=== PATIENT | female | born 1965 | race Caucasian/White ===

== ENCOUNTER → 2016-07-23 | Outpatient (CLI) | payer MEDICAID ==
[~2016-07-23] MED LIST: ACAI; ALBU0.63 IH; ALBU2.5V4 IH; ATOR20TA66 PO; ATR20T PO; ATRV10T PO; BPR150TCR; COMBIVENT; CYCL10TA45; CYCL10TA9 PO; DICL50TA6 PO; DICLOFENAC 50MG; DICY20TA10 PO; DULO30CA48 PO; DULO60CA58 PO; EST.625T; EST5V5 IM; ESTR0.5T PO; ESTR10TA VG; GABA300T23 PO; GBPN300C; GBPN300C PO; HCT; HORMONE SHOT; HSCO125; HYDR-3816 PO; HYDR118S10 PO; HYOS0.1281 SL; IPRA4AER IH; LANS30CA PO; LANS30TA4 PO; LD5PT TP; LIPA1CAP2 PO; LNS30CCR; LORA10TA7 PO; LOSA1TAB69 PO; LOSA50TA36 PO; LRT10T; METH4TAB PO; METO-354 PO; MICARDIS; MTF500T; MTP25TSR; OMEG1CAP58; OMG1KC PO; ONDA4SOL2 PO; ONDN4T PO; PANT20TA3 PO; PNV1CAPS13 PO; PRED1DRO OD; PREG75CA PO; PREN-93 PO; PROM25TA14 PO; RT-COMBINH IH; SCR1T1 PO; SMTR50T; SMTR50T PO; SUCR1TAB PO; TELM1TAB2 PO; TELM40T PO; TIZA2TAB3 PO; ZLP10T; ZOLP10TA5 PO; [UNRECOGNIZED DRUG - CODE] PO; [UNRECOGNIZED DRUG - OTHER]
--- NOTE | 2016-07-23 19:46 | Diagnostic Imaging Report ---
Digital mammogram bilateral diagnostic. INDICATION: Left breast lump. This study was compared to the prior exams of 07/18/15, 07/10/14 and 06/06/13. At this time, the patient does complain of a lump in the left breast. The current study was also evaluated with a Computer Aided Detection (CAD) system. FINDINGS: A marker was placed over the area of concern. There is no primary or secondary sign of malignancy in this region. There are scattered fibroglandular densities in the left breast which could obscure a lesion, however. Ultrasound would be recommended for further study. There are also scattered fibroglandular densities in the right breast. These too could obscure a lesion. When compared to the previous study, there does not appear to have been any significant change. There is no primary or secondary sign of malignancy noted. Reportedly, ultrasound of the right breast has also been scheduled for further evaluation. IMPRESSION: There is no evidence of malignancy. Ultrasound of both breasts is pending for further study. ACR BI-RADS Category 0: Incomplete. (Needs additional imaging evaluation). Result letter will be mailed to the patient. Note: At least 10% of breast cancer is not imaged by mammography. Dictated by: Dictated on workstation # [id number]
--- NOTE | 2016-07-27 20:23 | Diagnostic Imaging Report ---
EXAM: Bilateral breast ultrasound. INDICATION: Left breast mass. By history, the patient has a palpable abnormality in the left breast. The diagnostic mammogram performed earlier today failed to show any sign of malignancy in this region. On this exam, there is no discrete solid or cystic mass within the left breast. It may be that the palpable abnormality in question is related to the fibroglandular tissue in the left breast. However, if there is indeed a clinically palpable mass present, then biopsy should still be considered. The previous right breast ultrasound exam performed on 06/21/12 suggested a 1.5 x 0.6 cm benign-appearing cyst in the 10 o'clock position of the right breast. That finding was not visualized on the subsequent ultrasound exam of 07/10/14. On this study, there is no discrete solid or cystic mass within the right breast. IMPRESSION: There is no evidence for malignancy. Clinical followup is recommended. ACR BI-RADS Category 1: Negative. Result letter will be mailed to the patient. Note: At least 10% of breast cancer is not imaged by mammography. Dictated by: Dictated on workstation # [id number]
== END ==
LOC: RAD 09:10
PROVIDERS: ATTEND Obstetrics & Gynecology
DX: N63 Unspecified lump in breast (principal)
CPT/HCPCS: 77066

== ENCOUNTER → 2016-10-21 | Outpatient (CLI) | payer MEDICAID ==
[2016-10-21 10:20] LABS: ALANINE AMINOTRANSFERASE 24 U/L (0-55); ALBUMIN 3.8 G/DL (3.2-4.5); ANION GAP 8 MMOL/L (5-14); ASPARTATE AMINO TRANSFERASE 29 U/L (5-34); BILIRUBIN,TOTAL 0.3 MG/DL (0.1-1.0); BLOOD UREA NITROGEN 9 MG/DL (7-18); BUN/CREATININE RATIO 10; CALCIUM 9.1 MG/DL (8.5-10.1); CARBON DIOXIDE 37 MMOL/L (21-32); CHLORIDE 98 MMOL/L (98-107); CHOLESTEROL 118 MG/DL (< 200); CREATININE SERUM 0.93 MG/DL (0.60-1.30); DIRECT LDL 56 MG/DL (1-129); GFR ESTIMATED > 60; GLUCOSE 114 MG/DL (70-105); POTASSIUM 2.8 MMOL/L (3.6-5.0); SODIUM 143 MMOL/L (135-145); TOTAL PROTEIN 6.8 G/DL (6.4-8.2); TRIGLYCERIDES 96 MG/DL (<150); VLDL CHOLESTEROL 19 MG/DL (5-40)
== END ==
LOC: LAB 09:31
PROVIDERS: ATTEND Internal Medicine Cardiovascular Disease
DX: E11.9 Type 2 diabetes mellitus without complications (principal); I10 Essential (primary) hypertension; E78.4 Other hyperlipidemia
CPT/HCPCS: 36415; 80053; 80061

== ENCOUNTER → 2016-11-23 | Outpatient (CLI) | payer MEDICAID ==
[2016-11-23 12:01] LABS: ALANINE AMINOTRANSFERASE 15 U/L (0-55); ALBUMIN 4.1 GM/DL (3.2-4.5); ANION GAP 10 MMOL/L (5-14); ASPARTATE AMINO TRANSFERASE 17 U/L (5-34); BILIRUBIN,TOTAL 0.4 MG/DL (0.1-1.0); BLOOD UREA NITROGEN 18 MG/DL (7-18); BUN/CREATININE RATIO 21; CALCIUM 9.7 MG/DL (8.5-10.1); CARBON DIOXIDE 30 MMOL/L (21-32); CHLORIDE 99 MMOL/L (98-107); CHOLESTEROL 143 MG/DL (< 200); CREATININE SERUM 0.87 MG/DL (0.60-1.30); DIRECT LDL 76 MG/DL (1-129); GFR ESTIMATED > 60; GLUCOSE 90 MG/DL (70-105); MAGNESIUM 1.7 MG/DL (1.8-2.4); SODIUM 139 MMOL/L (135-145); TOTAL PROTEIN 7.5 GM/DL (6.4-8.2); TRIGLYCERIDES 109 MG/DL (<150); VLDL CHOLESTEROL 22 MG/DL (5-40)
== END ==
LOC: LAB 11:31
PROVIDERS: ATTEND Physician Assistant
DX: R07.89 Other chest pain (principal); I10 Essential (primary) hypertension; E78.4 Other hyperlipidemia; E11.9 Type 2 diabetes mellitus without complications
CPT/HCPCS: 36415; 80053; 80061; 83735

== ENCOUNTER → 2017-05-03 | Outpatient (CLI) | payer MEDICAID ==
[~2017-05-03] MED LIST changes: +LOSA1TAB20 PO; -LOSA1TAB69 PO
--- NOTE | 2017-05-03 16:07 | Diagnostic Imaging Report ---
PA and lateral views of the chest Indication: Central choroidal atrophy. Evaluate for possible TB Findings: The lungs are clear. The heart size is normal. There is no effusion or pneumothorax The mediastinum and anuj appear unremarkable. Impression: Unremarkable study. No evidence of pulmonary TB. Dictated by: Dictated on workstation # [id number]
[2017-05-04 08:02] LABS: RAPID PLASMA REAGIN Non Reactive
[2017-05-04 18:35] LABS: TB GOLD MITOGEN-NIL VALUE >10.00 IU/mL (0.50-10.00); TB GOLD QUANTIFERON INTERP Negative (Negative)
[2017-05-05 16:13] LABS: TB GOLD NIL VALUE 0.12 IU/mL (0.00-7.99); TB GOLD TB ANTIGEN-NIL VALUE <0.00 IU/mL (0.00-0.34)
== END ==
LOC: RAD 15:40
PROVIDERS: ATTEND Ophthalmology
DX: H31.2 Hereditary choroidal dystrophy (principal)
CPT/HCPCS: 36415; 71020; 86480; 86592; 86780

== ENCOUNTER → 2017-07-11 | Outpatient (CLI) | payer MEDICAID ==
[~2017-07-11] MED LIST changes: +HYDR-34 PO; -HYDR-3816 PO
--- NOTE | 2017-07-11 13:03 | Diagnostic Imaging Report ---
INDICATION: Routine screening. COMPARISON: 07/23/2016 and 07/18/2015. TECHNIQUE: Screening digital mammography was performed bilaterally with a Computer Aided Detection (CAD) system. FINDINGS: Scattered fibroglandular densities are identified bilaterally. There are benign calcifications in both breasts. No spiculated mass or malignant appearing microcalcifications are seen. The axillae are unremarkable. IMPRESSION: No mammographic features suspicious for malignancy are identified. ACR BI-RADS Category 2: Benign findings. Result letter will be mailed to the patient. Note: At least 10% of breast cancer is not imaged by mammography. Dictated by: Dictated on workstation # [id number]
== END ==
LOC: RAD 09:29
PROVIDERS: ATTEND Obstetrics & Gynecology
DX: Z12.31 Encounter for screening mammogram for malignant neoplasm of breast (principal)
CPT/HCPCS: 77067

== ENCOUNTER → 2017-10-31 | Outpatient (CLI) | payer MEDICAID ==
--- NOTE | 2017-10-31 13:10 | Diagnostic Imaging Report ---
PROCEDURE: MR imaging of the brain without contrast. TECHNIQUE: Multiplanar, multisequence MR imaging of the brain was performed without contrast. INDICATION: Visual problems with lack of vision in the right eye. The patient has an autoimmune disorder which affects vision. FINDINGS: Examination is compromised due to motion. Ventricles and sulci are within normal limits. No hydrocephalus. No midline shift. There is no intracranial mass, hemorrhage or extra-axial fluid collection. There are no areas of diffusion restriction appreciated to suggest an acute CVA. Sinuses and mastoid air cells are clear. Globes and intraorbital structures are grossly unremarkable. The central arterial and dural venous sinus flow voids are preserved. The infundibulum is midline. Midline structures are grossly unremarkable. IMPRESSION: Unremarkable noncontrast MRI brain. Dictated by: Dictated on workstation # [id number]
== END ==
LOC: RAD 11:26
PROVIDERS: ATTEND Ophthalmology
DX: H31.2 Hereditary choroidal dystrophy (principal); D89.89 Other specified disorders involving the immune mechanism, not elsewhere classified
CPT/HCPCS: 70551

== ENCOUNTER → 2018-03-07 | Outpatient (CLI) | payer MEDICAID ==
[~2018-03-07] MED LIST changes: -LOSA50TA36 PO; +LOSA50TA7 PO
== END ==
LOC: CARD 08:39
PROVIDERS: ATTEND Physician Assistant
DX: K21.9 Gastro-esophageal reflux disease without esophagitis (principal); I10 Essential (primary) hypertension; E11.9 Type 2 diabetes mellitus without complications; M06.9 Rheumatoid arthritis, unspecified
CPT/HCPCS: 93306

== ENCOUNTER → 2018-03-08 | Outpatient (CLI) | payer MEDICAID ==
[~2018-03-08] VITALS: Ht 154.9 cm; Wt 98.4 kg
[~2018-03-08] MED LIST changes: +REGADENOSON 0.4 MG/5 ML SYR (LEXISCAN) IV ONE
[2018-03-08] MEDS: CATHETER FLUSH 10 ML SYR IV PRN ×2 (07:14→09:08)
[2018-03-08 09:06] VITALS: BP 140/96
--- NOTE | 2018-03-08 14:00 | STRESS TEST ---
DATE OF SERVICE: 03/08/2018 LEXISCAN MYOVIEW STRESS TEST REPORT Baseline heart rate is 74, baseline blood pressure 140/96. Baseline EKG is sinus rhythm with no ischemic changes. In summary, the patient was injected with 10.48 mCi of technetium-99 Myoview and the resting images were obtained. Then, the patient received 0.4 mg of Lexiscan followed by 31.4 mCi of technetium-99 Myoview. Throughout the test, there were no EKG changes. The resting and stressed images were reviewed and compared in the short axis, horizontal long axis, and vertical long axis views. Review of the images showed breast attenuation with decreased uptake involving the whole anterior wall and anterolateral wall, SSS is 11, SDS 9, TID value 1.08. On the gated images, the left ventricle appeared to be in normal size with normal contractility. Calculated ejection fraction is 67%. CONCLUSION: 1. The patient tolerated Lexiscan well. 2. Breast attenuation with reversible ischemia involving the whole anterior wall, anterolateral wall and anterior apex. 3. Normal left ventricular size with normal contractility. Calculated ejection fraction is 67%. Job ID: [id number] DocumentID: [id number] Dictated Date: 03/08/2018 13:45:06 Site Acquisition Manager Date: 03/08/2018 14:00:14 Dictated By: EMILEE RODRÍGUEZ MD
== END ==
LOC: CARD 06:41
PROVIDERS: ATTEND Physician Assistant
DX: I10 Essential (primary) hypertension (principal); E11.9 Type 2 diabetes mellitus without complications; K21.9 Gastro-esophageal reflux disease without esophagitis; M06.9 Rheumatoid arthritis, unspecified
CPT/HCPCS: 78452; 93017

== ENCOUNTER 2018-03-15 10:32 | Day surgery (SDC) | payer MEDICAID ==
[~2018-03-15] VITALS: Ht 154.9 cm; Wt 98.9 kg
[~2018-03-15 10:32] MED LIST changes: -REGADENOSON 0.4 MG/5 ML SYR (LEXISCAN) IV ONE
[2018-03-15] MEDS ORDERED: NS IV 1000 ML 1,000 ML ONE (10:36)
[2018-03-15] MEDS ORDERED: HEParin (CATH LAB) 2,000 ML IV ONE (10:36)
[2018-03-15] MEDS ORDERED: LIDOCAINE 1% INJ 20 ML 20 ML VIAL ONE (10:36)
--- OUTSIDE RECORDS SUMMARY | 2018-03-15 10:36 | XMS REPORT | Encounter Summary ---
Author Author [facility] Organization [facility] Address Unknown Phone Unavailable Care Team Providers Care Cookie Padder Name Role Phone AndreiLorin MOLD STRIPPER PCP Encounter Details Date Type Department Care Team Description 01/18/2018 Orders Only [facility] Petr Harris LPN Serpiginous choroiditis; Physicians - Internal Therapeutic drug Medicine monitoring [facility] [address] [place] [address] Social History Tobacco Use Types Packs/Day Years Used Date Never Smoker Smokeless Tobacco: Never Used Sex Assigned at Date Recorded Not on file as of this encounter Plan of Treatment Not on fileas of this encounter Procedures Procedure Name Priority Date/Time Associated Diagnosis Comments CBC AND DIFF Routine 01/12/2018 Serpiginous choroiditis 12:00 AM CDT Therapeutic drug monitoring ALT (SGPT) Routine 01/12/2018 Serpiginous choroiditis 12:00 AM CDT Therapeutic drug monitoring CREATININE Routine 01/12/2018 Serpiginous choroiditis 12:00 AM CDT Therapeutic drug monitoring in this encounter Results * ALT (SGPT) (01/12/2018) ALT (SGPT) OTHER OUTSIDE LAB Specimen Blood - Blood Narrative Performed At Performing Organization Address City/[facility]/Zipcode Phone Number OTHER OUTSIDE LAB * CREATININE (01/12/2018) Creatinine OTHER OUTSIDE LAB Specimen Blood - Blood Narrative Performed At Performing Organization Address City/State/Zipcode Phone Number OTHER OUTSIDE LAB * CBC AND DIFF (01/12/2018) White Blood Cells OTHER OUTSIDE LAB RBC OTHER OUTSIDE LAB Hemoglobin OTHER OUTSIDE LAB Hematocrit OTHER OUTSIDE LAB MCV OTHER OUTSIDE LAB [facility] OTHER OUTSIDE LAB [facility] OTHER OUTSIDE LAB Platelet Count OTHER OUTSIDE LAB MPV OTHER OUTSIDE LAB RDW OTHER OUTSIDE LAB Neutrophils OTHER OUTSIDE LAB Absolute Neutrophil Count OTHER OUTSIDE LAB Lymphocytes OTHER OUTSIDE LAB Absolute Lymph Count OTHER OUTSIDE LAB Monocytes OTHER OUTSIDE LAB Absolute Monocyte Count OTHER OUTSIDE LAB Eosinophil OTHER OUTSIDE LAB Absolute Eosinophil Count OTHER OUTSIDE LAB Basophils OTHER OUTSIDE LAB Absolute Basophil Count OTHER OUTSIDE LAB Atypical Lym OTHER OUTSIDE LAB Metamyelocyte OTHER OUTSIDE LAB Myelocyte OTHER OUTSIDE LAB Promyelocyte OTHER OUTSIDE LAB Blast OTHER OUTSIDE LAB RBC Morph OTHER OUTSIDE LAB WBC Morphology OTHER OUTSIDE LAB Specimen Blood - Blood Narrative Performed At Performing Organization Address City/State/Zipcode Phone Number OTHER OUTSIDE LAB in this encounter Visit Diagnoses Diagnosis Serpiginous choroiditis Therapeutic drug monitoring Encounter for therapeutic drug monitoring
--- OUTSIDE RECORDS SUMMARY | 2018-03-15 10:36 | XMS REPORT | Clinical Summary ---
Author Author [facility] Organization [facility] Address Unknown Phone Unavailable Care Team Providers Care Sprinkler Fitter Apprentice Name Role Phone Mariann Forbesa RESTAURANT MANAGER PCP Source Comments Some departments are not documenting in the electronic medical record. If you do not see the information that you expected, contact Release of Information in the Health Information Management department at [phone] for further assistance in locating additional records.[facility] Allergies Active Allergy Reactions Severity Noted Date Comments Aspirin HIVES Medium 06/27/2017 Codeine HIVES Medium 06/27/2017 Iodine SEE COMMENTS Low 06/27/2017 Difficulty breathing Latex HIVES Medium 06/27/2017 Shellfish Containing UNKNOWN Low 06/27/2017 Products [place] UNKNOWN Low 06/27/2017 Sulfa (Sulfonamide UNKNOWN Low 08/30/2017 Antibiotics) Tomato UNKNOWN Low 06/27/2017 Current Medications Prescription Sig. Disp. Refills Start End Date Status Date tiZANidine (ZANAFLEX) 2 Take 2 mg by mouth twice Active mg tablet daily. loratadine (CLARITIN) 10 Take 10 mg by mouth every Active mg tablet morning. lamoTRIgine (LAMICTAL) Take 200 mg by mouth Active 200 mg tablet daily. atorvastatin (LIPITOR) 20 Take 20 mg by mouth Active mg tablet daily. doxepin (SINEQUAN) 10 mg Take 10 mg by mouth at Active capsule bedtime daily. dicyclomine (BENTYL) 20 Take 20 mg by mouth four Active mg tablet times daily. SUMAtriptan succinate Take 50 mg by mouth as Active (IMITREX) 50 mg tablet Needed for Migraine symptoms. Dose may be repeated in 2 hours if needed. Max of 2 tablets in [address] (CYMBALTA) Take 90 mg by mouth Active 30 mg capsule daily. ipratropium bromide Inhale 1 puff by mouth Active (ATROVENT HFA) 17 into the lungs four times mcg/actuation inhaler daily as needed. ALBUTEROL SULFATE IN Inhale 0.083 % by mouth Active into the lungs every 4-6 hours as needed. naltrexone-bupropion 8-90 Take by mouth twice Active mg TbER daily. estradiol (ESTRACE) 1 mg Take 1 mg by mouth daily. Active tablet DOCOSAHEXANOIC ACID/EPA Take by mouth three Active (FISH OIL PO) times daily. Fluocinolone 0.01 % crea Apply topically to Active affected area twice daily as needed. gabapentin (NEURONTIN) Take 300 mg by mouth Active 300 mg capsule three times daily. losartan-hydrochlorothiaz Take 1 tablet by mouth Active gail (HYZAAR) 50-12.5 mg every morning. tablet levothyroxine (SYNTHROID) Take 25 mcg by mouth Active 25 mcg tablet daily 30 minutes before breakfast. prednisone (DELTASONE) 20 Take 20 mg by mouth twice Active mg tablet daily with meals. sucralfate (CARAFATE) 1 Take 1 g by mouth four Active gram tablet times daily. Take on an empty stomach. atovaquone (MEPRON) 750 Take 10 mL by mouth daily 210 mL 3 09/02/19 Active mg/5 mL oral suspension with breakfast. 18 Active Problems No known active problems Encounters Date Type Specialty Care Team Description 01/18/2018 Orders Only Allergy,Immunology and Petr Harris LPN Serpiginous choroiditis; Rheumatology Therapeutic drug monitoring from Last 3 Months Family History Medical History Relation Name Comments Hypertension Father Diabetes Mother Thyroid Disease Mother Relation Name Status Comments Father Mother Social History Tobacco Use Types Packs/Day Years Used Date Never Smoker Smokeless Tobacco: Never Used Sex Assigned at Date Recorded Not on file Last Filed Vital Signs Vital Sign Reading Time Taken Blood Pressure 136/84 08/30/2017 10:22 AM CDT Pulse 93 08/30/2017 10:22 AM CDT Temperature 36.7 C (98 F) 08/30/2017 10:22 AM CDT Respiratory Rate 19 07/28/2017 7:56 AM CDT Oxygen Saturation 96% 08/30/2017 10:22 AM CDT Inhaled Oxygen - - Concentration Weight 102.5 kg (226 lb) 08/30/2017 10:22 AM CDT Height 154.9 cm (5' 1") 08/30/2017 10:22 AM CDT Body Mass Index 42.7 08/30/2017 10:22 AM CDT Plan of Treatment Health Maintenance Due Date Last Done Comments PHYSICAL (COMPREHENSIVE) 1973 EXAM PERTUSSIS VACCINE 1977 HIV SCREENING 1981 TETANUS VACCINE 11/27/1983 CERVICAL CANCER SCREENING 1996 BREAST CANCER SCREENING 2006 COLORECTAL CANCER 2016 SCREENING SHINGLES RECOMBINANT 2016 VACCINE (1 of 2) INFLUENZA VACCINE 12/14/2017 Procedures Procedure Name Priority Date/Time Associated Diagnosis Comments ALT (SGPT) Routine 01/12/2018 Serpiginous choroiditis 12:00 AM CDT Therapeutic drug monitoring CREATININE Routine 01/12/2018 Serpiginous choroiditis 12:00 AM CDT Therapeutic drug monitoring CBC AND DIFF Routine 01/12/2018 Serpiginous choroiditis 12:00 AM CDT Therapeutic drug monitoring from Last 3 Months Results * CBC AND DIFF (01/12/2018) White Blood [...] City/State/Zipcode Phone Number OTHER OUTSIDE LAB * ALT (SGPT) (01/12/2018) ALT (SGPT) OTHER OUTSIDE LAB Specimen Blood - Blood Narrative Performed At Performing Organization Address City/State/Zipcode Phone Number OTHER OUTSIDE LAB * CREATININE (01/12/2018) Creatinine OTHER OUTSIDE LAB Specimen Blood - Blood Narrative Performed At Performing Organization Address City/State/Zipcode Phone Number OTHER OUTSIDE LAB from Last 3 Months
--- OUTSIDE RECORDS SUMMARY | 2018-03-15 10:37 | XMS REPORT ---
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 Active 554419887 Problem Visual disturbance H53.9 Active 94538823 Problem Rheumatoid arthritis involving multiple sites with positive rheumatoid factor M05.79 Active 249636157 Problem Bilateral low back pain with sciatica, sciatica laterality unspecified M54.40 Active 608372413 Problem Hypokalemia E87.6 Active 98878833 Problem Lumbago with sciatica, left side M54.42 Active 859670869 Problem Other chronic pain G89.29 Active 86296219 Problem Anxiety F41.9 Active 09271650 Problem Blindness of right eye H54.40 Active 182119350 Problem Posttraumatic stress disorder F43.10 Active 50996818 Problem Overdose T50.901A Active 32049887 Problem Bipolar disorder F31.9 Active 81332110 Problem Borderline personality disorder F60.3 Active 84930076 Problem Obstructive sleep apnea G47.33 Active 58986047 Problem Acquired hypothyroidism E03.9 Active 391786534 Problem Pelvic pain R10.2 Active 91381068 Problem Chronic pain G89.29 Active 23154740 Problem Gastro-esophageal reflux disease without esophagitis K21.9 Active 188335717 Problem Anemia due to other cause, not classified D64.89 Active 040699381 Problem Social anxiety disorder F40.10 Active 90649092 Problem Morbid obesity, unspecified obesity type E66.01 Active 865912027 ALLERGIES No Information ENCOUNTERS Encounter Location Date Diagnosis [facility] [address] 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 and Bipolar disorder F31.9 [place] [id number] [place] [address] 02183- 4595 Feb, Bipolar disorder F31.9 ; Posttraumatic stress disorder F43.10 and Borderline personality disorder F60.3 [place] [id number] [place] [address] 885797- 0620 Jan, [place] [id number] [place] [address] 25444- 2078 Dec, Bipolar disorder F31.9 ; Posttraumatic stress disorder F43.10 and Borderline personality disorder F60.3 [place] [id number] [place] [address] 36592- 1953 Dec, 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 ; Anemia due to other cause, not classified D64.89 ; Rheumatoid arthritis involving multiple sites with positive rheumatoid factor M05.79 ; 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 ; Dysuria R30.0 ; Urinary tract infection without hematuria, site unspecified N39.0 and Blindness of right eye H54.40 [place] [address] [place] [address] 75362- 3396 Dec, [place] [address] [place] [address] 18649- 1322 Dec, [place] [address] [id number] [id number] Dec, Dental examination Z01.20 [place] [address] [place] [address] 56501- 6262 Nov, Bipolar disorder F31.9 ; Posttraumatic stress disorder F43.10 and Borderline personality disorder F60.3 [place] [address] [place] [address] 51345- 4324 Nov, Rheumatoid arthritis involving multiple sites with positive rheumatoid factor M05.79 ; Dysuria R30.0 and Blindness of right eye H54.40 [place] [id number] [place] [address] 71571- 7643 Nov, Bipolar disorder F31.9 ; Posttraumatic stress disorder F43.10 ; Social anxiety disorder F40.10 and Relationship problem with family member Z63.8 [place] [id number] [place] [address] 57239- 5603 Nov, [place] [address] 38809- 5395 Nov, [place] [id number] [place] [address] 61191- 8701 Nov, 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 ; Adverse effect of antineoplastic and immunosuppressive drugs, initial encounter T45.1X5A ; Anemia , unspecified D64.9 and BMI 40.0-44.9, adult Z68.41 [place] [id number] [place] [address] 51000- 7530 Nov, Anemia due to other cause, not classified D64.89 [place] [id number] [place] [address] 73353- 7641 Oct, Adverse effect of drug, initial encounter T50.905A and Acute anemia D64.9 [place] [id number] [place] [address] 07204- 8972 Oct, Anemia due to other cause, not classified D64.89 ; Dysuria R30.0 and Urinary tract infection without hematuria, site unspecified N39.0 [place] [address] [place] [address] 07518- 0922 Oct, [place] [id number] [place] [address] 71201- 8894 Oct, [place] [address] [address]- 7421 Oct, 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 [facility] [id number] [id number] Oct, [facility] [address] [address]- 7993 Oct, [facility] [address] [place] [address] 92915- 3665 Oct, [facility] [address] [place] [address] 56123- 0096 Oct, Bipolar disorder F31.9 ; Posttraumatic stress disorder F43.10 and Borderline personality disorder F60.3 [place] [address] [place] [address] 28328- 0986 Oct, Rheumatoid arthritis involving multiple sites with positive rheumatoid factor M05.79 ; 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 and Anxiety F41.9 [facility] [address] [address]- 1301 Oct, [place] [address] [place] [address] 33907- 2341 September, 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 [facility] [address] [address]- 8598 September, Bipolar disorder F31.9 ; Posttraumatic stress disorder F43.10 and Borderline personality disorder F60.3 [facility] [address] [address]- 5432 Aug, BMI 40.0-44.9, adult Z68.41 ; Bipolar disorder F31.9 ; Posttraumatic stress disorder F43.10 and Social anxiety disorder F40.10 [facility] [id number] [address]- 2401 Aug, Bipolar disorder F31.9 ; Posttraumatic stress disorder F43.10 and Borderline personality disorder F60.3 [facility] [id number] [place] [address] 74637- 1420 Aug, 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 [place] [id number] [place] [address] 73709- 6656 Jul, Bipolar disorder F31.9 ; Posttraumatic stress disorder F43.10 and Borderline personality disorder F60.3 [place] [id number] [place] [address] 16907- 7194 Jul, [place] [id number] [place] [address] 03864- 4635 Jun, Bipolar disorder F31.9 ; Posttraumatic stress disorder F43.10 and Borderline personality disorder F60.3 [place] [id number] [place] [address] 11200- 0616 Jun, Blindness of right eye H54.40 and Acquired hypothyroidism E03.9 [place] [id number] [place] [address] 14209- 1184 Jun, [place] [id number] [place] [address] 28425- 4800 May, Posttraumatic stress disorder F43.10 ; Social anxiety disorder F40.10 and Bipolar disorder F31.9 [place] [address] [place] [address] 54289- 1561 May, Bipolar disorder F31.9 ; Posttraumatic stress disorder F43.10 and Borderline personality disorder F60.3 [place] [address] [place] [address] 05888- 7373 May, [place] [address] [place] [address] 52036- 4010 May, [place] [address] [place] [address] 44741- 2523 Apr, Bipolar disorder F31.9 ; Posttraumatic stress disorder F43.10 and Borderline personality disorder F60.3 [place] [id number] [place] [address] [id number] Apr, [place] [address] [address]- 1344 Apr, [place] [id number] [place] [address] 30850- 9984 Mar, Hydradenitis L73.2 [facility] [address] [place] [address] 80000- 9485 15 Mar, 2017 Lumbago with sciatica, left side M54.42 ; Other chronic pain G89.29 ; Morbid obesity, unspecified obesity type E66.01 ; Hydradenitis L73.2 and BMI 40.0-44.9, adult Z68.41 [place] [address] [place] [address] 19187- 0180 07 Mar, 2017 Bipolar disorder F31.9 ; Posttraumatic stress disorder F43.10 and Borderline personality disorder F60.3 [address] [place] [address] 47508- 6656 Mar, Social anxiety disorder F40.10 ; Bipolar disorder F31.9 and Relationship problem with family member Z63.8 [place] [id number] [place] [address] 17422- 3120 Mar, [place] [address] [id number] [id number] Mar, Dental examination Z01.20 [place] [address] [place] [address] 04162- 3250 Mar, [place] [address] [place] [address] 75733- 8561 Feb, Bipolar disorder F31.9 ; Posttraumatic stress disorder F43.10 and Borderline personality disorder F60.3 [facility] [id number][place] [id number] Feb, [place] [address] [place] [address] 18935- 2139 14 Jan, 2017 Bipolar disorder F31.9 ; Posttraumatic stress disorder F43.10 and Borderline personality disorder F60.3 [facility] [address] [id number] [id number] Jan, [facility] [address], [place] [address]- 9092 Jan, [facility] [id number][place] [id number] Jan, [facility] [id number] [place] [address] 57838- 5542 Dec, Bipolar disorder F31.9 ; Posttraumatic stress disorder F43.10 and Borderline personality disorder F60.3 [facility] [id number] [place] [address] 63441- 3719 Dec, [facility] [id number] [place] [address] 95610- 7787 Dec, [facility] [address] [place] [address] [id number] Dec, [facility] [address] [place] [address] 06969- 8756 Nov, Bipolar 1 disorder F31.9 ; Posttraumatic stress disorder F43.10 and Social anxiety disorder F40.10 [facility] [address] [place] [address] 88813- 7196 Nov, Bipolar disorder F31.9 ; Posttraumatic stress disorder F43.10 and Borderline personality disorder F60.3 [facility] [address] [address]- 8027 Nov, Morbid obesity, unspecified obesity type E66.01 [facility] [address] [address]- 1712 Nov, [facility] [address] [place] [address] [id number] [id number] Oct, Encounter for dental examination and cleaning without abnormal findings Z01.20 [facility] [address] [place] [address] 06736- 5453 Oct, Morbid obesity, unspecified obesity type E66.01 and Acute seasonal allergic rhinitis due to pollen J30.1 [place] [id number] [place] [address] 01198- 9414 Oct, Bipolar disorder F31.9 ; Posttraumatic stress disorder F43.10 and Borderline personality disorder F60.3 [place] [id number] [place] [address] 66129- 6251 September, Morbid obesity, unspecified obesity type E66.01 and Psoriasis L40.9 [place] [address] 74155- 6737 September, Bipolar disorder F31.9 ; Posttraumatic stress disorder F43.10 and Borderline personality disorder F60.3 [place] [id number] [place] [address] 97036- 6788 September, Chronic pain G89.29 [place] [address] 78894- 6803 Aug, Other acute nonsuppurative otitis media of right ear H65.191 and Morbid obesity, unspecified obesity type E66.01 [place] [id number] [place] [address] 43081- 5424 Aug, Bipolar 1 disorder F31.9 ; Posttraumatic stress disorder F43.10 and Social anxiety disorder F40.10 [place] [id number] [place] [address] 99070- 9416 Aug, Bipolar disorder F31.9 ; Posttraumatic stress disorder F43.10 and Borderline personality disorder F60.3 [place] [id number] [place] [address] 04524- 3668 Jul, Morbid obesity due to excess calories E66.01 ; Gastro- esophageal reflux disease without esophagitis K21.9 and Chronic pain G89.29 [place] [id number] [place] [address] 87913- 8059 Jul, Morbid obesity due to excess calories E66.01 [facility] [address] [address]- 7768 Jul, [facility] [address] [place] [address] 09552- 0655 Jul, [facility] [address] [place] [address] 30459- 8876 Jul, Morbid obesity due to excess calories E66.01 [facility] [id number] [place] [address] 26881- 3841 Jul, Bipolar disorder F31.9 ; Posttraumatic stress disorder F43.10 and Borderline personality disorder F60.3 [facility] [id number] [place] [address] 62151- 5071 16 Jun, 2016 [facility] [id number] [place] [address] 91603- 4462 Jun, Morbid obesity due to excess calories E66.01 [facility] [address] [place] [address] 62427- 9729 Jun, [facility] [address] [place] [address] 61814- 4912 Jun, Morbid obesity, unspecified obesity type E66.01 [facility] [address] [place] [address] 10004- 5581 Jun, Bipolar disorder F31.9 ; Posttraumatic stress disorder F43.10 and Borderline personality disorder F60.3 [facility] [address] [address]- 1762 Jun, [facility] [address] [place] [address] 24196- 7129 Jun, [facility] [id number] [place] [address] 30558- 7711 02 Jun, 2016 Acquired hypothyroidism E03.9 and Morbid obesity due to excess calories E66.01 [facility] [id number] [place] [address] 54560- 6568 May, Bipolar disorder F31.9 ; Posttraumatic stress disorder F43.10 and Borderline personality disorder F60.3 [facility] [address] [place] [address] 27077- 5585 13 Apr, 2016 Bipolar 1 disorder F31.9 ; Posttraumatic stress disorder F43.10 and Social anxiety disorder F40.10 [place] [id number] [address] 12 Apr, 2016 Encounter for dental examination Z01.20 [facility] [address] [place] [address] 48371- 7173 08 Apr, 2016 [facility] [id number] [place] [address] 33013- 1312 08 Apr, 2016 Acquired hypothyroidism E03.9 [facility] [id number] [place] [address] 45618- 0092 07 Apr, 2016 Acquired hypothyroidism E03.9 [facility] [id number] [place] [address] 30574- 2113 07 Apr, 2016 Bipolar disorder F31.9 ; Posttraumatic stress disorder F43.10 and Borderline personality disorder F60.3 [facility] [address] [place] [address] 38375- 7142 06 Apr, 2016 Acquired hypothyroidism E03.[address] [id number] [id number] Mar, Encounter for dental examination and cleaning without abnormal findings Z01.20 [facility] [address] [place] [address] 56232- 5021 08 Mar, 2016 [facility] [id number] [place] [address] 576416- 1062 Mar, Bipolar disorder F31.9 ; Posttraumatic stress disorder F43.10 and Borderline personality disorder F60.3 [facility] [address] [place] [address] 59652- 9113 03 Mar, 2016 Essential (primary) hypertension I10 [facility] [address] [address]- 4524 21 Feb, 2016 [facility] [id number] [place] [address] 49772- 9783 14 Feb, 2016 [facility] [address] [place] [address] 00154- 8617 11 Feb, 2016 Pelvic pain R10.2 ; Lipid screening Z13.220 ; Fatigue, unspecified type R53.83 and Weight gain R63.5 [place] [address] [place] [address] 05996- 3765 11 Feb, 2016 Bipolar disorder F31.9 ; Posttraumatic stress disorder F43.10 and Borderline personality disorder F60.3 [place] [address] [place] [address] 91275- 9354 07 Feb, 2016 [place] [id number] [place] [address] 05535- 0675 05 Feb, 2016 [facility] [id number] [place] [address] 71423- 8121 30 Jan, 2016 Obstructive sleep apnea syndrome G47.33 [place] [id number] [place] [address] 94332- 5733 26 Jan, [address] [id number] [id number] 19 Jan, 2016 Dental examination Z01.20 [place] [address] [place] [address] 33657- 2456 13 Jan, 2016 Bipolar 1 disorder F31.9 ; Posttraumatic stress disorder F43.10 and Social anxiety disorder F40.10 [place] [id number] [place] [address] 57315- 7732 13 Jan, 2016 Bipolar disorder F31.9 ; Posttraumatic stress disorder F43.10 and Borderline personality disorder F60.3 [place] [address] [place] [address] 18134- 8209 13 Jan, 2016 Sciatica of left side M54.32 [facility] [address] [place] [address] 33972- 2444 Jan, [facility] [id number] [place] [address] 02663- 4208 Dec, [facility] [id number] [place] [address] 69891- 8461 Dec, [facility] [id number] [place] [address] 40313- 0764 Dec, Bipolar disorder F31.9 ; Posttraumatic stress disorder F43.10 and Borderline personality disorder F60.3 [facility] [id number] [place] [address] 86333- 2165 Nov, [facility] [id number] [place] [address] 05263- 1052 Nov, Insomnia, unspecified type G47.00 [facility] [id number] [place] [address] 95469- 1817 Nov, Bipolar disorder F31.9 ; Posttraumatic stress disorder F43.10 and Borderline personality disorder F60.3 [facility] [id number] [place] [address] 19369- 9442 Nov, [facility] [id number] [place] [address] 28753- 7520 Nov, [facility] [id number] [place] [address] 94962- 9901 Oct, Bipolar disorder F31.9 ; Posttraumatic stress disorder F43.10 and Borderline personality disorder F60.3 [facility] [id number] [place] [address] 19562- 7822 Oct, [facility] [id number] [place] [address] 53668- 8720 Oct, Essential (primary) hypertension I10 [facility] [id number] [place] [address] 24017- 5139 September, Bipolar 1 disorder F31.9 ; Posttraumatic stress disorder F43.10 and Social anxiety disorder F40.10 [facility] [address] [place] [address] 95956- 4532 September, Bipolar disorder F31.9 ; Posttraumatic stress disorder F43.10 and Borderline personality disorder F60.3 [place] [address] [id number] [id number] September, Encounter for dental examination and cleaning without abnormal findings Z01.20 [facility] [id number] [place] [address] 48787- 7011 September, [facility] [id number] [place] [address] 46279- 4995 September, [facility] [id number] [place] [address] 09954- 1240 Aug, [facility] [id number] [place] [address] 72694- 0489 Aug, Bipolar disorder F31.9 ; Posttraumatic stress disorder F43.10 and Borderline personality disorder F60.3 [facility] [id number] [place] [address] 12834- 6222 Aug, [facility] [address] [place] [address] 74377- 5294 Aug, [facility] [address] [place] [address] 57028- 3754 Aug, [facility] [id number] [place] [address] [id number] Jul, Acute nasopharyngitis [common cold] J00 and Other viral agents as the cause of diseases classified elsewhere B97.89 [facility] [address] [place] [address] 07188- 1878 Jul, Chronic pain G89.29 and Allergic rhinitis J30.9 [facility] [id number] [place] [address] 20563- 6236 Jul, Bipolar 1 disorder F31.9 ; Posttraumatic stress disorder F43.10 and Social anxiety disorder F40.10 [facility] [address] [address]- 8486 16 Jul, 2015 Bipolar 1 disorder F31.9 [facility] [address] [address] 2546 16 Jul, 2015 Bipolar disorder F31.9 ; Posttraumatic stress disorder F43.10 and Borderline personality disorder F60.3 [facility] [address] [address] 2546 14 Jul, 2015 [facility] [id number] [place] [address] 71937- 2046 14 Jul, 2015 [facility] [id number] [place] [address] 57350- 5047 11 Jul, 2015 [facility] [id number] [place] [address] 87738- 9685 10 Jul, 2015 Anxiety F41.9 [facility] [id number] [place] [address] 30163- 5457 10 Jul, 2015 Chronic pain G89.29 and Encounter for therapeutic drug level monitoring Z51.81 [facility] [id number] [place] [address] 76861- 0123 09 Jul, 2015 Chronic pain G89.29 and Encounter for therapeutic drug level monitoring Z51.81 [facility] [id number] [address] 2546 08 Jul, 2015 [facility] [id number] [address] 2546 19 Jun, 2015 [facility] [id number] [place] [address] 46570 2546 Jun, [facility] [id number] [address] 2546 15 Jun, 2015 [facility] [id number] [place] [address] 49240- 5082 15 Jun, 2015 [facility] [id number] [place] [address] [phone]- 7956 Jun, High risk medication use V58.69 [facility] [facility] [id number] [place] [address] 39867- 0766 Jun, [facility] [id number] [place] [address] 70888- 1172 Jun, Bipolar 1 disorder F31.9 ; Overdose T50.901A and Chronic pain G89.29 [facility] [id number] [place] [address] 84932- 2700 Jun, Bipolar disorder F31.9 ; Posttraumatic stress disorder F43.10 and Borderline personality disorder F60.3 [facility] [id number] [place] [address] 21037- 7069 Jun, [facility] [id number] [place] [address] 17062- 6719 Jun, [facility] [id number] [place] [address] 63899- 0950 Jun, Keloid L91.0 [facility] [id number] [place] [address] 51410- 2586 Jun, [facility] [id number] [place] [address] 00409- 8469 May, [facility] [id number] [place] [address] 30484 2546 May, [facility] [id number] [place] [address] 61381- 5006 May, Pelvic pain R10.2 [facility] [id number] [place] [address] 12806- 2656 May, [facility] [id number] [place] [address] 85973- 2743 May, Pain of left thumb M79.645 ; Incisional pain R20.8 ; Pelvic pain R10.2 and Essential hypertension I10 [facility] [address] [facility] [id number] [address] 5059 May, [facility] [id number] [address] 0121 May, [address] [id number] [address] May, Dental examination Z01.20 and Necrosis of pulp K04.1 [facility] [id number] [place] [address] 06905- 5926 Apr, [facility] [id number] [place] [address] 31761- 0711 Apr, [facility] [id number] [place] [address] 48044- 4951 Apr, [facility] [id number] [place] [address] 02522- 0600 Apr, [facility] [id number] [place] [address] 43741- 4068 Apr, [facility] [id number] [place] [address] 61846- 5948 Apr, [facility] [id number] [place] [address] 96663- 2973 Apr, [facility] [id number] [place] [address] 43907- 1702 Apr, [facility] [id number] [place] [address] 06318- 3763 Mar, [facility] [id number] [place] [address] 45747- 2375 Mar, [facility] [address] [address]- 3864 Mar, [facility] [id number] [address]- 1170 Mar, [facility] [address] [address]- 7819 Feb, [facility] [address] [address]- 2577 Feb, [facility] [address] [address]- 0158 Feb, [facility] [id number] [place] [address] 59560- 3032 Feb, [facility] [id number] [place] [address] 37351- 6895 Feb, [facility] [id number] [place] [address] 58230- 1988 Feb, [facility] [id number] [place] [address] 42104- 8934 Feb, [facility] [address] [address]- 6608 Feb, Dermatofibroma of left lower leg D23.72 [facility] [id number] [place] [address] 26523- 9659 Feb, Hematochezia 578.1 ; Low back pain M54.5 ; High risk medication use V58.69 ; Cervicalgia M54.2 and Anxiety F41.9 [facility] [address] [id number] [id number] Feb, Dental examination Z01.20 ; Pulpitis K04.0 and Dental caries, unspecified K02.9 [facility] [address] [id number] [address] Feb, Dental examination Z01.20 [facility] [address] [id number] [address]- 6414 Jan, [facility] [id number] [place] [address] 80880- 6692 Jan, [facility] [address] [id number] [place] [address]- 0895 Jan, [facility] [address] [id number] [place] [address]- 2656 Jan, [facility] [address] [id number] [place] [address]- 2040 Dec, [facility] [address] [id number] [place] [address]- 4133 Dec, [facility] [address] [id number] [place] [address]- 4195 Dec, [facility] [address] [id number] [place] [address]- 4436 Dec, [facility] [address] [id number][place] [address]- 8167 Dec, [facility] [address] [id number][place] [address]- 2775 Dec, [facility] [address] [id number][place] [address]- 4268 Dec, [facility] [address] [facility] [id number][place] [address]- 0086 Dec, [facility] [address] [id number] [id number] Nov, Encounter for removal of sutures V58.32 [facility] [address] [id number][place] [address]- 5349 Nov, [facility] [address] [id number][place] [address]- 7979 Nov, [facility] [address] [id number][place] [address]- 9319 Nov, [facility] [address] [id number], [place] [address]- 1344 Nov, [facility] [address] [address]- 8046 Nov, [facility] [address] [address]- 4412 Nov, [facility] [address] [address]- 1355 Nov, [facility] [id number] [place] [address] 84615- 8030 Nov, Dermatofibroma 216.9 [facility] [id number] [place] [address] 71723- 2029 Nov, [facility] [id number] [place] [address] 95392- 5263 Nov, [facility] [address] [address]- 7307 Oct, [facility] [address] [address]- 6780 Oct, Hematochezia 578.1 ; Abscess 682.9 ; GERD (gastroesophageal reflux disease) 530.81 ; Visual disturbance of one eye 368.9 and High risk medication use V58.69 [facility] [address] [address]- 3572 Oct, [facility] [address], [place] [address]- 1792 Oct, [facility] [address], [place] [address]- 4371 Oct, [facility] [address] [address]- 3311 September, [facility] [address], [place] [address]- 3268 September, [facility] [address] [id number] [address]- 7929 September, [facility] [id number] [place] [address]- 0765 September, [facility] [place] [facility] [address] [facility] [id number] [place] [address]- 5817 September, [facility] [place] [facility] [address] [facility] [id number] [place] [address]- 3608 September, Colon cancer screening V76.51 [facility] [place] [facility] [address] [facility] [id number] [place] [address]- 9024 September, [facility] [place] [facility] [address] [facility] [id number] [place] [address]- 5956 Aug, [facility] [place] [facility] [address] [facility] [id number] [place] [address]- 3656 Aug, [facility] [place] [facility] [address] [facility] [id number] [place] [address]- 2459 Jul, [facility] [place] [facility] [address] [facility] [id number] [place] [address]- 7121 Jul, [facility] [place] [facility] [address] [facility] [id number] [place] [address]- 5794 Jul, [facility] [place] [facility] [address] [facility] [id number] [place] [address]- 5356 Jul, [facility] [place] [facility] [address] [facility] [id number] [place] [address]- 3122 Jun, [facility] [place] [facility] [address] [facility] [id number][place] [address]- 3762 Jun, [facility] [place] [facility] [address] [facility] [id number] [place] [address]- 5211 Jun, [facility] [place] [facility] [address] [facility] [id number] [place] [address]- 2205 Jun, [facility] [place] [facility] [address] [facility] [id number] [place] 8800 Jun, [facility] [place] [facility] [address] [facility] [id number][place] [address]- 7405 Jun, [facility] [address] [id number] [place] [address]- 0724 May, [facility] [place] [facility] [address] [id number] [place] [address]- 5537 May, [facility] [place] [facility] [address] [id number] [place] [address]- 9870 May, [facility] [place] [facility] [address] [id number] [place] [address]- 2922 May, [facility] [place] [facility] [address] [id number] [place] [address]- 8909 May, [facility] [place] [facility] [address] [id number] [place] [address]- 3717 May, [facility] [address] [facility] [id number] [place] [address]- 8206 May, [facility] [place] [facility] [address] [id number] [place] [address]- 9868 May, [facility] [place] [facility] [address] [id number] [place] [address]- 6471 Apr, [facility] [place] [facility] [address] [id number] [place] [address]- 8121 Apr, [facility] [place] [facility] [address] [id number] [place] [address]- 2413 Apr, [facility] [place] [facility] [address] [id number] [place] [address]- 8480 Apr, [facility] [place] [facility] [address] [id number] [place] [address]- 4290 Apr, [facility] [place] [facility] [address] [id number] [place] [address]- 1599 Apr, [facility] [place] [facility] [address] [facility] [id number] [place] 7596 Apr, [facility] [place] [facility] [address] [id number] [place] [address]- 9095 Apr, [facility] [place] [facility] [address] [id number] [place] [address]- 6123 Mar, [facility] [place] [facility] [address] [id number] [place] [address]- 2600 Mar, [facility] [place] [facility] [address] [id number] [place] [address]- 1175 Mar, [facility] [place] [facility] [address] [id number] [place] [address]- 7281 Mar, [facility] [place] [facility] [address] [id number] [place] [address]- 8560 Mar, [facility] [place] [facility] [address] [id number] [place] [address]- 5399 Mar, [facility] [place] [facility] [address] [id number] [place] [address]- 5503 Mar, [facility] [place] [facility] [address] [id number] [place] [address]- 2752 Mar, [facility] [place] [facility] [address] [id number] [place] [address]- 7742 Mar, [facility] [place] [facility] [address] [id number] [place] [address]- 9820 Mar, [facility] [place] [facility] [address] [id number] [place] [address]- 3238 Feb, [facility] [place] [facility] [address] [id number] [place] [address]- 0543 Feb, [facility] [place] [facility] [address] [id number] [place] [address]- 1256 Jan, [facility] [place] [facility] [address] [id number] [place] [address]- 2788 Jan, [facility] [place] [facility] [address] [id number] [place] [address]- 6692 Jan, [facility] [place] [facility] [address] [id number] [place] [address]- 8937 Jan, [facility] [place] [facility] [address] [id number] [place] [address]- 0289 Dec, [facility] [place] [facility] [address] [id number] [place] [address]- 0447 Dec, [facility] [place] [facility] [address] [id number] [place] [address]- 8381 Dec, [facility] [place] [facility] [address] [id number] [place] [address]- 2775 Dec, [facility] [place] [facility] [address] [id number] [place] [address]- 5789 Dec, [facility] [place] [facility] [address] [id number] [place] [address]- 8607 Dec, [facility] [place] [facility] [address] [id number] [place] [address]- 3110 Nov, [facility] [place] [facility] [address] [id number] [place] [address]- 6232 Nov, [facility] [place] [facility] [address] [id number] [place] [address]- 3257 Oct, [facility] [place] [facility] [address] [id number] [place] [address]- 3994 Oct, [facility] [place] [facility] [address] [id number] [place] [address]- 5386 Oct, [facility] [place] [facility] [address] [id number] [place] [address]- 8649 Oct, [facility] [place] [facility] [address] [id number] [place] [address]- 4853 September, [facility] [place] [facility] [address] [id number] [place] [address]- 6590 September, [facility] [place] [facility] [address] [id number] [place] [address]- 4571 September, [facility] [address] [id number] [place] [address]- 0313 September, [facility] [place] [facility] [address] [id number] [place] [address]- 2054 September, [facility] [place] [facility] [address] [id number] [place] [address]- 0245 September, [facility] [place] [facility] [address] [id number] [place] [address]- 4564 September, [facility] [place] [facility] [address] [id number] [place] [address]- 3519 September, [facility] [place] [facility] [address] [id number] [place] [address]- 5490 Aug, [facility] [place] [facility] [address] [id number] [place] [address]- 0162 Aug, [facility] [place] [facility] [address] [id number] [place] [address]- 8267 Aug, [facility] [place] [facility] [address] [id number] [place] [address]- 2419 Aug, [facility] [place] [facility] [address] [id number] [place] [address]- 1082 Aug, [facility] [place] [facility] [address] [id number] [place] [address]- 0901 Aug, [facility] [place] [facility] [address] [id number] [place] [address]- 6193 Jul, [facility] [place] [facility] [address] [id number] [place] [address]- 1403 Jul, [facility] [place] [facility] [address] [id number] [place] [address]- 0178 Jul, [facility] [place] [facility] [address] [id number] [place] [address]- 1617 Jul, [facility] [place] [facility] [address] [id number] [place] [address]- 8170 Jun, [facility] [address] [id number] [place] [address]- 9636 Jun, [facility] [address] [id number] [place] [address]- 1236 Jun, [facility] [address] [id number] [place] [address]- 0341 Jun, [facility] [address] [id number] [place] [address]- 9517 Jun, [facility] [address] [id number] [place] [address]- 5141 Jun, [facility] [address] [id number] [place] [address]- 6350 May, [facility] [address] [id number] [place] [address]- 2732 May, [facility] [address] [id number] [place] [address]- 9209 May, [facility] [address] [id number] [place] [address]- 3818 May, [facility] [address] [id number] [place] [address]- 6820 May, [facility] [address] [id number] [place] [address]- 0928 May, [facility] [address] [id number] [place] [address]- 1334 May, [facility] [address] [id number] [place] [address]- 7782 May, [facility] [address] [id number] [place] [address]- 6787 Apr, [facility] [address] [place] [id number] 16 Apr, 2013 [facility] [address] [id number] [place] 8427 16 Apr, 2013 [facility] [address] [id number][place] [address]- 9584 16 Apr, 2013 [facility] [address] [facility] [id number] [place] [address]- 6810 13 Apr, 2013 [facility] [place] [facility] [address] [id number][place] 2358 13 Apr, 2013 [facility] [address] [id number] [place] [address]- 7667 05 Apr, 2013 [facility] [address] [id number], [place] [address]- 4304 05 Apr, 2013 [facility] [address] [id number][place] [address]- 2030 04 Apr, 2013 [facility] [place] [facility] [address] [id number], [place] [address]- 6105 Mar, [facility] [address] [id number], [place] [address]- 8993 Mar, [facility] [place] [facility] [address] [id number], [place] [address]- 6455 12 Mar, 2013 [facility] [place] [facility] [address] [id number], [place] [address] Mar, [facility] [place] [facility] [address] [id number], [place] [address] Mar, [facility] [place] [facility] [address] [id number], [place] [address] Feb, [facility] [place] [facility] [address] [id number] [address] 25 Feb, 2013 [facility] [place] [facility] [address] [id number][place] [address] 14 Feb, 2013 [facility] [place] [facility] [address] [id number] [place] [address] 14 Feb, 2013 [facility] [address] [id number] [place] [address] Jan, [facility] [place] [facility] [address] [id number] [place] [address] Jan, [facility] [place] [facility] [address] [id number] [place] [address] Jan, [facility] [place] [facility] [address] [id number] [place] [address]- [address] Dec, [facility] [place] [facility] [address] [id number] [place] [address] Dec, [facility] [place] [facility] [address] [id number] [place] [address] Dec, [facility] [address] [id number] [id number] Nov, [facility] [address] [id number] [id number] Oct, [facility] [address] [id number] [place] [address] Oct, [facility] [place] [facility] [address] [id number] [place] [address] September, [facility] [address] [id number], [place] [address] September, [facility] [place] [facility] [address] [id number] [place] [address] September, [facility] [place] [facility] [address] [id number] [place] [address] September, [facility] [place] [facility] [address] [id number] [place] [address]- [address]39 September, [facility] [place] [facility] [address] [id number] [place] [address] Jul, [facility] [place] [facility] [address] [id number] [place] [address]- 1567 Jul, [facility] [place] [facility] [address] [id number] [place] [address]- [address] Jul, [facility] [place] [facility] [address] [id number] [place] [address]- [address] Jul, [facility] [place] [facility] [address] [id number] [place] [address] Jun, [facility] [place] [facility] [address] [id number] [place] [address]87 Jun, [facility] [place] [facility] [address] [id number] [place] [address] Jun, [facility] [place] [facility] [address] [id number] [place] [address] Jun, [facility] [place] [facility] [address] [id number] [place] [address] 3916 May, [facility] [place] [facility] [address] [id number] [place] [address]- [address]286 Mar, [facility] [place] [facility] [address] [id number] [place] [address] Mar, [facility] [place] [facility] [address] [id number] [place] [address]60 Mar, [facility] [place] [facility] [address] [id number] [place] [address]876 Mar, [facility] [place] [facility] [address] [id number] [place] [address] 2542 Mar, [facility] [place] [facility] [address] [id number] [place] [address]- 2548 Mar, [facility] [place] [facility] [address] [id number] [place] [address]- 2547 Mar, [facility] [place] [facility] [address] [id number] [place] [address] Mar, [facility] [place] [facility] [address] [facility] [id number] [place] [address]- [address]289 Feb, [facility] [place] [facility] [address] [id number] [place] [address] 5316 Feb, [facility] [place] [facility] [address] [facility] [id number] [place] [address]- 4966 Feb, [facility] [place] [facility] [address] [facility] [id number] [place] [address]- [address]46 Feb, [facility] [place] [facility] [address] [facility] [id number] [place] [address]- 65[address] Feb, [facility] [place] [facility] [address] [facility] [id number] [place] [address] Feb, [facility] [place] [facility] [address] [facility] [id number] [place] [address]46 Feb, [facility] [address] [id number] [id number] Jan, [facility] [address] [facility] [id number][place] [id number] Dec, [facility] [address] [id number] [id number] Dec, [facility] [place] [facility] [address] [facility] [id number], [place] [address] Nov, [facility] [place] [facility] [address] [facility] [id number], [place] [address]46 Nov, [facility] [place] [facility] [address] [facility] [id number], [place] [address]- [address]46 Oct, [facility] [place] [facility] [address] [facility] [id number], [place] [address]46 Jul, [facility] [place] [facility] [address] [facility] [id number], [place] [address] Jul, [facility] [place] [facility] [address] [facility] [id number], [place] [address] May, [facility] [id number], [place] [address] May, [facility] [id number], [place] [address] Nov, [facility] [id number], [place] [address] Mar, [facility] [id number], [place] [address] Dec, [facility] [id number], [place] [address]95 Nov, [facility] [id number], [place] [address] Aug, [facility] [id number], [place] [address] Apr, [facility] [id number], [place] [address] Apr, [facility] [id number], [place] [address] 1506 Mar, [facility] [id number], [place] [address]36 Feb, [facility] [id number] [address] September, [facility] [id number] [address] Jun, [facility] [address] [id number] [address] Mar, IMMUNIZATIONS No Known Immunizations SOCIAL HISTORY Never Assessed REASON FOR VISIT f/u PLAN OF CARE Activity Details Follow Up Next available Reason: F/U VITAL SIGNS MEDICATIONS Unknown Medications RESULTS No Results PROCEDURES Procedure Date Ordered Result Body Site Psychotherapy, patient &/family, 45 minutes, established patient Feb 15, 2018 INSTRUCTIONS MEDICATIONS ADMINISTERED No Known Medications MEDICAL (GENERAL) HISTORY Type Description Date Medical History backache Medical History hypertension Medical History hematochezia Medical History Eye problems investigating irritation Medical History pinched nerve in back Medical History Obstructive sleep apnea Medical History Serpinginous choroidopathy - bilateral with extensive scarring Surgical History tubal ligation Surgical History hysterectomy, total with bilateral salpingo-oophorectomy (BSO ) Surgical History bilat carpal tunnel release Surgical History cyst removal Surgical History cholecystectomy Surgical History lymph node resection Surgical History appendectomy Surgical History section Surgical History tonsillectomy Surgical History hernia Hospitalization History Went by ambulance to [facility] as unresponsive 05/2015 Hospitalization History [facility] sent her to [facility] for a psych hold 05/2015
--- OUTSIDE RECORDS SUMMARY | 2018-03-15 10:38 | XMS REPORT ---
Author Author HERBERT MCGOWAN Organization [facility] Address [facility] [place] [address] Care Team Providers Care Meat Smoker Name Role Phone HERBERT MCGOWAN Unavailable PROBLEMS Type Condition ICD9-CM Code ASP13-AU Code Onset Dates Condition Status SNOMED Code Problem Psoriasis L40.9 Active 0065069 Problem Relationship problem with family member Z63.8 Active 242023884 Problem Essential hypertension I10 Active 69849550 Problem Anxiety F41.9 Active 48168361 Problem Visual disturbance H53.9 Active 09206209 Problem Rheumatoid arthritis involving multiple sites with positive rheumatoid factor M05.79 Active 131433827 Problem Bilateral low back pain with sciatica, sciatica laterality unspecified M54.40 Active 518494814 Problem Hypokalemia E87.6 Active 86909244 Problem Lumbago with sciatica, left side M54.42 Active 003689192 Problem Other chronic pain G89.29 Active 74584617 Problem 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 Active 629747419 Problem Blindness of right eye H54.40 Active 992299767 Problem Posttraumatic stress disorder F43.10 Active 21177465 Problem Overdose T50.901A Active 81361634 Problem Bipolar disorder F31.9 Active 75132936 Problem Borderline personality disorder F60.3 Active 28679844 Problem Obstructive sleep apnea G47.33 Active 52650041 Problem Acquired hypothyroidism E03.9 Active 332147224 Problem Pelvic pain R10.2 Active 81533679 Problem Chronic pain G89.29 Active 33238252 Problem Gastro-esophageal reflux disease without esophagitis K21.9 Active 275360119 Problem Anemia due to other cause, not classified D64.89 Active 686609494 Problem Social anxiety disorder F40.10 Active 03185815 Problem Morbid obesity, unspecified obesity type E66.01 Active 058559896 ALLERGIES No Information ENCOUNTERS Encounter Location Date Diagnosis [facility] [id number] [address] Feb, [facility] [address], [place] [address] Feb, [facility] [address], [place] [address] 59[address] Feb, [facility] [address] [place] [address] 80635- 7614 Jan, [facility] [address] [place] [address] 88868- 9119 Dec, Bipolar disorder F31.9 ; Posttraumatic stress disorder F43.10 and Borderline personality disorder F60.3 [place] [address] [place] [address] 43705- 5822 Dec, 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 ; Anemia due to other cause, not classified D64.89 ; Rheumatoid arthritis involving multiple sites with positive rheumatoid factor M05.79 ; 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 ; Dysuria R30.0 ; Urinary tract infection without hematuria, site unspecified N39.0 and Blindness of right eye H54.40 [place] [address] [place] [address] 78869- 5327 Dec, [place] [address], [place] [address] Dec, [address] [id number] [place] [id number] Dec, Dental examination Z01.20 [place] [id number] [place] [address] 50704- 5417 Nov, Bipolar disorder F31.9 ; Posttraumatic stress disorder F43.10 and Borderline personality disorder F60.3 [facility] [address], [place] [address] 40[address] Nov, Rheumatoid arthritis involving multiple sites with positive rheumatoid factor M05.79 ; Dysuria R30.0 and Blindness of right eye H54.40 [place] [address], [place] [address] 8429 Nov, Bipolar disorder F31.9 ; Posttraumatic stress disorder F43.10 ; Social anxiety disorder F40.10 and Relationship problem with family member Z63.8 [place] [address] [address] 5863 Nov, [place] [address] [id number] [place] [address] 40917- 2282 Nov, [place] [address] [place] [address] 92646- 2020 Nov, 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 ; Adverse effect of antineoplastic and immunosuppressive drugs, initial encounter T45.1X5A ; Anemia , unspecified D64.9 and BMI 40.0-44.9, adult Z68.41 [address] [place] [address] 56976- 5632 Nov, Anemia due to other cause, not classified D64.89 [place] [address] [place] [address] 90378- 4917 Oct, Adverse effect of drug, initial encounter T50.905A and Acute anemia D64.9 [place] [address], [place] [address] 3[address] Oct, Anemia due to other cause, not classified D64.89 ; Dysuria R30.0 and Urinary tract infection without hematuria, site unspecified N39.0 [place] [address], [place] [address] 6649 Oct, [place] [address] [place] [address] 45142- 4561 Oct, [place] [address] [place] [address] 89771- 9656 Oct, 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 [facility] [address] [id number] [id number] Oct, [place] [address], [place] [address]- 7815 13 Oct, 2017 [facility] [id number] [place] [address] 98501- 9324 12 Oct, 2017 [facility] [address] [place] [address] 90576- 9775 11 Oct, 2017 Bipolar disorder F31.9 ; Posttraumatic stress disorder F43.10 and Borderline personality disorder F60.3 [place] [id number] [place] [address] 87144- 4975 11 Oct, 2017 Rheumatoid arthritis involving multiple sites with positive rheumatoid factor M05.79 ; 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 and Anxiety F41.9 [place] [address] [place] [address] 93849- 6405 07 Oct, 2017 [place] [id number] [place] [address] 55861- 9059 September, 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 [place] [address] [place] [address] 33655- 1063 September, Bipolar disorder F31.9 ; Posttraumatic stress disorder F43.10 and Borderline personality disorder F60.3 [place] [address] [place] [address] 40050- 5283 24 Aug, 2017 BMI 40.0-44.9, adult Z68.41 ; Bipolar disorder F31.9 ; Posttraumatic stress disorder F43.10 and Social anxiety disorder F40.10 [place] [address] [place] [address] 88854- 3590 Aug, Bipolar disorder F31.9 ; Posttraumatic stress disorder F43.10 and Borderline personality disorder F60.3 [place] [address] [place] [address] 38283- 7147 Aug, 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 [place] [address] [place] [address] 68140- 4307 Jul, Bipolar disorder F31.9 ; Posttraumatic stress disorder F43.10 and Borderline personality disorder F60.3 [facility] [address] [place] [address] 97700- 8873 Jul, [facility] [id number] [place] [address] 86585- 7701 Jun, Bipolar disorder F31.9 ; Posttraumatic stress disorder F43.10 and Borderline personality disorder F60.3 [facility] [id number] [place] [address] 20792- 2546 Jun, Blindness of right eye H54.40 and Acquired hypothyroidism E03.9 [facility] [id number] [place] [address] 54400- 0160 Jun, [facility] [id number] [place] [address] 59474- 0795 May, Posttraumatic stress disorder F43.10 ; Social anxiety disorder F40.10 and Bipolar disorder F31.9 [facility] [address] [place] [address] 99341- 0808 May, Bipolar disorder F31.9 ; Posttraumatic stress disorder F43.10 and Borderline personality disorder F60.3 [facility] [address] [place] [address] 66137- 1401 May, [facility] [address] [place] [address] 71885- 3558 May, [facility] [address] [place] [address] 10276- 0858 Apr, Bipolar disorder F31.9 ; Posttraumatic stress disorder F43.10 and Borderline personality disorder F60.3 [place] [id number] [address] Apr, [facility] [address] [place] [address] 53312- 5428 Apr, [facility] [address] [place] [address] 69583- 7485 Mar, Hydradenitis L73.2 [facility] [address], [place] [address]- 1590 15 Mar, 2017 Lumbago with sciatica, left side M54.42 ; Other chronic pain G89.29 ; Morbid obesity, unspecified obesity type E66.01 ; Hydradenitis L73.2 and BMI 40.0-44.9, adult Z68.41 [place] [address] [id number] [place] [address] 75769- 6701 Mar, Bipolar disorder F31.9 ; Posttraumatic stress disorder F43.10 and Borderline personality disorder F60.3 [place] [id number] [place] [address] 78284- 1207 Mar, Social anxiety disorder F40.10 ; Bipolar disorder F31.9 and Relationship problem with family member Z63.8 [address] [place] [address] 31381- 7267 Mar, [facility] [address] [id number] [place] [id number] Mar, Dental examination Z01.20 [place] [id number] [place] [address] 41659- 0882 Mar, [place] [address] [place] [address] 06799- 7989 Feb, Bipolar disorder F31.9 ; Posttraumatic stress disorder F43.10 and Borderline personality disorder F60.3 [place] [id number] [id number] Feb, [facility] [address], [place] [address]- 4938 14 Jan, 2017 Bipolar disorder F31.9 ; Posttraumatic stress disorder F43.10 and Borderline personality disorder F60.3 [facility] [address] [id number] [place] [address] Jan, [place] [address] [place] [address] 19732- 1936 Jan, [facility] [address] [id number] [address] Jan, [facility] [address] [place] [address] 04942- 8681 Dec, Bipolar disorder F31.9 ; Posttraumatic stress disorder F43.10 and Borderline personality disorder F60.3 [place] [address], [place] [address]- 4713 Dec, [facility] [address], [place] [address]- 0119 Dec, [facility] [id number] [id number] Dec, [facility] [address] [place] [address] 60071- 9810 Nov, Bipolar 1 disorder F31.9 ; Posttraumatic stress disorder F43.10 and Social anxiety disorder F40.10 [place] [address] [place] [address] 11420- 8555 Nov, Bipolar disorder F31.9 ; Posttraumatic stress disorder F43.10 and Borderline personality disorder F60.3 [place] [address], [place] [address]- 5371 Nov, Morbid obesity, unspecified obesity type E66.01 [place] [address], [place] [address]- 9738 Nov, [address] [id number] [place] [address] Oct, Encounter for dental examination and cleaning without abnormal findings Z01.20 [place] [id number] [place] [address] 06500- 8915 Oct, Morbid obesity, unspecified obesity type E66.01 and Acute seasonal allergic rhinitis due to pollen J30.1 [place] [address], [place] [address]- 2156 Oct, Bipolar disorder F31.9 ; Posttraumatic stress disorder F43.10 and Borderline personality disorder F60.3 [place] [address] [place] [id number] [place] [address] 19968- 8966 September, Morbid obesity, unspecified obesity type E66.01 and Psoriasis L40.9 [place] [address] 18917- 9433 September, Bipolar disorder F31.9 ; Posttraumatic stress disorder F43.10 and Borderline personality disorder F60.3 [place] [address] 38686- 7605 September, Chronic pain G89.29 [place] [address] 14931- 9182 Aug, Other acute nonsuppurative otitis media of right ear H65.191 and Morbid obesity, unspecified obesity type E66.01 [place] [address] 88158- 4544 Aug, Bipolar 1 disorder F31.9 ; Posttraumatic stress disorder F43.10 and Social anxiety disorder F40.10 [place] [address] 81460- 1846 Aug, Bipolar disorder F31.9 ; Posttraumatic stress disorder F43.10 and Borderline personality disorder F60.3 [place] [address] [id number] [place] [address] 05304- 5852 Jul, Morbid obesity due to excess calories E66.01 ; Gastro- esophageal reflux disease without esophagitis K21.9 and Chronic pain G89.29 [place] [address] [id number] [place] [address] 49761- 8306 Jul, Morbid obesity due to excess calories E66.01 [place] [address] [place] [id number] [place] [address] 94349- 9428 Jul, [place] [address] 08731- 8581 Jul, [place] [address], [place] [address]- 8934 02 Jul, 2016 Morbid obesity due to excess calories E66.01 [facility] [id number] [place] [address] 97659- 2044 Jul, Bipolar disorder F31.9 ; Posttraumatic stress disorder F43.10 and Borderline personality disorder F60.3 [facility] [id number] [place] [address] 54159- 1020 16 Jun, 2016 [facility] [id number] [place] [address] 04100- 9562 15 Jun, 2016 Morbid obesity due to excess calories E66.01 [facility] [id number] [place] [address] 44425- 0436 Jun, [facility] [id number] [place] [address] 84286- 9766 Jun, Morbid obesity, unspecified obesity type E66.01 [facility] [id number] [place] [address] 67928- 1715 Jun, Bipolar disorder F31.9 ; Posttraumatic stress disorder F43.10 and Borderline personality disorder F60.3 [facility] [address] [place] [address] 10632- 9186 Jun, [facility] [address], [place] [address]- 5410 Jun, [facility] [id number] [place] [address] 11543- 9290 02 Jun, 2016 Acquired hypothyroidism E03.9 and Morbid obesity due to excess calories E66.01 [facility] [address] [place] [address] 75504- 8980 May, Bipolar disorder F31.9 ; Posttraumatic stress disorder F43.10 and Borderline personality disorder F60.3 [facility] [address] [place] [address] 13851- 1445 Apr, Bipolar 1 disorder F31.9 ; Posttraumatic stress disorder F43.10 and Social anxiety disorder F40.[address] [id number] [place] [id number] Apr, Encounter for dental examination Z01.20 [facility] [address] [place] [address] 65384- 6950 08 Apr, 2016 [facility] [id number] [place] [address] 90230- 4108 08 Apr, 2016 Acquired hypothyroidism E03.9 [facility] [id number] [place] [address] 585567- 5260 Apr, Acquired hypothyroidism E03.9 [facility] [id number] [place] [address] 06450- 3441 Apr, Bipolar disorder F31.9 ; Posttraumatic stress disorder F43.10 and Borderline personality disorder F60.3 [facility] [id number] [place] [address] 43569- 0959 Apr, Acquired hypothyroidism E03.[address] [id number] [place] [id number] Mar, Encounter for dental examination and cleaning without abnormal findings Z01.20 [facility] [address] [place] [address] 82783- 8809 08 Mar, 2016 [facility] [id number] [place] [address] 34274- 5258 Mar, Bipolar disorder F31.9 ; Posttraumatic stress disorder F43.10 and Borderline personality disorder F60.3 [facility] [address] [place] [address] 63743- 1208 Mar, Essential (primary) hypertension I10 [facility] [id number] [place] [address] 71960- 3513 Feb, [facility] [id number] [place] [address] 27350- 9072 Feb, [facility] [address] [place] [address] 90591- 8797 11 Feb, 2016 Pelvic pain R10.2 ; Lipid screening Z13.220 ; Fatigue, unspecified type R53.83 and Weight gain R63.5 [facility] [id number] [place] [address] 25348- 1093 11 Feb, 2016 Bipolar disorder F31.9 ; Posttraumatic stress disorder F43.10 and Borderline personality disorder F60.3 [place] [id number] [place] [address] 61073- 8224 07 Feb, 2016 [place] [address] 04744- 2886 05 Feb, 2016 [place] [id number] [place] [address] 01179- 7799 30 Jan, 2016 Obstructive sleep apnea syndrome G47.33 [place] [id number] [place] [address] 10304- 7476 26 Jan, [address] [id number] [place] [id number] 19 Jan, 2016 Dental examination Z01.20 [place] [id number] [place] [address] 68286- 6408 13 Jan, 2016 Bipolar 1 disorder F31.9 ; Posttraumatic stress disorder F43.10 and Social anxiety disorder F40.10 [place] [id number] [place] [address] 59154- 6019 Jan, Bipolar disorder F31.9 ; Posttraumatic stress disorder F43.10 and Borderline personality disorder F60.3 [place] [address] [place] [address] 17242- 6279 13 Jan, 2016 Sciatica of left side M54.32 [facility] [id number] [place] [address] 79084- 6023 06 Jan, 2016 [place] [id number] [place] [address] 53431- 5351 Dec, [facility] [address] [place] [address] 96531- 5624 Dec, [facility] [id number] [place] [address] 03474164- 4824 Dec, Bipolar disorder F31.9 ; Posttraumatic stress disorder F43.10 and Borderline personality disorder F60.3 [facility] [id number] [place] [address] 86880- 0885 Nov, [facility] [id number] [place] [address] 46103- 9420 Nov, Insomnia, unspecified type G47.00 [facility] [id number] [place] [address] 96575- 0125 Nov, Bipolar disorder F31.9 ; Posttraumatic stress disorder F43.10 and Borderline personality disorder F60.3 [facility] [id number] [place] [address] 09469- 9180 Nov, [facility] [id number] [place] [address] 50674- 7280 Nov, [facility] [id number] [place] [address] 78915- 3535 Oct, Bipolar disorder F31.9 ; Posttraumatic stress disorder F43.10 and Borderline personality disorder F60.3 [facility] [id number] [place] [address] 13670- 3228 Oct, [facility] [id number] [place] [address] 41404- 2712 Oct, Essential (primary) hypertension I10 [facility] [id number] [place] [address] 35394- 4336 September, Bipolar 1 disorder F31.9 ; Posttraumatic stress disorder F43.10 and Social anxiety disorder F40.10 [facility] [address] [place] [address] 93150- 9983 September, Bipolar disorder F31.9 ; Posttraumatic stress disorder F43.10 and Borderline personality disorder F60.3 [facility] [address] [id number] [place] [id number] September, Encounter for dental examination and cleaning without abnormal findings Z01.20 [facility] [address], [place] [address]- 7624 September, [facility] [id number] [place] [address] 74160- 4859 September, [facility] [address] [place] [address] 95808- 5809 Aug, [facility] [id number] [place] [address] 57091- 8358 Aug, Bipolar disorder F31.9 ; Posttraumatic stress disorder F43.10 and Borderline personality disorder F60.3 [facility] [address] [place] [address] 69875- 6076 Aug, [facility] [address] [place] [address] 89230- 7613 Aug, [facility] [address] [place] [address] [phone]- [phone] Aug, [facility] [id number] [place] [address] [id number] Jul, Acute nasopharyngitis [common cold] J00 and Other viral agents as the cause of diseases classified elsewhere B97.89 [facility] [id number] [place] [address] [phone]- [phone] Jul, Chronic pain G89.29 and Allergic rhinitis J30.9 [facility] [id number] [place] [address] [phone] Jul, Bipolar 1 disorder F31.9 ; Posttraumatic stress disorder F43.10 and Social anxiety disorder F40.10 [facility] [id number] [place] [address] [phone] Jul, Bipolar 1 disorder F31.9 [facility] [id number] [place] [address] [phone]- [phone] 16 Jul, 2015 Bipolar disorder F31.9 ; Posttraumatic stress disorder F43.10 and Borderline personality disorder F60.3 [facility] [id number] [place] [address] [phone] 14 Jul, 2015 [facility] [id number] [place] [address] [phone]- [phone] 14 Jul, 2015 [facility] [id number] [place] [address] [phone] 11 Jul, 2015 [facility] [id number] [place] [address] 76611- 3954 10 Jul, 2015 Anxiety F41.9 [facility] [id number] [place] [address] [phone]- [phone] 10 Jul, 2015 Chronic pain G89.29 and Encounter for therapeutic drug level monitoring Z51.81 [facility] [id number] [place] [address] [phone]- [phone] 09 Jul, 2015 Chronic pain G89.29 and Encounter for therapeutic drug level monitoring Z51.81 [facility] [address] [address] [id number] [place] [address] 90951- 0472 08 Jul, 2015 [facility] [id number] [place] [address] 60102- 1831 19 Jun, 2015 [facility] [id number] [place] [address] 74695- 5792 19 Jun, 2015 [facility] [id number] [place] [address] 70081- 0984 15 Jun, 2015 [facility] [id number] [place] [address] 20121- 8393 15 Jun, 2015 [facility] [id number] [place] [address] 82858- 5312 11 Jun, 2015 High risk medication use V58.69 [facility] [id number] [place] [address] 38333- 5730 Jun, [facility] [id number] [place] [address] 08946- 1042 Jun, Bipolar 1 disorder F31.9 ; Overdose T50.901A and Chronic pain G89.29 [facility] [id number] [place] [address] 73461- 8338 Jun, Bipolar disorder F31.9 ; Posttraumatic stress disorder F43.10 and Borderline personality disorder F60.3 [facility] [id number] [place] [address] 18385- 6266 Jun, [facility] [address] 21460- 8131 Jun, [facility] [id number] [place] [address] 41370- 2665 Jun, Keloid L91.0 [facility] [id number] [place] [address] 48777- 8203 Jun, [facility] [id number] [place] [address] 88097- 8246 May, [facility] [id number] [place] [address] 96401- 9196 May, [facility] [id number] [place] [address] 01479- 3102 May, Pelvic pain R10.2 [facility] [id number] [place] [address] 20308- 0079 May, [facility] [id number] [place] [address] 55957- 9602 May, Pain of left thumb M79.645 ; Incisional pain R20.8 ; Pelvic pain R10.2 and Essential hypertension I10 [facility] [id number] [place] [address] 14231- 6720 May, [facility] [address] [place] [address] 8776 May, [facility] [id number] [place] [id number] May, Dental examination Z01.20 and Necrosis of pulp K04.1 [facility] [address] [facility] [id number], [place] [address]- 2134 Apr, [facility] [address] [facility] [id number] [place] [address] 38712- 2961 Apr, [facility] [address] [facility] [id number], [place] [address]- 2600 Apr, [facility] [address] [facility] [id number] [place] [address] 25557- 1257 Apr, [facility] [address] [id number], [place] [address]- 1761 Apr, [facility] [address] [id number], [place] [address]- 4291 Apr, [facility] [address] [id number], [place] [address]- 5516 Apr, [facility] [address] [id number], [place] [address]- 4527 Apr, [facility] [address] [id number], [place] [address]- 6098 Mar, [facility] [place] [facility] [address] [facility] [id number], [place] [address]- 1006 Mar, [facility] [place] [facility] [address] [facility] [id number], [place] [address]- 9610 Mar, [facility] [place] [facility] [address] [facility] [id number], [place] [address]- 8845 Mar, [facility] [place] [facility] [address] [facility] [id number], [place] [address]- 3711 Feb, [facility] [place] [facility] [address] [id number], [place] [address]- 1056 Feb, [facility] [id number] [address]- 0970 Feb, [facility] [id number] [address]- 0784 Feb, [facility] [id number], [place] [address]- 7743 Feb, [facility] [id number] [place] [address] 58577- 8038 Feb, [facility] [id number] [place] [address] 97938- 7755 Feb, [facility] [id number] [place] [address] 10268- 9208 Feb, Dermatofibroma of left lower leg D23.72 [facility] [id number] [place] [address] 57524- 3964 Feb, Hematochezia 578.1 ; Low back pain M54.5 ; High risk medication use V58.69 ; Cervicalgia M54.2 and Anxiety F41.9 [facility] [address] [place] [address] [id number] [place] [id number] Feb, Dental examination Z01.20 ; Pulpitis K04.0 and Dental caries, unspecified K02.9 [facility] [address] [place] [address] [id number] [place] [id number] Feb, Dental examination Z01.20 [facility] [address] [id number], [place] [address]- 7761 30 Jan, 2015 [facility] [address], [place] [address]- 6707 Jan, [facility] [id number], [place] [address]- 3461 Jan, [facility] [id number], [place] [address]- 7188 Jan, [facility] [address] [id number] [place] [address]- 5587 Dec, [facility] [address] [id number] [place] [address]- 4588 Dec, [facility] [address] [id number] [place] [address]- 3206 Dec, [facility] [address] [id number] [place] [address]- 6603 Dec, [facility] [address] [id number] [place] [address]- 3248 Dec, [facility] [address] [id number] [place] [address]- 0487 Dec, [facility] [address] [id number] [place] [address]- 2198 Dec, [facility] [address] [id number], [place] [address]- 9161 Dec, [facility] [address] [facility] [id number] [id number] Nov, Encounter for removal of sutures V58.32 [facility] [address] [id number] [place] [address]- 4404 Nov, [facility] [address] [id number], [place] [address]- 0841 Nov, [facility] [address] [id number], [place] [address]- 6936 Nov, [facility] [place] [facility] [address] [id number], [place] [address]- 2547 Nov, [facility] [place] [facility] [address] [id number], [place] [address]- 7717 Nov, [facility] [place] [facility] [address] [id number] [place] [address]- 6237 Nov, [facility] [id number], [place] [address]- 8138 Nov, [facility] [id number], [place] [address]- 3455 Nov, Dermatofibroma 216.9 [facility] [id number], [place] [address]- 5348 Nov, [facility] [id number], [place] [address]- 6288 Nov, [facility] [address], [place] [address]- 2975 Oct, [facility] [address] [id number], [place] [address]- 1312 Oct, Hematochezia 578.1 ; Abscess 682.9 ; GERD (gastroesophageal reflux disease) 530.81 ; Visual disturbance of one eye 368.9 and High risk medication use V58.69 [facility] [address], [place] [address]- 4824 Oct, [facility] [address], [place] [address]- 9790 Oct, [facility] [address], [place] [address]- 9430 Oct, [facility] [id number], [place] [address]- 3599 September, [facility] [id number], [place] [address]- 0195 September, [facility] [address] [id number], [place] [address]- 0606 September, [facility] [id number], [place] [address]- 6472 September, [facility] [address] [id number], [place] [address]- 5050 September, [facility] [id number] [address]- 3587 September, Colon cancer screening V76.51 [facility] [id number] [place] [address]- 0007 September, [facility] [place] [facility] [address] [id number] [place] 0477 Aug, [facility] [place] [facility] [id number] [place] [address]- 1893 Aug, [facility] [place] [facility] [address] [facility] [id number] [place] [address]- 9194 Jul, [facility] [place] [facility] [id number] 6484 Jul, [facility] [place] [facility] [id number] [place] [address]- 0996 Jul, [facility] [place] [facility] [id number] [place] [address]- 1052 Jul, [facility] [place] [facility] [address] [id number] [place] [address]- 3347 Jun, [facility] [place] [facility] [id number] [place] [address]- 7942 Jun, [facility] [place] [facility] [id number], [place] [address]- 8875 Jun, [facility] [place] [facility] [id number], [place] [address]- 2906 Jun, [facility] [place] [facility] [address] [id number], [place] [address]- 4964 Jun, [facility] [place] [facility] [id number] [place]- 8394 Jun, [facility] [place] [facility] [address] [id number], [place] [address]- 4912 May, [facility] [place] [facility] [id number], [place] [address]- 7466 May, [facility] [place] [facility] [address] [id number] [place] [address]- 6897 May, [facility] [place] [facility] [address] [id number] [place] [address]- 9234 May, [facility] [place] [facility] [address] [id number] [place] [address]- 2523 May, [facility] [place] [facility] [address] [id number] [place] [address]- 8148 May, [facility] [place] [facility] [address] [id number] [place] [address]- 9807 May, [facility] [place] [facility] [address] [id number] [place] [address]- 0849 May, [facility] [place] [facility] [address] [id number] [place] [address]- 0925 Apr, [facility] [place] [facility] [address] [id number] [place] [address]- 6687 Apr, [facility] [place] [facility] [address] [id number] [place] [address]- 5737 Apr, [facility] [place] [facility] [address] [id number] [place] [address]- 1172 Apr, [facility] [place] [facility] [address] [id number] [place] [address]- 9445 Apr, [facility] [place] [facility] [address] [id number] [place] [address]- 7291 Apr, [facility] [place] [facility] [address] [id number] [place] 6464 Apr, [facility] [place] [facility] [address] [id number] [place] 0637 Apr, [facility] [place] [facility] [address] [id number] [place] [address]- 1134 Mar, [facility] [place] [facility] [address] [id number] [place] [address]- 6092 Mar, [facility] [place] [facility] [address] [id number] [place] [address]- 3244 Mar, [facility] [place] [facility] [address] [id number] [place] [address]- 7680 Mar, [facility] [place] [facility] [address] [id number] [place] [address]- 2836 Mar, [facility] [place] [facility] [address] [id number] [place] [address]- 8431 Mar, [facility] [place] [facility] [address] [id number] [place] [address]- 6337 Mar, [facility] [place] [facility] [address] [id number] [place] [address]- 8389 Mar, [facility] [place] [facility] [address] [id number] [place] [address]- 1900 Mar, [facility] [place] [facility] [address] [id number] [place] [address]- 0756 Mar, [facility] [place] [facility] [address] [id number] [place] [address]- 6521 Feb, [facility] [place] [facility] [address] [id number] [place] [address]- 1634 Feb, [facility] [place] [facility] [address] [id number] [place] [address]- 9275 Jan, [facility] [place] [facility] [address] [id number] [place] [address]- 5301 Jan, [facility] [place] [facility] [address] [id number] [place] [address]- 0826 Jan, [facility] [place] [facility] [address] [id number] [place] [address]- 4179 Jan, [facility] [place] [facility] [address] [id number] [place] [address]- 6268 Dec, [facility] [place] [facility] [address] [id number] [place] [address]- 9039 Dec, [facility] [place] [facility] [address] [id number] [place] [address]- 1042 Dec, [facility] [place] [facility] [address] [id number] [place] [address]- 3550 Dec, [facility] [place] [facility] [address] [id number] [place] [address]- 0264 Dec, [facility] [place] [facility] [address] [id number] [place] [address]- 7117 Dec, [facility] [place] [facility] [address] [id number] [place] [address]- 8987 Nov, [facility] [place] [facility] [address] [id number] [place] [address]- 2991 Nov, [facility] [place] [facility] [address] [id number] [place] [address]- 9223 Oct, [facility] [place] [facility] [address] [id number] [place] [address]- 3570 Oct, [facility] [place] [facility] [address] [id number] [place] [address]- 5194 Oct, [facility] [place] [facility] [address] [id number] [place] [address]- 3510 Oct, [facility] [place] [facility] [address] [id number] [place] [address]- 1095 September, [facility] [place] [facility] [address] [id number] [place] [address]- 3919 September, [facility] [place] [facility] [address] [id number] [place] [address]- 2664 September, [facility] [place] [facility] [address] [id number] [place] [address]- 9088 September, [facility] [place] [facility] [address] [id number] [place] [address]- 8688 September, [facility] [address] [id number] [place] [address]- 2951 September, [facility] [place] [facility] [address] [id number] [place] [address]- 0882 September, [facility] [place] [facility] [address] [id number] [place] [address]- 8313 September, [facility] [place] [facility] [address] [id number] [place] [address]- 5599 Aug, [facility] [place] [facility] [address] [id number] [place] [address]- 3211 Aug, [facility] [place] [facility] [address] [id number] [place] [address]- 7574 Aug, [facility] [place] [facility] [address] [id number] [place] [address]- 5132 Aug, [facility] [place] [facility] [address] [id number] [place] [address]- 4047 Aug, [facility] [place] [facility] [address] [id number] [place] [address]- 1104 Aug, [facility] [place] [facility] [address] [id number] [place] [address]- 2461 Jul, [facility] [place] [facility] [address] [id number] [place] [address]- 9841 Jul, [facility] [place] [facility] [address] [id number] [place] [address]- 1023 Jul, [facility] [place] [facility] [address] [id number] [place] [address]- 2490 Jul, [facility] [place] [facility] [address] [id number] [place] [address]- 8738 Jun, [facility] [place] [facility] [address] [id number] [place] [address]- 3851 Jun, [facility] [place] [facility] [address] [id number] [place] [address]- 7944 Jun, [facility] [address] [id number] [place] [address]- 6374 Jun, [facility] [address] [id number] [place] [address]- 5246 Jun, [facility] [address] [id number] [place] [address]- 3277 Jun, [facility] [address] [id number] [place] [address]- 9179 May, [facility] [address] [id number] [place] [address]- 1329 May, [facility] [address] [id number] [place] [address]- 5343 May, [facility] [address] [id number] [place] [address]- 5381 May, [facility] [address] [id number] [place] [address]- 6850 May, [facility] [address] [id number] [place] [address]- 6109 May, [facility] [address] [id number] [place] [address]- 2216 May, [facility] [address] [id number] [place] [address]- 6289 May, [facility] [address] [id number] [place] [address]- 2209 Apr, [facility] [place] [place] [id number] Apr, [facility] [address] [id number] [place] [address]- 9716 Apr, [facility] [address] [id number] [place] [address]- 3772 Apr, [facility] [address] [id number] [place] [address]- 0138 Apr, [facility] [place] [facility] [address] [id number] [place] [address]- 8899 Apr, [facility] [place] [facility] [address] [id number] [place] [address]- 8256 Apr, [facility] [place] [facility] [address] [id number] [place] [address]- 7353 05 Apr, 2013 [facility] [place] [facility] [address] [id number] [place] [address]- 8719 Apr, [facility] [place] [facility] [address] [id number], [place] [address]- 3410 Mar, [facility] [place] [facility] [address] [id number] [place] [address]- 4848 Mar, [facility] [place] [facility] [address] [id number], [place] [address] Mar, [facility] [place] [facility] [address] [id number] [place] [address] Mar, [facility] [place] [facility] [address] [id number], [place] [address] Mar, [facility] [place] [facility] [address] [id number], [place] [address] Feb, [facility] [place] [facility] [address] [id number], [place] [address] Feb, [facility] [place] [facility] [address] [id number], [place] [address] Feb, [facility] [place] [facility] [address] [id number], [place] [address] 14 Feb, 2013 [facility] [place] [facility] [address] [id number], [place] [address] Jan, [facility] [place] [facility] [address] [id number], [place] [address] Jan, [facility] [address] [id number] [place] [address] Jan, [facility] [place] [facility] [address] [id number] [place] [address] Dec, [facility] [place] [facility] [address] [id number], [place] [address] Dec, [facility] [place] [facility] [address] [id number], [place] [address] Dec, [facility] [address] [id number] [id number] Nov, [facility] [address] [facility] [id number] [id number] Oct, [facility] [place] [facility] [address] [facility] [id number], [place] [address] Oct, [facility] [place] [facility] [address] [id number], [place] [address] September, [facility] [place] [facility] [address] [id number] [place] [address] September, [facility] [place] [facility] [address] [id number], [place] [address] September, [facility] [place] [facility] [address] [id number], [place] [address] September, [facility] [place] [facility] [address] [id number], [place] [address] September, [facility] [place] [facility] [address] [id number] [place] [address] Jul, [facility] [place] [facility] [address] [id number] [place] [address] Jul, [facility] [place] [facility] [address] [id number] [place] [address] Jul, [facility] [place] [facility] [address] [id number] [place] [address] Jul, [facility] [address] [id number] [place] [address] Jun, [facility] [place] [facility] [address] [id number] [place] [address] Jun, [facility] [address] [id number] [place] [address] Jun, [facility] [place] [facility] [address] [id number] [place] [address] Jun, [facility] [address] [facility] [id number] [place] [address] May, [facility] [address] [facility] [id number] [place] [address] Mar, [facility] [address] [facility] [id number] [place] [address] Mar, [facility] [address] [id number] [place] [address] Mar, [facility] [address] [facility] [id number] [place] [address] Mar, [facility] [address] [facility] [id number] [place] [address] Mar, [facility] [place] [facility] [address] [facility] [id number] [place] [address] Mar, [facility] [place] [facility] [address] [id number] [place] [address] Mar, [facility] [place] [facility] [address] [facility] [id number] [place] [address] Mar, [facility] [place] [facility] [address] [facility] [id number] [place] [address] Feb, [facility] [place] [facility] [address] [facility] [id number] [place] [address] Feb, [facility] [place] [facility] [address] [id number] [place] [address] Feb, [facility] [place] [facility] [address] [id number] [place] [address] Feb, [facility] [place] [facility] [address] [id number] [place] [address] Feb, [facility] [place] [facility] [address] [id number] [place] [address] Feb, [facility] [place] [facility] [address] [id number] [place] [address] Feb, [facility] [address] [id number] [place] [id number] Jan, [facility] [address] [id number] [place] [id number] Dec, [facility] [address] [id number] [place] [id number] Dec, [facility] [place] [facility] [address] [id number] [place] [address] Nov, [facility] [place] [facility] [address] [facility] [id number] [place] [address] Nov, [facility] [place] [facility] [address] [facility] [id number], [place] [address] Oct, [facility] [place] [facility] [address] [facility] [id number] [place] [address] Jul, [facility] [place] [facility] [address] [id number] [place] [address] Jul, [facility] [place] [facility] [address] [id number] [place] [address] May, [facility] [place] [facility] [address] [facility] [id number] [place] [address] May, [facility] [place] [facility] [address] [id number] [place] [address] Nov, [facility] [address] [id number], [place] [address] Mar, [facility] [id number] [address] Dec, [facility] [id number], [place] [address] Nov, [facility] [id number], [place] [address] Aug, [facility] [id number] [address] Apr, [facility] [id number], [place] [address] Apr, [facility] [id number] [address] Mar, [facility] [id number], [place] [address] Feb, [facility] [id number], [place] [address] September, [facility] [id number] [address] Jun, [facility] [id number], [place] [address] Mar, IMMUNIZATIONS No Known Immunizations SOCIAL HISTORY Never Assessed REASON FOR VISIT Returned call PLAN OF CARE VITAL SIGNS MEDICATIONS Unknown Medications RESULTS No Results PROCEDURES No Known procedures INSTRUCTIONS MEDICATIONS ADMINISTERED No Known Medications MEDICAL [...] hernia Hospitalization History Went by ambulance to [facility] as unresponsive 05/2015 Hospitalization History [facility] psych hold 05/2015
--- OUTSIDE RECORDS SUMMARY | 2018-03-15 10:39 | XMS REPORT ---
Author Author SAMI SUAREZ [facility] Address [address] [place] [address] Care Team Providers Care Pulmonology Technician Name Role Phone SAMI SUAREZ Unavailable PROBLEMS Type Condition ICD9-CM Code NJO83-JD Code Onset Dates Condition Status SNOMED Code Problem Psoriasis L40.9 Active 7512169 Problem Relationship problem with family member Z63.8 Active 009690967 Problem Essential hypertension I10 Active 69156425 Problem Anxiety F41.9 Active 18462636 Problem Visual disturbance H53.9 Active 95354174 Problem Rheumatoid arthritis involving multiple sites with positive rheumatoid factor M05.79 Active 314667062 Problem Bilateral low back pain with sciatica, sciatica laterality unspecified M54.40 Active 179888343 Problem Hypokalemia E87.6 Active 63538716 Problem Lumbago with sciatica, left side M54.42 Active 116717366 Problem Other chronic pain G89.29 Active 03819196 Problem 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 Active 281340547 Problem Blindness of right eye H54.40 Active 147034689 Problem Posttraumatic stress disorder F43.10 Active 44824465 Problem Overdose T50.901A Active 44892268 Problem Bipolar disorder F31.9 Active 33594831 Problem Borderline personality disorder F60.3 Active 22863878 Problem Obstructive sleep apnea G47.33 Active 74124936 Problem Acquired hypothyroidism E03.9 Active 896792739 Problem Pelvic pain R10.2 Active 58672510 Problem Chronic pain G89.29 Active 73914795 Problem Gastro-esophageal reflux disease without esophagitis K21.9 Active 729246351 Problem Anemia due to other cause, not classified D64.89 Active 032437725 Problem Social anxiety disorder F40.10 Active 77966689 Problem Morbid obesity, unspecified obesity type E66.01 Active [id number] ALLERGIES No Information ENCOUNTERS Encounter Location Date Diagnosis [facility] [address] [facility] [id number] [address] Feb, [facility] [address] [address] 0918 Feb, [facility] [address] [place] [address] 21247- 3384 Feb, [facility] [address] [place] [address] 27662- 4205 Jan, [place] [address] [id number] [place] [address] 30916- 2921 Dec, Bipolar disorder F31.9 ; Posttraumatic stress disorder F43.10 and Borderline personality disorder F60.3 [place] [address] [place] [address] 60125- 9179 Dec, 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 ; Anemia due to other cause, not classified D64.89 ; Rheumatoid arthritis involving multiple sites with positive rheumatoid factor M05.79 ; 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 ; Dysuria R30.0 ; Urinary tract infection without hematuria, site unspecified N39.0 and Blindness of right eye H54.40 [place] [address] [place] [address] 46051- 9457 Dec, [facility] [address] [address] Dec, [address] [id number] [address] Dec, Dental examination Z01.20 [place] [address] [place] [id number] [address] 9939 Nov, Bipolar disorder F31.9 ; Posttraumatic stress disorder F43.10 and Borderline personality disorder F60.3 [place] [address] [address] 2214 Nov, Rheumatoid arthritis involving multiple sites with positive rheumatoid factor M05.79 ; Dysuria R30.0 and Blindness of right eye H54.40 [place] [address] [address] 9797 Nov, Bipolar disorder F31.9 ; Posttraumatic stress disorder F43.10 ; Social anxiety disorder F40.10 and Relationship problem with family member Z63.8 [place] [address] [address] 3008 Nov, [place] [address] [place] [id number] [place] [address] 71196- 0242 Nov, [place] [address] [place] [id number] [place] [address] 21201- 4129 Nov, 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 ; Adverse effect of antineoplastic and immunosuppressive drugs, initial encounter T45.1X5A ; Anemia , unspecified D64.9 and BMI 40.0-44.9, adult Z68.41 [address] [place] [address] 78853- 7529 Nov, Anemia due to other cause, not classified D64.89 [place] [address] [place] [address] 16354- 9391 Oct, Adverse effect of drug, initial encounter T50.905A and Acute anemia D64.9 [place] [address] [place] [address] 82629- 3769 Oct, Anemia due to other cause, not classified D64.89 ; Dysuria R30.0 and Urinary tract infection without hematuria, site unspecified N39.0 [place] [address] [address]- 1263 Oct, [place] [address] [address]- 1449 Oct, [place] [address] [place] [address] 41312- 5763 Oct, 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 [place] [address] [id number] [address] Oct, [place] [address] [address]- 6297 13 Oct, 2017 [place] [address] [id number] [place] [address] 26179- 2914 12 Oct, 2017 [place] [address] [place] [address] [id number] [place] [address] 90823- 3769 11 Oct, 2017 Bipolar disorder F31.9 ; Posttraumatic stress disorder F43.10 and Borderline personality disorder F60.3 [place] [address] [place] [address] [id number] [place] [address] 63467- 7613 Oct, Rheumatoid arthritis involving multiple sites with positive rheumatoid factor M05.79 ; 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 and Anxiety F41.9 [place] [id number] [place] [address] 24417- 5754 07 Oct, 2017 [place] [address] [place] [id number] [place] [address] 90267- 3398 September, 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 [place] [address] [place] [id number] [place] [address] 92853- 8957 September, Bipolar disorder F31.9 ; Posttraumatic stress disorder F43.10 and Borderline personality disorder F60.3 [place] [address] [place] [address] 04094- 2195 Aug, BMI 40.0-44.9, adult Z68.41 ; Bipolar disorder F31.9 ; Posttraumatic stress disorder F43.10 and Social anxiety disorder F40.10 [place] [address] [address]- 9307 Aug, Bipolar disorder F31.9 ; Posttraumatic stress disorder F43.10 and Borderline personality disorder F60.3 [place] [address] [place] [id number] [place] [address] 07993- 5741 Aug, 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 [place] [address] [place] [address] 91890- 0582 Jul, Bipolar disorder F31.9 ; Posttraumatic stress disorder F43.10 and Borderline personality disorder F60.3 [facility] [address] [place] [address] 70089- 3522 Jul, [facility] [id number] [place] [address] 03040- 9232 Jun, Bipolar disorder F31.9 ; Posttraumatic stress disorder F43.10 and Borderline personality disorder F60.3 [facility] [id number] [place] [address] 71774- 9982 Jun, Blindness of right eye H54.40 and Acquired hypothyroidism E03.9 [facility] [address] 94406- 7134 Jun, [facility] [id number] [place] [address] 95919- 0791 May, Posttraumatic stress disorder F43.10 ; Social anxiety disorder F40.10 and Bipolar disorder F31.9 [facility] [id number] [place] [address] 58128- 7580 May, Bipolar disorder F31.9 ; Posttraumatic stress disorder F43.10 and Borderline personality disorder F60.3 [facility] [address] [place] [address] 22021- 6756 May, [facility] [address] [place] [address] 07091- 8453 May, [facility] [id number] [place] [address] 49705- 6827 Apr, Bipolar disorder F31.9 ; Posttraumatic stress disorder F43.10 and Borderline personality disorder F60.3 [place] [id number] [address] Apr, [facility] [address] [place] [address] 26882- 5829 Apr, [facility] [address] [place] [address] 56298- 2696 Mar, Hydradenitis L73.2 [facility] [address] [address]- 2761 15 Mar, 2017 Lumbago with sciatica, left side M54.42 ; Other chronic pain G89.29 ; Morbid obesity, unspecified obesity type E66.01 ; Hydradenitis L73.2 and BMI 40.0-44.9, adult Z68.41 [place] [id number] [place] [address] 33890- 6149 Mar, Bipolar disorder F31.9 ; Posttraumatic stress disorder F43.10 and Borderline personality disorder F60.3 [place] [id number] [place] [address] 20889- 7409 Mar, Social anxiety disorder F40.10 ; Bipolar disorder F31.9 and Relationship problem with family member Z63.8 [place] [address] [place] [address] 66315- 2202 Mar, [place] [address] [id number] [id number] Mar, Dental examination Z01.20 [facility] [id number] [place] [address] 56056- 5938 Mar, [place] [address] [place] [address] 23563- 7994 Feb, Bipolar disorder F31.9 ; Posttraumatic stress disorder F43.10 and Borderline personality disorder F60.3 [place] [address] [id number] [address] Feb, [facility] [address] [place] [address] 55346- 3406 14 Jan, 2017 Bipolar disorder F31.9 ; Posttraumatic stress disorder F43.10 and Borderline personality disorder F60.[address] [facility] [address] [id number] [id number] Jan, [place] [address] [place] [address] 10744- 3385 Jan, [facility] [address] [facility] [id number] [id number] Jan, [place] [address] [place] [address] 87506- 3099 Dec, Bipolar disorder F31.9 ; Posttraumatic stress disorder F43.10 and Borderline personality disorder F60.3 [place] [address] [place] [address] 85395- 8749 Dec, [place] [address] [place] [address] 49017- 4190 Dec, [facility] [id number] [place] [id number] Dec, [place] [address] [place] [address] 52665- 0677 Nov, Bipolar 1 disorder F31.9 ; Posttraumatic stress disorder F43.10 and Social anxiety disorder F40.10 [place] [address] [place] [address] 13926- 0843 Nov, Bipolar disorder F31.9 ; Posttraumatic stress disorder F43.10 and Borderline personality disorder F60.3 [place] [address] [place] [address] 85271- 5280 Nov, Morbid obesity, unspecified obesity type E66.01 [place] [address] [address]- 1656 Nov, [place] [id number] [id number] Oct, Encounter for dental examination and cleaning without abnormal findings Z01.20 [place] [address] [place] [id number] [place] [address] 68009- 0578 Oct, Morbid obesity, unspecified obesity type E66.01 and Acute seasonal allergic rhinitis due to pollen J30.1 [place] [address] [address]- 0858 Oct, Bipolar disorder F31.9 ; Posttraumatic stress disorder F43.10 and Borderline personality disorder F60.3 [place] [address] [place] [address] 89933- 0236 September, Morbid obesity, unspecified obesity type E66.01 and Psoriasis L40.9 [place] [address] [place] [address] [id number] [place] [address] 79480- 8758 September, Bipolar disorder F31.9 ; Posttraumatic stress disorder F43.10 and Borderline personality disorder F60.3 [place] [address] [place] [address] [id number] [place] [address] 84255- 4111 September, Chronic pain G89.29 [place] [address] [place] [address] [id number] [place] [address] 35160- 0479 Aug, Other acute nonsuppurative otitis media of right ear H65.191 and Morbid obesity, unspecified obesity type E66.01 [place] [address] [id number] [place] [address] 15740- 9490 Aug, Bipolar 1 disorder F31.9 ; Posttraumatic stress disorder F43.10 and Social anxiety disorder F40.10 [place] [address] [place] [address] [id number] [place] [address] 84172- 0042 Aug, Bipolar disorder F31.9 ; Posttraumatic stress disorder F43.10 and Borderline personality disorder F60.3 [place] [address] [place] [address] 19921- 0313 Jul, Morbid obesity due to excess calories E66.01 ; Gastro- esophageal reflux disease without esophagitis K21.9 and Chronic pain G89.29 [place] [address] [place] [address] 13280- 7505 Jul, Morbid obesity due to excess calories E66.01 [place] [address] [place] [address] 44195- 6526 Jul, [place] [address] [place] [address] [id number] [place] [address] 04973- 4409 Jul, [place] [address] [address]- 1903 02 Jul, 2016 Morbid obesity due to excess calories E66.01 [facility] [id number] [place] [address] 49048- 2540 Jul, Bipolar disorder F31.9 ; Posttraumatic stress disorder F43.10 and Borderline personality disorder F60.3 [facility] [address] [place] [address] 28947- 5716 16 Jun, 2016 [facility] [address] [place] [address] 18383- 8191 15 Jun, 2016 Morbid obesity due to excess calories E66.01 [facility] [address] [place] [id number] [place] [address] 38670- 9947 Jun, [facility] [address] [place] [id number] [place] [address] 63083- 1713 Jun, Morbid obesity, unspecified obesity type E66.01 [facility] [address] [place] [address] 82721- 9472 Jun, Bipolar disorder F31.9 ; Posttraumatic stress disorder F43.10 and Borderline personality disorder F60.3 [facility] [address] [place] [address] 80501- 2135 Jun, [facility] [address] [address]- 0264 Jun, [facility] [address] [place] [address] 21037- 5663 02 Jun, 2016 Acquired hypothyroidism E03.9 and Morbid obesity due to excess calories E66.01 [facility] [address] [place] [address] 50170- 3013 May, Bipolar disorder F31.9 ; Posttraumatic stress disorder F43.10 and Borderline personality disorder F60.3 [facility] [address] [place] [address] 69043- 9814 Apr, Bipolar 1 disorder F31.9 ; Posttraumatic stress disorder F43.10 and Social anxiety disorder F40.[address] [id number][place] [address] 12 Apr, 2016 Encounter for dental examination Z01.20 [facility] [address] [address]- 6797 08 Apr, 2016 [facility] [id number] [place] [address] 81693- 7971 08 Apr, 2016 Acquired hypothyroidism E03.9 [facility] [id number] [place] [address] 238358- 1750 Apr, Acquired hypothyroidism E03.9 [facility] [address] [place] [address] 86140- 5029 Apr, Bipolar disorder F31.9 ; Posttraumatic stress disorder F43.10 and Borderline personality disorder F60.3 [facility] [id number] [place] [address] 97575- 8645 Apr, Acquired hypothyroidism E03.[address] [id number][place] [id number] Mar, Encounter for dental examination and cleaning without abnormal findings Z01.20 [facility] [address] [address]- 2465 08 Mar, 2016 [facility] [id number] [place] [address] 27363- 4207 Mar, Bipolar disorder F31.9 ; Posttraumatic stress disorder F43.10 and Borderline personality disorder F60.3 [facility] [address] [place] [address] 05029- 5151 Mar, Essential (primary) hypertension I10 [facility] [address] [place] [address] 83322- 0437 Feb, [facility] [id number] [place] [address] 93406- 0272 Feb, [facility] [address] [place] [address] 17689- 0709 11 Feb, 2016 Pelvic pain R10.2 ; Lipid screening Z13.220 ; Fatigue, unspecified type R53.83 and Weight gain R63.5 [place] [address] [place] [address] [id number] [place] [address] 72442- 6949 11 Feb, 2016 Bipolar disorder F31.9 ; Posttraumatic stress disorder F43.10 and Borderline personality disorder F60.3 [place] [address] [place] [address] [id number] [place] [address] 79853- 0217 07 Feb, 2016 [place] [address] 82377- 5225 05 Feb, 2016 [place] [address] [place] [address] [address] [place] [address] 28499- 2186 30 Jan, 2016 Obstructive sleep apnea syndrome G47.[address] 79347- 3223 26 Jan, [address] [id number][place] [address] 19 Jan, 2016 Dental examination Z01.20 [place] [id number] [place] [address] 76432- 0431 13 Jan, 2016 Bipolar 1 disorder F31.9 ; Posttraumatic stress disorder F43.10 and Social anxiety disorder F40.10 [place] [address] [place] [address] [address] [place] [address] 21999- 3301 Jan, Bipolar disorder F31.9 ; Posttraumatic stress disorder F43.10 and Borderline personality disorder F60.3 [place] [address] [place] [id number] [place] [address] 54573- 7977 Jan, Sciatica of left side M54.32 [place] [address] [place] [address] [place] [address] 40087- 0231 06 Jan, 2016 [place] [address] [place] [address] [place] [address] 84413- 5914 Dec, [place] [address] [address]- 2393 Dec, [facility] [id number] [place] [address] 89648- 3496 Dec, Bipolar disorder F31.9 ; Posttraumatic stress disorder F43.10 and Borderline personality disorder F60.3 [facility] [id number] [place] [address] 09348- 2526 Nov, [facility] [address] [place] [address] 88483- 5664 Nov, Insomnia, unspecified type G47.00 [facility] [address] [place] [address] 47685- 0027 Nov, Bipolar disorder F31.9 ; Posttraumatic stress disorder F43.10 and Borderline personality disorder F60.3 [facility] [id number] [place] [address] 94448- 2450 Nov, [facility] [address] [place] [address] 83797- 8189 Nov, [facility] [id number] [place] [address] 67355- 9680 Oct, Bipolar disorder F31.9 ; Posttraumatic stress disorder F43.10 and Borderline personality disorder F60.3 [facility] [address] [place] [address] 06158- 3861 Oct, [facility] [address] [place] [address] 01303- 6106 Oct, Essential (primary) hypertension I10 [facility] [id number] [place] [address] 79058- 4720 September, Bipolar 1 disorder F31.9 ; Posttraumatic stress disorder F43.10 and Social anxiety disorder F40.10 [facility] [address] [place] [address] 08799- 3737 September, Bipolar disorder F31.9 ; Posttraumatic stress disorder F43.10 and Borderline personality disorder F60.3 [facility] [address] [facility] [id number] [id number] September, Encounter for dental examination and cleaning without abnormal findings Z01.20 [facility] [address] [address]- 6366 September, [facility] [address] [place] [address] 12810- 8886 September, [facility] [address] [address]- 5018 Aug, [facility] [address] [place] [address] 14558- 7905 Aug, Bipolar disorder F31.9 ; Posttraumatic stress disorder F43.10 and Borderline personality disorder F60.3 [facility] [address] [address]- 7701 Aug, [facility] [address] [place] [address] 42983- 1797 Aug, [facility] [address] [address]- 7967 Aug, [place] [id number], [place] [address] Jul, Acute nasopharyngitis [common cold] J00 and Other viral agents as the cause of diseases classified elsewhere B97.89 [facility] [address] [address]- 7906 Jul, Chronic pain G89.29 and Allergic rhinitis J30.9 [facility] [address] [place] [address] 13302- 3041 Jul, Bipolar 1 disorder F31.9 ; Posttraumatic stress disorder F43.10 and Social anxiety disorder F40.10 [facility] [address] [address]- 9693 Jul, Bipolar 1 disorder F31.9 [facility] [address] 5207765100[place] [address]- 2630 16 Jul, 2015 Bipolar disorder F31.9 ; Posttraumatic stress disorder F43.10 and Borderline personality disorder F60.3 [facility] [address] [place] [address] 27792- 3025 14 Jul, 2015 [facility] [address] [place] [address] 48122- 0579 14 Jul, 2015 [facility] [id number] [place] [address] 01398- 2777 11 Jul, 2015 [facility] [address] [place] [address] 47443- 5038 10 Jul, 2015 Anxiety F41.9 [facility] [id number] [place] [address] 23849- 1199 10 Jul, 2015 Chronic pain G89.29 and Encounter for therapeutic drug level monitoring Z51.81 [facility] [address] [place] [address] 12443- 6334 09 Jul, 2015 Chronic pain G89.29 and Encounter for therapeutic drug level monitoring Z51.81 [facility] [address] [place] [address] 86159- 4301 08 Jul, 2015 [facility] [id number] [place] [address] 77882- [phone] 19 Jun, 2015 [facility] [id number] [place] [address] 82489- [phone] 19 Jun, 2015 [facility] [id number] [place] [address] 42323- [phone] 15 Jun, 2015 [facility] [id number] [place] [address] 79856- 0828 15 Jun, 2015 [facility] [id number] [place] [address] 82777- 5062 11 Jun, 2015 High risk medication use V58.69 [facility] [id number] [place] [address] [id number]- 2225 Jun, [facility] [id number] [place] [address] [id number]- 0602 Jun, Bipolar 1 disorder F31.9 ; Overdose T50.901A and Chronic pain G89.29 [facility] [address] [id number] [place] [address] 18759- 7774 Jun, Bipolar disorder F31.9 ; Posttraumatic stress disorder F43.10 and Borderline personality disorder F60.3 [facility] [id number] [place] [address] 90216- 9387 Jun, [facility] [address] 78097- 9868 Jun, [facility] [id number] [place] [address] 12584- 4976 Jun, Keloid L91.0 [facility] [id number] [place] [address] 13897- 7510 Jun, [facility] [id number] [place] [address] 59365- 8668 May, [facility] [id number] [place] [address] 85550- 7645 May, [facility] [id number] [place] [address] 60755- 4252 May, Pelvic pain R10.2 [facility] [id number] [place] [address] 60577- 5965 May, [facility] [id number] [place] [address] 59329- 4282 May, Pain of left thumb M79.645 ; Incisional pain R20.8 ; Pelvic pain R10.2 and Essential hypertension I10 [facility] [id number] [place] [address] 27753- 7220 May, [facility] [address] [place] [address]- 5907 May, [facility] [address] [id number] [id number] May, Dental examination Z01.20 and Necrosis of pulp K04.1 [facility] [address] [facility] [id number] [address]- 6551 Apr, [facility] [address] [facility] [id number] [place] [address] 71693- 6018 Apr, [facility] [address] [facility] [id number] [place] [address] 93191- 9015 Apr, [facility] [id number] [place] [address] 63387- 3194 Apr, [facility] [address] [id number] [address]- 9629 Apr, [facility] [id number] [place] [address] 43913- 2553 Apr, [facility] [address] [id number] [address]- 2996 Apr, [facility] [id number] [place] [address] 77717- 6445 Apr, [facility] [id number] [address]- 4014 Mar, [facility] [address] [id number] [address]- 5294 Mar, [facility] [address] [id number] [address]- 0795 Mar, [facility] [id number] [place] [address] 24178- 2751 Mar, [facility] [address] [id number] [address]- 5484 Feb, [facility] [id number] [place] [address] 71992- 8264 Feb, [facility] [id number] [address]- 6532 Feb, [facility] [id number] [address]- 5021 Feb, [facility] [id number] [address]- 2177 Feb, [facility] [id number] [place] [address] 27684- 8084 Feb, [facility] [id number] [place] [address] 60816- 6955 Feb, [facility] [id number] [place] [address] 03482- 3025 Feb, Dermatofibroma of left lower leg D23.72 [facility] [id number] [place] [address] 81879- 7800 Feb, Hematochezia 578.1 ; Low back pain M54.5 ; High risk medication use V58.69 ; Cervicalgia M54.2 and Anxiety F41.9 [facility] [address] [place] [address] [id number] [id number] Feb, Dental examination Z01.20 ; Pulpitis K04.0 and Dental caries, unspecified K02.9 [facility] [address] [place] [address] [id number] [id number] Feb, Dental examination Z01.20 [facility] [address]00565[address] [address]- 6017 30 Jan, 2015 [facility] [id number] [place] [address] 62406- 2981 Jan, [facility] [id number] [address]- 8446 Jan, [facility] [id number] [address]- 6908 Jan, [facility] [address] [id number] [place] [address]- 5113 Dec, [facility] [address] [id number] [place] [address]- 6830 Dec, [facility] [address] [id number] [place] [address]- 1334 Dec, [facility] [address] [id number] [place] [address]- 9939 Dec, [facility] [address] [id number] [place] [address]- 1742 Dec, [facility] [address] [id number] [place] [address]- 2057 Dec, [facility] [address] [id number] [place] [address]- 4655 Dec, [facility] [address] [id number] [address]- 6074 Dec, [facility] [address] [facility] [id number][place] [id number] Nov, Encounter for removal of sutures V58.32 [facility] [address] [id number] [place] [address]- 2731 Nov, [facility] [address] [id number] [place] [address]- 3020 Nov, [facility] [address] [id number] [place] [address]- 0779 Nov, [facility] [address] [id number] [place] [address]- 4485 Nov, [facility] [address] [id number] [place] [address]- 6360 Nov, [facility] [address] [id number] [place] [address]- 2763 Nov, [facility] [id number] [address]- 4620 Nov, [facility] [id number] [address]- 1074 Nov, Dermatofibroma 216.9 [facility] [id number] [address]- 6547 Nov, [facility] [id number] [address]- 8324 Nov, [facility] [id number] [address]- 9737 Oct, [facility] [id number] [place] [address] 69181- 3726 Oct, Hematochezia 578.1 ; Abscess 682.9 ; GERD (gastroesophageal reflux disease) 530.81 ; Visual disturbance of one eye 368.9 and High risk medication use V58.69 [facility] [address]00565[address] [address]- 5917 Oct, [facility] [address]65[address] [address]- 8949 Oct, [facility] [address]65[address] [address]- 1726 Oct, [facility] [address]65[address] [address]- 5405 September, [facility] [id number] [address]- 7974 September, [facility] [id number] [address]- 9045 September, [facility] [id number] [address]- 0165 September, [facility] [id number] [address]- 9576 September, [facility] [id number] [address]- 4880 September, Colon cancer screening V76.51 [facility] [address] [facility] [id number] [place] [address]- 6509 September, [facility] [place] [facility] [address] [facility] [id number] [place] [address]- 7176 Aug, [facility] [address] [facility] [id number] [place] [address]- 1528 Aug, [facility] [place] [facility] [address] [facility] [id number] [place] 5775 Jul, [facility] [address] [facility] [id number] [place] [address]- 9457 Jul, [facility] [address] [id number] [place]- 1053 Jul, [facility] [id number] [place] [address]- 1947 Jul, [facility] [address] [id number] [address]- 2298 Jun, [facility] [id number] [place] [address]- 8525 Jun, [facility] [address] [id number] [address]- 7979 Jun, [facility] [place] [facility] [address] [id number] 9631 Jun, [facility] [address] [id number] [address]- 3451 Jun, [facility] [place] [facility] [address] [id number] [place] [address]- 2852 Jun, [facility] [place] [facility] [address] [facility] [id number] [place] [address]- 0987 May, [facility] [place] [facility] [address] [id number] [address]- 6271 May, [facility] [place] [facility] [address] [id number] [place] [address]- 4834 May, [facility] [place] [facility] [address] [id number] [place] [address]- 1310 May, [facility] [place] [facility] [address] [id number] [place] [address]- 4685 May, [facility] [place] [facility] [address] [id number] [place] [address]- 6266 May, [facility] [place] [facility] [address] [id number] [place] [address]- 3071 May, [facility] [place] [facility] [address] [id number] [place] [address]- 0601 May, [facility] [place] [facility] [address] [id number] [place] [address]- 1505 Apr, [facility] [place] [facility] [address] [id number] [place] [address]- 6986 Apr, [facility] [place] [facility] [address] [id number] [place] [address]- 4889 Apr, [facility] [place] [facility] [address] [id number] [place] [address]- 2130 Apr, [facility] [place] [facility] [address] [id number] [place] [address]- 9391 Apr, [facility] [place] [facility] [address] [id number] [place] [address]- 6039 Apr, [facility] [place] [facility] [address] [id number] [place] [address]- 2132 Apr, [facility] [place] [facility] [address] [id number] [place] [address]- 2834 Apr, [facility] [place] [facility] [address] [id number] [place] [address]- 7540 Mar, [facility] [place] [facility] [address] [id number] [place] [address]- 2974 Mar, [facility] [place] [facility] [address] [id number] [place] [address]- 1871 Mar, [facility] [place] [facility] [address] [id number] [place] [address]- 1066 Mar, [facility] [place] [facility] [address] [id number] [place] [address]- 1196 Mar, [facility] [place] [facility] [address] [id number] [place] [address]- 7761 Mar, [facility] [place] [facility] [address] [id number] [place] [address]- 8574 Mar, [facility] [place] [facility] [address] [id number] [place] [address]- 5339 Mar, [facility] [place] [facility] [address] [id number] [place] [address]- 7943 Mar, [facility] [place] [facility] [address] [id number] [place] [address]- 6473 Mar, [facility] [place] [facility] [address] [id number] [place] [address]- 6185 Feb, [facility] [place] [facility] [address] [id number] [place] [address]- 2995 Feb, [facility] [place] [facility] [address] [id number] [place] [address]- 2911 Jan, [facility] [place] [facility] [address] [id number] [place] [address]- 2200 Jan, [facility] [place] [facility] [address] [id number] [place] [address]- 9902 Jan, [facility] [place] [facility] [address] [id number] [place] [address]- 6075 Jan, [facility] [place] [facility] [address] [id number] [place] [address]- 3152 Dec, [facility] [place] [facility] [address] [id number] [place] [address]- 8758 Dec, [facility] [place] [facility] [address] [id number] [place] [address]- 6122 Dec, [facility] [place] [facility] [address] [id number] [place] [address]- 4908 Dec, [facility] [place] [facility] [address] [id number] [place] [address]- 3044 Dec, [facility] [place] [facility] [address] [id number] [place] [address]- 1047 Dec, [facility] [place] [facility] [address] [id number] [place] [address]- 4766 Nov, [facility] [place] [facility] [address] [id number] [place] [address]- 4191 Nov, [facility] [place] [facility] [address] [id number] [place] [address]- 4048 Oct, [facility] [place] [facility] [address] [id number] [place] [address]- 8873 Oct, [facility] [place] [facility] [address] [id number] [place] [address]- 0923 Oct, [facility] [place] [facility] [address] [id number] [place] [address]- 2544 Oct, [facility] [place] [facility] [address] [id number] [place] [address]- 8876 September, [facility] [place] [facility] [address] [id number] [place] [address]- 8865 September, [facility] [place] [facility] [address] [id number] [place] [address]- 5450 September, [facility] [place] [facility] [address] [id number] [place] [address]- 7881 September, [facility] [place] [facility] [address] [id number] [place] [address]- 8073 September, [facility] [place] [facility] [address] [id number] [place] [address]- 7255 September, [facility] [place] [facility] [address] [id number] [place] 1914 September, [facility] [place] [facility] [address] [id number] [place] [address]- 6637 September, [facility] [place] [facility] [address] [id number] [place] [address]- 0881 Aug, [facility] [place] [facility] [address] [id number] [place] [address]- 7317 Aug, [facility] [place] [facility] [address] [id number] [place] [address]- 6736 Aug, [facility] [place] [facility] [address] [id number] [place] [address]- 5101 Aug, [facility] [place] [facility] [address] [id number] [place] [address]- 5496 Aug, [facility] [place] [facility] [address] [id number] [place] [address]- 2144 Aug, [facility] [place] [facility] [address] [id number] [place] [address]- 1131 Jul, [facility] [place] [facility] [address] [id number] [place] [address]- 2297 Jul, [facility] [place] [facility] [address] [id number] [place] [address]- 0122 Jul, [facility] [place] [facility] [address] [id number] [place] [address]- 7327 Jul, [facility] [place] [facility] [address] [id number] [place] [address]- 9486 Jun, [facility] [place] [facility] [address] [id number] [place] [address]- 4600 Jun, [facility] [place] [facility] [address] [id number] [place] [address]- 0058 Jun, [facility] [address] [id number] [place] [address]- 4349 Jun, [facility] [address] [id number] [place] [address]- 2386 Jun, [facility] [address] [id number] [place] [address]- 4535 Jun, [facility] [address] [id number] [place] [address]- 9876 May, [facility] [address] [id number] [place] [address]- 9592 May, [facility] [address] [id number] [place] [address]- 3199 May, [facility] [address] [id number] [place] [address]- 4672 May, [facility] [address] [id number] [place] [address]- 3156 May, [facility] [address] [id number] [place] [address]- 9516 May, [facility] [address] [id number] [place] [address]- 4900 May, [facility] [address] [id number] [place] [address]- 3141 May, [facility] [address] [id number] [place] [address]- 6998 Apr, [facility] [address] [place] [id number] Apr, [facility] [address] [id number] [place] [address]- 7716 Apr, [facility] [address] [id number] [place] 9044 Apr, [facility] [place] [facility] [address] [id number] [place] [address]- 1579 Apr, [facility] [place] [facility] [address] [id number] [place] [address]- 4165 Apr, [facility] [place] [facility] [address] [id number] [place] [address]- 7451 05 Apr, 2013 [facility] [place] [facility] [address] [id number] [place] [address]- 0541 05 Apr, 2013 [facility] [place] [facility] [address] [id number] [place] [address]- 7697 Apr, [facility] [place] [facility] [address] [id number] [place] [address]- 7001 Mar, [facility] [place] [facility] [address] [id number] [place] [address]- 5233 Mar, [facility] [place] [facility] [address] [id number] [address]- 4343 Mar, [facility] [place] [facility] [address] [id number] [place] [address]- 6882 Mar, [facility] [place] [facility] [address] [id number] [place] [address]- 4763 Mar, [facility] [place] [facility] [address] [id number] [place] [address]- 3715 Feb, [facility] [place] [facility] [address] [id number] [place] [address]- 7002 Feb, [facility] [place] [facility] [address] [id number] [place] [address]- 7861 Feb, [facility] [place] [facility] [address] [id number] [place] [address]- 2180 14 Feb, 2013 [facility] [place] [facility] [address] [id number] [place] [address]- 9685 25 Jan, 2013 [facility] [place] [facility] [address] [id number] [place] [address]- 2291 Jan, [facility] [address] [id number] [place] [address]- 5715 Jan, [facility] [address] [id number] [place] [address]- 4166 Dec, [facility] [address] [id number] [place] [address] Dec, [facility] [address] [id number] [place] [address] Dec, [facility] [address] [id number][place] [id number] Nov, [facility] [address] [id number][place] [id number] Oct, [facility] [address] [facility] [id number] [place] [address] Oct, [facility] [place] [facility] [address] [id number] [place] [address] September, [facility] [address] [id number] [place] [address] September, [facility] [address] [id number] [place] [address] September, [facility] [place] [facility] [address] [id number] [place] [address] September, [facility] [place] [facility] [address] [id number] [place] [address] September, [facility] [place] [facility] [address] [id number] [place] [address] Jul, [facility] [place] [facility] [address] [id number] [place] [address] Jul, [facility] [place] [facility] [address] [id number] [place] [address] Jul, [facility] [place] [facility] [address] [id number] [place] [address] Jul, [facility] [address] [id number] [place] [address] Jun, [facility] [place] [facility] [address] [id number] [place] [address] Jun, [facility] [place] [facility] [address] [id number] [place] [address] Jun, [facility] [place] [facility] [address] [id number] [place] [address] Jun, [facility] [place] [facility] [address] [id number] [place] [address] May, [facility] [place] [facility] [address] [id number] [place] [address] Mar, [facility] [place] [facility] [address] [facility] [id number] [place] [address] Mar, [facility] [address] [id number] [place] [address] Mar, [facility] [place] [facility] [address] [facility] [id number] [place] [address] Mar, [facility] [place] [facility] [address] [facility] [id number] [place] [address] Mar, [facility] [place] [facility] [address] [facility] [id number] [place] [address] 2547 Mar, [facility] [place] [facility] [address] [id number] [place] [address] Mar, [facility] [place] [facility] [address] [id number] [place] [address] Mar, [facility] [place] [facility] [address] [facility] [id number] [place] [address] Feb, [facility] [place] [facility] [address] [id number] [place] [address] Feb, [facility] [place] [facility] [address] [id number] [place] [address] Feb, [facility] [place] [facility] [address] [id number] [place] [address] Feb, [facility] [place] [facility] [address] [id number] [place] [address] Feb, [facility] [place] [facility] [address] [id number] [place] [address] Feb, [facility] [place] [facility] [address] [id number] [place] [address] Feb, [facility] [address] [facility] [address] [id number] [place] [id number] Jan, [facility] [address] [id number] [place] [id number] Dec, [facility] [address] [id number] [place] [id number] Dec, [facility] [place] [facility] [address] [id number] [place] [address] Nov, [facility] [place] [facility] [address] [facility] [id number] [place] [address] Nov, [facility] [place] [facility] [address] [facility] [id number] [place] [address] Oct, [facility] [place] [facility] [address] [facility] [id number] [place] [address] Jul, [facility] [place] [facility] [address] [facility] [id number] [place] [address] Jul, [facility] [place] [facility] [address] [facility] [id number] [place] [address] May, [facility] [place] [facility] [address] [facility] [id number] [place] [address] May, [facility] [place] [facility] [address] [facility] [id number] [place] [address] Nov, [facility] [id number] [address] Mar, [facility] [id number] [address] Dec, [facility] [id number] [address] Nov, [facility] [id number] [address] Aug, [facility] [id number] [address] Apr, [facility] [id number] [address] Apr, [facility] [id number] [address] Mar, [facility] [id number] [address] Feb, [facility] [id number] [address] September, [facility] [id number] [address] Jun, [facility] [address] [id number] [address] Mar, IMMUNIZATIONS No Known Immunizations SOCIAL HISTORY Never Assessed REASON FOR VISIT f/u PLAN OF CARE Activity Details Follow Up Next available Reason: F/U VITAL SIGNS MEDICATIONS Unknown Medications RESULTS No Results PROCEDURES Procedure Date Ordered Result Body Site Psychotherapy, patient &/family, 45 minutes, established patient Jan 12, 2018 INSTRUCTIONS MEDICATIONS ADMINISTERED No Known Medications [...] hernia Hospitalization History Went by ambulance [facility] as un[facility] 05/2015 Hospitalization History [facility] for [facility] psych hold 05/2015
--- OUTSIDE RECORDS SUMMARY | 2018-03-15 10:40 | XMS REPORT ---
Author Author HERBERT MCGOWAN Organization [facility] Address [facility] [place] [address] Care Team Providers Care Right Of Way Agent Name Role Phone HERBERT MCGOWAN Unavailable PROBLEMS Type Condition ICD9-CM Code ENH28-JG Code Onset Dates Condition Status SNOMED Code Problem Psoriasis L40.9 Active 3178066 Problem Relationship problem with family member Z63.8 Active 645608542 Problem Essential hypertension I10 Active 36862553 Problem Anxiety F41.9 Active 53005153 Problem Visual disturbance H53.9 Active 50310595 Problem Rheumatoid arthritis involving multiple sites with positive rheumatoid factor M05.79 Active 815841555 Problem Bilateral low back pain with sciatica, sciatica laterality unspecified M54.40 Active 971722879 Problem Hypokalemia E87.6 Active 34342358 Problem Lumbago with sciatica, left side M54.42 Active 982123951 Problem Other chronic pain G89.29 Active 46521261 Problem 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 Active 131331877 Problem Blindness of right eye H54.40 Active 853313877 Problem Posttraumatic stress disorder F43.10 Active 63066868 Problem Overdose T50.901A Active 61987781 Problem Bipolar disorder F31.9 Active 51834191 Problem Borderline personality disorder F60.3 Active 24805142 Problem Obstructive sleep apnea G47.33 Active 67580151 Problem Acquired hypothyroidism E03.9 Active 687449958 Problem Pelvic pain R10.2 Active 51691787 Problem Chronic pain G89.29 Active 50625848 Problem Gastro-esophageal reflux disease without esophagitis K21.9 Active 436895972 Problem Anemia due to other cause, not classified D64.89 Active 786538135 Problem Social anxiety disorder F40.10 Active 64688248 Problem Morbid obesity, unspecified obesity type E66.01 Active 869543174 ALLERGIES No Information ENCOUNTERS Encounter Location Date Diagnosis [facility] [address], [place] [address] Feb, [facility] [address], [place] [address] Feb, [facility] [address], [place] [address] Feb, [facility] [address] [place] [place] [address] 62314- 6427 Jan, [facility] [id number] [place] [address] 25540- 9855 Dec, Bipolar disorder F31.9 ; Posttraumatic stress disorder F43.10 and Borderline personality disorder F60.3 [place] [address] [place] [address] 03386- 2677 Dec, 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 ; Anemia due to other cause, not classified D64.89 ; Rheumatoid arthritis involving multiple sites with positive rheumatoid factor M05.79 ; 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3 [facility] [address], [place] [address] Nov, Rheumatoid arthritis involving multiple sites with positive rheumatoid factor M05.79 ; Dysuria R30.0 and Blindness of right eye H54.40 [place] [address], [place] [address] 2796 Nov, Bipolar disorder F31.9 ; Posttraumatic stress disorder F43.10 ; Social anxiety disorder F40.10 and Relationship problem with family member Z63.8 [place] [address], [place] [address] 245[address] Nov, [place] [address] [place] [id number] [place] [address] 91058- 1900 Nov, [place] [address] [place] [place] [address] 21870- 0730 Nov, 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 ; Adverse effect of antineoplastic and immunosuppressive drugs, initial encounter T45.1X5A ; Anemia , unspecified D64.9 and BMI 40.0-44.9, adult Z68.41 [address] [place] [address] 00178- 1349 Nov, Anemia due to other cause, not classified D64.89 [place] [address] [place] [address] 57334- 3827 Oct, Adverse effect of drug, initial encounter T50.905A and Acute anemia D64.9 [place] [address], [place] [address] 4[address] Oct, Anemia due to other cause, not classified D64.89 ; Dysuria R30.0 and Urinary tract infection without hematuria, site unspecified N39.0 [place] [address], [place] [address] Oct, [place] [address] [place] [address] 09333- 5095 Oct, [place] [address] [place] [address] 54275- 8709 Oct, 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 [facility] [address] [id number] [id number] Oct, [place] [address], [place] [address] 0379 13 Oct, 2017 [facility] [id number] [place] [address] 57884- 2991 12 Oct, 2017 [facility] [address] [place] [address] 32240- 4853 11 Oct, 2017 Bipolar disorder F31.9 ; Posttraumatic stress disorder F43.10 and Borderline personality disorder F60.3 [place] [id number] [place] [address] 06499- 5286 11 Oct, 2017 Rheumatoid arthritis involving multiple sites with positive rheumatoid factor M05.79 ; 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 and Anxiety F41.9 [place] [address] [place] [address] 95789- 8634 07 Oct, 2017 [place] [id number] [place] [address] 52344- 6793 September, 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 [place] [address] [place] [address] 38940- 8927 September, Bipolar disorder F31.9 ; Posttraumatic stress disorder F43.10 and Borderline personality disorder F60.3 [place] [address] [place] [address] 46843- 9444 24 Aug, 2017 BMI 40.0-44.9, adult Z68.41 ; Bipolar disorder F31.9 ; Posttraumatic stress disorder F43.10 and Social anxiety disorder F40.10 [place] [address] [place] [address] 77159- 9012 Aug, Bipolar disorder F31.9 ; Posttraumatic stress disorder F43.10 and Borderline personality disorder F60.3 [place] [address] [place] [address] 53997- 2184 Aug, 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 [place] [address] [place] [address] 67293- 5248 Jul, Bipolar disorder F31.9 ; Posttraumatic stress disorder F43.10 and Borderline personality disorder F60.3 [facility] [address] [place] [address] 32971- 2892 Jul, [facility] [id number] [place] [address] 95713- 4464 Jun, Bipolar disorder F31.9 ; Posttraumatic stress disorder F43.10 and Borderline personality disorder F60.3 [facility] [id number] [place] [address] 52889- 0328 Jun, Blindness of right eye H54.40 and Acquired hypothyroidism E03.9 [facility] [id number] [place] [address] 08787- 1490 Jun, [facility] [id number] [place] [address] 84253- 9805 May, Posttraumatic stress disorder F43.10 ; Social anxiety disorder F40.10 and Bipolar disorder F31.9 [facility] [id number] [place] [address] 42531- 5615 May, Bipolar disorder F31.9 ; Posttraumatic stress disorder F43.10 and Borderline personality disorder F60.3 [facility] [id number] [address] 69027- 6658 May, [facility] [id number] [place] [address] 58104- 8435 May, [facility] [id number] [place] [address] 08874- 2880 Apr, Bipolar disorder F31.9 ; Posttraumatic stress disorder F43.10 and Borderline personality disorder F60.3 [place] [id number] [address] Apr, [facility] [id number] [place] [address] 27898- 3625 Apr, [facility] [id number] [place] [address] 73253- 1603 Mar, Hydradenitis L73.2 [facility] [address], [place] [address]- 5838 15 Mar, 2017 Lumbago with sciatica, left side M54.42 ; Other chronic pain G89.29 ; Morbid obesity, unspecified obesity type E66.01 ; Hydradenitis L73.2 and BMI 40.0-44.9, adult Z68.41 [place] [address] [id number] [place] [address] 78111- 7268 Mar, Bipolar disorder F31.9 ; Posttraumatic stress disorder F43.10 and Borderline personality disorder F60.3 [place] [address] [place] [id number] [address] 38328- 5169 Mar, Social anxiety disorder F40.10 ; Bipolar disorder F31.9 and Relationship problem with family member Z63.8 [address] [place] [address] 35537- 4537 Mar, [facility] [address] [id number] [id number] Mar, Dental examination Z01.20 [place] [address] [place] [address] [id number] [place] [address] 28929- 2356 Mar, [place] [id number] [place] [address] 88428- 6025 Feb, Bipolar disorder F31.9 ; Posttraumatic stress disorder F43.10 and Borderline personality disorder F60.3 [place] [id number] [id number] Feb, [facility] [address], [place] [address]- 5693 14 Jan, 2017 Bipolar disorder F31.9 ; Posttraumatic stress disorder F43.10 and Borderline personality disorder F60.3 [facility] [address] [id number] [address] Jan, [place] [id number] [place] [address] 61496- 4784 Jan, [facility] [address] [id number] [id number] Jan, [facility] [id number] [place] [address] 77159- 4790 Dec, Bipolar disorder F31.9 ; Posttraumatic stress disorder F43.10 and Borderline personality disorder F60.3 [place] [address], [place] [address]- 1069 Dec, [facility] [address], [place] [address]- 6239 Dec, [facility] [id number] [address] Dec, [facility] [id number] [place] [address] 89184- 2388 Nov, Bipolar 1 disorder F31.9 ; Posttraumatic stress disorder F43.10 and Social anxiety disorder F40.10 [place] [address] [place] [address] 89667- 4154 Nov, Bipolar disorder F31.9 ; Posttraumatic stress disorder F43.10 and Borderline personality disorder F60.3 [place] [address], [place] [address]- 0979 Nov, Morbid obesity, unspecified obesity type E66.01 [place] [address], [place] [address]- 6380 Nov, [address] [id number] [id number] Oct, Encounter for dental examination and cleaning without abnormal findings Z01.20 [place] [address] [place] [address] [id number] [place] [address] 84762- 6712 Oct, Morbid obesity, unspecified obesity type E66.01 and Acute seasonal allergic rhinitis due to pollen J30.1 [place] [address], [place] [address]- 7702 Oct, Bipolar disorder F31.9 ; Posttraumatic stress disorder F43.10 and Borderline personality disorder F60.3 [place] [address] [place] [address] [id number] [address] 83251- 0083 September, Morbid obesity, unspecified obesity type E66.01 and Psoriasis L40.9 [place] [address] 38592- 7604 September, Bipolar disorder F31.9 ; Posttraumatic stress disorder F43.10 and Borderline personality disorder F60.3 [place] [address] 54850- 7493 September, Chronic pain G89.29 [place] [address] 72371- 5004 Aug, Other acute nonsuppurative otitis media of right ear H65.191 and Morbid obesity, unspecified obesity type E66.01 [place] [address] 52719- 9739 Aug, Bipolar 1 disorder F31.9 ; Posttraumatic stress disorder F43.10 and Social anxiety disorder F40.10 [place] [address] 81613- 3244 Aug, Bipolar disorder F31.9 ; Posttraumatic stress disorder F43.10 and Borderline personality disorder F60.3 [place] [id number] [place] [address] 26223- 8546 Jul, Morbid obesity due to excess calories E66.01 ; Gastro- esophageal reflux disease without esophagitis K21.9 and Chronic pain G89.29 [place] [address] [place] [address] [id number] [place] [address] 90923- 4366 Jul, Morbid obesity due to excess calories E66.01 [place] [address] [place] [address] [id number] [place] [address] 18241- 3450 Jul, [place] [address] 91235- 5731 Jul, [place] [address], [place] [address]- 2646 02 Jul, 2016 Morbid obesity due to excess calories E66.01 [facility] [id number] [place] [place] [address] 34452- 0193 Jul, Bipolar disorder F31.9 ; Posttraumatic stress disorder F43.10 and Borderline personality disorder F60.3 [facility] [id number] [place] [address] 22292- 0005 16 Jun, 2016 [facility] [id number] [place] [address] 28153- 5638 15 Jun, 2016 Morbid obesity due to excess calories E66.01 [facility] [id number] [place] [address] 17860- 5950 Jun, [facility] [id number] [place] [address] 55992- 2058 Jun, Morbid obesity, unspecified obesity type E66.01 [facility] [id number] [place] [address] 80007- 1076 Jun, Bipolar disorder F31.9 ; Posttraumatic stress disorder F43.10 and Borderline personality disorder F60.3 [facility] [id number] [place] [address] 34003- 8294 Jun, [facility] [address], [place] [address]- 5645 Jun, [facility] [id number] [place] [address] 42838- 4134 02 Jun, 2016 Acquired hypothyroidism E03.9 and Morbid obesity due to excess calories E66.01 [facility] [address] [place] [address] 60515- 0875 May, Bipolar disorder F31.9 ; Posttraumatic stress disorder F43.10 and Borderline personality disorder F60.3 [facility] [address] [place] [address] 80457- 2314 Apr, Bipolar 1 disorder F31.9 ; Posttraumatic stress disorder F43.10 and Social anxiety disorder F40.[address] [id number] [id number] Apr, Encounter for dental examination Z01.20 [facility] [address] [place] [address] 68864- 9693 08 Apr, 2016 [facility] [id number] [place] [address] 82575- 3722 08 Apr, 2016 Acquired hypothyroidism E03.9 [facility] [id number] [place] [address] 571343- 4402 Apr, Acquired hypothyroidism E03.9 [facility] [id number] [place] [address] 03942- 4025 Apr, Bipolar disorder F31.9 ; Posttraumatic stress disorder F43.10 and Borderline personality disorder F60.3 [facility] [id number] [place] [address] 16000- 4215 Apr, Acquired hypothyroidism E03.[address] [id number] [id number] Mar, Encounter for dental examination and cleaning without abnormal findings Z01.20 [facility] [address] [place] [address] 60232- 6972 08 Mar, 2016 [facility] [id number] [place] [address] 31174- 0978 Mar, Bipolar disorder F31.9 ; Posttraumatic stress disorder F43.10 and Borderline personality disorder F60.3 [facility] [address] [place] [address] 56958- 0756 Mar, Essential (primary) hypertension I10 [facility] [id number] [place] [address] 31487- 9265 Feb, [facility] [id number] [place] [address] 65878- 1537 Feb, [facility] [address] [place] [address] 21788- 8361 11 Feb, 2016 Pelvic pain R10.2 ; Lipid screening Z13.220 ; Fatigue, unspecified type R53.83 and Weight gain R63.5 [facility] [id number] [place] [address] 27376- 7403 11 Feb, 2016 Bipolar disorder F31.9 ; Posttraumatic stress disorder F43.10 and Borderline personality disorder F60.3 [place] [id number] [place] [address] 77076- 4727 07 Feb, 2016 [place] [address] 63757- 4293 05 Feb, 2016 [place] [id number] [place] [address] 66298- 9684 30 Jan, 2016 Obstructive sleep apnea syndrome G47.33 [place] [id number] [place] [address] 25338- 4869 26 Jan, [address] [id number] [id number] 19 Jan, 2016 Dental examination Z01.20 [place] [address] [id number] [place] [address] 10919- 4142 13 Jan, 2016 Bipolar 1 disorder F31.9 ; Posttraumatic stress disorder F43.10 and Social anxiety disorder F40.10 [place] [id number] [place] [address] 73343- 6756 Jan, Bipolar disorder F31.9 ; Posttraumatic stress disorder F43.10 and Borderline personality disorder F60.3 [place] [address] [place] [address] 61870- 4107 13 Jan, 2016 Sciatica of left side M54.32 [facility] [id number] [place] [address] 18572- 5978 06 Jan, 2016 [place] [address] [place] [id number] [place] [address] 36564- 4397 Dec, [facility] [id number] [place] [address] 68677- 7839 Dec, [facility] [id number] [place] [address] [id number]- 9555 Dec, Bipolar disorder F31.9 ; Posttraumatic stress disorder F43.10 and Borderline personality disorder F60.3 [facility] [id number] [place] [address] 52722- 7080 Nov, [facility] [id number] [place] [address] 32891- 7624 Nov, Insomnia, unspecified type G47.00 [facility] [id number] [place] [address] 82818- 6690 Nov, Bipolar disorder F31.9 ; Posttraumatic stress disorder F43.10 and Borderline personality disorder F60.3 [facility] [id number] [place] [address] 07476- 6413 Nov, [facility] [id number] [place] [address] 41089- 8032 Nov, [facility] [id number] [place] [address] 57957- 7305 Oct, Bipolar disorder F31.9 ; Posttraumatic stress disorder F43.10 and Borderline personality disorder F60.3 [facility] [id number] [place] [address] 70941- 9531 Oct, [facility] [id number] [address] 23372- 0763 Oct, Essential (primary) hypertension I10 [facility] [id number] [place] [address] 70572- 9189 September, Bipolar 1 disorder F31.9 ; Posttraumatic stress disorder F43.10 and Social anxiety disorder F40.10 [facility] [id number] [place] [address] 91695- 3062 September, Bipolar disorder F31.9 ; Posttraumatic stress disorder F43.10 and Borderline personality disorder F60.3 [facility] [address] [id number] [id number] September, Encounter for dental examination and cleaning without abnormal findings Z01.20 [facility] [address], [place] [address]- 9270 September, [facility] [id number] [place] [address] 47888- 7333 September, [facility] [id number] [place] [address] 48766- 4889 Aug, [facility] [id number] [place] [address] 63399- 5150 Aug, Bipolar disorder F31.9 ; Posttraumatic stress disorder F43.10 and Borderline personality disorder F60.3 [facility] [id number] [address] 09819- 2969 Aug, [facility] [id number] [place] [address] 86726- 1374 Aug, [facility] [id number] [place] [address] 33086- 3930 Aug, [facility] [id number] [place] [address] [id number] Jul, Acute nasopharyngitis [common cold] J00 and Other viral agents as the cause of diseases classified elsewhere B97.89 [facility] [id number] [place] [address] [phone] Jul, Chronic pain G89.29 and Allergic rhinitis J30.9 [facility] [id number] [place] [address] [phone] Jul, Bipolar 1 disorder F31.9 ; Posttraumatic stress disorder F43.10 and Social anxiety disorder F40.10 [facility] [id number] [place] [address] [phone] Jul, Bipolar 1 disorder F31.9 [facility] [id number] [place] [address] [id number] 16 Jul, 2015 Bipolar disorder F31.9 ; Posttraumatic stress disorder F43.10 and Borderline personality disorder F60.3 [facility] [id number] [place] [address] 86363- 5852 14 Jul, 2015 [facility] [id number] [place] [place] [address] 76710- 9242 14 Jul, 2015 [facility] [id number] [place] [address] 43649- 7871 11 Jul, 2015 [facility] [id number] [place] [place] [address] 75185- 4993 10 Jul, 2015 Anxiety F41.9 [facility] [id number] [place] [address] 43520- 4752 10 Jul, 2015 Chronic pain G89.29 and Encounter for therapeutic drug level monitoring Z51.81 [facility] [id number] [place] [address] 48220- 5431 09 Jul, 2015 Chronic pain G89.29 and Encounter for therapeutic drug level monitoring Z51.81 [facility] [id number] [place] [address] 20720- 3624 08 Jul, 2015 [facility] [id number] [place] [place] [address] 63351- 1955 19 Jun, 2015 [facility] [id number] [place] [address] 59946- 1836 19 Jun, 2015 [facility] [id number] [place] [address] 05757- 1613 15 Jun, 2015 [facility] [id number] [place] [place] [address] 60431- 3399 15 Jun, 2015 [facility] [id number] [place] [address] 38746- 2250 11 Jun, 2015 High risk medication use V58.69 [facility] [id number] [place] [address] 18567- 7177 Jun, [facility] [id number] [place] [address] 14382- 5358 Jun, Bipolar 1 disorder F31.9 ; Overdose T50.901A and Chronic pain G89.29 [facility] [id number] [place] [address] 38102- 9645 Jun, Bipolar disorder F31.9 ; Posttraumatic stress disorder F43.10 and Borderline personality disorder F60.3 [facility] [id number] [place] [address] 70127- 9982 Jun, [facility] [address] 82346- 4238 Jun, [facility] [id number] [place] [address] 17718- 0961 Jun, Keloid L91.0 [facility] [id number] [place] [address] 02662- 2771 Jun, [facility] [id number] [place] [address] 11767- 9753 May, [facility] [id number] [place] [address] 36088- 4887 May, [facility] [id number] [place] [address] 99998- 3333 May, Pelvic pain R10.2 [facility] [id number] [place] [address] 04749- 4362 May, [facility] [id number] [place] [address] 05792- 5278 May, Pain of left thumb M79.645 ; Incisional pain R20.8 ; Pelvic pain R10.2 and Essential hypertension I10 [facility] [id number] [place] [address] 84945- 0635 May, [facility] [address] [place] [address] May, [facility] [address] [id number] [id number] May, Dental examination Z01.20 and Necrosis of pulp K04.1 [facility] [address] [facility] [id number], [place] [address]- [address] Apr, [facility] [address] [facility] [id number] [place] [address] 56326- [address] Apr, [facility] [address] [facility] [id number], [place] [address]- [address] Apr, [facility] [address] [facility] [id number] [place] [address] 94562- 7898 Apr, [facility] [address] [id number] [address]- 5206 Apr, [facility] [address] [id number] [address]- 5449 Apr, [facility] [address] [id number] [address]- 2332 Apr, [facility] [address] [id number], [place] [address]- 2998 Apr, [facility] [address] [id number], [place] [address]- 7874 Mar, [facility] [place] [facility] [address] [facility] [id number], [place] [address]- [address] Mar, [facility] [place] [facility] [address] [facility] [id number], [place] [address]- 5501 Mar, [facility] [place] [facility] [address] [facility] [id number], [place] [address]- [address] Mar, [facility] [place] [facility] [address] [facility] [id number], [place] [address]- [address] Feb, [facility] [place] [facility] [address] [id number] [address]- 8689 Feb, [facility] [address], [place] [address]- 9190 Feb, [facility] [address]100[place], [place] [address]- 8951 Feb, [facility] [address], [place] [address]- 9707 Feb, [facility] [id number] [place] [address] 90864- 9273 Feb, [facility] [id number] [address] 85326- 1345 Feb, [facility] [id number] [place] [address] 05915- 3040 Feb, Dermatofibroma of left lower leg D23.72 [facility] [id number] [place] [address] 55451- 0039 Feb, Hematochezia 578.1 ; Low back pain M54.5 ; High risk medication use V58.69 ; Cervicalgia M54.2 and Anxiety F41.9 [facility] [address] [place] [address] [id number] [id number] Feb, Dental examination Z01.20 ; Pulpitis K04.0 and Dental caries, unspecified K02.9 [facility] [address] [place] [address] [id number] [id number] Feb, Dental examination Z01.20 [facility] [address] [id number], [place] [address]- 4409 30 Jan, 2015 [facility] [address], [place] [address]- 4804 Jan, [facility] [address], [place] [address]- 6725 Jan, [facility] [address], [place] [address]- 9098 Jan, [facility] [address] [id number] [place] [address]- 0271 Dec, [facility] [address] [id number] [place] [address]- 1563 Dec, [facility] [address] [id number] [place] [address]- 9829 Dec, [facility] [address] [id number] [place] [address]- 9097 Dec, [facility] [address] [id number] [place] [address]- 4371 Dec, [facility] [address] [id number] [place] [address]- 7383 Dec, [facility] [address] [id number] [place] [address]- 7581 Dec, [facility] [address] [id number], [place] [address]- 6170 Dec, [facility] [address] [facility] [id number] [id number] Nov, Encounter for removal of sutures V58.32 [facility] [address] [id number] [place] [address]- 2838 Nov, [facility] [address] [id number], [place] [address]- 0843 Nov, [facility] [address] [id number], [place] [address]- 5705 Nov, [facility] [place] [facility] [address] [id number], [place] [address]- 4661 Nov, [facility] [place] [facility] [address] [id number], [place] [address]- 7855 Nov, [facility] [place] [facility] [address] [id number] [place] [address]- 2056 Nov, [facility] [address], [place] [address]- 8397 Nov, [facility] [address], [place] [address]- 0875 Nov, Dermatofibroma 216.9 [facility] [address], [place] [address]- 2013 Nov, [facility] [address], [place] [address]- 2305 Nov, [facility] [address], [place] [address]- 3727 Oct, [facility] [address] [id number] [address]- 4284 Oct, Hematochezia 578.1 ; Abscess 682.9 ; GERD (gastroesophageal reflux disease) 530.81 ; Visual disturbance of one eye 368.9 and High risk medication use V58.69 [facility] [address]005[address], [place] [address]- 0222 Oct, [facility] [address], [place] [address]- 4936 Oct, [facility] [address]005[address], [place] [address]- 3026 Oct, [facility] [address], [place] [address]- 0272 September, [facility] [address], [place] [address]- 6868 September, [facility] [address] [id number], [place] [address]- 5107 September, [facility] [address], [place] [address]- 4024 September, [facility] [address] [id number], [place] [address]- 4204 September, [facility] [address], [place] [address]- 4176 September, Colon cancer screening V76.51 [facility] [id number] [place] [address]- 4084 September, [facility] [place] [facility] [id number] [place] 5197 Aug, [facility] [place] [facility] [id number] [place] [address]- 1011 Aug, [facility] [place] [facility] [address] [facility] [id number] [place] [address]- 0208 Jul, [facility] [place] [facility] [id number] [place] 2204 Jul, [facility] [place] [facility] [id number] [place] [address]- 2986 Jul, [facility] [place] [facility] [id number] [place] [address]- 5633 Jul, [facility] [place] [facility] [address] [id number] [place] [address]- 0891 Jun, [facility] [place] [facility] [id number] [place] [address]- [address] Jun, [facility] [place] [facility] [address], [place] [address]- 9311 Jun, [facility] [place] [facility] [address], [place] [address]- 0340 Jun, [facility] [place] [facility] [address] [id number], [place] [address]- 3037 Jun, [facility] [place] [facility] [address] 7366 Jun, [facility] [place] [facility] [address] [id number], [place] [address]- 2079 May, [facility] [place] [facility] [address]100[place], [place] [address]- 1366 May, [facility] [place] [facility] [address] [id number] [place] [address]- 3686 May, [facility] [place] [facility] [address] [id number] [place] [address]- 7505 May, [facility] [place] [facility] [address] [id number] [place] [address]- 6913 May, [facility] [place] [facility] [address] [id number] [place] [address]- 7203 May, [facility] [place] [facility] [address] [id number] [place] [address]- 6529 May, [facility] [place] [facility] [address] [id number] [place] [address]- 8327 May, [facility] [place] [facility] [address] [id number] [place] [address]- 9364 Apr, [facility] [place] [facility] [address] [id number] [place] [address]- 7179 Apr, [facility] [place] [facility] [address] [id number] [place] [address]- 8035 Apr, [facility] [place] [facility] [address] [id number] [place] [address]- 9738 Apr, [facility] [place] [facility] [address] [id number] [place] [address]- 7964 Apr, [facility] [place] [facility] [address] [id number] [place] [address]- 2444 Apr, [facility] [place] [facility] [address] [id number] [place] 9432 Apr, [facility] [place] [facility] [address] [id number] [place] 7876 Apr, [facility] [place] [facility] [address] [id number] [place] [address]- 0183 Mar, [facility] [place] [facility] [address] [id number] [place] [address]- 8786 Mar, [facility] [place] [facility] [address] [id number] [place] [address]- 8625 Mar, [facility] [place] [facility] [address] [id number] [place] [address]- 3597 Mar, [facility] [place] [facility] [address] [id number] [place] [address]- 8268 Mar, [facility] [place] [facility] [address] [id number] [place] [address]- 2394 Mar, [facility] [place] [facility] [address] [id number] [place] [address]- 2354 Mar, [facility] [place] [facility] [address] [id number] [place] [address]- 1649 Mar, [facility] [place] [facility] [address] [id number] [place] [address]- 1130 Mar, [facility] [place] [facility] [address] [id number] [place] [address]- 7432 Mar, [facility] [place] [facility] [address] [id number] [place] [address]- 7394 Feb, [facility] [place] [facility] [address] [id number] [place] [address]- 9300 Feb, [facility] [place] [facility] [address] [id number] [place] [address]- 3276 Jan, [facility] [place] [facility] [address] [id number] [place] [address]- 1949 Jan, [facility] [place] [facility] [address] [id number] [place] [address]- 5514 Jan, [facility] [place] [facility] [address] [id number] [place] [address]- 4180 Jan, [facility] [place] [facility] [address] [id number] [place] [address]- 0074 Dec, [facility] [place] [facility] [address] [id number] [place] [address]- 6161 Dec, [facility] [place] [facility] [address] [id number] [place] [address]- 2808 Dec, [facility] [place] [facility] [address] [id number] [place] [address]- 6199 Dec, [facility] [place] [facility] [address] [id number] [place] [address]- 7400 Dec, [facility] [place] [facility] [address] [id number] [place] [address]- 6193 Dec, [facility] [place] [facility] [address] [id number] [place] [address]- 5132 Nov, [facility] [place] [facility] [address] [id number] [place] [address]- 1619 Nov, [facility] [place] [facility] [address] [id number] [place] [address]- 0336 Oct, [facility] [place] [facility] [address] [id number] [place] [address]- 9009 Oct, [facility] [place] [facility] [address] [id number] [place] [address]- 8876 Oct, [facility] [place] [facility] [address] [id number] [place] [address]- 9668 Oct, [facility] [place] [facility] [address] [id number] [place] [address]- 8701 September, [facility] [place] [facility] [address] [id number] [place] [address]- 2163 September, [facility] [place] [facility] [address] [id number] [place] [address]- 9310 September, [facility] [place] [facility] [address] [id number] [place] [address]- 5602 September, [facility] [place] [facility] [address] [id number] [place] [address]- 5180 September, [facility] [address] [id number] [place] [address]- 2651 September, [facility] [place] [facility] [address] [id number] [place] [address]- 8306 September, [facility] [place] [facility] [address] [id number] [place] [address]- 0878 September, [facility] [place] [facility] [address] [id number] [place] [address]- 1874 Aug, [facility] [place] [facility] [address] [id number] [place] [address]- 8040 Aug, [facility] [place] [facility] [address] [id number] [place] [address]- 6339 Aug, [facility] [place] [facility] [address] [id number] [place] [address]- 4603 Aug, [facility] [place] [facility] [address] [id number] [place] [address]- 0066 Aug, [facility] [place] [facility] [address] [id number] [place] [address]- 2554 Aug, [facility] [place] [facility] [address] [id number] [place] [address]- 0950 Jul, [facility] [place] [facility] [address] [id number] [place] [address]- 2728 Jul, [facility] [place] [facility] [address] [id number] [place] [address]- 5712 Jul, [facility] [place] [facility] [address] [id number] [place] [address]- 3200 Jul, [facility] [place] [facility] [address] [id number] [place] [address]- 6978 Jun, [facility] [place] [facility] [address] [id number] [place] [address]- 9872 Jun, [facility] [place] [facility] [address] [id number] [place] [address]- 2236 Jun, [facility] [address] [id number] [place] [address]- 0118 Jun, [facility] [address] [id number] [place] [address]- 2356 Jun, [facility] [address] [id number] [place] [address]- 0069 Jun, [facility] [address] [id number] [place] [address]- 7208 May, [facility] [address] [id number] [place] [address]- 8778 May, [facility] [address] [id number] [place] [address]- 8152 May, [facility] [address] [id number] [place] [address]- 1372 May, [facility] [address] [id number] [place] [address]- 3076 May, [facility] [address] [id number] [place] [address]- 2683 May, [facility] [address] [id number] [place] [address]- 1791 May, [facility] [address] [id number] [place] [address]- 6032 May, [facility] [address] [id number] [place] [address]- 5641 Apr, [facility] [address] [place] [id number] Apr, [facility] [address] [id number] [place] [address] Apr, [facility] [address] [id number] [place] [address] Apr, [facility] [address] [id number] [place] [address] Apr, [facility] [place] [facility] [address] [id number] [place] [address] Apr, [facility] [place] [facility] [address] [id number] [place] [address] Apr, [facility] [place] [facility] [address] [id number] [place] [address] 05 Apr, 2013 [facility] [place] [facility] [address] [id number] [place] [address] Apr, [facility] [place] [facility] [address] [id number], [place] [address] Mar, [facility] [place] [facility] [address] [id number] [place] [address] Mar, [facility] [place] [facility] [address] [id number], [place] [address] Mar, [facility] [place] [facility] [address] [id number] [place] [address] Mar, [facility] [place] [facility] [address] [id number], [place] [address] Mar, [facility] [place] [facility] [address] [id number], [place] [address] Feb, [facility] [place] [facility] [address] [id number], [place] [address] Feb, [facility] [place] [facility] [address] [id number], [place] [address] Feb, [facility] [place] [facility] [address] [id number], [place] [address] 14 Feb, 2013 [facility] [place] [facility] [address] [id number], [place] [address] Jan, [facility] [place] [facility] [address] [id number], [place] [address] Jan, [facility] [address] [id number] [place] [address] Jan, [facility] [place] [facility] [address] [id number] [place] [address] Dec, [facility] [place] [facility] [address] [id number], [place] [address] Dec, [facility] [place] [facility] [address] [id number], [place] [address] Dec, [facility] [address] [id number] [id number] Nov, [facility] [address] [facility] [id number][place] [id number] Oct, [facility] [place] [facility] [address] [facility] [id number], [place] [address] Oct, [facility] [place] [facility] [address] [id number], [place] [address] September, [facility] [place] [facility] [address] [id number] [place] [address] September, [facility] [place] [facility] [address] [id number], [place] [address] September, [facility] [place] [facility] [address] [id number], [place] [address] September, [facility] [place] [facility] [address] [id number], [place] [address] September, [facility] [place] [facility] [address] [id number] [place] [address] Jul, [facility] [place] [facility] [address] [id number] [place] [address] Jul, [facility] [place] [facility] [address] [id number] [place] [address] Jul, [facility] [place] [facility] [address] [id number] [place] [address] Jul, [facility] [address] [id number] [place] [address] Jun, [facility] [place] [facility] [address] [id number] [place] [address] Jun, [facility] [address] [id number] [place] [address] Jun, [facility] [place] [facility] [address] [id number] [place] [address] Jun, [facility] [address] [facility] [id number] [place] [address] May, [facility] [address] [facility] [id number] [place] [address] Mar, [facility] [address] [facility] [id number] [place] [address] Mar, [facility] [address] [id number] [place] [address] Mar, [facility] [address] [facility] [id number] [place] [address] Mar, [facility] [address] [facility] [id number] [place] [address] Mar, [facility] [place] [facility] [address] [facility] [id number] [place] [address] [address], [facility] [place] [facility] [address] [id number] [place] [address] Mar, [facility] [place] [facility] [address] [facility] [id number] [place] [address] Mar, [facility] [place] [facility] [address] [facility] [id number] [place] [address] Feb, [facility] [place] [facility] [address] [facility] [id number] [place] [address] Feb, [facility] [place] [facility] [address] [id number] [place] [address] Feb, [facility] [place] [facility] [address] [id number] [place] [address] Feb, [facility] [place] [facility] [address] [id number] [place] [address] Feb, [facility] [place] [facility] [address] [id number] [place] [address]46 Feb, [facility] [place] [facility] [address] [id number] [place] [address] Feb, [facility] [address] [id number] [place] [id number] Jan, [facility] [address] [id number] [place] [id number] Dec, [facility] [address] [id number] [place] [id number] Dec, [facility] [place] [facility] [address] [id number] [place] [address] Nov, [facility] [place] [facility] [address] [facility] [id number] [place] [address] Nov, [facility] [place] [facility] [address] [facility] [id number], [place] [address] Oct, [facility] [place] [facility] [address] [facility] [id number] [place] [address] Jul, [facility] [place] [facility] [address] [id number] [place] [address] Jul, [facility] [place] [facility] [address] [id number] [place] [address] May, [facility] [place] [facility] [address] [facility] [id number] [place] [address] May, [facility] [place] [facility] [address] [id number] [place] [address] Nov, [facility] [address] [id number] [address] Mar, [facility] [id number], [place] [address] Dec, [facility] [id number], [place] [address] Nov, [facility] [id number], [place] [address] Aug, [facility] [id number], [place] [address] Apr, [facility] [id number], [place] [address] Apr, [facility] [id number], [place] [address] Mar, [facility] [id number], [place] [address] Feb, [facility] [id number], [place] [address] September, [facility] [id number], [place] [address] Jun, [facility] [address] [id number], [place] [address] Mar, IMMUNIZATIONS No Known Immunizations SOCIAL HISTORY Never Assessed REASON FOR VISIT Lab (walk-in) PLAN OF CARE VITAL SIGNS MEDICATIONS Unknown Medications RESULTS No Results PROCEDURES Procedure Date Ordered Result Body Site LAB NOT BILLED BY [facility] Jan 12, 2018 INSTRUCTIONS MEDICATIONS ADMINISTERED No [...] hernia Hospitalization History Went by ambulance to [place] as unresponsive 05/2015 Hospitalization History [place] sent her to [facility] for a psych hold 05/2015
--- OUTSIDE RECORDS SUMMARY | 2018-03-15 10:40 | XMS REPORT ---
Author Author HERBERT MCGOWAN Organization [facility] Address [facility] [place] [address] Care Team Providers Care Lathe Setup Operator Name Role Phone HERBERT MCGOWAN Unavailable PROBLEMS Type Condition ICD9-CM Code ZUH66-PP Code Onset Dates Condition Status SNOMED Code Problem Psoriasis L40.9 Active 4008244 Problem Relationship problem with family member Z63.8 Active 044085407 Problem Essential hypertension I10 Active 03334422 Problem Anxiety F41.9 Active 83820032 Problem Visual disturbance H53.9 Active 76307673 Problem Rheumatoid arthritis involving multiple sites with positive rheumatoid factor M05.79 Active 442696895 Problem Bilateral low back pain with sciatica, sciatica laterality unspecified M54.40 Active 564384587 Problem Hypokalemia E87.6 Active 41824918 Problem Lumbago with sciatica, left side M54.42 Active 398551211 Problem Other chronic pain G89.29 Active 55156219 Problem 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 Active 096865426 Problem Blindness of right eye H54.40 Active 853574498 Problem Posttraumatic stress disorder F43.10 Active 86153111 Problem Overdose T50.901A Active 89756666 Problem Bipolar disorder F31.9 Active 79516528 Problem Borderline personality disorder F60.3 Active 38874383 Problem Obstructive sleep apnea G47.33 Active 85200066 Problem Acquired hypothyroidism E03.9 Active 735163886 Problem Pelvic pain R10.2 Active 19653869 Problem Chronic pain G89.29 Active 58183737 Problem Gastro-esophageal reflux disease without esophagitis K21.9 Active 079655803 Problem Anemia due to other cause, not classified D64.89 Active 983351993 Problem Social anxiety disorder F40.10 Active 20222652 Problem Morbid obesity, unspecified obesity type E66.01 Active 512162621 ALLERGIES No Information ENCOUNTERS Encounter Location Date Diagnosis [facility] [address], [place] [address] Feb, [facility] [address] [address] Feb, [facility] [address] [address] Feb, [facility] [address] [place] [address] 63733- 7011 Jan, 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 [address], [place] [address] 5538 Nov, Rheumatoid arthritis involving multiple sites with positive rheumatoid factor M05.79 ; Dysuria R30.0 and Blindness of right eye H54.40 [facility] [address], [place] [address] 2344 Nov, Bipolar disorder F31.9 ; Posttraumatic stress disorder F43.10 ; Social anxiety disorder F40.10 and Relationship problem with family member Z63.8 [place] [address], [place] [address] 2395 Nov, [place] [id number] [place] [address] 93668- 0845 Nov, [place] [address] [place] [address] 76418- 3612 Nov, 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 ; Adverse effect of antineoplastic and immunosuppressive drugs, initial encounter T45.1X5A ; Anemia , unspecified D64.9 and BMI 40.0-44.9, adult Z68.41 [address] [place] [address] 60970- 1890 Nov, Anemia due to other cause, not classified D64.89 [place] [address] [place] [address] 10463- 7422 Oct, Adverse effect of drug, initial encounter T50.905A and Acute anemia D64.9 [place] [address], [place] [address] 6050 Oct, Anemia due to other cause, not classified D64.89 ; Dysuria R30.0 and Urinary tract infection without hematuria, site unspecified N39.0 [facility] [place] [address], [place] [address] 6270 Oct, [place] [address] [place] [address] 66610- 9111 Oct, [place] [address] [place] [address] 32225- 7508 Oct, 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 [facility] [address] [id number] [address] Oct, [place] [address], [place] [address] 9594 13 Oct, 2017 [facility] [id number] [place] [address] 63953- 6464 12 Oct, 2017 [facility] [address] [place] [address] 86149- 8302 11 Oct, 2017 Bipolar disorder F31.9 ; Posttraumatic stress disorder F43.10 and Borderline personality disorder F60.3 [place] [id number] [place] [address] 77117- 3568 11 Oct, 2017 Rheumatoid arthritis involving multiple sites with positive rheumatoid factor M05.79 ; 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 and Anxiety F41.9 [place] [address] [place] [address] 14974- 0192 07 Oct, 2017 [place] [id number] [place] [address] 96967- 1772 September, 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 [place] [address] [place] [address] 32634- 8492 September, Bipolar disorder F31.9 ; Posttraumatic stress disorder F43.10 and Borderline personality disorder F60.3 [place] [address] [place] [address] 54170- 3119 24 Aug, 2017 BMI 40.0-44.9, adult Z68.41 ; Bipolar disorder F31.9 ; Posttraumatic stress disorder F43.10 and Social anxiety disorder F40.10 [place] [address] [place] [address] 90943- 0962 Aug, Bipolar disorder F31.9 ; Posttraumatic stress disorder F43.10 and Borderline personality disorder F60.3 [place] [address] [place] [address] 43784- 1810 Aug, 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 [place] [address] [place] [address] 80590- 2514 Jul, Bipolar disorder F31.9 ; Posttraumatic stress disorder F43.10 and Borderline personality disorder F60.3 [facility] [address] [place] [address] 89922- 3105 Jul, [facility] [id number] [place] [address] 24478- 6835 Jun, Bipolar disorder F31.9 ; Posttraumatic stress disorder F43.10 and Borderline personality disorder F60.3 [facility] [id number] [place] [address] 33233- 6453 Jun, Blindness of right eye H54.40 and Acquired hypothyroidism E03.9 [facility] [id number] [place] [address] 10293- 7407 Jun, [facility] [id number] [place] [address] 72687- 8961 May, Posttraumatic stress disorder F43.10 ; Social anxiety disorder F40.10 and B[address] disorder F31.9 [facility] [address] [place] [address] 33717- 0391 May, Bipolar disorder F31.9 ; Posttraumatic stress disorder F43.10 and Borderline personality disorder F60.3 [facility] [address] [place] [address] 55546- 7125 May, [facility] [address] [place] [address] 38132- 9250 May, [facility] [address] [place] [address] 85557- 5413 Apr, Bipolar disorder F31.9 ; Posttraumatic stress disorder F43.10 and Borderline personality disorder F60.3 [place] [id number] [id number] Apr, [facility] [address] [place] [address] 83961- 1580 Apr, [facility] [address] [place] [address] 77011- 4636 Mar, Hydradenitis L73.2 [facility] [address], [place] [address]- 9028 15 Mar, 2017 Lumbago with sciatica, left side M54.42 ; Other chronic pain G89.29 ; Morbid obesity, unspecified obesity type E66.01 ; Hydradenitis L73.2 and BMI 40.0-44.9, adult Z68.41 [place] [id number] [place] [address] 06751- 3201 Mar, Bipolar disorder F31.9 ; Posttraumatic stress disorder F43.10 and Borderline personality disorder F60.3 [place] [id number] [place] [address] 18865- 1203 Mar, Social anxiety disorder F40.10 ; Bipolar disorder F31.9 and Relationship problem with family member Z63.8 [address] [place] [address] 10120- 3476 Mar, [facility] [address] [id number] [id number] Mar, Dental examination Z01.20 [place] [id number] [place] [address] 15042- 0206 Mar, [place] [address] [place] [address] 37820- 5115 Feb, Bipolar disorder F31.9 ; Posttraumatic stress disorder F43.10 and Borderline personality disorder F60.3 [place] [id number] [id number] Feb, [facility] [address], [place] [address]- 4997 14 Jan, 2017 Bipolar disorder F31.9 ; Posttraumatic stress disorder F43.10 and Borderline personality disorder F60.3 [facility] [address] [id number] [id number] Jan, [place] [address] [place] [address] 01508- 6625 Jan, [facility] [address] [id number] [id number] Jan, [facility] [address] [place] [address] 67860- 8182 Dec, Bipolar disorder F31.9 ; Posttraumatic stress disorder F43.10 and Borderline personality disorder F60.3 [place] [address], [place] [address]- 6487 Dec, [facility] [address], [place] [address]- 4366 Dec, [facility] [id number] [id number] Dec, [facility] [address] [place] [address] 55668- 7449 Nov, Bipolar 1 disorder F31.9 ; Posttraumatic stress disorder F43.10 and Social anxiety disorder F40.10 [place] [address] [place] [address] 59863- 1567 Nov, Bipolar disorder F31.9 ; Posttraumatic stress disorder F43.10 and Borderline personality disorder F60.3 [place] [address], [place] [address]- 0061 Nov, Morbid obesity, unspecified obesity type E66.01 [place] [address], [place] [address]- 1017 Nov, [address] [id number] [place] [id number] Oct, Encounter for dental examination and cleaning without abnormal findings Z01.20 [place] [id number] [place] [address] 78739- 8179 Oct, Morbid obesity, unspecified obesity type E66.01 and Acute seasonal allergic rhinitis due to pollen J30.1 [place] [address], [place] [address]- 8648 Oct, Bipolar disorder F31.9 ; Posttraumatic stress disorder F43.10 and Borderline personality disorder F60.3 [place] [id number] [place] [address] 67844- 6172 September, Morbid obesity, unspecified obesity type E66.01 and Psoriasis L40.9 [place] [address] 49753- 9365 September, Bipolar disorder F31.9 ; Posttraumatic stress disorder F43.10 and Borderline personality disorder F60.3 [place] [address] 23306- 6635 September, Chronic pain G89.29 [place] [address] 81493- 0313 Aug, Other acute nonsuppurative otitis media of right ear H65.191 and Morbid obesity, unspecified obesity type E66.01 [place] [address] 14266- 1584 Aug, Bipolar 1 disorder F31.9 ; Posttraumatic stress disorder F43.10 and Social anxiety disorder F40.10 [place] [address] 31771- 8359 Aug, Bipolar disorder F31.9 ; Posttraumatic stress disorder F43.10 and Borderline personality disorder F60.3 [place] [id number] [place] [address] 24165- 1816 Jul, Morbid obesity due to excess calories E66.01 ; Gastro- esophageal reflux disease without esophagitis K21.9 and Chronic pain G89.29 [place] [id number] [place] [address] 05068- 6585 Jul, Morbid obesity due to excess calories E66.01 [place] [id number] [place] [address] 54870- 3397 Jul, [place] [address] 28336- 1005 Jul, [place] [address], [place] [address]- 8020 02 Jul, 2016 Morbid obesity due to excess calories E66.01 [facility] [id number] [place] [address] 64788- 4245 Jul, Bipolar disorder F31.9 ; Posttraumatic stress disorder F43.10 and Borderline personality disorder F60.3 [facility] [id number] [place] [address] 77895- 0096 16 Jun, 2016 [facility] [id number] [place] [address] 69205- 1529 15 Jun, 2016 Morbid obesity due to excess calories E66.01 [facility] [id number] [place] [address] 06366- 8165 Jun, [facility] [id number] [place] [address] 86804- 9417 Jun, Morbid obesity, unspecified obesity type E66.01 [facility] [id number] [place] [address] 49693- 5559 Jun, Bipolar disorder F31.9 ; Posttraumatic stress disorder F43.10 and Borderline personality disorder F60.3 [facility] [address] [place] [address] 38627- 1463 Jun, [facility] [address], [place] [address]- 8337 Jun, [facility] [id number] [place] [address] 61295- 9360 02 Jun, 2016 Acquired hypothyroidism E03.9 and Morbid obesity due to excess calories E66.01 [facility] [address] [place] [address] 51633- 2208 May, Bipolar disorder F31.9 ; Posttraumatic stress disorder F43.10 and Borderline personality disorder F60.3 [facility] [address] [place] [address] 40824- 7950 Apr, Bipolar 1 disorder F31.9 ; Posttraumatic stress disorder F43.10 and Social anxiety disorder F40.[address] [id number] [place] [id number] Apr, Encounter for dental examination Z01.20 [facility] [address] [place] [address] 85472- 2272 08 Apr, 2016 [facility] [id number] [place] [address] 26973- 3903 08 Apr, [address] [facility] [id number] [place] [address] 455726- 5466 Apr, Acquired hypothyroidism E03.9 [facility] [id number] [place] [address] 89083- 0848 Apr, Bipolar disorder F31.9 ; Posttraumatic stress disorder F43.10 and Borderline personality disorder F60.3 [facility] [id number] [place] [address] 44486- 1532 Apr, Acquired hypothyroidism E03.[address] [id number] [place] [id number] Mar, Encounter for dental examination and cleaning without abnormal findings Z01.20 [facility] [address] [place] [address] 38774- 1017 08 Mar, 2016 [facility] [id number] [place] [address] 34527- 4762 Mar, Bipolar disorder F31.9 ; Posttraumatic stress disorder F43.10 and Borderline personality disorder F60.3 [facility] [address] [place] [address] 47040- 4347 Mar, Essential (primary) hypertension I10 [facility] [id number] [place] [address] 47300- 8745 Feb, [facility] [id number] [place] [address] 45924- 8051 Feb, [facility] [address] [place] [address] 08669- 5589 11 Feb, 2016 Pelvic pain R10.2 ; Lipid screening Z13.220 ; Fatigue, unspecified type R53.83 and Weight gain [address].5 [facility] [id number] [place] [address] 19149- 9103 11 Feb, 2016 Bipolar disorder F31.9 ; Posttraumatic stress disorder F43.10 and Borderline personality disorder F60.3 [place] [id number] [place] [address] 58787- 6365 07 Feb, 2016 [place] [address] 44995- 9259 05 Feb, 2016 [place] [id number] [place] [address] 53142- 7040 30 Jan, 2016 Obstructive sleep apnea syndrome G47.33 [place] [id number] [place] [address] 45090- 4809 26 Jan, [address] [id number] [place] [id number] 19 Jan, 2016 Dental examination Z01.20 [place] [id number] [place] [address] 77392- 3375 13 Jan, 2016 Bipolar 1 disorder F31.9 ; Posttraumatic stress disorder F43.10 and Social anxiety disorder F40.10 [place] [id number] [place] [address] 83573- 9756 Jan, Bipolar disorder F31.9 ; Posttraumatic stress disorder F43.10 and Borderline personality disorder F60.3 [place] [address] [place] [address] 16429- 8136 13 Jan, 2016 Sciatica of left side M54.32 [facility] [id number] [place] [address] 22693- 8247 06 Jan, 2016 [place] [id number] [place] [address] 00830- 6253 Dec, [facility] [address] [place] [address] 97355- 6872 Dec, [facility] [id number] [place] [address] 69682904- 0400 Dec, Bipolar disorder F31.9 ; Posttraumatic stress disorder F43.10 and Borderline personality disorder F60.3 [facility] [id number] [place] [address] 70159- 1542 Nov, [facility] [id number] [place] [address] 21286- 0251 Nov, Insomnia, unspecified type G47.00 [facility] [id number] [place] [address] 70577- 4733 Nov, Bipolar disorder F31.9 ; Posttraumatic stress disorder F43.10 and Borderline personality disorder F60.3 [facility] [id number] [place] [address] 28244- 1775 Nov, [facility] [id number] [place] [address] 29167- 5013 Nov, [facility] [id number] [place] [address] 46478- 8731 Oct, Bipolar disorder F31.9 ; Posttraumatic stress disorder F43.10 and Borderline personality disorder F60.3 [facility] [id number] [place] [address] 22623- 8432 Oct, [facility] [id number] [place] [address] 61934- 7967 Oct, Essential (primary) hypertension I10 [facility] [id number] [place] [address] 00885- 9022 September, Bipolar 1 disorder F31.9 ; Posttraumatic stress disorder F43.10 and Social anxiety disorder F40.10 [facility] [address] [place] [address] 30127- 3059 September, Bipolar disorder F31.9 ; Posttraumatic stress disorder F43.10 and Borderline personality disorder F60.[address] [facility] [address] [id number] [place] [id number] September, Encounter for dental examination and cleaning without abnormal findings Z01.20 [facility] [address], [place] [address]- 0077 September, [facility] [id number] [place] [address] 10675- 9358 September, [facility] [address] [place] [address] 25273- 3804 Aug, [facility] [id number] [place] [address] 98482- 8547 Aug, Bipolar disorder F31.9 ; Posttraumatic stress disorder F43.10 and Borderline personality disorder F60.3 [facility] [address] [place] [address] 75760- 1893 Aug, [facility] [address] [place] [address] 53792- 2698 Aug, [facility] [address] [place] [address] 76205- 6307 Aug, [facility] [id number] [place] [address] [id number] Jul, Acute nasopharyngitis [common cold] J00 and Other viral agents as the cause of diseases classified elsewhere B97.89 [facility] [address] [place] [address] 64245- 3660 Jul, Chronic pain G89.29 and Allergic rhinitis J30.9 [facility] [id number] [place] [address] 75074- 2106 Jul, Bipolar 1 disorder F31.9 ; Posttraumatic stress disorder F43.10 and Social anxiety disorder F40.10 [facility] [address] [place] [address] 18399- 0138 Jul, Bipolar [address] [facility] [id number] [place] [address] 20300- 2392 16 Jul, 2015 Bipolar disorder F31.9 ; Posttraumatic stress disorder F43.10 and Borderline personality disorder F60.3 [facility] [id number] [place] [address] 58253- 2789 14 Jul, 2015 [facility] [id number] [place] [address] 86606- 4050 14 Jul, 2015 [facility] [id number] [place] [address] 97266- 1850 11 Jul, 2015 [facility] [id number] [place] [address] 77182- 6096 10 Jul, [address] [facility] [id number] [place] [address] 09501- 4170 10 Jul, 2015 Chronic pain G89.29 and Encounter for therapeutic drug level monitoring Z51.81 [facility] [id number] [place] [address] 52786- 4721 09 Jul, 2015 Chronic pain G89.29 and Encounter for therapeutic drug level monitoring Z51.81 [facility] [id number] [place] [address] 49569- 6381 08 Jul, 2015 [facility] [address] [place] [address] 42755- 1582 19 Jun, 2015 [facility] [address] [place] [address] 91731- 9208 19 Jun, 2015 [facility] [address] [place] [address] 24754- 6855 15 Jun, 2015 [facility] [id number] [place] [address] 27297- 8286 15 Jun, 2015 [facility] [id number] [place] [address] 98979- 7662 11 Jun, 2015 High risk medication use V58.69 [facility] [id number] [place] [address] 70885- 2488 Jun, [facility] [id number] [place] [address] 67001- 2398 Jun, Bipolar 1 disorder F31.9 ; Overdose T50.901A and Chronic pain G89.29 [facility] [id number] [place] [address] 64285- 3232 Jun, Bipolar disorder F31.9 ; Posttraumatic stress disorder F43.10 and Borderline personality disorder F60.3 [facility] [id number] [place] [address] [id number]- [id number] Jun, [facility] [address] [phone] Jun, [facility] [id number] [place] [address] 68575- 6585 Jun, [address].0 [facility] [id number] [place] [address] [id number]- [phone] Jun, [facility] [id number] [place] [address] [id number]- [id number] May, [facility] [facility] [id number] [place] [address] 65335- 4423 May, [facility] [id number] [place] [address] 69507- 4063 May, Pelvic pain R10.2 [facility] [id number] [place] [address] 73001- 3306 May, [facility] [id number] [place] [address] 65424- 7885 May, Pain of left thumb M79.645 ; Incisional pain R20.8 ; Pelvic pain R10.2 and Essential hypertension I10 [facility] [id number] [place] [address] 20114[address] 2493 May, [facility] [address] [place] [address] May, [facility] [place] [id number] [place] [id number] May, Dental examination Z01.20 and Necrosis of pulp K04.1 [facility] [address] [facility] [id number], [place] [address] 7474 Apr, [facility] [address] [facility] [id number] [place] [address] 46827- 3434 Apr, [facility] [address] [facility] [id number], [place] [address] 3385 Apr, [facility] [address] [facility] [id number] [place] [address] 57338- 4310 Apr, [facility] [address] [id number], [place] [address] 9475 Apr, [facility] [address] [id number], [place] [address] 3779 Apr, [facility] [address] [id number], [place] [address] 8774 Apr, [facility] [address] [id number], [place] [address] 1864 Apr, [facility] [address] [id number], [place] [address] 0811 Mar, [facility] [place] [facility] [address] [facility] [id number], [place] [address] 2103 Mar, [facility] [place] [facility] [address] [facility] [id number], [place] [address]- 7162 Mar, [facility] [place] [facility] [address] [facility] [id number], [place] [address] 4443 Mar, [facility] [place] [facility] [address] [facility] [id number], [place] [address]- 7715 Feb, [facility] [place] [facility] [address] [id number], [place] [address] 6013 Feb, [facility] [address]00565100[place], [place] [address] [address] Feb, [facility] [address]00565100[place], [place] [address] 2600 Feb, [facility] [address]00565100[place], [place] [address] 6416 Feb, [facility] [id number] [place] [address] 92225- 6108 Feb, [facility] [id number] [place] [address] 21695- 3709 Feb, [facility] [id number] [place] [address] 51420- 1349 Feb, Dermatofibroma of left lower leg D23.72 [facility] [id number] [place] [address] 65699- 2716 Feb, Hematochezia 578.1 ; Low back pain M54.5 ; High risk medication use V58.69 ; Cervicalgia M54.2 and Anxiety F41.9 [facility] [address] [place] [address] [id number] [place] [id number] Feb, Dental examination Z01.20 ; Pulpitis K04.0 and Dental caries, unspecified K02.9 [facility] [address] [place] [address] [id number] [place] [id number] Feb, Dental examination Z01.20 [facility] [address] [id number], [place] [address] 7467 30 Jan, 2015 [facility] [address]00565[address] [address] 2936 Jan, [facility] [address]00565100[place], [place] [address]- 5129 Jan, [facility] [address]00565100[place], [place] [address]- 8136 Jan, [facility] [address] [id number] [place] [address]- 1994 Dec, [facility] [address] [id number] [place] [address]- 6585 Dec, [facility] [address] [id number] [place] [address]- 1490 Dec, [facility] [address] [id number] [place] [address]- 3487 Dec, [facility] [address] [id number] [place] [address]- 9294 Dec, [facility] [address] [id number] [place] [address]- 8231 Dec, [facility] [address] [id number] [place] [address]- 6564 Dec, [facility] [address] [id number], [place] [address]- 3074 Dec, [facility] [address] [facility] [id number][place] [id number] Nov, Encounter for removal of sutures V58.32 [facility] [address] [id number] [place] [address]- 6164 Nov, [facility] [address] [id number], [place] [address]- 2724 Nov, [facility] [address] [id number], [place] [address]- 7619 Nov, [facility] [place] [facility] [address] [id number], [place] [address]- 1807 Nov, [facility] [place] [facility] [address] [id number], [place] [address]- 3524 Nov, [facility] [place] [facility] [address] [id number] [place] [address]- 9776 Nov, [facility] [address]00565100[place], [place] [address]- 1255 Nov, [facility] [address]00565100[place], [place] [address]- 4494 Nov, Dermatofibroma 216.9 [facility] [address]00565100[place], [place] [address]- 6950 Nov, [facility] [address]00565100[place], [place] [address]- [address]05 Nov, [facility] [address]00565100[place], [place] [address]- 8252 Oct, [facility] [address] [id number], [place] [address]- 1282 Oct, Hematochezia 578.1 ; Abscess 682.9 ; GERD (gastroesophageal reflux disease) 530.81 ; Visual disturbance of one eye 368.9 and High risk medication use V58.69 [facility] [address]00565100[place], [place] [address]- 4548 Oct, [facility] [address]00565100[place], [place] [address]- 6656 Oct, [facility] [address]00565100[place], [place] [address]- 5432 Oct, [facility] [address]00565100[place], [place] [address]- 5420 September, [facility] [address]00565100[place], [place] [address]- [address], [facility] [address] [id number], [place] [address]- 0794 September, [facility] [address]00565100[place], [place] [address]- [address], [facility] [address] [id number], [place] [address]- 5689 September, [facility] [address]00565100[place], [place] [address]- 9885 September, Colon cancer screening V76.51 [facility] [id number] [place] [place] [address]- 8637 September, [facility] [place] [facility] [address] [id number]- 7691 Aug, [facility] [place] [facility] [id number] [place] [address]- 0019 Aug, [facility] [place] [facility] [address] [facility] [id number] [place] [address]- 7699 Jul, [facility] [place] [facility] [id number]- 6394 Jul, [facility] [place] [facility] [id number] [place] [address]- 5008 Jul, [facility] [place] [facility] [id number] [place] [address]- 8304 Jul, [facility] [place] [facility] [address] [id number] [place] [address]- 2803 Jun, [facility] [place] [facility] [id number] [place] [place] [address]- 2817 Jun, [facility] [place] [facility] [address]00565100[place], [place] [address]- 0701 Jun, [facility] [place] [facility] [address]00565100[place], [place] [address]- 2145 Jun, [facility] [place] [facility] [address] [id number], [place] [address]- 7793 Jun, [facility] [place] [facility] [id number] 2995 Jun, [facility] [place] [facility] [address] [id number], [place] [address]- 2019 May, [facility] [place] [facility] [address]65[address], [place] [address]- 4736 May, [facility] [place] [facility] [address] [id number] [place] [address]- 3116 May, [facility] [place] [facility] [address] [id number] [place] [address]- 5470 May, [facility] [place] [facility] [address] [id number] [place] [address]- 9505 May, [facility] [place] [facility] [address] [id number] [place] [address]- 6213 May, [facility] [place] [facility] [address] [id number] [place] [address]- 8628 May, [facility] [place] [facility] [address] [id number] [place] [address]- 9040 May, [facility] [place] [facility] [address] [id number] [place] [address]- 0550 Apr, [facility] [place] [facility] [address] [id number] [place] [address]- 1341 Apr, [facility] [place] [facility] [address] [id number] [place] [address]- 8114 Apr, [facility] [place] [facility] [address] [id number] [place] [address]- 0629 Apr, [facility] [place] [facility] [address] [id number] [place] [address]- 8919 Apr, [facility] [place] [facility] [address] [id number] [place] [address]- 5275 Apr, [facility] [place] [facility] [address] [id number] [place] 3953 Apr, [facility] [place] [facility] [address] [id number] [place] 8079 Apr, [facility] [place] [facility] [address] [id number] [place] [address]- 4446 Mar, [facility] [place] [facility] [address] [id number] [place] [address]- 7881 Mar, [facility] [place] [facility] [address] [id number] [place] [address]- 3288 Mar, [facility] [place] [facility] [address] [id number] [place] [address]- 6123 Mar, [facility] [place] [facility] [address] [id number] [place] [address]- 5629 Mar, [facility] [place] [facility] [address] [id number] [place] [address]- 7423 Mar, [facility] [place] [facility] [address] [id number] [place] [address]- 9395 Mar, [facility] [place] [facility] [address] [id number] [place] [address]- 3277 Mar, [facility] [place] [facility] [address] [id number] [place] [address]- 6206 Mar, [facility] [place] [facility] [address] [id number] [place] [address]- 1476 Mar, [facility] [place] [facility] [address] [id number] [place] [address]- 2252 Feb, [facility] [place] [facility] [address] [id number] [place] [address]- 9477 Feb, [facility] [place] [facility] [address] [id number] [place] [address]- 9210 Jan, [facility] [place] [facility] [address] [id number] [place] [address]- 8937 Jan, [facility] [place] [facility] [address] [id number] [place] [address]- 5987 Jan, [facility] [place] [facility] [address] [id number] [place] [address]- 5845 Jan, [facility] [place] [facility] [address] [id number] [place] [address]- 2454 Dec, [facility] [place] [facility] [address] [id number] [place] [address]- 1550 Dec, [facility] [place] [facility] [address] [id number] [place] [address]- 1112 Dec, [facility] [place] [facility] [address] [id number] [place] [address]- 5671 Dec, [facility] [place] [facility] [address] [id number] [place] [address]- 9142 Dec, [facility] [place] [facility] [address] [id number] [place] [address]- 5973 Dec, [facility] [place] [facility] [address] [id number] [place] [address]- 3996 Nov, [facility] [place] [facility] [address] [id number] [place] [address]- 4653 Nov, [facility] [place] [facility] [address] [id number] [place] [address]- 0076 Oct, [facility] [place] [facility] [address] [id number] [place] [address]- 8787 Oct, [facility] [place] [facility] [address] [id number] [place] [address]- 7367 Oct, [facility] [place] [facility] [address] [id number] [place] [address]- 9281 Oct, [facility] [place] [facility] [address] [id number] [place] [address]- 5325 September, [facility] [place] [facility] [address] [id number] [place] [address]- 3828 September, [facility] [place] [facility] [address] [id number] [place] [address]- 7788 September, [facility] [place] [facility] [address] [id number] [place] [address]- 3553 September, [facility] [place] [facility] [address] [id number] [place] [address]- 7308 September, [facility] [address] [id number] [place] [address]- 0068 September, [facility] [place] [facility] [address] [id number] [place] [address]- 7370 September, [facility] [place] [facility] [address] [id number] [place] [address]- 8703 September, [facility] [place] [facility] [address] [id number] [place] [address]- 8851 Aug, [facility] [place] [facility] [address] [id number] [place] [address]- 7669 Aug, [facility] [place] [facility] [address] [id number] [place] [address]- 8883 Aug, [facility] [place] [facility] [address] [id number] [place] [address]- 9354 Aug, [facility] [place] [facility] [address] [id number] [place] [address]- 6528 Aug, [facility] [place] [facility] [address] [id number] [place] [address]- 8223 Aug, [facility] [place] [facility] [address] [id number] [place] [address]- 1091 Jul, [facility] [place] [facility] [address] [id number] [place] [address]- 9189 Jul, [facility] [place] [facility] [address] [id number] [place] [address]- 7370 Jul, [facility] [place] [facility] [address] [id number] [place] [address]- 3232 Jul, [facility] [place] [facility] [address] [id number] [place] [address]- 3904 Jun, [facility] [place] [facility] [address] [id number] [place] [address]- 8714 Jun, [facility] [place] [facility] [address] [id number] [place] [address]- 5330 Jun, [facility] [address] [id number] [place] [address]- 3760 Jun, [facility] [address] [id number] [place] [address]- 6236 Jun, [facility] [address] [id number] [place] [address]- 1932 Jun, [facility] [address] [id number] [place] [address]- 4408 May, [facility] [address] [id number] [place] [address]- 4097 May, [facility] [address] [id number] [place] [address]- 3670 May, [facility] [address] [id number] [place] [address]- 2468 May, [facility] [address] [id number] [place] [address]- 3833 May, [facility] [address] [id number] [place] [address]- 5490 May, [facility] [address] [id number] [place] [address]- 5127 May, [facility] [address] [id number] [place] [address]- 7704 May, [facility] [address] [id number] [place] [address]- 5301 Apr, [facility] [address] [place] [id number] Apr, [facility] [address] [id number] [place] [address]- 6326 Apr, [facility] [address] [id number] [place] [address]- 0278 Apr, [facility] [address] [id number] [place] [address]- 4847 Apr, [facility] [place] [facility] [address] [id number] [place] [address]- 9092 Apr, [facility] [place] [facility] [address] [id number] [place] [address]- 0836 Apr, [facility] [place] [facility] [address] [id number] [place] [address]- 7495 05 Apr, 2013 [facility] [place] [facility] [address] [id number] [place] [address]- 3637 Apr, [facility] [place] [facility] [address] [id number], [place] [address]- 2967 Mar, [facility] [place] [facility] [address] [id number] [place] [address]- 8431 Mar, [facility] [place] [facility] [address] [id number], [place] [address]- 7259 Mar, [facility] [place] [facility] [address] [id number] [place] [address]- 5860 Mar, [facility] [place] [facility] [address] [id number], [place] [address]- 1049 Mar, [facility] [place] [facility] [address] [id number], [place] [address]- 9874 Feb, [facility] [place] [facility] [address] [id number], [place] [address]- 2902 Feb, [facility] [place] [facility] [address] [id number], [place] [address]- 0801 Feb, [facility] [place] [facility] [address] [id number], [place] [address]- 2776 14 Feb, 2013 [facility] [place] [facility] [address] [id number], [place] [address]- 8398 Jan, [facility] [place] [facility] [address] [id number], [place] [address]- 5636 Jan, [facility] [address] [id number] [place] [address]- 2546 Jan, [facility] [place] [facility] [address] [id number] [place] [address] 2546 Dec, [facility] [place] [facility] [address] [id number], [place] [address]- 2546 Dec, [facility] [place] [facility] [address] [id number], [place] [address]- 2546 Dec, [facility] [address] [id number][place] [id number] Nov, [facility] [address] [facility] [id number], [place] [id number] Oct, [facility] [place] [facility] [address] [facility] [id number], [place] [address]- 2876 Oct, [facility] [place] [facility] [address] [id number], [place] [address]- 3866 September, [facility] [place] [facility] [address] [id number] [place] [address] September, [facility] [place] [facility] [address] [id number], [place] [address] September, [facility] [place] [facility] [address] [id number], [place] [address] September, [facility] [place] [facility] [address] [id number], [place] [address] September, [facility] [place] [facility] [address] [id number] [place] [address] Jul, [facility] [place] [facility] [address] [id number] [place] [address] Jul, [facility] [place] [facility] [address] [id number] [place] [address] Jul, [facility] [place] [facility] [address] [id number] [place] [address] Jul, [facility] [address] [id number] [place] [address] Jun, [facility] [place] [facility] [address] [id number] [place] [address] Jun, [facility] [address] [id number] [place] [address] Jun, [facility] [place] [facility] [address] [id number] [place] [address] Jun, [facility] [address] [facility] [id number] [place] [address] May, [facility] [address] [facility] [id number] [place] [address] Mar, [facility] [address] [facility] [id number] [place] [address] Mar, [facility] [address] [id number] [place] [address] Mar, [facility] [address] [facility] [id number] [place] [address] Mar, [facility] [address] [facility] [id number] [place] [address] Mar, [facility] [place] [facility] [address] [facility] [id number] [place] [address] Mar, [facility] [place] [facility] [address] [id number] [place] [address] Mar, [facility] [place] [facility] [address] [facility] [id number] [place] [address] Mar, [facility] [place] [facility] [address] [facility] [id number] [place] [address] Feb, [facility] [place] [facility] [address] [facility] [id number] [place] [address] Feb, [facility] [place] [facility] [address] [id number] [place] [address] Feb, [facility] [place] [facility] [address] [id number] [place] [address] Feb, [facility] [place] [facility] [address] [id number] [place] [address] Feb, [facility] [place] [facility] [address] [id number] [place] [address] Feb, [facility] [place] [facility] [address] [id number] [place] [address] Feb, [facility] [address] [id number] [place] [id number] Jan, [facility] [address] [id number] [place] [id number] Dec, [facility] [address] [id number] [place] [id number] Dec, [facility] [place] [facility] [address] [id number] [place] [address] Nov, [facility] [place] [facility] [address] [facility] [id number] [place] [address] Nov, [facility] [place] [facility] [address] [facility] [id number], [place] [address] Oct, [facility] [place] [facility] [address] [facility] [id number] [place] [address] Jul, [facility] [place] [facility] [address] [id number] [place] [address] Jul, [facility] [place] [facility] [address] [id number] [place] [address] May, [facility] [place] [facility] [address] [facility] [id number] [place] [address] May, [facility] [place] [facility] [address] [id number] [place] [address] Nov, [facility] [address] [id number], [place] [address] Mar, [facility] [id number] [address] Dec, [facility] [id number] [address] Nov, [facility] [id number] [address] Aug, [facility] [id number] [address] Apr, [facility] [id number] [address] Apr, [facility] [id number] [address] Mar, [facility] [id number] [place] [address] Feb, [facility] [id number] [address] September, [facility] [id number], [place] [address] Jun, [facility] [address] [id number], [place] [address] Mar, IMMUNIZATIONS No Known Immunizations SOCIAL HISTORY Never Assessed REASON FOR VISIT Refill request PLAN OF CARE VITAL SIGNS MEDICATIONS Medication Instructions Dosage Frequency Start Date End Date Duration Status Contrave 8-90 MG Orally Twice a day 2 tablets 12h Jun, 30 days Active RESULTS No Results PROCEDURES No Known procedures [...] hernia Hospitalization History Went by ambulance to [place] as unresponsive 05/2015 Hospitalization History [place] sent her to [facility] for a psych hold 05/2015
--- OUTSIDE RECORDS SUMMARY | 2018-03-15 10:41 | XMS REPORT ---
Author Author HERACLIO ANAND [facility] Address [address] [place] [address] Care Team Providers Care Correspondence Clerk Name Role Phone ARMANDO ANANDO Unavailable PROBLEMS Type Condition ICD9-CM Code [id number] Code Onset Dates Condition Status SNOMED Code Problem Psoriasis L40.9 Active 9965223 Problem Relationship problem with family member Z63.8 Active 365135264 Problem Essential hypertension I10 Active 62246611 Problem Anxiety F41.9 Active 20498583 Problem Visual disturbance H53.9 Active 91965905 Problem Rheumatoid arthritis involving multiple sites with positive rheumatoid factor M05.79 Active 588237630 Problem Bilateral low back pain with sciatica, sciatica laterality unspecified M54.40 Active 238255774 Problem Hypokalemia E87.6 Active 14498202 Problem Lumbago with sciatica, left side M54.42 Active 051249918 Problem Other chronic pain G89.29 Active 01321565 Problem 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 Active 878587568 Problem Blindness of right eye H54.40 Active 703065506 Problem Posttraumatic stress disorder F43.10 Active 18666531 Problem Overdose T50.901A Active 17299050 Problem Bipolar disorder F31.9 Active 92553999 Problem Borderline personality disorder F60.3 Active 73988165 Problem Obstructive sleep apnea G47.33 Active 46718668 Problem Acquired hypothyroidism E03.9 Active 853098922 Problem Pelvic pain R10.2 Active 08438574 Problem Chronic pain G89.29 Active 70987139 Problem Gastro-esophageal reflux disease without esophagitis K21.9 Active 804436378 Problem Anemia due to other cause, not classified D64.89 Active 542684708 Problem Social anxiety disorder F40.10 Active 30561468 Problem Morbid obesity, unspecified obesity type E66.01 Active 179504960 ALLERGIES Substance Reaction Event Type Date Status Sulfamethoxazole-Trimethoprim Unknown Drug Allergy Dec, Active Iodine Unknown Drug Allergy Dec, Active Imuran Pancytopenia Drug Allergy Dec, Active Codeine Sulfate Unknown Drug Allergy Dec, Active Aspirin Unknown Drug Allergy Dec, Active shell fish Unknown Non Drug Allergy Dec, Active IVP dye Unknown Non Drug Allergy Dec, Active tape Unknown Non Drug Allergy Dec, Active strawberries Unknown Non Drug Allergy Dec, Active tomatoes Unknown Non Drug Allergy Dec, Active ENCOUNTERS Encounter Location Date Diagnosis [place] [id number] [place] [address] 77961- 7286 Feb, [place] [address] [place] [id number] [place] [address] 64751- 1415 Feb, [place] [address] [place] [id number] [place] [address] 18636- 9917 Feb, [place] [id number] [place] [address] 48581- 2724 Jan, [place] [address] [place] [id number] [place] [address] 60213- 6226 Dec, Bipolar disorder F31.9 ; Posttraumatic stress disorder F43.10 and Borderline personality disorder F60.3 [place] [address] [place] [id number] [place] [address] 93870- 3909 Dec, 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 ; Anemia due to other cause, not classified D64.89 ; Rheumatoid arthritis involving multiple sites with positive rheumatoid factor M05.79 ; 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 ; Dysuria R30.0 ; Urinary tract infection without hematuria, site unspecified N39.0 and Blindness of right eye H54.40 [place] [address] [address] 8950 Dec, [place] [address] [place] [id number] [place] [address] 57553- 6129 Dec, [address] [id number] [id number] Dec, Dental examination Z01.20 [place] [address] [place] [id number] [place] [address] 58812- 4752 Nov, Bipolar disorder F31.9 ; Posttraumatic stress disorder F43.10 and Borderline personality disorder F60.3 [place] [address] [place] [id number] [place] [address] 27871- 7310 Nov, Rheumatoid arthritis involving multiple sites with positive rheumatoid factor M05.79 ; Dysuria R30.0 and Blindness of right eye H54.40 [place] [address] 23239- 3748 Nov, Bipolar disorder F31.9 ; Posttraumatic stress disorder F43.10 ; Social anxiety disorder F40.10 and Relationship problem with family member Z63.8 [place] [address] [place] [id number] [place] [address] 90577- 9127 Nov, [address] 05766- 4188 Nov, [place] [address] 04230- 4183 Nov, 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 ; Adverse effect of antineoplastic and immunosuppressive drugs, initial encounter T45.1X5A ; Anemia , unspecified D64.9 and BMI 40.0-44.9, adult Z68.41 [place] [id number] [place] [address] 14780- 3174 Nov, Anemia due to other cause, not classified D64.89 [place] [address] [place] [id number] [place] [address] 70524- 8481 Oct, Adverse effect of drug, initial encounter T50.905A and Acute anemia D64.[address] 23124- 8919 Oct, Anemia due to other cause, not classified D64.89 ; Dysuria R30.0 and Urinary tract infection without hematuria, site unspecified N39.[address] 20484- 0384 Oct, [facility] [address], [place] [address]- 1341 Oct, [facility] [id number] [place] [address] 73205- 6002 Oct, 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 [facility] [id number] [id number] 13 Oct, 2017 [facility] [id number] [place] [address] 43404- 6475 Oct, [facility] [address] [place] [address] 05808- 5291 Oct, [facility] [address] [id number] [place] [address] 33243- 5640 Oct, Bipolar disorder F31.9 ; Posttraumatic stress disorder F43.10 and Borderline personality disorder F60.3 [place] [address] [id number] [place] [address] 01030- 6786 Oct, Rheumatoid arthritis involving multiple sites with positive rheumatoid factor M05.79 ; 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 and Anxiety F41.9 [place] [address] [place] [id number] [place] [address] 83316- 0859 Oct, [facility] [address] [id number] [place] [address] 20363- 6650 September, 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 [facility] [address] [place] [id number] [place] [address] 61528- 9125 September, Bipolar disorder F31.9 ; Posttraumatic stress disorder F43.10 and Borderline personality disorder F60.3 [facility] [address] [place] [address] [id number] [place] [address] 83594- 5703 Aug, BMI 40.0-44.9, adult Z68.41 ; Bipolar disorder F31.9 ; Posttraumatic stress disorder F43.10 and Social anxiety disorder F40.10 [place] [address] [place] [address] [id number] [place] [address] 08594- 7130 Aug, Bipolar disorder F31.9 ; Posttraumatic stress disorder F43.10 and Borderline personality disorder F60.3 [facility] [id number] [place] [address] 61023- 8886 Aug, 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 [facility] [address] [place] [id number] [place] [address] 63622- 6126 Jul, Bipolar disorder F31.9 ; Posttraumatic stress disorder F43.10 and Borderline personality disorder F60.3 [facility] [address] [place] [id number] [place] [address] 69103- 4200 Jul, [place] [address] 51263- 5285 Jun, Bipolar disorder F31.9 ; Posttraumatic stress disorder F43.10 and Borderline personality disorder F60.3 [place] [address] 34075- 0099 Jun, Blindness of right eye H54.40 and Acquired hypothyroidism E03.9 [place] [address] [place] [id number] [place] [address] 99666- 5496 Jun, [facility] [address] [place] [id number] [place] [address] 91958- 3555 May, Posttraumatic stress disorder F43.10 ; Social anxiety disorder F40.10 and Bipolar disorder F31.9 [facility] [address] [place] [id number] [place] [address] 06860- 0151 May, Bipolar disorder F31.9 ; Posttraumatic stress disorder F43.10 and Borderline personality disorder F60.3 [facility] [address] [place] [id number] [place] [address] 90755- 3619 May, [facility] [address] [id number] [place] [address] 51500- 1366 May, [facility] [address] [place] [id number] [place] [address] 13030- 5003 Apr, Bipolar disorder F31.9 ; Posttraumatic stress disorder F43.10 and Borderline personality disorder F60.3 [facility] [id number][place] [id number] Apr, [facility] [id number] [place] [address] 23230- 8359 Apr, [facility] [address] [place] [address] 69849- 8290 Mar, Hydradenitis L73.2 [facility] [address] [place] [address] 37406- 3788 15 Mar, 2017 Lumbago with sciatica, left side M54.42 ; Other chronic pain G89.29 ; Morbid obesity, unspecified obesity type E66.01 ; Hydradenitis L73.2 and BMI 40.0-44.9, adult Z68.41 [place] [address] [place] [address] 71772- 6261 Mar, Bipolar disorder F31.9 ; Posttraumatic stress disorder F43.10 and Borderline personality disorder F60.3 [facility] [address] [place] [address] 02935- 9224 Mar, Social anxiety disorder F40.10 ; Bipolar disorder F31.9 and Relationship problem with family member Z63.8 [facility] [address], [place] [address] 1999 Mar, [address] [id number] [place] [id number] Mar, Dental examination Z01.20 [facility] [address], [place] [address]- 2692 Mar, [place] [address] [place] [address] 71777- 6898 Feb, Bipolar disorder F31.9 ; Posttraumatic stress disorder F43.10 and Borderline personality disorder F60.3 [facility] [address] [place] [id number] [id number] Feb, [facility] [address], [place] [address]- 6159 Jan, Bipolar disorder F31.9 ; Posttraumatic stress disorder F43.10 and Borderline personality disorder F60.3 [facility] [address] [id number] [id number] Jan, [facility] [address], [place] [address]- 3558 Jan, [facility] [address] [id number] Jan, [facility] [address] [place] [id number] [place] [address] 28542- 5091 Dec, Bipolar disorder F31.9 ; Posttraumatic stress disorder F43.10 and Borderline personality disorder F60.3 [facility] [address] [place] [address] 11211- 0816 Dec, [facility] [id number] [place] [address] 35749- 0725 Dec, [facility] [address] [address] Dec, [facility] [address] [place] [address] 05129- 9009 Nov, Bipolar 1 disorder F31.9 ; Posttraumatic stress disorder F43.10 and Social anxiety disorder F40.10 [facility] [address], [place] [address]- 0386 Nov, Bipolar disorder F31.9 ; Posttraumatic stress disorder F43.10 and Borderline personality disorder F60.3 [facility] [address] [place] [address] 78672- 7569 Nov, Morbid obesity, unspecified obesity type E66.01 [facility] [address], [place] [address]- 1676 Nov, [facility] [address] [id number] [place] [id number] Oct, Encounter for dental examination and cleaning without abnormal findings Z01.20 [place] [address] [place] [id number] [place] [address] 62671- 3756 15 Oct, 2016 Morbid obesity, unspecified obesity type E66.01 and Acute seasonal allergic rhinitis due to pollen J30.1 [place] [address] [place] [id number] [place] [address] 53119- 6398 Oct, Bipolar disorder F31.9 ; Posttraumatic stress disorder F43.10 and Borderline personality disorder F60.3 [place] [address] [place] [id number] [place] [address] 94870- 2702 September, Morbid obesity, unspecified obesity type E66.01 and Psoriasis L40.9 [place] [address] [place] [id number] [place] [address] 77710- 1201 September, Bipolar disorder F31.9 ; Posttraumatic stress disorder F43.10 and Borderline personality disorder F60.3 [place] [address] [place] [id number] [place] [address] 49472- 5917 September, Chronic pain G89.29 [place] [address] [place] [id number] [place] [address] 06364- 1351 Aug, Other acute nonsuppurative otitis media of right ear H65.191 and Morbid obesity, unspecified obesity type E66.01 [place] [address] [place] [address] 83424- 9930 Aug, Bipolar 1 disorder F31.9 ; Posttraumatic stress disorder F43.10 and Social anxiety disorder F40.10 [place] [address] [place] [address] 00629- 7104 Aug, Bipolar disorder F31.9 ; Posttraumatic stress disorder F43.10 and Borderline personality disorder F60.3 [place] [address] [place] [id number] [place] [address] 96491- 6341 Jul, Morbid obesity due to excess calories E66.01 ; Gastro- esophageal reflux disease without esophagitis K21.9 and Chronic pain G89.29 [facility] [address], [place] [address]- 2137 15 Jul, 2016 Morbid obesity due to excess calories E66.01 [facility] [address] [place] [address] 75709- 6075 Jul, [facility] [address] [place] [id number] [place] [address] 52788- 3207 Jul, [facility] [address] [place] [id number] [place] [address] 36535- 3514 Jul, Morbid obesity due to excess calories E66.01 [facility] [address] [place] [id number] [place] [address] 40403- 9101 Jul, Bipolar disorder F31.9 ; Posttraumatic stress disorder F43.10 and Borderline personality disorder F60.3 [facility] [address] [place] [id number] [place] [address] 75553- 7230 Jun, [facility] [address] [place] [id number] [place] [address] 15928- 1925 Jun, Morbid obesity due to excess calories E66.01 [facility] [address] [place] [address] 73647- 3807 Jun, [facility] [address] [place] [address] 11583- 9451 Jun, Morbid obesity, unspecified obesity type E66.01 [facility] [address] [place] [address] 70529- 1102 Jun, Bipolar disorder F31.9 ; Posttraumatic stress disorder F43.10 and Borderline personality disorder F60.3 [facility] [address] [place] [id number] [place] [address] 68709- 1236 Jun, [facility] [address] [place] [id number] [place] [address] 08237- 8617 Jun, [facility] [address] [id number] [place] [address] 10213- 4362 Jun, Acquired hypothyroidism E03.9 and Morbid obesity due to excess calories E66.01 [facility] [address] [place] [address] 87529- 0164 May, Bipolar disorder F31.9 ; Posttraumatic stress disorder F43.10 and Borderline personality disorder F60.3 [place] [address] [place] [address] 56940- 7626 Apr, Bipolar 1 disorder F31.9 ; Posttraumatic stress disorder F43.10 and Social anxiety disorder F40.[address] [id number] [id number] 12 Apr, 2016 Encounter for dental examination Z01.20 [facility] [address] [id number] [place] [address] 34670- 6448 08 Apr, 2016 [place] [address] [place] [id number] [place] [address] 04542- 7494 08 Apr, 2016 Acquired hypothyroidism E03.9 [facility] [address] [place] [id number] [place] [address] 56518- 8382 Apr, Acquired hypothyroidism E03.9 [place] [address] [place] [id number] [place] [address] 13729- 3393 07 Apr, 2016 Bipolar disorder F31.9 ; Posttraumatic stress disorder F43.10 and Borderline personality disorder F60.3 [facility] [address] [place] [address] 80841- 9954 06 Apr, 2016 Acquired hypothyroidism E03.[address] [id number] [place] [id number] Mar, Encounter for dental examination and cleaning without abnormal findings Z01.20 [facility] [address] [place] [address] 80754- 7283 08 Mar, 2016 [facility] [address] [place] [address] 24031- 6476 08 Mar, 2016 Bipolar disorder F31.9 ; Posttraumatic stress disorder F43.10 and Borderline personality disorder F60.3 [facility] [address] [place] [address] 22754- 5953 Mar, Essential (primary) hypertension I10 [facility] [address] [place] [id number] [place] [address] 47329- 0092 Feb, [facility] [address] [place] [id number] [place] [address] 18383- 5334 14 Feb, 2016 [facility] [address] 50576- 6724 11 Feb, 2016 Pelvic pain R10.2 ; Lipid screening Z13.220 ; Fatigue, unspecified type R53.83 and Weight gain R63.5 [facility] [address] [place] [id number] [place] [address] 51954- 3252 11 Feb, 2016 Bipolar disorder F31.9 ; Posttraumatic stress disorder F43.10 and Borderline personality disorder F60.3 [place] [address] [place] [id number] [place] [address] 89664- 0772 07 Feb, 2016 [facility] [address] [place] [id number] [place] [address] 46887- 0833 05 Feb, 2016 [facility] [address] [place] [id number] [place] [address] 38625- 7687 30 Jan, 2016 Obstructive sleep apnea syndrome G47.33 [facility] [address] [place] [address] 15385- 4669 26 Jan, [id number] [id number] [address] 19 Jan, 2016 Dental examination Z01.20 [facility] [address] [id number] [place] [address] 02283- 0961 13 Jan, 2016 Bipolar 1 disorder F31.9 ; Posttraumatic stress disorder F43.10 and Social anxiety disorder F40.10 [facility] [address] [place] [address] 51081- 5454 13 Jan, 2016 Bipolar disorder F31.9 ; Posttraumatic stress disorder F43.10 and Borderline personality disorder F60.3 [facility] [address], [place] [address]- 4027 Jan, Sciatica of left side M54.32 [facility] [address], [place] [address]- 9196 Jan, [facility] [address], [place] [address]- 9876 Dec, [facility] [address] [place] [address] 02878- 9516 Dec, [facility] [id number] [place] [address] 27232- 2280 Dec, Bipolar disorder F31.9 ; Posttraumatic stress disorder F43.10 and Borderline personality disorder F60.3 [facility] [address], [place] [address]- 7982 Nov, [facility] [address] [place] [address] 38308- 7937 Nov, Insomnia, unspecified type G47.00 [facility] [address] [place] [address] 07467- 7891 Nov, Bipolar disorder F31.9 ; Posttraumatic stress disorder F43.10 and Borderline personality disorder F60.3 [facility] [address], [place] [address]- 7606 Nov, [facility] [address], [place] [address]- 6786 Nov, [facility] [address], [place] [address]- 7329 Oct, Bipolar disorder F31.9 ; Posttraumatic stress disorder F43.10 and Borderline personality disorder F60.3 [facility] [address], [place] [address]- 2906 Oct, [facility] [id number] [place] [address] 63891- 4795 Oct, Essential (primary) hypertension I10 [facility] [address], [place] [address]- 8845 September, Bipolar 1 disorder F31.9 ; Posttraumatic stress disorder F43.10 and Social anxiety disorder F40.10 [facility] [address], [place] [address]- 9912 September, Bipolar disorder F31.9 ; Posttraumatic stress disorder F43.10 and Borderline personality disorder F60.[address] [place] [id number] [place] [id number] September, Encounter for dental examination and cleaning without abnormal findings Z01.20 [facility] [address] [place] [address] 77240- 5978 September, [facility] [address] [place] [address] 92913- 0175 September, [facility] [id number] [place] [address] 67030- 0829 Aug, [facility] [address] [place] [address] 50601- 8917 Aug, Bipolar disorder F31.9 ; Posttraumatic stress disorder F43.10 and Borderline personality disorder F60.3 [facility] [address], [place] [address]- 9258 Aug, [facility] [id number] [place] [address] 44387- 4550 Aug, [facility] [id number], [place] [address]- 6663 Aug, [facility] [id number] [place] [id number] Jul, Acute nasopharyngitis [common cold] J00 and Other viral agents as the cause of diseases classified elsewhere B97.89 [facility] [address] [place] [address] 57368- 1713 Jul, Chronic pain G89.29 and Allergic rhinitis J30.9 [facility] [address], [place] [address]- 8236 24 Jul, 2015 Bipolar 1 disorder F31.9 ; Posttraumatic stress disorder F43.10 and Social anxiety disorder F40.10 [facility] [address], [place] [address]- 8075 16 Jul, 2015 Bipolar 1 disorder F31.9 [facility] [id number] [place] [address] 64000- 2900 16 Jul, 2015 Bipolar disorder F31.9 ; Posttraumatic stress disorder F43.10 and Borderline personality disorder F60.3 [facility] [id number] [place] [address] 59961- 3086 14 Jul, 2015 [facility] [id number] [place] [address] 17033- 9006 14 Jul, 2015 [facility] [id number] [place] [address] 32642- 3755 11 Jul, 2015 [facility] [id number] [place] [address] 77006- 2411 10 Jul, 2015 Anxiety F41.9 [facility] [id number] [place] [address] 76170- 7063 10 Jul, 2015 Chronic pain G89.29 and Encounter for therapeutic drug level monitoring Z51.81 [facility] [address] [place] [address] 64982 2548 09 Jul, 2015 Chronic pain G89.29 and Encounter for therapeutic drug level monitoring Z51.81 [facility] [address], [place] [address]- 2906 08 Jul, 2015 [facility] [id number] [place] [address] 75303- 7471 Jun, [facility] [address], [place] [address]- 4676 Jun, [facility] [id number] [place] [address] 09034- 3930 15 Jun, 2015 [facility] [id number] [place] [address] 32114- 7699 Jun, [facility] [id number] [place] [address] 77682- 6060 11 Jun, 2015 High risk medication use V58.69 [facility] [address] 28940- 7956 Jun, [facility] [id number] [place] [address] 38393- 2527 Jun, Bipolar 1 disorder F31.9 ; Overdose T50.901A and Chronic pain G89.29 [facility] [id number] [place] [address] 19267- 8152 Jun, Bipolar disorder F31.9 ; Posttraumatic stress disorder F43.10 and Borderline personality disorder F60.3 [facility] [id number] [place] [address] 99564- 4058 08 Jun, 2015 [facility] [id number] [place] [address] 76210- 9022 Jun, [facility] [id number] [place] [address] 84907- 5057 Jun, Keloid L91.0 [facility] [id number] [place] [address] 26594- 5329 Jun, [facility] [id number] [place] [address] 76571- 2543 May, [facility] [id number] [place] [address] 18610- 6577 May, [facility] [id number] [place] [address] 72504- 2110 May, Pelvic pain R10.2 [facility] [id number] [place] [address] 32511- 1529 May, [facility] [address] [address] 1265 May, Pain of left thumb M79.645 ; Incisional pain R20.8 ; Pelvic pain R10.2 and Essential hypertension I10 [facility] [address], [place] [address]- 3344 May, [facility] [id number] [place] [address] 43651- 9627 May, [address] [id number] [id number] May, Dental examination Z01.20 and Necrosis of pulp K04.1 [facility] [id number] [place] [address] 50478- 6287 Apr, [facility] [id number] [place] [address] 60049- 0698 Apr, [facility] [id number] [place] [address] 15532- 0421 Apr, [facility] [id number] [place] [address] 00046- 1283 Apr, [facility] [id number] [place] [address] 29284- 0849 Apr, [facility] [id number] [place] [address] 93293- 7312 Apr, [facility] [id number] [place] [address] 91254- 2545 Apr, [facility] [id number] [place] [address] 421377- 0341 Apr, [facility] [address] [address]- 4099 Mar, [facility] [id number] [place] [address] 55582- 0260 Mar, [facility] [address] [facility] [id number] [address]- 8769 Mar, [facility] [address], [place] [address]- 7153 Mar, [facility] [address] [id number] [address]- 0931 Feb, [facility] [id number] [place] [address] 58995- 1740 Feb, [facility] [address] [id number] [address]- 2832 Feb, [facility] [id number] [place] [address] 71542- 2996 Feb, [facility] [address], [place] [address]- 0384 Feb, [facility] [id number] [place] [address] 79762- 2142 Feb, [facility] [address], [place] [address]- 2700 Feb, [facility] [address], [place] [address]- 2834 Feb, Dermatofibroma of left lower leg D23.72 [facility] [address], [place] [address]- 3767 Feb, Hematochezia 578.1 ; Low back pain M54.5 ; High risk medication use V58.69 ; Cervicalgia M54.2 and Anxiety F41.9 [facility] [address] [id number] [id number] Feb, Dental examination Z01.20 ; Pulpitis K04.0 and Dental caries, unspecified K02.9 [facility] [address] [id number] [id number] Feb, Dental examination Z01.20 [facility] [address] [facility] [id number] [place] [address]- 6150 30 Jan, 2015 [facility] [address] [id number] [place] [address]- 8230 Jan, [facility] [address] [id number] [place] [address]- 9595 Jan, [facility] [address] [id number] [place] [address]- 8932 Jan, [facility] [address] [id number] [place] [address]- 8771 Dec, [facility] [address] [id number] [place] [address]- 9047 Dec, [facility] [address] [id number] [place] [address]- 0850 Dec, [facility] [address] [id number] [place] [address]- 6017 Dec, [facility] [address] [id number], [place] [address]- 9413 Dec, [facility] [address] [id number] [address]- 4411 Dec, [facility] [address] [id number] [address]- 4686 Dec, [facility] [address] [id number] [address]- 2412 Dec, [facility] [address] [facility] [id number] [id number] Nov, Encounter for removal of sutures V58.32 [facility] [address] [id number] [place] [address]- 3360 Nov, [facility] [address] [id number], [place] [address]- 8417 Nov, [facility] [address] [id number], [place] [address]- 3995 Nov, [facility] [address], [place] [address]- 1016 Nov, [facility] [address], [place] [address]- 7751 Nov, [facility] [address] 2638 Nov, [facility] [id number] [place] [address] 42010- 1942 Nov, [facility] [id number] [place] [address] 37114- 7070 Nov, Dermatofibroma 216.9 [facility] [id number] [place] [address] 11118- 1094 Nov, [facility] [id number] [place] [address] 76548- 7398 Nov, [facility] [address], [place] [address]- 2873 Oct, [facility] [id number] [place] [address] 44561- 3783 Oct, Hematochezia 578.1 ; Abscess 682.9 ; GERD (gastroesophageal reflux disease) 530.81 ; Visual disturbance of one eye 368.9 and High risk medication use V58.69 [facility] [address], [place] [address]- 3258 Oct, [facility] [address], [place] [address]- 1677 Oct, [facility] [id number] 9668 Oct, [facility] [address], [place] [address]- 7482 September, [facility] [address] 7130 September, [facility] [address] [id number] [place] [address]- 2946 September, [facility] [place] [facility] [address] [id number] [place] [address]- 9789 September, [facility] [place] [facility] [address] [facility] [id number] [place] [address]- 2829 September, [facility] [place] [facility] [address] [facility] [id number] [place] [address]- 1502 September, Colon cancer screening V76.51 [facility] [place] [facility] [address] [id number] [place] [address]- 1610 September, [facility] [place] [facility] [address] [facility] [id number] [place] [address]- 3170 Aug, [facility] [place] [facility] [address] [facility] [id number] [place] [address]- 0230 Aug, [facility] [place] [facility] [address] [facility] [id number] [place] [address]- 5733 Jul, [facility] [place] [facility] [address] [facility] [id number] [place] [address]- 6755 Jul, [facility] [place] [facility] [address] [facility] [id number] [place] [address]- 0804 Jul, [facility] [place] [facility] [address] [facility] [id number] [place] [address]- 2575 Jul, [facility] [place] [facility] [address] [facility] [id number] [place] [address]- 9046 Jun, [facility] [place] [facility] [address] [id number] [place] 4287 Jun, [facility] [place] [facility] [address] [facility] [id number] [place] 0394 Jun, [facility] [place] [facility] [address] [facility] [id number] [place] [address]- 3748 Jun, [facility] [place] [facility] [address] [id number] [place] [address]- 7171 Jun, [facility] [place] [facility] [address] [id number] [place] [address]- 7285 Jun, [facility] [place] [facility] [address] [id number] [place] [address]- 6466 May, [facility] [place] [facility] [address] [id number] [place] [address]- 7181 May, [facility] [place] [facility] [address] [id number] [place] [address]- 1564 May, [facility] [place] [facility] [address] [id number] [place] [address]- 4228 May, [facility] [place] [facility] [address] [id number] [place] [address]- 9640 May, [facility] [place] [facility] [address] [id number] [place] [address]- 8071 May, [facility] [place] [facility] [address] [id number] [place] [address]- 9629 May, [facility] [place] [facility] [address] [id number] [place] [address]- 8403 May, [facility] [place] [facility] [address] [id number] [place] [address]- 5708 Apr, [facility] [place] [facility] [address] [id number] [place] [address]- 2463 Apr, [facility] [place] [facility] [address] [id number] [place] [address]- 7482 Apr, [facility] [place] [facility] [address] [id number] [place] [address]- 2362 Apr, [facility] [place] [facility] [address] [id number] [place] [address]- 9729 Apr, [facility] [place] [facility] [address] [id number] [place] [address]- 3605 Apr, [facility] [place] [facility] [address] [id number] [place] [address]- 9659 Apr, [facility] [place] [facility] [address] [id number] [place] [address]- 6606 Apr, [facility] [place] [facility] [address] [id number] [place] [address]- 5833 Mar, [facility] [place] [facility] [address] [id number] [place] [address]- 0597 Mar, [facility] [place] [facility] [address] [id number] [place] [address]- 5707 Mar, [facility] [place] [facility] [address] [id number] [place] [address]- 7470 Mar, [facility] [place] [facility] [address] [id number] [place] [address]- 9612 Mar, [facility] [place] [facility] [address] [id number] [place] [address]- 2410 Mar, [facility] [place] [facility] [address] [id number] [place] [address]- 0877 Mar, [facility] [place] [facility] [address] [id number] [place] [address]- 2705 Mar, [facility] [place] [facility] [address] [id number], [place] [address]- 9529 Mar, [facility] [place] [facility] [address] [id number], [place] [address]- 6886 Mar, [facility] [place] [facility] [address] [id number] [place] [address]- 4918 Feb, [facility] [place] [facility] [address] [id number], [place] [address]- 8201 Feb, [facility] [place] [facility] [address] [id number], [place] [address]- 1609 Jan, [facility] [place] [facility] [address] [id number] [place] [address]- 1969 Jan, [facility] [place] [facility] [address] [id number] [place] [address]- 5424 Jan, [facility] [place] [facility] [address] [id number] [place] [address]- 2673 Jan, [facility] [place] [facility] [address] [id number] [place] [address]- 1826 Dec, [facility] [place] [facility] [address] [id number] [place] [address]- 9052 Dec, [facility] [place] [facility] [address] [id number] [place] [address]- 4750 Dec, [facility] [place] [facility] [address] [id number] [place] [address]- 3247 Dec, [facility] [place] [facility] [address] [id number] [place] [address]- 5316 Dec, [facility] [place] [facility] [address] [id number] [place] [address]- 6017 Dec, [facility] [place] [facility] [address] [id number] [place] [address]- 8636 Nov, [facility] [place] [facility] [address] [id number] [place] [address]- 6307 Nov, [facility] [place] [facility] [address] [id number] [place] [address]- 8232 Oct, [facility] [place] [facility] [address] [id number] [place] [address]- 4987 Oct, [facility] [place] [facility] [address] [id number] [place] [address]- 5401 Oct, [facility] [place] [facility] [address] [id number] [place] [address]- 9471 Oct, [facility] [place] [facility] [address] [id number] [place] [address]- 6714 September, [facility] [place] [facility] [address] [id number] [place] [address]- 3671 September, [facility] [place] [facility] [address] [id number] [place] [address]- 1683 September, [facility] [place] [facility] [address] [id number] [place] [address]- 0725 September, [facility] [place] [facility] [address] [id number] [place] [address]- 3965 September, [facility] [place] [facility] [address] [id number] [place] [address]- 9661 September, [facility] [place] [facility] [address] [id number] [place] [address]- 9572 September, [facility] [place] [facility] [address] [id number] [place] [address]- 4458 September, [facility] [place] [facility] [address] [id number] [place] [address]- 8801 Aug, [facility] [place] [facility] [address] [id number] [place] [address]- 1939 Aug, [facility] [place] [facility] [address] [id number] [place] [address]- 1660 Aug, [facility] [place] [facility] [address] [id number] [place] [address]- 1247 Aug, [facility] [place] [facility] [address] [id number] [place] [address]- 7789 Aug, [facility] [place] [facility] [address] [id number] [place] [address]- 1568 Aug, [facility] [place] [facility] [address] [id number] [place] 9820 Jul, [facility] [place] [facility] [address] [id number] [place] [address]- 2800 Jul, [facility] [place] [facility] [address] [id number] [place] [address]- 8545 Jul, [facility] [place] [facility] [address] [id number] [place] [address]- 9384 Jul, [facility] [place] [facility] [address] [id number] [place] [address]- 7906 Jun, [facility] [place] [facility] [address] [id number] [place] [address]- 2576 Jun, [facility] [place] [facility] [address] [id number] [place] [address]- 0059 Jun, [facility] [place] [facility] [address] [id number] [place] [address]- 2580 Jun, [facility] [place] [facility] [address] [id number] [place] [address]- 8445 Jun, [facility] [place] [facility] [address] [id number] [place] [address]- 9207 Jun, [facility] [place] [facility] [address] [id number] [place] [address]- 2452 May, [facility] [place] [facility] [address] [id number] [place] [address]- 4191 May, [facility] [place] [facility] [address] [id number] [place] [address]- 4910 May, [facility] [place] [facility] [address] [id number] [place] [address]- 9559 May, [facility] [place] [facility] [address] [id number] [place] [address]- 4116 May, [facility] [place] [facility] [address] [id number] [place] [address]- 8297 May, [facility] [place] [facility] [address] [id number] [place] [address]- 7863 May, [facility] [place] [facility] [address] [id number] [place] [address]- 3443 May, [facility] [address] [id number] [place] [address]- 4030 16 Apr, 2013 [facility] [place] [id number] 16 Apr, 2013 [facility] [address] [id number] [place] [address]- 9746 16 Apr, 2013 [facility] [address] [id number] [place] [address]- 9626 16 Apr, 2013 [facility] [address] [id number] [place] [address]- 1984 Apr, [facility] [address] [id number] [place] [address]- 3662 Apr, [facility] [address] [id number] [place] [address]- 2357 05 Apr, 2013 [facility] [address] [id number] [place] [address]- 3303 05 Apr, 2013 [facility] [address] [id number] [place] [address]- 6156 Apr, [facility] [address] [id number] [place] [address]- 4634 Mar, [facility] [address] [id number] [place] [address]- 9890 Mar, [facility] [address] [id number] [place] [address]- 8243 Mar, [facility] [address] [id number] [place] [address]- 4518 Mar, [facility] [address] [id number] [place] [address]- 6667 Mar, [facility] [address] [id number] [place] [address]- 6217 Feb, [facility] [address] [id number] [place] [address]- 4794 Feb, [facility] [address] [id number] [place] [address]- 9597 Feb, [facility] [place] [facility] [address] [id number] [place] [address]- 5276 Feb, [facility] [place] [facility] [address] [id number] [place] [address]- 5337 Jan, [facility] [place] [facility] [address] [id number] [place] [address]- 5143 Jan, [facility] [place] [facility] [address] [id number] [place] [address]- 0125 Jan, [facility] [place] [facility] [address] [id number] [place] [address]- 8346 Dec, [facility] [place] [facility] [address] [id number] [place] [address]- 8793 Dec, [facility] [address] [id number] [place] [address]- 8229 Dec, [facility] [address] [id number] [place] [id number] Nov, [facility] [address] [facility] [address] [id number] [id number] Oct, [facility] [address] [id number] [place] [address]- 0596 Oct, [facility] [place] [facility] [address] [id number] [place] [address]- 3316 September, [facility] [place] [facility] [address] [id number] [place] [address]- 7646 September, [facility] [place] [facility] [address] [id number] [place] [address]- 2066 September, [facility] [place] [facility] [address] [id number] [place] [address]- 2546 September, [facility] [place] [facility] [address] [id number] [place] [address]- 3750 September, [facility] [place] [facility] [address] [id number] [place] [address]- 6710 Jul, [facility] [place] [facility] [address] [id number] [place] [address]- 2626 Jul, [facility] [place] [facility] [address] [id number] [place] [address] Jul, [facility] [place] [facility] [address] [id number] [place] [address] Jul, [facility] [place] [facility] [address] [id number] [place] [address] Jun, [facility] [place] [facility] [address] [id number] [place] [address] Jun, [facility] [place] [facility] [address] [id number] [place] [address] Jun, [facility] [place] [facility] [address] [id number] [place] [address] Jun, [facility] [place] [facility] [address] [id number] [place] [address] May, [facility] [place] [facility] [address] [id number] [place] [address] Mar, [facility] [place] [facility] [address] [id number] [place] [address] Mar, [facility] [place] [facility] [address] [id number] [place] [address] Mar, [facility] [place] [facility] [address] [id number] [place] [address] Mar, [facility] [place] [facility] [address] [id number] [place] [address] Mar, [facility] [place] [facility] [address] [id number] [place] [address] Mar, [facility] [place] [facility] [address] [id number] [place] [address] Mar, [facility] [address] [id number] [place] [address] Mar, [facility] [place] [facility] [address] [id number] [place] [address] Feb, [facility] [address] [id number] [place] [address] Feb, [facility] [place] [facility] [address] [id number] [place] [address] Feb, [facility] [address] [facility] [id number] [place] [address] Feb, [facility] [place] [facility] [address] [facility] [id number] [place] [address] Feb, [facility] [address] [facility] [id number] [place] [address] Feb, [facility] [address] [facility] [id number] [address] Feb, [facility] [address] [facility] [id number] [id number] Jan, [facility] [address] [facility] [id number] [id number] Dec, [facility] [address] [id number][place] [id number] Dec, [facility] [place] [facility] [address] [facility] [id number], [place] [address] Nov, [facility] [place] [facility] [address] [facility] [id number] [place] [address] Nov, [facility] [place] [facility] [address] [facility] [id number], [place] [address] Oct, [facility] [place] [facility] [address] [facility] [id number] [place] [address] Jul, [facility] [place] [facility] [id number], [place] [address] Jul, 2011 [facility] [id number], [place] [address] May, [facility] [id number], [place] [address] May, [facility] [id number], [place] [address] Nov, [facility] [address] [facility] [id number], [place] [address] Mar, [facility] [id number] [place] [address] Dec, [facility] [id number], [place] [address] Nov, [facility] [id number], [place] [address] Aug, [facility] [id number], [place] [address] Apr, [facility] [id number], [place] [address] Apr, [facility] [id number], [place] [address] Mar, [facility] [address] [id number], [place] [address] Feb, [facility] [address] [id number], [place] [address] September, [facility] [address] [id number], [place] [address] Jun, [facility] [address] [id number], [place] [address] Mar, IMMUNIZATIONS No Known Immunizations SOCIAL HISTORY Never Assessed REASON FOR VISIT pain/jordan PLAN OF CARE Activity Details Follow Up kim Reason:restorative VITAL SIGNS Height 62 in 2017-12-20 Blood pressure systolic 115 mmHg 2017-12-20 Blood pressure diastolic 68 mmHg 2017-12-20 MEDICATIONS Medication Instructions Dosage Frequency Start Date End Date Duration Status Oxygen 2 L/NC Active Losartan Potassium-HCTZ 50-12.5 MG Orally Once a day 1 tablet 24h 90 Active Tizanidine HCl 2 MG Orally 2 times a day 1 tablet as needed 12h Feb, 90 days Active Fluocinolone Acetonide 0.01 % Externally twice a day until gone 1 application to affected area 30 Active Fish Oil 300 MG Orally Once a day 1 capsule 24h Active Contrave 8-90 MG Orally Twice a day 2 tablets 12h Jun, 30 days Active Gabapentin 300 MG Orally 3 times a day 1 tablet 8h 90 days Active Atorvastatin Calcium 20 MG Orally Once a day 1 tablet 24h 90 Active Dicyclomine HCl 20 mg 1 tablet Four times a day Orally 30 days 30 Active Sumatriptan 50 mg by oral route One on the one set of migraine 1 tablet Active Combivent Respimat 20-100 MCG/ACT Inhalation Four times a day 1 puff 6h 30 Active Lamotrigine 200 mg Orally Once a day 1 tablet 24h 30 days Active Cymbalta 60 mg Orally Once a day 2 capsule 24h 30 days Active Doxepin HCl 10 mg Orally Once at bedtime for sleep 1 capsule at bedtime September, 30 days Active Levothyroxine Sodium 25 MCG Orally Once a day 1 tablet on an empty stomach in the morning 24h 90 days Active Atovaquone 750 MG/5ML 1 tsp Not-Taking Estradiol 1 MG Orally Once a day 1 tablet 24h Active Prednisone 10 mg by oral route 2 tabs in the morning and 1 in the evening 1 tablet Active Azithromycin 500 MG 2 tablets on the first day, then 1 tablet daily for 4 days Dec, 5 days Active Loratadine 10 mg Orally 2 times a day 1 tablet 12h September, 90 days Active Carafate 1 GM Orally 4 times a day 1 tablet on an empty stomach 6h 90 Active Creon 39617 UNIT Orally 3 times a day 1 capsule before meals 8h Nov, 90 days Active RESULTS No Results PROCEDURES Procedure Date Ordered Result Body Site LTD ORAL EVALUATION - PROBLEM FOCUS Dec 20, 2017 INTRAORL-PERIAPICAL 1 FILM [id number] Dec 20, 2017 BITEWING - SINGLE FILM Dec 20, 2017 INSTRUCTIONS MEDICATIONS ADMINISTERED No Known Medications MEDICAL [...] hernia Hospitalization History Went by ambulance to [place] as unresponsive 05/2015 Hospitalization History [place] sent her to [facility] for a psych hold 05/2015
--- OUTSIDE RECORDS SUMMARY | 2018-03-15 10:42 | XMS REPORT ---
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 Name Role Phone OSEI CARYL Unavailable PROBLEMS Type Condition ICD9-CM Code VSO65-FS Code Onset Dates Condition Status SNOMED Code Problem Psoriasis L40.9 Active 0833761 Problem Relationship problem with family member Z63.8 Active 376210929 Problem Essential hypertension I10 Active 15694600 Problem Anxiety F41.9 Active 30127218 Problem Visual disturbance H53.9 Active 36195212 Problem Rheumatoid arthritis involving multiple sites with positive rheumatoid factor M05.79 Active 216813765 Problem Bilateral low back pain with sciatica, sciatica laterality unspecified M54.40 Active 848481691 Problem Hypokalemia E87.6 Active 36961172 Problem Lumbago with sciatica, left side M54.42 Active 972770787 Problem Other chronic pain G89.29 Active 37558916 Problem 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 Active 583777458 Problem Blindness of right eye H54.40 Active 744228032 Problem Posttraumatic stress disorder F43.10 Active 54525622 Problem Overdose T50.901A Active 03994774 Problem Bipolar disorder F31.9 Active 22107133 Problem Borderline personality disorder F60.3 Active 96460753 Problem Obstructive sleep apnea G47.33 Active 25923871 Problem Acquired hypothyroidism E03.9 Active 488306410 Problem Pelvic pain R10.2 Active 93594400 Problem Chronic pain G89.29 Active 77149947 Problem Gastro-esophageal reflux disease without esophagitis K21.9 Active 915734309 Problem Anemia due to other cause, not classified D64.89 Active 427264692 Problem Social anxiety disorder F40.10 Active 67991505 Problem Morbid obesity, unspecified obesity type E66.01 Active 048605045 ALLERGIES No Information ENCOUNTERS Encounter Location Date Diagnosis [facility] [address] [id number] [address] Feb, [facility] [address] [address] Feb, [facility] [address] [address]007 Feb, [place] [address] [place] [address] 66983- 6469 Jan, [place] [address] [place] [address] 95749- 9531 Dec, Bipolar disorder F31.9 ; Posttraumatic stress disorder F43.10 and Borderline personality disorder F60.3 [place] [address] [place] [address] 06975- 7419 Dec, 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 ; Anemia due to other cause, not classified D64.89 ; Rheumatoid arthritis involving multiple sites with positive rheumatoid factor M05.79 ; 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 ; Dysuria R30.0 ; Urinary tract infection without hematuria, site unspecified N39.0 and Blindness of right eye H54.40 [place] [address] [address] Dec, [place] [address] [address] Dec, [address] [id number] [id number] Dec, Dental examination Z01.20 [place] [id number] [address] Nov, Bipolar disorder F31.9 ; Posttraumatic stress disorder F43.10 and Borderline personality disorder F60.3 [place] [address] [address] 68[address] Nov, Rheumatoid arthritis involving multiple sites with positive rheumatoid factor M05.79 ; Dysuria R30.0 and Blindness of right eye H54.40 [place] [address] [address] 2546 Nov, Bipolar disorder F31.9 ; Posttraumatic stress disorder F43.10 ; Social anxiety disorder F40.10 and Relationship problem with family member Z63.8 [place] [address] [address] 3[address] Nov, [place] [address] [place] [address] 56567- 5697 Nov, [place] [address] [place] [address] 14794- 9182 Nov, 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 ; Adverse effect of antineoplastic and immunosuppressive drugs, initial encounter T45.1X5A ; Anemia , unspecified D64.9 and BMI 40.0-44.9, adult Z68.41 [place] [address] [address] 3604 Nov, Anemia due to other cause, not classified D64.89 [place] [address] [place] [address] 97726- 3035 Oct, Adverse effect of drug, initial encounter T50.905A and Acute anemia D64.9 [place] [address] [place] [address] 10014- 3104 Oct, Anemia due to other cause, not classified D64.89 ; Dysuria R30.0 and Urinary tract infection without hematuria, site unspecified N39.0 [place] [address] [address] 6776 Oct, [place] [address] [address] 5052 Oct, [place] [address] [address] 4103 Oct, 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 [facility] [address] [id number] [address] Oct, [place] [address] [address] 2048 13 Oct, 2017 [facility] [address] [place] [address] 64830- 4563 12 Oct, 2017 [facility] [id number] [place] [address] 75754- 8259 11 Oct, 2017 Bipolar disorder F31.9 ; Posttraumatic stress disorder F43.10 and Borderline personality disorder F60.3 [place] [address] [place] [address] 93915- 9480 Oct, Rheumatoid arthritis involving multiple sites with positive rheumatoid factor M05.79 ; 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 and Anxiety F41.9 [place] [address] [place] [address] 75157- 9475 07 Oct, 2017 [place] [id number] [place] [address] 97466- 1719 September, 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 [place] [address] [place] [address] 99090- 2780 September, Bipolar disorder F31.9 ; Posttraumatic stress disorder F43.10 and Borderline personality disorder F60.3 [place] [address] [place] [address] 00814- 5422 Aug, BMI 40.0-44.9, adult Z68.41 ; Bipolar disorder F31.9 ; Posttraumatic stress disorder F43.10 and Social anxiety disorder F40.10 [place] [address] [address] 4385 Aug, Bipolar disorder F31.9 ; Posttraumatic stress disorder F43.10 and Borderline personality disorder F60.3 [place] [address] [place] [address] 52042- 4659 Aug, 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 [place] [address] [place] [address] 09838- 6182 Jul, Bipolar disorder F31.9 ; Posttraumatic stress disorder F43.10 and Borderline personality disorder F60.3 [facility] [address] [place] [address] 32136- 1138 Jul, [facility] [id number] [place] [address] 64611- 5957 Jun, Bipolar disorder F31.9 ; Posttraumatic stress disorder F43.10 and Borderline personality disorder F60.3 [facility] [id number] [place] [address] 66372- 5133 Jun, Blindness of right eye H54.40 and Acquired hypothyroidism E03.9 [facility] [address] 17143- 8705 Jun, [facility] [address] [id number] [place] [address] 47122- 4306 May, Posttraumatic stress disorder F43.10 ; Social anxiety disorder F40.10 and Bipolar disorder F31.9 [facility] [id number] [place] [address] 44860- 4696 May, Bipolar disorder F31.9 ; Posttraumatic stress disorder F43.10 and Borderline personality disorder F60.3 [facility] [address] [place] [address] 48628- 6643 May, [facility] [address] [place] [address] 83540- 7975 May, [facility] [id number] [place] [address] 81212- 8273 Apr, Bipolar disorder F31.9 ; Posttraumatic stress disorder F43.10 and Borderline personality disorder F60.3 [place] [id number] [address] Apr, [facility] [address] [place] [address] 67599- 8411 Apr, [facility] [address] [place] [address] 56397- 6425 Mar, Hydradenitis L73.2 [facility] [address] [address]- 4100 15 Mar, 2017 Lumbago with sciatica, left side M54.42 ; Other chronic pain G89.29 ; Morbid obesity, unspecified obesity type E66.01 ; Hydradenitis L73.2 and BMI 40.0-44.9, adult Z68.41 [facility] [id number] [place] [address] 12701- 7407 Mar, Bipolar disorder F31.9 ; Posttraumatic stress disorder F43.10 and Borderline personality disorder F60.3 [place] [id number] [place] [address] 06183- 8293 Mar, Social anxiety disorder F40.10 ; Bipolar disorder F31.9 and Relationship problem with family member Z63.8 [place] [address] [place] [address] 71375- 4663 Mar, [address] [id number] [id number] 06 Mar, 2017 Dental examination Z01.20 [facility] [id number] [place] [address] 76537- 3959 Mar, [place] [address] [address]- 1889 Feb, Bipolar disorder F31.9 ; Posttraumatic stress disorder F43.10 and Borderline personality disorder F60.3 [facility] [address] [id number] [address] Feb, [facility] [address] [place] [address] 69981- 4724 14 Jan, 2017 Bipolar disorder F31.9 ; Posttraumatic stress disorder F43.10 and Borderline personality disorder F60.3 [facility] [address] [id number] [id number] 11 Jan, 2017 [facility] [address] [place] [address] 74717- 5478 Jan, [facility] [address] [facility] [id number] [address] Jan, [place] [address] [place] [address] 88421- 9769 Dec, Bipolar disorder F31.9 ; Posttraumatic stress disorder F43.10 and Borderline personality disorder F60.3 [place] [address] [address]- 1762 Dec, [place] [address] [place] [address] 61818- 2529 Dec, [facility] [address] [id number] [address] Dec, [place] [address] [place] [address] 42793- 8363 Nov, Bipolar 1 disorder F31.9 ; Posttraumatic stress disorder F43.10 and Social anxiety disorder F40.10 [place] [address] [place] [address] 17493- 6122 Nov, Bipolar disorder F31.9 ; Posttraumatic stress disorder F43.10 and Borderline personality disorder F60.3 [place] [address] [place] [address] 41080- 4439 Nov, Morbid obesity, unspecified obesity type E66.01 [address] [address]- 9357 Nov, [place] [id number] [address] Oct, Encounter for dental examination and cleaning without abnormal findings Z01.[address] [place] [address] 51023- 9501 Oct, Morbid obesity, unspecified obesity type E66.01 and Acute seasonal allergic rhinitis due to pollen J30.1 [place] [address] [address]- 4963 Oct, Bipolar disorder F31.9 ; Posttraumatic stress disorder F43.10 and Borderline personality disorder F60.3 [facility] [address] [address]- 6024 September, Morbid obesity, unspecified obesity type E66.01 and Psoriasis L40.9 [facility] [address] [place] [address] 04643- 7758 September, Bipolar disorder F31.9 ; Posttraumatic stress disorder F43.10 and Borderline personality disorder F60.3 [place] [address] [id number] [place] [address] 61763- 6088 September, Chronic pain G89.29 [place] [address] [address] [place] [address] 69041- 7437 Aug, Other acute nonsuppurative otitis media of right ear H65.191 and Morbid obesity, unspecified obesity type E66.01 [place] [address] [id number] [place] [address] 64331- 2364 Aug, Bipolar 1 disorder F31.9 ; Posttraumatic stress disorder F43.10 and Social anxiety disorder F40.10 [place] [address] [id number] [place] [address] 91290- 2696 Aug, Bipolar disorder F31.9 ; Posttraumatic stress disorder F43.10 and Borderline personality disorder F60.3 [place] [address] [place] [address] 63101- 3856 Jul, Morbid obesity due to excess calories E66.01 ; Gastro- esophageal reflux disease without esophagitis K21.9 and Chronic pain G89.29 [facility] [address] [address]- 0684 Jul, Morbid obesity due to excess calories E66.01 [place] [address] [place] [address] 99467- 4552 Jul, [place] [address] [place] [address] 33378- 7368 Jul, [place] [address] [id number] [place] [address] 90146- 7700 02 Jul, 2016 Morbid obesity due to excess calories E66.01 [facility] [address] [place] [address] 85783- 7206 Jul, Bipolar disorder F31.9 ; Posttraumatic stress disorder F43.10 and Borderline personality disorder F60.3 [place] [address] [place] [id number] [place] [address] 94982- 7540 16 Jun, 2016 [facility] [address] [place] [address] 25328- 3619 15 Jun, 2016 Morbid obesity due to excess calories E66.01 [facility] [id number] [place] [address] 14605- 4783 Jun, [place] [id number] [place] [address] 09665- 0391 Jun, Morbid obesity, unspecified obesity type E66.01 [facility] [id number] [place] [address] 03173- 5915 Jun, Bipolar disorder F31.9 ; Posttraumatic stress disorder F43.10 and Borderline personality disorder F60.3 [place] [id number] [place] [address] 20763- 4817 Jun, [place] [id number] [place] [address] 47495- 2263 Jun, [facility] [id number] [place] [address] 87999- 7177 Jun, Acquired hypothyroidism E03.9 and Morbid obesity due to excess calories E66.01 [facility] [address] [place] [address] 81180- 2625 May, Bipolar disorder F31.9 ; Posttraumatic stress disorder F43.10 and Borderline personality disorder F60.3 [facility] [address] [place] [address] 51546- 6902 Apr, Bipolar 1 disorder F31.9 ; Posttraumatic stress disorder F43.10 and Social anxiety disorder F40.[address] [id number] [address] 12 Apr, 2016 Encounter for dental examination Z01.20 [facility] [address] [address]- 0862 Apr, [facility] [id number] [place] [address] 84273- 9937 08 Apr, 2016 Acquired hypothyroidism E03.9 [facility] [id number] [place] [address] 437063- 1787 Apr, Acquired hypothyroidism E03.9 [facility] [id number] [place] [address] 13468- 2817 Apr, Bipolar disorder F31.9 ; Posttraumatic stress disorder F43.10 and Borderline personality disorder F60.3 [facility] [id number] [place] [address] 85752- 4826 Apr, Acquired hypothyroidism E03.[address] [id number] [address] Mar, Encounter for dental examination and cleaning without abnormal findings Z01.20 [facility] [address] [place] [address] 28820- 8864 08 Mar, 2016 [facility] [address] [place] [address] 49775- 1996 Mar, Bipolar disorder F31.9 ; Posttraumatic stress disorder F43.10 and Borderline personality disorder F60.3 [facility] [address] [place] [address] 82724- 9768 Mar, Essential (primary) hypertension I10 [facility] [address] [place] [address] 81739- 8214 Feb, [facility] [address] [place] [address] 46376- 1531 Feb, [facility] [address] [place] [address] 58576- 5006 11 Feb, 2016 Pelvic pain R10.2 ; Lipid screening Z13.220 ; Fatigue, unspecified type R53.83 and Weight gain R63.5 [place] [address] [place] [address] 68378- 7269 11 Feb, 2016 Bipolar disorder F31.9 ; Posttraumatic stress disorder F43.10 and Borderline personality disorder F60.3 [place] [address] [place] [address] 12308- 1708 Feb, [place] [address] [place] [address] 42535- 2771 05 Feb, 2016 [place] [address] [place] [address] 05829- 2761 30 Jan, 2016 Obstructive sleep apnea syndrome G47.[address] 76366- 5708 26 Jan, [address] [id number] [id number] 19 Jan, 2016 Dental examination Z01.20 [place] [address] [place] [address] 28579- 3252 13 Jan, 2016 Bipolar 1 disorder F31.9 ; Posttraumatic stress disorder F43.10 and Social anxiety disorder F40.10 [place] [address] [place] [address] 44711- 0444 Jan, Bipolar disorder F31.9 ; Posttraumatic stress disorder F43.10 and Borderline personality disorder F60.3 [place] [address] [place] [address] 34180- 3419 Jan, Sciatica of left side M54.32 [place] [address] [place] [address] 40908- 5499 06 Jan, 2016 [place] [address] [place] [address] 46378- 9562 Dec, [place] [address] [place] [address] 73810- 7929 Dec, [facility] [address] [place] [address] 01804- 1509 Dec, Bipolar disorder F31.9 ; Posttraumatic stress disorder F43.10 and Borderline personality disorder F60.3 [facility] [id number] [place] [address] 69628- 4156 Nov, [facility] [address] [place] [address] 90793- 2257 Nov, Insomnia, unspecified type G47.00 [facility] [address] [place] [address] 33029- 4898 Nov, Bipolar disorder F31.9 ; Posttraumatic stress disorder F43.10 and Borderline personality disorder F60.3 [facility] [address] [place] [address] 50560- 9613 Nov, [facility] [address] [place] [address] 36854- 9160 Nov, [facility] [address] [place] [address] 68002- 9047 Oct, Bipolar disorder F31.9 ; Posttraumatic stress disorder F43.10 and Borderline personality disorder F60.3 [facility] [id number] [place] [address] 72342- 8136 Oct, [facility] [address] [place] [address] 00977- 4517 Oct, Essential (primary) hypertension I10 [facility] [address] [place] [address] 26213- 4786 September, Bipolar 1 disorder F31.9 ; Posttraumatic stress disorder F43.10 and Social anxiety disorder F40.10 [facility] [address] [place] [address] 63609- 5555 September, Bipolar disorder F31.9 ; Posttraumatic stress disorder F43.10 and Borderline personality disorder F60.3 [facility] [address] [id number] [place] [id number] September, Encounter for dental examination and cleaning without abnormal findings Z01.20 [facility] [address] [address]- 0525 September, [facility] [address] [address]- 8675 September, [facility] [address] [place] [address] 74439- 8071 Aug, [facility] [address] [place] [address] 84763- 9526 Aug, Bipolar disorder F31.9 ; Posttraumatic stress disorder F43.10 and Borderline personality disorder F60.3 [facility] [address] [address]- 2628 Aug, [facility] [address] [address]- 3956 Aug, [facility] [address] [address]- 7791 Aug, [facility] [id number] [id number] Jul, Acute nasopharyngitis [common cold] J00 and Other viral agents as the cause of diseases classified elsewhere B97.89 [facility] [address] [address]- 2002 Jul, Chronic pain G89.29 and Allergic rhinitis J30.9 [facility] [address] [address]- 1820 Jul, Bipolar 1 disorder F31.9 ; Posttraumatic stress disorder F43.10 and Social anxiety disorder F40.10 [facility] [address] [address]- 5402 Jul, Bipolar 1 disorder F31.9 [facility] [address]2365100[place] [address]- 5967 16 Jul, 2015 Bipolar disorder F31.9 ; Posttraumatic stress disorder F43.10 and Borderline personality disorder F60.3 [facility] [id number] [place] [address] 62947- 7971 14 Jul, 2015 [facility] [address] [place] [address] 06205- 0064 14 Jul, 2015 [facility] [id number] [place] [address] 11655- 4350 11 Jul, 2015 [facility] [address] [place] [address] 30923- 7066 10 Jul, 2015 Anxiety F41.9 [facility] [address] [place] [address] 27611- 0455 10 Jul, 2015 Chronic pain G89.29 and Encounter for therapeutic drug level monitoring Z51.81 [facility] [address] [place] [address] 07216- 8787 09 Jul, 2015 Chronic pain G89.29 and Encounter for therapeutic drug level monitoring Z51.81 [facility] [id number] [place] [address] 12364- 7295 08 Jul, 2015 [facility] [id number] [place] [address] [phone] 19 Jun, 2015 [facility] [id number] [place] [address] [phone] 19 Jun, 2015 [facility] [id number] [place] [address] [phone] 15 Jun, 2015 [facility] [id number] [place] [address] [phone] 15 Jun, 2015 [facility] [id number] [place] [address] [phone] 11 Jun, 2015 High risk medication use V58.69 [facility] [id number] [place] [address] [phone] Jun, [facility] [id number] [place] [address] [phone] Jun, Bipolar 1 disorder F31.9 ; Overdose T50.901A and Chronic pain G89.29 [facility] [address] [id number] [place] [address] 51281- 2654 Jun, Bipolar disorder F31.9 ; Posttraumatic stress disorder F43.10 and Borderline personality disorder F60.3 [facility] [id number] [place] [address] 08483- 4041 Jun, [facility] [address] 12588- 9587 Jun, [facility] [id number] [place] [address] 32580- 3008 Jun, Keloid L91.0 [facility] [id number] [place] [address] 89848- 5028 Jun, [facility] [id number] [place] [address] 46170- 8398 May, [facility] [id number] [place] [address] 29523- 3081 May, [facility] [id number] [place] [address] 72503- 7488 May, Pelvic pain R10.2 [facility] [id number] [place] [address] 71692- 6667 May, [facility] [id number] [place] [address] 36122- 1389 May, Pain of left thumb M79.645 ; Incisional pain R20.8 ; Pelvic pain R10.2 and Essential hypertension I10 [facility] [id number] [place] [address] 57489- 0392 May, [facility] [id number] [place] [address] [place] [address] 9176 May, [facility] [id number] [facility] [address] [id number] [id number] May, Dental examination Z01.20 and Necrosis of pulp K04.1 [facility] [address] [id number] [address] 5883 Apr, [facility] [address] [facility] [id number] [place] [address] 32778- 6714 Apr, [facility] [address] [facility] [id number] [address] 3195 Apr, [facility] [id number] [place] [address] 33083- 4171 Apr, [facility] [address] [id number] [address]- 8090 Apr, [facility] [address] [id number] [address]- 7061 Apr, [facility] [address] [id number] [address]- 8545 Apr, [facility] [address] [id number] [address]- 1103 Apr, [facility] [address] [id number] [address]- 7128 Mar, [facility] [address] [id number] [address]- 7975 Mar, [facility] [address] [facility] [id number][place] [address]- 0896 Mar, [facility] [address] [facility] [id number][place] [address]- 6659 Mar, [facility] [address] [facility] [id number][place] [address]- 6915 Feb, [facility] [address] [id number] [address]- 4838 Feb, [facility] [address]65100[place] [address]- 3881 Feb, [facility] [id number] [place] [address] 30872- 0517 Feb, [facility] [address]65100[place] [address]- 5177 Feb, [facility] [id number] [place] [address] 19234- 6127 Feb, [facility] [id number] [place] [address] 04121- 0074 Feb, [facility] [id number] [place] [address] 33670- 5237 Feb, Dermatofibroma of left lower leg D23.72 [facility] [id number] [place] [address] 06378- 0025 Feb, Hematochezia 578.1 ; Low back pain M54.5 ; High risk medication use V58.69 ; Cervicalgia M54.2 and Anxiety F41.[address] [id number] [id number] Feb, Dental examination Z01.20 ; Pulpitis K04.0 and Dental caries, unspecified K02.[address] [id number][place] [id number] Feb, Dental examination Z01.20 [facility] [address]65100[place] [address]- 9648 30 Jan, 2015 [facility] [id number] [place] [address] 64832- 3186 Jan, [facility] [id number] [place] [address] 05901- 3145 Jan, [facility] [id number] [place] [address] 49687- 2956 Jan, [facility] [address] [id number] [place] [address]- 7070 Dec, [facility] [address] [id number] [place] [address]- 5265 Dec, [facility] [address] [id number] [place] [address]- 7679 Dec, [facility] [address] [id number] [place] [address]- 1116 Dec, [facility] [address] [id number] [place] [address]- 1902 Dec, [facility] [address] [id number] [place] [address]- 2067 Dec, [facility] [address] [id number] [place] [address]- 0533 Dec, [facility] [address] [id number] [address]- 2618 Dec, [facility] [address] [id number] [id number] Nov, Encounter for removal of sutures V58.32 [facility] [address] [id number][place] [address]- 2005 Nov, [facility] [address] [id number] [address]- 1115 Nov, [facility] [address] [id number] [address]- 5044 Nov, [facility] [address] [id number][place] [address]- 1846 Nov, [facility] [address] [id number] [address]- 4942 Nov, [facility] [address] [id number][place] [address]- 7781 Nov, [facility] [address]00565100[place] [address]- 1427 Nov, [facility] [address]00565100[place] [address]- 5812 Nov, Dermatofibroma 216.9 [facility] [address] [id number] [address]- 2160 Nov, [facility] [id number] [place] [address] 48550- 1692 Nov, [facility] [id number] [place] [address] 13073- 7870 Oct, [facility] [id number] [place] [address] 02192- 8099 Oct, Hematochezia 578.1 ; Abscess 682.9 ; GERD (gastroesophageal reflux disease) 530.81 ; Visual disturbance of one eye 368.9 and High risk medication use V58.69 [facility] [id number] [place] [address] 43381- 3137 Oct, [facility] [address]00565100[place] [address]- 3371 Oct, [facility] [id number] [place] [address] 18138- 3127 Oct, [facility] [address]00565100[place] [address]- 6125 September, [facility] [address]00565100[place] [address]- 9316 September, [facility] [address]00565100[place] [address]- 5007 September, [facility] [address] [id number] [address]- 3131 September, [facility] [address]00565100[place] [address]- 5844 September, [facility] [address]00565100[place] [address]- 5961 September, Colon cancer screening V76.51 [facility] [address] [id number] [place] [address]- 4026 September, [facility] [place] [facility] [address] [facility] [id number] [place] [address]- 7986 Aug, [facility] [place] [facility] [address] [facility] [id number] [place] [address]- 9546 Aug, [facility] [place] [facility] [address] [facility] [id number] [place] [address]- 1128 Jul, [facility] [place] [facility] [address] [facility] [id number] [place] [address]- 9971 Jul, [facility] [place] [facility] [address] [facility] [id number] [place] [address]- 6536 Jul, [facility] [place] [facility] [address] [id number] [address]- 1635 Jul, [facility] [place] [facility] [address] [facility] [id number] [place] [address]- 7004 Jun, [facility] [place] [facility] [address] [id number] [address]- 3950 Jun, [facility] [place] [facility] [address] [facility] [id number][place] [address]- 2853 Jun, [facility] [place] [facility] [address] [facility] [id number] [place] [address]- 1966 Jun, [facility] [place] [facility] [address] [facility] [id number], [place] [address]- 2546 Jun, [facility] [place] [facility] [address] [facility] [id number] [place] [address]- 5676 Jun, [facility] [place] [facility] [address] [facility] [id number] [place] [address]- 5036 May, [facility] [place] [facility] [address] [facility] [id number] [place] [address]- 4940 May, [facility] [place] [facility] [address] [id number] [place] [address]- 8019 May, [facility] [place] [facility] [address] [id number] [place] [address]- 6226 May, [facility] [place] [facility] [address] [id number] [place] [address]- 0750 May, [facility] [place] [facility] [address] [id number] [place] [address]- 7420 May, [facility] [place] [facility] [address] [id number] [place] [address]- 7135 May, [facility] [place] [facility] [address] [id number] [place] [address]- 9684 May, [facility] [place] [facility] [address] [id number] [place] [address]- 0987 Apr, [facility] [place] [facility] [address] [id number] [place] [address]- 2921 Apr, [facility] [place] [facility] [address] [id number] [place] [address]- 6064 Apr, [facility] [place] [facility] [address] [id number] [place] [address]- 9926 Apr, [facility] [place] [facility] [address] [id number] [place] [address]- 0073 Apr, [facility] [place] [facility] [address] [id number] [place] [address]- 7972 Apr, [facility] [place] [facility] [address] [id number] [place] [address]- 9626 Apr, [facility] [place] [facility] [address] [id number] [place] [address]- 3525 Apr, [facility] [place] [facility] [address] [id number] [place] [address]- 5426 Mar, [facility] [place] [facility] [address] [id number] [place] [address]- 9431 Mar, [facility] [place] [facility] [address] [id number] [place] [address]- 3486 Mar, [facility] [place] [facility] [address] [id number] [place] [address]- 0885 Mar, [facility] [place] [facility] [address] [id number] [place] [address]- 4198 Mar, [facility] [place] [facility] [address] [id number] [place] [address]- 0806 Mar, [facility] [place] [facility] [address] [id number] [place] [address]- 8641 Mar, [facility] [place] [facility] [address] [id number] [place] [address]- 4329 Mar, [facility] [place] [facility] [address] [id number] [place] [address]- 3307 Mar, [facility] [place] [facility] [address] [id number] [place] [address]- 3116 Mar, [facility] [place] [facility] [address] [id number] [place] [address]- 6530 Feb, [facility] [place] [facility] [address] [id number] [place] [address]- 7362 Feb, [facility] [place] [facility] [address] [id number] [place] [address]- 7163 Jan, [facility] [place] [facility] [address] [id number] [place] [address]- 8103 Jan, [facility] [place] [facility] [address] [id number] [place] [address]- 8918 Jan, [facility] [place] [facility] [address] [id number] [place] [address]- 6708 Jan, [facility] [place] [facility] [address] [id number] [place] [address]- 0714 Dec, [facility] [place] [facility] [address] [id number] [place] [address]- 9814 Dec, [facility] [place] [facility] [address] [id number] [place] [address]- 9054 Dec, [facility] [place] [facility] [address] [id number] [place] [address]- 3258 Dec, [facility] [place] [facility] [address] [id number] [place] [address]- 6027 Dec, [facility] [place] [facility] [address] [id number] [place] [address]- 8871 Dec, [facility] [place] [facility] [address] [id number] [place] [address]- 7997 Nov, [facility] [place] [facility] [address] [id number] [place] [address]- 3040 Nov, [facility] [place] [facility] [address] [id number] [place] [address]- 6215 Oct, [facility] [place] [facility] [address] [id number] [place] [address]- 5822 Oct, [facility] [place] [facility] [address] [id number] [place] [address]- 0039 Oct, [facility] [place] [facility] [address] [id number] [place] [address]- 3792 Oct, [facility] [place] [facility] [address] [id number] [place] [address]- 5691 September, [facility] [place] [facility] [address] [id number] [place] [address]- 3759 September, [facility] [place] [facility] [address] [id number] [place] [address]- 9756 September, [facility] [place] [facility] [address] [id number] [place] [address]- 5687 September, [facility] [place] [facility] [address] [id number] [place] [address]- 4706 September, [facility] [place] [facility] [address] [id number] [place] [address]- 8791 September, [facility] [place] [facility] [address] [id number] [place] [address]- 0133 September, [facility] [place] [facility] [address] [id number] [place] [address]- 4501 September, [facility] [place] [facility] [address] [id number] [place] [address]- 3799 Aug, [facility] [place] [facility] [address] [id number] [place] [address]- 7196 Aug, [facility] [place] [facility] [address] [id number] [place] [address]- 3522 Aug, [facility] [place] [facility] [address] [id number] [place] [address]- 7464 Aug, [facility] [place] [facility] [address] [id number] [place] [address]- 7883 Aug, [facility] [place] [facility] [address] [id number] [place] [address]- 7774 Aug, [facility] [place] [facility] [address] [id number] [place] [address]- 9388 Jul, [facility] [place] [facility] [address] [id number] [place] [address]- 6887 Jul, [facility] [place] [facility] [address] [id number] [place] [address]- 6081 Jul, [facility] [place] [facility] [address] [id number] [place] [address]- 0098 Jul, [facility] [place] [facility] [address] [id number] [place] [address]- 2218 Jun, [facility] [place] [facility] [address] [id number] [place] [address]- 6738 Jun, [facility] [place] [facility] [address] [id number] [place] [address]- 0593 07 Jun, 2013 [facility] [address] [id number] [place] [address]- 5429 Jun, [facility] [address] [id number] [place] [address]- 0706 Jun, [facility] [address] [id number] [place] [address]- 7556 Jun, [facility] [address] [id number] [place] [address]- 3513 May, [facility] [address] [id number] [place] [address]- 2661 May, [facility] [address] [id number] [place] [address]- 3669 May, [facility] [address] [id number] [place] [address]- 9564 May, [facility] [address] [id number] [place] [address]- 8322 May, [facility] [address] [id number] [place] [address]- 0665 May, [facility] [address] [id number] [place] [address]- 2415 May, [facility] [address] [id number] [place] [address]- 5401 May, [facility] [address] [id number] [place] [address]- 3427 Apr, [facility] [address] [place] [id number] Apr, [facility] [address] [id number] [place] [address]- 2436 Apr, [facility] [address] [id number] [place] [address]- 1066 Apr, [facility] [address] [id number] [place] [address]- 9121 13 Apr, 2013 [facility] [place] [facility] [address] [id number] [place] [address]- 2295 13 Apr, 2013 [facility] [place] [facility] [address] [id number] [place] [address]- 6319 05 Apr, 2013 [facility] [place] [facility] [address] [id number] [place] [address]- 0346 05 Apr, 2013 [facility] [place] [facility] [address] [id number] [place] [address]- 3121 04 Apr, 2013 [facility] [place] [facility] [address] [id number] [place] [address]- 6875 Mar, [facility] [place] [facility] [address] [id number] [place] [address]- 2098 Mar, [facility] [place] [facility] [address] [id number], [place] [address]- 2208 Mar, [facility] [place] [facility] [address] [id number] [place] [address]- 8389 Mar, [facility] [place] [facility] [address] [id number][place] [address]- 4182 Mar, [facility] [place] [facility] [address] [id number][place] [address]- 9240 Feb, [facility] [place] [facility] [address] [id number][place] [address]- 2541 25 Feb, 2013 [facility] [place] [facility] [address] [id number], [place] [address]- 1178 14 Feb, 2013 [facility] [place] [facility] [address] [id number], [place] [address]- 2213 14 Feb, 2013 [facility] [place] [facility] [address] [id number] 7403 Jan, [facility] [place] [facility] [address] [id number][place] [address]- 9826 Jan, [facility] [address] [id number], [place] [address]- 0216 Jan, [facility] [place] [facility] [address] [id number][place] [address] 2546 Dec, [facility] [place] [facility] [address] [id number][place] [address]- 2546 Dec, [facility] [place] [facility] [address] [id number][place] [address]- 2547 Dec, [facility] [address] [id number] [place] [id number] Nov, [facility] [address] [facility] [id number][place] [id number] Oct, [facility] [place] [facility] [address] [facility] [id number][place] [address] Oct, [facility] [place] [facility] [address] [id number][place] [address] September, [facility] [place] [facility] [address] [id number] [address] September, [facility] [place] [facility] [address] [facility] [id number][place] [address] September, [facility] [place] [facility] [address] [facility] [id number][place] [address] September, [facility] [place] [facility] [address] [id number][place] [address] September, [facility] [place] [facility] [address] [id number], [place] [address] Jul, [facility] [place] [facility] [address] [id number], [place] [address] Jul, [facility] [place] [facility] [address] [id number][place] [address] Jul, [facility] [place] [facility] [address] [id number][place] [address] Jul, [facility] [place] [facility] [address] [id number] [place] [address] Jun, [facility] [place] [facility] [address] [id number] [place] [address] Jun, [facility] [place] [facility] [address] [id number] [place] [address] Jun, [facility] [place] [facility] [address] [id number] [place] [address] Jun, [facility] [place] [facility] [address] [id number] [place] [address] May, [facility] [place] [facility] [address] [id number] [place] [address] Mar, [facility] [place] [facility] [address] [id number] [place] [address] Mar, [facility] [place] [facility] [address] [id number] [place] [address] Mar, [facility] [place] [facility] [address] [facility] [id number] [place] [address] Mar, [facility] [place] [facility] [address] [facility] [id number] [place] [address] Mar, [facility] [place] [facility] [address] [facility] [id number] [place] [address] Mar, [facility] [place] [facility] [address] [id number][place] [address] Mar, [facility] [place] [facility] [address] [id number] [place] [address] Mar, [facility] [place] [facility] [address] [facility] [id number] [place] [address] Feb, [facility] [place] [facility] [address] [id number] [place] [address] Feb, [facility] [place] [facility] [address] [id number] [place] [address] Feb, [facility] [place] [facility] [address] [id number] [place] [address] Feb, [facility] [place] [facility] [address] [facility] [id number] [place] [address] Feb, [facility] [place] [facility] [address] [facility] [id number] [place] [address], [place] [address] Feb, [facility] [address] [id number] [place] [address] Feb, [facility] [address] [id number] [place] [id number] Jan, [facility] [address] [id number] [place] [id number] Dec, [facility] [address] [id number] [place] [id number] Dec, [facility] [place] [facility] [address] [facility] [id number] [place] [address] Nov, [facility] [place] [facility] [address] [facility] [id number] [place] [address] Nov, [facility] [place] [facility] [address] [facility] [id number][place] [address] Oct, [facility] [place] [facility] [address] [facility] [id number] [place] [address] Jul, [facility] [place] [facility] [address] [facility] [id number] [place] [address] Jul, [facility] [place] [facility] [address] [facility] [id number] [place] [address] May, [facility] [place] [facility] [address] [facility] [id number] [place] [address] 2546 May, [facility] [place] [facility] [address] [facility] [id number][place] [address] Nov, [facility] [place] [facility] [id number] [address] Mar, [facility] [id number], [place] [address] Dec, [facility] [id number], [place] [address] Nov, [facility] [id number] [place] [address]- [address] Aug, [facility] [id number] [place] [address]- [address] Apr, [facility] [id number] [place] [address]- 1033 Apr, [facility] [id number] [place] [address]- [address]893 Mar, [facility] [id number] [place] [address]- [address]1 Feb, [facility] [id number] [place] [address]- 8568 September, [facility] [address] [id number] [place] [id number] Jun, [facility] [id number] [address], IMMUNIZATIONS No Known Immunizations SOCIAL HISTORY Never Assessed REASON FOR VISIT f/burke Moss MA PLAN OF CARE Activity Details Follow Up 3 Months Reason: VITAL SIGNS Height 62 in 2017-12-06 Weight 218.4 lbs 2017-12-06 Heart Rate 110 bpm 2017-12-06 Respiratory Rate 24 2017-12-06 BMI 39.94 kg/m2 2017-12-06 Blood pressure systolic 126 mmHg 2017-12-06 Blood pressure diastolic 82 mmHg 2017-12-06 MEDICATIONS Medication Instructions Dosage Frequency Start Date End Date Duration Status Losartan Potassium-HCTZ 50-12.5 MG Orally Once a day 1 tablet 24h 90 Active Atovaquone 750 MG/5ML 1 tsp Active Levothyroxine Sodium 25 MCG Orally Once a day 1 tablet on an empty stomach in the morning 24h 90 days Active Dicyclomine HCl 20 mg 1 tablet Four times a day Orally 30 days 30 Active Cymbalta 60 mg Orally Once a day 2 capsule 24h 30 days Active Loratadine 10 mg Orally 2 times a day 1 tablet 12h September, 90 days Active Prednisone 10 mg by oral route 2 tabs in the morning and 1 in the evening 1 tablet Active Lamotrigine 200 mg Orally Once a day 1 tablet 24h 30 days Active Estradiol 1 MG Orally Once a day 1 tablet 24h Active Oxygen 2 L/NC Active Atorvastatin Calcium 20 MG Orally Once a day 1 tablet 24h 90 Active Combivent Respimat 20-100 MCG/ACT Inhalation Four times a day 1 puff 6h 30 Active Carafate 1 GM Orally 4 times a day 1 tablet on an empty stomach 6h 90 Active Fish Oil 300 MG Orally Once a day 1 capsule 24h Active Fluocinolone Acetonide 0.01 % Externally twice a day until gone 1 application to affected area 30 Active Creon 51268 UNIT Orally 3 times a day 1 capsule before meals 8h Nov, 30 days Active Tizanidine HCl 2 MG Orally 2 times a day 1 tablet as needed 12h Feb, 90 days Active Contrave 8-90 MG Orally Twice a day 2 tablets 12h Jun, 30 days Active Sumatriptan 50 mg by oral route One on the one set of migraine 1 tablet Active Gabapentin 300 MG Orally 3 times a day 1 tablet 8h 90 days Active Doxepin HCl 10 mg Orally Once at bedtime for sleep 1 capsule at bedtime September, 30 days Active RESULTS No Results PROCEDURES [...] hernia Hospitalization History Went by ambulance to [facility] as unresponsive 05/2015 Hospitalization History [facility] sent her to [facility] for a psych hold 05/2015
--- OUTSIDE RECORDS SUMMARY | 2018-03-15 10:43 | XMS REPORT ---
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 Name Role Phone HERBERT MCGOWAN Unavailable PROBLEMS Type Condition ICD9-CM Code WZZ37-ZT Code Onset Dates Condition Status SNOMED Code Problem Psoriasis L40.9 Active 1355888 Problem Relationship problem with family member Z63.8 Active 269546295 Problem Essential hypertension I10 Active 65421852 Problem Anxiety F41.9 Active 79523230 Problem Visual disturbance H53.9 Active 03203081 Problem Rheumatoid arthritis involving multiple sites with positive rheumatoid factor M05.79 Active 393718534 Problem Bilateral low back pain with sciatica, sciatica laterality unspecified M54.40 Active 049704465 Problem Hypokalemia E87.6 Active 51559649 Problem Lumbago with sciatica, left side M54.42 Active 748777070 Problem Other chronic pain G89.29 Active 54180449 Problem 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 Active 350061450 Problem Blindness of right eye H54.40 Active 999116624 Problem Posttraumatic stress disorder F43.10 Active 90659949 Problem Overdose T50.901A Active 63798843 Problem Bipolar disorder F31.9 Active 57192191 Problem Borderline personality disorder F60.3 Active 77025613 Problem Obstructive sleep apnea G47.33 Active 42511689 Problem Acquired hypothyroidism E03.9 Active 604518465 Problem Pelvic pain R10.2 Active 09453545 Problem Chronic pain G89.29 Active 22338552 Problem Gastro-esophageal reflux disease without esophagitis K21.9 Active 013766297 Problem Anemia due to other cause, not classified D64.89 Active 339775650 Problem Social anxiety disorder F40.10 Active 87451278 Problem Morbid obesity, unspecified obesity type E66.01 Active 979046860 ALLERGIES No Information ENCOUNTERS Encounter Location Date Diagnosis [facility] [address] [address] Feb, [facility] [address], [place] [address] 7979 Feb, [facility] [address], [place] [address] 1817 Feb, [facility] [address] [place] [address] 81422- 6766 Jan, [facility] [address] [place] [address] 54185- 8270 Dec, Bipolar disorder F31.9 ; Posttraumatic stress disorder F43.10 and Borderline personality disorder F60.3 [place] [address] [place] [address] 89171- 9098 Dec, 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 ; Anemia due to other cause, not classified D64.89 ; Rheumatoid arthritis involving multiple sites with positive rheumatoid factor M05.79 ; 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 ; Dysuria R30.0 ; Urinary tract infection without hematuria, site unspecified N39.0 and Blindness of right eye H54.40 [place] [address] [place] [address] 63084- 2540 Dec, [place] [address] [address]79 Dec, [address] [id number] [id number] Dec, Dental examination Z01.20 [place] [address] [place] [id number] [place] [address] 48720- 2840 Nov, Bipolar disorder F31.9 ; Posttraumatic stress disorder F43.10 and Borderline personality disorder F60.3 [facility] [address], [place] [address] 0993 Nov, Rheumatoid arthritis involving multiple sites with positive rheumatoid factor M05.79 ; Dysuria R30.0 and Blindness of right eye H54.40 [place] [address], [place] [address] 5820 Nov, Bipolar disorder F31.9 ; Posttraumatic stress disorder F43.10 ; Social anxiety disorder F40.10 and Relationship problem with family member Z63.8 [place] [address], [place] [address] Nov, [place] [address] [place] [id number] [place] [address] 08844- 7580 Nov, [place] [address] [place] [address] 86867- 6169 Nov, 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 ; Adverse effect of antineoplastic and immunosuppressive drugs, initial encounter T45.1X5A ; Anemia , unspecified D64.9 and BMI 40.0-44.9, adult Z68.41 [address] [place] [address] 20085- 7190 Nov, Anemia due to other cause, not classified D64.89 [place] [address] [place] [address] 19430- 3386 Oct, Adverse effect of drug, initial encounter T50.905A and Acute anemia D64.9 [place] [address], [place] [address] 9454 Oct, Anemia due to other cause, not classified D64.89 ; Dysuria R30.0 and Urinary tract infection without hematuria, site unspecified N39.0 [place] [address], [place] [address] 4481 Oct, [place] [address] [place] [address] 33683- 2562 Oct, [place] [address] [place] [address] 01629- 1630 Oct, 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 [facility] [address] [id number] [id number] Oct, [place] [address], [place] [address]- 2370 13 Oct, 2017 [facility] [id number] [place] [address] 08059- 4048 12 Oct, 2017 [facility] [address] [place] [address] 01730- 3566 11 Oct, 2017 Bipolar disorder F31.9 ; Posttraumatic stress disorder F43.10 and Borderline personality disorder F60.3 [place] [address] [address] [id number] [place] [address] 92279- 4238 11 Oct, 2017 Rheumatoid arthritis involving multiple sites with positive rheumatoid factor M05.79 ; 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 and Anxiety F41.9 [place] [address] [place] [address] 98967- 7327 07 Oct, 2017 [place] [address] [id number] [place] [address] 07001- 9720 September, 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 [place] [address] [place] [address] 25779- 0860 September, Bipolar disorder F31.9 ; Posttraumatic stress disorder F43.10 and Borderline personality disorder F60.3 [place] [address] [place] [address] 07314- 7724 24 Aug, 2017 BMI 40.0-44.9, adult Z68.41 ; Bipolar disorder F31.9 ; Posttraumatic stress disorder F43.10 and Social anxiety disorder F40.10 [place] [address] [place] [address] 91116- 0076 Aug, Bipolar disorder F31.9 ; Posttraumatic stress disorder F43.10 and Borderline personality disorder F60.3 [place] [address] [place] [address] 14630- 4169 Aug, 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 [place] [address] [place] [address] 25341- 8756 Jul, Bipolar disorder F31.9 ; Posttraumatic stress disorder F43.10 and Borderline personality disorder F60.3 [facility] [address] [place] [address] 78909- 7982 Jul, [facility] [id number] [place] [address] 03511- 9942 Jun, Bipolar disorder F31.9 ; Posttraumatic stress disorder F43.10 and Borderline personality disorder F60.3 [facility] [id number] [place] [address] 85582- 5601 Jun, Blindness of right eye H54.40 and Acquired hypothyroidism E03.9 [facility] [id number] [place] [address] 84552- 8679 Jun, [facility] [id number] [place] [address] 66220- 1541 May, Posttraumatic stress disorder F43.10 ; Social anxiety disorder F40.10 and Bipolar disorder F31.9 [facility] [address] [place] [address] 49554- 8612 May, Bipolar disorder F31.9 ; Posttraumatic stress disorder F43.10 and Borderline personality disorder F60.3 [facility] [address] [place] [address] 92423- 9948 May, [facility] [address] [place] [address] 37909- 0893 May, [facility] [address] [place] [address] 93637- 3178 Apr, Bipolar disorder F31.9 ; Posttraumatic stress disorder F43.10 and Borderline personality disorder F60.3 [place] [id number] [id number] Apr, [facility] [address] [place] [address] 90738- 3667 Apr, [facility] [address] [place] [address] 99796- 1723 Mar, Hydradenitis L73.2 [facility] [address], [place] [address]- 7820 15 Mar, 2017 Lumbago with sciatica, left side M54.42 ; Other chronic pain G89.29 ; Morbid obesity, unspecified obesity type E66.01 ; Hydradenitis L73.2 and BMI 40.0-44.9, adult Z68.41 [place] [id number] [place] [address] 96438- 3028 Mar, Bipolar disorder F31.9 ; Posttraumatic stress disorder F43.10 and Borderline personality disorder F60.3 [place] [address] [id number] [place] [address] 11997- 7809 Mar, Social anxiety disorder F40.10 ; Bipolar disorder F31.9 and Relationship problem with family member Z63.8 [address] [place] [address] 80143- 7501 Mar, [facility] [address] [id number] [id number] Mar, Dental examination Z01.20 [place] [address] [id number] [place] [address] 33613- 8793 Mar, [place] [address] [place] [address] 33734- 5473 Feb, Bipolar disorder F31.9 ; Posttraumatic stress disorder F43.10 and Borderline personality disorder F60.3 [place] [id number] [id number] Feb, [facility] [address] [address]- 5169 14 Jan, 2017 Bipolar disorder F31.9 ; Posttraumatic stress disorder F43.10 and Borderline personality disorder F60.3 [facility] [address] [id number] [id number] Jan, [place] [address] [place] [address] 77176- 7678 Jan, [facility] [address] [id number] [id number] Jan, [facility] [address] [place] [address] 05312- 5729 Dec, Bipolar disorder F31.9 ; Posttraumatic stress disorder F43.10 and Borderline personality disorder F60.3 [place] [address], [place] [address]- 0281 Dec, [facility] [address], [place] [address]- 1651 Dec, [facility] [id number] [id number] Dec, [facility] [address] [place] [address] 04596- 6574 Nov, Bipolar 1 disorder F31.9 ; Posttraumatic stress disorder F43.10 and Social anxiety disorder F40.10 [place] [address] [place] [address] 51445- 1318 Nov, Bipolar disorder F31.9 ; Posttraumatic stress disorder F43.10 and Borderline personality disorder F60.3 [place] [address] [address]- 6178 Nov, Morbid obesity, unspecified obesity type E66.01 [place] [address], [place] [address]- 7527 Nov, [address] [id number] [id number] Oct, Encounter for dental examination and cleaning without abnormal findings Z01.20 [place] [id number] [place] [address] 49317- 5908 Oct, Morbid obesity, unspecified obesity type E66.01 and Acute seasonal allergic rhinitis due to pollen J30.1 [place] [address], [place] [address]- 9619 Oct, Bipolar disorder F31.9 ; Posttraumatic stress disorder F43.10 and Borderline personality disorder F60.3 [place] [id number] [place] [address] 98174- 0614 September, Morbid obesity, unspecified obesity type E66.01 and Psoriasis L40.9 [place] [address] 84360- 9449 September, Bipolar disorder F31.9 ; Posttraumatic stress disorder F43.10 and Borderline personality disorder F60.3 [place] [address] 98592- 0473 September, Chronic pain G89.29 [place] [address] 05367- 7939 Aug, Other acute nonsuppurative otitis media of right ear H65.191 and Morbid obesity, unspecified obesity type E66.01 [place] [address] 37163- 1797 Aug, Bipolar 1 disorder F31.9 ; Posttraumatic stress disorder F43.10 and Social anxiety disorder F40.10 [place] [address] 83064- 8978 Aug, Bipolar disorder F31.9 ; Posttraumatic stress disorder F43.10 and Borderline personality disorder F60.3 [place] [id number] [place] [address] 16470- 9936 Jul, Morbid obesity due to excess calories E66.01 ; Gastro- esophageal reflux disease without esophagitis K21.9 and Chronic pain G89.29 [place] [id number] [place] [address] 04388- 5720 Jul, Morbid obesity due to excess calories E66.01 [place] [address] [place] [id number] [place] [address] 05923- 1003 Jul, [place] [address] 54815- 4098 Jul, [place] [address], [place] [address]- 1069 02 Jul, 2016 Morbid obesity due to excess calories E66.01 [facility] [id number] [place] [address] 69480- 7499 Jul, Bipolar disorder F31.9 ; Posttraumatic stress disorder F43.10 and Borderline personality disorder F60.3 [facility] [id number] [place] [address] 20545- 9069 16 Jun, 2016 [facility] [id number] [place] [address] 32767- 4198 15 Jun, 2016 Morbid obesity due to excess calories E66.01 [facility] [id number] [place] [address] 28151- 6972 Jun, [facility] [id number] [place] [address] 41055- 8030 Jun, Morbid obesity, unspecified obesity type E66.01 [facility] [id number] [place] [address] 55293- 9606 Jun, Bipolar disorder F31.9 ; Posttraumatic stress disorder F43.10 and Borderline personality disorder F60.3 [facility] [address] [place] [address] 16910- 7174 Jun, [facility] [address], [place] [address]- 4772 Jun, [facility] [id number] [place] [address] 26677- 9213 02 Jun, 2016 Acquired hypothyroidism E03.9 and Morbid obesity due to excess calories E66.01 [facility] [address] [place] [address] 06131- 8477 May, Bipolar disorder F31.9 ; Posttraumatic stress disorder F43.10 and Borderline personality disorder F60.3 [facility] [address] [place] [address] 87298- 5184 Apr, Bipolar 1 disorder F31.9 ; Posttraumatic stress disorder F43.10 and Social anxiety disorder F40.[address] [id number] [id number] Apr, Encounter for dental examination Z01.20 [facility] [address] [place] [address] 88430- 8813 08 Apr, 2016 [facility] [id number] [place] [address] 65162- 0599 08 Apr, 2016 Acquired hypothyroidism E03.9 [facility] [id number] [place] [address] 359978- 7723 Apr, Acquired hypothyroidism E03.9 [facility] [id number] [place] [address] 60694- 0426 Apr, Bipolar disorder F31.9 ; Posttraumatic stress disorder F43.10 and Borderline personality disorder F60.3 [facility] [id number] [place] [address] 08661- 8448 Apr, Acquired hypothyroidism E03.[address] [id number] [id number] Mar, Encounter for dental examination and cleaning without abnormal findings Z01.20 [facility] [address] [place] [address] 55240- 0584 08 Mar, 2016 [facility] [id number] [place] [address] 92433- 0536 Mar, Bipolar disorder F31.9 ; Posttraumatic stress disorder F43.10 and Borderline personality disorder F60.3 [facility] [address] [place] [address] 47446- 1485 Mar, Essential (primary) hypertension I10 [facility] [id number] [place] [address] 66917- 3202 Feb, [facility] [id number] [place] [address] 30470- 2611 Feb, [facility] [address] [place] [address] 01321- 0307 11 Feb, 2016 Pelvic pain R10.2 ; Lipid screening Z13.220 ; Fatigue, unspecified type R53.83 and Weight gain R63.5 [facility] [id number] [place] [address] 93810- 5492 11 Feb, 2016 Bipolar disorder F31.9 ; Posttraumatic stress disorder F43.10 and Borderline personality disorder F60.3 [place] [id number] [place] [address] 88365- 6998 07 Feb, 2016 [place] [address] 39243- 2359 05 Feb, 2016 [place] [id number] [place] [address] 58207- 7583 30 Jan, 2016 Obstructive sleep apnea syndrome G47.33 [place] [id number] [place] [address] 62860- 7317 26 Jan, [address] [id number] [address] 19 Jan, 2016 Dental examination Z01.20 [place] [id number] [place] [address] 25986- 0519 13 Jan, 2016 Bipolar 1 disorder F31.9 ; Posttraumatic stress disorder F43.10 and Social anxiety disorder F40.10 [place] [id number] [place] [address] 46644- 5141 Jan, Bipolar disorder F31.9 ; Posttraumatic stress disorder F43.10 and Borderline personality disorder F60.3 [place] [address] [place] [address] 30781- 4266 13 Jan, 2016 Sciatica of left side M54.32 [facility] [id number] [place] [address] 95864- 8064 06 Jan, 2016 [place] [id number] [place] [address] 71364- 0372 Dec, [facility] [address] [place] [address] 17201- 4107 Dec, [facility] [id number] [place] [address] 34527711- 6505 Dec, Bipolar disorder F31.9 ; Posttraumatic stress disorder F43.10 and Borderline personality disorder F60.3 [facility] [id number] [place] [address] 43301- 7787 Nov, [facility] [id number] [place] [address] 08890- 0939 Nov, Insomnia, unspecified type G47.00 [facility] [id number] [place] [address] 07379- 0921 Nov, Bipolar disorder F31.9 ; Posttraumatic stress disorder F43.10 and Borderline personality disorder F60.3 [facility] [id number] [place] [address] 92315- 8526 Nov, [facility] [id number] [place] [address] 94568- 5554 Nov, [facility] [id number] [place] [address] 81039- 9119 Oct, Bipolar disorder F31.9 ; Posttraumatic stress disorder F43.10 and Borderline personality disorder F60.3 [facility] [id number] [place] [address] [phone] Oct, [facility] [place] [id number] [place] [address] [phone] Oct, Essential (primary) hypertension I10 [facility] [place] [id number] [place] [address] [phone] September, Bipolar 1 disorder F31.9 ; Posttraumatic stress disorder F43.10 and Social anxiety disorder F40.10 [facility] [place] [id number] [place] [address] [phone] September, Bipolar disorder F31.9 ; Posttraumatic stress disorder F43.10 and Borderline personality disorder F60.3 [facility] [address] [id number] [id number] September, Encounter for dental examination and cleaning without abnormal findings Z01.20 [facility] [place] [id number] [address] September, [facility] [place] [id number] [place] [address] [phone] September, [facility] [place] [id number] [place] [address] [phone] Aug, [facility] [place] [id number] [place] [address] [phone]- 3564 Aug, Bipolar disorder F31.9 ; Posttraumatic stress disorder F43.10 and Borderline personality disorder F60.3 [facility] [place] [id number] [place] [address] [phone] Aug, [facility] [id number] [place] [address] 32637- 1000 Aug, [facility] [place] [id number] [place] [address] 97112- 1365 Aug, [facility] [id number] [place] [id number] Jul, Acute nasopharyngitis [common cold] J00 and Other viral agents as the cause of diseases classified elsewhere B97.89 [facility] [place] [id number] [place] [address] 30413- 2016 Jul, Chronic pain G89.29 and Allergic rhinitis J30.9 [facility] [place] [id number] [place] [address] 37533- 9678 Jul, Bipolar 1 disorder F31.9 ; Posttraumatic stress disorder F43.10 and Social anxiety disorder F40.10 [facility] [id number] [place] [address] 95283- 5602 Jul, Bipolar 1 disorder F31.9 [facility] [place] [id number] [place] [address] 84247- 2592 16 Jul, 2015 Bipolar disorder F31.9 ; Posttraumatic stress disorder F43.10 and Borderline personality disorder F60.3 [facility] [place] [id number] [place] [address] 81548- 0460 14 Jul, 2015 [facility] [place] [id number] [place] [address] 35173- 5951 14 Jul, 2015 [facility] [place] [id number] [place] [address] 25526- 8735 11 Jul, 2015 [facility] [place] [id number] [place] [address] 01757- 9100 10 Jul, 2015 Anxiety F41.9 [facility] [place] [id number] [place] [address] 61188- 5165 10 Jul, 2015 Chronic pain G89.29 and Encounter for therapeutic drug level monitoring Z51.81 [facility] [place] [id number] [place] [address] 30241- 0579 09 Jul, 2015 Chronic pain G89.29 and Encounter for therapeutic drug level monitoring Z51.81 [facility] [place] [id number] [place] [address] 13287- 7530 08 Jul, 2015 [facility] [place] [id number] [place] [address] 24358- 6507 19 Jun, 2015 [facility] [place] [id number] [place] [address] 43287- 0209 19 Jun, 2015 [facility] [place] [id number] [place] [address] 51604- 3969 15 Jun, 2015 [facility] [place] [id number] [place] [address] 75676- 9192 15 Jun, 2015 [facility] [place] [id number] [place] [address] 00571- 5914 11 Jun, 2015 High risk medication use V58.69 [facility] [place] [id number] [place] [address] 60923- 8846 Jun, [facility] [place] [id number] [place] [address] 05003- 1038 Jun, Bipolar 1 disorder F31.9 ; Overdose T50.901A and Chronic pain G89.29 [facility] [place] [id number] [place] [address] 89418- 6402 Jun, Bipolar disorder F31.9 ; Posttraumatic stress disorder F43.10 and Borderline personality disorder F60.3 [facility] [place] [id number] [place] [address] 48078- 9433 Jun, [facility] [place] [address] 20690- 7347 Jun, [facility] [place] [id number] [place] [address] 02517- 7108 Jun, Keloid L91.0 [facility] [place] [id number] [place] [address] 51458- 9730 Jun, [facility] [place] [id number] [place] [address] 64691- 9605 May, [facility] [place] [id number] [place] [address] 33969- 7710 May, [facility] [place] [id number] [place] [address] 97833- 0840 May, Pelvic pain R10.2 [facility] [place] [id number] [place] [address] 09855- 9265 May, [facility] [place] [id number] [place] [address] 86184- 9193 May, Pain of left thumb M79.645 ; Incisional pain R20.8 ; Pelvic pain R10.2 and Essential hypertension I10 [facility] [place] [id number] [place] [address] 02932- 5767 May, [facility] [place] [address] [place] [address] 2457 May, [facility] [address] [id number] [id number] May, Dental examination Z01.20 and Necrosis of pulp K04.1 [facility] [address] [facility] [id number] [address]- 1513 Apr, [facility] [address] [facility] [id number] [place] [address] 18253- 6654 Apr, [facility] [address] [facility] [id number], [place] [address]- 1220 Apr, [facility] [address] [facility] [id number] [place] [address] 02236- 7429 Apr, [facility] [address] [id number] [address]- 7166 Apr, [facility] [address] [id number] [address]- 8031 Apr, [facility] [address] [id number] [address]- 6531 Apr, [facility] [address] [id number] [address]- 9319 Apr, [facility] [address] [id number] [address]- 4719 Mar, [facility] [place] [facility] [address] [facility] [id number], [place] [address]- 1556 Mar, [facility] [place] [facility] [address] [facility] [id number], [place] [address]- 8163 Mar, [facility] [place] [facility] [address] [facility] [id number], [place] [address]- 1063 Mar, [facility] [place] [facility] [address] [facility] [id number], [place] [address]- 1198 Feb, [facility] [place] [facility] [address] [id number] [address]- 0199 Feb, [facility] [place] [address] [address]- 5341 Feb, [facility] [place] [address] [address]- 0227 Feb, [facility] [place] [address] [address]- 4379 Feb, [facility] [place] [id number] [place] [address] 04866- 5232 Feb, [facility] [place] [id number] [place] [address] 85181- 6634 Feb, [facility] [place] [id number] [place] [address] 10491- 3173 Feb, Dermatofibroma of left lower leg D23.72 [facility] [place] [id number] [place] [address] 47933- 0758 Feb, Hematochezia 578.1 ; Low back pain M54.5 ; High risk medication use V58.69 ; Cervicalgia M54.2 and Anxiety F41.9 [facility] [address] [place] [address] [id number] [id number] Feb, Dental examination Z01.20 ; Pulpitis K04.0 and Dental caries, unspecified K02.9 [facility] [address] [place] [address] [id number] [id number] Feb, Dental examination Z01.20 [facility] [place] [address] [id number] [address]- 3451 30 Jan, 2015 [facility] [place] [address] [address]- 8863 Jan, [facility] [place] [address] [address]- 7842 Jan, [facility] [address] [address]- 2145 Jan, [facility] [address] [id number] [place] [address]- 1669 Dec, [facility] [address] [id number] [place] [address]- 2869 Dec, [facility] [address] [id number] [place] [address]- 7461 Dec, [facility] [address] [id number] [place] [address]- 7881 Dec, [facility] [address] [id number] [place] [address]- 9727 Dec, [facility] [address] [id number] [place] [address]- 4014 Dec, [facility] [address] [id number] [place] [address]- 1779 Dec, [facility] [address] [id number][place] [address]- 4406 Dec, [facility] [address] [facility] [id number] [id number] Nov, Encounter for removal of sutures V58.32 [facility] [address] [id number] [place] [address]- 0886 Nov, [facility] [address] [id number][place] [address]- 9992 Nov, [facility] [address] [id number], [place] [address]- 3145 Nov, [facility] [place] [facility] [address] [id number], [place] [address]- 3434 Nov, [facility] [place] [facility] [address] [id number], [place] [address]- 0082 Nov, [facility] [place] [facility] [address] [id number] [place] [address]- 4744 Nov, [facility] [address], [place] [address]- 8961 Nov, [facility] [address] [address]- 5015 Nov, Dermatofibroma 216.9 [facility] [place] [address], [place] [address]- 5389 Nov, [facility] [place] [address], [place] [address]- 2814 Nov, [facility] [place] [address], [place] [address]- 6072 Oct, [facility] [place] [address] [id number] [address]- 4546 Oct, Hematochezia 578.1 ; Abscess 682.9 ; GERD (gastroesophageal reflux disease) 530.81 ; Visual disturbance of one eye 368.9 and High risk medication use V58.69 [facility] [address] [address]- 2388 Oct, [facility] [address], [place] [address]- 6588 Oct, [facility] [place] [address], [place] [address]- 4176 Oct, [facility] [place] [address], [place] [address]- 1457 September, [facility] [place] [address], [place] [address]- 2159 September, [facility] [place] [address] [id number], [place] [address]- 0059 September, [facility] [place] [address], [place] [address]- 0309 September, [facility] [place] [address] [id number], [place] [address]- 9608 September, [facility] [address], [place] [address]- 0006 September, Colon cancer screening V76.51 [facility] [address] [place] [address]- 6921 September, [facility] [place] [facility] [address] [id number] 6042 Aug, [facility] [place] [facility] [address] [place] [address]- 5399 Aug, [facility] [place] [facility] [address] [facility] [id number] [place] [address]- 5023 Jul, [facility] [place] [facility] [address] 8824 Jul, [facility] [place] [facility] [address] [place] [address]- 9397 Jul, [facility] [place] [facility] [address] [place] [address]- 0976 Jul, [facility] [place] [facility] [address] [id number] [place] [address]- 9520 Jun, [facility] [place] [facility] [address] [place] [address]- 8636 Jun, [facility] [place] [facility] [address], [place] [address]- 4691 Jun, [facility] [place] [facility] [address], [place] [address]- 8209 Jun, [facility] [place] [facility] [address] [id number], [place] [address]- 1938 Jun, [facility] [place] [facility] [address] 4623 Jun, [facility] [place] [facility] [address] [id number] [address]- 8558 May, [facility] [place] [facility] [address], [place] [address]- 8036 May, [facility] [place] [facility] [address] [id number] [place] [address]- 3706 May, [facility] [place] [facility] [address] [id number] [place] [address]- 7719 May, [facility] [place] [facility] [address] [id number] [place] [address]- 4909 May, [facility] [place] [facility] [address] [id number] [place] [address]- 1318 May, [facility] [place] [facility] [address] [id number] [place] [address]- 2825 May, [facility] [place] [facility] [address] [id number] [place] [address]- 3510 May, [facility] [place] [facility] [address] [id number] [place] [address]- 0161 Apr, [facility] [place] [facility] [address] [id number] [place] [address]- 9588 Apr, [facility] [place] [facility] [address] [id number] [place] [address]- 8584 Apr, [facility] [place] [facility] [address] [id number] [place] [address]- 7057 Apr, [facility] [place] [facility] [address] [id number] [place] [address]- 3744 Apr, [facility] [place] [facility] [address] [id number] [place] [address]- 7147 Apr, [facility] [place] [facility] [address] [id number] [place] 0209 Apr, [facility] [place] [facility] [address] [id number] [place] 5111 Apr, [facility] [place] [facility] [address] [id number] [place] [address]- 0873 Mar, [facility] [place] [facility] [address] [id number] [place] [address]- 3215 Mar, [facility] [place] [facility] [address] [id number] [place] [address]- 2015 Mar, [facility] [place] [facility] [address] [id number] [place] [address]- 4520 Mar, [facility] [place] [facility] [address] [id number] [place] [address]- 1852 Mar, [facility] [place] [facility] [address] [id number] [place] [address]- 0538 Mar, [facility] [place] [facility] [address] [id number] [place] [address]- 2278 Mar, [facility] [place] [facility] [address] [id number] [place] [address]- 2569 Mar, [facility] [place] [facility] [address] [id number] [place] [address]- 1516 Mar, [facility] [place] [facility] [address] [id number] [place] [address]- 2007 Mar, [facility] [place] [facility] [address] [id number] [place] [address]- 6795 Feb, [facility] [place] [facility] [address] [id number] [place] [address]- 0134 Feb, [facility] [place] [facility] [address] [id number] [place] [address]- 4208 Jan, [facility] [place] [facility] [address] [id number] [place] [address]- 9949 Jan, [facility] [place] [facility] [address] [id number] [place] [address]- 3664 Jan, [facility] [place] [facility] [address] [id number] [place] [address]- 9720 Jan, [facility] [place] [facility] [address] [id number] [place] [address]- 9782 Dec, [facility] [place] [facility] [address] [id number] [place] [address]- 1006 Dec, [facility] [place] [facility] [address] [id number] [place] [address]- 1455 Dec, [facility] [place] [facility] [address] [id number] [place] [address]- 0184 Dec, [facility] [place] [facility] [address] [id number] [place] [address]- 7199 Dec, [facility] [place] [facility] [address] [id number] [place] [address]- 3370 Dec, [facility] [place] [facility] [address] [id number] [place] [address]- 0308 Nov, [facility] [place] [facility] [address] [id number] [place] [address]- 8204 Nov, [facility] [place] [facility] [address] [id number] [place] [address]- 7564 Oct, [facility] [place] [facility] [address] [id number] [place] [address]- 3460 Oct, [facility] [place] [facility] [address] [id number] [place] [address]- 4684 Oct, [facility] [place] [facility] [address] [id number] [place] [address]- 9690 Oct, [facility] [place] [facility] [address] [id number] [place] [address]- 4095 September, [facility] [place] [facility] [address] [id number] [place] [address]- 1759 September, [facility] [place] [facility] [address] [id number] [place] [address]- 0172 September, [facility] [place] [facility] [address] [id number] [place] [address]- 2686 September, [facility] [place] [facility] [address] [id number] [place] [address]- 8291 September, [facility] [address] [id number] [place] [address]- 8782 September, [facility] [place] [facility] [address] [id number] [place] [address]- 2084 September, [facility] [place] [facility] [address] [id number] [place] [address] September, [facility] [place] [facility] [address] [id number] [place] [address] Aug, [facility] [place] [facility] [address] [id number] [place] [address] Aug, [facility] [place] [facility] [address] [id number] [place] [address] Aug, [facility] [place] [facility] [address] [id number] [place] [address] Aug, [facility] [place] [facility] [address] [id number] [place] [address] Aug, [facility] [place] [facility] [address] [id number] [place] [address] Aug, [facility] [place] [facility] [address] [id number] [place] [address] Jul, [facility] [place] [facility] [address] [id number] [place] [address] Jul, [facility] [place] [facility] [address] [id number] [place] [address] Jul, [facility] [place] [facility] [address] [id number] [place] [address] Jul, [facility] [place] [facility] [address] [id number] [place] [address] Jun, [facility] [place] [facility] [address] [id number] [place] [address] Jun, [facility] [place] [facility] [address] [id number] [place] [address] Jun, [facility] [address] [id number] [place] [address] Jun, [facility] [address] [id number] [place] [address] Jun, [facility] [address] [id number] [place] [address] 2015 Jun, [facility] [address] [id number] [place] [address] May, [facility] [address] [id number] [place] [address] May, [facility] [address] [id number] [place] [address] May, [facility] [address] [id number] [place] [address] May, [facility] [address] [id number] [place] [address] May, [facility] [address] [id number] [place] [address] May, [facility] [address] [id number] [place] [address] May, [facility] [address] [id number] [place] [address] May, [facility] [address] [id number] [place] [address] Apr, [facility] [address] [place] [id number] Apr, [facility] [address] [id number] [place] [address] Apr, [facility] [address] [id number] [place] [address] Apr, [facility] [address] [id number] [place] [address] Apr, [facility] [place] [facility] [address] [id number] [place] [address] Apr, [facility] [place] [facility] [address] [id number] [place] [address] Apr, [facility] [place] [facility] [address] [id number] [place] [address] 05 Apr, 2013 [facility] [place] [facility] [address] [id number] [place] [address] Apr, [facility] [place] [facility] [address] [id number], [place] [address] Mar, [facility] [place] [facility] [address] [id number] [place] [address] Mar, [facility] [place] [facility] [address] [id number], [place] [address] Mar, [facility] [place] [facility] [address] [id number] [place] [address] Mar, [facility] [place] [facility] [address] [id number][place] [address] Mar, [facility] [place] [facility] [address] [id number], [place] [address] Feb, [facility] [place] [facility] [address] [id number], [place] [address] Feb, [facility] [place] [facility] [address] [id number], [place] [address] Feb, [facility] [place] [facility] [address] [id number], [place] [address] 14 Feb, 2013 [facility] [place] [facility] [address] [id number], [place] [address] Jan, [facility] [place] [facility] [address] [id number], [place] [address] Jan, [facility] [address] [id number] [place] [address] Jan, [facility] [place] [facility] [address] [id number] [place] [address] 25[address] Dec, [facility] [place] [facility] [address] [id number], [place] [address] Dec, [facility] [place] [facility] [address] [id number], [place] [address] Dec, [facility] [address] [id number] [id number] Nov, [facility] [address] [facility] [id number] [id number] Oct, [facility] [place] [facility] [address] [facility] [id number], [place] [address] Oct, [facility] [place] [facility] [address] [id number], [place] [address] September, [facility] [place] [facility] [address] [id number] [place] [address]16 September, [facility] [place] [facility] [address] [id number], [place] [address] September, [facility] [place] [facility] [address] [id number], [place] [address] September, [facility] [place] [facility] [address] [id number], [place] [address] September, [facility] [place] [facility] [address] [address] [id number] [place] [address] Jul, [facility] [place] [facility] [address] [id number] [place] [address] Jul, [facility] [place] [facility] [address] [id number] [place] [address] Jul, [facility] [place] [facility] [address] [id number] [place] [address] Jul, [facility] [address] [id number] [place] [address] Jun, [facility] [place] [facility] [address] [id number] [place] [address] Jun, [facility] [address] [id number] [place] [address] Jun, [facility] [place] [facility] [address] [id number] [place] [address] Jun, [facility] [address] [facility] [id number] [place] [address] May, [facility] [address] [facility] [id number] [place] [address] Mar, [facility] [address] [facility] [id number] [place] [address] Mar, [facility] [address] [id number] [place] [address] Mar, [facility] [address] [facility] [id number] [place] [address] Mar, [facility] [address] [facility] [id number] [place] [address] Mar, [facility] [place] [facility] [address] [facility] [id number] [place] [address] Mar, [facility] [place] [facility] [address] [id number] [place] [address] Mar, [facility] [place] [facility] [address] [facility] [id number] [place] [address] Mar, [facility] [place] [facility] [address] [facility] [id number] [place] [address] Feb, [facility] [place] [facility] [address] [facility] [id number] [place] [address] Feb, [facility] [place] [facility] [address] [id number] [place] [address] Feb, [facility] [place] [facility] [address] [id number] [place] [address] Feb, [facility] [place] [facility] [address] [id number] [place] [address] Feb, [facility] [place] [facility] [address] [id number] [place] [address] Feb, [facility] [place] [facility] [address] [id number] [place] [address] Feb, [facility] [address] [id number] [place] [id number] Jan, [facility] [address] [id number] [place] [id number] Dec, [facility] [address] [id number] [place] [id number] Dec, [facility] [place] [facility] [address] [id number] [place] [address] Nov, [facility] [place] [facility] [address] [facility] [id number] [place] [address] Nov, [facility] [place] [facility] [address] [facility] [id number] [address] Oct, [facility] [place] [facility] [address] [facility] [id number] [place] [address] Jul, [facility] [place] [facility] [address] [id number] [place] [address] Jul, [facility] [place] [facility] [address] [id number] [place] [address] May, [facility] [place] [facility] [address] [facility] [id number] [place] [address] May, [facility] [place] [facility] [address] [id number] [place] [address] Nov, [facility] [address] [id number] [address] Mar, [facility] [id number], [place] [address] Dec, [facility] [id number], [place] [address] Nov, [facility] [place] [id number], [place] [address] Aug, [facility] [place] [id number], [place] [address] Apr, [facility] [place] [id number], [place] [address] Apr, [facility] [place] [id number], [place] [address] Mar, [facility] [place] [address], [place] [address] Feb, [facility] [id number], [place] [address] September, [facility] [address], [place] [address] Jun, [facility] [address] [id number], [place] [address] Mar, IMMUNIZATIONS No Known Immunizations SOCIAL HISTORY Never Assessed REASON FOR VISIT PLAN OF CARE VITAL SIGNS MEDICATIONS Unknown [...] hernia Hospitalization History Went by ambulance to [facility] as unresponsive 05/2015 Hospitalization History [facility] sent her to [facility] for a psych hold 05/2015
--- OUTSIDE RECORDS SUMMARY | 2018-03-15 10:44 | XMS REPORT ---
Author Author HERBERT MCGOWAN [facility] Address [address] [place] [address] Care Team Providers Care Fundraiser Name Role Phone HERBERT MCGOWAN Unavailable PROBLEMS Type Condition ICD9-CM Code ESM51-UE Code Onset Dates Condition Status SNOMED Code Problem Psoriasis L40.9 Active 2599595 Problem Relationship problem with family member Z63.8 Active 364072577 Problem Essential hypertension I10 Active 47342290 Problem Anxiety F41.9 Active 71880159 Problem Visual disturbance H53.9 Active 74279463 Problem Rheumatoid arthritis involving multiple sites with positive rheumatoid factor M05.79 Active 642924412 Problem Bilateral low back pain with sciatica, sciatica laterality unspecified M54.40 Active 652989694 Problem Hypokalemia E87.6 Active 12566635 Problem Lumbago with sciatica, left side M54.42 Active 120669050 Problem Other chronic pain G89.29 Active 30218656 Problem 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 Active 532110041 Problem Blindness of right eye H54.40 Active 517682290 Problem Posttraumatic stress disorder F43.10 Active 59152530 Problem Overdose T50.901A Active 75320369 Problem Bipolar disorder F31.9 Active 13491864 Problem Borderline personality disorder F60.3 Active 66194303 Problem Obstructive sleep apnea G47.33 Active 29778419 Problem Acquired hypothyroidism E03.9 Active 298120868 Problem Pelvic pain R10.2 Active 49110960 Problem Chronic pain G89.29 Active 09381007 Problem Gastro-esophageal reflux disease without esophagitis K21.9 Active 642792246 Problem Anemia due to other cause, not classified D64.89 Active 955008683 Problem Social anxiety disorder F40.10 Active 69200206 Problem Morbid obesity, unspecified obesity type E66.01 Active 491238274 ALLERGIES Substance Reaction Event Type Date Status Sulfamethoxazole-Trimethoprim Unknown Drug Allergy Nov, Active Iodine Unknown Drug Allergy Nov, Active Imuran Pancytopenia Drug Allergy Nov, Active Codeine Sulfate Unknown Drug Allergy Nov, Active Aspirin Unknown Drug Allergy Nov, Active shell fish Unknown Non Drug Allergy Nov, Active IVP dye Unknown Non Drug Allergy Nov, Active tape Unknown Non Drug Allergy Nov, Active strawberries Unknown Non Drug Allergy Nov, Active tomatoes Unknown Non Drug Allergy Nov, Active ENCOUNTERS Encounter Location Date Diagnosis [place] [address] [place] [address] 72086- 4396 Feb, [place] [address] [place] [id number] [place] [address] 16434- 4418 Feb, [place] [address] [place] [id number] [place] [address] 72052- 1348 Feb, [place] [address] [address] [id number] [place] [address] 70955- 5886 Jan, [place] [address] [place] [id number] [place] [address] 46005- 1787 Dec, Bipolar disorder F31.9 ; Posttraumatic stress disorder F43.10 and Borderline personality disorder F60.3 [place] [address] [place] [id number] [place] [address] 42498- 4272 Dec, 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 ; Anemia due to other cause, not classified D64.89 ; Rheumatoid arthritis involving multiple sites with positive rheumatoid factor M05.79 ; 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 ; Dysuria R30.0 ; Urinary tract infection without hematuria, site unspecified N39.0 and Blindness of right eye H54.40 [place] [address] [address] 5327 Dec, [place] [address] [place] [id number] [place] [address] 52274- 3580 Dec, [address] [id number] [id number] Dec, Dental examination Z01.20 [place] [address] [place] [id number] [place] [address] 53686- 9533 Nov, Bipolar disorder F31.9 ; Posttraumatic stress disorder F43.10 and Borderline personality disorder F60.3 [place] [address] [place] [id number] [place] [address] 61304- 3182 Nov, Rheumatoid arthritis involving multiple sites with positive rheumatoid factor M05.79 ; Dysuria R30.0 and Blindness of right eye H54.40 [place] [address] 48580- 2574 Nov, Bipolar disorder F31.9 ; Posttraumatic stress disorder F43.10 ; Social anxiety disorder F40.10 and Relationship problem with family member Z63.8 [place] [id number] [place] [address] 39738- 8846 Nov, [address] 75603- 7046 Nov, [place] [address] 99022- 2143 Nov, 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 ; Adverse effect of antineoplastic and immunosuppressive drugs, initial encounter T45.1X5A ; Anemia , unspecified D64.9 and BMI 40.0-44.9, adult Z68.41 [place] [id number] [place] [address] 98822- 7307 Nov, Anemia due to other cause, not classified D64.89 [place] [address] [place] [id number] [place] [address] 89908- 4394 Oct, Adverse effect of drug, initial encounter T50.905A and Acute anemia D64.[address] 43697- 8025 Oct, Anemia due to other cause, not classified D64.89 ; Dysuria R30.0 and Urinary tract infection without hematuria, site unspecified N39.0 [place] [id number] [place] [address] 95413- 7558 Oct, [facility] [address] [address] 3344 Oct, [facility] [address] [place] [address] 17243- 6209 Oct, 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 [facility] [id number] [id number] 13 Oct, 2017 [facility] [address] [place] [id number] [place] [address] 63594- 6207 Oct, [facility] [address] [place] [address] 69045- 5569 Oct, [facility] [address] [place] [id number] [place] [address] 49212- 7935 Oct, Bipolar disorder F31.9 ; Posttraumatic stress disorder F43.10 and Borderline personality disorder F60.3 [place] [address] [place] [id number] [place] [address] 29254- 4301 Oct, Rheumatoid arthritis involving multiple sites with positive rheumatoid factor M05.79 ; 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 and Anxiety F41.9 [place] [address] [place] [address] 53400- 3506 Oct, [facility] [address] [place] [address] 69952- 0606 September, 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 [facility] [address] [place] [address] 13401- 0735 September, Bipolar disorder F31.9 ; Posttraumatic stress disorder F43.10 and Borderline personality disorder F60.3 [facility] [address] [place] [id number] [place] [address] 48893- 3368 Aug, BMI 40.0-44.9, adult Z68.41 ; Bipolar disorder F31.9 ; Posttraumatic stress disorder F43.10 and Social anxiety disorder F40.10 [facility] [address] [place] [id number] [place] [address] 15111- 8301 Aug, Bipolar disorder F31.9 ; Posttraumatic stress disorder F43.10 and Borderline personality disorder F60.3 [facility] [address] [place] [id number] [place] [address] 00021- 8505 Aug, 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 [facility] [address] [place] [id number] [place] [address] 30242- 8856 Jul, Bipolar disorder F31.9 ; Posttraumatic stress disorder F43.10 and Borderline personality disorder F60.3 [facility] [address] [place] [id number] [place] [address] 24745- 5107 Jul, [place] [address] [place] [id number] [place] [address] 20863- 4538 Jun, Bipolar disorder F31.9 ; Posttraumatic stress disorder F43.10 and Borderline personality disorder F60.3 [place] [address] [place] [id number] [place] [address] 05091- 4006 Jun, Blindness of right eye H54.40 and Acquired hypothyroidism E03.9 [place] [address] [place] [id number] [place] [address] 86226- 4465 Jun, [facility] [address] [place] [id number] [place] [address] 99205- 5820 May, Posttraumatic stress disorder F43.10 ; Social anxiety disorder F40.10 and Bipolar disorder F31.9 [facility] [address] [place] [id number] [place] [address] 73996- 2611 May, Bipolar disorder F31.9 ; Posttraumatic stress disorder F43.10 and Borderline personality disorder F60.3 [facility] [address] [place] [address] [id number] [place] [address] 52544- 0916 May, [facility] [address] [place] [id number] [place] [address] 07183- 4536 May, [facility] [address] [place] [address] [id number] [place] [address] 75952- 2928 Apr, Bipolar disorder F31.9 ; Posttraumatic stress disorder F43.10 and Borderline personality disorder F60.3 [facility] [address] [place] [id number] [id number] Apr, [facility] [address] [place] [address] 39863- 9186 Apr, [facility] [address] [place] [address] 57584- 1545 Mar, Hydradenitis L73.2 [facility] [address] [place] [address] 69300- 9034 15 Mar, 2017 Lumbago with sciatica, left side M54.42 ; Other chronic pain G89.29 ; Morbid obesity, unspecified obesity type E66.01 ; Hydradenitis L73.2 and BMI 40.0-44.9, adult Z68.41 [facility] [address] [place] [address] 42362- 7663 Mar, Bipolar disorder F31.9 ; Posttraumatic stress disorder F43.10 and Borderline personality disorder F60.3 [facility] [address] [place] [address] 86756- 4147 Mar, Social anxiety disorder F40.10 ; Bipolar disorder F31.9 and Relationship problem with family member Z63.8 [facility] [address] [address]- 4963 Mar, [address] [id number] [id number] Mar, Dental examination Z01.20 [facility] [address], [place] [address]- 4199 Mar, [place] [address] [place] [address] 09840- 2937 Feb, Bipolar disorder F31.9 ; Posttraumatic stress disorder F43.10 and Borderline personality disorder F60.3 [facility] [id number] [place] [id number] Feb, [facility] [address], [place] [address]- 2110 Jan, Bipolar disorder F31.9 ; Posttraumatic stress disorder F43.10 and Borderline personality disorder F60.3 [facility] [address] [id number] [id number] Jan, [facility] [address], [place] [address]- 5789 Jan, [facility] [address] [id number] Jan, [facility] [address] [place] [id number] [place] [address] 93258- 3016 Dec, Bipolar disorder F31.9 ; Posttraumatic stress disorder F43.10 and Borderline personality disorder F60.3 [facility] [address] [place] [address] 55788- 4470 Dec, [facility] [address], [place] [address]- 4302 Dec, [facility] [address]100[place] [id number] Dec, [facility] [address], [place] [address]- 3897 Nov, Bipolar 1 disorder F31.9 ; Posttraumatic stress disorder F43.10 and Social anxiety disorder F40.10 [facility] [address], [place] [address]- 2929 Nov, Bipolar disorder F31.9 ; Posttraumatic stress disorder F43.10 and Borderline personality disorder F60.3 [facility] [address], [place] [address]- 4692 Nov, Morbid obesity, unspecified obesity type E66.01 [facility] [address], [place] [address]- 4344 Nov, [facility] [address] [id number][place] [id number] Oct, Encounter for dental examination and cleaning without abnormal findings Z01.20 [place] [address] [place] [id number] [place] [address] 24704- 4996 15 Oct, 2016 Morbid obesity, unspecified obesity type E66.01 and Acute seasonal allergic rhinitis due to pollen J30.1 [place] [address] [place] [id number] [place] [address] 62846- 5168 Oct, Bipolar disorder F31.9 ; Posttraumatic stress disorder F43.10 and Borderline personality disorder F60.3 [place] [address] [place] [id number] [place] [address] 83783- 5008 September, Morbid obesity, unspecified obesity type E66.01 and Psoriasis L40.9 [place] [address] [place] [id number] [place] [address] 64310- 9728 September, Bipolar disorder F31.9 ; Posttraumatic stress disorder F43.10 and Borderline personality disorder F60.3 [place] [address] [place] [id number] [place] [address] 41513- 8899 September, Chronic pain G89.29 [place] [address] [place] [id number] [place] [address] 39111- 5039 Aug, Other acute nonsuppurative otitis media of right ear H65.191 and Morbid obesity, unspecified obesity type E66.01 [place] [address] [place] [address] 77818- 5872 Aug, Bipolar 1 disorder F31.9 ; Posttraumatic stress disorder F43.10 and Social anxiety disorder F40.10 [place] [address] [place] [address] 44475- 3452 Aug, Bipolar disorder F31.9 ; Posttraumatic stress disorder F43.10 and Borderline personality disorder F60.3 [place] [address] [place] [id number] [place] [address] 70918- 8925 Jul, Morbid obesity due to excess calories E66.01 ; Gastro- esophageal reflux disease without esophagitis K21.9 and Chronic pain G89.29 [facility] [address], [place] [address]- 3431 15 Jul, 2016 Morbid obesity due to excess calories E66.01 [facility] [address] [place] [address] 89580- 8786 Jul, [facility] [address] [place] [id number] [place] [address] 71124- 4147 Jul, [facility] [address] [place] [id number] [place] [address] 41980- 9943 Jul, Morbid obesity due to excess calories E66.01 [facility] [address] [place] [id number] [place] [address] 81297- 9770 Jul, Bipolar disorder F31.9 ; Posttraumatic stress disorder F43.10 and Borderline personality disorder F60.3 [facility] [address] [place] [id number] [place] [address] 36855- 0484 Jun, [facility] [address] [place] [id number] [place] [address] 26990- 5150 Jun, Morbid obesity due to excess calories E66.01 [facility] [address] [place] [id number] [place] [address] 32217- 7243 Jun, [facility] [address] [place] [address] 88632- 0444 Jun, Morbid obesity, unspecified obesity type E66.01 [facility] [address] [place] [address] 73960- 8054 Jun, Bipolar disorder F31.9 ; Posttraumatic stress disorder F43.10 and Borderline personality disorder F60.3 [facility] [address] [place] [id number] [place] [address] 47921- 9523 Jun, [facility] [address] [place] [id number] [place] [address] 45595- 2792 Jun, [facility] [address] [place] [id number] [place] [address] 95494- 9755 Jun, Acquired hypothyroidism E03.9 and Morbid obesity due to excess calories E66.01 [facility] [address] [place] [address] 05076- 0625 May, Bipolar disorder F31.9 ; Posttraumatic stress disorder F43.10 and Borderline personality disorder F60.3 [facility] [address] [place] [address] 30067- 9555 Apr, Bipolar 1 disorder F31.9 ; Posttraumatic stress disorder F43.10 and Social anxiety disorder F40.[address] [id number] [id number] 12 Apr, 2016 Encounter for dental examination Z01.20 [facility] [address] [place] [id number] [place] [address] 51114- 8593 08 Apr, 2016 [facility] [address] [place] [id number] [place] [address] 10852- 1774 08 Apr, 2016 Acquired hypothyroidism E03.9 [facility] [address] [place] [id number] [place] [address] 44085- 0498 Apr, Acquired hypothyroidism E03.9 [facility] [address] [place] [id number] [place] [address] 44223- 4297 07 Apr, 2016 Bipolar disorder F31.9 ; Posttraumatic stress disorder F43.10 and Borderline personality disorder F60.3 [facility] [address] [place] [address] 77005- 0985 Apr, Acquired hypothyroidism E03.[address] [id number] [id number] 23 Mar, 2016 Encounter for dental examination and cleaning without abnormal findings Z01.20 [facility] [address] [place] [address] 06248- 3923 08 Mar, 2016 [facility] [address] [place] [address] 28442- 6736 08 Mar, 2016 Bipolar disorder F31.9 ; Posttraumatic stress disorder F43.10 and Borderline personality disorder F60.3 [facility] [address] [place] [address] 54427- 6246 Mar, Essential (primary) hypertension I10 [facility] [address] [place] [id number] [place] [address] 02030- 0166 Feb, [facility] [address] [place] [id number] [place] [address] 72415- 5389 14 Feb, 2016 [facility] [address] 74423- 6126 11 Feb, 2016 Pelvic pain R10.2 ; Lipid screening Z13.220 ; Fatigue, unspecified type R53.83 and Weight gain R63.5 [place] [address] [place] [id number] [place] [address] 54561- 0456 11 Feb, 2016 Bipolar disorder F31.9 ; Posttraumatic stress disorder F43.10 and Borderline personality disorder F60.3 [place] [address] [place] [id number] [place] [address] 57746- 2640 07 Feb, 2016 [facility] [address] [place] [id number] [place] [address] 32710- 5698 05 Feb, 2016 [facility] [address] [place] [address] [id number] [place] [address] 74398- 0308 30 Jan, 2016 Obstructive sleep apnea syndrome G47.33 [facility] [address] [place] [id number] [place] [address] 10357- 4856 26 Jan, [address] [facility] [address] [id number] [id number] 19 Jan, 2016 Dental examination Z01.20 [facility] [address] [place] [id number] [place] [address] 69501- 6273 13 Jan, 2016 Bipolar 1 disorder F31.9 ; Posttraumatic stress disorder F43.10 and Social anxiety disorder F40.10 [facility] [address] [place] [address] 45276- 5310 13 Jan, 2016 Bipolar disorder F31.9 ; Posttraumatic stress disorder F43.10 and Borderline personality disorder F60.3 [facility] [address], [place] [address]- 6676 Jan, Sciatica of left side M54.32 [facility] [address], [place] [address]- 1946 Jan, [facility] [address] [place] [address] 41200- 1136 Dec, [facility] [id number] [place] [address] 92130- 6706 Dec, [facility] [id number] [place] [address] 24667- 2589 Dec, Bipolar disorder F31.9 ; Posttraumatic stress disorder F43.10 and Borderline personality disorder F60.3 [facility] [address] [place] [address] 98467- 5546 Nov, [facility] [id number] [place] [address] 52515- 0848 Nov, Insomnia, unspecified type G47.00 [facility] [address] [place] [address] 25218- 1675 Nov, Bipolar disorder F31.9 ; Posttraumatic stress disorder F43.10 and Borderline personality disorder F60.3 [facility] [address], [place] [address] 2546 Nov, [facility] [address], [place] [address] 2546 Nov, [facility] [address] [place] [address] 37026- 3971 Oct, Bipolar disorder F31.9 ; Posttraumatic stress disorder F43.10 and Borderline personality disorder F60.3 [facility] [address], [place] [address] 2546 Oct, [facility] [id number] [place] [address] 31069- 7787 Oct, Essential (primary) hypertension I10 [facility] [address], [place] [address]- 2843 September, Bipolar 1 disorder F31.9 ; Posttraumatic stress disorder F43.10 and Social anxiety disorder F40.10 [facility] [address], [place] [address]- 8924 September, Bipolar disorder F31.9 ; Posttraumatic stress disorder F43.10 and Borderline personality disorder F60.[address] [id number] [id number] September, Encounter for dental examination and cleaning without abnormal findings Z01.20 [facility] [id number] [place] [address] 99278- 7636 September, [facility] [address] [place] [address] 29131- 2563 September, [facility] [address] [place] [address] 88949- 9559 Aug, [facility] [address] [place] [address] 84363- 3006 Aug, Bipolar disorder F31.9 ; Posttraumatic stress disorder F43.10 and Borderline personality disorder F60.3 [facility] [address], [place] [address]- 5513 Aug, [facility] [address] [place] [address] 20234- 5971 Aug, [facility] [id number], [place] [address]- 7012 Aug, [facility] [id number] [place] [address] [id number] Jul, Acute nasopharyngitis [common cold] J00 and Other viral agents as the cause of diseases classified elsewhere B97.89 [facility] [id number] [place] [address] Jul, Chronic pain G89.29 and Allergic rhinitis J30.9 [facility] [address], [place] [address] 24 Jul, 2015 Bipolar 1 disorder F31.9 ; Posttraumatic stress disorder F43.10 and Social anxiety disorder F40.10 [facility] [address], [place] [address] 16 Jul, 2015 Bipolar 1 disorder F31.9 [facility] [id number] [place] [address] 16 Jul, 2015 Bipolar disorder F31.9 ; Posttraumatic stress disorder F43.10 and Borderline personality disorder F60.3 [facility] [id number] [place] [id number] 14 Jul, 2015 [facility] [facility] [id number] [place] [address] 73307- 4509 14 Jul, 2015 [facility] [id number] [place] [address] 51028- 6656 11 Jul, 2015 [facility] [id number] [place] [address] 02595- 6022 10 Jul, 2015 Anxiety F41.9 [facility] [id number] [place] [address] 79667- 6339 10 Jul, 2015 Chronic pain G89.29 and Encounter for therapeutic drug level monitoring Z51.81 [facility] [id number] [place] [address] 44822 2543 09 Jul, 2015 Chronic pain G89.29 and Encounter for therapeutic drug level monitoring Z51.81 [facility] [address] [address] 4592 08 Jul, 2015 [facility] [id number] [place] [address] 98122- 1196 Jun, [facility] [address] [address] 2719 Jun, [facility] [id number] [place] [address] 82762- 2256 15 Jun, 2015 [facility] [id number] [place] [address] 78158- 7731 Jun, [facility] [id number] [place] [address] 80639- 9428 11 Jun, 2015 High risk medication use V58.69 [facility] [address] 01214- 8634 Jun, [facility] [id number] [place] [address] 74238- 3985 Jun, Bipolar 1 disorder F31.9 ; Overdose T50.901A and Chronic pain G89.29 [facility] [id number] [place] [address] 58513- 2831 Jun, Bipolar disorder F31.9 ; Posttraumatic stress disorder F43.10 and Borderline personality disorder F60.3 [facility] [id number] [place] [address] 57232- 2531 08 Jun, 2015 [facility] [id number] [place] [address] 14267- 3554 Jun, [facility] [id number] [place] [address] 93665- 7249 Jun, Keloid L91.0 [facility] [id number] [place] [address] 84216- 5653 Jun, [facility] [id number] [place] [address] 95265- 4718 May, [facility] [address] 10285- 7057 May, [facility] [id number] [place] [address] 05422- 2164 May, Pelvic pain R10.2 [facility] [address] 12943- 7401 May, [facility] [address] [address]- 1117 May, Pain of left thumb M79.645 ; Incisional pain R20.8 ; Pelvic pain R10.2 and Essential hypertension I10 [facility] [address], [place] [address]- 8880 May, [facility] [id number] [place] [address] 22284- 2083 May, [address] [id number] [id number] May, Dental examination Z01.20 and Necrosis of pulp K04.1 [facility] [id number] [place] [address] 70306- 6402 Apr, [facility] [id number] [place] [address] 92010- 6253 Apr, [facility] [id number] [place] [address] 41000- 2359 Apr, [facility] [id number] [place] [address] 01368- 8774 Apr, [facility] [address], [place] [address]- 5365 Apr, [facility] [id number] [place] [address] 70279- 2984 Apr, [facility] [address], [place] [address]- 2547 Apr, [facility] [id number] [place] [address] 08138- 6291 Apr, [facility] [address], [place] [address]- 2811 Mar, [facility] [id number] [place] [address] 64589- 4062 Mar, [facility] [address] [id number], [place] [address]- 8357 Mar, [facility] [address] [facility] [id number], [place] [address]- 6827 Mar, [facility] [address] [facility] [id number], [place] [address]- 9109 Feb, [facility] [address] [facility] [id number] [place] [address] 96200- 6339 Feb, [facility] [address] [facility] [id number], [place] [address]- 5685 Feb, [facility] [id number] [place] [address] 57649- 2155 Feb, [facility] [address], [place] [address]- 7045 Feb, [facility] [id number] [place] [address] 83149- 0462 Feb, [facility] [address], [place] [address]- 9240 Feb, [facility] [id number] [place] [address] 39120- 7675 Feb, Dermatofibroma of left lower leg D23.72 [facility] [address], [place] [address]- 5757 Feb, Hematochezia 578.1 ; Low back pain M54.5 ; High risk medication use V58.69 ; Cervicalgia M54.2 and Anxiety F41.9 [facility] [address] [id number] [id number] Feb, Dental examination Z01.20 ; Pulpitis K04.0 and Dental caries, unspecified K02.9 [facility] [address] [id number] [id number] Feb, Dental examination Z01.20 [facility] [address] [id number] [place] [address]- 1821 Jan, [facility] [address] [id number] [place] [address]- 5670 Jan, [facility] [address] [id number] [place] [address]- 0103 Jan, [facility] [address] [id number] [place] [address]- 0947 Jan, [facility] [address] [id number] [place] [address]- 9741 Dec, [facility] [address] [id number] [place] [address]- 7066 Dec, [facility] [address] [id number] [place] [address]- 1924 Dec, [facility] [address] [id number] [place] [address]- 6975 Dec, [facility] [address] [id number], [place] [address]- 6554 Dec, [facility] [address] [id number] [place] [address]- 1647 Dec, [facility] [address] [id number] [address]- 3683 Dec, [facility] [address] [id number], [place] [address]- 1489 Dec, [facility] [place] [address] [facility] [id number] [id number] Nov, Encounter for removal of sutures V58.32 [facility] [address] [id number] [place] [address]- 4151 Nov, [facility] [address] [id number], [place] [address]- 7425 Nov, [facility] [address] [id number], [place] [address]- 0044 Nov, [facility] [address], [place] [address]- 4721 Nov, [facility] [id number] [place] [address] 36603- 7471 Nov, [facility] [address], [place] [address]- 2815 Nov, [facility] [id number] [place] [address] 88761- 9548 Nov, [facility] [id number] [place] [address] 71287- 3509 Nov, Dermatofibroma 216.9 [facility] [id number] [place] [address] 98153- 2627 Nov, [facility] [id number] [place] [address] 50944- 2492 Nov, [facility] [address] [id number], [place] [address]- 2947 Oct, [facility] [id number] [place] [address] 75011- 0964 Oct, Hematochezia 578.1 ; Abscess 682.9 ; GERD (gastroesophageal reflux disease) 530.81 ; Visual disturbance of one eye 368.9 and High risk medication use V58.69 [facility] [address], [place] [address]- 1970 Oct, [facility] [address], [place] [address]- 1287 Oct, [facility] [id number], [place] [address]- 0229 Oct, [facility] [address], [place] [address]- 4626 September, [facility] [address], [place] [address]- 8639 September, [facility] [address] [id number] [place] [address]- 1820 September, [facility] [place] [facility] [address] [id number] [place] [address]- 3094 September, [facility] [place] [facility] [address] [facility] [id number] [place] [address]- 6030 September, [facility] [place] [facility] [address] [facility] [id number] [place] [address]- 1923 September, Colon cancer screening V76.51 [facility] [place] [facility] [address] [id number] [place] [address]- 8122 September, [facility] [place] [facility] [address] [facility] [id number] [place] [address]- 0418 Aug, [facility] [place] [facility] [address] [facility] [id number] [place] [address]- 0169 Aug, [facility] [place] [facility] [address] [facility] [id number] [place] [address]- 5374 Jul, [facility] [place] [facility] [address] [facility] [id number] [place] [address]- 4726 Jul, [facility] [place] [facility] [address] [facility] [id number] [place] [address]- 0022 Jul, [facility] [place] [facility] [address] [facility] [id number] [place] [address]- 9143 Jul, [facility] [place] [facility] [address] [facility] [id number] [place] [address]- 4324 Jun, [facility] [place] [facility] [address] [id number] [place] 7943 Jun, [facility] [place] [facility] [address] [facility] [id number] [place] 1656 Jun, [facility] [place] [facility] [address] [facility] [id number] [place] [address]- 6548 Jun, [facility] [place] [facility] [address] [id number] [place] [address]- 6386 Jun, [facility] [place] [facility] [address] [id number] [place] 1891 Jun, [facility] [place] [facility] [address] [id number] [place] [address]- 3752 May, [facility] [place] [facility] [address] [id number] [place] [address]- 0472 May, [facility] [place] [facility] [address] [id number] [place] [address]- 8002 May, [facility] [place] [facility] [address] [id number] [place] [address]- 7133 May, [facility] [place] [facility] [address] [id number] [place] [address]- 8078 May, [facility] [place] [facility] [address] [id number] [place] [address]- 3148 May, [facility] [place] [facility] [address] [id number] [place] [address]- 4127 May, [facility] [place] [facility] [address] [id number] [place] [address]- 9470 May, [facility] [place] [facility] [address] [id number] [place] [address]- 3263 Apr, [facility] [place] [facility] [address] [id number] [place] [address]- 4951 Apr, [facility] [place] [facility] [address] [id number] [place] [address]- 4962 Apr, [facility] [place] [facility] [address] [id number] [place] [address]- 3455 Apr, [facility] [place] [facility] [address] [id number] [place] 4703 Apr, [facility] [place] [facility] [address] [id number] [place] [address]- 4971 Apr, [facility] [place] [facility] [address] [id number] [place] [address]- 9094 Apr, [facility] [place] [facility] [address] [id number] [place] [address]- 1673 Apr, [facility] [place] [facility] [address] [id number] [place] [address]- 4147 Mar, [facility] [place] [facility] [address] [id number] [place] [address]- 3836 Mar, [facility] [place] [facility] [address] [id number] [place] [address]- 4410 Mar, [facility] [place] [facility] [address] [id number] [place] [address]- 8267 Mar, [facility] [place] [facility] [address] [id number] [place] [address]- 8647 Mar, [facility] [place] [facility] [address] [id number], [place] [address]- 4698 Mar, [facility] [place] [facility] [address] [id number], [place] [address]- 9475 Mar, [facility] [place] [facility] [address] [id number], [place] [address]- 1387 Mar, [facility] [place] [facility] [address] [id number], [place] [address]- 0805 Mar, [facility] [place] [facility] [address] [id number], [place] [address]- 6397 Mar, [facility] [place] [facility] [address] [id number], [place] [address]- 1555 Feb, [facility] [place] [facility] [address] [id number], [place] [address]- 4231 Feb, [facility] [place] [facility] [address] [id number], [place] [address]- 9804 Jan, [facility] [place] [facility] [address] [id number] [place] [address]- 9977 Jan, [facility] [place] [facility] [address] [id number] [place] [address]- 7638 Jan, [facility] [place] [facility] [address] [id number] [place] [address]- 9364 Jan, [facility] [place] [facility] [address] [id number] [place] [address]- 2054 Dec, [facility] [place] [facility] [address] [id number] [place] [address]- 5030 Dec, [facility] [place] [facility] [address] [id number] [place] [address]- 8872 Dec, [facility] [place] [facility] [address] [id number] [place] [address]- 0270 Dec, [facility] [place] [facility] [address] [id number] [place] [address]- 5172 Dec, [facility] [place] [facility] [address] [id number] [place] [address]- 0308 Dec, [facility] [place] [facility] [address] [id number] [place] [address]- 0993 Nov, [facility] [place] [facility] [address] [id number] [place] [address]- 0119 Nov, [facility] [place] [facility] [address] [id number] [place] [address]- 9963 Oct, [facility] [place] [facility] [address] [id number] [place] [address]- 4704 Oct, [facility] [place] [facility] [address] [id number] [place] [address]- 5456 Oct, [facility] [place] [facility] [address] [id number] [place] [address]- 3844 Oct, [facility] [place] [facility] [address] [id number] [place] [address]- 7857 September, [facility] [place] [facility] [address] [id number] [place] [address]- 3295 September, [facility] [address] [id number] [place] [address]- 0316 September, [facility] [place] [facility] [address] [id number] [place] [address]- 9020 September, [facility] [place] [facility] [address] [id number] [place] [address]- 3153 September, [facility] [address] [id number] [place] [address]- 3753 September, [facility] [place] [facility] [address] [id number] [place] [address]- 8033 September, [facility] [address] [id number] [place] [address]- 3954 September, [facility] [address] [id number] [place] [address]- 3772 Aug, [facility] [place] [facility] [address] [id number] [place] [address]- 1799 Aug, [facility] [place] [facility] [address] [id number] [place] [address]- 2116 Aug, [facility] [place] [facility] [address] [id number] [place] [address]- 9422 Aug, [facility] [place] [facility] [address] [id number] [place] [address]- 8347 Aug, [facility] [place] [facility] [address] [id number] [place] [address]- 4208 Aug, [facility] [place] [facility] [address] [id number] [place] [address]- 2070 Jul, [facility] [place] [facility] [address] [id number] [place] [address]- 4135 Jul, [facility] [place] [facility] [address] [id number] [place] [address]- 4927 Jul, [facility] [place] [facility] [address] [id number] [place] [address]- 1488 Jul, [facility] [place] [facility] [address] [id number] [place] [address]- 9456 Jun, [facility] [place] [facility] [address] [id number] [place] [address]- 3366 Jun, [facility] [place] [facility] [address] [id number] [place] [address]- 0579 Jun, [facility] [place] [facility] [address] [id number] [place] [address]- 5949 Jun, [facility] [place] [facility] [address] [id number] [place] [address]- 2504 Jun, [facility] [place] [facility] [address] [id number] [place] [address]- 7459 Jun, [facility] [place] [facility] [address] [id number] [place] [address]- 4195 May, [facility] [place] [facility] [address] [id number] [place] [address]- 8298 May, [facility] [place] [facility] [address] [id number] [place] [address]- 7628 May, [facility] [place] [facility] [address] [id number] [place] [address]- 1990 May, [facility] [place] [facility] [address] [id number] [place] [address]- 7098 May, [facility] [place] [facility] [address] [id number] [place] [address]- 7290 May, [facility] [place] [facility] [address] [id number] [place] [address]- 1841 May, [facility] [place] [facility] [address] [id number], [place] [address]- 1269 May, [facility] [place] [facility] [address] [id number] [place] [address]- 8310 16 Apr, 2013 [facility] [place] [address] [place] [id number] 16 Apr, 2013 [facility] [address] [id number] [place] [address] 16 Apr, 2013 [facility] [address] [id number] [place] [address] 16 Apr, 2013 [facility] [address] [id number] [place] [address] Apr, [facility] [address] [id number] [place] [address] Apr, [facility] [address] [id number] [place] [address] 05 Apr, 2013 [facility] [address] [id number] [place] [address] 05 Apr, 2013 [facility] [address] [id number] [place] [address] 04 Apr, 2013 [facility] [address] [id number] [place] [address] Mar, [facility] [address] [id number] [place] [address] Mar, [facility] [address] [id number] [place] [address] Mar, [facility] [address] [id number] [place] [address] Mar, [facility] [address] [id number] [place] [address] Mar, [facility] [address] [id number] [place] [address] Feb, [facility] [address] [id number] [place] [address] Feb, [facility] [address] [id number] [place] [address] Feb, [facility] [address] [id number] [place] [address] Feb, [facility] [address] [id number] [place] [address] Jan, [facility] [address] [id number] [place] [address] Jan, [facility] [address] [id number] [place] [address] Jan, [facility] [address] [id number] [place] [address] Dec, [facility] [address] [id number] [place] [address] Dec, [facility] [address] [id number] [place] [address] Dec, [facility] [address] [id number] [place] [id number] Nov, [facility] [address] [facility] [address] [id number] [place] [id number] Oct, [facility] [address] [id number] [place] [address] Oct, [facility] [address] [id number] [place] [address] September, [facility] [address] [id number] [place] [address] September, [facility] [place] [facility] [address] [id number] [place] [address] September, [facility] [place] [facility] [address] [id number] [place] [address] September, [facility] [place] [facility] [address] [id number] [place] [address] September, [facility] [place] [facility] [address] [id number] [place] [address] Jul, [facility] [place] [facility] [address] [id number] [place] [address] Jul, [facility] [place] [facility] [address] [id number] [place] [address] Jul, [facility] [place] [facility] [address] [id number] [place] [address] Jul, [facility] [place] [facility] [address] [id number] [place] [address] Jun, [facility] [place] [facility] [address] [id number] [place] [address] Jun, [facility] [place] [facility] [address] [id number] [place] [address] Jun, [facility] [place] [facility] [address] [id number] [place] [address] Jun, [facility] [place] [facility] [address] [id number] [place] [address] May, [facility] [place] [facility] [address] [id number] [place] [address] Mar, [facility] [place] [facility] [address] [id number] [place] [address] Mar, [facility] [place] [facility] [address] [id number] [place] [address] Mar, [facility] [place] [facility] [address] [id number] [place] [address] Mar, [facility] [place] [facility] [address] [id number] [place] [address] Mar, [facility] [place] [facility] [address] [id number] [place] [address] Mar, [facility] [place] [facility] [address] [id number] [place] [address] Mar, [facility] [place] [facility] [address] [id number] [place] [address] Mar, [facility] [place] [facility] [address] [id number] [place] [address] Feb, [facility] [place] [facility] [address] [id number] [place] [address] Feb, [facility] [place] [facility] [address] [id number] [place] [address] Feb, [facility] [place] [facility] [address] [facility] [id number] [place] [address] Feb, [facility] [place] [facility] [address] [facility] [id number] [place] [address] Feb, [facility] [place] [facility] [address] [facility] [id number] [place] [address] Feb, [facility] [place] [facility] [address] [facility] [id number][place] [address] Feb, [facility] [address] [facility] [id number] [place] [id number] Jan, [facility] [place] [address] [facility] [id number] [place] [id number] Dec, [facility] [address] [id number] [place] [id number] Dec, [facility] [place] [facility] [address] [facility] [id number], [place] [address] Nov, [facility] [place] [facility] [address] [facility] [id number] [place] [address] Nov, [facility] [place] [facility] [address] [facility] [id number], [place] [address] Oct, [facility] [place] [facility] [address] [facility] [id number] [place] [address] Jul, [facility] [place] [facility] [address] [id number], [place] [address] 13 Jul, 2011 [facility] [id number], [place] [address] May, [facility] [id number], [place] [address] May, [facility] [id number], [place] [address] Nov, [facility] [address] [facility] [id number], [place] [address] 30 Mar, 2010 [facility] [id number], [place] [address] Dec, [facility] [id number], [place] [address] Nov, [facility] [id number], [place] [address] Aug, [facility] [id number], [place] [address] Apr, [facility] [id number], [place] [address] Apr, [facility] [address] [id number], [place] [address] Mar, [facility] [address] [id number], [place] [address] Feb, [facility] [address] [id number], [place] [address] September, [facility] [id number], [place] [address] Jun, [facility] [address] [id number], [place] [address] Mar, IMMUNIZATIONS No Known Immunizations SOCIAL HISTORY Never Assessed REASON FOR VISIT Weight management, C/O dizziness, lightheaded, poor depth perception, and falling frequently, hotflash sweating, C/O dysuria, C/O spot on back that is painful, Ester PLAN OF CARE Activity Details Follow Up 4 Weeks Reason:lab VITAL SIGNS Height 62 in 2017-12-07 Weight 219.1 lbs 2017-12-07 Temperature 98.6 degrees Fahrenheit 2017-12-07 Heart Rate 88 bpm 2017-12-07 Respiratory Rate 20 2017-12-07 Oximetry on room air:96 % 2017-12-07 BMI 40.07 kg/m2 2017-12-07 Blood pressure systolic 118 mmHg 2017-12-07 Blood pressure diastolic 60 mmHg 2017-12-07 MEDICATIONS Medication Instructions Dosage Frequency Start Date End Date Duration Status Contrave 8-90 MG Orally Twice a day 2 tablets 12h Jun, 30 days Active Levothyroxine Sodium 25 MCG Orally Once a day 1 tablet on an empty stomach in the morning 24h 90 days Active Doxepin HCl 10 mg Orally Once at bedtime for sleep 1 capsule at bedtime September, 30 days Active Fluocinolone Acetonide 0.01 % Externally twice a day until gone 1 application to affected area 30 Active Losartan Potassium-HCTZ 50-12.5 MG Orally Once a day 1 tablet 24h 90 Active Estradiol 1 MG Orally Once a day 1 tablet 24h Active Cymbalta 60 mg Orally Once a day 2 capsule 24h 30 days Active Loratadine 10 mg Orally 2 times a day 1 tablet 12h September, 90 days Active Sumatriptan 50 mg by oral route One on the one set of migraine 1 tablet Active Creon 42742 UNIT Orally 3 times a day 1 capsule before meals 8h Nov, 30 days Active Atovaquone 750 MG/5ML 1 tsp Not-Taking Lamotrigine 200 mg Orally Once a day 1 tablet 24h 30 days Active Gabapentin 300 MG Orally 3 times a day 1 tablet 8h 90 days Active Carafate 1 GM Orally 4 times a day 1 tablet on an empty stomach 6h 90 Active Fish Oil 300 MG Orally Once a day 1 capsule 24h Active Oxygen 2 L/NC Active Prednisone 10 mg by oral route 2 tabs in the morning and 1 in the evening 1 tablet Active Tizanidine HCl 2 MG Orally 2 times a day 1 tablet as needed 12h Feb, 90 days Active Atorvastatin Calcium 20 MG Orally Once a day 1 tablet 24h 90 Active Combivent Respimat 20-100 MCG/ACT Inhalation Four times a day 1 puff 6h 30 Active Dicyclomine HCl 20 mg 1 tablet Four times a day Orally 30 days 30 Active RESULTS No Results PROCEDURES Procedure Date Ordered Result Body Site URINALYSIS, AUTO, W/O SCOPE December 07, 2017 LAB NOT BILLED BY [facility] December 07, 2017 INSTRUCTIONS MEDICATIONS ADMINISTERED No Known Medications [...] hernia Hospitalization History Went by ambulance to [place] as unresponsive 05/2015 Hospitalization History [place] sent her to [facility] for a psych hold 05/2015
--- OUTSIDE RECORDS SUMMARY | 2018-03-15 10:45 | XMS REPORT ---
Author Author STEFANIE NUÑEZ Organization [facility] Address [address] [place] [address] Care Team Providers Care Integrated Campaign Manager Name Role Phone STEFANIE NUÑEZ Unavailable PROBLEMS Type Condition ICD9-CM Code ZWV82-AG Code Onset Dates Condition Status SNOMED Code Problem Psoriasis L40.9 Active 3806152 Problem Relationship problem with family member Z63.8 Active 207335432 Problem Essential hypertension I10 Active 43608188 Problem Anxiety F41.9 Active 59791588 Problem Visual disturbance H53.9 Active 37533288 Problem Rheumatoid arthritis involving multiple sites with positive rheumatoid factor M05.79 Active 272822000 Problem Bilateral low back pain with sciatica, sciatica laterality unspecified M54.40 Active 116469038 Problem Hypokalemia E87.6 Active 01601547 Problem Lumbago with sciatica, left side M54.42 Active 548574860 Problem Other chronic pain G89.29 Active 47007229 Problem 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 Active 112059984 Problem Blindness of right eye H54.40 Active 748076053 Problem Posttraumatic stress disorder F43.10 Active 02473614 Problem Overdose T50.901A Active 48738743 Problem Bipolar disorder F31.9 Active 03988097 Problem Borderline personality disorder F60.3 Active 29992170 Problem Obstructive sleep apnea G47.33 Active 99086399 Problem Acquired hypothyroidism E03.9 Active 104714053 Problem Pelvic pain R10.2 Active 92327680 Problem Chronic pain G89.29 Active 32366820 Problem Gastro-esophageal reflux disease without esophagitis K21.9 Active 953300517 Problem Anemia due to other cause, not classified D64.89 Active 488800990 Problem Social anxiety disorder F40.10 Active 99993361 Problem Morbid obesity, unspecified obesity type E66.01 Active 467040824 ALLERGIES Substance Reaction Event Type Date Status [...] Nov, Active ENCOUNTERS Encounter Location Date Diagnosis [place] [id number] [place] [address] 28763- 2872 Feb, [place] [id number] [place] [address] 28874- 5456 Feb, [place] [id number] [place] [address] 26048- 6594 Feb, [place] [id number] [place] [address] 91624- 1188 Jan, [place] [id number] [place] [address] 27325- 8814 Dec, Bipolar disorder F31.9 ; Posttraumatic stress disorder F43.10 and Borderline personality disorder F60.3 [place] [id number] [place] [address] 24953- 4876 Dec, 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 ; Anemia due to other cause, not classified D64.89 ; Rheumatoid arthritis involving multiple sites with positive rheumatoid factor M05.79 ; 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 ; Dysuria R30.0 ; Urinary tract infection without hematuria, site unspecified N39.0 and Blindness of right eye H54.40 [place] [address] [address] 84[address] Dec, [place] [id number] [place] [address] 50403- 6984 Dec, [address] [id number] [id number] Dec, Dental examination Z01.20 [place] [id number] [place] [address] 37453- 8358 Nov, Bipolar disorder F31.9 ; Posttraumatic stress disorder F43.10 and Borderline personality disorder F60.3 [place] [address] 69042- 1376 Nov, Rheumatoid arthritis involving multiple sites with positive rheumatoid factor M05.79 ; Dysuria R30.0 and Blindness of right eye H54.40 [place] [address] 02090- 5633 Nov, Bipolar disorder F31.9 ; Posttraumatic stress disorder F43.10 ; Social anxiety disorder F40.10 and Relationship problem with family member Z63.8 [place] [address] 60448- 6984 Nov, [place] [address] 08369- 8587 Nov, [place] [address] 80546- 2381 Nov, 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 ; Adverse effect of antineoplastic and immunosuppressive drugs, initial encounter T45.1X5A ; Anemia , unspecified D64.9 and BMI 40.0-44.9, adult Z68.41 [place] [id number] [place] [address] 59798- 3283 Nov, Anemia due to other cause, not classified D64.89 [place] [address] 18134- 8406 Oct, Adverse effect of drug, initial encounter T50.905A and Acute anemia D64.9 [place] [address] 71339- 5589 Oct, Anemia due to other cause, not classified D64.89 ; Dysuria R30.0 and Urinary tract infection without hematuria, site unspecified N39.0 [place] [address] 38617- 3178 Oct, [facility] [id number] [address] 0707 Oct, [facility] [address] [place] [address] 46391- 6063 Oct, 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 [place] [address] [id number] [id number] Oct, [facility] [address] [place] [address] 27327- 9297 Oct, [facility] [address] [place] [address] 88758- 9086 Oct, [facility] [address] [place] [address] 96022- 6388 Oct, Bipolar disorder F31.9 ; Posttraumatic stress disorder F43.10 and Borderline personality disorder F60.3 [facility] [address] [place] [address] 56515- 5603 Oct, Rheumatoid arthritis involving multiple sites with positive rheumatoid factor M05.79 ; 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 and Anxiety F41.9 [facility] [address] [place] [address] 50713- 9855 Oct, [facility] [address] [place] [address] 45414- 2498 September, 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 [facility] [address] [place] [address] 27504- 4218 September, Bipolar disorder F31.9 ; Posttraumatic stress disorder F43.10 and Borderline personality disorder F60.3 [facility] [address] [place] [address] 89222- 4952 Aug, BMI 40.0-44.9, adult Z68.41 ; Bipolar disorder F31.9 ; Posttraumatic stress disorder F43.10 and Social anxiety disorder F40.10 [facility] [address] [place] [address] 63978- 4459 Aug, Bipolar disorder F31.9 ; Posttraumatic stress disorder F43.10 and Borderline personality disorder F60.3 [facility] [id number] [place] [address] 84486- 3779 Aug, 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 [facility] [id number] [place] [address] 40502- 8206 Jul, Bipolar disorder F31.9 ; Posttraumatic stress disorder F43.10 and Borderline personality disorder F60.3 [facility] [id number] [place] [address] 13571- 9405 Jul, [facility] [address] 03185- 2119 Jun, Bipolar disorder F31.9 ; Posttraumatic stress disorder F43.10 and Borderline personality disorder F60.3 [place] [address] 59525- 1849 Jun, Blindness of right eye H54.40 and Acquired hypothyroidism E03.9 [facility] [id number] [place] [address] 01628- 8654 Jun, [facility] [id number] [place] [address] 42287- 0792 May, Posttraumatic stress disorder F43.10 ; Social anxiety disorder F40.10 and Bipolar disorder F31.9 [facility] [id number] [place] [address] 95326- 7356 May, Bipolar disorder F31.9 ; Posttraumatic stress disorder F43.10 and Borderline personality disorder F60.3 [facility] [id number] [place] [address] 78501- 5191 May, [facility] [id number] [place] [address] 80912- 0703 May, [facility] [id number] [place] [address] 34680- 6536 Apr, Bipolar disorder F31.9 ; Posttraumatic stress disorder F43.10 and Borderline personality disorder F60.3 [facility] [address] [id number] [id number] Apr, [facility] [address] [place] [address] 08998- 9098 Apr, [facility] [address] [place] [address] 77932- 5961 Mar, Hydradenitis L73.2 [facility] [id number] [place] [address] 80359- 9293 15 Mar, 2017 Lumbago with sciatica, left side M54.42 ; Other chronic pain G89.29 ; Morbid obesity, unspecified obesity type E66.01 ; Hydradenitis L73.2 and BMI 40.0-44.9, adult Z68.41 [facility] [address] [place] [address] 09458- 5659 Mar, Bipolar disorder F31.9 ; Posttraumatic stress disorder F43.10 and Borderline personality disorder F60.3 [facility] [address] [place] [address] 62459- 9486 Mar, Social anxiety disorder F40.10 ; Bipolar disorder F31.9 and Relationship problem with family member Z63.8 [facility] [address] [place] [address] 85459- 4801 Mar, [place] [address] [id number] [id number] Mar, Dental examination Z01.20 [facility] [address] [address]- 7416 Mar, [facility] [address] [place] [address] 03461- 9351 Feb, Bipolar disorder F31.9 ; Posttraumatic stress disorder F43.10 and Borderline personality disorder F60.3 [facility] [address] [id number] [address] Feb, [facility] [address] [address] Jan, Bipolar disorder F31.9 ; Posttraumatic stress disorder F43.10 and Borderline personality disorder F60.3 [facility] [address] [id number] [id number] Jan, [facility] [address] [address]- 7908 Jan, [facility] [address] [id number] Jan, [facility] [id number] [place] [address] 95410- 5371 Dec, Bipolar disorder F31.9 ; Posttraumatic stress disorder F43.10 and Borderline personality disorder F60.3 [facility] [address] [place] [address] 14733- 0579 Dec, [facility] [address] [place] [address] 79415- 1355 Dec, [facility] [address] [place] [id number] Dec, [facility] [address] [place] [address] 26736- 3439 Nov, Bipolar 1 disorder F31.9 ; Posttraumatic stress disorder F43.10 and Social anxiety disorder F40.10 [facility] [address] [address]- 6143 Nov, Bipolar disorder F31.9 ; Posttraumatic stress disorder F43.10 and Borderline personality disorder F60.3 [facility] [address] [place] [address] 48369- 2997 Nov, Morbid obesity, unspecified obesity type E66.01 [facility] [address] [address]- 5847 Nov, [facility] [address] [id number] [id number] Oct, Encounter for dental examination and cleaning without abnormal findings Z01.20 [place] [id number] [place] [address] 99872- 3770 15 Oct, 2016 Morbid obesity, unspecified obesity type E66.01 and Acute seasonal allergic rhinitis due to pollen J30.1 [place] [address] 19499- 1379 08 Oct, 2016 Bipolar disorder F31.9 ; Posttraumatic stress disorder F43.10 and Borderline personality disorder F60.3 [place] [address] 88741- 0445 September, Morbid obesity, unspecified obesity type E66.01 and Psoriasis L40.9 [place] [address] 50695- 5800 September, Bipolar disorder F31.9 ; Posttraumatic stress disorder F43.10 and Borderline personality disorder F60.3 [place] [address] 67836- 9028 September, Chronic pain G89.29 [place] [id number] [place] [address] 17414- 8159 Aug, Other acute nonsuppurative otitis media of right ear H65.191 and Morbid obesity, unspecified obesity type E66.01 [place] [id number] [place] [address] 58444- 3033 Aug, Bipolar 1 disorder F31.9 ; Posttraumatic stress disorder F43.10 and Social anxiety disorder F40.10 [place] [id number] [place] [address] 17072- 5957 Aug, Bipolar disorder F31.9 ; Posttraumatic stress disorder F43.10 and Borderline personality disorder F60.3 [place] [id number] [place] [address] 65373- 0361 Jul, Morbid obesity due to excess calories E66.01 ; Gastro- esophageal reflux disease without esophagitis K21.9 and Chronic pain G89.29 [place] [address] [address]- 9878 15 Jul, 2016 Morbid obesity due to excess calories E66.01 [facility] [address] [place] [address] 60240- 4496 06 Jul, 2016 [facility] [address] [place] [address] 22171- 8356 Jul, [facility] [id number] [place] [address] 54915- 4624 Jul, Morbid obesity due to excess calories E66.01 [facility] [address] [place] [address] 85326- 3853 Jul, Bipolar disorder F31.9 ; Posttraumatic stress disorder F43.10 and Borderline personality disorder F60.3 [facility] [address] [place] [address] 83460- 4199 16 Jun, 2016 [facility] [address] [place] [address] 75783- 7834 Jun, Morbid obesity due to excess calories E66.01 [facility] [address] [place] [address] 73392- 6872 Jun, [facility] [address] [place] [address] 02542- 7094 09 Jun, 2016 Morbid obesity, unspecified obesity type E66.01 [facility] [address] [place] [address] 61033- 5122 Jun, Bipolar disorder F31.9 ; Posttraumatic stress disorder F43.10 and Borderline personality disorder F60.3 [facility] [id number] [place] [address] 18858- 6284 Jun, [facility] [address] [address]- 7069 Jun, [facility] [address] [place] [address] 66912- 6107 Jun, Acquired hypothyroidism E03.9 and Morbid obesity due to excess calories E66.01 [facility] [address] [place] [address] 41483- 9773 May, Bipolar disorder F31.9 ; Posttraumatic stress disorder F43.10 and Borderline personality disorder F60.3 [facility] [address] [place] [address] 69784- 8727 Apr, Bipolar 1 disorder F31.9 ; Posttraumatic stress disorder F43.10 and Social anxiety disorder F40.[address] [id number] [address] 12 Apr, 2016 Encounter for dental examination Z01.20 [facility] [address] [place] [address] 63599- 3327 08 Apr, 2016 [facility] [id number] [place] [address] 63861- 0947 08 Apr, 2016 Acquired hypothyroidism E03.9 [facility] [address] [place] [address] 02893- 8938 07 Apr, 2016 Acquired hypothyroidism E03.9 [facility] [id number] [place] [address] 44310- 7640 07 Apr, 2016 Bipolar disorder F31.9 ; Posttraumatic stress disorder F43.10 and Borderline personality disorder F60.3 [facility] [address] [place] [address] 73876- 3188 Apr, Acquired hypothyroidism E03.[address] [id number] [id number] 23 Mar, 2016 Encounter for dental examination and cleaning without abnormal findings Z01.20 [facility] [address] [place] [address] 43718- 2626 08 Mar, 2016 [facility] [address] [place] [address] 70220- 5544 08 Mar, 2016 Bipolar disorder F31.9 ; Posttraumatic stress disorder F43.10 and Borderline personality disorder F60.3 [facility] [address] [place] [address] 27082- 8335 Mar, Essential (primary) hypertension I10 [facility] [id number] [place] [address] 08012- 7985 Feb, [facility] [id number] [place] [address] 86538- 9975 Feb, [facility] [address] 15622- 3497 11 Feb, 2016 Pelvic pain R10.2 ; Lipid screening Z13.220 ; Fatigue, unspecified type R53.83 and Weight gain R63.5 [place] [id number] [place] [address] 61697- 9777 11 Feb, 2016 Bipolar disorder F31.9 ; Posttraumatic stress disorder F43.10 and Borderline personality disorder F60.3 [facility] [id number] [place] [address] 57678- 3262 07 Feb, 2016 [facility] [id number] [place] [address] 59634- 7554 05 Feb, 2016 [facility] [id number] [place] [address] 05895- 6369 30 Jan, 2016 Obstructive sleep apnea syndrome G47.33 [facility] [id number] [place] [address] 13950- 5113 26 Jan, [address] [id number] [id number] 19 Jan, 2016 Dental examination Z01.20 [facility] [id number] [place] [address] 63281- 7731 13 Jan, 2016 Bipolar 1 disorder F31.9 ; Posttraumatic stress disorder F43.10 and Social anxiety disorder F40.10 [facility] [address] [place] [address] 14563- 5244 13 Jan, 2016 Bipolar disorder F31.9 ; Posttraumatic stress disorder F43.10 and Borderline personality disorder F60.3 [facility] [id number] [address]- 1546 Jan, Sciatica of left side M54.32 [facility] [address] [address] 2546 Jan, [facility] [address] [address] 2546 Dec, [facility] [address] [place] [address] 12095 2546 Dec, [facility] [address] [place] [address] 46684- 1793 Dec, Bipolar disorder F31.9 ; Posttraumatic stress disorder F43.10 and Borderline personality disorder F60.3 [facility] [address] [address]- 2016 Nov, [facility] [address] [place] [address] 40227 2542 Nov, Insomnia, unspecified type G47.00 [facility] [address] [place] [address] 24000- 0421 Nov, Bipolar disorder F31.9 ; Posttraumatic stress disorder F43.10 and Borderline personality disorder F60.3 [facility] [address] [address]- 3156 Nov, [facility] [address] [address] 2546 Nov, [facility] [address] [address] 2546 Oct, Bipolar disorder F31.9 ; Posttraumatic stress disorder F43.10 and Borderline personality disorder F60.3 [facility] [address] [address]- 7096 Oct, [facility] [address] [place] [address] 81294- 1249 Oct, Essential (primary) hypertension I10 [facility] [address] [place] [address] 06960- 1584 September, Bipolar 1 disorder F31.9 ; Posttraumatic stress disorder F43.10 and Social anxiety disorder F40.10 [facility] [address] [place] [address] 97181- 8385 September, Bipolar disorder F31.9 ; Posttraumatic stress disorder F43.10 and Borderline personality disorder F60.[address] [id number] [address] September, Encounter for dental examination and cleaning without abnormal findings Z01.20 [facility] [id number] [place] [address] 28167- 2691 September, [facility] [id number] [place] [address] 13556- 9908 September, [facility] [id number] [place] [address] 32572- 4361 Aug, [facility] [id number] [place] [address] 27279- 3453 Aug, Bipolar disorder F31.9 ; Posttraumatic stress disorder F43.10 and Borderline personality disorder F60.3 [facility] [id number] [place] [address] 38222- 1952 Aug, [facility] [id number] [place] [address] 84594- 0660 Aug, [facility] [address] [place] [address] 44056- 5504 Aug, [facility] [id number] [place] [address] [id number] Jul, Acute nasopharyngitis [common cold] J00 and Other viral agents as the cause of diseases classified elsewhere B97.89 [facility] [address] [place] [address] 34890- 4118 Jul, Chronic pain G89.29 and Allergic rhinitis J30.9 [facility] [address] [address] 2547 24 Jul, 2015 Bipolar 1 disorder F31.9 ; Posttraumatic stress disorder F43.10 and Social anxiety disorder F40.10 [facility] [address] [address] 2546 16 Jul, 2015 Bipolar 1 disorder F31.9 [facility] [id number] [place] [address] 77646 2546 16 Jul, 2015 Bipolar disorder F31.9 ; Posttraumatic stress disorder F43.10 and Borderline personality disorder F60.3 [facility] [id number] [place] [address] 68353- 8546 14 Jul, 2015 [facility] [id number] [place] [address] 85678- 5545 14 Jul, 2015 [facility] [id number] [place] [address] 36209 2544 11 Jul, 2015 [facility] [address] [place] [address] 51728 2545 10 Jul, 2015 Anxiety F41.9 [facility] [id number] [place] [address] 19958 2548 10 Jul, 2015 Chronic pain G89.29 and Encounter for therapeutic drug level monitoring Z51.81 [facility] [address] [place] [address] 33730 254 09 Jul, 2015 Chronic pain G89.29 and Encounter for therapeutic drug level monitoring Z51.81 [facility] [address] [address] 2546 08 Jul, 2015 [facility] [id number] [place] [address] 30025 2546 Jun, [facility] [address] [place] [address] 76035- 2226 Jun, [facility] [id number] [place] [address] 57913- 6464 15 Jun, 2015 [facility] [id number] [place] [address] 45070- 6494 15 Jun, 2015 [facility] [id number] [place] [address] 86395- 3601 Jun, High risk medication use V58.69 [facility] [id number] [place] [address] 62567- 8126 Jun, [facility] [id number] [place] [address] 16304- 0579 Jun, Bipolar 1 disorder F31.9 ; Overdose T50.901A and Chronic pain G89.29 [facility] [id number] [place] [address] 98945- 1926 Jun, Bipolar disorder F31.9 ; Posttraumatic stress disorder F43.10 and Borderline personality disorder F60.3 [facility] [id number] [place] [address] 47967- 3090 08 Jun, 2015 [facility] [id number] [place] [address] 46968- 7824 Jun, [facility] [id number] [place] [address] 77322- 9402 Jun, Keloid L91.0 [facility] [id number] [place] [address] 08739- 2391 Jun, [facility] [id number] [place] [address] 32584- 2541 May, [facility] [id number] [place] [address] 44968- 2279 May, [facility] [id number] [place] [address] 85812- 2608 May, Pelvic pain R10.2 [facility] [id number] [place] [address] 88298- 9695 May, [facility] [address] [address] 8293 May, Pain of left thumb M79.645 ; Incisional pain R20.8 ; Pelvic pain R10.2 and Essential hypertension I10 [facility] [address] [address] 7280 May, [facility] [id number] [place] [address] 78886- 5664 May, [address] [id number] [id number] May, Dental examination Z01.20 and Necrosis of pulp K04.1 [facility] [id number] [place] [address] 67930- 1616 Apr, [facility] [id number] [place] [address] 66735- 6647 Apr, [facility] [id number] [place] [address] 01293- 5134 Apr, [facility] [id number] [place] [address] 51934- 4297 Apr, [facility] [id number] [place] [address] 26167- 4491 Apr, [facility] [id number] [place] [address] 22619- 1288 Apr, [facility] [address] [address]- 0772 Apr, [facility] [id number] [place] [address] 12954- 8303 Apr, [facility] [id number] [place] [address] 52551- 1498 Mar, [facility] [address] [address]- 2944 Mar, [facility] [address] [id number] [address]- 5848 Mar, [facility] [address] [address]- 5421 Mar, [facility] [address] [id number] [address] 3540 Feb, [facility] [address] [address] 1702 Feb, [facility] [address] [facility] [id number] [address] 6402 Feb, [facility] [address] [address]- 6589 Feb, [facility] [address] [address]- 1147 Feb, [facility] [address] [address]- 3515 Feb, [facility] [address] [address]- 7344 Feb, [facility] [address] [address]- 0368 Feb, Dermatofibroma of left lower leg D23.72 [facility] [address] [address] 3555 Feb, Hematochezia 578.1 ; Low back pain M54.5 ; High risk medication use V58.69 ; Cervicalgia M54.2 and Anxiety F41.9 [facility] [address] [id number] [id number] Feb, Dental examination Z01.20 ; Pulpitis K04.0 and Dental caries, unspecified K02.9 [facility] [address] [id number] [id number] Feb, Dental examination Z01.20 [facility] [address] [place] [address] 0333 Jan, [facility] [address] [id number] [place] [address]- 9039 Jan, [facility] [address] [id number] [place] [address]- 2975 Jan, [facility] [address] [id number] [place] [address]- 1171 Jan, [facility] [address] [id number] [place] [address]- 6684 Dec, [facility] [address] [id number] [place] [address]- 4025 Dec, [facility] [address] [id number] [place] [address]- 2659 Dec, [facility] [address] [id number] [place] [address]- 5903 Dec, [facility] [address] [id number] [place] [address]- 3918 Dec, [facility] [address] [id number] [address]- 2961 Dec, [facility] [address] [id number] [address]- 4051 Dec, [facility] [address] [id number] [place] [address]- 7799 Dec, [facility] [address] [id number] [id number] Nov, Encounter for removal of sutures V58.32 [facility] [address] [id number] [place] [address]- 3157 Nov, [facility] [address] [id number] [place] [address]- 1186 Nov, [facility] [address] [id number] [place] [address]- 8270 Nov, [facility] [address] [id number] [address]- 7230 Nov, [facility] [address] [address]- 9640 Nov, [facility] [address] [address]- 2345 Nov, [facility] [address]100[place] [address]- 4713 Nov, [facility] [address] [address]- 6308 Nov, Dermatofibroma 216.9 [facility] [address]65[address] [address]- 1863 Nov, [facility] [address] [address]- 3161 Nov, [facility] [address]65100[place] [address]- 6571 Oct, [facility] [address] [id number] [address]- 9756 Oct, Hematochezia 578.1 ; Abscess 682.9 ; GERD (gastroesophageal reflux disease) 530.81 ; Visual disturbance of one eye 368.9 and High risk medication use V58.69 [facility] [address]65[address] [address]- 6540 Oct, [facility] [address]65[address] [address]- 6647 Oct, [facility] [address] [address]- 9114 Oct, [facility] [address] [address]- 4782 September, [facility] [address]65[address] [address]- 0029 September, [facility] [address] [id number] [place] [address]- 5714 September, [facility] [place] [facility] [address] [id number] [place] [address]- 2739 September, [facility] [place] [facility] [address] [id number] [place] [address]- 3468 September, [facility] [place] [facility] [address] [id number] [place] [address]- 0123 September, Colon cancer screening V76.51 [facility] [place] [facility] [address] [id number] [place] [address]- 2199 September, [facility] [place] [facility] [address] [id number] [place] [address]- 8792 Aug, [facility] [place] [facility] [address] [facility] [id number] [place] [address]- 5470 Aug, [facility] [place] [facility] [address] [id number] [place] [address]- 6959 Jul, [facility] [place] [facility] [address] [id number] [place] [address]- 2153 Jul, [facility] [place] [facility] [address] [facility] [id number] [place] [address]- 7784 Jul, [facility] [place] [facility] [address] [id number] [place] [address]- 0455 Jul, [facility] [place] [facility] [address] [id number] [place] [address]- 8745 Jun, [facility] [place] [facility] [address] [id number] [place] [address]- 1887 Jun, [facility] [place] [facility] [address] [id number] [place] [address]- 1444 Jun, [facility] [place] [facility] [address] [facility] [id number] [place] [address]- 1154 Jun, [facility] [place] [facility] [address] [facility] [id number] [place] [address]- 0812 Jun, [facility] [address] [id number] [place] [address]- 3786 Jun, [facility] [address] [id number] [place] [address]- 9135 May, [facility] [address] [id number] [place] [address]- 3531 May, [facility] [address] [id number] [place] [address]- 0074 May, [facility] [address] [id number] [place] [address]- 3225 May, [facility] [address] [id number] [place] [address]- 4976 May, [facility] [address] [id number] [place] [address]- 6544 May, [facility] [address] [id number] [place] [address]- 2449 May, [facility] [address] [id number] [place] [address]- 8640 May, [facility] [address] [id number] [place] [address]- 4423 Apr, [facility] [address] [id number] [place] [address]- 7872 Apr, [facility] [address] [id number] [place] [address]- 7668 Apr, [facility] [place] [facility] [address] [id number] [place] [address]- 7524 Apr, [facility] [address] [id number] [place] [address]- 6694 Apr, [facility] [address] [id number] [place] 0784 Apr, [facility] [place] [facility] [address] [id number] [place] [address]- 0915 Apr, [facility] [place] [facility] [address] [id number] [place] [address]- 5810 Apr, [facility] [place] [facility] [address] [id number] [place] [address]- 1362 Mar, [facility] [place] [facility] [address] [id number] [place] [address]- 3775 Mar, [facility] [place] [facility] [address] [id number] [place] [address]- 4621 Mar, [facility] [place] [facility] [address] [id number] [place] [address]- 7338 Mar, [facility] [place] [facility] [address] [id number] [place] [address]- 7816 Mar, [facility] [place] [facility] [address] [id number] [place] [address]- 3003 Mar, [facility] [place] [facility] [address] [id number] [place] [address]- 7258 Mar, [facility] [place] [facility] [address] [id number] [place] [address]- 9209 Mar, [facility] [place] [facility] [address] [id number] [place] [address]- 5657 Mar, [facility] [place] [facility] [address] [id number] [place] [address]- 4258 Mar, [facility] [place] [facility] [address] [id number] [place] [address]- 2575 Feb, [facility] [place] [facility] [address] [id number] [place] [address]- 0132 Feb, [facility] [place] [facility] [address] [id number] [place] [address]- 5948 Jan, [facility] [place] [facility] [address] [id number] [place] [address]- 9795 Jan, [facility] [place] [facility] [address] [id number] [place] [address]- 5308 Jan, [facility] [place] [facility] [address] [id number] [place] [address]- 0282 Jan, [facility] [place] [facility] [address] [id number] [place] [address]- 1209 Dec, [facility] [place] [facility] [address] [id number] [place] [address]- 6748 Dec, [facility] [place] [facility] [address] [id number] [place] [address]- 7748 Dec, [facility] [place] [facility] [address] [id number] [place] [address]- 3559 Dec, [facility] [place] [facility] [address] [id number] [place] [address]- 8662 Dec, [facility] [place] [facility] [address] [id number] [place] [address]- 4771 Dec, [facility] [place] [facility] [address] [id number] [place] [address]- 0382 Nov, [facility] [place] [facility] [address] [id number] [place] [address]- 9985 Nov, [facility] [place] [facility] [address] [id number] [place] [address]- 0537 Oct, [facility] [place] [facility] [address] [id number] [place] [address]- 5460 Oct, [facility] [place] [facility] [address] [id number] [place] [address]- 0650 Oct, [facility] [place] [facility] [address] [id number] [place] [address]- 7349 Oct, [facility] [place] [facility] [address] [id number] [place] [address]- 3176 September, [facility] [place] [facility] [address] [id number] [place] [address]- 2035 September, [facility] [place] [facility] [address] [id number] [place] 9504 September, [facility] [place] [facility] [address] [id number] [place] 6992 September, [facility] [place] [facility] [address] [id number] [place] [address]- 5503 September, [facility] [place] [facility] [address] [id number] [place] [address]- 2774 September, [facility] [place] [facility] [address] [id number] [place] 0350 September, [facility] [place] [facility] [address] [id number] [place] 2786 September, [facility] [place] [facility] [address] [id number] [place] [address]- 9959 Aug, [facility] [place] [facility] [address] [id number] [place] [address]- 9117 Aug, [facility] [place] [facility] [address] [id number] [place] [address]- 7111 Aug, [facility] [place] [facility] [address] [id number] [place] [address]- 6519 Aug, [facility] [place] [facility] [address] [id number] [place] [address]- 6458 Aug, [facility] [place] [facility] [address] [id number] [place] [address]- 2094 Aug, [facility] [place] [facility] [address] [id number] [place] [address]- 9031 Jul, [facility] [place] [facility] [address] [id number] [place] [address]- 9191 Jul, [facility] [place] [facility] [address] [id number] [place] [address]- 3941 Jul, [facility] [place] [facility] [address] [id number] [place] [address]- 2016 Jul, [facility] [place] [facility] [address] [id number] [place] [address]- 7276 Jun, [facility] [place] [facility] [address] [facility] [id number] [place] [address]- 3946 Jun, [facility] [place] [facility] [address] [id number] [place] [address]- 3364 Jun, [facility] [place] [facility] [address] [id number] [place] [address]- 9300 Jun, [facility] [place] [facility] [address] [id number] [place] [address]- 3054 Jun, [facility] [place] [facility] [address] [id number] [place] [address]- 3017 Jun, [facility] [place] [facility] [address] [id number] [place] [address]- 2234 May, [facility] [place] [facility] [address] [id number] [place] [address]- 8551 May, [facility] [place] [facility] [address] [id number] [place] [address]- 2353 May, [facility] [place] [facility] [address] [id number] [place] [address]- 0128 May, [facility] [place] [facility] [address] [id number] [place] [address]- 0782 May, [facility] [place] [facility] [address] [id number] [place] [address]- 1832 May, [facility] [place] [facility] [address] [id number] [place] [address]- 9467 May, [facility] [place] [facility] [address] [id number] [place] [address]- 6711 May, [facility] [place] [facility] [address] [id number] [place] [address]- 2023 16 Apr, 2013 [facility] [address] [place] [id number] 16 Apr, 2013 [facility] [address] [id number] [place] [address]- 0771 16 Apr, 2013 [facility] [address] [id number] [place] [address]- 3283 16 Apr, 2013 [facility] [address] [id number] [place] [address]- 9694 13 Apr, 2013 [facility] [address] [id number] [place] [address]- 3741 Apr, [facility] [address] [id number] [place] [address]- 4348 05 Apr, 2013 [facility] [address] [id number] [place] [address]- 2638 05 Apr, 2013 [facility] [address] [id number] [place] [address]- 8778 04 Apr, 2013 [facility] [address] [id number] [place] [address]- 6226 Mar, [facility] [address] [id number] [place] [address]- 0807 Mar, [facility] [address] [id number] [place] [address]- 6250 Mar, [facility] [address] [id number] [place] [address]- 8419 Mar, [facility] [address] [id number] [place] [address]- 5903 Mar, [facility] [address] [id number] [place] [address]- 9700 Feb, [facility] [address] [id number] [place] [address]- 6963 Feb, [facility] [place] [facility] [address] [id number] [place] [address]- 5456 14 Feb, 2013 [facility] [address] [id number] [place] [address]- 3066 14 Feb, 2013 [facility] [address] [id number] [place] [address]- 7356 Jan, [facility] [place] [facility] [address] [id number] [place] [address]- 5391 24 Jan, 2013 [facility] [address] [id number] [place] [address]- 6248 Jan, [facility] [address] [id number] [place] [address]- 4046 Dec, [facility] [address] [id number] [place] [address]- 2731 Dec, [facility] [address] [id number] [place] [address]- 1180 Dec, [facility] [address] [id number] [place] [id number] Nov, [facility] [address] [facility] [address] [id number] [place] [id number] Oct, [facility] [address] [id number] [place] [address]- 9806 Oct, [facility] [address] [id number] [place] [address]- 3816 September, [facility] [place] [facility] [address] [id number] [place] [address]- 2546 September, [facility] [place] [facility] [address] [id number] [place] [address]- 2846 September, [facility] [place] [facility] [address] [id number] [place] [address]- 2546 September, [facility] [place] [facility] [address] [id number] [place] [address] September, [facility] [place] [facility] [address] [id number] [place] [address] Jul, [facility] [place] [facility] [address] [id number] [place] [address] Jul, [facility] [place] [facility] [address] [id number] [place] [address] Jul, [facility] [place] [facility] [address] [id number] [place] [address] Jul, [facility] [address] [id number] [place] [address] Jun, [facility] [place] [facility] [address] [id number] [place] [address] Jun, [facility] [address] [id number] [place] [address] Jun, [facility] [address] [id number] [place] [address] Jun, [facility] [address] [id number] [place] [address] May, [facility] [address] [id number] [place] [address] Mar, [facility] [place] [facility] [address] [id number] [place] [address] Mar, [facility] [place] [facility] [address] [id number] [place] [address] Mar, [facility] [place] [facility] [address] [id number] [place] [address] Mar, [facility] [place] [facility] [address] [id number] [place] [address] Mar, [facility] [place] [facility] [address] [id number] [place] [address] Mar, [facility] [place] [facility] [address] [id number] [address] Mar, [facility] [place] [facility] [address] [facility] [id number] [address] Mar, [facility] [place] [facility] [address] [facility] [id number] [place] [address] Feb, [facility] [place] [facility] [address] [facility] [id number] [place] [address] Feb, [facility] [place] [facility] [address] [facility] [id number] [address] Feb, [facility] [place] [facility] [address] [facility] [id number] [address] Feb, [facility] [place] [facility] [address] [facility] [id number] [place] [address] Feb, [facility] [id number] [address] Feb, [facility] [place] [facility] [address] [facility] [id number] [place] [address] Feb, [facility] [id number] [place] [id number] Jan, [facility] [id number] [place] [id number] Dec, [facility] [id number] [id number] Dec, [facility] [place] [facility] [address] [facility] [id number] [place] [address] Nov, [facility] [place] [facility] [address] [facility] [id number] [place] [address] Nov, [facility] [place] [facility] [address] [facility] [id number] [place] [address] Oct, [facility] [place] [facility] [address] [facility] [id number] [place] [address] Jul, [facility] [place] [facility] [address] [facility] [id number] [place] [address] Jul, [facility] [id number] [address] May, [facility] [id number] [place] [address] May, [facility] [id number] [place] [address]- 164[address] Nov, [facility] [id number] [place] [address] Mar, [facility] [id number] [place] [address]- [address]60 Dec, [facility] [id number] [place] [address]- [address] Nov, [facility] [id number] [place] [address]- [address] Aug, [facility] [address] [id number] [address] Apr, [facility] [id number] [place] [address] Apr, [facility] [id number] [address] Mar, [facility] [id number] [address] Feb, [facility] [id number] [address] September, [facility] [id number] [place] [address]- [address] Jun, [facility] [id number] [address] Mar, IMMUNIZATIONS No Known Immunizations SOCIAL HISTORY Never Assessed REASON FOR VISIT Transfusion f/u WB-MA, Needs post transfusion CBC collected today, PT says she has shortness of breath, PT says both of her hands constantly shake PLAN OF CARE Activity Details Follow Up 2 Weeks Reason:with PCP VITAL SIGNS Height 62 in 2017-11-17 Weight 222 lbs 2017-11-17 Temperature 97.4 degrees Fahrenheit 2017-11-17 Heart Rate 86 bpm 2017-11-17 Respiratory Rate 20 2017-11-17 BMI 40.60 kg/m2 2017-11-17 Blood pressure systolic 116 mmHg 2017-11-17 Blood pressure diastolic 76 mmHg 2017-11-17 MEDICATIONS Medication Instructions Dosage Frequency Start Date End Date Duration Status Tizanidine HCl 2 MG Orally 2 times a day 1 tablet as needed 12h Feb, 90 days Active Fluocinolone Acetonide 0.01 % Externally twice a day until gone 1 application to affected area 30 Active Atorvastatin Calcium 20 MG Orally Once a day 1 tablet 24h 90 Active Fish Oil 300 MG Orally Once a day 1 capsule 24h Active Prednisone 10 mg by oral route 2 tabs in the morning and 1 in the evening 1 tablet Active Dicyclomine HCl 20 mg 1 tablet Four times a day Orally 30 days 30 Active Losartan Potassium-HCTZ 50-12.5 MG Orally Once a day 1 tablet 24h 90 Active Estradiol 1 MG Orally Once a day 1 tablet 24h Active Levothyroxine Sodium 25 MCG Orally Once a day 1 tablet on an empty stomach in the morning 24h 90 days Active Carafate 1 GM Orally 4 times a day 1 tablet on an empty stomach 6h 90 Active Lamotrigine 200 mg Orally Once a day 1 tablet 24h Active Cymbalta 60 mg Orally Once a day 2 capsule 24h 30 days Active Loratadine 10 mg Orally 2 times a day 1 tablet 12h September, 90 days Active Atovaquone 750 MG/5ML 1 tsp Active Combivent Respimat 20-100 MCG/ACT Inhalation Four times a day 1 puff 6h 30 Active Sumatriptan 50 mg by oral route One on the one set of migraine 1 tablet Active Creon [id number] UNIT Orally 3 times a day 1 capsule before meals 8h Nov, 30 days Active Doxepin HCl 10 mg Orally Once at bedtime for sleep 1 capsule at bedtime September, Active Oxygen 2 L/NC Active Contrave 8-90 MG Orally Twice a day 2 tablets 12h Jun, 30 days Active Gabapentin 300 MG Orally 3 times a day 1 tablet 8h 90 days Active RESULTS No Results PROCEDURES No [...] hernia Hospitalization History Went by ambulance to [place] as unresponsive 05/2015 Hospitalization History [place] sent her to [facility] for a psych hold 05/2015
--- OUTSIDE RECORDS SUMMARY | 2018-03-15 10:46 | XMS REPORT ---
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 Name Role Phone SAMI SUAREZ Unavailable PROBLEMS Type Condition ICD9-CM Code KML03-BB Code Onset Dates Condition Status SNOMED Code Problem Psoriasis L40.9 Active 1801882 Problem Relationship problem with family member Z63.8 Active 097460589 Problem Essential hypertension I10 Active 41983991 Problem Anxiety F41.9 Active 74330034 Problem Visual disturbance H53.9 Active 87301202 Problem Rheumatoid arthritis involving multiple sites with positive rheumatoid factor M05.79 Active 372122152 Problem Bilateral low back pain with sciatica, sciatica laterality unspecified M54.40 Active 557400608 Problem Hypokalemia E87.6 Active 18537287 Problem Lumbago with sciatica, left side M54.42 Active 535840983 Problem Other chronic pain G89.29 Active 01189919 Problem 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 Active 460577300 Problem Blindness of right eye H54.40 Active 208503422 Problem Posttraumatic stress disorder F43.10 Active 68935346 Problem Overdose T50.901A Active 55199554 Problem Bipolar disorder F31.9 Active 75798326 Problem Borderline personality disorder F60.3 Active 79841454 Problem Obstructive sleep apnea G47.33 Active 31492320 Problem Acquired hypothyroidism E03.9 Active 355602703 Problem Pelvic pain R10.2 Active 96331334 Problem Chronic pain G89.29 Active 26494719 Problem Gastro-esophageal reflux disease without esophagitis K21.9 Active 369041100 Problem Anemia due to other cause, not classified D64.89 Active 739776108 Problem Social anxiety disorder F40.10 Active 44920430 Problem Morbid obesity, unspecified obesity type E66.01 Active 200692063 ALLERGIES No Information ENCOUNTERS Encounter Location Date Diagnosis [facility] [address] [facility] [id number] [address] Feb, [facility] [address] [address] Feb, [facility] [address] [place] [address] 87491- 9377 Feb, [facility] [address] [place] [address] 99762- 7798 Jan, [facility] [address] [place] [id number] [place] [address] 88194- 3860 Dec, Bipolar disorder F31.9 ; Posttraumatic stress disorder F43.10 and Borderline personality disorder F60.3 [facility] [address] [place] [address] 67421- 7777 Dec, 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 ; Anemia due to other cause, not classified D64.89 ; Rheumatoid arthritis involving multiple sites with positive rheumatoid factor M05.79 ; 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 ; Dysuria R30.0 ; Urinary tract infection without hematuria, site unspecified N39.0 and Blindness of right eye H54.40 [facility] [address] [place] [address] 71213- 6208 Dec, [facility] [address], [place] [address] Dec, [address] [id number] [id number] Dec, Dental examination Z01.20 [facility] [place] [address] [place] [id number] [address] 3227 Nov, Bipolar disorder F31.9 ; Posttraumatic stress disorder F43.10 and Borderline personality disorder F60.3 [facility] [address] [address] 3888 Nov, Rheumatoid arthritis involving multiple sites with positive rheumatoid factor M05.79 ; Dysuria R30.0 and Blindness of right eye H54.40 [facility] [address], [place] [address] 4889 Nov, Bipolar disorder F31.9 ; Posttraumatic stress disorder F43.10 ; Social anxiety disorder F40.10 and Relationship problem with family member Z63.8 [facility] [address], [place] [address] 4484 Nov, [facility] [address] [id number] [place] [address] 80416- 4108 Nov, [facility] [address] [address] [id number] [place] [address] 56760- 7720 Nov, 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 ; Adverse effect of antineoplastic and immunosuppressive drugs, initial encounter T45.1X5A ; Anemia , unspecified D64.9 and BMI 40.0-44.9, adult Z68.[address] [place] [address] 18143- 9132 Nov, Anemia due to other cause, not classified D64.89 [facility] [address] [place] [address] 26741- 0955 Oct, Adverse effect of drug, initial encounter T50.905A and Acute anemia D64.9 [facility] [address] [place] [address] 18881- 8560 Oct, Anemia due to other cause, not classified D64.89 ; Dysuria R30.0 and Urinary tract infection without hematuria, site unspecified N39.0 [place] [address] [address] 2250 Oct, [place] [address], [place] [address] 2201 Oct, [place] [address] [place] [address] 32870- 3166 Oct, 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 [place] [address] [id number] [id number] Oct, [place] [address], [place] [address] 0018 13 Oct, 2017 [place] [address] [id number] [place] [address] 67698- 7178 12 Oct, 2017 [place] [address] [place] [address] [id number] [place] [address] 39905- 5016 11 Oct, 2017 Bipolar disorder F31.9 ; Posttraumatic stress disorder F43.10 and Borderline personality disorder F60.3 [place] [address] [place] [address] [address] [place] [address] 45773- 7847 Oct, Rheumatoid arthritis involving multiple sites with positive rheumatoid factor M05.79 ; 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 and Anxiety F41.9 [facility] [address] [address] [id number] [place] [address] 61069- 5062 07 Oct, 2017 [place] [address] [place] [id number] [place] [address] 42358- 8860 September, 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 [place] [address] [address] [id number] [place] [address] 78244- 3395 September, Bipolar disorder F31.9 ; Posttraumatic stress disorder F43.10 and Borderline personality disorder F60.3 [place] [address] [place] [address] 00143- 1069 Aug, BMI 40.0-44.9, adult Z68.41 ; Bipolar disorder F31.9 ; Posttraumatic stress disorder F43.10 and Social anxiety disorder F40.10 [place] [address] [address] 2091 Aug, Bipolar disorder F31.9 ; Posttraumatic stress disorder F43.10 and Borderline personality disorder F60.3 [facility] [address] [address] [id number] [place] [address] 89013- 2844 Aug, 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 [place] [address] [place] [address] 87483- 6927 Jul, Bipolar disorder F31.9 ; Posttraumatic stress disorder F43.10 and Borderline personality disorder F60.3 [facility] [address] [place] [address] 85071- 1191 Jul, [facility] [id number] [place] [address] 55839- 7807 Jun, Bipolar disorder F31.9 ; Posttraumatic stress disorder F43.10 and Borderline personality disorder F60.3 [facility] [id number] [place] [address] 80393- 7443 Jun, Blindness of right eye H54.40 and Acquired hypothyroidism E03.9 [facility] [address] 47142- 1882 Jun, [facility] [id number] [place] [address] 22727- 7039 May, Posttraumatic stress disorder F43.10 ; Social anxiety disorder F40.10 and Bipolar disorder F31.9 [facility] [id number] [place] [address] 75753- 0205 May, Bipolar disorder F31.9 ; Posttraumatic stress disorder F43.10 and Borderline personality disorder F60.3 [facility] [address] [place] [address] 89093- 9982 May, [facility] [address] [place] [address] 41899- 2712 May, [facility] [address] [address] [id number] [place] [address] 01771- 3417 Apr, Bipolar disorder F31.9 ; Posttraumatic stress disorder F43.10 and Borderline personality disorder F60.3 [place] [id number] [address] Apr, [facility] [address] [place] [address] 40581- 2386 Apr, [facility] [address] [place] [address] 04364- 2680 Mar, Hydradenitis L73.2 [facility] [address], [place] [address]- 2225 15 Mar, 2017 Lumbago with sciatica, left side M54.42 ; Other chronic pain G89.29 ; Morbid obesity, unspecified obesity type E66.01 ; Hydradenitis L73.2 and BMI 40.0-44.9, adult Z68.41 [place] [place] [address] [address] [id number] [place] [address] 86231- 9800 Mar, Bipolar disorder F31.9 ; Posttraumatic stress disorder F43.10 and Borderline personality disorder F60.3 [place] [address] [address] [id number] [place] [address] 68329- 1813 Mar, Social anxiety disorder F40.10 ; Bipolar disorder F31.9 and Relationship problem with family member Z63.8 [place] [address] [place] [address] 49402- 5370 Mar, [place] [address] [id number] [id number] Mar, Dental examination Z01.20 [facility] [address] [id number] [place] [address] 49534- 8852 Mar, [place] [address] [place] [address] 13912- 9337 Feb, Bipolar disorder F31.9 ; Posttraumatic stress disorder F43.10 and Borderline personality disorder F60.3 [place] [address] [id number] [address] Feb, [facility] [address] [place] [address] 08534- 3387 14 Jan, 2017 Bipolar disorder F31.9 ; Posttraumatic stress disorder F43.10 and Borderline personality disorder F60.3 [facility] [address] [id number] [id number] Jan, [place] [address] [place] [address] 48462- 9109 Jan, [facility] [address] [facility] [id number] [id number] Jan, [place] [address] [place] [address] 02926- 7094 Dec, Bipolar disorder F31.9 ; Posttraumatic stress disorder F43.10 and Borderline personality disorder F60.3 [place] [address] [place] [address] 96703- 8225 Dec, [place] [address] [place] [address] 61624- 3528 Dec, [facility] [id number] [place] [address] [id number] Dec, [place] [address] [place] [address] 16710- 1840 Nov, Bipolar 1 disorder F31.9 ; Posttraumatic stress disorder F43.10 and Social anxiety disorder F40.10 [place] [address] [place] [address] 28967- 4116 Nov, Bipolar disorder F31.9 ; Posttraumatic stress disorder F43.10 and Borderline personality disorder F60.3 [place] [address] [place] [address] 36777- 1275 Nov, Morbid obesity, unspecified obesity type E66.01 [place] [address], [place] [address]- 6522 Nov, [place] [id number] [address] Oct, Encounter for dental examination and cleaning without abnormal findings Z01.20 [place] [address] [place] [id number] [place] [address] 01297- 1823 Oct, Morbid obesity, unspecified obesity type E66.01 and Acute seasonal allergic rhinitis due to pollen J30.1 [place] [address], [place] [address]- 8398 Oct, Bipolar disorder F31.9 ; Posttraumatic stress disorder F43.10 and Borderline personality disorder F60.3 [place] [address] [place] [address] 93237- 3730 September, Morbid obesity, unspecified obesity type E66.01 and Psoriasis L40.9 [place] [address] [place] [id number] [place] [address] 61235- 1475 September, Bipolar disorder F31.9 ; Posttraumatic stress disorder F43.10 and Borderline personality disorder F60.3 [place] [address] [place] [id number] [place] [address] 75097- 5509 September, Chronic pain G89.29 [place] [address] [place] [id number] [place] [address] 30234- 3552 Aug, Other acute nonsuppurative otitis media of right ear H65.191 and Morbid obesity, unspecified obesity type E66.01 [place] [address] [place] [id number] [place] [address] 73648- 1338 Aug, Bipolar 1 disorder F31.9 ; Posttraumatic stress disorder F43.10 and Social anxiety disorder F40.10 [place] [address] [place] [id number] [place] [address] 06482- 6992 Aug, Bipolar disorder F31.9 ; Posttraumatic stress disorder F43.10 and Borderline personality disorder F60.3 [place] [address] [place] [address] 91281- 5848 Jul, Morbid obesity due to excess calories E66.01 ; Gastro- esophageal reflux disease without esophagitis K21.9 and Chronic pain G89.29 [place] [address] [place] [address] 83306- 7343 Jul, Morbid obesity due to excess calories E66.01 [place] [address] [place] [address] 67991- 6092 Jul, [place] [address] [place] [id number] [place] [address] 94058- 1275 Jul, [place] [address], [place] [address]- 0010 02 Jul, 2016 Morbid obesity due to excess calories E66.01 [facility] [id number] [place] [address] 32420- 0109 Jul, Bipolar disorder F31.9 ; Posttraumatic stress disorder F43.10 and Borderline personality disorder F60.3 [facility] [address] [place] [address] 55902- 8002 16 Jun, 2016 [facility] [address] [id number] [place] [address] 95145- 8286 15 Jun, 2016 Morbid obesity due to excess calories E66.01 [facility] [address] [place] [id number] [place] [address] 96894- 0046 Jun, [facility] [address] [id number] [place] [address] 03688- 6228 Jun, Morbid obesity, unspecified obesity type E66.01 [facility] [address] [place] [address] 31984- 1921 Jun, Bipolar disorder F31.9 ; Posttraumatic stress disorder F43.10 and Borderline personality disorder F60.3 [facility] [address] [place] [address] 45901- 3049 Jun, [facility] [address], [place] [address]- 2061 Jun, [facility] [address] [place] [address] 62143- 1297 02 Jun, 2016 Acquired hypothyroidism E03.9 and Morbid obesity due to excess calories E66.01 [facility] [address] [place] [address] 17853- 2738 May, Bipolar disorder F31.9 ; Posttraumatic stress disorder F43.10 and Borderline personality disorder F60.3 [facility] [address] [place] [address] 75321- 9555 Apr, Bipolar 1 disorder F31.9 ; Posttraumatic stress disorder F43.10 and Social anxiety disorder F40.[address] [id number] [id number] 12 Apr, 2016 Encounter for dental examination Z01.20 [facility] [address], [place] [address]- 5511 08 Apr, 2016 [facility] [id number] [place] [address] 56631- 5445 08 Apr, 2016 Acquired hypothyroidism E03.9 [facility] [address] [id number] [place] [address] 340952- 1043 Apr, Acquired hypothyroidism E03.9 [facility] [address] [place] [id number] [place] [address] 42696- 6503 Apr, Bipolar disorder F31.9 ; Posttraumatic stress disorder F43.10 and Borderline personality disorder F60.3 [facility] [address] [address] [id number] [place] [address] 19180- 2795 Apr, Acquired hypothyroidism E03.[address] [id number] [id number] Mar, Encounter for dental examination and cleaning without abnormal findings Z01.20 [facility] [address], [place] [address]- 0721 08 Mar, 2016 [facility] [address] [id number] [place] [address] 96774- 8695 Mar, Bipolar disorder F31.9 ; Posttraumatic stress disorder F43.10 and Borderline personality disorder F60.3 [facility] [address] [place] [address] 64355- 5946 Mar, Essential (primary) hypertension I10 [facility] [address] [place] [address] 55631- 7680 Feb, [facility] [id number] [place] [address] 50998- 8624 Feb, [facility] [id number] [place] [address] 43876- 6244 11 Feb, 2016 Pelvic pain R10.2 ; Lipid screening Z13.220 ; Fatigue, unspecified type R53.83 and Weight gain R63.5 [place] [address] [address] [id number] [place] [address] 98754- 4210 11 Feb, 2016 Bipolar disorder F31.9 ; Posttraumatic stress disorder F43.10 and Borderline personality disorder F60.3 [place] [address] [place] [address] [id number] [place] [address] 25569- 1631 07 Feb, 2016 [place] [address] 75870- 0385 05 Feb, 2016 [place] [address] [place] [id number] [place] [address] 11043- 0398 30 Jan, 2016 Obstructive sleep apnea syndrome G47.[address] 61182- 2134 26 Jan, [address] [id number] [address] 19 Jan, 2016 Dental examination Z01.20 [place] [address] [place] [address] [id number] [place] [address] 25909- 8248 13 Jan, 2016 Bipolar 1 disorder F31.9 ; Posttraumatic stress disorder F43.10 and Social anxiety disorder F40.10 [place] [address] [place] [address] [id number] [place] [address] 58605- 3258 Jan, Bipolar disorder F31.9 ; Posttraumatic stress disorder F43.10 and Borderline personality disorder F60.3 [place] [address] [place] [address] [id number] [place] [address] 66048- 2579 Jan, Sciatica of left side M54.32 [place] [address] [place] [address] [id number] [place] [address] 47610- 6615 06 Jan, 2016 [place] [address] [place] [address] [id number] [place] [address] 93251- 5945 Dec, [place] [address], [place] [address]- 9680 Dec, [facility] [id number] [place] [address] 63713- 6434 Dec, Bipolar disorder F31.9 ; Posttraumatic stress disorder F43.10 and Borderline personality disorder F60.3 [facility] [id number] [place] [address] 30341- 1556 Nov, [facility] [id number] [place] [address] 89604- 2481 Nov, Insomnia, unspecified type G47.00 [facility] [id number] [place] [address] 82570- 7445 Nov, Bipolar disorder F31.9 ; Posttraumatic stress disorder F43.10 and Borderline personality disorder F60.3 [facility] [id number] [place] [address] 28326- 8905 Nov, [facility] [address] [place] [address] 70085- 9602 Nov, [facility] [id number] [place] [address] 60766- 2159 Oct, Bipolar disorder F31.9 ; Posttraumatic stress disorder F43.10 and Borderline personality disorder F60.3 [facility] [address] [place] [address] 30430- 8627 Oct, [facility] [address] [place] [address] 71506- 1406 Oct, Essential (primary) hypertension I10 [facility] [id number] [place] [address] 69555- 5130 September, Bipolar 1 disorder F31.9 ; Posttraumatic stress disorder F43.10 and Social anxiety disorder F40.10 [facility] [address] [place] [address] 24929- 5085 September, Bipolar disorder F31.9 ; Posttraumatic stress disorder F43.10 and Borderline personality disorder F60.3 [facility] [address] [facility] [id number] [id number] September, Encounter for dental examination and cleaning without abnormal findings Z01.20 [facility] [address] [address]- 4894 September, [facility] [address] [place] [address] 11608- 0944 September, [facility] [address], [place] [address]- 2349 Aug, [facility] [address] [place] [address] 06512- 3335 Aug, Bipolar disorder F31.9 ; Posttraumatic stress disorder F43.10 and Borderline personality disorder F60.3 [facility] [address], [place] [address]- 2478 Aug, [facility] [address] [place] [address] 62986- 6338 Aug, [facility] [address], [place] [address]- 8232 Aug, [place] [id number], [place] [id number] Jul, Acute nasopharyngitis [common cold] J00 and Other viral agents as the cause of diseases classified elsewhere B97.89 [facility] [address] [address]- 8053 Jul, Chronic pain G89.29 and Allergic rhinitis J30.9 [facility] [address] [place] [address] 86317- 8573 Jul, Bipolar 1 disorder F31.9 ; Posttraumatic stress disorder F43.10 and Social anxiety disorder F40.10 [facility] [id number] [address] Jul, Bipolar 1 disorder F31.9 [facility] [id number] [address] 16 Jul, 2015 Bipolar disorder F31.9 ; Posttraumatic stress disorder F43.10 and Borderline personality disorder F60.3 [facility] [id number] [place] [address] [phone]- [phone] 14 Jul, 2015 [facility] [id number] [place] [address] [phone]- [phone] 14 Jul, 2015 [facility] [id number] [place] [address] [phone]- [phone] 11 Jul, 2015 [facility] [id number] [place] [address] 56762- 5409 10 Jul, 2015 Anxiety F41.9 [facility] [id number] [place] [address] 08791- [phone] 10 Jul, 2015 Chronic pain G89.29 and Encounter for therapeutic drug level monitoring Z51.81 [facility] [id number] [place] [address] 51853- 0938 09 Jul, 2015 Chronic pain G89.29 and Encounter for therapeutic drug level monitoring Z51.81 [facility] [id number] [place] [address] [phone]- [phone] 08 Jul, 2015 [facility] [id number] [place] [address] [phone]- [phone] 19 Jun, 2015 [facility] [id number] [place] [address] 76040- 9967 19 Jun, 2015 [facility] [id number] [place] [address] 42129- 4547 15 Jun, 2015 [facility] [id number] [place] [address] 04726- 6551 15 Jun, 2015 [facility] [id number] [place] [address] 00538- 9032 11 Jun, 2015 High risk medication use V58.69 [facility] [id number] [place] [address] 56732- 0652 Jun, [facility] [id number] [place] [address] 37196- 0486 Jun, Bipolar 1 disorder F31.9 ; Overdose T50.901A and Chronic pain G89.29 [facility] [id number] [place] [address] 67700- 7556 Jun, Bipolar disorder F31.9 ; Posttraumatic stress disorder F43.10 and Borderline personality disorder F60.3 [facility] [id number] [place] [address] 58312- 2474 Jun, [facility] [address] 05580- 6802 Jun, [facility] [id number] [place] [address] 26221- 1377 Jun, Keloid L91.0 [facility] [id number] [place] [address] 72475- 3998 Jun, [facility] [id number] [place] [address] 85582- 3778 May, [facility] [id number] [place] [address] 50575- 9773 May, [facility] [id number] [place] [address] 69801- 0079 May, Pelvic pain R10.2 [facility] [id number] [place] [address] 03937- 6737 May, [facility] [id number] [place] [address] 28240- 9106 May, Pain of left thumb M79.645 ; Incisional pain R20.8 ; Pelvic pain R10.2 and Essential hypertension I10 [facility] [id number] [place] [address] 27279- 0312 May, [facility] [address] [place] [address]- 7002 May, [facility] [address] [id number] [id number] May, Dental examination Z01.20 and Necrosis of pulp K04.1 [facility] [address] [facility] [id number], [place] [address]- 9742 Apr, [facility] [address] [facility] [id number] [place] [address] 11143- 9419 Apr, [facility] [address] [facility] [id number] [place] [address] 01541- 9638 Apr, [facility] [id number] [place] [address] 94637- 0001 Apr, [facility] [address] [id number] [address] 0988 Apr, [facility] [id number] [place] [address] 72178- 6079 Apr, [facility] [address] [id number], [place] [address]- 3495 Apr, [facility] [id number] [place] [address] 42967- 9597 Apr, [facility] [address], [place] [address]- 9812 Mar, [facility] [address] [id number], [place] [address]- 0740 Mar, [facility] [address] [id number], [place] [address]- 8557 Mar, [facility] [id number] [place] [address] 66647- 0427 Mar, [facility] [address] [id number], [place] [address]- 1659 Feb, [facility] [id number] [place] [address] 00607- 5149 Feb, [facility] [address], [place] [address]- 4237 Feb, [facility] [address], [place] [address]- 7938 Feb, [facility] [address], [place] [address]- 6327 Feb, [facility] [id number] [place] [address] 38743- 2019 Feb, [facility] [id number] [place] [address] 99518- 8699 Feb, [facility] [id number] [place] [address] 28577- 5934 Feb, Dermatofibroma of left lower leg D23.72 [facility] [id number] [place] [address] 49203- 6197 Feb, Hematochezia 578.1 ; Low back pain M54.5 ; High risk medication use V58.69 ; Cervicalgia M54.2 and Anxiety F41.9 [facility] [address] [place] [address] [id number] [id number] Feb, Dental examination Z01.20 ; Pulpitis K04.0 and Dental caries, unspecified K02.9 [facility] [address] [place] [address] [id number] [id number] Feb, Dental examination Z01.20 [facility] [address], [place] [address]- 3323 30 Jan, 2015 [facility] [id number] [place] [address] 42574- 1899 Jan, [facility] [address], [place] [address]- 5602 Jan, [facility] [address], [place] [address]- 7448 Jan, [facility] [address] [id number] [place] [address]- 9395 Dec, [facility] [address] [id number] [place] [address]- 9272 Dec, [facility] [address] [id number] [place] [address]- 1175 Dec, [facility] [address] [id number] [place] [address]- 9993 Dec, [facility] [address] [id number] [place] [address]- 6180 Dec, [facility] [address] [id number] [place] [address]- 5503 Dec, [facility] [address] [id number] [place] [address]- 8005 Dec, [facility] [address] [id number], [place] [address]- 4835 Dec, [facility] [address] [facility] [id number] [id number] Nov, Encounter for removal of sutures V58.32 [facility] [address] [id number], [place] [address]- 0303 Nov, [facility] [address] [id number], [place] [address]- 2159 Nov, [facility] [address] [id number], [place] [address]- 4186 Nov, [facility] [address] [id number], [place] [address]- 7358 Nov, [facility] [address] [id number], [place] [address]- 2887 Nov, [facility] [address] [id number] [place] [address]- 0054 Nov, [facility] [address], [place] [address]- 2030 Nov, [facility] [address], [place] [address]- 9284 Nov, Dermatofibroma 216.9 [facility] [address], [place] [address]- 1510 Nov, [facility] [address], [place] [address]- 6334 Nov, [facility] [address], [place] [address]- 3757 Oct, [facility] [id number] [place] [address] 07233- 9541 Oct, Hematochezia 578.1 ; Abscess 682.9 ; GERD (gastroesophageal reflux disease) 530.81 ; Visual disturbance of one eye 368.9 and High risk medication use V58.69 [facility] [address], [place] [address]- 7262 Oct, [facility] [address], [place] [address]- 5766 Oct, [facility] [address], [place] [address]- 3257 Oct, [facility] [address], [place] [address]- 8561 September, [facility] [address], [place] [address]- 4675 September, [facility] [address], [place] [address]- 2209 September, [facility] [address], [place] [address]- 1256 September, [facility] [address], [place] [address]- 6996 September, [facility] [address], [place] [address]- 4062 September, Colon cancer screening V76.51 [facility] [address] [facility] [id number] [place] [address]- 9690 September, [facility] [place] [facility] [address] [facility] [id number] [place] [address]- 2346 Aug, [facility] [address] [facility] [id number] [place] [address]- 8728 Aug, [facility] [place] [facility] [address] [facility] [id number] [place] 2504 Jul, [facility] [address] [facility] [id number] [place] [address]- 4282 Jul, [facility] [id number] 5923 Jul, [facility] [address] [place] [address]- 2304 Jul, [facility] [address] [id number], [place] [address]- 3814 Jun, [facility] [address] [place] [address]- 1381 Jun, [facility] [address] [id number], [place] [address]- 0654 Jun, [facility] [place] [facility] [address] [id number] 8523 Jun, [facility] [id number], [place] [address]- 6498 Jun, [facility] [place] [facility] [id number] [place] [address]- 0761 Jun, [facility] [place] [facility] [address] [facility] [id number], [place] [address]- 9406 May, [facility] [place] [facility] [address] [id number], [place] [address]- 5463 May, [facility] [place] [facility] [address] [id number] [place] [address]- 7948 May, [facility] [place] [facility] [address] [id number] [place] [address]- 5539 May, [facility] [place] [facility] [address] [id number] [place] [address]- 5381 May, [facility] [place] [facility] [address] [id number] [place] [address]- 2824 May, [facility] [place] [facility] [address] [id number] [place] [address]- 5241 May, [facility] [place] [facility] [address] [id number] [place] [address]- 1874 May, [facility] [place] [facility] [address] [id number] [place] [address]- 8621 Apr, [facility] [place] [facility] [address] [id number] [place] [address]- 8426 Apr, [facility] [place] [facility] [address] [id number] [place] [address]- 7627 Apr, [facility] [place] [facility] [address] [id number] [place] [address]- 5872 Apr, [facility] [place] [facility] [address] [id number] [place] [address]- 4479 Apr, [facility] [place] [facility] [address] [id number], [place] [address]- 1589 Apr, [facility] [place] [facility] [address] [id number] [place] [address]- 6029 Apr, [facility] [place] [facility] [address] [id number] [place] [address]- 1198 Apr, [facility] [place] [facility] [address] [id number] [place] [address]- 9050 Mar, [facility] [place] [facility] [address] [id number] [place] [address]- 5882 Mar, [facility] [place] [facility] [address] [id number] [place] [address]- 4271 Mar, [facility] [place] [facility] [address] [id number] [place] [address]- 7456 Mar, [facility] [place] [facility] [address] [id number] [place] [address]- 0059 Mar, [facility] [place] [facility] [address] [id number] [place] [address]- 8360 Mar, [facility] [place] [facility] [address] [id number] [place] [address]- 8840 Mar, [facility] [place] [facility] [address] [id number] [place] [address]- 5867 Mar, [facility] [place] [facility] [address] [id number] [place] [address]- 8531 Mar, [facility] [place] [facility] [address] [id number] [place] [address]- 1162 Mar, [facility] [place] [facility] [address] [id number] [place] [address]- 6273 Feb, [facility] [place] [facility] [address] [id number] [place] [address]- 3779 Feb, [facility] [place] [facility] [address] [id number] [place] [address]- 3050 Jan, [facility] [place] [facility] [address] [id number] [place] [address]- 7482 Jan, [facility] [place] [facility] [address] [id number] [place] [address]- 1639 Jan, [facility] [place] [facility] [address] [id number] [place] [address]- 1163 Jan, [facility] [place] [facility] [address] [id number] [place] [address]- 5548 Dec, [facility] [place] [facility] [address] [id number] [place] [address]- 5959 Dec, [facility] [place] [facility] [address] [id number] [place] [address]- 3870 Dec, [facility] [place] [facility] [address] [id number] [place] [address]- 5342 Dec, [facility] [place] [facility] [address] [id number] [place] [address]- 6866 Dec, [facility] [place] [facility] [address] [id number] [place] [address]- 4615 Dec, [facility] [place] [facility] [address] [id number] [place] [address]- 1579 Nov, [facility] [place] [facility] [address] [id number] [place] [address]- 7056 Nov, [facility] [place] [facility] [address] [id number] [place] [address]- 3859 Oct, [facility] [place] [facility] [address] [id number] [place] [address]- 0749 Oct, [facility] [place] [facility] [address] [id number] [place] [address]- 6926 Oct, [facility] [place] [facility] [address] [id number] [place] [address]- 8960 Oct, [facility] [place] [facility] [address] [id number] [place] [address]- 1989 September, [facility] [place] [facility] [address] [id number] [place] [address]- 0175 September, [facility] [place] [facility] [address] [id number] [place] [address]- 6197 September, [facility] [place] [facility] [address] [id number] [place] [address]- 2037 September, [facility] [place] [facility] [address] [id number] [place] [address]- 9070 September, [facility] [place] [facility] [address] [id number] [place] [address]- 4816 September, [facility] [place] [facility] [address] [id number] [place] 7338 September, [facility] [place] [facility] [address] [id number] [place] [address]- 3415 September, [facility] [place] [facility] [address] [id number] [place] [address]- 6309 Aug, [facility] [place] [facility] [address] [id number] [place] [address]- 3345 Aug, [facility] [place] [facility] [address] [id number] [place] [address]- 5400 Aug, [facility] [place] [facility] [address] [id number] [place] [address]- 7580 Aug, [facility] [place] [facility] [address] [id number] [place] [address]- 6683 Aug, [facility] [place] [facility] [address] [id number] [place] [address]- 7298 Aug, [facility] [place] [facility] [address] [id number] [place] [address]- 1841 Jul, [facility] [place] [facility] [address] [id number] [place] [address]- 5511 Jul, [facility] [place] [facility] [address] [id number] [place] [address]- 0970 Jul, [facility] [place] [facility] [address] [id number] [place] [address]- 8088 Jul, [facility] [place] [facility] [address] [id number] [place] [address]- 0406 Jun, [facility] [place] [facility] [address] [id number] [place] [address]- 7053 Jun, [facility] [place] [facility] [address] [id number] [place] [address]- 2628 Jun, [facility] [address] [id number] [place] [address]- 0501 Jun, [facility] [address] [id number] [place] [address]- 3016 Jun, [facility] [address] [id number] [place] [address]- 3526 Jun, [facility] [address] [id number] [place] [address]- 3440 May, [facility] [address] [id number] [place] [address]- 4545 May, [facility] [address] [id number] [place] [address]- 4437 May, [facility] [address] [id number] [place] [address]- 9599 May, [facility] [address] [id number] [place] [address]- 0624 May, [facility] [address] [id number] [place] [address]- 2615 May, [facility] [address] [id number] [place] [address]- 5585 May, [facility] [address] [id number] [place] [address]- 4162 May, [facility] [address] [id number] [place] [address]- 5358 Apr, [facility] [place] [id number] Apr, [facility] [address] [id number] [place] [address]- 2076 Apr, [facility] [address] [id number] [place] 6923 Apr, [facility] [place] [facility] [address] [id number] [place] [address]- 6865 Apr, [facility] [place] [facility] [address] [id number] [place] [address]- 4004 Apr, [facility] [place] [facility] [address] [id number] [place] [address]- 6278 05 Apr, 2013 [facility] [place] [facility] [address] [id number] [place] [address]- 6641 05 Apr, 2013 [facility] [place] [facility] [address] [id number] [place] [address]- 4775 Apr, [facility] [place] [facility] [address] [id number] [place] [address]- 7400 Mar, [facility] [place] [facility] [address] [id number] [place] [address]- 7012 Mar, [facility] [place] [facility] [address] [id number], [place] [address] Mar, [facility] [place] [facility] [address] [id number], [place] [address] Mar, [facility] [place] [facility] [address] [id number], [place] [address] Mar, [facility] [place] [facility] [address] [id number], [place] [address] Feb, [facility] [place] [facility] [address] [id number], [place] [address] Feb, [facility] [place] [facility] [address] [id number], [place] [address] Feb, [facility] [place] [facility] [address] [id number], [place] [address] 14 Feb, 2013 [facility] [place] [facility] [address] [id number], [place] [address] 25 Jan, 2013 [facility] [place] [facility] [address] [id number], [place] [address] Jan, [facility] [address] [id number], [place] [address] Jan, [facility] [address] [id number], [place] [address] Dec, [facility] [address] [id number], [place] [address] Dec, [facility] [address] [id number], [place] [address] Dec, [facility] [address] [id number][place] [id number] Nov, [facility] [address] [id number][place] [id number] Oct, [facility] [address] [facility] [id number], [place] [address] Oct, [facility] [place] [facility] [address] [id number], [place] [address] September, [facility] [address] [id number], [place] [address] September, [facility] [address] [id number], [place] [address] September, [facility] [place] [facility] [address] [id number], [place] [address] September, [facility] [place] [facility] [address] [id number], [place] [address] September, [facility] [place] [facility] [address] [id number] [place] [address] Jul, [facility] [place] [facility] [address] [id number], [place] [address] Jul, [facility] [place] [facility] [address] [id number] [place] [address] Jul, [facility] [place] [facility] [address] [id number] [place] [address] Jul, [facility] [address] [id number] [place] [address] Jun, [facility] [place] [facility] [address] [id number] [place] [address] Jun, [facility] [place] [facility] [address] [id number] [place] [address] Jun, [facility] [place] [facility] [address] [id number] [place] [address] 254 Jun, [facility] [place] [facility] [address] [id number] [place] [address] May, [facility] [place] [facility] [address] [id number] [place] [address] Mar, [facility] [place] [facility] [address] [facility] [id number] [place] [address] Mar, [facility] [address] [id number] [place] [address] Mar, [facility] [place] [facility] [address] [facility] [id number] [place] [address] Mar, [facility] [place] [facility] [address] [facility] [id number] [place] [address] Mar, [facility] [place] [facility] [address] [facility] [id number] [place] [address] 2542 Mar, [facility] [place] [facility] [address] [id number] [place] [address] Mar, [facility] [place] [facility] [address] [id number] [place] [address] Mar, [facility] [place] [facility] [address] [facility] [id number] [place] [address] Feb, [facility] [place] [facility] [address] [id number] [place] [address] Feb, [facility] [place] [facility] [address] [id number] [place] [address] Feb, [facility] [place] [facility] [address] [id number] [place] [address] Feb, [facility] [place] [facility] [address] [id number] [place] [address] Feb, [facility] [place] [facility] [address] [id number] [place] [address] Feb, [facility] [place] [facility] [address] [id number] [place] [address] Feb, [facility] [address] [facility] [address] [id number] [place] [id number] Jan, [facility] [address] [id number] [place] [id number] Dec, [facility] [address] [id number] [place] [id number] Dec, [facility] [place] [facility] [address] [id number], [place] [address] Nov, [facility] [place] [facility] [address] [facility] [id number] [place] [address] Nov, [facility] [place] [facility] [address] [facility] [id number], [place] [address] Oct, [facility] [place] [facility] [address] [facility] [id number] [place] [address] Jul, [facility] [place] [facility] [address] [facility] [id number], [place] [address] Jul, [facility] [place] [facility] [address] [facility] [id number] [place] [address] May, [facility] [place] [facility] [address] [facility] [id number] [place] [address]46 May, [facility] [place] [facility] [address] [facility] [id number], [place] [address] Nov, [facility] [id number], [place] [address] Mar, [facility] [id number], [place] [address] Dec, [facility] [id number], [place] [address] Nov, [facility] [id number], [place] [address] Aug, [facility] [id number], [place] [address] Apr, [facility] [address] [id number] [place] [address] Apr, [facility] [id number] [address] Mar, [facility] [id number] [address] Feb, [facility] [id number] [address] September, [facility] [id number] [address] Jun, [facility] [id number] [place] [address] Mar, IMMUNIZATIONS No Known Immunizations SOCIAL HISTORY Never Assessed REASON FOR VISIT f/u PLAN OF CARE Activity Details Follow Up Next available Reason: F/U VITAL SIGNS MEDICATIONS Unknown Medications RESULTS No Results PROCEDURES Procedure Date Ordered Result Body Site Psychotherapy, patient &/family, 45 minutes, established patient December 13, 2017 INSTRUCTIONS MEDICATIONS ADMINISTERED No Known Medications [...] hernia Hospitalization History Went by ambulance to [place] as unresponsive 05/2015 Hospitalization History [place] sent her to [facility] for a psych hold 05/2015
--- OUTSIDE RECORDS SUMMARY | 2018-03-15 10:46 | XMS REPORT ---
Author Author HERBERT MCGOWAN Organization [facility] Address [facility] [place] [address] Care Team Providers Care Interventional Technologist Name Role Phone HERBERT MCGOWAN Unavailable PROBLEMS Type Condition ICD9-CM Code GPU89-NU Code Onset Dates Condition Status SNOMED Code Problem Psoriasis L40.9 Active 3801588 Problem Relationship problem with family member Z63.8 Active 766705008 Problem Essential hypertension I10 Active 94645734 Problem Anxiety F41.9 Active 13013706 Problem Visual disturbance H53.9 Active 60358625 Problem Rheumatoid arthritis involving multiple sites with positive rheumatoid factor M05.79 Active 568451212 Problem Bilateral low back pain with sciatica, sciatica laterality unspecified M54.40 Active 287351444 Problem Hypokalemia E87.6 Active 22289458 Problem Lumbago with sciatica, left side M54.42 Active 066067498 Problem Other chronic pain G89.29 Active 20794196 Problem 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 Active 298473455 Problem Blindness of right eye H54.40 Active 439559361 Problem Posttraumatic stress disorder F43.10 Active 97819990 Problem Overdose T50.901A Active 74658113 Problem Bipolar disorder F31.9 Active 56467438 Problem Borderline personality disorder F60.3 Active 86231070 Problem Obstructive sleep apnea G47.33 Active 78589363 Problem Acquired hypothyroidism E03.9 Active 894169677 Problem Pelvic pain R10.2 Active 77652928 Problem Chronic pain G89.29 Active 87772305 Problem Gastro-esophageal reflux disease without esophagitis K21.9 Active 848952527 Problem Anemia due to other cause, not classified D64.89 Active 629120245 Problem Social anxiety disorder F40.10 Active 33580543 Problem Morbid obesity, unspecified obesity type E66.01 Active [id number] ALLERGIES No Information ENCOUNTERS Encounter Location Date Diagnosis [facility] [address], [place] [address] Feb, [facility] [address] [address] Feb, [facility] [address] [address] Feb, [facility] [address] [place] [address] 92400- 5309 Jan, 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 [address], [place] [address] 5093 Nov, Rheumatoid arthritis involving multiple sites with positive rheumatoid factor M05.79 ; Dysuria R30.0 and Blindness of right eye H54.40 [place] [address], [place] [address] 9184 Nov, Bipolar disorder F31.9 ; Posttraumatic stress disorder F43.10 ; Social anxiety disorder F40.10 and Relationship problem with family member Z63.8 [place] [address], [place] [address] 7509 Nov, [place] [address] [place] [id number] [place] [address] 43212- 0681 Nov, [place] [address] [place] [address] 27931- 2289 Nov, 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 ; Adverse effect of antineoplastic and immunosuppressive drugs, initial encounter T45.1X5A ; Anemia , unspecified D64.9 and BMI 40.0-44.9, adult Z68.41 [address] [place] [address] 05031- 5433 Nov, Anemia due to other cause, not classified D64.89 [place] [address] [place] [address] 74475- 5218 Oct, Adverse effect of drug, initial encounter T50.905A and Acute anemia D64.9 [place] [address], [place] [address] 0560 Oct, Anemia due to other cause, not classified D64.89 ; Dysuria R30.0 and Urinary tract infection without hematuria, site unspecified N39.0 [place] [address], [place] [address] 5014 Oct, [place] [address] [place] [address] 39669- 7849 Oct, [place] [address] [place] [address] 20702- 2221 Oct, 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 [facility] [address] [id number] [id number] Oct, [place] [address], [place] [address] 1041 13 Oct, 2017 [facility] [id number] [place] [address] 64201- 4654 12 Oct, 2017 [facility] [address] [place] [address] 80451- 7958 11 Oct, 2017 Bipolar disorder F31.9 ; Posttraumatic stress disorder F43.10 and Borderline personality disorder F60.3 [place] [id number] [place] [address] 89080- 0721 11 Oct, 2017 Rheumatoid arthritis involving multiple sites with positive rheumatoid factor M05.79 ; 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 and Anxiety F41.9 [place] [address] [place] [address] 12327- 0783 07 Oct, 2017 [place] [id number] [place] [address] 55158- 2534 September, 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 [place] [address] [place] [address] 19568- 6830 September, Bipolar disorder F31.9 ; Posttraumatic stress disorder F43.10 and Borderline personality disorder F60.3 [place] [address] [place] [address] 54638- 7431 24 Aug, 2017 BMI 40.0-44.9, adult Z68.41 ; Bipolar disorder F31.9 ; Posttraumatic stress disorder F43.10 and Social anxiety disorder F40.10 [place] [address] [place] [address] 22594- 2025 Aug, Bipolar disorder F31.9 ; Posttraumatic stress disorder F43.10 and Borderline personality disorder F60.3 [place] [address] [place] [address] 41472- 7280 Aug, 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 [place] [address] [place] [address] 16064- 4298 Jul, Bipolar disorder F31.9 ; Posttraumatic stress disorder F43.10 and Borderline personality disorder F60.3 [facility] [address] [place] [address] 22829- 3169 Jul, [facility] [id number] [place] [address] 43932- 8241 Jun, Bipolar disorder F31.9 ; Posttraumatic stress disorder F43.10 and Borderline personality disorder F60.3 [facility] [id number] [place] [address] 04366- 2408 Jun, Blindness of right eye H54.40 and Acquired hypothyroidism E03.9 [facility] [id number] [place] [address] 01000- 7273 Jun, [facility] [id number] [place] [address] 09543- 0198 May, Posttraumatic stress disorder F43.10 ; Social anxiety disorder F40.10 [address] F31.9 [facility] [address] [place] [address] 68466- 7251 May, Bipolar disorder F31.9 ; Posttraumatic stress disorder F43.10 and Borderline personality disorder F60.3 [facility] [address] [place] [address] 48544- 4408 May, [facility] [address] [place] [address] 99249- 4234 May, [facility] [address] [place] [address] 23801- 0262 Apr, Bipolar disorder F31.9 ; Posttraumatic stress disorder F43.10 and Borderline personality disorder F60.3 [place] [id number] [id number] Apr, [facility] [address] [place] [address] 58017- 6505 Apr, [facility] [address] [place] [address] 86966- 7391 Mar, Hydradenitis L73.2 [facility] [address], [place] [address] 1805 15 Mar, 2017 Lumbago with sciatica, left side M54.42 ; Other chronic pain G89.29 ; Morbid obesity, unspecified obesity type E66.01 ; Hydradenitis L73.2 and BMI 40.0-44.9, adult Z68.41 [place] [id number] [place] [address] 47016- 6759 Mar, Bipolar disorder F31.9 ; Posttraumatic stress disorder F43.10 and Borderline personality disorder F60.3 [place] [id number] [place] [address] 44211- 6088 Mar, Social anxiety disorder F40.10 ; Bipolar disorder F31.9 and Relationship problem with family member Z63.8 [address] [place] [address] 79094- 8952 Mar, [facility] [address] [id number] [id number] Mar, Dental examination Z01.20 [place] [address] [id number] [place] [address] 05157- 2494 Mar, [place] [address] [place] [address] 03865- 9071 Feb, Bipolar disorder F31.9 ; Posttraumatic stress disorder F43.10 and Borderline personality disorder F60.3 [place] [id number] [id number] Feb, [facility] [address], [place] [address]- 1561 14 Jan, 2017 Bipolar disorder F31.9 ; Posttraumatic stress disorder F43.10 and Borderline personality disorder F60.3 [facility] [address] [id number] [id number] Jan, [place] [address] [place] [address] 06119- 4939 Jan, [facility] [address] [id number] [address] Jan, [facility] [address] [place] [address] 81605- 4078 Dec, Bipolar disorder F31.9 ; Posttraumatic stress disorder F43.10 and Borderline personality disorder F60.3 [place] [address], [place] [address]- 0336 Dec, [facility] [address], [place] [address]- 8564 Dec, [facility] [id number] [address] Dec, [facility] [address] [place] [address] 81969- 5568 Nov, Bipolar 1 disorder F31.9 ; Posttraumatic stress disorder F43.10 and Social anxiety disorder F40.10 [place] [address] [place] [address] 64990- 3875 Nov, Bipolar disorder F31.9 ; Posttraumatic stress disorder F43.10 and Borderline personality disorder F60.3 [place] [address], [place] [address]- 4473 Nov, Morbid obesity, unspecified obesity type E66.01 [place] [address], [place] [address]- 9847 Nov, [address] [id number] [id number] Oct, Encounter for dental examination and cleaning without abnormal findings Z01.20 [place] [address] [place] [id number] [place] [address] 40347- 0589 Oct, Morbid obesity, unspecified obesity type E66.01 and Acute seasonal allergic rhinitis due to pollen J30.1 [place] [address], [place] [address]- 1785 Oct, Bipolar disorder F31.9 ; Posttraumatic stress disorder F43.10 and Borderline personality disorder F60.3 [place] [address] [place] [id number] [place] [address] 30480- 6512 September, Morbid obesity, unspecified obesity type E66.01 and Psoriasis L40.9 [place] [address] 44189- 1328 September, Bipolar disorder F31.9 ; Posttraumatic stress disorder F43.10 and Borderline personality disorder F60.3 [place] [address] 87269- 2717 September, Chronic pain G89.29 [place] [address] 38954- 3387 Aug, Other acute nonsuppurative otitis media of right ear H65.191 and Morbid obesity, unspecified obesity type E66.01 [place] [address] 33537- 2617 Aug, Bipolar 1 disorder F31.9 ; Posttraumatic stress disorder F43.10 and Social anxiety disorder F40.10 [place] [address] 31931- 6301 Aug, Bipolar disorder F31.9 ; Posttraumatic stress disorder F43.10 and Borderline personality disorder F60.3 [place] [address] [id number] [place] [address] 35910- 3511 Jul, Morbid obesity due to excess calories E66.01 ; Gastro- esophageal reflux disease without esophagitis K21.9 and Chronic pain G89.29 [place] [address] [id number] [place] [address] 46256- 8702 Jul, Morbid obesity due to excess calories E66.01 [place] [address] [place] [id number] [place] [address] 05976- 0355 Jul, [place] [address] 20946- 2808 Jul, [place] [address], [place] [address]- 6200 02 Jul, 2016 Morbid obesity due to excess calories E66.01 [facility] [id number] [place] [address] 18256- 7229 Jul, Bipolar disorder F31.9 ; Posttraumatic stress disorder F43.10 and Borderline personality disorder F60.3 [facility] [id number] [place] [address] 11775- 0188 16 Jun, 2016 [facility] [id number] [place] [address] 44217- 5014 15 Jun, 2016 Morbid obesity due to excess calories E66.01 [facility] [id number] [place] [address] 14592- 5940 Jun, [facility] [id number] [place] [address] 56605- 2552 Jun, Morbid obesity, unspecified obesity type E66.01 [facility] [id number] [place] [address] 05998- 8287 Jun, Bipolar disorder F31.9 ; Posttraumatic stress disorder F43.10 and Borderline personality disorder F60.3 [facility] [address] [place] [address] 29861- 3659 Jun, [facility] [address], [place] [address]- 5718 Jun, [facility] [id number] [place] [address] 29542- 2393 02 Jun, 2016 Acquired hypothyroidism E03.9 and Morbid obesity due to excess calories E66.01 [facility] [address] [place] [address] 12609- 5706 May, Bipolar disorder F31.9 ; Posttraumatic stress disorder F43.10 and Borderline personality disorder F60.3 [facility] [address] [place] [address] 22577- 4425 Apr, Bipolar 1 disorder F31.9 ; Posttraumatic stress disorder F43.10 and Social anxiety disorder F40.[address] [id number] [id number] Apr, Encounter for dental examination Z01.20 [facility] [address] [place] [address] 70420- 0523 08 Apr, 2016 [facility] [id number] [place] [address] 17882- 4142 08 Apr, [address] [facility] [id number] [place] [address] 641105- 0471 Apr, Acquired hypothyroidism E03.9 [facility] [id number] [place] [address] 13473- 4974 Apr, Bipolar disorder F31.9 ; Posttraumatic stress disorder F43.10 and Borderline personality disorder F60.3 [facility] [id number] [place] [address] 31032- 2779 Apr, Acquired hypothyroidism E03.[address] [id number][place] [id number] Mar, Encounter for dental examination and cleaning without abnormal findings Z01.20 [facility] [address] [place] [address] 25204- 3535 08 Mar, 2016 [facility] [id number] [place] [address] 36083- 8039 Mar, Bipolar disorder F31.9 ; Posttraumatic stress disorder F43.10 and Borderline personality disorder F60.3 [facility] [address] [place] [address] 03809- 4837 Mar, Essential (primary) hypertension I10 [facility] [id number] [place] [address] 30017- 0998 Feb, [facility] [id number] [place] [address] 13572- 9990 Feb, [facility] [address] [place] [address] 81068- 7620 11 Feb, 2016 Pelvic pain R10.2 ; Lipid screening Z13.220 ; Fatigue, unspecified type R53.83 [address] Weight [address]5 [facility] [id number] [place] [address] 97607- 1877 11 Feb, 2016 Bipolar disorder F31.9 ; Posttraumatic stress disorder F43.10 and Borderline personality disorder F60.3 [place] [id number] [place] [address] 11656- 3448 07 Feb, 2016 [place] [address] 61694- 3654 05 Feb, 2016 [place] [id number] [place] [address] 63957- 0859 30 Jan, 2016 Obstructive sleep apnea syndrome G47.33 [place] [id number] [place] [address] 45298- 8071 26 Jan, [address] [id number] [id number] 19 Jan, 2016 Dental examination Z01.20 [place] [address] [id number] [place] [address] 59725- 3198 13 Jan, 2016 Bipolar 1 disorder F31.9 ; Posttraumatic stress disorder F43.10 and Social anxiety disorder F40.10 [place] [id number] [place] [address] 87524- 0713 Jan, Bipolar disorder F31.9 ; Posttraumatic stress disorder F43.10 and Borderline personality disorder F60.3 [place] [address] [place] [address] 31117- 8627 13 Jan, 2016 Sciatica of left side M54.32 [facility] [id number] [place] [address] 22696- 9983 06 Jan, 2016 [place] [address] [place] [id number] [place] [address] 88224- 3559 Dec, [facility] [address] [place] [address] 31968- 7575 Dec, [facility] [id number] [place] [address] 31705422- 5177 Dec, Bipolar disorder F31.9 ; Posttraumatic stress disorder F43.10 and Borderline personality disorder F60.3 [facility] [id number] [place] [address] 76236- 7660 Nov, [facility] [id number] [place] [address] 72725- 2403 Nov, Insomnia, unspecified type G47.00 [facility] [id number] [place] [address] 76631- 6396 Nov, Bipolar disorder F31.9 ; Posttraumatic stress disorder F43.10 and Borderline personality disorder F60.3 [facility] [id number] [place] [address] 30236- 2642 Nov, [facility] [id number] [place] [address] 06261- 2617 Nov, [facility] [id number] [place] [address] 09253- 8791 Oct, Bipolar disorder F31.9 ; Posttraumatic stress disorder F43.10 and Borderline personality disorder F60.3 [facility] [id number] [place] [address] 92191- 4925 Oct, [facility] [id number] [place] [address] 99987- 0690 Oct, Essential (primary) hypertension I10 [facility] [id number] [place] [address] 28633- 3862 September, Bipolar 1 disorder F31.9 ; Posttraumatic stress disorder F43.10 and Social anxiety disorder F40.10 [facility] [address] [place] [address] 95032- 2845 September, Bipolar disorder F31.9 ; Posttraumatic stress disorder F43.10 and Borderline personality disorder F60.3 [facility] [address] [id number] [id number] September, Encounter for dental examination and cleaning without abnormal findings Z01.20 [facility] [address] [address]- 5854 September, [facility] [id number] [place] [address] 74447- 1606 September, [facility] [address] [place] [address] 01838- 2425 Aug, [facility] [id number] [place] [address] 96262- 2539 Aug, Bipolar disorder F31.9 ; Posttraumatic stress disorder F43.10 and Borderline personality disorder F60.3 [facility] [address] [place] [address] 27862- 5664 Aug, [facility] [address] [place] [address] 12365- 1225 Aug, [facility] [address] [place] [address] 50760- 4338 Aug, [facility] [id number] [place] [address] [id number] Jul, Acute nasopharyngitis [common cold] J00 and Other viral agents as the cause of diseases classified elsewhere B97.89 [facility] [address] [place] [address] 32161- 4410 Jul, Chronic pain G89.29 and Allergic rhinitis J30.9 [facility] [id number] [place] [address] 94622- 5839 Jul, Bipolar 1 disorder F31.9 ; Posttraumatic stress disorder F43.10 and Social anxiety disorder F40.10 [facility] [address] [place] [address] 75512- 3596 Jul, Bipolar [address] [facility] [id number] [place] [address] 60630- 3770 16 Jul, 2015 Bipolar disorder F31.9 ; Posttraumatic stress disorder F43.10 and Borderline personality disorder F60.3 [facility] [id number] [place] [address] 38798- 7992 14 Jul, 2015 [facility] [id number] [place] [address] 55229- 2780 14 Jul, 2015 [facility] [id number] [place] [address] [phone]- [phone] 11 Jul, 2015 [facility] [id number] [place] [address] 32792- 6974 10 Jul, [address] [facility] [id number] [place] [address] 79040- 0337 10 Jul, 2015 Chronic pain G89.29 and Encounter for therapeutic drug level monitoring Z51.81 [facility] [id number] [place] [address] 22383- 0290 09 Jul, 2015 Chronic pain G89.29 and Encounter for therapeutic drug level monitoring Z51.81 [facility] [id number] [place] [address] 18833- 5170 08 Jul, 2015 [facility] [id number] [place] [address] [phone]- 2787 19 Jun, 2015 [facility] [id number] [place] [address] [phone]- 3180 19 Jun, 2015 [facility] [id number] [place] [address] [phone]- [phone] [address], [address] [facility] [id number] [place] [address] 65155- 8043 [address] [facility] [id number] [place] [address] 42135- 2682 11 Jun, 2015 High risk medication use V58.69 [facility] [id number] [place] [address] [phone]- 2520 Jun, [facility] [id number] [place] [address] [phone]- 2322 Jun, Bipolar 1 disorder F31.9 ; Overdose T50.901A and Chronic pain G89.29 ST[address] [facility] [id number] [place] [address] 19811- 4539 Jun, Bipolar disorder F31.9 ; Posttraumatic stress disorder F43.10 and Borderline personality disorder F60.3 [facility] [id number] [place] [address] 58621- 9534 Jun, [facility] [address] [address]- 1520 Jun, [facility] [id number] [place] [address] 59583- 3365 Jun, Keloid L91.0 [facility] [id number] [place] [address] 66221- 5390 Jun, [facility] [id number] [place] [address] 03582- 9715 May, [facility] [id number] [place] [address] 76067- 9297 May, [facility] [id number] [place] [address] 31757- 2456 May, Pelvic pain R10.2 [facility] [id number] [place] [address] 23518- 3659 May, [facility] [id number] [place] [address] 04699- 2997 May, Pain of left thumb M79.645 ; Incisional pain R20.8 ; Pelvic pain R10.2 and Essential hypertension I10 [facility] [id number] [place] [address] 22217- 9131 May, [facility] [address] [place] [address] 7338 May, [facility] [id number] [id number] May, Dental examination Z01.20 and Necrosis of pulp K04.1 [facility] [address] [facility] [id number] [address] 5232 Apr, [facility] [address] [facility] [id number] [place] [address] 15491- 3766 Apr, [facility] [address] [facility] [id number] [address]- 3029 Apr, [facility] [address] [facility] [id number] [place] [address] 57053- 6293 Apr, [facility] [address] [id number] [address] 0293 Apr, [facility] [address] [id number], [place] [address]- 2712 Apr, [facility] [address] [id number], [place] [address]- 9528 Apr, [facility] [address] [id number], [place] [address]- 9385 Apr, [facility] [address] [id number], [place] [address]- 0253 Mar, [facility] [place] [facility] [address] [facility] [id number], [place] [address]- 6565 Mar, [facility] [place] [facility] [address] [facility] [id number], [place] [address]- 9771 Mar, [facility] [place] [facility] [address] [facility] [id number], [place] [address]- 3697 Mar, [facility] [place] [facility] [address] [facility] [id number] [address]- 0084 Feb, [facility] [place] [facility] [address] [id number], [place] [address] 7150 Feb, [facility] [address]00565100[place] [address] 6338 Feb, [facility] [address]00565100[place] [address] 5413 Feb, [facility] [address]00565100[place] [address] 6241 Feb, [facility] [id number] [place] [address] 67038- 8086 Feb, [facility] [id number] [place] [address] 38021- 5797 Feb, [facility] [id number] [place] [address] 42571- 7571 Feb, Dermatofibroma of left lower leg D23.72 [facility] [id number] [place] [address] 99636- 8340 Feb, Hematochezia 578.1 ; Low back pain M54.5 ; High risk medication use V58.69 ; Cervicalgia M54.2 and Anxiety F41.9 [facility] [address] [place] [address] [id number] [id number] Feb, Dental examination Z01.20 ; Pulpitis K04.0 and Dental caries, unspecified K02.9 [facility] [address] [place] [address] [id number][place] [id number] Feb, Dental examination Z01.20 [facility] [address] [id number], [place] [address] 0158 30 Jan, 2015 [facility] [address]00565100[place] [address] 5018 Jan, [facility] [address]00565100[place], [place] [address]- 8513 Jan, [facility] [address]00565100[place], [place] [address]- 2401 Jan, [facility] [address] [id number] [place] [address]- 3013 Dec, [facility] [address] [id number] [place] [address]- 8334 Dec, [facility] [address] [id number] [place] [address]- 9009 Dec, [facility] [address] [id number] [place] [address]- 5610 Dec, [facility] [address] [id number] [place] [address]- 0651 Dec, [facility] [address] [id number] [place] [address]- 7427 Dec, [facility] [address] [id number] [place] [address]- 0910 Dec, [facility] [address] [id number], [place] [address]- 9278 Dec, [facility] [address] [facility] [id number][place] [id number] Nov, Encounter for removal of sutures V58.32 [facility] [address] [id number] [place] [address]- 0514 Nov, [facility] [address] [id number], [place] [address]- 7912 Nov, [facility] [address] [id number], [place] [address]- 9568 Nov, [facility] [place] [facility] [address] [id number], [place] [address]- 6486 Nov, [facility] [place] [facility] [address] [id number], [place] [address]- 8125 Nov, [facility] [place] [facility] [address] [id number] [place] [address]- 2992 Nov, [facility] [address]00565100[place], [place] [address]- 3304 Nov, [facility] [address]00565100[place], [place] [address]- 3101 Nov, Dermatofibroma 216.9 [facility] [address]00565100[place], [place] [address]- 8345 Nov, [facility] [address]00565100[place], [place] [address]- [address]7 Nov, [facility] [address]00565100[place], [place] [address]- 1738 Oct, [facility] [address] [id number] [address]- 5564 Oct, Hematochezia 578.1 ; Abscess 682.9 ; GERD (gastroesophageal reflux disease) 530.81 ; Visual disturbance of one eye 368.9 and High risk medication use V58.69 [facility] [address]00565100[place] [address]- 9762 Oct, [facility] [address]00565100[place] [address] 8428 Oct, [facility] [address]00565100[place] [address] 2276 Oct, [facility] [address]00565100[place] [address]- 7894 September, [facility] [address]00565100[place] [address]- 1031 September, [facility] [address] [id number], [place] [address]- 2782 September, [facility] [address]00565100[place], [place] [address]- [address], [facility] [address] [id number], [place] [address]- 9874 September, [facility] [address]00565100[place], [place] [address]- 1167 September, Colon cancer screening V76.51 [facility] [address]65[address] [place] [address]- 1142 September, [facility] [place] [facility] [address] [id number] 5813 Aug, [facility] [place] [facility] [address]65[address] [place] [address]- 4610 Aug, [facility] [place] [facility] [address] [facility] [id number] [place] [address]- 2371 Jul, [facility] [place] [facility] [address]65100[facility] 9985 Jul, [facility] [place] [facility] [address]65[address] [place] [address]- 7519 Jul, [facility] [place] [facility] [address]65[address] [place] [address]- 4762 Jul, [facility] [place] [facility] [address] [id number] [place] [address]- 8821 Jun, [facility] [place] [facility] [address]65[address] [place] [address]- 0963 Jun, [facility] [place] [facility] [address]00565100[place], [place] [address]- 7164 Jun, [facility] [place] [facility] [address]00565100[place], [place] [address]- 8940 Jun, [facility] [place] [facility] [address] [id number], [place] [address]- 2308 Jun, [facility] [place] [facility] [address]65[address] 2294 Jun, [facility] [place] [facility] [address] [id number], [place] [address]- 9307 May, [facility] [place] [facility] [address]005[address], [place] [address]- 2996 May, [facility] [place] [facility] [address] [id number] [place] [address]- 9641 May, [facility] [place] [facility] [address] [id number] [place] [address]- 8917 May, [facility] [place] [facility] [address] [id number] [place] [address]- 2553 May, [facility] [place] [facility] [address] [id number] [place] [address]- 2205 May, [facility] [place] [facility] [address] [id number] [place] [address]- 3481 May, [facility] [place] [facility] [address] [id number] [place] [address]- 5451 May, [facility] [place] [facility] [address] [id number] [place] [address]- 1323 Apr, [facility] [place] [facility] [address] [id number] [place] [address]- 9263 Apr, [facility] [place] [facility] [address] [id number] [place] [address]- 0044 Apr, [facility] [place] [facility] [address] [id number] [place] [address]- 7327 Apr, [facility] [place] [facility] [address] [id number] [place] [address]- 9287 Apr, [facility] [place] [facility] [address] [id number] [place] [address]- 3633 Apr, [facility] [place] [facility] [address] [id number] [place] 8924 Apr, [facility] [place] [facility] [address] [id number] [place] 9142 Apr, [facility] [place] [facility] [address] [id number] [place] [address]- 2137 Mar, [facility] [place] [facility] [address] [id number] [place] [address]- 3066 Mar, [facility] [place] [facility] [address] [id number] [place] [address]- 9369 Mar, [facility] [place] [facility] [address] [id number] [place] [address]- 7970 Mar, [facility] [place] [facility] [address] [id number] [place] [address]- 5381 Mar, [facility] [place] [facility] [address] [id number] [place] [address]- 5032 Mar, [facility] [place] [facility] [address] [id number] [place] [address]- 5870 Mar, [facility] [place] [facility] [address] [id number] [place] [address]- 4688 Mar, [facility] [place] [facility] [address] [id number] [place] [address]- 0909 Mar, [facility] [place] [facility] [address] [id number] [place] [address]- 8171 Mar, [facility] [place] [facility] [address] [id number] [place] [address]- 4210 Feb, [facility] [place] [facility] [address] [id number] [place] [address]- 4495 Feb, [facility] [place] [facility] [address] [id number] [place] [address]- 3052 Jan, [facility] [place] [facility] [address] [id number] [place] [address]- 8219 Jan, [facility] [place] [facility] [address] [id number] [place] [address]- 8423 Jan, [facility] [place] [facility] [address] [id number] [place] [address]- 1329 Jan, [facility] [place] [facility] [address] [id number] [place] [address]- 8842 Dec, [facility] [place] [facility] [address] [id number] [place] [address]- 8129 Dec, [facility] [place] [facility] [address] [id number] [place] [address]- 7861 Dec, [facility] [place] [facility] [address] [id number] [place] [address]- 1822 Dec, [facility] [place] [facility] [address] [id number] [place] [address]- 8932 Dec, [facility] [place] [facility] [address] [id number] [place] [address]- 2982 Dec, [facility] [place] [facility] [address] [id number] [place] [address]- 9290 Nov, [facility] [place] [facility] [address] [id number] [place] [address]- 2894 Nov, [facility] [place] [facility] [address] [id number] [place] [address]- 4908 Oct, [facility] [place] [facility] [address] [id number] [place] [address]- 6033 Oct, [facility] [place] [facility] [address] [id number] [place] [address]- 5526 Oct, [facility] [place] [facility] [address] [id number] [place] [address]- 4400 Oct, [facility] [place] [facility] [address] [id number] [place] [address]- 2795 September, [facility] [place] [facility] [address] [id number] [place] [address]- 0877 September, [facility] [place] [facility] [address] [id number] [place] [address]- 1290 September, [facility] [place] [facility] [address] [id number] [place] [address]- 8877 September, [facility] [place] [facility] [address] [id number] [place] [address]- 5960 September, [facility] [address] [id number] [place] [address]- 2237 September, [facility] [place] [facility] [address] [id number] [place] [address]- 0954 September, [facility] [place] [facility] [address] [id number] [place] [address]- 1771 September, [facility] [place] [facility] [address] [id number] [place] [address]- 6737 Aug, [facility] [place] [facility] [address] [id number] [place] [address]- 1208 Aug, [facility] [place] [facility] [address] [id number] [place] [address]- 4804 Aug, [facility] [place] [facility] [address] [id number] [place] [address]- 1807 Aug, [facility] [place] [facility] [address] [id number] [place] [address]- 1268 Aug, [facility] [place] [facility] [address] [id number] [place] [address]- 0873 Aug, [facility] [place] [facility] [address] [id number] [place] [address]- 4955 Jul, [facility] [place] [facility] [address] [id number] [place] [address]- 8667 Jul, [facility] [place] [facility] [address] [id number] [place] [address]- 9330 Jul, [facility] [place] [facility] [address] [id number] [place] [address]- 8180 Jul, [facility] [place] [facility] [address] [id number] [place] [address]- 3943 Jun, [facility] [place] [facility] [address] [id number] [place] [address]- 1498 Jun, [facility] [place] [facility] [address] [id number] [place] [address]- 1385 Jun, [facility] [address] [id number] [place] [address]- 6170 Jun, [facility] [address] [id number] [place] [address]- 7596 Jun, [facility] [address] [id number] [place] [address]- 7606 Jun, [facility] [address] [id number] [place] [address]- 2784 May, [facility] [address] [id number] [place] [address]- 1178 May, [facility] [address] [id number] [place] [address]- 5080 May, [facility] [address] [id number] [place] [address]- 0710 May, [facility] [address] [id number] [place] [address]- 3794 May, [facility] [address] [id number] [place] [address]- 2955 May, [facility] [address] [id number] [place] [address]- 4244 May, [facility] [address] [id number] [place] [address]- 1806 May, [facility] [address] [id number] [place] [address]- 9201 Apr, [facility] [address] [place] [id number] Apr, [facility] [address] [id number] [place] [address]- 0686 Apr, [facility] [address] [id number] [place] [address]- 2494 Apr, [facility] [address] [id number] [place] [address]- 4604 Apr, [facility] [place] [facility] [address] [id number] [place] [address]- 1546 Apr, [facility] [place] [facility] [address] [id number] [place] [address]- 5009 Apr, [facility] [place] [facility] [address] [id number] [place] [address]- 9616 05 Apr, 2013 [facility] [place] [facility] [address] [id number] [place] [address]- 7884 Apr, [facility] [place] [facility] [address] [id number], [place] [address]- 3995 Mar, [facility] [place] [facility] [address] [id number] [place] [address]- 2913 Mar, [facility] [place] [facility] [address] [id number], [place] [address]- 1050 Mar, [facility] [place] [facility] [address] [id number] [place] [address]- 1120 Mar, [facility] [place] [facility] [address] [id number], [place] [address]- 3429 Mar, [facility] [place] [facility] [address] [id number], [place] [address]- 9239 Feb, [facility] [place] [facility] [address] [id number], [place] [address]- 0672 Feb, [facility] [place] [facility] [address] [id number], [place] [address]- 1797 Feb, [facility] [place] [facility] [address] [id number], [place] [address]- 0737 14 Feb, 2013 [facility] [place] [facility] [address] [id number], [place] [address]- 9571 Jan, [facility] [place] [facility] [address] [id number], [place] [address]- 0876 Jan, [facility] [address] [id number] [place] [address]- 2546 Jan, [facility] [place] [facility] [address] [id number] [place] [address] 2546 Dec, [facility] [place] [facility] [address] [id number], [place] [address]- 2546 Dec, [facility] [place] [facility] [address] [id number], [place] [address]- 2546 Dec, [facility] [address] [id number][place] [id number] Nov, [facility] [address] [facility] [id number][place] [id number] Oct, [facility] [place] [facility] [address] [facility] [id number], [place] [address]- 9256 Oct, [facility] [place] [facility] [address] [id number], [place] [address]- 8786 September, [facility] [place] [facility] [address] [id number] [place] [address]- 4696 September, [facility] [place] [facility] [address] [id number], [place] [address]- 7266 September, [facility] [place] [facility] [address] [id number], [place] [address]- 2546 September, [facility] [place] [facility] [address] [id number], [place] [address]- 2546 September, [facility] [place] [facility] [address] [id number] [place] [address]- 2540 Jul, [facility] [place] [facility] [address] [id number] [place] [address]- 2546 Jul, [facility] [place] [facility] [address] [id number] [place] [address] Jul, [facility] [place] [facility] [address] [id number] [place] [address] Jul, [facility] [address] [id number] [place] [address] Jun, [facility] [place] [facility] [address] [id number] [place] [address] Jun, [facility] [address] [id number] [place] [address] Jun, [facility] [place] [facility] [address] [id number] [place] [address] Jun, [facility] [address] [facility] [id number] [place] [address] May, [facility] [address] [facility] [id number] [place] [address] Mar, [facility] [address] [facility] [id number] [place] [address] Mar, [facility] [address] [id number] [place] [address] Mar, [facility] [address] [facility] [id number] [place] [address] Mar, [facility] [address] [facility] [id number] [place] [address] Mar, [facility] [place] [facility] [address] [facility] [id number] [place] [address] Mar, [facility] [place] [facility] [address] [id number] [place] [address] Mar, [facility] [place] [facility] [address] [facility] [id number] [place] [address] Mar, [facility] [place] [facility] [address] [facility] [id number] [place] [address] Feb, [facility] [place] [facility] [address] [facility] [id number] [place] [address] Feb, [facility] [place] [facility] [address] [id number] [place] [address] Feb, [facility] [place] [facility] [address] [id number] [place] [address] Feb, [facility] [place] [facility] [address] [id number] [place] [address] Feb, [facility] [place] [facility] [address] [id number] [place] [address] Feb, [facility] [place] [facility] [address] [id number] [place] [address] Feb, [facility] [address] [id number] [place] [id number] Jan, [facility] [address] [id number] [place] [id number] Dec, [facility] [address] [id number] [place] [id number] Dec, [facility] [place] [facility] [address] [id number] [place] [address] Nov, [facility] [place] [facility] [address] [facility] [id number] [place] [address] Nov, [facility] [place] [facility] [address] [facility] [id number], [place] [address] Oct, [facility] [place] [facility] [address] [facility] [id number] [place] [address] Jul, [facility] [place] [facility] [address] [id number] [place] [address] Jul, [facility] [place] [facility] [address] [id number] [place] [address] May, [facility] [place] [facility] [address] [facility] [id number] [place] [address] May, [facility] [place] [facility] [address] [id number] [place] [address] Nov, [facility] [address] [id number] [address] Mar, [facility] [id number] [address] Dec, [facility] [id number] [address] Nov, [facility] [id number] [address] Aug, [facility] [id number] [address] Apr, [facility] [id number] [address] Apr, [facility] [id number] [address] Mar, [facility] [id number] [address] Feb, [facility] [id number] [address] September, [facility] [id number], [place] [address] Jun, [facility] [address] [id number], [place] [address] Mar, IMMUNIZATIONS No Known Immunizations SOCIAL HISTORY Never Assessed REASON FOR VISIT nurse question PLAN OF CARE VITAL SIGNS MEDICATIONS Unknown [...] hernia Hospitalization History Went by ambulance to [place] as unresponsive 05/2015 Hospitalization History [place] sent her to [facility] for [facility] psych hold 05/2015
--- OUTSIDE RECORDS SUMMARY | 2018-03-15 10:47 | XMS REPORT ---
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 Name Role Phone HERBERT MCGOWAN Unavailable PROBLEMS Type Condition ICD9-CM Code DIL66-OV Code Onset Dates Condition Status SNOMED Code Problem Psoriasis L40.9 Active 9880960 Problem Relationship problem with family member Z63.8 Active 761751466 Problem Essential hypertension I10 Active 02199775 Problem Anxiety F41.9 Active 78130527 Problem Visual disturbance H53.9 Active 21845192 Problem Rheumatoid arthritis involving multiple sites with positive rheumatoid factor M05.79 Active 702629023 Problem Bilateral low back pain with sciatica, sciatica laterality unspecified M54.40 Active 268397071 Problem Hypokalemia E87.6 Active 16088207 Problem Lumbago with sciatica, left side M54.42 Active 072985133 Problem Other chronic pain G89.29 Active 47414288 Problem 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 Active 716575008 Problem Blindness of right eye H54.40 Active 348071338 Problem Posttraumatic stress disorder F43.10 Active 58220845 Problem Overdose T50.901A Active 64589761 Problem Bipolar disorder F31.9 Active 38883355 Problem Borderline personality disorder F60.3 Active 56936737 Problem Obstructive sleep apnea G47.33 Active 79664024 Problem Acquired hypothyroidism E03.9 Active 400090760 Problem Pelvic pain R10.2 Active 74713110 Problem Chronic pain G89.29 Active 53249618 Problem Gastro-esophageal reflux disease without esophagitis K21.9 Active 586388704 Problem Anemia due to other cause, not classified D64.89 Active 655581532 Problem Social anxiety disorder F40.10 Active 77846022 Problem Morbid obesity, unspecified obesity type E66.01 Active 430455411 ALLERGIES No Information ENCOUNTERS Encounter Location Date Diagnosis [facility] [address] [address] Feb, [facility] [address] [address] 6868 Feb, [facility] [address] [address] 6695 Feb, [facility] [address] [place] [address] 09264- 9071 Dec, Bipolar disorder F31.9 ; Posttraumatic stress disorder F43.10 and Borderline personality disorder F60.3 [place] [address] [place] [address] 77437- 9138 Dec, 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 ; Anemia due to other cause, not classified D64.89 ; Rheumatoid arthritis involving multiple sites with positive rheumatoid factor M05.79 ; 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 ; Dysuria R30.0 ; Urinary tract infection without hematuria, site unspecified N39.0 and Blindness of right eye H54.40 [place] [address] [address] 3217 Dec, [place] [address] [place] [address] 95790- 3337 Dec, [place] [address] [facility] [id number] [id number] Dec, Dental examination Z01.20 [place] [address] [address] 6730 Nov, Bipolar disorder F31.9 ; Posttraumatic stress disorder F43.10 and Borderline personality disorder F60.3 [facility] [address] [address] 5[address] Nov, Rheumatoid arthritis involving multiple sites with positive rheumatoid factor M05.79 ; Dysuria R30.0 and Blindness of right eye H54.40 [place] [id number] [address] 8946 Nov, Bipolar disorder F31.9 ; Posttraumatic stress disorder F43.10 ; Social anxiety disorder F40.10 and Relationship problem with family member Z63.8 [place] [address] [place] [address] 64466- 1038 Nov, [facility] [address] [place] [address] 93970- 2235 Nov, [facility] [address] [id number] [place] [address] 56380- 3583 Nov, 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 ; Adverse effect of antineoplastic and immunosuppressive drugs, initial encounter T45.1X5A ; Anemia , unspecified D64.9 and BMI 40.0-44.9, adult Z68.41 [place] [address] [place] [address] 41647- 8004 Nov, Anemia due to other cause, not classified D64.89 [place] [address] [place] [address] 37952- 4566 Oct, Adverse effect of drug, initial encounter T50.905A and Acute anemia D64.9 [place] [address] [place] [address] 52454- 7037 Oct, Anemia due to other cause, not classified D64.89 ; Dysuria R30.0 and Urinary tract infection without hematuria, site unspecified N39.0 [place] [address] [address]- 5881 Oct, [place] [address] [place] [address] 11481- 9991 Oct, [place] [id number] [address]- 1319 Oct, 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 [place] [id number] [id number] Oct, [place] [address] [place] [address] 46157- 1695 Oct, [place] [address] [place] [address] 04086- 1020 Oct, [facility] [id number] [place] [address] 51106- 1353 Oct, Bipolar disorder F31.9 ; Posttraumatic stress disorder F43.10 and Borderline personality disorder F60.3 [place] [address] [place] [address] [id number] [place] [address] 29662- 4677 Oct, Rheumatoid arthritis involving multiple sites with positive rheumatoid factor M05.79 ; 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 and Anxiety F41.9 [place] [address] [place] [address] [id number] [place] [address] 37214- 4039 Oct, [place] [address] [place] [id number] [place] [address] 56068- 6415 September, 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 [place] [address] [place] [id number] [place] [address] 01448- 8327 September, Bipolar disorder F31.9 ; Posttraumatic stress disorder F43.10 and Borderline personality disorder F60.3 [place] [address] [place] [id number] [place] [address] 54049- 9362 Aug, BMI 40.0-44.9, adult Z68.41 ; Bipolar disorder F31.9 ; Posttraumatic stress disorder F43.10 and Social anxiety disorder F40.10 [place] [address] [place] [address] [id number] [place] [address] 31074- 5116 Aug, Bipolar disorder F31.9 ; Posttraumatic stress disorder F43.10 and Borderline personality disorder F60.3 [place] [address] [place] [address] 15196- 4669 Aug, 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 [place] [address] [place] [address] [id number] [place] [address] 43071- 0624 Jul, Bipolar disorder F31.9 ; Posttraumatic stress disorder F43.10 and Borderline personality disorder F60.3 [place] [address] [place] [address] [id number] [place] [address] 81717- 0978 Jul, [facility] [id number] [place] [address] 36608- 1601 Jun, Bipolar disorder F31.9 ; Posttraumatic stress disorder F43.10 and Borderline personality disorder F60.3 [facility] [id number] [place] [address] 28325- 9220 Jun, Blindness of right eye H54.40 and Acquired hypothyroidism E03.9 [facility] [id number] [place] [address] 01432- 4893 Jun, [facility] [id number] [place] [address] 66275- 3303 May, Posttraumatic stress disorder F43.10 ; Social anxiety disorder F40.10 and Bipolar disorder F31.9 [facility] [id number] [place] [address] 99580- 8280 May, Bipolar disorder F31.9 ; Posttraumatic stress disorder F43.10 and Borderline personality disorder F60.3 [facility] [id number] [place] [address] 40265- 2028 May, [facility] [id number] [place] [address] 77830- 5900 May, [facility] [address] [place] [address] 45686- 7685 Apr, Bipolar disorder F31.9 ; Posttraumatic stress disorder F43.10 and Borderline personality disorder F60.3 [place] [id number] [id number] Apr, [facility] [id number] [place] [address] 69992- 6764 Apr, [facility] [address] [place] [address] 97749- 2594 Mar, Hydradenitis L73.2 [facility] [id number] [place] [address] 40772- 2569 Mar, Lumbago with sciatica, left side M54.42 ; Other chronic pain G89.29 ; Morbid obesity, unspecified obesity type E66.01 ; Hydradenitis L73.2 and BMI 40.0-44.9, adult Z68.41 [place] [address] [place] [address] 75137- 3617 07 Mar, 2017 Bipolar disorder F31.9 ; Posttraumatic stress disorder F43.10 and Borderline personality disorder F60.3 [place] [address] [place] [address] [id number] [place] [address] 21922- 3697 07 Mar, 2017 Social anxiety disorder F40.10 ; Bipolar disorder F31.9 and Relationship problem with family member Z63.8 [place] [address] [place] [address] [id number] [place] [address] 15192- 3839 Mar, [place] [address] [id number] [id number] Mar, Dental examination Z01.20 [place] [address] [place] [id number] [place] [address] 52836- 4647 02 Mar, 2017 [place] [address] [place] [id number] [place] [address] 21599- 1798 10 Feb, 2017 Bipolar disorder F31.9 ; Posttraumatic stress disorder F43.10 and Borderline personality disorder F60.3 [facility] [address] [id number] Feb, [place] [address] [place] [id number] [place] [address] 05239- 2095 14 Jan, 2017 Bipolar disorder F31.9 ; Posttraumatic stress disorder F43.10 and Borderline personality disorder F60.3 [facility] [address] [id number] [id number] Jan, [place] [address] [place] [address] 75452- 3354 Jan, [place] [id number] [place] [address] [id number] Jan, [place] [address] [place] [id number] [address]- 5400 Dec, Bipolar disorder F31.9 ; Posttraumatic stress disorder F43.10 and Borderline personality disorder F60.3 [place] [address] [address]- 8542 Dec, [facility] [address] [address]- 3814 Dec, [place] [id number] [id number] Dec, [place] [address] [place] [address] 79361- 8740 Nov, Bipolar 1 disorder F31.9 ; Posttraumatic stress disorder F43.10 and Social anxiety disorder F40.10 [place] [address] [place] [address] 23898- 9042 Nov, Bipolar disorder F31.9 ; Posttraumatic stress disorder F43.10 and Borderline personality disorder F60.3 [place] [address] [address]- 2090 Nov, Morbid obesity, unspecified obesity type E66.01 [place] [address] [address]- 8307 Nov, [address] [id number] [id number] Oct, Encounter for dental examination and cleaning without abnormal findings Z01.20 [place] [address] [address]- 4861 15 Oct, 2016 Morbid obesity, unspecified obesity type E66.01 and Acute seasonal allergic rhinitis due to pollen J30.1 [place] [address] [address]- 5032 08 Oct, 2016 Bipolar disorder F31.9 ; Posttraumatic stress disorder F43.10 and Borderline personality disorder F60.3 [place] [address] [place] [address] 46943- 4351 September, Morbid obesity, unspecified obesity type E66.01 and Psoriasis L40.9 [place] [address] 111828- 2164 September, Bipolar disorder F31.9 ; Posttraumatic stress disorder F43.10 and Borderline personality disorder F60.3 [place] [address] 88003- 9043 September, Chronic pain G89.29 [place] [address] 56453- 2343 Aug, Other acute nonsuppurative otitis media of right ear H65.191 and Morbid obesity, unspecified obesity type E66.01 [place] [address] 46352- 3190 Aug, Bipolar 1 disorder F31.9 ; Posttraumatic stress disorder F43.10 and Social anxiety disorder F40.10 [place] [address] [place] [id number] [place] [address] 59254- 7878 Aug, Bipolar disorder F31.9 ; Posttraumatic stress disorder F43.10 and Borderline personality disorder F60.3 [place] [address] [place] [id number] [place] [address] 13085- 1482 Jul, Morbid obesity due to excess calories E66.01 ; Gastro- esophageal reflux disease without esophagitis K21.9 and Chronic pain G89.29 [place] [address] [place] [id number] [place] [address] 09845- 2853 Jul, Morbid obesity due to excess calories E66.01 [place] [address] 35906- 8717 Jul, [place] [address] 75499- 7096 Jul, [place] [address] [place] [id number] [place] [address] 80414- 3515 Jul, Morbid obesity due to excess calories E66.01 [facility] [address] [address]- 4795 02 Jul, 2016 Bipolar disorder F31.9 ; Posttraumatic stress disorder F43.10 and Borderline personality disorder F60.3 [facility] [address] [address]- 2686 16 Jun, 2016 [facility] [address] [place] [id number] [place] [address] 98292- 5406 15 Jun, 2016 Morbid obesity due to excess calories E66.01 [facility] [address] [place] [address] 72731- 7800 Jun, [facility] [address] [place] [id number] [place] [address] 62812- 2106 09 Jun, 2016 Morbid obesity, unspecified obesity type E66.01 [facility] [address] [place] [address] 51053- 0231 03 Jun, 2016 Bipolar disorder F31.9 ; Posttraumatic stress disorder F43.10 and Borderline personality disorder F60.3 [facility] [address] [place] [address] 61167- 0615 03 Jun, 2016 [facility] [address] [address]- 6374 Jun, [facility] [address] [place] [address] 43782- 2563 02 Jun, 2016 Acquired hypothyroidism E03.9 and Morbid obesity due to excess calories E66.01 [facility] [address] [address]- 7811 May, Bipolar disorder F31.9 ; Posttraumatic stress disorder F43.10 and Borderline personality disorder F60.3 [facility] [address] [address]- 7366 Apr, Bipolar 1 disorder F31.9 ; Posttraumatic stress disorder F43.10 and Social anxiety disorder F40.10 [facility] [id number] [id number] 12 Apr, 2016 Encounter for dental examination Z01.20 [facility] [address] [place] [address] 73543- 7185 08 Apr, 2016 [facility] [address] [place] [address] 71433- 5440 08 Apr, 2016 Acquired hypothyroidism E03.9 [facility] [address] [place] [address] [id number] [place] [address] 02158- 9672 Apr, Acquired hypothyroidism E03.9 [facility] [address] [place] [id number] [place] [address] 41775- 7464 Apr, Bipolar disorder F31.9 ; Posttraumatic stress disorder F43.10 and Borderline personality disorder F60.3 [facility] [address] [place] [address] [id number] [place] [address] 40998- 9159 Apr, Acquired hypothyroidism E03.[address] [id number] [id number] Mar, Encounter for dental examination and cleaning without abnormal findings Z01.20 [facility] [address] [place] [id number] [place] [address] 84609- 0957 08 Mar, 2016 [facility] [address] [place] [address] [id number] [place] [address] 03440- 7855 Mar, Bipolar disorder F31.9 ; Posttraumatic stress disorder F43.10 and Borderline personality disorder F60.3 [facility] [address] [place] [address] 33803- 2283 03 Mar, 2016 Essential (primary) hypertension I10 [facility] [address] [place] [id number] [place] [address] 11883- 6541 Feb, [facility] [address] [place] [id number] [place] [address] 74853- 6513 14 Feb, 2016 [facility] [address] [place] [address] [id number] [place] [address] 35943- 9704 11 Feb, 2016 Pelvic pain R10.2 ; Lipid screening Z13.220 ; Fatigue, unspecified type R53.83 and Weight gain R63.5 [facility] [address] [place] [address] [id number] [place] [address] 50783- 4057 Feb, Bipolar disorder F31.9 ; Posttraumatic stress disorder F43.10 and Borderline personality disorder F60.3 [facility] [address] [address] [id number] [place] [address] 16833- 1553 Feb, [facility] [address] 83290- 5629 Feb, [facility] [address] [place] [address] [id number] [place] [address] 84747- 8617 30 Jan, 2016 Obstructive sleep apnea syndrome G47.33 [facility] [address] [place] [id number] [place] [address] 30536- 7758 26 Jan, [address] [id number] [place] [address] [id number] 19 Jan, 2016 Dental examination Z01.20 [facility] [address] [id number] [place] [address] 52877- 2262 13 Jan, 2016 Bipolar 1 disorder F31.9 ; Posttraumatic stress disorder F43.10 and Social anxiety disorder F40.10 [facility] [address] [place] [id number] [place] [address] 02642- 2612 Jan, Bipolar disorder F31.9 ; Posttraumatic stress disorder F43.10 and Borderline personality disorder F60.3 [facility] [address] [place] [address] [id number] [place] [address] 58190- 8716 Jan, Sciatica of left side M54.32 [facility] [address] [place] [id number] [place] [address] 72386- 5017 Jan, [facility] [address] [place] [id number] [place] [address] 90275- 3906 Dec, [facility] [address] [place] [id number] [place] [address] 27922- 8360 Dec, [facility] [address] [address]- 5560 Dec, Bipolar disorder F31.9 ; Posttraumatic stress disorder F43.10 and Borderline personality disorder F60.3 [facility] [address] [address]- 4900 Nov, [facility] [address] [place] [address] 81406- 1069 Nov, Insomnia, unspecified type G47.00 [facility] [address] [place] [address] 92264- 1473 Nov, Bipolar disorder F31.9 ; Posttraumatic stress disorder F43.10 and Borderline personality disorder F60.3 [facility] [address] [place] [address] 42094- 4553 Nov, [facility] [address] [place] [id number] [place] [address] 17285- 7202 Nov, [facility] [address] [place] [address] 38001- 6991 Oct, Bipolar disorder F31.9 ; Posttraumatic stress disorder F43.10 and Borderline personality disorder F60.3 [facility] [address] [address]- 1097 Oct, [place] [address] [place] [address] 26566- 9634 Oct, Essential (primary) hypertension I10 [facility] [address] [place] [address] 77331- 1336 September, Bipolar 1 disorder F31.9 ; Posttraumatic stress disorder F43.10 and Social anxiety disorder F40.10 [facility] [address] [address]- 4919 September, Bipolar disorder F31.9 ; Posttraumatic stress disorder F43.10 and Borderline personality disorder F60.[address] [id number] [id number] September, Encounter for dental examination and cleaning without abnormal findings Z01.20 [place] [address] [place] [address] 67377- 3873 September, [facility] [address] [place] [id number] [place] [address] [id number]- 1324 September, [place] [address] [place] [id number] [place] [address] 75138- 8374 Aug, [place] [address] [place] [id number] [place] [address] 22307- 0719 Aug, Bipolar disorder F31.9 ; Posttraumatic stress disorder F43.10 and Borderline personality disorder F60.3 [place] [id number] [place] [address] 29629- 2960 Aug, [place] [id number] [place] [address] 43740- 7741 Aug, [place] [address] [place] [id number] [place] [address] 30679- 8852 Aug, [facility] [id number] [place] [address] [id number] Jul, Acute nasopharyngitis [common cold] J00 and Other viral agents as the cause of diseases classified elsewhere B97.89 [address] [place] [address] 85082- 9035 Jul, Chronic pain G89.29 and Allergic rhinitis J30.9 [address] [place] [address] 18431- 2922 Jul, Bipolar 1 disorder F31.9 ; Posttraumatic stress disorder F43.10 and Social anxiety disorder F40.10 [place] [id number] [place] [address] 20118- 7845 Jul, Bipolar 1 disorder F31.9 [place] [id number] [place] [address]2929- 3133 Jul, Bipolar disorder F31.9 ; Posttraumatic stress disorder F43.10 and Borderline personality disorder F60.3 [facility] [id number] [address] 14 Jul, 2015 [facility] [id number] [place] [id number] 2546 14 Jul, 2015 [facility] [address] [place] [id number] [place] [address] 87622- 9446 11 Jul, 2015 [facility] [id number] [place] [address] [id number] 2546 10 Jul, 2015 Anxiety F41.9 [facility] [id number] [place] [address] 16263- 8929 10 Jul, 2015 Chronic pain G89.29 and Encounter for therapeutic drug level monitoring Z51.81 [facility] [id number] [place] [address] 52087- 9941 09 Jul, 2015 Chronic pain G89.29 and Encounter for therapeutic drug level monitoring Z51.81 [facility] [id number] [place] [address] 83296- 3089 08 Jul, 2015 [facility] [id number] [place] [address] 19100- 4865 Jun, [facility] [id number] [place] [address] 72627- 4999 Jun, [facility] [id number] [place] [address] 60388 2546 15 Jun, 2015 [facility] [id number] [place] [address] 29193- 2546 15 Jun, 2015 [facility] [id number] [place] [address] 48201- 1460 Jun, High risk medication use V58.69 [facility] [id number] [place] [address] 41898- 9406 09 Jun, 2015 [facility] [id number] [place] [address] 91866- 3212 Jun, Bipolar 1 disorder F31.9 ; Overdose T50.901A and Chronic pain G89.29 [facility] [id number] [place] [address] 90965- 6961 Jun, Bipolar disorder F31.9 ; Posttraumatic stress disorder F43.10 and Borderline personality disorder F60.3 [facility] [id number] [place] [address] 71995- 8076 Jun, [facility] [id number] [place] [address] 89052- 0061 Jun, [facility] [id number] [place] [address] 41320- 7799 Jun, Keloid L91.0 [facility] [id number] [place] [address] 31924- 3788 Jun, [facility] [id number] [place] [address] 72553- 7950 May, [facility] [id number] [place] [address] 76865- 0316 May, [facility] [id number] [place] [address] 11208- 7026 May, Pelvic pain R10.2 [facility] [id number] [place] [address] 19770- 4752 May, [facility] [id number] [place] [address] 15622- 7237 May, Pain of left thumb M79.645 ; Incisional pain R20.8 ; Pelvic pain R10.2 and Essential hypertension I10 [facility] [id number] [place] [address] 03383- 7419 May, [facility] [id number] [place] [address] 19568- 4761 May, [facility] [address] [id number] [place] [id number] May, Dental examination Z01.20 and Necrosis of pulp K04.1 [facility] [address] [address]- 3387 Apr, [facility] [address]005[address] [address]- 9802 Apr, [facility] [id number] [address]- 5228 Apr, [facility] [address] [id number] 2766 Apr, [facility] [address] [address]- 6859 Apr, [facility] [address]005[address] [address]- 9845 Apr, [facility] [address] [address]- 1591 Apr, [facility] [address] [address]- 8436 Apr, [facility] [address] [address]- 7640 Mar, [facility] [address] [address]- 0999 Mar, [facility] [address] [address]- 9905 Mar, [facility] [place] [facility] [address] [id number] [address]- 0000 Mar, [facility] [address] [address]- 4154 Feb, [facility] [place] [facility] [address] [id number] [address]- 2099 Feb, [facility] [address] [address]- 7866 Feb, [facility] [address] [address]- 2118 Feb, [facility] [address] [address]- 6087 Feb, [facility] [address] [address]- 5936 Feb, [facility] [id number] [place] [address] 71600- 1046 Feb, [facility] [id number] [place] [address] 66040- 6601 Feb, Dermatofibroma of left lower leg D23.72 [facility] [address] [address]- 3477 Feb, Hematochezia 578.1 ; Low back pain M54.5 ; High risk medication use V58.69 ; Cervicalgia M54.2 and Anxiety F41.[address] [id number] [id number] Feb, Dental examination Z01.20 ; Pulpitis K04.0 and Dental caries, unspecified K02.[address] [id number] [id number] Feb, Dental examination Z01.20 [facility] [address] [address]- 7044 30 Jan, 2015 [facility] [address]005[address] [address]- 0460 Jan, [facility] [address]005[address]100[place] [address]- 2756 Jan, [facility] [address]00565[address] [address]- 3908 Jan, [facility] [address]005[address]100[place] [address]- 5946 Dec, [facility] [address] [id number] [place] [address]- 4716 Dec, [facility] [address] [id number] [place] [address]- 6360 Dec, [facility] [address] [id number] [place] [address]- 6615 Dec, [facility] [address] [id number] [place] [address]- 6003 Dec, [facility] [address] [id number] [place] [address]- 7723 Dec, [facility] [address] [id number] [place] [address]- 6713 Dec, [facility] [address] [id number] [place] [address]- 2918 Dec, [facility] [address] [id number] [id number] Nov, Encounter for removal of sutures V58.32 [facility] [address] [id number] [place] [address]- 6946 Nov, [facility] [address] [id number] [place] [address]- 1505 Nov, [facility] [address] [id number] [place] [address]- 9280 Nov, [facility] [place] [facility] [address] [id number] [place] [address]- 9763 Nov, [facility] [place] [facility] [address] [id number] [place] [address]- 0663 Nov, [facility] [place] [facility] [address] [id number] [place] [address]- 7533 Nov, [facility] [place] [facility] [address] [id number] [place] [address]- 8619 Nov, [facility] [place] [facility] [address] [address]- 0005 Nov, Dermatofibroma 216.9 [facility] [address]00565[address] [address]- 3017 Nov, [facility] [address]65[address] [address]- 9992 Nov, [facility] [address]65[address] [address]- 3994 Oct, [facility] [address]00565[address] [address]- 6955 Oct, Hematochezia 578.1 ; Abscess 682.9 ; GERD (gastroesophageal reflux disease) 530.81 ; Visual disturbance of one eye 368.9 and High risk medication use V58.69 [facility] [address]00565[address] [address]- 1381 Oct, [facility] [address]65[address] [address]- 8321 Oct, [facility] [address]00565[address] [address]- 9596 Oct, [facility] [address]00565100[place] [address]- 1931 September, [facility] [address]00565[address] [address]- 9042 September, [facility] [address] [address]- 5055 September, [facility] [address]00565[address] [address]- 1787 September, [facility] [address] 7719 September, [facility] [address] [id number] [address]- 5342 September, Colon cancer screening V76.51 [facility] [address] [id number] [address]- 2589 September, [facility] [place] [facility] [address] [id number] [place] [address]- 0098 Aug, [facility] [place] [facility] [address] [id number] [place] [address]- 1699 Aug, [facility] [place] [facility] [address] [id number] [place] [address]- 9531 Jul, [facility] [place] [facility] [address] [id number] [place] [address]- 0629 Jul, [facility] [place] [facility] [address] [id number] [place] [address]- 0212 Jul, [facility] [place] [facility] [address] [facility] [id number] [place] [address]- 5147 Jul, [facility] [place] [facility] [address] [id number] [place] [address]- 8878 Jun, [facility] [place] [facility] [address] [id number] [place] [address]- 0913 Jun, [facility] [place] [facility] [address] [id number] [place] [address]- 9674 Jun, [facility] [place] [facility] [address] [facility] [id number] [place] [address]- 1822 Jun, [facility] [place] [facility] [address] [id number] [place] [address]- 4701 Jun, [facility] [place] [facility] [address] [id number] [place] [address]- 9401 Jun, [facility] [place] [facility] [address] [id number] [place] [address]- 0593 May, [facility] [place] [facility] [address] [id number] [place] [address]- 2737 May, [facility] [place] [facility] [address] [id number] [place] [address]- 5146 May, [facility] [place] [facility] [address] [id number] [place] [address]- 3777 May, [facility] [place] [facility] [address] [id number] [place] [address]- 6378 May, [facility] [place] [facility] [address] [id number] [place] [address]- 7537 May, [facility] [place] [facility] [address] [id number] [place] [address]- 9068 May, [facility] [place] [facility] [address] [id number] [place] [address]- 1613 May, [facility] [place] [facility] [address] [id number] [place] [address]- 0320 Apr, [facility] [place] [facility] [address] [id number] [place] [address]- 5080 Apr, [facility] [place] [facility] [address] [id number] [place] [address]- 4870 Apr, [facility] [place] [facility] [address] [id number] [place] [address]- 4281 Apr, [facility] [place] [facility] [address] [id number] [place] [address]- 1776 Apr, [facility] [place] [facility] [address] [id number] [place] [address]- 9814 Apr, [facility] [place] [facility] [address] [id number] [place] [address]- 9590 Apr, [facility] [place] [facility] [address] [id number] [place] [address]- 3271 Apr, [facility] [place] [facility] [address] [id number] [place] [address]- 2339 Mar, [facility] [place] [facility] [address] [id number] [place] [address]- 9976 Mar, [facility] [place] [facility] [address] [id number] [place] [address]- 9257 Mar, [facility] [place] [facility] [address] [id number] [place] [address]- 2154 Mar, [facility] [place] [facility] [address] [id number] [place] [address]- 1683 Mar, [facility] [place] [facility] [address] [id number] [place] [address]- 8059 Mar, [facility] [place] [facility] [address] [id number] [place] [address]- 4033 Mar, [facility] [place] [facility] [address] [id number] [place] [address]- 7008 Mar, [facility] [place] [facility] [address] [id number] [place] [address]- 2449 Mar, [facility] [place] [facility] [address] [id number] [place] [address]- 5133 Mar, [facility] [place] [facility] [address] [id number] [place] [address]- 4855 Feb, [facility] [place] [facility] [address] [id number] [place] [address]- 9317 Feb, [facility] [place] [facility] [address] [id number] [place] [address]- 2254 Jan, [facility] [place] [facility] [address] [id number] [place] [address]- 7214 Jan, [facility] [place] [facility] [address] [id number] [place] [address]- 3243 Jan, [facility] [place] [facility] [address] [id number] [place] [address]- 9594 Jan, [facility] [place] [facility] [address] [id number] [place] [address]- 7401 Dec, [facility] [place] [facility] [address] [id number] [place] [address]- 9556 Dec, [facility] [place] [facility] [address] [id number] [place] [address]- 5968 Dec, [facility] [place] [facility] [address] [id number] [place] [address]- 6247 Dec, [facility] [place] [facility] [address] [id number] [place] [address]- 2168 Dec, [facility] [place] [facility] [address] [id number] [place] [address]- 4926 Dec, [facility] [place] [facility] [address] [id number] [place] [address]- 9642 Nov, [facility] [place] [facility] [address] [id number] [place] [address]- 8677 Nov, [facility] [place] [facility] [address] [id number] [place] [address]- 3796 Oct, [facility] [place] [facility] [address] [id number] [place] [address]- 4107 Oct, [facility] [place] [facility] [address] [id number] [place] [address]- 1915 Oct, [facility] [place] [facility] [address] [id number] [place] [address]- 8390 Oct, [facility] [place] [facility] [address] [id number] [place] [address]- 8678 September, [facility] [place] [facility] [address] [id number] [place] [address]- 9074 September, [facility] [place] [facility] [address] [id number] [place] [address]- 1129 September, [facility] [place] [facility] [address] [id number] [place] [address]- 9761 September, [facility] [place] [facility] [address] [id number] [place] [address]- 4601 September, [facility] [place] [facility] [address] [id number] [place] [address]- 5733 September, [facility] [address] [id number] [place] [address]- 8257 September, [facility] [place] [facility] [address] [id number] [place] 5826 September, [facility] [place] [facility] [address] [id number] [place] [address]- 1722 Aug, [facility] [place] [facility] [address] [id number] [place] [address]- 4945 Aug, [facility] [place] [facility] [address] [id number] [place] [address]- 3008 Aug, [facility] [place] [facility] [address] [id number] [place] [address]- 5586 Aug, [facility] [place] [facility] [address] [facility] [id number] [place] [address]- 8865 Aug, [facility] [place] [facility] [address] [id number] [place] [address]- 1066 Aug, [facility] [place] [facility] [address] [id number] [place] [address]- 9924 Jul, [facility] [place] [facility] [address] [facility] [id number] [place] [address]- 1169 Jul, [facility] [place] [facility] [address] [id number] [place] [address]- 5053 Jul, [facility] [place] [facility] [address] [facility] [id number] [place] [address]- 5068 Jul, [facility] [place] [facility] [address] [id number] [place] [address]- 2548 Jun, [facility] [place] [facility] [address] [id number] [place] [address]- 6083 Jun, [facility] [place] [facility] [address] [facility] [id number] [place] [address]- 3188 Jun, [facility] [place] [facility] [address] [id number] [place] [address]- 6943 Jun, [facility] [address] [id number] [place] [address]- 5959 Jun, [facility] [address] [id number] [place] [address]- 1216 Jun, [facility] [address] [id number] [place] [address]- 8162 May, [facility] [address] [id number] [place] [address]- 0251 May, [facility] [address] [id number] [place] [address]- 2513 May, [facility] [address] [id number] [place] [address]- 8601 May, [facility] [address] [id number] [place] [address]- 5112 May, [facility] [address] [id number] [place] [address]- 5967 May, [facility] [address] [id number] [place] [address]- 9644 May, [facility] [address] [id number] [place] [address]- 2325 May, [facility] [address] [id number] [place] [address]- 1432 Apr, [facility] [place] [id number] Apr, [facility] [address] [id number] [place] [address]- 9096 Apr, [facility] [address] [id number] [place] [address]- 2546 Apr, [facility] [address] [id number] [place] [address]- 6381 Apr, [facility] [place] [facility] [address] [id number] [place] [address]- 9113 Apr, [facility] [place] [facility] [address] [id number] [place] [address]- 8630 Apr, [facility] [place] [facility] [address] [id number] [place] [address]- 5616 Apr, [facility] [place] [facility] [address] [id number] [place] [address]- 8644 Apr, [facility] [place] [facility] [address] [id number] [place] [address]- 0141 Mar, [facility] [place] [facility] [address] [id number] [place] [address]- 0413 Mar, [facility] [place] [facility] [address] [id number] [place] [address]- 5634 Mar, [facility] [place] [facility] [address] [id number] [place] [address]- 0[address] Mar, [facility] [place] [facility] [address] [id number] [place] [address] Mar, [facility] [place] [facility] [address] [id number] [place] [address] Feb, [facility] [place] [facility] [address] [id number] [place] [address] Feb, [facility] [place] [facility] [address] [id number] [place] [address] 14 Feb, 2013 [facility] [place] [facility] [address] [id number] [place] [address] 14 Feb, 2013 [facility] [place] [facility] [address] [id number] [place] [address] 25 Jan, 2013 [facility] [place] [facility] [address] [id number] [place] [address] 24 Jan, 2013 [facility] [place] [facility] [address] [id number] [place] [address] Jan, [facility] [address] [id number] [place] [address] Dec, [facility] [place] [facility] [address] [facility] [id number] [place] [address] Dec, [facility] [address] [id number] [place] [address] Dec, [facility] [address] [facility] [id number][place] [id number] Nov, [facility] [address] [facility] [id number] [place] [id number] Oct, [facility] [place] [facility] [address] [id number] [place] [address] Oct, [facility] [place] [facility] [address] [facility] [id number] [place] [address] September, [facility] [place] [facility] [address] [id number] [place] [address] September, [facility] [place] [facility] [address] [id number] [place] [address] September, [facility] [place] [facility] [address] [facility] [id number] [place] [address] September, [facility] [place] [facility] [address] [id number] [place] [address] September, [facility] [place] [facility] [address] [id number] [place] [address] Jul, [facility] [place] [facility] [address] [id number] [place] [address] Jul, [facility] [place] [facility] [address] [id number] [place] [address] Jul, [facility] [place] [facility] [address] [id number] [place] [address] Jul, [facility] [place] [facility] [address] [id number] [place] [address] Jun, [facility] [address] [id number] [place] [address] Jun, [facility] [place] [facility] [address] [id number] [place] [address] Jun, 2012 [facility] [address] [id number] [place] [address] Jun, [facility] [place] [facility] [address] [id number] [place] [address] May, [facility] [address] [id number] [place] [address] Mar, [facility] [address] [id number] [place] [address] Mar, [facility] [address] [id number] [place] [address] Mar, [facility] [address] [id number] [place] [address] Mar, [facility] [place] [facility] [address] [facility] [id number] [place] [address] Mar, [facility] [address] [facility] [id number] [place] [address] Mar, [facility] [place] [facility] [address] [id number] [place] [address] 254 Mar, [facility] [place] [facility] [address] [id number] [place] [address] Mar, [facility] [place] [facility] [address] [facility] [id number] [place] [address] Feb, [facility] [place] [facility] [address] [id number] [place] [address] Feb, [facility] [place] [facility] [address] [id number] [place] [address] Feb, [facility] [address] [id number] [place] [address] Feb, [facility] [place] [facility] [address] [id number] [place] [address] Feb, [facility] [place] [facility] [address] [id number] [place] [address] Feb, [facility] [address] [id number] [place] [address]- [address] Feb, [facility] [address] [id number] [place] [id number] Jan, [facility] [address] [id number] [place] [id number] Dec, [facility] [address] [id number] [place] [id number] Dec, [facility] [place] [facility] [address] [id number] [place] [address] Nov, [facility] [place] [facility] [address] [id number] [place] [address]- [address] Nov, [facility] [place] [facility] [address] [facility] [id number] [place] [address] Oct, [facility] [place] [facility] [address] [facility] [id number] [place] [address] Jul, [facility] [place] [facility] [address] [id number] [place] [address]- [address]46 Jul, [facility] [place] [facility] [address] [id number] [place] [address]- [address] May, [facility] [place] [facility] [address] [id number] [place] [address] May, [facility] [place] [facility] [address] [facility] [facility] [id number] [place] [address] Nov, [facility] [place] [facility] [address] [id number] [address] Mar, [facility] [address] [id number] [address] Dec, [facility] [id number] [address] Nov, [facility] [id number] [address] Aug, [facility] [id number] [address] Apr, [facility] [id number] [address] Apr, [facility] [id number] [address] Mar, [facility] [id number] [address] Feb, [facility] [id number] [address] September, [facility] [id number] [address] Jun, [facility] [address] [id number] [address] Mar, IMMUNIZATIONS No Known Immunizations SOCIAL HISTORY Never Assessed REASON FOR VISIT Care management monitoring note PLAN OF CARE VITAL SIGNS MEDICATIONS Unknown [...] hernia Hospitalization History Went by ambulance to [place] as unresponsive 05/2015 Hospitalization History [place] sent her to [facility] for a psych hold 05/2015
--- OUTSIDE RECORDS SUMMARY | 2018-03-15 10:48 | XMS REPORT ---
Author Author ALEJANDRO KORINA Organization [facility] [place] Address [address] [place] [address] Care Team Providers Care Polisher And Sander Name Role Phone JANYANNE-MARIE KORINA Unavailable PROBLEMS Type Condition ICD9-CM Code [id number] Code Onset Dates Condition Status SNOMED Code Problem Psoriasis L40.9 Active 3066616 Problem Relationship problem with family member Z63.8 Active 920659962 Problem Essential hypertension I10 Active 54243897 Problem Anxiety F41.9 Active 89159423 Problem Visual disturbance H53.9 Active 18921322 Problem Rheumatoid arthritis involving multiple sites with positive rheumatoid factor M05.79 Active 533591097 Problem Bilateral low back pain with sciatica, sciatica laterality unspecified M54.40 Active 389956511 Problem Hypokalemia E87.6 Active 07014152 Problem Lumbago with sciatica, left side M54.42 Active 972464551 Problem Other chronic pain G89.29 Active 03358582 Problem 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 Active 864586114 Problem Blindness of right eye H54.40 Active 294345115 Problem Posttraumatic stress disorder F43.10 Active 75971640 Problem Overdose T50.901A Active 08062942 Problem Bipolar disorder F31.9 Active 51523862 Problem Borderline personality disorder F60.3 Active 05662370 Problem Obstructive sleep apnea G47.33 Active 38127654 Problem Acquired hypothyroidism E03.9 Active 164167932 Problem Pelvic pain R10.2 Active 44591676 Problem Chronic pain G89.29 Active 68292686 Problem Gastro-esophageal reflux disease without esophagitis K21.9 Active 978286346 Problem Anemia due to other cause, not classified D64.89 Active 874431062 Problem Social anxiety disorder F40.10 Active 76296372 Problem Morbid obesity, unspecified obesity type E66.01 Active 706172854 ALLERGIES No Information ENCOUNTERS Encounter Location Date Diagnosis [facility] [place] [address] [facility] [id number] [address] Feb, [place] [address] [address] Feb, [place] [address] [place] [address] 344755- 1449 Feb, [place] [address] [place] [address] 26600- 4606 Dec, Bipolar disorder F31.9 ; Posttraumatic stress disorder F43.10 and Borderline personality disorder F60.3 [place] [address] [place] [address] 31200- 0040 Dec, 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 ; Anemia due to other cause, not classified D64.89 ; Rheumatoid arthritis involving multiple sites with positive rheumatoid factor M05.79 ; 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 ; Dysuria R30.0 ; Urinary tract infection without hematuria, site unspecified N39.0 and Blindness of right eye H54.40 [place] [address] [address] 5[address] Dec, [place] [address] [place] [address] 43943- 6715 Dec, [address] [id number] [id number] Dec, Dental examination Z01.20 [place] [address] [address] 3980 Nov, Bipolar disorder F31.9 ; Posttraumatic stress disorder F43.10 and Borderline personality disorder F60.3 [place] [address] [address] 5[address] Nov, Rheumatoid arthritis involving multiple sites with positive rheumatoid factor M05.79 ; Dysuria R30.0 and Blindness of right eye H54.40 [place] [address] [address] 6494 Nov, Bipolar disorder F31.9 ; Posttraumatic stress disorder F43.10 ; Social anxiety disorder F40.10 and Relationship problem with family member Z63.8 [place] [address] [address] Nov, [facility] [place] [address] [address] Nov, [facility] [place] [address] [place] [address] 49710- 4715 Nov, 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 ; Adverse effect of antineoplastic and immunosuppressive drugs, initial encounter T45.1X5A ; Anemia , unspecified D64.9 and BMI 40.0-44.9, adult Z68.41 [place] [address] [place] [address] 40992- 6670 Nov, Anemia due to other cause, not classified D64.89 [place] [address] [place] [address] 08948- 6197 Oct, Adverse effect of drug, initial encounter T50.905A and Acute anemia D64.9 [place] [address] [address] 8369 Oct, Anemia due to other cause, not classified D64.89 ; Dysuria R30.0 and Urinary tract infection without hematuria, site unspecified N39.0 [place] [address] [address] 1122 Oct, [place] [address] [place] [address] 58670- 2748 Oct, [place] [address] [place] [id number] [address] 3543 Oct, 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 [address] [id number] Oct, [place] [address], [place] [address]- 7572 Oct, [place] [address] [place] [address] 01194- 4207 Oct, [place] [address] [place] [id number] [place] [address] 90677- 3711 Oct, Bipolar disorder F31.9 ; Posttraumatic stress disorder F43.10 and Borderline personality disorder F60.3 [place] [address] [place] [address] [place] [address] 17994- 6621 Oct, Rheumatoid arthritis involving multiple sites with positive rheumatoid factor M05.79 ; 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 and Anxiety F41.9 [place] [address] [place] [address] [place] [address] 31352- 0792 Oct, [place] [address] [place] [id number] [place] [address] 85383- 7734 September, 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 [place] [address] [place] [address] [place] [address] 94314- 4546 September, Bipolar disorder F31.9 ; Posttraumatic stress disorder F43.10 and Borderline personality disorder F60.3 [place] [address] [place] [address] [place] [address] 53930- 1052 Aug, BMI 40.0-44.9, adult Z68.41 ; Bipolar disorder F31.9 ; Posttraumatic stress disorder F43.10 and Social anxiety disorder F40.10 [place] [address] [place] [address] [place] [address] 33652- 7868 Aug, Bipolar disorder F31.9 ; Posttraumatic stress disorder F43.10 and Borderline personality disorder F60.3 [place] [address] [place] [address] 53464- 8910 Aug, 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 [place] [address] [place] [address] [place] [address] 95003- 6386 Jul, Bipolar disorder F31.9 ; Posttraumatic stress disorder F43.10 and Borderline personality disorder F60.3 [place] [address] [place] [address] [place] [address] 96153- 5378 Jul, [facility] [place] [address] [place] [address] [place] [address] 49601- 2213 Jun, Bipolar disorder F31.9 ; Posttraumatic stress disorder F43.10 and Borderline personality disorder F60.3 [facility] [place] [address] [place] [address] [place] [address] 35363- 6763 Jun, Blindness of right eye H54.40 and Acquired hypothyroidism E03.9 [facility] [place] [address] [place] [id number] [place] [address] 87987- 5976 Jun, [facility] [place] [address] [address]- 7322 May, Posttraumatic stress disorder F43.10 ; Social anxiety disorder F40.10 and Bipolar disorder F31.9 [facility] [place] [address] [place] [id number] [place] [address] 07512- 0947 May, Bipolar disorder F31.9 ; Posttraumatic stress disorder F43.10 and Borderline personality disorder F60.3 [facility] [place] [address] [place] [id number] [place] [address] 22050- 9867 May, [facility] [place] [address] [place] [id number] [place] [address] 95846- 3719 May, [facility] [place] [address] [place] [address] 68619- 2411 Apr, Bipolar disorder F31.9 ; Posttraumatic stress disorder F43.10 and Borderline personality disorder F60.3 [place] [id number] [id number] Apr, [facility] [place] [address] [place] [id number] [place] [address] 65029- 7037 Apr, [facility] [place] [address] [place] [address] 48566- 6288 Mar, Hydradenitis L73.2 [facility] [place] [address] [place] [id number] [place] [address] 93641- 4612 Mar, Lumbago with sciatica, left side M54.42 ; Other chronic pain G89.29 ; Morbid obesity, unspecified obesity type E66.01 ; Hydradenitis L73.2 and BMI 40.0-44.9, adult Z68.41 [place] [address] [place] [address] [place] [address] 75789- 9246 Mar, Bipolar disorder F31.9 ; Posttraumatic stress disorder F43.10 and Borderline personality disorder F60.3 [place] [address] 39279- 8424 Mar, Social anxiety disorder F40.10 ; Bipolar disorder F31.9 and Relationship problem with family member Z63.8 [place] [address] [place] [id number] [place] [address] 56633- 5264 Mar, [id number] [place] [address] [id number] Mar, Dental examination Z01.20 [place] [address] [place] [address] [place] [address] 00002- 8475 Mar, [place] [address] 70490- 2380 Feb, Bipolar disorder F31.9 ; Posttraumatic stress disorder F43.10 and Borderline personality disorder F60.[address] [place] [address] [id number] Feb, [place] [address] [place] [id number] [place] [address] 04293- 4585 14 Jan, 2017 Bipolar disorder F31.9 ; Posttraumatic stress disorder F43.10 and Borderline personality disorder F60.3 [facility] [id number] [place] [address] [id number] Jan, [place] [address] [place] [id number] [place] [address] 01814- 2590 Jan, [place] [id number] [place] [address] [id number] Jan, [place] [address] [facility] [place] 2[id number] [address]- 6850 Dec, Bipolar disorder F31.9 ; Posttraumatic stress disorder F43.10 and Borderline personality disorder F60.3 [place] [address] [address]- 5352 Dec, [facility] [place] [address], [place] [address]- 8546 Dec, [address] [id number] Dec, [place] [address] [place] [address] 85985- 9340 Nov, Bipolar 1 disorder F31.9 ; Posttraumatic stress disorder F43.10 and Social anxiety disorder F40.10 [place] [address] [address]- 6135 Nov, Bipolar disorder F31.9 ; Posttraumatic stress disorder F43.10 and Borderline personality disorder F60.3 [place] [address] [address]- 3066 Nov, Morbid obesity, unspecified obesity type E66.01 [place] [address], [place] [address]- 3636 Nov, [address] [id number] [id number] Oct, Encounter for dental examination and cleaning without abnormal findings Z01.20 [place] [address] [address]- 8974 15 Oct, 2016 Morbid obesity, unspecified obesity type E66.01 and Acute seasonal allergic rhinitis due to pollen J30.1 [place] [address] [address]- 7061 08 Oct, 2016 Bipolar disorder F31.9 ; Posttraumatic stress disorder F43.10 and Borderline personality disorder F60.3 [place] [address] [place] [address] 51941- 1789 September, Morbid obesity, unspecified obesity type E66.01 and Psoriasis L40.9 [place] [address] [place] [address] [place] [address] September, Bipolar disorder F31.9 ; Posttraumatic stress disorder F43.10 and Borderline personality disorder F60.3 [place] [address] [place] [address] [place] [address] 97462- 0917 September, Chronic pain G89.29 [place] [address] [place] [address] [place] [address] 99945- 6835 Aug, Other acute nonsuppurative otitis media of right ear H65.191 and Morbid obesity, unspecified obesity type E66.01 [place] [address] [place] [address] 44787- 3893 Aug, Bipolar 1 disorder F31.9 ; Posttraumatic stress disorder F43.10 and Social anxiety disorder F40.10 [place] [address] [place] [address] [place] [address] 22880- 1153 Aug, Bipolar disorder F31.9 ; Posttraumatic stress disorder F43.10 and Borderline personality disorder F60.3 [place] [address] [place] [address] [place] [address] 82795- 4218 Jul, Morbid obesity due to excess calories E66.01 ; Gastro- esophageal reflux disease without esophagitis K21.9 and Chronic pain G89.29 [place] [address] [place] [address] 98447- 6209 Jul, Morbid obesity due to excess calories E66.01 [place] [address] [place] [address] 58858- 7546 Jul, [place] [address] [place] [address] [place] [address] 29886- 5770 Jul, [place] [address] [place] [address] 75895- 7821 Jul, Morbid obesity due to excess calories E66.01 [facility] [place] [address] [address]- 8951 02 Jul, 2016 Bipolar disorder F31.9 ; Posttraumatic stress disorder F43.10 and Borderline personality disorder F60.3 [facility] [place] [address] [address]- 0174 16 Jun, 2016 [facility] [place] [address] [place] [id number] [place] [address] 95699- 6506 15 Jun, 2016 Morbid obesity due to excess calories E66.01 [facility] [place] [address] [place] [address] 32089- 9316 Jun, [facility] [place] [address] [place] [address] [place] [address] 10570- 7193 09 Jun, 2016 Morbid obesity, unspecified obesity type E66.01 [facility] [place] [address] [place] [address] 79575- 8451 03 Jun, 2016 Bipolar disorder F31.9 ; Posttraumatic stress disorder F43.10 and Borderline personality disorder F60.3 [facility] [place] [address] [place] [address] 18010- 6512 Jun, [facility] [place] [address] [address]- 2894 Jun, [facility] [place] [address], [place] [address]- [address] 02 Jun, 2016 Acquired hypothyroidism E03.9 and Morbid obesity due to excess calories E66.01 [facility] [place] [address], [place] [address] 1999 May, Bipolar disorder F31.9 ; Posttraumatic stress disorder F43.10 and Borderline personality disorder F60.3 [facility] [place] [address], [place] [address]- 0151 Apr, Bipolar 1 disorder F31.9 ; Posttraumatic stress disorder F43.10 and Social anxiety disorder F40.10 [facility] [address] [facility] [address] [id number] [id number] 12 Apr, 2016 Encounter for dental examination Z01.20 [facility] [place] [address] [place] [address] 76917- 3256 08 Apr, 2016 [facility] [place] [address] [place] [address] 39799- 1787 08 Apr, 2016 Acquired hypothyroidism E03.9 [facility] [place] [address] [place] [id number] [place] [address] 07789- 2100 Apr, Acquired hypothyroidism E03.9 [facility] [place] [address] [place] [address] [place] [address] 995726- 7137 Apr, Bipolar disorder F31.9 ; Posttraumatic stress disorder F43.10 and Borderline personality disorder F60.3 [facility] [place] [address] [place] [address] [place] [address] 90398- 3648 Apr, Acquired hypothyroidism E03.[address] [facility] [address] [facility] [facility] [address] [id number] [id number] Mar, Encounter for dental examination and cleaning without abnormal findings Z01.20 [facility] [place] [address] [place] [address] [place] [address] 01570- 1282 08 Mar, 2016 [facility] [place] [address] [place] [address] [place] [address] 47601- 2484 08 Mar, 2016 Bipolar disorder F31.9 ; Posttraumatic stress disorder F43.10 and Borderline personality disorder F60.3 [facility] [place] [address] [place] [address] 79677- 1222 Mar, Essential (primary) hypertension I10 [facility] [place] [address] [place] [address] [place] [address] 34254- 6851 Feb, [facility] [place] [address] [place] [address] [place] [address] 74055- 0207 14 Feb, 2016 [facility] [place] [address] [place] [address] [place] [address] 94351- 6180 11 Feb, 2016 Pelvic pain R10.2 ; Lipid screening Z13.220 ; Fatigue, unspecified type R53.83 and Weight gain R63.5 [facility] [place] [address] [place] [address] 06827- 9548 Feb, Bipolar disorder F31.9 ; Posttraumatic stress disorder F43.10 and Borderline personality disorder F60.3 [facility] [place] [address] [place] [address] 41259- 6169 Feb, [facility] [place] [address] [place] [address] [place] [address] 94560- 4572 Feb, [facility] [place] [address] [place] [address] [place] [address] 24622- 2501 30 Jan, 2016 Obstructive sleep apnea syndrome G47.33 [facility] [place] [address] [place] [address] [place] [address] 72860- 0278 26 Jan, 2016 [address] [id number] 19 Jan, 2016 Dental examination Z01.20 [facility] [place] [address] [place] [address] [place] [address] 02229- 8056 Jan, Bipolar 1 disorder F31.9 ; Posttraumatic stress disorder F43.10 and Social anxiety disorder F40.10 [facility] [place] [address] [place] [address] 24839- 2447 Jan, Bipolar disorder F31.9 ; Posttraumatic stress disorder F43.10 and Borderline personality disorder F60.3 [facility] [place] [address] [place] [address] 41031- 1793 Jan, Sciatica of left side M54.32 [facility] [place] [address] [place] [id number] [place] [address] 34340- 8054 Jan, [facility] [place] [address] [place] [address] [place] [address] 19117- 4047 Dec, [facility] [place] [address] [place] [address] [place] [address] 79106- 5418 Dec, [place] [address] [address]- 4851 Dec, Bipolar disorder F31.9 ; Posttraumatic stress disorder F43.10 and Borderline personality disorder F60.3 [facility] [place] [address] [address]- 8637 Nov, [facility] [place] [address] [place] [address] 58420- 4134 Nov, Insomnia, unspecified type G47.00 [facility] [place] [address] [place] [address] 84849- 2631 Nov, Bipolar disorder F31.9 ; Posttraumatic stress disorder F43.10 and Borderline personality disorder F60.3 [facility] [place] [address] [address]- 0011 Nov, [facility] [place] [address] [place] [id number] [place] [address] 81604- 7194 Nov, [facility] [place] [address] [place] [address] 87203- 2917 Oct, Bipolar disorder F31.9 ; Posttraumatic stress disorder F43.10 and Borderline personality disorder F60.3 [facility] [place] [address] [address]- 9794 Oct, [facility] [place] [address] [place] [address] 79696- 2522 Oct, Essential (primary) hypertension I10 [facility] [place] [id number] [address] September, Bipolar 1 disorder F31.9 ; Posttraumatic stress disorder F43.10 and Social anxiety disorder F40.10 [facility] [place] [id number] [address] September, Bipolar disorder F31.9 ; Posttraumatic stress disorder F43.10 and Borderline personality disorder F60.3 [facility] [id number] [id number] September, Encounter for dental examination and cleaning without abnormal findings Z01.20 [place] [id number] [place] [address] September, [place] [address] [place] [id number] [place] [address] [phone] September, [place] [address] [place] [id number] [place] [phone] Aug, [place] [address] [place] [id number] [place] [address] Aug, Bipolar disorder F31.9 ; Posttraumatic stress disorder F43.10 and Borderline personality disorder F60.3 [place] [id number] [place] [address] Aug, [place] [id number] [place] [address] Aug, [place] [id number] [place] [address] 12036- 9310 Aug, [facility] [id number] [place] [address] [id number] Jul, Acute nasopharyngitis [common cold] J00 and Other viral agents as the cause of diseases classified elsewhere B97.89 [id number] [place] [address] 66244- 9789 Jul, Chronic pain G89.29 and Allergic rhinitis J30.9 [id number] [place] [address] 71288- 9796 Jul, Bipolar 1 disorder F31.9 ; Posttraumatic stress disorder F43.10 and Social anxiety disorder F40.10 [id number] [place] [address] 82586- 0374 Jul, Bipolar 1 disorder F31.[id number] [place] [address] 95228- 2575 Jul, Bipolar disorder F31.9 ; Posttraumatic stress disorder F43.10 and Borderline personality disorder F60.3 [facility] [place] [address] [address] 9[address] 14 Jul, 2015 [facility] [place] [id number] [place] [address] 65681 2546 14 Jul, 2015 [facility] [place] [id number] [place] [address] 13498 2546 11 Jul, 2015 [facility] [place] [id number] [place] [address] 98615 2546 10 Jul, 2015 Anxiety F41.9 [facility] [place] [id number] [place] [address] 29850 2546 10 Jul, 2015 Chronic pain G89.29 and Encounter for therapeutic drug level monitoring Z51.81 [facility] [place] [id number] [place] [address] 34278- 1201 09 Jul, 2015 Chronic pain G89.29 and Encounter for therapeutic drug level monitoring Z51.81 [facility] [place] [id number] [place] [address] 84631 2545 08 Jul, 2015 [facility] [place] [id number] [place] [address] 40118- 5116 Jun, [facility] [place] [id number] [place] [address] 10430- 2655 Jun, [facility] [place] [id number] [place] [address] 19052 2546 15 Jun, 2015 [facility] [place] [id number] [place] [address] 33463 2546 15 Jun, 2015 [facility] [place] [id number] [place] [address] 59817 2546 11 Jun, 2015 High risk medication use V58.69 [facility] [place] [id number] [place] [address] 63426- 2776 09 Jun, 2015 [facility] [place] [id number] [place] [address] 24747- 4179 Jun, Bipolar 1 disorder F31.9 ; Overdose T50.901A and Chronic pain G89.29 [facility] [place] [id number] [place] [address] 39045- 4082 Jun, Bipolar disorder F31.9 ; Posttraumatic stress disorder F43.10 and Borderline personality disorder F60.3 [facility] [place] [id number] [place] [address] 89403- 7783 Jun, [facility] [place] [id number] [place] [address] 00737- 1263 Jun, [facility] [place] [id number] [place] [address] 21211- 8565 Jun, Keloid L91.0 [facility] [place] [id number] [place] [address] 35358- 7044 Jun, [facility] [place] [id number] [place] [address] 69089- 9890 May, [facility] [place] [id number] [place] [address] 26102- 3886 May, [facility] [place] [id number] [place] [address] 39636- 7056 May, Pelvic pain R10.2 [facility] [place] [id number] [place] [address] 03741- 6998 May, [facility] [place] [id number] [place] [address] 20368- 9259 May, Pain of left thumb M79.645 ; Incisional pain R20.8 ; Pelvic pain R10.2 and Essential hypertension I10 [facility] [place] [id number] [place] [address] 15655- 2330 May, [facility] [place] [id number] [place] [address] 53615- 1818 May, [facility] [address] [id number] [id number] May, Dental examination Z01.20 and Necrosis of pulp K04.1 [facility] [address] [address] 3067 Apr, [facility] [address] 6056 Apr, [facility] [id number] [place] [address] 90006- 8059 Apr, [facility] [id number] [place] [address] 649867- 6660 Apr, [facility] [id number] [place] [address] 88922- 8262 Apr, [facility] [id number] [place] [address] 64231- 5684 Apr, [facility] [id number] [place] [address] 74110- 4179 Apr, [facility] [address] [address]- 2174 Apr, [facility] [address] [address]- 7758 Mar, [facility] [address] [address]- 8928 Mar, [facility] [address] [address]- 2357 Mar, [facility] [address] [address]- 5006 Mar, [facility] [id number] [address]- 8411 Feb, [facility] [address], [place] [address]- 1256 Feb, [facility] [id number] [place] [address] 57050- 2339 Feb, [facility] [place] [id number] [address]- 6874 Feb, [facility] [place] [id number] 4832 Feb, [facility] [place] [id number] [address]- 2121 Feb, [facility] [place] [id number] [place] [address] 46364- 8267 Feb, [facility] [place] [id number] [place] [address] 26399- 9482 Feb, Dermatofibroma of left lower leg D23.72 [facility] [place] [address] [address]- 7692 Feb, Hematochezia 578.1 ; Low back pain M54.5 ; High risk medication use V58.69 ; Cervicalgia M54.2 and Anxiety F41.[address] [id number] [id number] Feb, Dental examination Z01.20 ; Pulpitis K04.0 and Dental caries, unspecified K02.[address] [id number] [id number] Feb, Dental examination Z01.20 [facility] [place] [address] [address]- 6313 30 Jan, 2015 [facility] [place] [address] [address]- 2933 Jan, [facility] [place] [address] [address]- 7311 Jan, [facility] [place] [address] [address]- 4069 Jan, [facility] [place] [address] [address]- 7651 Dec, [facility] [address] [id number] [place] [address]- 9943 Dec, [facility] [address] [id number] [place] [address]- 5475 Dec, [facility] [address] [id number] [place] [address]- 8282 Dec, [facility] [address] [id number] [place] [address]- 5232 Dec, [facility] [address] [id number] [place] [address]- 7372 Dec, [facility] [address] [id number] [place] [address]- 9712 Dec, [facility] [address] [id number], [place] [address]- 4503 Dec, [facility] [place] [address] [id number] [id number] Nov, Encounter for removal of sutures V58.32 [facility] [address] [id number] [address]- 6147 Nov, [facility] [address] [id number] [address]- 3130 Nov, [facility] [address] [id number] [address]- 8443 Nov, [facility] [address] [id number][place] [address]- 4880 Nov, [facility] [address] [id number] [place] [address]- 7236 Nov, [facility] [address] [id number] [address]- 2387 Nov, [facility] [address] [id number][place] [address]- 6367 Nov, [facility] [address] [address]- 6324 Nov, Dermatofibroma 216.9 [facility] [place] [address] [address]- 1730 Nov, [facility] [place] [address] [address]- 4152 Nov, [facility] [place] [address] [address]- 6937 Oct, [facility] [place] [address] [address]- 6299 Oct, Hematochezia 578.1 ; Abscess 682.9 ; GERD (gastroesophageal reflux disease) 530.81 ; Visual disturbance of one eye 368.9 and High risk medication use V58.69 [facility] [place] [address] [address]- 9291 Oct, [facility] [place] [address] [address]- 0666 Oct, [facility] [place] [address] [address]- 3456 Oct, [facility] [place] [address] [address]- 6503 September, [facility] [place] [address] [address]- 3974 September, [facility] [place] [address], [place] [address]- 0184 September, [facility] [place] [id number] [address]- 6283 September, [facility] [place] [address] [address]- 9392 September, [facility] [place] [id number] [address]- 4407 September, Colon cancer screening V76.51 [facility] [place] [id number] [place] [address]- 0985 September, [facility] [place] [facility] [address] [id number] [place] [address]- 4997 14 Aug, 2014 [facility] [place] [facility] [address] [id number] [place] [address]- 0046 Aug, [facility] [place] [facility] [address] [id number] [place] [address]- 2719 Jul, [facility] [place] [facility] [address] [id number] [place] [address]- 4399 Jul, [facility] [place] [facility] [address] [id number] [place] [address]- 3346 Jul, [facility] [place] [facility] [address] [facility] [place] [id number] [place] [address]- 8766 Jul, [facility] [place] [facility] [address] [facility] [place] [id number] [place] [address]- 9493 Jun, [facility] [place] [facility] [address] [id number] [place] [address]- 0317 Jun, [facility] [place] [facility] [address] [facility] [place] [id number] [place] [address]- 0900 Jun, [facility] [place] [facility] [address] [facility] [place] 2] [id number] [place] [address]- 8913 Jun, [facility] [place] [facility] [address] [id number] [place] [address]- 4968 Jun, [facility] [place] [facility] [address] [id number] [place] [address]- 3564 Jun, [facility] [place] [facility] [address] [id number] [place] [address]- 9998 May, [facility] [place] [facility] [address] [id number] [place] [address]- 7929 May, [facility] [place] [facility] [address] [id number] [place] [address]- 8221 May, [facility] [place] [facility] [address] [id number] [place] [address]- 2930 May, [facility] [place] [facility] [address] [id number] [place] [address]- 1792 May, [facility] [place] [facility] [address] [id number] [place] [address]- 8342 May, [facility] [place] [facility] [address] [id number] [place] [address]- 1028 May, [facility] [place] [facility] [address] [id number] [place] [address]- 4451 May, [facility] [place] [facility] [address] [id number] [place] [address]- 9197 Apr, [facility] [place] [facility] [address] [id number] [place] [address]- 0502 Apr, [facility] [place] [facility] [address] [id number] [place] [address]- 4321 Apr, [facility] [place] [facility] [address] [id number] [place] [address]- 5361 Apr, [facility] [place] [facility] [address] [id number] [place] [address]- 0894 Apr, [facility] [place] [facility] [address] [id number] [place] [address]- 6128 Apr, [facility] [place] [facility] [address] [id number] [address]- 8027 Apr, [facility] [place] [facility] [address] [id number] [place] [address]- 5537 Apr, [facility] [place] [facility] [address] [id number] [place] [address]- 8476 Mar, [facility] [place] [facility] [address] [id number] [place] [address]- 5564 Mar, [facility] [place] [facility] [address] [id number] [place] [address]- 3448 Mar, [facility] [place] [facility] [address] [id number] [place] [address]- 6763 Mar, [facility] [place] [facility] [address] [id number] [place] [address]- 9938 Mar, [facility] [place] [facility] [address] [id number] [place] [address]- 4085 Mar, [facility] [place] [facility] [address] [id number] [place] [address]- 0052 Mar, [facility] [place] [facility] [address] [id number] [place] [address]- 8801 Mar, [facility] [place] [facility] [address] [id number] [place] [address]- 0302 Mar, [facility] [place] [facility] [address] [id number] [place] [address]- 0014 Mar, [facility] [place] [facility] [address] [id number] [place] [address]- 1879 Feb, [facility] [place] [facility] [address] [id number] [place] [address]- 9338 Feb, [facility] [place] [facility] [address] [id number] [place] [address]- 3636 Jan, [facility] [place] [facility] [address] [id number] [place] [address]- 0616 Jan, [facility] [place] [facility] [address] [id number] [place] [address]- 4691 Jan, [facility] [place] [facility] [address] [id number] [place] [address]- 2750 Jan, [facility] [place] [facility] [address] [id number] [place] [address]- 8867 Dec, [facility] [place] [facility] [address] [id number] [place] [address]- 0597 Dec, [facility] [place] [facility] [address] [id number] [place] [address]- 7002 Dec, [facility] [place] [facility] [address] [id number] [place] [address]- 4989 Dec, [facility] [place] [facility] [address] [id number] [place] [address]- 9256 Dec, [facility] [place] [facility] [address] [id number] [place] [address]- 3278 Dec, [facility] [place] [facility] [address] [id number] [place] [address]- 4279 Nov, [facility] [place] [facility] [address] [id number] [place] [address]- 6938 Nov, [facility] [place] [facility] [address] [id number] [place] [address]- 1714 Oct, [facility] [place] [facility] [address] [id number] [place] [address]- 5926 Oct, [facility] [place] [facility] [address] [id number] [place] [address]- 4253 Oct, [facility] [place] [facility] [address] [id number] [place] [address]- 0129 Oct, [facility] [place] [facility] [address] [id number] [place] [address]- 5874 September, [facility] [place] [facility] [address] [id number] [place] [address]- 9711 September, [facility] [place] [facility] [address] [id number] [place] [address]- 5909 September, [facility] [place] [facility] [address] [id number] [place] [address]- 0586 September, [facility] [place] [facility] [address] [id number] [place] [address]- 6684 September, [facility] [place] [facility] [address] [id number] [place] [address]- 3826 September, [facility] [place] [facility] [address] [id number] [place] [address]- 1819 September, [facility] [place] [facility] [address] [id number] [place] [address]- 0705 September, [facility] [place] [facility] [address] [id number] [place] [address]- 5052 Aug, [facility] [place] [facility] [address] [id number] [place] [address]- 3850 Aug, [facility] [place] [facility] [address] [id number] [place] [address] Aug, [facility] [place] [facility] [address] [id number] [place] [address] Aug, [facility] [place] [facility] [address] [facility] [place] [id number] [place] [address] Aug, [facility] [place] [facility] [address] [id number] [place] [address] Aug, [facility] [place] [facility] [address] [id number] [place] [address] Jul, [facility] [place] [facility] [address] [id number] [place] [address] Jul, [facility] [place] [facility] [address] [id number] [place] [address] Jul, [facility] [place] [facility] [address] [id number] [place] [address] Jul, [facility] [place] [facility] [address] [id number] [place] [address] Jun, [facility] [place] [facility] [address] [id number] [place] [address] Jun, [facility] [place] [facility] [address] [id number] [place] [address] Jun, [facility] [place] [facility] [address] [id number] [place] [address] Jun, [facility] [address] [id number] [place] [address] Jun, [facility] [address] [id number] [place] [address] Jun, [facility] [address] [id number] [place] [address] May, [facility] [address] [id number] [place] [address] 2007 May, [facility] [address] [id number] [place] [address] May, [facility] [address] [id number] [place] [address] May, [facility] [address] [id number] [place] [address] May, [facility] [address] [id number] [place] [address] May, [facility] [address] [id number] [place] [address] May, [facility] [address] [id number] [place] [address] May, [facility] [address] [id number] [place] [address] Apr, [facility] [address] [place] [id number] Apr, [facility] [address] [id number] [place] [address] Apr, [facility] [address] [id number] [place] [address] 16 Apr, 2013 [facility] [address] [id number] [place] [address] Apr, [facility] [place] [facility] [address] [id number] [place] [address] Apr, [facility] [place] [facility] [address] [id number] [place] [address] Apr, [facility] [place] [facility] [address] [id number] [place] [address] 05 Apr, 2013 [facility] [place] [facility] [address] [id number] [place] [address] Apr, [facility] [place] [facility] [address] [id number] [place] [address] Mar, [facility] [place] [facility] [address] [id number] [place] [address] Mar, [facility] [place] [facility] [address] [id number] [place] [address] Mar, [facility] [place] [facility] [address] [id number], [place] [address] Mar, [facility] [place] [facility] [address] [id number], [place] [address] Mar, [facility] [place] [facility] [address] [id number] [address] Feb, [facility] [place] [facility] [address] [id number], [place] [address] Feb, [facility] [place] [facility] [address] [id number], [place] [address] 14 Feb, 2013 [facility] [place] [facility] [address] [id number], [place] [address] 14 Feb, 2013 [facility] [place] [facility] [address] [id number], [place] [address] 25 Jan, 2013 [facility] [place] [facility] [address] [id number] [address] 24 Jan, 2013 [facility] [place] [facility] [address] [id number], [place] [address] Jan, [facility] [address] [id number], [place] [address] Dec, [facility] [place] [facility] [address] [facility] [place] [id number], [place] [address] Dec, [facility] [address] [id number], [place] [address] Dec, [facility] [address] [id number] [id number] Nov, [facility] [id number][place] [id number] Oct, [facility] [address] [id number], [place] [address] Oct, [facility] [place] [facility] [address] [facility] [place] [id number], [place] [address] September, [facility] [place] [facility] [address] [address] [id number] [address] September, [facility] [place] [facility] [address] [id number], [place] [address] September, [facility] [place] [facility] [address] [facility] [place] [id number] [address] September, [facility] [place] [facility] [address] [id number] [address] September, [facility] [place] [facility] [address] [id number] [address] Jul, [facility] [place] [facility] [address] [id number] [address] Jul, [facility] [place] [facility] [address] [id number], [place] [address] Jul, [facility] [place] [facility] [address] [id number] [address] Jul, [facility] [place] [facility] [address] [id number] [place] [address] Jun, [facility] [address] [id number] [place] [address] Jun, [facility] [place] [facility] [address] [id number] [place] [address] Jun, [facility] [place] [facility] [address] [id number] [place] [address] Jun, [facility] [place] [facility] [address] [id number] [place] [address] May, [facility] [place] [facility] [address] [id number] [place] [address] Mar, [facility] [place] [facility] [address] [id number] [place] [address] Mar, [facility] [place] [facility] [address] [id number] [place] [address] Mar, [facility] [place] [facility] [address] [id number] [place] [address] Mar, [facility] [place] [facility] [address] [facility] [place] [id number] [place] [address] Mar, [facility] [place] [facility] [address] [facility] [place] [id number] [place] [address] Mar, [facility] [place] [facility] [address] [id number] [place] [address] Mar, [facility] [place] [facility] [address] [facility] [place] [id number] [place] [address] Mar, [facility] [place] [facility] [address] [id number] [place] [address] Feb, [facility] [place] [facility] [address] [id number] [place] [address] Feb, [facility] [place] [facility] [address] [id number] [place] [address] Feb, [facility] [place] [facility] [address] [id number] [place] [address] Feb, [facility] [place] [facility] [address] [id number] [place] [address]- [address] Feb, [facility] [place] [facility] [address] [id number] [place] [address] Feb, [facility] [address] [id number] [place] [address] Feb, [facility] [address] [id number] [place] [id number] Jan, [facility] [address] [id number] [place] [id number] Dec, [facility] [address] [id number] [place] [id number] Dec, [facility] [address] [id number] [place] [address] Nov, [facility] [place] [facility] [address] [id number], [place] [address] Nov, [facility] [place] [facility] [address] [facility] [place] [id number] [place] [address] Oct, [facility] [place] [facility] [address] [facility] [place] [id number] [address] Jul, [facility] [place] [facility] [address] [facility] [place] [id number] [place] [address] Jul, [facility] [place] [facility] [address] [facility] [place] [id number], [place] [address] May, [facility] [place] [facility] [address] [id number] [place] [address] May, [facility] [place] [facility] [address] [facility] [place] [id number] [address] Nov, [facility] [place] [facility] [address] [id number], [place] [address] Mar, [facility] [place] [id number], [place] [address] Dec, [facility] [place] [id number], [place] [address] Nov, [facility] [place] [id number], [place] [address] Aug, [facility] [place] [id number], [place] [address] Apr, [facility] [place] [id number], [place] [address] Apr, [facility] [place] [id number] [place] [address] Mar, [facility] [place] [address] [id number], [place] [address] Feb, [facility] [place] [id number], [place] [address] September, [facility] [place] [id number], [place] [address] Jun, [facility] [place] [id number], [place] [address] Mar, IMMUNIZATIONS No Known Immunizations SOCIAL HISTORY Never Assessed REASON FOR VISIT med refill PLAN OF CARE VITAL SIGNS MEDICATIONS Medication Instructions Dosage Frequency Start Date End Date Duration Status Doxepin HCl 10 mg Orally Once at [...] [place] Hospitalization History Went by ambulance to [place] as unresponsive 05/2015 Hospitalization History [place] sent her to [facility] for a psych hold 05/2015
--- OUTSIDE RECORDS SUMMARY | 2018-03-15 10:49 | XMS REPORT ---
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 Outside Name Role Phone HERBERT MCGOWAN Unavailable PROBLEMS Type Condition ICD9-CM Code IKB18-OA Code Onset Dates Condition Status SNOMED Code Problem Psoriasis L40.9 Active 2827937 Problem Relationship problem with family member Z63.8 Active 432696323 Problem Essential hypertension I10 Active 42476640 Problem Anxiety F41.9 Active 34101488 Problem Visual disturbance H53.9 Active 43967111 Problem Rheumatoid arthritis involving multiple sites with positive rheumatoid factor M05.79 Active 750909533 Problem Bilateral low back pain with sciatica, sciatica laterality unspecified M54.40 Active 364698292 Problem Hypokalemia E87.6 Active 67425262 Problem Lumbago with sciatica, left side M54.42 Active 841716137 Problem Other chronic pain G89.29 Active 49483836 Problem 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 Active 579464591 Problem Blindness of right eye H54.40 Active 726896017 Problem Posttraumatic stress disorder F43.10 Active 66244442 Problem Overdose T50.901A Active 53811547 Problem Bipolar disorder F31.9 Active 70308351 Problem Borderline personality disorder F60.3 Active 79227477 Problem Obstructive sleep apnea G47.33 Active 21490920 Problem Acquired hypothyroidism E03.9 Active 121643464 Problem Pelvic pain R10.2 Active 57086206 Problem Chronic pain G89.29 Active 89407562 Problem Gastro-esophageal reflux disease without esophagitis K21.9 Active 333917893 Problem Anemia due to other cause, not classified D64.89 Active 462588060 Problem Social anxiety disorder F40.10 Active 93573186 Problem Morbid obesity, unspecified obesity type E66.01 Active 922528367 ALLERGIES No Information ENCOUNTERS Encounter Location Date Diagnosis [facility] [address] [address] Feb, [facility] [address] [address] 49[address] Feb, [facility] [address] [address] Feb, [facility] [address] [place] [address] 36256- 3785 Dec, Bipolar disorder F31.9 ; Posttraumatic stress disorder F43.10 and Borderline personality disorder F60.3 [place] [address] [place] [address] 33188- 2230 Dec, 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 ; Anemia due to other cause, not classified D64.89 ; Rheumatoid arthritis involving multiple sites with positive rheumatoid factor M05.79 ; 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 ; Dysuria R30.0 ; Urinary tract infection without hematuria, site unspecified N39.0 and Blindness of right eye H54.40 [place] [address] [address] Dec, [place] [address] [place] [address] 13322- 5652 Dec, [place] [address] [facility] [id number] [id number] Dec, Dental examination Z01.20 [place] [address] [address] 978[address] Nov, Bipolar disorder F31.9 ; Posttraumatic stress disorder F43.10 and Borderline personality disorder F60.3 [facility] [address] [address] 2112 Nov, Rheumatoid arthritis involving multiple sites with positive rheumatoid factor M05.79 ; Dysuria R30.0 and Blindness of right eye H54.40 [place] [id number] [address] 8315 Nov, Bipolar disorder F31.9 ; Posttraumatic stress disorder F43.10 ; Social anxiety disorder F40.10 and Relationship problem with family member Z63.8 [place] [address] [place] [address] 69910- 0164 Nov, [facility] [address] [place] [address] 36082- 1280 Nov, [facility] [address] [place] [id number] [place] [address] 08305- 8904 Nov, 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 ; Adverse effect of antineoplastic and immunosuppressive drugs, initial encounter T45.1X5A ; Anemia , unspecified D64.9 and BMI 40.0-44.9, adult Z68.41 [place] [address] [place] [address] 51976- 1537 Nov, Anemia due to other cause, not classified D64.89 [place] [address] [place] [address] 56450- 2371 Oct, Adverse effect of drug, initial encounter T50.905A and Acute anemia D64.9 [place] [address] [place] [address] 42309- 7956 Oct, Anemia due to other cause, not classified D64.89 ; Dysuria R30.0 and Urinary tract infection without hematuria, site unspecified N39.0 [place] [address] [address]- 5142 Oct, [place] [address] [place] [address] 03263- 7532 Oct, [place] [address] [id number] [address]- 3753 Oct, 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 [place] [id number] [address] Oct, [place] [address] [place] [address] 92367- 2153 Oct, [place] [address] [place] [address] 33862- 7851 Oct, [facility] [address] [place] [id number] [place] [address] 55453- 6622 Oct, Bipolar disorder F31.9 ; Posttraumatic stress disorder F43.10 and Borderline personality disorder F60.3 [place] [address] [place] [id number] [place] [address] 56664- 6167 Oct, Rheumatoid arthritis involving multiple sites with positive rheumatoid factor M05.79 ; 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 and Anxiety F41.9 [place] [address] [place] [id number] [place] [address] 76199- 4159 Oct, [place] [address] [place] [id number] [place] [address] 88353- 9483 September, 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 [place] [address] [place] [id number] [place] [address] 78561- 5813 September, Bipolar disorder F31.9 ; Posttraumatic stress disorder F43.10 and Borderline personality disorder F60.3 [place] [address] [place] [id number] [place] [address] 03115- 6795 Aug, BMI 40.0-44.9, adult Z68.41 ; Bipolar disorder F31.9 ; Posttraumatic stress disorder F43.10 and Social anxiety disorder F40.10 [place] [address] [place] [id number] [place] [address] 14361- 9571 Aug, Bipolar disorder F31.9 ; Posttraumatic stress disorder F43.10 and Borderline personality disorder F60.3 [place] [address] [place] [address] 45930- 1958 Aug, 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 [place] [address] [place] [id number] [place] [address] 29808- 2973 Jul, Bipolar disorder F31.9 ; Posttraumatic stress disorder F43.10 and Borderline personality disorder F60.3 [place] [address] [place] [id number] [place] [address] 21821- 5352 Jul, [facility] [address] [place] [id number] [place] [address] 35232- 9908 Jun, Bipolar disorder F31.9 ; Posttraumatic stress disorder F43.10 and Borderline personality disorder F60.3 [facility] [address] [address] [id number] [place] [address] 30914- 3101 Jun, Blindness of right eye H54.40 and Acquired hypothyroidism E03.9 [facility] [address] [place] [address] [id number] [place] [address] 78696- 9980 Jun, [facility] [address] [place] [address] [id number] [place] [address] 30830- 3957 May, Posttraumatic stress disorder F43.10 ; Social anxiety disorder F40.10 and Bipolar disorder F31.9 [facility] [address] [place] [id number] [place] [address] 74478- 5172 May, Bipolar disorder F31.9 ; Posttraumatic stress disorder F43.10 and Borderline personality disorder F60.3 [facility] [address] [place] [id number] [place] [address] 59134- 1848 May, [facility] [address] [place] [address] [id number] [place] [address] 84957- 5229 May, [facility] [address] [place] [address] 36889- 5431 Apr, Bipolar disorder F31.9 ; Posttraumatic stress disorder F43.10 and Borderline personality disorder F60.3 [place] [id number] [address] Apr, [facility] [address] [place] [address] [id number] [place] [address] 75294- 9853 Apr, [facility] [address] [place] [address] 65245- 0420 Mar, Hydradenitis L73.2 [facility] [address] [place] [address] [id number] [place] [address] 61027- 5979 Mar, Lumbago with sciatica, left side M54.42 ; Other chronic pain G89.29 ; Morbid obesity, unspecified obesity type E66.01 ; Hydradenitis L73.2 and BMI 40.0-44.9, adult Z68.41 [place] [address] [place] [address] 97877- 2467 07 Mar, 2017 Bipolar disorder F31.9 ; Posttraumatic stress disorder F43.10 and Borderline personality disorder F60.3 [place] [address] [place] [id number] [place] [address] 38962- 7053 07 Mar, 2017 Social anxiety disorder F40.10 ; Bipolar disorder F31.9 and Relationship problem with family member Z63.8 [place] [address] [place] [id number] [place] [address] 33238- 3057 Mar, [place] [address] [id number] [id number] Mar, Dental examination Z01.20 [place] [address] [place] [id number] [place] [address] 62914- 7028 02 Mar, 2017 [place] [address] [place] [id number] [place] [address] 85895- 9417 10 Feb, 2017 Bipolar disorder F31.9 ; Posttraumatic stress disorder F43.10 and Borderline personality disorder F60.3 [facility] [address] [id number] Feb, [place] [address] [place] [id number] [place] [address] 93652- 2281 14 Jan, 2017 Bipolar disorder F31.9 ; Posttraumatic stress disorder F43.10 and Borderline personality disorder F60.3 [facility] [address] [id number] [id number] Jan, [place] [address] [place] [address] 07231- 8108 Jan, [place] [id number] [place] [address] [id number] Jan, [place] [address] [place] [id number] [address]- 4176 Dec, Bipolar disorder F31.9 ; Posttraumatic stress disorder F43.10 and Borderline personality disorder F60.3 [place] [address] [address]- 7359 Dec, [facility] [address] [address]- 2274 Dec, [place] [id number] [id number] Dec, [place] [address] [place] [address] 24376- 9037 Nov, Bipolar 1 disorder F31.9 ; Posttraumatic stress disorder F43.10 and Social anxiety disorder F40.10 [place] [address] [place] [address] 29767- 1726 Nov, Bipolar disorder F31.9 ; Posttraumatic stress disorder F43.10 and Borderline personality disorder F60.3 [place] [address] [address]- 9128 Nov, Morbid obesity, unspecified obesity type E66.01 [place] [address] [address]- 5769 Nov, [address] [id number] [id number] Oct, Encounter for dental examination and cleaning without abnormal findings Z01.20 [place] [address] [address]- 2218 15 Oct, 2016 Morbid obesity, unspecified obesity type E66.01 and Acute seasonal allergic rhinitis due to pollen J30.1 [place] [address] [address]- 4587 08 Oct, 2016 Bipolar disorder F31.9 ; Posttraumatic stress disorder F43.10 and Borderline personality disorder F60.3 [place] [address] [place] [address] 43627- 3296 September, Morbid obesity, unspecified obesity type E66.01 and Psoriasis L40.9 [place] [address] 534359- 4489 September, Bipolar disorder F31.9 ; Posttraumatic stress disorder F43.10 and Borderline personality disorder F60.3 [place] [address] 82626- 4427 September, Chronic pain G89.29 [place] [address] 26518- 2432 Aug, Other acute nonsuppurative otitis media of right ear H65.191 and Morbid obesity, unspecified obesity type E66.01 [place] [address] 40944- 2719 Aug, Bipolar 1 disorder F31.9 ; Posttraumatic stress disorder F43.10 and Social anxiety disorder F40.10 [place] [address] [place] [id number] [place] [address] 80930- 8758 Aug, Bipolar disorder F31.9 ; Posttraumatic stress disorder F43.10 and Borderline personality disorder F60.3 [place] [address] [place] [id number] [place] [address] 87696- 3538 Jul, Morbid obesity due to excess calories E66.01 ; Gastro- esophageal reflux disease without esophagitis K21.9 and Chronic pain G89.29 [place] [address] [place] [id number] [place] [address] 46894- 3562 Jul, Morbid obesity due to excess calories E66.01 [place] [address] 99801- 2527 Jul, [place] [address] 19969- 0079 Jul, [place] [address] [place] [id number] [place] [address] 67372- 4740 Jul, Morbid obesity due to excess calories E66.01 [facility] [address] [address]- 2382 02 Jul, 2016 Bipolar disorder F31.9 ; Posttraumatic stress disorder F43.10 and Borderline personality disorder F60.3 [facility] [address] [address]- 7756 16 Jun, 2016 [facility] [address] [place] [id number] [place] [address] 78152- 5346 15 Jun, 2016 Morbid obesity due to excess calories E66.01 [facility] [address] [place] [address] 57920- 1721 Jun, [facility] [address] [place] [id number] [place] [address] 69010- 6228 09 Jun, 2016 Morbid obesity, unspecified obesity type E66.01 [facility] [address] [place] [address] 45401- 9756 03 Jun, 2016 Bipolar disorder F31.9 ; Posttraumatic stress disorder F43.10 and Borderline personality disorder F60.3 [facility] [address] [place] [address] 74620- 1103 03 Jun, 2016 [facility] [address] [address]- 6391 Jun, [facility] [address] [place] [address] 89371- 4126 02 Jun, 2016 Acquired hypothyroidism E03.9 and Morbid obesity due to excess calories E66.01 [facility] [address] [address]- 3347 May, Bipolar disorder F31.9 ; Posttraumatic stress disorder F43.10 and Borderline personality disorder F60.3 [facility] [address] [address]- 2817 Apr, Bipolar 1 disorder F31.9 ; Posttraumatic stress disorder F43.10 and Social anxiety disorder F40.10 [facility] [id number] [address] 12 Apr, 2016 Encounter for dental examination Z01.20 [facility] [address] [place] [address] 55066- 0783 08 Apr, 2016 [facility] [address] [place] [address] 30616- 1945 08 Apr, 2016 Acquired hypothyroidism E03.9 [facility] [address] [place] [id number] [place] [address] 26880- 5212 Apr, Acquired hypothyroidism E03.9 [facility] [address] [place] [id number] [place] [address] 80637- 4672 Apr, Bipolar disorder F31.9 ; Posttraumatic stress disorder F43.10 and Borderline personality disorder F60.3 [facility] [address] [place] [id number] [place] [address] 25643- 4302 Apr, Acquired hypothyroidism E03.[address] [id number] [id number] Mar, Encounter for dental examination and cleaning without abnormal findings Z01.20 [facility] [address] [place] [id number] [place] [address] 59020- 6700 08 Mar, 2016 [facility] [address] [place] [id number] [place] [address] 34943- 7522 Mar, Bipolar disorder F31.9 ; Posttraumatic stress disorder F43.10 and Borderline personality disorder F60.3 [facility] [address] [place] [address] 91304- 3930 03 Mar, 2016 Essential (primary) hypertension I10 [facility] [address] [place] [id number] [place] [address] 96064- 8141 Feb, [facility] [address] [place] [id number] [place] [address] 42117- 8520 14 Feb, 2016 [facility] [address] [place] [id number] [place] [address] 77010- 2493 11 Feb, 2016 Pelvic pain R10.2 ; Lipid screening Z13.220 ; Fatigue, unspecified type R53.83 and Weight gain R63.5 [facility] [address] [place] [id number] [place] [address] 17176- 4708 Feb, Bipolar disorder F31.9 ; Posttraumatic stress disorder F43.10 and Borderline personality disorder F60.3 [facility] [address] [place] [id number] [place] [address] 62205- 6212 Feb, [facility] [address] 97720- 8274 Feb, [facility] [address] [place] [id number] [place] [address] 76828- 0169 30 Jan, 2016 Obstructive sleep apnea syndrome G47.33 [facility] [address] [place] [id number] [place] [address] 83953- 0988 26 Jan, [address] [id number] [place] [address] [id number] 19 Jan, 2016 Dental examination Z01.20 [facility] [address] [place] [id number] [place] [address] 13309- 7057 13 Jan, 2016 Bipolar 1 disorder F31.9 ; Posttraumatic stress disorder F43.10 and Social anxiety disorder F40.10 [facility] [address] [place] [id number] [place] [address] 48693- 7908 Jan, Bipolar disorder F31.9 ; Posttraumatic stress disorder F43.10 and Borderline personality disorder F60.3 [facility] [address] [place] [id number] [place] [address] 50552- 5938 Jan, Sciatica of left side M54.32 [facility] [address] [place] [id number] [place] [address] 38928- 2751 Jan, [facility] [address] [place] [id number] [place] [address] 42941- 7732 Dec, [facility] [address] [place] [id number] [place] [address] 99345- 5403 Dec, [facility] [address] [address]- 6412 Dec, Bipolar disorder F31.9 ; Posttraumatic stress disorder F43.10 and Borderline personality disorder F60.3 [facility] [address] [address]- 7099 Nov, [facility] [address] [place] [address] 92927- 1230 Nov, Insomnia, unspecified type G47.00 [facility] [address] [place] [address] 00846- 8158 Nov, Bipolar disorder F31.9 ; Posttraumatic stress disorder F43.10 and Borderline personality disorder F60.3 [facility] [address] [place] [address] 53439- 9914 Nov, [facility] [address] [place] [id number] [place] [address] 56499- 8498 Nov, [facility] [address] [place] [address] 86195- 3858 Oct, Bipolar disorder F31.9 ; Posttraumatic stress disorder F43.10 and Borderline personality disorder F60.3 [facility] [address] [address]- 5962 Oct, [place] [address] [place] [address] 00111- 5994 Oct, Essential (primary) hypertension I10 [facility] [address] [place] [address] 45369- 4225 September, Bipolar 1 disorder F31.9 ; Posttraumatic stress disorder F43.10 and Social anxiety disorder F40.10 [facility] [address] [address]- 2009 September, Bipolar disorder F31.9 ; Posttraumatic stress disorder F43.10 and Borderline personality disorder F60.[address] [id number] [id number] September, Encounter for dental examination and cleaning without abnormal findings Z01.20 [place] [address] [place] [address] 49167- 0174 September, [facility] [address] [place] [id number] [place] [address] 07107986- 9105 September, [place] [address] [place] [id number] [place] [address] 41172- 0907 Aug, [place] [address] [place] [id number] [place] [address] 65594- 5352 Aug, Bipolar disorder F31.9 ; Posttraumatic stress disorder F43.10 and Borderline personality disorder F60.3 [place] [id number] [place] [address] 91009- 4164 Aug, [place] [id number] [place] [address] 31889- 3535 Aug, [place] [address] [place] [id number] [place] [address] 94619- 6770 Aug, [facility] [id number] [place] [address] [id number] Jul, Acute nasopharyngitis [common cold] J00 and Other viral agents as the cause of diseases classified elsewhere B97.89 [address] [place] [address] 77830- 4687 Jul, Chronic pain G89.29 and Allergic rhinitis J30.9 [address] [place] [address] 14157- 1831 Jul, Bipolar 1 disorder F31.9 ; Posttraumatic stress disorder F43.10 and Social anxiety disorder F40.10 [place] [id number] [place] [address] 88953- 7510 Jul, Bipolar 1 disorder F31.9 [place] [address] [place] [address] 29342- 0934 Jul, Bipolar disorder F31.9 ; Posttraumatic stress disorder F43.10 and Borderline personality disorder F60.3 [facility] [address] [address]- 7026 14 Jul, 2015 [facility] [address] [place] [address] 94958 2546 14 Jul, 2015 [facility] [address] [place] [id number] [place] [address] 65759- 9466 11 Jul, 2015 [facility] [address] [place] [id number] [place] [address] 30025 2546 10 Jul, 2015 Anxiety F41.9 [facility] [address] [place] [id number] [place] [address] 57789- 7976 10 Jul, 2015 Chronic pain G89.29 and Encounter for therapeutic drug level monitoring Z51.81 [facility] [address] [place] [address] 26886- 7658 09 Jul, 2015 Chronic pain G89.29 and Encounter for therapeutic drug level monitoring Z51.81 [facility] [address] [place] [address] 54812- 0854 08 Jul, 2015 [facility] [address] [place] [id number] [place] [address] 14510- [id number] Jun, [facility] [id number] [place] [address] 29928- 8244 Jun, [facility] [id number] [place] [address] [id number] 2546 15 Jun, 2015 [facility] [id number] [place] [address] 48049- 2546 15 Jun, 2015 [facility] [id number] [place] [address] 18529- 2072 Jun, High risk medication use V58.69 [facility] [id number] [place] [address] 51754- 2146 09 Jun, 2015 [facility] [id number] [place] [address] 16805- 6257 Jun, Bipolar 1 disorder F31.9 ; Overdose T50.901A and Chronic pain G89.29 [facility] [id number] [place] [address] 74114- 1241 Jun, Bipolar disorder F31.9 ; Posttraumatic stress disorder F43.10 and Borderline personality disorder F60.3 [facility] [id number] [place] [address] 45609- 1748 Jun, [facility] [address] [id number] [place] [address] 24641- 5864 Jun, [facility] [id number] [place] [address] 53072- 9368 Jun, Keloid L91.0 [facility] [id number] [place] [address] 55141- 3863 Jun, [facility] [id number] [place] [address] 07308- 2835 May, [facility] [id number] [place] [address] 73737- 1484 May, [facility] [id number] [place] [address] 49148- 9876 May, Pelvic pain R10.2 [facility] [id number] [place] [address] 45685- 3656 May, [facility] [id number] [place] [address] 77875- 4682 May, Pain of left thumb M79.645 ; Incisional pain R20.8 ; Pelvic pain R10.2 and Essential hypertension I10 [facility] [id number] [place] [address] 06629- 1817 May, [facility] [id number] [place] [address] 35972- 9993 May, [facility]IO [address] [id number] [place] [id number] May, Dental examination Z01.20 and Necrosis of pulp K04.1 [facility] [id number] [address] 5729 Apr, [facility] [id number] [address] 8816 Apr, [facility] [id number] [address]- 3095 Apr, [facility] [id number] 8514 Apr, [facility] [id number] [address] 1942 Apr, [facility] [id number] [address]- 2538 Apr, [facility] [id number] [address]- 2859 Apr, [facility] [id number] [address]- 4248 Apr, [facility] [id number] [address]- 7718 Mar, [facility] [id number] [address]- 5340 Mar, [facility] [id number] [address]- 1185 Mar, [facility] [place] [facility] [address] [id number] [address]- 1460 Mar, [facility] [id number] [address]- 9189 Feb, [facility] [place] [facility] [address] [id number] [address]- 9923 Feb, [facility] [id number] [address]- 3684 Feb, [facility] [id number] [address]- 0521 Feb, [facility] [id number] [address]- 9405 Feb, [facility] [id number] [address]- 4322 Feb, [facility] [id number] [place] [address] 65225- 0217 Feb, [facility] [id number] [place] [address] 22860- 9036 Feb, Dermatofibroma of left lower leg D23.72 [facility] [id number] [address]- 8883 Feb, Hematochezia 578.1 ; Low back pain M54.5 ; High risk medication use V58.69 ; Cervicalgia M54.2 and Anxiety F41.[address] [id number] [id number] Feb, Dental examination Z01.20 ; Pulpitis K04.0 and Dental caries, unspecified K02.[address] [id number] [id number] Feb, Dental examination Z01.20 [facility] [id number] [address]- 7546 30 Jan, 2015 [facility] [id number] [address]- 7676 Jan, [facility] [id number] [address]- 9743 Jan, [facility] [id number] [address]- 1471 Jan, [facility] [id number] [address]- 0732 Dec, [facility] [address] [id number] [place] [address]- 1034 Dec, [facility] [address] [id number] [place] [address]- 6401 Dec, [facility] [address] [id number] [place] [address]- 6368 Dec, [facility] [address] [id number] [place] [address]- 3754 Dec, [facility] [address] [id number] [place] [address]- 3500 Dec, [facility] [address] [id number] [place] [address]- 8760 Dec, [facility] [address] [id number] [place] [address]- 5498 Dec, [facility] [address] [id number] [id number] Nov, Encounter for removal of sutures V58.32 [facility] [address] [id number] [address]- 2880 Nov, [facility] [address] [id number] [address]- 0666 Nov, [facility] [address] [id number] [address]- 8195 Nov, [facility] [place] [facility] [address] [id number] [address]- 6601 Nov, [facility] [place] [facility] [address] [id number] [place] [address]- 5461 Nov, [facility] [place] [facility] [address] [id number] [place] [address]- 5188 Nov, [facility] [place] [facility] [address] [id number] [address]- 9472 Nov, [facility] [place] [facility] [id number] [address]- 3266 Nov, Dermatofibroma 216.9 [facility] [id number] [address]- 9450 Nov, [facility] [id number] [address]- 9753 Nov, [facility] [id number] [address]- 8547 Oct, [facility] [id number] [address]- 5020 Oct, Hematochezia 578.1 ; Abscess 682.9 ; GERD (gastroesophageal reflux disease) 530.81 ; Visual disturbance of one eye 368.9 and High risk medication use V58.69 [facility] [id number] [address]- 2263 Oct, [facility] [id number] [address]- 2331 Oct, [facility] [id number] [address]- 4187 Oct, [facility] [id number] [address]- 9878 September, [facility] [id number] [address]- 1268 September, [facility] [id number] [address]- 5361 September, [facility] [id number] [address]- 1776 September, [facility] [id number] 9148 September, [facility] [address] [id number] [address]- 9203 September, Colon cancer screening V76.51 [facility] [id number] [address]- 1243 September, [facility] [place] [facility] [address] [id number] [place] [address]- 4372 Aug, [facility] [place] [facility] [address] [id number] [place] [address]- 1961 Aug, [facility] [place] [facility] [address] [id number] [place] [address]- 5663 Jul, [facility] [place] [facility] [address] [id number] [place] [address]- 5377 Jul, [facility] [place] [facility] [address] [id number] [place] [address]- 9745 Jul, [facility] [place] [facility] [address] [facility] [id number] [place] [address]- 5025 Jul, [facility] [place] [facility] [address] [id number] [place] [address]- 2538 Jun, [facility] [place] [facility] [address] [id number] [place] [address]- 3445 Jun, [facility] [place] [facility] [address] [id number] [place] [address]- 4181 Jun, [facility] [place] [facility] [address] [facility] [id number] [place] [address]- 7292 Jun, [facility] [place] [facility] [address] [id number] [place] [address]- 7566 Jun, [facility] [place] [facility] [address] [id number] [place] [address]- 2854 Jun, [facility] [place] [facility] [address] [id number] [place] [address]- 1444 May, [facility] [place] [facility] [address] [id number] [place] [address]- 3732 May, [facility] [place] [facility] [address] [id number] [place] [address]- 1896 May, [facility] [place] [facility] [address] [id number] [place] [address]- 1636 May, [facility] [place] [facility] [address] [id number] [place] [address]- 1060 May, [facility] [place] [facility] [address] [id number] [place] [address]- 6817 May, [facility] [place] [facility] [address] [id number] [place] [address]- 2610 May, [facility] [place] [facility] [address] [id number] [place] [address]- 2185 May, [facility] [place] [facility] [address] [id number] [place] [address]- 2174 Apr, [facility] [place] [facility] [address] [id number] [place] [address]- 0040 Apr, [facility] [place] [facility] [address] [id number] [place] [address]- 8952 Apr, [facility] [place] [facility] [address] [id number] [place] [address]- 1224 Apr, [facility] [place] [facility] [address] [id number] [place] [address]- 3371 Apr, [facility] [place] [facility] [address] [id number] [place] [address]- 5786 Apr, [facility] [place] [facility] [address] [id number] [place] [address]- 3366 Apr, [facility] [place] [facility] [address] [id number] [place] [address]- 6303 Apr, [facility] [place] [facility] [address] [id number] [place] [address]- 3366 Mar, [facility] [place] [facility] [address] [id number] [place] [address]- 0475 Mar, [facility] [place] [facility] [address] [id number] [place] [address]- 7346 Mar, [facility] [place] [facility] [address] [id number] [place] [address]- 2806 Mar, [facility] [place] [facility] [address] [id number] [place] [address]- 3558 Mar, [facility] [place] [facility] [address] [id number] [place] [address]- 9447 Mar, [facility] [place] [facility] [address] [id number] [place] [address]- 6071 Mar, [facility] [place] [facility] [address] [id number] [place] [address]- 5994 Mar, [facility] [place] [facility] [address] [id number] [place] [address]- 4284 Mar, [facility] [place] [facility] [address] [id number] [place] [address]- 8811 Mar, [facility] [place] [facility] [address] [id number] [place] [address]- 5800 Feb, [facility] [place] [facility] [address] [id number] [place] [address]- 4666 Feb, [facility] [place] [facility] [address] [id number] [place] [address]- 7971 Jan, [facility] [place] [facility] [address] [id number] [place] [address]- 1268 Jan, [facility] [place] [facility] [address] [id number] [place] [address]- 4441 Jan, [facility] [place] [facility] [address] [id number] [place] [address]- 6451 Jan, [facility] [place] [facility] [address] [id number] [place] [address]- 7126 Dec, [facility] [place] [facility] [address] [id number] [place] [address]- 7117 Dec, [facility] [place] [facility] [address] [id number] [place] [address]- 8326 Dec, [facility] [place] [facility] [address] [id number] [place] [address]- 1860 Dec, [facility] [place] [facility] [address] [id number] [place] [address]- 2946 Dec, [facility] [place] [facility] [address] [id number] [place] [address]- 0927 Dec, [facility] [place] [facility] [address] [id number] [place] [address]- 3464 Nov, [facility] [place] [facility] [address] [id number] [place] [address]- 8068 Nov, [facility] [place] [facility] [address] [id number] [place] [address]- 1070 Oct, [facility] [place] [facility] [address] [id number] [place] [address]- 2358 Oct, [facility] [place] [facility] [address] [id number] [place] [address]- 6631 Oct, [facility] [place] [facility] [address] [id number] [place] [address]- 6357 Oct, [facility] [place] [facility] [address] [id number] [place] [address]- 3414 September, [facility] [place] [facility] [address] [id number] [place] [address]- 5797 September, [facility] [place] [facility] [address] [id number] [place] [address]- 0141 September, [facility] [place] [facility] [address] [id number] [place] [address]- 1563 September, [facility] [place] [facility] [address] [id number] [place] [address]- 8062 September, [facility] [place] [facility] [address] [id number] [address]- 3466 September, [facility] [address] [id number] [place] [address]- 8347 September, [facility] [place] [facility] [address] [id number] [place] 4515 September, [facility] [place] [facility] [address] [id number] [place] [address]- 9323 Aug, [facility] [place] [facility] [address] [id number] [place] [address]- 5494 Aug, [facility] [place] [facility] [address] [id number] [place] [address]- 2632 Aug, [facility] [place] [facility] [address] [id number] [place] [address]- 6430 Aug, [facility] [place] [facility] [address] [facility] [id number] [place] [address]- 9818 Aug, [facility] [place] [facility] [address] [id number] [place] [address]- 5841 Aug, [facility] [place] [facility] [address] [id number] [place] [address]- 3957 Jul, [facility] [place] [facility] [address] [facility] [id number] [place] [address]- 8937 Jul, [facility] [place] [facility] [address] [id number] [place] [address]- 4031 Jul, [facility] [place] [facility] [address] [facility] [id number] [place] [address]- 2645 Jul, [facility] [place] [facility] [address] [id number] [place] [address]- 8756 Jun, [facility] [place] [facility] [address] [id number] [place] [address]- 2603 Jun, [facility] [place] [facility] [address] [facility] [id number] [place] [address]- 6492 Jun, [facility] [place] [facility] [address] [id number] [place] [address]- 7256 Jun, [facility] [address] [id number] [place] [address]- 8138 Jun, [facility] [address] [id number] [place] [address]- 5636 Jun, [facility] [address] [id number] [place] [address]- 7811 May, [facility] [address] [id number] [place] [address]- 2475 May, [facility] [address] [id number] [place] [address]- 1100 May, [facility] [address] [id number] [place] [address]- 0260 May, [facility] [address] [id number] [place] [address]- 7154 May, [facility] [address] [id number] [place] [address]- 0660 May, [facility] [address] [id number] [place] [address]- 0596 May, [facility] [address] [id number] [place] [address]- 4300 May, [facility] [address] [id number] [place] [address]- 6191 Apr, [facility] [address] [place] [id number] Apr, [facility] [address] [id number] [place] [address]- 6506 Apr, [facility] [address] [id number] [place] [address]- 2546 Apr, [facility] [address] [id number] [place] [address]- 5414 Apr, [facility] [place] [facility] [address] [id number] [place] [address]- 9806 Apr, [facility] [place] [facility] [address] [id number] [place] [address]- 7808 Apr, [facility] [place] [facility] [address] [id number] [place] [address]- 2906 Apr, [facility] [place] [facility] [address] [id number] [place] [address]- 2875 Apr, [facility] [place] [facility] [address] [id number] [place] [address]- 9377 Mar, [facility] [place] [facility] [address] [id number] [place] [address]- 9688 Mar, [facility] [place] [facility] [address] [id number] [place] [address]- 7675 Mar, [facility] [place] [facility] [address] [id number] [place] [address]- 7486 Mar, [facility] [place] [facility] [address] [id number] [place] [address]- 2332 Mar, [facility] [place] [facility] [address] [id number] [place] [address]- 3095 Feb, [facility] [place] [facility] [address] [id number] [place] [address]- 3179 Feb, [facility] [place] [facility] [address] [id number] [place] [address]- 9307 14 Feb, 2013 [facility] [place] [facility] [address] [id number] [place] [address]- 9457 14 Feb, 2013 [facility] [place] [facility] [address] [id number] [place] [address]- 7726 25 Jan, 2013 [facility] [place] [facility] [address] [id number] [place] [address]- 9827 24 Jan, 2013 [facility] [place] [facility] [address] [id number] [place] [address]- 9606 Jan, [facility] [address] [id number] [place] [address]- 2036 Dec, [facility] [place] [facility] [address] [facility] [id number] [place] [address]- 5926 Dec, [facility] [address] [id number] [place] [address]- 2546 Dec, [facility] [place] [address] [facility] [id number] [id number] Nov, [facility] [address] [facility] [id number] [place] [id number] Oct, [facility] [place] [facility] [address] [id number] [address] Oct, [facility] [place] [facility] [address] [facility] [id number] [place] [address] September, [facility] [place] [facility] [address] [id number] [place] [address] September, [facility] [place] [facility] [address] [id number] [place] [address] September, [facility] [place] [facility] [address] [facility] [id number] [place] [address] September, [facility] [place] [facility] [address] [id number] [place] [address] September, [facility] [place] [facility] [address] [id number] [place] [address] Jul, [facility] [place] [facility] [address] [id number] [place] [address] Jul, [facility] [place] [facility] [address] [id number] [place] [address] Jul, [facility] [place] [facility] [address] [id number] [place] [address] Jul, [facility] [place] [facility] [address] [id number] [place] [address] Jun, [facility] [address] [id number] [place] [address] Jun, [facility] [place] [facility] [address] [id number] [place] [address] Jun, 2012 [facility] [address] [id number] [place] [address] Jun, [facility] [place] [facility] [address] [id number] [place] [address] May, [facility] [address] [id number] [place] [address] Mar, [facility] [address] [id number] [place] [address] Mar, [facility] [address] [id number] [place] [address] Mar, [facility] [address] [id number] [place] [address] Mar, [facility] [place] [facility] [address] [facility] [id number] [place] [address] Mar, [facility] [address] [facility] [id number] [place] [address] Mar, [facility] [place] [facility] [address] [id number] [place] [address] Mar, [facility] [place] [facility] [address] [id number] [place] [address] Mar, [facility] [place] [facility] [address] [facility] [id number] [place] [address] Feb, [facility] [place] [facility] [address] [id number] [place] [address] Feb, [facility] [place] [facility] [address] [id number] [place] [address] Feb, [facility] [address] [id number] [place] [address] Feb, [facility] [place] [facility] [address] [id number] [place] [address] Feb, [facility] [place] [facility] [address] [id number] [place] [address] Feb, [facility] [address] [id number] [place] [address] Feb, [facility] [address] [id number] [place] [id number] Jan, [facility] [address] [id number] [place] [id number] Dec, [facility] [address] [id number] [place] [id number] Dec, [facility] [place] [facility] [address] [id number] [place] [address] Nov, [facility] [place] [facility] [address] [id number] [place] [address] Nov, [facility] [place] [facility] [address] [facility] [id number] [place] [address] Oct, [facility] [place] [facility] [address] [facility] [id number] [place] [address] Jul, [facility] [place] [facility] [address] [id number] [place] [address] Jul, [facility] [place] [facility] [address] [id number] [place] [address] May, [facility] [place] [facility] [address] [id number] [place] [address] May, [facility] [place] [facility] [address] [facility] [id number] [place] [address] Nov, [facility] [place] [facility] [address] [id number] [place] [address] Mar, [facility] [address] [facility] [id number] [place] [address] Dec, [facility] [address] [id number] [address] Nov, [facility] [address] [id number] [address] Aug, [facility] [id number] [place] [address] Apr, [facility] [address] [id number] [address] Apr, [facility] [id number] [address] Mar, [facility] [id number] [address] Feb, [facility] [id number] [address] September, [facility] [address] [id number] [address] Jun, [facility] [address] [id number] [address] Mar, IMMUNIZATIONS No Known Immunizations SOCIAL HISTORY Never Assessed REASON FOR VISIT Lab (walk-in) PLAN OF CARE VITAL SIGNS MEDICATIONS Unknown Medications RESULTS Name Result Date Reference Range CBC 2017-11-17 WHITE BLOOD CELL COUNT 6.3 3.8-10.8 RED BLOOD CELL COUNT 2.81 3.80-5.10 HEMOGLOBIN 9.5 11.7-15.5 HEMATOCRIT 27.1 35.0-45.0 MCV 96.4 80.0-100.0 MCH 33.8 27.0-33.0 MCHC 35.1 32.0-36.0 RDW 19.0 11.0-15.0 PLATELET COUNT 233 140-400 MPV 9.7 7.5-12.5 ABSOLUTE NEUTROPHILS 3371 [id number] ABSOLUTE LYMPHOCYTES 2300 850-3900 ABSOLUTE MONOCYTES 599 200-950 ABSOLUTE EOSINOPHILS 13 15-500 ABSOLUTE BASOPHILS 19 0-200 NEUTROPHILS 53.5 LYMPHOCYTES 36.5 MONOCYTES 9.5 EOSINOPHILS 0.2 BASOPHILS 0.3 PROCEDURES Procedure Date Ordered Result Body Site LAB [facility] November 17, 2017 VENIPUNCT, ROUTINE* November 17, 2017 INSTRUCTIONS MEDICATIONS ADMINISTERED No Known Medications [...] hernia Hospitalization History Went by ambulance to [place] as unresponsive 05/2015 Hospitalization History [place] sent her to [facility] for a psych hold 05/2015
--- OUTSIDE RECORDS SUMMARY | 2018-03-15 10:50 | XMS REPORT ---
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 Name Role Phone HERBERT MCGOWAN Unavailable PROBLEMS Type Condition ICD9-CM Code [id number] Code Onset Dates Condition Status SNOMED Code Problem Psoriasis L40.9 Active 3316706 Problem Relationship problem with family member Z63.8 Active 821234717 Problem Essential hypertension I10 Active 99638083 Problem Anxiety F41.9 Active 06815685 Problem Visual disturbance H53.9 Active 24932433 Problem Rheumatoid arthritis involving multiple sites with positive rheumatoid factor M05.79 Active 831789006 Problem Bilateral low back pain with sciatica, sciatica laterality unspecified M54.40 Active 003458142 Problem Hypokalemia E87.6 Active 32191616 Problem Lumbago with sciatica, left side M54.42 Active 112013777 Problem Other chronic pain G89.29 Active 06992871 Problem 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 Active 701905322 Problem Blindness of right eye H54.40 Active 958860548 Problem Posttraumatic stress disorder F43.10 Active 07454923 Problem Overdose T50.901A Active 80914931 Problem Bipolar disorder F31.9 Active 98248314 Problem Borderline personality disorder F60.3 Active 21139143 Problem Obstructive sleep apnea G47.33 Active 45749854 Problem Acquired hypothyroidism E03.9 Active 863775956 Problem Pelvic pain R10.2 Active 83887673 Problem Chronic pain G89.29 Active 81616253 Problem Gastro-esophageal reflux disease without esophagitis K21.9 Active 353199318 Problem Anemia due to other cause, not classified D64.89 Active 080061916 Problem Social anxiety disorder F40.10 Active 21434477 Problem Morbid obesity, unspecified obesity type E66.01 Active 995067894 ALLERGIES Substance Reaction Event Type Date Status Sulfamethoxazole-Trimethoprim Unknown Drug Allergy Oct, Active Iodine Unknown Drug Allergy Oct, Active Codeine Sulfate Unknown Drug Allergy Oct, Active Aspirin Unknown Drug Allergy Oct, Active shell fish Unknown Non Drug Allergy Oct, Active IVP dye Unknown Non Drug Allergy Oct, Active tape Unknown Non Drug Allergy Oct, Active strawberries Unknown Non Drug Allergy Oct, Active tomatoes Unknown Non Drug Allergy Oct, Active ENCOUNTERS Encounter Location Date Diagnosis [place] [id number] [place] [address] 06306- 1869 Feb, [place] [id number] [place] [address] 29851- 8283 Feb, [place] [address] [place] [id number] [place] [address] 39999- 4638 Feb, [place] [id number] [place] [address] 60932- 7226 Dec, Bipolar disorder F31.9 ; Posttraumatic stress disorder F43.10 and Borderline personality disorder F60.3 [place] [id number] [place] [address] 38032- 9441 Dec, 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 ; Anemia due to other cause, not classified D64.89 ; Rheumatoid arthritis involving multiple sites with positive rheumatoid factor M05.79 ; 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 ; Dysuria R30.0 ; Urinary tract infection without hematuria, site unspecified N39.0 and Blindness of right eye H54.40 [place] [address] [address] 57[address] Dec, [place] [id number] [place] [address] 64769- 1606 Dec, [place] [address] [id number] [id number] Dec, Dental examination Z01.20 [place] [id number] [place] [address] 66692- 1057 Nov, Bipolar disorder F31.9 ; Posttraumatic stress disorder F43.10 and Borderline personality disorder F60.3 [place] [address] [place] [address] 90776- 1227 Nov, Rheumatoid arthritis involving multiple sites with positive rheumatoid factor M05.79 ; Dysuria R30.0 and Blindness of right eye H54.40 [place] [address] [place] [id number] [place] [address] 10375- 7650 Nov, Bipolar disorder F31.9 ; Posttraumatic stress disorder F43.10 ; Social anxiety disorder F40.10 and Relationship problem with family member Z63.8 [place] [address] [place] [id number] [place] [address] 09724- 2445 Nov, [place] [address] [place] [id number] [place] [address] 00567- 7255 Nov, [place] [address] [place] [id number] [place] [address] 24437- 6310 Nov, 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 ; Adverse effect of antineoplastic and immunosuppressive drugs, initial encounter T45.1X5A ; Anemia , unspecified D64.9 and BMI 40.0-44.9, adult Z68.41 [place] [address] [place] [id number] [place] [address] 54189- 7831 Nov, Anemia due to other cause, not classified D64.89 [place] [address] [place] [address] 12833- 6637 Oct, Adverse effect of drug, initial encounter T50.905A and Acute anemia D64.9 [place] [address] [place] [address] 17343- 6164 Oct, Anemia due to other cause, not classified D64.89 ; Dysuria R30.0 and Urinary tract infection without hematuria, site unspecified N39.0 [place] [address] [address]- 4585 Oct, [place] [address] [place] [id number] [place] [address] 83944- 4102 Oct, [place] [address] [address] 3091 Oct, 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 [facility] [id number] [place] [id number] Oct, [facility] [address] [address]- 1264 Oct, [facility] [id number] [place] [address] 35082- 5152 Oct, [facility] [address] [address]- 9257 Oct, Bipolar disorder F31.9 ; Posttraumatic stress disorder F43.10 and Borderline personality disorder F60.3 [place] [address] [address]- 6607 Oct, Rheumatoid arthritis involving multiple sites with positive rheumatoid factor M05.79 ; 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 and Anxiety F41.9 [facility] [address] [address]- 8830 Oct, [facility] [address] [place] [address] 60442- 4333 September, 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 [facility] [address] [address] 3793 September, Bipolar disorder F31.9 ; Posttraumatic stress disorder F43.10 and Borderline personality disorder F60.3 [facility] [address] [address]- 2480 Aug, BMI 40.0-44.9, adult Z68.41 ; Bipolar disorder F31.9 ; Posttraumatic stress disorder F43.10 and Social anxiety disorder F40.10 [facility] [address] [id number] [address]- 7235 Aug, Bipolar disorder F31.9 ; Posttraumatic stress disorder F43.10 and Borderline personality disorder F60.3 [facility] [address] [place] [address] 77318- 5581 Aug, 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 [place] [address] [place] [id number] [place] [address] 90462- 8596 Jul, Bipolar disorder F31.9 ; Posttraumatic stress disorder F43.10 and Borderline personality disorder F60.3 [place] [address] [place] [id number] [place] [address] 64132- 7592 Jul, [place] [address] [place] [id number] [place] [address] 26307- 9874 Jun, Bipolar disorder F31.9 ; Posttraumatic stress disorder F43.10 and Borderline personality disorder F60.3 [place] [address] [place] [id number] [place] [address] 18146- 6647 Jun, Blindness of right eye H54.40 and Acquired hypothyroidism E03.9 [place] [address] [place] [id number] [place] [address] 67553- 1293 Jun, [place] [address] [place] [id number] [place] [address] 75791- 3723 May, Posttraumatic stress disorder F43.10 ; Social anxiety disorder F40.10 and Bipolar disorder F31.9 [place] [address] [place] [address] 42355- 7731 May, Bipolar disorder F31.9 ; Posttraumatic stress disorder F43.10 and Borderline personality disorder F60.3 [place] [address] [place] [address] 21479- 8847 May, [place] [address] [place] [address] 05164- 6799 May, [place] [address] [place] [address] 49781- 8623 Apr, Bipolar disorder F31.9 ; Posttraumatic stress disorder F43.10 and Borderline personality disorder F60.3 [address] [place] [id number] Apr, [facility] [id number] [place] [address] 64301- 8499 Apr, [facility] [address] [place] [id number] [place] [address] 16697- 9387 Mar, Hydradenitis L73.2 [facility] [address] [place] [address] 14624- 6284 15 Mar, 2017 Lumbago with sciatica, left side M54.42 ; Other chronic pain G89.29 ; Morbid obesity, unspecified obesity type E66.01 ; Hydradenitis L73.2 and BMI 40.0-44.9, adult Z68.41 [place] [address] [place] [address] 20888- 1180 Mar, Bipolar disorder F31.9 ; Posttraumatic stress disorder F43.10 and Borderline personality disorder F60.3 [address] [place] [address] 07635- 3159 Mar, Social anxiety disorder F40.10 ; Bipolar disorder F31.9 and Relationship problem with family member Z63.8 [place] [id number] [place] [address] 87576- 7372 Mar, [place] [address] [id number] [id number] Mar, Dental examination Z01.20 [place] [id number] [place] [address] 37614- 5993 Mar, [place] [id number] [place] [address] 99524- 8122 Feb, Bipolar disorder F31.9 ; Posttraumatic stress disorder F43.10 and Borderline personality disorder F60.3 [place] [id number] [place] [id number] Feb, [facility] [id number] [place] [address] 97397- 9037 14 Jan, 2017 Bipolar disorder F31.9 ; Posttraumatic stress disorder F43.10 and Borderline personality disorder F60.3 [facility] [place] [address] [id number] [id number] Jan, [facility] [id number] [place] [address] 65729- 4529 Jan, [facility] [id number] [place] [id number] Jan, [facility] [address] [id number] [place] [address] 67611- 0656 Dec, Bipolar disorder F31.9 ; Posttraumatic stress disorder F43.10 and Borderline personality disorder F60.3 [facility] [address] [place] [id number] [place] [address] 57754- 3812 Dec, [facility] [address] [place] [id number] [place] [address] 00714- 5611 Dec, [facility] [address] [place] [address] [id number] Dec, [facility] [address] [place] [address] 23205- 8676 Nov, Bipolar 1 disorder F31.9 ; Posttraumatic stress disorder F43.10 and Social anxiety disorder F40.10 [facility] [address] [place] [address] 44636- 9216 Nov, Bipolar disorder F31.9 ; Posttraumatic stress disorder F43.10 and Borderline personality disorder F60.3 [facility] [address] [address]- 5862 Nov, Morbid obesity, unspecified obesity type E66.01 [facility] [address] [address]- 5311 Nov, [address] [id number] [place] [id number] Oct, Encounter for dental examination and cleaning without abnormal findings Z01.20 [facility] [address] [id number] [place] [address] 99235- 8655 Oct, Morbid obesity, unspecified obesity type E66.01 and Acute seasonal allergic rhinitis due to pollen J30.1 [place] [address] 11065- 5481 Oct, Bipolar disorder F31.9 ; Posttraumatic stress disorder F43.10 and Borderline personality disorder F60.3 [place] [address] 40716- 2796 September, Morbid obesity, unspecified obesity type E66.01 and Psoriasis L40.9 [place] [address] 99487- 5230 September, Bipolar disorder F31.9 ; Posttraumatic stress disorder F43.10 and Borderline personality disorder F60.3 [place] [address] 40575- 9774 September, Chronic pain G89.29 [place] [address] 42130- 0816 Aug, Other acute nonsuppurative otitis media of right ear H65.191 and Morbid obesity, unspecified obesity type E66.01 [place] [address] 63693- 5792 Aug, Bipolar 1 disorder F31.9 ; Posttraumatic stress disorder F43.10 and Social anxiety disorder F40.10 [place] [address] 68352- 6681 Aug, Bipolar disorder F31.9 ; Posttraumatic stress disorder F43.10 and Borderline personality disorder F60.3 [place] [address] 07917- 9797 Jul, Morbid obesity due to excess calories E66.01 ; Gastro- esophageal reflux disease without esophagitis K21.9 and Chronic pain G89.29 [place] [address] [place] [id number] [place] [address] 66424- 9691 Jul, Morbid obesity due to excess calories E66.01 [facility] [address] [address]- 1892 Jul, [facility] [id number] [place] [address] 47612- 3172 Jul, [facility] [address] [id number] [place] [address] 13397- 7878 Jul, Morbid obesity due to excess calories E66.01 [facility] [address] [place] [address] 65798- 7257 Jul, Bipolar disorder F31.9 ; Posttraumatic stress disorder F43.10 and Borderline personality disorder F60.3 [facility] [address] [place] [address] 93289- 7513 16 Jun, 2016 [facility] [address] [id number] [place] [address] 62671- 7412 Jun, Morbid obesity due to excess calories E66.01 [facility] [id number] [place] [address] 13524- 1999 Jun, [facility] [id number] [place] [address] 12553- 1608 Jun, Morbid obesity, unspecified obesity type E66.01 [facility] [address] [place] [address] 86309- 8476 Jun, Bipolar disorder F31.9 ; Posttraumatic stress disorder F43.10 and Borderline personality disorder F60.3 [facility] [address] [address]- 7946 Jun, [facility] [id number] [place] [address] 60991- 5721 Jun, [facility] [address] [place] [address] 80989- 8893 Jun, Acquired hypothyroidism E03.9 and Morbid obesity due to excess calories E66.01 [facility] [address] [id number] [place] [address] 89026- 1151 06 May, 2016 Bipolar disorder F31.9 ; Posttraumatic stress disorder F43.10 and Borderline personality disorder F60.3 [facility] [address] [place] [address] 27424- 8665 13 Apr, 2016 Bipolar 1 disorder F31.9 ; Posttraumatic stress disorder F43.10 and Social anxiety disorder F40.10 [address] [place] [address] [id number] 12 Apr, 2016 Encounter for dental examination Z01.20 [facility] [id number] [place] [address] 27774- 3899 08 Apr, 2016 [facility] [address] [id number] [place] [address] 46740- 5581 Apr, Acquired hypothyroidism E03.9 [place] [address] [place] [id number] [place] [address] 712579- 0859 07 Apr, 2016 Acquired hypothyroidism E03.9 [facility] [address] [place] [id number] [place] [address] 55296- 9517 07 Apr, 2016 Bipolar disorder F31.9 ; Posttraumatic stress disorder F43.10 and Borderline personality disorder F60.3 [facility] [address] [place] [address] 32799- 0167 06 Apr, 2016 Acquired hypothyroidism E03.[address] [id number] [place] [id number] Mar, Encounter for dental examination and cleaning without abnormal findings Z01.20 [facility] [address] [place] [address] 20947- 9958 08 Mar, 2016 [facility] [address] [id number] [place] [address] 80139- 9560 Mar, Bipolar disorder F31.9 ; Posttraumatic stress disorder F43.10 and Borderline personality disorder F60.3 [facility] [address] [id number] [place] [address] 96063- 4393 03 Mar, 2016 Essential (primary) hypertension I10 [facility] [address] [place] [address] 49194- 2197 21 Feb, 2016 [facility] [address] [id number] [place] [address] 75603- 5900 14 Feb, 2016 [facility] [address] [id number] [place] [address] 43934- 1249 11 Feb, 2016 Pelvic pain R10.2 ; Lipid screening Z13.220 ; Fatigue, unspecified type R53.83 and Weight gain R63.5 [place] [address] [id number] [place] [address] 57067- 5607 11 Feb, 2016 Bipolar disorder F31.9 ; Posttraumatic stress disorder F43.10 and Borderline personality disorder F60.3 [place] [id number] [place] [address] 95302- 6478 07 Feb, 2016 [place] [address] [id number] [place] [address] 89224- 8301 05 Feb, 2016 [facility] [address] [id number] [place] [address] 50355- 4546 30 Jan, 2016 Obstructive sleep apnea syndrome G47.33 [place] [address] [place] [id number] [place] [address] 64882- 3879 26 Jan, [address] [id number] [place] [id number] 19 Jan, 2016 Dental examination Z01.20 [place] [address] [id number] [place] [address] 74825- 5220 13 Jan, 2016 Bipolar 1 disorder F31.9 ; Posttraumatic stress disorder F43.10 and Social anxiety disorder F40.10 [place] [address] [id number] [place] [address] 20371- 6522 13 Jan, 2016 Bipolar disorder F31.9 ; Posttraumatic stress disorder F43.10 and Borderline personality disorder F60.3 [facility] [address] [place] [address] 60429- 0587 13 Jan, 2016 Sciatica of left side M54.32 [facility] [id number] [place] [address] 01591- 0137 Jan, [facility] [id number] [place] [address] 31170- 0360 Dec, [facility] [id number] [place] [address] 07126- 1513 Dec, [facility] [id number] [place] [address] 67101- 2015 Dec, Bipolar disorder F31.9 ; Posttraumatic stress disorder F43.10 and Borderline personality disorder F60.3 [facility] [id number] [place] [address] 09065- 8359 Nov, [facility] [id number] [place] [address] 98849- 6249 Nov, Insomnia, unspecified type G47.00 [facility] [id number] [place] [address] 25279- 9280 Nov, Bipolar disorder F31.9 ; Posttraumatic stress disorder F43.10 and Borderline personality disorder F60.3 [facility] [id number] [place] [address] 87331- 2335 Nov, [facility] [id number] [place] [address] 97312- 1803 Nov, [facility] [id number] [place] [address] 97392- 5893 Oct, Bipolar disorder F31.9 ; Posttraumatic stress disorder F43.10 and Borderline personality disorder F60.3 [facility] [id number] [place] [address] 75675- 6917 Oct, [facility] [id number] [place] [address] 32470- 0077 Oct, Essential (primary) hypertension I10 [facility] [id number] [place] [address] 27016- 0231 September, Bipolar 1 disorder F31.9 ; Posttraumatic stress disorder F43.10 and Social anxiety disorder F40.10 [facility] [address] [place] [address] 16262- 1755 September, Bipolar disorder F31.9 ; Posttraumatic stress disorder F43.10 and Borderline personality disorder F60.[address] [id number] [place] [id number] September, Encounter for dental examination and cleaning without abnormal findings Z01.20 [facility] [id number] [place] [address] 52232- 4618 September, [facility] [id number] [place] [address] 98922- 5425 September, [facility] [id number] [place] [address] 14405- 9913 Aug, [facility] [id number] [place] [address] 14998- 1474 Aug, Bipolar disorder F31.9 ; Posttraumatic stress disorder F43.10 and Borderline personality disorder F60.3 [facility] [id number] [place] [address] 28296- 1931 Aug, [facility] [id number] [place] [address] 64684- 4411 Aug, [facility] [id number] [place] [address] 90706- 5047 Aug, [facility] [id number] [place] [address] [id number] Jul, Acute nasopharyngitis [common cold] J00 and Other viral agents as the cause of diseases classified elsewhere B97.89 [facility] [id number] [place] [address] 06306- 5216 Jul, Chronic pain G89.29 and Allergic rhinitis J30.9 [facility] [id number] [place] [address] [phone]- [phone] Jul, Bipolar 1 disorder F31.9 ; Posttraumatic stress disorder F43.10 and Social anxiety disorder F40.10 [facility] [id number] [place] [address] 83238- [phone] 16 Jul, 2015 Bipolar 1 disorder F31.9 [facility] [id number] [address] 2546 16 Jul, 2015 Bipolar disorder F31.9 ; Posttraumatic stress disorder F43.10 and Borderline personality disorder F60.3 [facility] [id number] [place] [address] 70175- 1753 14 Jul, 2015 [facility] [id number] [place] [address] [phone]- 1398 14 Jul, 2015 [facility] [id number] [place] [address] 70470- 4423 11 Jul, 2015 [facility] [id number] [place] [address] 18979- 0178 10 Jul, 2015 Anxiety F41.9 [facility] [id number] [place] [address] 80025- 3884 10 Jul, 2015 Chronic pain G89.29 and Encounter for therapeutic drug level monitoring Z51.81 [facility] [id number] [place] [address] 76491- 4778 09 Jul, 2015 Chronic pain G89.29 and Encounter for therapeutic drug level monitoring Z51.81 [facility] [id number] [address] 08 Jul, 2015 [facility] [id number] [place] [id number] 2549 Jun, [facility] [id number] [place] [address] 74152- 4031 Jun, [facility] [address] [address] 2547 15 Jun, 2015 [facility] [id number] [place] [address] 05268- 1876 15 Jun, 2015 [facility] [id number] [place] [address] 93090- 3765 Jun, High risk medication use V58.69 [facility] [id number] [place] [address] 95837- 4026 Jun, [facility] [id number] [place] [address] 23000- 5288 Jun, Bipolar 1 disorder F31.9 ; Overdose T50.901A and Chronic pain G89.29 [facility] [id number] [place] [address] 53483- 7000 Jun, Bipolar disorder F31.9 ; Posttraumatic stress disorder F43.10 and Borderline personality disorder F60.3 [facility] [id number] [place] [address] 35414- 6998 Jun, [facility] [id number] [place] [address] 67647- 3496 Jun, [facility] [id number] [place] [address] 43055- 6699 Jun, Keloid L91.0 [facility] [id number] [place] [address] 65065- 2277 Jun, [facility] [id number] [place] [address] 62865- 8454 May, [facility] [id number] [place] [address] 65323- 8054 May, [facility] [id number] [place] [address] 51975- 2821 May, Pelvic pain R10.2 [facility] [id number] [place] [address] 95760- 6168 May, [facility] [id number] [place] [address] 92397- 5477 07 Carlos, 2016 Pain of left thumb M79.645 ; Incisional pain R20.8 ; Pelvic pain R10.2 and Essential hypertension I10 [facility] [address] [address]- 1170 May, [facility] [address] [address]- 3737 May, [address] [id number] [id number] May, Dental examination Z01.20 and Necrosis of pulp K04.1 [facility] [id number] [place] [address] 52624- 1548 Apr, [facility] [id number] [place] [address] 02723- 3411 Apr, [facility] [id number] [place] [address] 19040- 9231 Apr, [facility] [id number] [place] [address] 97135- 6693 Apr, [facility] [id number] [place] [address] 40210- 5102 Apr, [facility] [id number] [place] [address] 28247- 1597 Apr, [facility] [address] [address]- 1648 Apr, [facility] [id number] [place] [address] 22161- 3162 Apr, [facility] [address] [address]- 7364 Mar, [facility] [id number] [place] [address] 01721- 6549 Mar, [facility] [address] [address]- 1893 Mar, [facility] [id number] [address]- 7107 Mar, [facility] [address] [address]- 1078 Feb, [facility] [address] [address]- 5622 Feb, [facility] [address] [address]- 4961 Feb, [facility] [id number] [place] [address] 64327- 9438 Feb, [facility] [id number] [place] [address] 74900- 0891 Feb, [facility] [id number] [place] [address] 15678- 5047 Feb, [facility] [id number] [place] [address] 89057- 1345 Feb, [facility] [address] [address]- 0194 Feb, Dermatofibroma of left lower leg D23.72 [facility] [address] [address]- 0170 Feb, Hematochezia 578.1 ; Low back pain M54.5 ; High risk medication use V58.69 ; Cervicalgia M54.2 and Anxiety F41.9 [facility] [address] [id number] [id number] Feb, Dental examination Z01.20 ; Pulpitis K04.0 and Dental caries, unspecified K02.[address] [facility] [address] [id number] [id number] Feb, Dental examination Z01.20 [facility] [address] [address]- 0703 Jan, [facility] [address] [address]- 1793 Jan, [facility] [address] [id number] [place] [address]- 0794 Jan, [facility] [address] [id number] [address]- 2236 Jan, [facility] [address] [id number] [place] [address]- 5954 Dec, [facility] [address] [id number] [address]- 1974 Dec, [facility] [address] [id number] [place] [address]- 2740 Dec, [facility] [address] [id number][place] [address]- 8394 Dec, [facility] [address] [id number][place] [address]- 2667 Dec, [facility] [address] [id number][place] [address]- 6664 Dec, [facility] [address] [id number], [place] [address]- 2937 Dec, [facility] [address] [facility] [id number], [place] [address]- 7861 Dec, [facility] [address] [id number] [id number] Nov, Encounter for removal of sutures V58.32 [facility] [address] [id number][place] [address]- 1273 Nov, [facility] [address] [id number] [address]- 6693 Nov, [facility] [address] [id number][place] [address]- 8193 Nov, [facility] [address] [id number], [place] [address]- 5925 Nov, [facility] [address] [address]- 6821 Nov, [facility] [address] [address]- 4425 Nov, [facility] [address] [address]- 8177 Nov, [facility] [id number] [place] [address] 61555- 2372 Nov, Dermatofibroma 216.9 [facility] [address] [address]- 0685 Nov, [facility] [address] [address]- 9853 Nov, [facility] [address] [address]- 0909 Oct, [facility] [address], [place] [address]- 7031 Oct, Hematochezia 578.1 ; Abscess 682.9 ; GERD (gastroesophageal reflux disease) 530.81 ; Visual disturbance of one eye 368.9 and High risk medication use V58.69 [facility] [address] [address]- 2543 Oct, [facility] [address] [address]- 5492 Oct, [facility] [address] [address]- 3129 Oct, [facility] [address] [address]- 6190 September, [facility] [address], [place] [address]- 3860 September, [facility] [address] [id number] [address]- 1999 September, [facility] [address] [place] [address]- 1081 September, [facility] [place] [facility] [address] [facility] [id number] [place] [address]- 0123 September, [facility] [place] [facility] [address] [facility] [id number] [place] [address]- 5025 September, Colon cancer screening V76.51 [facility] [place] [facility] [address] [facility] [id number] [place] [address]- 4677 September, [facility] [place] [facility] [address] [facility] [id number] [place] [address]- 4092 Aug, [facility] [place] [facility] [address] [facility] [id number] [place] [address]- 1068 Aug, [facility] [place] [facility] [address] [id number] [place] [address]- 4872 Jul, [facility] [place] [facility] [address] [id number] [place] [address]- 1898 Jul, [facility] [place] [facility] [address] [facility] [id number] [place] [address]- 5346 Jul, [facility] [place] [facility] [address] [facility] [id number], [place] [address]- 6500 Jul, [facility] [place] [facility] [address] [id number] [address]- 4331 Jun, [facility] [place] [facility] [address] [facility] [id number], [place] [address]- 6181 Jun, [facility] [place] [facility] [address] [facility] [id number] [place] [address]- 0535 Jun, [facility] [place] [facility] [address] [facility] [id number] [place] [address]- 0908 Jun, [facility] [place] [facility] [address] [facility] [id number] 5350 Jun, [facility] [place] [facility] [address] [facility] [id number][place] [address]- 6426 Jun, [facility] [address] [id number] [place] [address]- 7754 May, [facility] [address] [id number] [place] [address]- 8943 May, [facility] [address] [id number] [place] [address]- 4378 May, [facility] [place] [facility] [address] [id number] [place] [address]- 5880 May, [facility] [address] [id number] [place] [address]- 3746 May, [facility] [address] [id number] [place] [address]- 9952 May, [facility] [address] [facility] [id number] [place] [address]- 2465 May, [facility] [address] [id number] [place] [address]- 0940 May, [facility] [address] [id number] [place] [address]- 1039 Apr, [facility] [address] [facility] [id number] [place] [address]- 4500 Apr, [facility] [address] [id number] [place] [address]- 0457 Apr, [facility] [place] [facility] [address] [id number] [place] [address]- 9209 Apr, [facility] [place] [facility] [address] [id number] [place] [address]- 1573 Apr, [facility] [place] [facility] [address] [id number] [place] [address]- 6998 Apr, [facility] [place] [facility] [address] [facility] [id number] [place] [address]- 7376 Apr, [facility] [place] [facility] [address] [id number] [place] [address]- 9690 Apr, [facility] [place] [facility] [address] [id number] [place] [address]- 1077 Mar, [facility] [place] [facility] [address] [id number] [place] [address]- 3327 Mar, [facility] [place] [facility] [address] [id number] [place] [address]- 5127 Mar, [facility] [place] [facility] [address] [id number] [place] [address]- 5492 Mar, [facility] [place] [facility] [address] [id number] [place] [address]- 2858 Mar, [facility] [place] [facility] [address] [id number] [place] [address]- 2665 Mar, [facility] [place] [facility] [address] [id number] [place] [address]- 6780 Mar, [facility] [place] [facility] [address] [id number] [place] [address]- 6043 Mar, [facility] [place] [facility] [address] [id number] [place] [address]- 2330 Mar, [facility] [place] [facility] [address] [id number] [place] [address]- 8171 Mar, [facility] [place] [facility] [address] [id number] [place] [address]- 7786 Feb, [facility] [place] [facility] [address] [id number] [place] [address]- 7973 Feb, [facility] [place] [facility] [address] [id number] [place] [address]- 7037 Jan, [facility] [place] [facility] [address] [id number] [place] [address]- 4314 25 Jan, 2014 [facility] [place] [facility] [address] [id number] [place] [address]- 2578 Jan, [facility] [place] [facility] [address] [id number] [place] [address]- 7257 Jan, [facility] [place] [facility] [address] [id number] [place] [address]- 5486 Dec, [facility] [place] [facility] [address] [id number] [place] [address]- 1956 Dec, [facility] [place] [facility] [address] [id number] [place] [address]- 6067 Dec, [facility] [place] [facility] [address] [id number] [place] [address]- 4109 Dec, [facility] [place] [facility] [address] [id number] [place] [address]- 5027 Dec, [facility] [place] [facility] [address] [id number] [place] [address]- 6891 Dec, [facility] [place] [facility] [address] [id number] [place] [address]- 1522 Nov, [facility] [place] [facility] [address] [id number] [place] [address]- 6071 Nov, [facility] [place] [facility] [address] [id number] [place] [address]- 0238 Oct, [facility] [place] [facility] [address] [id number] [place] [address]- 4587 Oct, [facility] [place] [facility] [address] [id number], [place] [address]- 0450 Oct, [facility] [place] [facility] [address] [id number] [place] [address]- 3274 Oct, [facility] [place] [facility] [address] [id number] [place] [address]- 1048 September, [facility] [place] [facility] [address] [id number] [place] [address]- 2937 September, [facility] [place] [facility] [address] [id number] [place] [address]- 2901 September, [facility] [address] [id number] [place] [address]- 4605 September, [facility] [place] [facility] [address] [id number] [place] [address]- 7242 September, [facility] [place] [facility] [address] [id number] [place] [address]- 7157 September, [facility] [place] [facility] [address] [id number] [place] [address]- 5398 September, [facility] [place] [facility] [address] [id number] [place] [address]- 4661 September, [facility] [place] [facility] [address] [id number] [place] [address]- 2992 Aug, [facility] [place] [facility] [address] [id number] [place] [address]- 2552 Aug, [facility] [address] [id number] [place] [address]- 4744 Aug, [facility] [place] [facility] [address] [id number] [place] [address]- 9920 Aug, [facility] [address] [id number] [place] [address]- 4039 Aug, [facility] [place] [facility] [address] [id number] [place] [address]- 0436 Aug, [facility] [place] [facility] [address] [id number] [place] [address]- 2862 Jul, [facility] [place] [facility] [address] [id number] [place] 5923 Jul, [facility] [place] [facility] [address] [id number] [place] [address]- 5813 Jul, [facility] [place] [facility] [address] [id number] [place] [address]- 6076 Jul, [facility] [address] [id number] [place] [address]- 0576 Jun, [facility] [address] [id number] [place] [address]- 3923 Jun, [facility] [address] [id number] [place] [address]- 7992 Jun, [facility] [address] [id number] [place] [address]- 7999 Jun, [facility] [address] [id number] [place] [address]- 0743 Jun, [facility] [address] [id number] [place] [address]- 0295 Jun, [facility] [address] [id number] [place] [address]- 0928 May, [facility] [address] [id number] [place] [address]- 0504 May, [facility] [address] [id number] [place] [address]- 4895 May, [facility] [address] [id number] [place] [address]- 2193 May, [facility] [address] [id number], [place] [address]- 5515 May, [facility] [address] [id number], [place] [address]- 5875 May, [facility] [address] [id number] [place] [address]- 7004 May, [facility] [address] [id number][place] [address]- 1835 May, [facility] [address] [id number] [place] [address]- 5396 Apr, [facility] [address] [place] [id number] Apr, 2013 [facility] [address] [id number] [place] [address]- 1974 16 Apr, 2013 [facility] [address] [id number] [place] 8330 16 Apr, 2013 [facility] [address] [id number] [place] [address]- 9257 13 Apr, 2013 [facility] [address] [id number] [place] [address]- 3321 Apr, [facility] [address] [id number] [place] [address]- 8666 05 Apr, 2013 [facility] [address] [id number] [place] [address]- 9303 05 Apr, 2013 [facility] [address] [id number] [place] [address]- 7372 Apr, [facility] [address] [id number], [place] [address]- 9091 Mar, [facility] [address] [id number], [place] [address]- 7197 Mar, [facility] [place] [facility] [address] [id number], [place] [address]- 9471 Mar, [facility] [address] [id number][place] [address]- 6366 Mar, [facility] [place] [facility] [address] [id number][place] [address]- 0732 Mar, [facility] [place] [facility] [address] [id number], [place] [address]- 8287 Feb, [facility] [place] [facility] [address] [id number], [place] [address] 25 Feb, 2013 [facility] [place] [facility] [address] [id number], [place] [address] 14 Feb, 2013 [facility] [place] [facility] [address] [id number] [place] [address] 14 Feb, 2013 [facility] [address] [id number] [place] [address] Jan, [facility] [place] [facility] [address] [id number] [place] [address] Jan, [facility] [address] [id number] [place] [address] Jan, [facility] [address] [id number] [place] [address] Dec, [facility] [address] [id number] [place] [address] Dec, [facility] [address] [id number] [place] [address] Dec, [facility] [address] [id number] Nov, [facility] [address] [id number] [id number] Oct, [facility] [address] [id number] [place] [address] Oct, [facility] [address] [facility] [id number] [place] [address] September, [facility] [address] [id number], [place] [address] September, [facility] [place] [facility] [address] [id number] [place] [address] September, [facility] [place] [facility] [address] [id number] [place] [address] September, [facility] [place] [facility] [address] [id number] [place] [address] September, [facility] [place] [facility] [address] [id number] [place] [address] Jul, [facility] [place] [facility] [address] [id number] [place] [address] Jul, [facility] [place] [facility] [address] [id number] [place] [address] Jul, [facility] [place] [facility] [address] [id number] [place] [address] Jul, [facility] [place] [facility] [address] [id number] [place] [address] Jun, [facility] [place] [facility] [address] [id number] [place] [address] Jun, [facility] [place] [facility] [address] [id number] [place] [address] Jun, [facility] [place] [facility] [address] [id number] [place] [address] Jun, [facility] [place] [facility] [address] [id number] [place] [address] May, [facility] [place] [facility] [address] [id number] [place] [address] Mar, [facility] [place] [facility] [address] [id number] [place] [address] Mar, [facility] [place] [facility] [address] [id number] [place] [address] Mar, [facility] [place] [facility] [address] [id number] [place] [address] Mar, [facility] [place] [facility] [address] [id number] [place] [address] Mar, [facility] [place] [facility] [address] [id number] [place] [address] Mar, [facility] [place] [facility] [address] [id number] [place] [address] Mar, [facility] [place] [facility] [address] [id number] [place] [address] Mar, [facility] [place] [facility] [address] [facility] [id number] [place] [address] Feb, [facility] [place] [facility] [address] [facility] [id number] [place] [address] Feb, [facility] [place] [facility] [address] [facility] [id number] [place] [address] Feb, [facility] [place] [facility] [address] [facility] [id number] [place] [address]- [address]46 Feb, [facility] [place] [facility] [address] [facility] [id number] [place] [address] Feb, [facility] [place] [facility] [address] [facility] [id number] [place] [address] Feb, [facility] [place] [facility] [address] [facility] [id number] [address] Feb, [facility] [address] [facility] [id number] [id number] Jan, [facility] [address] [facility] [id number] [id number] Dec, [facility] [address] [id number] [place] [id number] Dec, [facility] [place] [facility] [address] [facility] [id number], [place] [address] Nov, [facility] [place] [facility] [address] [facility] [id number], [place] [address] Nov, [facility] [place] [facility] [address] [facility] [id number], [place] [address] Oct, [facility] [place] [facility] [address] [facility] [id number], [place] [address]- [address] Jul, [facility] [place] [facility] [address] [facility] [id number], [place] [address] Jul, [facility] [place] [facility] [address] [facility] [id number], [place] [address] May, [facility] [address] [id number] [address] May, [facility] [id number], [place] [address] Nov, [facility] [id number], [place] [address] Mar, [facility] [id number], [place] [address] Dec, [facility] [id number], [place] [address] Nov, [facility] [id number] [place] [address] Aug, [facility] [id number], [place] [address] Apr, [facility] [id number], [place] [address] Apr, [facility] [facility] [id number] [address] Mar, [facility] [id number] [address] Feb, [facility] [id number] [address] September, [facility] [id number] [address] Jun, [facility] [id number] [address] Mar, IMMUNIZATIONS No Known Immunizations SOCIAL HISTORY Never Assessed REASON FOR VISIT low platelets WB-MA, PT was showing signs of dizziness, PT says she is fatigued and has no energy PLAN OF CARE Activity Details Follow Up 4 Weeks Reason:anemia Pending Test HEMOCCULT/FOBT (IN HOUSE) VITAL SIGNS Height 62 in 2017-11-09 Weight 218 lbs 2017-11-09 Temperature 98.4 degrees Fahrenheit 2017-11-09 Heart Rate 116 bpm 2017-11-09 Respiratory Rate 22 2017-11-09 BMI 39.87 kg/m2 2017-11-09 Blood pressure systolic 120 mmHg 2017-11-09 Blood pressure diastolic 68 mmHg 2017-11-09 MEDICATIONS Medication Instructions Dosage Frequency Start Date End Date Duration Status Atovaquone 750 MG/5ML 1 tsp Active Loratadine 10 mg Orally 2 times a day 1 tablet 12h September, 90 days Active Fluocinolone Acetonide 0.01 % Externally twice a day until gone 1 application to affected area 30 Unknown Atorvastatin Calcium 20 MG Orally Once a day 1 tablet 24h 90 Active Combivent Respimat 20-100 MCG/ACT Inhalation Four times a day 1 puff 6h 30 Active Azathioprine Not-Taking Lamotrigine 200 mg Orally Once a day 1 tablet 24h Active Triamcinolone Acetonide 0.5 % Externally Twice a day 1 application to affected area 12h September, Not-Taking Lipitor 20 mg Orally Once a day 1 tablet 24h 90 Not-Taking Creon [id number] UNIT Orally 3 times a day 1 capsule before meals 8h Nov, 30 days Active Sumatriptan 50 mg by oral route One on the one set of migraine 1 tablet Active Ciprofloxacin HCl 500 mg Orally every 12 hrs 1 tablet 12h Oct, Nov, 07 days Active Oxygen 2 L/NC Unknown Prednisone 10 mg by oral route 2 tabs in the morning and 1 in the evening 1 tablet Active Carafate 1 GM Orally 4 times a day 1 tablet on an empty stomach 6h 90 Active Dicyclomine HCl 20 mg 1 tablet Four times a day Orally 30 days 30 Active Fish Oil 300 MG Orally Once a day 1 capsule 24h Active Estradiol 1 MG Orally Once a day 1 tablet 24h Unknown Cymbalta 60 mg Orally Once a day 2 capsule 24h 30 days Active Levothyroxine Sodium 25 MCG Orally Once a day 1 tablet on an empty stomach in the morning 24h 90 days Active Losartan Potassium-HCTZ 50-12.5 MG Orally Once a day 1 tablet 24h 90 Active Contrave 8-90 MG Orally Twice a day 2 tablets 12h Jun, 30 days Unknown Doxepin HCl 10 mg Orally Once at bedtime for sleep 1 capsule at bedtime September, Active Tizanidine HCl 2 MG Orally 2 times a day 1 tablet as needed 12h Feb, 2015 90 days Active Gabapentin 300 MG Orally 3 times a day 1 tablet 8h 90 days Active RESULTS Name Result Date Reference Range UA LONG DIP (IN HOUSE) 2017-11-09 Lot # [id number] Exp date 08/2018 Clarity clear Color yellow Odor GLU negative ELIJAH negative KET negative SG 1.030 BLO trace-intact pH 6.5 Protein negative URO 0.2 E.U NIT positive JESSIE negative Lot # Exp date PROCEDURES Procedure Date Ordered Result Body Site TEST FOR BLOOD, FECES November 09, 2017 URINALYSIS, AUTO, W/O SCOPE November 09, 2017 INSTRUCTIONS MEDICATIONS ADMINISTERED No Known Medications [...] hernia Hospitalization History Went by ambulance to [facility] as unresponsive 05/2015 Hospitalization History [facility] sent her to [facility] for a psych hold 05/2015
--- OUTSIDE RECORDS SUMMARY | 2018-03-15 10:51 | XMS REPORT ---
Author Author STEFANIE NUÑEZ Organization [facility] Address [address] [place] [address] Care Team Providers Care Commodity Management Specialist Name Role Phone STEFANIE NUÑEZ Unavailable PROBLEMS Type Condition ICD9-CM Code LTL66-UF Code Onset Dates Condition Status SNOMED Code Problem Psoriasis L40.9 Active 5767298 Problem Relationship problem with family member Z63.8 Active 275231818 Problem Essential hypertension I10 Active 14665087 Problem Anxiety F41.9 Active 70497111 Problem Visual disturbance H53.9 Active 55155587 Problem Rheumatoid arthritis involving multiple sites with positive rheumatoid factor M05.79 Active 842210646 Problem Bilateral low back pain with sciatica, sciatica laterality unspecified M54.40 Active 674967894 Problem Hypokalemia E87.6 Active 04667621 Problem Lumbago with sciatica, left side M54.42 Active 017564625 Problem Other chronic pain G89.29 Active 67963584 Problem 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 Active 419207024 Problem Blindness of right eye H54.40 Active 500710825 Problem Posttraumatic stress disorder F43.10 Active 80258644 Problem Overdose T50.901A Active 68521260 Problem Bipolar disorder F31.9 Active 16941776 Problem Borderline personality disorder F60.3 Active 87655050 Problem Obstructive sleep apnea G47.33 Active 60294700 Problem Acquired hypothyroidism E03.9 Active 172633442 Problem Pelvic pain R10.2 Active 26946983 Problem Chronic pain G89.29 Active 89927807 Problem Gastro-esophageal reflux disease without esophagitis K21.9 Active 669236603 Problem Anemia due to other cause, not classified D64.89 Active 412418619 Problem Social anxiety disorder F40.10 Active 09406108 Problem Morbid obesity, unspecified obesity type E66.01 Active 306609018 ALLERGIES No Information ENCOUNTERS Encounter Location Date Diagnosis [facility] [address] [facility] [id number] [address] Feb, [facility] [id number], [place] [address] Feb, [facility] [address], [place] [address] Feb, [facility] [id number], [place] [address] Dec, Bipolar disorder F31.9 ; Posttraumatic stress disorder F43.10 and Borderline personality disorder F60.3 [facility] [place] [id number] [address] Dec, 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 ; Anemia due to other cause, not classified D64.89 ; Rheumatoid arthritis involving multiple sites with positive rheumatoid factor M05.79 ; 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 ; Dysuria R30.0 ; Urinary tract infection without hematuria, site unspecified N39.0 and Blindness of right eye H54.40 [facility] [id number], [place] [address] Dec, [place] [address], [place] [address] Dec, [address] [id number] [id number] Dec, Dental examination Z01.20 [facility] [id number], [place] [address] Nov, Bipolar disorder F31.9 ; Posttraumatic stress disorder F43.10 and Borderline personality disorder F60.3 [facility] [address] [facility] [id number], [place] [address] Nov, Rheumatoid arthritis involving multiple sites with positive rheumatoid factor M05.79 ; Dysuria R30.0 and Blindness of right eye H54.40 [facility] [place] [address] [facility] [id number], [place] [address] Nov, Bipolar disorder F31.9 ; Posttraumatic stress disorder F43.10 ; Social anxiety disorder F40.10 and Relationship problem with family member Z63.8 [facility] [address], [place] [address] Nov, [facility] [address], [place] [address] Nov, [facility] [address] [place] [address] 49377- 5343 Nov, 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 ; Adverse effect of antineoplastic and immunosuppressive drugs, initial encounter T45.1X5A ; Anemia , unspecified D64.9 and BMI 40.0-44.9, adult Z68.41 [place] [place] [address] [place] [address] 47838- 0329 Nov, Anemia due to other cause, not classified D64.89 [facility] [address] [place] [address] 82557- 0516 Oct, Adverse effect of drug, initial encounter T50.905A and Acute anemia D64.9 [facility] [address] [place] [address] 08953- 7614 Oct, Anemia due to other cause, not classified D64.89 ; Dysuria R30.0 and Urinary tract infection without hematuria, site unspecified N39.0 [facility] [id number], [place] [address] 5609 Oct, [facility] [address] [place] [address] 45256- 1786 Oct, [facility] [id number], [place] [address] 6801 Oct, 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 [place] [id number] [place] [id number] Oct, [facility] [id number], [place] [address] 7800 Oct, [place] [address], [place] [address]- 9999 Oct, [facility] [id number] [place] [address] 60182- 2372 Oct, Bipolar disorder F31.9 ; Posttraumatic stress disorder F43.10 and Borderline personality disorder F60.3 [place] [place] [address] [place] [address] 30232- 0261 Oct, Rheumatoid arthritis involving multiple sites with positive rheumatoid factor M05.79 ; 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 and Anxiety F41.9 [place] [place] [id number] [place] [address] 82471- 2361 Oct, [facility] [place] [id number] [place] [address] 81848- 1265 September, 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 [facility] [place] [id number] [place] [address] 23932- 8103 September, Bipolar disorder F31.9 ; Posttraumatic stress disorder F43.10 and Borderline personality disorder F60.3 [facility] [place] [address] [place] [address] 84934- 8020 Aug, BMI 40.0-44.9, adult Z68.41 ; Bipolar disorder F31.9 ; Posttraumatic stress disorder F43.10 and Social anxiety disorder F40.10 [facility] [id number] [place] [address] 47196- 6495 Aug, Bipolar disorder F31.9 ; Posttraumatic stress disorder F43.10 and Borderline personality disorder F60.3 [place] [address] [place] [address] 10854- 8525 Aug, 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 [place] [address] [place] [address] 46667- 9545 Jul, Bipolar disorder F31.9 ; Posttraumatic stress disorder F43.10 and Borderline personality disorder F60.3 [facility] [place] [id number] [place] [address] 31267- 7253 Jul, [facility] [address] [place] [address] 37878- 6042 Jun, Bipolar disorder F31.9 ; Posttraumatic stress disorder F43.10 and Borderline personality disorder F60.3 [facility] [address] [place] [address] 39890- 4822 Jun, Blindness of right eye H54.40 and Acquired hypothyroidism E03.9 [facility] [address] [place] [address] 75317- 1241 Jun, [facility] [id number] [place] [address] 76138- 4552 May, Posttraumatic stress disorder F43.10 ; Social anxiety disorder F40.10 and Bipolar disorder F31.9 [facility] [address] [place] [address] 49857- 3308 May, Bipolar disorder F31.9 ; Posttraumatic stress disorder F43.10 and Borderline personality disorder F60.3 [facility] [address] [place] [address] 37343- 8748 May, [facility] [address] [place] [address] 08486- 2916 May, [facility] [address] [place] [address] 85260- 5024 Apr, Bipolar disorder F31.9 ; Posttraumatic stress disorder F43.10 and Borderline personality disorder F60.3 [id number] [id number] Apr, [facility] [address] [place] [address] 89662- 1441 Apr, [facility] [address] [place] [address] 21675- 9045 Mar, Hydradenitis L73.2 [facility] [address] [place] [address] 27541- 4966 Mar, Lumbago with sciatica, left side M54.42 ; Other chronic pain G89.29 ; Morbid obesity, unspecified obesity type E66.01 ; Hydradenitis L73.2 and BMI 40.0-44.9, adult Z68.41 [facility] [address] [place] [address] 27388- 3925 07 Mar, 2017 Bipolar disorder F31.9 ; Posttraumatic stress disorder F43.10 and Borderline personality disorder F60.3 [place] [id number] [place] [address] 34858- 3024 Mar, Social anxiety disorder F40.10 ; Bipolar disorder F31.9 and Relationship problem with family member Z63.8 [facility] [id number] [place] [address] 43869- 0206 Mar, [id number] [place] [id number] Mar, Dental examination Z01.20 [place] [place] [id number] [place] [address] 18399- 8656 Mar, [place] [place] [id number] [place] [address] 22585- 7225 Feb, Bipolar disorder F31.9 ; Posttraumatic stress disorder F43.10 and Borderline personality disorder F60.3 [facility] [address] [id number] Feb, [place] [id number] [place] [address] 78129- 0669 14 Jan, 2017 Bipolar disorder F31.9 ; Posttraumatic stress disorder F43.10 and Borderline personality disorder F60.3 [facility] [id number] [place] [address] [id number] Jan, [place] [id number] [place] [address] 73567- 4453 Jan, [facility] [address] [place] [address] [id number] Jan, [place] [address], [place] [address]- 9467 Dec, Bipolar disorder F31.9 ; Posttraumatic stress disorder F43.10 and Borderline personality disorder F60.3 [place] [address], [place] [address]- 3527 Dec, [place] [address] [place] [address] 38348- 4917 Dec, [address] [id number] Dec, [place] [address] [place] [address] 54320- 7670 Nov, Bipolar 1 disorder F31.9 ; Posttraumatic stress disorder F43.10 and Social anxiety disorder F40.10 [address] [place] [address] 91891- 3108 Nov, Bipolar disorder F31.9 ; Posttraumatic stress disorder F43.10 and Borderline personality disorder F60.3 [place] [address] [place] [address] 92403- 6212 Nov, Morbid obesity, unspecified obesity type E66.01 [place] [address] [place] [address] 52579- 5856 Nov, [address] [id number] [id number] Oct, Encounter for dental examination and cleaning without abnormal findings Z01.20 [place] [address] [place] [address] 88819- 9169 15 Oct, 2016 Morbid obesity, unspecified obesity type E66.01 and Acute seasonal allergic rhinitis due to pollen J30.1 [place] [address] [place] [address] 96785- 1713 Oct, Bipolar disorder F31.9 ; Posttraumatic stress disorder F43.10 and Borderline personality disorder F60.3 [place] [address] [place] [address] 69194- 7591 September, Morbid obesity, unspecified obesity type E66.01 and Psoriasis L40.9 [facility] [id number] [place] [address] September, Bipolar disorder F31.9 ; Posttraumatic stress disorder F43.10 and Borderline personality disorder F60.3 [facility] [place] [id number] [place] [address] 74234- 7125 September, Chronic pain G89.29 [facility] [id number] [place] [address] 15607- 6450 Aug, Other acute nonsuppurative otitis media of right ear H65.191 and Morbid obesity, unspecified obesity type E66.01 [facility] [place] [id number] [place] [address] 04782- 9002 Aug, Bipolar 1 disorder F31.9 ; Posttraumatic stress disorder F43.10 and Social anxiety disorder F40.10 [facility] [place] [id number] [place] [address] 22109- 2574 Aug, Bipolar disorder F31.9 ; Posttraumatic stress disorder F43.10 and Borderline personality disorder F60.3 [place] [id number] [place] [address] 90682- 5028 Jul, Morbid obesity due to excess calories E66.01 ; Gastro- esophageal reflux disease without esophagitis K21.9 and Chronic pain G89.29 [place] [address] [place] [address] 59575- 1947 Jul, Morbid obesity due to excess calories E66.01 [place] [id number] [place] [address] 40387- 9781 Jul, [place] [place] [id number] [place] [address] 22026- 7923 Jul, [facility] [place] [id number] [place] [address] 58339- 0129 Jul, Morbid obesity due to excess calories E66.01 [facility] [address], [place] [address]- 4248 02 Jul, 2016 Bipolar disorder F31.9 ; Posttraumatic stress disorder F43.10 and Borderline personality disorder F60.3 [facility] [address] 6922 16 Jun, 2016 [facility] [id number] [place] [address] 75399- 5306 15 Jun, 2016 Morbid obesity due to excess calories E66.01 [facility] [address] [place] [address] 52950- 0557 10 Jun, 2016 [facility] [id number] [place] [address] 75048- 3212 09 Jun, 2016 Morbid obesity, unspecified obesity type E66.01 [facility] [id number] [place] [address] 57684- 5656 03 Jun, 2016 Bipolar disorder F31.9 ; Posttraumatic stress disorder F43.10 and Borderline personality disorder F60.3 [facility] [address] [place] [address] 13309- 8720 03 Jun, 2016 [facility] [address] [place] [address] 98564- 1171 03 Jun, 2016 [facility] [address] [place] [address] 88757- 6125 02 Jun, 2016 Acquired hypothyroidism E03.9 and Morbid obesity due to excess calories E66.01 [facility] [address] [place] [address] 34616- 8587 May, Bipolar disorder F31.9 ; Posttraumatic stress disorder F43.10 and Borderline personality disorder F60.3 [facility] [address] 2666 Apr, Bipolar 1 disorder F31.9 ; Posttraumatic stress disorder F43.10 and Social anxiety disorder F40.[address] [id number] [id number] 12 Apr, 2016 Encounter for dental examination Z01.20 [facility] [address] [place] [address] 05572- 9661 08 Apr, 2016 [facility] [id number] [place] [address] 67441- 5776 Apr, Acquired hypothyroidism E03.9 [facility] [id number] [place] [address] 931700- 6157 Apr, Acquired hypothyroidism E03.9 [facility] [id number] [place] [address] 251199- 7976 Apr, Bipolar disorder F31.9 ; Posttraumatic stress disorder F43.10 and Borderline personality disorder F60.3 [facility] [address] [place] [address] 83614- 4992 Apr, Acquired hypothyroidism E03.9 [facility] [address] [id number] [id number] Mar, Encounter for dental examination and cleaning without abnormal findings Z01.20 [facility] [address] [place] [address] 63207- 7042 08 Mar, 2016 [facility] [id number] [place] [address] 29004- 9183 Mar, Bipolar disorder F31.9 ; Posttraumatic stress disorder F43.10 and Borderline personality disorder F60.3 [facility] [id number] [place] [address] 90963- 3158 Mar, Essential (primary) hypertension I10 [facility] [address] [place] [address] 98841- 3411 Feb, [facility] [id number] [place] [address] 89862- 2245 Feb, [facility] [address] [place] [address] 68372- 4781 Feb, Pelvic pain R10.2 ; Lipid screening Z13.220 ; Fatigue, unspecified type R53.83 and Weight gain R63.5 [facility] [address] [place] [address] 59195- 7934 Feb, Bipolar disorder F31.9 ; Posttraumatic stress disorder F43.10 and Borderline personality disorder F60.3 [facility] [address], [place] [address]- 1186 Feb, [facility] [id number] [place] [address] 77655- 4417 Feb, [facility] [address] [place] [address] 25915- 0629 30 Jan, 2016 Obstructive sleep apnea syndrome G47.33 [facility] [address] [place] [address] 75666- 4355 26 Jan, [address] [id number] [id number] 19 Jan, 2016 Dental examination Z01.20 [facility] [address] [place] [address] 49500- 7454 Jan, Bipolar 1 disorder F31.9 ; Posttraumatic stress disorder F43.10 and Social anxiety disorder F40.10 [facility] [address] [place] [address] 72703- 5664 Jan, Bipolar disorder F31.9 ; Posttraumatic stress disorder F43.10 and Borderline personality disorder F60.3 [facility] [address] [place] [address] 05418- 4116 Jan, Sciatica of left side M54.32 [place] [id number] [place] [address] 82914- 2870 Jan, [facility] [id number] [place] [address] 59935- 6838 Dec, [facility] [address] [place] [address] 59667- 1871 Dec, [place] [address], [place] [address]- 7939 Dec, Bipolar disorder F31.9 ; Posttraumatic stress disorder F43.10 and Borderline personality disorder F60.3 [facility] [place] [address] [place] [address] 83052- 5908 Nov, [place] [id number] [place] [address] 93396- 2675 Nov, Insomnia, unspecified type G47.00 [place] [id number] [place] [address] 11615- 3956 Nov, Bipolar disorder F31.9 ; Posttraumatic stress disorder F43.10 and Borderline personality disorder F60.3 [facility] [address] [place] [address] 53087- 1353 Nov, [place] [place] [id number] [place] [address] 31189- 8792 Nov, [facility] [place] [id number] [place] [address] 71780- 1872 Oct, Bipolar disorder F31.9 ; Posttraumatic stress disorder F43.10 and Borderline personality disorder F60.3 [facility] [place] [address] [place] [address] 19441- 2579 Oct, [place] [place] [address] [place] [address] 78878- 4373 Oct, Essential (primary) hypertension I10 [facility] [address] [place] [address] 06447- 1133 September, Bipolar 1 disorder F31.9 ; Posttraumatic stress disorder F43.10 and Social anxiety disorder F40.10 [facility] [address] [place] [address] 25715- 2256 September, Bipolar disorder F31.9 ; Posttraumatic stress disorder F43.10 and Borderline personality disorder F60.[address] [id number] [place] [id number] September, Encounter for dental examination and cleaning without abnormal findings Z01.20 [facility] [place] [address] [place] [address] 97014- 5866 September, [facility] [id number] [place] [address] 08531- 3337 September, [facility] [id number] [place] [address] 79709- 4775 Aug, [facility] [id number] [place] [address] 13451- 8152 Aug, Bipolar disorder F31.9 ; Posttraumatic stress disorder F43.10 and Borderline personality disorder F60.3 [facility] [id number] [place] [address] 98004- 5359 Aug, [facility] [place] [id number] [place] [address] 99250- 7352 Aug, [facility] [place] [id number] [place] [address] 09285- 8027 Aug, [facility] [id number] [place] [address] [id number] Jul, Acute nasopharyngitis [common cold] J00 and Other viral agents as the cause of diseases classified elsewhere B97.89 [address] [place] [address] 92067- 8111 Jul, Chronic pain G89.29 and Allergic rhinitis J30.9 [place] [id number] [place] [address] 90072- 7640 Jul, Bipolar 1 disorder F31.9 ; Posttraumatic stress disorder F43.10 and Social anxiety disorder F40.10 [facility] [id number] [place] [address] 38260- 6077 Jul, Bipolar 1 disorder F31.9 [facility] [id number] [place] [address] 46795- 9300 Jul, Bipolar disorder F31.9 ; Posttraumatic stress disorder F43.10 and Borderline personality disorder F60.3 [facility] [address] [place] [address] 29304- 9306 14 Jul, 2015 [facility] [id number] [place] [address] 75669- 3866 14 Jul, 2015 [facility] [id number] [place] [address] 67632- 3946 11 Jul, 2015 [facility] [id number] [place] [address] 21854 2546 10 Jul, 2015 Anxiety F41.9 [facility] [id number] [place] [address] 58099- 5156 10 Jul, 2015 Chronic pain G89.29 and Encounter for therapeutic drug level monitoring Z51.81 [facility] [id number] [place] [address] 44668- 3651 09 Jul, 2015 Chronic pain G89.29 and Encounter for therapeutic drug level monitoring Z51.81 [facility] [id number] [place] [address] 66784- 0657 08 Jul, 2015 [facility] [id number] [place] [address] 78592- 6593 19 Jun, 2015 [facility] [id number] [place] [address] 91888- 0824 19 Jun, 2015 [facility] [id number] [place] [address] 17090- 9086 15 Jun, 2015 [facility] [id number] [place] [address] 66278 2546 15 Jun, 2015 [facility] [id number] [place] [address] 53212- 5168 11 Jun, 2015 High risk medication use V58.69 [facility] [id number] [place] [address] 59942- 254 09 Jun, 2015 [facility] [id number] [place] [address] 19856- 1911 Jun, Bipolar 1 disorder F31.9 ; Overdose T50.901A and Chronic pain G89.29 [facility] [address] 00257- 4083 Jun, Bipolar disorder F31.9 ; Posttraumatic stress disorder F43.10 and Borderline personality disorder F60.3 [facility] [address] 73798- 7631 Jun, [facility] [address] 26227- 0852 Jun, [facility] [address] 59917- 4035 Jun, Keloid L91.0 [facility] [id number] [place] [address] 99737- 5271 Jun, [facility] [address] 45106- 8453 May, [facility] [id number] [place] [address] 38503- 3025 May, [facility] [id number] [place] [address] 62750- 9889 May, Pelvic pain R10.2 [facility] [id number] [place] [address] 49399- 2977 May, [facility] [id number] [place] [address] 21706- 7766 May, Pain of left thumb M79.645 ; Incisional pain R20.8 ; Pelvic pain R10.2 and Essential hypertension I10 [facility] [id number] [place] [address] 66826- 0115 May, [facility] [id number] [place] [address] 87923- 3392 May, [address] [id number] May, Dental examination Z01.20 and Necrosis of pulp K04.1 [facility] [address] [address] 6034 Apr, [facility] [place] [facility] [address] [id number] 2193 Apr, [facility] [place] [facility] [id number] [place] [address] 254150- 7312 Apr, [facility] [place] [facility] [address] [id number] 9899 Apr, [facility] [id number] [place] [address] 64673- 6638 Apr, [facility] [address] [id number] 9014 Apr, [facility] [address] [id number], [place] [address]- 6321 Apr, [facility] [address]65[address], [place] [address]- 8648 Apr, [facility] [address]65[address], [place] [address]- 9623 Mar, [facility] [address]65[address], [place] [address]- 0500 Mar, [facility] [address]65[address], [place] [address]- 5839 Mar, [facility] [place] [facility] [address]65[address] 1213 Mar, [facility] [place] [facility] [address]65[address] 6118 Feb, [facility] [place] [facility] [address] [id number] 5785 Feb, [facility] [place] [facility] [address]65[address], [place] [address]- 2401 Feb, [facility] [address]65[address], [place] [address]- 1804 Feb, [facility] [address], [place] [address]- 2463 Feb, [facility] [address]65[address], [place] [address]- 5508 Feb, [facility] [id number] [place] [address] 94916- 0795 Feb, [facility] [id number] [place] [address] 34282- 8174 Feb, Dermatofibroma of left lower leg D23.72 [facility] [address]65[address], [place] [address]- 6023 Feb, Hematochezia 578.1 ; Low back pain M54.5 ; High risk medication use V58.69 ; Cervicalgia M54.2 and Anxiety F41.[address] [id number] [id number] Feb, Dental examination Z01.20 ; Pulpitis K04.0 and Dental caries, unspecified K02.[address] [id number] [id number] Feb, Dental examination Z01.20 [facility] [address]65[address], [place] [address]- 0310 Jan, [facility] [address]65[address], [place] [address]- 3808 Jan, [facility] [address]65[address], [place] [address]- 9079 Jan, [facility] [address]65[address], [place] [address]- 1270 Jan, [facility] [address]65[address], [place] [address]- 6166 Dec, [facility] [address] [id number] [place] [address]- 5679 Dec, [facility] [address] [id number] [place] [address]- 4243 Dec, [facility] [address] [id number] [place] [address]- 8638 Dec, [facility] [address] [id number] [place] [address]- 1436 Dec, [facility] [address] [id number] [place] [address]- 3410 Dec, [facility] [address] [id number] [place] [address]- 9834 Dec, [facility] [address] [id number], [place] [address]- 4362 Dec, [facility] [address] [id number] [address] Nov, Encounter for removal of sutures V58.32 [facility] [address] [id number] [place] [address]- 2639 Nov, [facility] [address] [id number], [place] [address]- 1825 Nov, [facility] [address] [id number], [place] [address]- 4821 Nov, [facility] [place] [facility] [address] [id number], [place] [address]- 6735 Nov, [facility] [place] [facility] [address] [id number] [place] [address]- 1188 Nov, [facility] [place] [facility] [address] [id number] [place] [address]- 0327 Nov, [facility] [place] [facility] [address] [id number] 9656 Nov, [facility] [place] [facility] [id number] [address]- 5102 Nov, Dermatofibroma 216.9 [facility] [id number] [place] [address] 63638- 2628 Nov, [facility] [address] [id number] [address]- 0071 Nov, [facility] [id number] [place] [address] 70438- 4238 Oct, [facility] [id number] [place] [address] 12242- 8826 Oct, Hematochezia 578.1 ; Abscess 682.9 ; GERD (gastroesophageal reflux disease) 530.81 ; Visual disturbance of one eye 368.9 and High risk medication use V58.69 [facility] [address] [id number] [address]- 5080 Oct, [facility] [id number] [place] [address] 84243- 2972 Oct, [facility] [address]65[address], [place] [address]- 7612 Oct, [facility] [id number], [place] [address]- 7265 September, [facility] [address], [place] [address]- 3264 September, [facility] [address]65[address], [place] [address]- 2331 September, [facility] [address]00565[address], [place] [address]- 9451 September, [facility] [id number], [place] [address]- 0101 September, [facility] [address]65[address], [place] [address]- 8403 September, Colon cancer screening V76.51 [facility] [id number] [address]- 3176 September, [facility] [place] [facility] [address] [id number] [place] [address]- 8662 14 Aug, 2014 [facility] [place] [facility] [address] [id number] [place] [address]- 6878 Aug, [facility] [place] [facility] [address] [id number] [place] [address]- 6257 Jul, [facility] [place] [facility] [address] [id number] [place] [address]- 4263 Jul, [facility] [place] [facility] [address] [id number] [place] [address]- 2703 Jul, [facility] [place] [facility] [address] [id number] [place] [address]- 6538 Jul, [facility] [place] [facility] [address] [facility] [id number] [place] [address]- 0422 Jun, [facility] [place] [facility] [address] [id number] [place] [address]- 9556 Jun, [facility] [place] [facility] [address] [id number] [place] [address]- 8067 Jun, [facility] [place] [facility] [address] [facility] [id number] [place] [address]- 5592 Jun, [facility] [place] [facility] [address] [id number] [place] [address]- 3933 Jun, [facility] [place] [facility] [address] [id number] [place] [address]- 8510 Jun, [facility] [place] [facility] [address] [id number] [place] [address]- 3208 May, [facility] [place] [facility] [address] [id number] [place] [address]- 3436 May, [facility] [place] [facility] [address] [facility] [id number] [place] [address]- 0681 May, [facility] [place] [facility] [address] [id number] [place] [address]- 1764 May, [facility] [place] [facility] [address] [id number] [place] [address]- 8177 May, [facility] [place] [facility] [address] [id number] [place] [address]- 3768 May, [facility] [place] [facility] [address] [id number] [place] [address]- 8002 May, [facility] [place] [facility] [address] [id number] [place] [address]- 9319 May, [facility] [place] [facility] [address] [id number] [place] [address]- 8661 Apr, [facility] [place] [facility] [address] [id number] [place] [address]- 1909 Apr, [facility] [place] [facility] [address] [id number] [place] [address]- 3493 Apr, [facility] [place] [facility] [address] [id number] [place] [address]- 2791 Apr, [facility] [place] [facility] [address] [id number] [place] [address]- 5126 Apr, [facility] [place] [facility] [address] [id number] [place] [address]- 2840 Apr, [facility] [place] [facility] [address] [id number] [place] [address]- 4452 Apr, [facility] [place] [facility] [address] [id number] [place] 3690 Apr, [facility] [place] [facility] [address] [id number] [place] [address]- 6807 Mar, [facility] [place] [facility] [address] [id number] [place] 3229 Mar, [facility] [place] [facility] [address] [id number] [place] [address]- 6447 Mar, [facility] [place] [facility] [address] [id number] [place] [address]- 2095 Mar, [facility] [place] [facility] [address] [id number] [place] [address]- 6615 Mar, [facility] [place] [facility] [address] [id number] [place] [address]- 4913 Mar, [facility] [place] [facility] [address] [id number] [place] [address]- 7994 Mar, [facility] [place] [facility] [address] [id number] [place] [address]- 6455 Mar, [facility] [place] [facility] [address] [id number] [place] [address]- 8942 Mar, [facility] [place] [facility] [address] [id number] [place] [address]- 8199 Mar, [facility] [place] [facility] [address] [id number] [place] [address]- 6734 Feb, [facility] [place] [facility] [address] [id number] [place] [address]- 9424 Feb, [facility] [place] [facility] [address] [id number] [place] [address]- 4540 Jan, [facility] [place] [facility] [address] [id number] [place] [address]- 8040 Jan, [facility] [place] [facility] [address] [id number] [place] [address]- 2831 Jan, [facility] [place] [facility] [address] [id number] [place] [address]- 3276 Jan, [facility] [place] [facility] [address] [id number] [place] [address]- 4817 Dec, [facility] [place] [facility] [address] [id number] [place] [address]- 8845 Dec, [facility] [place] [facility] [address] [id number] [place] [address]- 4573 Dec, [facility] [place] [facility] [address] [id number] [place] [address]- 9277 Dec, [facility] [place] [facility] [address] [id number] [place] [address]- 2759 Dec, [facility] [place] [facility] [address] [id number] [place] [address]- 7182 Dec, [facility] [place] [facility] [address] [id number] [place] [address]- 0061 Nov, [facility] [place] [facility] [address] [id number] [place] [address]- 3833 Nov, [facility] [place] [facility] [address] [id number] [place] [address]- 9939 Oct, [facility] [place] [facility] [address] [id number] [place] [address]- 0165 Oct, [facility] [place] [facility] [address] [id number] [place] [address]- 5227 Oct, [facility] [place] [facility] [address] [id number] [place] [address]- 9283 Oct, [facility] [place] [facility] [address] [id number] [place] [address]- 7689 September, [facility] [place] [facility] [address] [id number] [place] [address]- 3934 September, [facility] [place] [facility] [address] [id number] [place] [address]- 6591 September, [facility] [place] [facility] [address] [id number] [place] [address]- 3251 September, [facility] [place] [facility] [address] [id number] [place] [address]- 3019 September, [facility] [place] [facility] [address] [id number] [place] [address]- 2038 September, [facility] [place] [facility] [address] [id number] [place] [address]- 2756 September, [facility] [place] [facility] [address] [id number] [place] [address]- 5028 September, [facility] [place] [facility] [address] [id number] [place] [address]- 6086 Aug, [facility] [place] [facility] [address] [id number] [place] [address]- 6553 Aug, [facility] [place] [facility] [address] [id number] [place] [address]- 2893 Aug, [facility] [place] [facility] [address] [id number] [place] [address]- 5187 Aug, [facility] [place] [facility] [address] [id number] [place] [address]- 7131 Aug, [facility] [place] [facility] [address] [id number] [place] [address]- 5395 Aug, [facility] [place] [facility] [address] [id number] [place] [address]- 0778 Jul, [facility] [place] [facility] [address] [id number] [place] [address]- 4356 Jul, [facility] [place] [facility] [address] [id number] [place] [address]- 4610 Jul, [facility] [place] [facility] [address] [id number] [place] [address]- 9739 Jul, [facility] [place] [facility] [address] [id number] [place] [address]- 2067 Jun, [facility] [place] [facility] [address] [id number] [place] [address]- 9398 Jun, [facility] [place] [facility] [address] [id number] [place] [address]- 3256 Jun, [facility] [place] [facility] [address] [id number] [place] [address]- 9208 Jun, [facility] [address] [id number] [place] [address]- 8799 Jun, [facility] [address] [id number] [place] [address]- 8196 Jun, [facility] [address] [id number] [place] [address]- 9143 May, [facility] [address] [id number] [place] [address]- 9457 May, [facility] [address] [id number] [place] [address]- 7875 May, [facility] [address] [id number] [place] [address]- 7409 May, [facility] [address] [id number] [place] [address]- 0541 May, [facility] [address] [id number] [place] [address]- 4557 May, [facility] [address] [id number] [place] [address]- 5330 May, [facility] [address] [id number] [place] [address]- 8424 May, [facility] [address] [id number] [place] [address]- 9877 Apr, [facility] [address] [place] [id number] Apr, [facility] [address] [id number] [place] [address]- 3150 Apr, [facility] [address] [id number] [place] [address]- 5420 Apr, [facility] [address] [id number] [place] [address]- 0508 Apr, [facility] [address] [id number] [place] [address]- 6898 Apr, [facility] [place] [facility] [address] [id number] [place] 9933 Apr, [facility] [place] [facility] [address] [id number] [place] 7823 Apr, [facility] [place] [facility] [address] [id number] [place] [address]- 8967 Apr, [facility] [address] [id number] [place] [address]- 9838 Mar, [facility] [place] [facility] [address] [id number] [place] [address]- 2020 Mar, [facility] [address] [id number] [place] [address]- 0553 Mar, [facility] [address] [id number] [place] [address]- 4895 Mar, [facility] [address] [id number] [place] [address]- 6977 Mar, [facility] [place] [facility] [address] [id number] [place] [address]- 5765 Feb, [facility] [place] [facility] [address] [id number] [place] [address]- 0814 Feb, [facility] [place] [facility] [address] [id number], [place] [address]- 6576 14 Feb, 2013 [facility] [place] [facility] [address] [id number] [place] [address]- 6656 Feb, [facility] [place] [facility] [address] [id number] [place] [address]- 2156 25 Jan, 2013 [facility] [place] [facility] [address] [id number] 1649 24 Jan, 2013 [facility] [place] [facility] [address] [id number], [place] [address]- 3296 Jan, [facility] [address] [id number], [place] [address]- 2629 Dec, [facility] [place] [facility] [address] [facility] [id number], [place] [address] Dec, [facility] [address] [facility] [id number], [place] [address] Dec, [facility] [address] [facility] [id number] [place] [id number] Nov, [facility] [address] [facility] [id number] [place] [id number] Oct, [facility] [address] [id number], [place] [address] Oct, [facility] [place] [facility] [address] [facility] [id number], [place] [address] September, [facility] [place] [facility] [address] [id number], [place] [address] September, [facility] [place] [facility] [address] [facility] [id number], [place] [address] September, [facility] [place] [facility] [address] [facility] [id number], [place] [address] September, [facility] [place] [facility] [address] [facility] [id number], [place] [address] September, [facility] [place] [facility] [address] [id number], [place] [address] Jul, [facility] [place] [facility] [address] [id number], [place] [address] Jul, [facility] [place] [facility] [address] [id number], [place] [address] Jul, [facility] [place] [facility] [address] [id number], [place] [address] Jul, [facility] [place] [facility] [address] [id number], [place] [address] Jun, [facility] [place] [facility] [address] [id number] [place] [address] Jun, [facility] [place] [facility] [address] [id number] [place] [address] Jun, [facility] [place] [facility] [address] [id number] [place] [address] Jun, [facility] [place] [facility] [address] [id number] [place] [address] May, [facility] [place] [facility] [address] [id number] [place] [address] Mar, [facility] [place] [facility] [address] [id number] [place] [address] Mar, [facility] [place] [facility] [address] [id number] [place] [address] Mar, [facility] [place] [facility] [address] [id number] [place] [address] Mar, [facility] [place] [facility] [address] [id number] [place] [address] Mar, [facility] [place] [facility] [address] [facility] [id number] [place] [address] Mar, [facility] [place] [facility] [address] [id number] [place] [address] Mar, [facility] [place] [facility] [address] [id number], [place] [address] Mar, [facility] [place] [facility] [address] [id number] [place] [address] Feb, [facility] [place] [facility] [address] [id number] [place] [address] Feb, [facility] [place] [facility] [address] [id number], [place] [address] Feb, [facility] [place] [facility] [address] [id number], [place] [address] Feb, [facility] [place] [facility] [address] [id number] [place] [address] Feb, [facility] [place] [facility] [address] [facility] [id number] [place] [address] Feb, [facility] [address] [facility] [id number] [place] [address] Feb, [facility] [address] [id number] [place] [id number] Jan, [facility] [address] [facility] [address] [id number] [place] [id number] Dec, [facility] [address] [facility] [id number] [place] [id number] Dec, [facility] [address] [facility] [id number], [place] [address] Nov, [facility] [place] [facility] [address] [facility] [id number] [place] [address] Nov, [facility] [place] [facility] [address] [facility] [id number] [place] [address] Oct, [facility] [place] [facility] [address] [facility] [id number], [place] [address] Jul, [facility] [place] [facility] [address] [facility] [id number] [place] [address] Jul, [facility] [place] [facility] [address] [facility] [id number], [place] [address] May, [facility] [place] [facility] [address] [facility] [id number] [place] [address] May, [facility] [place] [facility] [address] [facility] [id number] [place] [address] Nov, [facility] [place] [facility] [address] [facility] [id number] [place] [address] Mar, [facility] [place] [facility] [address] [id number] [address] Dec, [facility] [address] [id number], [place] [address] Nov, [facility] [id number], [place] [address] Aug, [facility] [id number], [place] [address] Apr, [facility] [id number], [place] [address] Apr, [facility] [id number], [place] [address] Mar, [facility] [id number], [place] [address] Feb, [facility] [address], [place] [address] September, [facility] [address] [id number], [place] [address] Jun, [facility] [address] [id number], [place] [address] Mar, IMMUNIZATIONS No Known Immunizations SOCIAL HISTORY Never Assessed REASON FOR VISIT Blood Transfusion PLAN OF CARE VITAL SIGNS MEDICATIONS Unknown [...] hernia Hospitalization History Went by ambulance to [place] as unresponsive 05/2015 Hospitalization History [place] sent her to [facility] for a psych hold 05/2015
--- OUTSIDE RECORDS SUMMARY | 2018-03-15 10:52 | XMS REPORT ---
Author Author HERBERT MCGOWAN Organization [facility] Address [facility] [place] [address] Care Team Providers Care Neurology Specialist Name Role Phone HERBERT MCGOWAN Unavailable PROBLEMS Type Condition ICD9-CM Code SCE29-VL Code Onset Dates Condition Status SNOMED Code Problem Psoriasis L40.9 Active 2687296 Problem Relationship problem with family member Z63.8 Active 310286782 Problem Essential hypertension I10 Active 29201433 Problem Anxiety F41.9 Active 25663740 Problem Visual disturbance H53.9 Active 05243351 Problem Rheumatoid arthritis involving multiple sites with positive rheumatoid factor M05.79 Active 438735857 Problem Bilateral low back pain with sciatica, sciatica laterality unspecified M54.40 Active 983967809 Problem Hypokalemia E87.6 Active 20397802 Problem Lumbago with sciatica, left side M54.42 Active 833993393 Problem Other chronic pain G89.29 Active 94090754 Problem 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 Active 364966446 Problem Blindness of right eye H54.40 Active 210300329 Problem Posttraumatic stress disorder F43.10 Active 66574733 Problem Overdose T50.901A Active 26006219 Problem Bipolar disorder F31.9 Active 60616861 Problem Borderline personality disorder F60.3 Active 60849132 Problem Obstructive sleep apnea G47.33 Active 99667568 Problem Acquired hypothyroidism E03.9 Active 370050366 Problem Pelvic pain R10.2 Active 58240553 Problem Chronic pain G89.29 Active 10567655 Problem Gastro-esophageal reflux disease without esophagitis K21.9 Active 125095237 Problem Anemia due to other cause, not classified D64.89 Active 874291870 Problem Social anxiety disorder F40.10 Active 12018426 Problem Morbid obesity, unspecified obesity type E66.01 Active 538652758 ALLERGIES No Information ENCOUNTERS Encounter Location Date Diagnosis [facility] [id number] [address] Feb, [facility] [id number] [address] 8[address] Feb, [facility] [id number] [address] 47[address] Dec, [facility] [id number] [address] Dec, [place] [id number] [address] Dec, [address] [id number] [id number] Dec, Dental examination Z01.20 [place] [address] [address] Nov, Bipolar disorder F31.9 ; Posttraumatic stress disorder F43.10 and Borderline personality disorder F60.3 [place] [address] [address] Nov, Rheumatoid arthritis involving multiple sites with positive rheumatoid factor M05.79 ; Dysuria R30.0 and Blindness of right eye H54.40 [place] [address] [address] Nov, Bipolar disorder F31.9 ; Posttraumatic stress disorder F43.10 ; Social anxiety disorder F40.10 and Relationship problem with family member Z63.8 [place] [id number] [address] Nov, [place] [id number] [place] [address] 32985- 3205 Nov, [place] [id number] [place] [address] 54045- 5284 Nov, 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 ; Adverse effect of antineoplastic and immunosuppressive drugs, initial encounter T45.1X5A ; Anemia , unspecified D64.9 and BMI 40.0-44.9, adult Z68.41 [place] [address] [place] [address] 69676- 6176 Nov, Anemia due to other cause, not classified D64.89 [place] [address] [place] [address] [id number] [place] [address] 36275- 3820 Oct, Adverse effect of drug, initial encounter T50.905A and Acute anemia D64.9 [place] [address] [id number] [place] [address] 49023- 2299 Oct, Anemia due to other cause, not classified D64.89 ; Dysuria R30.0 and Urinary tract infection without hematuria, site unspecified N39.0 [place] [address] [id number] [place] [address] 25446- 9669 Oct, [place] [id number] [place] [address] 78613- 0735 Oct, [place] [id number] [place] [address] 96819- 3804 Oct, 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 [facility] [id number] [place] [id number] Oct, [facility] [id number] [place] [address] 26283- 7236 Oct, [place] [id number] [place] [address] 16692- 7162 Oct, [place] [address] [id number] [place] [address] 26801- 7441 Oct, Bipolar disorder F31.9 ; Posttraumatic stress disorder F43.10 and Borderline personality disorder F60.3 [place] [address] [id number] [place] [address] 42854- 7561 Oct, Rheumatoid arthritis involving multiple sites with positive rheumatoid factor M05.79 ; 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 and Anxiety F41.9 [place] [id number] [place] [address] 36620- 3091 Oct, [facility] [id number] [place] [address] 79895- 7746 September, 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 [facility] [id number] [place] [address] 57036- 1206 September, Bipolar disorder F31.9 ; Posttraumatic stress disorder F43.10 and Borderline personality disorder F60.3 [place] [address] [id number] [place] [address] 37806- 0659 Aug, BMI 40.0-44.9, adult Z68.41 ; Bipolar disorder F31.9 ; Posttraumatic stress disorder F43.10 and Social anxiety disorder F40.10 [place] [address] [id number] [place] [address] 31731- 8502 Aug, Bipolar disorder F31.9 ; Posttraumatic stress disorder F43.10 and Borderline personality disorder F60.3 [place] [address] [id number] [place] [address] 33298- 6370 Aug, 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 [place] [address] [id number] [place] [address] 77308- 2663 Jul, Bipolar disorder F31.9 ; Posttraumatic stress disorder F43.10 and Borderline personality disorder F60.3 [place] [address] [id number] [place] [address] 20404- 7382 Jul, [place] [address] [id number] [place] [address] 82908- 7243 Jun, Bipolar disorder F31.9 ; Posttraumatic stress disorder F43.10 and Borderline personality disorder F60.3 [place] [address] [id number] [place] [address] 69816- 7907 Jun, Blindness of right eye H54.40 and Acquired hypothyroidism E03.9 [place] [address] [address] [id number] [place] [address] 60421- 9717 Jun, [place] [address] [address] 4889 May, Posttraumatic stress disorder F43.10 ; Social anxiety disorder F40.10 and Bipolar disorder F31.9 [place] [id number] [place] [address] 68190- 7102 May, Bipolar disorder F31.9 ; Posttraumatic stress disorder F43.10 and Borderline personality disorder F60.3 [place] [address] [id number] [place] [address] 75657- 5346 May, [place] [id number] [place] [address] 13482- 7783 May, [place] [address] [id number] [place] [address] 44654- 7852 Apr, Bipolar disorder F31.9 ; Posttraumatic stress disorder F43.10 and Borderline personality disorder F60.3 [place] [id number] [place] [id number] Apr, [place] [id number] [place] [address] 60350- 1293 Apr, [place] [address] [place] [address] [id number] [place] [address] 50874- 9105 Mar, Hydradenitis L73.2 [place] [address] [place] [address] 84737- 0714 Mar, Lumbago with sciatica, left side M54.42 ; Other chronic pain G89.29 ; Morbid obesity, unspecified obesity type E66.01 ; Hydradenitis L73.2 and BMI 40.0-44.9, adult Z68.41 [place] [address] [address] [id number] [place] [address] 69680- 9096 Mar, Bipolar disorder F31.9 ; Posttraumatic stress disorder F43.10 and Borderline personality disorder F60.3 [facility] [address] [place] [address] 82279- 4488 Mar, Social anxiety disorder F40.10 ; Bipolar disorder F31.9 and Relationship problem with family member Z63.8 [facility] [address] [facility] [id number] [address] Mar, [facility] [address] [id number] [id number] Mar, Dental examination Z01.20 [facility] [address] [facility] [id number] [place] [address]- 5371 Mar, [facility] [address] [facility] [id number] [place] [address]- 4060 Feb, Bipolar disorder F31.9 ; Posttraumatic stress disorder F43.10 and Borderline personality disorder F60.3 [facility] 120 [facility] [id number] [id number] Feb, [facility] [id number] [address] 3003 14 Jan, 2017 Bipolar disorder F31.9 ; Posttraumatic stress disorder F43.10 and Borderline personality disorder F60.3 [facility] [address] [id number] [id number] Jan, [facility] [id number] [address]- 5878 Jan, [facility] [address] [facility] [id number][place] [id number] Jan, [facility] [id number] [address]- 2985 Dec, Bipolar disorder F31.9 ; Posttraumatic stress disorder F43.10 and Borderline personality disorder F60.3 [facility] [address] [facility] [id number] [place] [address]- 2016 Dec, [facility] [address] [facility] [id number] [place] [address]- 8087 Dec, [facility] [address] [id number][place] [id number] Dec, [facility] [address] [id number] [place] [address] 52123- 4062 Nov, Bipolar 1 disorder F31.9 ; Posttraumatic stress disorder F43.10 and Social anxiety disorder F40.10 [place] [address] [place] [address] [id number] [place] [address] 29201- 6053 Nov, Bipolar disorder F31.9 ; Posttraumatic stress disorder F43.10 and Borderline personality disorder F60.3 [place] [address] [address] [id number] [place] [address] 46960- 8267 Nov, Morbid obesity, unspecified obesity type E66.01 [place] [address] [place] [address] [id number] [place] [address] 24904- 1071 Nov, [address] [id number] Oct, Encounter for dental examination and cleaning without abnormal findings Z01.20 [place] [id number] [place] [address] 53443- 8534 Oct, Morbid obesity, unspecified obesity type E66.01 and Acute seasonal allergic rhinitis due to pollen J30.[address] 92061- 8872 Oct, Bipolar disorder F31.9 ; Posttraumatic stress disorder F43.10 and Borderline personality disorder F60.3 [place] [address] [address] [id number] [place] [address] 24553- 9755 September, Morbid obesity, unspecified obesity type E66.01 and Psoriasis L40.9 [place] [address] [address] [id number] [place] [address] 05207- 0167 September, Bipolar disorder F31.9 ; Posttraumatic stress disorder F43.10 and Borderline personality disorder F60.3 [place] [address] [address] [id number] [place] [address] 26345- 4277 September, Chronic pain G89.29 [place] [address] [place] [id number] [place] [address] 32882- 1993 Aug, Other acute nonsuppurative otitis media of right ear H65.191 and Morbid obesity, unspecified obesity type E66.01 [place] [address] [place] [address] [id number] [place] [address] 96647- 9887 Aug, Bipolar 1 disorder F31.9 ; Posttraumatic stress disorder F43.10 and Social anxiety disorder F40.10 [place] [address] [place] [address] [id number] [place] [address] 62240- 0992 Aug, Bipolar disorder F31.9 ; Posttraumatic stress disorder F43.10 and Borderline personality disorder F60.3 [place] [address] [place] [address] [id number] [place] [address] 05455- 9820 Jul, Morbid obesity due to excess calories E66.01 ; Gastro- esophageal reflux disease without esophagitis K21.9 and Chronic pain G89.29 [place] [address] [place] [id number] [place] [address] 67394- 8380 Jul, Morbid obesity due to excess calories E66.01 [place] [address] [id number] [place] [address] 40251- 9087 Jul, [place] [address] [id number] [place] [address] 01275- 6528 Jul, [place] [address] [place] [id number] [place] [address] 07522- 3230 Jul, Morbid obesity due to excess calories E66.01 [place] [address] [place] [address] 50055- 0334 Jul, Bipolar disorder F31.9 ; Posttraumatic stress disorder F43.10 and Borderline personality disorder F60.3 [place] [address] [place] [id number] [place] [address] 40741- 1440 Jun, [place] [address] [id number] [place] [address] 20032- 2313 15 Jun, 2016 Morbid obesity due to excess calories E66.01 [place] [address] [place] [id number] [place] [address] 72966- 1714 Jun, [facility] [id number] [place] [address] 96539- 2472 09 Jun, 2016 Morbid obesity, unspecified obesity type E66.01 [facility] [address] [place] [address] 49095- 3290 03 Jun, 2016 Bipolar disorder F31.9 ; Posttraumatic stress disorder F43.10 and Borderline personality disorder F60.3 [place] [address] [id number] [place] [address] 17053- 1749 Jun, [place] [address] [id number] [place] [address] 04661- 6463 Jun, [place] [address] [address] [id number] [place] [address] 83845- 9779 02 Jun, 2016 Acquired hypothyroidism E03.9 and Morbid obesity due to excess calories E66.01 [place] [address] [address] [id number] [place] [address] 46869- 2729 May, Bipolar disorder F31.9 ; Posttraumatic stress disorder F43.10 and Borderline personality disorder F60.3 [place] [id number] [place] [address] 77156- 1633 Apr, Bipolar 1 disorder F31.9 ; Posttraumatic stress disorder F43.10 and Social anxiety disorder F40.[address] [id number] [id number] Apr, Encounter for dental examination Z01.20 [facility] [address] [place] [address] 91942- 9275 Apr, [place] [address] [address] [id number] [place] [address] 30846- 1655 Apr, Acquired hypothyroidism E03.9 [place] [address] [id number] [place] [address] 21336- 3902 07 Apr, 2016 Acquired hypothyroidism E03.9 [place] [address] [address] [id number] [place] [address] 50519- 5247 Apr, Bipolar disorder F31.9 ; Posttraumatic stress disorder F43.10 and Borderline personality disorder F60.3 [facility] [id number] [place] [address] 90129- 6168 Apr, Acquired hypothyroidism E03.9 [facility] [address] [id number] [id number] Mar, Encounter for dental examination and cleaning without abnormal findings Z01.20 [facility] [address] [id number] [place] [address] 04716- 1324 08 Mar, 2016 [facility] [address] 66518- 3435 Mar, Bipolar disorder F31.9 ; Posttraumatic stress disorder F43.10 and Borderline personality disorder F60.3 [place] [address] 43310- 6572 Mar, Essential (primary) hypertension I10 [facility] [address] [id number] [place] [address] 44280- 0261 Feb, [facility] [address] 02834- 5671 Feb, [facility] [address] [id number] [place] [address] 55835- 2117 Feb, Pelvic pain R10.2 ; Lipid screening Z13.220 ; Fatigue, unspecified type R53.83 and Weight gain R63.5 [facility] [address] [id number] [place] [address] 64819- 3555 Feb, Bipolar disorder F31.9 ; Posttraumatic stress disorder F43.10 and Borderline personality disorder F60.3 [facility] [address] [id number] [place] [address] 34010- 3248 Feb, [facility] [id number] [place] [address] 73987- 9071 Feb, [facility] [address] 67295- 7299 30 Jan, 2016 Obstructive sleep apnea syndrome G47.33 [facility] [address] [address]- 4157 Jan, [facility] [address] [facility] [address] [id number] [id number] 19 Jan, 2016 Dental examination Z01.20 [facility] [address] [place] [address] 61223- 8301 Jan, Bipolar 1 disorder F31.9 ; Posttraumatic stress disorder F43.10 and Social anxiety disorder F40.10 [facility] [address] [place] [address] 60440- 3869 Jan, Bipolar disorder F31.9 ; Posttraumatic stress disorder F43.10 and Borderline personality disorder F60.3 [facility] [address] [place] [address] 59804- 0974 Jan, Sciatica of left side M54.32 [facility] [address] [place] [address] 57984- 5312 Jan, [facility] [id number] [place] [address] 94229- 9916 Dec, [facility] [id number] [place] [address] 11964- 7402 Dec, [facility] [address] [place] [address] 43369- 3761 Dec, Bipolar disorder F31.9 ; Posttraumatic stress disorder F43.10 and Borderline personality disorder F60.3 [facility] [address] [address]- 8642 Nov, [facility] [id number] [place] [address] 21571- 8625 Nov, Insomnia, unspecified type G47.00 [facility] [address] [place] [address] 24534- 3132 Nov, Bipolar disorder F31.9 ; Posttraumatic stress disorder F43.10 and Borderline personality disorder F60.3 [facility] [address] [address]- 3747 Nov, [facility] [address] [place] [address] 53260- 8254 Nov, [facility] [address] [place] [address] 97363- 8538 Oct, Bipolar disorder F31.9 ; Posttraumatic stress disorder F43.10 and Borderline personality disorder F60.3 [facility] [address] [place] [address] 48251- 7552 Oct, [facility] [id number] [place] [address] 45962- 9861 Oct, Essential (primary) hypertension I10 [facility] [address] [place] [address] 35273- 7720 September, Bipolar 1 disorder F31.9 ; Posttraumatic stress disorder F43.10 and Social anxiety disorder F40.10 [facility] [address] [place] [address] 46416- 1639 September, Bipolar disorder F31.9 ; Posttraumatic stress disorder F43.10 and Borderline personality disorder F60.[address] [id number] [id number] September, Encounter for dental examination and cleaning without abnormal findings Z01.20 [facility] [address] [address]- 5316 September, [facility] [address] [address]- 1584 September, [facility] [address] [place] [address] 61210- 0373 Aug, [facility] [address] [address]- 2590 Aug, Bipolar disorder F31.9 ; Posttraumatic stress disorder F43.10 and Borderline personality disorder F60.3 [facility] [address] [address]- 9065 Aug, [facility] [id number] [place] [address] 96027- 4728 Aug, [facility] [address] [place] [address] 80670- 3982 Aug, [facility] [id number][place] [id number] Jul, Acute nasopharyngitis [common cold] J00 and Other viral agents as the cause of diseases classified elsewhere B97.89 [facility] [id number] [place] [address] 24670- 2816 24 Jul, 2015 Chronic pain G89.29 and Allergic rhinitis J30.9 [facility] [id number] [place] [address] 29810- 9428 24 Jul, 2015 Bipolar 1 disorder F31.9 ; Posttraumatic stress disorder F43.10 and Social anxiety disorder F40.10 [facility] [address] [place] [address] 37013- 2971 16 Jul, 2015 Bipolar 1 disorder F31.9 [facility] [id number] [place] [address] 05111- 3767 16 Jul, 2015 Bipolar disorder F31.9 ; Posttraumatic stress disorder F43.10 and Borderline personality disorder F60.3 [facility] [address] [place] [address] 58874- 7676 14 Jul, 2015 [facility] [address] [place] [address] 01679- 6164 14 Jul, 2015 [facility] [id number] [place] [address] 70717- 3755 11 Jul, 2015 [facility] [address] [place] [address] 85411- 7326 10 Jul, 2015 Anxiety F41.9 [facility] [id number] [place] [address] 64075- 9637 10 Jul, 2015 Chronic pain G89.29 and Encounter for therapeutic drug level monitoring Z51.81 [facility] [id number] [place] [address] [phone]- [phone] 09 Jul, 2015 Chronic pain G89.29 and Encounter for therapeutic drug level monitoring Z51.81 [facility] [id number] [place] [address] [phone]- [phone] 08 Jul, 2015 [facility] [id number] [place] [address] [phone] Jun, [facility] [id number] [place] [address] [phone] Jun, [facility] [id number] [place] [address] [phone] Jun, [facility] [id number] [place] [address] [id number] Jun, [facility] [id number] [place] [address] [id number]- [phone] Jun, High risk medication use V58.69 [facility] [id number] [place] [address] [id number]- [phone] Jun, [facility] [id number] [place] [address] [phone]- [phone] Jun, Bipolar 1 disorder F31.9 ; Overdose T50.901A and Chronic pain G89.29 [facility] [id number] [place] [address] 07450- 0269 Jun, Bipolar disorder F31.9 ; Posttraumatic stress disorder F43.10 and Borderline personality disorder F60.3 [facility] [id number] [place] [address] 86687- 0092 08 Jun, 2015 [facility] [id number] [place] [address] 67894- 1293 Jun, [facility] [id number] [address] 6270 Jun, Keloid L91.0 [facility] [id number] [place] [address] 68788- 7741 Jun, [facility] [id number] [place] [address] 74414- 7040 May, [facility] [id number] [place] [address] 92473- 1491 May, [facility] [id number] [place] [address] 92763- 5811 May, Pelvic pain R10.2 [facility] [id number] [place] [address] 70892- 1287 May, [facility] [id number] [place] [address] 30722- 7044 May, Pain of left thumb M79.645 ; Incisional pain R20.8 ; Pelvic pain R10.2 and Essential hypertension I10 [facility] [id number] [address] 2710 May, [facility] [id number] [address] 7424 May, [address] AVFormerly [id number] [id number] May, Dental examination Z01.20 and Necrosis of pulp K04.1 [facility] [id number] [address] 7079 Apr, [facility] [id number] [place] [address] 36968- 0925 Apr, [facility] [id number] [address] 9191 Apr, [facility] [id number] [place] [address] 20306- 1084 Apr, [facility] [place] [facility] [address] [id number] [place] [address]- 8589 Apr, 2014 [facility] [place] [facility] [address] [id number] [place] [address]- 9810 Apr, [facility] [place] [facility] [address] [id number] [place] [address]- 2280 Apr, [facility] [place] [facility] [id number] [place] [address], [place] [address]- 1316 Apr, [facility] [place] [facility] [address] [id number] [place] [address]- 4826 Mar, [facility] [place] [facility] [address] [id number] [place] [address]- 1886 Mar, [facility] [place] [facility] [address] [id number] [place] [address]- 2233 Mar, [facility] [place] [facility] [address] [id number] [place] [address]- 4339 Mar, [facility] [place] [facility] [address] [id number] [place] [address]- 2234 Feb, [facility] [place] [facility] [address] [id number] [place] [address]- 2915 Feb, [facility] [place] [facility] [address] [id number] [place] [address]- 7283 Feb, [facility] [place] [facility] [address] [id number] [address]- 6298 Feb, 2014 [facility] [place] [facility] [address] [id number] [place] [address]- 8159 Feb, [facility] [place] [facility] [address] [id number] [place] [address]- 0156 Feb, [facility] [place] [facility] [address] [id number] [place] [address]- 1116 16 Feb, 2015 [facility] [place] [facility] [address] [id number] [place] [address] 96558- 4102 Feb, Dermatofibroma of left lower leg D23.72 [facility] [id number] [place] [address] 01135- 3155 Feb, Hematochezia 578.1 ; Low back pain M54.5 ; High risk medication use V58.69 ; Cervicalgia M54.2 and [address] F41.[address] [id number] [id number] Feb, Dental examination Z01.20 ; Pulpitis K04.0 and Dental caries, unspecified K02.[address] [id number] [id number] Feb, Dental examination Z01.20 [facility] [id number] [place] [address] 36933- 7037 Jan, [facility] [id number] [place] [address] 89196- 3066 Jan, [facility] [id number] [place] [address] 84802- 4258 Jan, [facility] [id number] [place] [address] 32566- 5501 Jan, [facility] [id number] [place] [address] 28681- 8889 Dec, [facility] [id number] [place] [address] 51948- 3320 Dec, [facility] [id number] [place] [address] 92264- 9177 Dec, [facility] [id number] [place] [address] 70432- 1461 Dec, [facility] [address] [id number] [address]- 5265 Dec, [facility] [id number] [place] [address] 72157- 3858 Dec, [facility] [address] [facility] [id number] [address]- 0402 Dec, [facility] [address] [id number] [address]- 1585 Dec, [facility] [address] [id number] [address] Nov, Encounter for removal of sutures V58.32 [facility] [address] [id number] [address]- 1022 Nov, [facility] [address] [id number] [address]- 3616 Nov, [facility] [id number] [address]- 4204 Nov, [facility] [id number] [address]- 1871 Nov, [facility] [id number] [address]- 6537 Nov, [facility] [address] [id number] [address]- 2562 Nov, [facility] [id number] [address]- 2987 Nov, [facility] [id number] [address]- 3775 Nov, Dermatofibroma 216.9 [facility] [address] [id number] [address]- 4937 Nov, [facility] [address] [id number] [address]- 3027 Nov, [facility] [address] [id number] [address]- 0132 Oct, [facility] [address] [id number] [address]- 7052 Oct, Hematochezia 578.1 ; Abscess 682.9 ; GERD (gastroesophageal reflux disease) 530.81 ; Visual disturbance of one eye 368.9 and High risk medication use V58.69 [facility] [id number] [address]- 4664 Oct, [facility] [id number] 8906 Oct, [facility] [id number] [place] [address] 41430229- 4894 Oct, [facility] [id number] 1592 September, [facility] [id number] [place] [address] 258062- 5073 September, [facility] [id number] [address]- 0166 September, [facility] [address] [id number] 8170 September, [facility] [id number] [address]- 1723 September, [facility] [id number] 8270 September, Colon cancer screening V76.51 [facility] [id number] [address]- 8426 September, [facility] [id number] [address] 9027 Aug, [facility] [id number] [address]- 9878 Aug, [facility] [id number] [address]- 7882 Jul, [facility] [id number] [address]- 7066 Jul, [facility] [id number] [address]- 5924 Jul, [facility] [place] [facility] [address] [id number] [place] [address]- 0293 Jul, [facility] [place] [facility] [address] [id number] [place] [address]- 1706 Jun, [facility] [place] [facility] [address] [id number] [place] [address]- 6436 Jun, [facility] [place] [facility] [address] [id number] [place] [address]- 4560 Jun, [facility] [place] [facility] [address] [id number] [place] [address]- 4117 Jun, [facility] [place] [facility] [address] [id number] [place] [address]- 3189 Jun, [facility] [place] [facility] [address] [id number] [place] [address]- 7317 Jun, [facility] [place] [facility] [address] [id number] [place] [address]- 0291 May, [facility] [place] [facility] [address] [id number] [place] [address]- 0862 May, [facility] [place] [facility] [address] [id number] [place] [address]- 0922 May, [facility] [place] [facility] [address] [id number] [place] [address]- 6955 May, [facility] [place] [facility] [address] [id number] [place] [address]- 2451 May, [facility] [place] [facility] [address] [id number] [place] [address]- 9362 May, [facility] [place] [facility] [address] [facility] [id number] [place] [address]- 2110 May, [facility] [place] [facility] [address] [id number] [place] [address]- 8604 May, [facility] [place] [facility] [address] [id number] [place] [address]- 0679 Apr, [facility] [place] [facility] [address] [id number] [place] [address]- 9309 Apr, [facility] [place] [facility] [address] [id number] [place] [address]- 9968 Apr, [facility] [place] [facility] [address] [id number] [place] [address]- 2349 Apr, [facility] [place] [facility] [address] [id number] [place] [address]- 4291 Apr, [facility] [place] [facility] [address] [id number] [place] [address]- 6718 Apr, [facility] [place] [facility] [address] [id number] [place] [address]- 5047 Apr, [facility] [place] [facility] [address] [id number] [place] [address]- 1400 Apr, [facility] [place] [facility] [address] [id number] [place] [address]- 4316 Mar, [facility] [place] [facility] [address] [id number] [place] [address]- 5458 Mar, [facility] [place] [facility] [address] [id number] [address]- 1798 Mar, [facility] [place] [facility] [address] [id number] [place] [address]- 1919 Mar, [facility] [place] [facility] [address] [id number] [place] [address]- 7905 Mar, [facility] [place] [facility] [address] [id number] [place] [address]- 8919 Mar, [facility] [place] [facility] [address] [id number] [place] [address]- 0543 Mar, [facility] [place] [facility] [address] [id number] [place] [address]- 8785 Mar, [facility] [place] [facility] [address] [id number] [place] [address]- 4401 Mar, [facility] [place] [facility] [address] [id number] [place] [address]- 7233 Mar, [facility] [place] [facility] [address] [id number] [place] [address]- 2378 Feb, [facility] [place] [facility] [address] [id number] [place] [address]- 4483 Feb, [facility] [place] [facility] [address] [id number] [place] [address]- 2246 Jan, [facility] [place] [facility] [address] [id number] [place] [address]- 3899 Jan, [facility] [place] [facility] [address] [id number] [place] [address]- 0634 Jan, [facility] [place] [facility] [address] [id number] [place] [address]- 7156 Jan, [facility] [place] [facility] [address] [id number] [place] [address]- 7520 Dec, [facility] [place] [facility] [address] [id number] [place] [address]- 5800 Dec, [facility] [place] [facility] [address] [id number] [place] [address]- 7871 Dec, [facility] [place] [facility] [address] [id number] [place] [address]- 8343 Dec, [facility] [place] [facility] [address] [id number] [place] [address]- 1654 Dec, [facility] [place] [facility] [address] [id number] [place] [address]- 0046 Dec, [facility] [place] [facility] [address] [id number] [place] [address]- 7779 Nov, [facility] [place] [facility] [address] [id number] [place] [address]- 6320 Nov, [facility] [place] [facility] [address] [id number] [place] [address]- 2866 Oct, [facility] [place] [facility] [address] [id number] [place] [address]- 7892 Oct, [facility] [place] [facility] [address] [id number] [place] [address]- 3044 Oct, [facility] [place] [facility] [address] [id number] [place] [address]- 3826 Oct, [facility] [place] [facility] [address] [id number] [place] [address]- 2212 September, [facility] [place] [facility] [address] [id number] [place] [address]- 2238 September, [facility] [place] [facility] [address] [id number] [place] [address]- 3131 September, [facility] [place] [facility] [address] [id number] [place] [address]- 9068 September, [facility] [place] [facility] [address] [id number] [place] [address]- 4699 September, [facility] [place] [facility] [address] [id number] [place] [address]- 3727 September, [facility] [place] [facility] [address] [id number] [place] [address]- 0556 September, [facility] [place] [facility] [address] [id number] [place] [address]- 0672 September, [facility] [place] [facility] [address] [id number] [place] [address]- 7315 Aug, [facility] [place] [facility] [address] [id number] [place] [address]- 2223 Aug, [facility] [place] [facility] [address] [id number] [address]- 0605 Aug, [facility] [place] [facility] [address] [id number] [place] [address]- 8654 Aug, [facility] [place] [facility] [address] [id number] [place] [address]- 8318 Aug, [facility] [place] [facility] [address] [facility] [id number] [place] [address]- 4117 Aug, [facility] [place] [facility] [address] [id number] [place] [address]- 7460 Jul, [facility] [place] [facility] [address] [id number] [place] [address]- 4552 Jul, [facility] [place] [facility] [address] [facility] [id number] [place] [address]- 5574 Jul, [facility] [place] [facility] [address] [facility] [id number] [place] [address]- 4117 Jul, [facility] [place] [facility] [address] [facility] [id number] [place] [address]- 1896 Jun, [facility] [place] [facility] [address] [facility] [id number] [place] [address]- 7957 Jun, [facility] [place] [facility] [address] [facility] [id number] [place] [address]- 0238 Jun, [facility] [place] [facility] [address] [facility] [id number] [place] [address]- 7001 Jun, [facility] [place] [facility] [address] [facility] [id number] [place] [address]- 6352 Jun, [facility] [place] [facility] [address] [id number] [place] [address]- 7082 Jun, [facility] [place] [facility] [address] [facility] [id number] [place] [address]- 0672 May, [facility] [place] [facility] [address] [facility] [id number] [place] [address]- 7804 May, [facility] [place] [facility] [address] [id number] [place] [address]- 3479 May, [facility] [address] [id number] [place] [address]- 3665 May, [facility] [address] [id number] [place] [address]- 1773 May, [facility] [address] [id number] [place] [address]- 8377 May, [facility] [address] [id number] [place] [address]- 7969 May, [facility] [address] [id number] [place] [address]- 7306 May, [facility] [address] [id number] [place] [address]- 4884 Apr, [facility] [address] [place] [id number] Apr, [facility] [address] [id number] [place] [address]- 5276 Apr, [facility] [address] [id number] [place] [address]- 7836 Apr, [facility] [address] [id number] [place] [address]- 8814 Apr, [facility] [address] [id number] [place] [address]- 6756 Apr, [facility] [address] [id number] [place] [address]- 2546 Apr, [facility] [address] [id number] [place] [address]- 3376 05 Apr, 2013 [facility] [address] [id number] [place] [address]- 2546 04 Apr, 2013 [facility] [address] [id number] [place] [address]- 8322 Mar, [facility] [place] [facility] [address] [id number] [place] [address]- 4769 Mar, [facility] [place] [facility] [address] [id number] [place] [address]- 0285 Mar, [facility] [place] [facility] [address] [id number] [place] [address]- 5393 Mar, [facility] [place] [facility] [address] [id number] [place] [address]- 2160 Mar, [facility] [place] [facility] [address] [id number] [place] [address]- 2616 Feb, [facility] [place] [facility] [address] [id number] [place] [address]- 1897 Feb, [facility] [place] [facility] [address] [id number] [place] [address]- 3060 Feb, [facility] [place] [facility] [address] [id number] [place] [address]- 0708 Feb, [facility] [place] [facility] [address] [id number] [place] [address]- 1175 Jan, [facility] [place] [facility] [address] [id number] [place] [address]- 9636 24 Jan, 2013 [facility] [place] [facility] [address] [id number] [place] [address]- 0901 Jan, [facility] [place] [facility] [address] [id number] [place] [address]- 4099 Dec, [facility] [place] [facility] [address] [id number] [place] [address]- 1060 Dec, [facility] [place] [facility] [address] [id number] [place] [address]- 9052 Dec, [facility] [address] [id number] [id number] Nov, [facility] [address] [id number][place] [id number] Oct, [facility] [address] [id number] [place] [address]- 6006 Oct, [facility] [place] [facility] [address] [id number] [place] [address]- 2766 September, [facility] [address] [id number] [place] [address]- 0454 September, [facility] [place] [facility] [address] [id number] [place] [address]- 3606 September, [facility] [address] [id number] [place] [address]- 3161 September, [facility] [address] [id number] [place] [address]- 8486 September, [facility] [address] [id number] [place] [address] Jul, [facility] [place] [facility] [address] [id number] [place] [address] Jul, [facility] [place] [facility] [address] [id number] [place] [address] Jul, [facility] [place] [facility] [address] [id number] [place] [address] Jul, [facility] [place] [facility] [address] [id number] [place] [address] Jun, [facility] [place] [facility] [address] [id number] [address] Jun, [facility] [place] [facility] [address] [id number] [place] [address] Jun, [facility] [place] [facility] [address] [id number] [address] Jun, [facility] [place] [facility] [address] [id number] [place] [address] May, [facility] [place] [facility] [address] [id number] [place] [address] Mar, [facility] [place] [facility] [address] [id number] [place] [address] Mar, [facility] [place] [facility] [address] [id number] [place] [address] Mar, [facility] [place] [facility] [address] [id number] [place] [address] Mar, [facility] [place] [facility] [address] [id number] [place] [address] Mar, [facility] [place] [facility] [address] [id number] [place] [address] Mar, [facility] [place] [facility] [address] [facility] [id number] [place] [address] Mar, [facility] [place] [facility] [address] [facility] [id number] [place] [address] Mar, [facility] [place] [facility] [address] [facility] [id number] [place] [address] Feb, [facility] [place] [facility] [address] [facility] [id number] [place] [address] Feb, [facility] [place] [facility] [address] [facility] [id number] [place] [address] Feb, [facility] [place] [facility] [address] [facility] [id number] [place] [address] Feb, [facility] [place] [facility] [address] [facility] [id number] [place] [address] Feb, [facility] [place] [facility] [address] [facility] [id number] [place] [address] Feb, [facility] [place] [facility] [address] [facility] [id number] [place] [id number] [address] Feb, [facility] [address] [facility] [id number] [id number] Jan, [facility] [address] [id number] [place] [id number] Dec, [facility] [address] [id number] [place] [id number] Dec, [facility] [place] [facility] [address] [id number] [place] [address] Nov, [facility] [address] [id number] [place] [address] Nov, [facility] [place] [facility] [address] [id number] [place] [address] Oct, [facility] [place] [facility] [address] [id number] [place] [address] Jul, [facility] [place] [facility] [address] [id number] [place] [address] Jul, [facility] [place] [facility] [address] [id number] [place] [address] May, [facility] [place] [facility] [address] [id number] [place] [address] May, [facility] [place] [facility] [address] [id number] [place] [address] Nov, [facility] [place] [facility] [address] [facility] [id number] [place] [address] Mar, [facility] [place] [facility] [address] [id number] [place] [address] Dec, [facility] [place] [facility] [address] [id number] [place] [address] Nov, [facility] [place] [facility] [address] [id number] [place] [address] Aug, [facility] [place] [facility] [address] [id number] [place] [address] Apr, [facility] [place] [facility] [address] [id number] [place] [address] Apr, [facility] [address] [facility] [id number] [place] [address] Mar, [facility] [address] [id number] [place] [address] Feb, [facility] [address] [id number] [place] [address] September, [facility] [address] [id number] [place] [address] Jun, [facility] [address] [facility] [id number] [place] [address] Mar, IMMUNIZATIONS No Known Immunizations SOCIAL HISTORY [...] hernia Hospitalization History Went by ambulance to [place] as unresponsive 05/2015 Hospitalization History [place] sent her to [facility] for a psych hold 05/2015
--- OUTSIDE RECORDS SUMMARY | 2018-03-15 10:53 | XMS REPORT ---
Author Author HERBERT MCGOWAN Organization [facility] Address [facility] [place] [address] Care Team Providers Care Professor Of Mathematics Name Role Phone HERBERT MCGOWAN Unavailable PROBLEMS Type Condition ICD9-CM Code DTT25-ES Code Onset Dates Condition Status SNOMED Code Problem Psoriasis L40.9 Active 9849700 Problem Relationship problem with family member Z63.8 Active 552575962 Problem Essential hypertension I10 Active 25427170 Problem Anxiety F41.9 Active 04456270 Problem Visual disturbance H53.9 Active 38114097 Problem Rheumatoid arthritis involving multiple sites with positive rheumatoid factor M05.79 Active 654684467 Problem Bilateral low back pain with sciatica, sciatica laterality unspecified M54.40 Active 599917023 Problem Hypokalemia E87.6 Active 25580481 Problem Lumbago with sciatica, left side M54.42 Active 507364705 Problem Other chronic pain G89.29 Active 20676980 Problem 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 Active 274390820 Problem Blindness of right eye H54.40 Active 523058338 Problem Posttraumatic stress disorder F43.10 Active 26614506 Problem Overdose T50.901A Active 05254687 Problem Bipolar disorder F31.9 Active 30091997 Problem Borderline personality disorder F60.3 Active 14910896 Problem Obstructive sleep apnea G47.33 Active 06282355 Problem Acquired hypothyroidism E03.9 Active 575145761 Problem Pelvic pain R10.2 Active 76130365 Problem Chronic pain G89.29 Active 53037046 Problem Gastro-esophageal reflux disease without esophagitis K21.9 Active 971059092 Problem Anemia due to other cause, not classified D64.89 Active 437760843 Problem Social anxiety disorder F40.10 Active 46913864 Problem Morbid obesity, unspecified obesity type E66.01 Active 856712724 ALLERGIES No Information ENCOUNTERS Encounter Location Date Diagnosis [facility] [address] [address] Feb, [facility] [address] [place] [address] 24494- 5471 Feb, [facility] [address] [place] [address] 90263- 1226 Dec, [place] [address] [place] [address] 62424- 7626 Dec, [address] [id number] [id number] Dec, Dental examination Z01.20 [place] [id number] [place] [address] 82166- 7931 Nov, Bipolar disorder F31.9 ; Posttraumatic stress disorder F43.10 and Borderline personality disorder F60.3 [place] [id number] [place] [address] 27590- 5174 Nov, Rheumatoid arthritis involving multiple sites with positive rheumatoid factor M05.79 ; Dysuria R30.0 and Blindness of right eye H54.40 [place] [address] [place] [address] 89090- 9153 Nov, Bipolar disorder F31.9 ; Posttraumatic stress disorder F43.10 ; Social anxiety disorder F40.10 and Relationship problem with family member Z63.8 [place] [address] [place] [address] 77214- 3886 Nov, [place] [id number] [place] [address] 27156- 1813 Nov, [place] [address] [place] [address] 28484- 1415 Nov, 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 ; Adverse effect of antineoplastic and immunosuppressive drugs, initial encounter T45.1X5A ; Anemia , unspecified D64.9 and BMI 40.0-44.9, adult Z68.41 [place] [id number] [place] [address] 27711- 2713 Nov, Anemia due to other cause, not classified D64.89 [facility] [address] [place] [address] 87987- 0177 Oct, Adverse effect of drug, initial encounter T50.905A and Acute anemia D64.9 [facility] [address] [place] [address] 02946- 8785 Oct, Anemia due to other cause, not classified D64.89 ; Dysuria R30.0 and Urinary tract infection without hematuria, site unspecified N39.0 [facility] [address] [place] [address] 50925- 5600 Oct, [facility] [id number] [place] [address] 39958- 1252 Oct, [facility] [id number] [place] [address] 30134- 9147 Oct, 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 [facility] [id number] [id number] Oct, [facility] [id number] [place] [address] 19041- 5276 Oct, [facility] [address] [place] [address] 68234- 5236 Oct, [facility] [address] [place] [address] 63932- 5504 Oct, Bipolar disorder F31.9 ; Posttraumatic stress disorder F43.10 and Borderline personality disorder F60.3 [facility] [address] [place] [address] 07682- 5507 Oct, Rheumatoid arthritis involving multiple sites with positive rheumatoid factor M05.79 ; 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 and Anxiety F41.9 [facility] [address] [place] [address] 96519- 7866 Oct, [facility] [id number] [place] [address] 14233- 7041 September, 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 [facility] [id number] [place] [address] 59110- 3494 September, Bipolar disorder F31.9 ; Posttraumatic stress disorder F43.10 and Borderline personality disorder F60.3 [place] [id number] [place] [address] 49827- 9867 Aug, BMI 40.0-44.9, adult Z68.41 ; Bipolar disorder F31.9 ; Posttraumatic stress disorder F43.10 and Social anxiety disorder F40.10 [place] [id number] [place] [address] 28882- 2125 Aug, Bipolar disorder F31.9 ; Posttraumatic stress disorder F43.10 and Borderline personality disorder F60.3 [place] [id number] [place] [address] 04414- 9332 Aug, 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 [place] [id number] [place] [address] 64032- 6174 Jul, Bipolar disorder F31.9 ; Posttraumatic stress disorder F43.10 and Borderline personality disorder F60.3 [place] [id number] [place] [address] 15808- 3819 Jul, [place] [id number] [place] [address] 98369- 2049 Jun, Bipolar disorder F31.9 ; Posttraumatic stress disorder F43.10 and Borderline personality disorder F60.3 [place] [id number] [place] [address] 72307- 9294 Jun, Blindness of right eye H54.40 and Acquired hypothyroidism E03.9 [place] [id number] [place] [address] 78644- 0408 Jun, [place] [id number] [place] [address] 54210- 3847 May, Posttraumatic stress disorder F43.10 ; Social anxiety disorder F40.10 and Bipolar disorder F31.9 [facility] [address], [place] [address] 7854 May, Bipolar disorder F31.9 ; Posttraumatic stress disorder F43.10 and Borderline personality disorder F60.3 [place] [address], [place] [address] 6064 May, [facility] [id number] [place] [address] 22924- 1552 May, [place] [address] [place] [address] 64892- 8020 Apr, Bipolar disorder F31.9 ; Posttraumatic stress disorder F43.10 and Borderline personality disorder F60.3 [address] [address] Apr, [place] [address] [place] [address] 14390- 3060 Apr, [place] [address] [place] [address] 25940- 1564 Mar, Hydradenitis L73.2 [place] [address] [place] [address] 94765- 9748 15 Mar, 2017 Lumbago with sciatica, left side M54.42 ; Other chronic pain G89.29 ; Morbid obesity, unspecified obesity type E66.01 ; Hydradenitis L73.2 and BMI 40.0-44.9, adult Z68.41 [place] [address], [place] [address] 9182 07 Mar, 2017 Bipolar disorder F31.9 ; Posttraumatic stress disorder F43.10 and Borderline personality disorder F60.3 [place] [address] [place] [address] 56212- 3866 07 Mar, 2017 Social anxiety disorder F40.10 ; Bipolar disorder F31.9 and Relationship problem with family member Z63.8 [place] [id number] [place] [address] 21506006- 2224 Mar, [facility] [address] [id number] [id number] Mar, Dental examination Z01.20 [facility] [address] [id number], [place] [address] 8867 Mar, [facility] [address] [id number], [place] [address] 3256 Feb, Bipolar disorder F31.9 ; Posttraumatic stress disorder F43.10 and Borderline personality disorder F60.3 [facility] [address] [facility] [id number][place] [id number] Feb, [facility] [address] [id number], [place] [address] 8987 14 Jan, 2017 Bipolar disorder F31.9 ; Posttraumatic stress disorder F43.10 and Borderline personality disorder F60.3 [facility] [address] [id number] [id number] Jan, [facility] [address] [id number], [place] [address]- 7394 Jan, [facility] [address] [facility] [id number][place] [id number] Jan, [facility] [address] [id number], [place] [address]- 7490 Dec, Bipolar disorder F31.9 ; Posttraumatic stress disorder F43.10 and Borderline personality disorder F60.3 [facility] [address] [id number], [place] [address]- 7925 Dec, [facility] [address] [id number], [place] [address]- 2420 Dec, [facility] [address] [facility] [id number][place] [id number] Dec, [facility] [address] [id number], [place] [address]- 2035 Nov, Bipolar 1 disorder F31.9 ; Posttraumatic stress disorder F43.10 and Social anxiety disorder F40.10 [place] [address] [place] [address] 50218- 3049 Nov, Bipolar disorder F31.9 ; Posttraumatic stress disorder F43.10 and Borderline personality disorder F60.3 [place] [address] [place] [address] 94918- 3694 Nov, Morbid obesity, unspecified obesity type E66.01 [place] [id number] [place] [address] 44173- 4232 Nov, [address] [id number] Oct, Encounter for dental examination and cleaning without abnormal findings Z01.20 [place] [id number] [place] [address] 26641- 9907 15 Oct, 2016 Morbid obesity, unspecified obesity type E66.01 and Acute seasonal allergic rhinitis due to pollen J30.1 [place] [id number] [place] [address] 21143- 0049 Oct, Bipolar disorder F31.9 ; Posttraumatic stress disorder F43.10 and Borderline personality disorder F60.3 [place] [id number] [place] [address] 41806- 1832 September, Morbid obesity, unspecified obesity type E66.01 and Psoriasis L40.9 [place] [id number] [place] [address] 82923- 5785 September, Bipolar disorder F31.9 ; Posttraumatic stress disorder F43.10 and Borderline personality disorder F60.3 [place] [id number] [place] [address] 56838- 2511 September, Chronic pain G89.29 [place] [id number] [place] [address] 59203- 7856 Aug, Other acute nonsuppurative otitis media of right ear H65.191 and Morbid obesity, unspecified obesity type E66.01 [place] [id number] [place] [address] 16688- 3769 Aug, Bipolar 1 disorder F31.9 ; Posttraumatic stress disorder F43.10 and Social anxiety disorder F40.10 [place] [id number] [place] [address] 45476- 4696 Aug, Bipolar disorder F31.9 ; Posttraumatic stress disorder F43.10 and Borderline personality disorder F60.3 [place] [address] 96383- 1584 Jul, Morbid obesity due to excess calories E66.01 ; Gastro- esophageal reflux disease without esophagitis K21.9 and Chronic pain G89.29 [place] [id number] [place] [address] 54118- 0765 Jul, Morbid obesity due to excess calories E66.01 [place] [id number] [place] [address] 38279- 6324 Jul, [place] [id number] [place] [address] 00316- 6249 Jul, [place] [id number] [place] [address] 38261- 1679 Jul, Morbid obesity due to excess calories E66.01 [place] [id number] [place] [address] 83503- 1986 Jul, Bipolar disorder F31.9 ; Posttraumatic stress disorder F43.10 and Borderline personality disorder F60.3 [place] [id number] [place] [address] 12546- 5903 Jun, [place] [id number] [place] [address] 49585- 4276 Jun, Morbid obesity due to excess calories E66.01 [facility] [id number] [place] [address] 56984- 7076 Jun, [facility] [id number] [place] [address] 59470- 7863 09 Jun, 2016 Morbid obesity, unspecified obesity type E66.01 [facility] [address] [place] [address] 82929- 3151 03 Jun, 2016 Bipolar disorder F31.9 ; Posttraumatic stress disorder F43.10 and Borderline personality disorder F60.3 [facility] [address] [place] [address] 46805- 0211 Jun, [facility] [id number] [place] [address] 15207- 7003 Jun, [facility] [id number] [place] [address] 28969- 2316 Jun, Acquired hypothyroidism E03.9 and Morbid obesity due to excess calories E66.01 [facility] [address] [place] [address] 83837- 0326 May, Bipolar disorder F31.9 ; Posttraumatic stress disorder F43.10 and Borderline personality disorder F60.3 [facility] [address] [place] [address] 19019- 9447 Apr, Bipolar 1 disorder F31.9 ; Posttraumatic stress disorder F43.10 and Social anxiety disorder F40.[address] [id number] [id number] Apr, Encounter for dental examination Z01.20 [facility] [address] [place] [address] 73039- 2842 Apr, [facility] [address] [place] [address] 32235- 4796 Apr, Acquired hypothyroidism E03.9 [facility] [id number] [place] [address] 69085- 7779 Apr, Acquired hypothyroidism E03.9 [facility] [address] [place] [address] 12918- 3788 Apr, Bipolar disorder F31.9 ; Posttraumatic stress disorder F43.10 and Borderline personality disorder F60.3 [facility] [address], [place] [address]- 8677 Apr, Acquired hypothyroidism E03.9 [facility] [address] [id number][place] [id number] Mar, Encounter for dental examination and cleaning without abnormal findings Z01.20 [facility] [address] [place] [id number] [place] [address] 30303- 1537 Mar, [facility] [address] [place] [id number] [place] [address] 07834- 0607 Mar, Bipolar disorder F31.9 ; Posttraumatic stress disorder F43.10 and Borderline personality disorder F60.3 [place] [id number] [place] [address] 56806- 8056 Mar, Essential (primary) hypertension I10 [place] [id number] [place] [address] 75076- 9229 Feb, [facility] [id number] [place] [address] 61273- 2714 Feb, [facility] [address] [place] [id number] [place] [address] 18186- 4045 Feb, Pelvic pain R10.2 ; Lipid screening Z13.220 ; Fatigue, unspecified type R53.83 and Weight gain R63.5 [address] [place] [address] 61064- 0894 Feb, Bipolar disorder F31.9 ; Posttraumatic stress disorder F43.10 and Borderline personality disorder F60.3 [facility] [address] [place] [id number] [place] [address] 39073- 8043 Feb, [facility] [address] [place] [id number] [place] [address] 19470- 5835 Feb, [facility] [address] [place] [address] 19748- 8809 Jan, Obstructive sleep apnea syndrome G47.33 [facility] [address] [id number] [address]- 7[address] Jan, [facility] [address] [id number] [id number] Jan, Dental examination Z01.20 [facility] [address] [place] [address] 56084- 5903 13 Jan, 2016 Bipolar 1 disorder F31.9 ; Posttraumatic stress disorder F43.10 and Social anxiety disorder F40.10 [facility] [id number] [place] [address] 67643- 5857 Jan, Bipolar disorder F31.9 ; Posttraumatic stress disorder F43.10 and Borderline personality disorder F60.3 [place] [id number] [place] [address] 99743- 1149 Jan, Sciatica of left side M54.32 [place] [address] [place] [address] 69007- 3791 Jan, [facility] [address] [place] [address] 66803- 6249 Dec, [facility] [id number] [place] [address] 97758- 8946 Dec, [facility] [address] [place] [address] 87738- 1859 Dec, Bipolar disorder F31.9 ; Posttraumatic stress disorder F43.10 and Borderline personality disorder F60.3 [facility] [address], [place] [address]- 3592 Nov, [facility] [address] [place] [address] 82696- 2342 Nov, Insomnia, unspecified type G47.00 [facility] [address] [place] [address] 74128- 4220 Nov, Bipolar disorder F31.9 ; Posttraumatic stress disorder F43.10 and Borderline personality disorder F60.3 [facility] [address] [id number], [place] [address]- 9738 Nov, [facility] [address] [place] [address] 61403- 0231 Nov, [facility] [id number] [place] [address] 31013- 2212 Oct, Bipolar disorder F31.9 ; Posttraumatic stress disorder F43.10 and Borderline personality disorder F60.3 [facility] [id number] [place] [address] 84062- 1811 Oct, [facility] [id number] [place] [address] 95187- 5726 Oct, Essential (primary) hypertension I10 [facility] [id number] [place] [address] 34948- 3815 September, Bipolar 1 disorder F31.9 ; Posttraumatic stress disorder F43.10 and Social anxiety disorder F40.10 [facility] [id number] [place] [address] 85196- 6362 September, Bipolar disorder F31.9 ; Posttraumatic stress disorder F43.10 and Borderline personality disorder F60.[address] [id number] [id number] September, Encounter for dental examination and cleaning without abnormal findings Z01.20 [facility] [address] [place] [address] 29774- 9219 September, [facility] [address] [place] [address] 60636- 0895 September, [facility] [address] [place] [address] 25122- 0729 Aug, [facility] [id number] [place] [address] 02560- 0594 Aug, Bipolar disorder F31.9 ; Posttraumatic stress disorder F43.10 and Borderline personality disorder F60.3 [facility] [id number] [place] [address] 07582- 4504 Aug, [facility] [id number], [place] [address]- 7533 Aug, [facility] [address] [place] [address] 99919- 6783 Aug, [facility] [id number] [id number] Jul, Acute nasopharyngitis [common cold] J00 and Other viral agents as the cause of diseases classified elsewhere B97.89 [facility] [address] [place] [address] 34019- 4801 24 Jul, 2015 Chronic pain G89.29 and Allergic rhinitis J30.9 [facility] [address] [place] [address] 07429- 1880 24 Jul, 2015 Bipolar 1 disorder F31.9 ; Posttraumatic stress disorder F43.10 and Social anxiety disorder F40.10 [facility] [address] [place] [address] 10011- 9176 16 Jul, 2015 Bipolar 1 disorder F31.9 [facility] [address] [place] [address] 63100- 9621 16 Jul, 2015 Bipolar disorder F31.9 ; Posttraumatic stress disorder F43.10 and Borderline personality disorder F60.3 [facility] [address] [place] [address] 06789- 8980 14 Jul, 2015 [facility] [address] [place] [address] 02240- 4761 14 Jul, 2015 [facility] [address] [place] [address] 70966- 3106 11 Jul, 2015 [facility] [id number] [place] [address] 23166- 3659 10 Jul, 2015 Anxiety F41.9 [facility] [address] [place] [address] 51644- 2531 10 Jul, 2015 Chronic pain G89.29 and Encounter for therapeutic drug level monitoring Z51.81 [facility] [address], [place] [address]- 9321 09 Jul, 2015 Chronic pain G89.29 and Encounter for therapeutic drug level monitoring Z51.81 [facility] [id number] [place] [address] [id number]- [phone] 08 Jul, 2015 [facility] [id number] [place] [address] [id number]- 7857 Jun, [facility] [id number] [place] [address] 41676- [phone] Jun, [facility] [id number] [place] [address] 18633- [id number] Jun, [facility] [id number] [place] [address] [id number]- [id number] Jun, [facility] [id number] [place] [address] 64687- 9301 Jun, High risk medication use V58.69 [facility] [id number] [place] [address] 80123- 9546 Jun, [facility] [id number] [place] [address] 72852- 4779 Jun, Bipolar 1 disorder F31.9 ; Overdose T50.901A and Chronic pain G89.29 [facility] [id number] [place] [address] 84195- [id number] Jun, Bipolar disorder F31.9 ; Posttraumatic stress disorder F43.10 and Borderline personality disorder F60.3 [facility] [id number] [place] [address] 89933- 4793 Jun, [facility] [id number] [place] [address] [phone]- 8979 Jun, [facility] [id number] [place] [address] 38821- 0255 03 Feb, 2016 Keloid L91.0 [facility] [id number], [place] [address] Jun, [facility] [id number] [place] [address] 73963- 6099 May, [facility] [id number] [place] [address] 61870- 0375 May, [facility] [id number] [place] [address] 50118- 2233 May, Pelvic pain R10.2 [facility] [id number] [place] [address] 56548- 7004 May, [facility] [id number] [place] [address] 43903- 9021 May, Pain of left thumb M79.645 ; Incisional pain R20.8 ; Pelvic pain R10.2 and Essential hypertension I10 [facility] [address], [place] [address] 85[address] May, [facility] [address], [place] [address] 90[address] May, [id number] [id number] May, Dental examination Z01.20 and Necrosis of pulp K04.1 [facility] [address], [place] [address] Apr, [facility] [address], [place] [address] 9958 Apr, [facility] [id number] [place] [address] 58452- 3993 Apr, [facility] [address], [place] [address] 5630 Apr, [facility] [address], [place] [address] 2663 Apr, [facility] [address] [id number] [place] [address] 5593 Apr, 2014 [facility] [place] [facility] [address] [id number] [place] [address] 5067 Apr, [facility] [place] [facility] [address] [id number] [place] [address]- 7291 Apr, [facility] [place] [facility] [address] [id number] [place] [address]- 4881 Mar, [facility] [address] [id number] [place] [address] Mar, [facility] [place] [facility] [address] [id number] [place] [address]- 1777 Mar, [facility] [address] [id number] [place] [address]- 7013 Mar, [facility] [address] [id number], [place] [address] 3880 Feb, [facility] [address] [id number] [place] [address]- 8157 Feb, [facility] [address] [id number], [place] [address]- 7699 Feb, [facility] [place] [facility] [address] [id number], [place] [address] 3015 Feb, [facility] [place] [facility] [address] [id number], [place] [address]- 1868 Feb, 2014 [facility] [place] [facility] [address] [id number] 8830 Feb, [facility] [place] [facility] [address] [id number], [place] [address]- 4017 Feb, 2014 [facility] [place] [facility] [address] [id number] 1102 Feb, 2014 Dermatofibroma of left lower leg D23.72 [facility] [address], [place] [address] 6627 Feb, Hematochezia 578.1 ; Low back pain M54.5 ; High risk medication use V58.69 ; Cervicalgia M54.2 and Anxiety F41.9 [facility] [address] [facility] [address] [id number] [id number] Feb, Dental examination Z01.20 ; Pulpitis K04.0 and Dental caries, unspecified K02.9 [facility] [address] [facility] [id number][place] [id number] Feb, Dental examination Z01.20 [facility] [id number] [place] [address] 78334- 7575 Jan, [facility] [id number] [place] [address] 95056- 4505 Jan, [facility] [id number] [place] [address] 05359- 1652 Jan, [facility] [id number] [place] [address] 76000- 9161 Jan, [facility] [id number] [place] [address] 55265- 8141 Dec, [facility] [id number] [place] [address] 66197- 8781 Dec, [facility] [id number] [place] [address] 82333- 8388 Dec, [facility] [address], [place] [address]- 7633 Dec, [facility] [id number] [place] [address] 28699- 4099 Dec, [facility] [address], [place] [address]- 0789 Dec, [facility] [id number] [place] [address] 28296- 0673 Dec, [facility] [address] [id number], [place] [address]- 4827 Dec, [facility] [address] [id number] [id number] Nov, Encounter for removal of sutures V58.32 [facility] [address], [place] [address]- 0948 Nov, [facility] [address], [place] [address]- 9251 Nov, [facility] [address], [place] [address]- 5871 Nov, [facility] [address], [place] [address]- 4788 Nov, [facility] [address], [place] [address]- 0880 Nov, [facility] [address], [place] [address]- 4937 Nov, [facility] [address], [place] [address]- 6466 Nov, [facility] [address], [place] [address]- 8232 Nov, Dermatofibroma 216.9 [facility] [address], [place] [address]- 4060 Nov, [facility] [id number], [place] [address]- 2435 Nov, [facility] [address] [id number], [place] [address]- 3919 Oct, [facility] [address] [address] [address]50 Oct, Hematochezia 578.1 ; Abscess 682.9 ; GERD (gastroesophageal reflux disease) 530.81 ; Visual disturbance of one eye 368.9 and High risk medication use V58.69 [facility] [address] [id number] [place] [address]- 8583 Oct, [facility] [address] [id number] [place] [address]- 8968 Oct, [facility] [address] [id number] [place] [address]- 6818 Oct, [facility] [address] [id number] [place] [address]- 0377 September, [facility] [address] [id number] [place] [address]- 2897 September, [facility] [address] [id number] [place] [address]- 4516 September, [facility] [address] [id number] [place] [address]- 1673 September, [facility] [address] [id number], [place] [address]- 1602 September, [facility] [address] [id number] [place] [address]- 8508 September, Colon cancer screening V76.51 [facility] [address] [id number] [place] [address]- 6509 September, [facility] [address] [id number], [place] [address]- 5994 Aug, [facility] [address] [id number] [place] [address]- 0664 Aug, [facility] [address] [id number] [place] [address]- 8132 Jul, [facility] [address] [id number] [place] 9473 Jul, [facility] [address] [id number] [place] [address]- 8791 Jul, [facility] [address] [id number] [place] [address]- 7033 Jul, [facility] [place] [facility] [address] [id number] [place] [address]- 7821 Jun, [facility] [place] [facility] [address] [id number] [place] [address]- 1006 Jun, [facility] [place] [facility] [address] [id number] [place] [address]- 5446 Jun, [facility] [place] [facility] [address] [id number] [place] [address]- 9450 Jun, [facility] [place] [facility] [address] [id number] [place] [address]- 3460 Jun, [facility] [place] [facility] [address] [id number] [place] [address]- 3086 Jun, [facility] [place] [facility] [address] [id number] [place] [address]- 1374 May, [facility] [place] [facility] [address] [id number] [place] [address]- 9314 May, [facility] [place] [facility] [address] [id number] [place] [address]- 8830 May, [facility] [place] [facility] [address] [id number] [place] [address]- 9724 May, [facility] [place] [facility] [address] [id number] [place] [address]- 1606 May, [facility] [place] [facility] [address] [id number] [place] [address]- 7668 May, [facility] [place] [facility] [address] [id number] [place] [address]- 2041 May, [facility] [place] [facility] [address] [id number] [place] 0616 May, [facility] [place] [facility] [address] [id number] [place] [address]- 3168 Apr, [facility] [place] [facility] [address] [id number] [place] [address]- 8824 Apr, [facility] [place] [facility] [address] [id number] [place] [address]- 4414 Apr, [facility] [place] [facility] [address] [id number] [place] [address]- 9390 Apr, [facility] [place] [facility] [address] [id number] [place] [address]- 5643 Apr, [facility] [place] [facility] [address] [id number] [place] [address]- 1771 Apr, [facility] [place] [facility] [address] [id number] [place] [address]- 4597 Apr, [facility] [place] [facility] [address] [id number] [place] [address]- 3681 Apr, [facility] [place] [facility] [address] [id number] [place] [address]- 4950 Mar, [facility] [place] [facility] [address] [id number] [place] [address]- 4605 Mar, [facility] [place] [facility] [address] [id number] [place] [address]- 6773 Mar, [facility] [place] [facility] [address] [id number], [place] [address]- 6129 Mar, [facility] [place] [facility] [address] [id number], [place] [address]- 7519 Mar, [facility] [place] [facility] [address] [id number] [place] [address]- 0375 Mar, [facility] [place] [facility] [address] [id number], [place] [address]- 0710 Mar, [facility] [place] [facility] [address] [id number], [place] [address]- 1713 Mar, [facility] [place] [facility] [address] [id number] [place] [address]- 7998 Mar, [facility] [place] [facility] [address] [id number] [place] [address]- 9450 Mar, [facility] [place] [facility] [address] [id number] [place] [address]- 2386 Feb, [facility] [place] [facility] [address] [id number] [place] [address]- 8052 Feb, [facility] [place] [facility] [address] [id number] [place] [address]- 2589 Jan, [facility] [place] [facility] [address] [id number] [place] [address]- 1425 Jan, [facility] [place] [facility] [address] [id number] [place] [address]- 5897 Jan, [facility] [place] [facility] [address] [id number] [place] [address]- 2321 Jan, [facility] [place] [facility] [address] [id number] [place] [address]- 0148 Dec, [facility] [place] [facility] [address] [id number] [place] [address]- 5553 Dec, [facility] [place] [facility] [address] [id number] [place] [address]- 4622 Dec, [facility] [place] [facility] [address] [id number] [place] [address]- 3555 Dec, [facility] [place] [facility] [address] [id number] [place] [address]- 9252 Dec, [facility] [place] [facility] [address] [id number] [place] [address]- 0044 Dec, [facility] [place] [facility] [address] [id number] [place] [address]- 6382 Nov, [facility] [place] [facility] [address] [id number] [place] [address]- 2718 Nov, [facility] [place] [facility] [address] [id number] [place] [address]- 4653 Oct, [facility] [place] [facility] [address] [id number] [place] [address]- 1444 Oct, [facility] [place] [facility] [address] [id number] [place] [address]- 4823 Oct, [facility] [place] [facility] [address] [id number] [place] [address]- 7050 Oct, [facility] [place] [facility] [address] [id number] [place] [address]- 4585 September, [facility] [place] [facility] [address] [id number] [place] [address]- 5652 September, [facility] [place] [facility] [address] [id number] [place] [address]- 6792 September, [facility] [place] [facility] [address] [id number] [place] [address]- 7184 September, [facility] [place] [facility] [address] [id number] [place] [address]- 0740 September, [facility] [place] [facility] [address] [id number] [place] [address]- 3740 September, [facility] [place] [facility] [address] [id number] [place] [address]- 6847 September, [facility] [place] [facility] [address] [id number] [place] [address]- 8906 September, [facility] [place] [facility] [address] [id number] [place] [address]- 3473 Aug, [facility] [place] [facility] [address] [id number] [place] [address]- 2410 Aug, [facility] [place] [facility] [address] [id number] [place] [address]- 8068 Aug, [facility] [place] [facility] [address] [id number], [place] [address]- 2501 Aug, [facility] [place] [facility] [address] [id number] [place] [address]- 3033 Aug, [facility] [place] [facility] [address] [id number] [place] [address]- 5864 Aug, [facility] [place] [facility] [address] [id number] [place] [address]- 0014 Jul, [facility] [place] [facility] [address] [id number] [place] [address]- 9866 Jul, [facility] [place] [facility] [address] [id number] [place] [address]- 9672 Jul, [facility] [place] [facility] [address] [id number] [place] [address]- 0454 Jul, [facility] [place] [facility] [address] [id number] [place] [address]- 1896 Jun, [facility] [place] [facility] [address] [id number] [place] [address]- 2970 Jun, [facility] [place] [facility] [address] [id number] [place] [address]- 3966 Jun, [facility] [place] [facility] [address] [id number] [place] [address]- 7677 Jun, [facility] [place] [facility] [address] [id number] [place] [address]- 1571 Jun, [facility] [place] [facility] [address] [id number], [place] [address]- 2836 Jun, [facility] [place] [facility] [address] [id number] [place] [address]- 7388 May, [facility] [place] [facility] [address] [id number], [place] [address]- 6613 May, [facility] [place] [facility] [address] [id number], [place] [address]- 3424 May, [facility] [place] [facility] [address] [id number] [place] [address]- 4693 May, [facility] [address] [id number] [place] [address]- 0416 May, [facility] [address] [id number] [place] [address]- 2546 May, [facility] [address] [id number] [place] [address]- 2546 May, [facility] [address] [id number] [place] [address]- 2544 May, [facility] [address] [id number] [place] [address]- 4366 Apr, [facility] [address] [place] [id number] Apr, [facility] [address] [id number] [place] [address]- 9556 Apr, [facility] [address] [id number] [place] [address]- 8878 Apr, [facility] [address] [id number] [place] [address]- 1888 Apr, [facility] [address] [id number] [place] [address]- 3349 Apr, [facility] [address] [id number] [place] [address]- 2546 05 Apr, 2013 [facility] [address] [id number] [place] [address]- 2546 05 Apr, 2013 [facility] [address] [id number] [place] [address]- 2546 04 Apr, 2013 [facility] [address] [id number] [place] [address]- 2546 Mar, [facility] [address] [id number] [place] [address]- 4419 Mar, [facility] [place] [facility] [address] [id number] [place] [address]- 1282 Mar, [facility] [place] [facility] [address] [id number] [place] [address]- 7951 Mar, [facility] [place] [facility] [address] [id number] [place] [address]- 1954 Mar, [facility] [place] [facility] [address] [id number] [place] [address]- 4526 Feb, [facility] [place] [facility] [address] [id number] [place] [address]- 1129 Feb, [facility] [place] [facility] [address] [id number] [place] [address]- 9914 Feb, [facility] [place] [facility] [address] [id number] [place] [address]- 8191 Feb, [facility] [place] [facility] [address] [id number], [place] [address]- 2901 Jan, [facility] [place] [facility] [address] [id number] [place] [address]- 1441 Jan, [facility] [place] [facility] [address] [id number], [place] [address]- 4651 Jan, [facility] [place] [facility] [address] [id number], [place] [address]- 7426 Dec, [facility] [place] [facility] [address] [id number], [place] [address]- 9356 Dec, [facility] [place] [facility] [address] [id number], [place] [address]- 9278 Dec, [facility] [address] [id number] [id number] Nov, [facility] [address] [id number][place] [id number] Oct, [facility] [place] [facility] [address] [id number], [place] [address]- 8030 Oct, [facility] [address] [id number] [place] [address]- 9576 September, [facility] [place] [facility] [address] [id number] [place] [address]- 8123 September, [facility] [address] [id number] [place] [address]- 8060 September, [facility] [place] [facility] [address] [id number] [place] [address]- 0049 September, [facility] [address] [id number] [place] [address]- 5178 September, [facility] [place] [facility] [address] [id number] [place] [address]- 5413 Jul, [facility] [place] [facility] [address] [id number] [place] [address]- 6069 Jul, [facility] [place] [facility] [address] [id number] [place] [address]- 6255 Jul, [facility] [place] [facility] [address] [id number] [place] [address]- 2692 Jul, [facility] [place] [facility] [address] [id number] [place] [address]- 8167 Jun, [facility] [place] [facility] [address] [id number] [place] [address]- 5878 Jun, [facility] [place] [facility] [address] [id number] [place] [address]- 2679 Jun, [facility] [place] [facility] [address] [id number] [place] [address] Jun, [facility] [place] [facility] [address] [id number] [place] [address] May, [facility] [place] [facility] [address] [id number] [place] [address] Mar, [facility] [place] [facility] [address] [id number], [place] [address] Mar, [facility] [place] [facility] [address] [id number], [place] [address] Mar, [facility] [place] [facility] [address] [id number], [place] [address] Mar, [facility] [place] [facility] [address] [id number], [place] [address] Mar, [facility] [place] [facility] [address] [id number], [place] [address] Mar, [facility] [place] [facility] [address] [id number] [place] [address] Mar, [facility] [place] [facility] [address] [id number], [place] [address] Mar, [facility] [place] [facility] [address] [id number], [place] [address] Feb, [facility] [place] [facility] [address] [id number], [place] [address] Feb, [facility] [place] [facility] [address] [id number], [place] [address] Feb, [facility] [place] [facility] [address] [id number], [place] [address] Feb, [facility] [place] [facility] [address] [id number], [place] [address] Feb, [facility] [place] [facility] [address] [id number], [place] [address] Feb, [facility] [place] [facility] [address] [id number] [address] Feb, [facility] [address] [id number] [id number] Jan, [facility] [address] [id number][place] [id number] Dec, [facility] [address] [id number] [place] [id number] 15 Dec, 2011 [facility] [address] [id number] [place] [address] 30 Nov, 2011 [facility] [place] [facility] [address] [id number] [place] [address] Nov, [facility] [address] [id number] [place] [address] Oct, [facility] [place] [facility] [address] [id number] [place] [address] Jul, [facility] [address] [id number] [place] [address] Jul, [facility] [place] [facility] [address] [id number] [place] [address] May, [facility] [address] [id number] [place] [address] May, [facility] [address] [id number] [place] [address] Nov, [facility] [address] [id number] [place] [address] Mar, [facility] [address] [id number] [place] [address] Dec, [facility] [place] [facility] [address] [id number] [place] [address] Nov, [facility] [place] [facility] [address] [id number] [place] [address] Aug, [facility] [place] [facility] [address] [id number] [place] [address] Apr, [facility] [place] [facility] [address] [id number] [place] [address] Apr, [facility] [place] [facility] [address] [id number], [place] [address] Mar, [facility] [address] [id number], [place] [address] Feb, [facility] [address] [id number], [place] [address] September, [facility] [address] [id number], [place] [address] Jun, [facility] [address] [id number], [place] [address] Mar, IMMUNIZATIONS No Known Immunizations SOCIAL HISTORY Never Assessed REASON FOR VISIT Lab (walk-in) PLAN OF CARE VITAL SIGNS MEDICATIONS Unknown Medications RESULTS No Results PROCEDURES Procedure Date Ordered Result Body Site LAB NOT BILLED BY [facility] November 03, 2017 MARLENA, ROUTINE* November 03, 2017 INSTRUCTIONS MEDICATIONS ADMINISTERED No Known Medications [...] hernia Hospitalization History Went by ambulance to [place] as unresponsive 05/2015 Hospitalization History [place] sent her to [facility] for a psych hold 05/2015
--- OUTSIDE RECORDS SUMMARY | 2018-03-15 10:53 | XMS REPORT ---
Author Author HERBERT MCGOWAN Organization [facility] Address [facility] [place] [address] Care Team Providers Care Cracking Still Operator Name Role Phone HERBERT MCGOWAN Unavailable PROBLEMS Type Condition ICD9-CM Code TYH78-CE Code Onset Dates Condition Status SNOMED Code Problem Psoriasis L40.9 Active 5484945 Problem Relationship problem with family member Z63.8 Active 270109415 Problem Essential hypertension I10 Active 81749602 Problem Anxiety F41.9 Active 01405361 Problem Visual disturbance H53.9 Active 51534572 Problem Rheumatoid arthritis involving multiple sites with positive rheumatoid factor M05.79 Active 980146308 Problem Bilateral low back pain with sciatica, sciatica laterality unspecified M54.40 Active 556811377 Problem Hypokalemia E87.6 Active 06195623 Problem Lumbago with sciatica, left side M54.42 Active 411332438 Problem Other chronic pain G89.29 Active 72586839 Problem 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 Active 124735146 Problem Blindness of right eye H54.40 Active 337560089 Problem Posttraumatic stress disorder F43.10 Active 09352259 Problem Overdose T50.901A Active 31221580 Problem Bipolar disorder F31.9 Active 51501035 Problem Borderline personality disorder F60.3 Active 75055040 Problem Obstructive sleep apnea G47.33 Active 48412164 Problem Acquired hypothyroidism E03.9 Active 951103338 Problem Pelvic pain R10.2 Active 69976164 Problem Chronic pain G89.29 Active 32546769 Problem Gastro-esophageal reflux disease without esophagitis K21.9 Active 546565626 Problem Anemia due to other cause, not classified D64.89 Active 466280213 Problem Social anxiety disorder F40.10 Active 16193937 Problem Morbid obesity, unspecified obesity type E66.01 Active 555764026 ALLERGIES No Information ENCOUNTERS Encounter Location Date Diagnosis [facility] [address], [place] [address] Feb, [facility] [address], [place] [address] Feb, [facility] [address], [place] [address] 8[address] Dec, [facility] [address], [place] [address] Dec, [place] [address], [place] [address] Dec, [address] [id number] [id number] Dec, Dental examination Z01.20 [place] [address], [place] [address] Nov, Bipolar disorder F31.9 ; Posttraumatic stress disorder F43.10 and Borderline personality disorder F60.3 [place] [address], [place] [address] Nov, Rheumatoid arthritis involving multiple sites with positive rheumatoid factor M05.79 ; Dysuria R30.0 and Blindness of right eye H54.40 [place] [address], [place] [address] 8[address] Nov, Bipolar disorder F31.9 ; Posttraumatic stress disorder F43.10 ; Social anxiety disorder F40.10 and Relationship problem with family member Z63.8 [place] [address], [place] [address] 95[address] Nov, [place] [address] [place] [address] 14525- 6916 Nov, [place] [address] [place] [address] 63938- 0000 Nov, 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 ; Adverse effect of antineoplastic and immunosuppressive drugs, initial encounter T45.1X5A ; Anemia , unspecified D64.9 and BMI 40.0-44.9, adult Z68.41 [place] [address] [place] [address] 93381- 0536 Nov, Anemia due to other cause, not classified D64.89 [place] [address] [place] [address] [id number] [place] [address] 37010- 2198 Oct, Adverse effect of drug, initial encounter T50.905A and Acute anemia D64.9 [place] [address] [id number] [place] [address] 16084- 0155 Oct, Anemia due to other cause, not classified D64.89 ; Dysuria R30.0 and Urinary tract infection without hematuria, site unspecified N39.0 [place] [address] [id number] [place] [address] 12812- 9723 Oct, [place] [address] [id number] [place] [address] 83367- 9542 Oct, [place] [address] [id number] [place] [address] 89111- 4449 Oct, 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 [facility] [id number] [place] [address] [id number] Oct, [place] [address] [id number] [place] [address] 44442- 6027 Oct, [place] [address] [place] [address] 84274- 1588 Oct, [place] [address] [id number] [place] [address] 16112- 1642 Oct, Bipolar disorder F31.9 ; Posttraumatic stress disorder F43.10 and Borderline personality disorder F60.3 [place] [address] [id number] [place] [address] 01384- 6889 Oct, Rheumatoid arthritis involving multiple sites with positive rheumatoid factor M05.79 ; 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 and Anxiety F41.9 [place] [address] [id number] [place] [address] 11451- 0522 Oct, [facility] [id number] [place] [address] 50248- 5633 September, 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 [facility] [address] [id number] [place] [address] 37157- 4738 September, Bipolar disorder F31.9 ; Posttraumatic stress disorder F43.10 and Borderline personality disorder F60.3 [place] [address] [id number] [place] [address] 72995- 8353 Aug, BMI 40.0-44.9, adult Z68.41 ; Bipolar disorder F31.9 ; Posttraumatic stress disorder F43.10 and Social anxiety disorder F40.10 [place] [address] [id number] [place] [address] 38083- 4178 Aug, Bipolar disorder F31.9 ; Posttraumatic stress disorder F43.10 and Borderline personality disorder F60.3 [place] [address] [id number] [place] [address] 18779- 1555 Aug, 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 [place] [address] [id number] [place] [address] 32208- 5211 Jul, Bipolar disorder F31.9 ; Posttraumatic stress disorder F43.10 and Borderline personality disorder F60.3 [place] [address] [id number] [place] [address] 29479- 3300 Jul, [place] [address] [id number] [place] [address] 21437- 7043 Jun, Bipolar disorder F31.9 ; Posttraumatic stress disorder F43.10 and Borderline personality disorder F60.3 [place] [address] [id number] [place] [address] 42655- 3467 Jun, Blindness of right eye H54.40 and Acquired hypothyroidism E03.9 [place] [address] [address] [address] [place] [address] 07187- 7795 Jun, [place] [address], [place] [address]- 8086 May, Posttraumatic stress disorder F43.10 ; Social anxiety disorder F40.10 and Bipolar disorder F31.9 [place] [address] [place] [address] 02677- 9521 May, Bipolar disorder F31.9 ; Posttraumatic stress disorder F43.10 and Borderline personality disorder F60.3 [place] [address] [id number] [place] [address] 47429- 5563 May, [place] [address] [place] [address] 22262- 3430 May, [place] [address] [address] [id number] [place] [address] 94784- 6846 Apr, Bipolar disorder F31.9 ; Posttraumatic stress disorder F43.10 and Borderline personality disorder F60.3 [place] [id number] [place] [address] [id number] Apr, [place] [address] [place] [address] 61505- 9096 Apr, [place] [address] [address] [id number] [place] [address] 17800- 3661 Mar, Hydradenitis L73.2 [place] [address] [place] [address] 11535- 4587 Mar, Lumbago with sciatica, left side M54.42 ; Other chronic pain G89.29 ; Morbid obesity, unspecified obesity type E66.01 ; Hydradenitis L73.2 and BMI 40.0-44.9, adult Z68.41 [place] [address] [id number] [place] [address] 84720- 3289 Mar, Bipolar disorder F31.9 ; Posttraumatic stress disorder F43.10 and Borderline personality disorder F60.3 [facility] [address] [place] [address] 18408- 0258 Mar, Social anxiety disorder F40.10 ; Bipolar disorder F31.9 and Relationship problem with family member Z63.8 [facility] [address] [facility] [id number] [address] Mar, [facility] [address] [id number] [id number] Mar, Dental examination Z01.20 [facility] [address] [facility] [id number], [place] [address] 5018 Mar, [facility] [address] [facility] [id number], [place] [address]- 6028 Feb, Bipolar disorder F31.9 ; Posttraumatic stress disorder F43.10 and Borderline personality disorder F60.3 [facility] 120 [facility] [id number] [place] [id number] Feb, [facility] [address], [place] [address]- 4388 14 Jan, 2017 Bipolar disorder F31.9 ; Posttraumatic stress disorder F43.10 and Borderline personality disorder F60.3 [facility] [address] [id number][place] [id number] Jan, [facility] [address] [place] [id number] [address]- 1734 Jan, [facility] [address] [facility] [id number] [place] [address] Jan, [facility] [address] [id number] [address]- 7777 Dec, Bipolar disorder F31.9 ; Posttraumatic stress disorder F43.10 and Borderline personality disorder F60.3 [facility] [address] [facility] [id number], [place] [address]- 4161 Dec, [facility] [address] [facility] [id number], [place] [address]- 1584 Dec, [facility] [address] [id number] [place] [id number] Dec, [facility] [address] [id number] [place] [address] 45470- 4214 Nov, Bipolar 1 disorder F31.9 ; Posttraumatic stress disorder F43.10 and Social anxiety disorder F40.10 [place] [address] [id number] [place] [address] 36639- 1446 Nov, Bipolar disorder F31.9 ; Posttraumatic stress disorder F43.10 and Borderline personality disorder F60.3 [place] [address] [place] [id number] [place] [address] 99785- 9852 Nov, Morbid obesity, unspecified obesity type E66.01 [place] [address] [address] [id number] [place] [address] 00518- 5985 Nov, [address] [id number] Oct, Encounter for dental examination and cleaning without abnormal findings Z01.20 [place] [id number] [place] [address] 22907- 9374 Oct, Morbid obesity, unspecified obesity type E66.01 and Acute seasonal allergic rhinitis due to pollen J30.[address] 21734- 4111 Oct, Bipolar disorder F31.9 ; Posttraumatic stress disorder F43.10 and Borderline personality disorder F60.3 [place] [address] [address] [id number] [place] [address] 73008- 2169 September, Morbid obesity, unspecified obesity type E66.01 and Psoriasis L40.9 [place] [address] [address] [address] [place] [address] 59764- 4096 September, Bipolar disorder F31.9 ; Posttraumatic stress disorder F43.10 and Borderline personality disorder F60.3 [place] [address] [id number] [place] [address] 11394- 6958 September, Chronic pain G89.29 [place] [address] [address] [id number] [place] [address] 58444- 6850 Aug, Other acute nonsuppurative otitis media of right ear H65.191 and Morbid obesity, unspecified obesity type E66.01 [place] [address] [place] [address] [address] [place] [address] 31533- 1669 Aug, Bipolar 1 disorder F31.9 ; Posttraumatic stress disorder F43.10 and Social anxiety disorder F40.10 [place] [address] [address] [id number] [place] [address] 97591- 9101 Aug, Bipolar disorder F31.9 ; Posttraumatic stress disorder F43.10 and Borderline personality disorder F60.3 [place] [address] [place] [address] [place] [address] 82354- 2189 Jul, Morbid obesity due to excess calories E66.01 ; Gastro- esophageal reflux disease without esophagitis K21.9 and Chronic pain G89.29 [place] [address] [address] [address] [place] [address] 92317- 4249 Jul, Morbid obesity due to excess calories E66.01 [place] [address] [address] [id number] [place] [address] 36143- 4598 Jul, [place] [address] [place] [address] [id number] [place] [address] 70690- 2095 Jul, [place] [address] [place] [address] [id number] [place] [address] 96944- 6726 Jul, Morbid obesity due to excess calories E66.01 [place] [address] [place] [address] 43997- 0075 Jul, Bipolar disorder F31.9 ; Posttraumatic stress disorder F43.10 and Borderline personality disorder F60.3 [place] [address] [address] [id number] [place] [address] 20823- 5528 Jun, [place] [address] [place] [id number] [place] [address] 43613- 5967 15 Jun, 2016 Morbid obesity due to excess calories E66.01 [place] [address] [place] [id number] [place] [address] 84189- 3903 Jun, [facility] [address] [place] [address] 47778- 6767 09 Jun, 2016 Morbid obesity, unspecified obesity type E66.01 [facility] [address] [place] [address] 68391- 1381 03 Jun, 2016 Bipolar disorder F31.9 ; Posttraumatic stress disorder F43.10 and Borderline personality disorder F60.3 [place] [address] [place] [id number] [place] [address] 08011- 9719 Jun, [place] [address] [place] [id number] [place] [address] 20158- 2098 Jun, [place] [address] [place] [id number] [place] [address] 03096- 3754 02 Jun, 2016 Acquired hypothyroidism E03.9 and Morbid obesity due to excess calories E66.01 [place] [address] [place] [id number] [place] [address] 38033- 3345 May, Bipolar disorder F31.9 ; Posttraumatic stress disorder F43.10 and Borderline personality disorder F60.3 [place] [id number] [place] [address] 07591- 9266 Apr, Bipolar 1 disorder F31.9 ; Posttraumatic stress disorder F43.10 and Social anxiety disorder F40.[address] [place] [place] [address] [id number] [id number] Apr, Encounter for dental examination Z01.20 [facility] [address] [place] [address] 05842- 3778 Apr, [place] [address] [address] [id number] [place] [address] 77771- 4652 Apr, Acquired hypothyroidism E03.9 [place] [address] [id number] [place] [address] 92908- 9425 07 Apr, 2016 Acquired hypothyroidism E03.9 [place] [address] [id number] [place] [address] 62416- 4263 Apr, Bipolar disorder F31.9 ; Posttraumatic stress disorder F43.10 and Borderline personality disorder F60.3 [facility] [id number] [place] [address] 83898- 7354 Apr, Acquired hypothyroidism E03.9 [facility] [address] [id number] [id number] Mar, Encounter for dental examination and cleaning without abnormal findings Z01.20 [facility] [id number] [place] [address] 18989- 5884 08 Mar, 2016 [facility] [address] 86818- 9250 Mar, Bipolar disorder F31.9 ; Posttraumatic stress disorder F43.10 and Borderline personality disorder F60.3 [place] [address] 25208- 6932 Mar, Essential (primary) hypertension I10 [facility] [address] [place] [id number] [place] [address] 80880- 4653 Feb, [facility] [address] 76607- 5751 Feb, [facility] [address] [id number] [place] [address] 93274- 0853 Feb, Pelvic pain R10.2 ; Lipid screening Z13.220 ; Fatigue, unspecified type R53.83 and Weight gain R63.5 [facility] [id number] [place] [address] 04995- 9605 Feb, Bipolar disorder F31.9 ; Posttraumatic stress disorder F43.10 and Borderline personality disorder F60.3 [facility] [address] [id number] [place] [address] 51688- 8373 Feb, [facility] [address] [id number] [place] [address] 29990- 2104 Feb, [facility] [address] 77399- 2741 30 Jan, 2016 Obstructive sleep apnea syndrome G47.33 [facility] [address], [place] [address]- 2918 Jan, [facility] [place] [address] [facility] [address] [id number] [id number] 19 Jan, 2016 Dental examination Z01.20 [facility] [address] [place] [address] 12883- 6143 Jan, Bipolar 1 disorder F31.9 ; Posttraumatic stress disorder F43.10 and Social anxiety disorder F40.10 [facility] [address] [place] [address] 86573- 5631 Jan, Bipolar disorder F31.9 ; Posttraumatic stress disorder F43.10 and Borderline personality disorder F60.3 [facility] [address] [place] [address] 46959- 0333 Jan, Sciatica of left side M54.32 [facility] [address] [place] [address] 46355- 9765 Jan, [facility] [id number] [place] [address] 45959- 8110 Dec, [facility] [address] [place] [address] 41420- 4230 Dec, [facility] [address] [place] [address] 77389- 0385 Dec, Bipolar disorder F31.9 ; Posttraumatic stress disorder F43.10 and Borderline personality disorder F60.3 [facility] [address], [place] [address]- 6033 Nov, [facility] [id number] [place] [address] 05171- 5390 Nov, Insomnia, unspecified type G47.00 [facility] [address] [place] [address] 50182- 4092 Nov, Bipolar disorder F31.9 ; Posttraumatic stress disorder F43.10 and Borderline personality disorder F60.3 [facility] [address], [place] [address]- 2274 Nov, [facility] [address] [place] [address] 66357- 7347 Nov, [facility] [address] [place] [address] 20426- 7020 Oct, Bipolar disorder F31.9 ; Posttraumatic stress disorder F43.10 and Borderline personality disorder F60.3 [facility] [address] [place] [address] 68949- 3813 Oct, [facility] [id number] [place] [address] 43646- 0074 Oct, Essential (primary) hypertension I10 [facility] [address] [place] [address] 75239- 4711 September, Bipolar 1 disorder F31.9 ; Posttraumatic stress disorder F43.10 and Social anxiety disorder F40.10 [facility] [address] [place] [address] 15272- 6131 September, Bipolar disorder F31.9 ; Posttraumatic stress disorder F43.10 and Borderline personality disorder F60.[address] [id number] [address] September, Encounter for dental examination and cleaning without abnormal findings Z01.20 [facility] [address], [place] [address]- 9060 September, [facility] [address], [place] [address]- 0837 September, [facility] [address] [place] [address] 36011- 7538 Aug, [facility] [address], [place] [address]- 5756 Aug, Bipolar disorder F31.9 ; Posttraumatic stress disorder F43.10 and Borderline personality disorder F60.3 [facility] [address], [place] [address]- 0438 Aug, [facility] [id number] [place] [address] 24273- 0329 Aug, [facility] [address] [place] [address] 23498- 7054 Aug, [facility] [id number] [place] [id number] Jul, Acute nasopharyngitis [common cold] J00 and Other viral agents as the cause of diseases classified elsewhere B97.89 [facility] [id number] [place] [address] 55112- 5199 24 Jul, 2015 Chronic pain G89.29 and Allergic rhinitis J30.9 [facility] [id number] [place] [address] 21761- 7012 24 Jul, 2015 Bipolar 1 disorder F31.9 ; Posttraumatic stress disorder F43.10 and Social anxiety disorder F40.10 [facility] [address] [place] [address] 85462- 9623 16 Jul, 2015 Bipolar 1 disorder F31.9 [facility] [id number] [place] [address] 65717- 7730 16 Jul, 2015 Bipolar disorder F31.9 ; Posttraumatic stress disorder F43.10 and Borderline personality disorder F60.3 [facility] [address] [place] [address] 45166- 6349 14 Jul, 2015 [facility] [address] [place] [address] 98803- 6160 14 Jul, 2015 [facility] [id number] [place] [address] 21234- 1117 11 Jul, 2015 [facility] [address] [place] [address] 56640- 1347 10 Jul, 2015 Anxiety F41.9 [facility] [id number] [place] [address] 02838- 2189 10 Jul, 2015 Chronic pain G89.29 and Encounter for therapeutic drug level monitoring Z51.81 [facility] [id number] [place] [address] 51907- 4639 09 Jul, 2015 Chronic pain G89.29 and Encounter for therapeutic drug level monitoring Z51.81 [facility] [id number] [place] [address] 25259- 1773 08 Jul, 2015 [facility] [id number] [place] [address] 31025- 8807 Jun, [facility] [id number] [place] [address] 99396- 8225 Jun, [facility] [id number] [place] [address] 09480- 1865 Jun, [facility] [id number] [place] [address] 51235- 9759 Jun, [facility] [id number] [place] [address] [phone]- 3473 Jun, High risk medication use V58.69 [facility] [id number] [place] [address] [phone]- 0326 Jun, [facility] [id number] [place] [address] 51310- 2324 Jun, Bipolar 1 disorder F31.9 ; Overdose T50.901A and Chronic pain G89.29 [facility] [id number] [place] [address] 15906- 6598 Jun, Bipolar disorder F31.9 ; Posttraumatic stress disorder F43.10 and Borderline personality disorder F60.3 [facility] [id number] [place] [address] [phone] 08 Jun, 2015 [facility] [id number] [place] [address] 13972- 0165 Jun, [facility] [address] [address] Jun, Keloid L91.0 [facility] [id number] [place] [address] [phone]- [phone] Jun, [facility] [address] [id number] [place] [address] 81009- 3975 May, [facility] [id number] [place] [address] 02267- 5626 May, [facility] [id number] [place] [address] 69478- 2081 May, Pelvic pain R10.2 [facility] [id number] [place] [address] 46179- 6385 May, [facility] [address] [place] [address] 65501- 8607 May, Pain of left thumb M79.645 ; Incisional pain R20.8 ; Pelvic pain R10.2 and Essential hypertension I10 [facility] [address] [address] 7967 May, [facility] [address], [place] [address] May, [address] [id number] [address] May, Dental examination Z01.20 and Necrosis of pulp K04.1 [facility] [address], [place] [address]- 9235 Apr, [facility] [address] [place] [address] 21385- 5282 Apr, [facility] [address], [place] [address]- 1197 Apr, [facility] [address] [place] [address] 71892- 1722 Apr, [facility] [place] [facility] [address] [id number] [place] [address]- 8302 Apr, 2014 [facility] [place] [facility] [address] [id number] [place] [address]- 0533 Apr, [facility] [place] [facility] [address] [id number] [place] [address]- 2082 Apr, [facility] [place] [facility] [id number] [place] [address], [place] [address]- 9369 Apr, [facility] [place] [facility] [address] [id number] [place] [address]- 7293 Mar, [facility] [place] [facility] [address] [id number] [place] [address]- 9777 Mar, [facility] [place] [facility] [address] [id number] [place] [address]- 6828 Mar, [facility] [place] [facility] [address] [id number] [place] [address]- 0890 Mar, [facility] [place] [facility] [address] [id number] [place] [address]- 0524 Feb, [facility] [place] [facility] [address] [id number] [place] [address]- 8724 Feb, [facility] [place] [facility] [address] [id number] [place] [address]- 9870 Feb, [facility] [place] [facility] [address] [id number], [place] [address]- 0836 Feb, 2014 [facility] [place] [facility] [address] [id number] [place] [address]- 5980 Feb, [facility] [place] [facility] [address] [id number] [place] [address]- 9239 Feb, [facility] [place] [facility] [address] [id number] [place] [address]- 9607 16 Feb, 2015 [facility] [place] [facility] [id number] [place] [address] 78770- 5459 Feb, Dermatofibroma of left lower leg D23.72 [facility] [address] [place] [address] 37238- 9856 Feb, Hematochezia 578.1 ; Low back pain M54.5 ; High risk medication use V58.69 ; Cervicalgia M54.2 and Anxiety F41.[address] [id number] [id number] Feb, Dental examination Z01.20 ; Pulpitis K04.0 and Dental caries, unspecified K02.9 [address] [id number] [id number] Feb, Dental examination Z01.20 [facility] [id number] [place] [address] 66348- 9126 Jan, [facility] [id number] [place] [address] 86150- 8179 Jan, [facility] [id number] [place] [address] 63008- 0103 Jan, [facility] [id number] [place] [address] 82230- 2319 Jan, [facility] [id number] [place] [address] 20122- 2739 Dec, [facility] [id number] [place] [address] 52011- 8570 Dec, [facility] [address] [place] [address] 12894- 2910 Dec, [facility] [id number] [place] [address] 88159- 7527 Dec, [facility] [address] [id number], [place] [address]- 8247 Dec, [facility] [id number] [place] [address] 06337- 1201 Dec, [facility] [address] [facility] [id number], [place] [address]- 2376 Dec, [facility] [address] [id number] [address]- 6277 Dec, [facility] [address] [id number] [place] [address] Nov, Encounter for removal of sutures V58.32 [facility] [address] [id number] [address]- 9992 Nov, [facility] [place] [address] [id number], [place] [address]- 6393 Nov, [facility] [place] [address]65[address], [place] [address]- 9908 Nov, [facility] [place] [address]00565[address], [place] [address]- 3048 Nov, [facility] [address]00565100[place], [place] [address]- 2349 Nov, [facility] [address] [id number], [place] [address]- 7003 Nov, [facility] [place] [address]00565[address], [place] [address]- 9387 Nov, [facility] [address]00565[address], [place] [address]- 9827 Nov, Dermatofibroma 216.9 [facility] [address] [id number] [address]- 9363 Nov, [facility] [place] [address] [id number] [address]- 5791 Nov, [facility] [place] [address] [id number] [address]- 5475 Oct, [facility] [place] [address] [id number] [address]- 5061 Oct, Hematochezia 578.1 ; Abscess 682.9 ; GERD (gastroesophageal reflux disease) 530.81 ; Visual disturbance of one eye 368.9 and High risk medication use V58.69 [facility] [address]65[address], [place] [address]- 3345 Oct, [facility] [address]65[address]- 5438 Oct, [facility] [id number] [place] [address] [id number]- 9700 Oct, [facility] [address]65[address] 8003 September, [facility] [address] [place] [address] 838964- 2697 September, [facility] [address], [place] [address]- 5814 September, [facility] [address] [id number] 6737 September, [facility] [address], [place] [address]- 9862 September, [facility] [address] 7434 September, Colon cancer screening V76.51 [facility] [address]005[address], [place] [address]- 4506 September, [facility] [address] [address]- 6820 Aug, [facility] [address]00565[address], [place] [address]- 2685 Aug, [facility] [address]00565[address], [place] [address]- 0741 Jul, [facility] [address]00565[address], [place] [address]- 5996 Jul, [facility] [address]65[address] [place] [address]- 5896 Jul, [facility] [place] [facility] [address] [id number] [place] [address]- 9288 Jul, [facility] [place] [facility] [address] [id number] [place] [address]- 2576 Jun, [facility] [place] [facility] [address] [id number] [place] [address]- 9346 Jun, [facility] [place] [facility] [address] [id number] [place] [address]- 3415 Jun, [facility] [place] [facility] [address] [id number] [place] [address]- 1170 Jun, [facility] [place] [facility] [address] [id number] [place] [address]- 2734 Jun, [facility] [place] [facility] [address] [id number] [place] [address]- 3148 Jun, [facility] [place] [facility] [address] [id number] [place] [address]- 9956 May, [facility] [place] [facility] [address] [id number] [place] [address]- 6978 May, [facility] [place] [facility] [address] [id number] [place] [address]- 6927 May, [facility] [place] [facility] [address] [id number] [place] [address]- 4415 May, [facility] [place] [facility] [address] [id number] [place] [address]- 1359 May, [facility] [place] [facility] [address] [id number] [place] [address]- 6637 May, [facility] [place] [facility] [address] [facility] [id number] [place] [address]- 4124 May, [facility] [place] [facility] [address] [id number] [place] [address]- 8094 May, [facility] [place] [facility] [address] [id number] [place] [address]- 7094 Apr, [facility] [place] [facility] [address] [id number] [place] [address]- 3383 Apr, [facility] [place] [facility] [address] [id number] [place] [address]- 5108 Apr, [facility] [place] [facility] [address] [id number] [place] [address]- 6328 Apr, [facility] [place] [facility] [address] [id number] [place] [address]- 5540 Apr, [facility] [place] [facility] [address] [id number] [place] [address]- 8550 Apr, [facility] [place] [facility] [address] [id number] [place] [address]- 9659 Apr, [facility] [place] [facility] [address] [id number] [place] [address]- 0285 Apr, [facility] [place] [facility] [address] [id number] [place] [address]- 8908 Mar, [facility] [place] [facility] [address] [id number] [place] [address]- 7604 Mar, [facility] [place] [facility] [address] [id number], [place] [address]- 3127 Mar, [facility] [place] [facility] [address] [id number], [place] [address]- 0238 Mar, [facility] [place] [facility] [address] [id number] [place] [address]- 5822 Mar, [facility] [place] [facility] [address] [id number] [place] [address]- 8516 Mar, [facility] [place] [facility] [address] [id number] [place] [address]- 7255 Mar, [facility] [place] [facility] [address] [id number] [place] [address]- 5348 Mar, [facility] [place] [facility] [address] [id number] [place] [address]- 2877 Mar, [facility] [place] [facility] [address] [id number] [place] [address]- 5510 Mar, [facility] [place] [facility] [address] [id number] [place] [address]- 1613 Feb, [facility] [place] [facility] [address] [id number] [place] [address]- 3832 Feb, [facility] [place] [facility] [address] [id number] [place] [address]- 6719 Jan, [facility] [place] [facility] [address] [id number] [place] [address]- 9117 Jan, [facility] [place] [facility] [address] [id number] [place] [address]- 3140 Jan, [facility] [place] [facility] [address] [id number] [place] [address]- 3391 Jan, [facility] [place] [facility] [address] [id number] [place] [address]- 1926 Dec, [facility] [place] [facility] [address] [id number] [place] [address]- 8861 Dec, [facility] [place] [facility] [address] [id number] [place] [address]- 3838 Dec, [facility] [place] [facility] [address] [id number] [place] [address]- 6158 Dec, [facility] [place] [facility] [address] [id number] [place] [address]- 8126 Dec, [facility] [place] [facility] [address] [id number] [place] [address]- 5401 Dec, [facility] [place] [facility] [address] [id number] [place] [address]- 3156 Nov, [facility] [place] [facility] [address] [id number] [place] [address]- 9145 Nov, [facility] [place] [facility] [address] [id number] [place] [address]- 2227 Oct, [facility] [place] [facility] [address] [id number] [place] [address]- 8857 Oct, [facility] [place] [facility] [address] [id number] [place] [address]- 6702 Oct, [facility] [place] [facility] [address] [id number] [place] [address]- 2564 Oct, [facility] [place] [facility] [address] [id number] [place] [address]- 7202 September, [facility] [place] [facility] [address] [id number] [place] [address]- 6220 September, [facility] [place] [facility] [address] [id number] [place] [address]- 2200 September, [facility] [place] [facility] [address] [id number] [place] [address]- 1694 September, [facility] [place] [facility] [address] [id number] [place] [address]- 0136 September, [facility] [place] [facility] [address] [id number] [place] [address]- 3975 September, [facility] [place] [facility] [address] [id number] [place] [address]- 9722 September, [facility] [place] [facility] [address] [id number] [place] [address]- 4869 September, [facility] [place] [facility] [address] [id number] [place] [address]- 9836 Aug, [facility] [place] [facility] [address] [id number] [place] [address]- 6127 Aug, [facility] [place] [facility] [address] [id number], [place] [address]- 5768 Aug, [facility] [place] [facility] [address] [id number] [place] [address]- 7470 Aug, [facility] [place] [facility] [address] [id number] [place] [address]- 0597 Aug, [facility] [place] [facility] [address] [facility] [id number] [place] [address]- 2527 Aug, [facility] [place] [facility] [address] [id number] [place] [address]- 1253 Jul, [facility] [place] [facility] [address] [id number] [place] [address]- 1518 Jul, [facility] [place] [facility] [address] [facility] [id number] [place] [address]- 4796 Jul, [facility] [place] [facility] [address] [facility] [id number] [place] [address]- 5676 Jul, [facility] [place] [facility] [address] [facility] [id number] [place] [address]- 1771 Jun, [facility] [place] [facility] [address] [facility] [id number] [place] [address]- 4602 Jun, [facility] [place] [facility] [address] [facility] [id number] [place] [address]- 1943 Jun, [facility] [place] [facility] [address] [facility] [id number] [place] [address]- 3098 Jun, [facility] [place] [facility] [address] [facility] [id number], [place] [address]- 0523 Jun, [facility] [place] [facility] [address] [id number] [place] [address]- 7071 Jun, [facility] [place] [facility] [address] [facility] [id number], [place] [address]- 2960 May, [facility] [place] [facility] [address] [facility] [id number], [place] [address]- 8719 May, [facility] [place] [facility] [address] [id number] [place] [address]- 9530 May, [facility] [place] [address] [id number] [place] [address]- 9949 May, [facility] [place] [address] [id number] [place] [address]- 0497 May, [facility] [place] [address] [id number] [place] [address]- 2654 May, [facility] [place] [address] [id number] [place] [address]- 9815 May, [facility] [place] [address] [id number] [place] [address]- 2426 May, [facility] [place] [address] [id number] [place] [address]- 8450 Apr, [facility] [address] [place] [id number] Apr, [facility] [place] [address] [id number] [place] [address]- 3255 Apr, [facility] [place] [address] [id number] [place] [address]- 6718 Apr, [facility] [place] [address] [id number] [place] [address]- 7404 Apr, [facility] [place] [address] [id number] [place] [address]- 1276 Apr, [facility] [place] [address] [id number] [place] [address]- 2546 Apr, [facility] [address] [id number] [place] [address]- 4176 05 Apr, 2013 [facility] [place] [address] [id number] [place] [address]- 2546 04 Apr, 2013 [facility] [place] [address] [id number] [place] [address]- 0498 Mar, [facility] [place] [facility] [address] [id number] [place] [address]- 3453 Mar, [facility] [place] [facility] [address] [id number] [place] [address]- 6577 Mar, [facility] [place] [facility] [address] [id number] [place] [address]- 8692 Mar, [facility] [place] [facility] [address] [id number] [place] [address]- 9360 Mar, [facility] [place] [facility] [address] [id number] [place] [address]- 2912 Feb, [facility] [place] [facility] [address] [id number] [place] [address]- 1993 Feb, [facility] [place] [facility] [address] [id number] [place] [address]- 3507 Feb, [facility] [place] [facility] [address] [id number], [place] [address]- 3440 Feb, [facility] [place] [facility] [address] [id number] [place] [address]- 2340 Jan, [facility] [place] [facility] [address] [id number], [place] [address]- 6657 24 Jan, 2013 [facility] [place] [facility] [address] [id number], [place] [address]- 2995 Jan, [facility] [place] [facility] [address] [id number], [place] [address]- 2682 Dec, [facility] [place] [facility] [address] [id number], [place] [address]- 6720 Dec, [facility] [place] [facility] [address] [id number], [place] [address]- 7584 Dec, [facility] [address] [id number] [place] [id number] Nov, [facility] [address] [id number] [place] [id number] Oct, [facility] [address] [id number] [place] [address]- 3857 Oct, [facility] [place] [facility] [address] [id number] [place] [address]- 2956 September, [facility] [address] [id number] [place] [address]- 5698 September, [facility] [place] [facility] [address] [id number] [place] [address]- 0436 September, [facility] [address] [id number] [place] [address]- 3270 September, [facility] [address] [id number] [place] [address]- 6056 September, [facility] [address] [id number] [place] [address]- 8304 Jul, [facility] [place] [facility] [address] [id number] [place] [address]- 6144 Jul, [facility] [place] [facility] [address] [id number] [place] [address] Jul, [facility] [place] [facility] [address] [id number] [place] [address] Jul, [facility] [place] [facility] [address] [id number] [place] [address] Jun, [facility] [place] [facility] [address] [id number], [place] [address] Jun, [facility] [place] [facility] [address] [id number] [place] [address] Jun, [facility] [place] [facility] [address] [id number], [place] [address] Jun, [facility] [place] [facility] [address] [id number] [place] [address] May, [facility] [place] [facility] [address] [id number], [place] [address] Mar, [facility] [place] [facility] [address] [id number] [place] [address] Mar, [facility] [place] [facility] [address] [id number] [place] [address] Mar, [facility] [place] [facility] [address] [id number] [place] [address] Mar, [facility] [place] [facility] [address] [id number] [place] [address] Mar, [facility] [place] [facility] [address] [id number] [place] [address] Mar, [facility] [place] [facility] [address] [facility] [id number] [place] [address] Mar, [facility] [place] [facility] [address] [facility] [id number] [place] [address] Mar, [facility] [place] [facility] [address] [facility] [id number], [place] [address] Feb, [facility] [place] [facility] [address] [facility] [id number] [place] [address] Feb, [facility] [place] [facility] [address] [facility] [id number], [place] [address] Feb, [facility] [place] [facility] [address] [facility] [id number][place] [address] Feb, [facility] [place] [facility] [address] [facility] [id number][place] [address] Feb, [facility] [place] [facility] [address] [facility] [id number][place] [address] Feb, [facility] [place] [facility] [address] [facility] [id number][place] [id number] Feb, [facility] [address] [facility] [id number] [id number] Jan, [facility] [address] [id number] [place] [id number] Dec, [facility] [address] [id number] [place] [id number] Dec, [facility] [place] [facility] [address] [id number] [place] [address] Nov, [facility] [address] [id number] [place] [address] Nov, [facility] [place] [facility] [address] [id number] [place] [address] Oct, [facility] [place] [facility] [address] [id number] [place] [address] Jul, [facility] [place] [facility] [address] [id number] [place] [address] Jul, [facility] [place] [facility] [address] [id number] [place] [address] May, [facility] [place] [facility] [address] [id number] [place] [address] May, [facility] [place] [facility] [address] [id number] [place] [address] Nov, [facility] [place] [facility] [address] [facility] [id number] [place] [address] Mar, [facility] [place] [facility] [address] [id number] [place] [address] Dec, [facility] [place] [facility] [address] [id number], [place] [address] Nov, [facility] [place] [facility] [address] [id number] [place] [address] Aug, [facility] [place] [facility] [address] [id number] [place] [address] Apr, [facility] [place] [facility] [address] [id number], [place] [address] Apr, [facility] [address] [facility] [id number], [place] [address] Mar, [facility] [address] [id number], [place] [address] Feb, [facility] [address] [id number], [place] [address] September, [facility] [address] [id number], [place] [address] Jun, [facility] [address] [facility] [id number], [place] [address] Mar, IMMUNIZATIONS No Known Immunizations SOCIAL HISTORY Never Assessed REASON FOR VISIT Lab results PLAN OF CARE VITAL SIGNS MEDICATIONS Unknown [...] hernia Hospitalization History Went by ambulance to [place] as unresponsive 05/2015 Hospitalization History [place] sent her to [facility] for a psych hold 05/2015
--- OUTSIDE RECORDS SUMMARY | 2018-03-15 10:54 | XMS REPORT ---
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 Name Role Phone HERBERT MCGOWAN Unavailable PROBLEMS Type Condition ICD9-CM Code ZPT43-AI Code Onset Dates Condition Status SNOMED Code Problem Psoriasis L40.9 Active 6715143 Problem Relationship problem with family member Z63.8 Active 968949655 Problem Essential hypertension I10 Active 17173056 Problem Anxiety F41.9 Active 96841741 Problem Visual disturbance H53.9 Active 19862118 Problem Rheumatoid arthritis involving multiple sites with positive rheumatoid factor M05.79 Active 209794548 Problem Bilateral low back pain with sciatica, sciatica laterality unspecified M54.40 Active 007810818 Problem Hypokalemia E87.6 Active 45241816 Problem Lumbago with sciatica, left side M54.42 Active 623152272 Problem Other chronic pain G89.29 Active 40004818 Problem 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 Active 073294499 Problem Blindness of right eye H54.40 Active 904094497 Problem Posttraumatic stress disorder F43.10 Active 97712318 Problem Overdose T50.901A Active 42903171 Problem Bipolar disorder F31.9 Active 96560433 Problem Borderline personality disorder F60.3 Active 90647945 Problem Obstructive sleep apnea G47.33 Active 57496498 Problem Acquired hypothyroidism E03.9 Active 093755023 Problem Pelvic pain R10.2 Active 08843386 Problem Chronic pain G89.29 Active 99146553 Problem Gastro-esophageal reflux disease without esophagitis K21.9 Active 589735833 Problem Anemia due to other cause, not classified D64.89 Active 825463047 Problem Social anxiety disorder F40.10 Active 40388685 Problem Morbid obesity, unspecified obesity type E66.01 Active 012468223 ALLERGIES No Information ENCOUNTERS Encounter Location Date Diagnosis [facility] [address], [place] [address] Feb, [place] [id number] [place] [address] 15765- 0212 Dec, [place] [address], [place] [address] Dec, [address] [id number] [id number] Dec, Dental examination Z01.20 [place] [address] [place] [id number] [place] [address] 56012- 6596 Nov, Bipolar disorder F31.9 ; Posttraumatic stress disorder F43.10 and Borderline personality disorder F60.3 [place] [address] [place] [address] 86904- 0664 Nov, Rheumatoid arthritis involving multiple sites with positive rheumatoid factor M05.79 ; Dysuria R30.0 and Blindness of right eye H54.40 [place] [address] [place] [address] 37526- 0011 Nov, Bipolar disorder F31.9 ; Posttraumatic stress disorder F43.10 ; Social anxiety disorder F40.10 and Relationship problem with family member Z63.8 [place] [address] [address] Nov, [place] [id number] [place] [address] 77790- 4912 Nov, [place] [address] [place] [address] [id number] [place] [address] 88738- 5374 Nov, 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 ; Adverse effect of antineoplastic and immunosuppressive drugs, initial encounter T45.1X5A ; Anemia , unspecified D64.9 and BMI 40.0-44.9, adult Z68.41 [place] [address] [place] [address] 04057- 5631 Nov, Anemia due to other cause, not classified D64.89 [place] [address] [place] [address] [id number] [place] [address] 37582- 6075 Oct, Adverse effect of drug, initial encounter T50.905A and Acute anemia D64.9 [facility] [id number] [place] [address] 18185- 1133 Oct, Anemia due to other cause, not classified D64.89 ; Dysuria R30.0 and Urinary tract infection without hematuria, site unspecified N39.0 [facility] [id number] [place] [address] 06302- 8097 Oct, [facility] [id number] [place] [address] 67700- 2148 Oct, [facility] [address] [address] [id number] [place] [address] 46250- 4642 Oct, 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 [facility] [id number] [place] [address] [id number] Oct, [facility] [address] [id number] [place] [address] 72636- 7466 Oct, [facility] [id number] [place] [address] 64860- 0580 Oct, [facility] [id number] [place] [address] 82760- 5880 Oct, Bipolar disorder F31.9 ; Posttraumatic stress disorder F43.10 and Borderline personality disorder F60.3 [facility] [id number] [place] [address] 62192- 8549 Oct, Rheumatoid arthritis involving multiple sites with positive rheumatoid factor M05.79 ; 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 and Anxiety F41.9 [facility] [id number] [place] [address] 42492- 4712 Oct, [facility] [address] [id number] [place] [address] 06758- 3880 September, 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 [facility] [address] [place] [address] [place] [address] 4775 September, Bipolar disorder F31.9 ; Posttraumatic stress disorder F43.10 and Borderline personality disorder F60.3 [place] [address] [place] [id number] [place] [address] 96667- 2557 Aug, BMI 40.0-44.9, adult Z68.41 ; Bipolar disorder F31.9 ; Posttraumatic stress disorder F43.10 and Social anxiety disorder F40.10 [place] [address] 70030- 7009 Aug, Bipolar disorder F31.9 ; Posttraumatic stress disorder F43.10 and Borderline personality disorder F60.3 [place] [address] 05543- 5835 Aug, 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 [place] [address] 74375- 5234 Jul, Bipolar disorder F31.9 ; Posttraumatic stress disorder F43.10 and Borderline personality disorder F60.3 [place] [address] 07316- 3124 Jul, [place] [address] 75289- 1684 Jun, Bipolar disorder F31.9 ; Posttraumatic stress disorder F43.10 and Borderline personality disorder F60.3 [place] [address] [place] [id number] [place] [address] 65095- 7390 Jun, Blindness of right eye H54.40 and Acquired hypothyroidism E03.9 [place] [address] [place] [id number] [place] [address] 49419- 9415 Jun, [place] [address] [place] [id number] [place] [address] May, Posttraumatic stress disorder F43.10 ; Social anxiety disorder F40.10 and Bipolar disorder F31.9 [place] [address] [place] [id number]- 2546 May, Bipolar disorder F31.9 ; Posttraumatic stress disorder F43.10 and Borderline personality disorder F60.3 [facility] [address], [place] [address] 6758 May, [facility] [address], [place] [address] 8853 May, [facility] [id number] [place] [address] 28874- 5120 Apr, Bipolar disorder F31.9 ; Posttraumatic stress disorder F43.10 and Borderline personality disorder F60.3 [address] [id number] Apr, [facility] [id number] [place] [address] 68619- 3854 Apr, [facility] [id number] [place] [address] 05275- 6419 Mar, Hydradenitis L73.2 [facility] [address] [place] [address] 01916- 3295 15 Mar, 2017 Lumbago with sciatica, left side M54.42 ; Other chronic pain G89.29 ; Morbid obesity, unspecified obesity type E66.01 ; Hydradenitis L73.2 and BMI 40.0-44.9, adult Z68.41 [facility] [id number] [place] [address] 02089- 7949 Mar, Bipolar disorder F31.9 ; Posttraumatic stress disorder F43.10 and Borderline personality disorder F60.3 [facility] [address], [place] [address]- 0690 Mar, Social anxiety disorder F40.10 ; Bipolar disorder F31.9 and Relationship problem with family member Z63.8 [facility] [address], [place] [address] 9281 Mar, [address] [id number] [id number] Mar, Dental examination Z01.20 [facility] [address], [place] [address] 9787 Mar, [facility] [id number] [place] [address] 58316- 0705 Feb, Bipolar disorder F31.9 ; Posttraumatic stress disorder F43.10 and Borderline personality disorder F60.3 [facility] [address] [id number] Feb, [facility] [id number] [place] [address] 01583- 3134 14 Jan, 2017 Bipolar disorder F31.9 ; Posttraumatic stress disorder F43.10 and Borderline personality disorder F60.[address] [place] [address] [id number] [id number] Jan, [facility] [id number] [place] [address] 23616- 7592 Jan, [facility] [address] [id number] Jan, [facility] [id number] [place] [address] 76135- 6604 Dec, Bipolar disorder F31.9 ; Posttraumatic stress disorder F43.10 and Borderline personality disorder F60.3 [facility] [id number] [place] [address] 28042- 8970 Dec, [facility] [id number] [place] [address] 24247- 8023 Dec, [facility] [address] [id number] [id number] Dec, [facility] [id number] [place] [address] 65247- 4235 Nov, Bipolar 1 disorder F31.9 ; Posttraumatic stress disorder F43.10 and Social anxiety disorder F40.10 [facility] [address] [place] [address] 09638- 0279 Nov, Bipolar disorder F31.9 ; Posttraumatic stress disorder F43.10 and Borderline personality disorder F60.3 [place] [address] [place] [address] 49888- 2644 Nov, Morbid obesity, unspecified obesity type E66.01 [place] [address] [place] [address] 65142- 4666 Nov, [address] [id number][place] [id number] Oct, Encounter for dental examination and cleaning without abnormal findings Z01.20 [place] [address] [place] [id number] [place] [address] 05391- 5094 Oct, Morbid obesity, unspecified obesity type E66.01 and Acute seasonal allergic rhinitis due to pollen J30.1 [place] [address] [place] [id number] [place] [address] 31141- 4940 Oct, Bipolar disorder F31.9 ; Posttraumatic stress disorder F43.10 and Borderline personality disorder F60.3 [place] [address] [place] [address] 76066- 4592 September, Morbid obesity, unspecified obesity type E66.01 and Psoriasis L40.9 [place] [address] [place] [address] 64462- 6232 September, Bipolar disorder F31.9 ; Posttraumatic stress disorder F43.10 and Borderline personality disorder F60.3 [place] [address] [place] [address] 33802- 0567 September, Chronic pain G89.29 [place] [address] [place] [id number] [place] [address] 21994- 0965 Aug, Other acute nonsuppurative otitis media of right ear H65.191 and Morbid obesity, unspecified obesity type E66.01 [place] [address] [place] [address] 03902- 7034 Aug, Bipolar 1 disorder F31.9 ; Posttraumatic stress disorder F43.10 and Social anxiety disorder F40.10 [facility] [address] [place] [address] [id number] [place] [address] 48517- 9512 Aug, Bipolar disorder F31.9 ; Posttraumatic stress disorder F43.10 and Borderline personality disorder F60.3 [facility] [address] [place] [address] [id number] [place] [address] 60160- 1285 Jul, Morbid obesity due to excess calories E66.01 ; Gastro- esophageal reflux disease without esophagitis K21.9 and Chronic pain G89.29 [facility] [address] [place] [address] [id number] [place] [address] 00055- 5024 Jul, Morbid obesity due to excess calories E66.01 [facility] [address] [place] [id number] [place] [address] 74611- 3374 Jul, [place] [address] [place] [address] [id number] [place] [address] 49826- 3803 Jul, [facility] [address] [place] [address] [id number] [place] [address] 01723- 8371 Jul, Morbid obesity due to excess calories E66.01 [facility] [address] [place] [address] [id number] [place] [address] 88092- 7033 Jul, Bipolar disorder F31.9 ; Posttraumatic stress disorder F43.10 and Borderline personality disorder F60.3 [facility] [address] [place] [address] [id number] [place] [address] 62484- 2854 Jun, [facility] [address] [place] [address] [id number] [place] [address] 76476- 2262 Jun, Morbid obesity due to excess calories E66.01 [facility] [address] [place] [id number] [place] [address] 87911- 6977 Jun, [facility] [address] [place] [address] [id number] [place] [address] 64305- 6682 Jun, Morbid obesity, unspecified obesity type E66.01 [facility] [address] [place] [address]- 4392 Jun, Bipolar disorder F31.9 ; Posttraumatic stress disorder F43.10 and Borderline personality disorder F60.3 [facility] [id number] [place] [address] 43329- 7702 Jun, [facility] [address] [place] [address] [id number] [place] [address] 26423- 7221 Jun, [facility] [address] [place] [id number] [place] [address] 31068- 9379 Jun, Acquired hypothyroidism E03.9 and Morbid obesity due to excess calories E66.01 [facility] [address] [place] [id number] [place] [address] 92110- 2378 May, Bipolar disorder F31.9 ; Posttraumatic stress disorder F43.10 and Borderline personality disorder F60.3 [place] [address] [place] [address] [id number] [place] [address] 00756- 2566 Apr, Bipolar 1 disorder F31.9 ; Posttraumatic stress disorder F43.10 and Social anxiety disorder F40.[address] [place] [place] [address] [id number] [id number] Apr, Encounter for dental examination Z01.20 [facility] [address] [place] [address] 95755- 8602 Apr, [facility] [address] [place] [id number] [place] [address] 89942- 7028 Apr, Acquired hypothyroidism E03.9 [facility] [address] [id number] [place] [address] 18115- 8938 Apr, Acquired hypothyroidism E03.9 [facility] [address] [place] [id number] [place] [address] 98673- 5436 Apr, Bipolar disorder F31.9 ; Posttraumatic stress disorder F43.10 and Borderline personality disorder F60.3 [facility] [id number] [place] [address] 09871- 1705 Apr, Acquired hypothyroidism E03.9 [facility] [address] [id number] [id number] Mar, Encounter for dental examination and cleaning without abnormal findings Z01.20 [facility] [address], [place] [address]- 2071 08 Mar, 2016 [facility] [address] [place] [id number] [place] [address] 70786- 5098 Mar, Bipolar disorder F31.9 ; Posttraumatic stress disorder F43.10 and Borderline personality disorder F60.3 [place] [address] [place] [id number] [place] [address] 94824- 1858 Mar, Essential (primary) hypertension I10 [place] [address] [place] [id number] [place] [address] 41767- 0880 Feb, [place] [address] [place] [address] [id number] [place] [address] 46091- 0694 Feb, [facility] [address] [place] [id number] [place] [address] 11544- 0035 Feb, Pelvic pain R10.2 ; Lipid screening Z13.220 ; Fatigue, unspecified type R53.83 and Weight gain R63.5 [place] [address], [place] [address]- 8764 Feb, Bipolar disorder F31.9 ; Posttraumatic stress disorder F43.10 and Borderline personality disorder F60.3 [place] [address] [place] [address] 50072- 3485 Feb, [facility] [address] [place] [address] 42361- 5874 Feb, [place] [address] [place] [id number] [place] [address] 28688- 6586 30 Jan, 2016 Obstructive sleep apnea syndrome G47.33 [facility] [address], [place] [address]- 2718 Jan, [facility] [address] [id number] [id number] Jan, Dental examination Z01.20 [facility] [address] [place] [address] 90982- 8417 Jan, Bipolar 1 disorder F31.9 ; Posttraumatic stress disorder F43.10 and Social anxiety disorder F40.10 [facility] [address], [place] [address]- 2085 Jan, Bipolar disorder F31.9 ; Posttraumatic stress disorder F43.10 and Borderline personality disorder F60.3 [facility] [address] [place] [address] 84640- 2146 Jan, Sciatica of left side M54.32 [facility] [address], [place] [address]- 9903 Jan, [facility] [id number] [place] [address] 65096- 4860 Dec, [facility] [address], [place] [address]- 5739 Dec, [facility] [id number] [place] [address] 81326- 8312 Dec, Bipolar disorder F31.9 ; Posttraumatic stress disorder F43.10 and Borderline personality disorder F60.3 [facility] [address], [place] [address]- 3452 Nov, [facility] [address], [place] [address]- 1448 Nov, Insomnia, unspecified type G47.00 [facility] [address] [place] [address] 40593- 6091 Nov, Bipolar disorder F31.9 ; Posttraumatic stress disorder F43.10 and Borderline personality disorder F60.3 [facility] [address], [place] [address]- 9578 Nov, [facility] [id number], [place] [address]- 4645 Nov, [facility] [id number] [place] [address] 69111- 8002 Oct, Bipolar disorder F31.9 ; Posttraumatic stress disorder F43.10 and Borderline personality disorder F60.3 [facility] [id number] [place] [address] 96739- 0023 Oct, [facility] [id number] [place] [address] 53661- 8532 Oct, Essential (primary) hypertension I10 [facility] [id number] [place] [address] 67984- 3026 September, Bipolar 1 disorder F31.9 ; Posttraumatic stress disorder F43.10 and Social anxiety disorder F40.10 [facility] [id number] [place] [address] 76253- 4920 September, Bipolar disorder F31.9 ; Posttraumatic stress disorder F43.10 and Borderline personality disorder F60.[address] [id number] [id number] September, Encounter for dental examination and cleaning without abnormal findings Z01.20 [facility] [id number] [place] [address] 50115- 2329 September, [facility] [id number] [place] [address] 93778- 2307 September, [facility] [id number] [place] [address] 18969- 3660 Aug, [facility] [id number] [place] [address] 97359- 0545 Aug, Bipolar disorder F31.9 ; Posttraumatic stress disorder F43.10 and Borderline personality disorder F60.3 [facility] [id number] [place] [address] 43604- 3203 Aug, [facility] [id number] [place] [address] 76027- 0263 Aug, [facility] [id number], [place] [address]- 3363 Aug, [facility] [id number] [id number] Jul, Acute nasopharyngitis [common cold] J00 and Other viral agents as the cause of diseases classified elsewhere B97.89 [facility] [id number] [place] [address] 07444- 6677 24 Jul, 2015 Chronic pain G89.29 and Allergic rhinitis J30.9 [facility] [address] [place] [address] 20504- 4502 24 Jul, 2015 Bipolar 1 disorder F31.9 ; Posttraumatic stress disorder F43.10 and Social anxiety disorder F40.10 [place] [id number] [place] [address] 88582- 1754 16 Jul, 2015 Bipolar 1 disorder F31.9 [facility] [address] [place] [address] 42154- 2285 16 Jul, 2015 Bipolar disorder F31.9 ; Posttraumatic stress disorder F43.10 and Borderline personality disorder F60.3 [place] [id number] [place] [address] 03706- 5432 14 Jul, 2015 [place] [address] [place] [address] 41605- 9078 14 Jul, 2015 [place] [id number] [place] [address] 26166- 9480 11 Jul, 2015 [facility] [id number] [place] [address] 61518- 1551 10 Jul, 2015 Anxiety F41.9 [place] [id number] [place] [address] [phone]- [phone] 10 Jul, 2015 Chronic pain G89.29 and Encounter for therapeutic drug level monitoring Z51.81 [facility] [address] [place] [id number] [place] [address] [phone] Jul, Chronic pain G89.29 and Encounter for therapeutic drug level monitoring Z51.81 [facility] [id number] [place] [address] [phone] Jul, [facility] [id number] [place] [address] [phone] Jun, [facility] [id number] [place] [address] [phone] Jun, [facility] [id number] [place] [address] [id number] Jun, [facility] [id number] [place] [address] [phone]- [phone] Jun, [facility] [id number] [place] [address] [phone] Jun, High risk medication use V58.69 [facility] [id number] [place] [address] 55529- [phone] Jun, [facility] [id number] [place] [address] [phone]- [phone] Jun, Bipolar 1 disorder F31.9 ; Overdose T50.901A and Chronic pain G89.29 [facility] [id number] [place] [address] 64962- [phone] Jun, Bipolar disorder F31.9 ; Posttraumatic stress disorder F43.10 and Borderline personality disorder F60.3 [facility] [id number] [place] [address] 76023- 1544 Jun, [facility] [id number] [place] [address] 18661- 9360 Jun, [facility] [id number] [place] [address] 27204- 5729 Jun, Keloid L91.0 [facility] [id number] [place] [address] 42323- 7848 Jun, [facility] [id number], [place] [address] 8700 May, [facility] [id number] [place] [address] 87942- 1301 May, [facility] [id number], [place] [address] 9873 May, Pelvic pain R10.2 [facility] [id number] [place] [address] 53411- 8572 May, [facility] [id number] [place] [address] 85749- 5666 May, Pain of left thumb M79.645 ; Incisional pain R20.8 ; Pelvic pain R10.2 and Essential hypertension I10 [facility] [id number], [place] [address] 1286 May, [facility] [id number], [place] [address] 6332 May, [address] [id number] [id number] May, Dental examination Z01.20 and Necrosis of pulp K04.1 [facility] [id number], [place] [address] 6267 Apr, [facility] [id number], [place] [address] 5777 Apr, [facility] [id number], [place] [address]- 6215 Apr, [facility] [id number] [place] [address] 30065- 5034 Apr, [facility] [id number], [place] [address]- 6834 Apr, [facility] [id number], [place] [address]- 5224 Apr, [facility] [address] [id number], [place] [address] 1467 Apr, [facility] [address] [address] [facility] [id number] [address] 7422 Apr, [facility] [address] [facility] [id number], [place] [address]- 3691 Mar, [facility] [address] [facility] [id number] [place] [address], [place] [address]- 6256 Mar, [facility] [address] [id number] [place] [address]- 3570 Mar, [facility] [address] [facility] [id number] [place] [address], [place] [address]- 1327 Mar, [facility] [address] [facility] [id number] [place] [address]- 6410 Feb, [facility] [address] [facility] [id number] [place] [address] 40696- 4100 Feb, [facility] [address] [facility] [id number] 6239 Feb, [facility] [address] [id number], [place] [address]- 2550 Feb, [facility] [address] [facility] [id number], [place] [address]- 6854 Feb, [facility] [address] [facility] [id number], [place] [address]- 7818 Feb, [facility] [address] [facility] [id number], [place] [address]- 2738 Feb, [facility] [address] [id number], [place] [address] 1916 Feb, Dermatofibroma of left lower leg D23.72 [facility] [address] [facility] [id number], [place] [address]- 6977 Feb, Hematochezia 578.1 ; Low back pain M54.5 ; High risk medication use V58.69 ; Cervicalgia M54.2 and Anxiety F41.9 [facility] [address] [facility] [id number] [id number] Feb, Dental examination Z01.20 ; Pulpitis K04.0 and Dental caries, unspecified K02.9 [facility] [address] [facility] [address] [id number] [id number] Feb, Dental examination Z01.20 [facility] [id number] [place] [address] 83817- 2361 30 Jan, 2015 [facility] [id number] [place] [address] 61441- 7994 Jan, [facility] [id number] [place] [address] 30317- 1505 Jan, [facility] [id number] [place] [address] 15717- 7946 Jan, [facility] [id number] [place] [address] 40809- 3575 Dec, [facility] [id number] [place] [address] 04498- 9544 Dec, [facility] [id number] [place] [address] 54400- 6244 Dec, [facility] [id number] [place] [address] 74732- 9717 Dec, [facility] [address] [id number], [place] [address]- 3018 Dec, [facility] [id number] [place] [address] 22528- 6082 Dec, [facility] [address] [id number], [place] [address]- 1925 Dec, [facility] [id number] [place] [address] 10629- 9121 Dec, [facility] [address] [id number] [id number] Nov, Encounter for removal of sutures V58.32 [facility] [id number], [place] [address]- 9555 Nov, [facility] [address] [id number], [place] [address]- 7972 Nov, [facility] [id number], [place] [address]- 6274 Nov, [facility] [id number], [place] [address]- 4803 Nov, [facility] [id number], [place] [address]- 5791 Nov, [facility] [id number], [place] [address]- 6692 Nov, [facility] [id number], [place] [address]- 1721 Nov, [facility] [id number], [place] [address]- 8811 Nov, Dermatofibroma 216.9 [facility] [id number], [place] [address]- 8925 Nov, [facility] [address] [id number], [place] [address]- 7800 Nov, [facility] [address] [id number], [place] [address]- 7118 Oct, [facility] [address] [id number], [place] [address]- 9838 Oct, Hematochezia 578.1 ; Abscess 682.9 ; GERD (gastroesophageal reflux disease) 530.81 ; Visual disturbance of one eye 368.9 and High risk medication use V58.69 [facility] [id number], [place] [address]- 6544 Oct, [facility] [address] [id number] [place] [address]- 5106 Oct, [facility] [address] [id number] [place] 9916 Oct, [facility] [address] [id number] [place] [address]- 8872 September, [facility] [address] [id number] [place] [address]- 0912 September, [facility] [address] [id number] [place] 2082 September, [facility] [address] [id number] [place] [address]- 6943 September, [facility] [address] [id number] [place] [address]- 0061 September, [facility] [address] [facility] [id number] [place] [address]- 0049 September, Colon cancer screening V76.51 [facility] [address] [id number] [place] 8160 September, [facility] [address] [id number] [place] [address]- 1765 Aug, [facility] [address] [id number] [place] [address]- 0189 Aug, [facility] [place] [facility] [address] [id number] [place] [address]- 7173 Jul, [facility] [place] [facility] [address] [id number] [place] 5689 Jul, [facility] [place] [facility] [address] [id number] [place] [address]- 2469 Jul, [facility] [place] [facility] [address] [id number] [place] [address]- 8987 Jul, [facility] [place] [facility] [address] [id number] [place] [address]- 7405 Jun, [facility] [place] [facility] [address] [id number] [place] [address]- 6456 Jun, [facility] [place] [facility] [address] [id number] [place] [address]- 1956 Jun, [facility] [place] [facility] [address] [id number] [place] [address]- 2436 Jun, [facility] [place] [facility] [address] [id number] [place] [address]- 8056 Jun, [facility] [place] [facility] [address] [id number] [place] [address]- 3017 Jun, [facility] [place] [facility] [address] [id number] [place] [address]- 2335 May, [facility] [place] [facility] [address] [id number] [place] [address]- 4412 May, [facility] [place] [facility] [address] [id number] [place] [address]- 0202 May, [facility] [place] [facility] [address] [id number] [place] [address]- 7108 May, [facility] [place] [facility] [address] [facility] [id number] [place] [address]- 6502 May, [facility] [place] [facility] [address] [id number] [place] [address]- 3034 May, [facility] [place] [facility] [address] [id number] [place] [address]- 8874 May, [facility] [place] [facility] [address] [id number] [place] [address]- 3180 May, [facility] [place] [facility] [address] [id number] [place] [address]- 8215 Apr, [facility] [place] [facility] [address] [id number] [place] [address]- 4220 Apr, [facility] [place] [facility] [address] [id number] [place] [address]- 5055 Apr, [facility] [place] [facility] [address] [id number] [place] [address]- 5503 Apr, [facility] [place] [facility] [address] [id number] [place] [address]- 7629 Apr, [facility] [place] [facility] [address] [id number] [place] [address]- 0647 Apr, [facility] [place] [facility] [address] [id number] [place] [address]- 6440 Apr, [facility] [place] [facility] [address] [id number] [place] [address]- 6740 Apr, [facility] [place] [facility] [address] [id number] [place] [address]- 0528 Mar, [facility] [place] [facility] [address] [id number] [place] [address]- 9634 Mar, [facility] [place] [facility] [address] [id number] [place] [address]- 0415 Mar, [facility] [place] [facility] [address] [id number] [place] [address]- 4306 Mar, [facility] [place] [facility] [address] [id number], [place] [address]- 5119 Mar, [facility] [place] [facility] [address] [id number], [place] [address]- 8020 Mar, [facility] [place] [facility] [address] [id number] [place] [address]- 7956 Mar, [facility] [place] [facility] [address] [id number], [place] [address]- 6474 Mar, [facility] [place] [facility] [address] [id number], [place] [address]- 8122 Mar, [facility] [place] [facility] [address] [id number] [place] [address]- 1413 Mar, [facility] [place] [facility] [address] [id number] [place] [address]- 5745 Feb, [facility] [place] [facility] [address] [id number] [place] [address]- 2223 Feb, [facility] [place] [facility] [address] [id number] [place] [address]- 6497 Jan, [facility] [place] [facility] [address] [id number] [place] [address]- 3420 Jan, [facility] [place] [facility] [address] [id number] [place] [address]- 2077 Jan, [facility] [place] [facility] [address] [id number] [place] [address]- 6822 Jan, [facility] [place] [facility] [address] [id number] [place] [address]- 9673 Dec, [facility] [place] [facility] [address] [id number] [place] [address]- 9352 Dec, [facility] [place] [facility] [address] [id number] [place] [address]- 0515 Dec, [facility] [place] [facility] [address] [id number] [place] [address]- 2992 Dec, [facility] [place] [facility] [address] [id number] [place] [address]- 0657 Dec, [facility] [place] [facility] [address] [id number] [place] [address]- 0556 Dec, [facility] [place] [facility] [address] [id number] [place] [address]- 5082 Nov, [facility] [place] [facility] [address] [id number] [place] [address]- 2310 Nov, [facility] [place] [facility] [address] [id number] [place] [address]- 7125 Oct, [facility] [place] [facility] [address] [id number] [place] [address]- 7750 Oct, [facility] [place] [facility] [address] [id number] [place] [address]- 8817 Oct, [facility] [place] [facility] [address] [id number] [place] [address]- 9054 Oct, [facility] [place] [facility] [address] [id number] [place] [address]- 7542 September, [facility] [place] [facility] [address] [id number] [place] [address]- 0999 September, [facility] [place] [facility] [address] [id number] [place] [address]- 3993 September, [facility] [place] [facility] [address] [id number] [place] [address]- 1323 September, [facility] [place] [facility] [address] [id number] [place] [address]- 3279 September, [facility] [place] [facility] [address] [id number] [place] [address]- 8843 September, [facility] [place] [facility] [address] [id number] [place] [address]- 5860 September, [facility] [place] [facility] [address] [id number] [place] [address]- 7953 September, [facility] [place] [facility] [address] [id number] [place] [address]- 1118 Aug, [facility] [place] [facility] [address] [id number] [place] [address]- 4571 Aug, [facility] [place] [facility] [address] [id number] [place] [address]- 9764 Aug, [facility] [place] [facility] [address] [id number] [place] [address]- 7675 Aug, [facility] [place] [facility] [address] [id number], [place] [address]- 4882 Aug, [facility] [place] [facility] [address] [id number] [place] [address]- 5458 Aug, [facility] [place] [facility] [address] [id number] [place] [address]- 3436 Jul, [facility] [place] [facility] [address] [facility] [id number] [place] [address]- 6719 Jul, [facility] [place] [facility] [address] [id number] [place] [address]- 7162 Jul, [facility] [place] [facility] [address] [id number] [place] [address]- 8995 Jul, [facility] [place] [facility] [address] [id number] [place] [address]- 7745 Jun, [facility] [place] [facility] [address] [facility] [id number] [place] [address]- 8897 Jun, [facility] [place] [facility] [address] [id number] [place] [address]- 9284 Jun, [facility] [place] [facility] [address] [facility] [id number] [place] [address]- 4041 Jun, [facility] [place] [facility] [address] [facility] [id number] [place] [address]- 0103 Jun, [facility] [place] [facility] [address] [facility] [id number] [place] [address]- 3840 Jun, [facility] [place] [facility] [address] [id number], [place] [address]- 5545 May, [facility] [place] [facility] [address] [id number] [place] [address]- 0808 May, [facility] [place] [facility] [address] [id number], [place] [address]- 3137 May, [facility] [place] [facility] [address] [id number], [place] [address]- 3938 May, [facility] [place] [facility] [address] [id number] [place] [address]- 0756 May, [facility] [address] [id number] [place] [address]- 6706 May, [facility] [address] [id number] [place] [address]- 2546 May, [facility] [address] [id number] [place] [address]- 2546 May, [facility] [address] [id number] [place] [address]- 5773 Apr, [facility] [id number] Apr, [facility] [address] [id number] [place] [address]- 9296 Apr, [facility] [address] [id number] [place] [address]- 0076 Apr, [facility] [address] [id number] [place] [address]- 9154 Apr, [facility] [address] [id number] [place] [address]- 6389 Apr, [facility] [address] [id number] [place] [address]- 1736 05 Apr, 2013 [facility] [address] [id number] [place] [address]- 2546 05 Apr, 2013 [facility] [address] [id number] [place] [address]- 2546 04 Apr, 2013 [facility] [address] [id number] [place] [address]- 2546 Mar, [facility] [address] [id number] [place] [address]- 2546 Mar, [facility] [address] [id number] [place] [address]- 9226 Mar, [facility] [place] [facility] [address] [id number] [place] [address]- 4238 Mar, [facility] [place] [facility] [address] [id number] [place] [address]- 1700 Mar, [facility] [place] [facility] [address] [id number] [place] 5467 Feb, [facility] [place] [facility] [address] [id number] [place] [address]- 5913 Feb, [facility] [place] [facility] [address] [id number] [place] [address]- 0246 Feb, [facility] [place] [facility] [address] [id number] [place] [address]- 8105 Feb, [facility] [place] [facility] [address] [id number] [place] [address]- 9569 Jan, [facility] [place] [facility] [address] [id number] [place] [address]- 7425 Jan, [facility] [place] [facility] [address] [id number] [place] [address] Jan, [facility] [place] [facility] [address] [id number], [place] [address] Dec, [facility] [place] [facility] [address] [id number], [place] [address] Dec, [facility] [place] [facility] [address] [id number], [place] [address] Dec, [facility] [address] [id number] [place] [id number] Nov, [facility] [address] [id number] [place] [id number] Oct, [facility] [place] [facility] [address] [id number] [place] [address] Oct, [facility] [place] [facility] [address] [id number], [place] [address] September, [facility] [address] [id number] [place] [address] September, [facility] [place] [facility] [address] [id number] [place] [address] September, [facility] [address] [id number] [place] [address] September, [facility] [place] [facility] [address] [id number] [place] [address] September, [facility] [address] [id number] [place] [address] Jul, [facility] [place] [facility] [address] [id number] [place] [address] Jul, [facility] [address] [id number] [place] [address] Jul, [facility] [place] [facility] [address] [id number] [place] [address] Jul, [facility] [place] [facility] [address] [id number] [place] [address] Jun, [facility] [place] [facility] [address] [id number] [place] [address] Jun, [facility] [place] [facility] [address] [id number] [place] [address] Jun, [facility] [place] [facility] [address] [id number], [place] [address] Jun, [facility] [place] [facility] [address] [id number] [place] [address] May, [facility] [place] [facility] [address] [id number] [place] [address] Mar, [facility] [place] [facility] [address] [id number] [place] [address] Mar, [facility] [place] [facility] [address] [id number], [place] [address] Mar, [facility] [place] [facility] [address] [id number], [place] [address] Mar, [facility] [place] [facility] [address] [id number], [place] [address] Mar, [facility] [place] [facility] [address] [id number], [place] [address] Mar, [facility] [place] [facility] [address] [id number] [place] [address] Mar, [facility] [place] [facility] [address] [facility] [address] [facility] [id number] [place] [address] Mar, [facility] [place] [facility] [address] [facility] [id number] [place] [address] Feb, [facility] [place] [facility] [address] [facility] [id number], [place] [address] Feb, [facility] [place] [facility] [address] [facility] [id number], [place] [address] Feb, [facility] [place] [facility] [address] [facility] [id number], [place] [address] Feb, [facility] [place] [facility] [address] [facility] [id number], [place] [address] Feb, [facility] [place] [facility] [address] [facility] [id number], [place] [address] Feb, [facility] [place] [facility] [address] [facility] [id number], [place] [address] 2006 Feb, [facility] [address] [id number][place] [id number] Jan, [facility] [address] [id number][place] [id number] Dec, [facility] [address] [id number][place] [id number] Dec, [facility] [place] [facility] [address] [id number] [place] [address] 30 Nov, 2011 [facility] [address] [id number] [place] [address] Nov, [facility] [place] [facility] [address] [id number] [place] [address] Oct, [facility] [address] [id number] [place] [address] 15 Jul, 2011 [facility] [place] [facility] [address] [id number] [place] [address] Jul, [facility] [address] [id number] [place] [address] May, [facility] [place] [facility] [address] [id number] [place] [address] May, [facility] [address] [id number] [place] [address] Nov, [facility] [place] [facility] [address] [id number] [place] [address] 30 Mar, 2010 [facility] [place] [facility] [address] [id number] [place] [address] Dec, [facility] [place] [facility] [address] [id number] [place] [address] Nov, [facility] [place] [facility] [address] [id number] [place] [address] Aug, [facility] [place] [facility] [address] [id number] [place] [address] Apr, [facility] [place] [facility] [address] [id number] [place] [address] Apr, [facility] [place] [facility] [address] [id number] [place] [address] 1407 30 Mar, 2009 [facility] [place] [facility] [address] [id number] [place] [address] Feb, [facility] [address] [facility] [id number] [place] [address] September, [facility] [address] [facility] [id number], [place] [address] Jun, [facility] [address] [facility] [id number] [place] [address] Mar, IMMUNIZATIONS No Known Immunizations SOCIAL HISTORY Never Assessed REASON FOR VISIT Requests return call PLAN OF CARE VITAL SIGNS MEDICATIONS [...] hernia Hospitalization History Went by ambulance to [place] as unresponsive 05/2015 Hospitalization History [place] sent her to [facility] for a psych hold 05/2015
--- OUTSIDE RECORDS SUMMARY | 2018-03-15 10:55 | XMS REPORT ---
Author Author HERBERT MCGOWAN Organization [facility] [place] Address [facility] [place] [address] Care Team Providers Care Ingot Supervisor Name Role Phone HERBERT MCGOWAN Unavailable PROBLEMS Type Condition ICD9-CM Code XCK75-SC Code Onset Dates Condition Status SNOMED Code Problem Psoriasis L40.9 Active 4566237 Problem Relationship problem with family member Z63.8 Active 103831810 Problem Essential hypertension I10 Active 04887170 Problem Anxiety F41.9 Active 82636706 Problem Visual disturbance H53.9 Active 61413749 Problem Rheumatoid arthritis involving multiple sites with positive rheumatoid factor M05.79 Active 649582407 Problem Bilateral low back pain with sciatica, sciatica laterality unspecified M54.40 Active 545449245 Problem Hypokalemia E87.6 Active 02460929 Problem Lumbago with sciatica, left side M54.42 Active 121551141 Problem Other chronic pain G89.29 Active 66784599 Problem 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 Active 557763347 Problem Blindness of right eye H54.40 Active 953904728 Problem Posttraumatic stress disorder F43.10 Active 96219189 Problem Overdose T50.901A Active 75043484 Problem Bipolar disorder F31.9 Active 11895352 Problem Borderline personality disorder F60.3 Active 20785974 Problem Obstructive sleep apnea G47.33 Active 14179029 Problem Acquired hypothyroidism E03.9 Active 467196266 Problem Pelvic pain R10.2 Active 85756826 Problem Chronic pain G89.29 Active 71547619 Problem Gastro-esophageal reflux disease without esophagitis K21.9 Active 100180835 Problem Anemia due to other cause, not classified D64.89 Active 259336363 Problem Social anxiety disorder F40.10 Active 95694959 Problem Morbid obesity, unspecified obesity type E66.01 Active 301937579 ALLERGIES No Information ENCOUNTERS Encounter Location Date Diagnosis [facility] [place] [address], [place] [address] Feb, [place] [address] [place] [address] 87511- 8291 Dec, [place] [address], [place] [address] Dec, [address] [id number] [id number] Dec, Dental examination Z01.20 [place] [address] [place] [id number] [place] [address] 00943- 7547 Nov, Bipolar disorder F31.9 ; Posttraumatic stress disorder F43.10 and Borderline personality disorder F60.3 [place] [address] [place] [address] 44610- 5219 Nov, Rheumatoid arthritis involving multiple sites with positive rheumatoid factor M05.79 ; Dysuria R30.0 and Blindness of right eye H54.40 [place] [address] [place] [address] 29795- 3193 Nov, Bipolar disorder F31.9 ; Posttraumatic stress disorder F43.10 ; Social anxiety disorder F40.10 and Relationship problem with family member Z63.8 [place] [address], [place] [address] 8[address] Nov, [place] [address] [place] [address] 58991- 1848 Nov, [place] [address] [place] [id number] [place] [address] 42170- 9071 Nov, 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 ; Adverse effect of antineoplastic and immunosuppressive drugs, initial encounter T45.1X5A ; Anemia , unspecified D64.9 and BMI 40.0-44.9, adult Z68.41 [place] [address] [place] [address] 82148- 6593 Nov, Anemia due to other cause, not classified D64.89 [place] [address] [place] [id number] [place] [address] 00464- 7031 Oct, Adverse effect of drug, initial encounter T50.905A and Acute anemia D64.9 [facility] [place] [address] [id number] [place] [address] 46344- 5928 Oct, Anemia due to other cause, not classified D64.89 ; Dysuria R30.0 and Urinary tract infection without hematuria, site unspecified N39.0 [facility] [place] [address] [place] [id number] [place] [address] 57004- 1056 Oct, [facility] [place] [address] [id number] [place] [address] 29123- 1146 Oct, [facility] [place] [address] [place] [id number] [place] [address] 44021- 5720 Oct, 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 [facility] [address] [place] [id number] [place] [address] [id number] Oct, [facility] [place] [address] [place] [id number] [place] [address] 13044- 7160 Oct, [facility] [place] [address] [place] [id number] [place] [address] 92103- 4448 Oct, [facility] [place] [address] [id number] [place] [address] 31290- 6456 Oct, Bipolar disorder F31.9 ; Posttraumatic stress disorder F43.10 and Borderline personality disorder F60.3 [facility] [place] [address] [place] [id number] [place] [address] 93094- 5054 Oct, Rheumatoid arthritis involving multiple sites with positive rheumatoid factor M05.79 ; 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 and Anxiety F41.9 [facility] [place] [address] [id number] [place] [address] 37071- 1865 Oct, [facility] [place] [address] [place] [id number] [place] [address] 30327- 1523 September, 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 [facility] [place] [address] [place] [address] [place] [address] 1728 September, Bipolar disorder F31.9 ; Posttraumatic stress disorder F43.10 and Borderline personality disorder F60.3 [place] [address] [place] [id number] [place] [address] 20056- 3128 Aug, BMI 40.0-44.9, adult Z68.41 ; Bipolar disorder F31.9 ; Posttraumatic stress disorder F43.10 and Social anxiety disorder F40.10 [place] [address] 37611- 0445 Aug, Bipolar disorder F31.9 ; Posttraumatic stress disorder F43.10 and Borderline personality disorder F60.3 [place] [address] 28604- 8929 Aug, 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 [place] [address] 77619- 7504 Jul, Bipolar disorder F31.9 ; Posttraumatic stress disorder F43.10 and Borderline personality disorder F60.3 [place] [address] 18827- 5198 Jul, [place] [address] [address]28- 1973 Jun, Bipolar disorder F31.9 ; Posttraumatic stress disorder F43.10 and Borderline personality disorder F60.3 [place] [address] [place] [id number] [place] [address] 80410- 4296 Jun, Blindness of right eye H54.40 and Acquired hypothyroidism E03.9 [place] [address] [place] [id number] [place] [address] 44597- 7711 Jun, [place] [address] [place] [id number] [place] [address] 4710 May, Posttraumatic stress disorder F43.10 ; Social anxiety disorder F40.10 and Bipolar disorder F31.9 [place] [address] [place] [id number]- 2546 May, Bipolar disorder F31.9 ; Posttraumatic stress disorder F43.10 and Borderline personality disorder F60.3 [facility] [place] [address], [place] [address] 9632 May, [facility] [place] [address], [place] [address]- 5114 May, [facility] [place] [address] [place] [address] 77008- 3358 Apr, Bipolar disorder F31.9 ; Posttraumatic stress disorder F43.10 and Borderline personality disorder F60.3 [address] [address] Apr, [facility] [place] [address] [place] [address] 97852- 7326 Apr, [facility] [place] [address] [place] [address] 36130- 7547 Mar, Hydradenitis L73.2 [facility] [place] [address] [place] [address] 00476- 5398 15 Mar, 2017 Lumbago with sciatica, left side M54.42 ; Other chronic pain G89.29 ; Morbid obesity, unspecified obesity type E66.01 ; Hydradenitis L73.2 and BMI 40.0-44.9, adult Z68.41 [facility] [place] [address] [place] [address] 48933- 4273 Mar, Bipolar disorder F31.9 ; Posttraumatic stress disorder F43.10 and Borderline personality disorder F60.3 [facility] [place] [address], [place] [address]- 3859 Mar, Social anxiety disorder F40.10 ; Bipolar disorder F31.9 and Relationship problem with family member Z63.8 [facility] [place] [address], [place] [address] Mar, [address] [id number] [id number] Mar, Dental examination Z01.20 [facility] [place] [address], [place] [address]- 7879 Mar, [facility] [place] [address] [place] [address] 32071- 3953 Feb, Bipolar disorder F31.9 ; Posttraumatic stress disorder F43.10 and Borderline personality disorder F60.3 [facility] [address] [address] Feb, [facility] [place] [address] [place] [address] 54935- 4968 14 Jan, 2017 Bipolar disorder F31.9 ; Posttraumatic stress disorder F43.10 and Borderline personality disorder F60.[address] [place] [address] [id number] [id number] Jan, [facility] [place] [address] [place] [address] 11507- 2509 Jan, [facility] [address] [address] Jan, [facility] [place] [address] [place] [address] 30985- 3964 Dec, Bipolar disorder F31.9 ; Posttraumatic stress disorder F43.10 and Borderline personality disorder F60.3 [facility] [place] [address] [place] [address] 29199- 2333 Dec, [facility] [place] [address] [place] [address] 99282- 0680 Dec, [facility] [address] [id number] [address] Dec, [facility] [place] [address] [place] [address] 66091- 5614 Nov, Bipolar 1 disorder F31.9 ; Posttraumatic stress disorder F43.10 and Social anxiety disorder F40.10 [facility] [place] [address] [place] [address] 65865- 5936 Nov, Bipolar disorder F31.9 ; Posttraumatic stress disorder F43.10 and Borderline personality disorder F60.3 [place] [address] [place] [address] 67362- 5352 Nov, Morbid obesity, unspecified obesity type E66.01 [place] [address] [place] [address] 49088- 1599 Nov, [address] [id number], [place] [id number] Oct, Encounter for dental examination and cleaning without abnormal findings Z01.20 [place] [address] [place] [id number] [place] [address] 28413- 9524 Oct, Morbid obesity, unspecified obesity type E66.01 and Acute seasonal allergic rhinitis due to pollen J30.1 [place] [address] [place] [id number] [place] [address] 79826- 5894 Oct, Bipolar disorder F31.9 ; Posttraumatic stress disorder F43.10 and Borderline personality disorder F60.3 [place] [address] [place] [address] 64673- 9900 September, Morbid obesity, unspecified obesity type E66.01 and Psoriasis L40.9 [place] [address] [place] [address] 08459- 4757 September, Bipolar disorder F31.9 ; Posttraumatic stress disorder F43.10 and Borderline personality disorder F60.3 [place] [address] [place] [address] 49670- 0972 September, Chronic pain G89.29 [place] [address] [place] [id number] [place] [address] 34712- 0393 Aug, Other acute nonsuppurative otitis media of right ear H65.191 and Morbid obesity, unspecified obesity type E66.01 [place] [address] [place] [address] 13795- 9647 Aug, Bipolar 1 disorder F31.9 ; Posttraumatic stress disorder F43.10 and Social anxiety disorder F40.10 [facility] [place] [address] [place] [id number] [place] [address] 94009- 3552 Aug, Bipolar disorder F31.9 ; Posttraumatic stress disorder F43.10 and Borderline personality disorder F60.3 [facility] [place] [address] [place] [id number] [place] [address] 43343- 4699 Jul, Morbid obesity due to excess calories E66.01 ; Gastro- esophageal reflux disease without esophagitis K21.9 and Chronic pain G89.29 [facility] [place] [address] [place] [id number] [place] [address] 66369- 4346 Jul, Morbid obesity due to excess calories E66.01 [facility] [place] [address] [place] [id number] [place] [address] 30868- 3978 Jul, [place] [address] [place] [id number] [place] [address] 85211- 7534 Jul, [facility] [place] [address] [place] [id number] [place] [address] 32164- 0771 Jul, Morbid obesity due to excess calories E66.01 [facility] [place] [address] [place] [id number] [place] [address] 08693- 0373 Jul, Bipolar disorder F31.9 ; Posttraumatic stress disorder F43.10 and Borderline personality disorder F60.3 [facility] [place] [address] [place] [id number] [place] [address] 60704- 4504 Jun, [facility] [place] [address] [place] [id number] [place] [address] 97741- 5449 Jun, Morbid obesity due to excess calories E66.01 [facility] [place] [address] [place] [id number] [place] [address] 23453- 9610 Jun, [facility] [place] [address] [place] [id number] [place] [address] 15749- 0867 Jun, Morbid obesity, unspecified obesity type E66.01 [facility] [place] [address] [place] [address]- 5716 Jun, Bipolar disorder F31.9 ; Posttraumatic stress disorder F43.10 and Borderline personality disorder F60.3 [facility] [place] [address] [place] [address] 48247- 6712 Jun, [facility] [place] [address] [place] [id number] [place] [address] 11516- 8808 Jun, [facility] [place] [address] [place] [id number] [place] [address] 56337- 3767 Jun, Acquired hypothyroidism E03.9 and Morbid obesity due to excess calories E66.01 [facility] [place] [address] [place] [id number] [place] [address] 70033- 7386 May, Bipolar disorder F31.9 ; Posttraumatic stress disorder F43.10 and Borderline personality disorder F60.3 [place] [address] [place] [id number] [place] [address] 36344- 0344 Apr, Bipolar 1 disorder F31.9 ; Posttraumatic stress disorder F43.10 and Social anxiety disorder F40.[address] [place] [place] [address] [id number] [id number] Apr, Encounter for dental examination Z01.20 [facility] [place] [address] [place] [address] 13193- 9990 Apr, [facility] [place] [address] [place] [id number] [place] [address] 71758- 0055 Apr, Acquired hypothyroidism E03.9 [facility] [place] [address] [place] [id number] [place] [address] 77827- 6356 Apr, Acquired hypothyroidism E03.9 [facility] [place] [address] [place] [id number] [place] [address] 67232- 2234 Apr, Bipolar disorder F31.9 ; Posttraumatic stress disorder F43.10 and Borderline personality disorder F60.3 [facility] [place] [address] [place] [id number] [place] [address] 64747- 1487 Apr, Acquired hypothyroidism E03.9 [facility] [address] [id number] [id number] Mar, Encounter for dental examination and cleaning without abnormal findings Z01.20 [facility] [place] [address], [place] [address]- 5993 08 Mar, 2016 [facility] [place] [address] [place] [id number] [place] [address] 57016- 9502 Mar, Bipolar disorder F31.9 ; Posttraumatic stress disorder F43.10 and Borderline personality disorder F60.3 [place] [address] [place] [id number] [place] [address] 42671- 3986 Mar, Essential (primary) hypertension I10 [place] [address] [place] [id number] [place] [address] 92960- 9491 Feb, [place] [address] [place] [id number] [place] [address] 81949- 4088 Feb, [facility] [place] [address] [place] [id number] [place] [address] 21209- 9721 Feb, Pelvic pain R10.2 ; Lipid screening Z13.220 ; Fatigue, unspecified type R53.83 and Weight gain R63.5 [place] [address], [place] [address]- 2212 Feb, Bipolar disorder F31.9 ; Posttraumatic stress disorder F43.10 and Borderline personality disorder F60.3 [place] [address] [place] [address] 28789- 4820 Feb, [facility] [place] [address] [place] [address] 35142- 0864 Feb, [place] [address] [place] [id number] [place] [address] 84982- 2029 30 Jan, 2016 Obstructive sleep apnea syndrome G47.33 [facility] [place] [address], [place] [address]- 4126 Jan, [facility] [address] [id number] [id number] Jan, Dental examination Z01.20 [facility] [place] [address] [place] [address] 98277- 0767 Jan, Bipolar 1 disorder F31.9 ; Posttraumatic stress disorder F43.10 and Social anxiety disorder F40.10 [facility] [place] [address], [place] [address]- 0214 Jan, Bipolar disorder F31.9 ; Posttraumatic stress disorder F43.10 and Borderline personality disorder F60.3 [facility] [place] [address] [place] [address] 19315- 7836 Jan, Sciatica of left side M54.32 [facility] [place] [address], [place] [address]- 2755 Jan, [facility] [place] [address] [place] [address] 02414- 9757 Dec, [facility] [place] [address], [place] [address]- 1318 Dec, [facility] [place] [address] [place] [address] 39252- 9936 Dec, Bipolar disorder F31.9 ; Posttraumatic stress disorder F43.10 and Borderline personality disorder F60.3 [facility] [place] [address], [place] [address]- 4543 Nov, [facility] [place] [address], [place] [address]- 7000 Nov, Insomnia, unspecified type G47.00 [facility] [place] [address] [place] [address] 86151- 8716 Nov, Bipolar disorder F31.9 ; Posttraumatic stress disorder F43.10 and Borderline personality disorder F60.3 [facility] [place] [address], [place] [address]- 7026 Nov, [facility] [place] [id number] [address]- 6762 Nov, [facility] [place] [id number] [place] [address] 71814- 4032 Oct, Bipolar disorder F31.9 ; Posttraumatic stress disorder F43.10 and Borderline personality disorder F60.3 [facility] [place] [address] [place] [address] 64434- 4482 Oct, [facility] [place] [id number] [place] [address] 94127- 3011 Oct, Essential (primary) hypertension I10 [facility] [place] [id number] [place] [address] 29123- 7003 September, Bipolar 1 disorder F31.9 ; Posttraumatic stress disorder F43.10 and Social anxiety disorder F40.10 [facility] [place] [id number] [place] [address] 90856- 9914 September, Bipolar disorder F31.9 ; Posttraumatic stress disorder F43.10 and Borderline personality disorder F60.[address] [place] [id number] [address] September, Encounter for dental examination and cleaning without abnormal findings Z01.20 [facility] [place] [address] [place] [address] 65464- 9436 September, [facility] [place] [address] [place] [address] 06885- 2153 September, [facility] [place] [address] [place] [address] 16003- 9491 Aug, [facility] [place] [address] [place] [address] 47748- 2902 Aug, Bipolar disorder F31.9 ; Posttraumatic stress disorder F43.10 and Borderline personality disorder F60.3 [facility] [place] [address] [place] [address] 92478- 1258 Aug, [facility] [place] [id number] [place] [address] 51957- 2786 Aug, [facility] [place] [id number] [address] Aug, [facility] [id number] [id number] Jul, Acute nasopharyngitis [common cold] J00 and Other viral agents as the cause of diseases classified elsewhere B97.89 [facility] [place] [id number] [place] [address] 43887- 8401 24 Jul, 2015 Chronic pain G89.29 and Allergic rhinitis J30.9 [facility] [place] [address] [place] [address] 99709- 2910 24 Jul, 2015 Bipolar 1 disorder F31.9 ; Posttraumatic stress disorder F43.10 and Social anxiety disorder F40.10 [place] [id number] [place] [address] 97232- 6984 16 Jul, 2015 Bipolar 1 disorder F31.9 [facility] [place] [address] [place] [address] 54706- 1736 16 Jul, 2015 Bipolar disorder F31.9 ; Posttraumatic stress disorder F43.10 and Borderline personality disorder F60.3 [place] [address] [place] [address] 60146- [phone] 14 Jul, 2015 [place] [id number] [place] [address] [phone] 14 Jul, 2015 [place] [id number] [place] [address] [phone] 11 Jul, 2015 [facility], [place] [id number] [place] [address] [phone]- [phone] 10 Jul, 2015 Anxiety F41.9 [place] [id number] [place] [address] 75741- [phone] 10 Jul, 2015 Chronic pain G89.29 and Encounter for therapeutic drug level monitoring Z51.81 [facility], [place] [address] [id number] [place] [address] [phone] Jul, Chronic pain G89.29 and Encounter for therapeutic drug level monitoring Z51.81 [facility], [place] [id number] [place] [address] [phone] Jul, [facility], [place] [id number] [place] [address] [phone] Jun, [facility], [place] [id number] [place] [address] [phone] Jun, [facility], [place] [id number] [place] [address] [phone] Jun, [facility], [place] [id number] [place] [address] [phone] Jun, [facility], [place] [id number] [place] [address] 16454- 3093 Jun, High risk medication use V58.69 [facility], [place] [id number] [place] [address] 89760- 2849 Jun, [facility], [place] [id number] [place] [address] 71310- 6637 Jun, Bipolar 1 disorder F31.9 ; Overdose T50.901A and Chronic pain G89.29 [facility], [place] [id number] [place] [address] 11231- 4693 Jun, Bipolar disorder F31.9 ; Posttraumatic stress disorder F43.10 and Borderline personality disorder F60.3 [facility], [place] [id number] [place] [address] 41515- 1654 Jun, [facility], [place] [id number] [place] [address] 81346- 2632 Jun, [facility], [place] [id number] [place] [address] 28797- 2859 Jun, Keloid L91.0 [facility], [place] [id number] [place] [address] 07024- 3929 Jun, [facility], [place] [address] [address] 0034 May, [facility], [place] [id number] [place] [address] 90764- 6905 May, [facility], [place] [address], [place] [address] 4701 May, Pelvic pain R10.2 [facility], [place] [id number] [place] [address] 50518- 7342 May, [facility], [place] [address] [place] [address] 15703- 4634 May, Pain of left thumb M79.645 ; Incisional pain R20.8 ; Pelvic pain R10.2 and Essential hypertension I10 [facility], [place] [address], [place] [address]- 9222 May, [facility], [place] [address], [place] [address]9 May, [address] [id number] [id number] May, Dental examination Z01.20 and Necrosis of pulp K04.1 [facility], [place] [address], [place] [address]- 5375 Apr, [facility], [place] [address], [place] [address]- 9217 Apr, [facility], [place] [address], [place] [address]- 7431 Apr, [facility], [place] [id number] [place] [address] 20200- 3497 Apr, [facility], [place] [address], [place] [address]- 8399 Apr, [facility], [place] [address], [place] [address]- 2386 Apr, [facility] [address] [id number], [place] [address] 9467 Apr, [facility] [address] [facility] [id number], [place] [address]- 1047 Apr, [facility] [address] [facility] [id number], [place] [address]- 1543 Mar, [facility] [address] [facility] [id number] [place] [address], [place] [address]- 7199 Mar, [facility] [address] [id number] [place] [address]- 4901 Mar, [facility] [address] [facility] [id number] [place] [address], [place] [address]- 7716 Mar, [facility] [address] [facility] [id number] [place] [address]- 8678 Feb, [facility] [address] [facility] [id number] [place] [address] 12423- 8354 Feb, [facility] [address] [facility] [id number] 6379 Feb, [facility] [id number], [place] [address]- 9736 Feb, [facility] [address] [facility] [id number], [place] [address]- 1633 Feb, [facility] [address] [facility] [id number], [place] [address]- 9053 Feb, [facility] [address] [facility] [id number], [place] [address]- 7707 Feb, [facility] [address] [id number] [address]- 2541 Feb, Dermatofibroma of left lower leg D23.72 [facility] [address] [facility] [id number], [place] [address]- 1635 Feb, Hematochezia 578.1 ; Low back pain M54.5 ; High risk medication use V58.69 ; Cervicalgia M54.2 and Anxiety F41.9 [facility] [address] [id number] [id number] Feb, Dental examination Z01.20 ; Pulpitis K04.0 and Dental caries, unspecified K02.9 [facility] [address] [facility] [address] [id number] [id number] Feb, Dental examination Z01.20 [facility], [place] [id number] [place] [address] 34761- 8381 30 Jan, 2015 [facility], [place] [id number] [place] [address] 58245- 1510 Jan, [facility], [place] [id number] [place] [address] 43311- 8141 Jan, [facility], [place] [id number] [place] [address] 28718- 9057 Jan, [facility], [place] [id number] [place] [address] 79975- 3002 Dec, [facility], [place] [id number] [place] [address] 09988- 2857 Dec, [facility], [place] [id number] [place] [address] 61538- 5172 Dec, [facility], [place] [id number] [place] [address] 13886- 6518 Dec, [facility], [place] [id number], [place] [address]- 1595 Dec, [facility], [place] [id number] [place] [address] 52475- 3692 Dec, [facility], [place] [address] [id number], [place] [address]- 5181 Dec, [facility], [place] [id number] [place] [address] 49427- 2921 Dec, [facility] [address] [id number] [id number] Nov, Encounter for removal of sutures V58.32 [facility], [place] [address], [place] [address]- 4907 Nov, [facility], [place] [address] [id number], [place] [address]- 9287 Nov, [facility], [place] [address], [place] [address]- 1775 Nov, [facility], [place] [address], [place] [address]- 6454 Nov, [facility], [place] [address], [place] [address]- 9458 Nov, [facility], [place] [address], [place] [address]- 0741 Nov, [facility], [place] [address], [place] [address]- 0404 Nov, [facility], [place] [address], [place] [address]- 1059 Nov, Dermatofibroma 216.9 [facility], [place] [address], [place] [address]- 0107 Nov, [facility], [place] [id number], [place] [address]- 2028 Nov, [facility], [place] [address] [id number], [place] [address]- 7445 Oct, [facility], [place] [id number], [place] [address]- 6285 Oct, Hematochezia 578.1 ; Abscess 682.9 ; GERD (gastroesophageal reflux disease) 530.81 ; Visual disturbance of one eye 368.9 and High risk medication use V58.69 [facility], [place] [address], [place] [address]- 0402 Oct, [facility] [address] [id number] [place] [address]- 4394 Oct, [facility] [address] [id number] [place] 9697 Oct, [facility] [address] [id number] [place] [address]- 8825 September, [facility] [address] [id number] [place] [address]- 4769 September, [facility] [address] [id number] [place] 9619 September, [facility] [address] [id number] [place] [address]- 3465 September, [facility] [address] [id number] [place] [address]- 5294 September, [facility] [address] [facility] [id number] [place] [address]- 0219 September, Colon cancer screening V76.51 [facility] [address] [id number] [place] 3593 September, [facility] [address] [id number] [place] [address]- 4128 Aug, [facility] [address] [id number] [place] [address]- 8091 Aug, [facility] [place] [facility] [address] [id number] [place] [address]- 4479 Jul, [facility] [place] [facility] [address] [id number] [place] 5988 Jul, [facility] [place] [facility] [address] [id number] [place] [address]- 4921 Jul, [facility] [place] [facility] [address] [id number] [place] [address]- 5064 Jul, [facility] [place] [facility] [address] [id number] [place] [address]- 4220 Jun, [facility] [place] [facility] [address] [id number] [place] [address]- 9316 Jun, [facility] [place] [facility] [address] [id number] [place] [address]- 3446 Jun, [facility] [place] [facility] [address] [id number] [place] [address]- 3366 Jun, [facility] [place] [facility] [address] [id number] [place] [address]- 0083 Jun, [facility] [place] [facility] [address] [id number] [place] [address]- 4702 Jun, [facility] [place] [facility] [address] [id number] [place] [address]- 0307 May, [facility] [place] [facility] [address] [id number] [place] [address]- 5672 May, [facility] [place] [facility] [address] [id number] [place] [address]- 7210 May, [facility] [place] [facility] [address] [id number] [place] [address]- 1060 May, [facility] [place] [facility] [address] [facility] [id number] [place] [address]- 1693 May, [facility] [place] [facility] [address] [id number] [place] [address]- 0285 May, [facility] [place] [facility] [address] [id number] [place] [address]- 8835 May, [facility] [place] [facility] [address] [id number] [place] [address]- 9809 May, [facility] [place] [facility] [address] [id number] [place] [address]- 1810 Apr, [facility] [place] [facility] [address] [id number] [place] [address]- 8665 Apr, [facility] [place] [facility] [address] [id number] [place] [address]- 1130 Apr, [facility] [place] [facility] [address] [id number] [place] [address]- 4201 Apr, [facility] [place] [facility] [address] [id number] [place] [address]- 7621 Apr, [facility] [place] [facility] [address] [id number] [place] [address]- 7444 Apr, [facility] [place] [facility] [address] [id number] [place] [address]- 7448 Apr, [facility] [place] [facility] [address] [id number] [place] [address]- 6177 Apr, [facility] [place] [facility] [address] [id number] [place] [address]- 5591 Mar, [facility] [place] [facility] [address] [id number] [place] [address]- 6078 Mar, [facility] [place] [facility] [address] [id number] [place] [address]- 8668 Mar, [facility] [place] [facility] [address] [id number] [place] [address]- 7247 Mar, [facility] [place] [facility] [address] [id number], [place] [address]- 8880 Mar, [facility] [place] [facility] [address] [id number], [place] [address]- 7602 Mar, [facility] [place] [facility] [address] [id number] [place] [address]- 3099 Mar, [facility] [place] [facility] [address] [id number], [place] [address]- 4692 Mar, [facility] [place] [facility] [address] [id number], [place] [address]- 9023 Mar, [facility] [place] [facility] [address] [id number] [place] [address]- 1642 Mar, [facility] [place] [facility] [address] [id number] [place] [address]- 6863 Feb, [facility] [place] [facility] [address] [id number] [place] [address]- 1824 Feb, [facility] [place] [facility] [address] [id number] [place] [address]- 7939 Jan, [facility] [place] [facility] [address] [id number] [place] [address]- 5152 Jan, [facility] [place] [facility] [address] [id number] [place] [address]- 3376 Jan, [facility] [place] [facility] [address] [id number] [place] [address]- 7127 Jan, [facility] [place] [facility] [address] [id number] [place] [address]- 2162 Dec, [facility] [place] [facility] [address] [id number] [place] [address]- 5517 Dec, [facility] [place] [facility] [address] [id number] [place] [address]- 1352 Dec, [facility] [place] [facility] [address] [id number] [place] [address]- 1930 Dec, [facility] [place] [facility] [address] [id number] [place] [address]- 7271 Dec, [facility] [place] [facility] [address] [id number] [place] [address]- 9950 Dec, [facility] [place] [facility] [address] [id number] [place] [address]- 0858 Nov, [facility] [place] [facility] [address] [id number] [place] [address]- 6159 Nov, [facility] [place] [facility] [address] [id number] [place] [address]- 5168 Oct, [facility] [place] [facility] [address] [id number] [place] [address]- 3442 Oct, [facility] [place] [facility] [address] [id number] [place] [address]- 4333 Oct, [facility] [place] [facility] [address] [id number] [place] [address]- 4278 Oct, [facility] [place] [facility] [address] [id number] [place] [address]- 5266 September, [facility] [place] [facility] [address] [id number] [place] [address]- 0915 September, [facility] [place] [facility] [address] [id number] [place] [address]- 0426 September, [facility] [place] [facility] [address] [id number] [place] [address]- 4897 September, [facility] [place] [facility] [address] [id number] [place] [address]- 8781 September, [facility] [place] [facility] [address] [id number] [place] [address]- 6027 September, [facility] [place] [facility] [address] [id number] [place] [address]- 4139 September, [facility] [place] [facility] [address] [id number] [place] [address]- 3079 September, [facility] [place] [facility] [address] [id number] [place] [address]- 7440 Aug, [facility] [place] [facility] [address] [id number] [place] [address]- 8838 Aug, [facility] [place] [facility] [address] [id number] [place] [address]- 3079 Aug, [facility] [place] [facility] [address] [id number] [place] [address]- 7392 Aug, [facility] [place] [facility] [address] [id number], [place] [address]- 7455 Aug, [facility] [place] [facility] [address] [id number] [place] [address]- 5848 Aug, [facility] [place] [facility] [address] [id number] [place] [address]- 9136 Jul, [facility] [place] [facility] [address] [facility] [id number] [place] [address]- 0249 Jul, [facility] [place] [facility] [address] [id number] [place] [address]- 3309 Jul, [facility] [place] [facility] [address] [id number] [place] [address]- 9037 Jul, [facility] [place] [facility] [address] [id number] [place] [address]- 3198 Jun, [facility] [place] [facility] [address] [facility] [id number] [place] [address]- 8735 Jun, [facility] [place] [facility] [address] [id number] [place] [address]- 0546 Jun, [facility] [place] [facility] [address] [facility] [id number] [place] [address]- 2337 Jun, [facility] [place] [facility] [address] [facility] [id number] [place] [address]- 1086 Jun, [facility] [place] [facility] [address] [facility] [id number] [place] [address]- 3365 Jun, [facility] [place] [facility] [address] [id number], [place] [address]- 8974 May, [facility] [place] [facility] [address] [id number] [place] [address]- 1323 May, [facility] [place] [facility] [address] [id number], [place] [address]- 2504 May, [facility] [place] [facility] [address] [id number], [place] [address]- 8582 May, [facility] [place] [facility] [address] [id number] [place] [address]- 3966 May, [facility] [address] [id number] [place] [address]- 0346 May, [facility] [address] [id number] [place] [address]- 2546 May, [facility] [address] [id number] [place] [address] May, [facility] [address] [id number] [place] [address] Apr, [facility] [address] [facility] [id number] Apr, [facility] [address] [id number] [place] [address] Apr, [facility] [address] [id number] [place] [address] Apr, [facility] [address] [id number] [place] [address] Apr, [facility] [address] [id number] [place] [address] Apr, [facility] [address] [id number] [place] [address] 05 Apr, 2013 [facility] [address] [id number] [place] [address] 05 Apr, 2013 [facility] [address] [id number] [place] [address] 04 Apr, 2013 [facility] [address] [id number] [place] [address] Mar, [facility] [address] [id number] [place] [address] Mar, [facility] [address] [id number] [place] [address] Mar, [facility] [place] [facility] [address] [id number] [place] [address] Mar, [facility] [place] [facility] [address] [id number] [place] [address] Mar, [facility] [place] [facility] [address] [id number] [place] [address] Feb, [facility] [place] [facility] [address] [id number] [place] [address] Feb, [facility] [place] [facility] [address] [id number] [place] [address] Feb, [facility] [place] [facility] [address] [id number] [place] [address]- [address]184 Feb, [facility] [place] [facility] [address] [id number] [place] [address] Jan, [facility] [place] [facility] [address] [id number] [place] [address] Jan, [facility] [place] [facility] [address] [id number] [place] [address] Jan, [facility] [place] [facility] [address] [id number], [place] [address] Dec, [facility] [place] [facility] [address] [id number], [place] [address] Dec, [facility] [place] [facility] [address] [id number], [place] [address] Dec, [facility] [address] [id number] [place] [id number] Nov, [facility] [address] [id number] [place] [id number] Oct, [facility] [place] [facility] [address] [id number] [place] [address] Oct, [facility] [place] [facility] [address] [id number], [place] [address] September, [facility] [address] [id number] [place] [address] September, [facility] [place] [facility] [address] [id number] [place] [address] September, [facility] [address] [id number] [place] [address] September, [facility] [place] [facility] [address] [id number] [place] [address] September, [facility] [address] [id number] [place] [address] Jul, [facility] [place] [facility] [address] [id number] [place] [address] Jul, [facility] [address] [id number] [place] [address] Jul, [facility] [place] [facility] [address] [id number] [place] [address] Jul, [facility] [place] [facility] [address] [id number] [place] [address] Jun, [facility] [place] [facility] [address] [id number] [place] [address]84 Jun, [facility] [place] [facility] [address] [id number] [place] [address] Jun, [facility] [place] [facility] [address] [id number], [place] [address] Jun, [facility] [place] [facility] [address] [id number] [place] [address] May, [facility] [place] [facility] [address] [id number] [place] [address] Mar, [facility] [place] [facility] [address] [id number] [place] [address]- 0[address] Mar, [facility] [place] [facility] [address] [id number], [place] [address] Mar, [facility] [place] [facility] [address] [id number], [place] [address] Mar, [facility] [place] [facility] [address] [id number], [place] [address] Mar, [facility] [place] [facility] [address] [id number], [place] [address]- [address] Mar, [facility] [place] [facility] [address] [id number] [place] [address]- [address] Mar, [facility] [place] [facility] [address] [facility] [id number] [place] [address] Mar, [facility] [place] [facility] [address] [facility] [id number] [place] [address] Feb, [facility] [place] [facility] [address] [facility] [id number], [place] [address] Feb, [facility] [place] [facility] [address] [facility] [id number], [place] [address] Feb, [facility] [place] [facility] [address] [facility] [id number], [place] [address] Feb, [facility] [place] [facility] [address] [facility] [id number], [place] [address] Feb, [facility] [place] [facility] [address] [facility] [id number], [place] [address] 9[address] Feb, [facility] [place] [facility] [address] [facility] [id number], [place] [address] Feb, [facility] [address] [id number][place] [id number] Jan, [facility] [address] [id number][place] [id number] Dec, [facility] [address] [id number][place] [id number] Dec, [facility] [place] [facility] [address] [id number] [place] [address] 30 Nov, 2011 [facility] [address] [id number] [place] [address] Nov, [facility] [place] [facility] [address] [id number] [place] [address] Oct, [facility] [address] [address] [id number] [place] [address] 15 Jul, 2011 [facility] [place] [facility] [address] [id number] [place] [id number] Jul, [facility] [address] [id number] [place] [address] May, [facility] [place] [facility] [address] [id number] [place] [address] May, [facility] [address] [id number] [place] [address] Nov, [facility] [place] [facility] [address] [id number] [place] [address] 30 Mar, 2010 [facility] [place] [facility] [address] [id number] [place] [address] Dec, [facility] [place] [facility] [address] [id number] [place] [address] Nov, [facility] [place] [facility] [address] [id number] [place] [address] Aug, [facility] [place] [facility] [address] [id number] [place] [address] Apr, [facility] [place] [facility] [address] [id number] [place] [address] Apr, [facility] [place] [facility] [address] [id number] [place] [address] 30 Mar, 2009 [facility] [place] [facility] [address] [id number] [place] [address] Feb, [facility] [place] [address] [facility] [id number], [place] [address] September, [facility] [place] [address] [facility] [id number], [place] [address] Jun, [facility] [place] [address] [facility] [id number], [place] [address] Mar, IMMUNIZATIONS No Known Immunizations SOCIAL HISTORY Never Assessed REASON FOR VISIT Weight management/blindness-Hernandez [facility]MAYA PLAN OF CARE Activity Details Follow Up 4 Weeks Reason:labs VITAL SIGNS Height 62 in 2017-10-24 Weight 223.6 lbs 2017-10-24 BMI 40.89 kg/m2 2017-10-24 MEDICATIONS Medication Instructions Dosage Frequency Start Date End Date Duration Status Azathioprine Active Carafate 1 GM Orally 4 times a day 1 tablet on an empty stomach 6h 90 Active Triamcinolone Acetonide 0.5 % Externally Twice a day 1 application to affected area 12h September, Active Sumatriptan 5 mg by oral route Once a day 1 tablet 24h Active Atorvastatin Calcium 20 MG Orally Once a day 1 tablet 24h 90 Active Oxygen 2 L/NC Active Combivent Respimat 20-100 MCG/ACT Inhalation Four times a day 1 puff 6h 30 Active Levothyroxine Sodium 25 MCG Orally Once a day 1 tablet on an empty stomach in the morning 24h 90 days Active Estradiol 1 MG Orally Once a day 1 tablet 24h Active Cymbalta 60 mg Orally Once a day 2 capsule 24h 30 days Active Creon 54204 UNIT Orally 3 times a day 1 capsule before meals 8h Nov, 30 days Active Dicyclomine HCl 20 mg 1 tablet Four times a day Orally 30 days 30 Active Tizanidine HCl 2 MG Orally 2 times a day 1 tablet as needed 12h Feb, 90 days Active Fluocinolone Acetonide 0.01 % Externally twice a day until gone 1 application to affected area 30 Active Contrave 8-90 MG Orally Twice a day 2 tablets 12h Jun, 30 days Active Losartan Potassium-HCTZ 50-12.5 MG Orally Once a day 1 tablet 24h 90 Active Fish Oil 300 MG Orally Once a day 1 capsule 24h Active Lipitor 20 mg Orally Once a day 1 tablet 24h 90 Not-Taking Prednisone 20 mg Oral 2 times a day 1 1/2 tablets 12h Active Gabapentin 300 MG Orally 3 times a day 1 tablet 8h 90 days Active Doxepin HCl 10 mg Orally Once at bedtime for sleep 1 capsule at bedtime September, Active Lamotrigine 200 mg Orally Once a day 1 tablet 24h Active Loratadine 10 mg Orally 2 times a day 1 tablet 12h September, 90 days Active RESULTS No Results PROCEDURES Procedure Date Ordered Result Body [facility] October 24, 2017 X-RAY EXAM OF FOOT October 24, 2017 INSTRUCTIONS MEDICATIONS ADMINISTERED No Known Medications [...] hernia Hospitalization History Went by ambulance to [place] as unresponsive 05/2015 Hospitalization History [place] sent her to [facility] for a psych hold 05/2015
--- OUTSIDE RECORDS SUMMARY | 2018-03-15 10:56 | XMS REPORT ---
Author Author SAMI SUAREZ [facility] Address [facility] [place] [address] Care Team Providers Care Area Cleaner Name Role Phone SAMI SUAREZ Unavailable PROBLEMS Type Condition ICD9-CM Code HCU54-ER Code Onset Dates Condition Status SNOMED Code Problem Psoriasis L40.9 Active 9935189 Problem Relationship problem with family member Z63.8 Active 593644638 Problem Essential hypertension I10 Active 91121878 Problem Anxiety F41.9 Active 53559656 Problem Visual disturbance H53.9 Active 21152487 Problem Rheumatoid arthritis involving multiple sites with positive rheumatoid factor M05.79 Active 414373973 Problem Bilateral low back pain with sciatica, sciatica laterality unspecified M54.40 Active 502091009 Problem Hypokalemia E87.6 Active 89382968 Problem Lumbago with sciatica, left side M54.42 Active 292299787 Problem Other chronic pain G89.29 Active 76725868 Problem 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 Active 133455138 Problem Blindness of right eye H54.40 Active 785181799 Problem Posttraumatic stress disorder F43.10 Active 85754262 Problem Overdose T50.901A Active 93462391 Problem Bipolar disorder F31.9 Active 81661216 Problem Borderline personality disorder F60.3 Active 30048719 Problem Obstructive sleep apnea G47.33 Active 83697970 Problem Acquired hypothyroidism E03.9 Active 552709137 Problem Pelvic pain R10.2 Active 26105384 Problem Chronic pain G89.29 Active 16998467 Problem Gastro-esophageal reflux disease without esophagitis K21.9 Active 885274928 Problem Anemia due to other cause, not classified D64.89 Active 659511992 Problem Social anxiety disorder F40.10 Active 28943126 Problem Morbid obesity, unspecified obesity type E66.01 Active 600304876 ALLERGIES No Information ENCOUNTERS Encounter Location Date Diagnosis [facility] [address] [facility] [id number] [place] [address] 41735- 4736 Feb, [place] [address] [place] [id number] [place] [address] 39181- 0505 Dec, [place] [address] [address] [id number] [place] [address] 95597- 8837 Dec, [address] [id number] [id number] Dec, Dental examination Z01.20 [place] [address] [address] [id number] [place] [address] 66208- 9649 Nov, Bipolar disorder F31.9 ; Posttraumatic stress disorder F43.10 and Borderline personality disorder F60.3 [place] [address] [id number] [place] [address] 79437- 4546 Nov, Rheumatoid arthritis involving multiple sites with positive rheumatoid factor M05.79 ; Dysuria R30.0 and Blindness of right eye H54.40 [place] [address] [address] [id number] [place] [address] 73484- 5088 Nov, Bipolar disorder F31.9 ; Posttraumatic stress disorder F43.10 ; Social anxiety disorder F40.10 and Relationship problem with family member Z63.8 [place] [address] [address] [id number] [place] [address] 62857- 4198 Nov, [place] [address] [address] [id number] [place] [address] 97252- 3002 Nov, [place] [address] [address] [id number] [place] [address] 83205- 9266 Nov, 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 ; Adverse effect of antineoplastic and immunosuppressive drugs, initial encounter T45.1X5A ; Anemia , unspecified D64.9 and BMI 40.0-44.9, adult Z68.41 [place] [address] [place] [address] 69055- 2322 Nov, Anemia due to other cause, not classified D64.89 [place] [address] [place] [address] 7745 Oct, Adverse effect of drug, initial encounter T50.905A and Acute anemia D64.9 [facility] [address] 45855- 1646 Oct, Anemia due to other cause, not classified D64.89 ; Dysuria R30.0 and Urinary tract infection without hematuria, site unspecified N39.0 [facility] [address] [address] [id number] [place] [address] 75107- 0747 Oct, [facility] [address] 97380- 2172 Oct, [facility] [address] 12734- 6917 Oct, 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 [place] [id number] [place] [address] [id number] Oct, [facility] [address] 72695- 9306 Oct, [facility] [address] [id number] [place] [address] 81321- 8159 Oct, [facility] [address] [id number] [place] [address] 86979- 1915 Oct, Bipolar disorder F31.9 ; Posttraumatic stress disorder F43.10 and Borderline personality disorder F60.3 [facility] [id number] [place] [address] 40161- 5993 Oct, Rheumatoid arthritis involving multiple sites with positive rheumatoid factor M05.79 ; 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 and Anxiety F41.9 [facility] [address] 95118- 7880 Oct, [facility] [address] [id number] [place] [address] 24952- 0284 September, 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 [facility] [address] [place] [address] 4507 September, Bipolar disorder F31.9 ; Posttraumatic stress disorder F43.10 and Borderline personality disorder F60.3 [place] [address] [address] [id number] [place] [address] 70455- 5532 Aug, BMI 40.0-44.9, adult Z68.41 ; Bipolar disorder F31.9 ; Posttraumatic stress disorder F43.10 and Social anxiety disorder F40.10 [place] [address] 88270- 3991 Aug, Bipolar disorder F31.9 ; Posttraumatic stress disorder F43.10 and Borderline personality disorder F60.3 [place] [address] 33075- 7866 Aug, 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 [place] [address] 27229- 0770 Jul, Bipolar disorder F31.9 ; Posttraumatic stress disorder F43.10 and Borderline personality disorder F60.3 [place] [address] [address] [id number] [place] [address] 48961- 7564 Jul, [place] [address] 15304- 3537 Jun, Bipolar disorder F31.9 ; Posttraumatic stress disorder F43.10 and Borderline personality disorder F60.3 [place] [address] 59019- 2699 Jun, Blindness of right eye H54.40 and Acquired hypothyroidism E03.9 [place] [id number] [place] [address] 77560- 2526 Jun, [place] [address] [place] [address] [id number]- 1476 May, Posttraumatic stress disorder F43.10 ; Social anxiety disorder F40.10 and Bipolar disorder F31.9 [place] [address] [place] [id number]- 2546 May, Bipolar disorder F31.9 ; Posttraumatic stress disorder F43.10 and Borderline personality disorder F60.3 [facility] [address] [address]- 2471 May, [facility] [address] [id number] [address] 3033 May, [facility] [address] [place] [address] 25620- 5087 Apr, Bipolar disorder F31.9 ; Posttraumatic stress disorder F43.10 and Borderline personality disorder F60.3 [address] [id number] Apr, [facility] [address] [address] 0832 Apr, [facility] [address] [place] [address] 00249- 8103 Mar, Hydradenitis L73.2 [facility] [address] [place] [address] 02111- 3685 Mar, Lumbago with sciatica, left side M54.42 ; Other chronic pain G89.29 ; Morbid obesity, unspecified obesity type E66.01 ; Hydradenitis L73.2 and BMI 40.0-44.9, adult Z68.41 [facility] [address] [address] 1906 Mar, Bipolar disorder F31.9 ; Posttraumatic stress disorder F43.10 and Borderline personality disorder F60.3 [facility] [address] [address]- 5419 Mar, Social anxiety disorder F40.10 ; Bipolar disorder F31.9 and Relationship problem with family member Z63.8 [facility] [address] [id number] [address]- 4324 Mar, [address] [id number] [id number] Mar, Dental examination Z01.20 [facility] [address] [address]- 2196 Mar, [facility] [id number] [place] [address] 80493- 8205 Feb, Bipolar disorder F31.9 ; Posttraumatic stress disorder F43.10 and Borderline personality disorder F60.3 [facility] [address] [place] [address] [id number] Feb, [facility] [address] [place] [address] 88886- 2156 14 Jan, 2017 Bipolar disorder F31.9 ; Posttraumatic stress disorder F43.10 and Borderline personality disorder F60.[address] [id number] [id number] Jan, [facility] [address] [place] [address] 42656- 4826 Jan, [facility] [address] [place] [address] [id number] Jan, [facility] [address] [place] [address] 71359- 0877 Dec, Bipolar disorder F31.9 ; Posttraumatic stress disorder F43.10 and Borderline personality disorder F60.3 [facility] [address] [place] [address] 10429- 4030 Dec, [facility] [address] [place] [address] 60652- 5108 Dec, [facility] [address] [facility] [id number] [place] [address] [id number] Dec, [facility] [address] [place] [address] 20909- 9110 Nov, Bipolar 1 disorder F31.9 ; Posttraumatic stress disorder F43.10 and Social anxiety disorder F40.10 [facility] [address] [place] [address] 56732- 8002 Nov, Bipolar disorder F31.9 ; Posttraumatic stress disorder F43.10 and Borderline personality disorder F60.3 [place] [address] [place] [address] 59968- 7003 Nov, Morbid obesity, unspecified obesity type E66.01 [place] [address] [place] [address] 45966- 7097 Nov, [address] [id number] [id number] Oct, Encounter for dental examination and cleaning without abnormal findings Z01.20 [place] [address] [address] [id number] [place] [address] 54051- 0118 Oct, Morbid obesity, unspecified obesity type E66.01 and Acute seasonal allergic rhinitis due to pollen J30.1 [place] [address] [address] [id number] [place] [address] 10162- 3149 Oct, Bipolar disorder F31.9 ; Posttraumatic stress disorder F43.10 and Borderline personality disorder F60.3 [place] [address] [id number] [place] [address] 25747- 1166 September, Morbid obesity, unspecified obesity type E66.01 and Psoriasis L40.9 [place] [address] [place] [address] 30661- 5786 September, Bipolar disorder F31.9 ; Posttraumatic stress disorder F43.10 and Borderline personality disorder F60.3 [place] [address] [place] [address] 74248- 1822 September, Chronic pain G89.29 [place] [address] [address] [id number] [place] [address] 36897- 0088 Aug, Other acute nonsuppurative otitis media of right ear H65.191 and Morbid obesity, unspecified obesity type E66.01 [place] [address] [address]- 8599 Aug, Bipolar 1 disorder F31.9 ; Posttraumatic stress disorder F43.10 and Social anxiety disorder F40.10 [facility] [id number] [place] [address] 58996- 8207 Aug, Bipolar disorder F31.9 ; Posttraumatic stress disorder F43.10 and Borderline personality disorder F60.3 [facility] [id number] [place] [address] 90637- 0535 Jul, Morbid obesity due to excess calories E66.01 ; Gastro- esophageal reflux disease without esophagitis K21.9 and Chronic pain G89.29 [facility] [address] [id number] [place] [address] 76129- 5764 Jul, Morbid obesity due to excess calories E66.01 [facility] [address] [address] [id number] [place] [address] 74983- 2011 Jul, [place] [address] [address] [id number] [address] 42484- 2776 Jul, [facility] [id number] [address] 81877- 4354 Jul, Morbid obesity due to excess calories E66.01 [facility] [id number] [place] [address] 09808- 7205 Jul, Bipolar disorder F31.9 ; Posttraumatic stress disorder F43.10 and Borderline personality disorder F60.3 [facility] [id number] [place] [address] 52203- 9641 Jun, [facility] [id number] [address] 92564- 9544 Jun, Morbid obesity due to excess calories E66.01 [facility] [id number] [place] [address] 54957- 3651 Jun, [facility] [address] [address] [id number] [address] 92122- 1908 Jun, Morbid obesity, unspecified obesity type E66.01 [facility] [id number] [place] [address] 33672- 8406 Jun, Bipolar disorder F31.9 ; Posttraumatic stress disorder F43.10 and Borderline personality disorder F60.3 [facility] [address] [place] [address] 36718- 6667 Jun, [facility] [id number] [place] [address] 86887- 5803 Jun, [facility] [address] [id number] [place] [address] 99075- 4832 Jun, Acquired hypothyroidism E03.9 and Morbid obesity due to excess calories E66.01 [place] [address] [id number] [place] [address] 21416- 4145 May, Bipolar disorder F31.9 ; Posttraumatic stress disorder F43.10 and Borderline personality disorder F60.3 [place] [address] [id number] [place] [address] 57470- 0920 Apr, Bipolar 1 disorder F31.9 ; Posttraumatic stress disorder F43.10 and Social anxiety disorder F40.[address] [id number] [id number] Apr, Encounter for dental examination Z01.20 [facility] [address] [place] [address] 78492- 7639 Apr, [place] [address] [place] [address] 76432- 4278 Apr, Acquired hypothyroidism E03.9 [facility] [address] [id number] [place] [address] 88635- 9923 Apr, Acquired hypothyroidism E03.9 [place] [address] [id number] [place] [address] 78663- 9611 Apr, Bipolar disorder F31.9 ; Posttraumatic stress disorder F43.10 and Borderline personality disorder F60.3 [facility] [address] [place] [address] 20244- 8982 06 Dec, 2016 Acquired hypothyroidism E03.9 [facility] [address] [id number] [id number] Mar, Encounter for dental examination and cleaning without abnormal findings Z01.20 [facility] [address] [place] [address] 07427- 8113 08 Mar, 2016 [facility] [id number] [place] [address] 90567- 3461 Mar, Bipolar disorder F31.9 ; Posttraumatic stress disorder F43.10 and Borderline personality disorder F60.3 [facility] [id number] [place] [address] 17124- 1905 Mar, Essential (primary) hypertension I10 [place] [id number] [place] [address] 14978- 4431 Feb, [place] [id number] [address] 29925- 6234 Feb, [facility] [id number] [place] [address] 75226- 7148 Feb, Pelvic pain R10.2 ; Lipid screening Z13.220 ; Fatigue, unspecified type R53.83 and Weight gain R63.5 [place] [address] [place] [address] 49032- 3557 Feb, Bipolar disorder F31.9 ; Posttraumatic stress disorder F43.10 and Borderline personality disorder F60.3 [place] [address] [place] [address] 79680- 7645 Feb, [facility] [id number] [place] [address] 36218- 0653 Feb, [facility] [id number] [place] [address] 94527- 5292 30 Jan, 2016 Obstructive sleep apnea syndrome G47.33 [facility] [address] [address]- 8496 Jan, [facility] [address] [id number] [id number] Jan, Dental examination Z01.20 [facility] [address] [place] [address] 61225- 2595 Jan, Bipolar 1 disorder F31.9 ; Posttraumatic stress disorder F43.10 and Social anxiety disorder F40.10 [facility] [address] [place] [address] 48483- 8945 Jan, Bipolar disorder F31.9 ; Posttraumatic stress disorder F43.10 and Borderline personality disorder F60.3 [facility] [address] [place] [address] 36452- 1345 Jan, Sciatica of left side M54.32 [facility] [id number] [place] [address] 11935- 9434 Jan, [facility] [id number] [place] [address] 35118- 5180 Dec, [facility] [address] [place] [address] 50524- 4295 Dec, [facility] [id number] [place] [address] 00183- 8332 Dec, Bipolar disorder F31.9 ; Posttraumatic stress disorder F43.10 and Borderline personality disorder F60.3 [facility] [address] [address]- 0172 Nov, [facility] [address] [place] [address] 20911- 6824 Nov, Insomnia, unspecified type G47.00 [facility] [id number] [place] [address] 54042- 1824 Nov, Bipolar disorder F31.9 ; Posttraumatic stress disorder F43.10 and Borderline personality disorder F60.3 [facility] [address] [place] [address] 03385- 4991 Nov, [facility] [id number] [place] [address] 52253- 8368 Nov, [facility] [address] [place] [address] 87491- 6771 Oct, Bipolar disorder F31.9 ; Posttraumatic stress disorder F43.10 and Borderline personality disorder F60.3 [facility] [address] [address]- 0660 Oct, [facility] [id number] [place] [address] 59577- 7765 Oct, Essential (primary) hypertension I10 [facility] [id number] [place] [address] 21745- 9296 September, Bipolar 1 disorder F31.9 ; Posttraumatic stress disorder F43.10 and Social anxiety disorder F40.10 [facility] [address] [place] [address] 05917- 9145 September, Bipolar disorder F31.9 ; Posttraumatic stress disorder F43.10 and Borderline personality disorder F60.[address] [id number] [id number] September, Encounter for dental examination and cleaning without abnormal findings Z01.20 [facility] [address] [address]- 7862 September, [facility] [address] [address]- 5755 September, [facility] [address] [place] [address] 22895- 6713 Aug, [facility] [address] [place] [address] 68952- 4051 Aug, Bipolar disorder F31.9 ; Posttraumatic stress disorder F43.10 and Borderline personality disorder F60.3 [facility] [address] [address]- 3845 Aug, [facility] [address] [place] [address] 48344- 9084 Aug, [facility] [id number] [address]- 4248 Aug, [facility] [id number] [id number] Jul, Acute nasopharyngitis [common cold] J00 and Other viral agents as the cause of diseases classified elsewhere B97.89 [facility] [address] [place] [address] 72554- 7897 24 Jul, 2015 Chronic pain G89.29 and Allergic rhinitis J30.9 [facility] [address] [place] [address] 54015- 1752 24 Jul, 2015 Bipolar 1 disorder F31.9 ; Posttraumatic stress disorder F43.10 and Social anxiety disorder F40.10 [facility] [address] [place] [address] 55285- 4253 16 Jul, 2015 Bipolar 1 disorder F31.9 [facility] [address] [place] [address] 30229- 7294 16 Jul, 2015 Bipolar disorder F31.9 ; Posttraumatic stress disorder F43.10 and Borderline personality disorder F60.3 [facility] [address] [place] [address] 80727- 5093 14 Jul, 2015 [facility] [address] [address]- 6459 14 Jul, 2015 [facility] [address] [place] [address] 55643- 2752 11 Jul, 2015 [facility] [address] [place] [address] [phone] 10 Jul, 2015 Anxiety F41.9 [facility] [id number] [place] [id number] 10 Jul, 2015 Chronic pain G89.29 and Encounter for therapeutic drug level monitoring Z51.81 [facility] [id number] [place] [phone] Jul, Chronic pain G89.29 and Encounter for therapeutic drug level monitoring Z51.81 [facility] [id number] [place] [id number] Jul, [facility] [id number] [place] [phone] Jun, [facility] [id number] [place] [address] [address]- 0074 Jun, [facility] [id number] [place] [address] 08302- 9698 Jun, [facility] [id number] [place] [address] 76073- 9690 Jun, [facility] [id number] [place] [address] 98431- 1509 Jun, High risk medication use V58.69 [facility] [id number] [place] [address] 64614- 2299 Jun, [facility] [id number] [address] 57144- 4307 Jun, Bipolar 1 disorder F31.9 ; Overdose T50.901A and Chronic pain G89.29 [facility] [id number] [address] 25626- 8255 Jun, Bipolar disorder F31.9 ; Posttraumatic stress disorder F43.10 and Borderline personality disorder F60.3 [facility] [id number] [address] 15153- 5112 Jun, [facility] [id number] [place] [address] 02482- 1407 Jun, [facility] [id number] [place] [address] 90429- 0734 Jun, Keloid L91.0 [facility] [id number] [place] [address] 64926- 6825 Jun, [facility] [address] [address]- 0580 May, [facility] [id number] [place] [address] 10912- 7522 May, [facility] [id number] [address] 23101- 8819 May, Pelvic pain R10.2 [facility] [id number] [address] 44409- 3333 May, [facility] [id number] [address] 12961- 3712 May, Pain of left thumb M79.645 ; Incisional pain R20.8 ; Pelvic pain R10.2 and Essential hypertension I10 [facility] [id number] [address] 47474- 4360 May, [facility] [id number] [address] 47243- 6443 May, [address] [id number] [id number] May, Dental examination Z01.20 and Necrosis of pulp K04.1 [facility] [address] [address]- 6047 Apr, [facility] [id number] [address] 19643- 8113 Apr, [facility] [address] [address]- 3711 Apr, [facility] [id number] [place] [address] 57532- 6729 Apr, [facility] [address] [address]- 7324 Apr, [facility] [id number] [place] [address] 47418- 3705 Apr, [facility] [address] [facility] [id number] [address]- 2038 Apr, 2014 [facility] [address] [facility] [id number] [place] [address]- 5526 Apr, 2014 [facility] [address] [facility] [id number] [place] [address]- 8876 Mar, [facility] [address] [facility] [id number] [place] [address], [place] [address]- 5334 Mar, [facility] [address] [facility] [id number] [place] [address]- 8971 Mar, [facility] [address] [facility] [id number] [place] [address], [place] 3856 Mar, [facility] [address] [facility] [id number] [place] 2111 Feb, [facility] [address] [facility] [id number] [place] [address] 13255- 0427 Feb, [facility] [address] [facility] [id number] [address]- 7620 Feb, [facility] [address] [facility] [id number] [address]- 8274 Feb, [facility] [address] [facility] [id number] [place] [address]- 1024 Feb, [facility] [address] [facility] [id number] [address]- 1916 Feb, [facility] [address] [facility] [id number] [place] [address]- 4661 Feb, [facility] [address] 6181 Feb, Dermatofibroma of left lower leg D23.72 [facility] [address] [facility] [id number] [place]47[place] 6971 Feb, Hematochezia 578.1 ; Low back pain M54.5 ; High risk medication use V58.69 ; Cervicalgia M54.2 and Anxiety F41.9 [facility] [address] [id number] [id number] Feb, Dental examination Z01.20 ; Pulpitis K04.0 and Dental caries, unspecified K02.9 [facility] [address] [id number] [id number] Feb, Dental examination Z01.20 [facility] [id number] [address] 12061- 4086 30 Jan, 2015 [facility] [address] [facility] [id number] [address] [address] 57903- 8520 Jan, [facility] [id number] [address] 54785- 7824 Jan, [facility] [id number] [address] 54508- 5522 Jan, [facility] [id number] [address] 38776- 6298 Dec, [facility] [id number] [address] 09451- 5067 Dec, [facility] [id number] [address] 59568- 1976 Dec, [facility] [id number] [address] 84860- 7512 Dec, [facility] [address] [id number] [address]- 4600 Dec, [facility] [id number] [address] 93673- 9434 Dec, [facility] [address] [facility] [id number] [address]- 0023 Dec, [facility] [id number] [place] [address] 52088- 8864 Dec, [facility] [address] [id number] [id number] Nov, Encounter for removal of sutures V58.32 [facility] [address] [address]- 4546 Nov, [facility] [address] [address]- 5354 Nov, [facility] [address] [address]- 1853 Nov, [facility] [address] [address]- 6008 Nov, [facility] [address] [address]- 1972 Nov, [facility] [address]100[place] [address]- 9309 Nov, [facility] [address] [address]- 9775 Nov, [facility] [address] [address]- 9278 Nov, Dermatofibroma 216.9 [facility] [address]100[place] [address]- 4643 Nov, [facility] [address] [id number] [address]- 4211 Nov, [facility] [address] [id number] [address]- 4416 Oct, [facility] [address] [id number] [address]- 8381 Oct, Hematochezia 578.1 ; Abscess 682.9 ; GERD (gastroesophageal reflux disease) 530.81 ; Visual disturbance of one eye 368.9 and High risk medication use V58.69 [facility] [address] [id number] [address]- 0630 Oct, [facility] [address] [id number] [place] [address]- 3324 Oct, [facility] [address] [id number] [place] [address]- 6740 Oct, [facility] [address] [id number] [place] [address]- 0138 September, [facility] [address] [id number] [place] [address]- 8026 September, [facility] [address] [id number] [place] [address]- 2060 September, [facility] [address] [id number] [place] [address]- 0602 September, [facility] [address] [id number] [place] [address]- 1294 September, [facility] [address] [facility] [id number] [place] [address]- 4567 September, Colon cancer screening V76.51 [facility] [address] [id number] [place] [address]- 3990 September, [facility] [address] [id number] [place] [address]- 9971 Aug, [facility] [address] [id number] [place] [address]- 0117 Aug, [facility] [place] [facility] [address] [id number] [address]- 5883 Jul, [facility] [place] [facility] [address] [id number] [place] [address]- 7583 Jul, [facility] [place] [facility] [address] [id number] [place] [address]- 7199 Jul, [facility] [place] [facility] [address] [id number] [place] [address]- 9570 Jul, [facility] [address] [id number] [place] [address]- 6646 Jun, [facility] [place] [facility] [address] [id number] [place] [address]- 2266 Jun, [facility] [place] [facility] [address] [id number] [place] [address]- 5816 Jun, [facility] [place] [facility] [address] [id number] [place] [address]- 1136 Jun, [facility] [place] [facility] [address] [id number] [place] [address]- 0317 Jun, [facility] [place] [facility] [address] [id number] [place] [address]- 6046 Jun, [facility] [place] [facility] [address] [facility] [id number] [place] [address]- 9346 May, [facility] [place] [facility] [address] [id number] [place] [address]- 6561 May, [facility] [place] [facility] [address] [id number] [place] [address]- 0355 May, [facility] [place] [facility] [address] [id number] [place] [address]- 7222 May, [facility] [place] [facility] [address] [facility] [id number] [place] [address]- 2841 May, [facility] [place] [facility] [address] [id number] [place] [address]- 4141 May, [facility] [place] [facility] [address] [id number] [place] [address]- 9033 May, [facility] [place] [facility] [address] [id number] [place] [address]- 8113 May, [facility] [place] [facility] [address] [id number] [place] [address]- 5726 Apr, [facility] [place] [facility] [address] [id number] [place] [address]- 8317 Apr, [facility] [place] [facility] [address] [id number] [place] [address]- 6664 Apr, [facility] [place] [facility] [address] [id number] [place] [address]- 4712 Apr, [facility] [place] [facility] [address] [id number] [place] [address]- 9130 Apr, [facility] [place] [facility] [address] [id number] [place] [address]- 8742 Apr, [facility] [place] [facility] [address] [id number] [place] [address]- 2399 Apr, [facility] [place] [facility] [address] [id number] [place] [address]- 6451 Apr, [facility] [place] [facility] [address] [id number] [place] [address]- 1163 Mar, [facility] [place] [facility] [address] [id number] [place] [address]- 8084 Mar, [facility] [place] [facility] [address] [id number] [place] [address]- 5545 Mar, [facility] [place] [facility] [address] [id number] [place] [address]- 1656 Mar, [facility] [place] [facility] [address] [id number] [address]- 6586 Mar, [facility] [place] [facility] [address] [id number] [address]- 9981 Mar, [facility] [place] [facility] [address] [id number] [place] [address]- 9617 Mar, [facility] [place] [facility] [address] [id number] [place] [address]- 4888 Mar, [facility] [place] [facility] [address] [id number] [place] [address]- 8334 Mar, [facility] [place] [facility] [address] [id number] [place] [address]- 4944 Mar, [facility] [place] [facility] [address] [id number] [place] [address]- 6594 Feb, [facility] [place] [facility] [address] [id number] [place] [address]- 1422 Feb, [facility] [place] [facility] [address] [id number] [place] [address]- 8230 Jan, [facility] [place] [facility] [address] [id number] [place] [address]- 9491 Jan, [facility] [place] [facility] [address] [id number] [place] [address]- 3932 Jan, [facility] [place] [facility] [address] [id number] [place] [address]- 5428 Jan, [facility] [place] [facility] [address] [id number] [place] [address]- 4583 Dec, [facility] [place] [facility] [address] [id number] [place] [address]- 1929 Dec, [facility] [place] [facility] [address] [id number] [place] [address]- 5898 Dec, [facility] [place] [facility] [address] [id number] [place] [address]- 2594 Dec, [facility] [place] [facility] [address] [id number] [place] [address]- 6795 Dec, [facility] [place] [facility] [address] [id number] [place] [address]- 0481 Dec, [facility] [place] [facility] [address] [id number] [place] [address]- 5547 Nov, [facility] [place] [facility] [address] [id number] [place] [address]- 0456 Nov, [facility] [place] [facility] [address] [id number] [place] [address]- 1407 Oct, [facility] [place] [facility] [address] [id number] [place] [address]- 5984 Oct, [facility] [place] [facility] [address] [id number] [place] [address]- 9193 Oct, [facility] [place] [facility] [address] [id number] [place] [address]- 8407 Oct, [facility] [place] [facility] [address] [id number] [place] [address]- 8088 September, [facility] [place] [facility] [address] [id number] [place] [address]- 2646 September, [facility] [place] [facility] [address] [id number] [place] [address]- 2499 September, [facility] [place] [facility] [address] [id number] [place] [address]- 9329 September, [facility] [place] [facility] [address] [id number] [place] [address]- 8489 September, [facility] [place] [facility] [address] [id number] [place] [address]- 2750 September, [facility] [place] [facility] [address] [id number] [place] [address]- 9850 September, [facility] [place] [facility] [address] [id number] [place] [address]- 9977 September, [facility] [place] [facility] [address] [id number] [place] [address]- 1328 Aug, [facility] [place] [facility] [address] [id number] [place] [address]- 7846 Aug, [facility] [place] [facility] [address] [id number] [place] [address]- 1057 Aug, [facility] [place] [facility] [address] [id number] [place] [address]- 6624 Aug, [facility] [place] [facility] [address] [id number] [address]- 6496 Aug, [facility] [place] [facility] [address] [id number] [place] 0865 Aug, [facility] [place] [facility] [address] [id number] [place] [address]- 9437 Jul, [facility] [place] [facility] [address] [facility] [id number] [place] [address]- 3232 Jul, [facility] [place] [facility] [address] [id number] [place] [address]- 0694 Jul, [facility] [place] [facility] [address] [facility] [id number] [place] [address]- 6358 Jul, [facility] [place] [facility] [address] [facility] [id number] [place] [address]- 0446 Jun, [facility] [place] [facility] [address] [facility] [id number] [place] [address]- 8491 Jun, [facility] [place] [facility] [address] [id number] [place] [address]- 1833 Jun, [facility] [place] [facility] [address] [facility] [id number] [place] [address]- 5008 Jun, [facility] [place] [facility] [address] [facility] [id number] [place] [address]- 8702 Jun, [facility] [place] [facility] [address] [facility] [id number] [place] [address]- 7017 Jun, [facility] [place] [facility] [address] [id number] [address]- 1231 May, [facility] [place] [facility] [address] [id number] [address]- 2689 May, [facility] [place] [facility] [address] [id number] [place] [address]- 9997 May, [facility] [place] [facility] [address] [facility] [id number] [place] [address]- 0895 May, [facility] [place] [facility] [address] [id number] [place] [address]- 2272 May, [facility] [address] [id number] [place] [address]- 6636 May, [facility] [address] [id number] [place] [address]- 2546 May, [facility] [address] [id number] [place] [address]- 5336 May, [facility] [address] [id number] [place] [address]- 1951 16 Apr, 2013 [facility] [place] [address] [place] [id number] Apr, [facility] [address] [id number] [place] [address]- 7146 16 Apr, 2013 [facility] [address] [id number] [place] [address]- 0952 Apr, [facility] [address] [id number] [place] [address]- 9611 Apr, [facility] [address] [id number] [place] [address]- 6238 Apr, [facility] [address] [id number] [place] [address]- 8647 05 Apr, 2013 [facility] [address] [id number] [place] [address]- 6896 05 Apr, 2013 [facility] [address] [id number] [place] [address]- 4856 04 Apr, 2013 [facility] [address] [id number] [place] [address] Mar, [facility] [address] [id number] [place] [address] Mar, [facility] [address] [id number] [place] [address] Mar, [facility] [address] [id number] [place] [address] Mar, [facility] [place] [facility] [address] [id number] [place] [address] Mar, [facility] [place] [facility] [address] [id number] [place] [address] Feb, [facility] [place] [facility] [address] [id number] [place] [address] Feb, [facility] [place] [facility] [address] [id number] [place] [address] Feb, [facility] [place] [facility] [address] [id number] [place] [address] Feb, [facility] [place] [facility] [address] [id number] [place] [address] Jan, [facility] [place] [facility] [address] [id number] [place] [address] Jan, [facility] [place] [facility] [address] [id number] [place] [address] Jan, [facility] [place] [facility] [address] [id number] [address] Dec, [facility] [place] [facility] [address] [id number] [address] Dec, [facility] [place] [facility] [address] [id number] [address] Dec, [facility] [address] [id number] [place] [id number] Nov, [facility] [address] [id number] [place] [id number] Oct, [facility] [place] [facility] [address] [id number] [place] [address] Oct, [facility] [place] [facility] [address] [id number] [address] September, [facility] [address] [id number] [place] [address] September, [facility] [address] [id number] [place] [address] September, [facility] [address] [id number] [place] [address] September, [facility] [address] [id number] [place] [address] September, [facility] [address] [id number] [place] [address] Jul, [facility] [address] [id number] [place] [address] Jul, [facility] [address] [id number] [place] [address] Jul, [facility] [address] [id number] [place] [address] Jul, [facility] [address] [id number] [place] [address] Jun, [facility] [address] [id number] [place] [address] Jun, [facility] [address] [id number] [place] [address] Jun, [facility] [place] [facility] [address] [id number] [place] [address] Jun, [facility] [place] [facility] [address] [id number] [place] [address] May, [facility] [place] [facility] [address] [id number] [place] [address] Mar, [facility] [place] [facility] [address] [id number] [place] [address] Mar, [facility] [place] [facility] [address] [facility] [id number] [place] [address] Mar, [facility] [place] [facility] [address] [facility] [id number] [place] [address] Mar, [facility] [place] [facility] [address] [facility] [id number] [place] [address] Mar, [facility] [place] [facility] [address] [facility] [id number] [place] [address] Mar, [facility] [place] [facility] [address] [facility] [id number] [place] [address] Mar, [facility] [place] [facility] [address] [facility] [id number] [place] [address] Mar, [facility] [place] [facility] [address] [facility] [id number] [address] Feb, [facility] [place] [facility] [address] [facility] [id number] [place] [address] Feb, [facility] [place] [facility] [address] [facility] [id number] [place] [address] Feb, [facility] [place] [facility] [address] [facility] [id number] [place] [address] Feb, [facility] [place] [facility] [address] [facility] [id number] [place] [address] Feb, [facility] [place] [facility] [address] [facility] [id number] [place] [address] Feb, [facility] [place] [facility] [address] [facility] [id number] [place] [address] Feb, [facility] [address] [id number] [id number] Jan, [facility] [address] [id number][place] [id number] Dec, [facility] [address] [facility] [id number] [id number] Dec, [facility] [place] [facility] [address] [facility] [id number] [place] [address] 30 Nov, 2011 [facility] [address] [id number] [place] [place] [id number] Nov, [facility] [place] [facility] [address] [id number] [place] [address] Oct, [facility] [address] [id number] [place] [address] 15 Jul, 2011 [facility] [place] [facility] [address] [id number] [place] [address] Jul, [facility] [address] [id number] [place] [address], [place] [address] May, [facility] [place] [facility] [address] [id number] [place] [address] May, [facility] [address] [id number] [address] Nov, [facility] [place] [facility] [address] [id number] [place] [address] Mar, [facility] [address] [id number] [place] [address] Dec, [facility] [place] [facility] [address] [id number] [place] [address] Nov, [facility] [place] [facility] [address] [id number] [place] [address] Aug, [facility] [place] [facility] [address] [id number] [address] Apr, [facility] [place] [facility] [address] [id number] [place] [address] Apr, [facility] [place] [facility] [address] [id number] [address] 30 Mar, 2009 [facility] [place] [facility] [address] [id number] [place] [address] Feb, [facility] [place] [facility] [address] [facility] [id number] [place] [address] September, [facility] [address] [facility] [id number] [place] [address] Jun, [facility] [address] [facility] [id number] [place] [address] Mar, IMMUNIZATIONS No Known Immunizations SOCIAL HISTORY Never Assessed REASON FOR VISIT f/u PLAN OF CARE Activity Details Follow Up Next available Reason: F/U VITAL SIGNS MEDICATIONS Unknown Medications RESULTS No Results PROCEDURES Procedure Date Ordered Result Body Site Psychotherapy, patient &/family, 30 minutes, established patient October 24, 2017 INSTRUCTIONS MEDICATIONS ADMINISTERED No [...] hernia Hospitalization History Went by ambulance to [facility] as [facility] 05/2015 Hospitalization History [facility] for [facility] psych hold 05/2015
--- OUTSIDE RECORDS SUMMARY | 2018-03-15 10:57 | XMS REPORT ---
Author Author HERBERT MCGOWAN Organization [facility] Address [facility] [place] [address] Care Team Providers Care Oil Well Driller Name Role Phone HERBERT MCGOWAN Unavailable PROBLEMS Type Condition ICD9-CM Code ZSP94-UE Code Onset Dates Condition Status SNOMED Code Problem Psoriasis L40.9 Active 0659671 Problem Relationship problem with family member Z63.8 Active 117097301 Problem Essential hypertension I10 Active 54995911 Problem Anxiety F41.9 Active 39276091 Problem Visual disturbance H53.9 Active 21462934 Problem Rheumatoid arthritis involving multiple sites with positive rheumatoid factor M05.79 Active 355996499 Problem Bilateral low back pain with sciatica, sciatica laterality unspecified M54.40 Active 983417286 Problem Hypokalemia E87.6 Active 31927227 Problem Lumbago with sciatica, left side M54.42 Active 288707036 Problem Other chronic pain G89.29 Active 16683046 Problem 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 Active 588183965 Problem Blindness of right eye H54.40 Active 748915799 Problem Posttraumatic stress disorder F43.10 Active 98817772 Problem Overdose T50.901A Active 92724369 Problem Bipolar disorder F31.9 Active 26157556 Problem Borderline personality disorder F60.3 Active 11595646 Problem Obstructive sleep apnea G47.33 Active 60870073 Problem Acquired hypothyroidism E03.9 Active 504386625 Problem Pelvic pain R10.2 Active 14715652 Problem Chronic pain G89.29 Active 65955769 Problem Gastro-esophageal reflux disease without esophagitis K21.9 Active 251450491 Problem Anemia due to other cause, not classified D64.89 Active 442684505 Problem Social anxiety disorder F40.10 Active 96328014 Problem Morbid obesity, unspecified obesity type E66.01 Active 773028933 ALLERGIES No Information ENCOUNTERS Encounter Location Date Diagnosis [facility] [address] [address] Feb, [place] [id number] [place] [address] 25703- 1465 Dec, [place] [address], [place] [address] Dec, [address] [id number] [id number] Dec, Dental examination Z01.20 [place] [address] [place] [id number] [place] [address] 80562- 1636 Nov, Bipolar disorder F31.9 ; Posttraumatic stress disorder F43.10 and Borderline personality disorder F60.3 [place] [address] [place] [address] 69980- 1851 Nov, Rheumatoid arthritis involving multiple sites with positive rheumatoid factor M05.79 ; Dysuria R30.0 and Blindness of right eye H54.40 [place] [address] [place] [address] 88212- 1482 Nov, Bipolar disorder F31.9 ; Posttraumatic stress disorder F43.10 ; Social anxiety disorder F40.10 and Relationship problem with family member Z63.8 [place] [address] [address] 67[address] Nov, [place] [id number] [place] [address] 90142- 0654 Nov, [place] [address] [place] [id number] [place] [address] 79536- 5018 Nov, 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 ; Adverse effect of antineoplastic and immunosuppressive drugs, initial encounter T45.1X5A ; Anemia , unspecified D64.9 and BMI 40.0-44.9, adult Z68.41 [place] [address] [place] [address] 18220- 2628 Nov, Anemia due to other cause, not classified D64.89 [place] [address] [place] [id number] [place] [address] 71449- 9961 Oct, Adverse effect of drug, initial encounter T50.905A and Acute anemia D64.9 [facility] [id number] [place] [address] 14489- 4402 Oct, Anemia due to other cause, not classified D64.89 ; Dysuria R30.0 and Urinary tract infection without hematuria, site unspecified N39.0 [facility] [address] [place] [id number] [place] [address] 73808- 9292 Oct, [facility] [id number] [place] [address] 54026- 0682 Oct, [facility] [address] [place] [id number] [place] [address] 35772- 7208 Oct, 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 [facility] [id number] [place] [id number] Oct, [facility] [address] [place] [id number] [place] [address] 96106- 0667 Oct, [facility] [address] [id number] [place] [address] 80442- 9550 Oct, [facility] [id number] [place] [address] 46497- 8309 Oct, Bipolar disorder F31.9 ; Posttraumatic stress disorder F43.10 and Borderline personality disorder F60.3 [facility] [address] [place] [id number] [place] [address] 93327- 7153 Oct, Rheumatoid arthritis involving multiple sites with positive rheumatoid factor M05.79 ; 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 and Anxiety F41.9 [facility] [id number] [place] [address] 15326- 8061 Oct, [facility] [address] [address] [id number] [place] [address] 75509- 8943 September, 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 [facility] [address] [place] [address] [place] [address] 2989 September, Bipolar disorder F31.9 ; Posttraumatic stress disorder F43.10 and Borderline personality disorder F60.3 [place] [address] [place] [id number] [place] [address] 76116- 0521 Aug, BMI 40.0-44.9, adult Z68.41 ; Bipolar disorder F31.9 ; Posttraumatic stress disorder F43.10 and Social anxiety disorder F40.10 [place] [address] 62020- 0194 Aug, Bipolar disorder F31.9 ; Posttraumatic stress disorder F43.10 and Borderline personality disorder F60.3 [place] [address] 84797- 2836 Aug, 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 [place] [address] [address]- 1969 Jul, Bipolar disorder F31.9 ; Posttraumatic stress disorder F43.10 and Borderline personality disorder F60.3 [place] [address] 82089- 1575 Jul, [place] [address] 69030- 5305 Jun, Bipolar disorder F31.9 ; Posttraumatic stress disorder F43.10 and Borderline personality disorder F60.3 [place] [address] [place] [id number] [place] [address] 41260- 5356 Jun, Blindness of right eye H54.40 and Acquired hypothyroidism E03.9 [place] [address] [place] [id number] [place] [address] 07259- 2525 Jun, [place] [address] [place] [id number] [place] [address] May, Posttraumatic stress disorder F43.10 ; Social anxiety disorder F40.10 and Bipolar disorder F31.9 [place] [address] [place] [address]- 2546 May, Bipolar disorder F31.9 ; Posttraumatic stress disorder F43.10 and Borderline personality disorder F60.3 [facility] [address], [place] [address]- 8985 May, [facility] [address], [place] [address] May, [facility] [address] [place] [address] 49574- 5447 Apr, Bipolar disorder F31.9 ; Posttraumatic stress disorder F43.10 and Borderline personality disorder F60.3 [address] [id number] Apr, [facility] [address] [place] [address] 52279- 3510 Apr, [facility] [address] [place] [address] 53082- 6876 Mar, Hydradenitis L73.2 [facility] [address] [place] [address] 35719- 2430 15 Mar, 2017 Lumbago with sciatica, left side M54.42 ; Other chronic pain G89.29 ; Morbid obesity, unspecified obesity type E66.01 ; Hydradenitis L73.2 and BMI 40.0-44.9, adult Z68.41 [facility] [address] [place] [address] 83240- 0608 Mar, Bipolar disorder F31.9 ; Posttraumatic stress disorder F43.10 and Borderline personality disorder F60.3 [facility] [address], [place] [address] 8204 Mar, Social anxiety disorder F40.10 ; Bipolar disorder F31.9 and Relationship problem with family member Z63.8 [facility] [address], [place] [address] 97[address] Mar, [address] [id number][place] [id number] Mar, Dental examination Z01.20 [facility] [address], [place] [address]- 0999 Mar, [facility] [id number] [place] [address] 58237- 2188 Feb, Bipolar disorder F31.9 ; Posttraumatic stress disorder F43.10 and Borderline personality disorder F60.3 [facility] [address] [address] Feb, [facility] [id number] [place] [address] 61942- 7216 14 Jan, 2017 Bipolar disorder F31.9 ; Posttraumatic stress disorder F43.10 and Borderline personality disorder F60.[address] [place] [place] [address] [id number] [id number] Jan, [facility] [id number] [place] [address] 74297- 9270 Jan, [facility] [address] [id number] Jan, [facility] [id number] [place] [address] 10954- 7555 Dec, Bipolar disorder F31.9 ; Posttraumatic stress disorder F43.10 and Borderline personality disorder F60.3 [facility] [address] [place] [address] 96006- 9461 Dec, [facility] [id number] [place] [address] 84249- 1170 Dec, [facility] [address] [id number] [address] Dec, [facility] [id number] [place] [address] 59145- 3157 Nov, Bipolar 1 disorder F31.9 ; Posttraumatic stress disorder F43.10 and Social anxiety disorder F40.10 [facility] [address] [place] [address] 64983- 0943 Nov, Bipolar disorder F31.9 ; Posttraumatic stress disorder F43.10 and Borderline personality disorder F60.3 [place] [address] [place] [address] 50617- 2427 Nov, Morbid obesity, unspecified obesity type E66.01 [place] [address] [place] [address] 68041- 8795 Nov, [address] [id number][place] [address] Oct, Encounter for dental examination and cleaning without abnormal findings Z01.20 [place] [address] [place] [id number] [place] [address] 11630- 1894 Oct, Morbid obesity, unspecified obesity type E66.01 and Acute seasonal allergic rhinitis due to pollen J30.1 [place] [address] [place] [id number] [place] [address] 29279- 8472 Oct, Bipolar disorder F31.9 ; Posttraumatic stress disorder F43.10 and Borderline personality disorder F60.3 [place] [address] [place] [address] 84564- 0228 September, Morbid obesity, unspecified obesity type E66.01 and Psoriasis L40.9 [place] [address] [place] [address] 54992- 8792 September, Bipolar disorder F31.9 ; Posttraumatic stress disorder F43.10 and Borderline personality disorder F60.3 [place] [address] [place] [address] 99440- 5932 September, Chronic pain G89.29 [place] [address] [place] [id number] [place] [address] 21144- 0336 Aug, Other acute nonsuppurative otitis media of right ear H65.191 and Morbid obesity, unspecified obesity type E66.01 [place] [address] [place] [address] 36169- 0632 Aug, Bipolar 1 disorder F31.9 ; Posttraumatic stress disorder F43.10 and Social anxiety disorder F40.10 [facility] [address] [place] [id number] [place] [address] 84170- 5955 Aug, Bipolar disorder F31.9 ; Posttraumatic stress disorder F43.10 and Borderline personality disorder F60.3 [facility] [address] [place] [id number] [place] [address] 84924- 5021 Jul, Morbid obesity due to excess calories E66.01 ; Gastro- esophageal reflux disease without esophagitis K21.9 and Chronic pain G89.29 [facility] [address] [place] [id number] [place] [address] 92017- 1981 Jul, Morbid obesity due to excess calories E66.01 [facility] [address] [place] [id number] [place] [address] 41483- 1710 Jul, [place] [address] [place] [id number] [place] [address] 51663- 1949 Jul, [facility] [address] [id number] [place] [address] 14852- 1121 Jul, Morbid obesity due to excess calories E66.01 [facility] [address] [place] [id number] [place] [address] 78533- 9362 Jul, Bipolar disorder F31.9 ; Posttraumatic stress disorder F43.10 and Borderline personality disorder F60.3 [facility] [address] [place] [id number] [place] [address] 59954- 0471 Jun, [facility] [address] [place] [id number] [place] [address] 28181- 0318 Jun, Morbid obesity due to excess calories E66.01 [facility] [address] [place] [id number] [place] [address] 57485- 8668 Jun, [facility] [address] [id number] [place] [address] 13748- 9461 Jun, Morbid obesity, unspecified obesity type E66.01 [facility] [address] [place] [address]- 9747 Jun, Bipolar disorder F31.9 ; Posttraumatic stress disorder F43.10 and Borderline personality disorder F60.3 [facility] [id number] [place] [address] 22153- 6855 Jun, [facility] [address] [id number] [place] [address] 23361- 5297 Jun, [facility] [address] [place] [id number] [place] [address] 54916- 6953 Jun, Acquired hypothyroidism E03.9 and Morbid obesity due to excess calories E66.01 [facility] [address] [place] [id number] [place] [address] 20797- 5618 May, Bipolar disorder F31.9 ; Posttraumatic stress disorder F43.10 and Borderline personality disorder F60.3 [place] [address] [place] [id number] [place] [address] 80737- 8221 Apr, Bipolar 1 disorder F31.9 ; Posttraumatic stress disorder F43.10 and Social anxiety disorder F40.[address] [place] [place] [address] [id number] [id number] Apr, Encounter for dental examination Z01.20 [facility] [id number] [place] [address] 84843- 8367 Apr, [facility] [address] [id number] [place] [address] 05235- 1263 Apr, Acquired hypothyroidism E03.9 [facility] [id number] [place] [address] 51653- 4780 Apr, Acquired hypothyroidism E03.9 [facility] [address] [place] [id number] [place] [address] 30250- 4707 Apr, Bipolar disorder F31.9 ; Posttraumatic stress disorder F43.10 and Borderline personality disorder F60.3 [facility] [id number] [place] [address] 67283- 9017 Apr, Acquired hypothyroidism E03.[address] [facility] [address] [id number] [id number] Mar, Encounter for dental examination and cleaning without abnormal findings Z01.20 [facility] [address], [place] [address]- 3551 08 Mar, 2016 [facility] [address] [place] [id number] [place] [address] 43575- 1765 Mar, Bipolar disorder F31.9 ; Posttraumatic stress disorder F43.10 and Borderline personality disorder F60.3 [place] [address] [place] [id number] [place] [address] 89033- 4373 Mar, Essential (primary) hypertension I10 [place] [address] [place] [id number] [place] [address] 87115- 9369 Feb, [place] [address] [place] [id number] [place] [address] 59872- 2264 Feb, [facility] [address] [id number] [place] [address] 44822- 8516 Feb, Pelvic pain R10.2 ; Lipid screening Z13.220 ; Fatigue, unspecified type R53.83 and Weight gain R63.5 [place] [address], [place] [address]- 4566 Feb, Bipolar disorder F31.9 ; Posttraumatic stress disorder F43.10 and Borderline personality disorder F60.3 [place] [address] [place] [address] 75599- 5576 Feb, [facility] [id number] [place] [address] 12974- 6640 Feb, [place] [address] [place] [id number] [place] [address] 49943- 8087 30 Jan, 2016 Obstructive sleep apnea syndrome G47.33 [facility] [address], [place] [address]- 6941 Jan, [facility] [address] [id number] [id number] Jan, Dental examination Z01.20 [facility] [address] [place] [address] 79273- 5489 Jan, Bipolar 1 disorder F31.9 ; Posttraumatic stress disorder F43.10 and Social anxiety disorder F40.10 [facility] [address], [place] [address]- 6363 Jan, Bipolar disorder F31.9 ; Posttraumatic stress disorder F43.10 and Borderline personality disorder F60.3 [facility] [address] [place] [address] 08827- 4101 Jan, Sciatica of left side M54.32 [facility] [address], [place] [address]- 3851 Jan, [facility] [id number] [place] [address] 29757- 4523 Dec, [facility] [address], [place] [address]- 1550 Dec, [facility] [address] [place] [address] 55252- 3840 Dec, Bipolar disorder F31.9 ; Posttraumatic stress disorder F43.10 and Borderline personality disorder F60.3 [facility] [address], [place] [address]- 7704 Nov, [facility] [address], [place] [address]- 1021 Nov, Insomnia, unspecified type G47.00 [facility] [id number] [place] [address] 87892- 7884 Nov, Bipolar disorder F31.9 ; Posttraumatic stress disorder F43.10 and Borderline personality disorder F60.3 [facility] [address], [place] [address]- 1060 Nov, [facility] [id number] [address]- 6088 Nov, [facility] [id number] [place] [address] 59825- 1958 Oct, Bipolar disorder F31.9 ; Posttraumatic stress disorder F43.10 and Borderline personality disorder F60.3 [facility] [address] [place] [address] 79147- 1701 Oct, [facility] [id number] [place] [address] 62766- 7934 Oct, Essential (primary) hypertension I10 [facility] [id number] [place] [address] 51472- 5458 September, Bipolar 1 disorder F31.9 ; Posttraumatic stress disorder F43.10 and Social anxiety disorder F40.10 [facility] [id number] [place] [address] 74405- 6161 September, Bipolar disorder F31.9 ; Posttraumatic stress disorder F43.10 and Borderline personality disorder F60.[address] [id number] [id number] September, Encounter for dental examination and cleaning without abnormal findings Z01.20 [facility] [id number] [place] [address] 43843- 5301 September, [facility] [id number] [place] [address] 04731- 2696 September, [facility] [id number] [place] [address] 07398- 3825 Aug, [facility] [id number] [place] [address] 61642- 7527 Aug, Bipolar disorder F31.9 ; Posttraumatic stress disorder F43.10 and Borderline personality disorder F60.3 [facility] [id number] [place] [address] 25097- 5287 Aug, [facility] [id number] [place] [address] 20149- 7986 Aug, [facility] [id number] [address]- 4098 Aug, [facility] [id number] [id number] Jul, Acute nasopharyngitis [common cold] J00 and Other viral agents as the cause of diseases classified elsewhere B97.89 [facility] [id number] [place] [address] 96893- 9217 24 Jul, 2015 Chronic pain G89.29 and Allergic rhinitis J30.9 [facility] [address] [place] [address] 00622- 6787 24 Jul, 2015 Bipolar 1 disorder F31.9 ; Posttraumatic stress disorder F43.10 and Social anxiety disorder F40.10 [place] [id number] [place] [address] 08748- 9292 16 Jul, 2015 Bipolar 1 disorder F31.9 [facility] [address] [place] [address] 15604- 3885 16 Jul, 2015 Bipolar disorder F31.9 ; Posttraumatic stress disorder F43.10 and Borderline personality disorder F60.3 [place] [address] [place] [address] 63129- 1227 14 Jul, 2015 [place] [id number] [place] [address] 05181- 1744 14 Jul, 2015 [place] [id number] [place] [address] 78426- 3721 11 Jul, 2015 [facility] [id number] [place] [address] 97462- 4445 10 Jul, 2015 Anxiety F41.9 [place] [id number] [place] [address] 69280- 3847 10 Jul, 2015 Chronic pain G89.29 and Encounter for therapeutic drug level monitoring Z51.81 [facility] [id number] [place] [address] 12567- 6866 Jul, Chronic pain G89.29 and Encounter for therapeutic drug level monitoring Z51.81 [facility] [id number] [place] [address] 68642- 1694 Jul, [facility] [id number] [place] [address] 64255- 3279 Jun, [facility] [id number] [place] [address] 82775- 3358 Jun, [facility] [id number] [place] [address] 25508- 8483 Jun, [facility] [id number] [place] [address] 63548- 5461 Jun, [facility] [id number] [place] [address] 36228- 0951 Jun, High risk medication use V58.69 [facility] [id number] [place] [address] [phone] Jun, [facility] [id number] [place] [address] [phone] Jun, Bipolar 1 disorder F31.9 ; Overdose T50.901A and Chronic pain G89.29 [facility] [id number] [place] [address] [id number] 7038 Jun, Bipolar disorder F31.9 ; Posttraumatic stress disorder F43.10 and Borderline personality disorder F60.3 [facility] [id number] [place] [address] 72696- 1943 Jun, [facility] [id number] [place] [address] 50559- 2965 Jun, [facility] [id number] [place] [address] 40753- 1070 Jun, Keloid L91.0 [facility] [id number] [place] [address] 33538- 7861 Jun, [facility] [address], [place] [address] 3565 May, [facility] [id number] [place] [address] 42436- 0432 May, [facility] [address], [place] [address] 9198 May, Pelvic pain R10.2 [facility] [id number] [place] [address] 34702- 4789 May, [facility] [id number] [place] [address] 42635- 7199 May, Pain of left thumb M79.645 ; Incisional pain R20.8 ; Pelvic pain R10.2 and Essential hypertension I10 [facility] [address], [place] [address] 6710 May, [facility] [address], [place] [address]105 May, [address] [id number] [id number] May, Dental examination Z01.20 and Necrosis of pulp K04.1 [facility] [address], [place] [address]- 1232 Apr, [facility] [address], [place] [address] 3921 Apr, [facility] [address], [place] [address]- 2672 Apr, [facility] [id number] [place] [address] 63026- 4242 Apr, [facility] [address], [place] [address]- 0538 Apr, [facility] [address], [place] [address]- 9063 Apr, [facility] [address] [id number], [place] [address] 8373 Apr, [facility] [address] [facility] [id number], [place] [address] 5166 Apr, [facility] [address] [facility] [id number], [place] [address]- 1259 Mar, [facility] [address] [facility] [id number] [place] [address], [place] [address]- 0903 Mar, [facility] [address] [id number] [place] [address]- 9304 Mar, [facility] [address] [facility] [id number] [place] [address], [place] [address]- 4216 Mar, [facility] [address] [facility] [id number] [place] [address]- 8092 Feb, [facility] [address] [facility] [id number] [place] [address] 23634- 2251 Feb, [facility] [address] [facility] [id number] 6154 Feb, [facility] [address] [id number], [place] [address]- 7417 Feb, [facility] [address] [facility] [id number], [place] [address]- 3424 Feb, [facility] [address] [facility] [id number], [place] [address]- 7617 Feb, [facility] [address] [facility] [id number], [place] [address]- 1611 Feb, [facility] [address] [id number], [place] [address]- 9926 Feb, Dermatofibroma of left lower leg D23.72 [facility] [address] [facility] [id number], [place] [address]- 9651 Feb, Hematochezia 578.1 ; Low back pain M54.5 ; High risk medication use V58.69 ; Cervicalgia M54.2 and Anxiety F41.9 [facility] [address] [facility] [id number] [id number] Feb, Dental examination Z01.20 ; Pulpitis K04.0 and Dental caries, unspecified K02.9 [facility] [address] [facility] [address] [id number][place] [id number] Feb, Dental examination Z01.20 [facility] [id number] [place] [address] 52554- 2524 30 Jan, 2015 [facility] [id number] [place] [address] 38411- 2657 Jan, [facility] [id number] [place] [address] 66624- 2613 Jan, [facility] [id number] [place] [address] 93482- 0126 Jan, [facility] [id number] [place] [address] 79580- 7358 Dec, [facility] [id number] [place] [address] 75656- 4017 Dec, [facility] [id number] [place] [address] 34804- 8200 Dec, [facility] [id number] [place] [address] 17541- 5858 Dec, [facility] [address] [id number], [place] [address]- 6633 Dec, [facility] [id number] [place] [address] 22619- 8583 Dec, [facility] [address] [id number], [place] [address]- 3388 Dec, [facility] [id number] [place] [address] 61691- 5726 Dec, [facility] [address] [id number] [id number] Nov, Encounter for removal of sutures V58.32 [facility] [address], [place] [address]- 1896 Nov, [facility] [address] [id number], [place] [address]- 6756 Nov, [facility] [address], [place] [address]- 2740 Nov, [facility] [address], [place] [address]- 4514 Nov, [facility] [address], [place] [address]- 1008 Nov, [facility] [address], [place] [address]- 7068 Nov, [facility] [address], [place] [address]- 5797 Nov, [facility] [address], [place] [address]- 1668 Nov, Dermatofibroma 216.9 [facility] [address], [place] [address]- 1830 Nov, [facility] [address] [id number], [place] [address]- 6312 Nov, [facility] [address] [id number], [place] [address]- 2895 Oct, [facility] [address] [id number], [place] [address]- 3742 Oct, Hematochezia 578.1 ; Abscess 682.9 ; GERD (gastroesophageal reflux disease) 530.81 ; Visual disturbance of one eye 368.9 and High risk medication use V58.69 [facility] [address], [place] [address]- 7706 Oct, [facility] [address] [id number] [place] [address]- 3552 Oct, [facility] [address] [id number] [place] 6143 Oct, [facility] [address] [id number] [place] [address]- 3850 September, [facility] [address] [id number] [place] [address]- 2098 September, [facility] [address] [id number] [place] 9558 September, [facility] [address] [id number] [place] [address]- 1338 September, [facility] [address] [id number] [place] [address]- 3971 September, [facility] [address] [facility] [id number] [place] [address]- 9038 September, Colon cancer screening V76.51 [facility] [address] [id number] [place]- 5763 September, [facility] [address] [id number] [place] [address]- 9651 Aug, [facility] [address] [id number] [place] [address]- 1306 Aug, [facility] [place] [facility] [address] [id number] [place] [address]- 7252 Jul, [facility] [place] [facility] [address] [id number] [place] 6660 Jul, [facility] [place] [facility] [address] [id number] [place] [address]- 8445 Jul, [facility] [place] [facility] [address] [id number] [place] [address]- 6272 Jul, [facility] [place] [facility] [address] [id number] [place] [address]- 7303 Jun, [facility] [place] [facility] [address] [id number] [place] [address]- 8206 Jun, [facility] [place] [facility] [address] [id number] [place] [address]- 0366 Jun, [facility] [place] [facility] [address] [id number] [place] [address]- 7666 Jun, [facility] [place] [facility] [address] [id number] [place] [address]- 2251 Jun, [facility] [place] [facility] [address] [id number] [place] [address]- 0150 Jun, [facility] [place] [facility] [address] [id number] [place] [address]- 5705 May, [facility] [place] [facility] [address] [id number] [place] [address]- 9385 May, [facility] [place] [facility] [address] [id number] [place] [address]- 5292 May, [facility] [place] [facility] [address] [id number] [place] [address]- 6674 May, [facility] [place] [facility] [address] [facility] [id number] [place] [address]- 7828 May, [facility] [place] [facility] [address] [id number] [place] [address]- 8542 May, [facility] [place] [facility] [address] [id number] [place] [address]- 0158 May, [facility] [place] [facility] [address] [id number] [place] [address]- 6964 May, [facility] [place] [facility] [address] [id number] [place] [address]- 2052 Apr, [facility] [place] [facility] [address] [id number] [place] [address]- 8462 Apr, [facility] [place] [facility] [address] [id number] [place] [address]- 8792 Apr, [facility] [place] [facility] [address] [id number] [place] [address]- 8378 Apr, [facility] [place] [facility] [address] [id number] [place] [address]- 4544 Apr, [facility] [place] [facility] [address] [id number] [place] [address]- 8849 Apr, [facility] [place] [facility] [address] [id number] [place] [address]- 4010 Apr, [facility] [place] [facility] [address] [id number] [place] [address]- 8010 Apr, [facility] [place] [facility] [address] [id number] [place] [address]- 2989 Mar, [facility] [place] [facility] [address] [id number] [place] [address]- 5761 Mar, [facility] [place] [facility] [address] [id number] [place] [address]- 3361 Mar, [facility] [place] [facility] [address] [id number] [place] [address]- 5336 Mar, [facility] [place] [facility] [address] [id number], [place] [address]- 1714 Mar, [facility] [place] [facility] [address] [id number], [place] [address]- 9345 Mar, [facility] [place] [facility] [address] [id number] [place] [address]- 6646 Mar, [facility] [place] [facility] [address] [id number], [place] [address]- 8934 Mar, [facility] [place] [facility] [address] [id number], [place] [address]- 0468 Mar, [facility] [place] [facility] [address] [id number] [place] [address]- 9195 Mar, [facility] [place] [facility] [address] [id number] [place] [address]- 1004 Feb, [facility] [place] [facility] [address] [id number] [place] [address]- 1143 Feb, [facility] [place] [facility] [address] [id number] [place] [address]- 7826 Jan, [facility] [place] [facility] [address] [id number] [place] [address]- 6597 Jan, [facility] [place] [facility] [address] [id number] [place] [address]- 7026 Jan, [facility] [place] [facility] [address] [id number] [place] [address]- 7630 Jan, [facility] [place] [facility] [address] [id number] [place] [address]- 4212 Dec, [facility] [place] [facility] [address] [id number] [place] [address]- 5222 Dec, [facility] [place] [facility] [address] [id number] [place] [address]- 4511 Dec, [facility] [place] [facility] [address] [id number] [place] [address]- 3852 Dec, [facility] [place] [facility] [address] [id number] [place] [address]- 9697 Dec, [facility] [place] [facility] [address] [id number] [place] [address]- 5556 Dec, [facility] [place] [facility] [address] [id number] [place] [address]- 9219 Nov, [facility] [place] [facility] [address] [id number] [place] [address]- 3264 Nov, [facility] [place] [facility] [address] [id number] [place] [address]- 8288 Oct, [facility] [place] [facility] [address] [id number] [place] [address]- 7086 Oct, [facility] [place] [facility] [address] [id number] [place] [address]- 9505 Oct, [facility] [place] [facility] [address] [id number] [place] [address]- 4557 Oct, [facility] [place] [facility] [address] [id number] [place] [address]- 6759 September, [facility] [place] [facility] [address] [id number] [place] [address]- 4837 September, [facility] [place] [facility] [address] [id number] [place] [address]- 1697 September, [facility] [place] [facility] [address] [id number] [place] [address]- 2180 September, [facility] [place] [facility] [address] [id number] [place] [address]- 0291 September, [facility] [place] [facility] [address] [id number] [place] [address]- 6669 September, [facility] [place] [facility] [address] [id number] [place] [address]- 7641 September, [facility] [place] [facility] [address] [id number] [place] [address]- 7915 September, [facility] [place] [facility] [address] [id number] [place] [address]- 7198 Aug, [facility] [place] [facility] [address] [id number] [place] [address]- 5506 Aug, [facility] [place] [facility] [address] [id number] [place] [address]- 9497 Aug, [facility] [place] [facility] [address] [id number] [place] [address]- 9129 Aug, [facility] [place] [facility] [address] [id number], [place] [address]- 3336 Aug, [facility] [place] [facility] [address] [id number] [place] [address]- 8345 Aug, [facility] [place] [facility] [address] [id number] [place] [address]- 3444 Jul, [facility] [place] [facility] [address] [facility] [id number] [place] [address]- 2579 Jul, [facility] [place] [facility] [address] [id number] [place] [address]- 2181 Jul, [facility] [place] [facility] [address] [id number] [place] [address]- 7476 Jul, [facility] [place] [facility] [address] [id number] [place] [address]- 5304 Jun, [facility] [place] [facility] [address] [facility] [id number] [place] [address]- 3561 Jun, [facility] [place] [facility] [address] [id number] [place] [address]- 8345 Jun, [facility] [place] [facility] [address] [facility] [id number] [place] [address]- 0132 Jun, [facility] [place] [facility] [address] [facility] [id number] [place] [address]- 5858 Jun, [facility] [place] [facility] [address] [facility] [id number] [place] [address]- 0291 Jun, [facility] [place] [facility] [address] [id number], [place] [address]- 8031 May, [facility] [place] [facility] [address] [id number] [place] [address]- 6074 May, [facility] [place] [facility] [address] [id number], [place] [address]- 1151 May, [facility] [place] [facility] [address] [id number], [place] [address]- 2982 May, [facility] [place] [facility] [address] [id number] [place] May, [facility] [address] [id number] [place] [address]- 5876 May, [facility] [address] [id number] [place] [address]- 2546 May, [facility] [address] [id number] [place] [address]- 2546 May, [facility] [address] [id number] [place] [address]- 5392 Apr, [facility] [address] [facility] [id number] Apr, [facility] [address] [id number] [place] [address]- 8726 Apr, [facility] [address] [id number] [place] [address]- 9066 Apr, [facility] [address] [id number] [place] [address]- 8656 Apr, [facility] [address] [id number] [place] [address]- 2824 Apr, [facility] [address] [id number] [place] [address]- 7546 05 Apr, 2013 [facility] [address] [id number] [place] [address]- 2546 05 Apr, 2013 [facility] [address] [id number] [place] [address]- 2546 04 Apr, 2013 [facility] [address] [id number] [place] [address]- 2546 Mar, [facility] [address] [id number] [place] [address]- 2546 Mar, [facility] [address] [id number] [place] [address]- 3296 Mar, [facility] [place] [facility] [address] [id number] [place] [address]- 8481 Mar, [facility] [place] [facility] [address] [id number] [place] [address]- 4551 Mar, [facility] [place] [facility] [address] [id number] [place] 1558 Feb, [facility] [place] [facility] [address] [id number] [place] [address]- 1540 Feb, [facility] [place] [facility] [address] [id number] [place] [address]- 7758 Feb, [facility] [place] [facility] [address] [id number] [place] [address]- 4733 Feb, [facility] [place] [facility] [address] [id number] [place] [address]- 5063 Jan, [facility] [place] [facility] [address] [id number] [place] [address]- 0187 Jan, [facility] [place] [facility] [address] [id number] [place] [address]- 1857 Jan, [facility] [place] [facility] [address] [id number], [place] [address]- 7287 Dec, [facility] [place] [facility] [address] [id number], [place] [address]- 4334 Dec, [facility] [place] [facility] [address] [id number], [place] [address]- 6845 Dec, [facility] [address] [id number] [place] [id number] Nov, [facility] [address] [id number] [place] [id number] Oct, [facility] [place] [facility] [address] [id number] [place] [address] Oct, [facility] [place] [facility] [address] [id number], [place] [address] September, [facility] [address] [id number] [place] [address] September, [facility] [place] [facility] [address] [id number] [place] [address] September, [facility] [address] [id number] [place] [address] September, [facility] [facility] [address] [id number] [place] [address] September, [facility] [address] [id number] [place] [address] Jul, [facility] [facility] [address] [id number] [place] [address] Jul, [facility] [address] [id number] [place] [address] Jul, [facility] [facility] [address] [id number] [place] [address] Jul, [facility] [place] [facility] [address] [id number] [place] [address] Jun, [facility] [place] [facility] [address] [id number] [place] [address] Jun, [facility] [facility] [address] [id number] [place] [address] Jun, [facility] [place] [facility] [address] [id number], [place] [address] Jun, [facility] [place] [facility] [address] [id number] [place] [address] May, [facility] [place] [facility] [address] [id number] [place] [address] Mar, [facility] [place] [facility] [address] [id number] [place] [address] Mar, [facility] [facility] [address] [id number], [place] [address] Mar, [facility] [address] [id number], [place] [address] Mar, [facility] [address] [id number], [place] [address] Mar, [facility] [address] [id number], [place] [address] Mar, [facility] [facility] [address] [id number] [place] [address] Mar, [facility] [facility] [address] [facility] [id number] [place] [address] Mar, [facility] [facility] [address] [facility] [id number] [place] [address] Feb, [facility] [address] [facility] [id number], [place] [address] Feb, [facility] [address] [facility] [id number], [place] [address] Feb, [facility] [address] [facility] [id number], [place] [address] Feb, [facility] [address] [facility] [id number], [place] [address] Feb, [facility] [address] [facility] [id number], [place] [address] Feb, [facility] [address] [facility] [id number], [place] [address] Feb, [facility] [address] [id number] [place] [id number] Jan, [facility] [address] [id number] [place] [id number] Dec, [facility] [address] [id number] [place] [id number] Dec, [facility] [address] [id number] [place] [address] 30 Nov, 2011 [facility] [address] [id number] [place] [address] Nov, [facility] [address] [id number] [place] [address] Oct, [facility] [address] [id number] [place] [address] 15 Jul, 2011 [facility] [address] [id number] [place] [address] Jul, [facility] [address] [id number] [place] [address] May, [facility] [facility] [address] [id number] [place] [address] May, [facility] [address] [id number] [place] [address] Nov, [facility] [address] [id number] [place] [address] 30 Mar, 2010 [facility] [address] [id number] [place] [address] Dec, [facility] [facility] [address] [id number] [place] [address] Nov, [facility] [address] [id number] [place] [address] Aug, [facility] [facility] [address] [id number] [place] [address] Apr, [facility] [address] [id number] [place] [address] Apr, [facility] [address] [id number] [place] [address] 30 Mar, 2009 [facility] [facility] [address] [id number] [place] [address] Feb, [facility] [address] [facility] [id number] [place] [address] September, [facility] [address] [facility] [id number], [place] [address] Jun, [facility] [address] [facility] [id number] [place] [id number], IMMUNIZATIONS No Known Immunizations SOCIAL HISTORY [...] hernia Hospitalization History Went by ambulance to [place] as unresponsive 05/2015 Hospitalization History [place] sent her to [facility] for a psych hold 05/2015
--- OUTSIDE RECORDS SUMMARY | 2018-03-15 10:58 | XMS REPORT ---
Author Author CARYL FRANZ Organization [facility] Address [address] [place] [address] Care Team Providers Care Teacher Drama Name Role Phone OSEI CARYL Unavailable PROBLEMS Type Condition ICD9-CM Code [id number] Code Onset Dates Condition Status SNOMED Code Problem Psoriasis L40.9 Active 7570044 Problem Relationship problem with family member Z63.8 Active 274098568 Problem Essential hypertension I10 Active 28967803 Problem Anxiety F41.9 Active 11161913 Problem Visual disturbance H53.9 Active 87060477 Problem Rheumatoid arthritis involving multiple sites with positive rheumatoid factor M05.79 Active 272212967 Problem Bilateral low back pain with sciatica, sciatica laterality unspecified M54.40 Active 064810212 Problem Hypokalemia E87.6 Active 53669517 Problem Lumbago with sciatica, left side M54.42 Active 056373454 Problem Other chronic pain G89.29 Active 10685958 Problem 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 Active 670470106 Problem Blindness of right eye H54.40 Active 420630710 Problem Posttraumatic stress disorder F43.10 Active 06262335 Problem Overdose T50.901A Active 79062983 Problem Bipolar disorder F31.9 Active 30059318 Problem Borderline personality disorder F60.3 Active 62052744 Problem Obstructive sleep apnea G47.33 Active 57868316 Problem Acquired hypothyroidism E03.9 Active 013966802 Problem Pelvic pain R10.2 Active 75465819 Problem Chronic pain G89.29 Active 31224533 Problem Gastro-esophageal reflux disease without esophagitis K21.9 Active 533351120 Problem Anemia due to other cause, not classified D64.89 Active 684501915 Problem Social anxiety disorder F40.10 Active 56090979 Problem Morbid obesity, unspecified obesity type E66.01 Active [id number] ALLERGIES No Information ENCOUNTERS Encounter Location Date Diagnosis [facility] [address] [facility] [id number] [address] Feb, [place] [address] [address] Dec, [place] [address] [place] [address] 07708- 7378 Dec, [address] [id number] [id number] Dec, Dental examination Z01.20 [place] [address] [place] [address] 08780- 5215 Nov, Bipolar disorder F31.9 ; Posttraumatic stress disorder F43.10 and Borderline personality disorder F60.3 [place] [address] [place] [id number] [place] [address] 80981- 2463 Nov, Rheumatoid arthritis involving multiple sites with positive rheumatoid factor M05.79 ; Dysuria R30.0 and Blindness of right eye H54.40 [place] [address] [place] [address] 96744- 2884 Nov, Bipolar disorder F31.9 ; Posttraumatic stress disorder F43.10 ; Social anxiety disorder F40.10 and Relationship problem with family member Z63.8 [place] [address] [place] [address] 05130- 9761 Nov, [place] [address] [place] [address] 22455- 5249 Nov, [place] [address] [place] [id number] [place] [address] 02650- 3499 Nov, 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 ; Adverse effect of antineoplastic and immunosuppressive drugs, initial encounter T45.1X5A ; Anemia , unspecified D64.9 and BMI 40.0-44.9, adult Z68.41 [place] [id number] [place] [address] 54354- 9508 Nov, Anemia due to other cause, not classified D64.89 [place] [id number] [place] [address] 69776- 4446 Oct, Adverse effect of drug, initial encounter T50.905A and Acute anemia D64.9 [facility] [address] [place] [id number] [place] [address] 43326- 8255 Oct, Anemia due to other cause, not classified D64.89 ; Dysuria R30.0 and Urinary tract infection without hematuria, site unspecified N39.0 [facility] [address] [place] [id number] [place] [address] 02525- 4842 Oct, [facility] [address] [place] [id number] [place] [address] 16240- 2488 Oct, [facility] [address] [place] [id number] [place] [address] 13250- 3199 Oct, 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 [place] [id number] [place] [address] [id number] Oct, [facility] [address] [place] [id number] [place] [address] 30637- 8706 Oct, [facility] [id number] [place] [address] 91771- 2561 Oct, [facility] [address] [place] [id number] [place] [address] 70945- 2993 Oct, Bipolar disorder F31.9 ; Posttraumatic stress disorder F43.10 and Borderline personality disorder F60.3 [facility] [address] [place] [address] 81698- 1928 Oct, Rheumatoid arthritis involving multiple sites with positive rheumatoid factor M05.79 ; 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 and Anxiety F41.9 [facility] [address] [place] [id number] [place] [address] 95670- 8843 Oct, [facility] [id number] [place] [address] 04356- 1523 September, 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 [facility] [address] [place] [id number] [place] [address] 30315- 8845 September, Bipolar disorder F31.9 ; Posttraumatic stress disorder F43.10 and Borderline personality disorder F60.3 [place] [address] [place] [id number] [place] [address] 71202- 6246 Aug, BMI 40.0-44.9, adult Z68.41 ; Bipolar disorder F31.9 ; Posttraumatic stress disorder F43.10 and Social anxiety disorder F40.10 [place] [address] [place] [id number] [place] [address] 69895- 0949 Aug, Bipolar disorder F31.9 ; Posttraumatic stress disorder F43.10 and Borderline personality disorder F60.3 [place] [address] 09542- 0889 Aug, 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 [place] [address] 34570- 6525 Jul, Bipolar disorder F31.9 ; Posttraumatic stress disorder F43.10 and Borderline personality disorder F60.3 [place] [address] [place] [id number] [place] [address] 03871- 5042 Jul, [place] [address] 02191- 6032 Jun, Bipolar disorder F31.9 ; Posttraumatic stress disorder F43.10 and Borderline personality disorder F60.3 [place] [address] [place] [id number] [place] [address] 19446- 6863 Jun, Blindness of right eye H54.40 and Acquired hypothyroidism E03.9 [place] [address] [place] [id number] [place] [address] 63931- 9855 Jun, [place] [address] [place] [id number]- 5837 May, Posttraumatic stress disorder F43.10 ; Social anxiety disorder F40.10 and Bipolar disorder F31.9 [place] [address] 36905- 4797 May, Bipolar disorder F31.9 ; Posttraumatic stress disorder F43.10 and Borderline personality disorder F60.3 [facility] [address] [address] 8378 May, [facility] [address] [address]- 2872 May, [facility] [address] [place] [address] 69754- 5387 Apr, Bipolar disorder F31.9 ; Posttraumatic stress disorder F43.10 and Borderline personality disorder F60.3 [address] [id number] Apr, [facility] [address] [place] [address] 08179- 8922 Apr, [facility] [address] [place] [address] 07810- 7539 Mar, Hydradenitis L73.2 [facility] [address] [place] [address] 41041- 0593 15 Mar, 2017 Lumbago with sciatica, left side M54.42 ; Other chronic pain G89.29 ; Morbid obesity, unspecified obesity type E66.01 ; Hydradenitis L73.2 and BMI 40.0-44.9, adult Z68.41 [facility] [address] [place] [address] 26437- 4053 Mar, Bipolar disorder F31.9 ; Posttraumatic stress disorder F43.10 and Borderline personality disorder F60.3 [facility] [address] [address] 1990 Mar, Social anxiety disorder F40.10 ; Bipolar disorder F31.9 and Relationship problem with family member Z63.8 [facility] [address] [address] 3071 Mar, [address] [id number] [id number] Mar, Dental examination Z01.20 [facility] [address] [address]- 5643 Mar, [facility] [address] [place] [address] 94685- 6720 Feb, Bipolar disorder F31.9 ; Posttraumatic stress disorder F43.10 and Borderline personality disorder F60.3 [facility] [address] [id number] Feb, [facility] [id number] [place] [address] 30194- 7073 14 Jan, 2017 Bipolar disorder F31.9 ; Posttraumatic stress disorder F43.10 and Borderline personality disorder F60.[address] [id number][place] [id number] Jan, [facility] [address] [address]- 3816 Jan, [facility] [address] [id number] Jan, [facility] [address] [place] [address] 35210- 7682 Dec, Bipolar disorder F31.9 ; Posttraumatic stress disorder F43.10 and Borderline personality disorder F60.3 [facility] [address] [address]- 6884 Dec, [facility] [id number] [place] [address] 77601- 4716 Dec, [facility] [address] [facility] [id number] [id number] Dec, [facility] [address] [place] [address] 52916- 8232 Nov, Bipolar 1 disorder F31.9 ; Posttraumatic stress disorder F43.10 and Social anxiety disorder F40.10 [facility] [address] [place] [address] 89312- 1551 Nov, Bipolar disorder F31.9 ; Posttraumatic stress disorder F43.10 and Borderline personality disorder F60.3 [place] [address] [place] [address] 03906- 3616 Nov, Morbid obesity, unspecified obesity type E66.01 [place] [address] [place] [address] 19556- 4448 Nov, [address] [id number][place] [id number] Oct, Encounter for dental examination and cleaning without abnormal findings Z01.20 [place] [address] [place] [id number] [place] [address] 39866- 9417 Oct, Morbid obesity, unspecified obesity type E66.01 and Acute seasonal allergic rhinitis due to pollen J30.1 [place] [address] [place] [id number] [place] [address] 60408- 7518 Oct, Bipolar disorder F31.9 ; Posttraumatic stress disorder F43.10 and Borderline personality disorder F60.3 [place] [address] [place] [id number] [place] [address] 06172- 6564 September, Morbid obesity, unspecified obesity type E66.01 and Psoriasis L40.9 [place] [id number] [place] [address] 58159- 4669 September, Bipolar disorder F31.9 ; Posttraumatic stress disorder F43.10 and Borderline personality disorder F60.3 [place] [id number] [place] [address] 69831- 2834 September, Chronic pain G89.29 [place] [address] [place] [id number] [place] [address] 19929- 1309 Aug, Other acute nonsuppurative otitis media of right ear H65.191 and Morbid obesity, unspecified obesity type E66.01 [place] [address] [place] [address] 61672- 5100 Aug, Bipolar 1 disorder F31.9 ; Posttraumatic stress disorder F43.10 and Social anxiety disorder F40.10 [facility] [address] [place] [id number] [place] [address] 56709- 5602 Aug, Bipolar disorder F31.9 ; Posttraumatic stress disorder F43.10 and Borderline personality disorder F60.3 [facility] [address] [place] [id number] [place] [address] 25284- 8023 Jul, Morbid obesity due to excess calories E66.01 ; Gastro- esophageal reflux disease without esophagitis K21.9 and Chronic pain G89.29 [facility] [address] [place] [id number] [place] [address] 02207- 2169 Jul, Morbid obesity due to excess calories E66.01 [facility] [address] [place] [id number] [place] [address] 86805- 8740 Jul, [facility] [address] [place] [id number] [place] [address] 30209- 7630 Jul, [facility] [address] [place] [id number] [place] [address] 80277- 5272 Jul, Morbid obesity due to excess calories E66.01 [facility] [address] [place] [id number] [place] [address] 83505- 8271 Jul, Bipolar disorder F31.9 ; Posttraumatic stress disorder F43.10 and Borderline personality disorder F60.3 [facility] [address] [place] [id number] [place] [address] 23952- 1288 Jun, [facility] [address] [place] [id number] [place] [address] 60348- 3094 Jun, Morbid obesity due to excess calories E66.01 [facility] [address] [place] [id number] [place] [address] 85939- 6477 Jun, [facility] [address] [place] [id number] [place] [address] 53628- 7934 Jun, Morbid obesity, unspecified obesity type E66.01 [facility] [address] [place] [id number] [place] [address] 46164- 8489 Jun, Bipolar disorder F31.9 ; Posttraumatic stress disorder F43.10 and Borderline personality disorder F60.3 [facility] [address] [place] [address] 86986- 3550 Jun, [facility] [address] [place] [address] 97137- 5621 Jun, [facility] [address] [place] [id number] [place] [address] 68934- 3628 Jun, Acquired hypothyroidism E03.9 and Morbid obesity due to excess calories E66.01 [facility] [address] [place] [id number] [place] [address] 23852- 9818 May, Bipolar disorder F31.9 ; Posttraumatic stress disorder F43.10 and Borderline personality disorder F60.3 [place] [address] [place] [id number] [place] [address] 54538- 8534 Apr, Bipolar 1 disorder F31.9 ; Posttraumatic stress disorder F43.10 and Social anxiety disorder F40.[address] [place] [place] [address] [id number] [id number] Apr, Encounter for dental examination Z01.20 [facility] [id number] [place] [address] 31823- 5890 Apr, [facility] [id number] [place] [address] 22242- 0487 Apr, Acquired hypothyroidism E03.9 [facility] [address] [place] [address] 66190- 2255 Apr, Acquired hypothyroidism E03.9 [facility] [address] [place] [id number] [place] [address] 93009- 6356 Apr, Bipolar disorder F31.9 ; Posttraumatic stress disorder F43.10 and Borderline personality disorder F60.3 [facility] [address] [place] [address] 20807- 8108 Apr, Acquired hypothyroidism E03.9 [place] [address] [facility] [address] [id number][place] [id number] Mar, Encounter for dental examination and cleaning without abnormal findings Z01.20 [facility] [address] [place] [address] 31287- 9566 Mar, [facility] [address] [place] [id number] [place] [address] 82099- 8133 Mar, Bipolar disorder F31.9 ; Posttraumatic stress disorder F43.10 and Borderline personality disorder F60.3 [place] [address] [place] [id number] [place] [address] 03306- 4177 Mar, Essential (primary) hypertension I10 [place] [address] [place] [id number] [place] [address] 51675- 6940 Feb, [place] [address] [place] [id number] [place] [address] 39408- 8554 Feb, [place] [address] [place] [id number] [place] [address] 63063- 2317 Feb, Pelvic pain R10.2 ; Lipid screening Z13.220 ; Fatigue, unspecified type R53.83 and Weight gain R63.5 [place] [address] [place] [address] 09096- 7599 Feb, Bipolar disorder F31.9 ; Posttraumatic stress disorder F43.10 and Borderline personality disorder F60.3 [place] [address] [address]- 9459 Feb, [facility] [address] [place] [id number] [place] [address] 38610- 4226 Feb, [facility] [address] [place] [id number] [place] [address] 07513- 3912 30 Jan, 2016 Obstructive sleep apnea syndrome G47.33 [facility] [address] [address]- 6343 Jan, [facility] [address] [facility] [address] [id number][place] [id number] Jan, Dental examination Z01.20 [facility] [address] [place] [address] 04075- 8868 Jan, Bipolar 1 disorder F31.9 ; Posttraumatic stress disorder F43.10 and Social anxiety disorder F40.10 [facility] [address] [place] [id number] [place] [address] 84013- 4036 Jan, Bipolar disorder F31.9 ; Posttraumatic stress disorder F43.10 and Borderline personality disorder F60.3 [facility] [address] [place] [id number] [place] [address] 90381- 1721 Jan, Sciatica of left side M54.32 [facility] [address] [place] [id number] [place] [address] 47447- 8240 Jan, [facility] [address] [place] [id number] [place] [address] 20503- 2702 Dec, [facility] [address] [place] [id number] [place] [address] 42938- 5493 Dec, [facility] [address] [place] [id number] [place] [address] 34728- 5723 Dec, Bipolar disorder F31.9 ; Posttraumatic stress disorder F43.10 and Borderline personality disorder F60.3 [facility] [address] [address]- 5239 Nov, [facility] [address] [place] [id number] [place] [address] 04326- 4805 Nov, Insomnia, unspecified type G47.00 [facility] [address] [place] [address] 90395- 3521 Nov, Bipolar disorder F31.9 ; Posttraumatic stress disorder F43.10 and Borderline personality disorder F60.3 [facility] [address] [place] [address] 67765- 6061 Nov, [facility] [address] [place] [id number] [place] [address] 82118- 0207 Nov, [facility] [address] [address]- 2663 Oct, Bipolar disorder F31.9 ; Posttraumatic stress disorder F43.10 and Borderline personality disorder F60.3 [facility] [address] [address]- 5592 Oct, [facility] [address] [place] [id number] [place] [address] 87378- 8194 Oct, Essential (primary) hypertension I10 [facility] [id number] [place] [address] 28961- 4193 September, Bipolar 1 disorder F31.9 ; Posttraumatic stress disorder F43.10 and Social anxiety disorder F40.10 [facility] [address] [place] [address] 79879- 7365 September, Bipolar disorder F31.9 ; Posttraumatic stress disorder F43.10 and Borderline personality disorder F60.[address] [place] [place] [address] [id number] [id number] September, Encounter for dental examination and cleaning without abnormal findings Z01.20 [facility] [address] [address]- 3048 September, [facility] [address] [address]- 4349 September, [facility] [address] [address]- 9999 Aug, [facility] [address] [place] [address] 28411- 6067 Aug, Bipolar disorder F31.9 ; Posttraumatic stress disorder F43.10 and Borderline personality disorder F60.3 [facility] [address] [address]- 7495 Aug, [facility] [id number] [place] [address] 66072- 7923 Aug, [facility] [address] [address]- 1055 Aug, [facility] [id number][place] [id number] Jul, Acute nasopharyngitis [common cold] J00 and Other viral agents as the cause of diseases classified elsewhere B97.89 [facility] [address] [place] [address] 82213- 4940 24 Jul, 2015 Chronic pain G89.29 and Allergic rhinitis J30.9 [facility] [address] [place] [address] 83163- 2432 24 Jul, 2015 Bipolar 1 disorder F31.9 ; Posttraumatic stress disorder F43.10 and Social anxiety disorder F40.10 [place] [address] [place] [id number] [place] [address] 62148- 4483 16 Jul, 2015 Bipolar 1 disorder F31.9 [facility] [address] [place] [id number] [place] [address] 94000- 3021 16 Jul, 2015 Bipolar disorder F31.9 ; Posttraumatic stress disorder F43.10 and Borderline personality disorder F60.3 [facility] [address] [place] [address] 56085- 5802 14 Jul, 2015 [facility] [address] [place] [address] 45373- 9257 14 Jul, 2015 [facility] [address] [place] [address] 55411- 4576 11 Jul, 2015 [facility] [address] [place] [address] 99778- 2273 10 Jul, 2015 Anxiety F41.9 [facility] [address] [place] [id number] [place] [address] 74597- 2089 10 Jul, 2015 Chronic pain G89.29 and Encounter for therapeutic drug level monitoring Z51.81 [facility] [address] [place] [address] 85253- 4202 09 Mar, 2016 Chronic pain G89.29 and Encounter for therapeutic drug level monitoring Z51.81 [facility] [address] [address]- 7035 Jul, [facility] [address] [place] [id number] [place] [address] 61507- 8226 Jun, [facility] [address] [place] [id number] [place] [address] 96203- 9616 Jun, [facility] [address] [place] [id number] [place] [address] 67916- 1617 Jun, [facility] [address] [place] [id number] [place] [address] 60833- 3656 Jun, [facility] [address] [place] [id number] [place] [address] 35395- 5896 Jun, High risk medication use V58.69 [facility] [address] [place] [id number] [place] [address] 80512- 2188 Jun, [facility] [address] [place] [id number] [place] [address] 49459- 6142 Jun, Bipolar 1 disorder F31.9 ; Overdose T50.901A and Chronic pain G89.29 [facility] [id number] [place] [address] [id number] [id number] Jun, Bipolar disorder F31.9 ; Posttraumatic stress disorder F43.10 and Borderline personality disorder F60.3 [facility] [id number] [place] [address] [id number] [phone] Jun, [facility] [id number] [place] [address] [phone] Jun, [facility] [id number] [place] [address] 43797- 3942 Jun, Keloid L91.0 [facility] [id number] [place] [address] 43778- 6148 Jun, [facility] [id number] [address] 41[address] May, [facility] [id number] [place] [address] 21232- 1238 May, [facility] [id number] [place] [address] 87077- 6310 May, Pelvic pain R10.2 [facility] [id number] [place] [address] 03144- 0282 May, [facility] [id number] [place] [address] 20750- 8877 May, Pain of left thumb M79.645 ; Incisional pain R20.8 ; Pelvic pain R10.2 and Essential hypertension I10 [facility] [id number] [place] [address] 19738- 3382 May, [facility] [id number] [place] [address] 13734- 8405 May, [address] [id number] [id number] May, Dental examination Z01.20 and Necrosis of pulp K04.1 [facility] [id number] [address] 1049 Apr, [facility] [id number] [place] [address] 58058- 4335 Apr, [facility] [id number] [address]- 9474 Apr, [facility] [id number] [place] [address] 86341- 4632 Apr, [facility] [id number] [place] [address] 43613- 0589 Apr, [facility] [id number] [place] [address] 74472- 0238 Apr, [facility] [address] [id number] [place] [address]- 6450 Apr, [facility] [address] [id number] [place] [address] 2832 Apr, [facility] [address] [id number] [place] 1446 Mar, [facility] [address] [id number] [place] [address]- 3690 Mar, [facility] [address] [id number] [place] [address]- 4482 Mar, [facility] [address] [id number] [place] 7804 Mar, [facility] [address] [id number] [place] [address]- 3303 Feb, [facility] [address] [id number] [address]- 7947 Feb, [facility] [address] [id number] [place] [address]- 8353 Feb, [facility] [address] [id number] [place] [address]- 1764 Feb, [facility] [address] [id number] [place] [address]- 5623 Feb, [facility] [address] [id number] [place] [address]- 4062 Feb, [facility] [address] [id number] [place] [address]- 5998 Feb, [facility] [address] [id number] [place] 3124 Feb, Dermatofibroma of left lower leg D23.72 [facility] [address] [id number] [address]- 8628 Feb, Hematochezia 578.1 ; Low back pain M54.5 ; High risk medication use V58.69 ; Cervicalgia M54.2 and Anxiety F41.9 [facility] [address] [id number] [id number] Feb, Dental examination Z01.20 ; Pulpitis K04.0 and Dental caries, unspecified K02.9 [facility] [address] [id number][place] [id number] Feb, Dental examination Z01.20 [facility] [address] [id number] [address]- 8702 30 Jan, 2015 [facility] [address] [id number] [place] [address] 25759- 7530 Jan, [facility] [address] [id number] [place] [address] 83964- 3372 Jan, [facility] [id number] [place] [address] 12051- 8859 Jan, [facility] [address] [id number] [place] [address]- 6098 Dec, [facility] [address] [id number] [place] [address] 91360- 0301 Dec, [facility] [address] [id number] [place] [address]- 5730 Dec, [facility] [address] [id number] [place] [address]- 6970 Dec, [facility] [address] [id number] [address]- 4582 Dec, [facility] [address] [id number] [place] [address]- 8197 Dec, [facility] [address] [id number] [address]- 5577 Dec, [facility] [address] [id number] [address]- 6301 Dec, [address] [id number] [id number] Nov, Encounter for removal of sutures V58.32 [facility] [address]00565100[place] [address]- 8401 Nov, [facility] [address]00565100[place] [address]- 6318 Nov, [facility] [address]00565100[place] [address]- 5820 Nov, [facility] [address]00565100[place] [address]- 0399 Nov, [facility] [address]00565100[place] [address]- 3755 Nov, [facility] [address]00565100[place] [address]- 5869 Nov, [facility] [address]00565100[place] [address]- 2741 Nov, [facility] [address]00565100[place] [address]- 5568 Nov, Dermatofibroma 216.9 [facility] [address]00565100[place] [address]- 0901 Nov, [facility] [address] [id number] [address]- 6111 Nov, [facility] [address] [id number] [address]- 7246 Oct, [facility] [address] [id number] [address]- 2832 Oct, Hematochezia 578.1 ; Abscess 682.9 ; GERD (gastroesophageal reflux disease) 530.81 ; Visual disturbance of one eye 368.9 and High risk medication use V58.69 [facility] [address] [id number] [address]- 2803 Oct, [facility] [address] [id number] [place] [address]- 6912 Oct, [facility] [address] [id number] [place]- 5674 Oct, [facility] [address] [id number] [place] [address]- 1199 September, [facility] [address] [id number] [place] [address]- 9445 September, [facility] [address] [id number] [place] [address]- 6511 September, [facility] [address] [id number] [place] [address]- 1865 September, [facility] [address] [id number] [place] [address]- 4303 September, [facility] [address] [id number] [place] [address]- 0275 September, Colon cancer screening V76.51 [facility] [address] [id number] [place] 9351 September, [facility] [address] [id number] [place] [address]- 5269 Aug, [facility] [address] [id number] [place] [address]- 9914 Aug, [facility] [place] [facility] [address] [id number] [place] [address]- 9908 Jul, [facility] [place] [facility] [address] [id number] [place] [address]- 4675 Jul, [facility] [address] [id number] [place] [address]- 5101 Jul, [facility] [place] [facility] [address] [id number] [place] [address]- 5614 Jul, [facility] [place] [facility] [address] [id number] [place] [address]- 6255 Jun, [facility] [place] [facility] [address] [id number] [place] [address]- 4916 Jun, [facility] [place] [facility] [address] [id number] [place] [address]- 9396 Jun, [facility] [place] [facility] [address] [id number] [place] [address]- 2780 Jun, [facility] [place] [facility] [address] [id number] [place] [address]- 4085 Jun, [facility] [place] [facility] [address] [id number] [place]- 2293 Jun, [facility] [place] [facility] [address] [id number] [place] [address]- 0244 May, [facility] [place] [facility] [address] [id number] [place] [address]- 4131 May, [facility] [place] [facility] [address] [id number] [place] [address]- 0829 May, [facility] [place] [facility] [address] [id number] [place] [address]- 6126 May, [facility] [place] [facility] [address] [id number] [place] [address]- 8169 May, [facility] [place] [facility] [address] [id number] [place] [address]- 0871 May, [facility] [place] [facility] [address] [id number] [place] [address]- 0907 May, [facility] [place] [facility] [address] [id number] [place] 4278 May, [facility] [place] [facility] [address] [id number] [place] 0677 Apr, [facility] [place] [facility] [address] [id number] [place] [address] 4476 Apr, [facility] [place] [facility] [address] [id number] [place] [address]- 8580 Apr, [facility] [place] [facility] [address] [id number] [place] [address]- 5194 Apr, [facility] [place] [facility] [address] [id number] [place] [address]- 6025 Apr, [facility] [place] [facility] [address] [id number] [place] [address]- 1279 Apr, [facility] [place] [facility] [address] [id number] [place] [address]- 3306 Apr, [facility] [place] [facility] [address] [id number] [place] [address]- 6659 Apr, [facility] [place] [facility] [address] [id number] [place] [address]- 6013 Mar, [facility] [place] [facility] [address] [id number] [place] [address]- 8469 Mar, [facility] [place] [facility] [address] [id number] [place] [address]- 4042 Mar, [facility] [place] [facility] [address] [id number] [place] [address]- 3896 Mar, [facility] [place] [facility] [address] [id number] [place] [address]- 1902 Mar, [facility] [place] [facility] [address] [id number] [place] [address]- 9507 Mar, [facility] [place] [facility] [address] [id number] [place] [address]- 3611 Mar, [facility] [place] [facility] [address] [id number] [place] [address]- 1229 Mar, [facility] [place] [facility] [address] [id number] [place] [address]- 9237 Mar, [facility] [place] [facility] [address] [id number] [place] [address]- 8558 Mar, [facility] [place] [facility] [address] [id number] [place] [address]- 4699 Feb, [facility] [place] [facility] [address] [id number] [place] [address]- 1605 Feb, [facility] [place] [facility] [address] [id number] [place] [address]- 4262 Jan, [facility] [place] [facility] [address] [id number] [place] [address]- 3166 Jan, [facility] [place] [facility] [address] [id number] [place] [address]- 5472 Jan, [facility] [place] [facility] [address] [id number] [place] [address]- 2906 Jan, [facility] [place] [facility] [address] [id number] [place] [address]- 0571 Dec, [facility] [place] [facility] [address] [id number] [place] [address]- 4537 Dec, [facility] [place] [facility] [address] [id number] [place] [address]- 0407 Dec, [facility] [place] [facility] [address] [id number] [place] [address]- 8596 Dec, [facility] [place] [facility] [address] [id number] [place] [address]- 9147 Dec, [facility] [place] [facility] [address] [id number] [place] [address]- 2117 Dec, [facility] [place] [facility] [address] [id number] [place] [address]- 5079 Nov, [facility] [place] [facility] [address] [id number] [place] [address]- 1319 Nov, [facility] [place] [facility] [address] [id number] [place] [address]- 3897 Oct, [facility] [place] [facility] [address] [id number] [place] [address]- 9950 Oct, [facility] [place] [facility] [address] [id number] [place] [address]- 0065 Oct, [facility] [place] [facility] [address] [id number] [place] [address]- 9571 Oct, [facility] [place] [facility] [address] [id number] [place] [address]- 8452 September, [facility] [place] [facility] [address] [id number] [place] [address]- 2054 September, [facility] [place] [facility] [address] [id number] [place] [address]- 9463 September, [facility] [place] [facility] [address] [id number] [place] [address]- 6202 September, [facility] [place] [facility] [address] [id number] [place] [address]- 4522 September, [facility] [place] [facility] [address] [id number] [place] [address]- 0226 September, [facility] [place] [facility] [address] [id number] [place] [address]- 1572 September, [facility] [place] [facility] [address] [id number] [place] [address]- 4591 September, [facility] [place] [facility] [address] [id number] [place] [address]- 4879 Aug, [facility] [place] [facility] [address] [id number] [place] [address]- 3696 Aug, [facility] [place] [facility] [address] [id number] [place] [address]- 1624 Aug, [facility] [place] [facility] [address] [id number] [place] [address]- 2050 Aug, [facility] [place] [facility] [address] [id number] [place] [address]- 3793 Aug, [facility] [place] [facility] [address] [id number] [place] [address]- 3506 Aug, [facility] [place] [facility] [address] [id number] [place] [address]- 9046 Jul, [facility] [place] [facility] [address] [id number] [place] [address]- 7726 Jul, [facility] [place] [facility] [address] [id number] [place] [address]- 1880 Jul, [facility] [place] [facility] [address] [id number] [place] [address]- 7737 Jul, [facility] [place] [facility] [address] [id number] [place] [address]- 8839 Jun, [facility] [place] [facility] [address] [id number] [place] [address]- 9440 Jun, [facility] [place] [facility] [address] [id number] [place] [address]- 2343 Jun, [facility] [place] [facility] [address] [id number] [place] [address]- 6135 Jun, [facility] [place] [facility] [address] [id number] [place] [address]- 7020 Jun, [facility] [place] [facility] [address] [id number] [place] [address]- 8355 Jun, [facility] [place] [facility] [address] [id number] [place] [address]- 1309 May, [facility] [place] [facility] [address] [id number] [place] [address]- 0240 May, [facility] [place] [facility] [address] [id number] [place] [address]- 1687 May, [facility] [place] [facility] [address] [id number] [place] [address]- 5316 May, [facility] [place] [facility] [address] [id number] [place] [address]- 5719 May, [facility] [address] [id number] [place] [address]- 4321 May, [facility] [address] [id number] [place] [address]- 7186 May, [facility] [address] [id number] [place] [address]- 2316 May, [facility] [address] [id number] [place] [address]- 0932 Apr, [facility] [address] [place] [id number] Apr, [facility] [address] [id number] [place] [address]- 7986 Apr, [facility] [address] [id number] [place] [address]- 7862 Apr, [facility] [address] [id number] [place] [address]- 7125 Apr, [facility] [address] [id number] [place] [address]- 0211 Apr, [facility] [address] [id number] [place] [address]- 8340 05 Apr, 2013 [facility] [address] [id number] [place] [address]- 5436 05 Apr, 2013 [facility] [address] [id number] [place] [address]- 2546 Apr, [facility] [address] [id number] [place] [address]- 4576 Mar, [facility] [address] [id number] [place] [address]- 0646 Mar, [facility] [address] [id number] [place] [address]- 0706 Mar, [facility] [place] [facility] [address] [id number] [place] [address]- 8627 Mar, [facility] [place] [facility] [address] [id number] [place] [address]- 2989 Mar, [facility] [place] [facility] [address] [id number] [place] 5947 Feb, [facility] [place] [facility] [address] [id number] [place] [address]- 5931 Feb, [facility] [address] [id number] [place] [address]- 9626 Feb, [facility] [place] [facility] [address] [id number] [place] [address]- 7301 Feb, [facility] [address] [id number] [place] [address]- 7200 Jan, [facility] [place] [facility] [address] [id number] [place] [address]- 3373 Jan, [facility] [address] [id number] [place] [address]- 2763 Jan, [facility] [address] [id number] [place] [address]- 7544 Dec, [facility] [place] [facility] [address] [id number] [place] [address]- 3955 Dec, [facility] [address] [id number] [place] [address]- 8803 Dec, [facility] [address] [id number] [place] [id number] Nov, [facility] [address] [id number] [place] [id number] Oct, [facility] [place] [facility] [address] [id number] [place] [address] Oct, [facility] [place] [facility] [address] [id number] [place] [address] September, [facility] [place] [facility] [address] [id number] [place] [address] September, [facility] [address] [id number] [place] [address] September, [facility] [address] [id number] [place] [address] September, [facility] [address] [id number] [place] [address] September, [facility] [address] [id number] [place] [address] Jul, [facility] [address] [id number] [place] [address] Jul, [facility] [address] [id number] [place] [address] Jul, [facility] [address] [id number] [place] [address] Jul, [facility] [address] [id number] [place] [address] Jun, [facility] [address] [id number] [place] [address] Jun, [facility] [address] [id number] [place] [address] Jun, [facility] [address] [id number] [place] [address] Jun, [facility] [place] [facility] [address] [id number] [place] [address] May, [facility] [place] [facility] [address] [id number] [place] [address] Mar, [facility] [place] [facility] [address] [id number] [place] [address] Mar, [facility] [place] [facility] [address] [facility] [id number] [place] [address] Mar, [facility] [place] [facility] [address] [facility] [id number] [place] [address] Mar, [facility] [place] [facility] [address] [facility] [id number] [place] [address] Mar, [facility] [place] [facility] [address] [facility] [id number] [place] [address] Mar, [facility] [place] [facility] [address] [facility] [id number] [place] [address] Mar, [facility] [place] [facility] [address] [facility] [id number] [place] [address] Mar, [facility] [place] [facility] [address] [facility] [id number] [place] [address] Feb, [facility] [place] [facility] [id number] [address] Feb, [facility] [place] [facility] [address] [facility] [id number] [place] [address] Feb, [facility] [place] [facility] [id number] [address] Feb, [facility] [place] [facility] [id number] [address] Feb, [facility] [place] [facility] [id number] [address] Feb, [facility] [place] [facility] [address] [facility] [id number] [place] [address] Feb, [facility] [address] [id number] [id number] Jan, [facility] [address] [id number][place] [id number] Dec, [facility] [address] [facility] [id number] [id number] Dec, [facility] [place] [facility] [address] [facility] [id number] [place] [address] 30 Nov, 2011 [facility] [address] [id number] [place] [address] Nov, [facility] [place] [facility] [address] [id number] [place] [address] Oct, [facility] [place] [facility] [address] [id number] [place] [address] 15 Jul, 2011 [facility] [place] [facility] [address] [id number] [place] [address] 13 Jul, 2011 [facility] [address] [id number] [place] [address] 31 May, 2011 [facility] [place] [facility] [address] [id number] [place] [address] 24 May, 2011 [facility] [address] [facility] [id number] [place] [address] Nov, [facility] [place] [facility] [address] [id number] [place] [address] Mar, [facility] [address] [facility] [id number] [place] [address] Dec, [facility] [place] [facility] [address] [facility] [id number] [place] [address] Nov, [facility] [place] [facility] [address] [facility] [id number] [place] [address] Aug, [facility] [place] [facility] [address] [id number] [place] [address] Apr, [facility] [place] [facility] [address] [id number] [place] [address] Apr, [facility] [place] [facility] [address] [facility] [id number] [place] [address] 30 Mar, 2009 [facility] [place] [facility] [address] [facility] [id number] [place] [address] Feb, [facility] [place] [facility] [address] [facility] [id number] [place] [id number] September, [facility] [address] [facility] [id number] [place] [address] Jun, [facility] [address] [facility] [id number] [place] [address] Mar, IMMUNIZATIONS No Known Immunizations SOCIAL HISTORY Never Assessed REASON FOR VISIT med refill PLAN OF CARE VITAL SIGNS MEDICATIONS Medication Instructions Dosage Frequency Start Date End Date Duration Status Gabapentin 300 MG Orally 3 times a [...] [place] Hospitalization History Went by ambulance to [place] as unresponsive 05/2015 Hospitalization History [place] sent her to [facility] for a psych hold 05/2015
--- OUTSIDE RECORDS SUMMARY | 2018-03-15 10:59 | XMS REPORT ---
Author Author SAMI SUAREZ [facility] Address [facility] [place] [address] Care Team Providers Care Tappet Adjuster Name Role Phone SAMI SUAREZ Unavailable PROBLEMS Type Condition ICD9-CM Code [id number] Code Onset Dates Condition Status SNOMED Code Problem Psoriasis L40.9 Active 3576292 Problem Relationship problem with family member Z63.8 Active 878393975 Problem Essential hypertension I10 Active 21594572 Problem Anxiety F41.9 Active 80635532 Problem Visual disturbance H53.9 Active 22689846 Problem Rheumatoid arthritis involving multiple sites with positive rheumatoid factor M05.79 Active 003741135 Problem Bilateral low back pain with sciatica, sciatica laterality unspecified M54.40 Active 468948441 Problem Hypokalemia E87.6 Active 30500386 Problem Lumbago with sciatica, left side M54.42 Active 627109096 Problem Other chronic pain G89.29 Active 24405961 Problem 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 Active 399111454 Problem Blindness of right eye H54.40 Active 997153605 Problem Posttraumatic stress disorder F43.10 Active 09823766 Problem Overdose T50.901A Active 81239952 Problem Bipolar disorder F31.9 Active 60097030 Problem Borderline personality disorder F60.3 Active 49190410 Problem Obstructive sleep apnea G47.33 Active 87891867 Problem Acquired hypothyroidism E03.9 Active 429556171 Problem Pelvic pain R10.2 Active 52139724 Problem Chronic pain G89.29 Active 39544839 Problem Gastro-esophageal reflux disease without esophagitis K21.9 Active 096938406 Problem Anemia due to other cause, not classified D64.89 Active 126231766 Problem Social anxiety disorder F40.10 Active 25772309 Problem Morbid obesity, unspecified obesity type E66.01 Active 676121429 ALLERGIES No Information ENCOUNTERS Encounter Location Date Diagnosis [facility] [address] [facility] [id number] [place] [address] 77250- 6300 Feb, [place] [address] [id number] [place] [address] 92115- 9669 Dec, [place] [id number] [place] [address] 53923- 0919 Dec, [address] [id number] [id number] Dec, Dental examination Z01.20 [place] [id number] [place] [address] 58398- 8226 Nov, Bipolar disorder F31.9 ; Posttraumatic stress disorder F43.10 and Borderline personality disorder F60.3 [place] [id number] [place] [address] 48756- 5902 Nov, Rheumatoid arthritis involving multiple sites with positive rheumatoid factor M05.79 ; Dysuria R30.0 and Blindness of right eye H54.40 [place] [id number] [place] [address] 05672- 2791 Nov, Bipolar disorder F31.9 ; Posttraumatic stress disorder F43.10 ; Social anxiety disorder F40.10 and Relationship problem with family member Z63.8 [place] [id number] [place] [address] 69679- 2994 Nov, [place] [address] [id number] [place] [address] 08594- 6026 Nov, [place] [address] [address] [id number] [place] [address] 10714- 9662 Nov, 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 ; Adverse effect of antineoplastic and immunosuppressive drugs, initial encounter T45.1X5A ; Anemia , unspecified D64.9 and BMI 40.0-44.9, adult Z68.41 [place] [id number] [place] [address] 16965- 7717 Nov, Anemia due to other cause, not classified D64.89 [place] [address] [place] [address]- 0882 Oct, Adverse effect of drug, initial encounter T50.905A and Acute anemia D64.9 [facility] [address] 47552- 1933 Oct, Anemia due to other cause, not classified D64.89 ; Dysuria R30.0 and Urinary tract infection without hematuria, site unspecified N39.0 [facility] [address] [id number] [place] [address] 32156- 6648 Oct, [facility] [address] 24320- 5302 Oct, [facility] [address] 62975- 2390 Oct, 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 [place] [address] [place] [id number] [place] [address] [id number] Oct, [facility] [address] 57602- 3314 Oct, [facility] [address] [id number] [place] [address] 87160- 8234 Oct, [facility] [address] [id number] [place] [address] 04396- 5932 Oct, Bipolar disorder F31.9 ; Posttraumatic stress disorder F43.10 and Borderline personality disorder F60.3 [facility] [address] [id number] [place] [address] 05198- 6504 Oct, Rheumatoid arthritis involving multiple sites with positive rheumatoid factor M05.79 ; 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 and Anxiety F41.9 [facility] [address] 53444- 3454 Oct, [facility] [address] [id number] [place] [address] 45974- 4661 September, 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 [facility] [address] [place] [address]- 2125 September, Bipolar disorder F31.9 ; Posttraumatic stress disorder F43.10 and Borderline personality disorder F60.3 [place] [id number] [place] [address] 69761- 3305 Aug, BMI 40.0-44.9, adult Z68.41 ; Bipolar disorder F31.9 ; Posttraumatic stress disorder F43.10 and Social anxiety disorder F40.10 [place] [address] 28841- 4171 Aug, Bipolar disorder F31.9 ; Posttraumatic stress disorder F43.10 and Borderline personality disorder F60.3 [place] [address] 91976- 6905 Aug, 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 [place] [address] 25768- 5951 Jul, Bipolar disorder F31.9 ; Posttraumatic stress disorder F43.10 and Borderline personality disorder F60.3 [place] [id number] [place] [address] 90680- 6629 Jul, [place] [address] 58547- 8385 Jun, Bipolar disorder F31.9 ; Posttraumatic stress disorder F43.10 and Borderline personality disorder F60.3 [place] [address] 50955- 3762 Jun, Blindness of right eye H54.40 and Acquired hypothyroidism E03.9 [place] [id number] [place] [address] 37018- 2992 Jun, [place] [address] [place] [address]26060- 0073 May, Posttraumatic stress disorder F43.10 ; Social anxiety disorder F40.10 and Bipolar disorder F31.9 [place] [address] [place] 11226762- 2546 May, Bipolar disorder F31.9 ; Posttraumatic stress disorder F43.10 and Borderline personality disorder F60.3 [facility] [address] [address]- 5488 May, [facility] [id number], [place] [address]- 3854 May, [facility] [id number] [place] [address] 47681- 6212 Apr, Bipolar disorder F31.9 ; Posttraumatic stress disorder F43.10 and Borderline personality disorder F60.3 [address] [id number] Apr, [facility] [address], [place] [address]- 7021 Apr, [facility] [address] [place] [address] 08175- 4990 Mar, Hydradenitis L73.2 [facility] [address] [place] [address] 72058- 1636 Mar, Lumbago with sciatica, left side M54.42 ; Other chronic pain G89.29 ; Morbid obesity, unspecified obesity type E66.01 ; Hydradenitis L73.2 and BMI 40.0-44.9, adult Z68.41 [facility] [address], [place] [address]- 1501 Mar, Bipolar disorder F31.9 ; Posttraumatic stress disorder F43.10 and Borderline personality disorder F60.3 [facility] [address], [place] [address]- 3623 Mar, Social anxiety disorder F40.10 ; Bipolar disorder F31.9 and Relationship problem with family member Z63.8 [facility] [id number], [place] [address]- 8886 Mar, [address] [id number] [id number] Mar, Dental examination Z01.20 [facility] [address], [place] [address]- 8854 Mar, [facility] [id number] [place] [address] 09597- 9625 Feb, Bipolar disorder F31.9 ; Posttraumatic stress disorder F43.10 and Borderline personality disorder F60.3 [facility] [address] [place] [address] [id number] Feb, [facility] [address] [place] [address] 28625- 8998 14 Jan, 2017 Bipolar disorder F31.9 ; Posttraumatic stress disorder F43.10 and Borderline personality disorder F60.[address] [id number] [id number] Jan, [facility] [id number] [place] [address] 31059- 2330 Jan, [facility] [address] [place] [address] [id number] Jan, [facility] [address] [place] [address] 26669- 5548 Dec, Bipolar disorder F31.9 ; Posttraumatic stress disorder F43.10 and Borderline personality disorder F60.3 [facility] [address] [place] [address] 71765- 6627 Dec, [facility] [id number] [place] [address] 66669- 1490 Dec, [facility] [address] [facility] [id number] [place] [address] [id number] Dec, [facility] [id number] [place] [address] 91987- 7189 Nov, Bipolar 1 disorder F31.9 ; Posttraumatic stress disorder F43.10 and Social anxiety disorder F40.10 [facility] [address] [place] [address] 57239- 2122 Nov, Bipolar disorder F31.9 ; Posttraumatic stress disorder F43.10 and Borderline personality disorder F60.3 [place] [id number] [place] [address] 58592- 5765 Nov, Morbid obesity, unspecified obesity type E66.01 [place] [address] [place] [address] 08972- 2164 Nov, [address] [id number] [id number] Oct, Encounter for dental examination and cleaning without abnormal findings Z01.20 [place] [address] [id number] [place] [address] 44360- 4079 Oct, Morbid obesity, unspecified obesity type E66.01 and Acute seasonal allergic rhinitis due to pollen J30.1 [place] [address] [id number] [place] [address] 37295- 6301 Oct, Bipolar disorder F31.9 ; Posttraumatic stress disorder F43.10 and Borderline personality disorder F60.3 [place] [address] [id number] [place] [address] 22234- 7029 September, Morbid obesity, unspecified obesity type E66.01 and Psoriasis L40.9 [place] [address] [place] [address] 39770- 3259 September, Bipolar disorder F31.9 ; Posttraumatic stress disorder F43.10 and Borderline personality disorder F60.3 [place] [address] [place] [address] 37980- 7906 September, Chronic pain G89.29 [place] [id number] [place] [address] 99736- 3382 Aug, Other acute nonsuppurative otitis media of right ear H65.191 and Morbid obesity, unspecified obesity type E66.01 [place] [address], [place] [address]- 8545 Aug, Bipolar 1 disorder F31.9 ; Posttraumatic stress disorder F43.10 and Social anxiety disorder F40.10 [facility] [id number] [place] [address] 24957- 9594 Aug, Bipolar disorder F31.9 ; Posttraumatic stress disorder F43.10 and Borderline personality disorder F60.3 [facility] [id number] [place] [address] 18675- 5151 Jul, Morbid obesity due to excess calories E66.01 ; Gastro- esophageal reflux disease without esophagitis K21.9 and Chronic pain G89.29 [facility] [address] [id number] [place] [address] 88988- 9158 Jul, Morbid obesity due to excess calories E66.01 [facility] [address] [place] [address] [id number] [place] [address] 80582- 5435 Jul, [place] [address] [id number] [place] [address] 87470- 5648 Jul, [facility] [id number] [place] [address] 77881- 9188 Jul, Morbid obesity due to excess calories E66.01 [facility] [address] [place] [id number] [place] [address] 74806- 3009 Jul, Bipolar disorder F31.9 ; Posttraumatic stress disorder F43.10 and Borderline personality disorder F60.3 [facility] [address] [id number] [place] [address] 49271- 5691 Jun, [facility] [address] [id number] [place] [address] 63186- 2178 Jun, Morbid obesity due to excess calories E66.01 [facility] [id number] [place] [address] 29985- 2678 Jun, [facility] [address] [id number] [place] [address] 57319- 3898 Jun, Morbid obesity, unspecified obesity type E66.01 [facility] [address] [id number] [place] [address] 97618- 4786 Jun, Bipolar disorder F31.9 ; Posttraumatic stress disorder F43.10 and Borderline personality disorder F60.3 [facility] [address] [place] [address] 16093- 4091 Jun, [facility] [address] [id number] [place] [address] 75831- 2666 Jun, [facility] [address] [place] [id number] [place] [address] 33562- 1433 Jun, Acquired hypothyroidism E03.9 and Morbid obesity due to excess calories E66.01 [place] [id number] [place] [address] 32670- 2199 May, Bipolar disorder F31.9 ; Posttraumatic stress disorder F43.10 and Borderline personality disorder F60.3 [place] [address] [id number] [place] [address] 26613- 7038 Apr, Bipolar 1 disorder F31.9 ; Posttraumatic stress disorder F43.10 and Social anxiety disorder F40.[address] [place] [address] [id number] [id number] Apr, Encounter for dental examination Z01.20 [facility] [address] [place] [address] 18157- 0922 Apr, [place] [id number] [place] [address] 34944- 2034 Apr, Acquired hypothyroidism E03.9 [facility] [address] [place] [id number] [place] [address] 93340- 6424 Apr, Acquired hypothyroidism E03.9 [place] [id number] [place] [address] 61830- 4794 Apr, Bipolar disorder F31.9 ; Posttraumatic stress disorder F43.10 and Borderline personality disorder F60.3 [facility] [address] [place] [address] 10257- 5508 06 Dec, 2016 Acquired hypothyroidism E03.9 [facility] [address] [id number] [id number] Mar, Encounter for dental examination and cleaning without abnormal findings Z01.20 [facility] [address] [place] [address] 54809- 7854 08 Mar, 2016 [facility] [address] [place] [id number] [place] [address] 05451- 8775 Mar, Bipolar disorder F31.9 ; Posttraumatic stress disorder F43.10 and Borderline personality disorder F60.3 [facility] [address] [id number] [place] [address] 49353- 3643 Mar, Essential (primary) hypertension I10 [place] [id number] [place] [address] 06797- 1881 Feb, [place] [id number] [place] [address] 03432- 4405 Feb, [facility] [address] [id number] [place] [address] 38118- 4221 Feb, Pelvic pain R10.2 ; Lipid screening Z13.220 ; Fatigue, unspecified type R53.83 and Weight gain R63.5 [place] [address] [place] [address] 53346- 8307 Feb, Bipolar disorder F31.9 ; Posttraumatic stress disorder F43.10 and Borderline personality disorder F60.3 [place] [id number] [place] [address] 89472- 3148 Feb, [facility] [address] [id number] [place] [address] 75867- 3735 Feb, [facility] [address] [id number] [place] [address] 65620- 0477 30 Jan, 2016 Obstructive sleep apnea syndrome G47.33 [facility] [address], [place] [address]- 0864 Jan, [facility] [address] [id number][place] [id number] Jan, Dental examination Z01.20 [facility] [address] [place] [address] 69725- 0037 Jan, Bipolar 1 disorder F31.9 ; Posttraumatic stress disorder F43.10 and Social anxiety disorder F40.10 [facility] [address] [place] [address] 84555- 2428 Jan, Bipolar disorder F31.9 ; Posttraumatic stress disorder F43.10 and Borderline personality disorder F60.3 [facility] [address] [place] [address] 67545- 6837 Jan, Sciatica of left side M54.32 [facility] [id number] [place] [address] 54936- 4208 Jan, [facility] [id number] [place] [address] 27190- 6252 Dec, [facility] [address] [place] [address] 88731- 1704 Dec, [facility] [id number] [place] [address] 98135- 7401 Dec, Bipolar disorder F31.9 ; Posttraumatic stress disorder F43.10 and Borderline personality disorder F60.3 [facility] [address], [place] [address]- 2679 Nov, [facility] [address] [place] [address] 98396- 5636 Nov, Insomnia, unspecified type G47.00 [facility] [id number] [place] [address] 43557- 3957 Nov, Bipolar disorder F31.9 ; Posttraumatic stress disorder F43.10 and Borderline personality disorder F60.3 [facility] [address] [place] [address] 22429- 6174 Nov, [facility] [id number] [place] [address] 28605- 9426 Nov, [facility] [address] [place] [address] 18658- 3870 Oct, Bipolar disorder F31.9 ; Posttraumatic stress disorder F43.10 and Borderline personality disorder F60.3 [facility] [address], [place] [address]- 8747 Oct, [facility] [id number] [place] [address] 22075- 6565 Oct, Essential (primary) hypertension I10 [facility] [id number] [place] [address] 77597- 6073 September, Bipolar 1 disorder F31.9 ; Posttraumatic stress disorder F43.10 and Social anxiety disorder F40.10 [facility] [address] [place] [address] 21824- 2244 September, Bipolar disorder F31.9 ; Posttraumatic stress disorder F43.10 and Borderline personality disorder F60.[address] [place] [address] [id number] [id number] September, Encounter for dental examination and cleaning without abnormal findings Z01.20 [facility] [address], [place] [address]- 7602 September, [facility] [address], [place] [address]- 7118 September, [facility] [id number] [place] [address] 94855- 2876 Aug, [facility] [address] [place] [address] 37782- 0675 Aug, Bipolar disorder F31.9 ; Posttraumatic stress disorder F43.10 and Borderline personality disorder F60.3 [facility] [address], [place] [address]- 2707 Aug, [facility] [id number] [place] [address] 33628- 4399 Aug, [facility] [id number], [place] [address]- 4609 Aug, [facility] [id number] [id number] Jul, Acute nasopharyngitis [common cold] J00 and Other viral agents as the cause of diseases classified elsewhere B97.89 [facility] [address] [place] [address] 96813- 0851 24 Jul, 2015 Chronic pain G89.29 and Allergic rhinitis J30.9 [facility] [address] [place] [address] 41458- 0377 24 Jul, 2015 Bipolar 1 disorder F31.9 ; Posttraumatic stress disorder F43.10 and Social anxiety disorder F40.10 [facility] [address] [place] [address] 25940- 0518 16 Jul, 2015 Bipolar 1 disorder F31.9 [facility] [address] [place] [address] 48694- 8666 16 Jul, 2015 Bipolar disorder F31.9 ; Posttraumatic stress disorder F43.10 and Borderline personality disorder F60.3 [facility] [address] [place] [address] 90397- 5580 14 Jul, 2015 [facility] [address], [place] [address]- 3505 14 Jul, 2015 [facility] [address] [place] [address] 69614- 7862 11 Jul, 2015 [facility] [address] [place] [address] 07277- 3010 10 Jul, 2015 Anxiety F41.9 [facility] [address] [place] [address] 16706- 6118 10 Jul, 2015 Chronic pain G89.29 and Encounter for therapeutic drug level monitoring Z51.81 [facility] [address] [place] [address] 23965- 8013 Jul, Chronic pain G89.29 and Encounter for therapeutic drug level monitoring Z51.81 [facility] [address] [place] [address] 29444- 3083 Jul, [facility] [id number] [place] [address] 53608- 6064 Jun, [facility] [id number] [place] [address] 64006- 8963 Jun, [facility] [id number] [place] [address] 20904- 9455 Jun, [facility] [id number] [place] [address] 61309- 0862 Jun, [facility] [id number] [place] [address] 49783- 2338 Jun, High risk medication use V58.69 [facility] [id number] [place] [address] 42616- 0214 Jun, [facility] [id number] [place] [address] 28776- 8320 Jun, Bipolar 1 disorder F31.9 ; Overdose T50.901A and Chronic pain G89.29 [facility] [id number] [place] [address] 08098- 8715 Jun, Bipolar disorder F31.9 ; Posttraumatic stress disorder F43.10 and Borderline personality disorder F60.3 [facility] [id number] [place] [address] 46547- 6080 Jun, [facility] [id number] [place] [address] 70590- 2563 Jun, [facility] [id number] [place] [address] 93790- 9687 Jun, Keloid L91.0 [facility] [id number] [place] [address] 41254- 4846 Jun, [facility] [address], [place] [address]- 7528 May, [facility] [id number] [place] [address] 20981- 4140 May, [facility] [address] [place] [address] 43337- 0916 May, Pelvic pain R10.2 [facility] [id number] [place] [address] 36253- 1875 May, [facility] [facility] [id number] [place] [address]19- 3406 May, Pain of left thumb M79.645 ; Incisional pain R20.8 ; Pelvic pain R10.2 and Essential hypertension I10 [facility] [id number] [place] [address] 72259- 5819 May, [facility] [id number] [place] [address] 37656- 2873 May, [address] [id number] [id number] May, Dental examination Z01.20 and Necrosis of pulp K04.1 [facility] [address], [place] [address] 7739 Apr, [facility] [id number] [place] [address] 91629- 0153 Apr, [facility] [address], [place] [address]- 6586 Apr, [facility] [id number] [place] [address] 30864- 2899 Apr, [facility] [address], [place] [address]- 0584 Apr, [facility] [id number] [place] [address] 44271- 1971 Apr, [facility] [address] [facility] [id number], [place] [address] 264[address] Apr, 2014 [facility] [address] [facility] [id number] [place] [address]- 6699 Apr, 2014 [facility] [address] [facility] [id number] [place] [address] 5207 Mar, [facility] [address] [facility] [id number] [place] [address], [place] [address]- 9567 Mar, [facility] [address] [facility] [id number] [place] [address]- 8038 Mar, [facility] [address] [facility] [id number] [place] [address], [place] 7043 Mar, [facility] [address] [facility] [id number] [place] [address]782 Feb, [facility] [address] [facility] [id number] [place] [address] 48529- 7113 Feb, [facility] [address] [facility] [id number], [place] [address]- 2141 Feb, [facility] [address] [facility] [id number], [place] [address]- 0173 Feb, [facility] [address] [facility] [id number], [place] [address]- 0627 Feb, [facility] [address] [facility] [id number], [place] [address]- 9092 Feb, [facility] [address] [facility] [id number], [place] [address]- 9060 Feb, [facility] [address] 6004 Feb, Dermatofibroma of left lower leg D23.72 [facility] [address] [facility] [id number][place] [address]600 Feb, Hematochezia 578.1 ; Low back pain M54.5 ; High risk medication use V58.69 ; Cervicalgia M54.[address] [facility] [address] [id number][place] [id number] Feb, Dental examination Z01.20 ; Pulpitis K04.0 and Dental caries, unspecified K02.9 [facility] [address] [id number][place] [id number] Feb, Dental examination Z01.20 [facility] [address] [id number] [place] [address] 04708- 2646 30 Jan, 2015 [facility] [address] [facility] [id number] [place] [address] 40266- 4287 Jan, [facility] [id number] [place] [address] 95103- 7511 Jan, [facility] [id number] [place] [address] 86766- 7995 Jan, [facility] [id number] [place] [address] 43261- 3952 Dec, [facility] [id number] [place] [address] 94671- 8629 Dec, [facility] [id number] [place] [address] 27032- 0222 Dec, [facility] [id number] [place] [address] 14361- 8172 Dec, [facility] [address] [id number], [place] [address]- 5680 Dec, [facility] [id number] [place] [address] 33832- 8167 Dec, [facility] [address] [facility] [id number], [place] [address]- 9120 Dec, [facility] [id number] [place] [address] 05954- 5781 Dec, [facility] [address] [id number] [id number] Nov, Encounter for removal of sutures V58.32 [facility] [address], [place] [address]- 6781 Nov, [facility] [address]65[address], [place] [address]- 3010 Nov, [facility] [address]65100[place], [place] [address]- 3915 Nov, [facility] [address], [place] [address]- 2237 Nov, [facility] [address]65[address], [place] [address]- 8087 Nov, [facility] [address]65[address], [place] [address]- 9474 Nov, [facility] [address]65100[place], [place] [address]- 8398 Nov, [facility] [address], [place] [address]- 4020 Nov, Dermatofibroma 216.9 [facility] [address], [place] [address]- 0193 Nov, [facility] [address] [id number], [place] [address]- 7779 Nov, [facility] [address] [id number], [place] [address]- 7692 Oct, [facility] [address] [id number] [address]- 2232 Oct, Hematochezia 578.1 ; Abscess 682.9 ; GERD (gastroesophageal reflux disease) 530.81 ; Visual disturbance of one eye 368.9 and High risk medication use V58.69 [facility] [address] [id number], [place] [address]- 0690 Oct, [facility] [address] [id number] [place] [address]- 1387 Oct, [facility] [address] [id number] [place] [address]- 6434 Oct, [facility] [address] [id number] [place] [address]- 6749 September, [facility] [address] [id number] [place] [address]- 6447 September, [facility] [address] [id number] [place] [address]- 6672 September, [facility] [address] [id number] [place] [address]- 6112 September, [facility] [address] [id number] [place] [address]- 6207 September, [facility] [address] [facility] [id number] [place] [address]- 6084 September, Colon cancer screening V76.51 [facility] [address] [id number] [place] [address]- 5518 September, [facility] [address] [id number] [place] [address]- 5540 Aug, [facility] [address] [id number] [place] [address]- 8388 Aug, [facility] [place] [facility] [address] [id number], [place] [address]- 5312 Jul, [facility] [place] [facility] [address] [id number] [place] [address]- 5339 Jul, [facility] [place] [facility] [address] [id number] [place] [address]- 3372 Jul, [facility] [place] [facility] [address] [id number] [place] [address]- 1863 Jul, [facility] [address] [id number] [place] [address]- 5596 Jun, [facility] [place] [facility] [address] [id number] [place] [address]- 4926 Jun, [facility] [place] [facility] [address] [id number] [place] [address]- 6236 Jun, [facility] [place] [facility] [address] [id number] [place] [address]- 4296 Jun, [facility] [place] [facility] [address] [id number] [place] [address]- 2919 Jun, [facility] [place] [facility] [address] [id number] [place] [address]- 0916 Jun, [facility] [place] [facility] [address] [facility] [id number] [place] [address]- 7180 May, [facility] [place] [facility] [address] [id number] [place] [address]- 2122 May, [facility] [place] [facility] [address] [id number] [place] [address]- 3011 May, [facility] [place] [facility] [address] [id number] [place] [address]- 7668 May, [facility] [place] [facility] [address] [facility] [id number] [place] [address]- 3670 May, [facility] [place] [facility] [address] [id number] [place] [address]- 6342 May, [facility] [place] [facility] [address] [id number] [place] [address]- 6783 May, [facility] [place] [facility] [address] [id number] [place] [address]- 4304 May, [facility] [place] [facility] [address] [id number] [place] [address]- 7876 Apr, [facility] [place] [facility] [address] [id number] [place] [address]- 1791 Apr, [facility] [place] [facility] [address] [id number] [place] [address]- 4068 Apr, [facility] [place] [facility] [address] [id number] [place] [address]- 5215 Apr, [facility] [place] [facility] [address] [id number] [place] [address]- 6551 Apr, [facility] [place] [facility] [address] [id number] [place] [address]- 7826 Apr, [facility] [place] [facility] [address] [id number] [place] [address]- 2539 Apr, [facility] [place] [facility] [address] [id number] [place] [address]- 7614 Apr, [facility] [place] [facility] [address] [id number] [place] [address]- 6678 Mar, [facility] [place] [facility] [address] [id number] [place] [address]- 7433 Mar, [facility] [place] [facility] [address] [id number] [place] [address]- 6332 Mar, [facility] [place] [facility] [address] [id number] [place] [address]- 0370 Mar, [facility] [place] [facility] [address] [id number], [place] [address]- 1491 Mar, [facility] [place] [facility] [address] [id number], [place] [address]- 7180 Mar, [facility] [place] [facility] [address] [id number] [place] [address]- 9119 Mar, [facility] [place] [facility] [address] [id number] [place] [address]- 0788 Mar, [facility] [place] [facility] [address] [id number] [place] [address]- 4218 Mar, [facility] [place] [facility] [address] [id number] [place] [address]- 5132 Mar, [facility] [place] [facility] [address] [id number] [place] [address]- 6799 Feb, [facility] [place] [facility] [address] [id number] [place] [address]- 3127 Feb, [facility] [place] [facility] [address] [id number] [place] [address]- 7820 Jan, [facility] [place] [facility] [address] [id number] [place] [address]- 4204 Jan, [facility] [place] [facility] [address] [id number] [place] [address]- 3186 Jan, [facility] [place] [facility] [address] [id number] [place] [address]- 6376 Jan, [facility] [place] [facility] [address] [id number] [place] [address]- 2759 Dec, [facility] [place] [facility] [address] [id number] [place] [address]- 6742 Dec, [facility] [place] [facility] [address] [id number] [place] [address]- 0485 Dec, [facility] [place] [facility] [address] [id number] [place] [address]- 9586 Dec, [facility] [place] [facility] [address] [id number] [place] [address]- 6343 Dec, [facility] [place] [facility] [address] [id number] [place] [address]- 6308 Dec, [facility] [place] [facility] [address] [id number] [place] [address]- 9738 Nov, [facility] [place] [facility] [address] [id number] [place] [address]- 9358 Nov, [facility] [place] [facility] [address] [id number] [place] [address]- 7897 Oct, [facility] [place] [facility] [address] [id number] [place] [address]- 9363 Oct, [facility] [place] [facility] [address] [id number] [place] [address]- 2304 Oct, [facility] [place] [facility] [address] [id number] [place] [address]- 8031 Oct, [facility] [place] [facility] [address] [id number] [place] [address]- 7820 September, [facility] [place] [facility] [address] [id number] [place] [address]- 2338 September, [facility] [place] [facility] [address] [id number] [place] [address]- 7657 September, [facility] [place] [facility] [address] [id number] [place] [address]- 2989 September, [facility] [place] [facility] [address] [id number] [place] [address]- 6261 September, [facility] [place] [facility] [address] [id number] [place] [address]- 3092 September, [facility] [place] [facility] [address] [id number] [place] [address]- 8093 September, [facility] [place] [facility] [address] [id number] [place] [address]- 9225 September, [facility] [place] [facility] [address] [id number] [place] [address]- 0790 Aug, [facility] [place] [facility] [address] [id number] [place] [address]- 8575 Aug, [facility] [place] [facility] [address] [id number] [place] [address]- 6888 Aug, [facility] [place] [facility] [address] [id number] [place] [address]- 4456 Aug, [facility] [place] [facility] [address] [id number], [place] [address]- 7536 Aug, [facility] [place] [facility] [address] [id number] [place] 1444 Aug, [facility] [place] [facility] [address] [id number] [place] [address]- 2889 Jul, [facility] [place] [facility] [address] [facility] [id number] [place] [address]- 0804 Jul, [facility] [place] [facility] [address] [id number], [place] [address]- 0629 Jul, [facility] [place] [facility] [address] [facility] [id number] [place] [address]- 7122 Jul, [facility] [place] [facility] [address] [facility] [id number] [place] [address]- 0000 Jun, [facility] [place] [facility] [address] [facility] [id number] [place] [address]- 9785 Jun, [facility] [place] [facility] [address] [id number] [place] [address]- 1966 Jun, [facility] [place] [facility] [address] [facility] [id number] [place] [address]- 0419 Jun, [facility] [place] [facility] [address] [facility] [id number] [place] [address]- 8742 Jun, [facility] [place] [facility] [address] [facility] [id number] [place] [address]- 4171 Jun, [facility] [place] [facility] [address] [id number], [place] [address]- 3954 May, [facility] [place] [facility] [address] [id number], [place] [address]- 2471 May, [facility] [place] [facility] [address] [id number], [place] [address]- 7763 May, [facility] [place] [facility] [address] [facility] [id number], [place] [address]- 8660 May, [facility] [place] [facility] [address] [id number] [place] [address]- 6153 May, [facility] [address] [id number] [place] [address]- 6136 May, [facility] [address] [id number] [place] [address]- 2546 May, [facility] [address] [id number] [place] [address]- 9586 May, [facility] [address] [id number] [place] [address]- 7968 16 Apr, 2013 [facility] [address] [place] [id number] Apr, [facility] [address] [id number] [place] [address]- 0046 16 Apr, 2013 [facility] [address] [id number] [place] [address]- 9607 Apr, [facility] [address] [id number] [place] [address]- 0980 Apr, [facility] [address] [id number] [place] [address]- 8961 Apr, [facility] [address] [id number] [place] [address]- 4492 05 Apr, 2013 [facility] [address] [id number] [place] [address]- 0546 05 Apr, 2013 [facility] [address] [id number] [place] [address]- 6936 04 Apr, 2013 [facility] [address] [id number] [place] [address]- 4184 Mar, [facility] [address] [id number] [place] [address]- 2546 Mar, [facility] [address] [id number] [place] [address]- 0953 Mar, [facility] [address] [id number] [place] [address]- 9155 Mar, [facility] [place] [facility] [address] [id number] [place] [address]- 7540 Mar, [facility] [place] [facility] [address] [id number] [place] [address]- 8199 Feb, [facility] [place] [facility] [address] [id number] [place] [address]- 2407 Feb, [facility] [place] [facility] [address] [id number] [place] [address]- 5140 Feb, [facility] [place] [facility] [address] [id number] [place] [address]- 2590 Feb, [facility] [place] [facility] [address] [id number] [place] [address]- 1609 Jan, [facility] [place] [facility] [address] [id number] [place] [address]- 2560 Jan, [facility] [place] [facility] [address] [id number] [place] [address]- 8948 Jan, [facility] [place] [facility] [address] [id number], [place] [address]- 8532 Dec, [facility] [place] [facility] [address] [id number], [place] [address]- 8701 Dec, [facility] [place] [facility] [address] [id number], [place] [address]- 3544 Dec, [facility] [address] [id number] [place] [id number] Nov, [facility] [address] [id number] [place] [id number] Oct, [facility] [place] [facility] [address] [id number] [place] [address] 2546 Oct, [facility] [place] [facility] [address] [id number], [place] [address]- 6996 September, [facility] [address] [id number] [place] [address]- 3014 September, [facility] [address] [id number] [place] 8618 September, [facility] [address] [id number] [place] [address]- 7133 September, [facility] [address] [id number] [place] [address]- 4166 September, [facility] [address] [id number] [place] [address]- 6640 Jul, [facility] [address] [id number] [place] [address]- 8833 Jul, [facility] [address] [id number] [place] [address]- 3851 Jul, [facility] [address] [id number] [place] [address]- 2822 Jul, [facility] [address] [id number] [place] [address]- 3344 Jun, [facility] [address] [id number] [place] [address]- 5977 Jun, [facility] [address] [id number] [place] [address]- 1440 Jun, [facility] [place] [facility] [address] [id number], [place] [address]- 0970 Jun, [facility] [place] [facility] [address] [id number] [place] 7900 May, [facility] [place] [facility] [address] [id number] [place] [address]- 6966 Mar, [facility] [place] [facility] [address] [id number] [place] [address]- 6238 Mar, [facility] [place] [facility] [address] [facility] [id number], [place] [address] Mar, [facility] [place] [facility] [address] [facility] [id number], [place] [address] Mar, [facility] [place] [facility] [address] [facility] [id number], [place] [address] Mar, [facility] [place] [facility] [address] [facility] [id number], [place] [address] Mar, [facility] [place] [facility] [address] [facility] [id number] [place] [address] Mar, [facility] [place] [facility] [address] [facility] [id number] [place] [address] Mar, [facility] [place] [facility] [address] [facility] [id number], [place] [address] Feb, [facility] [place] [facility] [address] [facility] [id number], [place] [address] Feb, [facility] [place] [facility] [address] [facility] [id number], [place] [address] Feb, [facility] [place] [facility] [address] [facility] [id number], [place] [address] Feb, [facility] [place] [facility] [address] [facility] [id number], [place] [address] Feb, [facility] [place] [facility] [address] [facility] [id number], [place] [address] Feb, [facility] [place] [facility] [address] [facility] [id number], [place] [address] Feb, [facility] [address] [id number][place] [id number] Jan, [facility] [address] [id number][place] [id number] Dec, [facility] [address] [facility] [id number][place] [id number] Dec, [facility] [place] [facility] [address] [facility] [id number] [place] [address] 30 Nov, 2011 [facility] [address] [id number] [place] [address] Nov, [facility] [place] [facility] [address] [id number] [place] [address] Oct, [facility] [address] [id number] [place] [address] 15 Jul, 2011 [facility] [place] [facility] [address] [id number] [place] [address] Jul, [facility] [id number] [place] [address], [place] [address] May, [facility] [place] [facility] [address] [id number] [place] [address] May, [facility] [address] [id number], [place] [address] Nov, [facility] [place] [facility] [address] [id number] [place] [address] Mar, [facility] [address] [id number] [place] [address] Dec, [facility] [place] [facility] [address] [id number] [place] [address] Nov, [facility] [place] [facility] [address] [id number] [place] [address] Aug, [facility] [place] [facility] [address] [id number], [place] [address] Apr, [facility] [place] [facility] [address] [id number] [place] [address] Apr, [facility] [place] [facility] [address] [id number], [place] [address] 30 Mar, 2009 [facility] [place] [facility] [address] [id number], [place] [address] Feb, [facility] [place] [facility] [address] [facility] [id number] [place] [address] September, [facility] [address] [facility] [id number], [place] [address] Jun, [facility] [address] [facility] [id number] [place] [address] Mar, IMMUNIZATIONS No Known Immunizations SOCIAL HISTORY Never Assessed REASON FOR VISIT f/u PLAN OF CARE Activity Details Follow Up 3 Weeks Reason: F/U VITAL SIGNS MEDICATIONS Unknown Medications RESULTS No Results PROCEDURES Procedure Date Ordered Result Body Site Psychotherapy, patient &/family, 45 minutes, established patient September 29, 2017 INSTRUCTIONS MEDICATIONS ADMINISTERED No Known Medications [...] hernia Hospitalization History Went by ambulance to [facility] as unresponsive 05/2015 Hospitalization History [facility] psych hold 05/2015
--- OUTSIDE RECORDS SUMMARY | 2018-03-15 11:00 | XMS REPORT ---
Author Author HERBERT MCGOWAN Organization [facility] Address [facility] [place] [address] Care Team Providers Care Periodicals Library Assistant Name Role Phone HERBERT MCGOWAN Unavailable PROBLEMS Type Condition ICD9-CM Code IPI87-NU Code Onset Dates Condition Status SNOMED Code Problem Psoriasis L40.9 Active 4515227 Problem Relationship problem with family member Z63.8 Active 804803067 Problem Essential hypertension I10 Active 65189442 Problem Anxiety F41.9 Active 13925300 Problem Visual disturbance H53.9 Active 54746193 Problem Rheumatoid arthritis involving multiple sites with positive rheumatoid factor M05.79 Active 261829789 Problem Bilateral low back pain with sciatica, sciatica laterality unspecified M54.40 Active 064859349 Problem Hypokalemia E87.6 Active 89310761 Problem Lumbago with sciatica, left side M54.42 Active 158580353 Problem Other chronic pain G89.29 Active 90813551 Problem 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 Active 714709337 Problem Blindness of right eye H54.40 Active 576509416 Problem Posttraumatic stress disorder F43.10 Active 05580821 Problem Overdose T50.901A Active 19680564 Problem Bipolar disorder F31.9 Active 46013814 Problem Borderline personality disorder F60.3 Active 16488214 Problem Obstructive sleep apnea G47.33 Active 75695817 Problem Acquired hypothyroidism E03.9 Active 141356764 Problem Pelvic pain R10.2 Active 76237774 Problem Chronic pain G89.29 Active 10333352 Problem Gastro-esophageal reflux disease without esophagitis K21.9 Active 001043541 Problem Anemia due to other cause, not classified D64.89 Active 834391269 Problem Social anxiety disorder F40.10 Active 78712953 Problem Morbid obesity, unspecified obesity type E66.01 Active 618636421 ALLERGIES No Information ENCOUNTERS Encounter Location Date Diagnosis [facility] [address], [place] [address] Feb, [place] [address] [place] [address] 72279- 7273 Dec, [place] [address], [place] [address] Dec, [address] [id number] [id number] Dec, Dental examination Z01.20 [place] [address] [id number] [place] [address] 81221- 1774 Nov, Bipolar disorder F31.9 ; Posttraumatic stress disorder F43.10 and Borderline personality disorder F60.3 [place] [address] [place] [address] 70870- 1844 Nov, Rheumatoid arthritis involving multiple sites with positive rheumatoid factor M05.79 ; Dysuria R30.0 and Blindness of right eye H54.40 [place] [address] [place] [address] 26976- 3515 Nov, Bipolar disorder F31.9 ; Posttraumatic stress disorder F43.10 ; Social anxiety disorder F40.10 and Relationship problem with family member Z63.8 [place] [address], [place] [address] Nov, [place] [address] [place] [address] 14425- 0210 Nov, [place] [address] [id number] [place] [address] 02905- 0256 Nov, 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 ; Adverse effect of antineoplastic and immunosuppressive drugs, initial encounter T45.1X5A ; Anemia , unspecified D64.9 and BMI 40.0-44.9, adult Z68.41 [place] [address] [place] [address] 45414- 6416 Nov, Anemia due to other cause, not classified D64.89 [place] [address] [place] [id number] [place] [address] 51780- 8813 Oct, Adverse effect of drug, initial encounter T50.905A and Acute anemia D64.9 [facility] [id number] [place] [address] 91513- 2167 Oct, Anemia due to other cause, not classified D64.89 ; Dysuria R30.0 and Urinary tract infection without hematuria, site unspecified N39.0 [facility] [id number] [place] [address] 84957- 3134 Oct, [facility] [id number] [place] [address] 67826- 8846 Oct, [facility] [id number] [place] [address] 78052- 3730 Oct, 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 [facility] [id number] [place] [address] [id number] Oct, [facility] [id number] [place] [address] 89964- 4877 Oct, [facility] [id number] [place] [address] 28361- 7644 Oct, [facility] [id number] [place] [address] 94007- 8106 Oct, Bipolar disorder F31.9 ; Posttraumatic stress disorder F43.10 and Borderline personality disorder F60.3 [facility] [id number] [place] [address] 83811- 1603 Oct, Rheumatoid arthritis involving multiple sites with positive rheumatoid factor M05.79 ; 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 and Anxiety F41.9 [facility] [id number] [place] [address] 59884- 2091 Oct, [facility] [id number] [place] [address] 97838- 2960 September, 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 [facility] [address] [place] [address] [address] [place] [address] 3615 September, Bipolar disorder F31.9 ; Posttraumatic stress disorder F43.10 and Borderline personality disorder F60.3 [place] [id number] [place] [address] 07102- 6336 Aug, BMI 40.0-44.9, adult Z68.41 ; Bipolar disorder F31.9 ; Posttraumatic stress disorder F43.10 and Social anxiety disorder F40.10 [place] [address] 38781- 5003 Aug, Bipolar disorder F31.9 ; Posttraumatic stress disorder F43.10 and Borderline personality disorder F60.3 [place] [address] 91805- 0757 Aug, 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 [place] [address] 18883- 5930 Jul, Bipolar disorder F31.9 ; Posttraumatic stress disorder F43.10 and Borderline personality disorder F60.3 [place] [address] 03031- 9175 Jul, [place] [address] 95455- 6212 Jun, Bipolar disorder F31.9 ; Posttraumatic stress disorder F43.10 and Borderline personality disorder F60.3 [place] [address] [id number] [place] [address] 44414- 2320 Jun, Blindness of right eye H54.40 and Acquired hypothyroidism E03.9 [place] [address] [id number] [place] [address] 17680- 5669 Jun, [place] [id number] [place] [address] May, Posttraumatic stress disorder F43.10 ; Social anxiety disorder F40.10 and Bipolar disorder F31.9 [place] [address] [place] [id number]- 2546 May, Bipolar disorder F31.9 ; Posttraumatic stress disorder F43.10 and Borderline personality disorder F60.3 [facility] [address], [place] [address] 6361 May, [facility] [address], [place] [address]- 7497 May, [facility] [address] [place] [address] 13661- 2245 Apr, Bipolar disorder F31.9 ; Posttraumatic stress disorder F43.10 and Borderline personality disorder F60.3 [address] [id number] Apr, [facility] [address] [place] [address] 44163- 1386 Apr, [facility] [address] [place] [address] 90905- 4682 Mar, Hydradenitis L73.2 [facility] [address] [place] [address] 95897- 0855 15 Mar, 2017 Lumbago with sciatica, left side M54.42 ; Other chronic pain G89.29 ; Morbid obesity, unspecified obesity type E66.01 ; Hydradenitis L73.2 and BMI 40.0-44.9, adult Z68.41 [facility] [address] [place] [address] 74232- 4072 Mar, Bipolar disorder F31.9 ; Posttraumatic stress disorder F43.10 and Borderline personality disorder F60.3 [facility] [address], [place] [address] 1356 Mar, Social anxiety disorder F40.10 ; Bipolar disorder F31.9 and Relationship problem with family member Z63.8 [facility] [address], [place] [address] 8880 Mar, [address] [id number] [place] [id number] Mar, Dental examination Z01.20 [facility] [address], [place] [address] 8102 Mar, [facility] [address] [place] [address] 57096- 4683 Feb, Bipolar disorder F31.9 ; Posttraumatic stress disorder F43.10 and Borderline personality disorder F60.3 [facility] [address] [id number] Feb, [facility] [address] [place] [address] 60085- 1769 14 Jan, 2017 Bipolar disorder F31.9 ; Posttraumatic stress disorder F43.10 and Borderline personality disorder F60.[address] [place] [address] [id number] [id number] Jan, [facility] [address] [place] [address] 32195- 7714 Jan, [facility] [address] [id number] Jan, [facility] [address] [place] [address] 44375- 2851 Dec, Bipolar disorder F31.9 ; Posttraumatic stress disorder F43.10 and Borderline personality disorder F60.3 [facility] [address] [place] [address] 31726- 8703 Dec, [facility] [address] [place] [address] 77762- 9013 Dec, [facility] [address] [id number] [id number] Dec, [facility] [address] [place] [address] 45549- 5899 Nov, Bipolar 1 disorder F31.9 ; Posttraumatic stress disorder F43.10 and Social anxiety disorder F40.10 [facility] [address] [place] [address] 65188- 4497 Nov, Bipolar disorder F31.9 ; Posttraumatic stress disorder F43.10 and Borderline personality disorder F60.3 [place] [address] [place] [address] 72346- 3189 Nov, Morbid obesity, unspecified obesity type E66.01 [place] [address] [place] [address] 11158- 7778 Nov, [address] AV[facility]ly [id number] [place] [id number] Oct, Encounter for dental examination and cleaning without abnormal findings Z01.20 [place] [address] [id number] [place] [address] 80805- 3008 Oct, Morbid obesity, unspecified obesity type E66.01 and Acute seasonal allergic rhinitis due to pollen J30.1 [place] [address] [address] [id number] [place] [address] 94418- 8167 Oct, Bipolar disorder F31.9 ; Posttraumatic stress disorder F43.10 and Borderline personality disorder F60.3 [place] [address] [place] [address] 99756- 7974 September, Morbid obesity, unspecified obesity type E66.01 and Psoriasis L40.9 [place] [address] [place] [address] 37669- 6019 September, Bipolar disorder F31.9 ; Posttraumatic stress disorder F43.10 and Borderline personality disorder F60.3 [place] [address] [place] [address] 32877- 4239 September, Chronic pain G89.29 [place] [address] [id number] [place] [address] 54686- 3190 Aug, Other acute nonsuppurative otitis media of right ear H65.191 and Morbid obesity, unspecified obesity type E66.01 [place] [address] [place] [address] 70836- 2914 Aug, Bipolar 1 disorder F31.9 ; Posttraumatic stress disorder F43.10 and Social anxiety disorder F40.10 [facility] [id number] [place] [address] 02742- 0831 Aug, Bipolar disorder F31.9 ; Posttraumatic stress disorder F43.10 and Borderline personality disorder F60.3 [facility] [id number] [place] [address] 56256- 4119 Jul, Morbid obesity due to excess calories E66.01 ; Gastro- esophageal reflux disease without esophagitis K21.9 and Chronic pain G89.29 [facility] [id number] [place] [address] 10286- 8711 Jul, Morbid obesity due to excess calories E66.01 [facility] [address] [id number] [place] [address] 09677- 9062 Jul, [place] [address] [address] [id number] [place] [address] 12131- 4748 Jul, [facility] [id number] [place] [address] 05027- 1956 Jul, Morbid obesity due to excess calories E66.01 [facility] [id number] [place] [address] 45509- 6255 Jul, Bipolar disorder F31.9 ; Posttraumatic stress disorder F43.10 and Borderline personality disorder F60.3 [facility] [id number] [place] [address] 54010- 8108 Jun, [facility] [id number] [place] [address] 65886- 5301 Jun, Morbid obesity due to excess calories E66.01 [facility] [id number] [place] [address] 97239- 6811 Jun, [facility] [id number] [place] [address] 28542- 1128 Jun, Morbid obesity, unspecified obesity type E66.01 [facility] [address] [place] [address]- 8363 Jun, Bipolar disorder F31.9 ; Posttraumatic stress disorder F43.10 and Borderline personality disorder F60.3 [facility] [address] [place] [address] 97738- 1671 Jun, [facility] [id number] [place] [address] 52593- 2451 Jun, [facility] [id number] [place] [address] 78754- 3324 Jun, Acquired hypothyroidism E03.9 and Morbid obesity due to excess calories E66.01 [facility] [address] [id number] [place] [address] 09421- 0217 May, Bipolar disorder F31.9 ; Posttraumatic stress disorder F43.10 and Borderline personality disorder F60.3 [place] [address] [id number] [place] [address] 14559- 1654 Apr, Bipolar 1 disorder F31.9 ; Posttraumatic stress disorder F43.10 and Social anxiety disorder F40.[address] [place] [address] [id number] [place] [id number] Apr, Encounter for dental examination Z01.20 [facility] [address] [place] [address] 08058- 8909 Apr, [facility] [id number] [place] [address] 81301- 7176 Apr, Acquired hypothyroidism E03.9 [facility] [id number] [place] [address] 96425- 9051 Apr, Acquired hypothyroidism E03.9 [facility] [id number] [place] [address] 83837- 2890 Apr, Bipolar disorder F31.9 ; Posttraumatic stress disorder F43.10 and Borderline personality disorder F60.3 [facility] [id number] [place] [address] 04387- 1134 Apr, Acquired hypothyroidism E03.9 [facility] [address] [id number] [place] [id number] Mar, Encounter for dental examination and cleaning without abnormal findings Z01.20 [facility] [address], [place] [address]- 1080 08 Mar, 2016 [facility] [id number] [place] [address] 18830- 9017 Mar, Bipolar disorder F31.9 ; Posttraumatic stress disorder F43.10 and Borderline personality disorder F60.3 [place] [address] [id number] [place] [address] 46831- 8824 Mar, Essential (primary) hypertension I10 [place] [address] [id number] [place] [address] 76263- 7434 Feb, [place] [address] [id number] [place] [address] 85332- 1921 Feb, [facility] [id number] [place] [address] 90733- 9168 Feb, Pelvic pain R10.2 ; Lipid screening Z13.220 ; Fatigue, unspecified type R53.83 and Weight gain R63.5 [place] [address], [place] [address]- 2690 Feb, Bipolar disorder F31.9 ; Posttraumatic stress disorder F43.10 and Borderline personality disorder F60.3 [place] [address] [place] [address] 07329- 5840 Feb, [facility] [address] [place] [address] 27501- 1688 Feb, [place] [address] [address] [id number] [place] [address] 28587- 1416 30 Jan, 2016 Obstructive sleep apnea syndrome G47.33 [facility] [address], [place] [address]- 9270 Jan, [facility] [address] [id number] [place] [id number] Jan, Dental examination Z01.20 [facility] [address] [place] [address] 44662- 9479 Jan, Bipolar 1 disorder F31.9 ; Posttraumatic stress disorder F43.10 and Social anxiety disorder F40.10 [facility] [address], [place] [address]- 4531 Jan, Bipolar disorder F31.9 ; Posttraumatic stress disorder F43.10 and Borderline personality disorder F60.3 [facility] [address] [place] [address] 23818- 2782 Jan, Sciatica of left side M54.32 [facility] [address], [place] [address]- 1922 Jan, [facility] [address] [place] [address] 71630- 3456 Dec, [facility] [address], [place] [address]- 7471 Dec, [facility] [address] [place] [address] 44464- 4487 Dec, Bipolar disorder F31.9 ; Posttraumatic stress disorder F43.10 and Borderline personality disorder F60.3 [facility] [address], [place] [address]- 8575 Nov, [facility] [address], [place] [address]- 3316 Nov, Insomnia, unspecified type G47.00 [facility] [address] [place] [address] 23492- 2288 Nov, Bipolar disorder F31.9 ; Posttraumatic stress disorder F43.10 and Borderline personality disorder F60.3 [facility] [address], [place] [address]- 0528 Nov, [facility] [id number], [place] [address]- 6697 Nov, [facility] [id number] [place] [address] 50869- 3630 Oct, Bipolar disorder F31.9 ; Posttraumatic stress disorder F43.10 and Borderline personality disorder F60.3 [facility] [address] [place] [address] 17069- 3248 Oct, [facility] [id number] [place] [address] 79493- 0093 Oct, Essential (primary) hypertension I10 [facility] [id number] [place] [address] 17381- 1675 September, Bipolar 1 disorder F31.9 ; Posttraumatic stress disorder F43.10 and Social anxiety disorder F40.10 [facility] [id number] [place] [address] 52031- 7616 September, Bipolar disorder F31.9 ; Posttraumatic stress disorder F43.10 and Borderline personality disorder F60.[address] [id number] [place] [id number] September, Encounter for dental examination and cleaning without abnormal findings Z01.20 [facility] [address] [place] [address] 54556- 3606 September, [facility] [address] [place] [address] 84252- 0775 September, [facility] [address] [place] [address] 91963- 3776 Aug, [facility] [address] [place] [address] 94800- 6376 Aug, Bipolar disorder F31.9 ; Posttraumatic stress disorder F43.10 and Borderline personality disorder F60.3 [facility] [address] [place] [address] 96408- 7769 Aug, [facility] [id number] [place] [address] 25425- 3974 Aug, [facility] [id number], [place] [address]- 4454 Aug, [facility] [id number] [id number] Jul, Acute nasopharyngitis [common cold] J00 and Other viral agents as the cause of diseases classified elsewhere B97.89 [facility] [id number] [place] [address] 44485- 0702 24 Jul, 2015 Chronic pain G89.29 and Allergic rhinitis J30.9 [facility] [address] [place] [address] 43333- 2958 24 Jul, 2015 Bipolar 1 disorder F31.9 ; Posttraumatic stress disorder F43.10 and Social anxiety disorder F40.10 [place] [id number] [place] [address] 50121- 2136 16 Jul, 2015 Bipolar 1 disorder F31.9 [facility] [address] [place] [address] 31947- 1637 16 Jul, 2015 Bipolar disorder F31.9 ; Posttraumatic stress disorder F43.10 and Borderline personality disorder F60.3 [place] [address] [place] [address] 70580- 1641 14 Jul, 2015 [place] [address] [place] [address] 98753- 7318 14 Jul, 2015 [place] [address] [place] [address] 48203- 9115 11 Jul, 2015 [facility] [address] [place] [address] 91495- 8777 10 Jul, 2015 Anxiety F41.9 [place] [address] [place] [address] 20514- 4875 10 Jul, 2015 Chronic pain G89.29 and Encounter for therapeutic drug level monitoring Z51.81 [facility] [id number] [place] [address] 28180- 1642 Jul, Chronic pain G89.29 and Encounter for therapeutic drug level monitoring Z51.81 [facility] [id number] [place] [address] 76301- 6051 Jul, [facility] [id number] [place] [address] 19339- 9893 Jun, [facility] [id number] [place] [address] 88999- 7674 Jun, [facility] [id number] [place] [address] 69144- 3860 Jun, [facility] [id number] [place] [address] 35560- 6114 Jun, [facility] [id number] [place] [address] 38352- 1921 Jun, High risk medication use V58.69 [facility] [id number] [place] [address] 70363- 3689 Jun, [facility] [address] [id number] [place] [address] 82671- 2070 Jun, Bipolar 1 disorder F31.9 ; Overdose T50.901A and Chronic pain G89.29 [facility] [id number] [place] [address] 77869- 4519 Jun, Bipolar disorder F31.9 ; Posttraumatic stress disorder F43.10 and Borderline personality disorder F60.3 [facility] [id number] [place] [address] 54571- 0860 Jun, [facility] [id number] [place] [address] 15923- 2537 Jun, [facility] [id number] [place] [address] 66074- 7439 Jun, Keloid L91.0 [facility] [id number] [place] [address] 99313- 7233 Jun, [facility] [address], [place] [address] 7564 May, [facility] [id number] [place] [address] 22591- 6932 May, [facility] [address], [place] [address] 0784 May, Pelvic pain R10.2 [facility] [id number] [place] [address] 87991- 1849 May, [facility] [id number] [place] [address] 01256- 4443 May, Pain of left thumb M79.645 ; Incisional pain R20.8 ; Pelvic pain R10.2 and Essential hypertension I10 [facility] [address], [place] [address] 8639 May, [facility] [address], [place] [address] 7940 May, [address] [id number] [address] May, Dental examination Z01.20 and Necrosis of pulp K04.1 [facility] [address], [place] [address]- 1710 Apr, [facility] [address], [place] [address]- 9387 Apr, [facility] [address], [place] [address]- 6294 Apr, [facility] [id number] [place] [address] 68486- 5879 Apr, [facility] [address], [place] [address]- 9887 Apr, [facility] [address], [place] [address]- 9866 Apr, [facility] [address] [id number], [place] [address] 5[address] Apr, [facility] [address] [facility] [id number], [place] [address] 9753 Apr, [facility] [address] [facility] [id number], [place] [address]- 7541 Mar, [facility] [address] [facility] [id number] [place] [address], [place] [address]- 1619 Mar, [facility] [address] [id number] [place] [address]- 5939 Mar, [facility] [address] [facility] [id number] [place] [address], [place] [address]- 6549 Mar, [facility] [address] [facility] [id number] [place] [address]- 8454 Feb, [facility] [address] [facility] [id number] [place] [address] 44670- 6764 Feb, [facility] [address] [facility] [id number] 4090 Feb, [facility] [address] [id number], [place] [address]- 0560 Feb, [facility] [address] [facility] [id number], [place] [address]- 2955 Feb, [facility] [address] [facility] [id number], [place] [address]- 5081 Feb, [facility] [address] [facility] [id number], [place] [address]- 2660 Feb, [facility] [id number], [place] [address]- 7299 Feb, Dermatofibroma of left lower leg D23.72 [facility] [address] [facility] [id number], [place] [address]- 3019 Feb, Hematochezia 578.1 ; Low back pain M54.5 ; High risk medication use V58.69 ; Cervicalgia M54.2 and Anxiety F41.9 [facility] [address] [facility] [id number] [place] [id number] Feb, Dental examination Z01.20 ; Pulpitis K04.0 and Dental caries, unspecified K02.9 [facility] [address] [facility] [address] [id number] [place] [id number] Feb, Dental examination Z01.20 [facility] [id number] [place] [address] 13013- 2658 30 Jan, 2015 [facility] [id number] [place] [address] 55102- 5422 Jan, [facility] [id number] [place] [address] 94842- 3784 Jan, [facility] [id number] [place] [address] 69955- 4903 Jan, [facility] [id number] [place] [address] 61658- 5432 Dec, [facility] [id number] [place] [address] 85971- 9469 Dec, [facility] [id number] [place] [address] 81283- 3022 Dec, [facility] [id number] [place] [address] 16026- 1139 Dec, [facility] [address] [id number], [place] [address]- 0219 Dec, [facility] [id number] [place] [address] 84250- 8098 Dec, [facility] [address] [id number], [place] [address]- 2444 Dec, [facility] [id number] [place] [address] 81370- 1341 Dec, [facility] [address] [id number] [id number] Nov, Encounter for removal of sutures V58.32 [facility] [address], [place] [address]- 1589 Nov, [facility] [address] [id number], [place] [address]- 1170 Nov, [facility] [address], [place] [address]- 1237 Nov, [facility] [address], [place] [address]- 1671 Nov, [facility] [address], [place] [address]- 2919 Nov, [facility] [address], [place] [address]- 6667 Nov, [facility] [address], [place] [address]- 9246 Nov, [facility] [address], [place] [address]- 1227 Nov, Dermatofibroma 216.9 [facility] [address], [place] [address]- 3666 Nov, [facility] [address] [id number], [place] [address]- 9670 Nov, [facility] [address] [id number], [place] [address]- 1625 Oct, [facility] [address] [id number], [place] [address]- 9312 Oct, Hematochezia 578.1 ; Abscess 682.9 ; GERD (gastroesophageal reflux disease) 530.81 ; Visual disturbance of one eye 368.9 and High risk medication use V58.69 [facility] [address], [place] [address]- 6839 Oct, [facility] [address] [id number] [place] [address]- 5729 Oct, [facility] [address] [id number] [place] 7579 Oct, [facility] [address] [id number] [place] [address]- 9622 September, [facility] [address] [id number] [place] [address]- 3418 September, [facility] [address] [id number] [place] 8973 September, [facility] [address] [id number] [place] [address]- 1941 September, [facility] [address] [id number] [place] [address]- 6463 September, [facility] [address] [facility] [id number] [place] [address]- 5449 September, Colon cancer screening V76.51 [facility] [address] [id number] [place] 5218 September, [facility] [address] [id number] [place] [address]- 9742 Aug, [facility] [address] [id number] [place] [address]- 7696 Aug, [facility] [place] [facility] [address] [id number] [place] [address]- 4298 Jul, [facility] [place] [facility] [address] [id number] [place] 4830 Jul, [facility] [place] [facility] [address] [id number] [place] [address]- 4809 Jul, [facility] [place] [facility] [address] [id number] [place] [address]- 6271 Jul, [facility] [place] [facility] [address] [id number] [place] [address]- 3377 Jun, [facility] [place] [facility] [address] [id number] [place] [address]- 3786 Jun, [facility] [place] [facility] [address] [id number] [place] [address]- 3636 Jun, [facility] [place] [facility] [address] [id number] [place] [address]- 4196 Jun, [facility] [place] [facility] [address] [id number] [place] [address]- 4598 Jun, [facility] [place] [facility] [address] [id number] [place] [address]- 0165 Jun, [facility] [place] [facility] [address] [id number] [place] [address]- 0572 May, [facility] [place] [facility] [address] [id number] [place] [address]- 1671 May, [facility] [place] [facility] [address] [id number] [place] [address]- 9491 May, [facility] [place] [facility] [address] [id number] [place] [address]- 0911 May, [facility] [place] [facility] [address] [facility] [id number] [place] [address]- 8035 May, [facility] [place] [facility] [address] [id number] [place] [address]- 8361 May, [facility] [place] [facility] [address] [id number] [place] [address]- 6744 May, [facility] [place] [facility] [address] [id number] [place] [address]- 8251 May, [facility] [place] [facility] [address] [id number] [place] [address]- 8536 Apr, [facility] [place] [facility] [address] [id number] [place] [address]- 4998 Apr, [facility] [place] [facility] [address] [id number] [place] [address]- 8901 Apr, [facility] [place] [facility] [address] [id number] [place] [address]- 6180 Apr, [facility] [place] [facility] [address] [id number] [place] [address]- 8752 Apr, [facility] [place] [facility] [address] [id number] [place] [address]- 6821 Apr, [facility] [place] [facility] [address] [id number] [place] [address]- 1646 Apr, [facility] [place] [facility] [address] [id number] [place] [address]- 4345 Apr, [facility] [place] [facility] [address] [id number] [place] [address]- 4008 Mar, [facility] [place] [facility] [address] [id number] [place] [address]- 5659 Mar, [facility] [place] [facility] [address] [id number] [place] [address]- 8016 Mar, [facility] [place] [facility] [address] [id number] [place] [address]- 6011 Mar, [facility] [place] [facility] [address] [id number], [place] [address]- 8055 Mar, [facility] [place] [facility] [address] [id number], [place] [address]- 5440 Mar, [facility] [place] [facility] [address] [id number] [place] [address]- 2165 Mar, [facility] [place] [facility] [address] [id number], [place] [address]- 2889 Mar, [facility] [place] [facility] [address] [id number], [place] [address]- 7550 Mar, [facility] [place] [facility] [address] [id number] [place] [address]- 8601 Mar, [facility] [place] [facility] [address] [id number] [place] [address]- 3642 Feb, [facility] [place] [facility] [address] [id number] [place] [address]- 8693 Feb, [facility] [place] [facility] [address] [id number] [place] [address]- 9128 Jan, [facility] [place] [facility] [address] [id number] [place] [address]- 8868 Jan, [facility] [place] [facility] [address] [id number] [place] [address]- 5517 Jan, [facility] [place] [facility] [address] [id number] [place] [address]- 3655 Jan, [facility] [place] [facility] [address] [id number] [place] [address]- 0584 Dec, [facility] [place] [facility] [address] [id number] [place] [address]- 2943 Dec, [facility] [place] [facility] [address] [id number] [place] [address]- 5596 Dec, [facility] [place] [facility] [address] [id number] [place] [address]- 2241 Dec, [facility] [place] [facility] [address] [id number] [place] [address]- 2052 Dec, [facility] [place] [facility] [address] [id number] [place] [address]- 4380 Dec, [facility] [place] [facility] [address] [id number] [place] [address]- 7446 Nov, [facility] [place] [facility] [address] [id number] [place] [address]- 8353 Nov, [facility] [place] [facility] [address] [id number] [place] [address]- 2063 Oct, [facility] [place] [facility] [address] [id number] [place] [address]- 4987 Oct, [facility] [place] [facility] [address] [id number] [place] [address]- 4891 Oct, [facility] [place] [facility] [address] [id number] [place] [address]- 7182 Oct, [facility] [place] [facility] [address] [id number] [place] [address]- 0044 September, [facility] [place] [facility] [address] [id number] [place] [address]- 9085 September, [facility] [place] [facility] [address] [id number] [place] [address]- 3890 September, [facility] [place] [facility] [address] [id number] [place] [address]- 8127 September, [facility] [place] [facility] [address] [id number] [place] [address]- 5475 September, [facility] [place] [facility] [address] [id number] [place] [address]- 2169 September, [facility] [place] [facility] [address] [id number] [place] [address]- 3853 September, [facility] [place] [facility] [address] [id number] [place] [address]- 8129 September, [facility] [place] [facility] [address] [id number] [place] [address]- 1083 Aug, [facility] [place] [facility] [address] [id number] [place] [address]- 5536 Aug, [facility] [place] [facility] [address] [id number] [place] [address]- 8506 Aug, [facility] [place] [facility] [address] [id number] [place] [address]- 3753 Aug, [facility] [place] [facility] [address] [id number], [place] [address]- 6439 Aug, [facility] [place] [facility] [address] [id number] [place] [address]- 0639 Aug, [facility] [place] [facility] [address] [id number] [place] [address]- 3838 Jul, [facility] [place] [facility] [address] [facility] [id number] [place] [address]- 0930 Jul, [facility] [place] [facility] [address] [id number] [place] [address]- 7640 Jul, [facility] [place] [facility] [address] [id number] [place] [address]- 1257 Jul, [facility] [place] [facility] [address] [id number] [place] [address]- 4386 Jun, [facility] [place] [facility] [address] [facility] [id number] [place] [address]- 9978 Jun, [facility] [place] [facility] [address] [id number] [place] [address]- 9024 Jun, [facility] [place] [facility] [address] [facility] [id number] [place] [address]- 6466 Jun, [facility] [place] [facility] [address] [facility] [id number] [place] [address]- 2365 Jun, [facility] [place] [facility] [address] [facility] [id number] [place] [address]- 6167 Jun, [facility] [place] [facility] [address] [id number], [place] [address]- 1391 May, [facility] [place] [facility] [address] [id number] [place] [address]- 5229 May, [facility] [place] [facility] [address] [id number], [place] [address]- 3537 May, [facility] [place] [facility] [address] [id number], [place] [address]- 1850 May, [facility] [place] [facility] [address] [id number] [place] [address]- 6876 May, [facility] [address] [id number] [place] [address]- 3046 May, [facility] [address] [id number] [place] [address]- 2546 May, [facility] [address] [id number] [place] [address]- 2546 May, [facility] [address] [id number] [place] [address]- 9843 Apr, [facility] [address] [facility] [id number] Apr, [facility] [address] [id number] [place] [address]- 5286 Apr, [facility] [address] [id number] [place] [address]- 8806 Apr, [facility] [address] [id number] [place] [address]- 5779 Apr, [facility] [address] [id number] [place] [address]- 7665 Apr, [facility] [address] [id number] [place] [address]- 8976 05 Apr, 2013 [facility] [address] [id number] [place] [address]- 2546 05 Apr, 2013 [facility] [address] [id number] [place] [address]- 2546 04 Apr, 2013 [facility] [address] [id number] [place] [address]- 2546 Mar, [facility] [address] [id number] [place] [address]- 2546 Mar, [facility] [address] [id number] [place] [address]- 5346 Mar, [facility] [place] [facility] [address] [id number] [place] [address]- 8665 Mar, [facility] [place] [facility] [address] [id number] [place] [address]- 2974 Mar, [facility] [place] [facility] [address] [id number] [place]71 Feb, [facility] [place] [facility] [address] [id number] [place] [address]- 6171 Feb, [facility] [place] [facility] [address] [id number] [place] [address]- 9067 Feb, [facility] [place] [facility] [address] [id number] [place] [address]- 4015 Feb, [facility] [place] [facility] [address] [id number] [place] [address]- 6782 Jan, [facility] [place] [facility] [address] [id number] [place] [address]- 5070 Jan, [facility] [place] [facility] [address] [id number] [place] [address]- 9243 Jan, [facility] [place] [facility] [address] [id number], [place] [address]- 8136 Dec, [facility] [place] [facility] [address] [id number], [place] [address] Dec, [facility] [place] [facility] [address] [id number], [place] [address] Dec, [facility] [address] [id number] [place] [id number] Nov, [facility] [address] [id number] [place] [id number] Oct, [facility] [place] [facility] [address] [id number] [place] [address] Oct, [facility] [place] [facility] [address] [id number], [place] [address] September, [facility] [address] [id number] [place] [address] September, [facility] [place] [facility] [address] [id number] [place] [address] September, [facility] [address] [id number] [place] [address] September, [facility] [place] [facility] [address] [id number] [place] [address] September, [facility] [address] [id number] [place] [address] Jul, [facility] [place] [facility] [address] [id number] [place] [address] Jul, [facility] [address] [id number] [place] [address] Jul, [facility] [place] [facility] [address] [id number] [place] [address] Jul, [facility] [place] [facility] [address] [id number] [place] [address] Jun, [facility] [place] [facility] [address] [id number] [place] [address] Jun, [facility] [place] [facility] [address] [id number] [place] [address] Jun, [facility] [place] [facility] [address] [id number], [place] [address] Jun, [facility] [place] [facility] [address] [id number] [place] [address] May, [facility] [place] [facility] [address] [id number] [place] [address] Mar, [facility] [place] [facility] [address] [id number] [place] [address] Mar, [facility] [place] [facility] [address] [id number], [place] [address] Mar, [facility] [place] [facility] [address] [id number], [place] [address] Mar, [facility] [place] [facility] [address] [id number], [place] [address] Mar, [facility] [place] [facility] [address] [id number], [place] [address] Mar, [facility] [place] [facility] [address] [id number] [place] [address] Mar, [facility] [place] [facility] [address] [facility] [id number] [place] [address] Mar, [facility] [place] [facility] [address] [facility] [id number] [place] [address] Feb, [facility] [place] [facility] [address] [facility] [id number], [place] [address] Feb, [facility] [place] [facility] [address] [facility] [id number], [place] [address] Feb, [facility] [place] [facility] [address] [facility] [id number], [place] [address] Feb, [facility] [place] [facility] [address] [facility] [id number], [place] [address] Feb, [facility] [place] [facility] [address] [facility] [id number], [place] [address] Feb, [facility] [place] [facility] [address] [facility] [id number], [place] [address] Feb, [facility] [address] [id number][place] [id number] Jan, [facility] [address] [id number][place] [id number] Dec, [facility] [address] [id number][place] [id number] Dec, [facility] [place] [facility] [address] [id number] [place] [address] 30 Nov, 2011 [facility] [address] [id number] [place] [address] Nov, [facility] [place] [facility] [address] [id number] [place] [address] Oct, [facility] [address] [id number] [place] [address] 15 Jul, 2011 [facility] [place] [facility] [address] [id number] [place] [address] Jul, [facility] [address] [id number] [place] [address] May, [facility] [place] [facility] [address] [id number] [place] [address] May, [facility] [address] [id number] [place] [address] Nov, [facility] [place] [facility] [address] [id number] [place] [address] 30 Mar, 2010 [facility] [place] [facility] [address] [id number] [place] [address] Dec, [facility] [place] [facility] [address] [id number] [place] [address] Nov, [facility] [place] [facility] [address] [id number] [place] [address] Aug, [facility] [facility] [facility] [address] [id number] [place] [address] Apr, [facility] [place] [facility] [address] [id number] [place] [address] Apr, [facility] [place] [facility] [address] [id number] [place] [address] Mar, 2009 [facility] [place] [facility] [address] [id number] [place] [address] Feb, [facility] [address] [facility] [id number] [place] [id number] September, [facility] [address] [facility] [id number] [address] Jun, [facility] [address] [facility] [id number] [place] [address] Mar, IMMUNIZATIONS No Known Immunizations SOCIAL HISTORY Never Assessed REASON FOR VISIT Lab (walk-in) PLAN OF CARE VITAL SIGNS MEDICATIONS Unknown Medications RESULTS No Results PROCEDURES Procedure Date Ordered Result Body Site LAB NOT BILLED BY [facility] September 29, 2017 INSTRUCTIONS MEDICATIONS ADMINISTERED No [...] hernia Hospitalization History Went by ambulance to [facility] as [facility] 05/2015 Hospitalization History [facility] for [facility] psych hold 05/2015
--- OUTSIDE RECORDS SUMMARY | 2018-03-15 11:00 | XMS REPORT ---
Author Author SAMI SUAREZ [facility] Address [facility][note 3][address] [place] [address] Care Team Providers Care Drum Attendant Name Role Phone SAMI SUAREZ Unavailable PROBLEMS Type Condition ICD9-CM Code HQU41-XD Code Onset Dates Condition Status SNOMED Code Problem Psoriasis L40.9 Active 3632507 Problem Relationship problem with family member Z63.8 Active 177325051 Problem Essential hypertension I10 Active 79784684 Problem Anxiety F41.9 Active 90692264 Problem Visual disturbance H53.9 Active 68329224 Problem Rheumatoid arthritis involving multiple sites with positive rheumatoid factor M05.79 Active 736302564 Problem Bilateral low back pain with sciatica, sciatica laterality unspecified M54.40 Active 137432670 Problem Hypokalemia E87.6 Active 22688662 Problem Lumbago with sciatica, left side M54.42 Active 842206891 Problem Other chronic pain G89.29 Active 53799813 Problem 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 Active 734378852 Problem Blindness of right eye H54.40 Active 573043658 Problem Posttraumatic stress disorder F43.10 Active 32680417 Problem Overdose T50.901A Active 15101820 Problem Bipolar disorder F31.9 Active 31705941 Problem Borderline personality disorder F60.3 Active 76631802 Problem Obstructive sleep apnea G47.33 Active 56130508 Problem Acquired hypothyroidism E03.9 Active 348073305 Problem Pelvic pain R10.2 Active 54656861 Problem Chronic pain G89.29 Active 10448041 Problem Gastro-esophageal reflux disease without esophagitis K21.9 Active 853867328 Problem Anemia due to other cause, not classified D64.89 Active 769699628 Problem Social anxiety disorder F40.10 Active 21908088 Problem Morbid obesity, unspecified obesity type E66.01 Active 049762480 ALLERGIES No Information ENCOUNTERS Encounter Location Date Diagnosis [facility] [address] [facility] [id number], [place] [address] Feb, [facility] [address], [place] [address] Dec, [facility] [address] [id number] [place] [id number] Dec, [facility] [address] [place] [address] 36961- 7938 Nov, Bipolar disorder F31.9 ; Posttraumatic stress disorder F43.10 and Borderline personality disorder F60.3 [facility] [address] [place] [address] 61976- 3189 Nov, Rheumatoid arthritis involving multiple sites with positive rheumatoid factor M05.79 ; Dysuria R30.0 and Blindness of right eye H54.40 [place] [address] [place] [address] 29013- 8598 Nov, Bipolar disorder F31.9 ; Posttraumatic stress disorder F43.10 ; Social anxiety disorder F40.10 and Relationship problem with family member Z63.8 [facility] [address] [place] [address] 86654- 1266 Nov, [place] [address] [place] [id number] [place] [address] 25238- 8371 Nov, [facility] [address] [place] [address] 19456- 8950 Nov, 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 ; Adverse effect of antineoplastic and immunosuppressive drugs, initial encounter T45.1X5A ; Anemia , unspecified D64.9 and BMI 40.0-44.9, adult Z68.41 [facility] [address] [place] [id number] [place] [address] 18813- 0925 Nov, Anemia due to other cause, not classified D64.89 [facility] [address] [place] [address] 64176- 1654 Oct, Adverse effect of drug, initial encounter T50.905A and Acute anemia D64.9 [facility] [address] [facility] [id number], [place] [address] 27 Oct, 2017 Anemia due to other cause, not classified D64.89 ; Dysuria R30.0 and Urinary tract infection without hematuria, site unspecified N39.0 [facility] [address] [facility] [id number], [place] [address] 58[address] Oct, [facility] [address] [place] [address] 72118- 5487 Oct, [facility] [address] [place] [id number] [place] [address] 93103- 5613 Oct, 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 [address] [id number] Oct, [facility] [address] [place] [address] 72811- 8995 Oct, [facility] [address] [place] [address] 91774- 6366 Oct, [facility] [address] [place] [id number] [place] [address] 94834- 2029 Oct, Bipolar disorder F31.9 ; Posttraumatic stress disorder F43.10 and Borderline personality disorder F60.3 [facility] [address] [place] [address] [id number], [place] [address] 6199 Oct, Rheumatoid arthritis involving multiple sites with positive rheumatoid factor M05.79 ; 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 and Anxiety F41.9 [facility] [address] [facility] [id number], [place] [address] 1699 Oct, [facility] [address] [place] [id number] [place] [address] 20711- 2923 September, 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 [facility] [address] [place] [address] [id number], [place] [address] 2368 September, Bipolar disorder F31.9 ; Posttraumatic stress disorder F43.10 and Borderline personality disorder F60.3 [facility] [address] [place] [address] 13385- 7534 Aug, BMI 40.0-44.9, adult Z68.41 ; Bipolar disorder F31.9 ; Posttraumatic stress disorder F43.10 and Social anxiety disorder F40.10 [facility] [address] [place] [address] [id number] [place] [address] 91067- 1427 Aug, Bipolar disorder F31.9 ; Posttraumatic stress disorder F43.10 and Borderline personality disorder F60.3 [facility] [address] [place] [id number] [place] [address] 32056- 5536 Aug, 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 [facility] [address] [place] [id number] [place] [address] 19389- 3499 Jul, Bipolar disorder F31.9 ; Posttraumatic stress disorder F43.10 and Borderline personality disorder F60.3 [facility] [address] [id number] [place] [address] 18795- 6550 Jul, [facility] [address] [place] [address] [id number] [place] [address] 43403- 7433 Jun, Bipolar disorder F31.9 ; Posttraumatic stress disorder F43.10 and Borderline personality disorder F60.3 [facility] [address] [place] [id number] [place] [address] 79550- 5683 Jun, Blindness of right eye H54.40 and Acquired hypothyroidism E03.9 [facility] [address] [place] [address] [id number] [place] [address] 04842- 1266 Jun, [facility] [address] [place] [address] [id number] [place] [address] 32569- 0075 May, Posttraumatic stress disorder F43.10 ; Social anxiety disorder F40.10 and Bipolar disorder F31.9 [facility] [address] [place] [address] 08975- 8849 May, Bipolar disorder F31.9 ; Posttraumatic stress disorder F43.10 and Borderline personality disorder F60.3 [place] [address], [place] [address] 5932 May, [place] [address] [place] [address] 33248- 3969 May, [facility] [address] [place] [address] 17164- 0892 Apr, Bipolar disorder F31.9 ; Posttraumatic stress disorder F43.10 and Borderline personality disorder F60.3 [address] [id number] Apr, [place] [id number] [place] [address] 69070- 1735 Apr, [place] [address] [place] [id number] [place] [address] 42185- 8732 Mar, Hydradenitis L73.2 [place] [id number] [place] [address] 27956- 9305 15 Mar, 2017 Lumbago with sciatica, left side M54.42 ; Other chronic pain G89.29 ; Morbid obesity, unspecified obesity type E66.01 ; Hydradenitis L73.2 and BMI 40.0-44.9, adult Z68.[address] [place] [address] 05606- 1964 Mar, Bipolar disorder F31.9 ; Posttraumatic stress disorder F43.10 and Borderline personality disorder F60.3 [place] [address] [place] [address] 18796- 0578 Mar, Social anxiety disorder F40.10 ; Bipolar disorder F31.9 and Relationship problem with family member Z63.8 [place] [id number] [place] [address] 78118- 0656 Mar, [facility] [address] [id number] [id number] Mar, Dental examination Z01.20 [place] [id number] [place] [address] 56675- 2546 Mar, [facility] [address] [facility] [id number], [place] [address] 9377 Feb, Bipolar disorder F31.9 ; Posttraumatic stress disorder F43.10 and Borderline personality disorder F60.3 [facility] [address] [facility] [id number][place] [id number] Feb, [facility] [address] [facility] [id number] [place] [address] 39589- 8890 Jan, Bipolar disorder F31.9 ; Posttraumatic stress disorder F43.10 and Borderline personality disorder F60.[address] [id number] [place] [id number] Jan, [facility] [address], [place] [address]- 8669 Jan, [facility] [id number] [id number] Jan, [facility] [address] [place] [address] 99921- 2501 Dec, Bipolar disorder F31.9 ; Posttraumatic stress disorder F43.10 and Borderline personality disorder F60.3 [facility] [address] [facility] [id number], [place] [address]- 5381 Dec, [facility] [address] [facility] [id number], [place] [address]- 7486 Dec, [facility] [address] [facility] [id number][place] [id number] Dec, [facility] [address] [facility] [id number], [place] [address]- 3607 Nov, Bipolar 1 disorder F31.9 ; Posttraumatic stress disorder F43.10 and Social anxiety disorder F40.10 [facility] [address] [facility] [id number], [place] [address]- 8160 Nov, Bipolar disorder F31.9 ; Posttraumatic stress disorder F43.10 and Borderline personality disorder F60.3 [facility] [address], [place] [address]- 4526 Nov, Morbid obesity, unspecified obesity type E66.01 [place] [id number] [place] [address] 11977- 1467 Nov, [facility] [address] [facility] [address] [id number] [place] [id number] Oct, Encounter for dental examination and cleaning without abnormal findings Z01.20 [place] [id number] [place] [address] 89985- 2286 15 Oct, 2016 Morbid obesity, unspecified obesity type E66.01 and Acute seasonal allergic rhinitis due to pollen J30.1 [place] [id number] [place] [address] 28041- 9115 Oct, Bipolar disorder F31.9 ; Posttraumatic stress disorder F43.10 and Borderline personality disorder F60.[address] 41784- 8217 September, Morbid obesity, unspecified obesity type E66.01 and Psoriasis L40.9 [place] [id number] [place] [address] 58409- 9321 September, Bipolar disorder F31.9 ; Posttraumatic stress disorder F43.10 and Borderline personality disorder F60.3 [place] [id number] [place] [address] 16187- 7738 September, Chronic pain G89.29 [place] [id number] [place] [address] 15324- 2478 Aug, Other acute nonsuppurative otitis media of right ear H65.191 and Morbid obesity, unspecified obesity type E66.01 [place] [id number] [place] [address] 47276- 9734 Aug, Bipolar 1 disorder F31.9 ; Posttraumatic stress disorder F43.10 and Social anxiety disorder F40.10 [place] [id number] [place] [address] 27357- 4119 Aug, Bipolar disorder F31.9 ; Posttraumatic stress disorder F43.10 and Borderline personality disorder F60.3 [facility] [address] [place] [address] 85153- 8339 Jul, Morbid obesity due to excess calories E66.01 ; Gastro- esophageal reflux disease without esophagitis K21.9 and Chronic pain G89.29 [facility] [address] [place] [address] 64922- 0515 Jul, Morbid obesity due to excess calories E66.01 [facility] [address] [place] [address] 42319- 8466 Jul, [facility] [address] [place] [id number] [place] [address] 66461- 8803 Jul, [facility] [address] [place] [id number] [place] [address] 79218- 7820 Jul, Morbid obesity due to excess calories E66.01 [facility] [address] [place] [id number] [place] [address] 33648- 2477 Jul, Bipolar disorder F31.9 ; Posttraumatic stress disorder F43.10 and Borderline personality disorder F60.3 [facility] [address] [place] [address] 51765- 8344 Jun, [facility] [address] [place] [address] 61616- 5707 Jun, Morbid obesity due to excess calories E66.01 [facility] [address], [place] [address]- 9937 Jun, [facility] [address] [place] [address] 46913- 7740 Jun, Morbid obesity, unspecified obesity type E66.01 [facility] [address] [place] [address] 76955- 5459 03 Jun, 2016 Bipolar disorder F31.9 ; Posttraumatic stress disorder F43.10 and Borderline personality disorder F60.3 [facility] [address], [place] [address]- 2809 03 Jun, 2016 [facility] [address] [place] [address] 03138- 7886 03 Jun, 2016 [facility] [address] [place] [address] 66309- 4615 02 Jun, 2016 Acquired hypothyroidism E03.9 and Morbid obesity due to excess calories E66.01 [facility] [address] [place] [address] 10800- 5106 May, Bipolar disorder F31.9 ; Posttraumatic stress disorder F43.10 and Borderline personality disorder F60.3 [place] [address] [place] [address] 59780- 0716 13 Apr, 2016 Bipolar 1 disorder F31.9 ; Posttraumatic stress disorder F43.10 and Social anxiety disorder F40.[address] [id number] [place] [id number] Apr, Encounter for dental examination Z01.20 [facility] [address] [place] [address] 87022- 9066 08 Apr, 2016 [facility] [address] [place] [address] 21852- 9638 Apr, Acquired hypothyroidism E03.9 [facility] [address] [place] [address] 33846- 2888 Apr, Acquired hypothyroidism E03.9 [facility] [address] [place] [address] 64962- 2738 07 Apr, 2016 Bipolar disorder F31.9 ; Posttraumatic stress disorder F43.10 and Borderline personality disorder F60.3 [facility] [address] [place] [address] 31958- 1403 Apr, Acquired hypothyroidism E03.9 [facility] [address] [id number] [place] [id number] Mar, Encounter for dental examination and cleaning without abnormal findings Z01.20 [facility] [address] [place] [address] 79183- 6735 08 Mar, 2016 [facility] [address] [place] [id number] [place] [address] 64483- 9525 08 Mar, 2016 Bipolar disorder F31.9 ; Posttraumatic stress disorder F43.10 and Borderline personality disorder F60.3 [facility] [address] 04147- 6308 03 Mar, 2016 Essential (primary) hypertension I10 [facility] [address] [place] [id number] [place] [address] 05451- 7407 Feb, [facility] [address] 20428- 7871 Feb, [facility] [address] 17697- 5147 Feb, Pelvic pain R10.2 ; Lipid screening Z13.220 ; Fatigue, unspecified type R53.83 and Weight gain R63.5 [facility] [address] [place] [id number] [place] [address] 71768- 1247 Feb, Bipolar disorder F31.9 ; Posttraumatic stress disorder F43.10 and Borderline personality disorder F60.3 [facility] [address] [place] [id number] [place] [address] 48461- 5089 Feb, [facility] [address] [place] [id number] [place] [address] 51935- 5482 05 Feb, 2016 [facility] [address] [place] [id number] [place] [address] 16846- 4051 30 Jan, 2016 Obstructive sleep apnea syndrome G47.33 [facility] [address] [place] [id number] [place] [address] 30744- 7136 26 Jan, [address] [id number] [place] [id number] Jan, Dental examination Z01.20 [facility] [address] [place] [id number] [place] [address] 16989- 2127 Jan, Bipolar 1 disorder F31.9 ; Posttraumatic stress disorder F43.10 and Social anxiety disorder F40.10 [facility] [address] [place] [id number] [place] [address] 09084- 5854 Jan, Bipolar disorder F31.9 ; Posttraumatic stress disorder F43.10 and Borderline personality disorder F60.3 [facility] [address] 75317- 7028 Jan, Sciatica of left side M54.32 [facility] [address] [place] [id number] [place] [address] 20325- 1516 Jan, [facility] [address] 07854- 2552 Dec, [facility] [address] 01790- 4369 Dec, [facility] [address] [place] [id number] [place] [address] 59571- 1782 Dec, Bipolar disorder F31.9 ; Posttraumatic stress disorder F43.10 and Borderline personality disorder F60.3 [facility] [address] [place] [id number] [place] [address] 22281- 6053 Nov, [facility] [address] [place] [id number] [place] [address] 46074- 6871 Nov, Insomnia, unspecified type G47.00 [facility] [address] [place] [id number] [place] [address] 58019- 8561 Nov, Bipolar disorder F31.9 ; Posttraumatic stress disorder F43.10 and Borderline personality disorder F60.3 [facility] [address] [place] [id number] [place] [address] 88922- 0543 Nov, [facility] [address] [place] [id number] [place] [address] 43788- 3999 Nov, [facility] [address] 36924- 0158 Oct, Bipolar disorder F31.9 ; Posttraumatic stress disorder F43.10 and Borderline personality disorder F60.3 [facility] [address] [place] [id number] [place] [address] 14197- 3280 Oct, [facility] [id number] [place] [address] 26186- 9250 Oct, Essential (primary) hypertension I10 [facility] [address] [place] [address] [id number] [place] [address] 72041- 6325 September, Bipolar 1 disorder F31.9 ; Posttraumatic stress disorder F43.10 and Social anxiety disorder F40.10 [facility] [address] [place] [address] [id number] [place] [address] 64742- 5353 September, Bipolar disorder F31.9 ; Posttraumatic stress disorder F43.10 and Borderline personality disorder F60.[address] [id number] [place] [id number] September, Encounter for dental examination and cleaning without abnormal findings Z01.20 [facility] [address] [id number] [place] [address] 78417- 4556 September, [facility] [address] 44998- 1089 September, [facility] [id number] [place] [address] 24563- 3860 Aug, [facility] [id number] [place] [address] 53326- 1196 Aug, Bipolar disorder F31.9 ; Posttraumatic stress disorder F43.10 and Borderline personality disorder F60.3 [facility] [id number] [place] [address] 80989- 3358 Aug, [facility] [id number] [place] [address] 25271- 8675 Aug, [facility] [id number] [place] [address] 27226- 9571 Aug, [facility] [address] [id number] [id number] Jul, Acute nasopharyngitis [common cold] J00 and Other viral agents as the cause of diseases classified elsewhere B97.89 [facility] [id number] [address] 24 Jul, 2015 Chronic pain G89.29 and Allergic rhinitis J30.9 [facility] [id number] [place] [address] 86154- 0674 24 Jul, 2015 Bipolar 1 disorder F31.9 ; Posttraumatic stress disorder F43.10 and Social anxiety disorder F40.10 [place] [facility] [id number] [place] [address] 48770- 8007 16 Jul, 2015 Bipolar 1 disorder F31.9 [address] [id number] [place] [address] 68267- 7913 16 Jul, 2015 Bipolar disorder F31.9 ; Posttraumatic stress disorder F43.10 and Borderline personality disorder F60.3 [address] [id number] [place] [address] 57265- 3623 14 Jul, [address] [place] [id number] [place] [address] 24558- 6521 14 Jul, [id number] [place] [address] 32244- 8347 11 Jul, [id number] [place] [address] 83737- 0079 10 Jul, 2015 Anxiety F41.9 [address] [id number] [place] [address] 84841- 3355 10 Jul, 2015 Chronic pain G89.29 and Encounter for therapeutic drug level monitoring Z51.81 [place] [id number] [place] [address] 29483- 5646 09 Jul, 2015 Chronic pain G89.29 and Encounter for therapeutic drug level monitoring Z51.81 [place] [id number] [place] [address] 52576- 4922 Jul, [facility] [facility] [id number], [place] [address] 2008 Jun, [facility] [id number] [place] [address] 91530- 3177 Jun, [facility] [id number] [place] [address] 09300- 0112 Jun, [facility] [id number] [place] [address] 68088- 4831 Jun, [facility] [id number] [place] [address] 91374- 1196 Jun, High risk medication use V58.69 [facility] [id number] [place] [address] 09732- 8578 Jun, [facility] [id number] [place] [address] 97092- 4312 Jun, Bipolar 1 disorder F31.9 ; Overdose T50.901A and Chronic pain G89.29 [facility] [id number] [place] [address] 83612- 8838 Jun, Bipolar disorder F31.9 ; Posttraumatic stress disorder F43.10 and Borderline personality disorder F60.3 [facility] [id number] [place] [address] 87228- 6628 Jun, [facility] [id number] [place] [address] 44313- 6822 Jun, [facility] [id number] [place] [address] 72988- 3955 Jun, Keloid L91.0 [facility] [id number] [place] [address] 53001- 6164 Jun, [facility] [id number] [place] [address] 49161- 1525 May, [facility] [address], [place] [address] May, [facility] [id number] [place] [address] 99271- 5846 May, Pelvic pain R10.2 [facility] [address], [place] [address] 5221 May, [facility] [id number] [place] [address] 89800- 9908 May, Pain of left thumb M79.645 ; Incisional pain R20.8 ; Pelvic pain R10.2 and Essential hypertension I10 [facility] [id number] [place] [address] 95953- 2041 May, [facility] [id number] [place] [address] 04709- 0500 May, [address] [id number] May, Dental examination Z01.20 and Necrosis of pulp K04.1 [facility] [id number] [place] [address] 29945- 5153 Apr, [facility] [address], [place] [address] 2819 Apr, [facility] [address], [place] [address]- 4321 Apr, [facility] [id number] [place] [address] 45333- 0232 Apr, [facility] [address], [place] [address]- 7532 Apr, [facility] [address], [place] [address]- 4209 Apr, [facility] [address], [place] [address]- 6010 Apr, [facility] [address], [place] [address]- 3196 Apr, [facility] [address], [place] [address]- 2476 Mar, [facility] [address], [place] [address]- 3597 Mar, [facility] [id number] [place] [address] 57249- 0905 Mar, [facility] [address] 5947 Mar, [facility] [id number] [place] [address] 51568- 8945 Feb, [facility] [address], [place] [address]- 6801 Feb, [facility] [id number] [place] [address] 11928- 5460 Feb, [facility] [address], [place] [address]- 6412 Feb, [facility] [address], [place] [address]- 4649 Feb, [facility] [address], [place] [address]- 4641 Feb, [facility] [address], [place] [address]- 6529 Feb, [facility] [id number] [address]285 Feb, Dermatofibroma of left lower leg D23.72 [facility] [address] [address] [address] Feb, Hematochezia 578.1 ; Low back pain M54.5 ; High risk medication use V58.69 ; Cervicalgia M54.2 and Anxiety F41.9 [facility] [address] [id number] [id number] Feb, Dental examination Z01.20 ; Pulpitis K04.0 and Dental caries, unspecified K02.9 [facility] [place] [address] [facility] [address] [id number] [id number] Feb, Dental examination Z01.20 [facility] [id number], [place] [address]- 3808 Jan, [facility] [id number], [place] [address]- 0312 Jan, [facility] [id number] [place] [address] 00607- 2096 Jan, [facility] [address], [place] [address]- 3649 Jan, [facility] [id number] [place] [address] 53681- 9504 Dec, [facility] [address], [place] [address]- 7786 Dec, [facility] [address], [place] [address]- 8114 Dec, [facility] [address], [place] [address]- 3697 Dec, [facility] [address], [place] [address]- 7026 Dec, [facility] [id number], [place] [address]- 2197 Dec, [facility] [address], [place] [address]- 6970 Dec, [facility] [address], [place] [address]- 6511 Dec, [facility] [address] [id number] [id number] Nov, Encounter for removal of sutures V58.32 [facility] [address], [place] [address]- 9359 Nov, [facility] [id number] [place] [address] 26608- 5972 Nov, [facility] [address], [place] [address]- 7901 Nov, [facility] [id number] [place] [address] 21772- 1056 Nov, [facility] [id number] [place] [address] 68643- 2346 Nov, [facility] [id number] [place] [address] 21656- 3626 Nov, [facility] [id number] [place] [address] 60214- 0427 Nov, [facility] [id number] [place] [address] 62297- 9066 Nov, Dermatofibroma 216.9 [facility] [id number] [place] [address] 58454- 7181 Nov, [facility] [id number] [place] [address] 81956- 2642 Nov, [facility] [address], [place] [address]- 8416 Oct, [facility] [address], [place] [address]- 7006 Oct, Hematochezia 578.1 ; Abscess 682.9 ; GERD (gastroesophageal reflux disease) 530.81 ; Visual disturbance of one eye 368.9 and High risk medication use V58.69 [facility] [address], [place] [address]- 9244 Oct, [facility] [address], [place] [address]- 4227 Oct, [facility] [address] [id number] [place] [address]- 2906 Oct, [facility] [address] [id number] [place] 1725 September, [facility] [place] [facility] [address] [id number] [place] 4081 September, [facility] [address] [id number] [place] 6040 September, [facility] [place] [facility] [address] [id number] [place] 7654 September, [facility] [address] [id number] [place] [address]- 2502 September, [facility] [address] [facility] [id number] [place] [address]- 8935 September, Colon cancer screening V76.51 [facility] [address] [id number] [place] [address]- 3098 September, [facility] [place] [facility] [address] [facility] [id number] [place] [address]- 8460 Aug, [facility] [address] [facility] [id number], [place] [address]- 5621 Aug, [facility] [place] [facility] [address] [facility] [id number], [place] [address]- 4228 Jul, [facility] [place] [facility] [address] [id number], [place] [address]- 0673 Jul, [facility] [place] [facility] [address] [id number] [place] [address]- 8965 Jul, [facility] [place] [facility] [address] [id number] [place] 0863 Jul, [facility] [place] [facility] [address] [facility] [id number], [place] [address]- 4470 Jun, [facility] [place] [facility] [address] [id number], [place] [address]- 4773 Jun, [facility] [place] [facility] [address] [id number] [place] [address]- 1054 Jun, [facility] [place] [facility] [address] [id number] [place] 7067 Jun, [facility] [place] [facility] [address] [id number] [place] [address]- 2631 Jun, [facility] [place] [facility] [address] [id number] [place] [address]- 7763 Jun, [facility] [place] [facility] [address] [id number] [place] [address]- 6169 May, [facility] [place] [facility] [address] [id number] [place] [address]- 5523 May, [facility] [place] [facility] [address] [id number] [place] [address]- 3889 May, [facility] [place] [facility] [address] [id number] [place] [address]- 6369 May, [facility] [place] [facility] [address] [id number] [place] [address]- 6146 May, [facility] [place] [facility] [address] [facility] [id number] [place] [address]- 6373 May, [facility] [place] [facility] [address] [id number] [place] [address]- 9086 May, [facility] [place] [facility] [address] [id number] [place] [address]- 0055 May, [facility] [place] [facility] [address] [id number] [place] 2681 Apr, [facility] [place] [facility] [address] [id number] [place] [address]- 8749 Apr, [facility] [place] [facility] [address] [id number] [place] [address]- 9952 Apr, [facility] [place] [facility] [address] [id number] [place] [address]- 3324 Apr, [facility] [place] [facility] [address] [id number] [place] [address]- 6142 Apr, [facility] [place] [facility] [address] [id number] [place] [address]- 4552 Apr, [facility] [place] [facility] [address] [id number] [place] [address]- 2404 Apr, [facility] [place] [facility] [address] [id number] [place] [address]- 5003 Apr, [facility] [place] [facility] [address] [id number] [place] [address]- 6829 Mar, [facility] [place] [facility] [address] [id number] [place] [address]- 6137 Mar, [facility] [place] [facility] [address] [id number] [place] [address]- 2886 Mar, [facility] [place] [facility] [address] [id number] [place] [address]- 7739 Mar, [facility] [place] [facility] [address] [id number] [place] [address]- 6445 Mar, [facility] [place] [facility] [address] [id number] [place] [address]- 3339 Mar, [facility] [place] [facility] [address] [id number] [place] [address]- 2924 Mar, [facility] [place] [facility] [address] [id number] [place] [address]- 0920 Mar, [facility] [place] [facility] [address] [id number] [place] [address]- 8595 Mar, [facility] [place] [facility] [address] [id number] [place] [address]- 9680 Mar, [facility] [place] [facility] [address] [id number] [place] [address]- 2629 Feb, [facility] [place] [facility] [address] [id number] [place] [address]- 9707 Feb, [facility] [place] [facility] [address] [id number] [place] [address]- 5920 Jan, [facility] [place] [facility] [address] [id number] [place] [address]- 4923 Jan, [facility] [place] [facility] [address] [id number] [place] [address]- 5979 Jan, [facility] [place] [facility] [address] [id number] [place] [address]- 5779 Jan, [facility] [place] [facility] [address] [id number] [place] [address]- 6569 Dec, [facility] [place] [facility] [address] [id number] [place] [address]- 7448 Dec, [facility] [place] [facility] [address] [id number] [place] [address]- 9229 Dec, [facility] [place] [facility] [address] [id number] [place] [address]- 1838 Dec, [facility] [place] [facility] [address] [id number] [place] [address]- 9798 Dec, [facility] [place] [facility] [address] [id number] [place] [address]- 0436 Dec, [facility] [place] [facility] [address] [id number] [place] [address]- 3451 Nov, [facility] [place] [facility] [address] [id number] [place] [address]- 3777 Nov, [facility] [place] [facility] [address] [id number] [place] [address]- 9080 Oct, [facility] [place] [facility] [address] [id number] [place] [address]- 2517 Oct, [facility] [place] [facility] [address] [id number] [place] [address]- 1578 Oct, [facility] [address] [id number] [place] [address]- 0532 Oct, [facility] [place] [facility] [address] [id number] [place] [address]- 3889 September, [facility] [address] [id number] [place] [address]- 3995 September, [facility] [place] [facility] [address] [id number] [place] [address]- 9000 September, [facility] [address] [id number] [place] [address]- 6212 September, [facility] [address] [id number] [place] [address]- 5797 September, [facility] [address] [id number] [place] [address]- 3488 September, [facility] [address] [id number] [place] [address]- 9691 September, [facility] [place] [facility] [address] [id number] [place] [address]- 8979 September, [facility] [address] [id number] [place] [address]- 4966 Aug, [facility] [place] [facility] [address] [id number] [place] [address]- 8145 Aug, [facility] [place] [facility] [address] [id number] [place] [address]- 7774 Aug, [facility] [place] [facility] [address] [id number] [place] [address]- 1831 Aug, [facility] [place] [facility] [address] [id number] [place] [address]- 1335 Aug, [facility] [place] [facility] [address] [id number] [place] [address]- 9493 Aug, [facility] [place] [facility] [address] [id number] [place] [address]- 2037 Jul, [facility] [place] [facility] [address] [id number] [place] [address]- 3497 Jul, [facility] [place] [facility] [address] [id number] [place] [address]- 2481 Jul, [facility] [place] [facility] [address] [id number] [place] [address]- 7881 Jul, [facility] [place] [facility] [address] [id number] [place] [address]- 4412 Jun, [facility] [place] [facility] [address] [id number] [place] [address]- 3369 Jun, [facility] [place] [facility] [address] [id number] [place] [address]- 6387 Jun, [facility] [place] [facility] [address] [id number] [place] [address]- 1282 Jun, [facility] [place] [facility] [address] [id number] [place] [address]- 8809 Jun, [facility] [place] [facility] [address] [id number] [place] [address]- 1730 Jun, [facility] [place] [facility] [address] [id number] [place] [address]- 0660 May, [facility] [place] [facility] [address] [id number] [place] [address]- 6004 May, [facility] [place] [facility] [address] [id number] [place] [address]- 1627 May, [facility] [place] [facility] [address] [id number] [place] [address]- 0691 May, [facility] [place] [facility] [address] [id number] [place] [address]- 2429 May, [facility] [place] [facility] [address] [id number] [place] [address]- 5575 May, [facility] [address] [id number] [place] [address]- 1524 May, [facility] [address] [id number] [place] [address]- 2018 10 May, 2013 [facility] [address] [id number] [place] [address]- 0030 16 Apr, 2013 [facility] [address] [place] [id number] Apr, 2013 [facility] [address] [id number] [place] [address]- 8010 Apr, [facility] [address] [id number] [place] [address]- 4259 Apr, [facility] [address] [id number] [place] [address]- 7640 Apr, [facility] [address] [id number] [place] [address]- 2843 Apr, [facility] [address] [id number] [place] [address]- 0631 05 Apr, 2013 [facility] [address] [id number] [place] [address]- 7664 05 Apr, 2013 [facility] [address] [id number] [place] [address]- 5993 04 Apr, 2013 [facility] [address] [id number], [place] [address]- 9876 Mar, [facility] [address] [id number] [place] [address]- 4254 Mar, [facility] [address] [id number] [place] [address]- 5993 12 Mar, 2013 [facility] [address] [id number] [place] [address] 11 Mar, 2013 [facility] [place] [facility] [address] [id number] [place] [address] Mar, [facility] [place] [facility] [address] [id number] [place] [address] Feb, [facility] [place] [facility] [address] [id number] [place] [address] Feb, [facility] [place] [facility] [address] [id number] [place] [address] Feb, [facility] [place] [facility] [address] [id number] [place] [address] Feb, [facility] [place] [facility] [address] [id number] [place] [address] Jan, [facility] [place] [facility] [address] [id number] [place] [address] Jan, [facility] [place] [facility] [address] [id number] [place] [address] Jan, [facility] [place] [facility] [address] [id number] [place] [address] Dec, [facility] [place] [facility] [address] [id number] [place] [address] Dec, [facility] [place] [facility] [address] [id number] [place] [address] Dec, [facility] [address] [id number][place] [id number] Nov, [facility] [address] [id number][place] [id number] Oct, [facility] [place] [facility] [address] [id number] [place] [address] Oct, [facility] [place] [facility] [address] [id number] [place] [address] September, [facility] [place] [facility] [address] [id number] [place] [address] September, [facility] [place] [facility] [address] [id number] [place] [address] September, [facility] [address] [id number] [place] [address] September, [facility] [address] [id number] [place] [address] September, [facility] [address] [id number] [place] [address] Jul, [facility] [address] [id number] [place] [address] Jul, [facility] [place] [facility] [address] [id number] [place] [address] Jul, [facility] [address] [id number] [place] [address] Jul, [facility] [address] [id number] [place] [address] Jun, [facility] [address] [id number] [place] [address] Jun, [facility] [address] [id number] [place] [address] Jun, [facility] [address] [id number] [place] [address] Jun, [facility] [address] [id number] [place] [address] May, [facility] [place] [facility] [address] [id number] [place] [address] Mar, [facility] [place] [facility] [address] [id number] [place] [address] Mar, [facility] [place] [facility] [address] [id number] [place] [address] Mar, [facility] [place] [facility] [address] [id number], [place] [address] Mar, [facility] [place] [facility] [address] [facility] [id number], [place] [address] Mar, [facility] [place] [facility] [address] [facility] [id number], [place] [address] Mar, [facility] [place] [facility] [address] [facility] [id number], [place] [address] Mar, [facility] [place] [facility] [address] [facility] [id number], [place] [address] Mar, [facility] [place] [facility] [address] [facility] [id number] [place] [address] Feb, [facility] [place] [facility] [address] [facility] [id number], [place] [address] Feb, [facility] [place] [facility] [address] [facility] [id number], [place] [address] Feb, [facility] [place] [facility] [address] [facility] [id number], [place] [address] Feb, [facility] [place] [facility] [address] [facility] [id number], [place] [address] Feb, [facility] [place] [facility] [address] [facility] [id number], [place] [address] Feb, [facility] [place] [facility] [address] [facility] [id number], [place] [address] Feb, [facility] [address] [facility] [id number][place] [id number] Jan, [facility] [address] [id number] [place] [id number] Dec, [facility] [address] [facility] [id number][place] [id number] Dec, [facility] [place] [facility] [address] [facility] [id number], [place] [address] Nov, [facility] [place] [facility] [address] [facility] [id number], [place] [address] Nov, [facility] [address] [id number] [place] [address]25 Oct, [facility] [place] [facility] [address] [id number] [place] [address] Jul, [facility] [place] [facility] [address] [id number] [place] [address]46 Jul, [facility] [place] [facility] [address] [id number] [place] [address] May, [facility] [address] [id number] [place] [address]361 May, [facility] [place] [facility] [address] [id number] [place] [address] Nov, [facility] [facility] [facility] [address] [id number] [place] [address] Mar, [facility] [place] [facility] [address] [id number], [place] [address] Dec, [facility] [address] [id number], [place] [address] Nov, [facility] [place] [facility] [address] [id number], [place] [address] Aug, [facility] [place] [facility] [address] [id number], [place] [address] Apr, [facility] [place] [facility] [address] [id number], [place] [address] Apr, [facility] [place] [facility] [address] [id number] [place] [address] Mar, [facility] [place] [facility] [address] [id number], [place] [address] Feb, [facility] [place] [facility] [address] [id number] [place] [address] September, [facility] [place] [facility] [address] [facility] [id number] [place] [address] Jun, [facility] [address] [facility] [id number], [place] [address] Mar, IMMUNIZATIONS No Known Immunizations SOCIAL HISTORY Never Assessed REASON FOR VISIT f/u PLAN OF CARE Activity Details Follow Up Next available Reason: F/U VITAL SIGNS MEDICATIONS Unknown Medications RESULTS No Results PROCEDURES Procedure Date Ordered Result Body Site Psychotherapy, patient &/family, 45 minutes, established patient September 06, 2017 INSTRUCTIONS MEDICATIONS ADMINISTERED No Known Medications MEDICAL (GENERAL) HISTORY Type Description Date Medical History hypertension Medical History backache Medical History hematochezia Medical History Eye problems [...] hernia Hospitalization History Went by ambulance to [place] as unresponsive 05/2015 Hospitalization History [place] sent her to [facility] for a psych hold 05/2015
--- OUTSIDE RECORDS SUMMARY | 2018-03-15 11:01 | XMS REPORT ---
Author Author CARYL FRANZ Organization [facility] Address [address] [place] [address] Care Team Providers Care Board Design Engineer Name Role Phone OSEILOWELLA Unavailable PROBLEMS Type Condition ICD9-CM Code ZAI47-EU Code Onset Dates Condition Status SNOMED Code Problem Psoriasis L40.9 Active 0509198 Problem Relationship problem with family member Z63.8 Active 498923692 Problem Essential hypertension I10 Active 70309487 Problem Anxiety F41.9 Active 82787175 Problem Visual disturbance H53.9 Active 70441127 Problem Rheumatoid arthritis involving multiple sites with positive rheumatoid factor M05.79 Active 516938384 Problem Bilateral low back pain with sciatica, sciatica laterality unspecified M54.40 Active 971380354 Problem Hypokalemia E87.6 Active 75455832 Problem Lumbago with sciatica, left side M54.42 Active 084642944 Problem Other chronic pain G89.29 Active 31926454 Problem 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 Active 884412738 Problem Blindness of right eye H54.40 Active 716056939 Problem Posttraumatic stress disorder F43.10 Active 15687720 Problem Overdose T50.901A Active 29196165 Problem Bipolar disorder F31.9 Active 69109877 Problem Borderline personality disorder F60.3 Active 55991236 Problem Obstructive sleep apnea G47.33 Active 63329883 Problem Acquired hypothyroidism E03.9 Active 219280980 Problem Pelvic pain R10.2 Active 93013382 Problem Chronic pain G89.29 Active 27617250 Problem Gastro-esophageal reflux disease without esophagitis K21.9 Active 125235277 Problem Anemia due to other cause, not classified D64.89 Active 050106418 Problem Social anxiety disorder F40.10 Active 49875570 Problem Morbid obesity, unspecified obesity type E66.01 Active 567800810 ALLERGIES Substance Reaction Event Type Date Status Sulfamethoxazole-Trimethoprim Unknown Drug Allergy Aug, Active Iodine Unknown Drug Allergy Aug, Active Codeine Sulfate Unknown Drug Allergy Aug, Active Aspirin Unknown Drug Allergy Aug, Active shell fish Unknown Non Drug Allergy Aug, Active IVP dye Unknown Non Drug Allergy Aug, Active tape Unknown Non Drug Allergy Aug, Active strawberries Unknown Non Drug Allergy Aug, Active tomatoes Unknown Non Drug Allergy Aug, Active ENCOUNTERS Encounter Location Date Diagnosis [place] [address] [address] Feb, [place] [address] [place] [address] 28196- 3859 Dec, [address] [id number] [id number] Dec, [address] [place] [address] 90438- 2584 Nov, Bipolar disorder F31.9 ; Posttraumatic stress disorder F43.10 and Borderline personality disorder F60.3 [address] [place] [address] 55298- 8102 Nov, Rheumatoid arthritis involving multiple sites with positive rheumatoid factor M05.79 ; Dysuria R30.0 and Blindness of right eye H54.40 [address] [place] [address] 68289- 5186 Nov, Bipolar disorder F31.9 ; Posttraumatic stress disorder F43.10 ; Social anxiety disorder F40.10 and Relationship problem with family member Z63.8 [place] [address] [address] 1092 Nov, [place] [address] [place] [id number] [place] [address] 70267- 2037 Nov, [place] [address] [place] [address] [id number] [place] [address] 68474- 8435 Nov, 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 ; Adverse effect of antineoplastic and immunosuppressive drugs, initial encounter T45.1X5A ; Anemia , unspecified D64.9 and BMI 40.0-44.9, adult Z68.41 [place] [address] [place] [address] 75874- 2540 Nov, Anemia due to other cause, not classified D64.89 [place] [address] [place] [address] [id number] [place] [address] 45712- 8740 Oct, Adverse effect of drug, initial encounter T50.905A and Acute anemia D64.9 [place] [address] [place] [id number] [place] [address] 64532- 0746 Oct, Anemia due to other cause, not classified D64.89 ; Dysuria R30.0 and Urinary tract infection without hematuria, site unspecified N39.0 [place] [address] [place] [address] [id number] [place] [address] 56531- 3409 Oct, [place] [address] [place] [address] [id number] [place] [address] 57438- 7943 Oct, [place] [address] [address] [id number] [place] [address] 56575- 4237 Oct, 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 [facility] [id number] [place] [address] [id number] Oct, [place] [address] [place] [id number] [place] [address] 35178- 7212 Oct, [place] [address] [place] [address] 08324- 5187 Oct, [place] [address] [place] [address] [id number] [place] [address] 59463- 8113 Oct, Bipolar disorder F31.9 ; Posttraumatic stress disorder F43.10 and Borderline personality disorder F60.3 [place] [address] 23491- 8936 Oct, Rheumatoid arthritis involving multiple sites with positive rheumatoid factor M05.79 ; 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 and Anxiety F41.9 [place] [address] [place] [address] [id number] [place] [address] 76161- 3871 Oct, [facility] [id number] [place] [address] 14071- 7222 September, 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 [facility] [address] [id number] [place] [address] 45119- 1448 September, Bipolar disorder F31.9 ; Posttraumatic stress disorder F43.10 and Borderline personality disorder F60.3 [place] [address] 06314- 3831 Aug, BMI 40.0-44.9, adult Z68.41 ; Bipolar disorder F31.9 ; Posttraumatic stress disorder F43.10 and Social anxiety disorder F40.10 [place] [address] [place] [id number] [place] [address] 74731- 5460 Aug, Bipolar disorder F31.9 ; Posttraumatic stress disorder F43.10 and Borderline personality disorder F60.3 [place] [address] 09780- 5039 Aug, 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 [place] [address] [place] [id number] [place] [address] 81593- 1953 Jul, Bipolar disorder F31.9 ; Posttraumatic stress disorder F43.10 and Borderline personality disorder F60.3 [place] [address] [place] [address] [id number] [place] [address] 04155- 1927 Jul, [place] [address] 70750- 1235 Jun, Bipolar disorder F31.9 ; Posttraumatic stress disorder F43.10 and Borderline personality disorder F60.3 [place] [address] 17100- 9294 Jun, Blindness of right eye H54.40 and Acquired hypothyroidism E03.9 [place] [address] 20756- 2376 Jun, [place] [address] [place] [address] 6779 May, Posttraumatic stress disorder F43.10 ; Social anxiety disorder F40.10 and Bipolar disorder F31.9 [facility] [address] [place] [address] 44966- 3439 May, Bipolar disorder F31.9 ; Posttraumatic stress disorder F43.10 and Borderline personality disorder F60.3 [facility] [address] [place] [address] 99418- 7221 May, [facility] [address] [place] [address] 01226- 1620 May, [facility] [address] [address] [id number] [place] [address] 09264- 1529 Apr, Bipolar disorder F31.9 ; Posttraumatic stress disorder F43.10 and Borderline personality disorder F60.3 [place] [id number] [place] [address] [id number] Apr, [facility] [address] [place] [address] 80117- 2585 Apr, [place] [address] [place] [id number] [place] [address] 68831- 5687 Mar, Hydradenitis L73.2 [place] [address] [place] [address] 33175- 9255 Mar, Lumbago with sciatica, left side M54.42 ; Other chronic pain G89.29 ; Morbid obesity, unspecified obesity type E66.01 ; Hydradenitis L73.2 and BMI 40.0-44.9, adult Z68.41 [facility] [address] [place] [address] 60392- 2899 Mar, Bipolar disorder F31.9 ; Posttraumatic stress disorder F43.10 and Borderline personality disorder F60.3 [facility] [address] [place] [address] 98335- 9256 Mar, Social anxiety disorder F40.10 ; Bipolar disorder F31.9 and Relationship problem with family member Z63.8 [facility] [address] [facility] [id number] [address] Mar, [facility] [address] [id number] [id number] Mar, Dental examination Z01.20 [facility] [address] [place] [id number] [address]- 4415 Mar, [facility] [address] [id number] [place] [address] 13627- 5010 Feb, Bipolar disorder F31.9 ; Posttraumatic stress disorder F43.10 and Borderline personality disorder F60.3 [facility] [address] [id number] Feb, [facility] [address] [place] [address] 77985- 7347 14 Jan, 2017 Bipolar disorder F31.9 ; Posttraumatic stress disorder F43.10 and Borderline personality disorder F60.3 [facility] [address] [id number] [id number] Jan, [facility] [address] [place] [address] 70549- 5285 Jan, [facility] [id number] [place] [id number] Jan, [facility] [address] [place] [id number] [address]- 3607 Dec, Bipolar disorder F31.9 ; Posttraumatic stress disorder F43.10 and Borderline personality disorder F60.3 [facility] [address] [facility] [id number] [place] [address]- 6347 Dec, [facility] [address] [facility] [id number] [place] [address]- 2479 Dec, [facility] [address] [facility] [id number] [place] [id number] Dec, [facility] [address] [place] [address] [id number] [address]- 4287 Nov, Bipolar 1 disorder F31.9 ; Posttraumatic stress disorder F43.10 and Social anxiety disorder F40.10 [place] [address] [place] [address] 99081- 0569 Nov, Bipolar disorder F31.9 ; Posttraumatic stress disorder F43.10 and Borderline personality disorder F60.3 [place] [address] [place] [address] 12500- 1881 Nov, Morbid obesity, unspecified obesity type E66.01 [place] [address] [place] [address] 64644- 9316 Nov, [address] [id number] Oct, Encounter for dental examination and cleaning without abnormal findings Z01.20 [place] [id number] [place] [address] 78698- 9679 Oct, Morbid obesity, unspecified obesity type E66.01 and Acute seasonal allergic rhinitis due to pollen J30.1 [place] [address] [place] [id number] [place] [address] 94720- 0646 Oct, Bipolar disorder F31.9 ; Posttraumatic stress disorder F43.10 and Borderline personality disorder F60.3 [place] [address] [place] [address] 41426- 3778 September, Morbid obesity, unspecified obesity type E66.01 and Psoriasis L40.9 [place] [address] [place] [address] 85808- 7284 September, Bipolar disorder F31.9 ; Posttraumatic stress disorder F43.10 and Borderline personality disorder F60.3 [place] [address] [place] [address] 96834- 5792 September, Chronic pain G89.29 [place] [address] [place] [address] 60782- 9012 Aug, Other acute nonsuppurative otitis media of right ear H65.191 and Morbid obesity, unspecified obesity type E66.01 [facility] [address] [place] [address] 38216- 1143 Aug, Bipolar 1 disorder F31.9 ; Posttraumatic stress disorder F43.10 and Social anxiety disorder F40.10 [facility] [address] [place] [address] 21814- 7425 Aug, Bipolar disorder F31.9 ; Posttraumatic stress disorder F43.10 and Borderline personality disorder F60.3 [facility] [address] [id number] [place] [address] 73642- 4389 Jul, Morbid obesity due to excess calories E66.01 ; Gastro- esophageal reflux disease without esophagitis K21.9 and Chronic pain G89.29 [place] [address] [place] [id number] [place] [address] 30442- 9560 Jul, Morbid obesity due to excess calories E66.01 [facility] [id number] [place] [address] 92562- 8441 Jul, [facility] [address] [place] [address] 12400- 9673 Jul, [facility] [address] [id number] [place] [address] 99751- 6703 Jul, Morbid obesity due to excess calories E66.01 [facility] [address] [place] [address] 55785- 4529 Jul, Bipolar disorder F31.9 ; Posttraumatic stress disorder F43.10 and Borderline personality disorder F60.3 [facility] [address] [address]- 9900 Jun, [facility] [address] [address] [id number] [place] [address] 32124- 9063 Jun, Morbid obesity due to excess calories E66.01 [facility] [address] [place] [address] 19054- 1731 Jun, [place] [address] [place] [address] 41197- 3140 09 Jun, 2016 Morbid obesity, unspecified obesity type E66.01 [place] [address] [place] [address] 88259- 5231 03 Jun, 2016 Bipolar disorder F31.9 ; Posttraumatic stress disorder F43.10 and Borderline personality disorder F60.3 [place] [address] [place] [id number] [place] [address] 18012- 3005 Jun, [place] [address] [place] [id number] [place] [address] 38613- 1883 Jun, [place] [address] [place] [id number] [place] [address] 10542- 3124 Jun, Acquired hypothyroidism E03.9 and Morbid obesity due to excess calories E66.01 [place] [address] [place] [id number] [place] [address] 28829- 2221 May, Bipolar disorder F31.9 ; Posttraumatic stress disorder F43.10 and Borderline personality disorder F60.3 [place] [address] [place] [address] [id number] [place] [address] 21866- 7902 Apr, Bipolar 1 disorder F31.9 ; Posttraumatic stress disorder F43.10 and Social anxiety disorder F40.[address] [address] [id number] [id number] Apr, Encounter for dental examination Z01.20 [place] [address] [place] [address] 94321- 0710 Apr, [place] [address] [place] [id number] [place] [address] 96631- 8619 Apr, Acquired hypothyroidism E03.9 [place] [address] [place] [id number] [place] [address] 46490- 9755 Apr, Acquired hypothyroidism E03.9 [place] [address] [place] [id number] [place] [address] 34795- 4199 Apr, Bipolar disorder F31.9 ; Posttraumatic stress disorder F43.10 and Borderline personality disorder F60.3 [facility] [id number] [place] [address] 69675- 6511 Apr, Acquired hypothyroidism E03.9 [facility] [address] [id number] [id number] Mar, Encounter for dental examination and cleaning without abnormal findings Z01.20 [facility] [id number] [place] [address] 04691- 7362 Mar, [facility] [id number] [place] [address] 90066- 2571 Mar, Bipolar disorder F31.9 ; Posttraumatic stress disorder F43.10 and Borderline personality disorder F60.3 [place] [address] 82948- 6459 Mar, Essential (primary) hypertension I10 [facility] [id number] [place] [address] 64994- 7846 Feb, [facility] [address] 90929- 2437 Feb, [facility] [address] 81771- 7700 Feb, Pelvic pain R10.2 ; Lipid screening Z13.220 ; Fatigue, unspecified type R53.83 and Weight gain R63.5 [facility] [id number] [place] [address] 99721- 9528 Feb, Bipolar disorder F31.9 ; Posttraumatic stress disorder F43.10 and Borderline personality disorder F60.3 [facility] [address] 43165- 8063 Feb, [facility] [id number] [place] [address] 16167- 4032 Feb, [facility] [address] 34481- 9325 30 Jan, 2016 Obstructive sleep apnea syndrome G47.33 [facility] [address] [facility] [id number] [address]- 2092 Jan, [facility] [address] [facility] [address] [id number] [id number] 19 Jan, 2016 Dental examination Z01.20 [facility] [address] [place] [address] 00067- 5342 Jan, Bipolar 1 disorder F31.9 ; Posttraumatic stress disorder F43.10 and Social anxiety disorder F40.10 [facility] [address] [place] [address] 31279- 2689 Jan, Bipolar disorder F31.9 ; Posttraumatic stress disorder F43.10 and Borderline personality disorder F60.3 [facility] [address] [place] [address] 64359- 4944 Jan, Sciatica of left side M54.32 [facility] [address] [place] [address] 68880- 8841 Jan, [facility] [id number] [place] [address] 34733- 6781 Dec, [facility] [address] [place] [address] 21028- 8988 Dec, [facility] [address] [place] [address] 01323- 1305 Dec, Bipolar disorder F31.9 ; Posttraumatic stress disorder F43.10 and Borderline personality disorder F60.3 [facility] [address] [address]- 9336 Nov, [facility] [id number] [place] [address] 37514- 3416 Nov, Insomnia, unspecified type G47.00 [facility] [address] [address]- 4096 Nov, Bipolar disorder F31.9 ; Posttraumatic stress disorder F43.10 and Borderline personality disorder F60.3 [facility] [address] [address]- 1284 Nov, [facility] [address] [address]- 8646 Nov, [facility] [address] [address]- 2789 Oct, Bipolar disorder F31.9 ; Posttraumatic stress disorder F43.10 and Borderline personality disorder F60.3 [facility] [address] [address]- 5528 Oct, [facility] [id number] [place] [address] 94345- 0254 Oct, Essential (primary) hypertension I10 [facility] [address] [place] [address] 20694- 4236 September, Bipolar 1 disorder F31.9 ; Posttraumatic stress disorder F43.10 and Social anxiety disorder F40.10 [facility] [address] [address]- 7469 September, Bipolar disorder F31.9 ; Posttraumatic stress disorder F43.10 and Borderline personality disorder F60.[address] [id number] [id number] September, Encounter for dental examination and cleaning without abnormal findings Z01.20 [facility] [address] [address]- 1387 September, [facility] [address] [address]- 6797 September, [facility] [address] [address]- 3409 Aug, [facility] [id number] [address]- 3243 Aug, Bipolar disorder F31.9 ; Posttraumatic stress disorder F43.10 and Borderline personality disorder F60.3 [facility] [address] [address]- 5874 Aug, [facility] [address] [place] [address] 26801- 9711 Aug, [facility] [address] [address]- 2033 Aug, [facility] [id number] [id number] Jul, Acute nasopharyngitis [common cold] J00 and Other viral agents as the cause of diseases classified elsewhere B97.89 [facility] [id number] [place] [address] 06823- 1595 24 Jul, 2015 Chronic pain G89.29 and Allergic rhinitis J30.9 [facility] [address] [place] [address] 83921- 2303 Jul, Bipolar 1 disorder F31.9 ; Posttraumatic stress disorder F43.10 and Social anxiety disorder F40.10 [facility] [address] [place] [address] 67895- 2598 16 Jul, 2015 Bipolar 1 disorder F31.9 [facility] [address] [place] [address] 36456- 7769 16 Jul, 2015 Bipolar disorder F31.9 ; Posttraumatic stress disorder F43.10 and Borderline personality disorder F60.3 [facility] [address] [address]- 5124 14 Jul, 2015 [facility] [address] [place] [address] 49283- 4580 14 Jul, 2015 [facility] [id number] [place] [address] 58730- 8159 11 Jul, 2015 [facility] [address] [place] [address] 82565- 7746 10 Jul, 2015 Anxiety F41.9 [facility] [id number] [place] [address] 06001- 4009 10 Jul, 2015 Chronic pain G89.29 and Encounter for therapeutic drug level monitoring Z51.81 [facility] [id number] [place] [address] 15979- 4935 09 Jul, 2015 Chronic pain G89.29 and Encounter for therapeutic drug level monitoring Z51.81 [facility] [address] [place] [address] 65939- 1776 08 Jul, 2015 [facility] [id number] [place] [address] 75758- 3757 Jun, [facility] [id number] [place] [address] 85363- 8226 Jun, [facility] [id number] [place] [address] 19045- 4004 Jun, [facility] [id number] [place] [address] [phone] Jun, [facility] [id number] [place] [address] [phone] Jun, High risk medication use V58.69 [facility] [id number] [place] [address] [phone] Jun, [facility] [id number] [place] [address] [phone] Jun, Bipolar 1 disorder F31.9 ; Overdose T50.901A and Chronic pain G89.29 [facility] [id number] [place] [address] [phone] Jun, Bipolar disorder F31.9 ; Posttraumatic stress disorder F43.10 and Borderline personality disorder F60.3 [facility] [id number] [place] [address] 88507- 4848 Jun, [facility] [id number] [place] [address] 30274- 9353 Jun, [facility] [address] [address] 3131 Jun, Keloid L91.0 [facility] [id number] [place] [address] 27363- 6495 Jun, [facility] [id number] [place] [address] 46256- 8278 May, [facility] [id number] [place] [address] 42684- 9252 May, [facility] [id number] [place] [address] 70350- 7032 May, Pelvic pain R10.2 [facility] [id number] [place] [address] 74291- 9973 May, [facility] [id number] [place] [address] 16758- 1912 May, Pain of left thumb M79.645 ; Incisional pain R20.8 ; Pelvic pain R10.2 and Essential hypertension I10 [facility] [address] [address] 4591 May, [facility] [id number] [place] [address] 79454- 8979 May, [address] [id number] [id number] May, Dental examination Z01.20 and Necrosis of pulp K04.1 [facility] [address] [address]- 1820 Apr, [facility] [id number] [place] [address] 81276- 1020 Apr, [facility] [id number] [place] [address] 16638- 8949 Apr, [facility] [id number] [place] [address] 63127- 5603 Apr, [facility] [place] [facility] [address] [id number] [place] [address]- 2874 08 Apr, 2014 [facility] [place] [facility] [address] [id number] [place] [address]- 7723 07 Apr, 2014 [facility] [place] [facility] [address] [id number] [place] [address]- 7938 Apr, 2014 [facility] [place] [facility] [address] [id number] [place] [address]- 9778 Apr, 2014 [facility] [place] [facility] [address] [id number] [place] [address]- 4073 Mar, 2014 [facility] [place] [facility] [address] [id number] [place] [address]- 1892 Mar, 2014 [facility] [place] [facility] [address] [id number] [place] [address]- 5394 Mar, 2014 [facility] [place] [facility] [address] [id number] [place] [address]- 6271 Mar, 2014 [facility] [place] [facility] [address] [id number] [place] [address]- 8105 Feb, [facility] [place] [facility] [address] [id number] [place] [address]- 4182 Feb, 2014 [facility] [place] [facility] [address] [id number] [place] [address]- 5063 Feb, 2014 [facility] [place] [facility] [address] [id number] [place] [address]- 0540 Feb, 2014 [facility] [place] [facility] [address] [id number] [place] [address]- 4143 Feb, 2014 [facility] [place] [facility] [address] [id number] [place] [address]- 1899 19 Feb, 2014 [facility] [place] [facility] [address] [id number] [place] [address]- 1341 16 Feb, 2014 [facility] [place] [facility] [address] [id number] [place] [address]- 2281 Feb, Dermatofibroma of left lower leg D23.72 [facility] [address] [id number] [address]- 6394 Feb, Hematochezia 578.1 ; Low back pain M54.5 ; High risk medication use V58.69 ; Cervicalgia M54.2 and Anxiety F41.[address] [id number] [id number] Feb, Dental examination Z01.20 ; Pulpitis K04.0 and Dental caries, unspecified K02.[address] [id number] [id number] Feb, Dental examination Z01.20 [facility] [id number] [place] [address] 40741- 0491 Jan, [facility] [id number] [place] [address] 22571- 3755 Jan, [facility] [id number] [place] [address] 05104- 7867 Jan, [facility] [id number] [place] [address] 47829- 2474 Jan, [facility] [id number] [place] [address] 58532- 2023 Dec, [facility] [id number] [place] [address] 86409- 0058 Dec, [facility] [id number] [place] [address] 40013- 2939 Dec, [facility] [id number] [place] [address] 51783- 1097 Dec, [facility] [id number] [place] [address] 94692- 2733 Dec, [facility] [id number] [place] [address] 77994- 7076 Dec, [facility] [address] [id number] [place] [address]- 1475 Dec, [facility] [address] [facility] [id number] [place] [address]- 6370 Dec, [facility] [address] [id number] [place] [id number] Nov, Encounter for removal of sutures V58.32 [facility] [address] [id number] [place] [address] 2546 Nov, [facility] [address] [id number] [place] [address] 2547 Nov, [facility] [address] [facility] [id number] [place] [address]- 9816 Nov, [facility] [address] [id number] [address]- 0160 Nov, [facility] [address] [id number] [address]- 7294 Nov, [facility] [address] [facility] [id number] [place] [address]- 3345 Nov, [facility] [address] [facility] [id number] [place] [address]- 0373 Nov, [facility] [address] [id number] [address]- 6877 Nov, Dermatofibroma 216.9 [facility] [address] [facility] [id number] [place] [address]- 8271 Nov, [facility] [address] [facility] [id number] [place] [address]- 4474 Nov, [facility] [address] [facility] [id number] [place] [address]- 2246 Oct, [facility] [address] [id number] [address]- 4139 Oct, Hematochezia 578.1 ; Abscess 682.9 ; GERD (gastroesophageal reflux disease) 530.81 ; Visual disturbance of one eye 368.9 and High risk medication use V58.69 [facility] [address] [id number] [address]- 6120 Oct, [facility] [address] [id number] [address]- 9646 Oct, [facility] [id number] [place] [address] 82209- 4520 Oct, [facility] [id number] [place] [address] 29872- 0828 September, [facility] [id number] [place] [address] 19402- 1373 September, [facility] [id number] [place] [address] 77503- 3413 September, [facility] [id number] [place] [address] 35463- 0581 September, [facility] [address] 9541 September, [facility] [id number] [place] [address] 42645- 7175 September, Colon cancer screening V76.51 [facility] [address] [address]- 6476 September, [facility] [address]65[address] [address]- 0552 Aug, [facility] [address] [address]- 3155 Aug, [facility] [address] [id number] [address]- 6186 Jul, [facility] [address] [address]- 2286 Jul, [facility] [address] [id number] [place] [address]- 2399 Jul, [facility] [place] [facility] [address] [id number] [place] [address]- 1156 Jul, [facility] [place] [facility] [address] [id number] [place] [address]- 8146 Jun, [facility] [place] [facility] [address] [id number] [place] [address]- 5766 Jun, 2014 [facility] [place] [facility] [address] [id number] [place] [address]- 1211 Jun, [facility] [place] [facility] [address] [id number] [place] [address]- 5357 Jun, [facility] [place] [facility] [address] [id number] [place] [address]- 7373 Jun, [facility] [place] [facility] [address] [id number] [place] [address]- 5052 Jun, [facility] [place] [facility] [address] [id number] [place] [address]- 4867 May, [facility] [place] [facility] [address] [id number] [place] [address]- 7549 May, [facility] [place] [facility] [address] [id number] [place] [address]- 9241 May, [facility] [place] [facility] [address] [id number] [place] [address]- 0673 May, [facility] [place] [facility] [address] [id number] [place] [address] 2545 May, [facility] [place] [facility] [address] [id number] [place] [address]- 2716 May, [facility] [place] [facility] [address] [id number] [place] [address]- 1846 May, [facility] [place] [facility] [address] [id number] [place] [address]- 9714 May, [facility] [place] [facility] [address] [id number] [place] [address]- 7705 Apr, [facility] [place] [facility] [address] [id number] [place] [address]- 3448 Apr, [facility] [place] [facility] [address] [id number] [place] [address]- 6789 Apr, [facility] [place] [facility] [address] [id number] [place] [address]- 6473 Apr, [facility] [place] [facility] [address] [id number] [place] [address]- 5601 Apr, [facility] [place] [facility] [address] [id number] [place] [address]- 4505 Apr, [facility] [place] [facility] [address] [id number] [place] [address]- 9052 Apr, [facility] [place] [facility] [address] [id number] [place] [address]- 4367 Apr, [facility] [place] [facility] [address] [id number] [place] [address]- 3357 Mar, [facility] [place] [facility] [address] [id number] [place] [address]- 2407 Mar, [facility] [place] [facility] [address] [id number] [place] [address]- 9489 Mar, [facility] [place] [facility] [address] [id number] [place] [address]- 2972 Mar, [facility] [place] [facility] [address] [id number] [place] [address]- 1723 Mar, [facility] [place] [facility] [address] [id number] [place] [address]- 8157 Mar, [facility] [place] [facility] [address] [id number] [place] [address]- 2675 Mar, [facility] [place] [facility] [address] [id number] [place] [address]- 4058 Mar, [facility] [place] [facility] [address] [id number] [place] [address]- 3501 Mar, [facility] [place] [facility] [address] [id number] [place] [address]- 8994 Mar, [facility] [place] [facility] [address] [id number] [place] [address]- 0277 Feb, [facility] [place] [facility] [address] [id number] [place] [address]- 8838 Feb, [facility] [place] [facility] [address] [id number] [place] [address]- 0348 Jan, [facility] [place] [facility] [address] [id number] [place] [address]- 9491 Jan, [facility] [place] [facility] [address] [id number] [place] [address]- 2639 Jan, [facility] [place] [facility] [address] [id number] [place] [address]- 2624 Jan, [facility] [place] [facility] [address] [id number] [place] [address]- 7103 Dec, [facility] [place] [facility] [address] [id number] [place] [address]- 4364 Dec, [facility] [place] [facility] [address] [id number] [place] [address]- 7681 Dec, [facility] [place] [facility] [address] [id number] [place] [address]- 2448 Dec, [facility] [place] [facility] [address] [id number] [place] [address]- 2153 Dec, [facility] [place] [facility] [address] [id number] [place] [address]- 4347 Dec, [facility] [place] [facility] [address] [id number] [place] [address]- 7090 Nov, [facility] [place] [facility] [address] [id number] [place] [address]- 8636 Nov, [facility] [place] [facility] [address] [id number] [place] [address]- 0870 Oct, [facility] [place] [facility] [address] [id number] [place] [address]- 3651 Oct, [facility] [place] [facility] [address] [id number] [place] [address]- 0655 Oct, [facility] [place] [facility] [address] [id number] [place] [address]- 2176 Oct, [facility] [place] [facility] [address] [id number] [place] [address]- 7639 September, [facility] [place] [facility] [address] [id number] [place] [address]- 0271 September, [facility] [place] [facility] [address] [id number] [place] [address]- 2964 September, [facility] [place] [facility] [address] [id number] [place] [address]- 7288 September, [facility] [place] [facility] [address] [id number] [place] [address]- 9900 September, [facility] [place] [facility] [address] [id number] [place] [address]- 3201 September, [facility] [place] [facility] [address] [id number] [place] [address]- 3408 September, [facility] [place] [facility] [address] [id number] [place] [address]- 6057 September, [facility] [place] [facility] [address] [id number] [place] [address]- 2870 Aug, [facility] [place] [facility] [address] [id number] [place] [address]- 4062 Aug, [facility] [place] [facility] [address] [id number] [place] [address]- 8429 Aug, [facility] [place] [facility] [address] [id number] [place] [address]- 6098 Aug, [facility] [place] [facility] [address] [id number] [place] [address]- 1626 Aug, [facility] [place] [facility] [address] [facility] [id number] [place] [address]- 5470 Aug, [facility] [place] [facility] [address] [id number] [place] [address]- 2726 Jul, [facility] [place] [facility] [address] [id number] [place] [address]- 4480 Jul, [facility] [place] [facility] [address] [facility] [id number] [place] [address]- 9253 Jul, [facility] [place] [facility] [address] [facility] [id number] [place] [address]- 0484 Jul, [facility] [place] [facility] [address] [facility] [id number] [place] [address]- 4840 Jun, [facility] [place] [facility] [address] [facility] [id number] [place] [address]- 9785 Jun, [facility] [place] [facility] [address] [facility] [id number] [place] [address]- 3599 Jun, [facility] [place] [facility] [address] [facility] [id number] [place] [address]- 3688 Jun, [facility] [place] [facility] [address] [facility] [id number] [place] [address]- 1589 Jun, [facility] [place] [facility] [address] [facility] [id number] [place] [address]- 8485 Jun, [facility] [place] [facility] [address] [facility] [id number] [place] [address]- 0311 May, [facility] [place] [facility] [address] [facility] [id number] [place] [address]- 1508 May, [facility] [place] [facility] [address] [id number] [place] [address]- 0197 May, [facility] [address] [id number] [place] [address]- 6254 May, [facility] [address] [id number] [place] [address]- 4386 May, [facility] [address] [id number] [place] [address]- 9886 May, [facility] [address] [id number] [place] [address]- 1100 May, [facility] [address] [id number] [place] [address]- 3364 May, [facility] [address] [id number] [place] [address]- 7585 Apr, [facility] [address] [place] [id number] Apr, [facility] [address] [id number] [place] [address]- 1625 Apr, [facility] [address] [id number] [place] [address]- 8004 Apr, [facility] [address] [id number] [place] [address]- 6034 Apr, [facility] [address] [id number] [place] [address]- 2633 Apr, [facility] [address] [id number] [place] [address]- 2546 Apr, [facility] [address] [id number] [place] [address]- 2196 05 Apr, 2013 [facility] [address] [id number] [place] [address]- 2546 04 Apr, 2013 [facility] [address] [id number] [place] [address]- 2266 Mar, [facility] [address] [id number] [place] [address]- 4467 Mar, [facility] [address] [id number] [place] [address]- 4594 Mar, [facility] [place] [facility] [address] [id number] [place] [address]- 7786 Mar, [facility] [address] [id number] [place] [address]- 5070 Mar, [facility] [address] [id number] [place] [address]- 6425 Feb, [facility] [place] [facility] [address] [id number] [place] [address]- 2137 Feb, [facility] [address] [id number] [place] [address]- 6940 Feb, [facility] [address] [id number] [place] [address]- 6869 Feb, [facility] [address] [id number] [place] [address]- 6219 Jan, [facility] [address] [id number] [place] [address]- 5110 24 Jan, 2013 [facility] [address] [id number] [place] [address]- 8880 Jan, [facility] [address] [id number] [place] [address]- 6368 Dec, [facility] [place] [facility] [address] [id number] [place] [address]- 3530 Dec, [facility] [place] [facility] [address] [id number] [place] [address]- 7652 Dec, [facility] [address] [id number] [place] [id number] Nov, [facility] [address] [id number] [place] [id number] Oct, [facility] [place] [facility] [address] [id number] [place] [address]- 8654 Oct, [facility] [address] [id number] [place] 6426 September, [facility] [address] [id number] [place] [address] September, [facility] [place] [facility] [address] [id number] [place] [address] September, [facility] [address] [id number] [place] [address] September, [facility] [address] [id number] [place] [address] September, [facility] [address] [id number] [place] [address] Jul, [facility] [address] [id number] [place] [address] Jul, [facility] [address] [id number] [place] [address] Jul, [facility] [address] [id number] [place] [address] Jul, [facility] [place] [facility] [address] [id number] [place] [address] Jun, [facility] [place] [facility] [address] [id number] [place] [address] Jun, [facility] [place] [facility] [address] [id number] [place] [address] Jun, [facility] [place] [facility] [address] [id number] [place] [address] Jun, [facility] [place] [facility] [address] [id number] [place] [address] May, [facility] [place] [facility] [address] [id number] [place] [address] Mar, [facility] [place] [facility] [address] [id number] [place] [address] Mar, [facility] [place] [facility] [address] [facility] [id number] [place] [address] Mar, [facility] [place] [facility] [address] [facility] [id number] [place] [address] Mar, [facility] [place] [facility] [address] [facility] [id number] [place] [address] Mar, [facility] [place] [facility] [address] [facility] [id number] [place] [address] Mar, [facility] [place] [facility] [address] [facility] [id number] [place] [address] Mar, [facility] [place] [facility] [address] [facility] [id number] [place] [address] Mar, [facility] [place] [facility] [address] [facility] [id number] [place] [address] Feb, [facility] [place] [facility] [address] [facility] [id number] [place] [address] Feb, [facility] [place] [facility] [address] [facility] [id number] [place] [address] Feb, [facility] [place] [facility] [address] [facility] [id number] [place] [address] Feb, [facility] [place] [facility] [address] [facility] [id number] [place] [address] Feb, [facility] [place] [facility] [address] [facility] [id number] [place] [address] Feb, [facility] [place] [facility] [address] [facility] [id number] [place] [address] Feb, [facility] [address] [id number] [place] [id number] Jan, [facility] [address] [id number] [place] [id number] Dec, [facility] [address] [id number] [place] [id number] Dec, [facility] [address] [id number] [place] [address] Nov, [facility] [place] [facility] [address] [facility] [id number] [place] [address] Nov, [facility] [place] [facility] [address] [id number] [place] [address] Oct, [facility] [place] [facility] [address] [id number] [place] [address] Jul, [facility] [place] [facility] [address] [facility] [id number] [place] [address] Jul, [facility] [address] [id number] [address] May, [facility] [place] [facility] [address] [facility] [id number] [place] [address] May, [facility] [place] [facility] [address] [facility] [id number] [place] [address] Nov, [facility] [place] [facility] [address] [facility] [id number] [place] [address] Mar, [facility] [place] [facility] [address] [facility] [id number] [place] [address] Dec, [facility] [place] [facility] [address] [facility] [id number] [place] [address] Nov, [facility] [place] [facility] [address] [facility] [id number] [place] [address] Aug, [facility] [place] [facility] [address] [facility] [id number] [place] [address] Apr, [facility] [place] [facility] [address] [facility] [id number] [place] [address] Apr, [facility] [place] [facility] [address] [facility] [id number] [place] [address] Mar, [facility] [address] [facility] [id number] [place] [address] Feb, [facility] [address] [facility] [id number] [place] [address] September, [facility] [address] [facility] [id number] [place] [address] Jun, [facility] [address] [facility] [id number] [place] [address] Mar, IMMUNIZATIONS No Known Immunizations SOCIAL HISTORY Never Assessed REASON FOR VISIT f/u Mame, pt is taking new medication but does not know what it is PLAN OF CARE Activity Details Follow Up 3 Months Reason: VITAL SIGNS Height 62 in 2017-09-06 Weight 225.7 lbs 2017-09-06 Heart Rate 96 bpm 2017-09-06 Respiratory Rate 20 2017-09-06 BMI 41.28 kg/m2 2017-09-06 Blood pressure systolic 144 mmHg 2017-09-06 Blood pressure diastolic 82 mmHg 2017-09-06 MEDICATIONS Medication Instructions Dosage Frequency Start Date End Date Duration Status Sumatriptan 5 mg by oral route Once a day 1 tablet 24h Active Losartan Potassium-HCTZ 50-12.5 MG Orally Once a day 1 tablet 24h 90 Active Triamcinolone Acetonide 0.5 % Externally Twice a day 1 application to affected area 12h September, Active Oxygen 2 L/NC Active Prednisone 20 mg Oral 2 times a day 1 1/2 tablets 12h Active Fish Oil 300 MG Orally Once a day 1 capsule 24h Active Tizanidine HCl 2 MG Orally 2 times a day 1 tablet as needed 12h Feb, 90 days Active Cymbalta 60 mg Orally Once a day 2 capsule 24h 30 days Active Estradiol 1 MG Orally Once a day 1 tablet 24h Active Atorvastatin Calcium 20 MG Orally Once a day 1 tablet 24h 90 Active Dicyclomine HCl 20 mg 1 tablet Four times a day Orally 30 days 30 Active Fluocinolone Acetonide 0.01 % Externally twice [...] an empty stomach 6h 90 Active Creon 27179 UNIT Orally 3 times a day 1 capsule before meals 8h Nov, 30 days Active Doxepin HCl 10 mg Orally Once at bedtime for sleep 1 capsule at bedtime September, Active Lamotrigine 200 mg Orally Once a day 1 tablet 24h Active Combivent Respimat 20-100 MCG/ACT Inhalation Four times a day 1 puff 6h 30 Active Loratadine 10 mg Orally 2 times a day 1 tablet 12h September, 90 days Active Lipitor 20 mg Orally Once a day 1 tablet 24h 90 Not-Taking Gabapentin 300 MG Orally 3 times a [...] hernia Hospitalization History Went by ambulance to [place] as unresponsive 05/2015 Hospitalization History [place] sent her to [facility] for a psych hold 05/2015
--- OUTSIDE RECORDS SUMMARY | 2018-03-15 11:02 | XMS REPORT ---
Author Author HERBERT MCGOWAN Organization [facility] Address [facility] [place][note 2][address] [place] [address] Care Team Providers Care [employer] Supervisor Name Role Phone HERBERT MCGOWAN Unavailable PROBLEMS Type Condition ICD9-CM Code [id number] Code Onset Dates Condition Status SNOMED Code Problem Psoriasis L40.9 Active 6964420 Problem Relationship problem with family member Z63.8 Active 800057345 Problem Essential hypertension I10 Active 80747593 Problem Anxiety F41.9 Active 98032183 Problem Visual disturbance H53.9 Active 40888874 Problem Rheumatoid arthritis involving multiple sites with positive rheumatoid factor M05.79 Active 083150336 Problem Bilateral low back pain with sciatica, sciatica laterality unspecified M54.40 Active 106622756 Problem Hypokalemia E87.6 Active 58902473 Problem Lumbago with sciatica, left side M54.42 Active 065095937 Problem Other chronic pain G89.29 Active 50643411 Problem 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 Active 892749162 Problem Blindness of right eye H54.40 Active 834693105 Problem Posttraumatic stress disorder F43.10 Active 73763995 Problem Overdose T50.901A Active 47850241 Problem Bipolar disorder F31.9 Active 36751506 Problem Borderline personality disorder F60.3 Active 39720799 Problem Obstructive sleep apnea G47.33 Active 26080570 Problem Acquired hypothyroidism E03.9 Active 175515423 Problem Pelvic pain R10.2 Active 24333235 Problem Chronic pain G89.29 Active 19683575 Problem Gastro-esophageal reflux disease without esophagitis K21.9 Active 084208457 Problem Anemia due to other cause, not classified D64.89 Active 617522914 Problem Social anxiety disorder F40.10 Active 67439278 Problem Morbid obesity, unspecified obesity type E66.01 Active [id number] ALLERGIES No Information ENCOUNTERS Encounter Location Date Diagnosis [facility] [address] [address] Feb, [facility] [address] [address] Dec, [facility] [address] [id number] [id number] Dec, [facility] [address] [place] [address] 30779- 6159 Nov, Bipolar disorder F31.9 ; Posttraumatic stress disorder F43.10 and Borderline personality disorder F60.3 [place] [id number] [place] [address] 38623- 2152 Nov, Rheumatoid arthritis involving multiple sites with positive rheumatoid factor M05.79 ; Dysuria R30.0 and Blindness of right eye H54.40 [place] [id number] [place] [address] 84311- 2579 Nov, Bipolar disorder F31.9 ; Posttraumatic stress disorder F43.10 ; Social anxiety disorder F40.10 and Relationship problem with family member Z63.8 [place] [id number] [place] [address] 86308- 4193 Nov, [place] [id number] [place] [address] 31761- 7008 Nov, [place] [address] [place] [address] 05606- 6840 Nov, 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 ; Adverse effect of antineoplastic and immunosuppressive drugs, initial encounter T45.1X5A ; Anemia , unspecified D64.9 and BMI 40.0-44.9, adult Z68.41 [place] [id number] [place] [address] 63143- 5143 Nov, Anemia due to other cause, not classified D64.89 [place] [address] [place] [address] 95964- 1057 Oct, Adverse effect of drug, initial encounter T50.905A and Acute anemia D64.9 [facility] [id number] [address] 16[address] 27 Oct, 2017 Anemia due to other cause, not classified D64.89 ; Dysuria R30.0 and Urinary tract infection without hematuria, site unspecified N39.0 [facility] [address] [address] 3[address] Oct, [facility] [address] [place] [address] 38764- 8529 Oct, [facility] [address] [address]26 Oct, 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 [address] [id number] Oct, [facility] [address] [address] 28[address] Oct, [facility] [address] [address]- 6166 Oct, [facility] [address] [place] [address] 90136- 6588 Oct, Bipolar disorder F31.9 ; Posttraumatic stress disorder F43.10 and Borderline personality disorder F60.3 [facility] [address] [address] 6[address] Oct, Rheumatoid arthritis involving multiple sites with positive rheumatoid factor M05.79 ; 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 and Anxiety F41.9 [facility] [id number] [address] 4[address] Oct, [facility] [address] [place] [address] 52332- 3088 September, 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 [facility] [id number] [address] September, Bipolar disorder F31.9 ; Posttraumatic stress disorder F43.10 and Borderline personality disorder F60.3 [facility] [address] [address] 2604 Aug, BMI 40.0-44.9, adult Z68.41 ; Bipolar disorder F31.9 ; Posttraumatic stress disorder F43.10 and Social anxiety disorder F40.10 [facility] [address] [place] [address] 95634- 0817 Aug, Bipolar disorder F31.9 ; Posttraumatic stress disorder F43.10 and Borderline personality disorder F60.3 [facility] [id number] [place] [address] 57520- 8446 Aug, 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 [facility] [id number] [place] [address] 86100- 2146 Jul, Bipolar disorder F31.9 ; Posttraumatic stress disorder F43.10 and Borderline personality disorder F60.3 [facility] [id number] [place] [address] 58013- 7818 Jul, [facility] [id number] [place] [address] 86362- 6179 Jun, Bipolar disorder F31.9 ; Posttraumatic stress disorder F43.10 and Borderline personality disorder F60.3 [facility] [id number] [place] [address] 02754- 6772 Jun, Blindness of right eye H54.40 and Acquired hypothyroidism E03.9 [facility] [address] [place] [address] 24367- 4890 Jun, [facility] [id number] [place] [address] 04478- 9235 May, Posttraumatic stress disorder F43.10 ; Social anxiety disorder F40.10 and Bipolar disorder F31.9 [facility] [address] [place] [address] 82590- 0357 May, Bipolar disorder F31.9 ; Posttraumatic stress disorder F43.10 and Borderline personality disorder F60.3 [place] [address] [address] 5555 May, [place] [address] [place] [address] 54613- 5874 May, [place] [address] [place] [address] 35972- 0115 Apr, Bipolar disorder F31.9 ; Posttraumatic stress disorder F43.10 and Borderline personality disorder F60.3 [address] [id number] Apr, [place] [id number] [place] [address] 73146- 2043 Apr, [place] [id number] [place] [address] 45870- 1572 Mar, Hydradenitis L73.2 [id number] [place] [address] 46466- 5474 15 Mar, 2017 Lumbago with sciatica, left side M54.42 ; Other chronic pain G89.29 ; Morbid obesity, unspecified obesity type E66.01 ; Hydradenitis L73.2 and BMI 40.0-44.9, adult Z68.41 [address] [place] [address] 93136- 3465 07 Mar, 2017 Bipolar disorder F31.9 ; Posttraumatic stress disorder F43.10 and Borderline personality disorder F60.3 [place] [address] [place] [address] 75082- 4477 Mar, Social anxiety disorder F40.10 ; Bipolar disorder F31.9 and Relationship problem with family member Z63.8 [place] [id number] [place] [address] 28069- 2665 06 Mar, 2017 [facility] [address] [id number] [id number] 06 Mar, 2017 Dental examination Z01.20 [address] [place] [address] 69569- 3086 Mar, [facility] [address] [facility] [id number] [address] Feb, Bipolar disorder F31.9 ; Posttraumatic stress disorder F43.10 and Borderline personality disorder F60.3 [facility] [address] [facility] [id number] [id number] Feb, [facility] [address] [place] [address] 00473- 2661 Jan, Bipolar disorder F31.9 ; Posttraumatic stress disorder F43.10 and Borderline personality disorder F60.[address] [id number] [id number] Jan, [facility] [address] [address] 3246 Jan, [facility] [address] [id number] Jan, [facility] [address] [address] 8000 Dec, Bipolar disorder F31.9 ; Posttraumatic stress disorder F43.10 and Borderline personality disorder F60.3 [facility] [address] [address]- 7679 Dec, [facility] [address] [address]- 1016 Dec, [facility] [address] [facility] [id number][place] [id number] Dec, [facility] [address] [facility] [id number] [address] 4819 Nov, Bipolar 1 disorder F31.9 ; Posttraumatic stress disorder F43.10 and Social anxiety disorder F40.10 [facility] [address] [facility] [id number] [place] [address]- 0150 Nov, Bipolar disorder F31.9 ; Posttraumatic stress disorder F43.10 and Borderline personality disorder F60.3 [facility] [address] [place] [address] 20020- 6414 Nov, Morbid obesity, unspecified obesity type E66.01 [place] [id number] [place] [address] 53975- 3749 Nov, [facility] ROS[facility]IO Sherman [facility] [address] [id number] [id number] Oct, Encounter for dental examination and cleaning without abnormal findings Z01.[address] 93713- 0995 15 Oct, 2016 Morbid obesity, unspecified obesity type E66.01 and Acute seasonal allergic rhinitis due to pollen J30.[address] 73677- 8978 Oct, Bipolar disorder F31.9 ; Posttraumatic stress disorder F43.10 and Borderline personality disorder F60.[address] 34558- 8889 September, Morbid obesity, unspecified obesity type E66.01 and Psoriasis L40.[address] 74992- 0272 September, Bipolar disorder F31.9 ; Posttraumatic stress disorder F43.10 and Borderline personality disorder F60.3 [place] [id number] [place] [address] 33013- 5969 September, Chronic pain G89.[address] 21131- 1718 Aug, Other acute nonsuppurative otitis media of right ear H65.191 and Morbid obesity, unspecified obesity type E66.01 [place] [id number] [place] [address] 83763- 8953 Aug, Bipolar 1 disorder F31.9 ; Posttraumatic stress disorder F43.10 and Social anxiety disorder F40.[address] 26373- 5949 Aug, Bipolar disorder F31.9 ; Posttraumatic stress disorder F43.10 and Borderline personality disorder F60.3 [facility] [id number] [place] [address] Jul, Morbid obesity due to excess calories E66.01 ; Gastro- esophageal reflux disease without esophagitis K21.9 and Chronic pain G89.29 [facility] [id number] [place] [address] 14630- 8352 Jul, Morbid obesity due to excess calories E66.01 [facility] [id number] [place] [address] 72481- 9496 Jul, [facility] [id number] [place] [address] 46537- 6593 Jul, [facility] [id number] [place] [address] 66866- 3103 Jul, Morbid obesity due to excess calories E66.01 [facility] [id number] [place] [address] 39546- 7384 Jul, Bipolar disorder F31.9 ; Posttraumatic stress disorder F43.10 and Borderline personality disorder F60.3 [facility] [id number] [place] [address] 61322- 8696 Jun, [facility] [address] [place] [address] 18682- 2805 Jun, Morbid obesity due to excess calories E66.01 [facility] [address] [place] [address] 54690- 3774 Jun, [facility] [id number] [place] [address] 22623- 6398 Jun, Morbid obesity, unspecified obesity type E66.01 [facility] [address] [place] [address] 79164- 9515 03 Jun, 2016 Bipolar disorder F31.9 ; Posttraumatic stress disorder F43.10 and Borderline personality disorder F60.3 [facility] [address] [address]- 2752 03 Jun, 2016 [facility] [address] [place] [address] 13533- 2058 03 Jun, 2016 [facility] [address] [place] [address] 66664- 7110 02 Jun, 2016 Acquired hypothyroidism E03.9 and Morbid obesity due to excess calories E66.01 [facility] [address] [place] [address] 98017- 0199 May, Bipolar disorder F31.9 ; Posttraumatic stress disorder F43.10 and Borderline personality disorder F60.3 [facility] [address] [place] [address] 47424- 3443 Apr, Bipolar 1 disorder F31.9 ; Posttraumatic stress disorder F43.10 and Social anxiety disorder F40.[address] [place] [id number] [id number] Apr, Encounter for dental examination Z01.20 [facility] [address] [place] [address] 98082- 1204 Apr, [facility] [address] [place] [address] 77260- 1199 Apr, Acquired hypothyroidism E03.9 [facility] [address] [place] [address] 40298- 2203 Apr, Acquired hypothyroidism E03.9 [facility] [id number] [place] [address] 00423- 4673 Apr, Bipolar disorder F31.9 ; Posttraumatic stress disorder F43.10 and Borderline personality disorder F60.3 [facility] [address] [address]- 2739 Apr, Acquired hypothyroidism E03.9 [facility] [address] [id number] [id number] Mar, Encounter for dental examination and cleaning without abnormal findings Z01.20 [facility] [address] [address]- 0109 08 Mar, 2016 [facility] [id number] [place] [address] 56075- 3194 08 Mar, 2016 Bipolar disorder F31.9 ; Posttraumatic stress disorder F43.10 and Borderline personality disorder F60.3 [facility] [id number] [place] [address] 52924- 5532 03 Mar, 2016 Essential (primary) hypertension I10 [facility] [id number] [place] [address] 12371- 1644 Feb, [facility] [id number] [place] [address] 13230- 9720 Feb, [facility] [id number] [place] [address] 59885- 5059 Feb, Pelvic pain R10.2 ; Lipid screening Z13.220 ; Fatigue, unspecified type R53.83 and Weight gain R63.5 [facility] [id number] [place] [address] 89655- 4185 Feb, Bipolar disorder F31.9 ; Posttraumatic stress disorder F43.10 and Borderline personality disorder F60.3 [facility] [id number] [place] [address] 33323- 2727 Feb, [facility] [id number] [place] [address] 42513- 9148 05 Feb, 2016 [facility] [address] [place] [address] 28161- 4418 30 Jan, 2016 Obstructive sleep apnea syndrome G47.33 [facility] [address] [place] [address] 59588- 3764 26 Jan, 2016 [facility] [address] [facility] [address] [id number][place] [id number] Jan, Dental examination Z01.20 [facility] [id number] [place] [address] 55464- 4967 Jan, Bipolar 1 disorder F31.9 ; Posttraumatic stress disorder F43.10 and Social anxiety disorder F40.10 [facility] [id number] [place] [address] 47053- 8128 Jan, Bipolar disorder F31.9 ; Posttraumatic stress disorder F43.10 and Borderline personality disorder F60.3 [facility] [id number] [place] [address] 59746- 2371 Jan, Sciatica of left side M54.32 [facility] [id number] [place] [address] 94369- 2752 Jan, [facility] [id number] [place] [address] 26326- 5304 Dec, [facility] [id number] [place] [address] 15788- 3151 Dec, [facility] [id number] [place] [address] 83209- 4906 Dec, Bipolar disorder F31.9 ; Posttraumatic stress disorder F43.10 and Borderline personality disorder F60.3 [facility] [id number] [place] [address] 21261- 5001 Nov, [facility] [id number] [place] [address] 20140- 0032 Nov, Insomnia, unspecified type G47.00 [facility] [id number] [place] [address] 51554- 5568 Nov, Bipolar disorder F31.9 ; Posttraumatic stress disorder F43.10 and Borderline personality disorder F60.3 [facility] [id number] [place] [address] 89312- 9946 Nov, [facility] [id number] [place] [address] 36048- 3832 Nov, [facility] [address] 48714- 0173 Oct, Bipolar disorder F31.9 ; Posttraumatic stress disorder F43.10 and Borderline personality disorder F60.3 [facility] [address] [place] [address] 54453- 7777 Oct, [facility] [id number] [place] [address] 10225- 8212 Oct, Essential (primary) hypertension I10 [facility] [id number] [place] [address] 98560- 7400 September, Bipolar 1 disorder F31.9 ; Posttraumatic stress disorder F43.10 and Social anxiety disorder F40.10 [facility] [id number] [place] [address] 68735- 6824 September, Bipolar disorder F31.9 ; Posttraumatic stress disorder F43.10 and Borderline personality disorder F60.[address] [id number] [id number] September, Encounter for dental examination and cleaning without abnormal findings Z01.20 [facility] [id number] [place] [address] 12706- 6810 September, [facility] [id number] [place] [address] 51345- 0858 September, [facility] [address] [place] [address] 67568- 8848 Aug, [facility] [id number] [place] [address] 16369- 2830 Aug, Bipolar disorder F31.9 ; Posttraumatic stress disorder F43.10 and Borderline personality disorder F60.3 [facility] [id number] [place] [address] 92576- 8566 Aug, [facility] [id number] [place] [address] 49066- 0972 Aug, [facility] [id number] [place] [address] 98231- 9587 Aug, [facility] [address] [id number] [id number] Jul, Acute nasopharyngitis [common cold] J00 and Other viral agents as the cause of diseases classified elsewhere B97.89 [facility] [address] [address]- 1319 24 Jul, 2015 Chronic pain G89.29 and Allergic rhinitis J30.9 [facility] [address] [place] [address] 13065- 1257 24 Jul, 2015 Bipolar 1 disorder F31.9 ; Posttraumatic stress disorder F43.10 and Social anxiety disorder F40.10 [place] [address] [place] [address] 10497- 3923 16 Jul, 2015 Bipolar 1 disorder F31.9 [place] [address] [place] [address] 83510- 4665 16 Jul, 2015 Bipolar disorder F31.9 ; Posttraumatic stress disorder F43.10 and Borderline personality disorder F60.3 [place] [address] [place] [address] 22427- 5585 14 Jul, 2015 [facility] [address] [place] [address] 39707- 1514 14 Jul, 2015 [place] [address] [place] [address] 34120- 0299 11 Jul, 2015 [place] [address] [place] [address] 71081- 8908 10 Jul, 2015 Anxiety F41.9 [place] [address] [place] [address] 00326- 2888 10 Jul, 2015 Chronic pain G89.29 and Encounter for therapeutic drug level monitoring Z51.81 [place] [address] [place] [address] 02283- 9765 09 Jul, 2015 Chronic pain G89.29 and Encounter for therapeutic drug level monitoring Z51.81 [place] [address] [place] [address] 34856- 1379 Jul, [facility] [address] [address]- 5168 Jun, [facility] [address] [place] [address] 54852- 1856 Jun, [facility] [address] [place] [address] 30163- 2697 Jun, [facility] [id number] [place] [address] 44571- 1568 Jun, [facility] [id number] [place] [address] 35958- 4728 Jun, High risk medication use V58.69 [facility] [id number] [place] [address] 55127- 4077 Jun, [facility] [id number] [place] [address] 84094- 0358 Jun, Bipolar 1 disorder F31.9 ; Overdose T50.901A and Chronic pain G89.29 [facility] [id number] [place] [address] 30044- 4219 Jun, Bipolar disorder F31.9 ; Posttraumatic stress disorder F43.10 and Borderline personality disorder F60.3 [facility] [address] [place] [address] 31452- 7507 Jun, [facility] [address] [place] [address] 30934- 4946 Jun, [facility] [address] [place] [address] 47159- 8112 Jun, Keloid L91.0 [facility] [id number] [place] [address] 09290- 1175 Jun, [facility] [id number] [place] [address] 55099- 5667 May, [facility] [address]005[address] [address] 9[address] May, [facility] [id number] [place] [address] 38484- 6917 May, Pelvic pain R10.2 [facility] [address]00565[address] [address] 6375 May, [facility] [id number] [place] [address] 32652- 6790 May, Pain of left thumb M79.645 ; Incisional pain R20.8 ; Pelvic pain R10.2 and Essential hypertension I10 [facility] [address] [place] [address] 20145- 5170 May, [facility] [id number] [place] [address] 06855- 7295 May, [address] [id number] May, Dental examination Z01.20 and Necrosis of pulp K04.1 [facility] [id number] [place] [address] 87076- 5165 Apr, [facility] [address]00565[address] [address] 1199 Apr, [facility] [id number] [place] [address] 72185- 2721 Apr, [facility] [address]005[address] [address]- 5426 Apr, [facility] [id number] [place] [address] 02219- 4956 Apr, [facility] [address]005[address]100[place] [address] 3137 Apr, [facility] [address] [address]- 5264 Apr, [facility] [address]005[address] [address]- 3610 Apr, [facility] [address] 5923 Mar, [facility] [address]00565[address] [address] 1957 Mar, [facility] [address] [place] [address] 234095- 3734 Mar, [facility] [address] 4315 Mar, [facility] [address] [place] [address] 588536- 5091 Feb, [facility] [address]00565100[place] [address]- 6477 Feb, [facility] [id number] [place] [address] 52744- 8383 Feb, [facility] [address]00565100[place] [address]- 5568 Feb, [facility] [address]00565100[place] [address]- 5678 Feb, [facility] [address]00565[address] [address]- 2216 Feb, [facility] [address]00565100[place] [address]- 0912 Feb, [facility] [id number] [address]- 5987 Feb, Dermatofibroma of left lower leg D23.72 [facility] [address]00565[address] [address]- 2652 Feb, Hematochezia 578.1 ; Low back pain M54.5 ; High risk medication use V58.69 ; Cervicalgia M54.2 and Anxiety F41.9 [facility] [address] [id number] [id number] Feb, Dental examination Z01.20 ; Pulpitis K04.0 and Dental caries, unspecified K02.9 [facility] [place] [address] [id number] [place] [id number] Feb, Dental examination Z01.20 [facility] [address] [facility] [id number] [address] 7916 30 Jan, 2015 [facility] [address] [facility] [id number] [address]- 6460 Jan, [facility] [address] [facility] [id number] [address]- 9625 Jan, [facility] [address] [id number] [address]- 7071 Jan, [facility] [address]00565100[place] [address]- 7043 Dec, [facility] [address] [id number] [address]- 2899 Dec, [facility] [address]00565100[place] [address]- 4984 Dec, [facility] [address] [id number] [address]- 5033 Dec, [facility] [address]00565100[place] [address]- 9762 Dec, [facility] [address] [id number] [address]- 7089 Dec, [facility] [address] [id number] [address]- 4296 Dec, [facility] [address] [id number] [address]- 4430 Dec, [facility] [address] [id number] [id number] Nov, Encounter for removal of sutures V58.32 [facility] [address]00565100[place] [address]- 8058 Nov, [facility] [address]00565100[place] [address]- 6064 Nov, [facility] [address]00565100[place] [address]- 2146 Nov, [facility] [id number] [place] [address] 03243- 6203 Nov, [facility] [address]00565100[place] [address]- 2081 Nov, [facility] [address] [place] [address] 10953- 5672 Nov, [facility] [address] [place] [address] 38208- 0493 Nov, [facility] [address] [place] [address] 93712- 6226 Nov, Dermatofibroma 216.9 [facility] [address] [place] [address] 67288- 2518 Nov, [facility] [address]00565100[place] [address]- 1588 Nov, [facility] [address]00565100[place] [address]- 3058 Oct, [facility] [address]00565100[place] [address]- 0937 Oct, Hematochezia 578.1 ; Abscess 682.9 ; GERD (gastroesophageal reflux disease) 530.81 ; Visual disturbance of one eye 368.9 and High risk medication use V58.69 [facility] [address]00565100[place] [address]- 4684 Oct, [facility] [address]00565100[place] [address]- 6676 Oct, [facility] [address] [id number] [place] [address]- 3217 Oct, [facility] [address] [id number] [place] [address] September, [facility] [place] [facility] [address] [id number] [place] [address]50 September, [facility] [address] [id number] [place] [address]- 5186 September, [facility] [address] [id number] [place] 3030 September, [facility] [address] [id number] [place] [address]- 9081 September, [facility] [address] [facility] [id number] [place] 4918 September, Colon cancer screening V76.51 [facility] [address] [id number] [place] [address]- 2643 September, [facility] [address] [id number] [place] [address]- 5161 Aug, [facility] [address] [facility] [id number] [place] [address]- 6368 Aug, [facility] [place] [facility] [address] [id number] [place] [address]- 8579 Jul, [facility] [place] [facility] [address] [id number] [place] [address]- 4788 Jul, [facility] [place] [facility] [address] [id number] [place] 9708 Jul, [facility] [place] [facility] [address] [id number] [place] [address]- 2246 Jul, [facility] [place] [facility] [address] [facility] [id number] [place] 1600 Jun, [facility] [place] [facility] [address] [id number] [place] [address]- 8908 Jun, [facility] [address] [id number] [place] [address]- 7083 Jun, [facility] [place] [facility] [address] [id number] [place] [address]- 1291 Jun, [facility] [address] [id number] [place] [address]- 5389 Jun, [facility] [place] [facility] [address] [id number] [place] [address]- 5186 Jun, [facility] [address] [id number] [place] [address]- 1326 May, [facility] [address] [id number] [place] [address]- 5682 May, [facility] [address] [id number] [place] [address]- 2276 May, [facility] [address] [id number] [place] [address]- 2653 May, [facility] [place] [facility] [address] [facility] [id number] [place] [address]- 2446 May, [facility] [address] [facility] [id number] [place] [address]- 6488 May, [facility] [place] [facility] [address] [id number] [place] [address]- 0941 May, [facility] [place] [facility] [address] [id number] [place] [address]- 9243 May, [facility] [place] [facility] [address] [id number] [place] [address]- 0488 Apr, [facility] [place] [facility] [address] [id number] [place] [address]- 7131 Apr, [facility] [place] [facility] [address] [id number] [place] [address]- 6013 Apr, [facility] [place] [facility] [address] [id number] [place] [address]- 0433 Apr, [facility] [place] [facility] [address] [id number] [place] [address]- 7723 Apr, [facility] [place] [facility] [address] [id number] [place] [address]- 3858 Apr, [facility] [place] [facility] [address] [id number] [place] [address]- 2054 Apr, [facility] [place] [facility] [address] [id number] [place] [address]- 5746 Apr, [facility] [place] [facility] [address] [id number] [place] [address]- 6784 Mar, [facility] [place] [facility] [address] [id number] [place] [address]- 7606 Mar, [facility] [place] [facility] [address] [id number] [place] [address]- 0410 Mar, [facility] [place] [facility] [address] [id number] [place] [address]- 2960 Mar, [facility] [place] [facility] [address] [id number] [place] [address]- 9452 Mar, [facility] [place] [facility] [address] [id number] [place] [address]- 1093 Mar, [facility] [place] [facility] [address] [id number] [address]- 0257 Mar, [facility] [place] [facility] [address] [id number] [place] [address]- 7526 Mar, [facility] [place] [facility] [address] [id number] [place] [address]- 8474 Mar, [facility] [place] [facility] [address] [id number] [address]- 4373 Mar, [facility] [place] [facility] [address] [id number] [address]- 8475 Feb, [facility] [place] [facility] [address] [id number] [place] [address]- 2428 Feb, [facility] [place] [facility] [address] [id number] [place] [address]- 7820 Jan, [facility] [place] [facility] [address] [id number] [place] [address]- 2244 Jan, [facility] [place] [facility] [address] [id number] [place] [address]- 5393 Jan, [facility] [place] [facility] [address] [id number] [place] [address]- 0583 Jan, [facility] [place] [facility] [address] [id number] [place] [address]- 8388 Dec, [facility] [place] [facility] [address] [id number] [place] [address]- 2400 Dec, [facility] [place] [facility] [address] [id number] [place] [address]- 7919 Dec, [facility] [place] [facility] [address] [id number] [place] [address]- 1000 Dec, [facility] [place] [facility] [address] [id number] [place] [address]- 4187 Dec, [facility] [place] [facility] [address] [id number] [place] [address]- 5040 Dec, [facility] [place] [facility] [address] [id number] [place] [address]- 3927 Nov, [facility] [place] [facility] [address] [id number] [place] [address]- 7531 Nov, [facility] [place] [facility] [address] [id number] [place] [address]- 3995 Oct, [facility] [place] [facility] [address] [id number] [place] [address]- 5986 Oct, [facility] [place] [facility] [address] [id number] [place] [address]- 8766 Oct, [facility] [place] [facility] [address] [id number] [place] [address]- 2935 Oct, [facility] [place] [facility] [address] [id number] [place] [address]- 4274 September, [facility] [place] [facility] [address] [id number] [place] [address]- 1405 September, [facility] [place] [facility] [address] [id number] [place] [address]- 2549 September, [facility] [place] [facility] [address] [id number] [place] [address]- 2458 September, [facility] [place] [facility] [address] [id number] [place] [address]- 3060 September, [facility] [place] [facility] [address] [id number] [place] [address]- 5817 September, [facility] [place] [facility] [address] [id number] [place] [address]- 2203 September, [facility] [place] [facility] [address] [id number] [place] [address]- 0984 September, [facility] [place] [facility] [address] [id number] [place] [address]- 5383 Aug, [facility] [place] [facility] [address] [id number] [place] [address]- 8018 Aug, [facility] [place] [facility] [address] [id number] [place] [address]- 0488 Aug, [facility] [place] [facility] [address] [id number] [place] [address]- 0102 Aug, [facility] [place] [facility] [address] [id number] [place] [address]- 8135 Aug, [facility] [place] [facility] [address] [id number] [place] [address]- 5912 Aug, [facility] [place] [facility] [address] [id number] [place] [address]- 7439 Jul, [facility] [place] [facility] [address] [id number] [place] [address]- 0646 Jul, [facility] [place] [facility] [address] [id number] [place] [address]- 3819 Jul, [facility] [place] [facility] [address] [id number] [place] [address]- 0804 Jul, [facility] [place] [facility] [address] [id number] [place] [address]- 7427 Jun, [facility] [place] [facility] [address] [id number] [place] [address]- 9972 Jun, [facility] [place] [facility] [address] [id number] [place] [address]- 9157 Jun, [facility] [place] [facility] [address] [id number] [place] [address]- 1588 Jun, [facility] [place] [facility] [address] [id number] [place] [address]- 2721 Jun, [facility] [place] [facility] [address] [id number] [place] [address]- 5818 Jun, [facility] [place] [facility] [address] [id number] [place] [address]- 9946 May, [facility] [place] [facility] [address] [id number] [place] [address]- 0282 May, [facility] [place] [facility] [address] [id number] [place] [address]- 0861 May, [facility] [place] [facility] [address] [id number] [place] [address]- 6427 May, [facility] [place] [facility] [address] [id number] [place] [address]- 7009 May, [facility] [place] [facility] [address] [id number] [place] [address]- 9052 May, [facility] [address] [id number] [place] [address]- 7158 May, [facility] [address] [id number] [place] [address]- 7605 May, [facility] [address] [id number] [place] [address]- 4979 Apr, [facility] [address] [place] [id number] 16 Apr, 2013 [facility] [address] [id number] [place] [address]- 3751 Apr, [facility] [address] [id number] [place] [address]- 9486 16 Apr, 2013 [facility] [address] [id number] [place] [address]- 3510 Apr, [facility] [address] [id number] [place] [address]- 3690 Apr, [facility] [address] [id number] [place] [address]- 5714 05 Apr, 2013 [facility] [address] [id number] [place] [address]- 9961 05 Apr, 2013 [facility] [address] [id number] [place] [address]- 1127 04 Apr, 2013 [facility] [address] [id number] [place] [address]- 0708 Mar, [facility] [address] [id number] [place] [address]- 2233 Mar, [facility] [address] [id number] [place] [address]- 5078 12 Mar, 2013 [facility] [address] [id number] [place] [address]- 4713 Mar, [facility] [address] [id number] [place] [address]- 0188 Mar, [facility] [place] [facility] [address] [id number] [place] [address]- 3092 Feb, [facility] [place] [facility] [address] [id number] [place] [address]- 0668 Feb, [facility] [place] [facility] [address] [id number] [place] [address]- 8845 Feb, [facility] [place] [facility] [address] [id number] [place] [address]- 1558 Feb, [facility] [place] [facility] [address] [id number] [place] [address]- 6782 Jan, [facility] [place] [facility] [address] [id number] [place] [address]- 0105 Jan, [facility] [place] [facility] [address] [id number] [place] [address]- 1259 Jan, [facility] [place] [facility] [address] [id number] [place] [address]- 6817 Dec, [facility] [place] [facility] [address] [id number] [place] [address] Dec, [facility] [place] [facility] [address] [id number] [place] [address] Dec, [facility] [address] [id number] [id number] Nov, [facility] [address] [id number][place] [id number] Oct, [facility] [place] [facility] [address] [id number] [place] [address] Oct, [facility] [place] [facility] [address] [id number] [place] [address] September, [facility] [place] [facility] [address] [id number] [place] [address] September, [facility] [place] [facility] [address] [id number] [place] [address] September, [facility] [address] [id number] [place] [address] September, [facility] [address] [id number] [place] [address] September, [facility] [address] [id number] [place] [address] Jul, [facility] [address] [id number] [place] [address] Jul, [facility] [address] [id number] [place] [address] Jul, [facility] [address] [id number] [place] [address] Jul, [facility] [address] [id number] [place] [address] Jun, [facility] [address] [id number] [place] [address] Jun, [facility] [address] [id number] [place] [address] Jun, [facility] [address] [id number] [place] [address] Jun, [facility] [address] [id number] [place] [address] May, [facility] [place] [facility] [address] [id number] [place] [address] Mar, [facility] [place] [facility] [address] [id number] [place] [address] Mar, [facility] [place] [facility] [address] [id number] [place] [address] Mar, [facility] [address] [id number] [address] Mar, [facility] [place] [facility] [address] [facility] [id number] [address] Mar, [facility] [place] [facility] [address] [facility] [id number] [address] Mar, [facility] [place] [facility] [address] [facility] [id number] [address] Mar, [facility] [place] [facility] [address] [facility] [id number] [place] [address] Mar, [facility] [place] [facility] [id number] [place] [address] Feb, [facility] [place] [facility] [address] [facility] [id number] [address] Feb, [facility] [place] [facility] [id number] [address] Feb, [facility] [place] [facility] [id number] [address] Feb, [facility] [place] [facility] [id number] [address] Feb, [facility] [place] [facility] [id number] [address] Feb, [facility] [place] [facility] [id number] [address] Feb, [facility] [address] [facility] [id number][place] [id number] Jan, [facility] [address] [id number][place] [id number] Dec, [facility] [address] [facility] [id number][place] [id number] Dec, [facility] [place] [facility] [address] [facility] [id number] [place] [address] Nov, [facility] [place] [facility] [address] [id number] [address] Nov, [facility] [address] [id number] [place] [address] Oct, [facility] [place] [facility] [address] [id number] [place] [address] Jul, [facility] [place] [facility] [address] [id number] [place] [address]256 Jul, [facility] [place] [facility] [address] [id number] [place] [address] 8662 May, [facility] [place] [facility] [address] [id number] [place] [address] 9033 May, [facility] [place] [facility] [address] [id number] [place] [address] 5742 Nov, [facility] [place] [facility] [address] [id number] [place] [address] 4728 Mar, [facility] [place] [facility] [address] [id number] [place] [address] 9379 Dec, [facility] [place] [facility] [address] [id number] [place] [address] 6781 Nov, [facility] [place] [facility] [address] [id number] [place] [address] Aug, [facility] [place] [facility] [address] [id number] [place] [address] Apr, [facility] [place] [facility] [address] [id number] [address] Apr, [facility] [place] [facility] [address] [id number] [place] [address] 9208 Mar, [facility] [place] [facility] [address] [id number] [place] [address]- 6587 Feb, [facility] [place] [facility] [address] [id number] [place] [address]97 September, [facility] [place] [facility] [address] [facility] [id number] [place] [address]- [id number] [address], [facility] [address] [facility] [id number] [place] [address], IMMUNIZATIONS No Known Immunizations SOCIAL HISTORY Never Assessed REASON FOR VISIT Order for [facility] PLAN OF CARE VITAL SIGNS MEDICATIONS Unknown [...] hernia Hospitalization History Went by ambulance to [place] as unresponsive 05/2015 Hospitalization History [facility] sent her to [facility] for a psych hold 05/2015
[2018-03-15 11:03] VITALS: BP 144/83
--- NOTE | 2018-03-15 11:03 | Diagnostic Imaging Report ---
INDICATION: Coronary artery disease and hypertension. TECHNIQUE: A frontal chest was obtained at 1053 hours. COMPARISON: 05/03/2017. FINDINGS: The heart and mediastinal silhouette are normal in appearance. There are calcified nodes in the mediastinum which are unchanged compared to the prior study, compatible with granulomatous disease. There is no focal infiltrate, pneumothorax, or pleural fluid. IMPRESSION: No acute process in the chest. Old granulomatous changes in the mediastinum, similar to 05/03/2017. Dictated by: Dictated on workstation # [id number]
--- OUTSIDE RECORDS SUMMARY | 2018-03-15 11:03 | XMS REPORT ---
Author Author SAMI SUAREZ [facility] Address [address] [place] [address] Care Team Providers Care Cashier Office Name Role Phone SAMI SUAREZ Unavailable PROBLEMS Type Condition ICD9-CM Code [id number] Code Onset Dates Condition Status SNOMED Code Problem Psoriasis L40.9 Active 4204002 Problem Relationship problem with family member Z63.8 Active 680595903 Problem Essential hypertension I10 Active 47296942 Problem Anxiety F41.9 Active 66996899 Problem Visual disturbance H53.9 Active 91155436 Problem Rheumatoid arthritis involving multiple sites with positive rheumatoid factor M05.79 Active 816071661 Problem Bilateral low back pain with sciatica, sciatica laterality unspecified M54.40 Active 511137787 Problem Pelvic pain R10.2 Active 18520127 Problem Other chronic pain G89.29 Active 04128860 Problem Lumbago with sciatica, left side M54.42 Active 574225764 Problem 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 Active 335479236 Problem Blindness of right eye H54.40 Active 867291877 Problem Bipolar disorder F31.9 Active 91524244 Problem Overdose T50.901A Active 39686042 Problem Borderline personality disorder F60.3 Active 73330047 Problem Posttraumatic stress disorder F43.10 Active 80273832 Problem Obstructive sleep apnea G47.33 Active 33326760 Problem Acquired hypothyroidism E03.9 Active 075730976 Problem Chronic pain G89.29 Active 45369317 Problem Gastro-esophageal reflux disease without esophagitis K21.9 Active 384377717 Problem Social anxiety disorder F40.10 Active 90958665 Problem Morbid obesity, unspecified obesity type E66.01 Active [id number] ALLERGIES No Information ENCOUNTERS Encounter Location Date Diagnosis [facility] [address] [facility] [id number] [address] Nov, [facility] [address] [address] 9[address] Nov, [facility] [address] [address] 5914 Nov, [facility] [address] [address] 1277 Nov, [facility] [address] [address] 4[address] Nov, [facility] [address] [place] [address] 10687- 9018 Nov, 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 ; Adverse effect of antineoplastic and immunosuppressive drugs, initial encounter T45.1X5A ; Anemia , unspecified D64.9 and BMI 40.0-44.9, adult Z68.41 [place] [address] [address] Nov, Anemia due to other cause, not classified D64.89 [facility] [address] [address] 02[address] Oct, Adverse effect of drug, initial encounter T50.905A and Acute anemia D64.9 [facility] [address] [address] Oct, Anemia due to other cause, not classified D64.89 ; Dysuria R30.0 and Urinary tract infection without hematuria, site unspecified N39.0 [facility] [address] [address] 1649 Oct, [facility] [address] [address] Oct, [facility] [address] [address] 3002 Oct, 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 [facility] [address] [id number] [id number] Oct, [facility] [address] [id number] [address] 9163 13 Oct, 2017 [facility] [address] [place] [address] 79047- 5856 12 Oct, 2017 [facility] [id number] [place] [address] 12367- 0589 Oct, Bipolar disorder F31.9 ; Posttraumatic stress disorder F43.10 and Borderline personality disorder F60.3 [place] [id number] [place] [address] 59129- 2465 Oct, Rheumatoid arthritis involving multiple sites with positive rheumatoid factor M05.79 ; 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 and Anxiety F41.9 [place] [id number] [place] [address] 97940- 6878 Oct, [place] [id number] [place] [address] 35627- 1775 September, 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 [place] [id number] [place] [address] 97604- 8871 September, Bipolar disorder F31.9 ; Posttraumatic stress disorder F43.10 and Borderline personality disorder F60.3 [place] [id number] [place] [address] 67151- 8351 Aug, BMI 40.0-44.9, adult Z68.41 ; Bipolar disorder F31.9 ; Posttraumatic stress disorder F43.10 and Social anxiety disorder F40.10 [place] [address] [place] [address] 38729- 7148 Aug, Bipolar disorder F31.9 ; Posttraumatic stress disorder F43.10 and Borderline personality disorder F60.3 [place] [id number] [place] [address] 01082- 9680 Aug, 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 [place] [address] [place] [address] 66274- 6260 Jul, Bipolar disorder F31.9 ; Posttraumatic stress disorder F43.10 and Borderline personality disorder F60.3 [facility] [address] [place] [address] 34659- 8302 Jul, [facility] [id number] [place] [address] 81502- 8122 Jun, Bipolar disorder F31.9 ; Posttraumatic stress disorder F43.10 and Borderline personality disorder F60.3 [facility] [id number] [place] [address] 87397- 1940 Jun, Blindness of right eye H54.40 and Acquired hypothyroidism E03.9 [facility] [id number] [place] [address] 83047- 9250 Jun, [facility] [id number] [place] [address] 31645- 3299 May, Posttraumatic stress disorder F43.10 ; Social anxiety disorder F40.10 and Bipolar disorder F31.9 [facility] [address] [place] [address] 68095- 0316 May, Bipolar disorder F31.9 ; Posttraumatic stress disorder F43.10 and Borderline personality disorder F60.3 [facility] [address] [place] [address] 41082- 4514 May, [facility] [address] [place] [address] 70535- 0148 May, [facility] [address] [place] [address] 76205- 3878 Apr, Bipolar disorder F31.9 ; Posttraumatic stress disorder F43.10 and Borderline personality disorder F60.3 [place] [id number] [id number] Apr, [facility] [address] [place] [address] 47036- 0922 Apr, [facility] [address] [place] [address] 11243- 2378 Mar, Hydradenitis L73.2 [facility] [address] [address] 7550 15 Mar, 2017 Lumbago with sciatica, left side M54.42 ; Other chronic pain G89.29 ; Morbid obesity, unspecified obesity type E66.01 ; Hydradenitis L73.2 and BMI 40.0-44.9, adult Z68.41 [facility] [address] [place] [address] 81275- 5304 Mar, Bipolar disorder F31.9 ; Posttraumatic stress disorder F43.10 and Borderline personality disorder F60.3 [place] [id number] [place] [address] 26657- 1411 Mar, Social anxiety disorder F40.10 ; Bipolar disorder F31.9 and Relationship problem with family member Z63.8 [place] [address] [place] [address] 43804- 0330 Mar, [place] [address] [id number] [id number] Mar, Dental examination Z01.20 [place] [id number] [place] [address] 89529- 7543 Mar, [place] [address] [place] [address] 79629- 9668 Feb, Bipolar disorder F31.9 ; Posttraumatic stress disorder F43.10 and Borderline personality disorder F60.3 [facility] [address] [id number] [id number] Feb, [facility] [address] [address]- 9644 14 Jan, 2017 Bipolar disorder F31.9 ; Posttraumatic stress disorder F43.10 and Borderline personality disorder F60.3 [facility] [address] [id number] [id number] Jan, [facility] [address] [place] [address] 57814- 5185 Jan, [facility] [address] [id number] [id number] Jan, [place] [address] [place] [address] 58691- 9520 Dec, Bipolar disorder F31.9 ; Posttraumatic stress disorder F43.10 and Borderline personality disorder F60.3 [place] [address] [address]- 2556 Dec, [place] [address], [place] [address]- 6730 Dec, [facility] [id number] [id number] Dec, [place] [address] [place] [address] 01822- 6195 Nov, Bipolar 1 disorder F31.9 ; Posttraumatic stress disorder F43.10 and Social anxiety disorder F40.10 [place] [address] [place] [address] 65816- 4432 Nov, Bipolar disorder F31.9 ; Posttraumatic stress disorder F43.10 and Borderline personality disorder F60.3 [place] [address] [place] [address] 11569- 6727 Nov, Morbid obesity, unspecified obesity type E66.01 [place] [address], [place] [address]- 6401 Nov, [address] [id number] [place] [id number] Oct, Encounter for dental examination and cleaning without abnormal findings Z01.20 [place] [address] [place] [address] 31958- 6104 Oct, Morbid obesity, unspecified obesity type E66.01 and Acute seasonal allergic rhinitis due to pollen J30.1 [place] [address] [address]- 0911 Oct, Bipolar disorder F31.9 ; Posttraumatic stress disorder F43.10 and Borderline personality disorder F60.3 [facility] [id number] [place] [address] 93977- 0496 September, Morbid obesity, unspecified obesity type E66.01 and Psoriasis L40.9 [facility] [id number] [place] [address] 65188- 9845 September, Bipolar disorder F31.9 ; Posttraumatic stress disorder F43.10 and Borderline personality disorder F60.3 [place] [id number] [place] [address] 97349- 4790 September, Chronic pain G89.29 [place] [address] 61013- 1723 Aug, Other acute nonsuppurative otitis media of right ear H65.191 and Morbid obesity, unspecified obesity type E66.01 [place] [address] 07343- 6284 Aug, Bipolar 1 disorder F31.9 ; Posttraumatic stress disorder F43.10 and Social anxiety disorder F40.10 [place] [id number] [place] [address] 96546- 6404 Aug, Bipolar disorder F31.9 ; Posttraumatic stress disorder F43.10 and Borderline personality disorder F60.3 [place] [id number] [place] [address] 72451- 1031 Jul, Morbid obesity due to excess calories E66.01 ; Gastro- esophageal reflux disease without esophagitis K21.9 and Chronic pain G89.29 [facility] [id number] [place] [address] 80590- 8625 Jul, Morbid obesity due to excess calories E66.01 [place] [address] 46654- 0648 Jul, [place] [id number] [place] [address] 99575- 2006 Jul, [place] [address] [place] [address]- 3631 02 Jul, 2016 Morbid obesity due to excess calories E66.01 [facility] [address] [place] [address] 03377- 2267 Jul, Bipolar disorder F31.9 ; Posttraumatic stress disorder F43.10 and Borderline personality disorder F60.3 [facility] [address] [place] [address] 21666- 4844 16 Jun, 2016 [facility] [id number] [place] [address] 50823- 6028 15 Jun, 2016 Morbid obesity due to excess calories E66.01 [facility] [id number] [place] [address] 91454- 4482 Jun, [facility] [id number] [place] [address] 63661- 0440 09 Jun, 2016 Morbid obesity, unspecified obesity type E66.01 [facility] [id number] [place] [address] 38301- 1843 03 Jun, 2016 Bipolar disorder F31.9 ; Posttraumatic stress disorder F43.10 and Borderline personality disorder F60.3 [facility] [address] [place] [address] 06567- 4134 Jun, [facility] [address], [place] [address]- 4909 Jun, [facility] [address] [place] [address] 83169- 4614 Jun, Acquired hypothyroidism E03.9 and Morbid obesity due to excess calories E66.01 [facility] [id number] [place] [address] 37900- 0480 May, Bipolar disorder F31.9 ; Posttraumatic stress disorder F43.10 and Borderline personality disorder F60.3 [facility] [address] [place] [address] 94963- 2889 Apr, Bipolar 1 disorder F31.9 ; Posttraumatic stress disorder F43.10 and Social anxiety disorder F40.[address] [id number] [place] [id number] 12 Apr, 2016 Encounter for dental examination Z01.20 [facility] [address], [place] [address]- 0844 Apr, [facility] [id number] [place] [address] 375133- 3661 Apr, Acquired hypothyroidism E03.9 [facility] [id number] [place] [address] 995742- 4492 Apr, Acquired hypothyroidism E03.9 [facility] [address] [place] [address] 43758- 3064 Apr, Bipolar disorder F31.9 ; Posttraumatic stress disorder F43.10 and Borderline personality disorder F60.3 [facility] [address] [place] [address] 19854- 6325 Apr, Acquired hypothyroidism E03.[address] [id number] [place] [id number] 23 Mar, 2016 Encounter for dental examination and cleaning without abnormal findings Z01.20 [facility] [address], [place] [address]- 8954 Mar, [facility] [address] [place] [address] 29592- 1320 Mar, Bipolar disorder F31.9 ; Posttraumatic stress disorder F43.10 and Borderline personality disorder F60.3 [facility] [address] [place] [address] 15451- 0635 Mar, Essential (primary) hypertension I10 [facility] [id number] [place] [address] 90289- 8318 Feb, [facility] [id number] [place] [address] 85316- 4791 Feb, [facility] [address] [place] [address]- 1080 Feb, Pelvic pain R10.2 ; Lipid screening Z13.220 ; Fatigue, unspecified type R53.83 and Weight gain R63.5 [facility] [address] [place] [address] 58684- 1189 Feb, Bipolar disorder F31.9 ; Posttraumatic stress disorder F43.10 and Borderline personality disorder F60.3 [place] [id number] [place] [address] 74250- 7579 Feb, [facility] [id number] [place] [address] 64950- 5247 05 Feb, 2016 [place] [id number] [place] [address] 11059- 8452 30 Jan, 2016 Obstructive sleep apnea syndrome G47.33 [place] [id number] [place] [address] 12767- 7794 26 Jan, [address] [id number] [place] [id number] 19 Jan, 2016 Dental examination Z01.20 [place] [id number] [place] [address] 20525- 0321 13 Jan, 2016 Bipolar 1 disorder F31.9 ; Posttraumatic stress disorder F43.10 and Social anxiety disorder F40.10 [place] [address] [place] [address] 90720- 2843 Jan, Bipolar disorder F31.9 ; Posttraumatic stress disorder F43.10 and Borderline personality disorder F60.3 [facility] [address] [place] [address] 73896- 5683 Jan, Sciatica of left side M54.32 [facility] [address] [place] [address] 12184- 3408 06 Jan, 2016 [facility] [address] [place] [address] 24622- 4791 Dec, [place] [id number] [place] [address] 00866- 9662 Dec, [facility] [id number] [place] [address] 92002- 8166 Dec, Bipolar disorder F31.9 ; Posttraumatic stress disorder F43.10 and Borderline personality disorder F60.3 [facility] [id number] [place] [address] 14075- 1310 Nov, [facility] [id number] [place] [address] 46387- 7029 Nov, Insomnia, unspecified type G47.00 [facility] [id number] [place] [address] 60567- 8407 Nov, Bipolar disorder F31.9 ; Posttraumatic stress disorder F43.10 and Borderline personality disorder F60.3 [facility] [id number] [place] [address] 99302- 5757 Nov, [facility] [id number] [place] [address] 89325- 3092 Nov, [facility] [id number] [place] [address] 84454- 9322 Oct, Bipolar disorder F31.9 ; Posttraumatic stress disorder F43.10 and Borderline personality disorder F60.3 [facility] [id number] [place] [address] 14341- 1377 Oct, [facility] [id number] [place] [address] 66816- 5138 Oct, Essential (primary) hypertension I10 [facility] [id number] [place] [address] 74081- 6499 September, Bipolar 1 disorder F31.9 ; Posttraumatic stress disorder F43.10 and Social anxiety disorder F40.10 [facility] [address] [place] [address] 21594- 0557 September, Bipolar disorder F31.9 ; Posttraumatic stress disorder F43.10 and Borderline personality disorder F60.3 [facility] [address] [id number] [place] [id number] September, Encounter for dental examination and cleaning without abnormal findings Z01.20 [facility] [address], [place] [address]- 5939 September, [facility] [id number] [place] [address] 99855- 7654 September, [facility] [id number] [place] [address] 66348- 9027 Aug, [place] [id number] [place] [address] 78728- 1200 Aug, Bipolar disorder F31.9 ; Posttraumatic stress disorder F43.10 and Borderline personality disorder F60.3 [place] [id number] [place] [address] 34154- 2705 Aug, [place] [id number] [place] [address] 00080- 7928 Aug, [facility] [id number] [place] [address] 74080- 3366 Aug, [place] [id number] [place] [address] [id number] Jul, Acute nasopharyngitis [common cold] J00 and Other viral agents as the cause of diseases classified elsewhere B97.89 [facility] [address] [place] [address] 45149- 4078 Jul, Chronic pain G89.29 and Allergic rhinitis J30.9 [facility] [id number] [place] [address] 19976- 8778 Jul, Bipolar 1 disorder F31.9 ; Posttraumatic stress disorder F43.10 and Social anxiety disorder F40.10 [facility] [address] [place] [address] 82330- 3300 Jul, Bipolar 1 disorder F31.9 [facility] [id number] [place] [address] 37967- 9845 16 Jul, 2015 Bipolar disorder F31.9 ; Posttraumatic stress disorder F43.10 and Borderline personality disorder F60.3 [facility] [id number] [place] [address] 12645- 8936 14 Jul, 2015 [facility] [id number] [place] [address] 57078- 4736 14 Jul, 2015 [facility] [id number] [place] [address] 58487- 7996 11 Jul, 2015 [facility] [id number] [place] [address] 26268- 9189 10 Jul, 2015 Anxiety F41.9 [facility] [id number] [place] [address] 01703- 5974 10 Jul, 2015 Chronic pain G89.29 and Encounter for therapeutic drug level monitoring Z51.81 [facility] [id number] [place] [address] 85957- 1329 09 Jul, 2015 Chronic pain G89.29 and Encounter for therapeutic drug level monitoring Z51.81 [facility] [id number] [place] [address] [phone]- [phone] 08 Jul, 2015 [facility] [id number] [place] [address] [id number]- [phone] 19 Jun, 2015 [facility] [id number] [place] [address] 26414- [phone] Jun, [facility] [id number] [place] [address] [id number]- [phone] 15 Jun, 2015 [facility] [id number] [place] [address] 11497- [phone] 15 Jun, 2015 [facility] [id number] [place] [address] 43024- 4997 11 Jun, 2015 High risk medication use V58.69 [facility] [id number] [place] [address] 52083- 5205 Jun, [facility] [id number] [place] [address] 10661- 0451 Jun, Bipolar 1 disorder F31.9 ; Overdose T50.901A and Chronic pain G89.29 [facility] [id number] [place] [address] 69326- 4662 Jun, Bipolar disorder F31.9 ; Posttraumatic stress disorder F43.10 and Borderline personality disorder F60.3 [facility] [id number] [place] [address] [phone]- [phone] Jun, [facility] [address] [phone]- [phone] Jun, [facility] [id number] [place] [address]40- 3907 Jun, Keloid L91.0 [facility] [address] [address]- 3179 Jun, [facility] [id number] [place] [address] 78560- 7683 May, [facility] [id number] [place] [address] 84536- 1619 May, [facility] [id number] [place] [address] 78797- 1882 May, Pelvic pain R10.2 [facility] [id number] [place] [address] 28782- 0601 May, [facility] [id number] [place] [address] 31406- 1502 May, Pain of left thumb M79.645 ; Incisional pain R20.8 ; Pelvic pain R10.2 and Essential hypertension I10 [facility] [id number] [place] [address] 15117- 9780 May, [facility] [id number] [place] [address] 83636- 9816 May, [facility] [place] [id number] [facility] [address] [id number] [id number] May, Dental examination Z01.20 and Necrosis of pulp K04.[address] [facility] [address] [facility] [id number] [place] [address]- 8141 Apr, [facility] [address] [facility] [id number] [address]- 1157 Apr, [facility] [address] [facility] [id number]28[place] 0987 Apr, [facility] [address] [id number] 6395 Apr, [facility] [address] [id number] 0068 Apr, [facility] [address] [id number], [place] [address]- 6545 Apr, [facility] [address] [id number] [address]- 4250 Apr, [facility] [address] [id number], [place] [address]- 5837 Apr, [facility] [address] [id number], [place] [address]- 1622 Mar, [facility] [address] [id number], [place] [address]- 8131 Mar, [facility] [address] [facility] [id number][place] [address]- 4735 Mar, [facility] [address] [id number], [place] [address]- 5874 Mar, [facility] [address] [id number] 0046 Feb, [facility] [address] [id number] [address]- 9865 Feb, [facility] [address]00565100[place], [place] [address]- 7066 Feb, [facility] [id number] [place] [address] 19166- 3736 Feb, [facility] [address]00565100[place], [place] [address]- 4973 Feb, [facility] [id number] [place] [address] 39751- 2934 Feb, [facility] [id number] [place] [address] 67284- 3024 Feb, [facility] [id number] [place] [address] 01141- 0175 Feb, Dermatofibroma of left lower leg D23.72 [facility] [id number] [place] [address] 22407- 4639 Feb, Hematochezia 578.1 ; Low back pain M54.5 ; High risk medication use V58.69 ; Cervicalgia M54.2 and Anxiety F41.[address] [id number] [place] [id number] Feb, Dental examination Z01.20 ; Pulpitis K04.0 and Dental caries, unspecified K02.[address] [id number] [place] [address] Feb, Dental examination Z01.20 [facility] [address]00565100[place], [place] [address]- 7125 30 Jan, 2015 [facility] [id number] [place] [address] 66746- 7652 Jan, [facility] [address]00565100[place], [place] [address]- 7893 Jan, [facility] [address]00565100[place], [place] [address]- 1797 Jan, [facility] [address] [id number] [place] [address]- 1942 Dec, [facility] [address] [id number] [place] [address]- 8425 Dec, [facility] [address] [id number] [place] [address]- 6060 Dec, [facility] [address] [id number] [place] [address]- 4797 Dec, [facility] [address] [id number] [place] [address]- 4454 Dec, [facility] [address] [id number] [place] [address]- 9621 Dec, [facility] [address] [id number] [place] [address]- 7148 Dec, [facility] [address] [id number] [place] [address]- 6871 Dec, [facility] [place] [address] [id number] [id number] Nov, Encounter for removal of sutures V58.32 [facility] [address] [id number] [address]- 5787 Nov, [facility] [address] [id number], [place] [address]- 1717 Nov, [facility] [address] [id number][place] [address]- 3407 Nov, [facility] [place] [facility] [address] [id number], [place] [address]- 2449 Nov, [facility] [address] [id number], [place] [address]- 4576 Nov, [facility] [address] [id number], [place] [address]- 6642 Nov, [facility] [address] [id number] [address]- 8758 Nov, [facility] [address]00565100[place], [place] [address]- 3061 Nov, Dermatofibroma 216.9 [facility] [address]00565100[place], [place] [address]- 9714 Nov, [facility] [address]00565100[place], [place] [address]- 0913 Nov, [facility] [address] [id number] [address]- 3949 Oct, [facility] [id number] [place] [address] 04403- 1478 Oct, Hematochezia 578.1 ; Abscess 682.9 ; GERD (gastroesophageal reflux disease) 530.81 ; Visual disturbance of one eye 368.9 and High risk medication use V58.69 [facility] [address] [id number] [address]- 2214 Oct, [facility] [address]00565100[place], [place] [address]- 7573 Oct, [facility] [address]00565100[place], [place] [address]- 2689 Oct, [facility] [address]00565100[place], [place] [address]- 0891 September, [facility] [address]00565100[place], [place] [address]- 9300 September, [facility] [address]00565[address], [place] [address]- 2912 September, [facility] [address]00565100[place], [place] [address]- 0218 September, [facility] [address]00565[address], [place] [address]- 2607 September, [facility] [address]00565100[place], [place] [address]- 7106 September, Colon cancer screening V76.51 [facility] [address] [facility] [id number] [place] [address]- 0966 September, [facility] [place] [facility] [address] [facility] [id number] [place] [address]- 0032 Aug, [facility] [place] [facility] [address] [facility] [id number], [place] [address]- 4516 Aug, [facility] [place] [facility] [address] [facility] [id number], [place] [address]- 3947 Jul, [facility] [place] [facility] [address] [facility] [id number], [place] [address]- 2820 Jul, [facility] [place] [facility] [address] [facility] [id number], [place] [address]- 4644 Jul, [facility] [place] [facility] [address] [id number], [place] [address]- 6485 Jul, [facility] [place] [facility] [address] [facility] [id number], [place] [address]- 0435 Jun, [facility] [place] [facility] [address] [id number] [place] [address]- 7319 Jun, [facility] [place] [facility] [address] [facility] [id number][place] [address]- 9943 Jun, [facility] [place] [facility] [address] [id number], [place] [address]- 7291 Jun, [facility] [place] [facility] [address] [facility] [id number][place] [address]- 4176 Jun, [facility] [place] [facility] [address] [facility] [id number] [place] [address]- 7680 Jun, [facility] [place] [facility] [address] [facility] [id number], [place] [address]- 7406 May, [facility] [place] [facility] [address] [id number] 3706 May, [facility] [place] [facility] [address] [id number] [place] [address]- 2024 May, [facility] [place] [facility] [address] [id number] [place] [address]- 4377 May, [facility] [place] [facility] [address] [id number] [place] [address]- 6687 May, [facility] [place] [facility] [address] [id number] [place] [address]- 5464 May, [facility] [place] [facility] [address] [id number] [place] [address]- 1864 May, [facility] [place] [facility] [address] [id number] [place] [address]- 3262 May, [facility] [place] [facility] [address] [id number] [place] [address]- 6500 Apr, [facility] [place] [facility] [address] [id number] [place] [address]- 9785 Apr, [facility] [place] [facility] [address] [id number] [place] [address]- 1128 Apr, [facility] [place] [facility] [address] [id number] [place] [address]- 0683 Apr, [facility] [place] [facility] [address] [id number] [place] [address]- 0193 Apr, [facility] [place] [facility] [address] [id number] [place] [address]- 5336 Apr, [facility] [place] [facility] [address] [id number] [place] [address]- 3028 Apr, [facility] [place] [facility] [address] [id number] [place] 7362 Apr, [facility] [place] [facility] [address] [id number] [place] 9649 Mar, [facility] [place] [facility] [address] [id number], [place] [address]- 9273 Mar, [facility] [place] [facility] [address] [id number] [place] [address]- 0730 Mar, [facility] [place] [facility] [address] [id number] [place] [address]- 0244 Mar, [facility] [place] [facility] [address] [facility] [id number] [place] [address]- 3852 Mar, [facility] [place] [facility] [address] [id number] [place] [address]- 2708 Mar, [facility] [place] [facility] [address] [id number] [place] [address]- 3658 Mar, [facility] [place] [facility] [address] [id number] [place] [address]- 4039 Mar, [facility] [place] [facility] [address] [facility] [id number][place] [address]- 5317 Mar, [facility] [place] [facility] [address] [id number] [place] [address]- 6927 Mar, [facility] [place] [facility] [address] [facility] [id number] [place] [address]- 4564 Feb, [facility] [place] [facility] [address] [facility] [id number], [place] [address]- 4713 Feb, [facility] [place] [facility] [address] [id number], [place] [address]- 9109 Jan, [facility] [place] [facility] [address] [id number], [place] [address]- 8487 Jan, [facility] [place] [facility] [address] [id number] [place] [address]- 6975 Jan, [facility] [place] [facility] [address] [id number], [place] [address]- 8017 Jan, [facility] [place] [facility] [address] [id number], [place] [address]- 2926 Dec, [facility] [place] [facility] [address] [id number] [place] [address]- 0025 Dec, [facility] [place] [facility] [address] [id number] [place] [address]- 7782 Dec, [facility] [place] [facility] [address] [id number] [place] [address]- 6858 Dec, [facility] [place] [facility] [address] [id number] [place] [address]- 8447 Dec, [facility] [place] [facility] [address] [id number] [place] [address]- 8636 Dec, [facility] [place] [facility] [address] [id number] [place] [address]- 1854 Nov, [facility] [place] [facility] [address] [id number] [place] [address]- 4932 Nov, [facility] [place] [facility] [address] [id number] [place] [address]- 4418 Oct, [facility] [place] [facility] [address] [id number] [place] [address]- 2699 Oct, [facility] [place] [facility] [address] [id number] [place] [address]- 9263 Oct, [facility] [place] [facility] [address] [id number] [place] [address]- 3399 Oct, [facility] [place] [facility] [address] [id number] [place] [address]- 8008 September, [facility] [place] [facility] [address] [id number] [place] [address]- 6360 September, [facility] [place] [facility] [address] [id number] [place] [address]- 3995 September, [facility] [place] [facility] [address] [id number] [place] [address]- 4554 September, [facility] [place] [facility] [address] [id number] [place] [address]- 7138 September, [facility] [place] [facility] [address] [id number] [place] [address]- 8118 September, [facility] [place] [facility] [address] [id number] [place] [address]- 3862 September, [facility] [place] [facility] [address] [id number] [place] [address]- 6458 September, [facility] [place] [facility] [address] [id number] [place] [address]- 4784 Aug, [facility] [place] [facility] [address] [id number] [place] [address]- 8507 Aug, [facility] [place] [facility] [address] [id number] [place] [address]- 5496 Aug, [facility] [place] [facility] [address] [id number] [place] [address]- 1385 Aug, [facility] [place] [facility] [address] [id number] [place] [address]- 3885 Aug, [facility] [place] [facility] [address] [id number] [place] [address]- 4463 Aug, [facility] [place] [facility] [address] [id number] [place] [address]- 5429 Jul, [facility] [place] [facility] [address] [id number] [place] [address]- 1533 Jul, [facility] [place] [facility] [address] [id number], [place] [address]- 4610 Jul, [facility] [place] [facility] [address] [id number] [place] [address]- 7351 Jul, [facility] [place] [facility] [address] [id number] [place] [address]- 1880 Jun, [facility] [place] [facility] [address] [id number] [place] [address]- 2503 Jun, [facility] [place] [facility] [address] [id number] [place] [address]- 4832 07 Jun, 2013 [facility] [address] [id number] [place] [address]- 1421 Jun, [facility] [address] [id number] [place] [address]- 4046 Jun, [facility] [address] [id number] [place] [address]- 1876 Jun, [facility] [address] [id number] [place] [address]- 9392 May, [facility] [address] [id number] [place] [address]- 7883 May, [facility] [address] [id number] [place] [address]- 2379 May, [facility] [address] [id number] [place] [address]- 2910 May, [facility] [address] [id number] [place] [address]- 3107 May, [facility] [address] [id number] [place] [address]- 3919 May, [facility] [address] [id number] [place] [address]- 0421 May, [facility] [address] [id number] [place] [address]- 8379 May, [facility] [address] [id number] [place] [address]- 2987 Apr, [facility] [address] [place] [id number] Apr, [facility] [address] [id number] [place] [address]- 5216 Apr, [facility] [address] [id number] [place] [address]- 6620 Apr, [facility] [address] [id number] [place] [address]- 9965 Apr, [facility] [place] [facility] [address] [id number] [place] [address]- 9343 Apr, [facility] [place] [facility] [address] [id number] [place] [address]- 7447 05 Apr, 2013 [facility] [place] [facility] [address] [id number] [place] [address]- 4916 05 Apr, 2013 [facility] [place] [facility] [address] [id number] [place] [address]- 9539 Apr, [facility] [place] [facility] [address] [id number] [place] [address]- 6897 Mar, [facility] [place] [facility] [address] [id number] [place] [address]- 7852 Mar, [facility] [place] [facility] [address] [id number] [place] [address]- 1054 Mar, [facility] [place] [facility] [address] [id number] [place] [address]- 7589 Mar, [facility] [place] [facility] [address] [id number] [place] [address]- 8246 Mar, [facility] [place] [facility] [address] [id number] [place] [address]- 2649 Feb, [facility] [place] [facility] [address] [id number] [place] [address]- 9854 Feb, [facility] [place] [facility] [address] [id number] [place] [address]- 8323 Feb, [facility] [place] [facility] [address] [id number] [place] [address]- 2876 14 Feb, 2013 [facility] [place] [facility] [address] [id number] [place] [address]- 0794 25 Jan, 2013 [facility] [place] [facility] [address] [id number], [place] [address]- 2326 Jan, [facility] [address] [id number] [place] [address]- 2546 Jan, [facility] [address] [id number] [place] [address]- 2546 Dec, [facility] [address] [id number] [place] [address]- 2546 Dec, [facility] [address] [id number], [place] [address]- 2546 Dec, [facility] [address] [id number] [place] [id number] Nov, [facility] [address] [id number] [place] [id number] Oct, [facility] [address] [id number], [place] [address]- 2546 Oct, [facility] [address] [id number], [place] [address]- 4786 September, [facility] [address] [id number], [place] [address]- 2546 September, [facility] [address] [id number], [place] [address]- 5726 September, [facility] [address] [id number], [place] [address] September, [facility] [place] [facility] [address] [id number], [place] [address] September, [facility] [place] [facility] [address] [id number], [place] [address] Jul, [facility] [place] [facility] [address] [id number] [place] [address] Jul, [facility] [place] [facility] [address] [id number] [place] [address] Jul, [facility] [place] [facility] [address] [id number], [place] [address] Jul, [facility] [address] [id number] [place] [address] Jun, [facility] [place] [facility] [address] [id number][place] [address] Jun, [facility] [place] [facility] [address] [facility] [id number] [place] [address] Jun, [facility] [place] [facility] [address] [id number] [place] [address] Jun, [facility] [address] [id number] [place] [address] May, [facility] [place] [facility] [address] [id number] [place] [address] Mar, [facility] [address] [facility] [id number] [place] [address] Mar, [facility] [place] [facility] [address] [id number], [place] [address] Mar, [facility] [place] [facility] [address] [facility] [id number] [place] [address] Mar, [facility] [place] [facility] [address] [facility] [id number] [place] [address] Mar, [facility] [place] [facility] [address] [facility] [id number] [place] [address] Mar, [facility] [place] [facility] [address] [id number], [place] [address] Mar, [facility] [place] [facility] [address] [id number], [place] [address] Mar, [facility] [place] [facility] [address] [facility] [id number], [place] [address] Feb, [facility] [place] [facility] [address] [facility] [id number], [place] [address] Feb, [facility] [place] [facility] [address] [id number] [place] [address] Feb, [facility] [place] [facility] [address] [id number] [place] [address] Feb, [facility] [place] [facility] [address] [facility] [id number] [place] [address] Feb, [facility] [place] [facility] [address] [facility] [id number] [place] [address] Feb, [facility] [place] [facility] [address] [id number] [place] [address] Feb, [facility] [address] [id number] [place] [id number] Jan, [facility] [address] [facility] [id number] [place] [id number] Dec, [facility] [address] [id number] [id number] Dec, [facility] [place] [facility] [address] [facility] [id number] [place] [address] Nov, [facility] [place] [facility] [address] [facility] [id number] [place] [address] Nov, [facility] [place] [facility] [address] [facility] [id number] [place] [address] Oct, [facility] [place] [facility] [address] [facility] [id number] [place] [address] Jul, [facility] [place] [facility] [address] [facility] [id number] [place] [address] Jul, [facility] [place] [facility] [address] [id number] [place] [address] May, [facility] [place] [facility] [address] [facility] [id number] [place] [address] May, [facility] [place] [facility] [address] [facility] [id number] [place] [address] Nov, [facility] [place] [facility] [id number], [place] [address] 30 Mar, 2010 [facility] [id number], [place] [address] Dec, [facility] [id number], [place] [address] Nov, [facility] [id number], [place] [address] Aug, [facility] [id number], [place] [address] Apr, [facility] [id number], [place] [address] Apr, [facility] [id number], [place] [address] Mar, [facility] [id number], [place] [address] Feb, [facility] [id number], [place] [address] September, [facility] [id number], [place] [address] Jun, [facility] [address] [id number], [place] [address] Mar, IMMUNIZATIONS No Known Immunizations SOCIAL HISTORY Never Assessed REASON FOR VISIT f/u PLAN OF CARE Activity Details Follow Up 4 Weeks Reason: F/U VITAL SIGNS MEDICATIONS Unknown Medications RESULTS No Results PROCEDURES Procedure Date Ordered Result Body Site Psychotherapy, patient &/family, 45 minutes, established patient August 01, 2017 INSTRUCTIONS MEDICATIONS ADMINISTERED No Known Medications [...] hernia Hospitalization History Went by ambulance to [place] as unresponsive 05/2015 Hospitalization History [place] sent her to [facility] for a psych hold 05/2015
--- OUTSIDE RECORDS SUMMARY | 2018-03-15 11:04 | XMS REPORT ---
Author Author CARYL FRANZ [facility] Address [address] [place] [address] Care Team Providers Care Beekeeper Name Role Phone OSEI CARYL Unavailable PROBLEMS Type Condition ICD9-CM Code [id number] Code Onset Dates Condition Status SNOMED Code Problem Psoriasis L40.9 Active 8278551 Problem Relationship problem with family member Z63.8 Active 660879474 Problem Essential hypertension I10 Active 71491998 Problem Anxiety F41.9 Active 67694682 Problem Visual disturbance H53.9 Active 33086986 Problem Rheumatoid arthritis involving multiple sites with positive rheumatoid factor M05.79 Active 187386316 Problem Bilateral low back pain with sciatica, sciatica laterality unspecified M54.40 Active 986479510 Problem Pelvic pain R10.2 Active 81871730 Problem Other chronic pain G89.29 Active 13811190 Problem Lumbago with sciatica, left side M54.42 Active 514704130 Problem 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 Active 456199117 Problem Blindness of right eye H54.40 Active 610513430 Problem Bipolar disorder F31.9 Active 81187988 Problem Overdose T50.901A Active 81313814 Problem Borderline personality disorder F60.3 Active 16467800 Problem Posttraumatic stress disorder F43.10 Active 68353280 Problem Obstructive sleep apnea G47.33 Active 59362346 Problem Acquired hypothyroidism E03.9 Active 224199202 Problem Chronic pain G89.29 Active 10601863 Problem Gastro-esophageal reflux disease without esophagitis K21.9 Active 965838357 Problem Social anxiety disorder F40.10 Active 37421953 Problem Morbid obesity, unspecified obesity type E66.01 Active 194601227 ALLERGIES No Information ENCOUNTERS Encounter Location Date Diagnosis [facility] [address] [facility] [id number] [id number] Nov, [facility] [id number], [place] [address] Nov, [facility] [address], [place] [address] Nov, [facility] [address], [place] [address] Nov, [facility] [address], [place] [address] Nov, 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 ; Adverse effect of antineoplastic and immunosuppressive drugs, initial encounter T45.1X5A ; Anemia , unspecified D64.9 and BMI 40.0-44.9, adult Z68.41 [facility] [address] [place] [address] 86154- 9547 Nov, Anemia due to other cause, not classified D64.89 [facility] [address] [place] [address] 46552- 2351 Oct, Adverse effect of drug, initial encounter T50.905A and Acute anemia D64.9 [facility] [address], [place] [address] Oct, Anemia due to other cause, not classified D64.89 ; Dysuria R30.0 and Urinary tract infection without hematuria, site unspecified N39.0 [facility] [id number], [place] [address] Oct, [facility] [address] [place] [address] 86913- 5850 Oct, [facility] [id number], [place] [address] Oct, 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 [id number] [id number] Oct, [facility] [id number], [place] [address] 0414 Oct, [facility] [id number] [place] [address] 93180- 7185 Oct, [facility] [id number] [place] [address] 91002- 7631 Oct, Bipolar disorder F31.9 ; Posttraumatic stress disorder F43.10 and Borderline personality disorder F60.3 [facility] [id number] [place] [address] 65918- 5942 Oct, Rheumatoid arthritis involving multiple sites with positive rheumatoid factor M05.79 ; 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 and Anxiety F41.9 [place] [id number] [place] [address] 44315- 7158 Oct, [place] [id number] [place] [address] 76169- 7241 September, 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 [place] [id number] [place] [address] 18968- 5155 September, Bipolar disorder F31.9 ; Posttraumatic stress disorder F43.10 and Borderline personality disorder F60.3 [place] [id number] [place] [address] 30670- 3228 Aug, BMI 40.0-44.9, adult Z68.41 ; Bipolar disorder F31.9 ; Posttraumatic stress disorder F43.10 and Social anxiety disorder F40.10 [place] [id number] [place] [address] 19904- 1131 Aug, Bipolar disorder F31.9 ; Posttraumatic stress disorder F43.10 and Borderline personality disorder F60.3 [place] [address] [place] [address] 32488- 3651 Aug, 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 [facility] [id number] [place] [address] 93865- 4376 Jul, Bipolar disorder F31.9 ; Posttraumatic stress disorder F43.10 and Borderline personality disorder F60.3 [facility] [id number] [place] [address] 75498- 2989 Jul, [facility] [address] [place] [address] 03071- 9661 Jun, Bipolar disorder F31.9 ; Posttraumatic stress disorder F43.10 and Borderline personality disorder F60.3 [facility] [address] [place] [address] 97656- 7046 Jun, Blindness of right eye H54.40 and Acquired hypothyroidism E03.9 [facility] [id number] [place] [address] 29156- 6957 Jun, [facility] [id number] [place] [address] 97832- 5283 May, Posttraumatic stress disorder F43.10 ; Social anxiety disorder F40.10 and Bipolar disorder F31.9 [facility] [id number] [place] [address] 04960- 5032 May, Bipolar disorder F31.9 ; Posttraumatic stress disorder F43.10 and Borderline personality disorder F60.3 [facility] [id number] [place] [address] 72602- 5372 May, [facility] [id number] [place] [address] 01878- 0445 May, [facility] [id number] [place] [address] 56415- 6920 Apr, Bipolar disorder F31.9 ; Posttraumatic stress disorder F43.10 and Borderline personality disorder F60.3 [address] [id number] Apr, [facility] [id number] [place] [address] 56650- 6001 Apr, [facility] [id number] [place] [address] 11299- 6572 Mar, Hydradenitis L73.2 [facility] [id number] [place] [address] 90000- 8625 Mar, Lumbago with sciatica, left side M54.42 ; Other chronic pain G89.29 ; Morbid obesity, unspecified obesity type E66.01 ; Hydradenitis L73.2 and BMI 40.0-44.9, adult Z68.41 [facility] [id number] [place] [address] 80612- 1219 Mar, Bipolar disorder F31.9 ; Posttraumatic stress disorder F43.10 and Borderline personality disorder F60.3 [place] [id number] [place] [address] 02893- 7170 Mar, Social anxiety disorder F40.10 ; Bipolar disorder F31.9 and Relationship problem with family member Z63.8 [address] [id number] [place] [address] 72403- 4359 Mar, [id number] [place] [address] [id number] Mar, Dental examination Z01.20 [place] [id number] [place] [address] 62080- 5262 Mar, [place] [id number] [place] [address] 60848- 3259 Feb, Bipolar disorder F31.9 ; Posttraumatic stress disorder F43.10 and Borderline personality disorder F60.3 [facility] [address] [id number] Feb, [place] [id number] [place] [address] 61801- 6809 14 Jan, 2017 Bipolar disorder F31.9 ; Posttraumatic stress disorder F43.10 and Borderline personality disorder F60.3 [facility] [id number] [place] [address] [id number] Jan, [place] [id number] [place] [address] 19007- 5410 Jan, [facility] [address] [place] [address] [id number] Jan, [place] [address], [place] [address]- 3875 Dec, Bipolar disorder F31.9 ; Posttraumatic stress disorder F43.10 and Borderline personality disorder F60.3 [place] [address], [place] [address]- 5134 Dec, [place] [address], [place] [address]- 2396 Dec, [address] [id number] Dec, [place] [address] [place] [address] 32753- 8923 Nov, Bipolar 1 disorder F31.9 ; Posttraumatic stress disorder F43.10 and Social anxiety disorder F40.10 [address] [place] [address] 77577- 6192 Nov, Bipolar disorder F31.9 ; Posttraumatic stress disorder F43.10 and Borderline personality disorder F60.3 [place] [address], [place] [address]- 5724 Nov, Morbid obesity, unspecified obesity type E66.01 [address], [place] [address]- 9985 Nov, [address] [id number] [id number] Oct, Encounter for dental examination and cleaning without abnormal findings Z01.20 [place] [address], [place] [address]- 9441 Oct, Morbid obesity, unspecified obesity type E66.01 and Acute seasonal allergic rhinitis due to pollen J30.1 [place] [address] [place] [address] 65053- 8750 Oct, Bipolar disorder F31.9 ; Posttraumatic stress disorder F43.10 and Borderline personality disorder F60.3 [place] [address] [place] [address] 66482- 8160 September, Morbid obesity, unspecified obesity type E66.01 and Psoriasis L40.9 [place] [address] 44474- 6890 September, Bipolar disorder F31.9 ; Posttraumatic stress disorder F43.10 and Borderline personality disorder F60.3 [place] [id number] [place] [address] 31383- 3248 September, Chronic pain G89.29 [place] [address] 17215- 1971 Aug, Other acute nonsuppurative otitis media of right ear H65.191 and Morbid obesity, unspecified obesity type E66.01 [place] [id number] [place] [address] 10072- 9351 Aug, Bipolar 1 disorder F31.9 ; Posttraumatic stress disorder F43.10 and Social anxiety disorder F40.10 [place] [id number] [place] [address] 42908- 2349 Aug, Bipolar disorder F31.9 ; Posttraumatic stress disorder F43.10 and Borderline personality disorder F60.3 [place] [id number] [place] [address] 62484- 9564 Jul, Morbid obesity due to excess calories E66.01 ; Gastro- esophageal reflux disease without esophagitis K21.9 and Chronic pain G89.29 [place] [id number] [place] [address] 24291- 0673 Jul, Morbid obesity due to excess calories E66.01 [place] [id number] [place] [address] 71914- 2150 Jul, [place] [address] 28951- 2998 Jul, [place] [id number] [place] [address] 57695- 7332 Jul, Morbid obesity due to excess calories E66.01 [place] [address], [place] [address]- 2382 Jul, Bipolar disorder F31.9 ; Posttraumatic stress disorder F43.10 and Borderline personality disorder F60.3 [facility] [address], [place] [address]- 8043 16 Jun, 2016 [facility] [id number] [place] [address] 62093- 8371 15 Jun, 2016 Morbid obesity due to excess calories E66.01 [facility] [address] [place] [address] 95799- 5022 Jun, [facility] [id number] [place] [address] 36100- 9869 09 Jun, 2016 Morbid obesity, unspecified obesity type E66.01 [facility] [id number] [place] [address] 49706- 2546 03 Jun, 2016 Bipolar disorder F31.9 ; Posttraumatic stress disorder F43.10 and Borderline personality disorder F60.3 [facility] [address] [place] [address] 29742- 0920 Jun, [facility] [address] [place] [address] 12667- 4774 03 Jun, 2016 [facility] [address] [place] [address] 90693- 7961 02 Jun, 2016 Acquired hypothyroidism E03.9 and Morbid obesity due to excess calories E66.01 [facility] [address], [place] [address]- 5075 May, Bipolar disorder F31.9 ; Posttraumatic stress disorder F43.10 and Borderline personality disorder F60.3 [facility] [address], [place] [address]- 5070 Apr, Bipolar 1 disorder F31.9 ; Posttraumatic stress disorder F43.10 and Social anxiety disorder F40.[address] [id number] [id number] 12 Apr, 2016 Encounter for dental examination Z01.20 [facility] [address] [place] [address] 48605- 7975 08 Apr, 2016 [facility] [address] [place] [address] 78642- 1246 08 Apr, 2016 Acquired hypothyroidism E03.9 [facility] [address] [place] [address] 280800- 4373 Apr, Acquired hypothyroidism E03.9 [facility] [address] [place] [address] 954340- 2440 Apr, Bipolar disorder F31.9 ; Posttraumatic stress disorder F43.10 and Borderline personality disorder F60.3 [facility] [address] [place] [address] 31421- 9468 Apr, Acquired hypothyroidism E03.[address] [id number] [id number] 23 Mar, 2016 Encounter for dental examination and cleaning without abnormal findings Z01.20 [facility] [address] [place] [address] 23865- 7607 08 Mar, 2016 [facility] [address] [place] [address] 11445- 3060 Mar, Bipolar disorder F31.9 ; Posttraumatic stress disorder F43.10 and Borderline personality disorder F60.3 [facility] [address] [place] [address] 89814- 7554 Mar, Essential (primary) hypertension I10 [facility] [address] [place] [address] 23175- 2958 Feb, [facility] [id number] [place] [address] 90738- 7436 14 Feb, 2016 [facility] [address] [place] [address] 79851- 3678 Feb, Pelvic pain R10.2 ; Lipid screening Z13.220 ; Fatigue, unspecified type R53.83 and Weight gain R63.5 [facility] [address] [place] [address] 42168- 5880 Feb, Bipolar disorder F31.9 ; Posttraumatic stress disorder F43.10 and Borderline personality disorder F60.3 [facility] [address] [place] [address] 25406- 8332 Feb, [facility] [id number] [place] [address] 00064- 0456 Feb, [facility] [id number] [place] [address] 28023- 9137 30 Jan, 2016 Obstructive sleep apnea syndrome G47.33 [facility] [id number] [place] [address] 56538- 4880 26 Jan, [address] [facility]Formerly [id number] [id number] 19 Jan, 2016 Dental examination Z01.20 [facility] [id number] [place] [address] 65555- 8820 13 Jan, 2016 Bipolar 1 disorder F31.9 ; Posttraumatic stress disorder F43.10 and Social anxiety disorder F40.10 [facility] [address] [place] [address] 45516- 7264 Jan, Bipolar disorder F31.9 ; Posttraumatic stress disorder F43.10 and Borderline personality disorder F60.3 [facility] [address] [place] [address] 14940- 7797 Jan, Sciatica of left side M54.32 [facility] [id number] [place] [address] 45796- 0113 Jan, [facility] [id number] [place] [address] 81699- 0501 Dec, [facility] [address] [place] [address] 79009- 1645 Dec, [facility] [address], [place] [address]- 9575 Dec, Bipolar disorder F31.9 ; Posttraumatic stress disorder F43.10 and Borderline personality disorder F60.3 [place] [address] [place] [address] 75355- 3026 Nov, [place] [id number] [place] [address] 91598- 7570 Nov, Insomnia, unspecified type G47.00 [place] [id number] [place] [address] 22361- 4767 Nov, Bipolar disorder F31.9 ; Posttraumatic stress disorder F43.10 and Borderline personality disorder F60.3 [place] [address] [place] [address] 75725- 7747 Nov, [place] [id number] [place] [address] 44803- 7346 Nov, [place] [id number] [place] [address] 93055- 1407 Oct, Bipolar disorder F31.9 ; Posttraumatic stress disorder F43.10 and Borderline personality disorder F60.3 [place] [address] [place] [address] 72740- 3791 Oct, [place] [id number] [place] [address] 91578- 7000 Oct, Essential (primary) hypertension I10 [place] [address] [place] [address] 66338- 7970 September, Bipolar 1 disorder F31.9 ; Posttraumatic stress disorder F43.10 and Social anxiety disorder F40.10 [place] [id number] [place] [address] 29067- 9372 September, Bipolar disorder F31.9 ; Posttraumatic stress disorder F43.10 and Borderline personality disorder F60.3 [facility] [address] [id number] [id number] September, Encounter for dental examination and cleaning without abnormal findings Z01.20 [facility] [address], [place] [address]- 6498 September, [facility] [id number] [place] [address] 78025- 0227 September, [facility] [id number] [place] [address] 42167- 0617 Aug, [facility] [id number] [place] [address] 08725- 9101 Aug, Bipolar disorder F31.9 ; Posttraumatic stress disorder F43.10 and Borderline personality disorder F60.3 [place] [id number] [place] [address] 00974- 4547 Aug, [place] [id number] [place] [address] 94295- 6198 Aug, [place] [id number] [place] [address] 03507- 8459 Aug, [facility] [id number] [place] [address] [id number] Jul, Acute nasopharyngitis [common cold] J00 and Other viral agents as the cause of diseases classified elsewhere B97.89 [place] [address] [place] [address] 99561- 7605 Jul, Chronic pain G89.29 and Allergic rhinitis J30.9 [facility] [id number] [place] [address] 38279- 9972 Jul, Bipolar 1 disorder F31.9 ; Posttraumatic stress disorder F43.10 and Social anxiety disorder F40.10 [place] [id number] [place] [address] 72689- 5955 Jul, Bipolar 1 disorder F31.9 [facility] [address] [place] [address] 77313- 7579 Jul, Bipolar disorder F31.9 ; Posttraumatic stress disorder F43.10 and Borderline personality disorder F60.3 [facility] [address], [place] [address]- 6586 14 Jul, 2015 [facility] [address], [place] [address] 2546 14 Jul, 2015 [facility] [address], [place] [address] 2546 11 Jul, 2015 [facility] [id number] [place] [address] 14991 2546 10 Jul, 2015 Anxiety F41.9 [facility] [address] [place] [address] 21880 2546 10 Jul, 2015 Chronic pain G89.29 and Encounter for therapeutic drug level monitoring Z51.81 [facility] [address] [place] [address] 61956 2546 09 Jul, 2015 Chronic pain G89.29 and Encounter for therapeutic drug level monitoring Z51.81 [facility] [address], [place] [address] 2546 08 Jul, 2015 [facility] [address] [place] [address] 52976- 1156 19 Jun, 2015 [facility] [address], [place] [address]- 2546 19 Jun, 2015 [facility] [address], [place] [address] 2546 15 Jun, 2015 [facility] [address], [place] [address] 2546 15 Jun, 2015 [facility] [address], [place] [address]- 0746 11 Jun, 2015 High risk medication use V58.69 [facility] [address], [place] [address] 2546 09 Jun, 2015 [facility] [address] [place] [address] 74241- 0200 Jun, Bipolar 1 disorder F31.9 ; Overdose T50.901A and Chronic pain G89.29 [facility] [id number] [place] [address] 92265- 1806 Jun, Bipolar disorder F31.9 ; Posttraumatic stress disorder F43.10 and Borderline personality disorder F60.3 [facility] [id number] [place] [address] 69092- 0590 Jun, [facility] [id number] [place] [address] 10777- 6285 Jun, [facility] [address] 13543- 8345 Jun, Keloid L91.0 [facility] [id number] [place] [address] 68216- 2790 Jun, [facility] [address] 38215- 3831 May, [facility] [id number] [place] [address] 40086- 3585 May, [facility] [id number] [place] [address] 23843- 6848 May, Pelvic pain R10.2 [facility] [id number] [place] [address] 21738- 9024 May, [facility] [id number] [place] [address] 95075- 0448 May, Pain of left thumb M79.645 ; Incisional pain R20.8 ; Pelvic pain R10.2 and Essential hypertension I10 [facility] [id number] [place] [address] 14344- 8180 May, [facility] [id number] [place] [address] 89617- 4385 May, [address] [id number] [id number] May, Dental examination Z01.20 and Necrosis of pulp K04.1 [facility] [address] [place] [address] 54662- 4830 Apr, 2014 [facility] [address] [address] [id number], [place] [address] Apr, 2014 [facility] [id number] [place] [address] 011108- 2221 Apr, [facility] [id number] [place] [address] 95759- 8855 Apr, [facility] [id number] [place] [address] 310201- 3852 Apr, [facility] [id number] [place] [address] 55051- 2731 Apr, [facility] [id number] [place] [address] 33680- 9409 Apr, [facility] [id number] [place] [address] 20125- 7102 Apr, [facility] [id number] [place] [address] 19539- 4835 Mar, [facility] [address] [id number], [place] [address] 9174 Mar, [facility] [id number] [place] [address] 80796- 7616 Mar, [facility] [address] [id number], [place] [address] 3643 Mar, [facility] [id number] [place] [address] 50066- 5881 Feb, [facility] [id number], [place] [address]- 1584 Feb, [facility] [id number] [place] [address] 36360548- 3530 Feb, [facility] [id number], [place] [address]- 2581 Feb, [facility] [id number], [place] [address]- 2424 Feb, [facility] [id number], [place] [address]- 7037 Feb, [facility] [id number] [place] [address] 60720- 4387 Feb, [facility] [id number] [place] [address] 64161- 9066 Feb, Dermatofibroma of left lower leg D23.72 [facility] [id number], [place] [address] 5852 Feb, Hematochezia 578.1 ; Low back pain M54.5 ; High risk medication use V58.69 ; Cervicalgia M54.2 and Anxiety F41.[address] [id number] [id number] Feb, Dental examination Z01.20 ; Pulpitis K04.0 and Dental caries, unspecified K02.[address] [id number] [id number] Feb, Dental examination Z01.20 [facility] [id number], [place] [address]- 7622 Jan, [facility] [id number], [place] [address]- 6284 Jan, [facility] [id number], [place] [address]- 7738 Jan, [facility] [id number], [place] [address]- 5497 Jan, [facility] [id number], [place] [address]- 4552 Dec, [facility] [address] [id number] [place] [address]- 4682 Dec, [facility] [place] [facility] [address] [id number] [place] [address]- 7515 Dec, [facility] [place] [facility] [address] [id number] [place] [address]- 7533 Dec, [facility] [place] [facility] [address] [id number] [place] [address]- 4147 Dec, [facility] [place] [facility] [address] [id number] [place] [address]- 6087 Dec, [facility] [address] [id number] [place] [address]- 8389 Dec, [facility] [address] [id number], [place] [address]- 1073 Dec, [facility] [place] [address] [facility] [id number] [id number] Nov, Encounter for removal of sutures V58.32 [facility] [place] [facility] [address] [id number] [place] [address]- 9830 Nov, [facility] [address] [id number], [place] [address]- 6733 Nov, [facility] [place] [facility] [address] [id number], [place] [address]- 2816 Nov, [facility] [place] [facility] [address] [id number], [place] [address]- 2445 Nov, [facility] [place] [facility] [address] [id number] [place] [address]- 8232 Nov, [facility] [place] [facility] [address] [id number] [place] [address]- 7575 Nov, [facility] [place] [facility] [address] [id number] 4740 Nov, [facility] [place] [facility] [address] [id number], [place] [address]- 3263 Nov, Dermatofibroma 216.9 [facility] [id number], [place] [address]- 0149 Nov, [facility] [id number], [place] [address]- 0978 Nov, [facility] [id number] [place] [address] 05055- 6287 Oct, [facility] [id number] [place] [address] 87870- 3954 Oct, Hematochezia 578.1 ; Abscess 682.9 ; GERD (gastroesophageal reflux disease) 530.81 ; Visual disturbance of one eye 368.9 and High risk medication use V58.69 [facility] [id number] [place] [address] 86314- 8932 Oct, [facility] [id number] [place] [address] 10974- 5020 Oct, [facility] [id number] [place] [address] 92624- 2652 Oct, [facility] [id number] [place] [address] 38926- 8238 September, [facility] [id number], [place] [address]- 4777 September, [facility] [id number], [place] [address]- 0365 September, [facility] [id number], [place] [address]- 1441 September, [facility] [id number] [place] [address] 14491- 8614 September, [facility] [id number], [place] [address]- 0668 September, Colon cancer screening V76.51 [facility] [id number] [place] [address] 19951- 1952 September, [facility] [place] [facility] [address] [id number] [place] [address]- 0382 14 Aug, 2014 [facility] [place] [facility] [address] [facility] [id number] [place] [address]- 3660 Aug, [facility] [place] [facility] [address] [facility] [id number] [place] [address]- 4063 Jul, [facility] [place] [facility] [address] [facility] [id number] [place] [address]- 1598 Jul, [facility] [place] [facility] [address] [facility] [id number] [place] [address]- 3193 Jul, [facility] [place] [facility] [address] [facility] [id number] [place] [address]- 6240 Jul, [facility] [place] [facility] [address] [id number] [place] [address]- 4540 Jun, [facility] [place] [facility] [address] [facility] [id number] [place] [address]- 9150 Jun, [facility] [place] [facility] [address] [id number] [place] [address]- 7866 Jun, [facility] [place] [facility] [address] [id number] [place] [address]- 2244 Jun, [facility] [place] [facility] [address] [id number] [place] [address]- 2988 Jun, [facility] [place] [facility] [address] [facility] [id number], [place] [address]- 5470 Jun, [facility] [place] [facility] [address] [facility] [id number] [place] [address]- 2423 May, [facility] [place] [facility] [address] [facility] [id number] [place]- 4488 May, [facility] [place] [facility] [address] [facility] [id number] [place] [address]- 9404 May, [facility] [place] [facility] [address] [id number] [place] [address]- 0111 May, [facility] [place] [facility] [address] [id number] [place] [address]- 2947 May, [facility] [place] [facility] [address] [id number] [place] [address]- 9848 May, [facility] [place] [facility] [address] [id number] [place] [address]- 6324 May, [facility] [place] [facility] [address] [id number] [place] [address]- 2440 May, [facility] [place] [facility] [address] [id number] [place] [address]- 1166 Apr, [facility] [place] [facility] [address] [id number] [place] [address]- 1368 Apr, [facility] [place] [facility] [address] [id number] [place] [address]- 7334 Apr, [facility] [place] [facility] [address] [id number] [place] [address]- 6657 Apr, [facility] [place] [facility] [address] [id number] [place] [address]- 5448 Apr, [facility] [place] [facility] [address] [id number] [place] [address]- 0152 Apr, [facility] [place] [facility] [address] [id number] [place] [address]- 5721 Apr, [facility] [place] [facility] [address] [id number] [place] [address]- 9815 Apr, [facility] [place] [facility] [address] [id number] [place] [address]- 6744 Mar, [facility] [place] [facility] [address] [id number] [place] [address]- 2804 Mar, [facility] [place] [facility] [address] [id number], [place] [address]- 2824 Mar, [facility] [place] [facility] [address] [id number] [place] [address]- 3330 Mar, [facility] [place] [facility] [address] [id number] [place] [address]- 2537 Mar, [facility] [place] [facility] [address] [id number] [place] [address]- 3653 Mar, [facility] [place] [facility] [address] [id number] [place] [address]- 2895 Mar, [facility] [place] [facility] [address] [id number] [place] [address]- 0622 Mar, [facility] [place] [facility] [address] [id number] [place] [address]- 3702 Mar, [facility] [place] [facility] [address] [id number] [place] [address]- 8054 Mar, [facility] [place] [facility] [address] [id number] [place] [address]- 3166 Feb, [facility] [place] [facility] [address] [id number] [place] [address]- 0812 Feb, [facility] [place] [facility] [address] [id number] [place] [address]- 2708 Jan, [facility] [place] [facility] [address] [id number] [place] [address]- 1566 Jan, [facility] [place] [facility] [address] [id number] [place] [address]- 4546 Jan, [facility] [place] [facility] [address] [id number] [place] [address]- 5560 Jan, [facility] [place] [facility] [address] [id number] [place] [address]- 5005 Dec, [facility] [place] [facility] [address] [id number] [place] [address]- 4180 Dec, [facility] [place] [facility] [address] [id number] [place] [address]- 2651 Dec, [facility] [place] [facility] [address] [id number] [place] [address]- 7202 Dec, [facility] [place] [facility] [address] [id number] [place] [address]- 1476 Dec, [facility] [place] [facility] [address] [id number] [place] [address]- 8310 Dec, [facility] [place] [facility] [address] [id number] [place] [address]- 0405 Nov, [facility] [place] [facility] [address] [id number] [place] [address]- 7410 Nov, [facility] [place] [facility] [address] [id number] [place] [address]- 4547 Oct, [facility] [place] [facility] [address] [id number] [place] [address]- 7611 Oct, [facility] [place] [facility] [address] [id number] [place] [address]- 3367 Oct, [facility] [place] [facility] [address] [id number] [place] [address]- 5700 Oct, [facility] [place] [facility] [address] [id number] [place] [address]- 6385 September, [facility] [place] [facility] [address] [id number] [place] [address]- 1178 September, [facility] [place] [facility] [address] [id number] [place] [address]- 6233 September, [facility] [place] [facility] [address] [id number] [place] [address]- 3313 September, [facility] [place] [facility] [address] [id number] [place] [address]- 3209 September, [facility] [place] [facility] [address] [id number] [place] [address]- 3525 September, [facility] [place] [facility] [address] [id number] [place] [address]- 4604 September, [facility] [place] [facility] [address] [id number] [place] [address]- 1552 September, [facility] [place] [facility] [address] [id number] [place] [address]- 5097 Aug, [facility] [place] [facility] [address] [id number] [place] [address]- 2947 Aug, [facility] [place] [facility] [address] [id number] [place] [address]- 5474 Aug, [facility] [place] [facility] [address] [id number] [place] [address]- 3919 Aug, [facility] [place] [facility] [address] [id number] [place] [address]- 0119 Aug, [facility] [place] [facility] [address] [id number] [place] [address]- 4795 Aug, [facility] [place] [facility] [address] [id number] [place] [address]- 2106 Jul, [facility] [place] [facility] [address] [id number] [place] [address]- 7912 Jul, [facility] [place] [facility] [address] [id number] [place] [address]- 8756 Jul, [facility] [place] [facility] [address] [id number], [place] [address]- 6316 Jul, [facility] [place] [facility] [address] [id number] [place] [address]- 6781 Jun, [facility] [place] [facility] [address] [id number] [place] [address]- 4634 Jun, [facility] [place] [facility] [address] [id number] [place] [address]- 5720 Jun, [facility] [place] [facility] [address] [id number] [place] [address]- 0168 Jun, [facility] [address] [id number] [place] [address]- 4277 Jun, [facility] [address] [id number] [place] [address]- 5966 Jun, [facility] [address] [id number] [place] [address]- 0617 May, [facility] [address] [id number] [place] [address]- 5381 May, [facility] [address] [id number] [place] [address]- 2573 May, [facility] [address] [id number] [place] [address]- 9118 May, [facility] [address] [id number] [place] [address]- 4828 May, [facility] [address] [id number] [place] [address]- 0841 May, [facility] [address] [id number] [place] [address]- 4320 May, [facility] [address] [id number] [place] [address]- 0470 May, [facility] [address] [id number] [place] [address]- 2968 Apr, [facility] [address] [place] [id number] Apr, [facility] [address] [id number] [place] [address]- 6968 Apr, [facility] [address] [id number] [place] [address]- 9539 16 Apr, 2013 [facility] [address] [id number] [place] [address]- 0170 Apr, [facility] [place] [facility] [address] [id number] [place] [address]- 4908 Apr, [facility] [place] [facility] [address] [id number] [place] [address]- 3054 05 Apr, 2013 [facility] [place] [facility] [address] [id number] [place] 3954 05 Apr, 2013 [facility] [place] [facility] [address] [id number] [place] [address]- 2708 04 Apr, 2013 [facility] [place] [facility] [address] [id number] [place] [address]- 0289 Mar, [facility] [place] [facility] [address] [id number] [place] [address]- 0055 Mar, [facility] [place] [facility] [address] [id number] [place] [address]- 5692 Mar, [facility] [place] [facility] [address] [id number] [place] [address]- 0012 Mar, [facility] [place] [facility] [address] [id number] [place] [address]- 2244 Mar, [facility] [place] [facility] [address] [id number] [place] [address]- 3724 Feb, [facility] [place] [facility] [address] [id number] [place] [address]- 5365 Feb, [facility] [place] [facility] [address] [id number] [place] [address]- 6502 14 Feb, 2013 [facility] [place] [facility] [address] [id number] [place] [address]- 6487 14 Feb, 2013 [facility] [place] [facility] [address] [id number] [place] 4773 25 Jan, 2013 [facility] [place] [facility] [address] [id number] [place] 9915 24 Jan, 2013 [facility] [place] [facility] [address] [id number] [place] [address]- 9294 Jan, [facility] [address] [id number] [place] [address]- 7782 Dec, [facility] [address] [id number] [place] [address]- 2046 Dec, [facility] [address] [facility] [id number] [place] [address]- 2546 Dec, [facility] [address] [id number] [place] [address] Nov, [facility] [address] [facility] [id number] [place] [address] Oct, [facility] [place] [facility] [address] [id number] [place] [address]- 1456 Oct, [facility] [address] [facility] [id number] [place] [address]- 2326 September, [facility] [place] [facility] [address] [id number], [place] [address]- 3346 September, [facility] [place] [facility] [address] [id number] [place] [address]- 5565 September, [facility] [place] [facility] [address] [facility] [id number], [place] [address]- 9476 September, [facility] [place] [facility] [address] [facility] [id number] [place] [address]- 4326 September, [facility] [place] [facility] [address] [id number], [place] [address]- 9766 Jul, [facility] [place] [facility] [address] [id number], [place] [address]- 7440 Jul, [facility] [place] [facility] [address] [id number] [place] [address]- 8926 Jul, [facility] [place] [facility] [address] [id number], [place] [address]- 2546 Jul, [facility] [place] [facility] [address] [id number], [place] [address]- 9599 Jun, [facility] [place] [facility] [address] [id number] [place] [address]- 5535 Jun, [facility] [place] [facility] [address] [id number], [place] [address]- 9000 Jun, [facility] [place] [facility] [address] [facility] [id number] [place] [address]- 3231 Jun, [facility] [place] [facility] [address] [id number] [place] [address]- 3380 May, [facility] [address] [id number] [place] [address]- 1115 Mar, [facility] [place] [facility] [address] [facility] [id number] [place] [address] Mar, [facility] [address] [facility] [id number], [place] [address] Mar, [facility] [place] [facility] [address] [facility] [id number] [place] [address] Mar, [facility] [place] [facility] [address] [facility] [id number], [place] [address] Mar, [facility] [place] [facility] [address] [facility] [id number], [place] [address] Mar, [facility] [place] [facility] [address] [facility] [id number], [place] [address] Mar, [facility] [place] [facility] [address] [facility] [id number], [place] [address] Mar, [facility] [place] [facility] [address] [facility] [id number], [place] [address] Feb, [facility] [place] [facility] [address] [facility] [id number], [place] [address] Feb, [facility] [place] [facility] [address] [facility] [id number], [place] [address] Feb, [facility] [place] [facility] [address] [id number] [place] [address] Feb, [facility] [place] [facility] [address] [id number] [place] [address] Feb, [facility] [place] [facility] [address] [id number] [place] [address] Feb, [facility] [place] [facility] [address] [id number] [place] [address] Feb, [facility] [address] [id number] [place] [id number] Jan, [facility] [address] [facility] [address] [id number] [place] [id number] Dec, [facility] [address] [facility] [id number] [place] [id number] Dec, [facility] [place] [facility] [address] [id number], [place] [address] Nov, [facility] [place] [facility] [address] [id number], [place] [address] Nov, [facility] [place] [facility] [address] [id number] [place] [address] Oct, [facility] [place] [facility] [address] [id number], [place] [address] Jul, [facility] [place] [facility] [address] [id number], [place] [address] Jul, [facility] [place] [facility] [address] [id number], [place] [address] May, [facility] [place] [facility] [address] [id number] [place] [address] May, [facility] [place] [facility] [address] [id number] [place] [address] Nov, [facility] [place] [facility] [address] [id number] [place] [address] Mar, [facility] [place] [facility] [address] [id number], [place] [address] Dec, [facility] [id number], [place] [address] Nov, [facility] [id number], [place] [address] Aug, [facility] [id number], [place] [address] Apr, [facility] [id number], [place] [address] Apr, [facility] [id number], [place] [address] Mar, [facility] [id number], [place] [address] Feb, [facility] [id number], [place] [address] September, [facility] [id number], [place] [address] Jun, [facility] [id number], [place] [address] Mar, IMMUNIZATIONS No Known Immunizations SOCIAL HISTORY Never Assessed REASON FOR VISIT med refill PLAN OF CARE VITAL SIGNS MEDICATIONS Medication Instructions Dosage Frequency Start Date End Date Duration Status Cymbalta 30 MG Orally Once a day with Cymbalta 60mg. Total dose 90mg 1 capsule along with 60mg 30 days Active Cymbalta 60 mg Orally Once a day with Cymbalta 30mg. Total dose is 90mg 1 capsule 30 days Active Doxepin HCl 10 mg Orally Once at bedtime for sleep 1 capsule at bedtime September, 30 days Active Lamotrigine 200 mg Orally Once a day 1 tablet 24h 30 days Active RESULTS No Results PROCEDURES [...] hernia Hospitalization History Went by ambulance to [place] as unresponsive 05/2015 Hospitalization History [place] sent her to [facility] for a psych hold 05/2015
--- OUTSIDE RECORDS SUMMARY | 2018-03-15 11:04 | XMS REPORT ---
Author Author HERBERT MCGOWAN [facility] eClinicalWorks Address Unknown Phone Unavailable Care Team Providers Care Custom Shoe Designer And Maker Name Role Phone HERBERT MCGOWAN CP Unavailable Allergies No Known Allergies Problems Problem Type Condition Code Onset Dates Condition Status Assessment Essential (primary) hypertension I10 Active Problem Dehydration 276.51 Active Problem Hypopotassemia 276.8 Active Problem Bilateral low back pain with sciatica, sciatica laterality unspecified M54.40 Active Problem Urinary tract infection, site not specified 599.0 Active Problem Visual disturbance H53.9 Active Problem Blood in stool 578.1 Active Problem Borderline personality disorder F60.3 Active Problem Bipolar disorder F31.9 Active Problem Posttraumatic stress disorder F43.10 Active Problem Essential (primary) hypertension I10 Active Problem Social anxiety disorder F40.10 Active Problem Irritable bowel syndrome 564.1 Active Problem 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 Active Problem Obstructive sleep apnea G47.33 Active Problem Abdominal pain, generalized 789.07 Active Problem Overdose T50.901A Active Problem Chronic pain G89.29 Active Problem Encounter for dental examination and cleaning without abnormal findings Z01.20 Active Problem Bipolar 1 disorder F31.9 Active Problem Essential hypertension, benign 401.1 Active Problem Cervicalgia 723.1 Active Problem Nausea alone 787.02 Active Problem Esophageal reflux 530.81 Active Problem Other dyspnea and respiratory abnormalities 786.09 Active Problem Pelvic pain R10.2 Active Problem Hypertrophy of breast 611.1 Active Problem Screening mammogram for high-risk patient V76.11 Active Medications Medication Code System Code Instructions Start Date End Date Status Dosage Tizanidine HCl [facility] [address]-40 2 MG Orally 2 times a day Feb 18, 2015 1 tablet as needed Carafate [facility] [address]-59 1 GM Orally 4 times a day 1 tablet on an empty stomach Cymbalta [facility] [address]-85 30 MG Orally Once a day with Cymbalta 60mg. Total dose 90mg 1 capsule along with 60mg Cymbalta [facility] [address]-52 60 mg Orally Once a day with Cymbalta 30mg. Total dose is 90mg 1 capsule Hyzaar [facility] [address]-48 50-12.5 MG Orally Once a day October 04, 2014 1 tablet Results No Known Results Summary Purpose eClinicalWorks Submission
--- OUTSIDE RECORDS SUMMARY | 2018-03-15 11:04 | XMS REPORT ---
Author Author HERBERT MCGOWAN Organization e[employer] Address Unknown Phone Unavailable Care Team Providers Care Policy Change Clerks Supervisor Name Role Phone HERBERT MCGOWAN CP Unavailable Allergies No Known Allergies Problems Problem Type Condition Code Onset Dates Condition Status Problem Dehydration 276.51 Active Problem Pelvic pain R10.2 Active Problem Hypopotassemia 276.8 Active Problem Bilateral low back pain with sciatica, sciatica laterality unspecified M54.40 Active Problem Urinary tract infection, site not specified 599.0 Active Problem Visual disturbance H53.9 Active Problem Posttraumatic stress disorder F43.10 Active Problem Borderline personality disorder F60.3 Active Problem Social anxiety disorder F40.10 Active Problem Encounter for dental examination and cleaning without abnormal findings Z01.20 Active Problem 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 Active Problem Abdominal pain, generalized 789.07 Active Problem Essential (primary) hypertension I10 Active Problem Blood in stool 578.1 Active Problem Chronic pain G89.29 Active Problem Bipolar disorder F31.9 Active Problem Bipolar 1 disorder F31.9 Active Problem Overdose T50.901A Active Problem Esophageal reflux 530.81 Active Problem Essential hypertension, benign 401.1 Active Problem Irritable bowel syndrome 564.1 Active Problem Nausea alone 787.02 Active Problem Screening mammogram for high-risk patient V76.11 Active Problem Other dyspnea and respiratory abnormalities 786.09 Active Problem Cervicalgia 723.1 Active Problem Hypertrophy of breast 611.1 Active Medications Medication Code System Code Instructions Start Date End Date Status Dosage Protonix [facility] [address]-14 20 mg Orally Once a day November 05, 2014 1 tablet Results No Known Results Summary Purpose eClinicalWorks Submission
--- OUTSIDE RECORDS SUMMARY | 2018-03-15 11:04 | XMS REPORT ---
Author Author HERBERT MCGOWAN [facility] eClinicalWorks Address Unknown Phone Unavailable Care Team Providers Care Fisher Trap Name Role Phone HERBERT MCGOWAN CP Unavailable Allergies No Known Allergies Problems Problem Type Condition ICD-9 Code Onset Dates Condition Status Problem Unspecified backache 724.5 Active Problem Irritable bowel syndrome 564.1 Active Problem 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 Active Problem Screening mammogram for high-risk patient V76.11 Active Problem Hypertrophy of breast 611.1 Active Problem Other dyspnea and respiratory abnormalities 786.09 Active Problem Esophageal reflux 530.81 Active Problem Nausea alone 787.02 Active Problem Cervicalgia 723.1 Active Problem Essential hypertension, benign 401.1 Active Problem Hypopotassemia 276.8 Active Problem Urinary tract infection, site not specified 599.0 Active Problem Blood in stool 578.1 Active Problem Dehydration 276.51 Active Problem Abdominal pain, generalized 789.07 Active Medications No Known Medications Results No Known Results Summary Purpose eClinicalWorks Submission
--- OUTSIDE RECORDS SUMMARY | 2018-03-15 11:05 | XMS REPORT ---
Author Author HERBERT MCGOWAN [facility] Address [address] [place] [address] Care Team Providers Care Promotional Marketing Agent Name Role Phone HERBERT MCGOWAN Unavailable PROBLEMS Type Condition ICD9-CM Code [id number] Code Onset Dates Condition Status SNOMED Code Problem Chronic pain G89.29 Active 46060633 Problem Social anxiety disorder F40.10 Active 11373916 Problem Encounter for dental examination and cleaning without abnormal findings Z01.20 Active 720766130 Problem Essential hypertension I10 Active 97079705 Problem Psoriasis L40.9 Active 4872290 Problem Acquired hypothyroidism E03.9 Active 589095243 Problem Obstructive sleep apnea G47.33 Active 06374881 Problem Morbid obesity, unspecified obesity type E66.01 Active 639633631 Problem Gastro-esophageal reflux disease without esophagitis K21.9 Active 879163124 Problem Pelvic pain R10.2 Active 59127882 Problem Bilateral low back pain with sciatica, sciatica laterality unspecified M54.40 Active 967575353 Problem Borderline personality disorder F60.3 Active 38044556 Problem Bipolar disorder F31.9 Active 64863945 Problem Visual disturbance H53.9 Active 52327855 Problem Overdose T50.901A Active 34425874 Problem Posttraumatic stress disorder F43.10 Active 36832394 Problem Bipolar 1 disorder F31.9 Active 538059641 ALLERGIES No Information SOCIAL HISTORY Never Assessed PLAN OF CARE VITAL SIGNS MEDICATIONS Unknown Medications RESULTS No Results PROCEDURES No Known procedures IMMUNIZATIONS No Known Immunizations MEDICAL (GENERAL) HISTORY Type Description Date Medical History hypertension Medical History backache Medical History hematochezia Medical History Eye problems investigating irritation Medical History pinched nerve in back Medical History Obstructive sleep apnea Surgical History tubal ligation Surgical History hysterectomy, total with bilateral salpingo-oophorectomy (BSO ) Surgical History bilat carpal tunnel release Surgical History cyst removal Surgical History cholecystectomy Surgical History lymph node resection Surgical History appendectomy Surgical History section Surgical History tonsillectomy Surgical History hernia Hospitalization History Went by ambulance to [place] as unresponsive 05/2015 Hospitalization History [place] sent her to [facility] for a psych hold 05/2015
--- OUTSIDE RECORDS SUMMARY | 2018-03-15 11:05 | XMS REPORT ---
Author Author HERBERT MCGOWAN [facility] Address [address] [place] [address] Care Team Providers Care Butcher Meat Name Role Phone HERBERT MCGOWAN Unavailable PROBLEMS Type Condition ICD9-CM Code [id number] Code Onset Dates Condition Status SNOMED Code Problem Chronic pain G89.29 Active 82672043 Problem Social anxiety disorder F40.10 Active 33651361 Problem Encounter for dental examination and cleaning without abnormal findings Z01.20 Active 675260139 Problem Essential hypertension I10 Active 21567898 Problem Psoriasis L40.9 Active 3475956 Problem Acquired hypothyroidism E03.9 Active 229432361 Problem Obstructive sleep apnea G47.33 Active 59667476 Problem Morbid obesity, unspecified obesity type E66.01 Active 196455305 Problem Gastro-esophageal reflux disease without esophagitis K21.9 Active 650301830 Problem Pelvic pain R10.2 Active 69085401 Problem Bilateral low back pain with sciatica, sciatica laterality unspecified M54.40 Active 214539924 Problem Borderline personality disorder F60.3 Active 81744161 Problem Bipolar disorder F31.9 Active 34126043 Problem Visual disturbance H53.9 Active 08868857 Problem Overdose T50.901A Active 12563041 Problem Posttraumatic stress disorder F43.10 Active 20610334 Problem Bipolar 1 disorder F31.9 Active 935743753 ALLERGIES Substance Reaction Event Type Date Status Sulfamethoxazole-Trimethoprim Unknown Drug Allergy Jul, Active Iodine Unknown Drug Allergy Jul, Active Codeine Sulfate Unknown Drug Allergy Jul, Active Aspirin Unknown Drug Allergy Jul, Active shell fish Unknown Non Drug Allergy Jul, Active IVP dye Unknown Non Drug Allergy Jul, Active tape Unknown Non Drug Allergy Jul, Active strawberries Unknown Non Drug Allergy Jul, Active tomatoes Unknown Non Drug Allergy Jul, Active SOCIAL HISTORY Never Assessed PLAN OF CARE Activity Details Follow Up 4 Weeks Reason:weight mgmt VITAL SIGNS Height 62 in 2016-07-15 Weight 258.0 lbs 2016-07-15 Temperature 98.5 degrees Fahrenheit 2016-07-15 Heart Rate 96 bpm 2016-07-15 Respiratory Rate 20 2016-07-15 BMI 47.18 kg/m2 2016-07-15 Blood pressure systolic 116 mmHg 2016-07-15 Blood pressure diastolic 78 mmHg 2016-07-15 MEDICATIONS Medication Instructions Dosage Frequency Start Date End Date Duration Status Atorvastatin Calcium 20 MG Orally Once a day 1 tablet 24h Active Cymbalta 60 mg Orally Once a day with Cymbalta 30mg. Total dose is 90mg 1 capsule Active Oxygen 2 L/NC Active Sumatriptan 5 mg by oral route Once a day 1 tablet 24h Active Combivent Respimat 20-100 MCG/ACT Inhalation Four times a day 1 puff 6h Active Tizanidine HCl 2 MG Orally 2 times a day 1 tablet as needed 12h Feb, 90 days Active Doxepin HCl 10 mg Orally Once at bedtime for sleep 1 capsule at bedtime September, Active Dicyclomine HCl 20 mg 1 tablet Four times a day Orally 30 days 90 Active Trulicity 0.75 MG/0.5ML Subcutaneous once weekly 0.5 ml Jun, Jul, 30 day(s) Active Carafate 1 GM Orally 4 times a day 1 tablet on an empty stomach 6h 90 days Active Loratadine 10 mg Orally 2 times a day 1 tablet 12h September, 90 days Active Protonix 20 mg Orally Once a day 1 tablet 24h Oct, 90 days Active Gabapentin 300 MG Orally 3 times a day 1 tablet 8h Active Levothyroxine Sodium 25 MCG 1 tablet on an empty stomach in the morning Once a day Orally 30 day(s) 30 90 Active Losartan Potassium-HCTZ 50-12.5 MG Orally Once a day 1 tablet 24h Active Creon 24181 UNIT Orally 3 times a day 1 capsule before meals 8h Nov, 90 days Active Creon 94357 UNIT 1 capsule before meals 3 times a day Orally 90 days 90 Active Cymbalta 30 MG Orally Once a day with Cymbalta 60mg. Total dose 90mg 1 capsule along with 60mg Active Lamotrigine 150 MG Orally Once a day 1 tablet 24h Active Contrave 8-90 MG Orally Twice a day 1 tab daily at hs for 7 days, 1 tab twice a day for 7 days, 1 tab in AM and 2 tabs hs for 7 day, 2 tab twice daily 12h 02 Jun, 2016 Active RESULTS No Results PROCEDURES No Known [...] hernia Hospitalization History Went by ambulance to [place] as unresponsive 05/2015 Hospitalization History [place] sent her to [facility] for a psych hold 05/2015
--- OUTSIDE RECORDS SUMMARY | 2018-03-15 11:05 | XMS REPORT ---
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 Active 831095339 Problem Pelvic pain R10.2 Active 28907351 Problem Blindness of right eye H54.40 Active 184592376 Problem Relationship problem with family member Z63.8 Active 683540112 Problem Essential hypertension I10 Active 75390811 Problem Other chronic pain G89.29 Active 09902204 Problem Lumbago with sciatica, left side M54.42 Active 699704895 Problem Bipolar disorder F31.9 Active 76933813 Problem Posttraumatic stress disorder F43.10 Active 50710065 Problem Bilateral low back pain with sciatica, sciatica laterality unspecified M54.40 Active 608728294 Problem Visual disturbance H53.9 Active 14833324 Problem Overdose T50.901A Active 20875378 Problem Social anxiety disorder F40.10 Active 35091201 Problem Borderline personality disorder F60.3 Active 71058842 Problem Obstructive sleep apnea G47.33 Active 48241138 Problem Chronic pain G89.29 Active 88096163 Problem Acquired hypothyroidism E03.9 Active [id number] ALLERGIES No Information ENCOUNTERS Encounter Location Date Diagnosis [facility] [address] [address] Oct, [facility] [address], [place] [address] 9[address] Aug, [facility] [id number] [place] [address] 17441- 3737 Aug, [facility] [id number] [place] [address] 29727- 7174 Aug, 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 [facility] [id number] [place] [address] 44105- 8326 Jul, Bipolar disorder F31.9 ; Posttraumatic stress disorder F43.10 and Borderline personality disorder F60.3 [facility] [id number] [place] [address] 74358- 0828 Jul, [place] [address] [address]- 4609 Jun, Bipolar disorder F31.9 ; Posttraumatic stress disorder F43.10 and Borderline personality disorder F60.3 [place] [id number] [place] [address] 70303- 9311 Jun, Blindness of right eye H54.40 and Acquired hypothyroidism E03.9 [facility] [id number] [place] [address] 90831- 0220 Jun, [place] [id number] [place] [address] 46707- 9470 May, Posttraumatic stress disorder F43.10 ; Social anxiety disorder F40.10 and Bipolar disorder F31.9 [place] [id number] [place] [address] 11608- 6523 May, Bipolar disorder F31.9 ; Posttraumatic stress disorder F43.10 and Borderline personality disorder F60.3 [facility] [id number] [place] [address] 08044- 6042 May, [facility] [id number] [place] [address] 93154- 7998 May, [facility] [id number] [place] [address] 24108- 3425 Apr, Bipolar disorder F31.9 ; Posttraumatic stress disorder F43.10 and Borderline personality disorder F60.3 [facility] [address] [id number] [id number] Apr, [facility] [id number] [place] [address] 54862- 5082 Apr, [facility] [address], [place] [address] 5706 Mar, Hydradenitis L73.2 [facility] [address] [place] [address] 05580- 8099 15 Mar, 2017 Lumbago with sciatica, left side M54.42 ; Other chronic pain G89.29 ; Morbid obesity, unspecified obesity type E66.01 ; Hydradenitis L73.2 and BMI 40.0-44.9, adult Z68.41 [facility] [address] [place] [address] 96727- 2326 07 Mar, 2017 Bipolar disorder F31.9 ; Posttraumatic stress disorder F43.10 and Borderline personality disorder F60.3 [facility] [address] [place] [address] 53409- 9430 07 Mar, 2017 Social anxiety disorder F40.10 ; Bipolar disorder F31.9 and Relationship problem with family member Z63.8 [facility] [id number] [place] [address] 31734- 2983 06 Mar, [address] [id number] [id number] 06 Mar, 2017 Dental examination Z01.20 [facility] [address], [place] [address] 1542 Mar, [facility] [id number] [place] [address] 45887- 5024 Feb, Bipolar disorder F31.9 ; Posttraumatic stress disorder F43.10 and Borderline personality disorder F60.3 [facility] [address] [facility] [id number] [id number] Feb, [facility] [address], [place] [address] 1575 14 Jan, 2017 Bipolar disorder F31.9 ; Posttraumatic stress disorder F43.10 and Borderline personality disorder F60.3 [facility] [address] [id number] [id number] Jan, [facility] [address], [place] [address] 2084 Jan, [facility] [address] [place] [id number] Jan, [facility] [id number] [place] [address] 46664- 5871 Dec, Bipolar disorder F31.9 ; Posttraumatic stress disorder F43.10 and Borderline personality disorder F60.3 [facility] [id number] [place] [address] 75828- 2466 Dec, [facility] [id number] [place] [address] 62994- 3028 Dec, [facility] [address] [place] [id number] Dec, [facility] [id number] [place] [address] 92249- 1334 Nov, Bipolar 1 disorder F31.9 ; Posttraumatic stress disorder F43.10 and Social anxiety disorder F40.10 [facility] [address] [place] [address] 58398- 2627 Nov, Bipolar disorder F31.9 ; Posttraumatic stress disorder F43.10 and Borderline personality disorder F60.3 [facility] [address] [place] [address] 01530- 6085 Nov, Morbid obesity, unspecified obesity type E66.01 [facility] [address], [place] [address] 9378 Nov, [facility] [place] [address] [place], [place] [address] [id number] [id number] Oct, Encounter for dental examination and cleaning without abnormal findings Z01.20 [place] [id number] [place] [address] 35841- 8727 15 Oct, 2016 Morbid obesity, unspecified obesity type E66.01 and Acute seasonal allergic rhinitis due to pollen J30.1 [place] [id number] [place] [address] 59587- 2999 08 Oct, 2016 Bipolar disorder F31.9 ; Posttraumatic stress disorder F43.10 and Borderline personality disorder F60.3 [place] [id number] [place] [address] 91116- 1852 September, Morbid obesity, unspecified obesity type E66.01 and Psoriasis L40.9 [place] [address] 97010- 2847 September, Bipolar disorder F31.9 ; Posttraumatic stress disorder F43.10 and Borderline personality disorder F60.3 [place] [address] 30102- 8726 September, Chronic pain G89.29 [place] [id number] [place] [address] 24502- 8467 Aug, Other acute nonsuppurative otitis media of right ear H65.191 and Morbid obesity, unspecified obesity type E66.01 [place] [id number] [place] [address] 39010- 5962 Aug, Bipolar 1 disorder F31.9 ; Posttraumatic stress disorder F43.10 and Social anxiety disorder F40.10 [place] [id number] [place] [address] 48079- 7778 Aug, Bipolar disorder F31.9 ; Posttraumatic stress disorder F43.10 and Borderline personality disorder F60.3 [place] [id number] [place] [address] 03700- 4999 Jul, Morbid obesity due to excess calories E66.01 ; Gastro- esophageal reflux disease without esophagitis K21.9 and Chronic pain G89.29 [place] [address] [place] [address] 0504 15 Jul, 2016 Morbid obesity due to excess calories E66.01 [facility] [id number] [place] [address] 90096- 1182 06 Jul, 2016 [facility] [address] [place] [address] 34244- 8908 Jul, [facility] [id number] [place] [address] 63690- 7687 Jul, Morbid obesity due to excess calories E66.01 [facility] [address] [place] [address] 70243- 9008 Jul, Bipolar disorder F31.9 ; Posttraumatic stress disorder F43.10 and Borderline personality disorder F60.3 [facility] [id number] [place] [address] 40364- 5126 16 Jun, 2016 [facility] [id number] [place] [address] 79605- 5510 Jun, Morbid obesity due to excess calories E66.01 [facility] [address] [place] [address] 10758- 7050 Jun, [facility] [id number] [place] [address] 25355- 7803 Jun, Morbid obesity, unspecified obesity type E66.01 [facility] [address] [place] [address] 91575- 6441 Jun, Bipolar disorder F31.9 ; Posttraumatic stress disorder F43.10 and Borderline personality disorder F60.3 [facility] [address] [place] [address] 13400- 1938 Jun, [facility] [id number] [place] [address] 53931- 3766 Jun, [facility] [id number] [place] [address] 67518- 5466 Jun, Acquired hypothyroidism E03.9 and Morbid obesity due to excess calories E66.01 [facility] [address], [place] [address]- 8598 06 May, 2016 Bipolar disorder F31.9 ; Posttraumatic stress disorder F43.10 and Borderline personality disorder F60.3 [facility] [address], [place] [address]- 8620 13 Apr, 2016 Bipolar 1 disorder F31.9 ; Posttraumatic stress disorder F43.10 and Social anxiety disorder F40.[address] [id number] [id number] 12 Apr, 2016 Encounter for dental examination Z01.20 [facility] [id number] [place] [address] 65642- 1047 08 Apr, 2016 [facility] [id number] [place] [address] 26503- 8512 08 Apr, 2016 Acquired hypothyroidism E03.9 [facility] [id number] [place] [address] 97917- 7956 07 Apr, 2016 Acquired hypothyroidism E03.9 [facility] [id number] [place] [address] 65727- 7666 07 Apr, 2016 Bipolar disorder F31.9 ; Posttraumatic stress disorder F43.10 and Borderline personality disorder F60.3 [facility] [address], [place] [address]- 7363 06 Apr, 2016 Acquired hypothyroidism E03.[address] [id number] [id number] 23 Mar, 2016 Encounter for dental examination and cleaning without abnormal findings Z01.20 [facility] [id number] [place] [address] 70349- 8936 08 Mar, 2016 [facility] [address] [place] [address] 28874- 3459 08 Mar, 2016 Bipolar disorder F31.9 ; Posttraumatic stress disorder F43.10 and Borderline personality disorder F60.3 [facility] [address] [place] [address] 90122- 4218 Mar, Essential (primary) hypertension I10 [facility] [address] 33499- 5701 Feb, [facility] [id number] [place] [address] 07828- 6496 14 Feb, 2016 [place] [address] 51365- 9959 Feb, Pelvic pain R10.2 ; Lipid screening Z13.220 ; Fatigue, unspecified type R53.83 and Weight gain R63.5 [place] [id number] [place] [address] 03244- 3391 11 Feb, 2016 Bipolar disorder F31.9 ; Posttraumatic stress disorder F43.10 and Borderline personality disorder F60.3 [place] [id number] [place] [address] 77696- 8989 07 Feb, 2016 [facility] [id number] [place] [address] 03711- 2615 05 Feb, 2016 [place] [id number] [place] [address] 27853- 0928 30 Jan, 2016 Obstructive sleep apnea syndrome G47.33 [place] [id number] [place] [address] 88968- 8963 26 Jan, [address] [id number] [id number] 19 Jan, 2016 Dental examination Z01.20 [facility] [address] [place] [address] 28189- 6527 13 Jan, 2016 Bipolar 1 disorder F31.9 ; Posttraumatic stress disorder F43.10 and Social anxiety disorder F40.10 [place] [address] [place] [address] 66898- 9114 13 Jan, 2016 Bipolar disorder F31.9 ; Posttraumatic stress disorder F43.10 and Borderline personality disorder F60.3 [place] [address], [place] [address]- 1485 13 Jan, 2016 Sciatica of left side M54.32 [facility] [id number] [place] [address] 71213- 1056 Jan, [facility] [address], [place] [address]- 5086 Dec, [facility] [id number] [place] [address] 29935- 6196 Dec, [facility] [address] [place] [address] 51443- 0629 Dec, Bipolar disorder F31.9 ; Posttraumatic stress disorder F43.10 and Borderline personality disorder F60.3 [facility] [address], [place] [address]- 8792 Nov, [facility] [id number] [place] [address] 24306- 1112 Nov, Insomnia, unspecified type G47.00 [facility] [address], [place] [address]- 9701 Nov, Bipolar disorder F31.9 ; Posttraumatic stress disorder F43.10 and Borderline personality disorder F60.3 [facility] [address], [place] [address]- 1966 Nov, [facility] [id number] [place] [address] 80331- 2476 Nov, [facility] [address], [place] [address]- 4117 Oct, Bipolar disorder F31.9 ; Posttraumatic stress disorder F43.10 and Borderline personality disorder F60.3 [facility] [address], [place] [address]- 2046 Oct, [facility] [address], [place] [address]- 9226 Oct, Essential (primary) hypertension I10 [facility] [address], [place] [address]- 9660 September, Bipolar 1 disorder F31.9 ; Posttraumatic stress disorder F43.10 and Social anxiety disorder F40.10 [facility] [address], [place] [address]- 0311 September, Bipolar disorder F31.9 ; Posttraumatic stress disorder F43.10 and Borderline personality disorder F60.[address] [id number] [id number] September, Encounter for dental examination and cleaning without abnormal findings Z01.20 [facility] [id number] [place] [address] 11865- 2791 September, [facility] [address] [place] [address] 97156- 9779 September, [facility] [id number] [place] [address] 32021- 8057 Aug, [facility] [address] [place] [address] 74407- 9379 Aug, Bipolar disorder F31.9 ; Posttraumatic stress disorder F43.10 and Borderline personality disorder F60.3 [facility] [address], [place] [address]- 5088 Aug, [facility] [address] [place] [address] 22232- 3298 Aug, [facility] [address], [place] [address]- 2908 Aug, [facility] [id number] [place] [id number] Jul, Acute nasopharyngitis [common cold] J00 and Other viral agents as the cause of diseases classified elsewhere B97.89 [facility] [address], [place] [address]- 1593 Jul, Chronic pain G89.29 and Allergic rhinitis J30.9 [place] [address], [place] [address]- 1509 24 Jul, 2015 Bipolar 1 disorder F31.9 ; Posttraumatic stress disorder F43.10 and Social anxiety disorder F40.10 [facility] [address], [place] [address] 2546 16 Jul, 2015 Bipolar 1 disorder F31.9 [facility] [address] [place] [address] 65509 2546 16 Jul, 2015 Bipolar disorder F31.9 ; Posttraumatic stress disorder F43.10 and Borderline personality disorder F60.3 [facility] [address] [place] [address] 28167- 8806 14 Jul, 2015 [facility] [id number] [place] [address] 69924- 8856 14 Jul, 2015 [facility] [id number] [place] [address] 20407- 0237 11 Jul, 2015 [facility] [id number] [place] [address] 98154 254 10 Jul, 2015 Anxiety F41.9 [facility] [id number] [place] [address] 36853 2546 10 Jul, 2015 Chronic pain G89.29 and Encounter for therapeutic drug level monitoring Z51.81 [facility] [address], [place] [address] 2546 09 Jul, 2015 Chronic pain G89.29 and Encounter for therapeutic drug level monitoring Z51.81 [facility] [address], [place] [address] 2546 08 Jul, 2015 [facility] [id number] [place] [address] 82626 2546 19 Jun, 2015 [facility] [address], [place] [address]- 2546 19 Jun, 2015 [facility] [id number] [place] [address] 82321- 5042 15 Jun, 2015 [facility] [id number] [place] [address] 04503- 2150 Jun, [facility] [id number] [place] [address] 01360- 7319 Jun, High risk medication use V58.69 [facility] [id number] [place] [address] 43910- 4365 Jun, [facility] [id number] [place] [address] 07819- 1077 Jun, Bipolar 1 disorder F31.9 ; Overdose T50.901A and Chronic pain G89.29 [facility] [id number] [place] [address] 28604- 4957 Jun, Bipolar disorder F31.9 ; Posttraumatic stress disorder F43.10 and Borderline personality disorder F60.3 [facility] [id number] [place] [address] 98811- 9058 Jun, [facility] [id number] [place] [address] 02392- 1655 Jun, [facility] [id number] [place] [address] 51089- 1235 Jun, Keloid L91.0 [facility] [id number] [place] [address] 03343- 9100 Jun, [facility] [id number] [place] [address] 17755- 2586 May, [facility] [id number] [place] [address] 61849- 4777 May, [facility] [id number] [place] [address] 64699- 2794 May, Pelvic pain R10.2 [facility] [id number] [place] [address] 10303- 8372 May, [facility] [address], [place] [address]- 3923 May, Pain of left thumb M79.645 ; Incisional pain R20.8 ; Pelvic pain R10.2 and Essential hypertension I10 [facility] [address], [place] [address]- 7967 May, [facility] [id number] [place] [address] 89058- 3837 May, [address] [id number] [id number] May, Dental examination Z01.20 and Necrosis of pulp K04.1 [facility] [id number] [place] [address] 61719- 8013 Apr, [facility] [id number] [place] [address] [id number]- [phone] Apr, [facility] [id number] [place] [address] [id number]- 1461 Apr, [facility] [id number] [place] [address] 44241- 2943 Apr, [facility] [id number] [place] [address] [id number]- 9081 Apr, [facility] [id number] [address] Apr, [facility] [id number] [address] Apr, [facility] [id number] [place] [address] [id number]- 0987 Apr, [facility] [id number] [place] [address] [id number]- 3578 Mar, [facility] [id number] [address] Mar, [facility] [id number] [address]062 Mar, [facility] [id number] [address] 49[address] Mar, [facility] [id number] [address] Feb, [facility] [id number] [address] Feb, [facility] [id number] [address] Feb, [facility] [id number] [place] [address] [id number]- 9720 Feb, [facility] [id number] [place] [address] 50944- 9616 Feb, [facility] [id number] [place] [address] [address] Feb, [facility] [id number] [address] Feb, [facility] [id number] [place] [address]- 1129 Feb, Dermatofibroma of left lower leg D23.72 [facility] [id number], [place] [address] Feb, Hematochezia 578.1 ; Low back pain M54.5 ; High risk medication use V58.69 ; Cervicalgia M54.2 and An[address] F41[address] [facility] [place] [address] [id number] [id number] Feb, Dental examination Z01.20 ; Pulpitis K04.0 and Dental caries, unspecified K02.9 [facility] [address] [id number] [id number] Feb, Dental examination Z01.20 [facility] [id number], [place] [address] Jan, [facility] [address] [id number] [place] [address] Jan, [facility] [address] [id number], [place] [address] 6[address] Jan, [facility] [address] [id number] [place] [address] 8415 Jan, [facility] [address] [id number], [place] [address] Dec, [facility] [address] [id number] [place] [address] 8506 Dec, [facility] [address] [id number], [place] [address] Dec, [facility] [address] [id number], [place] [address] 8711 Dec, [facility] [address] [id number], [place] [address] 14[address] Dec, [facility] [address] [id number], [place] [address] 6780 Dec, [facility] [address] [id number], [place] [address] 7[address] Dec, [facility] [address] [id number], [place] [address] Dec, [facility] [place] [id number] [id number] Nov, Encounter for removal of sutures V58.32 [facility] [address] [id number], [place] [address] Nov, [facility] [address] [id number], [place] [address] 2666 Nov, [facility] [address] [id number], [place] [address] 7[address] Nov, [facility] [id number], [place] [address] 4[address] Nov, [facility] [id number], [place] [address] 2628 Nov, [facility] [id number], [place] [address]- 7769 Nov, [facility] [id number], [place] [address] 0942 Nov, [facility] [id number], [place] [address] 9[address] Nov, Dermatofibroma 216.9 [facility] [id number] [place] [address]- 0471 Nov, [facility] [id number], [place] [address] 1201 Nov, [facility] [id number], [place] [address] 7413 Oct, [facility] [address] [id number], [place] [address] 0[address] Oct, Hematochezia 578.1 ; Abscess 682.9 ; GERD (gastroesophageal reflux disease) 530.81 ; Visual disturbance of one eye 368.9 and High risk medication use V58.69 [facility] [address] [id number], [place] [address] 0846 Oct, [facility] [id number], [place] [address] 9879 Oct, [facility] [id number], [place] [address]- 2695 Oct, [facility] [address] [id number], [place] [address] 7650 September, [facility] [address] [id number], [place] [address]- 7135 September, [facility] [address] [id number] [place] [address]- 0435 September, [facility] [address] [id number] [place] [address]- 2712 September, [facility] [place] [facility] [address] [id number] [place] [address]- 7929 September, [facility] [place] [facility] [address] [facility] [id number] [place] [address]- 5400 September, Colon cancer screening V76.51 [facility] [place] [facility] [address] [id number] [place] [address]- 8925 September, [facility] [place] [facility] [address] [facility] [id number] [place] [address]- 1578 Aug, [facility] [place] [facility] [address] [facility] [id number] [place] [address]- 2936 Aug, [facility] [place] [facility] [address] [facility] [id number] [place] [address]- 1005 Jul, [facility] [place] [facility] [address] [facility] [id number] [place] [address]- 7675 Jul, [facility] [place] [facility] [address] [facility] [id number] [place] [address]- 1142 Jul, [facility] [place] [facility] [address] [facility] [id number] [place] [address]- 4932 Jul, [facility] [place] [facility] [address] [facility] [id number], [place] [address]- 8309 Jun, [facility] [place] [facility] [address] [facility] [id number] [place] [address]- 5392 Jun, [facility] [place] [facility] [address] [facility] [id number] [place] [address]- 2818 Jun, [facility] [place] [facility] [address] [facility] [id number] [place] [address]- 6800 Jun, [facility] [place] [facility] [address] [id number], [place] [address]- 7995 Jun, [facility] [address] [id number] [place] [address]- 2315 Jun, [facility] [place] [facility] [address] [id number] [place] [address]- 2707 May, [facility] [place] [facility] [address] [id number] [place] [address]- 3574 May, [facility] [place] [facility] [address] [id number] [place] [address]- 8915 May, [facility] [place] [facility] [address] [id number] [place] [address]- 8536 May, [facility] [place] [facility] [address] [id number] [place] [address]- 1441 May, [facility] [address] [id number] [place] [address]- 9679 May, [facility] [place] [facility] [address] [id number] [place] [address]- 8898 May, [facility] [place] [facility] [address] [id number] [place] [address]- 3683 May, [facility] [place] [facility] [address] [facility] [id number] [place] [address]- 8268 Apr, [facility] [place] [facility] [address] [id number] [place] [address]- 0107 Apr, [facility] [place] [facility] [address] [id number] [place] [address]- 9573 Apr, [facility] [place] [facility] [address] [id number] [place] [address]- 7740 Apr, [facility] [place] [facility] [address] [id number] [place] [address]- 2166 Apr, [facility] [place] [facility] [address] [id number] [place] [address]- 0719 Apr, [facility] [place] [facility] [address] [id number] [place] [address]- 8094 Apr, [facility] [place] [facility] [address] [id number] [place] [address]- 4775 Apr, [facility] [place] [facility] [address] [id number] [place] [address]- 8868 Mar, [facility] [place] [facility] [address] [id number] [place] [address]- 0906 Mar, [facility] [place] [facility] [address] [id number] [place] [address]- 6425 Mar, [facility] [place] [facility] [address] [id number] [place] [address]- 9715 Mar, [facility] [place] [facility] [address] [id number] [place] [address]- 2383 Mar, [facility] [place] [facility] [address] [id number] [place] [address]- 2960 Mar, [facility] [place] [facility] [address] [id number] [place] [address]- 7332 Mar, [facility] [place] [facility] [address] [id number] [place] [address]- 5919 Mar, [facility] [place] [facility] [address] [id number] [place] [address]- 9817 Mar, [facility] [place] [facility] [address] [id number] [place] [address]- 2014 Mar, [facility] [place] [facility] [address] [id number] [place] [address]- 4428 Feb, [facility] [place] [facility] [address] [id number] [place] [address]- 3810 Feb, [facility] [place] [facility] [address] [id number] [place] [address]- 1338 Jan, [facility] [place] [facility] [address] [id number] [place] [address]- 2884 Jan, [facility] [place] [facility] [address] [id number] [place] [address]- 4985 Jan, [facility] [place] [facility] [address] [id number] [place] [address]- 6684 Jan, [facility] [place] [facility] [address] [id number] [place] [address]- 0315 Dec, [facility] [place] [facility] [address] [id number] [place] [address]- 2125 Dec, [facility] [place] [facility] [address] [id number] [place] [address]- 9366 Dec, [facility] [place] [facility] [address] [id number] [place] [address]- 5915 Dec, [facility] [place] [facility] [address] [id number] [place] [address]- 8177 Dec, [facility] [place] [facility] [address] [id number] [place] [address]- 6443 Dec, [facility] [place] [facility] [address] [id number] [place] [address]- 7347 Nov, [facility] [place] [facility] [address] [id number] [place] [address]- 6148 Nov, [facility] [place] [facility] [address] [id number] [place] [address]- 9637 Oct, [facility] [place] [facility] [address] [id number] [place] [address]- 4718 Oct, [facility] [place] [facility] [address] [id number] [place] [address]- 4232 Oct, [facility] [place] [facility] [address] [id number] [place] [address]- 3410 Oct, [facility] [place] [facility] [address] [id number] [place] [address]- 5922 September, [facility] [place] [facility] [address] [id number] [place] [address]- 0683 September, [facility] [address] [id number] [place] [address]- 8089 September, [facility] [place] [facility] [address] [id number] [place] [address]- 6499 September, [facility] [place] [facility] [address] [id number] [place] [address]- 4793 September, [facility] [place] [facility] [address] [id number] [place] [address]- 0732 September, [facility] [place] [facility] [address] [id number] [place] 1224 September, [facility] [place] [facility] [address] [id number] [place] [address]- 6779 September, [facility] [address] [id number] [place] [address]- 8015 Aug, [facility] [place] [facility] [address] [id number] [place] [address]- 0177 Aug, [facility] [place] [facility] [address] [id number] [place] [address]- 9584 Aug, [facility] [place] [facility] [address] [id number] [place] [address]- 9098 Aug, [facility] [place] [facility] [address] [id number] [place] [address]- 8484 Aug, [facility] [place] [facility] [address] [id number] [place] [address]- 1315 Aug, [facility] [place] [facility] [address] [id number] [place] [address]- 1076 Jul, [facility] [place] [facility] [address] [id number] [place] 7784 Jul, [facility] [place] [facility] [address] [id number] [place] [address]- 7778 Jul, [facility] [place] [facility] [address] [id number] [place] [address]- 1830 Jul, [facility] [place] [facility] [address] [id number] [place] [address]- 9846 Jun, [facility] [place] [facility] [address] [id number] [place] [address]- 3316 Jun, [facility] [place] [facility] [address] [id number] [place] [address]- 5526 Jun, [facility] [place] [facility] [address] [id number] [place] [address]- 4767 Jun, [facility] [place] [facility] [address] [id number] [place] [address]- 9116 Jun, [facility] [place] [facility] [address] [id number] [place] [address]- 1183 Jun, [facility] [place] [facility] [address] [id number] [place] [address]- 4835 May, [facility] [place] [facility] [address] [id number] [place] [address]- 2426 May, [facility] [place] [facility] [address] [id number] [place] [address]- 3054 May, [facility] [place] [facility] [address] [id number] [place] [address]- 6034 May, [facility] [place] [facility] [address] [id number] [place] [address]- 7495 May, [facility] [place] [facility] [address] [id number] [place] [address]- 8013 May, [facility] [place] [facility] [address] [id number] [place] [address]- 4531 May, [facility] [place] [facility] [address] [id number] [place] [address]- 8995 May, [facility] [place] [facility] [address] [id number], [place] [address]- 5186 16 Apr, 2013 [facility] [address] [place] [id number] 16 Apr, 2013 [facility] [address] [id number] [place] [address]- 6286 16 Apr, 2013 [facility] [address] [id number] [place] [address]2 Apr, [facility] [address] [id number] [place] [address]- 6336 Apr, [facility] [address] [id number] [place] [address]- 2661 Apr, [facility] [address] [id number] [place] [address]- 7005 Apr, [facility] [address] [id number] [place] [address]- 5785 Apr, [facility] [address] [id number] [place] [address]- 6126 Apr, [facility] [address] [id number], [place] [address]- 1785 Mar, [facility] [address] [id number] [place] [address]- 5523 Mar, [facility] [address] [id number], [place] [address]- 2621 Mar, [facility] [place] [facility] [address] [id number], [place] [address]- 8638 Mar, [facility] [place] [facility] [address] [id number], [place] [address]- 6833 Mar, [facility] [place] [facility] [address] [id number], [place] [address]- 7143 Feb, [facility] [place] [facility] [address] [id number], [place] [address]- 0777 Feb, [facility] [address] [id number] [place] [address]- 2976 14 Feb, 2013 [facility] [address] [id number] [place] [address]- 0442 14 Feb, 2013 [facility] [place] [facility] [address] [id number] [place] [address]- 0651 Jan, [facility] [place] [facility] [address] [id number] [place] [address]- 2890 24 Jan, 2013 [facility] [place] [facility] [address] [id number] [place] [address]- 9705 Jan, [facility] [address] [id number] [place] [address]- 7614 Dec, [facility] [place] [facility] [address] [id number] [place] [address]- 8130 Dec, [facility] [address] [id number] [place] [address]- 3941 Dec, [facility] [address] [id number] [id number] Nov, [facility] [address] [facility] [address] [id number] [id number] Oct, [facility] [address] [id number] [place] [address]- 7625 Oct, [facility] [address] [id number] [place] [address]- 2771 September, [facility] [place] [facility] [address] [id number] [place] [address]- 8955 September, [facility] [place] [facility] [address] [id number] [place] [address]- 8790 September, [facility] [place] [facility] [address] [id number] [place] [address]- 6175 September, [facility] [place] [facility] [address] [id number] [place] [address]- 9746 September, [facility] [place] [facility] [address] [id number] [place] [address]- 8740 Jul, [facility] [address] [id number] [place] [address]- 0199 Jul, [facility] [place] [facility] [address] [id number] [place] [address]- 4786 Jul, [facility] [place] [facility] [address] [id number] [place] [address]- 8127 Jul, [facility] [place] [facility] [address] [id number] [place] [address]- 8014 Jun, [facility] [place] [facility] [address] [id number] [place] [address]- 4456 Jun, [facility] [place] [facility] [address] [id number] [place] [address]- 3653 Jun, [facility] [place] [facility] [address] [id number] [place] [address]- 5255 Jun, [facility] [address] [id number] [place] [address]- 1575 May, [facility] [address] [id number] [place] [address]- 4900 Mar, [facility] [address] [id number] [place] [address]- 4600 Mar, [facility] [place] [facility] [address] [id number] [place] [address]- 7329 Mar, [facility] [place] [facility] [address] [id number] [place] [address]- 2540 Mar, [facility] [place] [facility] [address] [id number] [place] [address]- 6273 Mar, [facility] [place] [facility] [address] [id number] [place] [address]- 2548 Mar, [facility] [place] [facility] [address] [id number] [place] [address]- 2543 Mar, [facility] [place] [facility] [address] [facility] [id number] [place] [address]- 9806 Mar, [facility] [place] [facility] [address] [facility] [id number] [place] [address]- 5806 Feb, [facility] [place] [facility] [address] [facility] [id number] [place] [address]- 5556 Feb, [facility] [place] [facility] [address] [facility] [id number] [place] [address]- 2214 Feb, [facility] [place] [facility] [address] [facility] [id number] [place] [address]- 3835 Feb, [facility] [place] [facility] [address] [facility] [id number] [place] [address]- 6656 Feb, [facility] [place] [facility] [address] [facility] [id number] [place] [address]- 2936 Feb, [facility] [place] [facility] [address] [facility] [id number], [place] [address]- 8216 Feb, [facility] [address] [id number] [place] [id number] Jan, [facility] [address] [facility] [address] [id number] [place] [id number] Dec, [facility] [address] [facility] [id number] [place] [id number] Dec, [facility] [place] [facility] [address] [facility] [id number], [place] [address]- 2546 Nov, [facility] [place] [facility] [address] [facility] [id number], [place] [address]- 2546 Nov, [facility] [address] [facility] [id number], [place] [address] Oct, [facility] [address] [facility] [id number][place] [address] Jul, [facility] [address] [facility] [id number], [place] [address] Jul, [facility] [address] [facility] [id number], [place] [address] May, [facility] [address] [facility] [id number], [place] [address] May, [facility] [address] [facility] [id number], [place] [address] Nov, [facility] [address] [facility] [id number], [place] [address] Mar, [facility] [address] [facility] [id number], [place] [address] Dec, [facility] [address] [facility] [id number], [place] [address] Nov, [facility] [id number] [address] Aug, [facility] [id number], [place] [address] Apr, [facility] [id number], [place] [address] Apr, [facility] [id number], [place] [address] Mar, [facility] [id number], [place] [address] Feb, [facility] [address] [id number], [place] [address] September, [facility] [address] [id number], [place] [address] Jun, [facility] [id number], [place] [address] Mar, IMMUNIZATIONS No Known Immunizations SOCIAL HISTORY Never Assessed REASON FOR VISIT Refill request PLAN OF CARE VITAL SIGNS MEDICATIONS Medication Instructions Dosage Frequency Start Date End Date Duration Status Tizanidine HCl 2 MG Orally 2 times a day 1 tablet as needed 12h 06 Feb, 2015 90 days Active RESULTS No Results PROCEDURES [...] hernia Hospitalization History Went by ambulance to [facility] as unresponsive 05/2015 Hospitalization History [facility] sent her to [facility] for a psych hold 05/2015
--- OUTSIDE RECORDS SUMMARY | 2018-03-15 11:06 | XMS REPORT ---
Author Author HERBERT MCGOWAN Organization [employer] Address Unknown Phone Unavailable Care Team Providers Care Acquisition Consultant Name Role Phone HERBERT MCGOWAN CP Unavailable Allergies No Known Allergies Problems Problem Type Condition Code Onset Dates Condition Status Problem Dehydration 276.51 Active Problem Hypopotassemia 276.8 [...] mammogram for high-risk patient V76.11 Active Medications No Known Medications Results No Known Results Summary Purpose [employer] Submission
--- OUTSIDE RECORDS SUMMARY | 2018-03-15 11:06 | XMS REPORT ---
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 Active 613061481 Problem Pelvic pain R10.2 Active 28600428 Problem Blindness of right eye H54.40 Active 928660591 Problem Relationship problem with family member Z63.8 Active 941118864 Problem Essential hypertension I10 Active 90603084 Problem Other chronic pain G89.29 Active 35854063 Problem Lumbago with sciatica, left side M54.42 Active 306700620 Problem Bipolar disorder F31.9 Active 92476761 Problem Posttraumatic stress disorder F43.10 Active 79647667 Problem Bilateral low back pain with sciatica, sciatica laterality unspecified M54.40 Active 238005516 Problem Visual disturbance H53.9 Active 78449188 Problem Overdose T50.901A Active 48672148 Problem Social anxiety disorder F40.10 Active 56888543 Problem Borderline personality disorder F60.3 Active 91599603 Problem Obstructive sleep apnea G47.33 Active 71383044 Problem Chronic pain G89.29 Active 74024438 Problem Acquired hypothyroidism E03.9 Active 083509099 ALLERGIES Substance Reaction Event Type Date Status Sulfamethoxazole-Trimethoprim Unknown Drug Allergy Mar, Active Iodine Unknown Drug Allergy Mar, Active Codeine Sulfate Unknown Drug Allergy Mar, Active Aspirin Unknown Drug Allergy Mar, Active shell fish Unknown Non Drug Allergy Mar, Active IVP dye Unknown Non Drug Allergy Mar, Active tape Unknown Non Drug Allergy Mar, Active strawberries Unknown Non Drug Allergy Mar, Active tomatoes Unknown Non Drug Allergy Mar, Active ENCOUNTERS Encounter Location Date Diagnosis [facility] [place] [id number] [place] [address] 62877- 9390 Nov, [facility] [id number] [place] [address] 08382- 5559 Oct, [place] [id number] [place] [address] 33464- 4776 Oct, [place] [id number] [place] [address] 64906- 1473 September, 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 [facility] [place] [id number] [place] [address] 20249- 5782 September, Bipolar disorder F31.9 ; Posttraumatic stress disorder F43.10 and Borderline personality disorder F60.3 [facility] [id number] [place] [address] 65963- 7031 Aug, BMI 40.0-44.9, adult Z68.41 ; Bipolar disorder F31.9 ; Posttraumatic stress disorder F43.10 and Social anxiety disorder F40.10 [facility] [id number] [place] [address] 28539- 7482 Aug, Bipolar disorder F31.9 ; Posttraumatic stress disorder F43.10 and Borderline personality disorder F60.3 [facility] [id number] [place] [address] 41831- 9765 Aug, 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 [facility] [place] [id number] [place] [address] 44914- 6287 Jul, Bipolar disorder F31.9 ; Posttraumatic stress disorder F43.10 and Borderline personality disorder F60.3 [facility] [id number] [place] [address] 12449- 7430 Jul, [facility] [id number] [place] [address] 75295- 0633 Jun, Bipolar disorder F31.9 ; Posttraumatic stress disorder F43.10 and Borderline personality disorder F60.3 [facility] [id number] [place] [address] 35235- 7845 Jun, Blindness of right eye H54.40 and Acquired hypothyroidism E03.9 [facility] [id number] [place] [address] 61374- 3645 Jun, [facility] [id number] [place] [address] 11812- 0612 May, Posttraumatic stress disorder F43.10 ; Social anxiety disorder F40.10 and Bipolar disorder F31.9 [facility] [place] [id number] [place] [address] 81080- 5149 May, Bipolar disorder F31.9 ; Posttraumatic stress disorder F43.10 and Borderline personality disorder F60.3 [facility] [id number] [place] [address] 68590- 9673 May, [place] [id number] [place] [address] 42916- 6490 May, [facility] [id number] [place] [address] 24445- 0269 Apr, Bipolar disorder F31.9 ; Posttraumatic stress disorder F43.10 and Borderline personality disorder F60.3 [place] [address] [id number] [id number] Apr, [facility] [id number] [place] [address] 61845- 6782 Apr, [facility] [id number] [place] [address] 16226- 9371 Mar, Hydradenitis L73.2 [facility] [id number] [place] [address] 58010- 5079 Mar, Lumbago with sciatica, left side M54.42 ; Other chronic pain G89.29 ; Morbid obesity, unspecified obesity type E66.01 ; Hydradenitis L73.2 and BMI 40.0-44.9, adult Z68.41 [facility] [id number] [place] [address] 32972- 9782 07 Mar, 2017 Bipolar disorder F31.9 ; Posttraumatic stress disorder F43.10 and Borderline personality disorder F60.3 [facility] [id number] [place] [address] 28893- 9976 Mar, Social anxiety disorder F40.10 ; Bipolar disorder F31.9 and Relationship problem with family member Z63.8 [facility] [id number] [place] [address] 88931- 0683 Mar, [id number] [place] [address] [id number] Mar, Dental examination Z01.20 [facility] [id number] [place] [address] 74784- 5165 Mar, [facility] [id number] [place] [address] 11095- 4665 Feb, Bipolar disorder F31.9 ; Posttraumatic stress disorder F43.10 and Borderline personality disorder F60.3 [address] [place] [address] [id number] Feb, [facility] [id number] [place] [address] 04747- 4004 14 Jan, 2017 Bipolar disorder F31.9 ; Posttraumatic stress disorder F43.10 and Borderline personality disorder F60.3 [facility] [address] [id number] [id number] Jan, [facility] [address] [place] [address] 96611- 8437 Jan, [address] [place] [address] [id number] Jan, [facility] [id number] [place] [address] 94920- 8873 Dec, Bipolar disorder F31.9 ; Posttraumatic stress disorder F43.10 and Borderline personality disorder F60.3 [place] [address] [facility] [id number] [address]- 6311 Dec, [facility] [address] [address]- 8950 Dec, [facility] [address] [id number] [id number] Dec, [facility] [id number] [place] [address] 28970- 8468 Nov, Bipolar 1 disorder F31.9 ; Posttraumatic stress disorder F43.10 and Social anxiety disorder F40.10 [place] [id number] [place] [address] 92904- 8350 Nov, Bipolar disorder F31.9 ; Posttraumatic stress disorder F43.10 and Borderline personality disorder F60.3 [facility] [id number] [place] [address] 97148- 2793 Nov, Morbid obesity, unspecified obesity type E66.01 [facility] [place] [address] [address]- 8111 Nov, [place] [id number] [id number] Oct, Encounter for dental examination and cleaning without abnormal findings Z01.20 [facility] [place] [id number] [place] [address] 04568- 4914 Oct, Morbid obesity, unspecified obesity type E66.01 and Acute seasonal allergic rhinitis due to pollen J30.1 [facility] [place] [address] [address]- 9908 Oct, Bipolar disorder F31.9 ; Posttraumatic stress disorder F43.10 and Borderline personality disorder F60.3 [facility] [address] [address]- 7310 September, Morbid obesity, unspecified obesity type E66.01 and Psoriasis L40.9 [facility] [id number] [place] [address] 92068- 2491 September, Bipolar disorder F31.9 ; Posttraumatic stress disorder F43.10 and Borderline personality disorder F60.3 [place] [id number] [place] [address] 64864- 9557 September, Chronic pain G89.29 [facility] [place] [id number] [place] [address] 82958- 6358 Aug, Other acute nonsuppurative otitis media of right ear H65.191 and Morbid obesity, unspecified obesity type E66.01 [facility] [id number] [place] [address] 30373- 1923 Aug, Bipolar 1 disorder F31.9 ; Posttraumatic stress disorder F43.10 and Social anxiety disorder F40.10 [facility] [place] [id number] [place] [address] 46806- 6110 Aug, Bipolar disorder F31.9 ; Posttraumatic stress disorder F43.10 and Borderline personality disorder F60.3 [place] [id number] [place] [address] 10470- 4092 Jul, Morbid obesity due to excess calories E66.01 ; Gastro- esophageal reflux disease without esophagitis K21.9 and Chronic pain G89.29 [facility] [address] [place] [address] 25079- 2367 Jul, Morbid obesity due to excess calories E66.01 [place] [id number] [place] [address] 58378- 7726 Jul, [facility] [id number] [place] [address] 95607- 7376 Jul, [facility] [id number] [place] [address] 18733- 9356 Jul, Morbid obesity due to excess calories E66.01 [facility] [address] [place] [address] 48694- 1860 Jul, Bipolar disorder F31.9 ; Posttraumatic stress disorder F43.10 and Borderline personality disorder F60.3 [facility] [id number] [place] [address] 23158- 6538 16 Jun, 2016 [facility] [id number] [place] [address] 49240- 8085 15 Jun, 2016 Morbid obesity due to excess calories E66.01 [facility] [id number] [place] [address] 63245- 0556 Jun, [facility] [id number] [place] [address] 95382- 5773 09 Jun, 2016 Morbid obesity, unspecified obesity type E66.01 [place] [id number] [place] [address] 90420- 2129 03 Jun, 2016 Bipolar disorder F31.9 ; Posttraumatic stress disorder F43.10 and Borderline personality disorder F60.3 [facility] [id number] [place] [address] 90559- 9549 03 Jun, 2016 [facility] [id number] [place] [address] 08207- 2983 Jun, [facility] [id number] [place] [address] 41524- 6195 02 Jun, 2016 Acquired hypothyroidism E03.9 and Morbid obesity due to excess calories E66.01 [place] [address] [place] [address] 01851- 1066 May, Bipolar disorder F31.9 ; Posttraumatic stress disorder F43.10 and Borderline personality disorder F60.3 [facility] [address] [address]- 4364 Apr, Bipolar 1 disorder F31.9 ; Posttraumatic stress disorder F43.10 and Social anxiety disorder F40.10 [facility] [address] [id number] [id number] Apr, Encounter for dental examination Z01.20 [facility] [id number] [place] [address] 23979- 7734 Apr, [facility] [id number] [place] [address] 26093- 1545 Apr, Acquired hypothyroidism E03.9 [facility] [id number] [place] [address] 01772- 7001 Apr, Acquired hypothyroidism E03.9 [facility] [id number] [place] [address] 30065- 8804 Apr, Bipolar disorder F31.9 ; Posttraumatic stress disorder F43.10 and Borderline personality disorder F60.3 [facility] [id number] [place] [address] 06847- 4420 Apr, Acquired hypothyroidism E03.[address] [place] [place] [address] [id number] [id number] Mar, Encounter for dental examination and cleaning without abnormal findings Z01.20 [facility] [id number] [place] [address] 50234- 4172 Mar, [facility] [id number] [place] [address] 69876- 2022 Mar, Bipolar disorder F31.9 ; Posttraumatic stress disorder F43.10 and Borderline personality disorder F60.3 [place] [id number] [place] [address] 91587- 5340 Mar, Essential (primary) hypertension I10 [place] [id number] [place] [address] 98119- 4036 Feb, [place] [id number] [place] [address] 91690- 5780 Feb, [place] [id number] [place] [address] 30945- 4098 11 Feb, 2016 Pelvic pain R10.2 ; Lipid screening Z13.220 ; Fatigue, unspecified type R53.83 and Weight gain R63.5 [place] [id number] [place] [address] 89905- 9945 Feb, Bipolar disorder F31.9 ; Posttraumatic stress disorder F43.10 and Borderline personality disorder F60.3 [facility] [address] [facility] [id number] [place] [address] 75997- 4341 Feb, [facility] [address] [facility] [id number] [place] [address] 01760- 2813 Feb, [facility] [id number] [place] [address] 85939- 8332 Jan, Obstructive sleep apnea syndrome G47.33 [facility] [id number] [place] [address] 94017- 5301 Jan, [address] [id number] [id number] 19 Jan, 2016 Dental examination Z01.20 [facility] [id number] [place] [address] 98329- 2619 Jan, Bipolar 1 disorder F31.9 ; Posttraumatic stress disorder F43.10 and Social anxiety disorder F40.10 [facility] [id number] [place] [address] 28350- 1200 Jan, Bipolar disorder F31.9 ; Posttraumatic stress disorder F43.10 and Borderline personality disorder F60.3 [facility] [address] [place] [address] 31070- 3992 Jan, Sciatica of left side M54.32 [facility] [id number] [place] [address] 20812- 6435 Jan, [facility] [id number] [place] [address] 31526- 2613 Dec, [facility] [id number] [place] [address] 08282- 1676 Dec, [facility] [id number] [place] [address] 16908- 3623 Dec, Bipolar disorder F31.9 ; Posttraumatic stress disorder F43.10 and Borderline personality disorder F60.3 [facility] [address] [address]- 0832 Nov, [facility] [id number] [place] [address] 60593- 7764 Nov, Insomnia, unspecified type G47.00 [facility] [id number] [place] [address] 75278- 4311 Nov, Bipolar disorder F31.9 ; Posttraumatic stress disorder F43.10 and Borderline personality disorder F60.3 [facility] [address] [address]- 9198 Nov, [facility] [id number] [place] [address] 23734- 6021 Nov, [facility] [id number] [place] [address] 14607- 1675 Oct, Bipolar disorder F31.9 ; Posttraumatic stress disorder F43.10 and Borderline personality disorder F60.3 [facility] [id number] [place] [address] 44299- 7112 Oct, [facility] [id number] [place] [address] 16247- 9739 Oct, Essential (primary) hypertension I10 [facility] [address] [address]- 2672 September, Bipolar 1 disorder F31.9 ; Posttraumatic stress disorder F43.10 and Social anxiety disorder F40.10 [facility] [address] [address]- 7690 September, Bipolar disorder F31.9 ; Posttraumatic stress disorder F43.10 and Borderline personality disorder F60.3 [facility] [address] [facility] [address] [id number] [id number] September, Encounter for dental examination and cleaning without abnormal findings Z01.20 [facility] [address] [address]- 6592 September, [facility] [address] [address]- 1305 September, [facility] [id number] [place] [address] 41936- 3389 Aug, [facility] [id number] [place] [address] 02137- 5351 Aug, Bipolar disorder F31.9 ; Posttraumatic stress disorder F43.10 and Borderline personality disorder F60.3 [facility] [id number] [place] [address] 99825- 4231 Aug, [facility] [id number] [place] [address] 87172- 0525 Aug, [facility] [id number] [place] [address] 59297- 3355 Aug, [facility] [id number] [place] [address] [id number] Jul, Acute nasopharyngitis [common cold] J00 and Other viral agents as the cause of diseases classified elsewhere B97.89 [facility] [address] [place] [address] 22401- 3015 Jul, Chronic pain G89.29 and Allergic rhinitis J30.9 [facility] [address] [address]- 1492 Jul, Bipolar 1 disorder F31.9 ; Posttraumatic stress disorder F43.10 and Social anxiety disorder F40.10 [facility] [address] [address]- 4553 Jul, Bipolar 1 disorder F31.9 [facility] [address] [place] [address] 67809- 0245 Jul, Bipolar disorder F31.9 ; Posttraumatic stress disorder F43.10 and Borderline personality disorder F60.3 [facility] [address] [address]- 0141 Jul, [place] [id number] [place] [address] 13861- 8606 14 Jul, 2015 [facility] [id number] [place] [address] 05320- 5916 11 Jul, 2015 [facility] [id number] [place] [address] 90724 2546 10 Jul, 2015 Anxiety F41.9 [facility] [id number] [place] [address] 77333 2546 10 Jul, 2015 Chronic pain G89.29 and Encounter for therapeutic drug level monitoring Z51.81 [facility] [id number] [place] [address] 51425- 5270 09 Jul, 2015 Chronic pain G89.29 and Encounter for therapeutic drug level monitoring Z51.81 [facility] [id number] [place] [address] 26808- 0443 08 Jul, 2015 [facility] [id number] [place] [address] 31653- 7550 Jun, [facility] [id number] [place] [address] 76332- 2582 Jun, [facility] [id number] [place] [address] 49609- 7634 15 Jun, 2015 [facility] [id number] [place] [address] 51249- 9907 15 Jun, 2015 [facility] [id number] [place] [address] 77481- 3949 Jun, High risk medication use V58.69 [facility] [id number] [place] [address] 57040- 4337 Jun, [facility] [id number] [place] [address] 91978- 8689 09 Jun, 2015 Bipolar 1 disorder F31.9 ; Overdose T50.901A and Chronic pain G89.29 [facility] [address] [place] [address]- 0994 09 Jun, 2015 Bipolar disorder F31.9 ; Posttraumatic stress disorder F43.10 and Borderline personality disorder F60.3 [facility] [address] [place] [address] 71915- 2649 08 Jun, 2015 [facility] [id number] [place] [address] 37681- 4091 Jun, [facility] [id number] [place] [address] 40180- 1350 Jun, Keloid L91.0 [facility] [id number] [place] [address] 06742- 9208 Jun, [facility] [id number] [place] [address] 58024- 8011 May, [facility] [id number] [place] [address] 86937- 5819 May, [facility] [id number] [place] [address] 03207- 3933 May, Pelvic pain R10.2 [facility] [id number] [place] [address] 73758- 4968 May, [facility] [id number] [place] [address] 30738- 4033 May, Pain of left thumb M79.645 ; Incisional pain R20.8 ; Pelvic pain R10.2 and Essential hypertension I10 [facility] [address] [address]- 5798 May, [facility] [id number] [place] [address] 22637- 0131 May, [facility] [address] [id number] [id number] May, Dental examination Z01.20 and Necrosis of pulp K04.1 [facility] [id number] [place] [address], [place] [address]- 7844 31 Apr, 2014 [facility] [place] [facility] [address] [id number] [place] Apr, 2014 [facility] [place] [facility] [address] [id number] [place] [address] Apr, [facility] [place] [facility] [address] [facility] [id number] [place] [address] Apr, 2014 [facility] [place] [facility] [address] [id number] [place] [address] Apr, [facility] [place] [facility] [address] [id number] [place] [address] Apr, [facility] [place] [facility] [address] [id number] [place] [address] Apr, 2014 [facility] [place] [facility] [address] [facility] [id number] [place] [address] Apr, 2014 [facility] [place] [facility] [address] [facility] [id number] [place] [address] Mar, [facility] [place] [facility] [address] [id number] [place] [address] Mar, [facility] [place] [facility] [address] [facility] [id number] [place] [address] Mar, [facility] [place] [facility] [address] [facility] [id number] [place] [address] Mar, [facility] [place] [facility] [address] [facility] [id number] [address] Feb, [facility] [place] [facility] [address] [id number] [place] [address] 2696 Feb, [facility] [place] [facility] [address] [facility] [id number] [place] [address] 7042 Feb, [facility] [place] [facility] [address] [facility] [id number] [place] [address] Feb, [facility] [place] [facility] [address]00565100[place] [address] Feb, [facility] [address]00565[address] [address] Feb, [facility] [address]00565100[place] [address] 9610 Feb, [facility] [id number] [place] [address] Feb, Dermatofibroma of left lower leg D23.72 [facility] [address]00565[address] [address] 15[address] Feb, Hematochezia 578.1 ; Low back pain M54.5 ; High risk medication use V58.69 ; Cervicalgia M54.2 and Anxiety F41.[address] [id number] [id number] Feb, Dental examination Z01.20 ; Pulpitis K04.0 and Dental caries, unspecified K02.9 [facility] [address] [place] [address] AVE [id number] [id number] Feb, Dental examination Z01.20 [facility] [address]00565[address] [address] 6[address] 30 Jan, 2015 [facility] [address] [address] 450[address] Jan, [facility] [address]65[address] [address] 6458 Jan, [facility] [address]65[address] [address] 2869 Jan, [facility] [address]00565[address] [address] 4150 Dec, [facility] [address] [address] 8008 Dec, [facility] [address] [id number] [address] 5[address] Dec, [facility] [address] [id number] [address] 95[address] Dec, [facility] [address] [id number] [address] 54[address] Dec, [facility] [address] [id number] [address] 3908 Dec, [facility] [address] [id number] [place] [address] 0867 Dec, [facility] [address] [id number] [place] [address] 0190 Dec, [facility] [address] [facility] [id number] [id number] Nov, Encounter for removal of sutures V58.32 [facility] [address] [id number] [place] [address] 8326 Nov, [facility] [address] [id number] [address] 4215 Nov, [facility] [address] [id number] [address]- 7033 Nov, [facility] [address] [id number] [address]- 0080 Nov, [facility] [address] [id number] [address] 1443 Nov, [facility] [address] [id number] [place] [address]- 3530 Nov, [facility] [address] [id number] [place] [address] 8862 Nov, [facility] [address] [facility] [id number] [place] [address]- 8772 Nov, Dermatofibroma 216.9 [facility] [address] [id number] [place] [address] 2546 Nov, [facility] [address]00565100[place] [address] 1056 Nov, [facility] [address]00565100[place] [address]- 8249 Oct, [facility] [address]00565100[place] [address] 3895 Oct, Hematochezia 578.1 ; Abscess 682.9 ; GERD (gastroesophageal reflux disease) 530.81 ; Visual disturbance of one eye 368.9 and High risk medication use V58.69 [facility] [address]00565100[place] [address] 3668 Oct, [facility] [address]00565100[place] [address]- 3006 Oct, [facility] [address] [id number] [address]- 1046 Oct, [facility] [address]00565100[place] [address]- 3991 September, [facility] [address]00565100[place] 8117 September, [facility] [address]00565100[place] [address]- 1510 September, [facility] [address]00565100[place] [address]- 5916 September, [facility] [address]00565100[place] [address]- 3016 September, [facility] [address]00565100[place] [address]- 5540 September, Colon cancer screening V76.51 [facility] [address]00565100[place] [address]- 5606 September, [facility] [address]00565100[place] [address]- 2648 14 Aug, 2014 [facility] [place] [facility] [address] [id number] [place] [address]- 9363 Aug, [facility] [place] [facility] [address] [id number] [place] [address]- 6595 Jul, [facility] [place] [facility] [address] [facility] [id number] [place] [address]- 2347 Jul, [facility] [place] [facility] [address] [id number] [place] [address]- 1509 Jul, [facility] [place] [facility] [address] [id number] [place] [address]- 6366 Jul, [facility] [place] [facility] [address] [id number] [place] [address]- 5202 Jun, [facility] [place] [facility] [address] [facility] [id number] [place] [address]- 7643 Jun, [facility] [place] [facility] [address] [id number] [place] [address]- 3707 Jun, [facility] [place] [facility] [address] [id number] [place] [address]- 9122 Jun, [facility] [place] [facility] [address] [facility] [id number] [place] [address]- 8984 Jun, [facility] [place] [facility] [address] [id number] [place] [address]- 8991 Jun, [facility] [place] [facility] [address] [id number] [place] [address]- 1496 May, [facility] [place] [facility] [address] [id number] [address]- 2386 May, [facility] [place] [facility] [address] [facility] [id number] [place] [address]- 1797 May, [facility] [place] [facility] [address] [facility] [id number] [place] [address]- 9426 May, [facility] [place] [facility] [address] [id number] [place] [address]- 4898 May, [facility] [place] [facility] [address] [id number] [place] [address]- 0239 May, [facility] [place] [facility] [address] [id number] [place] [address]- 4539 May, [facility] [place] [facility] [address] [id number] [place] [address]- 0743 May, [facility] [place] [facility] [address] [id number] [place] [address]- 6403 Apr, [facility] [place] [facility] [address] [id number] [place] [address]- 2082 Apr, [facility] [place] [facility] [address] [id number] [place] [address]- 0483 Apr, [facility] [place] [facility] [address] [id number] [place] [address]- 5547 Apr, [facility] [place] [facility] [address] [id number] [place] [address]- 9110 Apr, [facility] [place] [facility] [address] [id number] [place] [address]- 9777 Apr, [facility] [place] [facility] [address] [id number] [place] [address]112 Apr, [facility] [place] [facility] [address] [id number] [place] [address]- 8211 Apr, [facility] [place] [facility] [address] [id number] [place] [address]- 8992 Mar, [facility] [place] [facility] [address] [id number] [place] [address]- 4688 Mar, [facility] [place] [facility] [address] [id number] [place] [address]- 2676 Mar, [facility] [place] [facility] [address] [id number] [place] [address]- 3504 Mar, [facility] [place] [facility] [address] [id number] [place] [address]- 7389 Mar, [facility] [place] [facility] [address] [id number] [place] [address]- 2979 Mar, [facility] [place] [facility] [address] [id number] [place] [address]- 1370 Mar, [facility] [place] [facility] [address] [id number] [place] [address]- 2653 Mar, [facility] [place] [facility] [address] [id number] [place] [address]- 9333 Mar, [facility] [place] [facility] [address] [id number] [place] [address]- 5911 Mar, [facility] [place] [facility] [address] [id number] [place] [address]- 8048 Feb, [facility] [place] [facility] [address] [id number] [place] [address]- 0907 Feb, [facility] [place] [facility] [address] [id number] [place] [address]- 2156 Jan, [facility] [place] [facility] [address] [id number] [place] [address]- 0328 Jan, [facility] [place] [facility] [address] [id number] [place] [address]- 7568 Jan, [facility] [place] [facility] [address] [id number] [address]- 6347 Jan, [facility] [place] [facility] [address] [id number] [place] [address]- 1741 Dec, [facility] [place] [facility] [address] [id number] [place] [address]- 4062 Dec, [facility] [place] [facility] [address] [id number] [place] [address]- 1101 Dec, [facility] [place] [facility] [address] [id number] [place] [address]- 3368 Dec, [facility] [place] [facility] [address] [id number] [place] [address]- 4902 Dec, [facility] [place] [facility] [address] [id number] [place] [address]- 8371 Dec, [facility] [place] [facility] [address] [id number] [place] [address]- 6883 Nov, [facility] [place] [facility] [address] [id number] [place] [address]- 2087 Nov, [facility] [place] [facility] [address] [id number] [place] [address]- 1274 Oct, [facility] [place] [facility] [address] [id number] [place] [address]- 9294 Oct, [facility] [place] [facility] [address] [id number] [place] [address]- 3185 Oct, [facility] [place] [facility] [address] [id number] [place] [address]- 7698 Oct, [facility] [place] [facility] [address] [id number] [place] [address]- 1145 September, [facility] [place] [facility] [address] [id number] [place] [address]- 8274 September, [facility] [place] [facility] [address] [id number] [place] [address]- 2936 September, [facility] [place] [facility] [address] [id number] [place] [address]- 8330 September, [facility] [place] [facility] [address] [id number] [place] [address]- 6840 September, [facility] [place] [facility] [address] [id number] [place] [address]- 9242 September, [facility] [place] [facility] [address] [id number] [place] [address]70 September, [facility] [place] [facility] [address] [id number] [place] [address]- 1250 September, [facility] [place] [facility] [address] [id number] [place] [address]- 4486 Aug, [facility] [place] [facility] [address] [id number] [place] [address]- 3165 Aug, [facility] [place] [facility] [address] [id number] [place] [address]- 0582 Aug, [facility] [place] [facility] [address] [id number] [place] [address]- 3546 Aug, [facility] [place] [facility] [address] [id number] [place] [address]- 6148 Aug, [facility] [place] [facility] [address] [id number] [place] [address]- 3870 Aug, [facility] [place] [facility] [address] [id number] [place] [address]- 2438 Jul, [facility] [place] [facility] [address] [id number] [place] [address]- 5859 Jul, [facility] [place] [facility] [address] [id number] [place] [address]- 9215 Jul, [facility] [place] [facility] [address] [id number] [place] [address]- 8829 Jul, [facility] [place] [facility] [address] [id number] [place] [address]- 0659 Jun, [facility] [place] [facility] [address] [id number] [place] [address]- 6306 Jun, [facility] [place] [facility] [address] [id number] [place] [address]- 4511 Jun, [facility] [place] [facility] [address] [id number] [place] [address]- 7538 Jun, [facility] [place] [facility] [address] [id number] [address]- 8912 Jun, [facility] [address] [id number] [place] [address]- 1718 Jun, [facility] [address] [id number] [place] [address]- 2845 May, [facility] [address] [id number] [place] [address]- 0682 May, [facility] [address] [id number] [place] [address]- 0991 May, [facility] [address] [id number] [place] [address]- 0987 May, [facility] [address] [id number] [place] [address]- 0364 May, [facility] [address] [id number] [place] [address]- 3822 May, [facility] [address] [id number] [place] [address]- 0390 May, [facility] [address] [id number] [place] [address]- 1444 May, [facility] [address] [id number] [place] [address]- 1680 Apr, [facility] [address] [place] [address] Apr, [facility] [address] [id number] [address]- 5160 Apr, [facility] [address] [id number] [place] [address]- 7863 Apr, [facility] [address] [id number] [place] [address]- 8896 Apr, [facility] [address] [id number] [place] [address]- 2600 Apr, [facility] [address] [id number] [place] [address]- 8150 05 Apr, 2013 [facility] [address] [id number] [place] [address]- 9184 05 Apr, 2013 [facility] [address] [id number] [place] [address]- 4394 Apr, [facility] [address] [id number] [place] [address]- 0118 Mar, [facility] [place] [facility] [address] [id number] [place] [address]- 3181 Mar, [facility] [address] [id number] [place] [address]- 0511 Mar, [facility] [address] [id number] [place] [address]- 3629 Mar, [facility] [address] [id number] [place] [address]- 3152 Mar, [facility] [address] [id number] [place] [address]- 1387 Feb, [facility] [address] [id number] [place] [address]- 1155 Feb, [facility] [address] [id number] [place] [address]- 6442 Feb, [facility] [place] [facility] [address] [id number] [place] [address]- 0534 Feb, [facility] [place] [facility] [address] [id number] [place] [address]- 6401 Jan, [facility] [place] [facility] [address] [id number] [place] [address]- 2032 24 Jan, 2013 [facility] [place] [facility] [address] [id number] [place] [address]- 8868 12 Jan, 2013 [facility] [place] [facility] [address] [id number] [place] [address]- 0482 Dec, [facility] [place] [facility] [address] [id number] [place] [address]- 2546 Dec, [facility] [address] [id number] [place] [address]- 2546 Dec, [facility] [address] [id number] [place] [id number] Nov, [facility] [address] [id number] [place] [address] Oct, [facility] [address] [id number] [place] [address]- 2546 Oct, [facility] [address] [id number] [place] [address]- 2546 September, [facility] [address] [id number] [place] [address]- 2546 September, [facility] [address] [id number] [place] [address]- 2546 September, [facility] [address] [id number] [place] [address]- 2546 September, [facility] [address] [id number] [place] [address]- 2546 September, [facility] [address] [id number] [place] [address]- 2546 Jul, [facility] [place] [facility] [address] [id number] [place] [address]- 2546 Jul, [facility] [place] [facility] [address] [id number] [place] [address]- 2546 Jul, [facility] [place] [facility] [address] [id number] [place] [address]- 2546 Jul, [facility] [place] [facility] [address] [id number] [place] [address]- 2546 Jun, [facility] [place] [facility] [address] [id number] [place] [address]- 3005 Jun, [facility] [place] [facility] [address] [id number] [place] [address]- 3200 Jun, [facility] [place] [facility] [address] [id number] [place] [address]- 5688 Jun, [facility] [place] [facility] [address] [id number] [place] [address]- 5023 May, [facility] [place] [facility] [address] [id number] [place] [address]- 3903 Mar, [facility] [place] [facility] [address] [id number] [place] [address]- 5520 Mar, [facility] [place] [facility] [address] [id number] [place] [address]- 9205 Mar, [facility] [place] [facility] [address] [id number] [place] [address]- 1792 Mar, [facility] [place] [facility] [address] [id number] [place] [address]- 8018 Mar, [facility] [place] [facility] [address] [id number] [place] [address]- 8403 Mar, [facility] [place] [facility] [address] [id number] [place] [address]- 8934 Mar, [facility] [place] [facility] [address] [id number] [address]- 4916 Mar, [facility] [place] [facility] [address] [id number] [address]- 8782 Feb, [facility] [place] [facility] [address] [id number] [place] [address]- 2028 Feb, [facility] [place] [facility] [address] [id number] [address]- 6188 Feb, [facility] [place] [facility] [address] [id number] [place] [address]- 1107 Feb, [facility] [place] [facility] [address] [facility] [id number] [place] [address]- 2546 Feb, [facility] [place] [facility] [address] [id number] [place] [address]- 9926 Feb, [facility] [place] [facility] [address] [facility] [id number] [place] [address] Feb, [facility] [address] [facility] [id number] [place] [id number] Jan, [facility] [address] [id number] [place] [id number] Dec, [facility] [address] [id number] [place] [id number] Dec, [facility] [address] [facility] [id number] [place] [address] Nov, [facility] [id number] [address] Nov, [facility] [address] [facility] [id number] [place] [address] Oct, [facility] [address] [facility] [id number] [address] Jul, [facility] [address] [id number] [address] Jul, [facility] [address] [facility] [id number] [place] [address] May, [facility] [address] [facility] [id number] [place] [address] May, [facility] [address] [facility] [id number] [place] [address] Nov, [facility] [address] [facility] [id number] [place] [address] Mar, [facility] [address] [facility] [id number] [place] [address] Dec, [facility] [address] [facility] [id number] [place] [address] Nov, [facility] [id number] [address] Aug, [facility] [id number] [address] Apr, [facility] [id number] [address] Apr, [facility] [address] [id number] [address] Mar, [facility] [id number] [place] [address] Feb, [facility] [id number] [address] September, [facility] [id number] [address] Jun, [facility] [address] [id number] [address] Mar, IMMUNIZATIONS No Known Immunizations SOCIAL HISTORY Never Assessed REASON FOR VISIT 3 mo f.u, PT has concerns about knots located all over her lower limbs -Hernandez AMAYA PLAN OF CARE Activity Details Follow Up 3 Months Reason:wt mgmt VITAL SIGNS Height 62 in 2017-03-30 Weight 228.6 lbs 2017-03-30 Temperature 98.6 degrees Fahrenheit 2017-03-30 Heart Rate 78 bpm 2017-03-30 Respiratory Rate 22 2017-03-30 Oximetry on room air:98 % 2017-03-30 BMI 41.81 kg/m2 2017-03-30 Blood pressure systolic 126 mmHg 2017-03-30 Blood pressure diastolic 78 mmHg 2017-03-30 MEDICATIONS Medication Instructions Dosage Frequency Start Date End Date Duration Status Creon 46899 UNIT Orally 3 times a day 1 capsule before meals 8h Nov, 90 days Active Combivent Respimat 20-100 MCG/ACT Inhalation Four times a day 1 puff 6h 30 Active Gabapentin 300 MG Orally 3 times a day 1 tablet 8h 90 days Active Dicyclomine HCl 20 mg 1 tablet Four times a day Orally 30 days 90 Active Losartan Potassium-HCTZ 50-12.5 MG Orally Once a day 1 tablet 24h 90 Active Fluocinolone Acetonide Scalp 0.01 % Externally twice a day till gone 1 application to affected area at bedtime Mar, Active Levothyroxine Sodium 25 MCG Orally Once a day 1 tablet on an empty stomach in the morning 24h 90 days Active Imitrex 50 mg Orally Once a day 1 tablet as needed at start of migraine 24h 30 Active Doxepin HCl 10 mg Orally Once at bedtime for sleep 1 capsule at bedtime September, Active Loratadine 10 mg Orally 2 times a day 1 tablet 12h 27 Sep, 2013 90 days Active Lamotrigine 200 MG Orally Once a day 1 tablet 24h Active Tizanidine HCl 2 MG Orally 2 times a day 1 tablet as needed 12h Feb, 90 days Active Contrave 8-90 MG Orally Twice a day 2 tablets 12h Jun, 30 days Active Carafate 1 GM Orally 4 times a day 1 tablet on an empty stomach 6h 90 Active Fish Oil 300 MG Orally Once a day 1 capsule 24h Active Cymbalta 60 mg Orally Once a day with Cymbalta 30mg. Total dose is 90mg 1 capsule Active Sumatriptan 5 mg by oral route Once a day 1 tablet 24h Active Oxygen 2 L/NC Active Cymbalta 30 MG Orally Once a day with Cymbalta 60mg. Total dose 90mg 1 capsule along with 60mg Active Atorvastatin Calcium 20 MG Orally Once a day 1 tablet 24h Active Depo-Estradiol 5 MG/ML Intramuscular once monthly 1 ml Active Triamcinolone Acetonide 0.5 % Externally Twice a day 1 application to affected area 12h September, Active RESULTS No Results PROCEDURES Procedure Date Ordered Result Body Site MEASURE BLOOD OXYGEN LEVEL Mar 30, 2017 INSTRUCTIONS MEDICATIONS ADMINISTERED No Known Medications [...] hernia Hospitalization History Went by ambulance to [place] as unresponsive 05/2015 Hospitalization History [place] sent her to [facility] for a psych hold 05/2015
--- OUTSIDE RECORDS SUMMARY | 2018-03-15 11:06 | XMS REPORT ---
Author Author LINDA HELMS Organization [employer] Address Unknown Phone Unavailable Care Team Providers Care Ge[employer] Director Name Role Phone LINDA HELMS CP Unavailable Allergies No Known Allergies Problems Problem Type Condition Code Onset Dates Condition Status Problem Irritable bowel syndrome 564.1 Active Problem Esophageal reflux 530.81 Active Problem Nausea alone 787.02 Active Problem Bilateral low back pain with sciatica, sciatica laterality unspecified M54.40 Active Problem Other dyspnea and respiratory abnormalities 786.09 Active Problem Visual disturbance H53.9 Active Problem Cervicalgia 723.1 Active Problem Essential hypertension, benign 401.1 Active Problem Screening mammogram for high-risk patient V76.11 Active Problem Hypertrophy of breast 611.1 Active Assessment 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 Assessment Dental examination Z01.20 Active Problem Urinary tract infection, site not specified 599.0 Active Problem Blood in stool 578.1 Active Problem Dehydration 276.51 Active Problem Abdominal pain, generalized 789.07 Active Problem Hypopotassemia 276.8 Active Problem 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
--- OUTSIDE RECORDS SUMMARY | 2018-03-15 11:06 | XMS REPORT ---
Author Author HERBERT MCGOWAN Organization [employer] Address Unknown Phone Unavailable Care Team Providers Care Wastewater Design Engineer Name Role Phone HERBERT MCGOWAN CP Unavailable Allergies No Known Allergies Problems Problem Type Condition Code Onset Dates Condition Status Problem Unspecified [...] Problem Abdominal pain, generalized 789.07 Active Medications Medication Code System Code Instructions Start Date End Date Status Dosage Cristina [facility] [id number] 50-12.5 MG Orally Once a day October 04, 2014 1 tablet Results No Known Results Summary Purpose [employer] Submission
--- OUTSIDE RECORDS SUMMARY | 2018-03-15 11:06 | XMS REPORT ---
Author Author HERBERT MCGOWAN Organization [employer] Address Unknown Phone Unavailable Care Team Providers Care Freight Hustler Name Role Phone HERBERT MCGOWAN CP Unavailable [...] Instructions Start Date End Date Status Dosage Marcos [facility] [place] [id number] UNIT Orally 3 times a day before meals December 10, 2014 as directed Results No Known Results Summary Purpose [employer] Submission
--- OUTSIDE RECORDS SUMMARY | 2018-03-15 11:07 | XMS REPORT ---
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 Active 143266473 Problem Pelvic pain R10.2 Active 72100895 Problem Blindness of right eye H54.40 Active 417961989 Problem Relationship problem with family member Z63.8 Active 092073602 Problem Essential hypertension I10 Active 81829524 Problem Other chronic pain G89.29 Active 16256733 Problem Lumbago with sciatica, left side M54.42 Active 570642557 Problem Bipolar disorder F31.9 Active 76208225 Problem Posttraumatic stress disorder F43.10 Active 71511584 Problem Bilateral low back pain with sciatica, sciatica laterality unspecified M54.40 Active 881469466 Problem Visual disturbance H53.9 Active 59727712 Problem Overdose T50.901A Active 34488150 Problem Social anxiety disorder F40.10 Active 07881393 Problem Borderline personality disorder F60.3 Active 48562707 Problem Obstructive sleep apnea G47.33 Active 97503136 Problem Chronic pain G89.29 Active 38741770 Problem Acquired hypothyroidism E03.9 Active [id number] ALLERGIES No Information ENCOUNTERS Encounter Location Date Diagnosis [facility] [address] [address] Nov, [facility] [address] [address] Oct, [facility] [address] [place] [id number] [place] [address] 38816- 3514 Oct, [place] [address] [address]- [address] September, 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 [place] [id number] [place] [address] 00835- 9858 September, Bipolar disorder F31.9 ; Posttraumatic stress disorder F43.10 and Borderline personality disorder F60.3 [place] [address] 57479- 1228 Aug, BMI 40.0-44.9, adult Z68.41 ; Bipolar disorder F31.9 ; Posttraumatic stress disorder F43.10 and Social anxiety disorder F40.10 [place] [address] [id number] [place] [address] 66195- 5743 Aug, Bipolar disorder F31.9 ; Posttraumatic stress disorder F43.10 and Borderline personality disorder F60.3 [place] [address] [id number] [place] [address] 29404- 6580 Aug, 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 [place] [address] [id number] [place] [address] 01366- 9032 Jul, Bipolar disorder F31.9 ; Posttraumatic stress disorder F43.10 and Borderline personality disorder F60.3 [place] [address] [place] [id number] [place] [address] 86221- 5261 Jul, [place] [address] [place] [id number] [place] [address] 93314- 3541 Jun, Bipolar disorder F31.9 ; Posttraumatic stress disorder F43.10 and Borderline personality disorder F60.3 [place] [address] 25615- 2700 Jun, Blindness of right eye H54.40 and Acquired hypothyroidism E03.9 [place] [address] 89411- 9033 Jun, [facility] [address] [address] May, Posttraumatic stress disorder F43.10 ; Social anxiety disorder F40.10 and Bipolar disorder F31.9 [facility] [address] [address] 1698 May, Bipolar disorder F31.9 ; Posttraumatic stress disorder F43.10 and Borderline personality disorder F60.3 [facility] [address] [place] [address] 41113- 0537 May, [facility] [address] [place] [address] 48262- 6774 May, [facility] [address] [place] [address] 85828- 4004 Apr, Bipolar disorder F31.9 ; Posttraumatic stress disorder F43.10 and Borderline personality disorder F60.3 [address] [id number] Apr, [facility] [address] [place] [address] 43568- 5641 Apr, [place] [address] [place] [address] 60139- 6109 Mar, Hydradenitis L73.2 [place] [address] [place] [address] 11227- 0511 Mar, Lumbago with sciatica, left side M54.42 ; Other chronic pain G89.29 ; Morbid obesity, unspecified obesity type E66.01 ; Hydradenitis L73.2 and BMI 40.0-44.9, adult Z68.41 [facility] [address] [place] [address] 55724- 1983 Mar, Bipolar disorder F31.9 ; Posttraumatic stress disorder F43.10 and Borderline personality disorder F60.3 [facility] [id number] [place] [address] 62573- 5569 Mar, Social anxiety disorder F40.10 ; Bipolar disorder F31.9 and Relationship problem with family member Z63.8 [facility] [address] [address] 8037 Mar, [facility] [address] [id number] [place] [id number] Mar, Dental examination Z01.20 [facility] [id number] [place] [address] 25703- 8992 Mar, [facility] [id number] [place] [address] 78711- 4896 Feb, Bipolar disorder F31.9 ; Posttraumatic stress disorder F43.10 and Borderline personality disorder F60.3 [facility] [id number] [place] [id number] Feb, [facility] [address] [place] [address] 86265- 4248 Jan, Bipolar disorder F31.9 ; Posttraumatic stress disorder F43.10 and Borderline personality disorder F60.3 [facility] [address] [id number] SPRINGS[place] [id number] Jan, [facility] [address] [place] [address] 81898- 0627 Jan, [facility] [id number] [id number] Jan, [facility] [address] [place] [address] 08640- 3164 Dec, Bipolar disorder F31.9 ; Posttraumatic stress disorder F43.10 and Borderline personality disorder F60.3 [facility] [id number] [place] [address] 98362- 1866 Dec, [facility] [id number] [place] [address] 99986- 1096 Dec, [facility] [address] [facility] [id number] [place] [address] [id number] Dec, [place] [address] [address]- 9139 Nov, Bipolar 1 disorder F31.9 ; Posttraumatic stress disorder F43.10 and Social anxiety disorder F40.10 [place] [address] [place] [address] 85810- 6254 Nov, Bipolar disorder F31.9 ; Posttraumatic stress disorder F43.10 and Borderline personality disorder F60.3 [place] [id number] [place] [address] 46320- 1190 Nov, Morbid obesity, unspecified obesity type E66.01 [place] [id number] [place] [address] 22829- 6855 Nov, [address] [id number] Oct, Encounter for dental examination and cleaning without abnormal findings Z01.20 [place] [id number] [place] [address] 56403- 7485 Oct, Morbid obesity, unspecified obesity type E66.01 and Acute seasonal allergic rhinitis due to pollen J30.1 [place] [id number] [place] [address] 66984- 0529 Oct, Bipolar disorder F31.9 ; Posttraumatic stress disorder F43.10 and Borderline personality disorder F60.3 [place] [id number] [place] [address] 20380- 2008 September, Morbid obesity, unspecified obesity type E66.01 and Psoriasis L40.9 [address] [place] [address] 03102- 9810 September, Bipolar disorder F31.9 ; Posttraumatic stress disorder F43.10 and Borderline personality disorder F60.3 [address] [place] [address] 96249- 5021 September, Chronic pain G89.29 [place] [id number] [place] [address] 42535- 0890 Aug, Other acute nonsuppurative otitis media of right ear H65.191 and Morbid obesity, unspecified obesity type E66.01 [facility] [id number] [place] [address] 29818- 1828 Aug, Bipolar 1 disorder F31.9 ; Posttraumatic stress disorder F43.10 and Social anxiety disorder F40.10 [place] [address] 55391- 7205 Aug, Bipolar disorder F31.9 ; Posttraumatic stress disorder F43.10 and Borderline personality disorder F60.3 [place] [address] [place] [id number] [place] [address] 273112- 7624 Jul, Morbid obesity due to excess calories E66.01 ; Gastro- esophageal reflux disease without esophagitis K21.9 and Chronic pain G89.29 [place] [address] [place] [id number] [place] [address] 71347- 4493 Jul, Morbid obesity due to excess calories E66.01 [facility] [id number] [place] [address] 40256- 1191 Jul, [facility] [address] 83233- 2558 Jul, [facility] [address] [place] [id number] [place] [address] 21303- 1868 Jul, Morbid obesity due to excess calories E66.01 [facility] [id number] [place] [address] 87825- 6651 Jul, Bipolar disorder F31.9 ; Posttraumatic stress disorder F43.10 and Borderline personality disorder F60.3 [facility] [id number] [place] [address] 77052- 2132 Jun, [facility] [address] [place] [id number] [place] [address] 24015- 9114 Jun, Morbid obesity due to excess calories E66.01 [facility] [address] [place] [address]- 9358 Jun, [facility] [address] [place] [address] 45115- 7023 09 Jun, 2016 Morbid obesity, unspecified obesity type E66.01 [facility] [address] [place] [address] 60678- 9544 03 Jun, 2016 Bipolar disorder F31.9 ; Posttraumatic stress disorder F43.10 and Borderline personality disorder F60.3 [facility] [address] [id number] [place] [address] 59724- 4500 Jun, [facility] [address] [id number] [place] [address] 31717- 6965 Jun, [facility] [address] [place] [id number] [place] [address] 73161- 0318 Jun, Acquired hypothyroidism E03.9 and Morbid obesity due to excess calories E66.01 [facility] [address] [place] [address] 21108- 6924 May, Bipolar disorder F31.9 ; Posttraumatic stress disorder F43.10 and Borderline personality disorder F60.3 [facility] [address] [place] [address] 64243- 9260 Apr, Bipolar 1 disorder F31.9 ; Posttraumatic stress disorder F43.10 and Social anxiety disorder F40.[address] [place] [place] [address] [id number] [place] [id number] Apr, Encounter for dental examination Z01.20 [facility] [address] [place] [address] 89929- 4152 Apr, [facility] [address] [place] [id number] [place] [address] 67353- 9355 Apr, Acquired hypothyroidism E03.9 [facility] [address] [place] [address] 19281- 6765 Apr, Acquired hypothyroidism E03.9 [facility] [id number] [place] [address] 07105- 3880 Apr, Bipolar disorder F31.9 ; Posttraumatic stress disorder F43.10 and Borderline personality disorder F60.3 [facility] [id number] [place] [address] 49405- 6740 Apr, Acquired hypothyroidism E03.[address] [place] [place] [address] [id number] [place] [id number] Mar, Encounter for dental examination and cleaning without abnormal findings Z01.20 [facility] [id number] [place] [address] 80481- 3598 Mar, [facility] [address] 15299- 0471 Mar, Bipolar disorder F31.9 ; Posttraumatic stress disorder F43.10 and Borderline personality disorder F60.3 [place] [address] 45778- 8145 Mar, Essential (primary) hypertension I10 [facility] [address] [id number] [place] [address] 76738- 9370 Feb, [facility] [address] [id number] [place] [address] 29243- 4286 Feb, [facility] [address] [id number] [place] [address] 34171- 1784 Feb, Pelvic pain R10.2 ; Lipid screening Z13.220 ; Fatigue, unspecified type R53.83 and Weight gain R63.5 [facility] [id number] [place] [address] 40772- 0605 Feb, Bipolar disorder F31.9 ; Posttraumatic stress disorder F43.10 and Borderline personality disorder F60.3 [facility] [id number] [place] [address] 46563- 4921 Feb, [facility] [id number] [place] [address] 82639- 5434 Feb, [facility] [id number] [place] [address] 77286- 3921 30 Jan, 2016 Obstructive sleep apnea syndrome G47.33 [facility] [id number] [place] [address] 85548- 7385 26 Jan, 2016 [facility] [address] [place] [address] AVE [id number] [place] [id number] 19 Jan, 2016 Dental examination Z01.20 [facility] [address] [id number] [place] [address] 04847- 5048 13 Jan, 2016 Bipolar 1 disorder F31.9 ; Posttraumatic stress disorder F43.10 and Social anxiety disorder F40.10 [place] [address] [place] [id number] [place] [address] 61773- 9353 Jan, Bipolar disorder F31.9 ; Posttraumatic stress disorder F43.10 and Borderline personality disorder F60.3 [facility] [address] 42251- 4714 Jan, Sciatica of left side M54.32 [facility] [address] [id number] [place] [address] 99481- 2568 Jan, [facility] [address] [place] [id number] [place] [address] 58906- 7514 Dec, [facility] [id number] [place] [address] 43594- 7950 Dec, [facility] [address] [place] [id number] [place] [address] 84901- 8967 Dec, Bipolar disorder F31.9 ; Posttraumatic stress disorder F43.10 and Borderline personality disorder F60.3 [facility] [address] [id number] [place] [address] 49817- 3677 Nov, [facility] [id number] [place] [address] 17710- 6210 Nov, Insomnia, unspecified type G47.00 [facility] [id number] [place] [address] 17137- 4335 Nov, Bipolar disorder F31.9 ; Posttraumatic stress disorder F43.10 and Borderline personality disorder F60.3 [facility] [address] [place] [address] 64060- 4898 Nov, [facility] [address] [place] [address] 13222- 3580 Nov, [facility] [address] [id number] [place] [address] 70624- 8533 Oct, Bipolar disorder F31.9 ; Posttraumatic stress disorder F43.10 and Borderline personality disorder F60.3 [facility] [address] [id number] [place] [address] 96573- 4480 Oct, [facility] [address] [place] [id number] [place] [address] 38164- 8077 Oct, Essential (primary) hypertension I10 [facility] [address] [id number] [place] [address] 60323- 9451 September, Bipolar 1 disorder F31.9 ; Posttraumatic stress disorder F43.10 and Social anxiety disorder F40.10 [facility] [address] [place] [address] 60347- 8606 September, Bipolar disorder F31.9 ; Posttraumatic stress disorder F43.10 and Borderline personality disorder F60.[address] [place] [id number] SPRINGS[place] [id number] September, Encounter for dental examination and cleaning without abnormal findings Z01.20 [facility] [address] [address]- 7992 September, [facility] [address] [place] [address] 25958- 7076 September, [facility] [address] [place] [address] 48737- 9132 Aug, [facility] [address] [place] [address] 05824- 8425 Aug, Bipolar disorder F31.9 ; Posttraumatic stress disorder F43.10 and Borderline personality disorder F60.3 [facility] [address] [address]- 0650 Aug, [facility] [address] [address]- 0448 Aug, [facility] [address] [place] [address] 39138- 6466 Aug, [facility] [id number] [id number] 28 Jul, 2015 Acute nasopharyngitis [common cold] J00 and Other viral agents as the cause of diseases classified elsewhere B97.89 [facility] [address] [place] [address] 92691- 0917 24 Jul, 2015 Chronic pain G89.29 and Allergic rhinitis J30.9 [facility] [address] [place] [address] 03427- 7600 24 Jul, 2015 Bipolar 1 disorder F31.9 ; Posttraumatic stress disorder F43.10 and Social anxiety disorder F40.10 [facility] [address] [place] [address] 03866- 1425 16 Jul, 2015 Bipolar 1 disorder F31.9 [facility] [address] [place] [address] 96553- 9705 16 Jul, 2015 Bipolar disorder F31.9 ; Posttraumatic stress disorder F43.10 and Borderline personality disorder F60.3 [facility] [address] [address]- 1560 14 Jul, 2015 [facility] [address] [place] [address] 13578- 1506 14 Jul, 2015 [facility] [address] [place] [address] 14171- 0878 11 Jul, 2015 [facility] [address] [address]- 3176 10 Jul, 2015 Anxiety F41.9 [place] [address] [address]- 3455 10 Jul, 2015 Chronic pain G89.29 and Encounter for therapeutic drug level monitoring Z51.81 [facility] [address] [place] [address] 56057 2541 09 Jul, 2015 Chronic pain G89.29 and Encounter for therapeutic drug level monitoring Z51.81 [facility] [id number] [place] [address] 74872- 6982 08 Jul, 2015 [facility] [id number] [place] [address] 33543- 4549 Jun, [facility] [id number] [place] [address] 19396- 3141 Jun, [facility] [id number] [place] [address] 15398- 2437 Jun, [facility] [id number] [place] [address] 81488- 254 Jun, [facility] [address] [place] [address] 71674- 7540 Jun, High risk medication use V58.69 [facility] [address] [address]- 2525 Jun, [facility] [address] [address]- 9980 Jun, Bipolar 1 disorder F31.9 ; Overdose T50.901A and Chronic pain G89.29 [facility] [address] [address] 2548 Jun, Bipolar disorder F31.9 ; Posttraumatic stress disorder F43.10 and Borderline personality disorder F60.3 [facility] [address] [address]- 2546 08 Jun, 2015 [facility] [address] [place] [address] 22428- 7926 Jun, [facility] [address] [place] [address] 05623- 9136 Jun, Keloid L91.0 [facility] [address] [place] [address] 93933- 7955 Jun, [facility] [id number] [place] [address] 00942- 1003 May, [facility] [id number] [place] [address] 04833- 8770 May, [facility] [id number] [place] [address] 69090- 3291 May, Pelvic pain R10.2 [facility] [id number] [place] [address] 04230- 5952 May, [facility] [id number] [place] [address] 23888- 1834 May, Pain of left thumb M79.645 ; Incisional pain R20.8 ; Pelvic pain R10.2 and Essential hypertension I10 [facility] [address] [place] [address] 69341- 0953 May, [facility] [address] [place] [address] 26685- 3803 May, [address] [id number] [place] [id number] May, Dental examination Z01.20 and Necrosis of pulp K04.1 [facility] [address] [place] [id number]- [phone] Apr, [facility] [id number] [place] [address] 19446- 4392 Apr, [facility] [id number] [place] [id number]- [phone] Apr, [facility] [id number] [place] [phone]- [phone] 08 Apr, 2014 [facility] [place] [facility] [address] [id number] [place] [address] 08 Apr, 2014 [facility] [place] [facility] [address] [id number] [place] [address] Apr, 2014 [facility] [place] [facility] [address] [id number] [place] [address] Apr, 2014 [facility] [place] [facility] [address] [id number] [place] [address] Apr, 2014 [facility] [place] [facility] [address] [id number] [place] [address] Mar, [facility] [place] [facility] [address] [id number] [place] [address] Mar, [facility] [place] [facility] [address] [id number] [place] [address] Mar, [facility] [place] [facility] [address] [id number] [place] [address] Mar, [facility] [place] [facility] [address] [id number] [place] [address] 6044 30 Feb, 2015 [facility] [place] [facility] [address] [id number] [place] [address] 2889 Feb, [facility] [place] [facility] [address] [id number] [place] [address] 1587 Feb, 2014 [facility] [place] [facility] [address] [id number] [place] [address]- 6896 Feb, 2014 [facility] [place] [facility] [address] [id number] [place] [address] Feb, 2014 [facility] [place] [facility] [address] [id number] [place] [address] 8025 19 Feb, 2014 [facility] [place] [facility] [address] [id number] [place] 1330 16 Feb, 2014 [facility] [place] [facility] [id number] [place] [address] 83352- 2026 Feb, Dermatofibroma of left lower leg D23.72 [facility] [id number] [place] [address] 88077- 1825 Feb, Hematochezia 578.1 ; Low back pain M54.5 ; High risk medication use V58.69 ; Cervicalgia M54.2 and Anxiety F41.9 [id number] [id number] Feb, Dental examination Z01.20 ; Pulpitis K04.0 and Dental caries, unspecified K02.9 [id number] [place] [address] [id number] Feb, Dental examination Z01.20 [facility] [id number] [place] [address] 94356- 1928 Jan, [facility] [id number] [place] [address] 73703- 3654 Jan, [facility] [id number] [place] [address] 02896- 7953 Jan, [facility] [id number] [place] [address] 08651- 1110 Jan, [facility] [id number] [place] [address] 28391- 8360 Dec, [facility] [id number] [place] [address] 84895- 7726 Dec, [facility] [id number] [place] [address] 96996- 7333 Dec, [facility] [id number] [place] [address] 91257- 5596 Dec, [facility] [id number] [place] [address] 26486- 8527 Dec, [facility] [id number] [place] [address] 30311- 8718 Dec, [facility] [address] [id number] [place] [address]- 5251 Dec, [facility] [address] [facility] [id number] [place] [address]- 7685 Dec, [facility] [address] [id number] [id number] Nov, Encounter for removal of sutures V58.32 [facility] [address] [id number] [place] [address] 2544 Nov, [facility] [address] [id number] [place] [address]- 3190 Nov, [facility] [address] [facility] [id number] [place] [address]- 4221 Nov, [facility] [address] [id number] [place] [address]- 3426 Nov, [facility] [address] [id number] [place] [address]- 3100 Nov, [facility] [address] [facility] [id number] [place] [address]- 4806 Nov, [facility] [address] [facility] [id number] [place] [address]- 3763 Nov, [facility] [address] [facility] [id number] [place] [address]- 4890 Nov, Dermatofibroma 216.9 [facility] [address] [id number] [place] [address]- 2547 Nov, [facility] [address] [facility] [id number] [place] [address]- 7128 Nov, [facility] [address] [facility] [id number] [place] [address]- 6358 Oct, [facility] [address] [facility] [id number] [place] [address]- 9721 Oct, Hematochezia 578.1 ; Abscess 682.9 ; GERD (gastroesophageal reflux disease) 530.81 ; Visual disturbance of one eye 368.9 and High risk medication use V58.69 [facility] [address] 3847 Oct, [facility] [id number] [place] [address] 35921- 3026 Oct, [facility] [id number] [place] [address] 48175- 7525 Oct, [facility] [id number] [place] [address] 257816- 0128 September, [facility] [id number] [place] [address] 348447- 9237 September, [facility] [id number] [place] [address] 90974- 2032 September, [facility] [id number] [place] [address] 38563- 1294 September, [facility] [id number] [place] [address] 867888- 5240 September, [facility] [id number] [place] [address] 24192- 6421 September, Colon cancer screening V76.51 [facility] [id number] [place] [address] [id number]- 5686 September, [facility] [address] [address]- 8519 Aug, [facility] [id number] [place] [address] 17211- 1919 Aug, [facility] [address] [id number] [address]- 0506 Jul, [facility] [id number] [place] [address] 55381- 8179 Jul, [facility] [place] [facility] [address] [id number] [place] [address]- 8772 Jul, [facility] [place] [facility] [address] [id number] [place] [address]- 3599 Jul, [facility] [place] [facility] [address] [id number] [place] [address]- 0696 Jun, [facility] [place] [facility] [address] [id number] [place] [address]- 5354 Jun, [facility] [place] [facility] [address] [id number] [place] [address]- 4737 Jun, [facility] [place] [facility] [address] [id number] [place] [address]- 3480 Jun, [facility] [place] [facility] [address] [id number] [place] [address]- 3011 Jun, [facility] [place] [facility] [address] [id number] [place] [address]- 9737 Jun, [facility] [place] [facility] [address] [id number] [place] [address]- 6656 May, [facility] [place] [facility] [address] [id number] [place] [address]- 2959 May, [facility] [place] [facility] [address] [id number] [place] [address]- 1657 May, [facility] [place] [facility] [address] [id number] [place] [address]- 1961 May, [facility] [place] [facility] [address] [id number] [place] [address]- 5584 May, [facility] [place] [facility] [address] [id number] [place] [address]- 5680 May, [facility] [place] [facility] [address] [id number] [place] [address]- 6760 May, [facility] [place] [facility] [address] [id number] [place] [address]- 1456 May, [facility] [place] [facility] [address] [id number] [place] [address]- 3263 Apr, [facility] [place] [facility] [address] [id number] [place] [address]- 7401 Apr, [facility] [place] [facility] [address] [id number] [place] [address]- 4322 Apr, [facility] [place] [facility] [address] [id number] [place] [address]- 1602 Apr, [facility] [place] [facility] [address] [id number] [place] [address]- 9388 Apr, [facility] [place] [facility] [address] [id number] [place] [address]- 8062 Apr, [facility] [place] [facility] [address] [id number] [place] [address]- 5253 Apr, [facility] [place] [facility] [address] [id number] [place] [address]- 6729 Apr, [facility] [place] [facility] [address] [id number] [place] [address]- 1486 Mar, [facility] [place] [facility] [address] [id number] [place] [address]- 6842 Mar, [facility] [place] [facility] [address] [id number] [place] [address]- 4728 Mar, [facility] [place] [facility] [address] [id number] [place] [address]- 9195 Mar, [facility] [place] [facility] [address] [id number] [place] [address]- 4724 Mar, [facility] [place] [facility] [address] [id number] [place] [address]- 3847 Mar, [facility] [place] [facility] [address] [id number] [place] [address]- 2027 Mar, [facility] [place] [facility] [address] [id number] [place] [address]- 5285 Mar, [facility] [place] [facility] [address] [id number] [place] [address]- 8163 Mar, [facility] [place] [facility] [address] [id number] [place] [address]- 0711 Mar, [facility] [place] [facility] [address] [id number] [place] [address]- 7665 Feb, [facility] [place] [facility] [address] [id number] [place] [address]- 0218 Feb, [facility] [place] [facility] [address] [id number] [place] [address]- 8465 Jan, [facility] [place] [facility] [address] [id number] [place] [address]- 5358 Jan, [facility] [place] [facility] [address] [id number] [place] [address]- 6328 Jan, [facility] [place] [facility] [address] [id number] [place] [address]- 8904 Jan, [facility] [place] [facility] [address] [id number] [place] [address]- 4573 Dec, [facility] [place] [facility] [address] [id number] [place] [address]- 0735 Dec, [facility] [place] [facility] [address] [id number] [place] [address]- 7683 Dec, [facility] [place] [facility] [address] [id number] [place] [address]- 7639 Dec, [facility] [place] [facility] [address] [id number] [place] [address]- 1970 Dec, [facility] [place] [facility] [address] [id number] [place] [address]- 8100 Dec, [facility] [place] [facility] [address] [id number] [place] [address]- 6520 Nov, [facility] [place] [facility] [address] [id number] [place] [address]- 0794 Nov, [facility] [place] [facility] [address] [id number] [place] [address]- 2701 Oct, [facility] [place] [facility] [address] [id number] [place] [address]- 6319 Oct, [facility] [place] [facility] [address] [id number] [place] [address]- 6889 Oct, [facility] [place] [facility] [address] [id number] [place] [address]- 7283 Oct, [facility] [place] [facility] [address] [id number] [place] [address]- 5367 September, [facility] [place] [facility] [address] [id number] [place] [address]- 1918 September, [facility] [place] [facility] [address] [id number] [place] [address]- 8737 September, [facility] [place] [facility] [address] [id number] [place] [address]- 6223 September, [facility] [place] [facility] [address] [id number] [place] [address]- 4473 September, [facility] [place] [facility] [address] [id number] [place] [address]- 7011 September, [facility] [place] [facility] [address] [id number] [place] [address]- 9509 September, [facility] [place] [facility] [address] [id number] [place] [address]- 4961 September, [facility] [place] [facility] [address] [id number] [place] [address]- 3278 Aug, [facility] [place] [facility] [address] [id number] [place] [address]- 1909 Aug, [facility] [place] [facility] [address] [id number] [place] [address]- 6695 Aug, [facility] [address] [id number] [place] [address]- 0301 Aug, [facility] [place] [facility] [address] [id number] [place] [address]- 8749 Aug, [facility] [place] [facility] [address] [id number] [place] [address]- 2461 Aug, [facility] [place] [facility] [address] [id number] [place] [address]- 2221 Jul, [facility] [place] [facility] [address] [id number] [place] [address]- 5647 Jul, [facility] [place] [facility] [address] [facility] [id number] [place] [address]- 9722 Jul, [facility] [place] [facility] [address] [id number] [place] [address]- 2214 Jul, [facility] [address] [id number] [place] [address]- 8946 Jun, [facility] [place] [facility] [address] [facility] [id number] [place] [address]- 1806 Jun, [facility] [place] [facility] [address] [facility] [id number] [place] [address]- 0340 Jun, [facility] [place] [facility] [address] [facility] [id number] [place] [address]- 5189 Jun, [facility] [place] [facility] [address] [id number] [place] [address]- 6805 Jun, [facility] [place] [facility] [address] [id number] [place] [address]- 8945 Jun, [facility] [place] [facility] [address] [id number] [place] [address]- 3205 May, [facility] [place] [facility] [address] [id number] [place] [address]- 2166 May, [facility] [address] [id number] [place] [address]- 0592 May, [facility] [address] [id number] [place] [address]- 0080 May, [facility] [address] [id number] [place] [address]- 1403 May, [facility] [address] [id number] [place] [address]- 3146 May, [facility] [address] [id number] [place] [address]- 2958 May, [facility] [address] [id number] [place] [address]- 3704 May, [facility] [address] [id number] [place] [address]- 4440 Apr, [facility] [place] [id number] Apr, 2013 [facility] [address] [id number] [place] [address]- 3742 Apr, [facility] [address] [id number] [place] [address]- 5702 Apr, [facility] [address] [id number] [place] [address]- 9860 Apr, [facility] [address] [id number] [place] [address]- 1498 Apr, [facility] [address] [id number] [place] [address]- 2769 05 Apr, 2013 [facility] [address] [id number] [place] [address]- 4979 05 Apr, 2013 [facility] [address] [id number] [place] [address]- 5507 04 Apr, 2013 [facility] [address] [id number] [place] [address]- 8979 Mar, [facility] [address] [id number] [place] [address]- 9925 Mar, [facility] [place] [facility] [address] [id number] [place] [address]- 5590 Mar, [facility] [address] [facility] [id number] [place] [address]- 6881 Mar, [facility] [place] [facility] [address] [id number] [place] [address]- 2900 Mar, [facility] [place] [facility] [address] [id number] [place] [address]- 9077 Feb, [facility] [place] [facility] [address] [id number] [place] [address]- 3311 Feb, [facility] [address] [facility] [id number] [place] [address]- 7534 Feb, [facility] [place] [facility] [address] [id number] [place] [address]- 8095 Feb, [facility] [place] [facility] [address] [facility] [id number] [place] [address]- 0012 Jan, [facility] [place] [facility] [address] [facility] [id number] [place] [address]- 9501 24 Jan, 2013 [facility] [place] [facility] [address] [id number] [place] [address]- 6633 Jan, [facility] [place] [facility] [address] [id number] [place] [address]- 1555 Dec, [facility] [place] [facility] [address] [id number] [place] [address]- 2006 Dec, [facility] [place] [facility] [address] [facility] [id number] [place] [address]- 2187 Dec, [facility] [address] [id number][place] [id number] Nov, [facility] [address] [facility] [id number][place] [id number] Oct, [facility] [address] [facility] [id number] [place] [address]- 3036 Oct, [facility] [address] [facility] [id number] [place] [address]- 3908 September, [facility] [address] [id number] [place] [address]- 4198 September, [facility] [address] [facility] [id number] [place] [address]- 4634 September, [facility] [address] [id number] [place] [address]- 9474 September, [facility] [address] [facility] [id number] [place] [address]- 8566 September, [facility] [address] [id number] [place] [address]- 6745 Jul, [facility] [address] [id number] [place] [address]- 9192 Jul, [facility] [address] [id number] [place] [address]- 4346 Jul, [facility] [address] [id number] [place] [address]- 2975 Jul, [facility] [address] [id number] [place] [address]- 0206 Jun, [facility] [place] [facility] [address] [facility] [id number] [place] [address]- 9050 Jun, [facility] [place] [facility] [address] [facility] [id number] [place] [address]- 0094 Jun, [facility] [place] [facility] [address] [facility] [id number] [place] [address]- 6706 Jun, [facility] [place] [facility] [address] [id number] [place] [address]- 8368 May, [facility] [place] [facility] [address] [id number] [place] [address]- 2370 Mar, [facility] [place] [facility] [address] [id number] [place] [address] Mar, [facility] [place] [facility] [address] [id number] [place] [address] Mar, [facility] [place] [facility] [address] [id number] [place] [address] Mar, [facility] [address] [id number] [place] [address] Mar, [facility] [place] [facility] [address] [id number] [place] [address] Mar, [facility] [address] [facility] [id number] [place] [address] Mar, [facility] [address] [id number] [place] [address] Mar, [facility] [address] [facility] [id number] [place] [address] Feb, [facility] [address] [facility] [id number] [place] [address] Feb, [facility] [address] [facility] [id number] [place] [address] Feb, [facility] [place] [facility] [address] [id number] [place] [address] Feb, [facility] [place] [facility] [address] [facility] [id number] [place] [address] Feb, [facility] [place] [facility] [address] [facility] [id number] [place] [address] Feb, [facility] [address] [facility] [id number] [place] [address] Feb, [facility] [address] [id number][place] [id number] Jan, [facility] [address] [id number] [place] [id number] Dec, [facility] [address] [facility] [id number] [place] [id number] Dec, [facility] [address] [id number] [place] [address] Nov, [facility] [place] [facility] [address] [id number] [place] [address], [place] [address] Nov, [facility] [place] [facility] [address] [id number] [place] [address] Oct, [facility] [place] [facility] [address] [id number] [place] [address], [place] [address] Jul, [facility] [place] [facility] [address] [facility] [id number] [place] [address] Jul, [facility] [place] [facility] [address] [facility] [id number] [place] [address] May, [facility] [place] [facility] [address] [id number] [place] [address] May, [facility] [place] [facility] [address] [facility] [id number] [place] [address] Nov, [facility] [place] [facility] [address] [facility] [id number] [place] [address] Mar, [facility] [place] [facility] [address] [id number] [place] [address] Dec, [facility] [place] [facility] [address] [id number] [place] [address] Nov, [facility] [place] [facility] [address] [id number] [place] [address] Aug, [facility] [place] [facility] [address] [id number] [place] [address] Apr, [facility] [place] [facility] [address] [id number] [place] [address] Apr, [facility] [address] [facility] [id number] [place] [address] Mar, [facility] [address] [facility] [id number] [place] [address] Feb, [facility] [address] [facility] [id number] [place] [address] September, [facility] [address] [facility] [id number] [place] [address] Jun, [facility] [address] [facility] [id number] [place] [address] Mar, IMMUNIZATIONS No Known Immunizations SOCIAL HISTORY Never Assessed REASON FOR VISIT 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
--- OUTSIDE RECORDS SUMMARY | 2018-03-15 11:07 | XMS REPORT ---
Author Author SAMI SUAREZ Organization [facility] Address [address] [place] [address] Care Team Providers Care Horseradish Maker Name Role Phone SAMI SUAREZ Unavailable PROBLEMS Type Condition ICD9-CM Code [id number] Code Onset Dates Condition Status SNOMED Code Problem Chronic pain G89.29 Active 42387197 Problem Social anxiety disorder F40.10 Active 22276313 Problem Encounter for dental examination and cleaning without abnormal findings Z01.20 Active 257556861 Problem Essential hypertension I10 Active 78695047 Problem Psoriasis L40.9 Active 4415122 Problem Acquired hypothyroidism E03.9 Active 440652698 Problem Obstructive sleep apnea G47.33 Active 81529688 Problem Morbid obesity, unspecified obesity type E66.01 Active 456465100 Problem Gastro-esophageal reflux disease without esophagitis K21.9 Active 233778359 Problem Pelvic pain R10.2 Active 86390196 Problem Bilateral low back pain with sciatica, sciatica laterality unspecified M54.40 Active 899528618 Problem Borderline personality disorder F60.3 Active 02389717 Problem Bipolar disorder F31.9 Active 04894132 Problem Visual disturbance H53.9 Active 61988380 Problem Overdose T50.901A Active 74477027 Problem Posttraumatic stress disorder F43.10 Active 16858450 Problem Bipolar 1 disorder F31.9 Active 453865611 ALLERGIES No Information SOCIAL HISTORY Never Assessed PLAN OF CARE Activity Details Follow Up 4 Weeks Reason:BH F/U VITAL SIGNS MEDICATIONS Unknown Medications RESULTS No Results PROCEDURES Procedure Date Ordered Result Body Site Psychotherapy, patient &/family, 45 minutes, established patient July 15, 2016 IMMUNIZATIONS No Known Immunizations MEDICAL (GENERAL) HISTORY [...] hernia Hospitalization History Went by ambulance to [facility] as unresponsive 05/2015 Hospitalization History [facility] sent her to [facility] for a psych hold 05/2015
--- OUTSIDE RECORDS SUMMARY | 2018-03-15 11:07 | XMS REPORT ---
Author Author HERBERT MCGOWAN [facility] Address [address] [place] [address] Care Team Providers Care City Treasurer Name Role Phone HERBERT MCGOWAN Unavailable PROBLEMS Type Condition ICD9-CM Code KSH32-OF Code Onset Dates Condition Status SNOMED Code Assessment Obstructive sleep apnea syndrome G47.33 Jan, Active 96315252 Problem Dehydration 276.51 Active 22135484 Problem Hypopotassemia 276.8 Active 97218491 Problem Urinary tract infection, site not specified 599.0 Active 57164254 Problem Visual disturbance H53.9 Active 44126464 Problem Blood in stool 578.1 Active 285762169 Problem Borderline personality disorder F60.3 Active 03269770 Problem Abdominal pain, generalized 789.07 Active 865863397 Problem Posttraumatic stress disorder F43.10 Active 25218018 Problem Chronic pain G89.29 Active 74843354 Problem Bipolar disorder F31.9 Active 07327511 Problem Obstructive sleep apnea G47.33 Active 57580646 Problem Essential (primary) hypertension I10 Active 31282022 Problem Nausea alone 787.02 Active 112581643 Problem Irritable bowel syndrome 564.1 Active 85859790 Problem 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 Active 13042966 Problem Bipolar 1 disorder F31.9 Active 673147081 Problem Overdose T50.901A Active 66747866 Problem Social anxiety disorder F40.10 Active 12297570 Problem Encounter for dental examination and cleaning without abnormal findings Z01.20 Active 793530507 Problem Cervicalgia 723.1 Active 47636937 Problem Hypertrophy of breast 611.1 Active 851680813 Problem Esophageal reflux 530.81 Active 934043256 Problem Essential hypertension, benign 401.1 Active 2579315 Problem Pelvic pain R10.2 Active 54676878 Problem Bilateral low back pain with sciatica, sciatica laterality unspecified M54.40 Active 360963160 Problem Screening mammogram for high-risk patient V76.11 Active 07175907 Problem Other dyspnea and respiratory abnormalities 786.09 Active 316133207 ALLERGIES Unknown Allergies SOCIAL HISTORY No smoking Hx information available PLAN OF CARE VITAL SIGNS MEDICATIONS Unknown Medications RESULTS No Results PROCEDURES No Known procedures IMMUNIZATIONS No Known Immunizations
--- OUTSIDE RECORDS SUMMARY | 2018-03-15 11:07 | XMS REPORT ---
Author Author SAMI SUAREZ [facility] eClinicalWorks Address Unknown Phone Unavailable Care Team Providers Care Floor Specialist Name Role Phone SAMI SUAREZ Unavailable Allergies No Known Allergies Problems Problem Type Condition Code Onset Dates Condition Status Assessment Borderline personality disorder F60.3 Active Assessment Posttraumatic stress disorder F43.10 Active Assessment Bipolar disorder F31.9 Active Problem Dehydration 276.51 Active Problem Pelvic pain [...] Problem Hypertrophy of breast 611.1 Active Medications No Known Medications Procedures Procedure Coding System Code Date Psychotherapy, patient &/family, 45 minutes, established patient CPT-4 51881 November 24, 2015 Results No Known Results Summary Purpose eClinicalWorks Submission
--- OUTSIDE RECORDS SUMMARY | 2018-03-15 11:08 | XMS REPORT ---
Author Author LINDA HELMS [facility] eClinicalWorks Address Unknown Phone Unavailable Care Team Providers Care Flour Mixer Helper Name Role Phone LINDA HELMS CP Unavailable [...] Active Problem Essential hypertension, benign 401.1 Active Assessment Dental caries, unspecified K02.9 Active Assessment Pulpitis K04.0 Active Problem Hypopotassemia 276.8 Active Problem Urinary tract infection, site not specified 599.0 Active Assessment Dental examination Z01.20 Active Problem Blood in stool 578.1 Active Problem Dehydration 276.51 Active Problem Abdominal pain, generalized 789.07 Active Medications No Known Medications Procedures Procedure Coding System Code Date EXTRAC ERUPTED TOOTH/EXPOSED ROOT CPT-4 D7140 Feb 17, 2015 Results No Known Results Summary Purpose eClinicalWorks Submission
--- OUTSIDE RECORDS SUMMARY | 2018-03-15 11:08 | XMS REPORT ---
Author Author HERBERT MCGOWAN Organization [employer] Address Unknown Phone Unavailable Care Team Providers Care Hand Zipper Trimmer Name Role Phone HERBERT MCGOWAN CP Unavailable [...] Instructions Start Date End Date Status Dosage Zolpidem Tartrate [facility] [address]-12 10 MG Orally Once a day 1 tablet at bedtime as needed Results No Known Results Summary Purpose eClinicalWorks Submission
--- OUTSIDE RECORDS SUMMARY | 2018-03-15 11:08 | XMS REPORT ---
Author Author ANGIE PEGUERO Organization [employer] Address Unknown Phone Unavailable Care Team Providers Care Tomography Technologist Name Role Phone ANGIE PEGUERO CP Unavailable Allergies No Known Allergies Problems [...] Instructions Start Date End Date Status Dosage Keflex [facility] [address]-53 500 MG Orally Four times a day Mar 03, 2015 Mar 13, 2015 1 capsule Results No Known Results Summary Purpose eClinicalWorks Submission
--- OUTSIDE RECORDS SUMMARY | 2018-03-15 11:08 | XMS REPORT ---
Author Author SAMI SUAREZ [facility] Address [address] [place] [address] Care Team Providers Care Viscera Washer Name Role Phone SAMI SUAREZ Unavailable PROBLEMS Type Condition ICD9-CM Code XHN07-HE Code Onset Dates Condition Status SNOMED Code Problem Chronic pain G89.29 Active 22781774 Problem Social anxiety disorder F40.10 Active 03497694 Problem Encounter for dental examination and cleaning without abnormal findings Z01.20 Active 975240614 Problem Essential hypertension I10 Active 08784115 Problem Psoriasis L40.9 Active 5799887 Problem Acquired hypothyroidism E03.9 Active 146200497 Problem Obstructive sleep apnea G47.33 Active 15781593 Problem Morbid obesity, unspecified obesity type E66.01 Active 108001810 Problem Gastro-esophageal reflux disease without esophagitis K21.9 Active 943624704 Problem Pelvic pain R10.2 Active 68335553 Problem Bilateral low back pain with sciatica, sciatica laterality unspecified M54.40 Active 944808076 Problem Borderline personality disorder F60.3 Active 34825179 Problem Bipolar disorder F31.9 Active 85412063 Problem Visual disturbance H53.9 Active 43172537 Problem Overdose T50.901A Active 46536859 Problem Posttraumatic stress disorder F43.10 Active 48202277 Problem Bipolar 1 disorder F31.9 Active 334520977 ALLERGIES Substance Reaction Event Type Date Status Sulfamethoxazole-Trimethoprim Unknown Drug Allergy May, Active Iodine Unknown Drug Allergy May, Active Codeine Sulfate Unknown Drug Allergy May, Active Aspirin Unknown Drug Allergy May, Active shell fish Unknown Non Drug Allergy May, Active tape Unknown Non Drug Allergy May, Active strawberries Unknown Non Drug Allergy May, Active tomatoes Unknown Non Drug Allergy May, Active IVP dye Unknown Non Drug Allergy May, Active SOCIAL HISTORY No smoking Hx information available PLAN OF CARE Activity Details Follow Up 4 Weeks Reason:BH F/U VITAL SIGNS MEDICATIONS Unknown Medications RESULTS No Results PROCEDURES Procedure Date Ordered Related Diagnosis Body Site Psychotherapy, patient &/family, 30 minutes, established patient May 21, 2016 IMMUNIZATIONS No Known Immunizations
--- OUTSIDE RECORDS SUMMARY | 2018-03-15 11:08 | XMS REPORT ---
Author Author HERBERT MCGOWAN [facility] eClinicalWorks Address Unknown Phone Unavailable Care Team Providers Care Business Analyst Sales Operations Name Role Phone HERBERT MCGOWAN CP Unavailable [...] Instructions Start Date End Date Status Dosage Dicyclomine HCl [facility] [address]-22 20 MG Orally Four times a day 1 tablet Results No Known Results Summary Purpose eClinicalWorks Submission
--- OUTSIDE RECORDS SUMMARY | 2018-03-15 11:08 | XMS REPORT ---
Author Author SAMI SUAREZ Organization [facility] Address [address] [place] [address] Care Team Providers Care Button Buttonhole Marker Name Role Phone SAMI SUAREZ Unavailable PROBLEMS Type Condition ICD9-CM Code BWC33-RD Code Onset Dates Condition Status SNOMED Code Problem Chronic pain G89.29 Active 95617918 Problem Social anxiety disorder F40.10 Active 09497548 Problem Encounter for dental examination and cleaning without abnormal findings Z01.20 Active 966690739 Problem Essential hypertension I10 Active 97753715 Problem Psoriasis L40.9 Active 0447609 Problem Acquired hypothyroidism E03.9 Active 045829251 Problem Obstructive sleep apnea G47.33 Active 68627657 Problem Morbid obesity, unspecified obesity type E66.01 Active 013629679 Problem Gastro-esophageal reflux disease without esophagitis K21.9 Active 688884434 Problem Pelvic pain R10.2 Active 02963177 Problem Bilateral low back pain with sciatica, sciatica laterality unspecified M54.40 Active 881837386 Problem Borderline personality disorder F60.3 Active 81802721 Problem Bipolar disorder F31.9 Active 87643541 Problem Visual disturbance H53.9 Active 95774661 Problem Overdose T50.901A Active 56613727 Problem Posttraumatic stress disorder F43.10 Active 08546898 Problem Bipolar 1 disorder F31.9 Active 136532813 ALLERGIES No Information SOCIAL HISTORY Never Assessed PLAN OF CARE Activity Details Follow Up 4 Weeks Reason:BH F/U VITAL SIGNS MEDICATIONS Unknown Medications RESULTS No Results PROCEDURES Procedure Date Ordered Result Body Site Psychotherapy, patient &/family, 45 minutes, established patient September 20, 2016 IMMUNIZATIONS No Known Immunizations MEDICAL (GENERAL) [...] hernia Hospitalization History Went by ambulance to [place] as unresponsive 05/2015 Hospitalization History [facility] sent her to [facility] for a psych hold 05/2015
--- OUTSIDE RECORDS SUMMARY | 2018-03-15 11:08 | XMS REPORT ---
Author Author HERBERT MCGOWAN Organization [employer]Works Address Unknown Phone Unavailable Care Team Providers Care E Business Consultant Name Role Phone HERBERT MCGOWAN CP [...] Instructions Start Date End Date Status Dosage Cymbalta [facility] [address]-05 30 MG Orally Once a day Feb 18, 2015 3 capsule Protonix [facility] [address]-70 20 MG Orally Once a day November 05, 2014 1 tablet Zolpidem Tartrate [facility] [address]-86 10 MG Orally Once a day 1 tablet at bedtime as needed Results No Known Results Summary Purpose eClinicalWorks Submission
--- OUTSIDE RECORDS SUMMARY | 2018-03-15 11:08 | XMS REPORT ---
Author Author HERBERT MCGOWAN Organization [employer] Address Unknown Phone Unavailable Care Team Providers Care Physical Therapist Clinic Director Name Role Phone HERBERT MCGOWAN CP Unavailable Allergies No Known Allergies Problems Problem Type Condition Code Onset Dates Condition Status Problem Nausea alone 787.02 Active Problem Essential hypertension, benign 401.1 Active Problem Esophageal reflux 530.81 Active Problem Bilateral low back pain with sciatica, sciatica laterality unspecified M54.40 Active Problem Pelvic pain R10.2 Active Problem Visual disturbance H53.9 Active Problem Hypertrophy of breast 611.1 Active Problem Cervicalgia 723.1 Active Problem Other dyspnea and respiratory abnormalities 786.09 Active Problem Screening mammogram for high-risk patient V76.11 Active Problem Dehydration 276.51 Active Problem Blood in stool 578.1 Active Problem Abdominal pain, generalized 789.07 Active Problem Hypopotassemia 276.8 Active Problem 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 Active Problem Urinary tract infection, site not specified 599.0 Active Problem Irritable bowel syndrome 564.1 Active Medications No Known Medications Results No Known Results Summary Purpose eClinicalWorks Submission
--- OUTSIDE RECORDS SUMMARY | 2018-03-15 11:08 | XMS REPORT ---
Author Author SAMI SUAREZ [facility] Address [address] [place] [address] Care Team Providers Care Multimedia Coordinator Name Role Phone SAMI SUAREZ Unavailable PROBLEMS Type Condition ICD9-CM Code BQU15-HF Code Onset Dates Condition Status SNOMED Code Assessment Bipolar disorder F31.9 13 Jan, 2016 Active 93928119 Problem Dehydration 276.51 Active 41499385 Problem Hypopotassemia 276.8 Active 92478840 Problem Bilateral low back pain with sciatica, sciatica laterality unspecified M54.40 Active 157460179 Problem Urinary tract infection, site not specified 599.0 Active 79574563 Problem Visual disturbance H53.9 Active 67360008 Problem Blood in stool 578.1 Active 556533306 Problem Borderline personality disorder F60.3 Active 76670845 Problem Bipolar disorder F31.9 Active 11940547 Problem Posttraumatic stress disorder F43.10 Active 41125631 Problem Essential (primary) hypertension I10 Active 19754742 Problem Social anxiety disorder F40.10 Active 71485909 Problem Irritable bowel syndrome 564.1 Active 74993177 Problem 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 Active 77450382 Problem Abdominal pain, generalized 789.07 Active 531246549 Problem Overdose T50.901A Active 53993790 Problem Chronic pain G89.29 Active 95328484 Problem Encounter for dental examination and cleaning without abnormal findings Z01.20 Active 916742477 Problem Bipolar 1 disorder F31.9 Active 541923535 Problem Essential hypertension, benign 401.1 Active 0277462 Problem Cervicalgia 723.1 Active 53730015 Problem Nausea alone 787.02 Active 971943791 Problem Esophageal reflux 530.81 Active 144509577 Problem Other dyspnea and respiratory abnormalities 786.09 Active 253682294 Problem Pelvic pain R10.2 Active 78664306 Problem Hypertrophy of breast 611.1 Active 863806769 Problem Screening mammogram for high-risk patient V76.11 Active 69520984 ALLERGIES Unknown Allergies SOCIAL HISTORY No smoking Hx information available PLAN OF CARE VITAL SIGNS MEDICATIONS Unknown Medications RESULTS No Results PROCEDURES Procedure Date Ordered Related Diagnosis Body Site Psychotherapy, patient &/family, 45 minutes, established patient Jan 27, 2016 IMMUNIZATIONS No Known Immunizations
--- OUTSIDE RECORDS SUMMARY | 2018-03-15 11:08 | XMS REPORT ---
Author Author HERBERT MCGOWAN [facility] eClinicalWorks Address Unknown Phone Unavailable Care Team Providers Care Mine Engineer Name Role Phone HERBERT MCGOWAN Unavailable Allergies, Adverse Reactions, Alerts Substance Reaction Event Type sulfa drugs Info Not Available Drug Allergy Codeine Sulfate Info Not Available Drug Allergy Aspirin Info Not Available Drug Allergy shell fish Info Not Available Non Drug Allergy IVP dye Info Not Available Non Drug Allergy tape Info Not Available Non Drug Allergy strawberries Info Not Available Non Drug Allergy tomatoes Info Not Available Non Drug Allergy Problems Problem Type Condition Code Onset Dates Condition Status Assessment Chronic pain G89.29 Active Problem Hypertrophy of breast 611.1 Active Assessment Overdose T50.901A Active Problem Screening mammogram for high-risk patient V76.11 Active Assessment Bipolar 1 disorder F31.9 Active Problem Other dyspnea and respiratory abnormalities 786.09 Active Problem Bilateral low back pain with sciatica, sciatica laterality unspecified M54.40 Active Problem Pelvic pain R10.2 Active Problem Overdose T50.901A Active Problem Chronic pain G89.29 Active Problem Urinary tract infection, site not specified 599.0 Active Problem Hypopotassemia 276.8 Active Problem Bipolar 1 disorder F31.9 Active Problem Dehydration 276.51 Active Problem Borderline personality disorder F60.3 Active Problem Visual disturbance H53.9 Active Problem Bipolar disorder F31.9 Active Problem Posttraumatic stress disorder F43.10 Active Problem 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 Active Problem Irritable bowel syndrome 564.1 Active Problem Blood in stool 578.1 Active Problem Abdominal pain, generalized 789.07 Active Problem Essential hypertension, benign 401.1 Active Problem Cervicalgia 723.1 Active Problem Nausea alone 787.02 Active Problem Esophageal reflux 530.81 Active Medications Medication Code System Code Instructions Start Date End Date Status Dosage Lidoderm [facility] [address]-94 5 % Externally Once a day 1 patch to intact skin remove after 12 hours Promethazine HCl [facility] [address]-12 25 MG Orally every 6 hours prn 1 tablet as needed Latuda [facility] [address]-16 40 MG Orally Once a day 1 tablet with food Protonix [facility] [address]-74 20 MG Orally Once a day November 05, 2014 1 tablet Carafate [facility] [address]-74 1 GM Orally 4 times a day 1 tablet on an empty stomach TENS Unit ND 0 device Use as directed Tizanidine HCl [facility] [address]-16 2 MG Orally 2 times a day Feb 18, 2015 1 tablet as needed Cymbalta [facility] [address]-72 60 MG Orally Once a day 1 capsule Loratadine [facility] [address]-58 10 MG October 09, 2013 1 tablet by Oral route 2 times per day Depo-Estradiol [facility] [address]-47 5 MG/ML Intramuscular 1 ml Hyzaar [facility] [address]-48 50-12.5 MG Orally Once a day October 04, 2014 1 tablet Fish Oil [facility] [address]-76 1000 MG Orally Once a day 1 capsule Vagifem [facility] [address]-16 10 MCG Vaginal 1 tablet Combivent Respimat [facility] [address]-93 20-100 MCG/ACT Inhalation Four times a day 1 puff Cymbalta [facility] [address]-97 30 MG Orally Once a day 1 capsule with the 60mg tab she has at home Lamotrigine [facility] [address]-83 25 MG Orally Once a day 1 tablet Hydrocodone-Acetaminophen [facility] [address]-59 7.5-325 MG 2 times a day July 29, 2014 1 tablet by Oral route PRN Albuterol Sulfate [facility] [address]-07 (2.5 MG/3ML) 0.083% Inhalation every 4 hrs 3 ml Imitrex [facility] [address]-59 50 MG Orally Once a day as needed 1 tablet as needed Lipitor [facility] [address]-11 20 MG Orally Once a day 1 tablet Trazodone HCl [facility] [address]-23 50 MG Orally Once a day 1 tablet at bedtime as needed Creon [facility] [address]-79 57254 UNIT Orally 3 times a day before meals December 10, 2014 as directed Procedures Procedure Coding System Code Date Office Visit, Est Pt., Level 3 CPT-4 63902 Jun 24, 2015 No Charge CPT-4 54901 Jun 24, 2015 Vital Signs Date/Time: Jun 24, 2015 Temperature 97.7 F Weight 217.4 lbs Height 62 in BMI 39.76 Index Blood Pressure Diastolic 82 mmHg Blood Pressure Systolic 140 mmHg Cardiac Monitoring Heart Rate 78 bpm Results No Known Results Summary Purpose eClinicalWorks Submission
--- OUTSIDE RECORDS SUMMARY | 2018-03-15 11:08 | XMS REPORT ---
Author Author HERBERT MCGOWAN [facility] eClinicalWorks Address Unknown Phone Unavailable Care Team Providers Care Customs Investigator Name Role Phone HERBERT MCGOWAN CP Unavailable [...]
[2018-03-15 11:09] LABS: MEAN PLATELET VOLUME 9.6 FL (7.4-10.4); RED BLOOD COUNT 3.61 10^6/uL (4.35-5.85); RED CELL DISTRIBUTION WIDTH 12.9 % (10.0-14.5)
--- OUTSIDE RECORDS SUMMARY | 2018-03-15 11:09 | XMS REPORT ---
Author Author ANGIE PEGUERO Organization [employer] Address Unknown Phone Unavailable Care Team Providers Care Operations Support Specialist Name Role Phone ANGIE PEGUERO CP Unavailable [...] infection, site not specified 599.0 Active Assessment Dermatofibroma of left lower leg D23.72 Active Problem Blood in stool 578.1 Active Problem Dehydration 276.51 Active Problem Abdominal pain, generalized 789.07 Active Medications No Known Medications Procedures Procedure Coding System Code Date EXC TR-EXT B9 MARTHA 0.6-1 CM CPT-4 99959 Feb 18, 2015 Results No Known Results Summary Purpose eClinicalWorks Submission
--- OUTSIDE RECORDS SUMMARY | 2018-03-15 11:09 | XMS REPORT ---
Author Author HERBERT MCGOWAN [facility] eClinicalWorks Address Unknown Phone Unavailable Care Team Providers Care Va Underwriter Name Role Phone HERBERT MCGOWAN CP Unavailable [...]
--- OUTSIDE RECORDS SUMMARY | 2018-03-15 11:09 | XMS REPORT ---
Author Author HERBERT MCGOWAN Organization [employer] Address Unknown Phone Unavailable Care Team Providers Care Content Publisher Name Role Phone HERBERT MCGOWAN CP Unavailable [...] Instructions Start Date End Date Status Dosage Loratadine [facility] [address]-64 10 MG October 09, 2013 1 tablet by Oral route 2 times per day Lipitor [facility] [address]-91 20 MG Orally Once a day 1 tablet Results No Known Results Summary Purpose eClinicalWorks Submission
--- OUTSIDE RECORDS SUMMARY | 2018-03-15 11:09 | XMS REPORT ---
Author Author CARYL FRANZ [facility] eClinicalWorks Address Unknown Phone Unavailable Care Team Providers Care Laborer Brush Clearing Name Role Phone CARYL FRANZ CP Unavailable Allergies No Known Allergies Problems [...] Instructions Start Date End Date Status Dosage Lamotrigine [facility] [address]-08 100 MG Orally Once a day 1 tablet Results No Known Results Summary Purpose eClinicalWorks Submission
--- OUTSIDE RECORDS SUMMARY | 2018-03-15 11:09 | XMS REPORT ---
Author Author HERBERT MCGOWAN Organization [employer] Address Unknown Phone Unavailable Care Team Providers Care Civil Defense Director Name Role Phone HERBERT MCGOWAN CP [...] mammogram for high-risk patient V76.11 Active Assessment Pelvic pain R10.2 Active Problem Dehydration 276.51 Active Problem Blood [...]
--- OUTSIDE RECORDS SUMMARY | 2018-03-15 11:09 | XMS REPORT ---
Author Author HERBERT MCGOWAN Organization [employer] Address Unknown Phone Unavailable Care Team Providers Care Technical Services Representative Name Role Phone HERBERT MCGOWAN CP Unavailable Allergies No Known Allergies Problems Problem Type Condition Code Onset Dates Condition Status Problem Other dyspnea and respiratory abnormalities 786.09 Active Problem Bilateral low back pain with sciatica, sciatica laterality unspecified M54.40 Active Problem Pelvic pain R10.2 Active Problem Overdose T50.901A Active Problem Urinary tract infection, site not specified 599.0 Active Problem Chronic pain G89.29 Active Problem Hypopotassemia 276.8 Active Problem Dehydration 276.51 Active Problem Bipolar 1 disorder F31.9 Active Problem Borderline personality disorder F60.3 Active [...] Active Problem Nausea alone 787.02 Active Problem Hypertrophy of breast 611.1 Active Problem Esophageal reflux 530.81 Active Problem Screening mammogram for high-risk patient V76.11 Active Medications Medication Code System Code Instructions Start Date End Date Status Dosage Combivent Respimat [facility] [address]-08 20-100 MCG/ACT Inhalation Four times a day 1 puff Results No Known Results Summary Purpose [employer] Submission
--- OUTSIDE RECORDS SUMMARY | 2018-03-15 11:10 | XMS REPORT ---
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 Active 352782691 Problem Pelvic pain R10.2 Active 11958150 Problem Blindness of right eye H54.40 Active 342463981 Problem Relationship problem with family member Z63.8 Active 478570717 Problem Essential hypertension I10 Active 33727833 Problem Other chronic pain G89.29 Active 75102320 Problem Lumbago with sciatica, left side M54.42 Active 643343193 Problem Bipolar disorder F31.9 Active 86514899 Problem Posttraumatic stress disorder F43.10 Active 34884154 Problem Bilateral low back pain with sciatica, sciatica laterality unspecified M54.40 Active 980730167 Problem Visual disturbance H53.9 Active 85262010 Problem Overdose T50.901A Active 52736924 Problem Social anxiety disorder F40.10 Active 91336543 Problem Borderline personality disorder F60.3 Active 21642183 Problem Obstructive sleep apnea G47.33 Active 60142311 Problem Chronic pain G89.29 Active 17902621 Problem Acquired hypothyroidism E03.9 Active 906621047 ALLERGIES No Information ENCOUNTERS Encounter Location Date Diagnosis [facility] [address] [facility] [id number], [place] [address] Nov, [facility] [address] [facility] [id number], [place] [address] Oct, [facility] [id number] [place] [address] 53651- 2972 Oct, [place] [id number] [place] [address] 54377- 1343 September, 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 [place] [id number] [place] [address] 00462- 8577 September, Bipolar disorder F31.9 ; Posttraumatic stress disorder F43.10 and Borderline personality disorder F60.3 [place] [id number] [place] [address] 36995- 5823 Aug, BMI 40.0-44.9, adult Z68.41 ; Bipolar disorder F31.9 ; Posttraumatic stress disorder F43.10 and Social anxiety disorder F40.10 [place] [id number] [place] [address] 56742- 4828 Aug, Bipolar disorder F31.9 ; Posttraumatic stress disorder F43.10 and Borderline personality disorder F60.3 [place] [id number] [place] [address] 76529- 4315 Aug, 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 [place] [id number] [place] [address] 45623- 4561 Jul, Bipolar disorder F31.9 ; Posttraumatic stress disorder F43.10 and Borderline personality disorder F60.3 [place] [id number] [place] [address] 14935- 1951 Jul, [place] [id number] [place] [address] 25194- 6984 Jun, Bipolar disorder F31.9 ; Posttraumatic stress disorder F43.10 and Borderline personality disorder F60.3 [place] [id number] [place] [address] 87189- 3990 Jun, Blindness of right eye H54.40 and Acquired hypothyroidism E03.9 [place] [id number] [place] [address] 75262- 3843 Jun, [facility] [address] [place] [address] 44470- 8469 May, Posttraumatic stress disorder F43.10 ; Social anxiety disorder F40.10 and Bipolar disorder F31.9 [facility] [address] [place] [address] 82066- 9549 May, Bipolar disorder F31.9 ; Posttraumatic stress disorder F43.10 and Borderline personality disorder F60.3 [place] [id number] [place] [address] 20577- 4460 May, [place] [id number] [place] [address] 49170- 5615 May, [place] [id number] [place] [address] 04440- 2863 Apr, Bipolar disorder F31.9 ; Posttraumatic stress disorder F43.10 and Borderline personality disorder F60.3 [address] [place] [address] [id number] Apr, [place] [id number] [place] [address] 70062- 4220 Apr, [place] [id number] [place] [address] 80881- 6513 Mar, Hydradenitis L73.2 [place] [id number] [place] [address] 18222- 0973 Mar, Lumbago with sciatica, left side M54.42 ; Other chronic pain G89.29 ; Morbid obesity, unspecified obesity type E66.01 ; Hydradenitis L73.2 and BMI 40.0-44.9, adult Z68.41 [place] [id number] [place] [address] 90192- 8383 Mar, Bipolar disorder F31.9 ; Posttraumatic stress disorder F43.10 and Borderline personality disorder F60.3 [place] [id number] [place] [address] 80095- 8579 Mar, Social anxiety disorder F40.10 ; Bipolar disorder F31.9 and Relationship problem with family member Z63.8 [facility] [address] [address] Mar, [facility] [address] [id number] [id number] Mar, Dental examination Z01.20 [facility] [id number] [place] [address] 77561- 9192 Mar, [facility] [address] [place] [address] 65230- 0029 Feb, Bipolar disorder F31.9 ; Posttraumatic stress disorder F43.10 and Borderline personality disorder F60.3 [facility] [id number] [id number] Feb, [facility] [address] [place] [address] 92157- 6936 Jan, Bipolar disorder F31.9 ; Posttraumatic stress disorder F43.10 and Borderline personality disorder F60.[address] [place] [address] [id number] [id number] Jan, [facility] [id number] [address] 0217 Jan, [facility] [id number][place] [id number] Jan, [facility] [address], [place] [address] 7644 Dec, Bipolar disorder F31.9 ; Posttraumatic stress disorder F43.10 and Borderline personality disorder F60.3 [facility] [address] [facility] [id number], [place] [address] 7303 Dec, [facility] [address] [facility] [id number], [place] [address]- 4327 Dec, [facility] [address] [facility] [id number][place] [id number] Dec, [place] [address], [place] [address] 4065 Nov, Bipolar 1 disorder F31.9 ; Posttraumatic stress disorder F43.10 and Social anxiety disorder F40.10 [place] [address] [place] [address] 84064- 7716 Nov, Bipolar disorder F31.9 ; Posttraumatic stress disorder F43.10 and Borderline personality disorder F60.3 [place] [id number] [place] [address] 32360- 6479 Nov, Morbid obesity, unspecified obesity type E66.01 [place] [id number] [place] [address] 96105- 3887 Nov, [address] [address] Oct, Encounter for dental examination and cleaning without abnormal findings Z01.20 [place] [id number] [place] [address] 14506- 2038 Oct, Morbid obesity, unspecified obesity type E66.01 and Acute seasonal allergic rhinitis due to pollen J30.1 [place] [id number] [place] [address] 61815- 0053 Oct, Bipolar disorder F31.9 ; Posttraumatic stress disorder F43.10 and Borderline personality disorder F60.3 [address] [place] [address] 61048- 3768 September, Morbid obesity, unspecified obesity type E66.01 and Psoriasis L40.9 [place] [id number] [place] [address] 79933- 0418 September, Bipolar disorder F31.9 ; Posttraumatic stress disorder F43.10 and Borderline personality disorder F60.3 [place] [address] [place] [address] 46588- 5304 September, Chronic pain G89.29 [place] [id number] [place] [address] 48747- 8175 Aug, Other acute nonsuppurative otitis media of right ear H65.191 and Morbid obesity, unspecified obesity type E66.01 [facility] [address] 27473- 2706 Aug, Bipolar 1 disorder F31.9 ; Posttraumatic stress disorder F43.10 and Social anxiety disorder F40.10 [place] [address] 94286- 2376 Aug, Bipolar disorder F31.9 ; Posttraumatic stress disorder F43.10 and Borderline personality disorder F60.3 [place] [address] 26956- 4178 Jul, Morbid obesity due to excess calories E66.01 ; Gastro- esophageal reflux disease without esophagitis K21.9 and Chronic pain G89.29 [place] [address] 21550- 0630 Jul, Morbid obesity due to excess calories E66.01 [place] [id number] [place] [address] 42141- 7372 Jul, [place] [address] 78068- 0882 Jul, [place] [address] 59108- 3624 Jul, Morbid obesity due to excess calories E66.01 [facility] [id number] [place] [address] 13454- 5246 Jul, Bipolar disorder F31.9 ; Posttraumatic stress disorder F43.10 and Borderline personality disorder F60.3 [facility] [address] 02464- 7208 Jun, [facility] [address] 59530- 3559 Jun, Morbid obesity due to excess calories E66.01 [place] [address] [place] [address]42762- 2546 10 Jun, 2016 [facility] [address] [place] [address] 25605- 4239 09 Jun, 2016 Morbid obesity, unspecified obesity type E66.01 [facility] [address] [place] [address] 67719- 6644 03 Jun, 2016 Bipolar disorder F31.9 ; Posttraumatic stress disorder F43.10 and Borderline personality disorder F60.3 [facility] [address] [place] [address] 46417- 2042 Jun, [facility] [id number] [place] [address] 60611- 5765 Jun, [facility] [id number] [place] [address] 03765- 1493 02 Jun, 2016 Acquired hypothyroidism E03.9 and Morbid obesity due to excess calories E66.01 [facility] [address] [place] [address] 09500- 2307 May, Bipolar disorder F31.9 ; Posttraumatic stress disorder F43.10 and Borderline personality disorder F60.3 [facility] [address] [place] [address] 75479- 3593 Apr, Bipolar 1 disorder F31.9 ; Posttraumatic stress disorder F43.10 and Social anxiety disorder F40.[address] [place] [address] [id number] [id number] Apr, Encounter for dental examination Z01.20 [facility] [address] [place] [address] 09467- 7497 Apr, [facility] [id number] [place] [address] 95779- 6535 Apr, Acquired hypothyroidism E03.9 [facility] [address] [place] [address] 20906- 6957 Apr, Acquired hypothyroidism E03.9 [facility] [id number] [place] [address] 62219- 3263 07 Apr, 2016 Bipolar disorder F31.9 ; Posttraumatic stress disorder F43.10 and Borderline personality disorder F60.3 [facility] [id number] [place] [address] 87098- 7900 Apr, Acquired hypothyroidism E03.9 [facility] [address] [id number] [place] [id number] Mar, Encounter for dental examination and cleaning without abnormal findings Z01.20 [facility] [id number] [place] [address] 61771- 0873 Mar, [facility] [address] 93757- 5939 Mar, Bipolar disorder F31.9 ; Posttraumatic stress disorder F43.10 and Borderline personality disorder F60.3 [place] [address] 61088- 4687 Mar, Essential (primary) hypertension I10 [facility] [id number] [place] [address] 42311- 2135 Feb, [facility] [address] 94263- 6943 Feb, [facility] [id number] [place] [address] 40019- 3926 Feb, Pelvic pain R10.2 ; Lipid screening Z13.220 ; Fatigue, unspecified type R53.83 and Weight gain R63.5 [facility] [id number] [place] [address] 88567- 7390 Feb, Bipolar disorder F31.9 ; Posttraumatic stress disorder F43.10 and Borderline personality disorder F60.3 [facility] [id number] [place] [address] 39499- 7834 Feb, [facility] [id number] [place] [address] 55490- 4603 05 Feb, 2016 [facility] [address] [place] [address] 82911- 0477 30 Jan, 2016 Obstructive sleep apnea syndrome G47.33 [facility] [id number] [place] [address] 77099- 6157 26 Jan, [address] [place] [address] [facility] [address] [id number] [place] [address] 19 Jan, 2016 Dental examination Z01.20 [facility] [id number] [place] [address] 80200- 2629 Jan, Bipolar 1 disorder F31.9 ; Posttraumatic stress disorder F43.10 and Social anxiety disorder F40.10 [place] [id number] [place] [address] 24768- 4502 Jan, Bipolar disorder F31.9 ; Posttraumatic stress disorder F43.10 and Borderline personality disorder F60.3 [place] [id number] [place] [address] 37435- 0228 Jan, Sciatica of left side M54.32 [facility] [id number] [place] [address] 25748- 7653 Jan, [facility] [id number] [place] [address] 70898- 1555 Dec, [facility] [id number] [place] [address] 97079- 2350 Dec, [facility] [id number] [place] [address] 91553- 7722 Dec, Bipolar disorder F31.9 ; Posttraumatic stress disorder F43.10 and Borderline personality disorder F60.3 [facility] [id number] [place] [address] 25081- 3144 Nov, [facility] [id number] [place] [address] 36304- 9266 Nov, Insomnia, unspecified type G47.00 [facility] [id number] [place] [address] 89222- 2226 Nov, Bipolar disorder F31.9 ; Posttraumatic stress disorder F43.10 and Borderline personality disorder F60.3 [facility] [address], [place] [address]- 9147 Nov, [facility] [address] [place] [address] 99803- 1305 Nov, [facility] [id number] [place] [address] 17615- 9529 Oct, Bipolar disorder F31.9 ; Posttraumatic stress disorder F43.10 and Borderline personality disorder F60.3 [facility] [id number] [place] [address] 11460- 5442 Oct, [facility] [id number] [place] [address] 22672- 6680 Oct, Essential (primary) hypertension I10 [facility] [address] [place] [address] 72993- 6534 September, Bipolar 1 disorder F31.9 ; Posttraumatic stress disorder F43.10 and Social anxiety disorder F40.10 [facility] [address] [place] [address] 07677- 6708 September, Bipolar disorder F31.9 ; Posttraumatic stress disorder F43.10 and Borderline personality disorder F60.[address] [place] [address] [id number] [place] [id number] September, Encounter for dental examination and cleaning without abnormal findings Z01.20 [facility] [address], [place] [address]- 1532 September, [facility] [address] [place] [address] 80827- 7610 September, [facility] [address] [place] [address] 63642- 6815 Aug, [facility] [address] [place] [address] 09915- 5580 Aug, Bipolar disorder F31.9 ; Posttraumatic stress disorder F43.10 and Borderline personality disorder F60.3 [facility] [address], [place] [address]- 1418 Aug, [facility] [address], [place] [address] 2546 08 Aug, 2015 [facility] [address], [place] [address]- 7941 Aug, [facility] [id number][place] [id number] 28 Jul, 2015 Acute nasopharyngitis [common cold] J00 and Other viral agents as the cause of diseases classified elsewhere B97.89 [facility] [address] [place] [address] 23192- 4440 24 Jul, 2015 Chronic pain G89.29 and Allergic rhinitis J30.9 [facility] [address] [place] [address] 75469- 9185 24 Jul, 2015 Bipolar 1 disorder F31.9 ; Posttraumatic stress disorder F43.10 and Social anxiety disorder F40.10 [facility] [address] [place] [address] 19754- 5455 16 Jul, 2015 Bipolar 1 disorder F31.9 [facility] [address] [place] [address] 52682 2544 16 Jul, 2015 Bipolar disorder F31.9 ; Posttraumatic stress disorder F43.10 and Borderline personality disorder F60.3 [facility] [address], [place] [address]- 0293 14 Jul, 2015 [facility] [address] [place] [address] 83640 2546 14 Jul, 2015 [facility] [address] [place] [address] 17614 2547 11 Jul, 2015 [facility] [address] [place] [address] 87392- 8215 10 Jul, 2015 Anxiety F41.9 [facility] [address], [place] [address]- 6825 10 Jul, 2015 Chronic pain G89.29 and Encounter for therapeutic drug level monitoring Z51.81 [facility] [address] [place] [address] 61274- 7106 09 Jul, 2015 Chronic pain G89.29 and Encounter for therapeutic drug level monitoring Z51.81 [facility] [address] [place] [address] 28097- 8212 08 Jul, 2015 [facility] [address] [place] [address] 69415- 3219 Jun, [facility] [id number] [place] [address] 81792- 0482 Jun, [facility] [id number] [place] [address] 48962- 2827 Jun, [facility] [id number] [place] [address] 20233- 0644 Jun, [facility] [address] [place] [address] 93182- 6306 Jun, High risk medication use V58.69 [facility] [address], [place] [address]- 0774 Jun, [facility] [address], [place] [address]- 4947 Jun, Bipolar 1 disorder F31.9 ; Overdose T50.901A and Chronic pain G89.29 [facility] [address], [place] [address]- 7898 Jun, Bipolar disorder F31.9 ; Posttraumatic stress disorder F43.10 and Borderline personality disorder F60.3 [facility] [address], [place] [address]- 9717 08 Jun, 2015 [facility] [address] [place] [address] 57792- 1735 Jun, [facility] [address], [place] [address]- 2094 Jun, Keloid L91.0 [facility] [address] [place] [address] 39303- 1862 Jun, [facility] [id number] [place] [address] 14979- 3567 May, [facility] [id number] [place] [address] 36587- 5391 May, [facility] [id number] [place] [address] 13964- 8443 May, Pelvic pain R10.2 [facility] [address] [place] [address] 80541- 8561 May, [facility] [id number] [place] [address] 24650- 5695 May, Pain of left thumb M79.645 ; Incisional pain R20.8 ; Pelvic pain R10.2 and Essential hypertension I10 [facility] [address] [place] [address] 14658- 4171 May, [facility] [address] [place] [address] 25744- 9218 May, [address] [id number] [place] [id number] May, Dental examination Z01.20 and Necrosis of pulp K04.1 [facility] [address] [place] [address] 44054- 6033 Apr, [facility] [id number] [place] [address] [id number]- 6858 Apr, [facility] [id number] [place] [address] [id number]- 7347 Apr, [facility] [id number] [place] [address] [id number]- 4552 08 Apr, 2014 [facility] [place] [facility] [address] [id number] [place] [address] 08 Apr, 2014 [facility] [place] [facility] [address] [id number] [place] [address] Apr, 2014 [facility] [place] [facility] [address] [facility] [id number] [place] [address] Apr, 2014 [facility] [place] [facility] [address] [id number] [place] [address] 94[address] Apr, 2014 [facility] [place] [facility] [address] [id number] [place] [address] Mar, [facility] [place] [facility] [address] [id number] [place] [address] Mar, [facility] [place] [facility] [address] [id number] [place] [address] 69[address] Mar, [facility] [place] [facility] [address] [id number], [place] [address] Mar, [facility] [place] [facility] [address] [id number], [place] [address] Feb, [facility] [place] [facility] [address] [id number], [place] [address] Feb, [facility] [place] [facility] [address] [id number], [place] [address] Feb, 2014 [facility] [place] [facility] [address] [id number], [place] [address] Feb, 2014 [facility] [place] [facility] [address] [id number], [place] [address] Feb, 2014 [facility] [place] [facility] [address] [facility] [id number], [place] [address] 19 Feb, 2014 [facility] [place] [facility] [address] [facility] [id number], [place] [address] 16 Feb, 2014 [facility] [place] [facility] [id number] [place] [address] 18586- 6686 Feb, Dermatofibroma of left lower leg D23.72 [facility] [id number] [place] [id number]- 6332 Feb, Hematochezia 578.1 ; Low back pain M54.5 ; High risk medication use V58.69 ; Cervicalgia M54.2 and Anxiety F41.9 [id number] [id number] Feb, Dental examination Z01.20 ; Pulpitis K04.0 and Dental caries, unspecified K02.9 [place] [id number] [place] [id number] Feb, Dental examination Z01.20 [facility] [id number] [place] [address] 49959- 0784 Jan, [facility] [id number] [place] [address] 78929- 4802 Jan, [facility] [id number] [place] [address] 50633- 0339 Jan, [facility] [id number] [place] [address] 47436- 9006 Jan, [facility] [id number] [place] [address] 37433- 8899 Dec, [facility] [id number] [place] [address] 19608- 3755 Dec, [facility] [id number] [place] [address] 48424- 9451 Dec, [facility] [id number] [place] [address] 00059- 9183 Dec, [facility] [id number] [place] [address] 82239- 3360 Dec, [facility] [id number] [place] [address] 90573- 9992 Dec, [facility] [address] [facility] [id number], [place] [address]- 8621 Dec, [facility] [address] [facility] [id number], [place] [address]- 3712 Dec, [facility] [address] [id number] [id number] Nov, Encounter for removal of sutures V58.32 [facility] [address] [id number], [place] [address]- 5884 Nov, [facility] [address] [id number], [place] [address]- 6622 Nov, [facility] [address] [facility] [id number], [place] [address]- 9225 Nov, [facility] [address] [id number], [place] [address] 7195 Nov, [facility] [address] [id number], [place] [address]- 2050 Nov, [facility] [address] [facility] [id number], [place] [address]- 4162 Nov, [facility] [address] [facility] [id number], [place] [address]- 4708 Nov, [facility] [address] [id number], [place] [address] 2501 Nov, Dermatofibroma 216.9 [facility] [address] [id number], [place] [address]- 6982 Nov, [facility] [address] [facility] [id number], [place] [address]- 0591 Nov, [facility] [address] [facility] [id number], [place] [address]- 5942 Oct, [facility] [address] [facility] [id number], [place] [address]- 1569 Oct, Hematochezia 578.1 ; Abscess 682.9 ; GERD (gastroesophageal reflux disease) 530.81 ; Visual disturbance of one eye 368.9 and High risk medication use V58.69 [facility] [address], [place] [address] 9622 Oct, [facility] [address] [id number], [place] [address]- 6501 Oct, [facility] [id number] [place] [address] 09361- 3341 Oct, [facility] [id number] [place] [address] 94509- 0731 September, [facility] [id number] [place] [address] 079444- 8586 September, [facility] [id number] [place] [address] 20098- 1003 September, [facility] [address] [id number], [place] [address]- 2589 September, [facility] [id number] [place] [address] 46380- 5017 September, [facility] [address] [id number], [place] [address]- 5451 September, Colon cancer screening V76.51 [facility] [address], [place] [address]- 5611 September, [facility] [address], [place] [address]- 6885 Aug, [facility] [address] [id number] 7201 Aug, [facility] [address] 3431 Jul, [facility] [address] 5665 Jul, [facility] [place] [facility] [address] [id number] [place] [address]- 5320 Jul, [facility] [place] [facility] [address] [id number] [place] [address]- 5036 Jul, [facility] [place] [facility] [address] [id number] [place] [address]- 1956 Jun, [facility] [place] [facility] [address] [id number] [place] [address]- 5055 Jun, [facility] [place] [facility] [address] [id number] [place] [address]- 7095 Jun, [facility] [place] [facility] [address] [id number] [place] [address]- 4696 Jun, [facility] [place] [facility] [address] [id number] [place] [address]- 0587 Jun, [facility] [place] [facility] [address] [id number] [place] [address]- 2563 Jun, [facility] [place] [facility] [address] [id number] [place] [address]- 2522 May, [facility] [place] [facility] [address] [id number] [place] [address]- 4294 May, [facility] [place] [facility] [address] [id number], [place] [address]- 6074 May, [facility] [place] [facility] [address] [id number], [place] [address]- 6593 May, [facility] [place] [facility] [address] [id number] [place] [address]- 0727 May, [facility] [place] [facility] [address] [id number] [place] [address]- 9399 May, [facility] [place] [facility] [address] [id number] [place] [address]- 7998 May, [facility] [place] [facility] [address] [id number] [place] [address]- 1396 May, [facility] [place] [facility] [address] [id number] [place] [address]- 6125 Apr, [facility] [place] [facility] [address] [id number] [place] [address]- 3414 Apr, [facility] [place] [facility] [address] [id number] [place] [address]- 4647 Apr, [facility] [place] [facility] [address] [id number] [place] [address]- 2827 Apr, [facility] [place] [facility] [address] [id number] [place] [address]- 0575 Apr, [facility] [place] [facility] [address] [id number] [place] [address]- 6255 Apr, [facility] [place] [facility] [address] [id number] [place] [address]- 8192 Apr, [facility] [place] [facility] [address] [id number] [place] [address]- 8428 Apr, [facility] [place] [facility] [address] [id number] [place] [address]- 0721 Mar, [facility] [place] [facility] [address] [id number] [place] [address]- 3030 Mar, [facility] [place] [facility] [address] [id number] [place] [address]- 8396 Mar, [facility] [place] [facility] [address] [id number] [place] [address]- 8582 Mar, [facility] [place] [facility] [address] [id number] [place] [address]- 6106 Mar, [facility] [place] [facility] [address] [id number] [place] [address]- 9948 Mar, [facility] [place] [facility] [address] [id number] [place] [address]- 2843 Mar, [facility] [place] [facility] [address] [id number] [place] [address]- 6866 Mar, [facility] [place] [facility] [address] [id number] [place] [address]- 1245 Mar, [facility] [place] [facility] [address] [id number] [place] [address]- 2238 Mar, [facility] [place] [facility] [address] [id number] [place] [address]- 3167 Feb, [facility] [place] [facility] [address] [id number] [place] [address]- 0894 Feb, [facility] [place] [facility] [address] [id number] [place] [address]- 3004 Jan, [facility] [place] [facility] [address] [id number] [place] [address]- 6640 Jan, [facility] [place] [facility] [address] [id number] [place] [address]- 8138 Jan, [facility] [place] [facility] [address] [id number] [place] [address]- 1768 Jan, [facility] [place] [facility] [address] [id number] [place] [address]- 2321 Dec, [facility] [place] [facility] [address] [id number] [place] [address]- 6297 Dec, [facility] [place] [facility] [address] [id number] [place] [address]- 1575 Dec, [facility] [place] [facility] [address] [id number] [place] [address]- 1789 Dec, [facility] [place] [facility] [address] [id number] [place] [address]- 5189 Dec, [facility] [place] [facility] [address] [id number] [place] [address]- 1862 Dec, [facility] [place] [facility] [address] [id number] [place] [address]- 2604 Nov, [facility] [place] [facility] [address] [id number] [place] [address]- 7523 Nov, [facility] [place] [facility] [address] [id number] [place] [address]- 6611 Oct, [facility] [place] [facility] [address] [id number] [place] [address]- 7937 Oct, [facility] [place] [facility] [address] [id number] [place] [address]- 6952 Oct, [facility] [place] [facility] [address] [id number] [place] [address]- 4765 Oct, [facility] [place] [facility] [address] [id number] [place] [address]- 9432 September, [facility] [place] [facility] [address] [id number] [place] [address]- 5830 September, [facility] [place] [facility] [address] [id number] [place] [address]- 7355 September, [facility] [place] [facility] [address] [id number] [place] [address]- 0390 September, [facility] [place] [facility] [address] [id number] [place] [address]- 3781 September, [facility] [place] [facility] [address] [id number] [place] [address]- 2487 September, [facility] [place] [facility] [address] [id number] [place] [address]- 1615 September, [facility] [place] [facility] [address] [id number] [place] 5451 September, [facility] [place] [facility] [address] [id number] [place] [address]- 3851 Aug, [facility] [place] [facility] [address] [id number] [place] [address]- 0143 Aug, [facility] [place] [facility] [address] [id number] [place] [address]- 9421 Aug, [facility] [address] [id number] [place] [address]- 9141 Aug, [facility] [place] [facility] [address] [id number] [place] 8756 Aug, [facility] [address] [id number] [place] [address]- 2620 Aug, [facility] [place] [facility] [address] [id number] [place] [address]- 2773 Jul, [facility] [place] [facility] [address] [id number] [place] 2150 Jul, [facility] [place] [facility] [address] [facility] [id number] [place] [address]- 4950 Jul, [facility] [place] [facility] [address] [facility] [id number] [place] [address]- 1523 Jul, [facility] [address] [id number] [place] [address]- 3014 Jun, [facility] [place] [facility] [address] [id number] [place] [address]- 0450 Jun, [facility] [address] [facility] [id number] [place] [address]- 6188 Jun, [facility] [place] [facility] [address] [facility] [id number] [place] [address]- 1745 Jun, [facility] [place] [facility] [address] [id number] [place] [address]- 4558 Jun, [facility] [place] [facility] [address] [id number] [place] 6696 Jun, [facility] [place] [facility] [address] [id number] [place] [address]- 7815 May, [facility] [place] [facility] [address] [id number] [place] [address]- 1782 May, [facility] [address] [id number] [place] [address]- 9935 May, [facility] [address] [id number] [place] [address]- 0532 May, [facility] [address] [id number] [place] [address]- 8936 May, [facility] [address] [id number] [place] [address]- 9631 May, [facility] [address] [id number] [place] [address]- 7937 May, [facility] [address] [id number] [place] [address]- 0409 May, [facility] [address] [id number] [place] [address]- 1520 Apr, [facility] [address] [place] [id number] 16 Apr, 2013 [facility] [address] [id number] [place] [address]- 0226 Apr, [facility] [address] [id number] [place] [address]- 0930 Apr, [facility] [address] [id number], [place] [address]- 1191 Apr, [facility] [address] [id number], [place] [address]- 3267 Apr, [facility] [address] [id number] [place] [address]- 0250 05 Apr, 2013 [facility] [address] [id number] [place] [address]- 4001 05 Apr, 2013 [facility] [address] [id number], [place] [address]- 9844 04 Apr, 2013 [facility] [address] [id number], [place] [address]- 8505 Mar, [facility] [place] [facility] [address] [id number], [place] [address]- 5622 Mar, [facility] [place] [facility] [address] [id number], [place] [address]- 8629 Mar, [facility] [place] [facility] [address] [id number], [place] [address]- 8164 Mar, [facility] [place] [facility] [address] [id number], [place] [address]- 2275 Mar, [facility] [place] [facility] [address] [id number] [place] [address]- 7977 Feb, [facility] [place] [facility] [address] [id number], [place] [address]- 2922 Feb, [facility] [place] [facility] [address] [facility] [id number], [place] [address]- 1840 Feb, [facility] [place] [facility] [address] [id number], [place] [address]- 2181 Feb, [facility] [place] [facility] [address] [id number], [place] [address]- 8462 Jan, [facility] [place] [facility] [address] [facility] [id number], [place] [address]- 5092 24 Jan, 2013 [facility] [place] [facility] [address] [id number], [place] [address]- 2467 Jan, [facility] [place] [facility] [address] [id number], [place] [address]- 8415 Dec, [facility] [place] [facility] [address] [id number], [place] [address]- 9795 Dec, [facility] [place] [facility] [address] [facility] [id number], [place] [address]- 2731 Dec, [facility] [address] [id number] [id number] Nov, [facility] [address] [facility] [id number][place] [id number] Oct, [facility] [address] [facility] [id number] [place] [address]- 5110 Oct, [facility] [address] [facility] [id number], [place] [address]- 1630 September, [facility] [address] [facility] [id number] [place] [address]- 9844 September, [facility] [address] [facility] [id number] [place] [address]- 8904 September, [facility] [address] [facility] [id number] [place] [address]- 1116 September, [facility] [address] [facility] [id number] [place] [address]- 7732 September, [facility] [address] [id number], [place] [address]- 5581 Jul, [facility] [place] [facility] [address] [facility] [id number] [place] [address]- 0492 Jul, [facility] [address] [id number] [place] [address]- 5478 Jul, [facility] [address] [id number] [place] [address]- 6976 Jul, [facility] [address] [facility] [id number], [place] [address]- 1100 Jun, [facility] [place] [facility] [address] [facility] [id number], [place] [address]- 0157 Jun, [facility] [place] [facility] [address] [facility] [id number], [place] [address]- 3025 Jun, [facility] [place] [facility] [address] [facility] [id number], [place] [address]- 6926 Jun, [facility] [place] [facility] [address] [facility] [id number], [place] [address]- 9266 May, [facility] [place] [facility] [address] [id number] [place] [address]- 0697 Mar, [facility] [place] [facility] [address] [id number] [place] [address]- 2625 Mar, [facility] [place] [facility] [address] [id number] [place] [address]- 5763 Mar, [facility] [place] [facility] [id number] [place] [address], [place] [address]- 6053 Mar, [facility] [address] [id number] [place] [address]- 2289 Mar, [facility] [place] [facility] [address] [id number] [place] [address]- 2533 Mar, [facility] [address] [facility] [id number] [place] [address]- 9625 Mar, [facility] [address] [facility] [id number] [place] [address]- 8800 Mar, [facility] [address] [facility] [id number] [place] [address]- 6070 Feb, [facility] [address] [facility] [id number] [place] [address]- 0035 Feb, [facility] [address] [facility] [id number], [place] [address]- 4890 Feb, [facility] [place] [facility] [address] [facility] [id number], [place] [address]- 4916 Feb, [facility] [address] [facility] [id number], [place] [address]- 8109 Feb, [facility] [place] [facility] [address] [facility] [id number] [place] [address]- 6376 Feb, [facility] [address] [facility] [id number], [place] [address]- 4096 Feb, [facility] [address] [id number][place] [id number] Jan, [facility] [address] [id number] [place] [id number] Dec, [facility] [address] [id number] [place] [id number] Dec, [facility] [place] [facility] [address] [id number] [place] [address]- 2546 Nov, [facility] [place] [facility] [address] [id number] [place] [address]- 4216 Nov, [facility] [place] [facility] [address] [id number] [place] [address] Oct, [facility] [place] [facility] [address] [id number] [place] [address] Jul, [facility] [place] [facility] [address] [facility] [id number] [place] [address] Jul, [facility] [place] [facility] [address] [facility] [id number] [place] [address] May, [facility] [place] [facility] [address] [id number] [place] [address] May, [facility] [place] [facility] [address] [facility] [id number] [place] [address] Nov, [facility] [place] [facility] [address] [facility] [id number] [place] [address] Mar, [facility] [place] [facility] [address] [id number] [place] [address] Dec, [facility] [place] [facility] [address] [id number] [place] [address] Nov, [facility] [place] [facility] [address] [facility] [id number] [place] [address] Aug, [facility] [place] [facility] [address] [id number] [place] [address] Apr, [facility] [place] [facility] [address] [id number], [place] [address] Apr, [facility] [address] [facility] [id number] [place] [address] Mar, [facility] [address] [facility] [id number], [place] [address] Feb, [facility] [address] [facility] [id number], [place] [address] September, [facility] [address] [facility] [id number], [place] [address] Jun, [facility] [address] [facility] [id number], [place] [address] Mar, IMMUNIZATIONS No Known Immunizations SOCIAL HISTORY Never Assessed REASON FOR VISIT f/u PLAN OF CARE Activity Details Follow Up 4 Weeks Reason: F/U VITAL SIGNS MEDICATIONS Unknown Medications RESULTS No Results PROCEDURES Procedure Date Ordered Result Body Site Psychotherapy, patient &/family, 45 minutes, established patient Apr 26, 2017 INSTRUCTIONS MEDICATIONS ADMINISTERED No Known Medications [...] hernia Hospitalization History Went by ambulance to [facility] as unresponsive 05/2015 Hospitalization History [facility] sent her to [facility] for a psych hold 05/2015
--- OUTSIDE RECORDS SUMMARY | 2018-03-15 11:11 | XMS REPORT ---
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 Name Role Phone RICHA GAMING Unavailable PROBLEMS Type Condition ICD9-CM Code JOU87-FQ Code Onset Dates Condition Status SNOMED Code Problem Acquired hypothyroidism E03.9 Active 871630669 Problem Morbid obesity, unspecified obesity type E66.01 Active 526508747 Problem Gastro-esophageal reflux disease without esophagitis K21.9 Active 974830487 Problem Blindness of right eye H54.40 Active 927794310 Problem Other chronic pain G89.29 Active 33634349 Problem Essential hypertension I10 Active 85540008 Problem Psoriasis L40.9 Active 9435476 Problem Lumbago with sciatica, left side M54.42 Active 831345252 Problem Relationship problem with family member Z63.8 Active 602991832 Problem Visual disturbance H53.9 Active 96837012 Problem Bipolar disorder F31.9 Active 02664177 Problem Pelvic pain R10.2 Active 81329200 Problem Bilateral low back pain with sciatica, sciatica laterality unspecified M54.40 Active 909934544 Problem Chronic pain G89.29 Active 40554931 Problem Overdose T50.901A Active 81750721 Problem Posttraumatic stress disorder F43.10 Active 65487936 Problem Social anxiety disorder F40.10 Active 26780648 Problem Borderline personality disorder F60.3 Active 38643143 Problem Obstructive sleep apnea G47.33 Active 56575753 ALLERGIES Substance Reaction Event Type Date Status [...] Oct, Active ENCOUNTERS Encounter Location Date Diagnosis [facility] [id number] [address] Aug, [facility] [id number] [place] [address] 52360- 8443 Aug, [facility] [id number] [place] [address] 06116- 0995 Jul, Bipolar disorder F31.9 ; Posttraumatic stress disorder F43.10 and Borderline personality disorder F60.3 [facility] [id number] [place] [address] 01235- 6448 Jul, [facility] [id number] [place] [address] 73463- 8077 Jun, Bipolar disorder F31.9 ; Posttraumatic stress disorder F43.10 and Borderline personality disorder F60.3 [facility] [id number] [place] [address] 93656- 6930 Jun, Blindness of right eye H54.40 and Acquired hypothyroidism E03.9 [facility] [id number] [place] [address] 43215- 4088 Jun, [facility] [id number] [place] [address] 12528- 3487 May, Posttraumatic stress disorder F43.10 ; Social anxiety disorder F40.10 and Bipolar disorder F31.9 [facility] [id number] [place] [address] 64374- 1356 May, Bipolar disorder F31.9 ; Posttraumatic stress disorder F43.10 and Borderline personality disorder F60.3 [facility] [id number] [place] [address] 03793- 8745 May, [facility] [id number] [place] [address] 74256- 8344 May, [facility] [id number] [place] [address] 74362- 6230 Apr, Bipolar disorder F31.9 ; Posttraumatic stress disorder F43.10 and Borderline personality disorder F60.3 [facility] [id number] [id number] Apr, [facility] [id number] [place] [address] 95523- 7053 Apr, [facility] [id number] [place] [address] 85593- 6138 Mar, Hydradenitis L73.2 [facility] [address] [place] [address] 31174- 4668 15 Mar, 2017 Lumbago with sciatica, left side M54.42 ; Other chronic pain G89.29 ; Morbid obesity, unspecified obesity type E66.01 ; Hydradenitis L73.2 and BMI 40.0-44.9, adult Z68.41 [address] [place] [address] 21641- 4462 Mar, Bipolar disorder F31.9 ; Posttraumatic stress disorder F43.10 and Borderline personality disorder F60.3 [facility] [address] [place] [address] 83352- 4825 Mar, Social anxiety disorder F40.10 ; Bipolar disorder F31.9 and Relationship problem with family member Z63.8 [facility] [id number] [place] [address] 58986- 9044 Mar, [address] [id number] [id number] Mar, Dental examination Z01.20 [facility] [address], [place] [address] 9775 Mar, [id number] [place] [address] 41129- 4553 Feb, Bipolar disorder F31.9 ; Posttraumatic stress disorder F43.10 and Borderline personality disorder F60.3 [facility] [address] [id number] [id number] Feb, [facility] [id number] [address] 5103 Jan, Bipolar disorder F31.9 ; Posttraumatic stress disorder F43.10 and Borderline personality disorder F60.3 [facility] [address] [id number] [id number] Jan, [facility] [address] [address] 10[address] Jan, [facility] [address] [id number] Jan, [facility] [id number] [place] [address] 30582- 8409 Dec, Bipolar disorder F31.9 ; Posttraumatic stress disorder F43.10 and Borderline personality disorder F60.3 [facility] [address] [address] 3774 Dec, [facility] [address] [address] 1275 Dec, [facility] [address] [id number] Dec, [facility] [address] [address] 6437 Nov, Bipolar 1 disorder F31.9 ; Posttraumatic stress disorder F43.10 and Social anxiety disorder F40.10 [facility] [address] [address] 3616 Nov, Bipolar disorder F31.9 ; Posttraumatic stress disorder F43.10 and Borderline personality disorder F60.3 [facility] [address] [address]- 0455 Nov, Morbid obesity, unspecified obesity type E66.01 [facility] [address] [address] 9217 Nov, [facility] [address] [id number] [id number] Oct, Encounter for dental examination and cleaning without abnormal findings Z01.20 [address] [place] [id number] [place] [address] 98115- 9295 15 Oct, 2016 Morbid obesity, unspecified obesity type E66.01 and Acute seasonal allergic rhinitis due to pollen J30.1 [address] [id number] [place] [address] 02128- 3910 08 Oct, 2016 Bipolar disorder F31.9 ; Posttraumatic stress disorder F43.10 and Borderline personality disorder F60.3 [address] [id number] [place] [address] 40124- 4184 September, Morbid obesity, unspecified obesity type E66.01 and Psoriasis L40.9 [address] [id number] [place] [address] 31200- 4668 September, Bipolar disorder F31.9 ; Posttraumatic stress disorder F43.10 and Borderline personality disorder F60.3 [address] [id number] [place] [address] 53967- 8265 September, Chronic pain G89.29 [address] [id number] [place] [address] 10899- 7295 Aug, Other acute nonsuppurative otitis media of right ear H65.191 and Morbid obesity, unspecified obesity type E66.01 [address] [place] [address] [place] [address] 10225- 5960 Aug, Bipolar 1 disorder F31.9 ; Posttraumatic stress disorder F43.10 and Social anxiety disorder F40.10 [address] [address] [place] [address] 75632- 5642 Aug, Bipolar disorder F31.9 ; Posttraumatic stress disorder F43.10 and Borderline personality disorder F60.3 [address] [id number] [place] [address] 51466- 0036 Jul, Morbid obesity due to excess calories E66.01 ; Gastro- esophageal reflux disease without esophagitis K21.9 and Chronic pain G89.29 [facility] [address] [address]- 6538 15 Jul, 2016 Morbid obesity due to excess calories E66.01 [facility] [address] [place] [address] 67927- 7976 06 Jul, 2016 [facility] [address] [place] [address] 33207- 0365 Jul, [facility] [id number] [place] [address] 21403- 3864 Jul, Morbid obesity due to excess calories E66.01 [facility] [id number] [place] [address] 42769- 8562 Jul, Bipolar disorder F31.9 ; Posttraumatic stress disorder F43.10 and Borderline personality disorder F60.3 [facility] [id number] [place] [address] 22163- 2804 16 Jun, 2016 [facility] [id number] [place] [address] 64122- 3489 15 Jun, 2016 Morbid obesity due to excess calories E66.01 [facility] [id number] [place] [address] 43331- 2866 Jun, [facility] [id number] [place] [address] 48559- 3462 09 Jun, 2016 Morbid obesity, unspecified obesity type E66.01 [facility] [id number] [place] [address] 32760- 8164 Jun, Bipolar disorder F31.9 ; Posttraumatic stress disorder F43.10 and Borderline personality disorder F60.3 [facility] [id number] [place] [address] 70637- 6100 Jun, [facility] [id number] [place] [address] 97917- 4102 Jun, [facility] [id number] [place] [address] 73076- 5242 Jun, Acquired hypothyroidism E03.9 and Morbid obesity due to excess calories E66.01 [facility] [address] [place] [address] 71066- 3802 May, Bipolar disorder F31.9 ; Posttraumatic stress disorder F43.10 and Borderline personality disorder F60.3 [facility] [id number] [place] [address] 04400- 2978 Apr, Bipolar 1 disorder F31.9 ; Posttraumatic stress disorder F43.10 and Social anxiety disorder F40.[address] [id number] [id number] 12 Apr, 2016 Encounter for dental examination Z01.20 [facility] [id number] [place] [address] 37653- 3736 08 Apr, 2016 [facility] [id number] [place] [address] 39449- 9428 08 Apr, 2016 Acquired hypothyroidism E03.9 [facility] [id number] [place] [address] 67721- 5061 Apr, Acquired hypothyroidism E03.9 [facility] [id number] [place] [address] 21451- 1425 Apr, Bipolar disorder F31.9 ; Posttraumatic stress disorder F43.10 and Borderline personality disorder F60.3 [facility] [id number] [place] [address] 42411- 6694 06 Apr, 2016 Acquired hypothyroidism E03.[address] [id number] [id number] 23 Mar, 2016 Encounter for dental examination and cleaning without abnormal findings Z01.20 [facility] [id number] [place] [address] 45856- 4445 08 Mar, 2016 [facility] [id number] [place] [address] 31813- 7203 08 Mar, 2016 Bipolar disorder F31.9 ; Posttraumatic stress disorder F43.10 and Borderline personality disorder F60.3 [facility] [address] [place] [address] 89377- 5305 Mar, Essential (primary) hypertension I10 [facility] [id number] [place] [address] 19749- 3950 Feb, [facility] [id number] [place] [address] 44516- 0682 14 Feb, 2016 [facility] [id number] [place] [address] 85391- 6554 11 Feb, 2016 Pelvic pain R10.2 ; Lipid screening Z13.220 ; Fatigue, unspecified type R53.83 and Weight gain R63.5 [facility] [id number] [place] [address] 24115- 5964 11 Feb, 2016 Bipolar disorder F31.9 ; Posttraumatic stress disorder F43.10 and Borderline personality disorder F60.3 [address] [place] [id number] [place] [address] 12755- 7959 07 Feb, 2016 [facility] [id number] [place] [address] 26287- 9778 05 Feb, 2016 [facility] [id number] [place] [address] 43897- 2994 30 Jan, 2016 Obstructive sleep apnea syndrome G47.33 [facility] [id number] [place] [address] 98420- 9671 26 Jan, 2016 [facility] [address] [id number] [id number] 19 Jan, 2016 Dental examination Z01.20 [facility] [id number] [place] [address] 47539- 7193 13 Jan, 2016 Bipolar 1 disorder F31.9 ; Posttraumatic stress disorder F43.10 and Social anxiety disorder F40.10 [facility] [address] [place] [address] 21289- 3719 13 Jan, 2016 Bipolar disorder F31.9 ; Posttraumatic stress disorder F43.10 and Borderline personality disorder F60.3 [facility] [address] [address]- 1615 Jan, Sciatica of left side M54.32 [facility] [id number] [place] [address] 56617- 8186 Jan, [facility] [id number] [place] [address] 62805- 2816 Dec, [facility] [id number] [place] [address] 99759- 0256 Dec, [facility] [id number] [place] [address] 50649- 9661 Dec, Bipolar disorder F31.9 ; Posttraumatic stress disorder F43.10 and Borderline personality disorder F60.3 [facility] [id number] [place] [address] 13594- 6935 Nov, [facility] [id number] [place] [address] 69788- 3499 Nov, Insomnia, unspecified type G47.00 [facility] [id number] [place] [address] 30327- 0410 Nov, Bipolar disorder F31.9 ; Posttraumatic stress disorder F43.10 and Borderline personality disorder F60.3 [facility] [address] [address]- 6696 Nov, [facility] [id number] [place] [address] 26637- 3146 Nov, [facility] [address] [place] [address] 32408- 4250 Oct, Bipolar disorder F31.9 ; Posttraumatic stress disorder F43.10 and Borderline personality disorder F60.3 [facility] [address] [address]- 2706 Oct, [facility] [id number] [place] [address] 07339- 4766 Oct, Essential (primary) hypertension I10 [facility] [address] [place] [address] 89920- 9471 September, Bipolar 1 disorder F31.9 ; Posttraumatic stress disorder F43.10 and Social anxiety disorder F40.10 [facility] [address] [place] [address] 61203- 4666 September, Bipolar disorder F31.9 ; Posttraumatic stress disorder F43.10 and Borderline personality disorder F60.[address] [id number] [id number] September, Encounter for dental examination and cleaning without abnormal findings Z01.20 [facility] [id number] [place] [address] 92688- 4989 September, [facility] [id number] [place] [address] 27362- 2968 September, [facility] [id number] [place] [address] 84072- 8523 Aug, [facility] [id number] [place] [address] 07912- 7265 Aug, Bipolar disorder F31.9 ; Posttraumatic stress disorder F43.10 and Borderline personality disorder F60.3 [facility] [address] [place] [address] 68999- 0196 Aug, [facility] [id number] [place] [address] 34763- 4116 Aug, [facility] [id number] [place] [address] 93140- 1135 Aug, [facility] [id number] [place] [id number] Jul, Acute nasopharyngitis [common cold] J00 and Other viral agents as the cause of diseases classified elsewhere B97.89 [facility] [address] [place] [address] 13612- 7658 24 Mar, 2016 Chronic pain G89.29 and Allergic rhinitis J30.9 [facility] [address] [address]- 2445 24 Jul, 2015 Bipolar 1 disorder F31.9 ; Posttraumatic stress disorder F43.10 and Social anxiety disorder F40.10 [facility] [address] [place] [address] 11142- 3047 16 Jul, 2015 Bipolar 1 disorder F31.9 [facility] [id number] [place] [address] 83647- 9228 16 Jul, 2015 Bipolar disorder F31.9 ; Posttraumatic stress disorder F43.10 and Borderline personality disorder F60.3 [facility] [id number] [place] [address] 26525- 7136 14 Jul, 2015 [facility] [id number] [place] [address] 35301- 6360 14 Jul, 2015 [facility] [id number] [place] [address] 43328- 7045 11 Jul, 2015 [facility] [id number] [place] [address] 21878- 9148 10 Jul, 2015 Anxiety F41.9 [facility] [id number] [place] [address] 31517- 8809 10 Jul, 2015 Chronic pain G89.29 and Encounter for therapeutic drug level monitoring Z51.81 [facility] [address] [place] [address] 39619- 7788 09 Jul, 2015 Chronic pain G89.29 and Encounter for therapeutic drug level monitoring Z51.81 [facility] [address] [place] [address] 48428- 2151 08 Jul, 2015 [facility] [id number] [place] [address] 10841- 0476 Jun, [facility] [id number] [place] [address] 10913- 4233 Jun, [facility] [id number] [place] [address] 17094- 5179 15 Jun, 2015 [facility] [id number] [place] [address] 14342- 8149 15 Jun, 2015 [facility] [id number] [place] [address] 75195- 7293 Jun, High risk medication use V58.69 [facility] [address] 98007- 2962 Jun, [facility] [id number] [place] [address] 57984- 5364 Jun, Bipolar 1 disorder F31.9 ; Overdose T50.901A and Chronic pain G89.29 [facility] [id number] [place] [address] 81435- 7897 Jun, Bipolar disorder F31.9 ; Posttraumatic stress disorder F43.10 and Borderline personality disorder F60.3 [facility] [id number] [place] [address] 60303- 0843 08 Jun, 2015 [facility] [id number] [place] [address] 56375- 9735 Jun, [facility] [id number] [place] [address] 73265- 3273 Jun, Keloid L91.0 [facility] [id number] [place] [address] 06814- 6806 Jun, [facility] [id number] [place] [address] 69976- 2057 May, [facility] [id number] [place] [address] 63714- 1718 May, [facility] [id number] [place] [address] 15650- 6231 May, Pelvic pain R10.2 [facility] [id number] [place] [address] 33897- 5876 May, [facility] [address] [address]- 2115 May, Pain of left thumb M79.645 ; Incisional pain R20.8 ; Pelvic pain R10.2 and Essential hypertension I10 [facility] [address] [address]- 3548 May, [facility] [id number] [place] [address] 60060- 6215 May, [address] [id number] [id number] May, Dental examination Z01.20 and Necrosis of pulp K04.1 [facility] [address] [address]- 4553 Apr, [facility] [id number] [place] [address] 58635- 8246 Apr, [facility] [address] [address]- 3821 Apr, [facility] [id number] [place] [address] [id number]- [phone] Apr, [facility] [id number] [address] Apr, [facility] [id number] [place] [id number]- [phone] Apr, [facility] [id number] [address] Apr, [facility] [id number] [place] [phone]- [phone] Apr, [facility] [id number] [address] Mar, [facility] [id number] [address] Mar, [facility] [id number] [address] Mar, [facility] [id number] [address] Mar, [facility] [address] [facility] [id number] [address] Feb, [facility] [id number] [place] [id number]- [address] Feb, [facility] [address] [facility] [id number] [address] Feb, [facility] [id number] [place] [id number]- [phone] Feb, [facility] [id number], [place] [address] Feb, [facility] [address] [address] Feb, [facility] [address], [place] [address] Feb, [facility] [address], [place] [address] Feb, Dermatofibroma of left lower leg D23.72 [facility] [address] [address] Feb, Hematochezia 578.1 ; Low back pain M54.5 ; High risk medication use V58.69 ; Cervicalgia M54.2 and Anxiety F41.9 [facility] [address] [id number] [id number] Feb, Dental examination Z01.20 ; Pulpitis K04.0 and Dental caries, unspecified K02.9 [facility] [address] [id number] [id number] Feb, Dental examination Z01.20 [facility] [address], [place] [address] 30 Jan, 2015 [facility] [place] [address] [id number] [place] [address] Jan, [facility] [address] [id number] [place] [address] 67[address] Jan, [facility] [address] [id number] [place] [address] 2073 Jan, [facility] [address] [id number] [place] [address] 6961 Dec, [facility] [address] [id number] [place] [address] 8356 Dec, [facility] [address] [id number] [place] [address] 5842 Dec, [facility] [address] [id number] [place] [address] 3911 Dec, [facility] [address] [id number], [place] [address] Dec, [facility] [address] [id number], [place] [address] Dec, [facility] [address] [id number], [place] [address] Dec, [facility] [address] [id number], [place] [address] Dec, [facility] [address] [id number] [id number] Nov, Encounter for removal of sutures V58.32 [facility] [address] [id number] [place] [address] 6414 Nov, [facility] [address] [id number], [place] [address] Nov, [facility] [place] [address] [id number], [place] [address] Nov, [facility] [address], [place] [address] Nov, [facility] [address], [place] [address] Nov, [facility] [address], [place] [address] 98[address] Nov, [facility] [id number] [place] [address] Nov, [facility] [id number] [place] [address] 68[address] Nov, Dermatofibroma 216.9 [facility] [id number] [place] [address] 1849 Nov, [facility] [id number] [place] [address] 8413 Nov, [facility] [address], [place] [address] Oct, [facility] [address], [place] [address] Oct, Hematochezia 578.1 ; Abscess 682.9 ; GERD (gastroesophageal reflux disease) 530.81 ; Visual disturbance of one eye 368.9 and High risk medication use V58.69 [facility] [address]65[address], [place] [address] Oct, [facility] [address], [place] [address] Oct, [facility] [address], [place] [address] 9072 Oct, [facility] [address]65[address], [place] [address] 7615 September, [facility] [address], [place] [address] 31[address] September, [facility] [address] [id number] [place] [address]- 7898 September, [facility] [place] [facility] [address] [id number] [place] [address]- 0774 September, [facility] [place] [facility] [address] [id number] [place] [address]- 2547 September, [facility] [place] [facility] [address] [id number] [place] [address]- 8754 September, Colon cancer screening V76.51 [facility] [place] [facility] [address] [id number] [place] [address]- 8531 September, [facility] [place] [facility] [address] [facility] [id number] [place] [address]- 4769 Aug, [facility] [place] [facility] [address] [facility] [id number] [place] [address]- 0668 Aug, [facility] [place] [facility] [address] [id number] [place] [address]- 4347 Jul, [facility] [place] [facility] [address] [id number] [place] [address]- 4448 Jul, [facility] [place] [facility] [address] [facility] [id number] [place] [address]- 0651 Jul, [facility] [place] [facility] [address] [facility] [id number] [place] [address] Jul, [facility] [place] [facility] [address] [id number] [place] [address]- 4034 Jun, [facility] [place] [facility] [address] [id number] [place] [address] Jun, [facility] [place] [facility] [address] [facility] [id number] [place] [address] Jun, [facility] [place] [facility] [address] [facility] [id number] [place] [address]- 5140 Jun, [facility] [place] [facility] [address] [id number] [place] [address]- 0482 Jun, [facility] [address] [id number] [place] [address]- 5539 Jun, [facility] [place] [facility] [address] [id number] [place] [address]- 3730 May, [facility] [place] [facility] [address] [id number] [place] [address]- 5299 May, [facility] [place] [facility] [address] [id number] [place] [address]- 5283 May, [facility] [place] [facility] [address] [id number] [place] [address]- 3425 May, [facility] [place] [facility] [address] [id number] [place] [address]- 3165 May, [facility] [place] [facility] [address] [id number] [place] [address]- 9296 May, [facility] [address] [id number] [place] [address]- 1370 May, [facility] [place] [facility] [address] [id number] [place] [address]- 3107 May, [facility] [place] [facility] [address] [id number] [place] [address]- 9193 Apr, [facility] [place] [facility] [address] [id number] [place] [address]- 2045 Apr, [facility] [place] [facility] [address] [id number] [place] [address]- 9934 Apr, [facility] [place] [facility] [address] [id number] [place] [address]15 Apr, [facility] [place] [facility] [address] [id number] [place] [address]- 8386 Apr, [facility] [place] [facility] [address] [id number] [place] [address]- 9151 Apr, [facility] [place] [facility] [address] [id number] [place] [address]- 8579 Apr, [facility] [place] [facility] [address] [id number] [place] [address]- 4630 Apr, [facility] [place] [facility] [address] [id number] [place] [address]- 6728 Mar, [facility] [place] [facility] [address] [id number] [place] [address]- 5864 Mar, [facility] [place] [facility] [address] [id number] [place] [address]- 0204 Mar, [facility] [place] [facility] [address] [id number] [place] [address]- 1155 Mar, [facility] [place] [facility] [address] [id number] [place] [address]- 6397 Mar, [facility] [place] [facility] [address] [id number] [place] [address]- 1865 Mar, [facility] [place] [facility] [address] [id number] [place] [address]- 6104 Mar, [facility] [place] [facility] [address] [id number] [place] [address]- 1477 Mar, [facility] [place] [facility] [address] [id number], [place] [address]- 8113 Mar, [facility] [place] [facility] [address] [id number], [place] [address]- 6031 Mar, [facility] [place] [facility] [address] [id number] [place] [address]- 5103 Feb, [facility] [place] [facility] [address] [id number], [place] [address]- 3230 Feb, [facility] [place] [facility] [address] [id number] [place] [address]- 8666 Jan, [facility] [place] [facility] [address] [id number] [place] [address]- 1573 Jan, [facility] [place] [facility] [address] [id number] [place] [address]- 9480 Jan, [facility] [place] [facility] [address] [id number] [place] [address]- 7751 Jan, [facility] [place] [facility] [address] [id number] [place] [address]- 2796 Dec, [facility] [place] [facility] [address] [id number] [place] [address]- 9326 Dec, [facility] [place] [facility] [address] [id number] [place] [address]- 8933 Dec, [facility] [place] [facility] [address] [id number] [place] [address]- 3216 Dec, [facility] [place] [facility] [address] [id number] [place] [address]- 3560 Dec, [facility] [place] [facility] [address] [id number] [place] [address]- 9334 Dec, [facility] [place] [facility] [address] [id number] [place] [address]- 8557 Nov, [facility] [place] [facility] [address] [id number] [place] [address]- 3839 Nov, [facility] [place] [facility] [address] [id number] [place] [address]- 8087 Oct, [facility] [place] [facility] [address] [id number] [place] [address]- 0769 Oct, [facility] [place] [facility] [address] [id number] [place] [address]- 8768 Oct, [facility] [place] [facility] [address] [id number] [place] [address]- 7818 Oct, [facility] [place] [facility] [address] [id number] [place] [address]- 8148 September, [facility] [place] [facility] [address] [id number] [place] [address]- 8721 September, [facility] [place] [facility] [address] [id number] [place] [address]- 9224 September, [facility] [place] [facility] [address] [id number] [place] [address]- 9049 September, [facility] [place] [facility] [address] [id number] [place] [address]- 9746 September, [facility] [place] [facility] [address] [id number] [place] [address]- 9854 September, [facility] [place] [facility] [address] [id number] [place] [address]- 0737 September, [facility] [place] [facility] [address] [id number] [place] [address]- 0599 September, [facility] [place] [facility] [address] [id number] [place] [address]- 3150 Aug, [facility] [place] [facility] [address] [id number] [place] [address]- 5886 Aug, [facility] [place] [facility] [address] [id number] [place] [address]- 7880 Aug, [facility] [place] [facility] [address] [id number] [place] [address]- 1044 Aug, [facility] [place] [facility] [address] [id number] [place] [address]- 5078 Aug, [facility] [place] [facility] [address] [id number] [place] [address]- 0142 Aug, [facility] [place] [facility] [address] [id number] [place] [address]- 1588 Jul, [facility] [place] [facility] [address] [id number] [place] [address]- 7499 Jul, [facility] [place] [facility] [address] [id number], [place] [address]- 8791 Jul, [facility] [place] [facility] [address] [id number] [place] [address]- 3582 Jul, [facility] [place] [facility] [address] [id number] [place] [address]- 4976 Jun, [facility] [place] [facility] [address] [id number] [place] [address]- 3466 Jun, [facility] [place] [facility] [address] [id number] [place] [address]- 1278 Jun, [facility] [place] [facility] [address] [id number] [place] [address]- 8912 Jun, [facility] [place] [facility] [address] [id number] [place] [address]- 6591 Jun, [facility] [place] [facility] [address] [id number] [place] [address]- 4288 Jun, [facility] [place] [facility] [address] [id number] [place] [address]- 5699 May, [facility] [place] [facility] [address] [id number] [place] [address]- 1878 May, [facility] [place] [facility] [address] [facility] [id number] [place] [address]- 2912 May, [facility] [place] [facility] [address] [id number] [place] [address]- 6871 May, [facility] [place] [facility] [address] [id number] [place] [address]- 6064 May, [facility] [place] [facility] [address] [id number] [place] [address]- 0584 May, [facility] [place] [facility] [address] [id number] [place] [address]- 6964 May, [facility] [place] [facility] [address] [id number] [place] [address]- 5271 May, [facility] [place] [facility] [address] [id number] [place] [address]- 1323 16 Apr, 2013 [facility] [address] [place] [id number] 16 Apr, 2013 [facility] [address] [id number] [place] [address]- 5028 16 Apr, 2013 [facility] [address] [id number] [place] [address]- 5627 16 Apr, 2013 [facility] [address] [id number] [place] [address]- 9322 13 Apr, 2013 [facility] [address] [id number] [place] [address]- 0498 Apr, [facility] [address] [id number] [place] [address]- 8405 05 Apr, 2013 [facility] [address] [id number] [place] [address]- 0095 05 Apr, 2013 [facility] [address] [id number] [place] [address]- 7239 04 Apr, 2013 [facility] [address] [id number] [place] [address]- 2393 Mar, [facility] [address] [id number] [place] [address]- 7636 Mar, [facility] [address] [id number] [place] [address]- 1410 Mar, [facility] [address] [id number] [place] [address]- 1493 Mar, [facility] [address] [id number] [place] [address]- 5049 Mar, [facility] [address] [id number] [place] [address]- 3523 Feb, [facility] [address] [id number] [place] [address]- 1100 Feb, [facility] [address] [id number] [place] [address]- 2263 Feb, [facility] [address] [id number] [place] [address]- 3718 Feb, [facility] [address] [id number] [place] [address]- 9948 Jan, [facility] [place] [facility] [address] [id number] [place] [address]- 3473 24 Jan, 2013 [facility] [address] [id number] [place] [address]- 2236 Jan, [facility] [address] [id number] [place] [address]- 0796 Dec, [facility] [address] [id number] [place] [address]- 5031 Dec, [facility] [address] [id number] [place] [address]- 8915 Dec, [facility] [address] [id number] [place] [id number] Nov, [facility] [address] [facility] [facility] [address] [id number] [address] Oct, [facility] [address] [id number], [place] [address]- 3106 Oct, [facility] [address] [id number] [place] [address]- 2546 September, [facility] [address] [id number] [place] [address]- 2546 September, [facility] [place] [facility] [address] [id number] [place] [address]- 8546 September, [facility] [place] [facility] [address] [id number] [place] [address]- 2546 September, [facility] [address] [id number] [place] [address]- 4281 September, [facility] [address] [id number] [place] [address]- 3190 Jul, [facility] [place] [facility] [address] [id number] [place] [address]- 0640 Jul, [facility] [address] [id number] [place] [address]- 8694 Jul, [facility] [place] [facility] [address] [id number] [place] [address]- 6531 Jul, [facility] [address] [id number] [place] [address]- 3854 Jun, [facility] [place] [facility] [address] [id number] [place] [address]- 3364 Jun, [facility] [address] [id number] [place] [address]- 6762 Jun, [facility] [place] [facility] [address] [id number] [place] [address]- 1935 Jun, [facility] [address] [id number] [place] [address]- 4448 May, [facility] [address] [id number] [place] [address]- 0557 Mar, [facility] [place] [facility] [address] [id number], [place] [address]- 0614 Mar, [facility] [place] [facility] [address] [id number], [place] [address]- 0202 Mar, [facility] [place] [facility] [address] [id number] [place] [address]- 5133 Mar, [facility] [place] [facility] [address] [id number] [place] [address]- 6418 Mar, [facility] [place] [facility] [address] [id number] [place] [address]- 8311 Mar, [facility] [place] [facility] [address] [facility] [id number] [place] [address]- 3344 Mar, [facility] [place] [facility] [address] [facility] [id number] [place] [address]- 3184 Mar, [facility] [place] [facility] [address] [facility] [id number] [place] [address]- 3499 Feb, [facility] [place] [facility] [address] [facility] [id number] [place] [address]- 4452 Feb, [facility] [place] [facility] [address] [facility] [id number] [place] [address]- 8092 Feb, [facility] [place] [facility] [address] [facility] [id number] [place] [address]- 8198 Feb, [facility] [place] [facility] [address] [facility] [id number] [place] 3340 Feb, [facility] [place] [facility] [address] [facility] [id number] [address] Feb, [facility] [place] [facility] [address] [facility] [id number], [place] [address] Feb, [facility] [address] [facility] [id number] [id number] Jan, [facility] [address] [facility] [id number] [place] [id number] Dec, [facility] [id number] [id number] Dec, [facility] [place] [facility] [address] [facility] [id number], [place] [address] Nov, [facility] [place] [facility] [address] [facility] [id number], [place] [address] Nov, [facility] [place] [facility] [address] [facility] [id number], [place] [address] Oct, [facility] [place] [facility] [address] [facility] [id number] [address] Jul, [facility] [place] [facility] [address] [facility] [id number], [place] [address] Jul, [facility] [id number] [address] May, [facility] [id number] [address] May, [facility] [id number] [address] Nov, [facility] [id number] [address] Mar, [facility] [id number] [place] [address] Dec, [facility] [id number] [place] [address] Nov, [facility] [id number] [place] [address] Aug, [facility] [id number] [address] Apr, [facility] [id number] [address] Apr, [facility] [id number] [address] Mar, [facility] [id number] [address] Feb, [facility] [id number] [address] September, [facility] [id number] [address] Jun, [facility] [id number] [address] Mar, IMMUNIZATIONS No Known Immunizations SOCIAL HISTORY Never Assessed REASON FOR VISIT 6mrc PLAN OF CARE Activity Details Follow Up restorative appt./6MRC Reason: VITAL SIGNS MEDICATIONS Medication Instructions Dosage Frequency Start Date End Date Duration Status Levothyroxine Sodium 25 MCG 1 tablet on an empty stomach in the morning Once a day Orally 30 day(s) 30 90 Active Triamcinolone Acetonide 0.5 % Externally Twice a day 1 application to affected area 12h September, Active Loratadine 10 mg Orally 2 times a day 1 tablet 12h September, 90 days Active Imitrex 50 mg Orally Once a day 1 tablet as needed at start of migraine 24h 30 Active Lamotrigine 150 MG Orally Once a day 1 tablet 24h Active Combivent Respimat 20-100 MCG/ACT Inhalation Four times a day 1 puff 6h 30 Active Losartan Potassium-HCTZ 50-12.5 MG Orally Once a day 1 tablet 24h 90 Active Tizanidine HCl 2 MG Orally Once a day 1 tablet as needed 24h 06 Feb, 2015 90 days Active Oxygen 2 L/NC Active Gabapentin 300 MG Orally 3 times a day 1 tablet 8h Active Fish Oil 300 MG Orally Once a day 1 capsule 24h Active Depo-Estradiol 5 MG/ML Intramuscular once monthly 1 ml Active Lipitor 20 mg Orally Once a day 1 tablet 24h 90 Active Doxepin HCl 10 mg Orally Once at bedtime for sleep 1 capsule at bedtime September, Active Dicyclomine HCl 20 mg 1 tablet Four times a day Orally 30 days 90 Active Carafate 1 GM Orally 4 times a day 1 tablet on an empty stomach 6h 90 Active Cymbalta 60 mg Orally Once a day with Cymbalta 30mg. Total dose is 90mg 1 capsule Active Creon 88042 UNIT Orally 3 times a day 1 capsule before meals 8h Nov, 90 days Active Contrave 8-90 MG Orally Twice a day 2 tablets 12h Jun, 30 days Active Cymbalta 30 MG Orally Once a day with Cymbalta 60mg. Total dose 90mg 1 capsule along with 60mg Active Atorvastatin Calcium 20 MG Orally Once a day 1 tablet 24h Active RESULTS No Results PROCEDURES Procedure Date Ordered Result Body Site PERIODIC ORAL EXAMINATION November 01, 2016 INTRAORL-PERIAPICAL 1 FILM 32231 November 01, 2016 PROPHYLAXIS - ADULT November 01, 2016 VERTICAL BITEWINGS - 7 TO 8 FILMS November 01, 2016 INSTRUCTIONS MEDICATIONS ADMINISTERED No Known Medications MEDICAL [...] hernia Hospitalization History Went by ambulance to [place] as unresponsive 05/2015 Hospitalization History [place] sent her to [facility] for a psych hold 05/2015
--- OUTSIDE RECORDS SUMMARY | 2018-03-15 11:12 | XMS REPORT ---
Author Author CARYL FRANZ Organization [facility] Address [address] [place] [address] Care Team Providers Care Tapper Bit Name Role Phone OSEILOWELLA Unavailable PROBLEMS Type Condition ICD9-CM Code QSE67-HK Code Onset Dates Condition Status SNOMED Code Problem Acquired hypothyroidism E03.9 Active 869956754 Problem Morbid obesity, unspecified obesity type E66.01 Active 548957658 Problem Gastro-esophageal reflux disease without esophagitis K21.9 Active 383397673 Problem Blindness of right eye H54.40 Active 788715138 Problem Other chronic pain G89.29 Active 07619334 Problem Essential hypertension I10 Active 89413912 Problem Psoriasis L40.9 Active 4402340 Problem Lumbago with sciatica, left side M54.42 Active 897584017 Problem Relationship problem with family member Z63.8 Active 542383194 Problem Visual disturbance H53.9 Active 12655708 Problem Bipolar disorder F31.9 Active 83507733 Problem Pelvic pain R10.2 Active 76699677 Problem Bilateral low back pain with sciatica, sciatica laterality unspecified M54.40 Active 388366631 Problem Chronic pain G89.29 Active 50212499 Problem Overdose T50.901A Active 40990245 Problem Posttraumatic stress disorder F43.10 Active 65861497 Problem Social anxiety disorder F40.10 Active 73906341 Problem Borderline personality disorder F60.3 Active 92457172 Problem Obstructive sleep apnea G47.33 Active 79692403 ALLERGIES No Information ENCOUNTERS Encounter Location Date Diagnosis [facility] [id number] [address] Aug, [facility] [id number] [address] Aug, [facility] [id number] [address] 9[address] Jul, Bipolar disorder F31.9 ; Posttraumatic stress disorder F43.10 and Borderline personality disorder F60.3 [facility] [address] [place] [address] 17738- 2568 Jul, [facility] [address] [place] [address] 04466- 2417 Jun, Bipolar disorder F31.9 ; Posttraumatic stress disorder F43.10 and Borderline personality disorder F60.3 [facility] [id number] [place] [address] 64586- 5875 Jun, Blindness of right eye H54.40 and Acquired hypothyroidism E03.9 [facility] [id number] [place] [address] 13502- 8613 Jun, [facility] [id number] [place] [address] 12610- 3107 May, Posttraumatic stress disorder F43.10 ; Social anxiety disorder F40.10 and Bipolar disorder F31.9 [facility] [address] [place] [address] 84581- 7456 May, Bipolar disorder F31.9 ; Posttraumatic stress disorder F43.10 and Borderline personality disorder F60.3 [facility] [address] [place] [address] 24756- 1812 May, [facility] [address] [place] [address] 24205- 9630 May, [facility] [address] [place] [address] 25657- 6020 Apr, Bipolar disorder F31.9 ; Posttraumatic stress disorder F43.10 and Borderline personality disorder F60.3 [id number] [id number] Apr, [facility] [address] [place] [address] 09008- 3646 Apr, [facility] [address] [place] [address] 15987- 5618 Mar, Hydradenitis L73.2 [address] [place] [address] 73536- 6589 15 Mar, 2017 Lumbago with sciatica, left side M54.42 ; Other chronic pain G89.29 ; Morbid obesity, unspecified obesity type E66.01 ; Hydradenitis L73.2 and BMI 40.0-44.9, adult Z68.41 [address] [id number] [place] [address] 67420- 9188 Mar, Bipolar disorder F31.9 ; Posttraumatic stress disorder F43.10 and Borderline personality disorder F60.3 [place] [id number] [place] [address] 90705- 4442 Mar, Social anxiety disorder F40.10 ; Bipolar disorder F31.9 and Relationship problem with family member Z63.8 [id number] [place] [address] 99297- 6812 Mar, [address] [id number] [id number] Mar, Dental examination Z01.20 [address] [place] [address] 88714- 7193 Mar, [address] [place] [address] 53287- 1268 Feb, Bipolar disorder F31.9 ; Posttraumatic stress disorder F43.10 and Borderline personality disorder F60.3 [facility] [address] [id number] [id number] Feb, [address] [address] [place] [address] 34319- 8115 14 Jan, 2017 Bipolar disorder F31.9 ; Posttraumatic stress disorder F43.10 and Borderline personality disorder F60.3 [facility] [address] [id number] [id number] Jan, [address] [place] [address] 06445- 7249 Jan, [facility] [address] [id number] [place] [id number] Jan, [address] [place] [address] 42347- 0072 Dec, Bipolar disorder F31.9 ; Posttraumatic stress disorder F43.10 and Borderline personality disorder F60.3 [address] [place] [address] 11514- 0168 Dec, [address] [place] [address] 29571- 1872 Dec, [facility] [id number] [place] [id number] Dec, [address] [place] [address] 31948- 5513 Nov, Bipolar 1 disorder F31.9 ; Posttraumatic stress disorder F43.10 and Social anxiety disorder F40.10 [address] [address] [place] [address] 16851- 5089 Nov, Bipolar disorder F31.9 ; Posttraumatic stress disorder F43.10 and Borderline personality disorder F60.3 [address], [place] [address]- 7628 Nov, Morbid obesity, unspecified obesity type E66.01 [address], [place] [address] 3[address] Nov, [address] [id number][place] [id number] Oct, Encounter for dental examination and cleaning without abnormal findings Z01.20 [address] [id number] [place] [address] 60226- 0243 15 Oct, 2016 Morbid obesity, unspecified obesity type E66.01 and Acute seasonal allergic rhinitis due to pollen J30.1 [address] [address] [place] [address] 57644- 7020 Oct, Bipolar disorder F31.9 ; Posttraumatic stress disorder F43.10 and Borderline personality disorder F60.3 [address] 82009- 3959 September, Morbid obesity, unspecified obesity type E66.01 and Psoriasis L40.9 [address] [address] 06853- 9479 September, Bipolar disorder F31.9 ; Posttraumatic stress disorder F43.10 and Borderline personality disorder F60.3 [address] [address] 42797- 7159 September, Chronic pain G89.29 [address] [address] 29610- 5665 Aug, Other acute nonsuppurative otitis media of right ear H65.191 and Morbid obesity, unspecified obesity type E66.01 [address] [address] 29206- 9165 Aug, Bipolar 1 disorder F31.9 ; Posttraumatic stress disorder F43.10 and Social anxiety disorder F40.10 [address] [address] 10613- 2007 Aug, Bipolar disorder F31.9 ; Posttraumatic stress disorder F43.10 and Borderline personality disorder F60.3 [place] [id number] [place] [address] 14729- 4482 Jul, Morbid obesity due to excess calories E66.01 ; Gastro- esophageal reflux disease without esophagitis K21.9 and Chronic pain G89.29 [address] [id number] [place] [address] 81799- 4652 Jul, Morbid obesity due to excess calories E66.01 [address] [id number] [place] [address] 53691- 3058 Jul, [address] 81580- 6583 Jul, [facility] [address] [address]- 3517 Jul, Morbid obesity due to excess calories E66.01 [facility] [address] [place] [address] 42972- 8644 Jul, Bipolar disorder F31.9 ; Posttraumatic stress disorder F43.10 and Borderline personality disorder F60.3 [facility] [id number] [place] [address] 50985- 0156 16 Jun, 2016 [facility] [id number] [place] [address] 83410- 0817 15 Jun, 2016 Morbid obesity due to excess calories E66.01 [facility] [id number] [place] [address] 60859- 2796 Jun, [facility] [id number] [place] [address] 01393- 1357 09 Jun, 2016 Morbid obesity, unspecified obesity type E66.01 [facility] [id number] [place] [address] 42317- 3137 03 Jun, 2016 Bipolar disorder F31.9 ; Posttraumatic stress disorder F43.10 and Borderline personality disorder F60.3 [facility] [address] [place] [address] 49577- 9476 Jun, [facility] [address] [place] [address] 10102 2546 Jun, [facility] [id number] [place] [address] 53408- 2540 02 Jun, 2016 Acquired hypothyroidism E03.9 and Morbid obesity due to excess calories E66.01 [facility] [address] [place] [address] 54728- 8130 May, Bipolar disorder F31.9 ; Posttraumatic stress disorder F43.10 and Borderline personality disorder F60.3 [facility] [address] [place] [address] 38339- 7116 13 Apr, 2016 Bipolar 1 disorder F31.9 ; Posttraumatic stress disorder F43.10 and Social anxiety disorder F40.[address] [id number][place] [id number] 12 Apr, 2016 Encounter for dental examination Z01.20 [facility] [address] [place] [address] 17078- 1060 08 Apr, 2016 [facility] [id number] [place] [address] 077200- 4330 08 Apr, 2016 Acquired hypothyroidism E03.9 [facility] [id number] [place] [address] 711582- 0804 Apr, Acquired hypothyroidism E03.9 [facility] [id number] [place] [address] 13893- 2856 07 Apr, 2016 Bipolar disorder F31.9 ; Posttraumatic stress disorder F43.10 and Borderline personality disorder F60.3 [facility] [address] [place] [address] 21551- 1979 06 Apr, 2016 Acquired hypothyroidism E03.[address] [id number][place] [id number] 23 Mar, 2016 Encounter for dental examination and cleaning without abnormal findings Z01.20 [facility] [address] [place] [address] 62045- 9109 08 Mar, 2016 [facility] [id number] [place] [address] 56362- 5854 08 Mar, 2016 Bipolar disorder F31.9 ; Posttraumatic stress disorder F43.10 and Borderline personality disorder F60.3 [facility] [id number] [place] [address] 77831- 9624 Mar, Essential (primary) hypertension I10 [facility] [id number] [place] [address] 95168- 1170 Feb, [facility] [address] 23226- 4351 Feb, [address] [place] [address] 01813- 1206 11 Feb, 2016 Pelvic pain R10.2 ; Lipid screening Z13.220 ; Fatigue, unspecified type R53.83 and Weight gain R63.5 [address] [place] [address] 51429- 7803 11 Feb, 2016 Bipolar disorder F31.9 ; Posttraumatic stress disorder F43.10 and Borderline personality disorder F60.3 [address] [place] [id number] [place] [address] 37122- 5378 07 Feb, 2016 [address] 18365- 6292 05 Feb, 2016 [address] [place] [id number] [place] [address] 55068- 9848 30 Jan, 2016 Obstructive sleep apnea syndrome G47.33 [id number] [place] [address] 89913- 0801 26 Jan, [address] [id number][place] [id number] 19 Jan, 2016 Dental examination Z01.20 [address] [id number] [place] [address] 85692- 1273 13 Jan, 2016 Bipolar 1 disorder F31.9 ; Posttraumatic stress disorder F43.10 and Social anxiety disorder F40.10 [address] [id number] [place] [address] 24356- 7627 13 Jan, 2016 Bipolar disorder F31.9 ; Posttraumatic stress disorder F43.10 and Borderline personality disorder F60.3 [address] [place] [id number] [place] [address] 89897- 1770 13 Jan, 2016 Sciatica of left side M54.32 [address] [place] [address] 23571- 3697 06 Jan, 2016 [place] [id number] [place] [address] 56906- 4329 Dec, [facility] [address] [place] [address] 82024- 0810 Dec, [facility] [id number] [place] [address] 38675- 5076 Dec, Bipolar disorder F31.9 ; Posttraumatic stress disorder F43.10 and Borderline personality disorder F60.3 [facility] [id number] [place] [address] 14470- 5366 Nov, [facility] [id number] [place] [address] 74416- 4940 Nov, Insomnia, unspecified type G47.00 [facility] [id number] [place] [address] 57439- 8917 Nov, Bipolar disorder F31.9 ; Posttraumatic stress disorder F43.10 and Borderline personality disorder F60.3 [facility] [id number] [place] [address] 95543- 1176 Nov, [facility] [id number] [place] [address] 39455- 8097 Nov, [facility] [id number] [place] [address] 80588- 9487 Oct, Bipolar disorder F31.9 ; Posttraumatic stress disorder F43.10 and Borderline personality disorder F60.3 [facility] [id number] [place] [address] 41757- 3631 Oct, [facility] [id number] [place] [address] 93899- 0572 Oct, Essential (primary) hypertension I10 [facility] [id number] [place] [address] 41864- 2637 September, Bipolar 1 disorder F31.9 ; Posttraumatic stress disorder F43.10 and Social anxiety disorder F40.10 [facility] [address] [place] [address] 17154- 1254 September, Bipolar disorder F31.9 ; Posttraumatic stress disorder F43.10 and Borderline personality disorder F60.3 [facility] [address] [id number][place] [id number] September, Encounter for dental examination and cleaning without abnormal findings Z01.20 [facility] [address] [place] [address] 32149- 0108 September, [facility] [id number] [place] [address] 05003- 3034 September, [facility] [address] [place] [address] 90223- 7097 Aug, [facility] [id number] [place] [address] 68291- 8516 Aug, Bipolar disorder F31.9 ; Posttraumatic stress disorder F43.10 and Borderline personality disorder F60.3 [facility] [id number] [place] [address] 58440- 2467 Aug, [facility] [address] [place] [address] 12039- 9180 Aug, [facility] [id number] [place] [address] 48367- 7058 Aug, [facility] [address] [place] [address] [id number] Jul, Acute nasopharyngitis [common cold] J00 and Other viral agents as the cause of diseases classified elsewhere B97.89 [facility] [address] [place] [address] 95250- 7644 Jul, Chronic pain G89.29 and Allergic rhinitis J30.9 [facility] [id number] [place] [address] 53882- 7612 Jul, Bipolar 1 disorder F31.9 ; Posttraumatic stress disorder F43.10 and Social anxiety disorder F40.10 [facility] [address] [place] [address] 39347- 9181 Jul, Bipolar 1 disorder F31.9 [facility] [address], [place] [address]- 8440 16 Jul, 2015 Bipolar disorder F31.9 ; Posttraumatic stress disorder F43.10 and Borderline personality disorder F60.3 [facility] [address], [place] [address] 2546 14 Jul, 2015 [facility] [id number] [place] [address] 42773 2546 14 Jul, 2015 [facility] [id number] [place] [address] 64176 2546 11 Jul, 2015 [facility] [id number] [place] [address] 95130- 8236 10 Jul, 2015 Anxiety F41.9 [facility] [address] [place] [address] 98600- 6037 10 Jul, 2015 Chronic pain G89.29 and Encounter for therapeutic drug level monitoring Z51.81 [facility] [address] [place] [address] 80880 2541 09 Jul, 2015 Chronic pain G89.29 and Encounter for therapeutic drug level monitoring Z51.81 [facility] [address] [place] [address] 19481- 0092 08 Jul, 2015 [facility] [address] [address]- 4396 19 Jun, 2015 [facility] [address] [place] [address] 80020- 0806 19 Jun, 2015 [facility] [address] [address]- 6734 15 Jun, 2015 [facility] [id number] [place] [address] 97027- 4806 15 Jun, 2015 [facility] [address] [address]- 1305 11 Jun, 2015 High risk medication use V58.69 [facility] [id number] [place] [address] 12717- 7666 Jun, [facility] [id number] [place] [address] 13543- 7591 Jun, Bipolar 1 disorder F31.9 ; Overdose T50.901A and Chronic pain G89.29 [facility] [id number] [place] [address] 77389- 2352 Jun, Bipolar disorder F31.9 ; Posttraumatic stress disorder F43.10 and Borderline personality disorder F60.3 [facility] [id number] [place] [address] 80422- 8141 Jun, [facility] [address] 62000- 5075 Jun, [facility] [id number] [place] [address] 51686- 6800 Jun, Keloid L91.0 [facility] [id number] [place] [address] 54542- 6848 Jun, [facility] [id number] [place] [address] 58283- 0928 May, [facility] [id number] [place] [address] 78287- 1700 May, [facility] [id number] [place] [address] 64433- 4249 May, Pelvic pain R10.2 [facility] [id number] [place] [address] 41862- 7084 May, [facility] [id number] [place] [address] 18963- 0249 May, Pain of left thumb M79.645 ; Incisional pain R20.8 ; Pelvic pain R10.2 and Essential hypertension I10 [facility] [id number] [place] [address] 89364- 1682 May, [facility] [address] [facility] [id number] [address]- 7373 May, [facility] [address] [place] [address] [address] [id number] [id number] May, Dental examination Z01.20 and Necrosis of pulp K04.1 [facility] [address] [facility] [id number], [place] [address]- 5823 Apr, [facility] [address] [facility] [id number], [place] [address]- 8407 Apr, [facility] [address] [facility] [id number], [place] [address]- 1180 Apr, [facility] [address] [facility] [id number][place] [address]- 5809 Apr, [facility] [address] [facility] [id number][place] [address]- 8552 Apr, [facility] [address] [facility] [id number][place] [address]- 9187 Apr, [facility] [address] [facility] [id number], [place] [address]- 1460 Apr, [facility] [address] [facility] [id number][place] [address] Apr, [facility] [address] [facility] [id number], [place] [address] Mar, [facility] [address] [facility] [id number], [place] [address] Mar, [facility] [address] [facility] [id number], [place] [address] Mar, [facility] [address] [facility] [id number], [place] [address] Mar, [facility] [address] [facility] [id number], [place] [address] Feb, [facility] [id number] [address] Feb, [facility] [id number] [address] Feb, [facility] [id number], [place] [address] Feb, [facility] [id number] [place] [address] Feb, [facility] [id number] [place] [address] Feb, [facility] [address] [id number] [place] [address] Feb, [facility] [address] [id number] [place] [address]- 6706 Feb, Dermatofibroma of left lower leg D23.72 [facility] [id number] [place] [address]272- 4520 Feb, Hematochezia 578.1 ; Low back pain M54.5 ; High risk medication use V58.69 ; Cervicalgia M54.2 and Anxiety F41.[address] [id number] [id number] Feb, Dental examination Z01.20 ; Pulpitis K04.0 and Dental caries, unspecified K02.[address] [id number][place] [id number] Feb, Dental examination Z01.20 [facility] [address]00565[address] [address] Jan, [facility] [address]00565100[place] [address] Jan, [facility] [id number] [address] Jan, [facility] [id number] [address] Jan, [facility] [address] [id number] [place] [address] 7663 Dec, [facility] [address] [id number], [place] [address] 9448 Dec, [facility] [address] [id number] [place] [address] 8815 Dec, [facility] [address] [id number], [place] [address] 5358 Dec, [facility] [address] [id number] [place] [address]- 8830 Dec, [facility] [address] [id number][place] [address]555 Dec, [facility] [id number], [place] [address] 2018 Dec, [facility] [address] [id number], [place] [address] 6[address] Dec, [facility] [id number] [place] [id number] Nov, Encounter for removal of sutures V58.32 [facility] [address] [id number], [place] [address] Nov, [facility] [address] [id number], [place] [address] 1188 Nov, [facility] [address] [id number], [place] [address] 7573 Nov, [facility] [address] [facility] [id number][place] [address] 7547 Nov, [facility] [address] [id number], [place] [address] 7991 Nov, [facility] [address] [facility] [id number][place] [address] 3478 Nov, [facility] [id number] [address]- 7596 Nov, [facility] [id number] [address] 4148 Nov, Dermatofibroma 216.9 [facility] [id number] [address] 1707 Nov, [facility] [address]00565[address] [address] 7511 Nov, [facility] [address]00565100[place], [place] [address]- 6628 Oct, [facility] [id number], [place] [address] 46[address] Oct, Hematochezia 578.1 ; Abscess 682.9 ; GERD (gastroesophageal reflux disease) 530.81 ; Visual disturbance of one eye 368.9 and High risk medication use V58.69 [facility] [address]00565100[place], [place] [address] 4864 Oct, [facility] [address]00565100[place], [place] [address]- 6492 Oct, [facility] [address]00565100[place], [place] [address]- 2648 Oct, [facility] [address]00565100[place], [place] [address] 6854 September, [facility] [address] [id number], [place] [address] 0735 September, [facility] [address] [id number], [place] [address] 3749 September, [facility] [address]00565100[place], [place] [address]- 6452 September, [facility] [address] [id number], [place] [address]- 9488 September, [facility] [address] [facility] [id number] [place] [address]- 6013 September, Colon cancer screening V76.51 [facility] [place] [facility] [address] [id number] [place] [address]- 7852 September, [facility] [place] [facility] [address] [facility] [id number] [place] [address]- 3903 Aug, [facility] [place] [facility] [address] [facility] [id number] [place] [address]- 2100 Aug, [facility] [place] [facility] [address] [facility] [id number] [place] [address]- 9692 Jul, [facility] [place] [facility] [address] [id number] [place] [address]- 1743 Jul, [facility] [place] [facility] [address] [id number] [place] [address]- 7789 Jul, [facility] [place] [facility] [address] [facility] [id number], [place] [address]- 8901 Jul, [facility] [place] [facility] [address] [facility] [id number] [place] [address]- 7197 Jun, [facility] [place] [facility] [address] [id number], [place] [address]- 4967 Jun, [facility] [place] [facility] [address] [id number] [place] [address]- 7733 Jun, [facility] [place] [facility] [address] [facility] [id number], [place] [address]- 9325 Jun, [facility] [place] [facility] [address] [facility] [id number] [place] [address]- 4874 Jun, [facility] [place] [facility] [address] [facility] [id number], [place] [address]- 4966 Jun, [facility] [place] [facility] [address] [facility] [id number] [place] [address]- 4727 May, [facility] [place] [facility] [address] [facility] [id number] [place] [address]- 6909 May, [facility] [address] [id number] [place] [address]- 2465 May, [facility] [place] [facility] [address] [id number] [place] [address]- 7501 May, [facility] [place] [facility] [address] [id number] [place] [address]- 3870 May, [facility] [place] [facility] [address] [id number] [place] [address]- 3836 May, [facility] [place] [facility] [address] [id number] [place] [address]- 5584 May, [facility] [place] [facility] [address] [id number] [place] [address]- 9605 May, [facility] [address] [id number] [place] [address]- 0140 Apr, [facility] [place] [facility] [address] [id number] [place] [address]- 8242 Apr, [facility] [place] [facility] [address] [id number] [place] [address]- 9521 Apr, [facility] [place] [facility] [address] [id number] [place] [address]- 9909 Apr, [facility] [place] [facility] [address] [id number] [place] [address]- 8696 Apr, [facility] [place] [facility] [address] [id number] [place] [address]- 2615 Apr, [facility] [place] [facility] [address] [id number] [place] [address]- 6471 Apr, [facility] [place] [facility] [address] [id number] [place] 6803 Apr, [facility] [place] [facility] [address] [id number] [place] [address]- 7036 Mar, [facility] [place] [facility] [address] [id number] [place] [address]- 8697 Mar, [facility] [place] [facility] [address] [id number] [place] [address]- 4097 Mar, [facility] [place] [facility] [address] [id number] [place] [address]- 8831 Mar, [facility] [place] [facility] [address] [id number] [place] [address]- 1031 Mar, [facility] [place] [facility] [address] [id number] [place] [address]- 8812 Mar, [facility] [place] [facility] [address] [id number] [place] [address]- 5888 Mar, [facility] [place] [facility] [address] [id number] [place] [address]- 0910 Mar, [facility] [place] [facility] [address] [id number] [place] [address]- 6978 Mar, [facility] [place] [facility] [address] [id number] [place] [address]- 7479 Mar, [facility] [place] [facility] [address] [id number] [place] [address]- 8511 Feb, [facility] [place] [facility] [address] [id number] [place] [address]- 7517 Feb, [facility] [place] [facility] [address] [id number] [place] [address]- 3577 Jan, [facility] [place] [facility] [address] [id number] [place] [address]- 1329 25 Jan, 2014 [facility] [place] [facility] [address] [id number] [place] [address]- 6716 18 Jan, 2014 [facility] [place] [facility] [address] [id number] [place] [address]- 2695 18 Jan, 2014 [facility] [place] [facility] [address] [id number] [place] [address]- 2254 Dec, [facility] [place] [facility] [address] [id number] [place] [address]- 4813 Dec, [facility] [place] [facility] [address] [id number] [place] [address]- 4783 Dec, [facility] [place] [facility] [address] [id number] [place] [address]- 4606 Dec, [facility] [place] [facility] [address] [id number] [place] [address]- 2617 Dec, [facility] [place] [facility] [address] [id number] [place] [address]- 8623 Dec, [facility] [place] [facility] [address] [id number] [place] [address]- 8007 Nov, [facility] [place] [facility] [address] [id number] [place] [address]- 6832 Nov, [facility] [place] [facility] [address] [id number] [place] [address]- 5463 Oct, [facility] [place] [facility] [address] [id number] [place] [address]- 5861 Oct, [facility] [place] [facility] [address] [id number] [place] [address]- 7974 Oct, [facility] [place] [facility] [address] [id number] [place] [address]- 8072 Oct, [facility] [place] [facility] [address] [id number] [place] [address]- 7771 September, [facility] [place] [facility] [address] [id number] [place] [address]- 7421 September, [facility] [place] [facility] [address] [id number] [place] [address]- 2931 September, [facility] [place] [facility] [address] [id number] [place] [address]- 8651 September, [facility] [place] [facility] [address] [id number] [place] [address]- 8406 September, [facility] [address] [id number] [place] [address]- 6555 September, [facility] [address] [id number] [place] [address]- 6299 September, [facility] [address] [id number] [place] [address]- 6116 September, [facility] [address] [id number] [place] [address]- 2182 Aug, [facility] [address] [id number] [place] [address]- 5515 Aug, [facility] [address] [id number] [place] [address]- 1428 Aug, [facility] [address] [id number] [place] [address]- 2571 Aug, [facility] [address] [id number] [place] [address]- 4651 Aug, [facility] [address] [id number] [place] [address]- 1323 Aug, [facility] [address] [id number] [place] [address]- 7594 Jul, [facility] [place] [facility] [address] [id number] [place] [address]- 1261 Jul, [facility] [address] [id number] [place] [address]- 2506 Jul, [facility] [place] [facility] [address] [id number] [place] [address]- 3161 Jul, [facility] [place] [facility] [address] [id number] [place] [address]- 9841 Jun, [facility] [place] [facility] [address] [id number] [place] 4609 Jun, [facility] [address] [id number] [place] [address]- 5808 Jun, [facility] [address] [id number] [place] [address]- 4151 Jun, [facility] [address] [id number] [place] [address]- 6277 Jun, [facility] [address] [id number] [place] [address]- 9378 Jun, [facility] [address] [id number] [place] [address]- 3154 May, [facility] [address] [id number] [place] [address]- 7172 May, [facility] [address] [id number] [place] [address]- 6768 May, [facility] [address] [id number] [place] [address]- 2957 May, [facility] [address] [id number] [place] [address]- 9465 May, [facility] [address] [id number] [place] [address]- 6742 May, [facility] [address] [id number], [place] [address]- 7045 May, [facility] [address] [id number], [place] [address]- 6138 May, [facility] [address] [facility] [id number] [place] [address]- 3503 Apr, [facility] [address] [place] [id number] Apr, [facility] [address] [id number] [place] [address]- 0924 Apr, [facility] [address] [id number], [place] [address]- 6276 16 Apr, 2013 [facility] [address] [id number] [place] [address]- 4649 Apr, [facility] [place] [facility] [address] [id number][place] 4217 Apr, [facility] [place] [facility] [address] [id number] [place] [address]- 0554 05 Apr, 2013 [facility] [place] [facility] [address] [id number], [place] [address]- 6964 05 Apr, 2013 [facility] [place] [facility] [address] [id number] [place] [address]- 1875 Apr, [facility] [place] [facility] [address] [id number], [place] [address]- 7025 Mar, [facility] [place] [facility] [address] [id number], [place] [address]- 2605 Mar, [facility] [place] [facility] [address] [id number], [place] [address]- 7571 Mar, [facility] [place] [facility] [address] [id number], [place] [address]- 8978 Mar, [facility] [place] [facility] [address] [id number], [place] [address]- 4577 Mar, [facility] [place] [facility] [address] [id number], [place] [address]- 6991 Feb, [facility] [place] [facility] [address] [id number], [place] [address]- 7601 25 Feb, 2013 [facility] [place] [facility] [address] [id number], [place] [address]- 9764 14 Feb, 2013 [facility] [place] [facility] [address] [id number], [place] [address]- 7214 14 Feb, 2013 [facility] [place] [facility] [address] [id number], [place] [address]- 6862 25 Jan, 2013 [facility] [place] [facility] [address] [id number] [place] [address]- 7136 Jan, [facility] [address] [id number] [place] [address]- 3436 Jan, [facility] [address] [id number] [place] [address]- 2546 Dec, [facility] [address] [id number] [place] [address] 2546 Dec, [facility] [address] [id number] [place] [address]- 2546 Dec, [facility] [address] [facility] [address] [id number] [place] [id number] Nov, [facility] [address] [facility] [id number] [place] [id number] Oct, [facility] [address] [id number], [place] [address]- 4566 Oct, [facility] [address] [id number], [place] [address]- 2546 September, [facility] [address] [id number] [place] [address]- 9446 September, [facility] [address] [facility] [id number], [place] [address]- 2546 September, [facility] [address] [id number] [place] [address]- 2546 September, [facility] [address] [id number], [place] [address]- 2546 September, [facility] [address] [id number] [place] [address]- 4916 Jul, [facility] [place] [facility] [address] [id number] [place] [address]- 2546 Jul, [facility] [address] [id number] [place] [address]- 2546 Jul, [facility] [place] [facility] [address] [id number] [place] [address]- 2058 Jul, [facility] [place] [facility] [address] [id number] [place] [address]- 4024 Jun, [facility] [place] [facility] [address] [id number] [place] [address]- 2546 Jun, [facility] [place] [facility] [address] [id number] [place] [address]- 3630 Jun, [facility] [place] [facility] [address] [id number] [place] [address]- 7560 Jun, [facility] [place] [facility] [address] [id number] [place] [address]- 0419 May, [facility] [place] [facility] [address] [facility] [id number] [place] [address]- 2217 Mar, [facility] [place] [facility] [address] [id number] [place] [address]- 7804 Mar, [facility] [place] [facility] [address] [id number] [place] [address]- 3448 Mar, [facility] [place] [facility] [address] [facility] [id number] [place] [address]- 6425 Mar, [facility] [place] [facility] [address] [facility] [id number] [place] [address]- 2779 Mar, [facility] [place] [facility] [address] [id number], [place] [address]- 2292 Mar, [facility] [place] [facility] [address] [id number] [place] [address]- 0821 Mar, [facility] [place] [facility] [address] [id number] [place] [address]- 1149 Mar, [facility] [place] [facility] [address] [id number] [place] [address]- 2657 Feb, [facility] [place] [facility] [address] [id number], [place] [address]- 2546 Feb, [facility] [place] [facility] [address] [id number] [place] [address] Feb, [facility] [place] [facility] [address] [facility] [id number], [place] [address] Feb, [facility] [place] [facility] [address] [facility] [id number], [place] [address] Feb, [facility] [place] [facility] [address] [id number], [place] [address] Feb, [facility] [place] [facility] [address] [id number] [place] [address] Feb, [facility] [address] [id number] [place] [id number] Jan, [facility] [address] [id number] [place] [id number] Dec, [facility] [address] [facility] [id number] [place] [id number] Dec, [facility] [place] [facility] [address] [facility] [id number], [place] [address] Nov, [facility] [place] [facility] [address] [facility] [id number], [place] [address] Nov, [facility] [place] [facility] [address] [facility] [id number], [place] [address] Oct, [facility] [place] [facility] [address] [facility] [id number], [place] [address] 15 Jul, 2011 [facility] [place] [facility] [address] [id number], [place] [address] Jul, [facility] [place] [facility] [address] [facility] [id number] [place] [address] May, [facility] [place] [facility] [address] [facility] [id number], [place] [address] 24 May, 2011 [facility] [place] [facility] [address] [facility] [id number][place] [address] Nov, [facility] [address] [id number], [place] [address] Mar, [facility] [id number], [place] [address] Dec, [facility] [id number], [place] [address] Nov, [facility] [id number], [place] [address] Aug, [facility] [id number], [place] [address] Apr, [facility] [id number] [place] [address] Apr, [facility] [id number], [place] [address] Mar, [facility] [id number], [place] [address] Feb, [facility] [id number], [place] [address] September, [facility] [id number], [place] [address] Jun, [facility] [id number], [place] [address] Mar, IMMUNIZATIONS No Known Immunizations SOCIAL HISTORY [...] hernia Hospitalization History Went by ambulance to [place] as unresponsive 05/2015 Hospitalization History [place] sent her to [facility] for a psych hold 05/2015
--- OUTSIDE RECORDS SUMMARY | 2018-03-15 11:13 | XMS REPORT ---
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 Active 777688178 Problem Pelvic pain R10.2 Active 27372105 Problem Blindness of right eye H54.40 Active 302060623 Problem Relationship problem with family member Z63.8 Active 837334452 Problem Essential hypertension I10 Active 94058445 Problem Other chronic pain G89.29 Active 77298788 Problem Lumbago with sciatica, left side M54.42 Active 823363381 Problem Bipolar disorder F31.9 Active 50271506 Problem Posttraumatic stress disorder F43.10 Active 68750706 Problem Bilateral low back pain with sciatica, sciatica laterality unspecified M54.40 Active 340795665 Problem Visual disturbance H53.9 Active 29195633 Problem Overdose T50.901A Active 67824361 Problem Social anxiety disorder F40.10 Active 04474788 Problem Borderline personality disorder F60.3 Active 71108379 Problem Obstructive sleep apnea G47.33 Active 51225961 Problem Chronic pain G89.29 Active 81503794 Problem Acquired hypothyroidism E03.9 Active 953490624 ALLERGIES No Information ENCOUNTERS Encounter Location Date Diagnosis [facility] [address], [place] [address] Nov, [facility] [address], [place] [address] Oct, [facility] [id number] [place] [address] 07734- 0527 Oct, [place] [id number] [place] [address] 60265- 6281 September, [place] [id number] [place] [address] 66667- 1484 Aug, BMI 40.0-44.9, adult Z68.41 ; Bipolar disorder F31.9 ; Posttraumatic stress disorder F43.10 and Social anxiety disorder F40.10 [place] [id number] [place] [address] 63700- 0282 Aug, Bipolar disorder F31.9 ; Posttraumatic stress disorder F43.10 and Borderline personality disorder F60.3 [place] [id number] [place] [address] 84213- 7667 Aug, 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 [place] [address] 82911- 6654 Jul, Bipolar disorder F31.9 ; Posttraumatic stress disorder F43.10 and Borderline personality disorder F60.3 [place] [id number] [place] [address] 93779- 2694 Jul, [place] [id number] [place] [address] 32912- 4993 Jun, Bipolar disorder F31.9 ; Posttraumatic stress disorder F43.10 and Borderline personality disorder F60.3 [place] [id number] [place] [address] 84792- 4469 Jun, Blindness of right eye H54.40 and Acquired hypothyroidism E03.9 [place] [id number] [place] [address] 52889- 4865 Jun, [place] [id number] [place] [address] 66397- 7695 May, Posttraumatic stress disorder F43.10 ; Social anxiety disorder F40.10 and Bipolar disorder F31.9 [place] [address], [place] [address] 6206 May, Bipolar disorder F31.9 ; Posttraumatic stress disorder F43.10 and Borderline personality disorder F60.3 [place] [address], [place] [address] 7687 May, [facility] [address] [place] [address] 87231- 2692 May, [facility] [address] [place] [address] 00544- 8155 Apr, Bipolar disorder F31.9 ; Posttraumatic stress disorder F43.10 and Borderline personality disorder F60.3 [address] [place] [address] [id number] Apr, [facility] [address] [place] [address] 59752- 0075 Apr, [facility] [id number] [place] [address] 15221- 5705 Mar, Hydradenitis L73.[address] [place] [address] 50151- 2226 Mar, Lumbago with sciatica, left side M54.42 ; Other chronic pain G89.29 ; Morbid obesity, unspecified obesity type E66.01 ; Hydradenitis L73.2 and BMI 40.0-44.9, adult Z68.41 [place] [address] [place] [address] 13064- 0730 Mar, Bipolar disorder F31.9 ; Posttraumatic stress disorder F43.10 and Borderline personality disorder F60.3 [place] [id number] [place] [address] 22670- 2891 Mar, Social anxiety disorder F40.10 ; Bipolar disorder F31.9 and Relationship problem with family member Z63.[address] [place] [address] 28822- 5893 Mar, [facility] [address] [id number] [id number] Mar, Dental examination Z01.20 [facility] [address], [place] [address] 3276 Mar, [facility] [id number], [place] [address] 8038 Feb, Bipolar disorder F31.9 ; Posttraumatic stress disorder F43.10 and Borderline personality disorder F60.3 [facility] [address] [facility] [id number] [id number] Feb, [facility] [address] [place] [address] 42653- 1010 14 Jan, 2017 Bipolar disorder F31.9 ; Posttraumatic stress disorder F43.10 and Borderline personality disorder F60.3 [facility] [place] [address] [id number] [id number] Jan, [facility] [address], [place] [address] 1046 Jan, [facility] [address] [id number] [id number] Jan, [facility] [id number], [place] [address] 1353 Dec, Bipolar disorder F31.9 ; Posttraumatic stress disorder F43.10 and Borderline personality disorder F60.3 [facility] [address], [place] [address] 1518 Dec, [facility] [address] [facility] [id number] [address]- 3483 Dec, [facility] [address] [facility] [id number] [id number] Dec, [facility] [id number], [place] [address] 2313 Nov, Bipolar 1 disorder F31.9 ; Posttraumatic stress disorder F43.10 and Social anxiety disorder F40.10 [facility] [address] [place] [address] 35889- 3223 Nov, Bipolar disorder F31.9 ; Posttraumatic stress disorder F43.10 and Borderline personality disorder F60.3 [place] [address] [place] [address] 23035- 9674 Nov, Morbid obesity, unspecified obesity type E66.01 [place] [id number] [place] [address] 98435- 2992 Nov, [address] [id number] Oct, Encounter for dental examination and cleaning without abnormal findings Z01.20 [place] [id number] [place] [address] 14944- 8514 Oct, Morbid obesity, unspecified obesity type E66.01 and Acute seasonal allergic rhinitis due to pollen J30.1 [place] [id number] [place] [address] 30688- 4478 Oct, Bipolar disorder F31.9 ; Posttraumatic stress disorder F43.10 and Borderline personality disorder F60.3 [place] [id number] [place] [address] 08260- 7793 September, Morbid obesity, unspecified obesity type E66.01 and Psoriasis L40.9 [place] [id number] [place] [address] 44550- 3119 September, Bipolar disorder F31.9 ; Posttraumatic stress disorder F43.10 and Borderline personality disorder F60.3 [place] [address] [place] [address] 20756- 7644 September, Chronic pain G89.29 [place] [id number] [place] [address] 42730- 7155 Aug, Other acute nonsuppurative otitis media of right ear H65.191 and Morbid obesity, unspecified obesity type E66.01 [place] [id number] [place] [address] 61766- 7479 Aug, Bipolar 1 disorder F31.9 ; Posttraumatic stress disorder F43.10 and Social anxiety disorder F40.10 [facility] [address] 79982- 1455 Aug, Bipolar disorder F31.9 ; Posttraumatic stress disorder F43.10 and Borderline personality disorder F60.3 [facility] [id number] [place] [address] 78060- 6347 Jul, Morbid obesity due to excess calories E66.01 ; Gastro- esophageal reflux disease without esophagitis K21.9 and Chronic pain G89.29 [facility] [address] 16756- 9611 Jul, Morbid obesity due to excess calories E66.01 [facility] [address] 00127- 6462 Jul, [facility] [address] 47307- 1844 Jul, [facility] [id number] [place] [address] 65122- 4754 Jul, Morbid obesity due to excess calories E66.01 [facility] [id number] [place] [address] 98390- 1814 Jul, Bipolar disorder F31.9 ; Posttraumatic stress disorder F43.10 and Borderline personality disorder F60.3 [facility] [id number] [place] [address] 81146- 8063 Jun, [facility] [id number] [place] [address] 38710- 3769 Jun, Morbid obesity due to excess calories E66.01 [facility] [id number] [place] [address] 45052- 5913 Jun, [facility] [id number] [place] [address] 66821- 2947 Jun, Morbid obesity, unspecified obesity type E66.01 [facility] [address], [place] [address]- 7853 03 Jun, 2016 Bipolar disorder F31.9 ; Posttraumatic stress disorder F43.10 and Borderline personality disorder F60.3 [facility] [address] [place] [address] 63131- 1764 Jun, [facility] [id number] [place] [address] 119599- 9939 Jun, [facility] [id number] [place] [address] 25090- 0438 Jun, Acquired hypothyroidism E03.9 and Morbid obesity due to excess calories E66.01 [place] [address] [place] [address] 93269- 5907 May, Bipolar disorder F31.9 ; Posttraumatic stress disorder F43.10 and Borderline personality disorder F60.3 [place] [address] [place] [address] 40818- 8870 Apr, Bipolar 1 disorder F31.9 ; Posttraumatic stress disorder F43.10 and Social anxiety disorder F40.[address] [place] [id number] [id number] Apr, Encounter for dental examination Z01.20 [place] [address] [place] [address] 86952- 6980 Apr, [place] [address] [place] [address] 70762- 4089 Apr, Acquired hypothyroidism E03.9 [place] [address] [place] [address] 60017- 1291 Apr, Acquired hypothyroidism E03.9 [place] [address] [place] [address] 28130- 7380 Apr, Bipolar disorder F31.9 ; Posttraumatic stress disorder F43.10 and Borderline personality disorder F60.3 [place] [id number] [place] [address] 58714- 7332 Apr, Acquired hypothyroidism E03.9 [facility] [place] [address] [id number] [id number] Mar, Encounter for dental examination and cleaning without abnormal findings Z01.20 [facility] [address] [place] [address] 52439- 2630 08 Mar, 2016 [facility] [address] 46957- 0763 Mar, Bipolar disorder F31.9 ; Posttraumatic stress disorder F43.10 and Borderline personality disorder F60.3 [place] [address] 39029- 8072 Mar, Essential (primary) hypertension I10 [place] [id number] [place] [address] 60654- 2844 Feb, [facility] [address] 64741- 1266 Feb, [facility] [id number] [place] [address] 72855- 1336 Feb, Pelvic pain R10.2 ; Lipid screening Z13.220 ; Fatigue, unspecified type R53.83 and Weight gain R63.5 [place] [id number] [place] [address] 38381- 0833 Feb, Bipolar disorder F31.9 ; Posttraumatic stress disorder F43.10 and Borderline personality disorder F60.3 [facility] [id number] [place] [address] 50745- 5332 Feb, [facility] [address] 45948- 1925 Feb, [facility] [id number] [place] [address] 27698- 1717 30 Jan, 2016 Obstructive sleep apnea syndrome G47.33 [facility] [id number] [place] [address] 58451- 7501 Jan, [facility] [address] [address] [address] [id number] [id number] Jan, Dental examination Z01.20 [facility] [address] [place] [address] 13687- 4749 Jan, Bipolar 1 disorder F31.9 ; Posttraumatic stress disorder F43.10 and Social anxiety disorder F40.10 [facility] [id number] [place] [address] 70575- 5724 Jan, Bipolar disorder F31.9 ; Posttraumatic stress disorder F43.10 and Borderline personality disorder F60.3 [facility] [id number] [place] [address] 21883- 6266 Jan, Sciatica of left side M54.32 [facility] [id number] [place] [address] 31646- 0274 Jan, [facility] [id number] [place] [address] 48861- 6364 Dec, [facility] [id number] [place] [address] 94765- 4049 Dec, [facility] [id number] [place] [address] 61310- 9059 Dec, Bipolar disorder F31.9 ; Posttraumatic stress disorder F43.10 and Borderline personality disorder F60.3 [facility] [address] [place] [address] 30498- 6162 Nov, [facility] [address] [place] [address] 07455- 4214 Nov, Insomnia, unspecified type G47.00 [facility] [id number] [place] [address] 48859- 4325 Nov, Bipolar disorder F31.9 ; Posttraumatic stress disorder F43.10 and Borderline personality disorder F60.3 [facility] [address] [place] [address] 55618- 8376 Nov, [facility] [address], [place] [address]- 9812 Nov, [facility] [address] [place] [address] 38935- 7450 Oct, Bipolar disorder F31.9 ; Posttraumatic stress disorder F43.10 and Borderline personality disorder F60.3 [facility] [address] [place] [address] 27940- 7908 Oct, [facility] [address] [place] [address] 74425- 4820 Oct, Essential (primary) hypertension I10 [facility] [address] [place] [address] 29948- 4902 September, Bipolar 1 disorder F31.9 ; Posttraumatic stress disorder F43.10 and Social anxiety disorder F40.10 [facility] [address] [place] [address] 40908- 8055 September, Bipolar disorder F31.9 ; Posttraumatic stress disorder F43.10 and Borderline personality disorder F60.[address] [place] [id number] [id number] September, Encounter for dental examination and cleaning without abnormal findings Z01.20 [facility] [address], [place] [address]- 5599 September, [facility] [address] [place] [address] 99360- 0269 September, [facility] [address], [place] [address]- 0500 Aug, [facility] [address] [place] [address] 86113- 7712 Aug, Bipolar disorder F31.9 ; Posttraumatic stress disorder F43.10 and Borderline personality disorder F60.3 [facility] [address], [place] [address]- 6595 Aug, [facility] [address] [address] 3027 08 Aug, 2015 [facility] [address], [place] [address]- 4002 Aug, [facility] [id number] [id number] Jul, Acute nasopharyngitis [common cold] J00 and Other viral agents as the cause of diseases classified elsewhere B97.89 [facility] [address] [place] [address] 19230- 9176 24 Jul, 2015 Chronic pain G89.29 and Allergic rhinitis J30.9 [place] [id number] [place] [address] 41057- 2752 24 Jul, 2015 Bipolar 1 disorder F31.9 ; Posttraumatic stress disorder F43.10 and Social anxiety disorder F40.10 [place] [address] [place] [address] 44857- 4245 16 Jul, 2015 Bipolar 1 disorder F31.9 [place] [address] [place] [address] 68474- 1247 16 Jul, 2015 Bipolar disorder F31.9 ; Posttraumatic stress disorder F43.10 and Borderline personality disorder F60.3 [place] [address] [place] [address] 29256- 2719 14 Jul, 2015 [place] [address], [place] [address]- 0416 14 Jul, 2015 [facility] [address] [place] [address] 90425- 9735 11 Jul, 2015 [place] [address] [place] [address] 56342- 7681 10 Jul, 2015 Anxiety F41.9 [place] [address] [place] [address] 50750- 5027 10 Jul, 2015 Chronic pain G89.29 and Encounter for therapeutic drug level monitoring Z51.81 [place] [id number] [place] [address] 38313- 9853 Jul, Chronic pain G89.29 and Encounter for therapeutic drug level monitoring Z51.81 [facility] [id number] [place] [address] 10354- 7962 Jul, [facility] [id number] [place] [address] 75898- 8370 Jun, [facility] [id number] [place] [address] 34394- 0188 Jun, [facility] [id number] [place] [address] 37500- 4588 Jun, [facility] [id number] [place] [address] 90243- 4632 Jun, [facility] [id number] [place] [address] 01820- 4195 Jun, High risk medication use V58.69 [facility] [id number] [place] [address] 80835- 8965 Jun, [facility] [id number] [place] [address] 10237- 8552 Jun, Bipolar 1 disorder F31.9 ; Overdose T50.901A and Chronic pain G89.29 [facility] [id number] [place] [address] 93039- 4882 Jun, Bipolar disorder F31.9 ; Posttraumatic stress disorder F43.10 and Borderline personality disorder F60.3 [facility] [id number] [place] [address] 00550- 5427 Jun, [facility] [id number] [place] [address] 64055- 1651 Jun, [facility] [id number] [place] [address] 02652- 4819 Jun, Keloid L91.0 [facility] [id number] [place] [address] 51957- 4194 Jun, [facility] [id number] [place] [address] 69253- 6302 May, [facility] [id number] [place] [address] 83354- 7052 May, [facility] [id number] [place] [address] 07688- 7696 May, Pelvic pain R10.2 [facility] [id number] [place] [address] 36617- 1134 May, [facility] [id number] [place] [address] 63660- 3132 May, Pain of left thumb M79.645 ; Incisional pain R20.8 ; Pelvic pain R10.2 and Essential hypertension I10 [facility] [id number] [place] [address] 10151- [id number] May, [facility] [id number] [place] [address] 55716- 2383 May, [id number] [id number] May, Dental examination Z01.20 and Necrosis of pulp K04.1 [facility] [id number] [place] [address] 53345- 9824 Apr, [facility] [id number] [place] [address] 20990- 7140 Apr, [facility] [id number] [place] [address] 15953- 8540 Apr, [facility] [id number] [place] [address] 04061- 5761 Apr, [facility] [id number] [place] [address] 49899- 1608 Apr, [facility] [id number] [place] [address] [id number]- 4290 Apr, 2014 [facility] [address] [facility] [id number] [address] Apr, [facility] [address] [facility] [id number], [place] [address] Apr, 2014 [facility] [address] [facility] [id number] [address] 30[address] Mar, [facility] [address] [facility] [id number], [place] [address] Mar, [facility] [address] [facility] [id number] [id number] 1542 Mar, [facility] [facility] [address] [facility] [id number] [address] [address] Mar, [facility] [address] [id number], [place] [address] Feb, [facility] [address] [facility] [id number], [place] [address] 20[address] Feb, [facility] [address] [facility] [id number], [place] [address] 15[address] Feb, [facility] [address] [facility] [id number], [place] [address] 47[address] Feb, 2014 [facility] [address] [facility] [id number], [place] [address] 1267 Feb, [facility] [address] [facility] [id number], [place] [address] 4159 Feb, 2014 [facility] [address] [facility] [id number], [place] [address] 5704 Feb, 2014 [facility] [address] [id number], [place] [address] 7285 Feb, 2014 Dermatofibroma of left lower leg D23.72 [facility] [address] [id number], [place] [address] 8310 06 Oct, 2015 Hematochezia 578.1 ; Low back pain M54.5 ; High risk medication use V58.69 ; Cervicalgia M54.2 and Anxiety F41.9 [facility] [address] [id number][place] [id number] Feb, Dental examination Z01.20 ; Pulpitis K04.0 and Dental caries, unspecified K02.9 [facility] [address] [id number][place] [id number] Feb, Dental examination Z01.20 [facility] [address] [id number], [place] [address] 4[address] Jan, [facility] [address] [facility] [id number] [place] [address]- 3754 Jan, [facility] [id number] [place] [address]- 7601 Jan, [facility] [id number] [place] [address]- 1065 Jan, [facility] [address] [facility] [id number] [place] [address] 11194- 4571 Dec, [facility] [id number] [place] [address]- 5343 Dec, [facility] [address] [id number], [place] [address] 3916 Dec, [facility] [address] [id number], [place] [address] 0902 Dec, [facility] [address] [facility] [id number], [place] [address] 9566 Dec, [facility] [address] [facility] [id number] [place] [address] 18542- 2237 Dec, [facility] [address] [id number], [place] [address] 1477 Dec, [facility] [address] [id number], [place] [address] 7904 Dec, [facility] [address] [id number] [id number] Nov, Encounter for removal of sutures V58.32 [facility] [id number], [place] [address] 8335 Nov, [facility] [id number], [place] [address] 5255 Nov, [facility] [id number], [place] [address] 7871 Nov, [facility] [id number] [place] [address] 12003- 7364 Nov, [facility] [id number], [place] [address] 5856 Nov, [facility] [id number] [place] [address]58[address]- 7028 Nov, [facility] [id number], [place] [address]- 3875 Nov, [facility] [id number] [place] [address] 14710- 2948 Nov, Dermatofibroma 216.9 [facility] [id number], [place] [address]- 6990 Nov, [facility] [id number], [place] [address]- 5172 Nov, [facility] [address] [id number], [place] [address]- 7976 Oct, [facility] [id number], [place] [address]- 9256 Oct, Hematochezia 578.1 ; Abscess 682.9 ; GERD (gastroesophageal reflux disease) 530.81 ; Visual disturbance of one eye 368.9 and High risk medication use V58.69 [facility] [id number] [place] [address] [place] [address] 5542 Oct, [facility] [address] [id number] [place] [address]- 6416 Oct, [facility] [address] [id number] [place] [address]- 8565 Oct, [facility] [address] [id number] [place] [address]- 1359 September, [facility] [address] [id number] [place] [address]- 7769 September, [facility] [address] [id number] [place] [address]- 2567 September, [facility] [address] [id number] [place] 59[address] September, [facility] [address] [id number] [place] [address]- 4902 September, [facility] [address] [id number] [place] [address]- 7364 September, Colon cancer screening V76.51 [facility] [address] [id number] [place] [address]- 1057 September, [facility] [address] [facility] [id number] [place] [address] Aug, [facility] [address] [id number] [place] [address]- 8149 Aug, [facility] [address] [id number], [place] [address]- 8770 Jul, [facility] [place] [facility] [address] [id number] [place] [address]- 3180 Jul, [facility] [address] [id number] [place] [address]- 3336 16 Jul, 2014 [facility] [address] [id number] [place] [address] Jul, [facility] [place] [facility] [address] [id number] [place] [address]- 3334 Jun, [facility] [place] [facility] [address] [id number] [place] [address]- 8785 Jun, [facility] [place] [facility] [address] [id number] [place] [address]- 2690 Jun, [facility] [place] [facility] [address] [id number] [place] [address]- 6694 Jun, [facility] [place] [facility] [address] [id number] [place] [address]- 1436 Jun, [facility] [place] [facility] [address] [id number] [place] [address]- 6421 Jun, [facility] [place] [facility] [address] [id number] [place] [address]- 0086 May, [facility] [place] [facility] [address] [id number] [place] [address]- 9508 May, [facility] [place] [facility] [address] [id number] [place] [address]- 3198 May, [facility] [place] [facility] [address] [id number] [place] [address]- 8220 May, [facility] [place] [facility] [address] [id number] [place] [address]- 1593 May, [facility] [place] [facility] [address] [id number], [place] [address]- 0894 May, [facility] [place] [facility] [address] [id number] [place] [address]- 1544 May, [facility] [place] [facility] [address] [id number] [place] [address]- 7885 May, [facility] [place] [facility] [address] [id number] [place] [address]- 4003 Apr, [facility] [place] [facility] [address] [id number] [place] [address]- 5898 Apr, [facility] [address] [id number] [place] [address]- 1806 Apr, [facility] [place] [facility] [address] [id number] [place] [address]- 9016 Apr, [facility] [place] [facility] [address] [id number] [place] [address]- 2278 Apr, [facility] [place] [facility] [address] [id number] [place] [address]- 9117 Apr, [facility] [place] [facility] [address] [id number] [place] [address]- 0214 Apr, [facility] [place] [facility] [address] [id number] [place] [address]- 3195 Apr, [facility] [place] [facility] [address] [id number] [place] [address]- 9271 Mar, [facility] [place] [facility] [address] [id number] [place] [address]- 5294 Mar, [facility] [place] [facility] [address] [id number] [place] [address]- 9031 Mar, [facility] [place] [facility] [address] [id number] [place] [address]- 2203 Mar, [facility] [place] [facility] [address] [id number] [place] [address]- 0951 Mar, [facility] [place] [facility] [address] [id number] [place] [address]- 6832 Mar, [facility] [place] [facility] [address] [id number] [place] [address]- 0228 Mar, [facility] [place] [facility] [address] [id number] [place] [address]- 5696 Mar, [facility] [place] [facility] [address] [id number] [place] [address]- 9363 Mar, [facility] [place] [facility] [address] [id number] [place] [address]- 4447 Mar, [facility] [place] [facility] [address] [id number] [place] [address]- 6937 Feb, [facility] [place] [facility] [address] [id number] [place] [address]- 5782 Feb, [facility] [place] [facility] [address] [id number] [place] [address]- 3892 Jan, [facility] [place] [facility] [address] [id number] [place] [address]- 8663 Jan, [facility] [place] [facility] [address] [id number] [place] [address]- 8964 Jan, [facility] [place] [facility] [address] [id number] [place] [address]- 9117 Jan, [facility] [place] [facility] [address] [id number] [place] [address]- 2098 Dec, [facility] [place] [facility] [address] [id number] [place] [address]- 5325 Dec, [facility] [place] [facility] [address] [id number] [place] [address]- 3314 Dec, [facility] [place] [facility] [address] [id number] [place] [address]- 8838 Dec, [facility] [place] [facility] [address] [id number] [place] [address]- 5385 Dec, [facility] [place] [facility] [address] [id number] [place] [address]- 4713 Dec, [facility] [place] [facility] [address] [id number] [place] [address]- 5912 Nov, [facility] [place] [facility] [address] [id number] [place] [address]- 5176 Nov, [facility] [place] [facility] [address] [id number] [place] [address]- 4795 Oct, [facility] [place] [facility] [address] [id number] [place] [address]- 6263 Oct, [facility] [place] [facility] [address] [id number] [place] [address]- 3932 Oct, [facility] [place] [facility] [address] [id number] [place] [address]- 4441 Oct, [facility] [place] [facility] [address] [id number] [place] [address]- 6832 September, [facility] [place] [facility] [address] [id number] [place] [address]- 0609 September, [facility] [place] [facility] [address] [id number] [place] [address]- 8935 September, [facility] [place] [facility] [address] [id number] [place] [address]- 2548 September, [facility] [place] [facility] [address] [id number] [place] [address]- 6993 September, [facility] [place] [facility] [address] [id number] [place] [address]- 0420 September, [facility] [place] [facility] [address] [id number] [place] [address]- 6339 September, [facility] [place] [facility] [address] [id number] [place] [address]- 8403 September, [facility] [place] [facility] [address] [id number] [place] [address]- 7562 Aug, [facility] [place] [facility] [address] [id number] [place] [address]- 9711 Aug, [facility] [place] [facility] [address] [id number] [place] [address]- 0321 Aug, [facility] [place] [facility] [address] [id number] [place] [address]- 9666 Aug, [facility] [place] [facility] [address] [id number] [place] [address]- 1253 Aug, [facility] [place] [facility] [address] [id number] [place] 4558 Aug, [facility] [place] [facility] [address] [id number] [place] [address]- 2757 Jul, [facility] [place] [facility] [address] [id number] [place] [address]- 9325 Jul, [facility] [place] [facility] [address] [id number] [place] [address]- 4785 Jul, [facility] [place] [facility] [address] [id number] [place] [address]- 7309 Jul, [facility] [place] [facility] [address] [facility] [id number] [place] [address]- 4043 Jun, [facility] [place] [facility] [address] [id number] [place] [address]- 4755 Jun, [facility] [place] [facility] [address] [id number] [place] [address]- 6141 Jun, [facility] [place] [facility] [address] [facility] [id number] [place] [address]- 5013 Jun, [facility] [place] [facility] [address] [facility] [id number] [place] [address]- 6369 Jun, [facility] [place] [facility] [address] [id number] [place] [address]- 0790 Jun, [facility] [place] [facility] [address] [id number] [place] [address]- 8652 May, [facility] [place] [facility] [address] [id number] [place] [address]- 5233 May, [facility] [place] [facility] [address] [id number] [place] [address]- 6859 May, [facility] [place] [facility] [address] [id number] [place] [address]- 2546 May, [facility] [address] [id number] [place] [address]- 9293 May, [facility] [address] [id number] [place] [address]- 4646 May, [facility] [address] [id number] [place] [address]- 3770 May, [facility] [address] [id number] [place] [address]- 6658 May, [facility] [address] [id number] [place] [address]- 9857 Apr, [facility] [place] [address] [place] [id number] 16 Apr, 2013 [facility] [address] [id number] [place] [address]- 8013 16 Apr, 2013 [facility] [address] [id number], [place] [address]- 7833 16 Apr, 2013 [facility] [address] [id number] [place] [address]- 0260 Apr, [facility] [address] [id number] [place] [address]- 8192 Apr, [facility] [address] [id number] [place] [address]- 1913 Apr, [facility] [address] [id number], [place] [address]- 5912 05 Apr, 2013 [facility] [address] [id number] [place] [address]- 5324 Apr, [facility] [address] [id number] [place] [address]- 3686 Mar, [facility] [address] [id number] [place] [address]- 0007 Mar, [facility] [address] [id number], [place] [address]- 5635 Mar, [facility] [place] [facility] [address] [id number] [place] [address]- 0282 Mar, [facility] [place] [facility] [address] [id number], [place] [address]- 8368 Mar, [facility] [place] [facility] [address] [id number] [place] [address]- 4173 Feb, [facility] [place] [facility] [address] [id number] [place] [address]- 9740 Feb, [facility] [place] [facility] [address] [id number] [place] [address]- 6194 Feb, [facility] [place] [facility] [address] [id number], [place] [address]- 2698 Feb, [facility] [place] [facility] [address] [id number], [place] [address]- 5307 Jan, [facility] [place] [facility] [address] [id number], [place] [address]- 3660 Jan, [facility] [place] [facility] [address] [id number], [place] [address]- 1486 Jan, [facility] [place] [facility] [address] [id number], [place] [address]- 4980 Dec, [facility] [place] [facility] [address] [id number], [place] [address]- 6018 Dec, [facility] [place] [facility] [address] [id number], [place] [address]- 4180 Dec, [facility] [address] [id number][place] [address] Nov, [facility] [address] [id number][place] [id number] Oct, [facility] [place] [facility] [address] [id number], [place] [address]- 8331 Oct, [facility] [place] [facility] [address] [id number] [place] [address]- 0009 September, [facility] [address] [id number] [place] [address]- 1281 September, [facility] [address] [id number] [place] [address]- 5614 September, [facility] [address] [id number] [place] [address]- 4576 September, [facility] [address] [id number] [place] [address]- 8391 September, [facility] [address] [id number] [place] [address]- 8529 Jul, [facility] [address] [id number] [place] [address]- 9907 Jul, [facility] [address] [id number] [place] [address] Jul, [facility] [address] [id number] [place] [address] Jul, [facility] [address] [id number] [place] [address] Jun, [facility] [address] [id number] [place] [address] Jun, [facility] [address] [id number] [place] [address] Jun, [facility] [address] [id number] [place] [address] Jun, [facility] [place] [facility] [address] [id number] [place] [address] May, [facility] [place] [facility] [address] [id number] [place] [address] Mar, [facility] [address] [id number] [place] [address] Mar, [facility] [place] [facility] [address] [id number], [place] [address] Mar, [facility] [place] [facility] [address] [facility] [id number] [place] [address] Mar, [facility] [place] [facility] [address] [facility] [id number], [place] [address] Mar, [facility] [place] [facility] [address] [facility] [id number] [place] [address] Mar, [facility] [place] [facility] [address] [id number] [place] [address] Mar, [facility] [place] [facility] [address] [facility] [id number] [place] [address] Mar, [facility] [place] [facility] [address] [facility] [id number] [place] [address] Feb, [facility] [place] [facility] [address] [facility] [id number], [place] [address] Feb, [facility] [place] [facility] [address] [facility] [id number], [place] [address] Feb, [facility] [place] [facility] [address] [facility] [id number], [place] [address] Feb, [facility] [place] [facility] [address] [facility] [id number], [place] [address] Feb, [facility] [place] [facility] [address] [facility] [id number], [place] [address] Feb, [facility] [place] [facility] [address] [facility] [id number], [place] [address] Feb, [facility] [address] [id number][place] [id number] Jan, [facility] [address] [id number][place] [id number] Dec, [facility] [address] [id number][place] [id number] Dec, [facility] [place] [facility] [address] [id number] [place] [address] Nov, [facility] [address] [id number] [place] [address] Nov, [facility] [address] [id number] [place] [address] Oct, [facility] [address] [id number] [place] [address] Jul, [facility] [address] [id number] [place] [address] Jul, [facility] [address] [id number] [place] [address] May, [facility] [address] [id number] [place] [address] May, [facility] [address] [id number] [place] [address] Nov, [facility] [address] [id number] [place] [address] Mar, [facility] [address] [id number] [place] [address] Dec, [facility] [address] [id number] [place] [address] Nov, [facility] [address] [id number] [place] [address] Aug, [facility] [place] [facility] [address] [id number] [place] [address] Apr, [facility] [place] [facility] [address] [id number] [place] [address] Apr, [facility] [place] [facility] [address] [id number] [place] [address] Mar, [facility] [address] [id number] [place] [address] Feb, [facility] [address] [facility] [id number] [place] [address] September, [facility] [address] [facility] [id number] [place] [address] Jun, [facility] [address] [facility] [id number] [place] [address] Mar, IMMUNIZATIONS No Known Immunizations SOCIAL HISTORY Never Assessed REASON FOR VISIT Weight check Yas RN PLAN OF CARE VITAL SIGNS Height 62 in 2017-02-18 Weight 230 lbs 2017-02-18 BMI 42.06 kg/m2 2017-02-18 MEDICATIONS Unknown Medications RESULTS No Results PROCEDURES [...] hernia Hospitalization History Went by ambulance to [place] as unresponsive 05/2015 Hospitalization History [place] sent her to [facility] for [facility] psych hold 05/2015
--- OUTSIDE RECORDS SUMMARY | 2018-03-15 11:14 | XMS REPORT ---
Author Author HERBERT MCGOWAN Organization [employer] Address Unknown Phone Unavailable Care Team Providers Care Carriage Rider Name Role Phone HERBERT MCGOWAN CP Unavailable [...] Date End Date Status Dosage Combivent Respimat [facility] [id number] 20-100 MCG/ACT Inhalation Four times a day 1 puff Results No Known Results Summary Purpose [employer] Submission
--- OUTSIDE RECORDS SUMMARY | 2018-03-15 11:14 | XMS REPORT ---
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 Name Role Phone HERBERT MCGOWAN Unavailable PROBLEMS Type Condition ICD9-CM Code RIU38-LO Code Onset Dates Condition Status SNOMED Code Problem Acquired hypothyroidism E03.9 Active 697887470 Problem Morbid obesity, unspecified obesity type E66.01 Active 020859307 Problem Gastro-esophageal reflux disease without esophagitis K21.9 Active 477306735 Problem Blindness of right eye H54.40 Active 697536275 Problem Other chronic pain G89.29 Active 80197741 Problem Essential hypertension I10 Active 78595178 Problem Psoriasis L40.9 Active 4232143 Problem Lumbago with sciatica, left side M54.42 Active 792473933 Problem Relationship problem with family member Z63.8 Active 101412930 Problem Visual disturbance H53.9 Active 68286810 Problem Bipolar disorder F31.9 Active 49620534 Problem Pelvic pain R10.2 Active 80901906 Problem Bilateral low back pain with sciatica, sciatica laterality unspecified M54.40 Active 996537991 Problem Chronic pain G89.29 Active 61042705 Problem Overdose T50.901A Active 04536008 Problem Posttraumatic stress disorder F43.10 Active 86046720 Problem Social anxiety disorder F40.10 Active 96587043 Problem Borderline personality disorder F60.3 Active 26699425 Problem Obstructive sleep apnea G47.33 Active 54885301 ALLERGIES Substance Reaction Event Type Date Status [...] Oct, Active ENCOUNTERS Encounter Location Date Diagnosis [facility] [address] [address] Aug, [facility] [id number] [place] [address] 24049- 7550 Aug, [facility] [id number] [place] [address] 12605- 6696 Jul, Bipolar disorder F31.9 ; Posttraumatic stress disorder F43.10 and Borderline personality disorder F60.3 [facility] [id number] [place] [address] 50563- 9253 Jul, [facility] [id number] [place] [address] 92913- 2135 Jun, Bipolar disorder F31.9 ; Posttraumatic stress disorder F43.10 and Borderline personality disorder F60.3 [facility] [id number] [place] [address] 11450- 2375 Jun, Blindness of right eye H54.40 and Acquired hypothyroidism E03.9 [facility] [id number] [place] [address] 63531- 2807 Jun, [facility] [id number] [place] [address] 66079- 5365 May, Posttraumatic stress disorder F43.10 ; Social anxiety disorder F40.10 and Bipolar disorder F31.9 [facility] [id number] [place] [address] 86304- 2211 May, Bipolar disorder F31.9 ; Posttraumatic stress disorder F43.10 and Borderline personality disorder F60.3 [facility] [id number] [place] [address] 31256- 2865 May, [facility] [id number] [place] [address] 19385- 8343 May, [facility] [id number] [place] [address] 03731- 7479 Apr, Bipolar disorder F31.9 ; Posttraumatic stress disorder F43.10 and Borderline personality disorder F60.3 [facility] [address] [id number] [id number] Apr, [facility] [id number] [place] [address] 43634- 9736 Apr, [facility] [address] [place] [address] 64786- 1817 Mar, Hydradenitis L73.2 [facility] [address] [place] [address] 12737- 8149 15 Mar, 2017 Lumbago with sciatica, left side M54.42 ; Other chronic pain G89.29 ; Morbid obesity, unspecified obesity type E66.01 ; Hydradenitis L73.2 and BMI 40.0-44.9, adult Z68.41 [facility] [address] [place] [address] 93458- 6158 Mar, Bipolar disorder F31.9 ; Posttraumatic stress disorder F43.10 and Borderline personality disorder F60.3 [facility] [address] [place] [address] 39478- 1489 Mar, Social anxiety disorder F40.10 ; Bipolar disorder F31.9 and Relationship problem with family member Z63.8 [facility] [address] [address] 4077 Mar, [address] [id number] [id number] Mar, Dental examination Z01.20 [facility] [address] [address]- 3533 Mar, [place] [address] [place] [address] 49442- 3261 Feb, Bipolar disorder F31.9 ; Posttraumatic stress disorder F43.10 and Borderline personality disorder F60.3 [facility] [id number] [id number] Feb, [facility] [address] [address] 0212 Jan, Bipolar disorder F31.9 ; Posttraumatic stress disorder F43.10 and Borderline personality disorder F60.3 [facility] [address] [id number] [id number] Jan, [facility] [address] [address]- 1477 Jan, [facility] [address] [id number] Jan, [facility] [id number] [place] [address] 89583- 5596 Dec, Bipolar disorder F31.9 ; Posttraumatic stress disorder F43.10 and Borderline personality disorder F60.3 [facility] [address] [place] [address] 71300- 0593 Dec, [facility] [address] [address]- 9362 Dec, [facility] [address] [id number] Dec, [facility] [address] [address]- 3635 Nov, Bipolar 1 disorder F31.9 ; Posttraumatic stress disorder F43.10 and Social anxiety disorder F40.10 [facility] [address] [address]- 3067 Nov, Bipolar disorder F31.9 ; Posttraumatic stress disorder F43.10 and Borderline personality disorder F60.3 [facility] [address] [address]- 1696 Nov, Morbid obesity, unspecified obesity type E66.01 [facility] [address] [address]- 1193 Nov, [facility] [address] [id number] [id number] Oct, Encounter for dental examination and cleaning without abnormal findings Z01.20 [place] [id number] [place] [address] 83675- 8198 15 Oct, 2016 Morbid obesity, unspecified obesity type E66.01 and Acute seasonal allergic rhinitis due to pollen J30.1 [place] [id number] [place] [address] 66204- 4733 Oct, Bipolar disorder F31.9 ; Posttraumatic stress disorder F43.10 and Borderline personality disorder F60.3 [place] [id number] [place] [address] 62943- 4769 September, Morbid obesity, unspecified obesity type E66.01 and Psoriasis L40.9 [place] [id number] [place] [address] 48773- 5035 September, Bipolar disorder F31.9 ; Posttraumatic stress disorder F43.10 and Borderline personality disorder F60.3 [place] [id number] [place] [address] 10676- 6684 September, Chronic pain G89.29 [place] [id number] [place] [address] 88219- 4872 Aug, Other acute nonsuppurative otitis media of right ear H65.191 and Morbid obesity, unspecified obesity type E66.01 [place] [address] [place] [address] 47302- 5508 Aug, Bipolar 1 disorder F31.9 ; Posttraumatic stress disorder F43.10 and Social anxiety disorder F40.10 [place] [address] [place] [address] 43650- 9264 Aug, Bipolar disorder F31.9 ; Posttraumatic stress disorder F43.10 and Borderline personality disorder F60.3 [place] [id number] [place] [address] 67769- 9324 Jul, Morbid obesity due to excess calories E66.01 ; Gastro- esophageal reflux disease without esophagitis K21.9 and Chronic pain G89.29 [facility] [address] [address]- 9808 15 Jul, 2016 Morbid obesity due to excess calories E66.01 [facility] [address] [place] [address] 74934- 2846 Jul, [facility] [id number] [place] [address] 75514- 5234 Jul, [facility] [id number] [place] [address] 07719- 2772 Jul, Morbid obesity due to excess calories E66.01 [facility] [id number] [place] [address] 86939- 1988 Jul, Bipolar disorder F31.9 ; Posttraumatic stress disorder F43.10 and Borderline personality disorder F60.3 [facility] [id number] [place] [address] 53199- 4095 Jun, [facility] [id number] [place] [address] 77017- 3919 Jun, Morbid obesity due to excess calories E66.01 [facility] [id number] [place] [address] 68855- 8807 Jun, [facility] [address] [place] [address] 08311- 8047 Jun, Morbid obesity, unspecified obesity type E66.01 [facility] [address] [place] [address] 52594- 8342 Jun, Bipolar disorder F31.9 ; Posttraumatic stress disorder F43.10 and Borderline personality disorder F60.3 [facility] [id number] [place] [address] 55349- 2662 Jun, [facility] [id number] [place] [address] 24073- 2139 Jun, [facility] [id number] [place] [address] 43763- 6698 Jun, Acquired hypothyroidism E03.9 and Morbid obesity due to excess calories E66.01 [facility] [address] [place] [address] 10034- 7184 May, Bipolar disorder F31.9 ; Posttraumatic stress disorder F43.10 and Borderline personality disorder F60.3 [facility] [address] [place] [address] 24589- 1311 Apr, Bipolar 1 disorder F31.9 ; Posttraumatic stress disorder F43.10 and Social anxiety disorder F40.[address] [id number][place] [id number] 12 Apr, 2016 Encounter for dental examination Z01.20 [facility] [id number] [place] [address] 05628- 2636 08 Apr, 2016 [facility] [id number] [place] [address] 03399- 8978 08 Apr, 2016 Acquired hypothyroidism E03.9 [facility] [id number] [place] [address] 26210- 3179 Apr, Acquired hypothyroidism E03.9 [facility] [id number] [place] [address] 23785- 5308 07 Apr, 2016 Bipolar disorder F31.9 ; Posttraumatic stress disorder F43.10 and Borderline personality disorder F60.3 [facility] [address] [place] [address] 70975- 9946 Apr, Acquired hypothyroidism E03.[address] [id number] [id number] 23 Mar, 2016 Encounter for dental examination and cleaning without abnormal findings Z01.20 [facility] [address] [place] [address] 28850- 8590 08 Mar, 2016 [facility] [address] [place] [address] 99381- 6844 08 Mar, 2016 Bipolar disorder F31.9 ; Posttraumatic stress disorder F43.10 and Borderline personality disorder F60.3 [facility] [address] [place] [address] 99909- 2033 Mar, Essential (primary) hypertension I10 [facility] [id number] [place] [address] 85255- 3038 Feb, [facility] [id number] [place] [address] 50523- 5671 14 Feb, 2016 [facility] [address] 96424- 9051 11 Feb, 2016 Pelvic pain R10.2 ; Lipid screening Z13.220 ; Fatigue, unspecified type R53.83 and Weight gain R63.5 [place] [id number] [place] [address] 70465- 2278 11 Feb, 2016 Bipolar disorder F31.9 ; Posttraumatic stress disorder F43.10 and Borderline personality disorder F60.3 [place] [id number] [place] [address] 60776- 2042 07 Feb, 2016 [facility] [id number] [place] [address] 42228- 4608 05 Feb, 2016 [facility] [id number] [place] [address] 44989- 7694 30 Jan, 2016 Obstructive sleep apnea syndrome G47.33 [facility] [id number] [place] [address] 46056- 5887 26 Jan, [address] [facility] [address] [id number] [id number] 19 Jan, 2016 Dental examination Z01.20 [facility] [id number] [place] [address] 53572- 3456 13 Jan, 2016 Bipolar 1 disorder F31.9 ; Posttraumatic stress disorder F43.10 and Social anxiety disorder F40.10 [facility] [address] [place] [address] 02652- 0422 13 Jan, 2016 Bipolar disorder F31.9 ; Posttraumatic stress disorder F43.10 and Borderline personality disorder F60.3 [facility] [address] [address]- 3466 Jan, Sciatica of left side M54.32 [facility] [address] [address]- 7466 Jan, [facility] [address] [place] [address] 19960- 7556 Dec, [facility] [id number] [place] [address] 28389- 8136 Dec, [facility] [id number] [place] [address] 11712- 1788 Dec, Bipolar disorder F31.9 ; Posttraumatic stress disorder F43.10 and Borderline personality disorder F60.3 [facility] [address] [place] [address] 14609- 6486 Nov, [facility] [id number] [place] [address] 21530- 8921 Nov, Insomnia, unspecified type G47.00 [facility] [address] [place] [address] 96631- 7949 Nov, Bipolar disorder F31.9 ; Posttraumatic stress disorder F43.10 and Borderline personality disorder F60.3 [facility] [address] [address] 2546 Nov, [facility] [address] [address] 2546 Nov, [facility] [address] [place] [address] 18873- 2975 Oct, Bipolar disorder F31.9 ; Posttraumatic stress disorder F43.10 and Borderline personality disorder F60.3 [facility] [address] [address] 2546 Oct, [facility] [id number] [place] [address] 56544- 7925 Oct, Essential (primary) hypertension I10 [facility] [address] [address]- 2084 September, Bipolar 1 disorder F31.9 ; Posttraumatic stress disorder F43.10 and Social anxiety disorder F40.10 [facility] [address] [address]- 0586 September, Bipolar disorder F31.9 ; Posttraumatic stress disorder F43.10 and Borderline personality disorder F60.[address] [id number] [id number] September, Encounter for dental examination and cleaning without abnormal findings Z01.20 [facility] [id number] [place] [address] 07622- 5850 September, [facility] [address] [place] [address] 15381- 7819 September, [facility] [address] [place] [address] 84265- 3751 Aug, [facility] [address] [place] [address] 57424- 7372 Aug, Bipolar disorder F31.9 ; Posttraumatic stress disorder F43.10 and Borderline personality disorder F60.3 [facility] [address] [address]- 7369 Aug, [facility] [address] [place] [address] 09262- 8620 Aug, [facility] [id number] [address]- 8197 Aug, [facility] [id number] [place] [address] [id number] Jul, Acute nasopharyngitis [common cold] J00 and Other viral agents as the cause of diseases classified elsewhere B97.89 [facility] [address] [place] [address] 93105- 4798 Jul, Chronic pain G89.29 and Allergic rhinitis J30.9 [facility] [address] [address]- 9261 24 Jul, 2015 Bipolar 1 disorder F31.9 ; Posttraumatic stress disorder F43.10 and Social anxiety disorder F40.10 [facility] [address] [address]- 0926 16 Jul, 2015 Bipolar 1 disorder F31.9 [facility] [id number] [place] [address] 99427- 0376 16 Jul, 2015 Bipolar disorder F31.9 ; Posttraumatic stress disorder F43.10 and Borderline personality disorder F60.3 [facility] [id number] [place] [address] 98691- 8936 14 Jul, 2015 [facility] [address] [place] [address] 14499- 2245 14 Jul, 2015 [facility] [id number] [place] [address] 10981- 8143 11 Jul, 2015 [facility] [address] [place] [address] 07132- 5378 10 Jul, 2015 Anxiety F41.9 [facility] [address] [place] [address] 97456- 4982 10 Jul, 2015 Chronic pain G89.29 and Encounter for therapeutic drug level monitoring Z51.81 [facility] [address] [place] [address] 99295 2547 09 Jul, 2015 Chronic pain G89.29 and Encounter for therapeutic drug level monitoring Z51.81 [facility] [address] [address]- 5912 08 Jul, 2015 [facility] [id number] [place] [address] 64763- 2256 Jun, [facility] [address] [address]- 8041 Jun, [facility] [id number] [place] [address] 11011- 4154 15 Jun, 2015 [facility] [id number] [place] [address] 73793- 5395 Jun, [facility] [id number] [place] [address] 97813- 0144 11 Jun, 2015 High risk medication use V58.69 [facility] [address] 65517- 0288 Jun, [facility] [id number] [place] [address] 53883- 4876 Jun, Bipolar 1 disorder F31.9 ; Overdose T50.901A and Chronic pain G89.29 [facility] [id number] [place] [address] 23335- 2771 Jun, Bipolar disorder F31.9 ; Posttraumatic stress disorder F43.10 and Borderline personality disorder F60.3 [facility] [id number] [place] [address] 33070- 7985 08 Jun, 2015 [facility] [id number] [place] [address] 19961- 5570 Jun, [facility] [id number] [place] [address] 99871- 7067 Jun, Keloid L91.0 [facility] [id number] [place] [address] 85165- 6955 Jun, [facility] [id number] [place] [address] 71473- 0026 May, [facility] [address] 15985- 5494 May, [facility] [id number] [place] [address] 04049- 7838 May, Pelvic pain R10.2 [facility] [address] 41592- 3648 May, [facility] [address] [address]- 9790 May, Pain of left thumb M79.645 ; Incisional pain R20.8 ; Pelvic pain R10.2 and Essential hypertension I10 [facility] [address] [address]- 9969 May, [facility] [id number] [place] [address] 49574- 5887 May, [address] [id number][place] [id number] May, Dental examination Z01.20 and Necrosis of pulp K04.1 [facility] [address] [place] [address] 14750- 0409 Apr, [facility] [id number] [place] [address] 36801- 9332 Apr, [facility] [id number] [place] [address] 14095- 8915 Apr, [facility] [id number] [place] [address] 53323- 0096 Apr, [facility] [address] [address]- 7955 Apr, [facility] [address] [place] [address] 14358- 2689 Apr, [facility] [address] [address]- 2544 Apr, [facility] [address] [place] [address] 99216- 7373 Apr, [facility] [address] [address]- 5852 Mar, [facility] [id number] [place] [address] 27885- 8902 Mar, [facility] [address] [id number] [address]- 3193 Mar, [facility] [address] [facility] [id number] [place] [address]- 8615 Mar, [facility] [address] [facility] [id number] [place] [address]- 2206 Feb, [facility] [address] [facility] [id number] [place] [address] 41288- 9812 Feb, [facility] [address] [facility] [place] [facility] [id number] [address] Feb, [facility] [id number] [place] [address] Feb, [facility] [id number] [address] Feb, [facility] [id number] [place] [address] Feb, [facility] [id number] [address] Feb, [facility] [id number] [place] [address] Feb, Dermatofibroma of left lower leg D23.72 [facility] [address]65[address] [address] Feb, Hematochezia 578.1 ; Low back pain M54.5 ; High risk medication use V58.69 ; Cervicalgia M54.2 and Anxiety F41.[address] [facility] [address] [id number] [id number] Feb, Dental examination Z01.20 ; Pulpitis K04.0 and Dental caries, unspecified K02.[address] [facility] [address] [id number] [id number] Feb, Dental examination Z01.20 [facility] [address] [id number] [place] [address] Jan, [facility] [address] [id number] [place] [address] Jan, [facility] [address] [id number] [place] [address] 4[address] Jan, [facility] [address] [id number] [place] [address] 3789 Jan, [facility] [address] [id number] [place] [address] 8853 Dec, [facility] [address] [id number] [place] [address] 4166 Dec, [facility] [address] [id number] [place] [address] 3360 Dec, [facility] [address] [id number] [place] [address] 4219 Dec, [facility] [address] [id number] [address] 96[address] Dec, [facility] [address] [id number] [address] 5735 Dec, [facility] [address] [id number] [address] 1087 Dec, [facility] [address] [id number] [address]01 Dec, [facility] [address] [facility] [id number] [id number] Nov, Encounter for removal of sutures V58.32 [facility] [address] [id number] [place] [address] 57[address] Nov, [facility] [address] [id number] [address] 8865 Nov, [facility] [address] [id number] [address] 0793 Nov, [facility] [address]00565100[place] [address] 9005 Nov, [facility] [id number] [place] [address]- 5421 Nov, [facility] [address]00565100[place] [address] 0623 Nov, [facility] [id number] [place] [address]- 1048 Nov, [facility] [id number] [place] [address] 265[address]- 6472 Nov, Dermatofibroma 216.9 [facility] [id number] [place] [address] 88[address]- 4513 Nov, [facility] [id number] [place] [address] 00181- 3934 Nov, [facility] [address] [id number] [address] 6702 Oct, [facility] [id number] [place] [address]- 9150 Oct, Hematochezia 578.1 ; Abscess 682.9 ; GERD (gastroesophageal reflux disease) 530.81 ; Visual disturbance of one eye 368.9 and High risk medication use V58.69 [facility] [address]00565100[place] [address] 7641 Oct, [facility] [address]00565100[place] [address]- 5270 Oct, [facility] [address] [id number] [address]- 1086 Oct, [facility] [address]00565100[place] [address]- 9259 September, [facility] [address]00565100[place] [address]- 8264 September, [facility] [address] [id number] [place] [address] 3112 September, [facility] [place] [facility] [address] [id number] [place] [address]- 1314 September, [facility] [place] [facility] [address] [facility] [id number] [place] [address]- 7850 September, [facility] [place] [facility] [address] [facility] [id number] [place] [address]- 3170 September, Colon cancer screening V76.51 [facility] [place] [facility] [address] [id number] [place] [address]- 2908 September, [facility] [place] [facility] [address] [facility] [id number] [place] [address]- 4228 Aug, [facility] [place] [facility] [address] [facility] [id number] [place] [address]- 0684 Aug, [facility] [place] [facility] [address] [facility] [id number] [place] [address]- 9525 Jul, [facility] [place] [facility] [address] [facility] [id number] [place] [address]- 7480 Jul, [facility] [place] [facility] [address] [facility] [id number] [place] [address]- 1878 Jul, [facility] [place] [facility] [address] [facility] [id number] [place] [address]- 9922 Jul, [facility] [place] [facility] [address] [facility] [id number] [place] [address]- 7033 Jun, [facility] [place] [facility] [address] [id number] [place] Jun, [facility] [place] [facility] [address] [facility] [id number] [place] [address] Jun, [facility] [place] [facility] [address] [facility] [id number] [place] [address]- 1884 Jun, [facility] [place] [facility] [address] [id number] [place] [address]- 9593 Jun, [facility] [place] [facility] [address] [id number] [place] [address] Jun, [facility] [place] [facility] [address] [id number] [place] [address]- 0629 May, [facility] [place] [facility] [address] [id number] [place] [address]- 3292 May, [facility] [place] [facility] [address] [id number] [place] [address]- 5931 May, [facility] [place] [facility] [address] [id number] [place] [address]- 3955 May, [facility] [place] [facility] [address] [id number] [place] [address]- 5412 May, [facility] [place] [facility] [address] [id number] [place] [address]- 0429 May, [facility] [place] [facility] [address] [id number] [place] [address]- 1587 May, [facility] [place] [facility] [address] [id number] [place] [address]- 1140 May, [facility] [place] [facility] [address] [id number] [place] [address]- 8081 Apr, [facility] [place] [facility] [address] [id number] [place] [address]- 3989 Apr, [facility] [place] [facility] [address] [id number] [place] [address]- 7053 Apr, [facility] [place] [facility] [address] [id number] [place] [address]- 6335 Apr, [facility] [place] [facility] [address] [id number] [place] [address]682 Apr, [facility] [place] [facility] [address] [id number] [place] [address]- 0271 Apr, [facility] [place] [facility] [address] [id number] [place] [address]- 8627 Apr, [facility] [place] [facility] [address] [id number] [place] [address]- 9102 Apr, [facility] [place] [facility] [address] [id number] [place] [address]- 0838 Mar, [facility] [place] [facility] [address] [id number] [place] [address]- 0653 Mar, [facility] [place] [facility] [address] [id number] [place] [address]- 4812 Mar, [facility] [place] [facility] [address] [id number] [place] [address]- 3015 Mar, [facility] [place] [facility] [address] [id number] [place] [address]- 7714 Mar, [facility] [place] [facility] [address] [id number] [address]- 4118 Mar, [facility] [place] [facility] [address] [id number] [address]- 4171 Mar, [facility] [place] [facility] [address] [id number] [address]- 0248 Mar, [facility] [place] [facility] [address] [id number] [place] [address]- 1329 Mar, [facility] [place] [facility] [address] [id number] [address]- 3900 Mar, [facility] [place] [facility] [address] [id number] [address]- 4999 Feb, [facility] [place] [facility] [address] [id number] [place] [address]- 0075 Feb, [facility] [place] [facility] [address] [id number] [address]- 2826 Jan, [facility] [place] [facility] [address] [id number] [place] [address]- 4661 Jan, [facility] [place] [facility] [address] [id number] [place] [address]- 8035 Jan, [facility] [place] [facility] [address] [id number] [place] [address]- 5797 Jan, [facility] [place] [facility] [address] [id number] [place] [address]- 0578 Dec, [facility] [place] [facility] [address] [id number] [place] [address]- 0941 Dec, [facility] [place] [facility] [address] [id number] [place] [address]- 4853 Dec, [facility] [place] [facility] [address] [id number] [place] [address]- 3014 Dec, [facility] [place] [facility] [address] [id number] [place] [address]- 9116 Dec, [facility] [place] [facility] [address] [id number] [place] [address]- 1939 Dec, [facility] [place] [facility] [address] [id number] [place] [address]- 9674 Nov, [facility] [place] [facility] [address] [id number] [place] [address]- 9056 Nov, [facility] [place] [facility] [address] [id number] [place] [address]- 7843 Oct, [facility] [place] [facility] [address] [id number] [place] [address]- 1948 Oct, [facility] [place] [facility] [address] [id number] [place] [address]- 2097 Oct, [facility] [place] [facility] [address] [id number] [place] [address]- 3302 Oct, [facility] [place] [facility] [address] [id number] [place] [address]- 9476 September, [facility] [place] [facility] [address] [id number] [place] [address]- 2767 September, [facility] [address] [id number] [place] [address]- 1241 September, [facility] [place] [facility] [address] [id number] [place] [address]- 3360 September, [facility] [place] [facility] [address] [id number] [place] [address]- 6836 September, [facility] [address] [id number] [place] [address]- 2969 September, [facility] [place] [facility] [address] [id number] [place] [address]- 3811 September, [facility] [address] [id number] [place] [address]- 3985 September, [facility] [address] [id number] [place] [address]- 0243 Aug, [facility] [place] [facility] [address] [id number] [place] [address]- 1512 Aug, [facility] [place] [facility] [address] [id number] [place] [address]- 4639 Aug, [facility] [place] [facility] [address] [id number] [place] [address]- 8448 Aug, [facility] [place] [facility] [address] [id number] [place] [address]- 3184 Aug, [facility] [place] [facility] [address] [id number] [place] [address]- 5369 Aug, [facility] [place] [facility] [address] [id number] [place] [address]- 1486 Jul, [facility] [place] [facility] [address] [id number] [place] [address]- 4054 Jul, [facility] [place] [facility] [address] [id number] [place] [address]- 6965 Jul, [facility] [place] [facility] [address] [id number] [place] [address]- 2279 Jul, [facility] [place] [facility] [address] [id number] [place] [address]- 9086 Jun, [facility] [place] [facility] [address] [id number] [place] [address]- 8046 Jun, [facility] [place] [facility] [address] [id number] [place] [address]- 1076 Jun, [facility] [place] [facility] [address] [id number] [place] [address]- 0259 Jun, [facility] [place] [facility] [address] [id number] [place] [address]- 7241 Jun, [facility] [place] [facility] [address] [id number] [place] [address]- 6732 Jun, [facility] [place] [facility] [address] [id number] [place] [address]- 7403 May, [facility] [place] [facility] [address] [id number] [place] [address]- 5998 May, [facility] [place] [facility] [address] [id number] [place] [address]- 2887 May, [facility] [place] [facility] [address] [id number] [place] [address]- 1036 May, [facility] [place] [facility] [address] [id number] [place] [address]- 4914 May, [facility] [place] [facility] [address] [id number] [place] [address]- 1401 May, [facility] [place] [facility] [address] [id number] [place] [address]- 5791 May, [facility] [place] [facility] [address] [id number] [address]- 3699 May, [facility] [place] [facility] [address] [id number] [place] [address]- 8997 16 Apr, 2013 [facility] [place] [facility] [id number] 16 Apr, 2013 [facility] [address] [id number] [place] [address]- 2696 16 Apr, 2013 [facility] [address] [id number] [place] [address]- 7688 16 Apr, 2013 [facility] [address] [id number] [place] [address]- 1490 Apr, [facility] [address] [id number] [place] [address]- 8173 Apr, [facility] [address] [id number] [place] [address]- 5229 05 Apr, 2013 [facility] [address] [id number] [place] [address]- 5605 05 Apr, 2013 [facility] [address] [id number] [place] [address]- 1028 04 Apr, 2013 [facility] [address] [id number] [place] [address]- 2246 Mar, [facility] [address] [id number] [place] [address]- 6488 Mar, [facility] [address] [id number] [place] [address]- 3654 Mar, [facility] [address] [id number] [place] [address]- 3224 Mar, [facility] [address] [id number] [place] [address]- 1388 Mar, [facility] [address] [id number] [place] [address]- 5501 Feb, [facility] [address] [id number] [place] [address]- 5198 Feb, [facility] [address] [id number] [place] [address]- 3785 Feb, [facility] [address] [id number] [place] [address]- 0943 Feb, [facility] [address] [id number] [place] [address]- 6986 Jan, [facility] [address] [id number] [place] [address]- 0024 Jan, [facility] [address] [id number] [place] [address]- 6991 Jan, [facility] [address] [id number] [place] [address]- 8266 Dec, [facility] [address] [id number] [place] [address]- 2662 Dec, [facility] [address] [id number] [place] [address]- 2588 Dec, [facility] [address] [id number] [place] [id number] Nov, [facility] [address] [facility] [address] [id number] [address] Oct, [facility] [address] [id number] [place] [address]- 7966 Oct, [facility] [address] [id number] [place] [address]- 9866 September, [facility] [address] [id number] [place] [address]- 0006 September, [facility] [place] [facility] [address] [id number] [place] [address]- 8726 September, [facility] [place] [facility] [address] [id number] [place] [address]- 2546 September, [facility] [place] [facility] [address] [id number] [place] [address]- 0852 September, [facility] [place] [facility] [address] [id number] [place] [address]- 7286 Jul, [facility] [place] [facility] [address] [id number] [place] [address]- 8866 Jul, [facility] [place] [facility] [address] [id number] [place] [address]- 5205 Jul, [facility] [place] [facility] [address] [id number] [place] [address]- 0675 Jul, [facility] [place] [facility] [address] [id number] [place] [address]- 1296 Jun, [facility] [place] [facility] [address] [id number] [place] [address]- 0188 Jun, [facility] [place] [facility] [address] [id number] [place] [address]- 3510 Jun, [facility] [place] [facility] [address] [id number] [place] [address]- 0598 Jun, [facility] [place] [facility] [address] [id number] [place] [address]- 5084 May, [facility] [place] [facility] [address] [id number] [place] [address]- 7014 Mar, [facility] [place] [facility] [address] [id number] [place] [address]- 7901 Mar, [facility] [place] [facility] [address] [id number] [place] [address]- 8110 Mar, [facility] [place] [facility] [address] [id number] [place] [address]- 0891 Mar, [facility] [place] [facility] [address] [id number] [place] [address]- 8078 Mar, [facility] [place] [facility] [address] [id number] [place] [address]- 2116 Mar, [facility] [place] [facility] [address] [id number] [place] [address]- 6722 Mar, [facility] [place] [facility] [address] [id number] [place] [address]- 5756 Mar, [facility] [place] [facility] [address] [id number] [place] 1844 Feb, [facility] [place] [facility] [address] [id number] [place] [address]- 3111 Feb, [facility] [place] [facility] [address] [id number] [place] [address]- 7365 Feb, [facility] [place] [facility] [address] [facility] [id number] [place] [address]- 3703 Feb, [facility] [place] [facility] [address] [facility] [id number] [place] [address]- 2041 Feb, [facility] [place] [facility] [address] [facility] [id number] [place] [address]- 9993 Feb, [facility] [place] [facility] [address] [facility] [id number] [address]- 7973 Feb, [facility] [address] [facility] [id number] [id number] Jan, [facility] [address] [facility] [id number] [id number] Dec, [facility] [address] [id number][place] [id number] Dec, [facility] [place] [facility] [address] [facility] [id number] [address]- 2176 Nov, [facility] [place] [facility] [address] [facility] [id number] [place] [address]- 2934 Nov, [facility] [place] [facility] [address] [facility] [id number] [place] [address]- 0595 Oct, [facility] [place] [facility] [address] [facility] [id number] [place] [address]- 9329 Jul, [facility] [place] [facility] [address] [facility] [id number] [address]- 9756 13 Jul, 2011 [facility] [address] [facility] [id number] [address]- 4346 May, [facility] [address] [facility] [id number] [place] [address] 2546 May, [facility] [address] [facility] [id number] [place] [address]- 9266 Nov, [facility] [address] [facility] [id number] [place] [address] 2546 30 Mar, 2010 [facility] [address] [facility] [id number] [address] Dec, [facility] [address] [facility] [id number] [address] Nov, [facility] [id number] [address] Aug, [facility] [address] [facility] [id number] [address] Apr, [facility] [id number] [address] Apr, [facility] [address] [id number] [address] Mar, [facility] [address] [id number] [address] Feb, [facility] [address] [facility] [id number] [address] September, [facility] [address] [id number] [address] Jun, [facility] [address] [id number] [address] Mar, IMMUNIZATIONS No Known Immunizations SOCIAL HISTORY Never Assessed REASON FOR VISIT Weight management. Pt very happy with her weight loss thus far. SOULEYMANE White PLAN OF CARE Activity Details Follow Up 4 Weeks Reason:wt mgmt VITAL SIGNS Height 62 in 2016-10-28 Weight 232 lbs 2016-10-28 Temperature 98.6 degrees Fahrenheit 2016-10-28 Heart Rate 82 bpm 2016-10-28 Respiratory Rate 20 2016-10-28 BMI 42.43 kg/m2 2016-10-28 Blood pressure systolic 120 mmHg 2016-10-28 Blood pressure diastolic 80 mmHg 2016-10-28 MEDICATIONS Medication Instructions Dosage Frequency Start Date End Date Duration Status Cymbalta 60 mg Orally Once a day with Cymbalta 30mg. Total dose is 90mg 1 capsule Active Losartan Potassium-HCTZ 50-12.5 MG Orally Once a day 1 tablet 24h Active Triamcinolone Acetonide 0.5 % Externally Twice a day 1 application to affected area 12h September, Active Cymbalta 30 MG Orally Once a day with Cymbalta 60mg. Total dose 90mg 1 capsule along with 60mg Active Doxepin HCl 10 mg Orally Once at bedtime for sleep 1 capsule at bedtime September, Active Tizanidine HCl 2 MG Orally Once a day 1 tablet as needed 24h Feb, 90 days Active Creon 69360 UNIT Orally 3 times a day 1 capsule before meals 8h Nov, 90 days Active Loratadine 10 mg Orally 2 times a day 1 tablet 12h September, 90 days Active Depo-Estradiol 5 MG/ML Intramuscular once monthly 1 ml Active Contrave 8-90 MG Orally Twice a day 2 tablets 12h Jun, 30 days Active Combivent Respimat 20-100 MCG/ACT Inhalation Four times a day 1 puff 6h 30 Active Imitrex 50 mg Orally Once a day 1 tablet as needed at start of migraine 24h 30 Active Atorvastatin Calcium 20 MG Orally Once a day 1 tablet 24h Active Fish Oil 300 MG Orally Once a day 1 capsule 24h Active Lamotrigine 150 MG Orally Once a day 1 tablet 24h Active Oxygen 2 L/NC Active Levothyroxine Sodium 25 MCG 1 tablet on an empty stomach in the morning Once a day Orally 30 day(s) 30 90 Active Gabapentin 300 MG Orally 3 times a day 1 tablet 8h Active Dicyclomine HCl 20 mg 1 tablet Four times a day Orally 30 days 90 Active Carafate 1 GM Orally 4 times a day 1 tablet on an empty stomach 6h 90 Active RESULTS No Results PROCEDURES No Known [...] hernia Hospitalization History Went by ambulance to [facility] as unresponsive 05/2015 Hospitalization History [facility] sent her to [facility] for a psych hold 05/2015
--- OUTSIDE RECORDS SUMMARY | 2018-03-15 11:14 | XMS REPORT ---
Author Author HERBERT MCGOWAN [facility] e[employer] Address Unknown Phone Unavailable Care Team Providers Care Dental Specialist Name Role Phone HERBERT MCGOWAN CP Unavailable [...]
[2018-03-15] MEDS ORDERED: NS IV 1000 ML 1,000 ML IV SCH ×2 (11:15→14:23)
--- OUTSIDE RECORDS SUMMARY | 2018-03-15 11:15 | XMS REPORT ---
Author Author HERBERT MCGOWAN [facility] e[employer] Address Unknown Phone Unavailable Care Team Providers Care Director [employer] Name Role Phone HERBERT MCGOWAN CP Unavailable [...] Instructions Start Date End Date Status Dosage Carafate [facility] [id number] 1 GM Orally 4 times a day 1 tablet on an empty stomach Results No Known Results Summary Purpose eClinicalWorks Submission
--- OUTSIDE RECORDS SUMMARY | 2018-03-15 11:15 | XMS REPORT ---
Author Author HERBERT MCGOWAN [facility] e[employer] Address Unknown Phone Unavailable Care Team Providers Care Self Sealing Fuel Tank Repairer Name Role Phone HERBERT MCGOWAN CP Unavailable [...]
--- OUTSIDE RECORDS SUMMARY | 2018-03-15 11:15 | XMS REPORT ---
Author Author SAMI SUAREZ [facility] eClinical[employer] Address Unknown Phone Unavailable Care Team Providers Care Sash Maker Name Role Phone SAMI SUAREZ Unavailable Allergies No Known Allergies Problems Problem Type Condition Code Onset Dates Condition Status Assessment Borderline personality disorder F60.3 Active Problem Hypertrophy of breast 611.1 Active Assessment Posttraumatic stress disorder F43.10 Active Problem Screening mammogram for high-risk patient V76.11 Active Assessment Bipolar disorder F31.9 Active Problem Other dyspnea and [...] Active Problem Esophageal reflux 530.81 Active Medications No Known Medications Procedures Procedure Coding System Code Date Psychotherapy, patient &/family, 45 minutes, established patient CPT-4 89954 September 03, 2015 Results No Known Results Summary Purpose eClinicalWorks Submission
--- OUTSIDE RECORDS SUMMARY | 2018-03-15 11:15 | XMS REPORT ---
Author Author HERBERT MCGOWAN [facility] eClinicalWorks Address Unknown Phone Unavailable Care Team Providers Care Concrete Journeyman Name Role Phone HERBERT MCGOWAN CP Unavailable [...]
--- OUTSIDE RECORDS SUMMARY | 2018-03-15 11:15 | XMS REPORT ---
Author Author HERBERT MCGOWAN Organization eClinical[employer] Address Unknown Phone Unavailable Care Team Providers Care Hydroelectric Plant Electrician Name Role Phone HERBERT MCGOWAN CP Unavailable [...] Start Date End Date Status Dosage Cymbalta [facility] [address]-59 60 MG Orally Once a day 1 capsule Bentyl [facility] [address]-43 20 MG Jun 07, 2014 1 tablet by Oral route every 6 hours PRN Combivent Respimat [facility] [address]-78 20-100 MCG/ACT Inhalation Four times a day 1 puff Cyclobenzaprine HCl [facility] [address]-49 10 MG Orally 2 times a day PRN November 04, 2014 1 tablet Carafate [facility] [address]-94 1 GM Orally 4 times a day 1 tablet on an empty stomach Zolpidem Tartrate [facility] [address]-00 10 MG Orally Once a day 1 tablet at bedtime as needed Results No Known Results Summary Purpose eClinicalWorks Submission
--- OUTSIDE RECORDS SUMMARY | 2018-03-15 11:16 | XMS REPORT ---
Author Author HERBERT MCGOWAN [facility] Address [address] [place] [address] Care Team Providers Care Quality Assurance Tester Name Role Phone HERBERT MCGOWAN Unavailable PROBLEMS Type Condition ICD9-CM Code [id number] Code Onset Dates Condition Status SNOMED Code Problem Chronic pain G89.29 Active 05177411 Problem Social anxiety disorder F40.10 Active 49196459 Problem Encounter for dental examination and cleaning without abnormal findings Z01.20 Active 217760580 Problem Essential hypertension I10 Active 57170601 Problem Psoriasis L40.9 Active 1148686 Problem Acquired hypothyroidism E03.9 Active 562621549 Problem Obstructive sleep apnea G47.33 Active 78562176 Problem Morbid obesity, unspecified obesity type E66.01 Active 762243873 Problem Gastro-esophageal reflux disease without esophagitis K21.9 Active 718872620 Problem Pelvic pain R10.2 Active 58410186 Problem Bilateral low back pain with sciatica, sciatica laterality unspecified M54.40 Active 402952351 Problem Borderline personality disorder F60.3 Active 55917400 Problem Bipolar disorder F31.9 Active 66611264 Problem Visual disturbance H53.9 Active 61216424 Problem Overdose T50.901A Active 71544144 Problem Posttraumatic stress disorder F43.10 Active 02712867 Problem Bipolar 1 disorder F31.9 Active 579172026 ALLERGIES No Information SOCIAL HISTORY Never Assessed PLAN OF CARE VITAL SIGNS MEDICATIONS Medication [...] hernia Hospitalization History Went by ambulance to [facility] as unresponsive 05/2015 Hospitalization History [facility] sent her to [facility] for a psych hold 05/2015
--- OUTSIDE RECORDS SUMMARY | 2018-03-15 11:16 | XMS REPORT ---
Author Author HERBERT MCGOWAN [facility] eClinicalWorks Address Unknown Phone Unavailable Care Team Providers Care Caustic Plant Worker Name Role Phone HERBERT MCGOWAN CP Unavailable [...]
--- OUTSIDE RECORDS SUMMARY | 2018-03-15 11:16 | XMS REPORT ---
Author Author CARYL FRANZ Organization [facility] Address [address] [place] [address] Care Team Providers Care Er Tech Name Role Phone OSEILOWELLA Unavailable PROBLEMS Type Condition ICD9-CM Code NJW83-EN Code Onset Dates Condition Status SNOMED Code Problem Acquired hypothyroidism E03.9 Active 318007149 Problem Morbid obesity, unspecified obesity type E66.01 Active 439407298 Problem Gastro-esophageal reflux disease without esophagitis K21.9 Active 944105106 Problem Blindness of right eye H54.40 Active 055949006 Problem Other chronic pain G89.29 Active 48684897 Problem Essential hypertension I10 Active 03434587 Problem Psoriasis L40.9 Active 9005389 Problem Lumbago with sciatica, left side M54.42 Active 085210358 Problem Relationship problem with family member Z63.8 Active 321698352 Problem Visual disturbance H53.9 Active 75203436 Problem Bipolar disorder F31.9 Active 57768288 Problem Pelvic pain R10.2 Active 46182399 Problem Bilateral low back pain with sciatica, sciatica laterality unspecified M54.40 Active 142993240 Problem Chronic pain G89.29 Active 40196382 Problem Overdose T50.901A Active 30336773 Problem Posttraumatic stress disorder F43.10 Active 13797734 Problem Social anxiety disorder F40.10 Active 69344914 Problem Borderline personality disorder F60.3 Active 48504923 Problem Obstructive sleep apnea G47.33 Active 48080461 ALLERGIES No Information ENCOUNTERS Encounter Location Date Diagnosis [facility] [id number] [address] Aug, [facility] [id number], [place] [address] Aug, [facility] [id number], [place] [address] Jul, Bipolar disorder F31.9 ; Posttraumatic stress disorder F43.10 and Borderline personality disorder F60.3 [facility] [address] [place] [address] 14625- 9634 Jul, [facility] [address] [place] [address] 03936- 3689 Jun, Bipolar disorder F31.9 ; Posttraumatic stress disorder F43.10 and Borderline personality disorder F60.3 [facility] [id number] [place] [address] 97067- 4442 Jun, Blindness of right eye H54.40 and Acquired hypothyroidism E03.9 [facility] [id number] [place] [address] 19373- 2595 Jun, [facility] [id number] [place] [address] 73811- 4570 May, Posttraumatic stress disorder F43.10 ; Social anxiety disorder F40.10 and Bipolar disorder F31.9 [facility] [address] [place] [address] 14783- 2526 May, Bipolar disorder F31.9 ; Posttraumatic stress disorder F43.10 and Borderline personality disorder F60.3 [facility] [address] [place] [address] 74546- 3947 May, [facility] [address] [place] [address] 67246- 2529 May, [facility] [address] [place] [address] 76700- 3822 Apr, Bipolar disorder F31.9 ; Posttraumatic stress disorder F43.10 and Borderline personality disorder F60.3 [id number] [id number] Apr, [facility] [address] [place] [address] 43989- 5973 Apr, [facility] [address] [place] [address] 00739- 5693 Mar, Hydradenitis L73.2 [address] [address] [place] [address] 65526- 1362 15 Mar, 2017 Lumbago with sciatica, left side M54.42 ; Other chronic pain G89.29 ; Morbid obesity, unspecified obesity type E66.01 ; Hydradenitis L73.2 and BMI 40.0-44.9, adult Z68.41 [place] [id number] [place] [address] 00985- 0407 Mar, Bipolar disorder F31.9 ; Posttraumatic stress disorder F43.10 and Borderline personality disorder F60.3 [place] [id number] [place] [address] 92935- 5990 Mar, Social anxiety disorder F40.10 ; Bipolar disorder F31.9 and Relationship problem with family member Z63.8 [id number] [place] [address] 19552- 7396 Mar, [address] [id number] [place] [id number] Mar, Dental examination Z01.20 [place] [address] [place] [address] 72233- 7768 Mar, [place] [address] [place] [address] 35147- 3501 Feb, Bipolar disorder F31.9 ; Posttraumatic stress disorder F43.10 and Borderline personality disorder F60.3 [facility] [address] [id number] [place] [id number] Feb, [place] [address] [place] [address] 55619- 1335 14 Jan, 2017 Bipolar disorder F31.9 ; Posttraumatic stress disorder F43.10 and Borderline personality disorder F60.3 [facility] [address] [id number] [place] [id number] Jan, [place] [address] [place] [address] 30087- 2051 Jan, [facility] [address] [id number] [id number] Jan, [place] [address] [place] [address] 33768- 2744 Dec, Bipolar disorder F31.9 ; Posttraumatic stress disorder F43.10 and Borderline personality disorder F60.3 [place] [address] [place] [address] 59571- 7245 Dec, [place] [address] [place] [address] 88002- 3633 Dec, [facility] [id number] [place] [id number] Dec, [place] [address] [place] [address] 63399- 4902 Nov, Bipolar 1 disorder F31.9 ; Posttraumatic stress disorder F43.10 and Social anxiety disorder F40.10 [place] [address] [place] [address] 17704- 1106 Nov, Bipolar disorder F31.9 ; Posttraumatic stress disorder F43.10 and Borderline personality disorder F60.3 [place] [address], [place] [address] 2570 Nov, Morbid obesity, unspecified obesity type E66.01 [place] [address], [place] [address] 3477 Nov, [address] [id number] [place] [id number] Oct, Encounter for dental examination and cleaning without abnormal findings Z01.20 [place] [id number] [place] [address] 36334- 6224 15 Oct, 2016 Morbid obesity, unspecified obesity type E66.01 and Acute seasonal allergic rhinitis due to pollen J30.1 [place] [address] [place] [address] 65115- 1688 Oct, Bipolar disorder F31.9 ; Posttraumatic stress disorder F43.10 and Borderline personality disorder F60.3 [place] [address] 82728- 6854 September, Morbid obesity, unspecified obesity type E66.01 and Psoriasis L40.9 [address] [address] [address]- 7276 September, Bipolar disorder F31.9 ; Posttraumatic stress disorder F43.10 and Borderline personality disorder F60.3 [place] [address] 72585- 3634 September, Chronic pain G89.29 [place] [address] 91675- 6498 Aug, Other acute nonsuppurative otitis media of right ear H65.191 and Morbid obesity, unspecified obesity type E66.01 [place] [address] 64858- 3528 Aug, Bipolar 1 disorder F31.9 ; Posttraumatic stress disorder F43.10 and Social anxiety disorder F40.10 [place] [address] 64773- 8445 Aug, Bipolar disorder F31.9 ; Posttraumatic stress disorder F43.10 and Borderline personality disorder F60.3 [place] [id number] [place] [address] 95656- 3854 Jul, Morbid obesity due to excess calories E66.01 ; Gastro- esophageal reflux disease without esophagitis K21.9 and Chronic pain G89.29 [place] [id number] [place] [address] 72309- 1970 Jul, Morbid obesity due to excess calories E66.01 [place] [id number] [place] [address] 08084- 6023 Jul, [place] [address] 90294- 5605 Jul, [facility] [address], [place] [address]- 0476 Jul, Morbid obesity due to excess calories E66.01 [facility] [address] [place] [address] 62953- 2423 Jul, Bipolar disorder F31.9 ; Posttraumatic stress disorder F43.10 and Borderline personality disorder F60.3 [facility] [id number] [place] [address] 88580- 7246 16 Jun, 2016 [facility] [id number] [place] [address] 24597- 3332 15 Jun, 2016 Morbid obesity due to excess calories E66.01 [facility] [address] [place] [address] 93249- 0656 Jun, [facility] [id number] [place] [address] 00172- 8751 09 Jun, 2016 Morbid obesity, unspecified obesity type E66.01 [facility] [address] [place] [address] 08796- 8726 03 Jun, 2016 Bipolar disorder F31.9 ; Posttraumatic stress disorder F43.10 and Borderline personality disorder F60.3 [facility] [address] [place] [address] 07998- 8008 Jun, [facility] [address] [place] [address] 89068 2546 Jun, [facility] [id number] [place] [address] 91921- 2542 02 Jun, 2016 Acquired hypothyroidism E03.9 and Morbid obesity due to excess calories E66.01 [facility] [address] [place] [address] 48028- 8950 May, Bipolar disorder F31.9 ; Posttraumatic stress disorder F43.10 and Borderline personality disorder F60.3 [facility] [address] [place] [address] 67102- 3354 13 Apr, 2016 Bipolar 1 disorder F31.9 ; Posttraumatic stress disorder F43.10 and Social anxiety disorder F40.[address] [id number] [place] [id number] 12 Apr, 2016 Encounter for dental examination Z01.20 [facility] [address] [place] [address] 17273- 9585 08 Apr, 2016 [facility] [id number] [place] [address] 844758- 8367 08 Apr, 2016 Acquired hypothyroidism E03.9 [facility] [id number] [place] [address] 522733- 5711 Apr, Acquired hypothyroidism E03.9 [facility] [id number] [place] [address] 93172- 8563 07 Apr, 2016 Bipolar disorder F31.9 ; Posttraumatic stress disorder F43.10 and Borderline personality disorder F60.3 [facility] [address] [place] [address] 44838- 4908 06 Apr, 2016 Acquired hypothyroidism E03.[address] [id number] [place] [id number] 23 Mar, 2016 Encounter for dental examination and cleaning without abnormal findings Z01.20 [facility] [address] [place] [address] 42074- 1202 08 Mar, 2016 [facility] [id number] [place] [address] 94932- 8181 08 Mar, 2016 Bipolar disorder F31.9 ; Posttraumatic stress disorder F43.10 and Borderline personality disorder F60.3 [facility] [id number] [place] [address] 14829- 9991 Mar, Essential (primary) hypertension I10 [facility] [id number] [place] [address] 43244- 3380 Feb, [facility] [address] 71135- 5327 Feb, [place] [address] [place] [address] 69888- 4699 11 Feb, 2016 Pelvic pain R10.2 ; Lipid screening Z13.220 ; Fatigue, unspecified type R53.83 and Weight gain R63.5 [place] [address] [place] [address] 47672- 9611 11 Feb, 2016 Bipolar disorder F31.9 ; Posttraumatic stress disorder F43.10 and Borderline personality disorder F60.3 [place] [id number] [place] [address] 15304- 0051 07 Feb, 2016 [place] [address] 90916- 2983 05 Feb, 2016 [place] [address] [place] [address] 33024- 5893 30 Jan, 2016 Obstructive sleep apnea syndrome G47.33 [id number] [place] [address] 78950- 7491 26 Jan, [address] [id number] [place] [id number] 19 Jan, 2016 Dental examination Z01.20 [place] [id number] [place] [address] 46787- 9423 13 Jan, 2016 Bipolar 1 disorder F31.9 ; Posttraumatic stress disorder F43.10 and Social anxiety disorder F40.10 [place] [address] [place] [address] 64314- 1706 13 Jan, 2016 Bipolar disorder F31.9 ; Posttraumatic stress disorder F43.10 and Borderline personality disorder F60.3 [place] [id number] [place] [address] 93924- 6988 13 Jan, 2016 Sciatica of left side M54.32 [place] [address] [place] [address] 13525- 1723 06 Jan, 2016 [place] [id number] [place] [address] 82109- 9139 Dec, [facility] [address] [place] [address] 71171- 9436 Dec, [facility] [id number] [place] [address] 24715- 6086 Dec, Bipolar disorder F31.9 ; Posttraumatic stress disorder F43.10 and Borderline personality disorder F60.3 [facility] [address] [place] [address] 77856- 6369 Nov, [facility] [address] [place] [address] 65624- 4199 Nov, Insomnia, unspecified type G47.00 [facility] [address] [place] [address] 13672- 9245 Nov, Bipolar disorder F31.9 ; Posttraumatic stress disorder F43.10 and Borderline personality disorder F60.3 [facility] [address] [place] [address] 78907- 6072 Nov, [facility] [address] [place] [address] 10385- 7310 Nov, [facility] [address] [place] [address] 25582- 4908 Oct, Bipolar disorder F31.9 ; Posttraumatic stress disorder F43.10 and Borderline personality disorder F60.3 [facility] [address] [place] [address] 81795- 1004 Oct, [facility] [address] [place] [address] 65022- 0003 Oct, Essential (primary) hypertension I10 [facility] [address] [place] [address] 66088- 8031 September, Bipolar 1 disorder F31.9 ; Posttraumatic stress disorder F43.10 and Social anxiety disorder F40.10 [facility] [address] [place] [address] 96725- 3606 September, Bipolar disorder F31.9 ; Posttraumatic stress disorder F43.10 and Borderline personality disorder F60.3 [facility] [address] [id number] [place] [id number] September, Encounter for dental examination and cleaning without abnormal findings Z01.20 [facility] [address] [place] [address] 99708- 8301 September, [facility] [id number] [place] [address] 46812- 0316 September, [facility] [address] [place] [address] 76274- 5741 Aug, [facility] [address] [place] [address] 24474- 8365 Aug, Bipolar disorder F31.9 ; Posttraumatic stress disorder F43.10 and Borderline personality disorder F60.3 [facility] [address] [place] [address] 88192- 2855 Aug, [facility] [address] [place] [address] 51107- 9826 Aug, [facility] [id number] [place] [address] 30578- 5453 Aug, [facility] [address] [place] [address] [id number] Jul, Acute nasopharyngitis [common cold] J00 and Other viral agents as the cause of diseases classified elsewhere B97.89 [facility] [address] [place] [address] 45797- 6974 Jul, Chronic pain G89.29 and Allergic rhinitis J30.9 [facility] [address] [place] [address] 50982- 1636 Jul, Bipolar 1 disorder F31.9 ; Posttraumatic stress disorder F43.10 and Social anxiety disorder F40.10 [facility] [address] [place] [address] 81909- 1419 Jul, Bipolar 1 disorder F31.9 [facility] [address], [place] [address]- 8452 16 Jul, 2015 Bipolar disorder F31.9 ; Posttraumatic stress disorder F43.10 and Borderline personality disorder F60.3 [facility] [address], [place] [address] 2546 14 Jul, 2015 [facility] [address] [place] [address] 63099 2546 14 Jul, 2015 [facility] [address] [place] [address] 06634 2546 11 Jul, 2015 [facility] [address] [place] [address] 63601- 9236 10 Jul, 2015 Anxiety F41.9 [facility] [address] [place] [address] 99113- 4156 10 Jul, 2015 Chronic pain G89.29 and Encounter for therapeutic drug level monitoring Z51.81 [facility] [address] [place] [address] 45109 2542 09 Jul, 2015 Chronic pain G89.29 and Encounter for therapeutic drug level monitoring Z51.81 [facility] [address] [place] [address] 20842- 2984 08 Jul, 2015 [facility] [address], [place] [address]- 9992 19 Jun, 2015 [facility] [address] [place] [address] 71833- 0296 19 Jun, 2015 [facility] [address], [place] [address]- 6622 15 Jun, 2015 [facility] [address] [place] [address] 39989- 7626 15 Jun, 2015 [facility] [address], [place] [address]- 4805 11 Jun, 2015 High risk medication use V58.69 [facility] [address] [place] [address] 62208- 2740 Jun, [facility] [address] [place] [address] 91578- 8181 Jun, Bipolar 1 disorder F31.9 ; Overdose T50.901A and Chronic pain G89.29 [facility] [address] [place] [address] 42000- 3993 Jun, Bipolar disorder F31.9 ; Posttraumatic stress disorder F43.10 and Borderline personality disorder F60.3 [facility] [address] [place] [address] 01326- 3383 Jun, [facility] [address] 75869- 6657 Jun, [facility] [address] [place] [address] 85406- 4183 Jun, Keloid L91.0 [facility] [address] [place] [address] 70679- 3535 Jun, [facility] [address] [place] [address] 85711- 7037 May, [facility] [address] [place] [address] 92090- 1272 May, [facility] [address] [place] [address] 83500- 9467 May, Pelvic pain R10.2 [facility] [address] [place] [address] 37104- 8402 May, [facility] [address] [place] [address] 95470- 6851 May, Pain of left thumb M79.645 ; Incisional pain R20.8 ; Pelvic pain R10.2 and Essential hypertension I10 [facility] [id number] [place] [address] 03259- 2887 May, [facility] [address] [facility] [id number] [address]- 0912 May, [facility] [address] [place] [address] [address] [id number] [place] [id number] May, Dental examination Z01.20 and Necrosis of pulp K04.1 [facility] [address] [facility] [id number] [address]- 5676 Apr, [facility] [address] [facility] [id number], [place] [address]- 5097 Apr, [facility] [address] [facility] [id number][place] [address]- 5985 Apr, [facility] [address] [facility] [id number], [place] [address]- 3533 Apr, [facility] [address] [facility] [id number][place] [address]- 3647 Apr, [facility] [address] [facility] [id number], [place] [address]- 5959 Apr, [facility] [address] [facility] [id number], [place] [address]- 2502 Apr, [facility] [address] [facility] [id number], [place] [address]- 7547 Apr, [facility] [address] [facility] [id number], [place] [address]- 3684 Mar, [facility] [address] [facility] [id number], [place] [address] Mar, [facility] [place] [facility] [address] [facility] [id number], [place] [address] Mar, [facility] [place] [facility] [address] [facility] [id number], [place] [address] Mar, [facility] [place] [facility] [address] [facility] [id number], [place] [address] Feb, [facility] [place] [facility] [id number], [place] [address] Feb, [facility] [id number], [place] [address] Feb, [facility] [id number], [place] [address] Feb, [facility] [id number] [place] [address] Feb, [facility] [id number] [place] [address] Feb, [facility] [id number] [place] [address]- [address] Feb, [facility] [id number] [place] [address]- [address] Feb, Dermatofibroma of left lower leg D23.72 [facility] [id number] [place] [address]- [address] Feb, Hematochezia 578.1 ; Low back pain M54.5 ; High risk medication use V58.69 ; Cervicalgia M54.2 and Anxiety F41.[address] [id number] [id number] Feb, Dental examination Z01.20 ; Pulpitis K04.0 and Dental caries, unspecified K02.[address] [id number] [place] [id number] Feb, Dental examination Z01.20 [facility] [id number], [place] [address] Jan, [facility] [id number], [place] [address] Jan, [facility] [id number], [place] [address] Jan, [facility] [id number], [place] [address] Jan, [facility] [address] [id number] [place] [address] Dec, [facility] [address] [id number], [place] [address] Dec, [facility] [address] [id number] [place] [address] Dec, [facility] [address] [id number], [place] [address] Dec, [facility] [address] [id number] [place] [address] Dec, [facility] [address] [address] [id number], [place] [address] Dec, [facility] [id number], [place] [address] Dec, [facility] [address] [id number], [place] [address] Dec, [facility] [place] [id number] [id number] Nov, Encounter for removal of sutures V58.32 [facility] [address] [id number], [place] [address] Nov, [facility] [address] [id number], [place] [address] Nov, [facility] [address] [id number], [place] [address] Nov, [facility] [address] [facility] [id number], [place] [address] Nov, [facility] [address] [id number], [place] [address] 8798 Nov, [facility] [address] [facility] [id number], [place] [address] Nov, [facility] [id number], [place] [address] Nov, [facility] [id number], [place] [address] Nov, Dermatofibroma 216.9 [facility] [id number], [place] [address] 1541 Nov, [facility] [id number], [place] [address] Nov, [facility] [id number], [place] [address] Oct, [facility] [id number], [place] [address] Oct, Hematochezia 578.1 ; Abscess 682.9 ; GERD (gastroesophageal reflux disease) 530.81 ; Visual disturbance of one eye 368.9 and High risk medication use V58.69 [facility] [id number], [place] [address] Oct, [facility] [id number], [place] [address] 4516 Oct, [facility] [id number], [place] [address] 5[address] Oct, [facility] [id number], [place] [address] 3[address] September, [facility] [address] [id number], [place] [address] 0346 September, [facility] [address] [id number], [place] [address] 0119 September, [facility] [id number], [place] [address] 3703 September, [facility] [address] [id number], [place] [address] 3[address] September, [facility] [address] [facility] [id number] [place] [address] 0140 September, Colon cancer screening V76.51 [facility] [place] [facility] [address] [id number] [place] [address] 2036 September, [facility] [place] [facility] [address] [facility] [id number] [place] [address] 3347 Aug, [facility] [place] [facility] [address] [facility] [id number] [place] [address] 6672 Aug, [facility] [place] [facility] [address] [facility] [id number] [place] [address]- 9521 Jul, [facility] [place] [facility] [address] [id number] [place] [address] 6861 Jul, [facility] [place] [facility] [address] [id number] [place] [address] 3556 Jul, [facility] [place] [facility] [address] [facility] [id number], [place] [address] 8922 Jul, [facility] [place] [facility] [address] [facility] [id number] [place] [address] 3628 Jun, [facility] [place] [facility] [address] [id number], [place] [address]- 6455 Jun, [facility] [place] [facility] [address] [id number] [place] [address] 5148 Jun, [facility] [place] [facility] [address] [facility] [id number], [place] [address] 9[address] Jun, [facility] [place] [facility] [address] [facility] [id number] [place] [address]- 8882 Jun, [facility] [place] [facility] [address] [facility] [id number], [place] [address]- 5446 Jun, [facility] [place] [facility] [address] [facility] [id number] [place] [address]- 8229 May, [facility] [place] [facility] [address] [facility] [id number] [place] [address]- 9941 May, [facility] [address] [id number] [place] [address]- 2462 May, [facility] [place] [facility] [address] [id number] [place] [address]- 7576 May, [facility] [place] [facility] [address] [id number] [place] [address]- 0040 May, [facility] [place] [facility] [address] [id number] [place] [address]- 7095 May, [facility] [place] [facility] [address] [id number] [place] [address]- 9911 May, [facility] [place] [facility] [address] [id number] [place] [address]- 8115 May, [facility] [address] [id number] [place] [address]- 7402 Apr, [facility] [place] [facility] [address] [id number] [place] [address]- 1604 Apr, [facility] [place] [facility] [address] [id number] [place] [address]- 3728 Apr, [facility] [place] [facility] [address] [id number] [place] [address]- 6464 Apr, [facility] [place] [facility] [address] [id number] [place] [address]- 4031 Apr, [facility] [place] [facility] [address] [id number] [place] [address]- 6290 Apr, [facility] [place] [facility] [address] [id number] [place] [address]- 3921 Apr, [facility] [place] [facility] [address] [id number] [place] [address] Apr, [facility] [place] [facility] [address] [id number] [place] [address]- 0184 Mar, [facility] [place] [facility] [address] [id number] [place] [address]- 1761 Mar, [facility] [place] [facility] [address] [id number] [place] [address]- 7062 Mar, [facility] [place] [facility] [address] [id number] [place] [address]- 1839 Mar, [facility] [place] [facility] [address] [id number] [place] [address]- 3231 Mar, [facility] [place] [facility] [address] [id number] [place] [address]- 6306 Mar, [facility] [place] [facility] [address] [id number] [place] [address]- 1264 Mar, [facility] [place] [facility] [address] [id number] [place] [address]- 2166 Mar, [facility] [place] [facility] [address] [id number] [place] [address]- 5287 Mar, [facility] [place] [facility] [address] [id number] [place] [address]- 4974 Mar, [facility] [place] [facility] [address] [id number] [place] [address]- 9299 Feb, [facility] [place] [facility] [address] [id number] [place] [address]- 0570 Feb, [facility] [place] [facility] [address] [id number] [place] [address]- 8673 Jan, [facility] [place] [facility] [address] [id number] [place] [address]- 3806 25 Jan, 2014 [facility] [place] [facility] [address] [id number] [place] [address]- 0605 18 Jan, 2014 [facility] [place] [facility] [address] [id number] [place] [address]- 7441 18 Jan, 2014 [facility] [place] [facility] [address] [id number] [place] [address]- 7178 Dec, [facility] [place] [facility] [address] [id number] [place] [address]- 9401 Dec, [facility] [place] [facility] [address] [id number] [place] [address]- 6191 Dec, [facility] [place] [facility] [address] [id number] [place] [address]- 3608 Dec, [facility] [place] [facility] [address] [id number] [place] [address]- 5430 Dec, [facility] [place] [facility] [address] [id number] [place] [address]- 8474 Dec, [facility] [place] [facility] [address] [id number] [place] [address]- 3597 Nov, [facility] [place] [facility] [address] [id number] [place] [address]- 2161 Nov, [facility] [place] [facility] [address] [id number] [place] [address]- 4665 Oct, [facility] [place] [facility] [address] [id number] [place] [address]- 6158 Oct, [facility] [place] [facility] [address] [id number] [place] [address]- 6002 Oct, [facility] [place] [facility] [address] [id number] [place] [address]- 2056 Oct, [facility] [place] [facility] [address] [id number] [place] [address]- 5368 September, [facility] [place] [facility] [address] [id number] [place] [address]- 5512 September, [facility] [place] [facility] [address] [id number] [place] [address]- 6614 September, [facility] [place] [facility] [address] [id number] [place] [address]- 3568 September, [facility] [place] [facility] [address] [id number] [place] [address]- 5621 September, [facility] [address] [id number] [place] [address]- 4776 September, [facility] [address] [id number] [place] [address]- 7188 September, [facility] [address] [id number] [place] [address]- 1261 September, [facility] [address] [id number] [place] [address]- 8374 Aug, [facility] [address] [id number] [place] [address]- 7047 Aug, [facility] [address] [id number] [place] [address]- 4008 Aug, [facility] [address] [id number] [place] [address]- 5258 Aug, [facility] [address] [id number] [place] [address]- 2227 Aug, [facility] [address] [id number] [place] [address]- 4738 Aug, [facility] [address] [id number] [place] [address]- 8230 Jul, [facility] [place] [facility] [address] [id number] [place] [address]- 8470 Jul, [facility] [address] [id number] [place] [address]- 2380 Jul, [facility] [place] [facility] [address] [id number] [place] [address]- 7100 Jul, [facility] [place] [facility] [address] [id number] [place] [address]- 3345 Jun, [facility] [place] [facility] [address] [id number] [place] [address]70 Jun, [facility] [address] [id number] [place] [address]- 8787 Jun, [facility] [address] [id number] [place] [address]- 0115 Jun, [facility] [address] [id number] [place] [address]- 6638 Jun, [facility] [address] [id number] [place] [address]- 2158 Jun, [facility] [address] [id number] [place] [address]- 6249 May, [facility] [address] [id number] [place] [address]- 9101 May, [facility] [address] [id number] [place] [address]- 5543 May, [facility] [address] [id number] [place] [address]- 9251 May, [facility] [address] [id number] [place] [address]- 5004 May, [facility] [address] [id number] [place] [address]- 3107 May, [facility] [address] [id number], [place] [address]- 2913 May, [facility] [address] [id number], [place] [address]- 3479 May, [facility] [address] [facility] [id number] [place] [address]- 7843 Apr, [facility] [address] [place] [id number] Apr, [facility] [address] [id number] [place] [address]- 2436 Apr, [facility] [address] [id number], [place] [address]- 0086 16 Apr, 2013 [facility] [address] [id number] [place] [address]- 8014 Apr, [facility] [place] [facility] [address] [id number] 2390 Apr, [facility] [place] [facility] [address] [id number] [place] [address]- 0993 05 Apr, 2013 [facility] [place] [facility] [address] [id number], [place] [address]- 7658 05 Apr, 2013 [facility] [place] [facility] [address] [id number] [place] [address]- 8363 Apr, [facility] [place] [facility] [address] [id number], [place] [address]- 5779 Mar, [facility] [place] [facility] [address] [id number], [place] [address]- 8717 Mar, [facility] [place] [facility] [address] [id number], [place] [address]- 2946 Mar, [facility] [place] [facility] [address] [id number], [place] [address]- 5892 Mar, [facility] [place] [facility] [address] [id number], [place] [address]- 8784 Mar, [facility] [place] [facility] [address] [id number], [place] [address]- 9397 Feb, [facility] [place] [facility] [address] [id number], [place] [address]- 7729 25 Feb, 2013 [facility] [place] [facility] [address] [id number], [place] [address]- 1503 14 Feb, 2013 [facility] [place] [facility] [address] [id number], [place] [address]- 0966 14 Feb, 2013 [facility] [place] [facility] [address] [id number], [place] [address]- 9478 25 Jan, 2013 [facility] [place] [facility] [address] [id number] [place] [address]- 1626 Jan, [facility] [address] [id number] [place] [address]- 9946 Jan, [facility] [address] [id number] [place] [address]- 2546 Dec, [facility] [address] [id number] [place] [address] 2546 Dec, [facility] [address] [id number] [place] [address]- 2546 Dec, [facility] [place] [address] [facility] [address] [id number] [place] [id number] Nov, [facility] [address] [facility] [id number] [place] [address] Oct, [facility] [address] [id number], [place] [address]- 6636 Oct, [facility] [address] [id number], [place] [address]- 2546 September, [facility] [address] [id number] [place] [address]- 7546 September, [facility] [address] [facility] [id number], [place] [address]- 2546 September, [facility] [address] [id number] [place] [address]- 2546 September, [facility] [address] [id number], [place] [address]- 2546 September, [facility] [address] [id number] [place] [address]- 6676 Jul, [facility] [place] [facility] [address] [id number] [place] [address]- 2546 Jul, [facility] [address] [id number] [place] [address]- 2546 Jul, [facility] [place] [facility] [address] [id number] [place] [address]- 7789 Jul, [facility] [place] [facility] [address] [id number] [place] [address]- 0684 Jun, [facility] [place] [facility] [address] [id number] [place] [address]- 2546 Jun, [facility] [place] [facility] [address] [id number] [place] [address]- 3815 Jun, [facility] [place] [facility] [address] [id number] [place] [address]- 5376 Jun, [facility] [place] [facility] [address] [id number] [place] [address]- 3629 May, [facility] [place] [facility] [address] [facility] [id number] [place] [address]- 8936 Mar, [facility] [place] [facility] [address] [id number] [place] [address]- 8210 Mar, [facility] [place] [facility] [address] [id number] [place] [address]- 3326 Mar, [facility] [place] [facility] [address] [facility] [id number] [place] [address]- 9652 Mar, [facility] [place] [facility] [address] [facility] [id number] [place] [address]- 1301 Mar, [facility] [place] [facility] [address] [id number], [place] [address]- 8564 Mar, [facility] [place] [facility] [address] [id number] [place] [address]- 1926 Mar, [facility] [place] [facility] [address] [id number] [place] [address]- 1220 Mar, [facility] [place] [facility] [address] [id number] [place] [address]- 6976 Feb, [facility] [place] [facility] [address] [id number], [place] [address]- 2546 Feb, [facility] [place] [facility] [address] [id number] [place] [address]- 8683 Feb, [facility] [place] [facility] [address] [facility] [id number], [place] [address]- 5436 Feb, [facility] [place] [facility] [address] [facility] [id number], [place] [address]- 0436 Feb, [facility] [place] [facility] [address] [id number], [place] [address]- 5156 Feb, [facility] [place] [facility] [address] [id number] [place] [address]- 5786 Feb, [facility] [address] [id number] [place] [address] Jan, [facility] [address] [id number] [place] [address] Dec, [facility] [address] [facility] [id number] [place] [address] Dec, [facility] [place] [facility] [address] [facility] [id number], [place] [address]- 3698 Nov, [facility] [place] [facility] [address] [facility] [id number], [place] [address]- 1336 Nov, [facility] [place] [facility] [address] [facility] [id number], [place] [address]- 0341 Oct, [facility] [place] [facility] [address] [facility] [id number], [place] [address]- 6692 15 Jul, 2011 [facility] [place] [facility] [address] [id number], [place] [address]- 0820 Jul, [facility] [place] [facility] [address] [facility] [id number] [place] [address]- 2589 May, [facility] [place] [facility] [address] [facility] [id number], [place] [address]- 4586 24 May, 2011 [facility] [place] [facility] [address] [facility] [id number], [place] [address]- 6597 Nov, [facility] [address] [id number], [place] [address]- 9316 Mar, [facility] [id number], [place] [address]- 4376 Dec, [facility] [id number], [place] [address]- 5451 Nov, [facility] [id number], [place] [address]- 1485 Aug, [facility] [id number], [place] [address]- 2726 Apr, [facility] [id number] [place] [address]- 4886 Apr, [facility] [id number], [place] [address]- 2446 Mar, [facility] [id number], [place] [address]- 8558 Feb, [facility] [id number], [place] [address]- 5952 September, [facility] [id number], [place] [address]- 0918 Jun, [facility] [id number], [place] [address]- 5463 Mar, IMMUNIZATIONS No Known Immunizations SOCIAL HISTORY Never Assessed REASON FOR VISIT Refill request PLAN OF CARE VITAL SIGNS MEDICATIONS Medication Instructions Dosage Frequency Start Date End Date Duration Status Gabapentin 300 MG Orally 3 times a day 1 tablet 8h 30 days Active RESULTS No Results PROCEDURES [...] hernia Hospitalization History Went by ambulance to [place] as unresponsive 05/2015 Hospitalization History [place] [facility] sent her to [facility] for a psych hold 05/2015
--- OUTSIDE RECORDS SUMMARY | 2018-03-15 11:16 | XMS REPORT ---
Author Author HERBERT MCGOWAN [facility] Address [address] [place] [address] Care Team Providers Care Anesthesiologist Assistant Name Role Phone HERBERT MCGOWAN Unavailable PROBLEMS Type Condition ICD9-CM Code DPK21-UT Code Onset Dates Condition Status SNOMED Code Problem Encounter for dental examination and cleaning without abnormal findings Z01.20 Active 053699448 Problem Obstructive sleep apnea G47.33 Active 56818476 Problem Social anxiety disorder F40.10 Active 26302913 Problem Relationship problem with family member Z63.8 Active 809139613 Problem Essential hypertension I10 Active 48100693 Problem Gastro-esophageal reflux disease without esophagitis K21.9 Active 090718671 Problem Acquired hypothyroidism E03.9 Active 254539161 Problem Psoriasis L40.9 Active 2243952 Problem Morbid obesity, unspecified obesity type E66.01 Active 328809095 Problem Bilateral low back pain with sciatica, sciatica laterality unspecified M54.40 Active 329720678 Problem Pelvic pain R10.2 Active 40111095 Problem Posttraumatic stress disorder F43.10 Active 29577203 Problem Borderline personality disorder F60.3 Active 56861349 Problem Visual disturbance H53.9 Active 91981488 Problem Overdose T50.901A Active 85901662 Problem Bipolar disorder F31.9 Active 01127448 Problem Chronic pain G89.29 Active 35927282 ALLERGIES Substance Reaction Event Type Date Status Sulfamethoxazole-Trimethoprim Unknown Drug Allergy September, Active Iodine Unknown Drug Allergy September, Active Codeine Sulfate Unknown Drug Allergy September, Active Aspirin Unknown Drug Allergy September, Active shell fish Unknown Non Drug Allergy September, Active IVP dye Unknown Non Drug Allergy September, Active tape Unknown Non Drug Allergy September, Active strawberries Unknown Non Drug Allergy September, Active tomatoes Unknown Non Drug Allergy September, Active SOCIAL HISTORY Never Assessed PLAN OF CARE Activity Details Follow Up 4 Weeks Reason:weight mgmt VITAL SIGNS Height 62 in 2016-09-29 Weight 241.3 lbs 2016-09-29 Temperature 99.2 degrees Fahrenheit 2016-09-29 Heart Rate 80 bpm 2016-09-29 Respiratory Rate 20 2016-09-29 BMI 44.13 kg/m2 2016-09-29 Blood pressure systolic 120 mmHg 2016-09-29 Blood pressure diastolic 72 mmHg 2016-09-29 MEDICATIONS Medication Instructions Dosage Frequency Start Date End Date Duration Status Loratadine 10 mg Orally 2 times a day 1 tablet 12h September, 90 days Active Combivent Respimat 20-100 MCG/ACT Inhalation Four times a day 1 puff 6h 30 Active Triamcinolone Acetonide 0.5 % Externally Twice a day 1 application to affected area 12h September, Active Contrave 8-90 MG Orally Twice a day 2 tablets 12h Jun, 30 days Active Oxygen 2 L/NC Active Cymbalta 60 mg Orally Once a day with Cymbalta 30mg. Total dose is 90mg 1 capsule Active Gabapentin 300 MG Orally 3 times a day 1 tablet 8h Active Levothyroxine Sodium 25 MCG 1 tablet on an empty stomach in the morning Once a day Orally 30 day(s) 30 90 Active Lamotrigine 150 MG Orally Once a day 1 tablet 24h Active Imitrex 50 mg Orally Once a day 1 tablet as needed at start of migraine 24h 30 Active Losartan Potassium-HCTZ 50-12.5 MG Orally Once a day 1 tablet 24h Active Tizanidine HCl 2 MG Orally Once a day 1 tablet as needed 24h Feb, 90 days Active Dicyclomine HCl 20 mg 1 tablet Four times a day Orally 30 days 90 Active Creon 15134 UNIT Orally 3 times a day 1 capsule before meals 8h Nov, 90 days Active Doxepin HCl 10 mg Orally Once at bedtime for sleep 1 capsule at bedtime September, Active Atorvastatin Calcium 20 MG Orally Once a day 1 tablet 24h Active Cymbalta 30 MG Orally Once a day with Cymbalta 60mg. Total dose 90mg 1 capsule along with 60mg Active RESULTS No Results PROCEDURES No Known [...] Hospitalization History Went by ambulance to [place] as unresponsive 05/2015 Hospitalization History [place] sent her to [facility] for a psych hold 05/2015
--- OUTSIDE RECORDS SUMMARY | 2018-03-15 11:16 | XMS REPORT ---
Author Author HERBERT MCGOWAN [facility] Address [address] [place] [address] Care Team Providers Care Card Painter Name Role Phone HERBERT MCGOWAN Unavailable PROBLEMS Type Condition ICD9-CM Code [id number] Code Onset Dates Condition Status SNOMED Code Problem Chronic pain G89.29 Active 56271787 Problem Social anxiety disorder F40.10 Active 30140423 Problem Encounter for dental examination and cleaning without abnormal findings Z01.20 Active 918163070 Problem Essential hypertension I10 Active 04797489 Problem Psoriasis L40.9 Active 0052206 Problem Acquired hypothyroidism E03.9 Active 723886207 Problem Obstructive sleep apnea G47.33 Active 05542054 Problem Morbid obesity, unspecified obesity type E66.01 Active 930023199 Problem Gastro-esophageal reflux disease without esophagitis K21.9 Active 771948763 Problem Pelvic pain R10.2 Active 57632043 Problem Bilateral low back pain with sciatica, sciatica laterality unspecified M54.40 Active 942972064 Problem Borderline personality disorder F60.3 Active 75449085 Problem Bipolar disorder F31.9 Active 48974860 Problem Visual disturbance H53.9 Active 24429774 Problem Overdose T50.901A Active 42712166 Problem Posttraumatic stress disorder F43.10 Active 01745024 Problem Bipolar 1 disorder F31.9 Active 501539421 ALLERGIES Substance Reaction Event Type Date Status Sulfamethoxazole-Trimethoprim Unknown Drug Allergy Aug, Active Iodine Unknown Drug Allergy Aug, Active Codeine Sulfate Unknown Drug Allergy Aug, Active Aspirin Unknown Drug Allergy Aug, Active strawberries Unknown Non Drug Allergy Aug, Active tomatoes Unknown Non Drug Allergy Aug, Active shell fish Unknown Non Drug Allergy Aug, Active tape Unknown Non Drug Allergy Aug, Active IVP dye Unknown Non Drug Allergy Aug, Active SOCIAL HISTORY Never Assessed PLAN OF CARE Activity Details Follow Up 4 Weeks Reason:weight mgmt VITAL SIGNS Height 62 in 2016-08-30 Weight 247.0 lbs 2016-08-30 Temperature 98.7 degrees Fahrenheit 2016-08-30 Heart Rate 88 bpm 2016-08-30 Respiratory Rate 22 2016-08-30 BMI 45.17 kg/m2 2016-08-30 Blood pressure systolic 120 mmHg 2016-08-30 Blood pressure diastolic 78 mmHg 2016-08-30 MEDICATIONS Medication Instructions Dosage Frequency Start Date End Date Duration Status Atorvastatin Calcium 20 MG Orally Once a day 1 tablet 24h Active Tizanidine HCl 2 MG Orally Once a day 1 tablet as needed 24h Feb, Active Carafate 1 GM Orally 4 times a day 1 tablet on an empty stomach 6h 90 days Active Losartan Potassium-HCTZ 50-12.5 MG Orally Once a day 1 tablet 24h Active Contrave 8-90 MG Orally Twice a day 2 tablets 12h Jun, 30 days Active Cymbalta 60 mg Orally Once a day with Cymbalta 30mg. Total dose is 90mg 1 capsule Active Doxepin HCl 10 mg Orally Once at bedtime for sleep 1 capsule at bedtime September, Active Combivent Respimat 20-100 MCG/ACT Inhalation Four times a day 1 puff 6h 30 Active Oxygen 2 L/NC Active Dicyclomine HCl 20 mg 1 tablet Four times a day Orally 30 days 90 Active Levothyroxine Sodium 25 MCG 1 tablet on an empty stomach in the morning Once a day Orally 30 day(s) 30 90 Active Cymbalta 30 MG Orally Once a day with Cymbalta 60mg. Total dose 90mg 1 capsule along with 60mg Active Zithromax Z-Ethan 250 MG Orally Once a day 2 tablets on the first day, then 1 tablet daily for 4 days 24h Aug, Aug, 5 day(s) Active Loratadine 10 mg Orally 2 times a day 1 tablet 12h September, 90 days Active Creon 32162 UNIT Orally 3 times a day 1 capsule before meals 8h Nov, 90 days Active Lamotrigine 150 MG Orally Once a day 1 tablet 24h Active Gabapentin 300 MG Orally 3 times a day 1 tablet 8h Active Imitrex 50 mg Orally Once a day 1 tablet as needed at start of migraine 24h 30 Active RESULTS No Results PROCEDURES No Known [...] hernia Hospitalization History Went by ambulance to [place] as unresponsive 05/2015 Hospitalization History [place] sent her to [facility] for a psych hold 05/2015
--- OUTSIDE RECORDS SUMMARY | 2018-03-15 11:16 | XMS REPORT ---
Author Author HERBERT MCGOWAN [facility] Address [address] [place] [address] Care Team Providers Care Vehicle And Equipment Cleaner Name Role Phone HERBERT MCGOWAN Unavailable PROBLEMS Type Condition ICD9-CM Code [id number] Code Onset Dates Condition Status SNOMED Code Problem Chronic pain G89.29 Active 26811550 Problem Social anxiety disorder F40.10 Active 68914602 Problem Encounter for dental examination and cleaning without abnormal findings Z01.20 Active 700035563 Problem Essential hypertension I10 Active 93156165 Problem Psoriasis L40.9 Active 7948090 Problem Acquired hypothyroidism E03.9 Active 415136815 Problem Obstructive sleep apnea G47.33 Active 22497952 Problem Morbid obesity, unspecified obesity type E66.01 Active 184193764 Problem Gastro-esophageal reflux disease without esophagitis K21.9 Active 560839559 Problem Pelvic pain R10.2 Active 10727906 Problem Bilateral low back pain with sciatica, sciatica laterality unspecified M54.40 Active 297703069 Problem Borderline personality disorder F60.3 Active 77579964 Problem Bipolar disorder F31.9 Active 34726611 Problem Visual disturbance H53.9 Active 62844504 Problem Overdose T50.901A Active 61932133 Problem Posttraumatic stress disorder F43.10 Active 65829177 Problem Bipolar 1 disorder F31.9 Active 941516831 ALLERGIES No Information SOCIAL HISTORY Never Assessed [...] hernia Hospitalization History Went by ambulance to [place] as unresponsive 05/2015 Hospitalization History [place] sent her to [facility] for a psych hold 05/2015
--- OUTSIDE RECORDS SUMMARY | 2018-03-15 11:17 | XMS REPORT ---
Author Author HERBERT MCGOWAN [facility] Address [address] [place] [address] Care Team Providers Care Manager Water Wastewater Name Role Phone HERBERT MCGOWAN Unavailable PROBLEMS Type Condition ICD9-CM Code [id number] Code Onset Dates Condition Status SNOMED Code Problem Chronic pain G89.29 Active 62566132 Problem Social anxiety disorder F40.10 Active 49844202 Problem Encounter for dental examination and cleaning without abnormal findings Z01.20 Active 283436598 Problem Essential hypertension I10 Active 67387051 Problem Psoriasis L40.9 Active 5150092 Problem Acquired hypothyroidism E03.9 Active 207652737 Problem Obstructive sleep apnea G47.33 Active 92726957 Problem Morbid obesity, unspecified obesity type E66.01 Active 311573712 Problem Gastro-esophageal reflux disease without esophagitis K21.9 Active 191407665 Problem Pelvic pain R10.2 Active 89694158 Problem Bilateral low back pain with sciatica, sciatica laterality unspecified M54.40 Active 527373473 Problem Borderline personality disorder F60.3 Active 34571333 Problem Bipolar disorder F31.9 Active 56763820 Problem Visual disturbance H53.9 Active 20314191 Problem Overdose T50.901A Active 02096486 Problem Posttraumatic stress disorder F43.10 Active 42492605 Problem Bipolar 1 disorder F31.9 Active 489279626 ALLERGIES No Information SOCIAL HISTORY Never Assessed [...] hernia Hospitalization History Went by ambulance to [place] as unresponsive 05/2015 Hospitalization History [place] sent her to [facility] for a psych hold 05/2015
--- OUTSIDE RECORDS SUMMARY | 2018-03-15 11:17 | XMS REPORT ---
Author Author HERBERT MCGOWAN [facility] Address [address] [place] [address] Care Team Providers Care Sluice Tender Name Role Phone HERBERT MCGOWAN Unavailable PROBLEMS Type Condition ICD9-CM Code OEA43-WE Code Onset Dates Condition Status SNOMED Code Problem Chronic pain G89.29 Active 37554373 Problem Social anxiety disorder F40.10 Active 50487346 Problem Encounter for dental examination and cleaning without abnormal findings Z01.20 Active 880367855 Problem Essential hypertension I10 Active 17887555 Problem Psoriasis L40.9 Active 1517349 Problem Acquired hypothyroidism E03.9 Active 885574478 Problem Obstructive sleep apnea G47.33 Active 24652893 Problem Morbid obesity, unspecified obesity type E66.01 Active 821507246 Problem Gastro-esophageal reflux disease without esophagitis K21.9 Active 281766503 Problem Pelvic pain R10.2 Active 51753826 Problem Bilateral low back pain with sciatica, sciatica laterality unspecified M54.40 Active 559687710 Problem Borderline personality disorder F60.3 Active 01619264 Problem Bipolar disorder F31.9 Active 52878714 Problem Visual disturbance H53.9 Active 12462492 Problem Overdose T50.901A Active 40133830 Problem Posttraumatic stress disorder F43.10 Active 99092547 Problem Bipolar 1 disorder F31.9 Active 905420925 ALLERGIES No Information SOCIAL HISTORY Never Assessed PLAN OF CARE VITAL SIGNS MEDICATIONS Medication Instructions Dosage Frequency Start Date End Date Duration Status Tizanidine HCl 2 MG Orally Once a day 1 tablet as needed 24h Feb, 90 days Active RESULTS No Results PROCEDURES [...] hernia Hospitalization History Went by ambulance to [place] as unresponsive 05/2015 Hospitalization History [place] sent her to [facility] for a psych hold 05/2015
--- OUTSIDE RECORDS SUMMARY | 2018-03-15 11:17 | XMS REPORT ---
Author Author HERBERT MCGOWAN Organization [employer] Address Unknown Phone Unavailable Care Team Providers Care Sleeping Car Porter Name Role Phone HERBERT MCGOWAN CP Unavailable [...] Instructions Start Date End Date Status Dosage Latuda [facility] [address]-46 40 MG Orally Once in the evening with 350mg 1 tablet with food Results No Known Results Summary Purpose [employer] Submission
--- OUTSIDE RECORDS SUMMARY | 2018-03-15 11:17 | XMS REPORT ---
Author SAMI Marcum [facility] [employer] Address Unknown Phone Unavailable Care Team Providers Care Senior Database Engineer Name Role Phone SAMI SUAREZ Unavailable Allergies No Known Allergies Problems Problem Type Condition Code Onset Dates Condition Status Assessment Borderline personality disorder F60.3 Active Assessment Posttraumatic stress disorder F43.10 Active Assessment Bipolar disorder F31.9 Active Problem Dehydration 276.51 Active Problem Hypopotassemia [...] patient V76.11 Active Medications No Known Medications Procedures Procedure Coding System Code Date Psychotherapy, patient &/family, 45 minutes, established patient CPT-4 12775 Mar 23, 2016 Results No Known Results Summary Purpose [employer] Submission
--- OUTSIDE RECORDS SUMMARY | 2018-03-15 11:17 | XMS REPORT ---
Author Author HERBERT MCGOWAN [facility] Address [address] [place] [address] Care Team Providers Care Olericulture Professor Name Role Phone HERBERT MCGOWAN Unavailable PROBLEMS Type Condition ICD9-CM Code AUA10-VC Code Onset Dates Condition Status SNOMED Code Problem Dehydration 276.51 Active 76530776 Problem Hypopotassemia 276.8 Active 12630092 Problem Bilateral low back pain with sciatica, sciatica laterality unspecified M54.40 Active 025822805 Problem Urinary tract infection, site not specified 599.0 Active 47216687 Problem Visual disturbance H53.9 Active 89909129 Problem Blood in stool 578.1 Active 457486031 Problem Borderline personality disorder F60.3 Active 68518175 Problem Bipolar disorder F31.9 Active 68217782 Problem Posttraumatic stress disorder F43.10 Active 18112450 Problem Essential (primary) hypertension I10 Active 15813934 Problem Social anxiety disorder F40.10 Active 37648896 Problem Irritable bowel syndrome 564.1 Active 99412235 Problem 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 Active 12143979 Problem Abdominal pain, generalized 789.07 Active 761294298 Problem Overdose T50.901A Active 27034460 Problem Chronic pain G89.29 Active 04131222 Problem Encounter for dental examination and cleaning without abnormal findings Z01.20 Active 940216070 Problem Bipolar 1 disorder F31.9 Active 915375706 Problem Essential hypertension, benign 401.1 Active 4579108 Problem Cervicalgia 723.1 Active 19758920 Problem Nausea alone 787.02 Active 764769687 Problem Esophageal reflux 530.81 Active 997702586 Problem Other dyspnea and respiratory abnormalities 786.09 Active 547871378 Problem Pelvic pain R10.2 Active 19364508 Problem Hypertrophy of breast 611.1 Active 099854126 Problem Screening mammogram for high-risk patient V76.11 Active 40086637 ALLERGIES Unknown Allergies SOCIAL HISTORY No smoking Hx information available PLAN OF CARE VITAL SIGNS MEDICATIONS Unknown Medications RESULTS No Results PROCEDURES No Known procedures IMMUNIZATIONS No Known Immunizations
--- OUTSIDE RECORDS SUMMARY | 2018-03-15 11:18 | XMS REPORT ---
Author Author HERBERT MCGOWAN Organization [employer] Address Unknown Phone Unavailable Care Team Providers Care Captain Of Guards Name Role Phone HERBERT MCGOWAN CP Unavailable [...] Instructions Start Date End Date Status Dosage Imitrex [facility] [address]-37 50 mg Orally Once a day 1 tablet as needed at start of migraine Results No Known Results Summary Purpose [employer] Submission
--- OUTSIDE RECORDS SUMMARY | 2018-03-15 11:18 | XMS REPORT ---
Author Author CARYL FRANZ [facility] Address [address] [place] [address] Care Team Providers Care Drilling Engineer Name Role Phone OSEI CARYL Unavailable PROBLEMS Type Condition ICD9-CM Code [id number] Code Onset Dates Condition Status SNOMED Code Problem Psoriasis L40.9 Active 3187676 Problem Relationship problem with family member Z63.8 Active 048245134 Problem Essential hypertension I10 Active 01397807 Problem Anxiety F41.9 Active 38459358 Problem Visual disturbance H53.9 Active 87134280 Problem Rheumatoid arthritis involving multiple sites with positive rheumatoid factor M05.79 Active 259369120 Problem Bilateral low back pain with sciatica, sciatica laterality unspecified M54.40 Active 563485301 Problem Pelvic pain R10.2 Active 38046514 Problem Other chronic pain G89.29 Active 73971839 Problem Lumbago with sciatica, left side M54.42 Active 510569718 Problem 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 Active 857384421 Problem Blindness of right eye H54.40 Active 538002794 Problem Bipolar disorder F31.9 Active 30419042 Problem Overdose T50.901A Active 06059135 Problem Borderline personality disorder F60.3 Active 41504983 Problem Posttraumatic stress disorder F43.10 Active 89618094 Problem Obstructive sleep apnea G47.33 Active 40255858 Problem Acquired hypothyroidism E03.9 Active 062324179 Problem Chronic pain G89.29 Active 68895219 Problem Gastro-esophageal reflux disease without esophagitis K21.9 Active 205842806 Problem Social anxiety disorder F40.10 Active 02411980 Problem Morbid obesity, unspecified obesity type E66.01 Active 261518503 ALLERGIES No Information ENCOUNTERS Encounter Location Date Diagnosis [facility] [address] [facility] [id number] [address] [address] Nov, [facility] [id number] [place] [address] 65637- 4850 Nov, [facility] [address], [place] [address] 1268 Nov, [facility] [address] [place] [address] 13331- 8501 Nov, [facility] [address], [place] [address] 1681 Oct, Adverse effect of drug, initial encounter T50.905A and Acute anemia D64.9 [facility] [address] [place] [address] 57656- 0332 Oct, Anemia due to other cause, not classified D64.89 ; Dysuria R30.0 and Urinary tract infection without hematuria, site unspecified N39.0 [facility] [address], [place] [address] 8[address] Oct, [facility] [address] [place] [address] 83670- 0779 Oct, [facility] [address] [place] [address] 77827- 5788 Oct, 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 [address] [id number] Oct, [facility] [address] [place] [address] 79631- 8325 Oct, [facility] [address] [place] [address] 18364- 8801 Oct, [facility] [address] [place] [address] 99758- 4161 Oct, Bipolar disorder F31.9 ; Posttraumatic stress disorder F43.10 and Borderline personality disorder F60.3 [facility] [address], [place] [address] 9070 Oct, Rheumatoid arthritis involving multiple sites with positive rheumatoid factor M05.79 ; 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 and Anxiety F41.9 [place] [address] [place] [id number] [place] [address] 50182- 3118 Oct, [place] [id number] [place] [address] 50663- 5978 September, 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 [place] [id number] [place] [address] 77374- 1640 September, Bipolar disorder F31.9 ; Posttraumatic stress disorder F43.10 and Borderline personality disorder F60.3 [place] [id number] [place] [address] 46843- 2136 Aug, BMI 40.0-44.9, adult Z68.41 ; Bipolar disorder F31.9 ; Posttraumatic stress disorder F43.10 and Social anxiety disorder F40.10 [place] [id number] [place] [address] 03232- 3488 Aug, Bipolar disorder F31.9 ; Posttraumatic stress disorder F43.10 and Borderline personality disorder F60.3 [place] [id number] [place] [address] 80383- 1572 Aug, 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 [place] [id number] [place] [address] 87477- 6828 Jul, Bipolar disorder F31.9 ; Posttraumatic stress disorder F43.10 and Borderline personality disorder F60.3 [place] [id number] [place] [address] 44698- 1594 Jul, [place] [id number] [place] [address] 85982- 9456 Jun, Bipolar disorder F31.9 ; Posttraumatic stress disorder F43.10 and Borderline personality disorder F60.3 [place] [id number] [place] [address] 72976- 4344 Jun, Blindness of right eye H54.40 and Acquired hypothyroidism E03.9 [place] [address] [place] [address]- 0285 Jun, [facility] [id number] [place] [address] 03564- 3732 May, Posttraumatic stress disorder F43.10 ; Social anxiety disorder F40.10 and Bipolar disorder F31.9 [facility] [id number] [place] [address] 63719- 1244 May, Bipolar disorder F31.9 ; Posttraumatic stress disorder F43.10 and Borderline personality disorder F60.3 [facility] [id number] [place] [address] 54077- 6373 May, [facility] [id number] [place] [address] 29573- 1713 May, [facility] [id number] [place] [address] 77517- 9823 Apr, Bipolar disorder F31.9 ; Posttraumatic stress disorder F43.10 and Borderline personality disorder F60.3 [address] [id number] Apr, [place] [id number] [place] [address] 81152- 0628 Apr, [facility] [address] [place] [address] 58597- 5410 Mar, Hydradenitis L73.2 [place] [id number] [place] [address] 94256- 3556 15 Mar, 2017 Lumbago with sciatica, left side M54.42 ; Other chronic pain G89.29 ; Morbid obesity, unspecified obesity type E66.01 ; Hydradenitis L73.2 and BMI 40.0-44.9, adult Z68.41 [facility] [address] [place] [address] 45235- 0763 07 Mar, 2017 Bipolar disorder F31.9 ; Posttraumatic stress disorder F43.10 and Borderline personality disorder F60.3 [facility] [address] [address] 4679 07 Mar, 2017 Social anxiety disorder F40.10 ; Bipolar disorder F31.9 and Relationship problem with family member Z63.8 [facility] [id number] [place] [address] 81688- 5577 Mar, [facility] [address] [place] [address] AVE [id number] [id number] Mar, Dental examination Z01.20 [facility] [id number] [place] [address] 80729- 1945 Mar, [facility] [id number] [place] [address] 83872- 8465 Feb, Bipolar disorder F31.9 ; Posttraumatic stress disorder F43.10 and Borderline personality disorder F60.3 [address] [place] [id number] Feb, [facility] [id number] [place] [address] 27963- 5746 14 Jan, 2017 Bipolar disorder F31.9 ; Posttraumatic stress disorder F43.10 and Borderline personality disorder F60.3 [facility] [address] [place] [id number] [place] [id number] Jan, [facility] [address] [place] [address] 29015- 6362 Jan, [facility] [address] [place] [address] [id number] Jan, [facility] [address] [place] [address] 99342- 5505 Dec, Bipolar disorder F31.9 ; Posttraumatic stress disorder F43.10 and Borderline personality disorder F60.3 [facility] [id number] [place] [address] 47238- 8854 Dec, [facility] [address] [place] [address] 28200- 7565 Dec, [facility] [id number] [place] [address] [id number] Dec, [place] [address], [place] [address]- 9683 Nov, Bipolar 1 disorder F31.9 ; Posttraumatic stress disorder F43.10 and Social anxiety disorder F40.10 [place] [address], [place] [address]- 6454 Nov, Bipolar disorder F31.9 ; Posttraumatic stress disorder F43.10 and Borderline personality disorder F60.3 [place] [address] [place] [address] 02815- 9720 Nov, Morbid obesity, unspecified obesity type E66.01 [place] [address] [place] [address] 49895- 8776 Nov, [place] [id number] [id number] Oct, Encounter for dental examination and cleaning without abnormal findings Z01.20 [place] [address] [place] [address] 44580- 4122 Oct, Morbid obesity, unspecified obesity type E66.01 and Acute seasonal allergic rhinitis due to pollen J30.1 [place] [address] [place] [address] 48649- 2304 Oct, Bipolar disorder F31.9 ; Posttraumatic stress disorder F43.10 and Borderline personality disorder F60.3 [place] [address] [place] [address] 82124- 9051 September, Morbid obesity, unspecified obesity type E66.01 and Psoriasis L40.9 [place] [address] [place] [address] 11710- 5441 September, Bipolar disorder F31.9 ; Posttraumatic stress disorder F43.10 and Borderline personality disorder F60.3 [place] [address] [place] [address] 58117- 5977 September, Chronic pain G89.29 [place] [id number] [place] [address] 17246- 1240 17 Aug, 2016 Other acute nonsuppurative otitis media of right ear H65.191 and Morbid obesity, unspecified obesity type E66.01 [place] [id number] [place] [address] 58620- 5737 Aug, Bipolar 1 disorder F31.9 ; Posttraumatic stress disorder F43.10 and Social anxiety disorder F40.10 [place] [address] 44097- 5511 Aug, Bipolar disorder F31.9 ; Posttraumatic stress disorder F43.10 and Borderline personality disorder F60.[address] 35889- 5286 Jul, Morbid obesity due to excess calories E66.01 ; Gastro- esophageal reflux disease without esophagitis K21.9 and Chronic pain G89.29 [place] [address] 83231- 4986 Jul, Morbid obesity due to excess calories E66.01 [place] [id number] [place] [address] 23126- 7118 Jul, [place] [id number] [place] [address] 50719- 2206 Jul, [place] [id number] [place] [address] 89372- 5075 Jul, Morbid obesity due to excess calories E66.01 [place] [id number] [place] [address] 35669- 6239 Jul, Bipolar disorder F31.9 ; Posttraumatic stress disorder F43.10 and Borderline personality disorder F60.3 [place] [address] [id number] [place] [address] 04092- 1277 16 Jun, 2016 [place] [id number] [place] [address] 53746- 2901 Jun, Morbid obesity due to excess calories E66.01 [facility] [address], [place] [address]- 7460 10 Jun, 2016 [facility] [id number] [place] [address] 26802- 4974 09 Jun, 2016 Morbid obesity, unspecified obesity type E66.01 [facility] [address] [place] [address] 96628- 0755 03 Jun, 2016 Bipolar disorder F31.9 ; Posttraumatic stress disorder F43.10 and Borderline personality disorder F60.3 [facility] [address], [place] [address]- 6242 03 Jun, 2016 [facility] [id number] [place] [address] 29979- 0308 03 Jun, 2016 [facility] [address] [place] [address] 93412- 1730 02 Jun, 2016 Acquired hypothyroidism E03.9 and Morbid obesity due to excess calories E66.01 [facility] [address], [place] [address]- 1745 May, Bipolar disorder F31.9 ; Posttraumatic stress disorder F43.10 and Borderline personality disorder F60.3 [facility] [address], [place] [address]- 0674 Apr, Bipolar 1 disorder F31.9 ; Posttraumatic stress disorder F43.10 and Social anxiety disorder F40.[address] [id number] [id number] Apr, Encounter for dental examination Z01.20 [facility] [address], [place] [address]- 3988 Apr, [facility] [address] [place] [address] 92418- 8832 Apr, Acquired hypothyroidism E03.9 [facility] [address], [place] [address]- 1119 Apr, Acquired hypothyroidism E03.9 [facility] [address], [place] [address]- 7454 07 Apr, 2016 Bipolar disorder F31.9 ; Posttraumatic stress disorder F43.10 and Borderline personality disorder F60.3 [facility] [address] [place] [address] 35800- 2013 Apr, Acquired hypothyroidism E03.[address] [id number] [id number] Mar, Encounter for dental examination and cleaning without abnormal findings Z01.20 [facility] [id number] [place] [address] 99353- 2454 Mar, [facility] [id number] [place] [address] 94241- 1522 08 Mar, 2016 Bipolar disorder F31.9 ; Posttraumatic stress disorder F43.10 and Borderline personality disorder F60.3 [facility] [id number] [place] [address] 29550- 7790 Mar, Essential (primary) hypertension I10 [facility] [id number] [place] [address] 64749- 2558 Feb, [facility] [id number] [place] [address] 99079- 2289 14 Feb, 2016 [facility] [id number] [place] [address] 40370- 3802 11 Feb, 2016 Pelvic pain R10.2 ; Lipid screening Z13.220 ; Fatigue, unspecified type R53.83 and Weight gain R63.5 [facility] [address] [place] [address] 03471- 9376 11 Feb, 2016 Bipolar disorder F31.9 ; Posttraumatic stress disorder F43.10 and Borderline personality disorder F60.3 [facility] [address] [place] [address] 69999- 6696 07 Feb, 2016 [facility] [id number] [place] [address] 03060- 0520 Feb, [facility] [address], [place] [address]- 1960 30 Jan, 2016 Obstructive sleep apnea syndrome G47.33 [facility] [address], [place] [address]- 6126 26 Jan, [address] [id number] [id number] 19 Jan, 2016 Dental examination Z01.20 [facility] [id number] [place] [address] 02879- 7576 13 Jan, 2016 Bipolar 1 disorder F31.9 ; Posttraumatic stress disorder F43.10 and Social anxiety disorder F40.10 [facility] [address] [place] [address] 18319- 8939 Jan, Bipolar disorder F31.9 ; Posttraumatic stress disorder F43.10 and Borderline personality disorder F60.3 [facility] [address] [place] [address] 85203- 9298 Jan, Sciatica of left side M54.32 [facility] [id number] [place] [address] 41646- 9047 Jan, [facility] [address] [place] [address] 43843- 8443 Dec, [facility] [address] [place] [address] 60513- 8094 Dec, [facility] [id number] [place] [address] 78629- 0246 Dec, Bipolar disorder F31.9 ; Posttraumatic stress disorder F43.10 and Borderline personality disorder F60.3 [facility] [address] [place] [address] 15746- 1134 Nov, [facility] [address] [place] [address] 86165- 2634 Nov, Insomnia, unspecified type G47.00 [facility] [address], [place] [address]- 9510 Nov, Bipolar disorder F31.9 ; Posttraumatic stress disorder F43.10 and Borderline personality disorder F60.3 [facility] [address] [place] [address] 87405- 0280 Nov, [facility] [address] [place] [address] 37605- 9239 Nov, [facility] [id number] [place] [address] 49213- 2042 Oct, Bipolar disorder F31.9 ; Posttraumatic stress disorder F43.10 and Borderline personality disorder F60.3 [facility] [id number] [place] [address] 61506- 6161 Oct, [facility] [id number] [place] [address] 40718- 6265 Oct, Essential (primary) hypertension I10 [facility] [address] [place] [address] 21683- 6827 September, Bipolar 1 disorder F31.9 ; Posttraumatic stress disorder F43.10 and Social anxiety disorder F40.10 [place] [address] [place] [address] 69212- 0518 September, Bipolar disorder F31.9 ; Posttraumatic stress disorder F43.10 and Borderline personality disorder F60.[address] [place] [id number] [id number] September, Encounter for dental examination and cleaning without abnormal findings Z01.20 [facility] [address] [place] [address] 94052- 9422 September, [facility] [id number] [place] [address] 70028- 7075 September, [facility] [address] [place] [address] 74954- 3704 Aug, [facility] [id number] [place] [address] 15274- 4679 Aug, Bipolar disorder F31.9 ; Posttraumatic stress disorder F43.10 and Borderline personality disorder F60.3 [facility] [address], [place] [address]- 0031 Aug, [facility] [address], [place] [address]- 8949 08 Aug, 2015 [facility] [address] [place] [address] 84811- 7273 05 Aug, 2015 [facility] [id number] [address] 28 Jul, 2015 Acute nasopharyngitis [common cold] J00 and Other viral agents as the cause of diseases classified elsewhere B97.89 [facility] [address] [place] [address] 82344- 7103 24 Jul, 2015 Chronic pain G89.29 and Allergic rhinitis J30.9 [facility] [address] [place] [address] 96510- 5255 24 Jul, 2015 Bipolar 1 disorder F31.9 ; Posttraumatic stress disorder F43.10 and Social anxiety disorder F40.10 [facility] [address] [place] [address] 61952- 7180 16 Jul, 2015 Bipolar 1 disorder F31.9 [facility] [address], [place] [address]- 0355 16 Jul, 2015 Bipolar disorder F31.9 ; Posttraumatic stress disorder F43.10 and Borderline personality disorder F60.3 [facility] [address], [place] [address]- 5495 14 Jul, 2015 [facility] [address] [place] [address] 42606- 7748 14 Jul, 2015 [facility] [address], [place] [address]- 1016 11 Jul, 2015 [facility] [address] [place] [address] 02890- 2274 10 Jul, 2015 Anxiety F41.9 [facility] [address], [place] [address] 2546 10 Jul, 2015 Chronic pain G89.29 and Encounter for therapeutic drug level monitoring Z51.81 [facility] [address] [place] [address] 50335 2546 09 Jul, 2015 Chronic pain G89.29 and Encounter for therapeutic drug level monitoring Z51.81 [facility] [id number] [place] [address] 56861- 9615 08 Jul, 2015 [facility] [id number] [place] [address] 89462- 0676 Jun, [facility] [id number] [place] [address] 19763- 3838 Jun, [facility] [id number] [place] [address] 36660- 3450 Jun, [facility] [id number] [place] [address] 48158- 0796 Jun, [facility] [id number] [place] [address] 41206- 2693 Jun, High risk medication use V58.69 [facility] [address], [place] [address]- 7634 Jun, [facility] [address] [place] [address] 30271- 2347 Jun, Bipolar 1 disorder F31.9 ; Overdose T50.901A and Chronic pain G89.29 [facility] [id number] [place] [address] 72189- 6233 Jun, Bipolar disorder F31.9 ; Posttraumatic stress disorder F43.10 and Borderline personality disorder F60.3 [facility] [address] [place] [address] 05631- 9888 Jun, [facility] [id number] [place] [address] 84296- 8550 Jun, [facility] [id number] [place] [address] 04124- 6834 Jun, Keloid L91.0 [facility] [id number] [place] [address] 10678- 0786 Jun, [facility] [address] 63250- 6891 May, [facility] [id number] [place] [address] 13874- 8809 May, [facility] [id number] [place] [address] 41760- 9707 May, Pelvic pain R10.2 [facility] [id number] [place] [address] 52346- 1533 May, [facility] [id number] [place] [address] [phone] May, Pain of left thumb M79.645 ; Incisional pain R20.8 ; Pelvic pain R10.2 and Essential hypertension I10 [facility] [id number] [place] [address] [phone] May, [facility] [id number] [place] [address] [phone] May, [address] [id number] [id number] May, Dental examination Z01.20 and Necrosis of pulp K04.1 [facility] [id number] [place] [address] [phone] Apr, [facility] [id number] [place] [address] [phone] Apr, [facility] [id number] [place] [address] [phone] Apr, [facility] [place] [facility] [address] [id number] [place] [phone] 08 Apr, 2014 [facility] [place] [facility] [address] [id number] [place] [address] 08 Apr, 2014 [facility] [place] [facility] [address] [id number] [place] [address] 0048 Apr, 2014 [facility] [place] [facility] [address] [id number] [place] [address] 3517 07 Apr, 2014 [facility] [place] [facility] [address] [id number] [place] [address]- 3287 Apr, 2014 [facility] [place] [facility] [address] [id number] [place] [address] 1437 Mar, 2014 [facility] [place] [facility] [address] [id number] [place] [address] 0526 Mar, [facility] [place] [facility] [address] [id number] [place] [address] 0306 Mar, 2014 [facility] [place] [facility] [address] [id number] [place] [address] 6004 Mar, [facility] [place] [facility] [address] [id number] [place] [address]- 8729 Feb, [facility] [place] [facility] [address] [facility] [id number] [place] [address] 4264 Feb, [facility] [place] [facility] [address] [id number] [place] [address]- 8561 Feb, 2014 [facility] [place] [facility] [address] [id number] [place] [address]- 9838 Feb, 2014 [facility] [place] [facility] [address] [id number] [place] [address]- 3474 Feb, 2014 [facility] [place] [facility] [address] [id number] [place] [address]- 2091 19 Feb, 2014 [facility] [place] [facility] [address] [id number] [place] [address]- 4973 Feb, [facility] [id number], [place] [address] Feb, Dermatofibroma of left lower leg D23.72 [facility] [address], [place] [address] 1325 Feb, Hematochezia 578.1 ; Low back pain M54.5 ; High risk medication use V58.69 ; Cervicalgia M54.2 and Anxiety F41.[address] [id number] [id number] Feb, Dental examination Z01.20 ; Pulpitis K04.0 and Dental caries, unspecified K02.[address] [id number] [id number] Feb, Dental examination Z01.20 [facility] [id number] [place] [address]- 5306 Jan, [facility] [id number] [place] [address] 14823- 5698 Jan, [facility] [id number] [place] [address] 827[address]- 2176 Jan, [facility] [id number], [place] [address] 1897 Jan, [facility] [id number] [place] [address] 10912- 2112 Dec, [facility] [id number] [place] [address]39- 8150 Dec, [facility] [id number] [place] [address] 92462- 5940 Dec, [facility] [id number], [place] [address] 0543 Dec, [facility] [id number] [place] [address]- 9908 Dec, [facility] [address] [id number], [place] [address] 2718 Dec, [facility] [address] [id number] [place] [address]- 8193 Dec, [facility] [address] [id number], [place] [address] 5656 Dec, [facility] [address] [id number] [id number] Nov, Encounter for removal of sutures V58.32 [facility] [address] [id number] [place] [address]- 0377 Nov, [facility] [address] [id number], [place] [address] 8193 Nov, [facility] [address] [id number] [place] [address]- 5804 Nov, [facility] [address] [id number], [place] [address]- 8047 Nov, [facility] [address] [id number] [place] [address]- 9674 Nov, [facility] [address] [id number], [place] [address] 8861 Nov, [facility] [address] [id number], [place] [address]- 5934 Nov, [facility] [address] [id number], [place] [address]- 2583 Nov, Dermatofibroma 216.9 [facility] [address] [id number] [place] [address]- 3566 Nov, [facility] [address] [facility] [id number], [place] [address]- 3989 Nov, [facility] [place] [facility] [address] [id number] [place] [address]- 4787 Oct, [facility] [address], [place] [address]- 6781 Oct, Hematochezia 578.1 ; Abscess 682.9 ; GERD (gastroesophageal reflux disease) 530.81 ; Visual disturbance of one eye 368.9 and High risk medication use V58.69 [facility] [address] [id number], [place] [address]- 0722 Oct, [facility] [id number] [place] [address] 88271- 8164 Oct, [facility] [id number] [place] [address] 07435- 9702 Oct, [facility] [id number] [place] [address] 10941- 5422 September, [facility] [id number] [place] [address] 820056- 7951 September, [facility] [id number] [place] [address] 82723- 1432 September, [facility] [id number] [place] [address] 78398- 8318 September, [facility] [id number] [place] [address] 50359- 5499 September, [facility] [address] [id number], [place] [address] 9102 September, Colon cancer screening V76.51 [facility] [address], [place] [address]- 2543 September, [facility] [address] [id number], [place] [address]- 1148 Aug, [facility] [id number] [place] [id number]- 1329 Aug, [facility] [address] 4855 Jul, [facility] [id number] [place] [address], [place] [address]- 8978 Jul, [facility] [place] [facility] [address] [id number] [place] [address]- 5399 Jul, [facility] [place] [facility] [address] [id number] [place] [address]- 6579 Jul, [facility] [place] [facility] [address] [id number] [place] [address]- 1477 Jun, [facility] [place] [facility] [address] [id number] [place] [address]- 9352 Jun, [facility] [place] [facility] [address] [id number] [place] [address]- 8679 Jun, [facility] [place] [facility] [address] [id number] [place] [address]- 5508 Jun, [facility] [place] [facility] [address] [id number] [place] [address]- 2356 Jun, [facility] [place] [facility] [address] [id number] [place] [address]- 6522 Jun, [facility] [place] [facility] [address] [id number] [place] [address]- 2632 May, [facility] [place] [facility] [address] [id number] [place] [address]- 5287 May, [facility] [place] [facility] [address] [id number] [place] [address]- 7728 May, [facility] [place] [facility] [address] [id number] [place] [address]- 1504 May, [facility] [place] [facility] [address] [id number] [place] [address]- 3274 May, [facility] [place] [facility] [address] [id number] [place] [address]- 8727 May, [facility] [place] [facility] [address] [id number] [place] [address]- 0071 May, [facility] [place] [facility] [address] [id number] [place] [address]- 5777 May, [facility] [place] [facility] [address] [id number] [place] [address]- 7759 Apr, [facility] [place] [facility] [address] [id number] [place] [address]- 8280 Apr, [facility] [place] [facility] [address] [id number] [place] [address]- 7783 Apr, [facility] [place] [facility] [address] [id number] [place] [address]- 5308 Apr, [facility] [place] [facility] [address] [id number] [place] [address]- 0213 Apr, [facility] [place] [facility] [address] [id number] [place] [address]- 3366 Apr, [facility] [place] [facility] [address] [id number] [place] [address]- 5015 Apr, [facility] [place] [facility] [address] [id number] [place] [address]- 8605 Apr, [facility] [place] [facility] [address] [id number] [place] [address]- 9477 Mar, [facility] [place] [facility] [address] [id number] [place] [address]- 8102 Mar, [facility] [place] [facility] [address] [id number], [place] [address]- 6929 Mar, [facility] [place] [facility] [address] [id number] [place] [address]- 6764 Mar, [facility] [place] [facility] [address] [id number] [place] [address]- 0928 Mar, [facility] [place] [facility] [address] [id number] [place] [address]- 0027 Mar, [facility] [place] [facility] [address] [id number], [place] [address]- 2295 Mar, [facility] [place] [facility] [address] [id number] [place] [address]- 2921 Mar, [facility] [place] [facility] [address] [id number] [place] [address]- 1557 Mar, [facility] [place] [facility] [address] [id number] [place] [address]- 9419 Mar, [facility] [place] [facility] [address] [id number] [place] [address]- 9745 Feb, [facility] [place] [facility] [address] [id number] [place] [address]- 0156 Feb, [facility] [place] [facility] [address] [id number] [place] [address]- 2990 Jan, [facility] [place] [facility] [address] [id number] [place] [address]- 9585 Jan, [facility] [place] [facility] [address] [id number] [place] [address]- 3556 Jan, [facility] [place] [facility] [address] [id number] [place] [address]- 0388 Jan, [facility] [place] [facility] [address] [id number] [place] [address]- 4120 Dec, [facility] [place] [facility] [address] [id number] [place] [address]- 6002 Dec, [facility] [place] [facility] [address] [id number], [place] [address]- 1221 Dec, [facility] [place] [facility] [address] [id number] [place] [address]- 2098 Dec, [facility] [place] [facility] [address] [id number] [place] [address]- 8594 Dec, [facility] [place] [facility] [address] [id number] [place] [address]- 6849 Dec, [facility] [place] [facility] [address] [id number] [place] [address]- 5671 Nov, [facility] [place] [facility] [address] [id number] [place] [address]- 2457 Nov, [facility] [place] [facility] [address] [id number] [place] [address]- 2211 Oct, [facility] [place] [facility] [address] [id number] [place] [address]- 8264 Oct, [facility] [place] [facility] [address] [id number] [place] [address]- 9773 Oct, [facility] [place] [facility] [address] [id number] [place] [address]- 0074 Oct, [facility] [place] [facility] [address] [id number] [place] [address]- 8814 September, [facility] [place] [facility] [address] [id number] [place] [address]- 6562 September, [facility] [place] [facility] [address] [id number] [place] [address]- 6461 September, [facility] [place] [facility] [address] [id number] [place] [address]- 5435 September, [facility] [place] [facility] [address] [id number] [place] [address]- 5443 September, [facility] [place] [facility] [address] [id number] [place] [address]- 1621 September, [facility] [place] [facility] [address] [id number] [place] [address]- 0864 September, [facility] [place] [facility] [address] [id number] [place] 4106 September, [facility] [place] [facility] [address] [id number] [place] [address]- 6889 Aug, [facility] [place] [facility] [address] [id number] [place] [address]- 2564 Aug, [facility] [place] [facility] [address] [id number] [place] [address]- 1048 Aug, [facility] [place] [facility] [address] [id number] [place] [address]- 7620 Aug, [facility] [place] [facility] [address] [facility] [id number] [place] 9170 Aug, [facility] [place] [facility] [address] [id number] [place] [address]- 3935 Aug, [facility] [place] [facility] [address] [id number] [place] [address]- 4618 Jul, [facility] [place] [facility] [address] [id number] [place] [address]- 9326 Jul, [facility] [place] [facility] [address] [facility] [id number] [place] [address]- 5780 Jul, [facility] [place] [facility] [address] [id number] [place] [address]- 2142 Jul, [facility] [place] [facility] [address] [id number] [place] [address]- 8603 Jun, [facility] [place] [facility] [address] [id number] [place] [address]- 4837 Jun, [facility] [place] [facility] [address] [facility] [id number] [place] [address]- 8151 Jun, [facility] [place] [facility] [address] [id number] [place] [address]- 9469 Jun, [facility] [place] [facility] [address] [id number] [place] [address]- 1601 Jun, [facility] [place] [facility] [address] [id number] [place] 3234 Jun, [facility] [place] [facility] [address] [id number] [place] [address]- 0008 May, [facility] [place] [facility] [address] [id number] [place] [address]- 3302 May, [facility] [address] [id number] [place] [address]- 1333 May, [facility] [address] [id number] [place] [address]- 6847 May, [facility] [address] [id number] [place] [address]- 8391 May, [facility] [address] [id number] [place] [address]- 8286 May, [facility] [address] [id number] [place] [address]- 6824 May, [facility] [address] [id number] [place] [address]- 8866 May, [facility] [address] [id number] [place] [address]- 5398 Apr, [facility] [address] [place] [id number] 16 Apr, 2013 [facility] [address] [id number] [place] [address]- 1321 Apr, [facility] [address] [id number] [place] [address]- 6929 Apr, [facility] [address] [id number] [place] [address]- 0209 Apr, [facility] [address] [id number] [place] [address]- 0329 Apr, [facility] [address] [id number] [place] [address]- 5686 05 Apr, 2013 [facility] [address] [id number] [place] [address]- 5236 05 Apr, 2013 [facility] [address] [id number] [place] [address]- 9566 04 Apr, 2013 [facility] [address] [id number] [place] [address]- 8782 Mar, [facility] [address] [id number] [place] [address]- 7221 Mar, [facility] [address] [id number] [place] [address]- 9826 Mar, [facility] [place] [facility] [address] [id number] [place] [address]- 3719 Mar, [facility] [address] [id number] [place] [address]- 1546 Mar, [facility] [place] [facility] [address] [id number] [place] [address]- 2082 Feb, [facility] [address] [id number] [place] [address]- 0368 Feb, [facility] [address] [id number] [place] [address]- 3002 Feb, [facility] [address] [id number] [place] [address]- 8866 Feb, [facility] [address] [id number] [place] [address]- 4445 Jan, [facility] [address] [id number] [place] [address]- 0374 24 Jan, 2013 [facility] [address] [id number] [place] [address]- 5544 Jan, [facility] [address] [id number] [place] [address]- 3348 Dec, [facility] [place] [facility] [address] [id number] [place] [address]- 6912 Dec, [facility] [address] [id number], [place] [address]- 1904 Dec, [facility] [place] [address] [facility] [id number] [id number] Nov, [facility] [address] [id number] [place] [id number] Oct, [facility] [address] [id number] [place] [address]- 9956 Oct, [facility] [address] [id number] [place] [address]- 7646 September, [facility] [address] [id number] [place] [address]- 3816 September, [facility] [address] [id number] [place] [address]- 4922 September, [facility] [address] [id number] [place] [address]- 1986 September, [facility] [address] [id number] [place] [address]- 1476 September, [facility] [address] [id number] [place] [address]- 7505 Jul, [facility] [address] [id number] [place] [address]- 1102 Jul, [facility] [address] [id number] [place] [address]- 4186 Jul, [facility] [address] [id number] [place] [address]- 2546 Jul, [facility] [address] [id number], [place] [address]- 0446 Jun, [facility] [place] [facility] [address] [id number] [place] [address]- 6486 Jun, [facility] [place] [facility] [address] [id number] [place] [address]- 2546 Jun, [facility] [place] [facility] [address] [id number], [place] [address]- 2546 Jun, [facility] [place] [facility] [address] [id number] [place] [address]- 5000 May, [facility] [place] [facility] [address] [id number] [place] [address]- 5208 Mar, [facility] [place] [facility] [address] [id number] [place] [address]- 4003 Mar, [facility] [place] [facility] [address] [id number] [place] [address]- 6876 Mar, [facility] [place] [facility] [address] [id number] [place] [address]- 1779 Mar, [facility] [place] [facility] [address] [id number] [place] [address]- 9965 Mar, [facility] [place] [facility] [address] [id number] [place] [address]- 6858 Mar, [facility] [address] [id number] [place] [address]- 6232 Mar, [facility] [place] [facility] [address] [id number] [place] [address]- 4304 Mar, [facility] [place] [facility] [address] [id number] [place] [address]- 6441 Feb, [facility] [place] [facility] [address] [id number] [place] [address]- 4642 Feb, [facility] [place] [facility] [address] [id number] [place] [address]- 9744 Feb, [facility] [place] [facility] [address] [id number], [place] [address]- 0216 Feb, [facility] [place] [facility] [address] [id number] [place] [address] Feb, [facility] [place] [facility] [address] [facility] [id number] [place] [address] Feb, [facility] [place] [facility] [address] [facility] [id number] [place] [address] Feb, [facility] [address] [id number] [place] [id number] Jan, [facility] [address] [id number] [place] [id number] Dec, [facility] [address] [id number] [place] [id number] Dec, [facility] [address] [facility] [id number] [place] [address] Nov, [facility] [place] [facility] [address] [id number], [place] [address] Nov, [facility] [place] [facility] [address] [id number] [place] [address] Oct, [facility] [place] [facility] [address] [facility] [id number], [place] [address] Jul, [facility] [place] [facility] [id number], [place] [address] Jul, [facility] [place] [facility] [address] [id number], [place] [address] May, [facility] [place] [facility] [address] [id number], [place] [address] May, [facility] [place] [facility] [address] [id number], [place] [address] Nov, [facility] [place] [facility] [address] [id number], [place] [address] Mar, [facility] [place] [facility] [address] [id number], [place] [address] Dec, [facility] [place] [facility] [address] [id number], [place] [address] Nov, [facility] [place] [facility] [address] [facility] [id number], [place] [address] Aug, [facility] [place] [facility] [address] [facility] [id number] [place] [address] Apr, [facility] [place] [facility] [address] [facility] [id number], [place] [address] Apr, [facility] [address] [id number], [place] [address] Mar, [facility] [address] [id number], [place] [address] Feb, [facility] [address] [id number], [place] [address] September, [facility] [address] [id number], [place] [address] Jun, [facility] [id number] [id number] Mar, IMMUNIZATIONS No Known Immunizations SOCIAL HISTORY [...] hernia Hospitalization History Went by ambulance to [facility] as unresponsive 05/2015 Hospitalization History [facility] sent her to [facility] for a psych hold 05/2015
--- OUTSIDE RECORDS SUMMARY | 2018-03-15 11:18 | XMS REPORT ---
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 Active Problem Nausea alone 787.02 Active Problem Irritable bowel syndrome 564.1 Active Problem Other dyspnea and respiratory abnormalities 786.09 Active Problem Screening mammogram for high-risk patient V76.11 Active Problem Visual disturbance H53.9 Active Problem Essential hypertension, benign 401.1 Active Problem Esophageal reflux 530.81 Active Problem Hypertrophy of breast 611.1 Active Problem Cervicalgia 723.1 Active Assessment Incisional pain R20.8 Active Assessment Pain of left thumb M79.645 Active Assessment Essential hypertension I10 Active Assessment Pelvic pain R10.2 Active Problem Urinary tract infection, site not specified 599.0 Active Problem Blood in stool 578.1 Active Problem Dehydration 276.51 Active Problem Abdominal pain, generalized 789.07 Active Problem Hypopotassemia 276.8 Active Problem Unspecified backache 724.5 Active Medications Medication Code System Code Instructions Start Date End Date Status Dosage Loratadine [facility] [address]-87 10 MG October 09, 2013 1 tablet by Oral route 2 times per day Albuterol Sulfate [facility] [address]-54 (2.5 MG/3ML) 0.083% Inhalation every 4 hrs 3 ml Carafate [facility] [address]-45 1 GM Orally 4 times a day 1 tablet on an empty stomach Tizanidine HCl [facility] [address]-78 2 MG Orally 2 times a day Feb 18, 2015 1 tablet as needed TENS Unit [facility] 0 device Use as directed Cymbalta [facility] [address]-60 30 MG Orally Once a day 1 capsule with the 60mg tab she has at home Lipitor [facility] [address]-26 20 MG Orally Once a day 1 tablet Imitrex [facility] [address]-25 50 MG Orally Once a day 1 tablet as needed Depo-Estradiol [facility] [address]-64 5 MG/ML Intramuscular 1 ml Dicyclomine HCl [facility] [address]-69 20 MG Orally Four times a day 1 tablet Vagifem [facility] [address]-00 10 MCG Vaginal 1 tablet Zolpidem Tartrate [facility] [address]-76 10 MG Orally Once a day 1 tablet at bedtime as needed Combivent Respimat [facility] [address]-13 20-100 MCG/ACT Inhalation Four times a day 1 puff Protonix [facility] [address]-82 20 MG Orally Once a day November 05, 2014 1 tablet Hydrocodone-Acetaminophen [facility] [address]-15 7.5-325 MG 2 times a day July 29, 2014 1 tablet by Oral route PRN Creon [facility] [address]-96 83109 UNIT Orally 3 times a day before meals December 10, 2014 as directed Hyzaar [facility] [address]-36 50-12.5 MG Orally Once a day October 04, 2014 1 tablet Fish Oil [facility] [address]-45 1000 MG Orally Once a day 1 capsule Procedures Procedure Coding System Code Date Office Visit, Est Pt., Level 3 CPT-4 47283 May 22, 2015 Vital Signs Date/Time: May 22, 2015 Temperature 98.4 F Weight 219.0 lbs Height 62 in BMI 40.05 Index Blood Pressure Diastolic 100 mmHg Blood Pressure Systolic 140 mmHg Cardiac Monitoring Heart Rate 92 bpm Results No Known Results Summary Purpose eClinicalWorks Submission
--- OUTSIDE RECORDS SUMMARY | 2018-03-15 11:19 | XMS REPORT ---
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 Active 198544268 Problem Pelvic pain R10.2 Active 59324783 Problem Blindness of right eye H54.40 Active 541718815 Problem Relationship problem with family member Z63.8 Active 506504001 Problem Essential hypertension I10 Active 08639557 Problem Other chronic pain G89.29 Active 71567703 Problem Lumbago with sciatica, left side M54.42 Active 490982810 Problem Bipolar disorder F31.9 Active 66315067 Problem Posttraumatic stress disorder F43.10 Active 79312407 Problem Bilateral low back pain with sciatica, sciatica laterality unspecified M54.40 Active 909766942 Problem Visual disturbance H53.9 Active 65251489 Problem Overdose T50.901A Active 84521390 Problem Social anxiety disorder F40.10 Active 03262873 Problem Borderline personality disorder F60.3 Active 38453358 Problem Obstructive sleep apnea G47.33 Active 22255158 Problem Chronic pain G89.29 Active 12745774 Problem Acquired hypothyroidism E03.9 Active 779704083 ALLERGIES Substance Reaction Event Type Date Status Sulfamethoxazole-Trimethoprim Unknown Drug Allergy Mar, Active Iodine Unknown Drug Allergy Mar, Active Codeine Sulfate Unknown Drug Allergy Mar, Active Aspirin Unknown Drug Allergy Mar, Active tomatoes Unknown Non Drug Allergy Mar, Active shell fish Unknown Non Drug Allergy Mar, Active IVP dye Unknown Non Drug Allergy Mar, Active tape Unknown Non Drug Allergy Mar, Active strawberries Unknown Non Drug Allergy Mar, Active ENCOUNTERS Encounter Location Date Diagnosis [place] [address] [place] [address] 09505- 0586 Nov, [facility] [address] [id number] [place] [address] 35981- 5523 Oct, [place] [id number] [place] [address] 57398- 4459 Oct, [place] [address] [id number] [place] [address] 53339- 1116 September, 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 [place] [id number] [place] [address] 22665- 6506 September, Bipolar disorder F31.9 ; Posttraumatic stress disorder F43.10 and Borderline personality disorder F60.3 [place] [address] [place] [address] [id number] [place] [address] 52858- 5260 Aug, BMI 40.0-44.9, adult Z68.41 ; Bipolar disorder F31.9 ; Posttraumatic stress disorder F43.10 and Social anxiety disorder F40.10 [place] [address] [place] [id number] [place] [address] 53168- 4448 Aug, Bipolar disorder F31.9 ; Posttraumatic stress disorder F43.10 and Borderline personality disorder F60.3 [place] [address] [address] [id number] [place] [address] 35510- 6300 Aug, 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 [place] [address] [address] [id number] [place] [address] 42249- 5648 Jul, Bipolar disorder F31.9 ; Posttraumatic stress disorder F43.10 and Borderline personality disorder F60.3 [place] [address] [place] [address] 69166- 3860 Jul, [place] [address] [id number] [place] [address] 56770- 8114 Jun, Bipolar disorder F31.9 ; Posttraumatic stress disorder F43.10 and Borderline personality disorder F60.3 [place] [id number] [place] [address] 43608- 9231 Jun, Blindness of right eye H54.40 and Acquired hypothyroidism E03.9 [facility] [address] [id number] [place] [address] 10584- 2560 Jun, [place] [address] [address] [id number] [place] [address] 55417- 9669 May, Posttraumatic stress disorder F43.10 ; Social anxiety disorder F40.10 and Bipolar disorder F31.9 [place] [address] [place] [address] [id number] [place] [address] 17434- 7609 May, Bipolar disorder F31.9 ; Posttraumatic stress disorder F43.10 and Borderline personality disorder F60.3 [place] [address] [place] [address] [id number] [place] [address] 61300- 6128 May, [place] [address] [place] [address] 03060- 3273 May, [place] [address] [id number] [place] [address] 93989- 6358 Apr, Bipolar disorder F31.9 ; Posttraumatic stress disorder F43.10 and Borderline personality disorder F60.3 [place] [id number] [id number] Apr, [address] [place] [address] 51253- 2717 Apr, [place] [address] [place] [address] 16109- 1403 Mar, Hydradenitis L73.2 [place] [address] [place] [id number] [place] [address] 99364- 2809 Mar, Lumbago with sciatica, left side M54.42 ; Other chronic pain G89.29 ; Morbid obesity, unspecified obesity type E66.01 ; Hydradenitis L73.2 and BMI 40.0-44.9, adult Z68.41 [facility] [address] [place] [address] 34278- 9885 07 Mar, 2017 Bipolar disorder F31.9 ; Posttraumatic stress disorder F43.10 and Borderline personality disorder F60.3 [facility] [address] [place] [address] 35486- 9448 07 Mar, 2017 Social anxiety disorder F40.10 ; Bipolar disorder F31.9 and Relationship problem with family member Z63.8 [facility] [address] [place] [address] 62237- 5196 Mar, [facility] [address] [place] [address] AVE [id number] [id number] Mar, Dental examination Z01.20 [facility] [id number] [place] [address] 24989- 6276 Mar, [facility] [address] [place] [id number] [place] [address] 13829- 8962 Feb, Bipolar disorder F31.9 ; Posttraumatic stress disorder F43.10 and Borderline personality disorder F60.3 [address] [id number] Feb, [facility] [address] [place] [address] 93478- 1143 14 Jan, 2017 Bipolar disorder F31.9 ; Posttraumatic stress disorder F43.10 and Borderline personality disorder F60.3 [facility] [address] [id number] [id number] Jan, [facility] [address] [place] [address] 12314- 4948 Jan, [id number] [place] [id number] Jan, [facility] [address] [place] [address] 08107- 6302 Dec, Bipolar disorder F31.9 ; Posttraumatic stress disorder F43.10 and Borderline personality disorder F60.3 [place] [address] [address]- 6866 Dec, [facility] [address] [place] [address] 39428- 4215 Dec, [facility] [id number] [id number] Dec, [facility] [address] [place] [address] 36402- 3984 Nov, Bipolar 1 disorder F31.9 ; Posttraumatic stress disorder F43.10 and Social anxiety disorder F40.10 [place] [address] [place] [address] 22717- 5136 Nov, Bipolar disorder F31.9 ; Posttraumatic stress disorder F43.10 and Borderline personality disorder F60.3 [place] [address] [place] [address] 20808- 1606 Nov, Morbid obesity, unspecified obesity type E66.01 [place] [address] [address]- 0873 Nov, [address] [id number] Oct, Encounter for dental examination and cleaning without abnormal findings Z01.20 [place] [address] [place] [address] 55075- 4924 Oct, Morbid obesity, unspecified obesity type E66.01 and Acute seasonal allergic rhinitis due to pollen J30.1 [place] [address] [address]- 6419 Oct, Bipolar disorder F31.9 ; Posttraumatic stress disorder F43.10 and Borderline personality disorder F60.3 [place] [address] [address]- 7211 September, Morbid obesity, unspecified obesity type E66.01 and Psoriasis L40.9 [place] [address] [place] [id number] [place] [address] 35763- 6796 September, Bipolar disorder F31.9 ; Posttraumatic stress disorder F43.10 and Borderline personality disorder F60.3 [place] [address] [place] [address] [id number] [place] [address] 94097- 2160 September, Chronic pain G89.29 [place] [address] [place] [address] [id number] [place] [address] 07191- 8406 Aug, Other acute nonsuppurative otitis media of right ear H65.191 and Morbid obesity, unspecified obesity type E66.01 [place] [address] [place] [id number] [place] [address] 70464- 6081 Aug, Bipolar 1 disorder F31.9 ; Posttraumatic stress disorder F43.10 and Social anxiety disorder F40.10 [place] [address] [place] [id number] [place] [address] 29509- 0464 Aug, Bipolar disorder F31.9 ; Posttraumatic stress disorder F43.10 and Borderline personality disorder F60.3 [place] [address] [place] [id number] [place] [address] 35926- 3939 Jul, Morbid obesity due to excess calories E66.01 ; Gastro- esophageal reflux disease without esophagitis K21.9 and Chronic pain G89.29 [place] [address] [place] [address] 55784- 8566 Jul, Morbid obesity due to excess calories E66.01 [place] [address] [place] [id number] [place] [address] 76951- 7641 Jul, [place] [address] [place] [address] [id number] [place] [address] 49895- 7681 Jul, [place] [address] 38604- 6087 Jul, Morbid obesity due to excess calories E66.01 [place] [address] [place] [address] 31631- 2399 Jul, Bipolar disorder F31.9 ; Posttraumatic stress disorder F43.10 and Borderline personality disorder F60.3 [facility] [address] [place] [address] 53788- 5345 16 Jun, 2016 [facility] [address] [place] [id number] [place] [address] 02901- 6273 15 Jun, 2016 Morbid obesity due to excess calories E66.01 [facility] [address] [place] [id number] [place] [address] 65519- 1831 10 Jun, 2016 [facility] [address] [place] [id number] [place] [address] 60633- 2564 09 Jun, 2016 Morbid obesity, unspecified obesity type E66.01 [place] [address] [place] [id number] [place] [address] 65942- 8361 03 Jun, 2016 Bipolar disorder F31.9 ; Posttraumatic stress disorder F43.10 and Borderline personality disorder F60.3 [place] [address] [place] [id number] [place] [address] 00553- 6981 03 Jun, 2016 [facility] [id number] [place] [address] 84805- 9294 Jun, [place] [address] [place] [address] [id number] [place] [address] 33711- 9151 02 Jun, 2016 Acquired hypothyroidism E03.9 and Morbid obesity due to excess calories E66.01 [place] [address] [place] [address] 63663- 1567 May, Bipolar disorder F31.9 ; Posttraumatic stress disorder F43.10 and Borderline personality disorder F60.3 [place] [address], [place] [address]- 2082 Apr, Bipolar 1 disorder F31.9 ; Posttraumatic stress disorder F43.10 and Social anxiety disorder F40.10 [facility] [address] [id number] [id number] Apr, Encounter for dental examination Z01.20 [place] [address] [place] [address] 84888- 1314 Apr, [facility] [address] [place] [address] 31873- 4990 Apr, Acquired hypothyroidism E03.9 [facility] [address] [place] [address] 86500- 7805 Apr, Acquired hypothyroidism E03.9 [facility] [address] [place] [id number] [place] [address] 94530- 0223 Apr, Bipolar disorder F31.9 ; Posttraumatic stress disorder F43.10 and Borderline personality disorder F60.3 [place] [address] [place] [id number] [place] [address] 76963- 5233 Apr, Acquired hypothyroidism E03.[address] [place] [address] [id number] [id number] Mar, Encounter for dental examination and cleaning without abnormal findings Z01.20 [place] [address] [place] [id number] [place] [address] 16785- 6966 Mar, [facility] [address] [place] [id number] [place] [address] 25048- 5609 Mar, Bipolar disorder F31.9 ; Posttraumatic stress disorder F43.10 and Borderline personality disorder F60.3 [place] [address] [place] [id number] [place] [address] 60191- 2185 Mar, Essential (primary) hypertension I10 [place] [address] [place] [address] 80198- 1963 Feb, [facility] [address] [place] [id number] [place] [address] 41031- 1919 Feb, [place] [address] [place] [id number] [place] [address] 07625- 6606 11 Feb, 2016 Pelvic pain R10.2 ; Lipid screening Z13.220 ; Fatigue, unspecified type R53.83 and Weight gain R63.5 [place] [address] [place] [id number] [place] [address] 69832- 7585 Feb, Bipolar disorder F31.9 ; Posttraumatic stress disorder F43.10 and Borderline personality disorder F60.3 [facility] [address] [facility] [id number] [place] [address] 47579- 1728 Feb, [facility] [address] [facility] [id number] [place] [address] 82296- 5894 Feb, [facility] [address] [id number] [place] [address] 85538- 3297 Jan, Obstructive sleep apnea syndrome G47.33 [facility] [address] [place] [address] 39852- 3635 26 Jan, [address] [id number] [id number] 19 Jan, 2016 Dental examination Z01.20 [facility] [address] [place] [id number] [place] [address] 61140- 5493 Jan, Bipolar 1 disorder F31.9 ; Posttraumatic stress disorder F43.10 and Social anxiety disorder F40.10 [facility] [address] [place] [address] 71939- 0867 Jan, Bipolar disorder F31.9 ; Posttraumatic stress disorder F43.10 and Borderline personality disorder F60.3 [facility] [address] [place] [address] 17843- 5422 Jan, Sciatica of left side M54.32 [facility] [address] [place] [address] 73852- 3414 Jan, [facility] [address] [place] [address] 88873- 0161 Dec, [facility] [address] [place] [id number] [place] [address] 14520- 1384 Dec, [facility] [address] [place] [address] 54455- 1409 Dec, Bipolar disorder F31.9 ; Posttraumatic stress disorder F43.10 and Borderline personality disorder F60.3 [facility] [address] [address]- 4370 Nov, [facility] [address] [place] [address] [id number] [place] [address] 29791- 7645 Nov, Insomnia, unspecified type G47.00 [facility] [address] [place] [address] 37924- 2650 Nov, Bipolar disorder F31.9 ; Posttraumatic stress disorder F43.10 and Borderline personality disorder F60.3 [facility] [address] [place] [address] 35514- 9972 Nov, [facility] [address] [place] [id number] [place] [address] 17048- 1504 Nov, [facility] [address] [place] [address] [id number] [place] [address] 47916- 5313 Oct, Bipolar disorder F31.9 ; Posttraumatic stress disorder F43.10 and Borderline personality disorder F60.3 [facility] [address] [place] [address] 25194- 9037 Oct, [facility] [address] [place] [id number] [place] [address] 40337- 9211 Oct, Essential (primary) hypertension I10 [facility] [address] [place] [address] 98422- 6132 September, Bipolar 1 disorder F31.9 ; Posttraumatic stress disorder F43.10 and Social anxiety disorder F40.10 [facility] [address] [address]- 5335 September, Bipolar disorder F31.9 ; Posttraumatic stress disorder F43.10 and Borderline personality disorder F60.3 [facility] [address] [facility] [address] [id number] [id number] September, Encounter for dental examination and cleaning without abnormal findings Z01.20 [facility] [address], [place] [address]- 5404 September, [facility] [address] [address]- 6702 September, [facility] [address] [place] [address] 75581- 0785 Aug, [facility] [address] [place] [address] 73643- 9322 Aug, Bipolar disorder F31.9 ; Posttraumatic stress disorder F43.10 and Borderline personality disorder F60.3 [facility] [address] [place] [address] 70681- 9688 Aug, [facility] [address] [place] [id number] [place] [address] 93500- 5066 Aug, [facility] [address] [place] [address] 49683- 9336 Aug, [facility] [id number] [place] [address] [id number] Jul, Acute nasopharyngitis [common cold] J00 and Other viral agents as the cause of diseases classified elsewhere B97.89 [facility] [address] [place] [address] 09010- 9443 Jul, Chronic pain G89.29 and Allergic rhinitis J30.9 [facility] [address] [place] [address] 01586- 2427 Jul, Bipolar 1 disorder F31.9 ; Posttraumatic stress disorder F43.10 and Social anxiety disorder F40.10 [facility] [address], [place] [address]- 0733 Jul, Bipolar 1 disorder F31.9 [facility] [address] [place] [address] 31469- 5622 Jul, Bipolar disorder F31.9 ; Posttraumatic stress disorder F43.10 and Borderline personality disorder F60.3 [facility] [address] [place] [address] 53560- 0769 Jul, [facility] [address], [place] [address]- 4452 14 Jul, 2015 [facility] [address] [place] [id number] [place] [address] 02520- 2296 11 Jul, 2015 [facility] [address] [place] [id number] [place] [address] 04822 2546 10 Jul, 2015 Anxiety F41.9 [facility] [address] [place] [id number] [place] [address] 09970 2546 10 Jul, 2015 Chronic pain G89.29 and Encounter for therapeutic drug level monitoring Z51.81 [facility] [address] [place] [id number] [place] [address] 18162- 9124 09 Jul, 2015 Chronic pain G89.29 and Encounter for therapeutic drug level monitoring Z51.81 [facility] [address] [place] [id number] [place] [address] 05380- 0879 08 Jul, 2015 [facility] [address] [id number] [place] [address] 85838- 1704 Jun, [facility] [id number] [place] [address] 82259- 7343 Jun, [facility] [address] [id number] [place] [address] 01669- 0109 15 Jun, 2015 [facility] [address] [place] [address] 74180- 3610 15 Jun, 2015 [facility] [id number] [place] [address] 77480- 7091 Jun, High risk medication use V58.69 [facility] [address] [place] [id number] [place] [address] 24360- 8506 Jun, [facility] [id number] [place] [address] 31176- 8481 Jun, Bipolar 1 disorder F31.9 ; Overdose T50.901A and Chronic pain G89.29 [facility] [id number] [address]- 7486 09 Jun, 2015 Bipolar disorder F31.9 ; Posttraumatic stress disorder F43.10 and Borderline personality disorder F60.3 [facility] [address] [place] [address] 92897- 4888 08 Jun, 2015 [facility] [id number] [place] [address] 98767- 2054 Jun, [facility] [id number] [place] [address] 82227- 9086 Jun, Keloid L91.0 [facility] [address] [place] [id number] [place] [address] 23897- 4736 Jun, [facility] [id number] [place] [address] 12504- 7673 May, [facility] [id number] [place] [address] 75095- 1056 May, [facility] [address] [place] [address] 73838- 7245 May, Pelvic pain R10.2 [facility] [address] [place] [id number] [place] [address] 68308- 2129 May, [facility] [address] [place] [address] 78601- 4048 May, Pain of left thumb M79.645 ; Incisional pain R20.8 ; Pelvic pain R10.2 and Essential hypertension I10 [facility] [address], [place] [address]- 0724 May, [facility] [id number] [place] [address] 37790- 4752 May, [facility] [address] [id number] [id number] May, Dental examination Z01.20 and Necrosis of pulp K04.1 [facility] [address] [id number] [place] [address]- 1483 31 Apr, 2014 [facility] [place] [facility] [address] [id number] [place] [address]- 7758 Apr, 2014 [facility] [place] [facility] [address] [id number] [place] [address]- 2773 Apr, 2014 [facility] [place] [facility] [address] [id number] [place] [address]- 9066 Apr, 2014 [facility] [place] [facility] [address] [id number] [place] [address]- 7223 Apr, 2014 [facility] [place] [facility] [address] [id number] [place] 4515 Apr, 2014 [facility] [place] [facility] [address] [id number] [place] [address] Apr, 2014 [facility] [place] [facility] [address] [facility] [id number] [place] [address] Apr, 2014 [facility] [place] [facility] [address] [id number] [place] [address] Mar, [facility] [place] [facility] [address] [id number] [place] [address] Mar, [facility] [place] [facility] [address] [facility] [id number] [place] [address] Mar, [facility] [place] [facility] [address] [id number] [place] [address] Mar, [facility] [place] [facility] [address] [id number] [address] Feb, [facility] [place] [facility] [address] [id number] [place] [address] Feb, [facility] [place] [facility] [address] [facility] [id number] [place] [address] Feb, [facility] [place] [facility] [address] [id number] [address] [address] Feb, [facility] [id number] [address] Feb, [facility] [id number] [address] Feb, [facility] [id number] [address] Feb, [facility] [id number] [place] [address] Feb, Dermatofibroma of left lower leg D23.72 [facility] [facility] [address]00565[address] [address] Feb, Hematochezia 578.1 ; Low back pain M54.5 ; High risk medication use V58.69 ; Cervicalgia M54.2 and Anxiety F41.[address] [id number] [id number] Feb, Dental examination Z01.20 ; Pulpitis K04.0 and Dental caries, unspecified K02.[address] [id number][place] [id number] Feb, Dental examination Z01.20 [facility] [address] [address] 30 Jan, 2015 [facility] [address] [address] Jan, [facility] [address]005[address] [address] Jan, [facility] [address] [id number] [address] Jan, [facility] [address] [id number] [address] Dec, [facility] [address] [address] Dec, [facility] [address] [address] Dec, [facility] [address] [id number], [place] [address] Dec, [facility] [address] [id number], [place] [address] Dec, [facility] [address] [id number] [address] Dec, [facility] [address] [id number] [address] 9[address] Dec, [facility] [address] [id number], [place] [address] Dec, [facility] [address] [facility] [id number][place] [id number] Nov, Encounter for removal of sutures V58.32 [facility] [address] [id number][place] [address] Nov, [facility] [address] [id number] [address] Nov, [facility] [address] [id number] [address] 8560 Nov, [facility] [address] [id number] [address] 1015 Nov, [facility] [address] [id number][place] [address] Nov, [facility] [address] [id number] [address] 98[address] Nov, [facility] [address] [id number][place] [address] 1437 Nov, [facility] [address] [facility] [id number], [place] [address] Nov, Dermatofibroma 216.9 [facility] [address] [id number][place] [address] 5780 Nov, [facility] [address]005[address] [address] 95[address] Nov, [facility] [address]005[address] [address] Oct, [facility] [address]005[address] [address] [address] Oct, Hematochezia 578.1 ; Abscess 682.9 ; GERD (gastroesophageal reflux disease) 530.81 ; Visual disturbance of one eye 368.9 and High risk medication use V58.69 [facility] [address]00565100[place] 46[address] Oct, [facility] [address]005[address] [address] 4[address] Oct, [facility] [address] [id number] [address] Oct, [facility] [address]00565[address] [address] September, [facility] [address]00565100[place] [address] 2884 September, [facility] [address]00565100[place] [address]- 5920 September, [facility] [address]00565[address] [address] [address] September, [facility] [address] [id number] [address] 3[address] September, [facility] [address]00565[address] [address] [address] September, Colon cancer screening V76.51 [facility] [address]00565[address], [place] [address] 3666 September, [facility] [address]00565100[place], [place] [address]- 6[address] 14 Aug, 2014 [facility] [place] [facility] [address] [id number] [place] [address]- 3658 Aug, [facility] [place] [facility] [address] [id number] [place] [address]- 9426 Jul, [facility] [place] [facility] [address] [facility] [id number] [place] [address]- 7083 Jul, [facility] [place] [facility] [address] [id number] [place] [address]- 1007 Jul, [facility] [place] [facility] [address] [id number] [place] [address]- 5938 Jul, [facility] [place] [facility] [address] [id number] [place] [address]- 9265 Jun, [facility] [place] [facility] [address] [id number] [place] [address]- 0980 Jun, [facility] [place] [facility] [address] [id number] [address]- 3266 Jun, [facility] [place] [facility] [address] [id number] [place] [address]- 8968 Jun, [facility] [place] [facility] [address] [facility] [id number] [address]- 3619 Jun, [facility] [place] [facility] [address] [id number] [address]- 5926 Jun, [facility] [place] [facility] [address] [id number], [place] [address]- 7862 May, [facility] [place] [facility] [address] [id number] [address]- 8189 May, [facility] [place] [facility] [address] [facility] [id number] [address]- 2795 May, [facility] [place] [facility] [address] [facility] [id number][place] [address]- 4970 May, [facility] [place] [facility] [address] [id number] [place] [address]- 2398 May, [facility] [place] [facility] [address] [id number] [place] [address]- 1543 May, [facility] [place] [facility] [address] [id number] [place] [address]- 4889 May, [facility] [place] [facility] [address] [id number] [place] [address]- 5901 May, [facility] [place] [facility] [address] [id number] [place] [address]- 2387 Apr, [facility] [place] [facility] [address] [id number] [place] [address]- 6966 Apr, [facility] [place] [facility] [address] [id number] [place] [address]- 5304 Apr, [facility] [place] [facility] [address] [id number] [place] [address]- 6656 Apr, [facility] [place] [facility] [address] [id number] [place] [address]- 4000 Apr, [facility] [place] [facility] [address] [id number] [place] [address]- 9194 Apr, [facility] [place] [facility] [address] [id number] [place] 7590 Apr, [facility] [place] [facility] [address] [id number] [place] [address]- 3309 Apr, [facility] [place] [facility] [address] [id number] [place] [address]- 7482 Mar, [facility] [place] [facility] [address] [id number] [place] [address]- 1935 Mar, [facility] [place] [facility] [address] [id number] [place] [address]- 9451 Mar, [facility] [place] [facility] [address] [id number] [place] [address]- 3789 Mar, [facility] [place] [facility] [address] [id number] [place] [address]- 1048 Mar, [facility] [place] [facility] [address] [id number] [place] [address]- 0234 Mar, [facility] [place] [facility] [address] [id number] [place] [address]- 5996 Mar, [facility] [place] [facility] [address] [id number] [place] [address]- 9358 Mar, [facility] [place] [facility] [address] [id number] [place] [address]- 0244 Mar, [facility] [place] [facility] [address] [id number] [place] [address]- 0358 Mar, [facility] [place] [facility] [address] [id number] [place] [address]- 6868 Feb, [facility] [place] [facility] [address] [id number] [place] [address]- 3993 Feb, [facility] [place] [facility] [address] [id number] [place] [address]- 7408 Jan, [facility] [place] [facility] [address] [id number] [place] [address]- 4085 Jan, [facility] [place] [facility] [address] [id number] [address]- 5625 Jan, [facility] [place] [facility] [address] [id number][place] [address]- 4038 Jan, [facility] [place] [facility] [address] [id number] [place] [address]- 6015 Dec, [facility] [place] [facility] [address] [id number] [place] [address]- 7058 Dec, [facility] [place] [facility] [address] [id number] [place] [address]- 1193 Dec, [facility] [place] [facility] [address] [id number] [place] [address]- 9091 Dec, [facility] [place] [facility] [address] [id number] [place] [address]- 4378 Dec, [facility] [place] [facility] [address] [id number] [place] [address]- 5149 Dec, [facility] [place] [facility] [address] [id number] [place] [address]- 9275 Nov, [facility] [place] [facility] [address] [id number] [place] [address]- 8299 Nov, [facility] [place] [facility] [address] [id number] [place] [address]- 7279 Oct, [facility] [place] [facility] [address] [id number] [place] [address]- 4518 Oct, [facility] [place] [facility] [address] [id number] [place] [address]- 2002 Oct, [facility] [place] [facility] [address] [id number] [place] [address]- 1886 Oct, [facility] [place] [facility] [address] [id number] [place] [address]- 6180 September, [facility] [place] [facility] [address] [id number] [place] [address]- 3334 September, [facility] [place] [facility] [address] [id number] [place] [address]- 4172 September, [facility] [place] [facility] [address] [id number] [place] [address]- 3159 September, [facility] [place] [facility] [address] [id number] [place] 7308 September, [facility] [place] [facility] [address] [id number] [place] [address]- 4672 September, [facility] [place] [facility] [address] [id number] [place] 8012 September, [facility] [place] [facility] [address] [id number] [place] [address]- 8149 September, [facility] [place] [facility] [address] [id number] [place] [address]- 2618 Aug, [facility] [place] [facility] [address] [id number] [place] [address]- 4380 Aug, [facility] [place] [facility] [address] [id number] [place] [address]- 0378 Aug, [facility] [place] [facility] [address] [id number] [place] [address]- 5619 Aug, [facility] [place] [facility] [address] [id number] [place] [address]- 7683 Aug, [facility] [place] [facility] [address] [id number] [place] [address]- 6709 Aug, [facility] [place] [facility] [address] [id number] [place] [address]- 8445 Jul, [facility] [place] [facility] [address] [id number] [place] [address]- 5017 Jul, [facility] [place] [facility] [address] [id number] [place] [address]- 3113 Jul, [facility] [place] [facility] [address] [id number] [place] [address]- 7875 Jul, [facility] [place] [facility] [address] [id number][place] [address]- 8011 Jun, [facility] [place] [facility] [address] [id number] [place] [address]- 9084 Jun, [facility] [place] [facility] [address] [id number] [place] [address]- 8449 Jun, [facility] [place] [facility] [address] [id number] [place] [address]- 2519 Jun, [facility] [place] [facility] [address] [id number], [place] [address]- 0623 Jun, [facility] [address] [id number] [place] [address]- 2031 Jun, [facility] [address] [id number] [place] [address]- 5129 May, [facility] [address] [id number] [place] [address]- 5552 May, [facility] [address] [id number] [place] [address]- 0503 May, [facility] [address] [id number] [place] [address]- 2490 May, [facility] [address] [id number] [place] [address]- 9722 May, [facility] [address] [id number] [place] [address]- 6684 May, [facility] [address] [id number] [place] [address]- 3386 May, [facility] [address] [id number] [place] [address]- 5717 May, [facility] [address] [id number] [place] [address]- 7901 Apr, [facility] [address] [place] [id number] Apr, [facility] [address] [id number] [place] [address]- 6798 Apr, [facility] [address] [id number] [place] [address]- 8578 Apr, [facility] [address] [id number] [place] [address]- 0308 Apr, [facility] [address] [id number] [place] [address]- 9031 Apr, [facility] [address] [id number] [place] [address]- 4953 05 Apr, 2013 [facility] [address] [id number] [place] [address]- 2389 05 Apr, 2013 [facility] [address] [id number] [place] 3937 Apr, [facility] [address] [id number] [place] [address]- 1648 Mar, [facility] [address] [id number] [place] [address]- 4003 Mar, [facility] [address] [id number] [place] [address]- 6276 Mar, [facility] [address] [id number] [place] [address]- 6371 Mar, [facility] [address] [id number] [place] [address]- 4587 Mar, [facility] [address] [id number] [place] [address]- 5638 Feb, [facility] [address] [id number] [place] [address]- 1930 Feb, [facility] [address] [facility] [id number] [place] [address]- 7533 Feb, [facility] [place] [facility] [address] [id number] [place] [address]- 3838 Feb, [facility] [address] [id number] [place] [address]- 0249 Jan, [facility] [place] [facility] [address] [id number] [place] 8247 24 Jan, 2013 [facility] [place] [facility] [address] [id number] [place] [address]- 8435 12 Jan, 2013 [facility] [place] [facility] [address] [id number] [place] [address]- 8987 Dec, [facility] [address] [id number] [place] [address]- 2546 Dec, [facility] [address] [id number] [place] [address]- 2546 Dec, [facility] [address] [id number] [place] [id number] Nov, [facility] [address] [id number] [place] [id number] Oct, [facility] [address] [id number] [place] [address]- 2546 Oct, [facility] [address] [id number] [place] [address]- 2546 September, [facility] [address] [id number] [place] [address]- 2546 September, [facility] [address] [id number] [place] [address]- 2546 September, [facility] [address] [id number] [place] [address]- 2546 September, [facility] [address] [id number] [place] [address]- 2546 September, [facility] [address] [id number] [place] [address]- 2546 Jul, [facility] [place] [facility] [address] [id number] [place] [address]- 2546 Jul, [facility] [place] [facility] [address] [id number] [place] [address]- 2546 Jul, [facility] [place] [facility] [address] [id number] [place] [address]- 2546 Jul, [facility] [place] [facility] [address] [id number] [place] [address]- 2546 Jun, [facility] [place] [facility] [address] [id number] [place] [address]- 5619 Jun, [facility] [place] [facility] [address] [id number] [place] [address]- 9290 Jun, [facility] [place] [facility] [address] [id number] [place] [address]- 4296 Jun, [facility] [place] [facility] [address] [id number] [place] [address]- 0616 May, [facility] [place] [facility] [address] [id number] [place] [address]- 9537 Mar, [facility] [place] [facility] [address] [id number] [place] [address]- 8509 Mar, [facility] [place] [facility] [address] [id number] [place] [address]- 9724 Mar, [facility] [place] [facility] [address] [id number] [place] [address]- 9729 Mar, [facility] [place] [facility] [address] [id number], [place] [address]- 5425 Mar, [facility] [place] [facility] [address] [id number] [place] [address]- 5163 Mar, [facility] [place] [facility] [address] [id number] [place] [address]- 4286 Mar, [facility] [place] [facility] [address] [id number], [place] [address]- 9969 Mar, [facility] [place] [facility] [address] [id number][place] [address]- 1819 Feb, [facility] [place] [facility] [address] [id number] [place] [address]- 8456 Feb, [facility] [place] [facility] [address] [id number], [place] [address]- 4700 Feb, [facility] [place] [facility] [address] [id number], [place] [address]- 0422 Feb, [facility] [place] [facility] [address] [facility] [id number], [place] [address]- 8326 Feb, [facility] [place] [facility] [address] [id number], [place] [address]- 0456 Feb, [facility] [place] [facility] [address] [facility] [id number], [place] [address]- 2546 Feb, [facility] [address] [facility] [id number] [place] [id number] Jan, [facility] [address] [id number] [place] [id number] Dec, [facility] [address] [id number] [place] [id number] Dec, [facility] [place] [facility] [address] [facility] [id number][place] [address]- 2096 Nov, [facility] [place] [facility] [address] [id number], [place] [address]- 2546 Nov, [facility] [place] [facility] [address] [facility] [id number][place] [address]- 6950 Oct, [facility] [place] [facility] [address] [facility] [id number], [place] [address]- 5852 Jul, [facility] [place] [facility] [address] [facility] [id number][place] [address]- 8391 Jul, [facility] [place] [facility] [address] [facility] [id number], [place] [address]- 6937 May, [facility] [place] [facility] [address] [facility] [id number][place] [address] May, [facility] [place] [facility] [address] [facility] [id number][place] [address] Nov, [facility] [place] [facility] [address] [facility] [id number], [place] [address] Mar, [facility] [place] [facility] [address] [facility] [id number] [place] [address] Dec, [facility] [place] [facility] [address] [id number] [address] Nov, [facility] [id number] [address] Aug, [facility] [address] [id number] [address] Apr, [facility] [id number] [address] Apr, [facility] [id number] [address] Mar, [facility] [id number] [place] [address] Feb, [facility] [id number] [address] September, [facility] [id number] [address] Jun, [facility] [id number] [address] Mar, IMMUNIZATIONS No Known Immunizations SOCIAL HISTORY Never Assessed REASON FOR VISIT restorative PLAN OF CARE Activity Details Follow Up 1 Month Reason:recall VITAL SIGNS Height 62 in 2017-03-21 Blood pressure systolic 111 mmHg 2017-03-21 Blood pressure diastolic 66 mmHg 2017-03-21 MEDICATIONS Medication Instructions Dosage Frequency Start Date End Date Duration Status Combivent Respimat 20-100 MCG/ACT Inhalation Four times a day 1 puff 6h 30 Active Loratadine 10 mg Orally 2 times a day 1 tablet 12h September, 90 days Active Tizanidine HCl 2 MG Orally 2 times a day 1 tablet as needed 12h Feb, 90 days Active Cymbalta 60 mg Orally Once a day with Cymbalta 30mg. Total dose is 90mg 1 capsule Active Doxepin HCl 10 mg Orally Once at bedtime for sleep 1 capsule at bedtime September, Active Depo-Estradiol 5 MG/ML Intramuscular once monthly 1 ml Active Imitrex 50 mg Orally Once a day 1 tablet as needed at start of migraine 24h 30 Active Contrave 8-90 MG Orally Twice a day 2 tablets 12h Jun, 30 days Active Levothyroxine Sodium 25 MCG 1 tablet on an empty stomach in the morning Once a day Orally 30 day(s) 30 90 Active Sumatriptan 5 mg by oral route Once a day 1 tablet 24h Active Creon 24643 UNIT Orally 3 times a day 1 capsule before meals 8h Nov, 90 days Active Dicyclomine HCl 20 mg 1 tablet Four times a day Orally 30 days 90 Active Fish Oil 300 MG Orally Once a day 1 capsule 24h Active Carafate 1 GM Orally 4 times a day 1 tablet on an empty stomach 6h 90 Active Cymbalta 30 MG Orally Once a day with Cymbalta 60mg. Total dose 90mg 1 capsule along with 60mg Active Oxygen 2 L/NC Active Lamotrigine 150 MG Orally Once a day 1 tablet 24h Active Losartan Potassium-HCTZ 50-12.5 MG Orally Once a day 1 tablet 24h 90 Active Atorvastatin Calcium 20 MG Orally Once a day 1 tablet 24h Active Gabapentin 300 MG Orally 3 times a day 1 tablet 8h 90 days Active RESULTS No Results PROCEDURES Procedure Date Ordered Result Body Site RSN COMPOS-4/> SURF/W/INCISAL ANG Mar 21, 2017 Billing Notes on claim Mar 21, 2017 INSTRUCTIONS MEDICATIONS ADMINISTERED No Known Medications [...] hernia Hospitalization History Went by ambulance to [facility] as unresponsive 05/2015 Hospitalization History [facility] sent her to [facility] for a psych hold 05/2015
--- OUTSIDE RECORDS SUMMARY | 2018-03-15 11:20 | XMS REPORT ---
Author Author HERBERT MCGOWAN [facility] eClinicalWorks Address Unknown Phone Unavailable Care Team Providers Care Clearance Representative Name Role Phone HERBERT MCGOWAN CP [...]
--- OUTSIDE RECORDS SUMMARY | 2018-03-15 11:20 | XMS REPORT ---
Author Author HERBERT MCGOWAN [facility] e[employer] Address Unknown Phone Unavailable Care Team Providers Care Milk Collector Name Role Phone HERBERT MCGOWAN Unavailable Allergies, Adverse Reactions, Alerts Substance Reaction Event Type Codeine Sulfate Info Not Available Drug Allergy Aspirin Info Not Available Drug Allergy IVP dye Info Not Available [...] Problem Essential hypertension, benign 401.1 Active Assessment High risk medication use V58.69 Active Assessment Low back pain M54.5 Active Assessment Anxiety F41.9 Active Assessment Cervicalgia M54.2 Active Problem Hypopotassemia 276.8 Active Problem Urinary tract infection, site not specified 599.0 Active Assessment Hematochezia 578.1 Active Problem Blood in stool 578.1 Active Problem Dehydration 276.51 Active Problem Abdominal pain, generalized 789.07 Active Medications Medication Code System Code Instructions Start Date End Date Status Dosage PrednisoLONE Sodium Phosphate [facility] [address]-11 1 % Ophthalmic 4 times a day 1 drop into affected eye Depo-Estradiol [facility] [address]-08 5 MG/ML Intramuscular 1 ml TENS Unit ND 0 device Use as directed Combivent Respimat [facility] [address]-44 20-100 MCG/ACT Inhalation Four times a day 1 puff Zolpidem Tartrate [facility] [address]-74 10 MG Orally Once a day 1 tablet at bedtime as needed Cymbalta [facility] [address]-51 30 MG Orally Once a day Feb 18, 2015 3 capsule Bentyl [facility] [address]-19 20 MG Jun 07, 2014 1 tablet by Oral route every 6 hours PRN Fish Oil [facility] [address]-52 1000 MG Orally Once a day 1 capsule Vagifem [facility] [address]-42 10 MCG Vaginal 1 tablet Albuterol Sulfate [facility] [address]-85 (2.5 MG/3ML) 0.083% Inhalation every 4 hrs 3 ml Cymbalta [facility] [address]-09 30 MG Orally Once a day 1 capsule with the 60mg tab she has at home Hyzaar [facility] [address]-29 50-12.5 MG Orally Once a day October 04, 2014 1 tablet Lipitor [facility] [address]-61 20 MG Orally Once a day 1 tablet Loratadine [facility] [address]-39 10 MG October 09, 2013 1 tablet by Oral route 2 times per day Lidocaine HCl-Epinephrine [facility] 0 10-0.1 % Externally not defined Dicyclomine HCl [facility] [address]-88 20 MG Orally Four times a day 1 tablet Creon [facility] [address]-28 76085 UNIT Orally 3 times a day before meals December 10, 2014 as directed Protonix [facility] [address]-91 20 MG Orally Once a day November 05, 2014 1 tablet Tizanidine HCl [facility] [address]-80 2 MG Orally 2 times a day Feb 18, 2015 Apr 19, 2015 1 tablet as needed Carafate [facility] [address]-63 1 GM Orally 4 times a day 1 tablet on an empty stomach Hydrocodone-Acetaminophen [facility] [address]-90 7.5-325 MG July 29, 2014 1 tablet by Oral route 3 times per day PRN Procedures Procedure Coding System Code Date Office Visit, Est Pt., Level 3 CPT-4 12637 Feb 18, 2015 No Charge CPT-4 01945 Feb 18, 2015 Vital Signs Date/Time: Feb 18, 2015 Cardiac Monitoring Heart Rate 80 bpm Weight 212.5 lbs Height 62 in BMI 38.86 Index Blood Pressure Diastolic 105 mmHg Blood Pressure Systolic 150 mmHg Results Name Result Date Reference Range Unit Abnormality Flag HEMOCCULT (IN HOUSE) [employer] Summary Purpose [employer]ClinicalWorks Submission
--- OUTSIDE RECORDS SUMMARY | 2018-03-15 11:20 | XMS REPORT ---
Author Author HERBERT MCGOWAN Organization [employer] Address Unknown Phone Unavailable Care Team Providers Care Fruit Sorter Name Role Phone HERBERT MCGOWAN CP Unavailable [...] Instructions Start Date End Date Status Dosage Cyclobenzaprine HCl [facility] [address]-72 10 MG Orally 2 times a day PRN November 04, 2014 1 tablet Results No Known Results Summary Purpose eClinicalWorks Submission
--- OUTSIDE RECORDS SUMMARY | 2018-03-15 11:21 | XMS REPORT ---
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 Active 050555604 Problem Pelvic pain R10.2 Active 44742204 Problem Blindness of right eye H54.40 Active 806350255 Problem Relationship problem with family member Z63.8 Active 466766683 Problem Essential hypertension I10 Active 20231988 Problem Other chronic pain G89.29 Active 38111466 Problem Lumbago with sciatica, left side M54.42 Active 781380685 Problem Bipolar disorder F31.9 Active 22264734 Problem Posttraumatic stress disorder F43.10 Active 11705290 Problem Bilateral low back pain with sciatica, sciatica laterality unspecified M54.40 Active 858128374 Problem Visual disturbance H53.9 Active 24985074 Problem Overdose T50.901A Active 62279588 Problem Social anxiety disorder F40.10 Active 34923469 Problem Borderline personality disorder F60.3 Active 56563087 Problem Obstructive sleep apnea G47.33 Active 89704652 Problem Chronic pain G89.29 Active 04383425 Problem Acquired hypothyroidism E03.9 Active [id number] ALLERGIES No Information ENCOUNTERS Encounter Location Date Diagnosis [facility] [address], [place] [address] Nov, [facility] [address], [place] [address] Oct, [facility] [address] [id number] [place] [address] 28944- 6931 Oct, [place] [address] [address]1987[address] September, Serpiginous choroiditis H31.22 [place] [id number] [place] [address] 87977- 6735 September, Bipolar disorder F31.9 ; Posttraumatic stress disorder F43.10 and Borderline personality disorder F60.3 [place] [address] 73465- 8510 Aug, BMI 40.0-44.9, adult Z68.41 ; Bipolar disorder F31.9 ; Posttraumatic stress disorder F43.10 and Social anxiety disorder F40.10 [place] [id number] [place] [address] 60890- 8515 Aug, Bipolar disorder F31.9 ; Posttraumatic stress disorder F43.10 and Borderline personality disorder F60.3 [place] [id number] [place] [address] 45859- 9886 Aug, Serpiginous choroiditis H31.22 [place] [id number] [place] [address] 75068- 8257 Jul, Bipolar disorder F31.9 ; Posttraumatic stress disorder F43.10 and Borderline personality disorder F60.3 [place] [id number] [place] [address] 46928- 3610 Jul, [place] [id number] [place] [address] 21466- 9641 Jun, Bipolar disorder F31.9 ; Posttraumatic stress disorder F43.10 and Borderline personality disorder F60.3 [place] [address] 82629- 9127 Jun, Blindness of right eye H54.40 and Acquired hypothyroidism E03.9 [place] [address] 02862- 0524 Jun, [facility] [address], [place] [address] 94[address] May, Posttraumatic stress disorder F43.10 ; Social anxiety disorder F40.10 and Bipolar disorder F31.9 [facility] [address], [place] [address] 8[address] May, Bipolar disorder F31.9 ; Posttraumatic stress disorder F43.10 and Borderline personality disorder F60.3 [facility] [address] [place] [address] 78569- 8418 May, [facility] [address] [place] [address] 11990- 1712 May, [facility] [address] [place] [address] 97895- 2980 Apr, Bipolar disorder F31.9 ; Posttraumatic stress disorder F43.10 and Borderline personality disorder F60.3 [address] [id number] Apr, [facility] [address] [place] [address] 84214- 8742 Apr, [place] [address] [place] [address] 61867- 8374 Mar, Hydradenitis L73.2 [place] [address] [place] [address] 79264- 4859 Mar, Lumbago with sciatica, left side M54.42 ; Other chronic pain G89.29 ; Morbid obesity, unspecified obesity type E66.01 ; Hydradenitis L73.2 and BMI 40.0-44.9, adult Z68.41 [facility] [address] [place] [address] 92015- 2009 Mar, Bipolar disorder F31.9 ; Posttraumatic stress disorder F43.10 and Borderline personality disorder F60.3 [facility] [id number] [place] [address] 09752- 5885 Mar, Social anxiety disorder F40.10 ; Bipolar disorder F31.9 and Relationship problem with family member Z63.8 [facility] [address], [place] [address] 89[address] Mar, [facility] [address] [id number] [place] [id number] Mar, Dental examination Z01.20 [facility] [id number] [place] [address] 66233- 1978 Mar, [facility] [id number] [place] [address] 54703- 0047 Feb, Bipolar disorder F31.9 ; Posttraumatic stress disorder F43.10 and Borderline personality disorder F60.3 [facility] [id number] [place] [address] [id number] Feb, [facility] [address] [place] [address] 56824- 6428 Jan, Bipolar disorder F31.9 ; Posttraumatic stress disorder F43.10 and Borderline personality disorder F60.3 [facility] [address] [id number] [place] [id number] Jan, [facility] [address] [place] [address] 88901- 7394 Jan, [facility] [id number] [id number] Jan, [facility] [address] [place] [address] 39067- 4849 Dec, Bipolar disorder F31.9 ; Posttraumatic stress disorder F43.10 and Borderline personality disorder F60.3 [facility] [id number] [place] [address] 65687- 9703 Dec, [facility] [id number] [place] [address] 48384- 9389 Dec, [facility] [address] [facility] [id number] [place] [address] [id number] Dec, [place] [address], [place] [address] 26[address] Nov, Bipolar 1 disorder F31.9 ; Posttraumatic stress disorder F43.10 and Social anxiety disorder F40.10 [place] [address] [place] [address] 94016- 3187 Nov, Bipolar disorder F31.9 ; Posttraumatic stress disorder F43.10 and Borderline personality disorder F60.3 [place] [id number] [place] [address] 52127- 7006 Nov, Morbid obesity, unspecified obesity type E66.01 [place] [id number] [place] [address] 20619- 9255 Nov, [address] [id number] Oct, Encounter for dental examination and cleaning without abnormal findings Z01.20 [place] [id number] [place] [address] 84570- 9475 Oct, Morbid obesity, unspecified obesity type E66.01 and Acute seasonal allergic rhinitis due to pollen J30.1 [place] [id number] [place] [address] 58153- 2449 Oct, Bipolar disorder F31.9 ; Posttraumatic stress disorder F43.10 and Borderline personality disorder F60.3 [place] [id number] [place] [address] 75146- 4518 September, Morbid obesity, unspecified obesity type E66.01 and Psoriasis L40.9 [address] [place] [address] 88991- 8033 September, Bipolar disorder F31.9 ; Posttraumatic stress disorder F43.10 and Borderline personality disorder F60.3 [address] [place] [address] 38782- 8586 September, Chronic pain G89.29 [place] [id number] [place] [address] 64980- 6196 Aug, Other acute nonsuppurative otitis media of right ear H65.191 and Morbid obesity, unspecified obesity type E66.01 [facility] [id number] [place] [address] 70879- 3581 Aug, Bipolar 1 disorder F31.9 ; Posttraumatic stress disorder F43.10 and Social anxiety disorder F40.10 [place] [address] 80762- 1092 Aug, Bipolar disorder F31.9 ; Posttraumatic stress disorder F43.10 and Borderline personality disorder F60.3 [place] [id number] [place] [address] 101951- 8805 Jul, Morbid obesity due to excess calories E66.01 ; Gastro- esophageal reflux disease without esophagitis K21.9 and Chronic pain G89.29 [place] [id number] [place] [address] 87134- 9024 Jul, Morbid obesity due to excess calories E66.01 [facility] [id number] [place] [address] 07899- 1390 Jul, [facility] [address] 49439- 0546 Jul, [facility] [address] [address] [id number] [place] [address] 73761- 1109 Jul, Morbid obesity due to excess calories E66.01 [facility] [id number] [place] [address] 29948- 1763 Jul, Bipolar disorder F31.9 ; Posttraumatic stress disorder F43.10 and Borderline personality disorder F60.3 [facility] [id number] [place] [address] 54685- 9605 Jun, [facility] [id number] [place] [address] 74337- 8037 Jun, Morbid obesity due to excess calories E66.01 [facility] [address] [place] [address]- 6639 Jun, [facility] [address] [place] [address] 42941- 9664 09 Jun, 2016 Morbid obesity, unspecified obesity type E66.01 [facility] [address] [place] [address] 50600- 9355 03 Jun, 2016 Bipolar disorder F31.9 ; Posttraumatic stress disorder F43.10 and Borderline personality disorder F60.3 [facility] [id number] [place] [address] 24574- 3462 Jun, [facility] [id number] [place] [address] 80450- 1488 Jun, [facility] [id number] [place] [address] 60714- 8933 Jun, Acquired hypothyroidism E03.9 and Morbid obesity due to excess calories E66.01 [facility] [address] [place] [address] 86179- 3572 May, Bipolar disorder F31.9 ; Posttraumatic stress disorder F43.10 and Borderline personality disorder F60.3 [facility] [address] [place] [address] 19875- 9163 Apr, Bipolar 1 disorder F31.9 ; Posttraumatic stress disorder F43.10 and Social anxiety disorder F40.[address] [place] [place] [address] [id number] [place] [id number] Apr, Encounter for dental examination Z01.20 [facility] [address] [place] [address] 29174- 2878 Apr, [facility] [id number] [place] [address] 88488- 2244 Apr, Acquired hypothyroidism E03.9 [facility] [address] [place] [address] 18514- 9412 Apr, Acquired hypothyroidism E03.9 [facility] [id number] [place] [address] 66538- 4184 Apr, Bipolar disorder F31.9 ; Posttraumatic stress disorder F43.10 and Borderline personality disorder F60.3 [facility] [id number] [place] [address] 07034- 4704 Apr, Acquired hypothyroidism E03.[address] [place] [address] [id number] [place] [id number] Mar, Encounter for dental examination and cleaning without abnormal findings Z01.20 [facility] [id number] [place] [address] 35042- 8968 Mar, [facility] [address] 10102- 4896 Mar, Bipolar disorder F31.9 ; Posttraumatic stress disorder F43.10 and Borderline personality disorder F60.3 [place] [address] 39483- 0267 Mar, Essential (primary) hypertension I10 [facility] [id number] [place] [address] 98073- 9608 Feb, [facility] [id number] [place] [address] 45913- 3130 Feb, [facility] [id number] [place] [address] 76716- 2739 Feb, Pelvic pain R10.2 ; Lipid screening Z13.220 ; Fatigue, unspecified type R53.83 and Weight gain R63.5 [facility] [id number] [place] [address] 95747- 4661 Feb, Bipolar disorder F31.9 ; Posttraumatic stress disorder F43.10 and Borderline personality disorder F60.3 [facility] [id number] [place] [address] 27921- 3615 Feb, [facility] [id number] [place] [address] 48361- 7527 Feb, [facility] [address] [place] [address] 51765- 9623 30 Jan, 2016 Obstructive sleep apnea syndrome G47.33 [facility] [id number] [place] [address] 86754- 1870 26 Jan, 2016 [facility] [address] [place] [address] AVE [id number] [place] [id number] 19 Jan, 2016 Dental examination Z01.20 [facility] [id number] [place] [address] 38980- 0739 13 Jan, 2016 Bipolar 1 disorder F31.9 ; Posttraumatic stress disorder F43.10 and Social anxiety disorder F40.10 [place] [id number] [place] [address] 53290- 7465 Jan, Bipolar disorder F31.9 ; Posttraumatic stress disorder F43.10 and Borderline personality disorder F60.3 [facility] [address] 54867- 1712 Jan, Sciatica of left side M54.32 [facility] [id number] [place] [address] 95198- 1965 Jan, [facility] [id number] [place] [address] 77047- 8064 Dec, [facility] [id number] [place] [address] 53476- 4147 Dec, [facility] [id number] [place] [address] 19468- 8778 Dec, Bipolar disorder F31.9 ; Posttraumatic stress disorder F43.10 and Borderline personality disorder F60.3 [facility] [id number] [place] [address] 70943- 5010 Nov, [facility] [id number] [place] [address] 97821- 2946 Nov, Insomnia, unspecified type G47.00 [facility] [address] [place] [address] 85423- 7586 Nov, Bipolar disorder F31.9 ; Posttraumatic stress disorder F43.10 and Borderline personality disorder F60.3 [facility] [address] [place] [address] 10059- 7520 Nov, [facility] [address] [place] [address] 51387- 7015 Nov, [facility] [id number] [place] [address] 39994- 2171 Oct, Bipolar disorder F31.9 ; Posttraumatic stress disorder F43.10 and Borderline personality disorder F60.3 [facility] [id number] [place] [address] 17463- 8119 Oct, [facility] [id number] [place] [address] 45655- 2392 Oct, Essential (primary) hypertension I10 [facility] [address] [place] [address] 94511- 7356 September, Bipolar 1 disorder F31.9 ; Posttraumatic stress disorder F43.10 and Social anxiety disorder F40.10 [facility] [address] [place] [address] 03557- 1098 September, Bipolar disorder F31.9 ; Posttraumatic stress disorder F43.10 and Borderline personality disorder F60.[address] [place] [id number] [id number] September, Encounter for dental examination and cleaning without abnormal findings Z01.20 [facility] [address], [place] [address]- 5522 September, [facility] [address] [place] [address] 12805- 9194 September, [facility] [address] [place] [address] 88479- 6512 Aug, [facility] [address] [place] [address] 11082- 8547 Aug, Bipolar disorder F31.9 ; Posttraumatic stress disorder F43.10 and Borderline personality disorder F60.3 [facility] [address], [place] [address]- 8938 Aug, [facility] [address], [place] [address]- 6825 Aug, [facility] [address] [place] [address] 43738- 6794 Aug, [facility] [id number] [id number] 28 Jul, 2015 Acute nasopharyngitis [common cold] J00 and Other viral agents as the cause of diseases classified elsewhere B97.89 [facility] [address] [place] [address] 72211- 9010 24 Jul, 2015 Chronic pain G89.29 and Allergic rhinitis J30.9 [facility] [address] [place] [address] 22701- 6376 24 Jul, 2015 Bipolar 1 disorder F31.9 ; Posttraumatic stress disorder F43.10 and Social anxiety disorder F40.10 [facility] [address] [place] [address] 28323- 5626 16 Jul, 2015 Bipolar 1 disorder F31.9 [facility] [address] [place] [address] 12268- 6309 16 Jul, 2015 Bipolar disorder F31.9 ; Posttraumatic stress disorder F43.10 and Borderline personality disorder F60.3 [facility] [address], [place] [address]- 4299 14 Jul, 2015 [facility] [address] [place] [address] 97531- 9158 14 Jul, 2015 [facility] [address] [place] [address] 88757- 1323 11 Jul, 2015 [facility] [address], [place] [address]- 4654 10 Jul, 2015 Anxiety F41.9 [place] [address], [place] [address]- 4399 10 Jul, 2015 Chronic pain G89.29 and Encounter for therapeutic drug level monitoring Z51.81 [facility] [address] [place] [address] 11929 2540 09 Jul, 2015 Chronic pain G89.29 and Encounter for therapeutic drug level monitoring Z51.81 [facility] [id number] [place] [address] 91184- 9463 08 Jul, 2015 [facility] [id number] [place] [address] 03062- 4152 Jun, [facility] [id number] [place] [address] 84187- 3578 Jun, [facility] [id number] [place] [address] 13024- 6368 Jun, [facility] [id number] [place] [address] 85219- 2545 Jun, [facility] [address] [place] [address] 24046- 4630 Jun, High risk medication use V58.69 [facility] [address], [place] [address]- 1868 Jun, [facility] [address], [place] [address]- 6098 Jun, Bipolar 1 disorder F31.9 ; Overdose T50.901A and Chronic pain G89.29 [facility] [address], [place] [address] 2548 Jun, Bipolar disorder F31.9 ; Posttraumatic stress disorder F43.10 and Borderline personality disorder F60.3 [facility] [address], [place] [address]- 2546 08 Jun, 2015 [facility] [address] [place] [address] 31370- 9120 Jun, [facility] [address] [place] [address] 94854- 8640 Jun, Keloid L91.0 [facility] [address] [place] [address] 74773- 3672 Jun, [facility] [id number] [place] [address] 76963- 8687 May, [facility] [id number] [place] [address] 23746- 1025 May, [facility] [id number] [place] [address] 26584- 0703 May, Pelvic pain R10.2 [facility] [id number] [place] [address] 69998- 3199 May, [facility] [id number] [place] [address] 86321- 7391 May, Pain of left thumb M79.645 ; Incisional pain R20.8 ; Pelvic pain R10.2 and Essential hypertension I10 [facility] [address] [place] [address] 02230- 7383 May, [facility] [address] [place] [address] 65600- 2123 May, [address] [facility] [id number] [place] [id number] May, Dental examination Z01.20 and Necrosis of pulp K04.1 [facility] [address] [place] [address] 30086- 6841 Apr, [facility] [id number] [place] [address]- 8958 Apr, [facility] [id number] [place] [address]- 4407 Apr, [facility] [id number] [place] [address] 06328- 2546 08 Apr, 2014 [facility] [place] [facility] [address] [id number] [place] [address] 08 Apr, 2014 [facility] [place] [facility] [address] [id number] [place] [address] Apr, 2014 [facility] [place] [facility] [address] [id number] [place] [address] Apr, 2014 [facility] [place] [facility] [address] [id number] [place] [address]286 Apr, 2014 [facility] [place] [facility] [address] [id number] [place] [address] Mar, [facility] [place] [facility] [address] [id number] [place] [address] 1651 Mar, [facility] [place] [facility] [address] [id number] [place] [address]26 Mar, [facility] [place] [facility] [address] [id number] [place] [address] 2300 Mar, [facility] [place] [facility] [address] [id number] [place] [address]3 30 Feb, 2015 [facility] [place] [facility] [address] [id number] [place] [address] 8733 Feb, [facility] [place] [facility] [address] [id number], [place] [address] Feb, 2014 [facility] [place] [facility] [address] [id number], [place] [address] Feb, 2014 [facility] [place] [facility] [address] [id number] [place] Feb, 2014 [facility] [place] [facility] [address] [id number], [place] [address] 19 Feb, 2014 [facility] [place] [facility] [address] [id number][place] [address] 16 Feb, 2014 [facility] [place] [facility] [id number] [place] [address]- 6199 Feb, Dermatofibroma of left lower leg D23.72 [facility] [id number] [place] [address] 22258- 3925 Feb, Hematochezia 578.1 ; Low back pain M54.5 ; High risk medication use V58.69 ; Cervicalgia M54.2 and Anxiety F41.9 [address] [id number] Feb, Dental examination Z01.20 ; Pulpitis K04.0 and Dental caries, unspecified K02.9 [id number] [place] [address] [id number] Feb, Dental examination Z01.20 [facility] [id number] [place] [address] 89040- 9631 Jan, [facility] [id number] [place] [address] 69954- 9019 Jan, [facility] [id number] [place] [address] 95817- 5386 Jan, [facility] [id number] [place] [address] 63396- 2837 Jan, [facility] [id number] [place] [address] 00349- 8976 Dec, [facility] [id number] [place] [address] 02234- 7763 Dec, [facility] [id number] [place] [address] 87731- 3491 Dec, [facility] [id number] [place] [address] 68932- 0099 Dec, [facility] [id number] [place] [address] 83338- 8027 Dec, [facility] [id number] [place] [address] 25547- 5977 Dec, [facility] [address] [id number] [place] [address]- 7139 Dec, [facility] [address] [facility] [id number], [place] [address]- 1485 Dec, [facility] [address] [id number] [id number] Nov, Encounter for removal of sutures V58.32 [facility] [address] [id number] [place] [address] 2542 Nov, [facility] [address] [id number] [place] [address]- 5659 Nov, [facility] [address] [facility] [id number] [place] [address]- 9278 Nov, [facility] [address] [id number] [place] [address]- 3249 Nov, [facility] [address] [id number], [place] [address]- 0743 Nov, [facility] [address] [facility] [id number] [place] [address]- 7914 Nov, [facility] [address] [facility] [id number], [place] [address]- 2582 Nov, [facility] [address] [facility] [id number], [place] [address]- 2036 Nov, Dermatofibroma 216.9 [facility] [address] [id number], [place] [address]- 2542 Nov, [facility] [address] [facility] [id number] [place] [address]- 3006 Nov, [facility] [address] [facility] [id number] [place] [address]- 5474 Oct, [facility] [address] [facility] [id number], [place] [address]- 4277 Oct, Hematochezia 578.1 ; Abscess 682.9 ; GERD (gastroesophageal reflux disease) 530.81 ; Visual disturbance of one eye 368.9 and High risk medication use V58.69 [facility] [address]00565[address] 8750 Oct, [facility] [id number] [place] [address] 44611- 8236 Oct, [facility] [id number] [place] [address] 55328- 3301 Oct, [facility] [id number] [place] [address] 658618- 9170 September, [facility] [id number] [place] [address] 652025- 4438 September, [facility] [id number] [place] [address] 45891- 9045 September, [facility] [id number] [place] [address] 15256- 7066 September, [facility] [id number] [place] [address] 418667- 6810 September, [facility] [id number] [place] [address] 73308- 6716 September, Colon cancer screening V76.51 [facility] [id number] [place] [address] [id number]- 3576 September, [facility] [address]65[address], [place] [address]- 3929 Aug, [facility] [id number] [place] [address] 87962- 7081 Aug, [facility] [address] [id number], [place] [address]- 7756 Jul, [facility] [id number] [place] [address] 25579- 0016 Jul, [facility] [place] [facility] [address] [id number] [place] [address]- 5435 Jul, [facility] [place] [facility] [address] [id number] [place] [address]- 3530 Jul, [facility] [place] [facility] [address] [id number] [place] [address]- 8578 Jun, [facility] [place] [facility] [address] [id number] [place] [address]- 9362 Jun, [facility] [place] [facility] [address] [id number] [place] [address]- 8520 Jun, [facility] [place] [facility] [address] [id number] [place] [address]- 6266 Jun, [facility] [place] [facility] [address] [id number] [place] [address]- 2189 Jun, [facility] [place] [facility] [address] [id number] [place] [address]- 9646 Jun, [facility] [place] [facility] [address] [id number] [place] [address]- 7662 May, [facility] [place] [facility] [address] [id number] [place] [address]- 5902 May, [facility] [place] [facility] [address] [id number], [place] [address]- 1904 May, [facility] [place] [facility] [address] [id number], [place] [address]- 2537 May, [facility] [place] [facility] [address] [id number] [place] [address]- 2282 May, [facility] [place] [facility] [address] [id number] [place] [address]- 9432 May, [facility] [place] [facility] [address] [id number] [place] [address]- 1711 May, [facility] [place] [facility] [address] [id number] [place] [address]- 1661 May, [facility] [place] [facility] [address] [id number] [place] [address]- 9733 Apr, [facility] [place] [facility] [address] [id number] [place] [address]- 7361 Apr, [facility] [place] [facility] [address] [id number] [place] [address]- 2718 Apr, [facility] [place] [facility] [address] [id number] [place] [address]- 2321 Apr, [facility] [place] [facility] [address] [id number] [place] [address]- 8826 Apr, [facility] [place] [facility] [address] [id number] [place] [address]- 5912 Apr, [facility] [place] [facility] [address] [id number] [place] [address]- 6972 Apr, [facility] [place] [facility] [address] [id number] [place] [address]- 4976 Apr, [facility] [place] [facility] [address] [id number] [place] [address]- 7201 Mar, [facility] [place] [facility] [address] [id number] [place] [address]- 8936 Mar, [facility] [place] [facility] [address] [id number] [place] [address]- 4044 Mar, [facility] [place] [facility] [address] [id number] [place] [address]- 1074 Mar, [facility] [place] [facility] [address] [id number] [place] [address]- 2455 Mar, [facility] [place] [facility] [address] [id number] [place] [address]- 3951 Mar, [facility] [place] [facility] [address] [id number] [place] [address]- 2164 Mar, [facility] [place] [facility] [address] [id number] [place] [address]- 5075 Mar, [facility] [place] [facility] [address] [id number] [place] [address]- 0690 Mar, [facility] [place] [facility] [address] [id number] [place] [address]- 8733 Mar, [facility] [place] [facility] [address] [id number] [place] [address]- 9655 Feb, [facility] [place] [facility] [address] [id number] [place] [address]- 7893 Feb, [facility] [place] [facility] [address] [id number] [place] [address]- 0096 Jan, [facility] [place] [facility] [address] [id number] [place] [address]- 6126 Jan, [facility] [place] [facility] [address] [id number] [place] [address]- 3030 Jan, [facility] [place] [facility] [address] [id number] [place] [address]- 4266 Jan, [facility] [place] [facility] [address] [id number] [place] [address]- 0150 Dec, [facility] [place] [facility] [address] [id number] [place] [address]- 9663 Dec, [facility] [place] [facility] [address] [id number] [place] [address]- 4440 Dec, [facility] [place] [facility] [address] [id number] [place] [address]- 2488 Dec, [facility] [place] [facility] [address] [id number] [place] [address]- 8127 Dec, [facility] [place] [facility] [address] [id number] [place] [address]- 3221 Dec, [facility] [place] [facility] [address] [id number] [place] [address]- 3379 Nov, [facility] [place] [facility] [address] [id number] [place] [address]- 2068 Nov, [facility] [place] [facility] [address] [id number] [place] [address]- 1681 Oct, [facility] [place] [facility] [address] [id number] [place] [address]- 7584 Oct, [facility] [place] [facility] [address] [id number] [place] [address]- 6164 Oct, [facility] [place] [facility] [address] [id number] [place] [address]- 6907 Oct, [facility] [place] [facility] [address] [id number] [place] [address]- 5957 September, [facility] [place] [facility] [address] [id number] [place] [address]- 0494 September, [facility] [place] [facility] [address] [id number] [place] [address]- 2756 September, [facility] [place] [facility] [address] [id number] [place] [address]- 0728 September, [facility] [place] [facility] [address] [id number] [place] [address]- 1493 September, [facility] [place] [facility] [address] [id number] [place] [address]- 8498 September, [facility] [place] [facility] [address] [id number] [place] [address]- 6090 September, [facility] [place] [facility] [address] [id number] [place] [address]- 0893 September, [facility] [place] [facility] [address] [id number] [place] [address]- 6259 Aug, [facility] [place] [facility] [address] [id number] [place] [address]- 7801 Aug, [facility] [place] [facility] [address] [id number] [place] [address]- 9220 Aug, [facility] [address] [id number] [place] [address]- 1482 Aug, [facility] [place] [facility] [address] [id number] [place] [address]- 9274 Aug, [facility] [place] [facility] [address] [id number] [place] [address]- 1104 Aug, [facility] [place] [facility] [address] [id number] [place] [address]- 6796 Jul, [facility] [place] [facility] [address] [id number] [place] [address]- 5544 Jul, [facility] [place] [facility] [address] [facility] [id number] [place] [address]- 1583 Jul, [facility] [place] [facility] [address] [id number] [place] [address]- 9942 Jul, [facility] [address] [id number] [place] [address]- [address], [facility] [place] [facility] [address] [facility] [id number] [place] [address]- 7311 Jun, [facility] [place] [facility] [address] [facility] [id number] [place] [address]- 1478 Jun, [facility] [place] [facility] [address] [facility] [id number] [place] [address]- 0229 Jun, [facility] [place] [facility] [address] [id number] [place] [address]- 0264 Jun, [facility] [place] [facility] [address] [id number] [place] [address]- 4779 Jun, [facility] [place] [facility] [address] [id number] [place] [address]- 2587 May, [facility] [place] [facility] [address] [id number], [place] [address]- 3016 May, [facility] [address] [id number] [place] [address]- 7505 May, [facility] [address] [id number] [place] [address]- 2112 May, [facility] [address] [id number] [place] [address]- 9099 May, [facility] [address] [id number] [place] [address]- 4635 May, [facility] [address] [id number] [place] [address]- 0506 May, [facility] [address] [id number] [place] [address]- 5971 May, [facility] [address] [id number] [place] [address]- 0805 Apr, [facility] [address] [place] [id number] 16 Apr, 2013 [facility] [address] [id number] [place] [address]- 0183 Apr, [facility] [address] [id number], [place] [address]- 4714 Apr, [facility] [address] [id number], [place] [address]- 3145 Apr, [facility] [address] [id number], [place] [address]- 6986 Apr, [facility] [address] [id number], [place] [address]- 1743 05 Apr, 2013 [facility] [address] [id number], [place] [address]- 5526 05 Apr, 2013 [facility] [address] [id number], [place] [address]- 1379 04 Apr, 2013 [facility] [address] [id number], [place] [address]- 6007 Mar, [facility] [address] [id number], [place] [address]- 6929 Mar, [facility] [place] [facility] [address] [id number], [place] [address]- 4833 Mar, [facility] [address] [facility] [id number], [place] [address]- 5932 Mar, [facility] [place] [facility] [address] [id number], [place] [address]- 0926 Mar, [facility] [place] [facility] [address] [id number] [place] [address]- 5002 Feb, [facility] [place] [facility] [address] [id number], [place] [address]- 1635 Feb, [facility] [address] [facility] [id number], [place] [address]- 4874 Feb, [facility] [place] [facility] [address] [id number], [place] [address]- 4737 Feb, [facility] [place] [facility] [address] [facility] [id number], [place] [address]- 3075 Jan, [facility] [place] [facility] [address] [facility] [id number], [place] [address]- 5212 24 Jan, 2013 [facility] [place] [facility] [address] [id number], [place] [address]- 5398 Jan, [facility] [place] [facility] [address] [id number], [place] [address]- 5259 Dec, [facility] [place] [facility] [address] [id number], [place] [address]- 5850 Dec, [facility] [place] [facility] [address] [facility] [id number], [place] [address]- 1412 Dec, [facility] [address] [id number][place] [id number] Nov, [facility] [address] [facility] [id number][place] [id number] Oct, [facility] [address] [facility] [id number] [place] [address]- 2102 Oct, [facility] [address] [facility] [id number] [place] [address]- 8898 September, [facility] [address] [id number] [place] [address]- 8731 September, [facility] [address] [facility] [id number] [place] [address]- 8052 September, [facility] [address] [id number] [place] [address]- 3877 September, [facility] [address] [facility] [id number] [place] [address]- 6576 September, [facility] [address] [id number] [place] [address]- 2381 Jul, [facility] [address] [id number] [place] [address]- 4770 Jul, [facility] [address] [id number] [place] [address]- 5641 Jul, [facility] [address] [id number] [place] [address]- 1544 Jul, [facility] [address] [id number] [place] [address]- 5556 Jun, [facility] [place] [facility] [address] [facility] [id number], [place] [address]- 9949 Jun, [facility] [place] [facility] [address] [facility] [id number] [place] [address]- 9318 Jun, [facility] [place] [facility] [address] [facility] [id number], [place] [address]- 7746 Jun, [facility] [place] [facility] [address] [id number] [place] [address]- 3922 May, [facility] [place] [facility] [address] [id number] [place] [address]- 6178 Mar, [facility] [place] [facility] [address] [id number] [place] [address]- 4049 Mar, [facility] [place] [facility] [address] [id number] [place] [address]- 1948 Mar, [facility] [place] [facility] [address] [id number] [place] [address]- 6110 Mar, [facility] [address] [id number] [place] [address]- 3746 Mar, [facility] [place] [facility] [address] [id number] [place] [address]- 3712 Mar, [facility] [address] [facility] [id number] [place] [address]- 0409 Mar, [facility] [address] [id number], [place] [address]- 3520 Mar, [facility] [address] [facility] [id number] [place] [address]- 4913 Feb, [facility] [address] [facility] [id number], [place] [address]- 7072 Feb, [facility] [address] [facility] [id number], [place] [address]- 5864 Feb, [facility] [place] [facility] [address] [id number], [place] [address]- [address] Feb, [facility] [place] [facility] [address] [facility] [id number], [place] [address] Feb, [facility] [place] [facility] [address] [facility] [id number], [place] [address] Feb, [facility] [address] [facility] [id number], [place] [address] Feb, [facility] [address] [id number][place] [id number] Jan, [facility] [address] [id number] [place] [id number] Dec, [facility] [address] [facility] [id number] [place] [id number] Dec, [facility] [address] [id number] [place] [address] Nov, [facility] [place] [facility] [id number] [place] [address], [place] [address] Nov, [facility] [place] [facility] [address] [id number] [place] [address] Oct, [facility] [place] [facility] [address] [id number] [place] [address], [place] [address] Jul, [facility] [place] [facility] [address] [facility] [id number] [place] [address] Jul, [facility] [place] [facility] [address] [facility] [id number] [place] [address] May, [facility] [place] [facility] [address] [id number] [place] [address] May, [facility] [place] [facility] [address] [facility] [id number], [place] [address] Nov, [facility] [place] [facility] [address] [facility] [id number] [place] [address] Mar, [facility] [place] [facility] [address] [id number], [place] [address] Dec, [facility] [place] [facility] [address] [id number] [place] [address] Nov, [facility] [place] [facility] [address] [id number] [place] [address] Aug, [facility] [place] [facility] [address] [id number] [place] [address] Apr, [facility] [place] [facility] [address] [id number], [place] [address] Apr, [facility] [address] [facility] [id number], [place] [address] Mar, [facility] [address] [facility] [id number], [place] [address] Feb, [facility] [address] [facility] [id number], [place] [address] September, [facility] [address] [facility] [id number], [place] [address] Jun, [facility] [address] [facility] [id number], [place] [address] Mar, IMMUNIZATIONS No Known Immunizations SOCIAL HISTORY Never Assessed REASON FOR VISIT Refill request PLAN OF CARE VITAL SIGNS MEDICATIONS Medication Instructions Dosage Frequency Start Date End Date Duration Status Levothyroxine Sodium 25 MCG Orally Once a day 1 tablet on an empty stomach in the morning 24h 90 days Active RESULTS No Results PROCEDURES [...] hernia Hospitalization History Went by ambulance to [facility] as unresponsive 05/2015 Hospitalization History [facility] sent her [facility] for [facility] psych hold 05/2015
--- OUTSIDE RECORDS SUMMARY | 2018-03-15 11:22 | XMS REPORT ---
Author Author MALCOLM APONTE [facility] Address Unknown Care Team Providers Care Bookkeeping Service Sales Agent Name Role Phone MALCOLM APONTE Unavailable PROBLEMS Type Condition ICD9-CM Code AZE67-[id number] Code Onset Dates Condition Status SNOMED Code Assessment Dental examination Z01.20 19 Jan, 2016 Active 698923699 Problem Dehydration 276.51 Active 19431805 Problem Hypopotassemia 276.8 Active 26052851 Problem Bilateral low back pain with sciatica, sciatica laterality unspecified M54.40 Active 335031284 Problem Urinary tract infection, site not specified 599.0 Active 00697960 Problem Visual disturbance H53.9 Active 61411594 Problem Blood in stool 578.1 Active 003445670 Problem Borderline personality disorder F60.3 Active 72370162 Problem Bipolar disorder F31.9 Active 15907250 Problem Posttraumatic stress disorder F43.10 Active 36680388 Problem Essential (primary) hypertension I10 Active 50340229 Problem Social anxiety disorder F40.10 Active 86059546 Problem Irritable bowel syndrome 564.1 Active 18454683 Problem 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 Active 04667888 Problem Abdominal pain, generalized 789.07 Active 248554690 Problem Overdose T50.901A Active 59648285 Problem Chronic pain G89.29 Active 14511782 Problem Encounter for dental examination and cleaning without abnormal findings Z01.20 Active 997026278 Problem Bipolar 1 disorder F31.9 Active 605086188 Problem Essential hypertension, benign 401.1 Active 5828450 Problem Cervicalgia 723.1 Active 98739463 Problem Nausea alone 787.02 Active 612794074 Problem Esophageal reflux 530.81 Active 262236089 Problem Other dyspnea and respiratory abnormalities 786.09 Active 675702913 Problem Pelvic pain R10.2 Active 85581159 Problem Hypertrophy of breast 611.1 Active 785138431 Problem Screening mammogram for high-risk patient V76.11 Active 03736578 ALLERGIES Substance Reaction Event Type Date Status sulfa drugs Unknown Drug Allergy Jan, Active Codeine Sulfate Unknown Drug Allergy Jan, Active Aspirin Unknown Drug Allergy Jan, Active shell fish Unknown Non Drug Allergy Jan, Active IVP dye Unknown Non Drug Allergy Jan, Active tape Unknown Non Drug Allergy Jan, Active strawberries Unknown Non Drug Allergy Jan, Active tomatoes Unknown Non Drug Allergy Jan, Active SOCIAL HISTORY No smoking Hx information available PLAN OF CARE VITAL SIGNS Height 62 in 2016-02-02 Blood pressure systolic 118 mmHg 2016-02-02 Blood pressure diastolic 72 mmHg 2016-02-02 MEDICATIONS Medication Instructions Dosage Frequency Start Date End Date Duration Status Combivent Respimat 20-100 MCG/ACT Inhalation Four times a day 1 puff 6h Active Creon 28253 UNIT Orally 3 times a day 1 capsule before meals 8h Nov, 90 days Active Neurontin 300 MG Orally 3 times a day 1 capsule 8h September, Active Lamotrigine 150 MG Orally Once a day 1 tablet 24h Active Protonix 20 mg Orally Once a day 1 tablet 24h Oct, 90 days Active Cymbalta 60 mg Orally Once a day with Cymbalta 30mg. Total dose is 90mg 1 capsule Active Hyzaar 50-12.5 MG Orally Once a day 1 tablet 24h September, 90 days Active Vagifem 10 MCG 1 tablet Active Fish Oil 1000 MG Orally Once a day 1 capsule 24h Active Cymbalta 30 MG Orally Once a day with Cymbalta 60mg. Total dose 90mg 1 capsule along with 60mg Active Depo-Estradiol 5 MG/ML 1 ml Active Albuterol Sulfate (2.5 MG/3ML) 0.083% Inhalation every 4 hrs 3 ml 4h Active PrednisoLONE Sodium Phosphate 1 % Ophthalmic 4 times a day 1 drop into affected eye 6h Active Loratadine 10 mg Orally 2 times a day 1 tablet 12h September, 90 days Active Doxepin HCl 10 mg Orally Once at bedtime for sleep 1 capsule at bedtime September, Active Imitrex 50 mg Orally Once a day 1 tablet as needed at start of migraine 24h Active TENS Unit device Use as directed Active Carafate 1 GM Orally 4 times a day 1 tablet on an empty stomach 6h 90 days Active Dicyclomine HCl 20 mg Orally Four times a day 1 tablet 6h 30 days Active Lidoderm 5 % Externally Once a day 1 patch to intact skin remove after 12 hours 24h Active RESULTS No Results PROCEDURES Procedure Date Ordered Related Diagnosis Body Site AMALGAM-TWO SURFACES PRIMARY/PERM Feb 02, 2016 Billing Notes on claim Feb 02, 2016 IMMUNIZATIONS No Known Immunizations
--- OUTSIDE RECORDS SUMMARY | 2018-03-15 11:22 | XMS REPORT ---
Author Author CARYL FRANZ Organization [facility] Address [address] [place] [address] Care Team Providers Care Program Strategist Name Role Phone OSEILOWELLA Unavailable PROBLEMS Type Condition ICD9-CM Code ZEF22-KK Code Onset Dates Condition Status SNOMED Code Problem Acquired hypothyroidism E03.9 Active 123359538 Problem Morbid obesity, unspecified obesity type E66.01 Active 130952878 Problem Gastro-esophageal reflux disease without esophagitis K21.9 Active 422336429 Problem Blindness of right eye H54.40 Active 487282561 Problem Other chronic pain G89.29 Active 51502537 Problem Essential hypertension I10 Active 09384385 Problem Psoriasis L40.9 Active 2039154 Problem Lumbago with sciatica, left side M54.42 Active 656853156 Problem Relationship problem with family member Z63.8 Active 297216250 Problem Visual disturbance H53.9 Active 39934023 Problem Bipolar disorder F31.9 Active 05515027 Problem Pelvic pain R10.2 Active 99344633 Problem Bilateral low back pain with sciatica, sciatica laterality unspecified M54.40 Active 970782713 Problem Chronic pain G89.29 Active 78496198 Problem Overdose T50.901A Active 04660298 Problem Posttraumatic stress disorder F43.10 Active 99745862 Problem Social anxiety disorder F40.10 Active 42829953 Problem Borderline personality disorder F60.3 Active 16854178 Problem Obstructive sleep apnea G47.33 Active 48326257 ALLERGIES No Information ENCOUNTERS Encounter Location Date Diagnosis [facility] [id number] [address] Aug, [facility] [id number] [address] 0[address] Aug, [facility] [id number] [address] 9933 Jul, Bipolar disorder F31.9 ; Posttraumatic stress disorder F43.10 and Borderline personality disorder F60.3 [facility] [address] [place] [address] 66781- 6754 Jul, [facility] [id number] [place] [address] 28996- 0331 Jun, Bipolar disorder F31.9 ; Posttraumatic stress disorder F43.10 and Borderline personality disorder F60.3 [facility] [id number] [place] [address] 13548- 5028 Jun, Blindness of right eye H54.40 and Acquired hypothyroidism E03.9 [facility] [id number] [place] [address] 21967- 6341 Jun, [facility] [id number] [place] [address] 32758- 1491 May, Posttraumatic stress disorder F43.10 ; Social anxiety disorder F40.10 and Bipolar disorder F31.9 [facility] [address] [place] [address] 03677- 9355 May, Bipolar disorder F31.9 ; Posttraumatic stress disorder F43.10 and Borderline personality disorder F60.3 [facility] [address] [place] [address] 17243- 5550 May, [facility] [address] [place] [address] 59488- 1531 May, [facility] [address] [place] [address] 81086- 8491 Apr, Bipolar disorder F31.9 ; Posttraumatic stress disorder F43.10 and Borderline personality disorder F60.3 [id number] [id number] Apr, [facility] [id number] [place] [address] 27564- 7522 Apr, [facility] [address] [place] [address] 97159- 1807 Mar, Hydradenitis L73.2 [address] [place] [address] 52811- 5498 15 Mar, 2017 Lumbago with sciatica, left side M54.42 ; Other chronic pain G89.29 ; Morbid obesity, unspecified obesity type E66.01 ; Hydradenitis L73.2 and BMI 40.0-44.9, adult Z68.41 [address] [id number] [place] [address] 47179- 1730 Mar, Bipolar disorder F31.9 ; Posttraumatic stress disorder F43.10 and Borderline personality disorder F60.3 [place] [id number] [place] [address] 04391- 7407 Mar, Social anxiety disorder F40.10 ; Bipolar disorder F31.9 and Relationship problem with family member Z63.8 [id number] [place] [address] 71515- 4379 Mar, [address] [id number] [id number] Mar, Dental examination Z01.20 [address] [address] [address] [place] [address] 13798- 9049 Mar, [address] [address] [place] [address] 98297- 7655 Feb, Bipolar disorder F31.9 ; Posttraumatic stress disorder F43.10 and Borderline personality disorder F60.3 [facility] [address] [id number] [id number] Feb, [address] [address] [address] [place] [address] 17551- 7520 14 Jan, 2017 Bipolar disorder F31.9 ; Posttraumatic stress disorder F43.10 and Borderline personality disorder F60.3 [facility] [address] [id number] [id number] Jan, [address] [address] [place] [address] 57839- 9655 Jan, [facility] [address] [id number] [id number] Jan, [address] [address] [address] [place] [address] 12306- 6146 Dec, Bipolar disorder F31.9 ; Posttraumatic stress disorder F43.10 and Borderline personality disorder F60.3 [place] [address] [place] [address] 73044- 7603 Dec, [address] [address] [place] [address] 70978- 8644 Dec, [facility] [id number] [place] [address] [id number] Dec, [address] [address] [place] [address] 99219- 8156 Nov, Bipolar 1 disorder F31.9 ; Posttraumatic stress disorder F43.10 and Social anxiety disorder F40.10 [address] [address] [place] [address] 85350- 9082 Nov, Bipolar disorder F31.9 ; Posttraumatic stress disorder F43.10 and Borderline personality disorder F60.3 [address] [address] [address] [address] 2759 Nov, Morbid obesity, unspecified obesity type E66.01 [address] [address] [address], [place] [address] 0[address] Nov, [address] [id number][place] [id number] Oct, Encounter for dental examination and cleaning without abnormal findings Z01.20 [address] [id number] [place] [address] 21488- 4574 15 Oct, 2016 Morbid obesity, unspecified obesity type E66.01 and Acute seasonal allergic rhinitis due to pollen J30.1 [address] [address] [place] [address] 68397- 5071 Oct, Bipolar disorder F31.9 ; Posttraumatic stress disorder F43.10 and Borderline personality disorder F60.3 [address] [address] [address] 84083- 2960 September, Morbid obesity, unspecified obesity type E66.01 and Psoriasis L40.9 [place] [address] 33324- 5379 September, Bipolar disorder F31.9 ; Posttraumatic stress disorder F43.10 and Borderline personality disorder F60.3 [address] [address] 23295- 3996 September, Chronic pain G89.29 [place] [address] 70886- 3143 Aug, Other acute nonsuppurative otitis media of right ear H65.191 and Morbid obesity, unspecified obesity type E66.01 [address] [address] 07213- 1830 Aug, Bipolar 1 disorder F31.9 ; Posttraumatic stress disorder F43.10 and Social anxiety disorder F40.10 [place] [address] 82548- 0962 Aug, Bipolar disorder F31.9 ; Posttraumatic stress disorder F43.10 and Borderline personality disorder F60.3 [place] [id number] [place] [address] 44739- 0170 Jul, Morbid obesity due to excess calories E66.01 ; Gastro- esophageal reflux disease without esophagitis K21.9 and Chronic pain G89.29 [place] [id number] [place] [address] 19892- 9172 Jul, Morbid obesity due to excess calories E66.01 [place] [id number] [place] [address] 79229- 0991 Jul, [address] 03246- 6765 Jul, [facility] [address] [address] 7312 Jul, Morbid obesity due to excess calories E66.01 [facility] [address] [place] [address] 61290- 3818 Jul, Bipolar disorder F31.9 ; Posttraumatic stress disorder F43.10 and Borderline personality disorder F60.3 [facility] [id number] [place] [address] 63020- 6616 16 Jun, 2016 [facility] [id number] [place] [address] 24441- 9510 15 Jun, 2016 Morbid obesity due to excess calories E66.01 [facility] [id number] [place] [address] 16379- 1366 Jun, [facility] [id number] [place] [address] 58110- 1084 09 Jun, 2016 Morbid obesity, unspecified obesity type E66.01 [facility] [id number] [place] [address] 96342- 8957 03 Jun, 2016 Bipolar disorder F31.9 ; Posttraumatic stress disorder F43.10 and Borderline personality disorder F60.3 [facility] [address] [place] [address] 73455- 1866 Jun, [facility] [address] [place] [address] 28215 2546 Jun, [facility] [id number] [place] [address] 68188- 2544 02 Jun, 2016 Acquired hypothyroidism E03.9 and Morbid obesity due to excess calories E66.01 [facility] [address] [place] [address] 27646- 6574 May, Bipolar disorder F31.9 ; Posttraumatic stress disorder F43.10 and Borderline personality disorder F60.3 [facility] [address] [place] [address] 75621- 9330 13 Apr, 2016 Bipolar 1 disorder F31.9 ; Posttraumatic stress disorder F43.10 and Social anxiety disorder F40.[address] [id number][place] [id number] 12 Apr, 2016 Encounter for dental examination Z01.20 [facility] [address] [place] [address] 47093- 3706 08 Apr, 2016 [facility] [id number] [place] [address] 599637- 9966 08 Apr, 2016 Acquired hypothyroidism E03.9 [facility] [id number] [place] [address] 932100- 8553 Apr, Acquired hypothyroidism E03.9 [facility] [id number] [place] [address] 92463- 8838 07 Apr, 2016 Bipolar disorder F31.9 ; Posttraumatic stress disorder F43.10 and Borderline personality disorder F60.3 [facility] [address] [place] [address] 70101- 1183 06 Apr, 2016 Acquired hypothyroidism E03.[address] [id number][place] [id number] 23 Mar, 2016 Encounter for dental examination and cleaning without abnormal findings Z01.20 [facility] [address] [place] [address] 89060- 9139 08 Mar, 2016 [facility] [id number] [place] [address] 78487- 3824 08 Mar, 2016 Bipolar disorder F31.9 ; Posttraumatic stress disorder F43.10 and Borderline personality disorder F60.3 [facility] [id number] [place] [address] 05451- 6412 Mar, Essential (primary) hypertension I10 [facility] [id number] [place] [address] 78806- 0380 Feb, [facility] [address] 06668- 3577 Feb, [address] [place] [address] [place] [address] 77959- 5429 11 Feb, 2016 Pelvic pain R10.2 ; Lipid screening Z13.220 ; Fatigue, unspecified type R53.83 and Weight gain R63.5 [place] [address] [place] [address] 56687- 1931 11 Feb, 2016 Bipolar disorder F31.9 ; Posttraumatic stress disorder F43.10 and Borderline personality disorder F60.3 [place] [id number] [place] [address] 41135- 8956 07 Feb, 2016 [address] [address] 03340- 7265 05 Feb, 2016 [place] [id number] [place] [address] 77190- 0561 30 Jan, 2016 Obstructive sleep apnea syndrome G47.33 [id number] [place] [address] 30337- 9942 26 Jan, [address] [id number][place] [id number] 19 Jan, 2016 Dental examination Z01.20 [place] [id number] [place] [address] 10642- 3761 13 Jan, 2016 Bipolar 1 disorder F31.9 ; Posttraumatic stress disorder F43.10 and Social anxiety disorder F40.10 [place] [id number] [place] [address] 61482- 4784 13 Jan, 2016 Bipolar disorder F31.9 ; Posttraumatic stress disorder F43.10 and Borderline personality disorder F60.3 [place] [id number] [place] [address] 65116- 4684 13 Jan, 2016 Sciatica of left side M54.32 [place] [address] [place] [address] 92978- 6171 06 Jan, 2016 [place] [id number] [place] [address] 93845- 0176 Dec, [facility] [address] [place] [address] 75213- 9139 Dec, [facility] [id number] [place] [address] 45707- 4816 Dec, Bipolar disorder F31.9 ; Posttraumatic stress disorder F43.10 and Borderline personality disorder F60.3 [facility] [id number] [place] [address] 32355- 8725 Nov, [facility] [id number] [place] [address] 73391- 0484 Nov, Insomnia, unspecified type G47.00 [facility] [id number] [place] [address] 13569- 4996 Nov, Bipolar disorder F31.9 ; Posttraumatic stress disorder F43.10 and Borderline personality disorder F60.3 [facility] [id number] [place] [address] 35822- 0053 Nov, [facility] [id number] [place] [address] 87880- 7033 Nov, [facility] [id number] [place] [address] 63554- 9054 Oct, Bipolar disorder F31.9 ; Posttraumatic stress disorder F43.10 and Borderline personality disorder F60.3 [facility] [id number] [place] [address] 72760- 2925 Oct, [facility] [id number] [place] [address] 52241- 1161 Oct, Essential (primary) hypertension I10 [facility] [id number] [place] [address] 35615- 9860 September, Bipolar 1 disorder F31.9 ; Posttraumatic stress disorder F43.10 and Social anxiety disorder F40.10 [facility] [address] [place] [address] 95882- 8312 September, Bipolar disorder F31.9 ; Posttraumatic stress disorder F43.10 and Borderline personality disorder F60.3 [facility] [address] [id number] [id number] September, Encounter for dental examination and cleaning without abnormal findings Z01.20 [facility] [address] [place] [address] 35759- 3980 September, [facility] [id number] [place] [address] 19584- 8159 September, [facility] [address] [place] [address] 62820- 3098 Aug, [facility] [id number] [place] [address] 02062- 4169 Aug, Bipolar disorder F31.9 ; Posttraumatic stress disorder F43.10 and Borderline personality disorder F60.3 [facility] [id number] [place] [address] 23274- 9644 Aug, [facility] [address] [place] [address] 22592- 5008 Aug, [facility] [id number] [place] [address] 11890- 9716 Aug, [facility] [address] [place] [address] [id number] Jul, Acute nasopharyngitis [common cold] J00 and Other viral agents as the cause of diseases classified elsewhere B97.89 [facility] [address] [place] [address] 10649- 4989 Jul, Chronic pain G89.29 and Allergic rhinitis J30.9 [facility] [id number] [place] [address] 92544- 1176 Jul, Bipolar 1 disorder F31.9 ; Posttraumatic stress disorder F43.10 and Social anxiety disorder F40.10 [facility] [address] [place] [address] 86119- 5002 Jul, Bipolar 1 disorder F31.9 [facility] [address], [place] [address]- 2042 16 Jul, 2015 Bipolar disorder F31.9 ; Posttraumatic stress disorder F43.10 and Borderline personality disorder F60.3 [facility] [address], [place] [address] 2546 14 Jul, 2015 [facility] [id number] [place] [address] 93435 2546 14 Jul, 2015 [facility] [id number] [place] [address] 10081 2546 11 Jul, 2015 [facility] [id number] [place] [address] 19472- 1266 10 Jul, 2015 Anxiety F41.9 [facility] [address] [place] [address] 49146- 4987 10 Jul, 2015 Chronic pain G89.29 and Encounter for therapeutic drug level monitoring Z51.81 [facility] [address] [place] [address] 37258 2542 09 Jul, 2015 Chronic pain G89.29 and Encounter for therapeutic drug level monitoring Z51.81 [facility] [address] [place] [address] 93529- 0174 08 Jul, 2015 [facility] [address] [address]- 0399 19 Jun, 2015 [facility] [address] [place] [address] 47568- 2596 19 Jun, 2015 [facility] [address] [address]- 2895 15 Jun, 2015 [facility] [id number] [place] [address] 18640- 9706 15 Jun, 2015 [facility] [address], [place] [address]- 6993 11 Jun, 2015 High risk medication use V58.69 [facility] [id number] [place] [address] 09927- 7770 Jun, [facility] [id number] [place] [address] 52833- 2647 Jun, Bipolar 1 disorder F31.9 ; Overdose T50.901A and Chronic pain G89.29 [facility] [id number] [place] [address] 10514- 7118 Jun, Bipolar disorder F31.9 ; Posttraumatic stress disorder F43.10 and Borderline personality disorder F60.3 [facility] [id number] [place] [address] 15226- 2192 Jun, [facility] [address] 03119- 7517 Jun, [facility] [id number] [place] [address] 96044- 6981 Jun, Keloid L91.0 [facility] [id number] [place] [address] 04635- 7584 Jun, [facility] [id number] [place] [address] 72147- 6548 May, [facility] [id number] [place] [address] 07858- 6516 May, [facility] [id number] [place] [address] 88755- 9208 May, Pelvic pain R10.2 [facility] [id number] [place] [address] 88493- 4344 May, [facility] [id number] [place] [address] 96169- 2588 May, Pain of left thumb M79.645 ; Incisional pain R20.8 ; Pelvic pain R10.2 and Essential hypertension I10 [facility] [id number] [place] [address] 56012- 1006 May, [facility] [address] [facility] [id number] [address]- 4133 May, [facility] [address] [place] [address] [address] [id number][place] [id number] May, Dental examination Z01.20 and Necrosis of pulp K04.1 [facility] [address] [facility] [id number] [address]- 2038 Apr, [facility] [address] [facility] [id number], [place] [address]- 7479 Apr, [facility] [address] [facility] [id number][place] [address]- 0611 Apr, [facility] [address] [facility] [id number] [address]- 1138 Apr, [facility] [address] [facility] [id number][place] [address]- 6478 Apr, [facility] [address] [facility] [id number] [address]- 0543 Apr, [facility] [address] [facility] [id number] [address]- 0726 Apr, [facility] [address] [facility] [id number] [address] Apr, [facility] [address] [facility] [id number] [address] Mar, [facility] [place] [facility] [address] [facility] [id number] [address] Mar, [facility] [place] [facility] [address] [facility] [id number] [address] Mar, [facility] [place] [facility] [address] [facility] [id number] [address] Mar, [facility] [place] [facility] [address] [facility] [id number] [address] Feb, [facility] [place] [facility] [id number] [address] Feb, [facility] [id number] [address] Feb, [facility] [id number] [address] Feb, [facility] [id number] [place] [address] Feb, [facility] [id number] [place] [address] Feb, [facility] [address] [id number] [place] [address] Feb, [facility] [id number] [place] [address] Feb, Dermatofibroma of left lower leg D23.72 [facility] [id number] [place] [address] Feb, Hematochezia 578.1 ; Low back pain M54.5 ; High risk medication use V58.69 ; Cervicalgia M54.2 and Anxiety F41.[address] [id number] [id number] Feb, Dental examination Z01.20 ; Pulpitis K04.0 and Dental caries, unspecified K02.[address] [id number][place] [id number] Feb, Dental examination Z01.20 [facility] [id number] [address] Jan, [facility] [id number] [address] Jan, [facility] [id number] [address] Jan, [facility] [id number] [address] Jan, [facility] [address] [id number] [place] [address] Dec, [facility] [address] [id number] [address] Dec, [facility] [address] [id number] [place] [address] Dec, [facility] [address] [id number] [address]143 Dec, [facility] [address] [id number] [place] [address] 9[address] Dec, [facility] [address] [id number] [address] Dec, [facility] [id number] [address] Dec, [facility] [address] [id number] [address] Dec, [facility] [id number] [id number] Nov, Encounter for removal of sutures V58.32 [facility] [address] [id number] [address] Nov, [facility] [address] [id number] [address] Nov, [facility] [address] [id number] [address] 4[address] Nov, [facility] [address] [facility] [id number][place] [address] 8175 Nov, [facility] [address] [id number] [address] 7087 Nov, [facility] [address] [facility] [id number] [address] Nov, [facility] [id number], [place] [address] 76[address] Nov, [facility] [id number] [address] 38[address] Nov, Dermatofibroma 216.9 [facility] [id number] [address] Nov, [facility] [id number] [address] 47[address] Nov, [facility] [id number] [address] 4954 Oct, [facility] [id number] [address] 69[address] Oct, Hematochezia 578.1 ; Abscess 682.9 ; GERD (gastroesophageal reflux disease) 530.81 ; Visual disturbance of one eye 368.9 and High risk medication use V58.69 [facility] [id number] [address] Oct, [facility] [id number] [address] 8061 Oct, [facility] [id number] [address]- 5014 Oct, [facility] [id number] [address] 4512 September, [facility] [address] [id number] [address] 3903 September, [facility] [address] [id number] [address]- 3512 September, [facility] [id number] [address]- 6866 September, [facility] [address] [id number] [address]- 1329 September, [facility] [address] [facility] [id number] [place] [address] 6428 September, Colon cancer screening V76.51 [facility] [place] [facility] [address] [id number] [place] [address]- 3076 September, [facility] [place] [facility] [address] [facility] [id number] [place] [address]- 7908 Aug, [facility] [place] [facility] [address] [facility] [id number] [place] [address]- 8154 Aug, [facility] [place] [facility] [address] [facility] [id number] [place] [address]- 0247 Jul, [facility] [place] [facility] [address] [id number] [place] [address]- 9447 Jul, [facility] [place] [facility] [address] [id number] [place] [address]- 9860 Jul, [facility] [place] [facility] [address] [facility] [id number] [address]- 0418 Jul, [facility] [place] [facility] [address] [facility] [id number] [place] [address]- 4037 Jun, [facility] [place] [facility] [address] [id number] [address]- 5[address] Jun, [facility] [place] [facility] [address] [id number] [place] [address]- 1391 Jun, [facility] [place] [facility] [address] [facility] [id number][place] [address]- 6406 Jun, [facility] [place] [facility] [address] [facility] [id number] [place] [address]- 1630 Jun, [facility] [place] [facility] [address] [facility] [id number][place] [address]- 5896 Jun, [facility] [place] [facility] [address] [facility] [id number] [place] [address]- 7701 May, [facility] [place] [facility] [address] [facility] [id number] [place] [address]- 8127 May, [facility] [address] [id number] [place] [address]- 8417 May, [facility] [place] [facility] [address] [id number] [place] [address]- 2114 May, [facility] [place] [facility] [address] [id number] [place] [address]- 8048 May, [facility] [place] [facility] [address] [id number] [place] [address]- 9897 May, [facility] [place] [facility] [address] [id number] [place] [address]- 8390 May, [facility] [place] [facility] [address] [id number] [place] [address]- 8210 May, [facility] [address] [id number] [place] [address]- 3932 Apr, [facility] [place] [facility] [address] [id number] [place] [address]- 5324 Apr, [facility] [place] [facility] [address] [id number] [place] [address]- 4648 Apr, [facility] [place] [facility] [address] [id number] [place] [address]- 4468 Apr, [facility] [place] [facility] [address] [id number] [place] [address]- 6907 Apr, [facility] [place] [facility] [address] [id number] [place] [address]- 2720 Apr, [facility] [place] [facility] [address] [id number] [place] [address]- 8463 Apr, [facility] [place] [facility] [address] [id number] [place] 1879 Apr, [facility] [place] [facility] [address] [id number] [place] [address]- 2202 Mar, [facility] [place] [facility] [address] [id number] [place] [address]- 1932 Mar, [facility] [place] [facility] [address] [id number] [place] [address]- 3085 Mar, [facility] [place] [facility] [address] [id number] [place] [address]- 5679 Mar, [facility] [place] [facility] [address] [id number] [place] [address]- 2745 Mar, [facility] [place] [facility] [address] [id number] [place] [address]- 1462 Mar, [facility] [place] [facility] [address] [id number] [place] [address]- 4915 Mar, [facility] [place] [facility] [address] [id number] [place] [address]- 7276 Mar, [facility] [place] [facility] [address] [id number] [place] [address]- 1912 Mar, [facility] [place] [facility] [address] [id number] [place] [address]- 1561 Mar, [facility] [place] [facility] [address] [id number] [place] [address]- 3710 Feb, [facility] [place] [facility] [address] [id number] [place] [address]- 6699 Feb, [facility] [place] [facility] [address] [id number] [place] [address]- 8849 Jan, [facility] [place] [facility] [address] [id number] [place] [address]- 8268 25 Jan, 2014 [facility] [place] [facility] [address] [id number] [place] [address]- 1856 18 Jan, 2014 [facility] [place] [facility] [address] [id number] [place] [address]- 6185 18 Jan, 2014 [facility] [place] [facility] [address] [id number] [place] [address]- 9762 Dec, [facility] [place] [facility] [address] [id number] [place] [address]- 4785 Dec, [facility] [place] [facility] [address] [id number] [place] [address]- 7476 Dec, [facility] [place] [facility] [address] [id number] [place] [address]- 1706 Dec, [facility] [place] [facility] [address] [id number] [place] [address]- 8172 Dec, [facility] [place] [facility] [address] [id number] [place] [address]- 2642 Dec, [facility] [place] [facility] [address] [id number] [place] [address]- 8980 Nov, [facility] [place] [facility] [address] [id number] [place] [address]- 4873 Nov, [facility] [place] [facility] [address] [id number] [place] [address]- 7908 Oct, [facility] [place] [facility] [address] [id number] [place] [address]- 0355 Oct, [facility] [place] [facility] [address] [id number] [place] [address]- 9173 Oct, [facility] [place] [facility] [address] [id number] [place] [address]- 4456 Oct, [facility] [place] [facility] [address] [id number] [place] [address]- 2789 September, [facility] [place] [facility] [address] [id number] [place] [address]- 6032 September, [facility] [place] [facility] [address] [id number] [place] [address]- 4284 September, [facility] [place] [facility] [address] [id number] [place] [address]- 8779 September, [facility] [place] [facility] [address] [id number] [place] [address]- 2811 September, [facility] [address] [id number] [place] [address]- 8879 September, [facility] [address] [id number] [place] [address]- 6853 September, [facility] [address] [id number] [place] [address]- 2715 September, [facility] [address] [id number] [place] [address]- 1957 Aug, [facility] [address] [id number] [place] [address]- 3938 Aug, [facility] [address] [id number] [place] [address]- 9949 Aug, [facility] [address] [id number] [place] [address]- 1388 Aug, [facility] [address] [id number] [place] [address]- 3170 Aug, [facility] [address] [id number] [place] [address]- 6879 Aug, [facility] [address] [id number] [place] [address]- 9705 Jul, [facility] [place] [facility] [address] [id number] [place] [address]- 9702 Jul, [facility] [address] [id number] [place] [address]- 3215 Jul, [facility] [place] [facility] [address] [id number] [place] [address]- 2966 Jul, [facility] [place] [facility] [address] [id number] [place] [address]- 0001 Jun, [facility] [place] [facility] [address] [id number] [place] [address]29 Jun, [facility] [address] [id number] [place] [address]- 4914 Jun, [facility] [address] [id number] [place] [address]- 7753 Jun, [facility] [address] [id number] [place] [address]- 6771 Jun, [facility] [address] [id number] [place] [address]- 3340 Jun, [facility] [address] [id number] [place] [address]- 9328 May, [facility] [address] [id number] [place] [address]- 3836 May, [facility] [address] [id number] [place] [address]- 7702 May, [facility] [address] [id number] [place] [address]- 3453 May, [facility] [address] [id number] [place] [address]- 2170 May, [facility] [address] [id number] [place] [address]- 7719 May, [facility] [address] [id number] [address]- 4749 May, [facility] [address] [id number], [place] [address]- 1413 May, [facility] [address] [facility] [id number] [place] [address]- 8193 Apr, [facility] [address] [place] [id number] Apr, [facility] [address] [id number] [place] [address]- 6912 Apr, [facility] [address] [id number], [place] [address]- 0119 16 Apr, 2013 [facility] [address] [id number] [place] [address]- 8502 Apr, [facility] [place] [facility] [address] [id number] 8588 Apr, [facility] [place] [facility] [address] [id number] [place] [address]- 7075 05 Apr, 2013 [facility] [place] [facility] [address] [id number], [place] [address]- 1793 05 Apr, 2013 [facility] [place] [facility] [address] [id number] [place] [address]- 0501 Apr, [facility] [place] [facility] [address] [id number], [place] [address]- 2197 Mar, [facility] [place] [facility] [address] [id number], [place] [address]- 9392 Mar, [facility] [place] [facility] [address] [id number], [place] [address]- 3299 Mar, [facility] [place] [facility] [address] [id number] [address]- 7917 Mar, [facility] [place] [facility] [address] [id number] [address]- 0290 Mar, [facility] [place] [facility] [address] [id number] [address]- 6138 Feb, [facility] [place] [facility] [address] [id number] [address]- 3041 25 Feb, 2013 [facility] [place] [facility] [address] [id number], [place] [address]- 8589 14 Feb, 2013 [facility] [place] [facility] [address] [id number] [address]- 6188 14 Feb, 2013 [facility] [place] [facility] [address] [id number] [address]- 7467 25 Jan, 2013 [facility] [place] [facility] [address] [id number] [place] [address]- 7266 Jan, [facility] [address] [id number] [place] [address]- 4086 Jan, [facility] [address] [id number] [place] [address]- 2546 Dec, [facility] [address] [id number] [place] [address] 2546 Dec, [facility] [address] [id number] [place] [address]- 2546 Dec, [facility] [address] [facility] [address] [id number] [place] [id number] Nov, [facility] [address] [facility] [id number] [address] Oct, [facility] [address] [id number] [address]- 4486 Oct, [facility] [address] [id number] [address]- 2546 September, [facility] [address] [id number] [place] [address]- 8066 September, [facility] [address] [facility] [id number], [place] [address]- 2546 September, [facility] [address] [id number] [place] [address]- 2546 September, [facility] [address] [id number] [address]- 2546 September, [facility] [address] [id number] [place] [address]- 0366 Jul, [facility] [place] [facility] [address] [id number] [place] [address]- 2546 Jul, [facility] [address] [id number] [place] [address]- 2546 Jul, [facility] [place] [facility] [address] [id number] [place] [address]- 7631 Jul, [facility] [place] [facility] [address] [id number] [place] [address]- 1550 Jun, [facility] [place] [facility] [address] [id number] [place] [address]- 2546 Jun, [facility] [place] [facility] [address] [id number] [place] [address]- 6817 Jun, [facility] [place] [facility] [address] [id number] [place] [address]- 4864 Jun, [facility] [place] [facility] [address] [id number] [place] [address]- 8949 May, [facility] [place] [facility] [address] [facility] [id number] [place] [address]- 6851 Mar, [facility] [place] [facility] [address] [id number] [place] [address]- 5341 Mar, [facility] [place] [facility] [address] [id number] [place] [address]- 5674 Mar, [facility] [place] [facility] [address] [facility] [id number] [place] [address]- 1127 Mar, [facility] [place] [facility] [address] [facility] [id number] [place] [address]- 1936 Mar, [facility] [place] [facility] [address] [id number] [address]- 3272 Mar, [facility] [place] [facility] [address] [id number] [place] [address]- 9232 Mar, [facility] [place] [facility] [address] [id number] [place] [address]- 1325 Mar, [facility] [place] [facility] [address] [id number] [place] [address]- 0954 Feb, [facility] [place] [facility] [address] [id number], [place] [address]- 2546 Feb, [facility] [place] [facility] [address] [id number] [place] [address]- 4967 Feb, [facility] [place] [facility] [address] [facility] [id number] [address]- 0976 Feb, [facility] [place] [facility] [address] [facility] [id number], [place] [address]- 9356 Feb, [facility] [place] [facility] [address] [id number][place] [address]- 5306 Feb, [facility] [place] [facility] [address] [id number] [place] [address]- 7066 Feb, [facility] [address] [id number][place] [address] Jan, [facility] [address] [id number][place] [address] Dec, [facility] [address] [facility] [id number][place] [address] Dec, [facility] [place] [facility] [address] [facility] [id number], [place] [address]- 8906 Nov, [facility] [place] [facility] [address] [facility] [id number], [place] [address]- 0176 Nov, [facility] [place] [facility] [address] [facility] [id number] [address]- 6487 Oct, [facility] [place] [facility] [address] [facility] [id number] [address] 15 Jul, 2011 [facility] [facility] [address] [id number] [address] Jul, [facility] [place] [facility] [address] [facility] [id number] [place] [address] May, [facility] [place] [facility] [address] [facility] [id number] [address] 24 May, 2011 [facility] [facility] [address] [facility] [id number][place] [address] Nov, [facility] [address] [id number] [address] Mar, [facility] [id number] [address] Dec, [facility] [id number] [address] Nov, [facility] [id number] [address] Aug, [facility] [id number] [address] Apr, [facility] [id number] [place] [address] Apr, [facility] [id number] [address] Mar, [facility] [id number] [address] Feb, [facility] [id number] [address] September, [facility] [id number] [address] Jun, [facility] [id number] [address] Mar, IMMUNIZATIONS No Known Immunizations SOCIAL HISTORY [...] hernia Hospitalization History Went by ambulance to [place] as unresponsive 05/2015 Hospitalization History [place] sent her to [facility] for a psych hold 05/2015
--- OUTSIDE RECORDS SUMMARY | 2018-03-15 11:22 | XMS REPORT ---
Author Author HERBERT MCGOWAN Organization [employer] Address Unknown Phone Unavailable Care Team Providers Care Bird Trapper Name Role Phone HERBERT MCGOWAN CP Unavailable [...] Instructions Start Date End Date Status Dosage Hydrocodone-Acetaminophen [facility] [address]-98 7.5-325 MG 2 times a day July 29, 2014 1 tablet by Oral route PRN Results No Known Results Summary Purpose [employer] Submission
[2018-03-15 11:23] LABS: PROTHROMBIN TIME PATIENT 12.9 SEC (12.2-14.7)
--- OUTSIDE RECORDS SUMMARY | 2018-03-15 11:23 | XMS REPORT ---
Author Author SAMI SUAREZ Organization [facility] Address [address] [place] [address] Care Team Providers Care Pharmacy Technician Instructor Name Role Phone SAMI SUAREZ Unavailable PROBLEMS Type Condition ICD9-CM Code GZE65-UX Code Onset Dates Condition Status SNOMED Code Problem Chronic pain G89.29 Active 27038319 Problem Social anxiety disorder F40.10 Active 55566663 Problem Encounter for dental examination and cleaning without abnormal findings Z01.20 Active 609096894 Problem Essential hypertension I10 Active 12979142 Problem Psoriasis L40.9 Active 7561205 Problem Acquired hypothyroidism E03.9 Active 222457827 Problem Obstructive sleep apnea G47.33 Active 73422996 Problem Morbid obesity, unspecified obesity type E66.01 Active 870216089 Problem Gastro-esophageal reflux disease without esophagitis K21.9 Active 090403433 Problem Pelvic pain R10.2 Active 98390595 Problem Bilateral low back pain with sciatica, sciatica laterality unspecified M54.40 Active 512294902 Problem Borderline personality disorder F60.3 Active 41623964 Problem Bipolar disorder F31.9 Active 72502368 Problem Visual disturbance H53.9 Active 43561563 Problem Overdose T50.901A Active 76669576 Problem Posttraumatic stress disorder F43.10 Active 64197441 Problem Bipolar 1 disorder F31.9 Active 490123142 ALLERGIES Unknown Allergies SOCIAL HISTORY No smoking Hx information available PLAN OF CARE Activity Details Follow Up 4 Weeks Reason:BH F/U VITAL SIGNS MEDICATIONS Unknown Medications RESULTS No Results PROCEDURES Procedure Date Ordered Related Diagnosis Body Site Psychotherapy, patient &/family, 45 minutes, established patient Jun 18, 2016 IMMUNIZATIONS No Known Immunizations
--- OUTSIDE RECORDS SUMMARY | 2018-03-15 11:23 | XMS REPORT ---
Author Author HERBERT MCGOWAN Organization [facility] Address [address] [place] [address] Care Team Providers Care Flight Line Mechanic Name Role Phone HERBERT MCGOWAN Unavailable PROBLEMS Type Condition ICD9-CM Code QUA31-DT Code Onset Dates Condition Status SNOMED Code Problem Acquired hypothyroidism E03.9 Active 705541674 Problem Morbid obesity, unspecified obesity type E66.01 Active 742738537 Problem Gastro-esophageal reflux disease without esophagitis K21.9 Active 417828095 Problem Blindness of right eye H54.40 Active 086889283 Problem Other chronic pain G89.29 Active 81314106 Problem Essential hypertension I10 Active 89770876 Problem Psoriasis L40.9 Active 6305261 Problem Lumbago with sciatica, left side M54.42 Active 422769493 Problem Relationship problem with family member Z63.8 Active 105134860 Problem Visual disturbance H53.9 Active 74235952 Problem Bipolar disorder F31.9 Active 30360323 Problem Pelvic pain R10.2 Active 06101307 Problem Bilateral low back pain with sciatica, sciatica laterality unspecified M54.40 Active 659710031 Problem Chronic pain G89.29 Active 72107469 Problem Overdose T50.901A Active 17521133 Problem Posttraumatic stress disorder F43.10 Active 74332748 Problem Social anxiety disorder F40.10 Active 68275846 Problem Borderline personality disorder F60.3 Active 24398833 Problem Obstructive sleep apnea G47.33 Active 05121179 ALLERGIES No Information ENCOUNTERS Encounter Location Date Diagnosis [facility] [id number] [address] Aug, [facility] [address] [address] Aug, [facility] [id number] [address] 6[address] Jul, Bipolar disorder F31.9 ; Posttraumatic stress disorder F43.10 and Borderline personality disorder F60.3 [facility] [address] [place] [address] 68695- 0563 Jul, [facility] [address] [place] [address] 76828- 1623 Jun, Bipolar disorder F31.9 ; Posttraumatic stress disorder F43.10 and Borderline personality disorder F60.3 [facility] [address] [place] [address] 02108- 1342 Jun, Blindness of right eye H54.40 and Acquired hypothyroidism E03.9 [facility] [id number] [place] [address] 91570- 4003 Jun, [facility] [address] [place] [address] 32395- 1247 May, Posttraumatic stress disorder F43.10 ; Social anxiety disorder F40.10 and Bipolar disorder F31.9 [facility] [address] [place] [address] 93163- 4176 May, Bipolar disorder F31.9 ; Posttraumatic stress disorder F43.10 and Borderline personality disorder F60.3 [facility] [address] [address] 05[address] May, [facility] [address] [place] [address] 84325- 3466 May, [facility] [address] [place] [address] 31554- 7855 Apr, Bipolar disorder F31.9 ; Posttraumatic stress disorder F43.10 and Borderline personality disorder F60.3 [place] [address] [id number] [id number] Apr, [facility] [address] [place] [address] 53920- 9697 Apr, [facility] [address] [place] [address] 32232- 0314 Mar, Hydradenitis L73.2 [address] [address] [place] [address] 30978- 4127 15 Mar, 2017 Lumbago with sciatica, left side M54.42 ; Other chronic pain G89.29 ; Morbid obesity, unspecified obesity type E66.01 ; Hydradenitis L73.2 and BMI 40.0-44.9, adult Z68.41 [place] [id number] [place] [address] 23983- 0446 Mar, Bipolar disorder F31.9 ; Posttraumatic stress disorder F43.10 and Borderline personality disorder F60.3 [id number] [place] [address] 10032- 8346 Mar, Social anxiety disorder F40.10 ; Bipolar disorder F31.9 and Relationship problem with family member Z63.8 [id number] [place] [address] 54471- 1538 Mar, [address] [id number] [id number] Mar, Dental examination Z01.20 [address] [place] [address] 48298- 2836 Mar, [address] [address] 7553 Feb, Bipolar disorder F31.9 ; Posttraumatic stress disorder F43.10 and Borderline personality disorder F60.3 [facility] [address] [id number] [address] Feb, [place] [address] [place] [address] 35917- 8675 14 Jan, 2017 Bipolar disorder F31.9 ; Posttraumatic stress disorder F43.10 and Borderline personality disorder F60.3 [facility] [address] [id number] [id number] Jan, [place] [id number] [address] 08 Jan, 2017 [facility] [address] [id number] [address] Jan, [facility] [address] [place] [address] 98809- 0744 Dec, Bipolar disorder F31.9 ; Posttraumatic stress disorder F43.10 and Borderline personality disorder F60.3 [facility] [address] [place] [address] 08280- 4348 Dec, [facility] [address] [place] [address] 63159- 8643 Dec, [facility] [id number] [address] Dec, [place] [address] [place] [address] 60317- 6072 Nov, Bipolar 1 disorder F31.9 ; Posttraumatic stress disorder F43.10 and Social anxiety disorder F40.10 [place] [address] [address] 5750 Nov, Bipolar disorder F31.9 ; Posttraumatic stress disorder F43.10 and Borderline personality disorder F60.3 [place] [address] [address]- 7324 Nov, Morbid obesity, unspecified obesity type E66.01 [place] [address] [address] 4331 Nov, [facility] [address] [facility] [id number] [address] Oct, Encounter for dental examination and cleaning without abnormal findings Z01.20 [place] [address] [place] [address] 71770- 3827 Oct, Morbid obesity, unspecified obesity type E66.01 and Acute seasonal allergic rhinitis due to pollen J30.1 [place] [address] [address] 3419 Oct, Bipolar disorder F31.9 ; Posttraumatic stress disorder F43.10 and Borderline personality disorder F60.3 [place] [id number] [place] [address] 80905- 3012 September, Morbid obesity, unspecified obesity type E66.01 and Psoriasis L40.9 [place] [id number] [place] [address] 44852- 2851 September, Bipolar disorder F31.9 ; Posttraumatic stress disorder F43.10 and Borderline personality disorder F60.3 [place] [id number] [place] [address] 92058- 6249 September, Chronic pain G89.29 [place] [id number] [place] [address] 62648- 4354 Aug, Other acute nonsuppurative otitis media of right ear H65.191 and Morbid obesity, unspecified obesity type E66.01 [place] [id number] [place] [address] 43906- 1761 Aug, Bipolar 1 disorder F31.9 ; Posttraumatic stress disorder F43.10 and Social anxiety disorder F40.10 [place] [id number] [place] [address] 06077- 1951 Aug, Bipolar disorder F31.9 ; Posttraumatic stress disorder F43.10 and Borderline personality disorder F60.3 [place] [id number] [place] [address] 85600- 5540 Jul, Morbid obesity due to excess calories E66.01 ; Gastro- esophageal reflux disease without esophagitis K21.9 and Chronic pain G89.29 [place] [id number] [place] [address] 21448- 5149 Jul, Morbid obesity due to excess calories E66.01 [place] [id number] [place] [address] 48732- 6033 Jul, [place] [id number] [place] [address] 57738- 2404 Jul, [facility] [address] [place] [address] 90159- 0675 Jul, Morbid obesity due to excess calories E66.01 [facility] [address] [place] [address] 10175- 5069 Jul, Bipolar disorder F31.9 ; Posttraumatic stress disorder F43.10 and Borderline personality disorder F60.3 [facility] [id number] [place] [address] 68951- 5434 Jun, [facility] [id number] [place] [address] 12756- 8824 Jun, Morbid obesity due to excess calories E66.01 [facility] [id number] [place] [address] 37390- 7538 Jun, [facility] [id number] [place] [address] 32360- 1275 Jun, Morbid obesity, unspecified obesity type E66.01 [facility] [id number] [place] [address] 71333- 7912 Jun, Bipolar disorder F31.9 ; Posttraumatic stress disorder F43.10 and Borderline personality disorder F60.3 [facility] [address] [place] [address] 78450- 5904 Jun, [facility] [id number] [place] [address] 25369- 6272 Jun, [facility] [address] [place] [address] 98636- 2544 Jun, Acquired hypothyroidism E03.9 and Morbid obesity due to excess calories E66.01 [facility] [address] [place] [address] 56528- 3708 May, Bipolar disorder F31.9 ; Posttraumatic stress disorder F43.10 and Borderline personality disorder F60.3 [facility] [id number] [place] [address] 25458- 5459 13 Apr, 2016 Bipolar 1 disorder F31.9 ; Posttraumatic stress disorder F43.10 and Social anxiety disorder F40.[address] [id number][place] [id number] 12 Apr, 2016 Encounter for dental examination Z01.20 [facility] [address] [place] [address] 67474- 8365 08 Apr, 2016 [facility] [id number] [place] [address] 861379- 7516 08 Apr, 2016 Acquired hypothyroidism E03.9 [facility] [id number] [place] [address] 091150- 7154 Apr, Acquired hypothyroidism E03.9 [facility] [id number] [place] [address] 31297- 2585 07 Apr, 2016 Bipolar disorder F31.9 ; Posttraumatic stress disorder F43.10 and Borderline personality disorder F60.3 [facility] [id number] [place] [address] 31010- 3394 06 Apr, 2016 Acquired hypothyroidism E03.[address] [id number][place] [id number] 23 Mar, 2016 Encounter for dental examination and cleaning without abnormal findings Z01.20 [facility] [address] [place] [address] 47108- 1455 08 Mar, 2016 [facility] [address] [place] [address] 93144- 0208 Mar, Bipolar disorder F31.9 ; Posttraumatic stress disorder F43.10 and Borderline personality disorder F60.3 [facility] [address] [place] [address] 79466- 5055 03 Mar, 2016 Essential (primary) hypertension I10 [facility] [address] [place] [address] 96156- 5354 Feb, [facility] [id number] [place] [address] 85852- 3203 14 Feb, 2016 [facility] [address] [place] [address] 60864- 6163 11 Feb, 2016 Pelvic pain R10.2 ; Lipid screening Z13.220 ; Fatigue, unspecified type R53.83 and Weight gain R63.5 [place] [id number] [place] [address] 10491- 3947 11 Feb, 2016 Bipolar disorder F31.9 ; Posttraumatic stress disorder F43.10 and Borderline personality disorder F60.3 [place] [id number] [place] [address] 26598- 9691 07 Feb, 2016 [place] [address] 75671- 4545 05 Feb, 2016 [place] [id number] [place] [address] 85030- 8943 30 Jan, 2016 Obstructive sleep apnea syndrome G47.33 [place] [id number] [place] [address] 30416- 6811 26 Jan, [address] [id number] [address] 19 Jan, 2016 Dental examination Z01.20 [place] [id number] [place] [address] 28051- 0987 13 Jan, 2016 Bipolar 1 disorder F31.9 ; Posttraumatic stress disorder F43.10 and Social anxiety disorder F40.10 [place] [id number] [place] [address] 12156- 5364 13 Jan, 2016 Bipolar disorder F31.9 ; Posttraumatic stress disorder F43.10 and Borderline personality disorder F60.3 [place] [id number] [place] [address] 44630- 5885 13 Jan, 2016 Sciatica of left side M54.32 [place] [id number] [place] [address] 58044- 4563 06 Jan, 2016 [facility] [id number] [place] [address] 37044- 5118 Dec, [facility] [address] [place] [address] 73538- 8836 Dec, [facility] [id number] [place] [address] 628773- 6926 Dec, Bipolar disorder F31.9 ; Posttraumatic stress disorder F43.10 and Borderline personality disorder F60.3 [facility] [id number] [place] [address] 62055- 3803 Nov, [facility] [id number] [place] [address] 15963- 5864 Nov, Insomnia, unspecified type G47.00 [facility] [id number] [place] [address] 47490- 8013 Nov, Bipolar disorder F31.9 ; Posttraumatic stress disorder F43.10 and Borderline personality disorder F60.3 [facility] [id number] [place] [address] 21280- 9093 Nov, [facility] [id number] [place] [address] 53784- 4136 Nov, [facility] [id number] [place] [address] 12380- 4994 Oct, Bipolar disorder F31.9 ; Posttraumatic stress disorder F43.10 and Borderline personality disorder F60.3 [facility] [address] [place] [address] 39437- 4123 Oct, [facility] [id number] [place] [address] 80759- 1256 Oct, Essential (primary) hypertension I10 [facility] [id number] [place] [address] 06797- 0328 September, Bipolar 1 disorder F31.9 ; Posttraumatic stress disorder F43.10 and Social anxiety disorder F40.10 [facility] [address] [place] [address] 29570- 3149 September, Bipolar disorder F31.9 ; Posttraumatic stress disorder F43.10 and Borderline personality disorder F60.3 [facility] [address] [id number] [address] September, Encounter for dental examination and cleaning without abnormal findings Z01.20 [facility] [address] [address]- 4407 September, [facility] [id number] [place] [address] 08695- 9225 September, [facility] [address] [place] [address] 27809- 0789 Aug, [facility] [id number] [place] [address] 30678- 0732 Aug, Bipolar disorder F31.9 ; Posttraumatic stress disorder F43.10 and Borderline personality disorder F60.3 [facility] [address] [place] [address] 64949- 6287 Aug, [facility] [address] [place] [address] 47258- 4498 Aug, [facility] [id number] [place] [address] 66186- 2726 Aug, [facility] [id number] [place] [address] [id number] Jul, Acute nasopharyngitis [common cold] J00 and Other viral agents as the cause of diseases classified elsewhere B97.89 [facility] [address] [place] [address] 67962- 0613 Jul, Chronic pain G89.29 and Allergic rhinitis J30.9 [facility] [address] [place] [address] 70931- 4019 Jul, Bipolar 1 disorder F31.9 ; Posttraumatic stress disorder F43.10 and Social anxiety disorder F40.10 [facility] [address] [place] [address] 60704- 4035 Jul, Bipolar 1 disorder F31.9 [facility] [address] [address]- 4083 16 Jul, 2015 Bipolar disorder F31.9 ; Posttraumatic stress disorder F43.10 and Borderline personality disorder F60.3 [facility] [address] [address]- 6366 14 Jul, 2015 [facility] [address] [place] [address] 76014 2546 14 Jul, 2015 [facility] [address] [address] 2546 11 Jul, 2015 [facility] [address] [place] [address] 40395- 7976 10 Jul, 2015 Anxiety F41.9 [facility] [address] [address]- 9777 10 Jul, 2015 Chronic pain G89.29 and Encounter for therapeutic drug level monitoring Z51.81 [facility] [address] [address] 2547 09 Jul, 2015 Chronic pain G89.29 and Encounter for therapeutic drug level monitoring Z51.81 [facility] [address] [address]- 2943 08 Jul, 2015 [facility] [address] [address]- 0914 19 Jun, 2015 [facility] [address] [address]- 4468 19 Jun, 2015 [facility] [address] [address]- 2546 15 Jun, 2015 [facility] [address] [address]- 7066 15 Jun, 2015 [facility] [address] [address]- 8563 11 Jun, 2015 High risk medication use V58.69 [facility] [id number] [place] [address] 02980- 6485 Jun, [facility] [id number] [place] [address] 01542- 1381 Jun, Bipolar 1 disorder F31.9 ; Overdose T50.901A and Chronic pain G89.29 [facility] [id number] [place] [address] 94085- 2301 Jun, Bipolar disorder F31.9 ; Posttraumatic stress disorder F43.10 and Borderline personality disorder F60.3 [facility] [id number] [place] [address] 78243- 5075 Jun, [facility] [address] 55879- 3886 Jun, [facility] [id number] [place] [address] 57131- 2753 Jun, Keloid L91.0 [facility] [id number] [place] [address] 97542- 1397 Jun, [facility] [id number] [place] [address] 26756- 3075 May, [facility] [id number] [place] [address] 44596- 8258 May, [facility] [id number] [place] [address] 22821- 5013 May, Pelvic pain R10.2 [facility] [id number] [place] [address] 25822- 5557 May, [facility] [address] 35388- 8563 May, Pain of left thumb M79.645 ; Incisional pain R20.8 ; Pelvic pain R10.2 and Essential hypertension I10 [facility] [id number] [place] [address] 67950- 8218 May, [facility] [address] [facility] [id number] [address]- 1046 May, [facility] [address] [id number][place] [id number] May, Dental examination Z01.20 and Necrosis of pulp K04.1 [facility] [address] [facility] [id number] [place] [address]- 2480 Apr, [facility] [address] [facility] [id number] [place] [address]- 5819 Apr, [facility] [address] [facility] [id number] [place] [address]- 0248 Apr, [facility] [address] [facility] [id number] [place] [address]- 3633 Apr, [facility] [id number] [address]- 7443 Apr, [facility] [address] [id number] [address]- 8905 Apr, [facility] [id number] [address]- 4701 Apr, [facility] [id number] [address]- 7311 Apr, [facility] [id number] [address]- 0395 Mar, [facility] [id number] [address]- 7322 Mar, [facility] [id number] [address]- 1017 Mar, [facility] [address] [facility] [id number] [place] [address]- 1800 Mar, [facility] [address] [id number] [address] Feb, [facility] [id number] [address] Feb, [facility] [id number] [address] Feb, [facility] [id number] [address] Feb, [facility] [id number] [place] [address] Feb, [facility] [id number] [address] Feb, [facility] [id number] [place] [address] Feb, [facility] [id number] [place] [address] Feb, Dermatofibroma of left lower leg D23.72 [facility] [id number] [place] [address] Feb, Hematochezia 578.1 ; Low back pain M54.5 ; High risk medication use V58.69 ; Cervicalgia M54.2 and Anxiety F41.[address] [id number] [id number] Feb, Dental examination Z01.20 ; Pulpitis K04.0 and Dental caries, unspecified K02.[address] [id number] [id number] Feb, Dental examination Z01.20 [facility] [id number] [address] Jan, [facility] [id number] [address] Jan, [facility] [id number] [address] Jan, [facility] [id number] [place] [address], [place] [address] Jan, [facility] [address] [id number] [place] [address] Dec, [facility] [address] [id number] [place] [address] Dec, [facility] [address] [id number] [place] [address] Dec, [facility] [address] [id number] [place] [address] Dec, [facility] [address] [id number] [place] [address] Dec, [facility] [address] [id number] [place] [address] Dec, [facility] [address] [id number] [address] Dec, [facility] [address] [id number] [place] [address] Dec, [facility] [id number] [id number] Nov, Encounter for removal of sutures V58.32 [facility] [address] [id number] [place] [address] Nov, [facility] [address] [id number] [address] 63[address] Nov, [facility] [address] [id number] [place] [address] Nov, [facility] [address] [facility] [id number] [place] [address] Nov, [facility] [address] [id number] [place] [address] 116[address] Nov, [facility] [address] [id number] [place] [address] Nov, [facility] [id number] [address] Nov, [facility] [id number] [place] [address] 6928 Nov, Dermatofibroma 216.9 [facility] [id number] [address] Nov, [facility] [address] [id number] [address] 1346 Nov, [facility] [id number] [address] 65[address] Oct, [facility] [id number] [place] [address] 2111 Oct, Hematochezia 578.1 ; Abscess 682.9 ; GERD (gastroesophageal reflux disease) 530.81 ; Visual disturbance of one eye 368.9 and High risk medication use V58.69 [facility] [id number] [address] 69[address] Oct, [facility] [id number] [address] Oct, [facility] [address]00565100[place] [address] 4187 Oct, [facility] [address]00565100[place] [address]31 September, [facility] [address]00565100[place] [address] 7[address] September, [facility] [address]00565100[place] [address] 4660 September, [facility] [address]00565100[place] [address] 5936 September, [facility] [address] [id number] [address] 6756 September, [facility] [place] [facility] [address] [facility] [id number] [place] [address] 9756 September, Colon cancer screening V76.51 [facility] [place] [facility] [address] [id number] [place] [address]- 9366 September, [facility] [place] [facility] [address] [facility] [id number] [place] [address]- 1708 Aug, [facility] [place] [facility] [address] [id number] [place] [address]- 7294 Aug, [facility] [place] [facility] [address] [facility] [id number] [place] [address]- 5163 Jul, [facility] [place] [facility] [address] [facility] [id number] [place] [address] Jul, [facility] [place] [facility] [address] [id number] [place] [address]- 1021 Jul, [facility] [place] [facility] [address] [facility] [id number] [place] [address]- 6387 Jul, [facility] [place] [facility] [address] [facility] [id number] [place] [address]- 4899 Jun, [facility] [place] [facility] [address] [facility] [id number] [place] [address]- 2044 Jun, [facility] [place] [facility] [address] [facility] [id number] [place] [address]- 4848 Jun, [facility] [place] [facility] [address] [facility] [id number] [place] [address]- 2832 Jun, [facility] [place] [facility] [address] [facility] [id number] [place] [address]- 9169 Jun, [facility] [place] [facility] [address] [facility] [id number] [place] [address]- 2306 Jun, [facility] [place] [facility] [address] [facility] [id number] [place] [address]- 9770 May, [facility] [place] [facility] [address] [facility] [id number] [place] [address]- 7166 May, [facility] [address] [id number] [place] [address]- 6039 May, [facility] [address] [id number] [place] [address]- 4936 May, [facility] [address] [id number] [place] [address]- 5571 May, [facility] [address] [id number] [place] [address]- 2029 May, [facility] [address] [id number] [place] [address]- 4198 May, [facility] [address] [id number] [place] [address]- 5225 May, [facility] [address] [id number] [place] [address]- 0703 Apr, [facility] [address] [id number] [place] [address]- 7900 Apr, [facility] [address] [id number] [place] [address]- 4595 Apr, [facility] [address] [id number] [place] [address]- 3647 Apr, [facility] [place] [facility] [address] [id number] [place] [address]- 1961 Apr, [facility] [address] [id number] [place] [address]- 3793 Apr, [facility] [place] [facility] [address] [id number] [place] [address]- 8461 Apr, [facility] [place] [facility] [address] [id number] [place] [address]- 7247 Apr, [facility] [address] [id number] [place] [address]- 3782 Mar, [facility] [place] [facility] [address] [id number] [place] [address]- 6216 Mar, [facility] [place] [facility] [address] [id number] [place] [address]- 8149 Mar, [facility] [place] [facility] [address] [id number] [place] [address]- 1662 Mar, [facility] [place] [facility] [address] [id number] [place] [address]- 6762 Mar, [facility] [place] [facility] [address] [id number] [place] [address]- 6421 Mar, [facility] [place] [facility] [address] [id number] [place] [address]- 3053 Mar, [facility] [place] [facility] [address] [id number] [place] [address]- 2578 Mar, [facility] [place] [facility] [address] [id number] [place] [address]- 3756 Mar, [facility] [place] [facility] [address] [id number] [place] [address]- 3113 Mar, [facility] [place] [facility] [address] [id number] [place] [address]- 8095 Feb, [facility] [place] [facility] [address] [id number] [place] [address]- 5701 Feb, [facility] [place] [facility] [address] [id number] [place] [address]- 1390 Jan, [facility] [place] [facility] [address] [id number] [place] [address]- 0632 Jan, [facility] [place] [facility] [address] [id number] [place] [address]- 4180 18 Jan, 2014 [facility] [place] [facility] [address] [id number] [place] [address]- 0690 18 Jan, 2014 [facility] [place] [facility] [address] [id number] [place] [address]- 5925 Dec, [facility] [place] [facility] [address] [id number] [place] [address]- 1264 Dec, [facility] [place] [facility] [address] [id number] [place] [address]- 2904 Dec, [facility] [place] [facility] [address] [id number] [place] [address]- 3219 Dec, [facility] [place] [facility] [address] [id number] [place] [address]- 4302 Dec, [facility] [place] [facility] [address] [id number] [place] [address]- 1128 Dec, [facility] [place] [facility] [address] [id number] [place] [address]- 6007 Nov, [facility] [place] [facility] [address] [id number] [place] [address]- 9875 Nov, [facility] [place] [facility] [address] [id number] [place] [address]- 6759 Oct, [facility] [place] [facility] [address] [id number] [place] [address]- 9089 Oct, [facility] [place] [facility] [address] [id number] [place] [address]- 4309 Oct, [facility] [place] [facility] [address] [id number] [place] [address]- 3216 Oct, [facility] [place] [facility] [address] [id number] [place] [address]- 5295 September, [facility] [place] [facility] [address] [id number] [place] [address]- 6638 September, [facility] [place] [facility] [address] [id number] [place] [address]- 6339 September, [facility] [place] [facility] [address] [id number] [place] [address]- 3219 September, [facility] [place] [facility] [address] [id number] [place] [address]- 8554 September, [facility] [place] [facility] [address] [id number] [place] [address]- 1719 September, [facility] [place] [facility] [address] [id number] [place] [address]- 9912 September, [facility] [place] [facility] [address] [id number] [place] [address]- 6489 September, [facility] [place] [facility] [address] [id number] [place] [address]- 5692 Aug, [facility] [place] [facility] [address] [id number] [place] [address]- 3316 Aug, [facility] [place] [facility] [address] [id number] [place] [address]- 2484 Aug, [facility] [place] [facility] [address] [id number] [place] [address]- 2520 Aug, [facility] [place] [facility] [address] [id number] [place] [address]- 3203 Aug, [facility] [place] [facility] [address] [id number] [place] [address]- 3729 Aug, [facility] [place] [facility] [address] [id number] [place] [address]- 2721 Jul, [facility] [place] [facility] [address] [id number] [place] [address]- 5554 Jul, [facility] [place] [facility] [address] [id number] [place] [address]- 8453 Jul, [facility] [place] [facility] [address] [id number] [place] [address]- 8279 Jul, [facility] [place] [facility] [address] [id number] [place] [address]- 3650 Jun, [facility] [place] [facility] [address] [id number] [place] [address]- 2423 Jun, [facility] [address] [id number] [place] [address]- 0637 Jun, [facility] [address] [id number] [place] [address]- 3378 Jun, [facility] [address] [id number] [place] [address]- 5876 Jun, [facility] [address] [id number] [place] [address]- 2496 Jun, [facility] [address] [id number] [place] [address]- 1917 May, [facility] [address] [id number] [place] [address]- 8064 May, [facility] [address] [id number] [place] [address]- 3409 May, [facility] [address] [id number] [place] [address]- 9772 May, [facility] [address] [id number] [place] [address]- 9908 May, [facility] [address] [id number] [place] [address]- 4304 May, [facility] [address] [id number] [place] [address]- 6451 May, [facility] [address] [id number] [place] [address]- 0417 May, [facility] [address] [id number] [place] [address]- 4795 Apr, [facility] [address] [place] [id number] Apr, [facility] [address] [id number] [place] [address]- 8603 Apr, [facility] [address] [id number] [place] [address]- 3018 16 Apr, 2013 [facility] [address] [id number] [place] [address]- 5013 13 Apr, 2013 [facility] [place] [facility] [address] [id number] [place] [address]- 1765 13 Apr, 2013 [facility] [place] [facility] [address] [id number] [place] [address]- 7443 05 Apr, 2013 [facility] [place] [facility] [address] [id number] [place] [address]- 5493 05 Apr, 2013 [facility] [place] [facility] [address] [id number] [place] [address]- 7791 04 Apr, 2013 [facility] [place] [facility] [address] [id number] [place] [address]- 8684 13 Mar, 2013 [facility] [place] [facility] [address] [id number] [place] [address]- 3703 13 Mar, 2013 [facility] [place] [facility] [address] [id number] [place] [address]- 2043 12 Mar, 2013 [facility] [place] [facility] [address] [id number] [place] [address]- 4817 Mar, [facility] [place] [facility] [address] [facility] [id number] [place] [address]- 4028 Mar, [facility] [place] [facility] [address] [id number] [place] [address]- 6390 25 Feb, 2013 [facility] [place] [facility] [address] [id number] [place] [address]- 5601 25 Feb, 2013 [facility] [place] [facility] [address] [id number] [place] [address]- 3646 14 Feb, 2013 [facility] [place] [facility] [address] [id number] [place] [address]- 2929 14 Feb, 2013 [facility] [place] [facility] [address] [facility] [id number] [place] 8323 25 Jan, 2013 [facility] [place] [facility] [address] [id number] [place] [address]- 4226 Jan, [facility] [address] [id number] [place] [address]- 2546 Jan, [facility] [address] [id number] [place] [address]- 2546 Dec, [facility] [address] [id number] [place] [address]- 2546 Dec, [facility] [address] [id number] [place] [address]- 2546 Dec, [facility] [address] [facility] ST [id number] [place] [id number] Nov, [facility] [address] [facility] [address] [id number] [place] [id number] Oct, [facility] [address] [id number] [place] [address]- 2546 Oct, [facility] [address] [id number] [place] [address]- 2546 September, [facility] [address] [id number] [place] [address]- 2546 September, [facility] [address] [id number] [place] [address]- 2546 September, [facility] [address] [id number] [place] [address]- 2546 September, [facility] [place] [facility] [address] [id number] [place] [address]- 2546 September, [facility] [place] [facility] [address] [id number] [place] [address]- 2546 Jul, [facility] [place] [facility] [address] [id number] [place] [address]- 2546 Jul, [facility] [address] [id number] [place] [address]- 2546 Jul, [facility] [place] [facility] [address] [id number] [place] [address]- 5161 Jul, [facility] [place] [facility] [address] [id number] [place] [address]- 2185 Jun, [facility] [place] [facility] [address] [id number] [place] [address]- 8332 Jun, [facility] [place] [facility] [address] [id number] [place] [address]- 2818 Jun, [facility] [place] [facility] [address] [id number] [place] [address]- 2701 Jun, [facility] [place] [facility] [address] [id number] [place] [address]- 2257 May, [facility] [place] [facility] [address] [id number] [place] [address]- 0158 Mar, [facility] [place] [facility] [address] [id number] [place] [address]- 0740 Mar, [facility] [place] [facility] [address] [id number] [place] [address]- 1885 Mar, [facility] [place] [facility] [address] [id number] [place] [address]- 0317 Mar, [facility] [place] [facility] [address] [id number] [place] [address]- 1838 Mar, [facility] [place] [facility] [address] [id number] [place] [address]- 5468 Mar, [facility] [place] [facility] [address] [id number] [place] [address] 2541 Mar, [facility] [place] [facility] [address] [id number] [place] [address]- 5978 Mar, [facility] [place] [facility] [address] [id number] [place] [address]- 5858 Feb, [facility] [place] [facility] [address] [id number] [place] [address]- 4612 Feb, [facility] [place] [facility] [address] [id number] [place] [address]- 1373 Feb, [facility] [place] [facility] [address] [facility] [id number] [place] [address]- 6302 Feb, [facility] [place] [facility] [address] [facility] [id number] [place] [address]- 1176 Feb, [facility] [place] [facility] [address] [facility] [id number] [place] [address]- 3997 Feb, [facility] [place] [facility] [address] [facility] [id number] [place] [address]- 9752 Feb, [facility] [id number] [id number] Jan, [facility] [address] [id number] [id number] Dec, [facility] [id number] [place] [id number] Dec, [facility] [place] [facility] [address] [id number] [place] [address]- 4155 Nov, [facility] [place] [facility] [address] [id number] [address]- 7413 Nov, [facility] [place] [facility] [address] [id number] [address]- 5675 Oct, [facility] [place] [facility] [address] [facility] [id number] [place] [address]- 6313 Jul, [facility] [place] [facility] [address] [facility] [id number] [place] [address]- 6953 Jul, [facility] [place] [facility] [address] [facility] [id number] [place] [address]- 7175 May, [facility] [place] [facility] [address] [facility] [id number] [place] [address]- 8250 24 May, 2011 [facility] [place] [facility] [address] [facility] [id number] [place] [address]- 3853 Nov, [facility] [id number] [address]- 4159 Mar, [facility] [id number] [address]- 2786 Dec, [facility] [id number] [address]- 0942 Nov, [facility] [id number] [address] Aug, [facility] [id number] [address] Apr, [facility] [id number] [address] Apr, [facility] [id number] [address] Mar, [facility] [id number] [address] Feb, [facility] [id number] [address] September, [facility] [id number] [address] Jun, [facility] [id number] [address] Mar, IMMUNIZATIONS No Known Immunizations SOCIAL HISTORY Never Assessed REASON FOR VISIT Weight check PLAN OF CARE VITAL SIGNS Weight 228 lbs 2016-12-20 MEDICATIONS Unknown Medications RESULTS No Results PROCEDURES [...] hernia Hospitalization History Went by ambulance to [place] as unresponsive 05/2015 Hospitalization History [place] sent her to [facility] for a psych hold 05/2015
--- OUTSIDE RECORDS SUMMARY | 2018-03-15 11:23 | XMS REPORT ---
Author Author HERBERT MCGOWAN Organization [employer] Address Unknown Phone Unavailable Care Team Providers Care Nanotechnology Technician Name Role Phone HERBERT MCGOWAN CP Unavailable [...] Problem Irritable bowel syndrome 564.1 Active Medications Medication Code System Code Instructions Start Date End Date Status Dosage Lipitor [facility] [address]-56 20 MG Orally Once a day 1 tablet Loratadine [facility] [address]-04 10 MG October 09, 2013 1 tablet by Oral route 2 times per day Results No Known Results Summary Purpose [employer] Submission
--- OUTSIDE RECORDS SUMMARY | 2018-03-15 11:23 | XMS REPORT ---
Author Author HERBERT MCGOWAN Organization [employer] Address Unknown Phone Unavailable Care Team Providers Care Lockmaker Name Role Phone HERBERT MCGOWAN CP Unavailable [...] Start Date End Date Status Dosage Hydrocodone-Acetaminophen [facility] [address]-82 7.5-325 MG July 29, 2014 1 tablet by Oral route 3 times per day PRN Results No Known Results Summary Purpose [employer] Submission
--- OUTSIDE RECORDS SUMMARY | 2018-03-15 11:24 | XMS REPORT ---
Author Author CARYL FRANZ [facility] Address [address] [place] [address] Care Team Providers Care Social Media Content Specialist Name Role Phone OSEI CARYL Unavailable PROBLEMS Type Condition ICD9-CM Code QOZ04-FG Code Onset Dates Condition Status SNOMED Code Problem Psoriasis L40.9 Active 8074015 Problem Relationship problem with family member Z63.8 Active 047774127 Problem Essential hypertension I10 Active 32036410 Problem Anxiety F41.9 Active 23903991 Problem Visual disturbance H53.9 Active 21673418 Problem Rheumatoid arthritis involving multiple sites with positive rheumatoid factor M05.79 Active 143344353 Problem Bilateral low back pain with sciatica, sciatica laterality unspecified M54.40 Active 277934907 Problem Pelvic pain R10.2 Active 17973444 Problem Other chronic pain G89.29 Active 94299622 Problem Lumbago with sciatica, left side M54.42 Active 016259755 Problem 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 Active 259928878 Problem Blindness of right eye H54.40 Active 686456416 Problem Bipolar disorder F31.9 Active 31424877 Problem Overdose T50.901A Active 48279627 Problem Borderline personality disorder F60.3 Active 29656223 Problem Posttraumatic stress disorder F43.10 Active 12951507 Problem Obstructive sleep apnea G47.33 Active 27047974 Problem Acquired hypothyroidism E03.9 Active 289628703 Problem Chronic pain G89.29 Active 07307160 Problem Gastro-esophageal reflux disease without esophagitis K21.9 Active 051620543 Problem Social anxiety disorder F40.10 Active 03172341 Problem Morbid obesity, unspecified obesity type E66.01 Active 328894208 ALLERGIES No Information ENCOUNTERS Encounter Location Date Diagnosis [facility] [address] [facility] [id number] [place] [address] Nov, [facility] [address] [id number] [address] Nov, [facility] [address] [id number] [address] Nov, [facility] [address] [id number] [id number] Oct, [facility] [address] [id number] [address] 9867 Oct, [facility] [address] [place] [address] 69863- 4586 Oct, [facility] [address] [address] Oct, Bipolar disorder F31.9 ; Posttraumatic stress disorder F43.10 and Borderline personality disorder F60.3 [facility] [address] [address] Oct, Rheumatoid arthritis involving multiple sites with positive rheumatoid factor M05.79 ; Serpiginous choroiditis H31.22 and Anxiety F41.9 [facility] [address] [address] Oct, [facility] [address] [place] [address] 93010- 8070 September, Serpiginous choroiditis H31.22 [facility] [address] [address] September, Bipolar disorder F31.9 ; Posttraumatic stress disorder F43.10 and Borderline personality disorder F60.3 [facility] [address] [id number] [address] 7743 Aug, BMI 40.0-44.9, adult Z68.41 ; Bipolar disorder F31.9 ; Posttraumatic stress disorder F43.10 and Social anxiety disorder F40.10 [facility] [address] [id number] [address] 6[address] Aug, Bipolar disorder F31.9 ; Posttraumatic stress disorder F43.10 and Borderline personality disorder F60.3 [facility] [address] [address] 2627 Aug, Serpiginous choroiditis H31.22 [facility] [address] [place] [address] 05084 2546 Jul, Bipolar disorder F31.9 ; Posttraumatic stress disorder F43.10 and Borderline personality disorder F60.3 [facility] [address] [place] [address] 22693 2546 Jul, [facility] [address] [place] [address] 58527- 1456 Jun, Bipolar disorder F31.9 ; Posttraumatic stress disorder F43.10 and Borderline personality disorder F60.3 [facility] [address] [place] [address] 33867 2546 Jun, Blindness of right eye H54.40 and Acquired hypothyroidism E03.9 [facility] [address] [place] [address] 48285 2546 Jun, [facility] [address] [place] [address] 37009 2546 May, Posttraumatic stress disorder F43.10 ; Social anxiety disorder F40.10 and Bipolar disorder F31.9 [facility] [address] [place] [address] 87711- 5606 May, Bipolar disorder F31.9 ; Posttraumatic stress disorder F43.10 and Borderline personality disorder F60.3 [facility] [address] [address] 2546 May, [facility] [address] [place] [address] 34846 2546 May, [facility] [address] [address] 2546 Apr, Bipolar disorder F31.9 ; Posttraumatic stress disorder F43.10 and Borderline personality disorder F60.3 [id number] [address] Apr, [address] [place] [address] 04393- 8627 Apr, [facility] [address] [address] 1678 Mar, Hydradenitis L73.2 [address] [place] [place] [address] 31362- 0010 15 Mar, 2017 Lumbago with sciatica, left side M54.42 ; Other chronic pain G89.29 ; Morbid obesity, unspecified obesity type E66.01 ; Hydradenitis L73.2 and BMI 40.0-44.9, adult Z68.41 [address] [place] [address] [place] [address] 53630- 7347 07 Mar, 2017 Bipolar disorder F31.9 ; Posttraumatic stress disorder F43.10 and Borderline personality disorder F60.3 [address] [place] [address] 87959- 6201 07 Mar, 2017 Social anxiety disorder F40.10 ; Bipolar disorder F31.9 and Relationship problem with family member Z63.[address] [place] [address] 71657- 8889 06 Mar, [address] [id number] [address] 06 Mar, 2017 Dental examination Z01.20 [address] [address]- 1068 Mar, [address] [address] [place] [address] 16195- 9638 10 Feb, 2017 Bipolar disorder F31.9 ; Posttraumatic stress disorder F43.10 and Borderline personality disorder F60.3 [facility] [address] [facility] [id number] [id number] Feb, [address] [place] [place] [address] 97534- 1670 Jan, Bipolar disorder F31.9 ; Posttraumatic stress disorder F43.10 and Borderline personality disorder F60.3 [facility] [place] [address] [id number] [id number] Jan, [facility] [address] [address] Jan, [address]005[address] [id number] Jan, [facility] [id number] [place] [address] 44541- 6028 Dec, Bipolar disorder F31.9 ; Posttraumatic stress disorder F43.10 and Borderline personality disorder F60.3 [facility] [address] [place] [address] 13508- 7605 Dec, [facility] [address] [place] [address] 06017- 8953 Dec, [facility] [address]005[address] [address] Dec, [facility] [address] [place] [address] 93107- 1713 Nov, Bipolar 1 disorder F31.9 ; Posttraumatic stress disorder F43.10 and Social anxiety disorder F40.10 [facility] [address] [address] 4457 Nov, Bipolar disorder F31.9 ; Posttraumatic stress disorder F43.10 and Borderline personality disorder F60.3 [facility] [address] [address]- 1044 Nov, Morbid obesity, unspecified obesity type E66.01 [facility] [address] [address]- 4346 Nov, [facility] [place] [address] [facility] [address] [id number][place] [address] Oct, Encounter for dental examination and cleaning without abnormal findings Z01.20 [facility] [id number] [place] [address] 96091- 7152 Oct, Morbid obesity, unspecified obesity type E66.01 and Acute seasonal allergic rhinitis due to pollen J30.1 [address] [id number] [place] [address] 87288- 1842 Oct, Bipolar disorder F31.9 ; Posttraumatic stress disorder F43.10 and Borderline personality disorder F60.3 [address] [address]99- 7754 September, Morbid obesity, unspecified obesity type E66.01 and Psoriasis L40.9 [address] [address] 09122- 3909 September, Bipolar disorder F31.9 ; Posttraumatic stress disorder F43.10 and Borderline personality disorder F60.3 [address] 74388- 6950 September, Chronic pain G89.29 [address] [address] 02407- 9745 Aug, Other acute nonsuppurative otitis media of right ear H65.191 and Morbid obesity, unspecified obesity type E66.01 [address] [id number] [place] [address] 75391- 5165 Aug, Bipolar 1 disorder F31.9 ; Posttraumatic stress disorder F43.10 and Social anxiety disorder F40.10 [address] [id number] [place] [address] 39910- 3298 Aug, Bipolar disorder F31.9 ; Posttraumatic stress disorder F43.10 and Borderline personality disorder F60.3 [address] 80128- 5404 Jul, Morbid obesity due to excess calories E66.01 ; Gastro- esophageal reflux disease without esophagitis K21.9 and Chronic pain G89.29 [address] 55723- 6537 Jul, Morbid obesity due to excess calories E66.01 [facility] [address] [facility] [id number] [place] [address]- 8736 Jul, [facility] [address] [facility] [id number] [place] [address]- 6526 Jul, [facility] [address] [facility] [id number] [place] [address] 2544 Jul, Morbid obesity due to excess calories E66.01 [facility] [address] [facility] [id number] [place] [address] 2545 Jul, Bipolar disorder F31.9 ; Posttraumatic stress disorder F43.10 and Borderline personality disorder F60.3 [facility] [address] [id number] [address]- 3116 Jun, [facility] [address] [address]- 5428 Jun, Morbid obesity due to excess calories E66.01 [facility] [address] [facility] [facility] [id number] [place] [address]- 9511 Jun, [facility] [address] [id number] [address]- 9987 Jun, Morbid obesity, unspecified obesity type E66.01 [facility] [address] [id number] [address] 2547 Jun, Bipolar disorder F31.9 ; Posttraumatic stress disorder F43.10 and Borderline personality disorder F60.3 [facility] [address] [facility] [id number] [place] [address] 2546 Jun, [facility] [address] [facility] [id number] [place] [address] 2546 Jun, [facility] [address] [facility] [id number] [place] [address]- 0209 Jun, Acquired hypothyroidism E03.9 and Morbid obesity due to excess calories E66.01 [facility] [address] [address]- 8289 06 May, 2016 Bipolar disorder F31.9 ; Posttraumatic stress disorder F43.10 and Borderline personality disorder F60.3 [address] [id number] [place] [address] 45067- 8121 13 Apr, 2016 Bipolar 1 disorder F31.9 ; Posttraumatic stress disorder F43.10 and Social anxiety disorder F40.10 [address] [address] 12 Apr, 2016 Encounter for dental examination Z01.20 [facility] [id number] [place] [address] 08688- 8378 08 Apr, 2016 [id number] [place] [address] 94640- 9301 Apr, Acquired hypothyroidism E03.9 [address] [id number] [place] [address] 375001- 3698 Apr, Acquired hypothyroidism E03.9 [facility] [id number] [place] [address] 06383- 3848 Apr, Bipolar disorder F31.9 ; Posttraumatic stress disorder F43.10 and Borderline personality disorder F60.3 [address] [id number] [place] [address] 21249- 8026 Apr, Acquired hypothyroidism E03.[address] [id number] [id number] Mar, Encounter for dental examination and cleaning without abnormal findings Z01.20 [facility] [address] [place] [address] 02664- 9932 08 Mar, 2016 [address] [id number] [place] [address] 64812- 0171 Mar, Bipolar disorder F31.9 ; Posttraumatic stress disorder F43.10 and Borderline personality disorder F60.3 [address] [id number] [place] [address] 89116- 7198 Mar, Essential (primary) hypertension I10 [facility] [address] [address]- 4480 Feb, [facility] [address] [place] [address] 46066- 4653 14 Feb, 2016 [facility] [id number] [place] [address] 11392- 8626 Feb, Pelvic pain R10.2 ; Lipid screening Z13.220 ; Fatigue, unspecified type R53.83 and Weight gain R63.5 [facility] [id number] [place] [address] 40577- 5568 11 Feb, 2016 Bipolar disorder F31.9 ; Posttraumatic stress disorder F43.10 and Borderline personality disorder F60.3 [facility] [address] [place] [address] 79586- 4645 07 Feb, 2016 [facility] [id number] [place] [address] 59210- 2243 05 Feb, 2016 [facility] [id number] [place] [address] 57696- 6540 30 Jan, 2016 Obstructive sleep apnea syndrome G47.33 [facility] [address] [place] [address] 43672- 4355 26 Jan, [address] [id number] [address] 19 Jan, 2016 Dental examination Z01.20 [facility] [address] [place] [address] 89595- 1370 13 Jan, 2016 Bipolar 1 disorder F31.9 ; Posttraumatic stress disorder F43.10 and Social anxiety disorder F40.10 [facility] [address] [place] [address] 34686- 1881 13 Jan, 2016 Bipolar disorder F31.9 ; Posttraumatic stress disorder F43.10 and Borderline personality disorder F60.3 [facility] [address] [place] [address] 57814- 6922 Jan, Sciatica of left side M54.32 [facility] [address] [place] [address] 35875- 1472 Jan, [facility] [id number] [place] [address] 24371- 0114 Dec, [facility] [id number] [place] [address] 37399- 6026 Dec, [facility] [id number] [place] [address] 38067- 1519 Dec, Bipolar disorder F31.9 ; Posttraumatic stress disorder F43.10 and Borderline personality disorder F60.3 [facility] [id number] [place] [address] 39599- 6084 Nov, [facility] [id number] [place] [address] 56364- 6353 Nov, Insomnia, unspecified type G47.00 [facility] [id number] [place] [address] 79032- 9503 Nov, Bipolar disorder F31.9 ; Posttraumatic stress disorder F43.10 and Borderline personality disorder F60.3 [facility] [id number] [place] [address] 86766- 0753 Nov, [facility] [id number] [place] [address] 98993- 3394 Nov, [facility] [id number] [place] [address] 44663- 9185 Oct, Bipolar disorder F31.9 ; Posttraumatic stress disorder F43.10 and Borderline personality disorder F60.3 [facility] [id number] [place] [address] 62051- 5533 Oct, [facility] [id number] [place] [address] 51097- 5123 Oct, Essential (primary) hypertension I10 [facility] [id number] [place] [address] 19852- 1797 September, Bipolar 1 disorder F31.9 ; Posttraumatic stress disorder F43.10 and Social anxiety disorder F40.10 [facility] [address] [place] [address] 77313- 9805 September, Bipolar disorder F31.9 ; Posttraumatic stress disorder F43.10 and Borderline personality disorder F60.[address] [id number] [address] September, Encounter for dental examination and cleaning without abnormal findings Z01.20 [facility] [address] [place] [address] 00694- 1315 September, [facility] [id number] [place] [address] 92316- 4743 September, [facility] [id number] [place] [address] 99486- 4823 Aug, [facility] [id number] [place] [address] 33100- 6680 Aug, Bipolar disorder F31.9 ; Posttraumatic stress disorder F43.10 and Borderline personality disorder F60.3 [facility] [address] [place] [address] 19211- 0672 Aug, [facility] [address] [place] [address] 18290- 6871 Aug, [facility] [address] [place] [address] 26544- 7671 Aug, [facility] [id number] [id number] Jul, Acute nasopharyngitis [common cold] J00 and Other viral agents as the cause of diseases classified elsewhere B97.89 [facility] [address] [place] [address] 48026- 7048 Jul, Chronic pain G89.29 and Allergic rhinitis J30.9 [facility] [id number] [place] [address] 69639- 6759 24 Jul, 2015 Bipolar 1 disorder F31.9 ; Posttraumatic stress disorder F43.10 and Social anxiety disorder F40.10 [facility] [id number] [place] [address] 07746- 5168 16 Jul, 2015 Bipolar 1 disorder F31.9 [facility] [id number] [place] [address] 580001- 9285 16 Jul, 2015 Bipolar disorder F31.9 ; Posttraumatic stress disorder F43.10 and Borderline personality disorder F60.3 [facility] [id number] [place] [address] 69617- 0569 14 Jul, 2015 [facility] [id number] [place] [address] 38198- 1526 14 Jul, 2015 [facility] [id number] [place] [address] 68045- 7139 11 Jul, 2015 [facility] [id number] [place] [address] 60084- 7697 10 Jul, 2015 Anxiety F41.9 [facility] [id number] [place] [address] 04861- 1402 10 Jul, 2015 Chronic pain G89.29 and Encounter for therapeutic drug level monitoring Z51.81 [facility] [address] [place] [address] 18515- 0832 09 Jul, 2015 Chronic pain G89.29 and Encounter for therapeutic drug level monitoring Z51.81 [facility] [address] [place] [address] 85008- 0321 08 Jul, 2015 [facility] [id number] [place] [address] 87874- 3576 Jun, [facility] [id number] [place] [address] 41946- 5250 19 Jun, 2015 [facility] [id number] [place] [address] 33308- 7735 15 Jun, 2015 [facility] [id number] [place] [address] 40475- 8402 15 Jun, 2015 [facility] [id number] [place] [address] 75827- 3031 Jun, High risk medication use V58.69 [facility] [id number] [place] [address] 70401- 1429 Jun, [facility] [address] 52710- 4975 Jun, Bipolar 1 disorder F31.9 ; Overdose T50.901A and Chronic pain G89.29 [facility] [address] 24681- 5419 Jun, Bipolar disorder F31.9 ; Posttraumatic stress disorder F43.10 and Borderline personality disorder F60.3 [facility] [id number] [place] [address] 07900- 8323 Jun, [facility] [address] 23475- 1181 Jun, [facility] [address] 47025- 2693 Jun, Keloid L91.0 [facility] [id number] [place] [address] 50253- 6997 Jun, [facility] [id number] [place] [address] 60366- 5501 May, [facility] [id number] [place] [phone] May, [facility] [address] [address] May, Pelvic pain R10.2 [facility] [id number] [place] [id number] May, [facility] [id number] [place] [address] May, Pain of left thumb M79.645 ; Incisional pain R20.8 ; Pelvic pain R10.2 and Essential hypertension I10 [facility] [id number] [address] May, [facility] [id number] [place] [address]- 1507 May, [address] [id number] [id number] May, Dental examination Z01.20 and Necrosis of pulp K04.1 [facility] [id number] [place] [address] 86552- 7763 Apr, [facility] [id number] [place] [address] 02152- 1504 Apr, [facility] [id number] [place] [address] 77145- 3117 Apr, [facility] [address] [address]- 5251 Apr, [facility] [id number] [place] [address] 29906- 5616 Apr, [facility] [address] [address]- 5610 Apr, [facility] [id number] [place] [address] 92096- 5031 Apr, [facility] [address]005[address] [address]- 4544 Apr, [facility] [id number] [place] [address] 18012- 4470 Mar, [facility] [address] [address]- 5948 Mar, [facility] [address] [address]- 6930 Mar, [facility] [address] [address]- 4759 Mar, [facility] [address] [address]- 0213 Feb, [facility] [address] [id number] [address]- 9468 Feb, [facility] [id number] [place] [address] 02618- 6647 Feb, [facility] [address] [id number] [address]- 8048 Feb, [facility] [id number] [place] [address] 70658- 7533 Feb, [facility] [address] [address]- 7372 Feb, [facility] [address] [id number] [address]- 5409 Feb, [facility] [address] [address]- 0977 Feb, Dermatofibroma of left lower leg D23.72 [facility] [address] [address] 1402 Feb, Hematochezia 578.1 ; Low back pain M54.5 ; High risk medication use V58.69 ; Cervicalgia M54.2 and Anxiety F41.[address] [id number][place] [id number] Feb, Dental examination Z01.20 ; Pulpitis K04.0 and Dental caries, unspecified K02.[address] [id number] [id number] Feb, Dental examination Z01.20 [facility] [address] [id number] [address]- 2545 Jan, [facility] [address]100[facility] [place] [address] 1925 Jan, [facility] [address] [id number] [place] [address] 4954 Jan, [facility] [address] [id number] [place] [address]- 0310 Jan, [facility] [address] [id number] [place] [address]- 6420 Dec, [facility] [address] [id number] [place] [address]- 0334 Dec, [facility] [address] [id number] [place] [address]- 5699 Dec, [facility] [address] [id number] [place] [address]- 0253 Dec, [facility] [address] [id number] [place] [address]- 8714 Dec, [facility] [address] [id number] [place] [address]- 8036 Dec, [facility] [address] [id number] [address]- 4828 Dec, [facility] [address] [id number] [address]- 7719 Dec, [facility] [address] [facility] [id number] [id number] Nov, Encounter for removal of sutures V58.32 [facility] [address] [id number] [place] [address]- 9465 Nov, [facility] [address] [facility] [id number] [place] [address]- 0485 Nov, [facility] [address] [id number] [place] [address]- 3870 Nov, [facility] [address] [facility] [id number] [place] [address]- 5495 Nov, [facility] [address]005[address] [address]- 5472 Nov, [facility] [address]00565[address] [address]- 7655 Nov, [facility] [address]00565[address] [address]- 0045 Nov, [facility] [id number] [place] [address] 22486- 2121 Nov, Dermatofibroma 216.9 [facility] [id number] [place] [address] 01772- 4492 Nov, [facility] [id number] [place] [address] 85903- 5840 Nov, [facility] [id number] [place] [address] 07262- 4977 Oct, [facility] [address]00565[address] [address]- 3006 Oct, Hematochezia 578.1 ; Abscess 682.9 ; GERD (gastroesophageal reflux disease) 530.81 ; Visual disturbance of one eye 368.9 and High risk medication use V58.69 [facility] [address]00565[address] [address]- 6806 Oct, [facility] [address]00565[address] [address]- 8711 Oct, [facility] [address]00565[address] [address]- 6768 Oct, [facility] [address]00565[address] [address]- 6538 September, [facility] [address]00565[address] [address]- 1476 September, [facility] [address]00565[address] [address]- 5768 September, [facility] [place] [facility] [address] [id number] [place] [address]- 2615 September, [facility] [place] [facility] [address] [facility] [id number] [place] [address]- 9345 September, [facility] [place] [facility] [address] [facility] [id number] [place] [address]- 4114 September, Colon cancer screening V76.51 [facility] [place] [facility] [address] [id number] [place] [address]- 9792 September, [facility] [place] [facility] [address] [id number] [place] [address]- 8421 Aug, [facility] [place] [facility] [address] [facility] [id number] [place] [address]- 1023 Aug, [facility] [place] [facility] [address] [facility] [id number] [place] [address]- 5837 Jul, [facility] [place] [facility] [address] [facility] [id number] [place] [address]- 9816 Jul, [facility] [place] [facility] [address] [facility] [id number] [place] [address]- 6139 Jul, [facility] [place] [facility] [address] [facility] [id number] [place] [address]- 2028 Jul, [facility] [place] [facility] [address] [id number] [place] [address]- 0735 Jun, [facility] [place] [facility] [address] [id number] [place] [address]- 9020 Jun, [facility] [place] [facility] [address] [id number] [place] [address]- 4480 Jun, [facility] [place] [facility] [address] [facility] [id number] [place] 1342 Jun, [facility] [place] [facility] [address] [facility] [id number] [place] [address]- 8963 Jun, [facility] [place] [facility] [address] [id number] [place] [address]- 8486 Jun, [facility] [address] [id number] [place] [address]- 0118 May, [facility] [place] [facility] [address] [id number] [place] [address]- 8386 May, [facility] [place] [facility] [address] [id number] [place] [address]- 9746 May, [facility] [place] [facility] [address] [id number] [place] [address]- 2169 May, [facility] [place] [facility] [address] [id number] [place] [address]- 4667 May, [facility] [place] [facility] [address] [id number] [place] [address]- 4172 May, [facility] [place] [facility] [address] [id number] [place] [address]- 7583 May, [facility] [place] [facility] [address] [id number] [place] [address]- 0816 May, [facility] [place] [facility] [address] [id number] [place] [address]- 6438 Apr, [facility] [place] [facility] [address] [id number] [place] [address]- 8969 Apr, [facility] [place] [facility] [address] [id number] [place] [address]- 6606 Apr, [facility] [place] [facility] [address] [id number] [place] [address]- 6890 Apr, [facility] [place] [facility] [address] [id number] [place] [address]- 0794 Apr, [facility] [place] [facility] [address] [id number] [place] [address]- 4166 Apr, [facility] [place] [facility] [address] [id number] [place] [address]- 5997 Apr, [facility] [place] [facility] [address] [id number] [place] [address]- 2593 Apr, [facility] [place] [facility] [address] [id number] [place] [address]- 5786 Mar, [facility] [place] [facility] [address] [id number] [place] [address]- 9978 Mar, [facility] [place] [facility] [address] [id number] [place] [address]- 4816 Mar, [facility] [place] [facility] [address] [id number] [place] [address]- 0534 Mar, [facility] [place] [facility] [address] [id number] [place] [address]- 6222 Mar, [facility] [place] [facility] [address] [id number] [place] [address]- 9051 Mar, [facility] [place] [facility] [address] [id number] [place] [address]- 3775 Mar, [facility] [place] [facility] [address] [id number] [place] [address]- 7974 Mar, [facility] [place] [facility] [address] [id number] [place] [address]- 8166 Mar, [facility] [place] [facility] [address] [id number] [place] [address]- 3645 Mar, [facility] [place] [facility] [address] [id number] [place] [address]- 0247 Feb, [facility] [place] [facility] [address] [id number] [place] [address]- 6248 Feb, [facility] [place] [facility] [address] [id number] [place] [address]- 8886 Jan, [facility] [place] [facility] [address] [id number] [place] [address]- 4177 Jan, [facility] [place] [facility] [address] [id number] [place] [address]- 6350 Jan, [facility] [place] [facility] [address] [id number] [place] [address]- 3694 Jan, [facility] [place] [facility] [address] [id number] [place] [address]- 5410 Dec, [facility] [place] [facility] [address] [id number] [place] [address]- 3562 Dec, [facility] [place] [facility] [address] [id number] [place] [address]- 7659 Dec, [facility] [place] [facility] [address] [id number] [place] [address]- 5437 Dec, [facility] [place] [facility] [address] [id number] [place] [address]- 1368 Dec, [facility] [place] [facility] [address] [id number] [place] [address]- 7363 Dec, [facility] [place] [facility] [address] [id number] [place] [address]- 0064 Nov, [facility] [place] [facility] [address] [id number] [place] [address]- 5230 Nov, [facility] [place] [facility] [address] [id number] [place] [address]- 2484 Oct, [facility] [place] [facility] [address] [id number] [place] [address]- 4542 Oct, [facility] [place] [facility] [address] [id number] [place] [address]- 3969 Oct, [facility] [place] [facility] [address] [id number] [place] [address]- 8608 Oct, [facility] [place] [facility] [address] [id number] [place] [address]- 7942 September, [facility] [place] [facility] [address] [id number] [place] [address]- 1205 September, [facility] [place] [facility] [address] [id number] [place] [address]- 3667 September, [facility] [place] [facility] [address] [id number] [place] [address]- 6040 September, [facility] [place] [facility] [address] [id number] [place] [address]- 5535 September, [facility] [place] [facility] [address] [id number] [place] [address]- 9522 September, [facility] [place] [facility] [address] [id number] [place] [address]- 6466 September, [facility] [place] [facility] [address] [id number] [place] [address]- 7908 September, [facility] [place] [facility] [address] [id number] [place] [address]- 2280 Aug, [facility] [place] [facility] [address] [id number] [place] [address]- 2441 Aug, [facility] [place] [facility] [address] [id number] [place] [address]- 8171 Aug, [facility] [place] [facility] [address] [id number] [place] [address]- 9122 Aug, [facility] [place] [facility] [address] [id number] [place] [address]- 1049 Aug, [facility] [place] [facility] [address] [id number] [place] [address]- 2501 Aug, [facility] [place] [facility] [address] [id number] [place] [address]- 1145 Jul, [facility] [place] [facility] [address] [id number] [place] [address]- 8235 Jul, [facility] [place] [facility] [address] [id number] [place] [address]- 8713 Jul, [facility] [place] [facility] [address] [id number] [place] [address]- 1957 Jul, [facility] [address] [id number] [place] [address]- 7205 Jun, [facility] [address] [id number] [place] 6576 Jun, [facility] [address] [id number] [place] [address]- 3696 Jun, [facility] [address] [id number] [place] [address]- 0880 Jun, [facility] [address] [id number] [place] [address]- 5789 Jun, [facility] [address] [id number] [place] [address]- 7738 Jun, [facility] [address] [facility] [facility] [id number] [place] [address]- 6833 May, [facility] [address] [id number] [place] [address]- 0305 May, [facility] [address] [id number] [place] [address]- 8656 May, [facility] [address] [facility] [id number] [place] [address]- 3129 May, [facility] [address] [id number] [place] [address]- 4216 May, [facility] [address] [id number] [place] [address]- 0431 May, [facility] [address] [id number] [place] [address]- 5029 May, [facility] [address] [id number] [place] [address]- 9769 May, [facility] [address] [facility] [id number] [place] [address]- 4575 Apr, [facility] [address] [place] [id number] 16 Apr, 2013 [facility] [address] [id number] [place] [address]- 4563 16 Apr, 2013 [facility] [address] [id number] [place] [address]- 1586 16 Apr, 2013 [facility] [address] [id number] [place] [address]- 1701 13 Apr, 2013 [facility] [address] [id number] [place] [address]- 5907 Apr, [facility] [address] [id number] [place] [address]- 7687 05 Apr, 2013 [facility] [address] [id number] [place] [address]- 9992 05 Apr, 2013 [facility] [address] [id number] [place] [address]- 7144 04 Apr, 2013 [facility] [address] [id number] [place] [address]- 0825 Mar, [facility] [address] [id number] [place] [address]- 9283 Mar, [facility] [address] [id number] [place] [address]- 0197 12 Mar, 2013 [facility] [address] [id number] [place] [address]- 6341 Mar, [facility] [address] [id number] [place] [address]- 2251 Mar, [facility] [address] [id number] [place] [address]- 3936 Feb, [facility] [address] [id number] [place] [address]- 5236 Feb, [facility] [address] [id number] [place] [address]- 6556 14 Feb, 2013 [facility] [address] [id number] [place] [address]- 5224 14 Feb, 2013 [facility] [address] [id number] [place] [address]- 0798 25 Jan, 2013 [facility] [address] [id number] [place] [address]- 0867 24 Jan, 2013 [facility] [address] [id number] [place] [address]- 9512 Jan, [facility] [address] [id number] [place] [address]- 3394 Dec, [facility] [address] [id number] [place] [address]- 6806 Dec, [facility] [address] [id number] [place] [address]- 0436 Dec, [facility] [address] [id number] [id number] Nov, [facility] [address] [facility] [id number] [id number] Oct, [facility] [address] [facility] [id number] [place] [address]- 5209 Oct, [facility] [address] [id number] [place] [address]- 6196 September, [facility] [place] [facility] [address] [id number] [place] [address]- 2546 September, [facility] [address] [id number] [place] [address]- 2546 September, [facility] [place] [facility] [address] [id number] [place] [address]- 2546 September, [facility] [place] [facility] [address] [id number] [place] [address]- 2546 September, [facility] [place] [facility] [address] [id number] [place] 2342 Jul, [facility] [address] [id number] [place] [address]- 3366 Jul, [facility] [place] [facility] [address] [id number] [place] [address]- 2499 Jul, [facility] [place] [facility] [address] [id number] [place] [address] Jul, [facility] [place] [facility] [address] [id number] [place] [address] Jun, [facility] [place] [facility] [address] [id number] [place] [address] Jun, [facility] [place] [facility] [address] [id number] [place] [address] Jun, [facility] [place] [facility] [address] [id number] [place] [address] Jun, [facility] [place] [facility] [address] [id number] [place] [address] May, [facility] [place] [facility] [address] [id number] [place] [address] Mar, [facility] [place] [facility] [address] [id number] [place] [address] Mar, [facility] [place] [facility] [address] [id number] [place] [address] Mar, [facility] [place] [facility] [address] [id number] [place] [address] Mar, [facility] [place] [facility] [address] [id number] [place] [address] Mar, [facility] [place] [facility] [address] [id number] [place] [address] Mar, [facility] [place] [facility] [address] [id number] [place] [address] Mar, [facility] [place] [facility] [address] [facility] [id number] [place] [address] Mar, [facility] [place] [facility] [address] [id number] [place] [address] Feb, [facility] [place] [facility] [address] [facility] [id number] [place] [address] Feb, [facility] [place] [facility] [address] [facility] [id number] [place] [address] Feb, [facility] [place] [facility] [address] [facility] [id number] [place] [address] Feb, [facility] [place] [facility] [address] [facility] [id number] [place] [address] Feb, [facility] [place] [facility] [address] [facility] [id number] [place] [address] Feb, [facility] [place] [facility] [address] [facility] [id number] [place] [address] Feb, [facility] [address] [facility] [id number] [id number] Jan, [facility] [address] [facility] [id number][place] [id number] Dec, [facility] [address] [facility] [id number][place] [id number] Dec, [facility] [place] [facility] [address] [facility] [id number] [place] [address] Nov, [facility] [place] [facility] [address] [facility] [id number] [place] [address] Nov, [facility] [place] [facility] [address] [facility] [id number] [place] [address] Oct, [facility] [place] [facility] [address] [facility] [id number] [place] [address] Jul, [facility] [place] [facility] [address] [facility] [id number] [place] [address] Jul, [facility] [place] [facility] [address] [facility] [id number] [place] [address] May, [facility] [address] [place] [address] May, [facility] [address] [place] [address] Nov, [facility] [address] [address] Mar, [facility] [id number] [place] [address] Dec, [facility] [id number] [place] [address] Nov, [facility] [id number] [place] [address] Aug, [facility] [id number] [place] [address]- [address] Apr, [facility] [address] [address] Apr, [facility] [id number] [place] [address] Mar, [facility] [address] [address] Feb, [facility] [address] [address] September, [facility] [address] [address] Jun, [facility] [address] [address] Mar, IMMUNIZATIONS No Known Immunizations SOCIAL HISTORY [...] hernia Hospitalization History Went by ambulance to [facility] as unresponsive 05/2015 Hospitalization History [facility] sent her to [facility] for a psych hold 05/2015
--- OUTSIDE RECORDS SUMMARY | 2018-03-15 11:25 | XMS REPORT ---
Author Author HERBERT MCGOWAN Organization [employer] Address Unknown Phone Unavailable Care Team Providers Care Chemical Checker Name Role Phone HERBERT MCGOWAN CP Unavailable [...] Start Date End Date Status Dosage Imitrex [facility] [address]-55 50 mg Orally Once a day 1 tablet as needed at start of migraine Dicyclomine HCl [facility] [address]-16 20 mg Orally Four times a day 1 tablet Results No Known Results Summary Purpose [employer] Submission
--- OUTSIDE RECORDS SUMMARY | 2018-03-15 11:25 | XMS REPORT ---
Author Author HERBERT MCGOWAN [facility] [employer] Address Unknown Phone Unavailable Care Team Providers Care Clarifier Name Role Phone HERBERT MCGOWAN Unavailable Allergies, [...] Condition Code Onset Dates Condition Status Assessment Insomnia, unspecified type G47.00 Active Problem Dehydration 276.51 Active Problem Pelvic [...] Date End Date Status Dosage Combivent Respimat [facility] [address]-59 20-100 MCG/ACT Inhalation Four times a day 1 puff Carafate [facility] [address]-30 1 GM Orally 4 times a day 1 tablet on an empty stomach Promethazine HCl [facility] [address]-20 25 MG Orally every 6 hours prn 1 tablet as needed Protonix [facility] [address]-88 20 mg Orally Once a day November 05, 2014 1 tablet Creon [facility] [address]-58 84967 UNIT Orally 3 times a day December 10, 2014 1 capsule before meals Fish Oil [facility] [address]-05 1000 MG Orally Once a day 1 capsule Tizanidine HCl [facility] [address]-50 2 MG Orally 2 times a day Feb 18, 2015 1 tablet as needed Ipratropium [place] [facility] [address]-88 0.03 % Nasally Twice a day August 11, 2015 2 applications in each nostril as needed PrednisoLONE Sodium Phosphate [facility] [address]-39 1 % Ophthalmic 4 times a day 1 drop into affected eye Cymbalta [facility] [address]-68 30 MG Orally Once a day with Cymbalta 60mg. Total dose 90mg 1 capsule along with 60mg Hyzaar [facility] [address]-12 50-12.5 MG Orally Once a day October 04, 2014 1 tablet Vagifem [facility] [address]-04 10 MCG Vaginal 1 tablet Imitrex [facility] [address]-55 50 mg Orally Once a day 1 tablet as needed at start of migraine Lipitor [facility] [address]-82 20 mg Orally Once a day 1 tablet Loratadine [facility] [address]-99 10 mg Orally 2 times a day October 09, 2013 1 tablet Depo-Estradiol [facility] [address]-36 5 MG/ML Intramuscular 1 ml Dicyclomine HCl [facility] [address]-73 20 mg Orally Four times a day 1 tablet Albuterol Sulfate [facility] [address]-48 (2.5 MG/3ML) 0.083% Inhalation every 4 hrs 3 ml Lidoderm [facility] [address]-88 5 % Externally Once a day 1 patch to intact skin remove after 12 hours Cymbalta [facility] [address]-39 60 mg Orally Once a day with Cymbalta 30mg. Total dose is 90mg 1 capsule Bentyl [facility] [address]-28 20 MG Jun 07, 2014 1 tablet by Oral route every 6 hours PRN TENS Unit NDC 0 device Use as directed Neurontin [facility] [address]-06 300 MG Orally 3 times a day October 02, 2015 1 capsule Lamotrigine [facility] [address]-26 100 MG Orally Once a day 1 tablet Lidocaine HCl-Epinephrine ND 0 10-0.1 % Externally not defined Doxepin HCl [facility] [address]-74 10 mg Orally Once at bedtime for sleep September 1 capsule at bedtime Procedures Procedure Coding System Code Date Office Visit, Est Pt., Level 3 CPT-4 27052 November 24, 2015 Vital Signs Date/Time: November 24, 2015 Cardiac Monitoring Heart Rate 84 bpm Weight 239.1 lbs Height 62 in BMI 43.73 Index Blood Pressure Diastolic 86 mmHg Blood Pressure Systolic 130 mmHg Results No Known Results Summary Purpose eClinicalWorks Submission
--- OUTSIDE RECORDS SUMMARY | 2018-03-15 11:25 | XMS REPORT ---
Author HERBERT Sykes Organization [employer] Address Unknown Phone Unavailable Care Team Providers Care Jowl Trimmer Name Role Phone HERBERT MCGOWAN CP Unavailable Allergies, Adverse Reactions, Alerts Substance Reaction [...] Condition Code Onset Dates Condition Status Assessment Weight gain R63.5 Active Assessment Fatigue, unspecified type R53.83 Active Assessment Lipid screening Z13.220 Active Assessment Pelvic pain R10.2 Active Problem Dehydration 276.51 Active Problem Hypopotassemia [...] Instructions Start Date End Date Status Dosage Doxepin HCl [facility] [address]-42 10 mg Orally Once at bedtime for sleep September 1 capsule at bedtime Lamotrigine [facility] [address]-22 150 MG Orally Once a day 1 tablet Cymbalta [facility] [address]-81 30 MG Orally Once a day with Cymbalta 60mg. Total dose 90mg 1 capsule along with 60mg Lidoderm [facility] [address]-81 5 % Externally Once a day 1 patch to intact skin remove after 12 hours Albuterol Sulfate [facility] [address]-99 (2.5 MG/3ML) 0.083% Inhalation every 4 hrs 3 ml Carafate [facility] [address]-04 1 GM Orally 4 times a day 1 tablet on an empty stomach Hyzaar [facility] [address]-90 50-12.5 MG Orally Once a day October 04, 2014 1 tablet Combivent Respimat [facility] [address]-44 20-100 MCG/ACT Inhalation Four times a day 1 puff Fish Oil [facility] [address]-17 1000 MG Orally Once a day 1 capsule TENS Unit [facility] 0 device Use as directed PrednisoLONE Sodium Phosphate [facility] [address]-63 1 % Ophthalmic 4 times a day 1 drop into affected eye Lipitor [facility] [address]-66 20 mg Orally Once a day 1 tablet Protonix [facility] [address]-48 20 mg Orally Once a day November 05, 2014 1 tablet Dicyclomine HCl [facility] [address]-47 20 mg Orally Four times a day 1 tablet Cymbalta [facility] [address]-58 60 mg Orally Once a day with Cymbalta 30mg. Total dose is 90mg 1 capsule Depo-Estradiol [facility] [address]-45 5 MG/ML Intramuscular 1 ml Vagifem [facility] [address]-80 10 MCG Vaginal 1 tablet Loratadine [facility] [address]-48 10 mg Orally 2 times a day October 09, 2013 1 tablet Tizanidine HCl [facility] [address]-22 2 MG Orally 2 times a day Feb 18, 2015 1 tablet as needed Imitrex [facility] [address]-41 50 mg Orally Once a day 1 tablet as needed at start of migraine Neurontin [facility] [address]-88 300 MG Orally 3 times a day October 02, 2015 1 capsule Creon [facility] [address]-20 11626 UNIT Orally 3 times a day December 10, 2014 1 capsule before meals Procedures Procedure Coding System Code Date Office Visit, Est Pt., Level 3 CPT-4 45750 Feb 24, 2016 VENIPUNCT, ROUTINE* CPT-4 65894 Feb 24, 2016 [facility] CPT-4 NOBLL Feb 24, 2016 Vital Signs Date/Time: Feb 24, 2016 Cardiac Monitoring Heart Rate 84 bpm Weight 252.2 lbs Height 62 in BMI 46.12 Index Blood Pressure Diastolic 86 mmHg Blood Pressure Systolic 130 mmHg Results Name Result Date Reference Range Unit Abnormality Flag INSULIN LEVEL ----Insulin 19.8 [id number] 2.6-24.9 uIU/mL LIPID PANEL ----LDL Cholesterol Calc 76 20434605 0-99 mg/dL ----VLDL Cholesterol Kenneth 24 87994748 5-40 mg/dL ----Cholesterol, Total 146 49460727 100-199 mg/dL ----HDL Cholesterol 46 39859784 >39 mg/dL ----Triglycerides 119 54562620 0-149 mg/dL ROUTINE VENIPUNCTURE TSH ----TSH 4.960 [id number] 0.450-4.500 uIU/mL H CMP ----Potassium, Serum 3.5 44254504 3.5-5.2 mmol/L ----Sodium, Serum 141 68030489 134-144 mmol/L ----BUN/Creatinine Ratio 13 16146254 9-23 ----eGFR If Africn Am 96 [id number] >59 mL/min/1.73 ----eGFR If NonAfricn Am 83 [id number] >59 mL/min/1.73 ----Creatinine, Serum 0.83 10617767 0.57-1.00 mg/dL ----BUN 11 73203280 6-24 mg/dL ----Glucose, Serum 99 94114242 65-99 mg/dL ----AST (SGOT) 27 [id number] 0-40 IU/L ----Globulin, Total 2.6 84224474 1.5-4.5 g/dL ----ALT (SGPT) 23 41316391 0-32 IU/L ----A/G Ratio 1.6 20160224 1.1-2.5 ----Bilirubin, Total 0.3 20160224 0.0-1.2 mg/dL ----Alkaline Phosphatase, S 81 20160224 39-117 IU/L ----Carbon Dioxide, Total 29 20160224 18-29 mmol/L ----Calcium, Serum 9.0 20160224 8.7-10.2 mg/dL ----Protein, Total, Serum 6.8 20160224 6.0-8.5 g/dL ----Albumin, Serum 4.2 20160224 3.5-5.5 g/dL ----Chloride, Serum 95 20160224 97-108 mmol/L L Summary Purpose eClinicalWorks Submission
--- OUTSIDE RECORDS SUMMARY | 2018-03-15 11:25 | XMS REPORT ---
Author Author HERBERT MCGOWAN [facility] Address [address] [place] [address] Care Team Providers Care Proposition Player Name Role Phone HERBERT MCGOWAN Unavailable PROBLEMS Type Condition ICD9-CM Code [id number] Code Onset Dates Condition Status SNOMED Code Problem Chronic pain G89.29 Active 75650527 Problem Social anxiety disorder F40.10 Active 88547600 Problem Encounter for dental examination and cleaning without abnormal findings Z01.20 Active 219954852 Problem Essential hypertension I10 Active 43236400 Problem Psoriasis L40.9 Active 1202776 Problem Acquired hypothyroidism E03.9 Active 755327103 Problem Obstructive sleep apnea G47.33 Active 89184352 Problem Morbid obesity, unspecified obesity type E66.01 Active 155447660 Problem Gastro-esophageal reflux disease without esophagitis K21.9 Active 250596687 Problem Pelvic pain R10.2 Active 06646334 Problem Bilateral low back pain with sciatica, sciatica laterality unspecified M54.40 Active 095442281 Problem Borderline personality disorder F60.3 Active 92481169 Problem Bipolar disorder F31.9 Active 50470046 Problem Visual disturbance H53.9 Active 60887500 Problem Overdose T50.901A Active 19345565 Problem Posttraumatic stress disorder F43.10 Active 80655876 Problem Bipolar 1 disorder F31.9 Active 983920768 ALLERGIES Substance Reaction Event Type Date Status Sulfamethoxazole-Trimethoprim Unknown Drug Allergy Jun, Active Iodine Unknown Drug Allergy Jun, Active Codeine Sulfate Unknown Drug Allergy Jun, Active Aspirin Unknown Drug Allergy Jun, Active shell fish Unknown Non Drug Allergy Jun, Active IVP dye Unknown Non Drug Allergy Jun, Active tape Unknown Non Drug Allergy Jun, Active strawberries Unknown Non Drug Allergy Jun, Active tomatoes Unknown Non Drug Allergy Jun, Active SOCIAL HISTORY Never Assessed PLAN OF CARE Activity Details Follow Up 4 Weeks Reason:wt management VITAL SIGNS Height 62 in 2016-06-17 Weight 260.0 lbs 2016-06-17 Temperature 98.8 degrees Fahrenheit 2016-06-17 Heart Rate 88 bpm 2016-06-17 Respiratory Rate 20 2016-06-17 BMI 47.55 kg/m2 2016-06-17 Blood pressure systolic 130 mmHg 2016-06-17 Blood pressure diastolic 68 mmHg 2016-06-17 MEDICATIONS Medication Instructions Dosage Frequency Start Date End Date Duration Status Cymbalta 30 MG Orally Once a day with Cymbalta 60mg. Total dose 90mg 1 capsule along with 60mg Active Creon 82185 UNIT Orally 3 times a day 1 capsule before meals 8h Nov, 90 days Active Losartan Potassium-HCTZ 50-12.5 MG Orally Once a day 1 tablet 24h Active Cymbalta 60 mg Orally Once a day with Cymbalta 30mg. Total dose is 90mg 1 capsule Active Dicyclomine HCl 20 mg Orally Four times a day 1 tablet 6h 30 days Active Oxygen 2 L/NC Active Carafate 1 GM Orally 4 times a day 1 tablet on an empty stomach 6h 90 days Active Protonix 20 mg Orally Once a day 1 tablet 24h Oct, 90 days Active Loratadine 10 mg Orally 2 times a day 1 tablet 12h September, 90 days Active Atorvastatin Calcium 20 MG Orally Once a day 1 tablet 24h Active Combivent Respimat 20-100 MCG/ACT Inhalation Four times a day 1 puff 6h Active Gabapentin 300 MG Orally 3 times a day 1 tablet 8h Active Contrave 8-90 MG Orally 1 tab twice day 1/2 tab daily at hs for 5 days, 1/2 tab twice a day for 5 days, 1/2 tab in AM and 1 tabat hs for 5 days Jun, Aug, 30 day(s) Active Sumatriptan 5 mg by oral route Once a day 1 tablet 24h Active Doxepin HCl 10 mg Orally Once at bedtime for sleep 1 capsule at bedtime September, Active Tizanidine HCl 2 MG Orally 2 times a day 1 tablet as needed 12h Feb, 90 days Active Lamotrigine 150 MG Orally Once a day 1 tablet 24h Active Levothyroxine Sodium 50 MCG Orally Once a day 1 tablet on an empty stomach in the morning Once a day Orally 30 day(s) 24h Active RESULTS Name Result Date Reference Range TSH 2016-06-17 TSH 3.110 0.450-4.500 PROCEDURES Procedure Date Ordered Result Body [facility] Jun 17, 2016 VENIPUNCT, ROUTINE* Jun 17, 2016 IMMUNIZATIONS No Known Immunizations MEDICAL (GENERAL) [...] hernia Hospitalization History Went by ambulance to [place] as unresponsive 05/2015 Hospitalization History [place] sent her to [facility] for a psych hold 05/2015
--- OUTSIDE RECORDS SUMMARY | 2018-03-15 11:25 | XMS REPORT ---
Author Author HERBERT MCGOWAN [facility] Address [address] [place] [address] Care Team Providers Care Director Account Management Name Role Phone HERBERT MCGOWAN Unavailable PROBLEMS Type Condition ICD9-CM Code [id number] Code Onset Dates Condition Status SNOMED Code Problem Chronic pain G89.29 Active 31786790 Problem Social anxiety disorder F40.10 Active 62237262 Problem Encounter for dental examination and cleaning without abnormal findings Z01.20 Active 866013810 Problem Essential hypertension I10 Active 81505340 Problem Psoriasis L40.9 Active 6951926 Problem Acquired hypothyroidism E03.9 Active 023708617 Problem Obstructive sleep apnea G47.33 Active 19212964 Problem Morbid obesity, unspecified obesity type E66.01 Active 499942680 Problem Gastro-esophageal reflux disease without esophagitis K21.9 Active 679157201 Problem Pelvic pain R10.2 Active 58881839 Problem Bilateral low back pain with sciatica, sciatica laterality unspecified M54.40 Active 386908073 Problem Borderline personality disorder F60.3 Active 42267670 Problem Bipolar disorder F31.9 Active 13602514 Problem Visual disturbance H53.9 Active 61885387 Problem Overdose T50.901A Active 36642326 Problem Posttraumatic stress disorder F43.10 Active 60744622 Problem Bipolar 1 disorder F31.9 Active 410066899 ALLERGIES No Information SOCIAL HISTORY Never Assessed [...] hernia Hospitalization History Went by ambulance to [place] as unresponsive 05/2015 Hospitalization History [place] sent her to [facility] for a psych hold 05/2015
--- OUTSIDE RECORDS SUMMARY | 2018-03-15 11:26 | XMS REPORT ---
Author Author HERBERT MCGOWAN [facility] Address [address] [place] [address] Care Team Providers [employer] Name Role Phone HERBERT MCGOWAN Unavailable PROBLEMS Type Condition ICD9-CM Code HAQ58-AQ Code Onset Dates Condition Status SNOMED Code Problem Psoriasis L40.9 Active 9321686 Problem Relationship problem with family member Z63.8 Active 237292397 Problem Essential hypertension I10 Active 65047576 Problem Anxiety F41.9 Active 83262558 Problem Visual disturbance H53.9 Active 21892487 Problem Rheumatoid arthritis involving multiple sites with positive rheumatoid factor M05.79 Active 386204520 Problem Bilateral low back pain with sciatica, sciatica laterality unspecified M54.40 Active 356697605 Problem Pelvic pain R10.2 Active 86331882 Problem Other chronic pain G89.29 Active 97474763 Problem Lumbago with sciatica, left side M54.42 Active 821762496 Problem 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 Active 023999568 Problem Blindness of right eye H54.40 Active 026960839 Problem Bipolar disorder F31.9 Active 28020623 Problem Overdose T50.901A Active 16936810 Problem Borderline personality disorder F60.3 Active 18435898 Problem Posttraumatic stress disorder F43.10 Active 04472104 Problem Obstructive sleep apnea G47.33 Active 90182769 Problem Acquired hypothyroidism E03.9 Active 835555674 Problem Chronic pain G89.29 Active 80680066 Problem Gastro-esophageal reflux disease without esophagitis K21.9 Active 483011560 Problem Social anxiety disorder F40.10 Active 10506910 Problem Morbid obesity, unspecified obesity type E66.01 Active [id number] ALLERGIES No Information ENCOUNTERS Encounter Location Date Diagnosis [facility] [address] [facility] [id number] [place] [address] Nov, [facility] [address] [address] 4[address] Nov, [facility] [address] [address] Nov, [facility] [address] [address] 1267 Oct, Serpiginous choroiditis H31.22 [place] [address] [id number] [id number] Oct, [facility] [address] [place] [address] 75566- 6403 Oct, [facility] [address] [place] [address] 15644- 3282 Oct, [place] [address] [address] 2501 Oct, Bipolar disorder F31.9 ; Posttraumatic stress disorder F43.10 and Borderline personality disorder F60.3 [place] [address] [address] 5538 Oct, Rheumatoid arthritis involving multiple sites with positive rheumatoid factor M05.79 ; Serpiginous choroiditis H31.22 and Anxiety F41.9 [place] [address] [address] 14[address] Oct, [place] [address] [address] 5558 September, Serpiginous choroiditis H31.22 [facility] [address] [place] [address] 22240- 0232 September, Bipolar disorder F31.9 ; Posttraumatic stress disorder F43.10 and Borderline personality disorder F60.3 [facility] [address] [address] 7357 Aug, BMI 40.0-44.9, adult Z68.41 ; Bipolar disorder F31.9 ; Posttraumatic stress disorder F43.10 and Social anxiety disorder F40.10 [place] [id number] [place] [address] 66528- 4700 Aug, Bipolar disorder F31.9 ; Posttraumatic stress disorder F43.10 and Borderline personality disorder F60.3 [facility] [id number] [place] [address] 18668- 9732 Aug, Serpiginous choroiditis H31.22 [facility] [address] [address]- 5952 Jul, Bipolar disorder F31.9 ; Posttraumatic stress disorder F43.10 and Borderline personality disorder F60.3 [facility] [id number] [place] [address] 68762- 3801 Jul, [facility] [id number] [place] [address] 56495- 4055 Jun, Bipolar disorder F31.9 ; Posttraumatic stress disorder F43.10 and Borderline personality disorder F60.3 [facility] [id number] [place] [address] 32371- 2518 Jun, Blindness of right eye H54.40 and Acquired hypothyroidism E03.9 [facility] [address] 69243- 4647 Jun, [facility] [id number] [place] [address] 26186- 5368 May, Posttraumatic stress disorder F43.10 ; Social anxiety disorder F40.10 and Bipolar disorder F31.9 [facility] [id number] [place] [address] 97728- 9725 May, Bipolar disorder F31.9 ; Posttraumatic stress disorder F43.10 and Borderline personality disorder F60.3 [facility] [id number] [place] [address] 29439- 1212 May, [facility] [id number] [place] [address] 78058- 4128 May, [facility] [address] 83766- 3898 Apr, Bipolar disorder F31.9 ; Posttraumatic stress disorder F43.10 and Borderline personality disorder F60.3 [facility] [address] [id number] [id number] Apr, [facility] [address] [place] [address] 05910- 5359 Apr, [place] [address] [place] [address] 28189- 7773 Mar, Hydradenitis L73.2 [place] [id number] [place] [address] 23106- 6949 15 Mar, 2017 Lumbago with sciatica, left side M54.42 ; Other chronic pain G89.29 ; Morbid obesity, unspecified obesity type E66.01 ; Hydradenitis L73.2 and BMI 40.0-44.9, adult Z68.41 [place] [address] [place] [address] 14484- 8735 Mar, Bipolar disorder F31.9 ; Posttraumatic stress disorder F43.10 and Borderline personality disorder F60.3 [place] [address] [place] [address] 65990- 5759 Mar, Social anxiety disorder F40.10 ; Bipolar disorder F31.9 and Relationship problem with family member Z63.[address] [address] 23[address] Mar, [place] [address] [id number] [id number] Mar, Dental examination Z01.20 [place] [address] [place] [address] 35893- 1818 Mar, [place] [address] [place] [address] 67992- 7026 Feb, Bipolar disorder F31.9 ; Posttraumatic stress disorder F43.10 and Borderline personality disorder F60.3 [facility] [address] [id number] Feb, [facility] [address] [address]- 2319 Jan, Bipolar disorder F31.9 ; Posttraumatic stress disorder F43.10 and Borderline personality disorder F60.3 [facility] [address] [id number] [id number] Jan, [facility] [address] [address] 6270 Jan, [facility] [address] [facility] [id number] [id number] Jan, [facility] [address] [place] [address] 73400- 5432 Dec, Bipolar disorder F31.9 ; Posttraumatic stress disorder F43.10 and Borderline personality disorder F60.3 [facility] [address] [address]- 7443 Dec, [facility] [address] [address]- 9660 Dec, [facility] [id number] [address] Dec, [facility] [address] [address]- 2726 Nov, Bipolar 1 disorder F31.9 ; Posttraumatic stress disorder F43.10 and Social anxiety disorder F40.10 [facility] [address] [address]- 4166 Nov, Bipolar disorder F31.9 ; Posttraumatic stress disorder F43.10 and Borderline personality disorder F60.3 [facility] [address] [address]- 7998 Nov, Morbid obesity, unspecified obesity type E66.01 [facility] [id number] [address]- 6139 Nov, [facility] [address] [id number] [place] [id number] 19 Oct, 2016 Encounter for dental examination and cleaning without abnormal findings Z01.20 [place] [id number] [place] [address] 51120- 4216 15 Oct, 2016 Morbid obesity, unspecified obesity type E66.01 and Acute seasonal allergic rhinitis due to pollen J30.1 [place] [id number] [place] [address] 53201- 6005 08 Oct, 2016 Bipolar disorder F31.9 ; Posttraumatic stress disorder F43.10 and Borderline personality disorder F60.3 [place] [id number] [place] [address] 61275- 7851 September, Morbid obesity, unspecified obesity type E66.01 and Psoriasis L40.9 [place] [id number] [place] [address] 18117- 0942 September, Bipolar disorder F31.9 ; Posttraumatic stress disorder F43.10 and Borderline personality disorder F60.3 [place] [id number] [place] [address] 76882- 4619 September, Chronic pain G89.29 [place] [id number] [place] [address] 08167- 6883 Aug, Other acute nonsuppurative otitis media of right ear H65.191 and Morbid obesity, unspecified obesity type E66.01 [place] [address] [place] [address] 74155- 5344 Aug, Bipolar 1 disorder F31.9 ; Posttraumatic stress disorder F43.10 and Social anxiety disorder F40.10 [place] [id number] [place] [address] 18341- 6964 Aug, Bipolar disorder F31.9 ; Posttraumatic stress disorder F43.10 and Borderline personality disorder F60.3 [place] [address] [place] [address] 69763- 9468 Jul, Morbid obesity due to excess calories E66.01 ; Gastro- esophageal reflux disease without esophagitis K21.9 and Chronic pain G89.29 [facility] [address] [address]- 8181 Jul, Morbid obesity due to excess calories E66.01 [facility] [address] [address]- 7266 Jul, [facility] [id number] [place] [address] 69460- 5442 Jul, [facility] [id number] [place] [address] 66950- 8099 Jul, Morbid obesity due to excess calories E66.01 [facility] [id number] [place] [address] 44775- 0647 Jul, Bipolar disorder F31.9 ; Posttraumatic stress disorder F43.10 and Borderline personality disorder F60.3 [facility] [address] [place] [address] 52302- 7198 Jun, [facility] [address] [place] [address] 46555- 3063 Jun, Morbid obesity due to excess calories E66.01 [facility] [address] [place] [address] 94694- 4801 Jun, [facility] [address] [address]- 9150 Jun, Morbid obesity, unspecified obesity type E66.01 [facility] [address] [address]- 3388 Jun, Bipolar disorder F31.9 ; Posttraumatic stress disorder F43.10 and Borderline personality disorder F60.3 [facility] [address] [place] [address] 35064- 6849 Jun, [facility] [address] [address]- 9306 Jun, [facility] [id number] [place] [address] 60879- 3461 02 Jun, 2016 Acquired hypothyroidism E03.9 and Morbid obesity due to excess calories E66.01 [place] [id number] [place] [address] 65636- 3445 May, Bipolar disorder F31.9 ; Posttraumatic stress disorder F43.10 and Borderline personality disorder F60.3 [place] [id number] [place] [address] 43264- 6561 Apr, Bipolar 1 disorder F31.9 ; Posttraumatic stress disorder F43.10 and Social anxiety disorder F40.[address] [id number] [id number] 12 Apr, 2016 Encounter for dental examination Z01.20 [place] [id number] [place] [address] 04886- 6518 08 Apr, 2016 [place] [id number] [place] [address] 24453- 6194 Apr, Acquired hypothyroidism E03.9 [place] [id number] [place] [address] 80782- 4967 Apr, Acquired hypothyroidism E03.9 [place] [id number] [place] [address] 54532- 3861 07 Apr, 2016 Bipolar disorder F31.9 ; Posttraumatic stress disorder F43.10 and Borderline personality disorder F60.3 [place] [address] [place] [address] 70076- 6800 Apr, Acquired hypothyroidism E03.[address] [id number] [id number] Mar, Encounter for dental examination and cleaning without abnormal findings Z01.20 [facility] [address] [place] [address] 02945- 1087 08 Mar, 2016 [place] [address] [place] [address] 38470- 7976 08 Mar, 2016 Bipolar disorder F31.9 ; Posttraumatic stress disorder F43.10 and Borderline personality disorder F60.3 [facility] [address] [place] [address] 79642- 9170 Mar, Essential (primary) hypertension I10 [facility] [address] [id number] [place] [address] 73190- 2856 Feb, [facility] [address] [place] [id number] [place] [address] 06418- 0772 14 Feb, 2016 [facility] [address] [id number] [place] [address] 63269- 9694 11 Feb, 2016 Pelvic pain R10.2 ; Lipid screening Z13.220 ; Fatigue, unspecified type R53.83 and Weight gain R63.5 [place] [id number] [place] [address] 10250- 4019 11 Feb, 2016 Bipolar disorder F31.9 ; Posttraumatic stress disorder F43.10 and Borderline personality disorder F60.3 [place] [id number] [place] [address] 14764- 8897 07 Feb, 2016 [facility] [address] [id number] [place] [address] 55656- 0077 05 Feb, 2016 [facility] [id number] [place] [address] 15981- 2618 30 Jan, 2016 Obstructive sleep apnea syndrome G47.33 [facility] [id number] [place] [address] 99881- 8844 26 Jan, [address] [place] [id number] [id number] 19 Jan, 2016 Dental examination Z01.20 [facility] [id number] [place] [address] 04435- 0179 13 Jan, 2016 Bipolar 1 disorder F31.9 ; Posttraumatic stress disorder F43.10 and Social anxiety disorder F40.10 [facility] [address] [place] [address] 48173- 0212 13 Jan, 2016 Bipolar disorder F31.9 ; Posttraumatic stress disorder F43.10 and Borderline personality disorder F60.3 [facility] [address] [address]- 4086 Jan, Sciatica of left side M54.32 [facility] [id number] [address] 2546 Jan, [facility] [address] [place] [address] 43573- 2056 Dec, [facility] [address] [place] [address] 30660- 5666 Dec, [facility] [id number] [place] [address] 94594- 8240 Dec, Bipolar disorder F31.9 ; Posttraumatic stress disorder F43.10 and Borderline personality disorder F60.3 [facility] [address] [place] [address] 21052- 0657 Nov, [facility] [address] [place] [address] 30221- 7778 Nov, Insomnia, unspecified type G47.00 [facility] [address] [place] [address] 71448- 3820 Nov, Bipolar disorder F31.9 ; Posttraumatic stress disorder F43.10 and Borderline personality disorder F60.3 [facility] [address] [address]- 6676 Nov, [facility] [address] [address] 2546 Nov, [facility] [id number] [place] [address] 73525- 7160 Oct, Bipolar disorder F31.9 ; Posttraumatic stress disorder F43.10 and Borderline personality disorder F60.3 [facility] [address] [address]- 3516 Oct, [facility] [id number] [place] [address] 05914- 5629 Oct, Essential (primary) hypertension I10 [facility] [id number] [place] [address] 84694- 2131 September, Bipolar 1 disorder F31.9 ; Posttraumatic stress disorder F43.10 and Social anxiety disorder F40.10 [facility] [id number] [place] [address] 81582- 7117 September, Bipolar disorder F31.9 ; Posttraumatic stress disorder F43.10 and Borderline personality disorder F60.[address] [place] [id number] [id number] September, Encounter for dental examination and cleaning without abnormal findings Z01.20 [place] [id number] [place] [address] 98330- 2521 September, [facility] [id number] [place] [address] 85709- 7215 September, [facility] [id number] [place] [address] 71941- 8838 Aug, [place] [id number] [place] [address] 31026- 6206 Aug, Bipolar disorder F31.9 ; Posttraumatic stress disorder F43.10 and Borderline personality disorder F60.3 [place] [id number] [place] [address] 84051- 4123 Aug, [facility] [id number] [place] [address] 39625- 5311 Aug, [facility] [address] [place] [address] 04435- 0003 Aug, [place] [id number] [place] [address] [id number] Jul, Acute nasopharyngitis [common cold] J00 and Other viral agents as the cause of diseases classified elsewhere B97.89 [facility] [id number] [place] [address] 56602- 1866 24 Jul, 2015 Chronic pain G89.29 and Allergic rhinitis J30.9 [facility] [address] [place] [address] 61948- 8382 24 Jul, 2015 Bipolar 1 disorder F31.9 ; Posttraumatic stress disorder F43.10 and Social anxiety disorder F40.10 [facility] [address] [place] [address] 53758- 5376 16 Jul, 2015 Bipolar 1 disorder F31.9 [facility] [id number] [place] [address] 68247- 3329 16 Jul, 2015 Bipolar disorder F31.9 ; Posttraumatic stress disorder F43.10 and Borderline personality disorder F60.3 [facility] [id number] [place] [address] 51747- 4137 14 Jul, 2015 [facility] [id number] [place] [address] 15160- 8726 14 Jul, 2015 [facility] [id number] [place] [address] 08034- 3680 11 Jul, 2015 [facility] [id number] [place] [address] 16059- 3056 10 Jul, 2015 Anxiety F41.9 [facility] [id number] [place] [address] 12707- 3173 10 Jul, 2015 Chronic pain G89.29 and Encounter for therapeutic drug level monitoring Z51.81 [facility] [address] [place] [address] 54496- 4177 09 Jul, 2015 Chronic pain G89.29 and Encounter for therapeutic drug level monitoring Z51.81 [facility] [address] [place] [address] 28365- 0003 08 Jul, 2015 [facility] [id number] [place] [address] 96101- 3381 Jun, [facility] [address] [place] [address] 54789- 0657 Jun, [facility] [address] [address]- 9247 Jun, [facility] [id number] [place] [address] 25800- 8276 Jun, [facility] [id number] [place] [address] 90423- 8645 Jun, High risk medication use V58.69 [facility] [id number] [place] [address] 98353- 8306 Jun, [facility] [id number] [place] [address] 61785- 8237 Jun, Bipolar 1 disorder F31.9 ; Overdose T50.901A and Chronic pain G89.29 [facility] [id number] [place] [address] 95955- 8221 Jun, Bipolar disorder F31.9 ; Posttraumatic stress disorder F43.10 and Borderline personality disorder F60.3 [facility] [address] [place] [address] 79211- 1950 Jun, [facility] [id number] [place] [address] 36061- 3020 Jun, [facility] [address] [place] [address] 29702- 6676 Jun, Keloid L91.0 [facility] [id number] [place] [address] 15912- 1679 Jun, [facility] [address] [place] [address] 69577- 1767 May, [facility] [id number] [place] [address] 27453- 2276 May, [facility] [id number] [place] [address] 69543- 6582 May, Pelvic pain R10.2 [facility] [address] [address] [address] May, [facility] [id number] [place] [address] 66521- 8184 May, Pain of left thumb M79.645 ; Incisional pain R20.8 ; Pelvic pain R10.2 and Essential hypertension I10 [facility] [id number] [place] [address] 13216- [id number] May, [facility] [id number] [place] [address] [id number]- 7512 May, [id number] [id number] May, Dental examination Z01.20 and Necrosis of pulp K04.1 [facility] [id number] [place] [address] 69429- [phone] Apr, [facility] [id number] [place] [address] [id number]- [phone] Apr, [facility] [id number] [place] [address] 32745- 5450 Apr, [facility] [id number] [place] [address] 92527- 6821 Apr, [facility] [id number] [place] [address] 73436- 3110 Apr, [facility] [id number] [place] [address] 47822- 2361 Apr, [facility] [id number] [place] [address] 08386- 2832 Apr, [facility] [id number] [place] [address] 94592- [phone] Apr, [facility] [id number] [place] [address] 62520- 8874 Mar, [facility] [id number] [place] [address] 83973- [phone] Mar, [facility] [address] [facility] [id number] [address]- 7441 Mar, [facility] [address] [facility] [id number] [address] 1733 Mar, [facility] [address] [facility] [id number] [address] Feb, [facility] [address] [facility] [id number] [place] [address] 64[address] Feb, [facility] [address] [facility] [id number] [place] [address] 3408 Feb, [facility] [id number] [place] [address] 322942- 0736 Feb, [facility] [address]00565100[place] [address] 0271 Feb, [facility] [address]00565100[place] [address] 4772 Feb, [facility] [address]00565100[place] [address] 8244 Feb, [facility] [address]00565100[place] [address] 9614 Feb, Dermatofibroma of left lower leg D23.72 [facility] [address]00565100[place] [address] 3741 Feb, Hematochezia 578.1 ; Low back pain M54.5 ; High risk medication use V58.69 ; Cervicalgia M54.2 and Anxiety F41.[address] [id number] [place] [id number] Feb, Dental examination Z01.20 ; Pulpitis K04.0 and Dental caries, unspecified K02.9 [facility] [address] [id number] [place] [id number] Feb, Dental examination Z01.20 [facility] [address] [id number] [place] [address] 70[address] Jan, [facility] [address] [id number] [place] [address] 6[address] Jan, [facility] [address] [id number] [place] [address] 1558 Jan, [facility] [address] [id number] [place] [address] 8396 Jan, [facility] [address] [id number] [place] [address] 7675 Dec, [facility] [address] [id number] [place] [address] 5544 Dec, [facility] [address] [id number] [place] [address]- 2395 Dec, [facility] [address] [id number] [place] [address] 2566 Dec, [facility] [address] [id number] [place] [address] 1460 Dec, [facility] [address] [id number] [address]- 1146 Dec, [facility] [address] [id number] [place] [address] 9505 Dec, [facility] [address] [id number] [place] [address] 3818 Dec, [facility] [address] [id number][place] [id number] Nov, Encounter for removal of sutures V58.32 [facility] [address] [id number] [place] [address] 2962 Nov, [facility] [address] [id number] [place] [address] 8230 Nov, [facility] [address] [id number] [address] 1184 Nov, [facility] [address]00565100[place] [address] 5455 Nov, [facility] [address]00565100[place] [address] 1273 Nov, [facility] [address]00565100[place] [address]- 5979 Nov, [facility] [address]00565100[place] [address]- 8221 Nov, [facility] [id number] [place] [address]- 2461 Nov, Dermatofibroma 216.9 [facility] [address]00565100[place] [address]- 6752 Nov, [facility] [address]00565100[place] [address]- 4400 Nov, [facility] [address]00565100[place] [address]- 6054 Oct, [facility] [address]00565100[place] [address] 1839 Oct, Hematochezia 578.1 ; Abscess 682.9 ; GERD (gastroesophageal reflux disease) 530.81 ; Visual disturbance of one eye 368.9 and High risk medication use V58.69 [facility] [address]00565100[place] [address]- 1646 Oct, [facility] [address]00565100[place] [address]- 8625 Oct, [facility] [address]00565100[place] [address]- 0245 Oct, [facility] [address] [id number] [address]- 0922 September, [facility] [address]00565100[place] [address]- 5737 September, [facility] [address] [id number] [place] [address]- 9448 September, [facility] [address] [facility] [id number] [place] [address]- 9211 September, [facility] [address] [facility] [id number] [place] [address] September, [facility] [address] [facility] [id number] [place] [address] September, Colon cancer screening V76.51 [facility] [address] [facility] [id number] [place] [address]- 7270 September, [facility] [address] [id number] [place] [address]- 2358 Aug, [facility] [address] [id number] [place] [address] Aug, [facility] [address] [facility] [id number] [place] [address]- 3849 Jul, [facility] [place] [facility] [address] [facility] [id number] [place] [address]- 8548 Jul, [facility] [address] [facility] [id number] [place] [address]- 0506 Jul, [facility] [place] [facility] [address] [facility] [id number] [place] [address]- 7832 Jul, [facility] [place] [facility] [address] [facility] [id number] [place] [address]- 7507 Jun, [facility] [place] [facility] [address] [facility] [id number] [place] [address]- 2902 Jun, [facility] [place] [facility] [address] [facility] [id number] [place] 2933 Jun, [facility] [place] [facility] [address] [id number] [place] 8250 Jun, [facility] [place] [facility] [address] [id number] [place] [address]- 5705 Jun, [facility] [place] [facility] [address] [id number] [place] [address]- 3170 Jun, [facility] [place] [facility] [address] [id number] [place] [address]- 8249 May, [facility] [place] [facility] [address] [id number] [place] [address]- 6136 May, [facility] [place] [facility] [address] [id number] [place] [address]- 8061 May, [facility] [place] [facility] [address] [id number] [place] [address]- 0198 May, [facility] [place] [facility] [address] [id number] [place] [address]- 7992 May, [facility] [place] [facility] [address] [id number] [place] [address]- 4247 May, [facility] [place] [facility] [address] [id number] [place] [address]- 1115 May, [facility] [place] [facility] [address] [id number] [place] [address]- 6620 May, [facility] [place] [facility] [address] [id number] [place] [address]- 4772 Apr, [facility] [place] [facility] [address] [id number] [place] [address]- 2317 Apr, [facility] [place] [facility] [address] [id number] [place] [address]- 2441 Apr, [facility] [place] [facility] [address] [id number] [place] [address]- 3926 Apr, [facility] [place] [facility] [address] [id number] [place] [address]- 4030 Apr, [facility] [place] [facility] [address] [id number] [place] [address]- 8292 Apr, [facility] [place] [facility] [address] [id number] [place] [address]- 8248 Apr, [facility] [place] [facility] [address] [id number] [place] [address]- 3035 Apr, [facility] [place] [facility] [address] [id number] [place] [address]- 2057 Mar, [facility] [place] [facility] [address] [id number] [place] [address]- 2408 Mar, [facility] [place] [facility] [address] [id number] [place] [address]- 1969 Mar, [facility] [place] [facility] [address] [id number] [place] [address]- 0016 Mar, [facility] [place] [facility] [address] [id number] [place] [address]- 0428 Mar, [facility] [place] [facility] [address] [id number] [place] [address]- 4688 Mar, [facility] [place] [facility] [address] [id number] [place] [address]- 8413 Mar, [facility] [place] [facility] [address] [facility] [id number] [place] [address]- 9847 Mar, [facility] [place] [facility] [address] [id number] [place] [address]- 4282 Mar, [facility] [place] [facility] [address] [id number] [place] [address]- 7768 Mar, [facility] [place] [facility] [address] [id number] [place] [address]- 5120 Feb, [facility] [place] [facility] [address] [id number] [place] [address]- 8962 Feb, [facility] [place] [facility] [address] [id number] [place] [address]- 5005 Jan, [facility] [place] [facility] [address] [id number] [place] [address]- 6785 Jan, [facility] [place] [facility] [address] [id number] [place] [address]- 9459 Jan, [facility] [place] [facility] [address] [id number] [place] [address]- 2855 Jan, [facility] [place] [facility] [address] [id number] [place] [address]- 3734 Dec, [facility] [place] [facility] [address] [id number] [place] [address]- 7724 Dec, [facility] [place] [facility] [address] [id number] [place] [address]- 5047 Dec, [facility] [place] [facility] [address] [id number] [place] [address]- 9622 Dec, [facility] [place] [facility] [address] [id number] [place] [address]- 9577 Dec, [facility] [place] [facility] [address] [id number] [place] [address]- 7365 Dec, [facility] [place] [facility] [address] [id number] [place] [address]- 6169 Nov, [facility] [place] [facility] [address] [id number] [place] [address]- 3889 Nov, [facility] [place] [facility] [address] [id number] [place] [address]- 2471 Oct, [facility] [place] [facility] [address] [id number] [place] [address]- 1733 Oct, [facility] [place] [facility] [address] [id number] [place] [address]- 8288 Oct, [facility] [place] [facility] [address] [id number] [place] [address]- 8138 Oct, [facility] [place] [facility] [address] [id number] [place] [address]- 0783 September, [facility] [place] [facility] [address] [id number] [place] [address]- 6438 September, [facility] [place] [facility] [address] [id number] [place] [address]- 9159 September, [facility] [place] [facility] [address] [id number] [place] [address]- 3079 September, [facility] [place] [facility] [address] [id number] [place] [address]- 7941 September, [facility] [place] [facility] [address] [id number] [place] [address]- 6962 September, [facility] [place] [facility] [address] [id number] [place] [address]- 6351 September, [facility] [place] [facility] [address] [id number] [place] [address]- 9699 September, [facility] [place] [facility] [address] [id number] [place] [address]- 0685 Aug, [facility] [place] [facility] [address] [id number] [place] [address]- 5213 Aug, [facility] [place] [facility] [address] [id number] [place] [address]- 1920 Aug, [facility] [place] [facility] [address] [id number] [place] [address]- 5430 Aug, [facility] [place] [facility] [address] [id number] [place] [address]- 8764 Aug, [facility] [place] [facility] [address] [id number] [place] [address]- 5620 Aug, [facility] [place] [facility] [address] [id number] [place] [address]- 2255 Jul, [facility] [place] [facility] [address] [id number] [place] [address]- 1762 Jul, [facility] [place] [facility] [address] [id number] [place] [address]- 1981 Jul, [facility] [place] [facility] [address] [id number] [place] [address]- 4209 Jul, [facility] [place] [facility] [address] [id number] [place] [address]- 0426 Jun, [facility] [place] [facility] [address] [id number] [place] [address]- 2996 Jun, [facility] [place] [facility] [address] [id number] [place] [address]- 2194 Jun, [facility] [place] [facility] [address] [id number] [place] [address]- 7483 Jun, [facility] [place] [facility] [address] [id number] [place] [address]- 3126 Jun, [facility] [place] [facility] [address] [id number] [place] [address]- 9308 Jun, [facility] [place] [facility] [address] [id number] [place] [address]- 0233 May, [facility] [place] [facility] [address] [id number] [place] [address]- 4432 May, [facility] [place] [facility] [address] [id number] [place] [address]- 6507 May, [facility] [place] [facility] [address] [id number] [place] [address]- 1498 May, [facility] [place] [facility] [address] [id number] [place] [address]- 4065 May, [facility] [place] [facility] [address] [id number] [place] [address]- 5037 May, [facility] [place] [facility] [address] [id number] [place] [address]- 3811 May, [facility] [place] [facility] [address] [id number] [place] [address]- 6554 May, [facility] [address] [id number] [place] [address]- 6048 16 Apr, 2013 [facility] [place] [id number] 16 Apr, 2013 [facility] [address] [id number] [place] [address]- 0669 16 Apr, 2013 [facility] [address] [id number] [place] [address]- 3267 Apr, [facility] [address] [id number] [place] [address]- 2443 Apr, [facility] [address] [id number] [place] [address]- 9944 Apr, [facility] [address] [id number] [place] [address]- 1359 Apr, [facility] [address] [id number] [place] [address]- 6935 05 Apr, 2013 [facility] [address] [id number] [place] [address]- 2587 Apr, [facility] [address] [id number] [place] [address]- 6735 Mar, [facility] [address] [id number] [place] [address]- 0326 Mar, [facility] [address] [id number] [place] [address]- 8404 Mar, [facility] [address] [id number] [place] [address]- 9200 Mar, [facility] [address] [id number] [place] [address]- 4425 Mar, [facility] [address] [id number] [place] [address]- 7183 Feb, [facility] [address] [id number] [place] [address]- 6813 Feb, [facility] [address] [id number] [place] [address]- 1469 Feb, [facility] [place] [facility] [address] [id number] [place] [address]- 0315 Feb, [facility] [address] [id number] [place] [address]- 0108 Jan, [facility] [place] [facility] [address] [id number] [place] [address]- 4215 Jan, [facility] [address] [id number] [place] [address]- 2465 Jan, [facility] [place] [facility] [address] [id number] [place] [address]- 2517 Dec, [facility] [address] [id number] [place] [address]- 7462 Dec, [facility] [address] [id number] [place] [address]- 0381 Dec, [facility] [address] [id number] [address] Nov, [facility] [address] [facility] [id number][place] [id number] Oct, [facility] [address] [id number] [place] [address]- 7574 Oct, [facility] [place] [facility] [address] [id number] [place] [address]- 9459 September, [facility] [place] [facility] [address] [id number] [place] [address]- 0853 September, [facility] [place] [facility] [address] [id number] [place] [address]- 5142 September, [facility] [place] [facility] [address] [id number] [place] [address]- 3435 September, [facility] [place] [facility] [address] [id number] [place] [address]- 1668 September, [facility] [address] [id number] [place] [address]- 3978 Jul, [facility] [place] [facility] [address] [id number] [place] [address]- 8663 Jul, [facility] [address] [id number] [place] [address]- 2175 Jul, [facility] [place] [facility] [address] [id number] [place] [address]- 0292 Jul, [facility] [place] [facility] [address] [id number] [place] [address]- 3108 Jun, [facility] [place] [facility] [address] [id number] [place] [address]- 2360 Jun, [facility] [address] [id number] [place] [address]- 2017 Jun, [facility] [address] [id number] [place] [address]- 5296 Jun, [facility] [address] [id number] [place] [address]- 9042 May, [facility] [address] [id number] [place] [address]- 0725 Mar, [facility] [address] [id number] [place] [address]- 9755 Mar, [facility] [place] [facility] [address] [id number] [place] [address]- 4967 Mar, [facility] [place] [facility] [address] [id number] [place] [address]- 5282 Mar, [facility] [place] [facility] [address] [id number] [place] [address]- 3996 Mar, [facility] [place] [facility] [address] [id number] [place] [address]- 2218 Mar, [facility] [place] [facility] [address] [id number] [place] [address]- 9994 Mar, [facility] [place] [facility] [address] [facility] [id number] [place] [address]- 0716 Mar, [facility] [place] [facility] [address] [facility] [id number] [place] [address]- 2572 Feb, [facility] [place] [facility] [address] [facility] [id number] [place] [address]- 3118 Feb, [facility] [place] [facility] [address] [id number] [place] [address]- 8761 Feb, [facility] [place] [facility] [address] [id number] [place] [address]- 4699 Feb, [facility] [address] [facility] [id number] [place] [address]- 2879 Feb, [facility] [address] [facility] [id number] [place] [address]- 6011 Feb, [facility] [address] [facility] [id number] [place] [address]- 3958 Feb, [facility] [address] [facility] [id number][place] [id number] Jan, [facility] [address] [facility] [id number][place] [id number] Dec, [facility] [id number] [id number] Dec, [facility] [address] [facility] [id number] [place] [address] Nov, [facility] [address] [facility] [id number] [place] [address] Nov, [facility] [address] [facility] [id number] [place] [address] Oct, [facility] [address] [facility] [id number] [place] [address] Jul, [facility] [address] [facility] [id number] [place] [address] Jul, [facility] [address] [facility] [id number] [place] [address] May, [facility] [address] [facility] [id number] [place] [address] May, [facility] [address] [facility] [id number] [place] [address] Nov, [facility] [address] [facility] [id number] [place] [address] Mar, [facility] [address] [facility] [id number] [place] [address] Dec, [facility] [address] [place] [id number] [address] Nov, [facility] [id number] [address] Aug, [facility] [id number] [address] Apr, [facility] [address]65100[place] [address] Apr, [facility] [address] [id number] [address] Mar, [facility] [id number] [address] Feb, [facility] [address] [id number] [address] September, [facility] [id number] [address] Jun, [facility] [address] [facility] [id number] [place] [address] Mar, IMMUNIZATIONS No Known Immunizations SOCIAL HISTORY [...] hernia Hospitalization History Went by ambulance to [place] as unresponsive 05/2015 Hospitalization History [place] sent her to [facility] for a psych hold 05/2015
[2018-03-15 11:27] LABS: ALANINE AMINOTRANSFERASE 20 U/L (0-55); ALBUMIN 4.2 GM/DL (3.2-4.5); ALKALINE PHOSPHATASE 64 U/L (40-136); BILIRUBIN,TOTAL 0.4 MG/DL (0.1-1.0); BUN/CREATININE RATIO 19; CALCIUM 9.5 MG/DL (8.5-10.1); CARBON DIOXIDE 29 MMOL/L (21-32); CHLORIDE 104 MMOL/L (98-107); CHOLESTEROL 155 MG/DL (< 200); CREATININE SERUM 0.85 MG/DL (0.60-1.30); GFR ESTIMATED > 60; GLUCOSE 101 MG/DL (70-105); HDL CHOLESTEROL 40 MG/DL (40-60); POTASSIUM 3.6 MMOL/L (3.6-5.0); SODIUM 142 MMOL/L (135-145); TRIGLYCERIDES 142 MG/DL (<150); VLDL CHOLESTEROL 28 MG/DL (5-40)
--- OUTSIDE RECORDS SUMMARY | 2018-03-15 11:27 | XMS REPORT ---
Author SAMI Marcum [facility] eClinicalWorks Address Unknown Phone Unavailable Care Team Providers Care Front End Web Designer Name Role Phone SAMI SUAREZ Unavailable Allergies [...] patient &/family, 45 minutes, established patient CPT-4 [id number] Feb 24, 2016 Results No Known Results Summary Purpose eClinicalWorks Submission
--- OUTSIDE RECORDS SUMMARY | 2018-03-15 11:27 | XMS REPORT ---
Author Author ANGIE PEGUERO Organization eClinicalWorks Address Unknown Phone Unavailable Care Team Providers Care Dental Ceramist Helper Name Role Phone ANGIE PEGUERO CP Unavailable [...] Instructions Start Date End Date Status Dosage Bactrim DS [facility] [address]-76 800-160 MG Orally 2 times a day Feb 28, 2015 Mar 10, 2015 1 tablet Results No Known Results Summary Purpose eClinicalWorks Submission
--- OUTSIDE RECORDS SUMMARY | 2018-03-15 11:27 | XMS REPORT ---
Author Author HERBERT MCGOWAN Organization e[employer] Address Unknown Phone Unavailable Care Team Providers Care Bass Guitar Teacher Name Role Phone HERBERT MCGOWAN CP Unavailable [...] Start Date End Date Status Dosage Protonix [facility] [address]-38 20 MG Orally Once a day November 05, 2014 1 tablet Results No Known Results Summary Purpose eClinicalWorks Submission
--- OUTSIDE RECORDS SUMMARY | 2018-03-15 11:28 | XMS REPORT ---
Author Author SAMI SUAREZ [facility] eClinicalWorks Address Unknown Phone Unavailable Care Team Providers Care Driver Starting Gate Name Role Phone SAMI SUAREZ Unavailable Allergies [...] Coding System Code Date Psychotherapy, patient &/family, 30 minutes, established patient CPT-4 [id number] Dec 15, 2015 Results No Known Results Summary Purpose eClinicalWorks Submission
--- OUTSIDE RECORDS SUMMARY | 2018-03-15 11:28 | XMS REPORT ---
Author Author HERACLIO ANAND [facility] Address [address] [place] [address] Care Team Providers Care Service Coordinator [facility] Name Role Phone ARMANDO ANANDO Unavailable PROBLEMS Type Condition ICD9-CM Code IGY52-ZE Code Onset Dates Condition Status SNOMED Code Problem Bipolar 1 disorder F31.9 Active 942235504 Problem Social anxiety disorder F40.10 Active 09252216 Problem Encounter for dental examination and cleaning without abnormal findings Z01.20 Active 759281126 Problem Essential hypertension I10 Active 34149126 Problem Psoriasis L40.9 Active 0265664 Problem Acquired hypothyroidism E03.9 Active 641626630 Problem Obstructive sleep apnea G47.33 Active 81301306 Problem Morbid obesity, unspecified obesity type E66.01 Active 482328236 Problem Gastro-esophageal reflux disease without esophagitis K21.9 Active 616726260 Problem Pelvic pain R10.2 Active 05043747 Problem Bilateral low back pain with sciatica, sciatica laterality unspecified M54.40 Active 855889323 Problem Posttraumatic stress disorder F43.10 Active 58222703 Problem Bipolar disorder F31.9 Active 79645292 Problem Visual disturbance H53.9 Active 48298614 Problem Chronic pain G89.29 Active 19646748 Problem Borderline personality disorder F60.3 Active 56707025 Problem Overdose T50.901A Active 40839186 ALLERGIES Substance Reaction Event Type Date Status Sulfamethoxazole-Trimethoprim Unknown Drug Allergy Apr, Active Iodine Unknown Drug Allergy Apr, Active Codeine Sulfate Unknown Drug Allergy Apr, Active Aspirin Unknown Drug Allergy Apr, Active shell fish Unknown Non Drug Allergy Apr, Active IVP dye Unknown Non Drug Allergy Apr, Active tape Unknown Non Drug Allergy Apr, Active strawberries Unknown Non Drug Allergy Apr, Active tomatoes Unknown Non Drug Allergy Apr, Active SOCIAL HISTORY No smoking Hx information available PLAN OF CARE Activity Details Follow Up 6 Months Reason: VITAL SIGNS Heart Rate 83 bpm 2016-04-26 Blood pressure systolic 111 mmHg 2016-04-26 Blood pressure diastolic 67 mmHg 2016-04-26 MEDICATIONS Medication Instructions Dosage Frequency Start Date End Date Duration Status Sucralfate Active Sumatriptan Active Gabapentin Active Doxepin HCl 10 mg Orally Once at bedtime for sleep 1 capsule at bedtime September, Active Dicyclomine HCl 20 mg Orally Four times a day 1 tablet 6h 30 days Active Loratadine 10 mg Orally 2 times a day 1 tablet 12h September, 90 days Active Combivent Respimat 20-100 MCG/ACT Inhalation Four times a day 1 puff 6h Active Atorvastatin Calcium Active Creon 29860 UNIT Orally 3 times a day 1 capsule before meals 8h Nov, 90 days Active Duloxetine HCl Active Lamotrigine 150 MG Orally Once a day 1 tablet 24h Active RESULTS No Results PROCEDURES Procedure Date Ordered Related Diagnosis Body Site PERIODIC ORAL EXAMINATION Apr 26, 2016 RESIN COMPOS - ONE SURFACE ANTERIOR Apr 26, 2016 RESIN COMPOS - 2 SURFACES ANTERIOR Apr 26, 2016 IMMUNIZATIONS No Known Immunizations
--- OUTSIDE RECORDS SUMMARY | 2018-03-15 11:28 | XMS REPORT ---
Author Author CARYL FRANZ Organization [facility] Address [address] [place] [address] Care Team Providers Care Burner Hand Name Role Phone CARYL FRANZ Unavailable PROBLEMS Type Condition ICD9-CM Code WSQ84-IQ Code Onset Dates Condition Status SNOMED Code Problem Gastro-esophageal reflux disease without esophagitis K21.9 Active 959469555 Problem Psoriasis L40.9 Active 8690054 Problem Morbid obesity, unspecified obesity type E66.01 Active 833700379 Problem Serpiginous choroiditis H31.22 Active 979781212 Problem Pelvic pain R10.2 Active 98271957 Problem Blindness of right eye H54.40 Active 011839334 Problem Relationship problem with family member Z63.8 Active 422215205 Problem Essential hypertension I10 Active 27307210 Problem Other chronic pain G89.29 Active 18836560 Problem Lumbago with sciatica, left side M54.42 Active 123326232 Problem Bipolar disorder F31.9 Active 13177898 Problem Posttraumatic stress disorder F43.10 Active 71952241 Problem Bilateral low back pain with sciatica, sciatica laterality unspecified M54.40 Active 888571153 Problem Visual disturbance H53.9 Active 06603496 Problem Overdose T50.901A Active 83211499 Problem Social anxiety disorder F40.10 Active 40395680 Problem Borderline personality disorder F60.3 Active 14009175 Problem Obstructive sleep apnea G47.33 Active 99825621 Problem Chronic pain G89.29 Active 87468166 Problem Acquired hypothyroidism E03.9 Active 811990129 ALLERGIES No Information ENCOUNTERS Encounter Location Date Diagnosis [facility] [id number] [address] Nov, [facility] [id number] [address] Oct, [facility] [id number] [place] [address] 09335- 4826 Oct, [facility] [id number] [place] [address] 85131- 3723 September, Serpiginous choroiditis H31.22 [facility] [id number] [place] [address] 89976- 5922 September, Bipolar disorder F31.9 ; Posttraumatic stress disorder F43.10 and Borderline personality disorder F60.3 [place] [id number] [place] [address] 07748- 5997 Aug, BMI 40.0-44.9, adult Z68.41 ; Bipolar disorder F31.9 ; Posttraumatic stress disorder F43.10 and Social anxiety disorder F40.10 [place] [id number] [place] [address] 35756- 6198 Aug, Bipolar disorder F31.9 ; Posttraumatic stress disorder F43.10 and Borderline personality disorder F60.3 [place] [id number] [place] [address] 25474- 3588 Aug, Serpiginous choroiditis H31.22 [place] [id number] [place] [address] 99127- 3087 Jul, Bipolar disorder F31.9 ; Posttraumatic stress disorder F43.10 and Borderline personality disorder F60.3 [place] [id number] [place] [address] 08829- 8084 Jul, [place] [id number] [place] [address] 71281- 6137 Jun, Bipolar disorder F31.9 ; Posttraumatic stress disorder F43.10 and Borderline personality disorder F60.3 [place] [id number] [place] [address] 40775- 6819 Jun, Blindness of right eye H54.40 and Acquired hypothyroidism E03.9 [place] [id number] [place] [address] 27407- 1942 Jun, [facility] [address], [place] [address] 34[address] May, Posttraumatic stress disorder F43.10 ; Social anxiety disorder F40.10 and Bipolar disorder F31.9 [facility] [address] [place] [address] 64334- 9960 May, Bipolar disorder F31.9 ; Posttraumatic stress disorder F43.10 and Borderline personality disorder F60.3 [address] [address] [place] [address] 71488- 6428 May, [facility] [address] [place] [address] 27020- 0419 May, [facility] [id number] [place] [address] 18438- 0080 Apr, Bipolar disorder F31.9 ; Posttraumatic stress disorder F43.10 and Borderline personality disorder F60.3 [address] [address] Apr, [place] [address] [place] [address] 09176- 0633 Apr, [place] [id number] [place] [address] 63377- 1445 Mar, Hydradenitis L73.2 [place] [address] [place] [address] 24233- 1682 Mar, Lumbago with sciatica, left side M54.42 ; Other chronic pain G89.29 ; Morbid obesity, unspecified obesity type E66.01 ; Hydradenitis L73.2 and BMI 40.0-44.9, adult Z68.41 [place] [id number] [place] [address] 14540- 0393 Mar, Bipolar disorder F31.9 ; Posttraumatic stress disorder F43.10 and Borderline personality disorder F60.3 [place] [address] [place] [address] 30955- 1140 Mar, Social anxiety disorder F40.10 ; Bipolar disorder F31.9 and Relationship problem with family member Z63.8 [facility] [address] [facility] [id number] [address] Mar, [facility] [address] [id number] [address] Mar, Dental examination Z01.20 [facility] [address] [place] [address] 73710- 5153 Mar, [facility] [id number] [address] 4879 Feb, Bipolar disorder F31.9 ; Posttraumatic stress disorder F43.10 and Borderline personality disorder F60.3 [facility] [id number] [id number] Feb, [facility] [address] [place] [address] 59667- 8465 14 Jan, 2017 Bipolar disorder F31.9 ; Posttraumatic stress disorder F43.10 and Borderline personality disorder F60.3 [facility] [address] [id number][place] [id number] Jan, [facility] [address], [place] [address] 3952 Jan, [facility] [id number] [id number] Jan, [facility] [address], [place] [address] 1332 Dec, Bipolar disorder F31.9 ; Posttraumatic stress disorder F43.10 and Borderline personality disorder F60.3 [facility] [address] [facility] [id number], [place] [address]22 Dec, [facility] [address] [facility] [id number] [address] 8928 Dec, [facility] [address] [facility] [id number] [address] Dec, [address] [place] [address] 57524- 7712 Nov, Bipolar 1 disorder F31.9 ; Posttraumatic stress disorder F43.10 and Social anxiety disorder F40.10 [place] [address] [place] [address] 72272- 9711 Nov, Bipolar disorder F31.9 ; Posttraumatic stress disorder F43.10 and Borderline personality disorder F60.3 [id number] [place] [address] 69190- 6207 Nov, Morbid obesity, unspecified obesity type E66.01 [id number] [place] [address] 87550- 7262 Nov, [address] [address] Oct, Encounter for dental examination and cleaning without abnormal findings Z01.20 [address] [place] [address] 81916- 7405 Oct, Morbid obesity, unspecified obesity type E66.01 and Acute seasonal allergic rhinitis due to pollen J30.1 [address] [place] [address] 22062- 2532 Oct, Bipolar disorder F31.9 ; Posttraumatic stress disorder F43.10 and Borderline personality disorder F60.3 [place] [id number] [place] [address] 79120- 4079 September, Morbid obesity, unspecified obesity type E66.01 and Psoriasis L40.9 [place] [id number] [place] [address] 79310- 7764 September, Bipolar disorder F31.9 ; Posttraumatic stress disorder F43.10 and Borderline personality disorder F60.3 [place] [id number] [place] [address] 34863- 0756 September, Chronic pain G89.29 [address] [place] [address] 40287- 1416 Aug, Other acute nonsuppurative otitis media of right ear H65.191 and Morbid obesity, unspecified obesity type E66.01 [place] [id number] [place] [address] 47812- 3634 Aug, Bipolar 1 disorder F31.9 ; Posttraumatic stress disorder F43.10 and Social anxiety disorder F40.10 [place] [address] 39707- 4760 Aug, Bipolar disorder F31.9 ; Posttraumatic stress disorder F43.10 and Borderline personality disorder F60.3 [place] [id number] [place] [address] 27018- 4251 Jul, Morbid obesity due to excess calories E66.01 ; Gastro- esophageal reflux disease without esophagitis K21.9 and Chronic pain G89.29 [place] [id number] [place] [address] 51296- 6703 Jul, Morbid obesity due to excess calories E66.01 [place] [id number] [place] [address] 71999- 7674 Jul, [place] [address] 98894- 5304 Jul, [place] [id number] [place] [address] 37837- 9771 Jul, Morbid obesity due to excess calories E66.01 [place] [id number] [place] [address] 68794- 3172 Jul, Bipolar disorder F31.9 ; Posttraumatic stress disorder F43.10 and Borderline personality disorder F60.3 [place] [id number] [place] [address] 30970- 1378 Jun, [place] [id number] [place] [address] 38057- 8624 Jun, Morbid obesity due to excess calories E66.01 [place] [id number] [place] [address] 90544- 4677 Jun, [facility] [address] [place] [address] 47624- 6428 09 Jun, 2016 Morbid obesity, unspecified obesity type E66.01 [facility] [address] [place] [address] 09328- 4758 03 Jun, 2016 Bipolar disorder F31.9 ; Posttraumatic stress disorder F43.10 and Borderline personality disorder F60.3 [facility] [address] [place] [address] 40830- 0825 Jun, [facility] [id number] [place] [address] 12280- 6324 Jun, [facility] [id number] [place] [address] 61517- 5454 02 Jun, 2016 Acquired hypothyroidism E03.9 and Morbid obesity due to excess calories E66.01 [place] [address] [place] [address] 47563- 8162 May, Bipolar disorder F31.9 ; Posttraumatic stress disorder F43.10 and Borderline personality disorder F60.3 [place] [address] [place] [address] 51688- 6257 Apr, Bipolar 1 disorder F31.9 ; Posttraumatic stress disorder F43.10 and Social anxiety disorder F40.[address] [id number] [id number] Apr, Encounter for dental examination Z01.20 [facility] [address], [place] [address]- 0931 Apr, [facility] [id number] [place] [address] 93291- 2167 Apr, Acquired hypothyroidism E03.9 [facility] [address] [place] [address] 45529- 3980 Apr, Acquired hypothyroidism E03.9 [facility] [id number] [place] [address] 24081- 7647 07 Apr, 2016 Bipolar disorder F31.9 ; Posttraumatic stress disorder F43.10 and Borderline personality disorder F60.3 [facility] [id number] [place] [address] 57452- 4186 Apr, Acquired hypothyroidism E03.[address] [facility] [address] [id number][place] [id number] Mar, Encounter for dental examination and cleaning without abnormal findings Z01.20 [facility] [id number] [place] [address] 12187- 5112 Mar, [facility] [address] 14368- 2734 Mar, Bipolar disorder F31.9 ; Posttraumatic stress disorder F43.10 and Borderline personality disorder F60.3 [place] [id number] [place] [address] 86205- 0142 Mar, Essential (primary) hypertension I10 [facility] [id number] [place] [address] 40693- 8650 Feb, [facility] [id number] [place] [address] 19417- 2633 Feb, [facility] [id number] [place] [address] 18629- 8166 Feb, Pelvic pain R10.2 ; Lipid screening Z13.220 ; Fatigue, unspecified type R53.83 and Weight gain R63.5 [facility] [id number] [place] [address] 89614- 8644 Feb, Bipolar disorder F31.9 ; Posttraumatic stress disorder F43.10 and Borderline personality disorder F60.3 [facility] [id number] [place] [address] 61410- 2771 Feb, [facility] [id number] [place] [address] 62036- 6423 Feb, [facility] [address] [place] [address] 56468- 8027 30 Jan, 2016 Obstructive sleep apnea syndrome G47.33 [facility] [id number] [place] [address] 02729- 8023 26 Jan, 2016 [facility] [address] [facility] [address] [id number] [id number] 19 Jan, 2016 Dental examination Z01.20 [facility] [id number] [place] [address] 78879- 8019 Jan, Bipolar 1 disorder F31.9 ; Posttraumatic stress disorder F43.10 and Social anxiety disorder F40.10 [place] [id number] [place] [address] 05654- 1054 Jan, Bipolar disorder F31.9 ; Posttraumatic stress disorder F43.10 and Borderline personality disorder F60.3 [facility] [id number] [place] [address] 35071- 5032 Jan, Sciatica of left side M54.32 [facility] [id number] [place] [address] 61844- 2090 Jan, [facility] [id number] [place] [address] 18461- 5992 Dec, [facility] [id number] [place] [address] 12974- 9263 Dec, [facility] [id number] [place] [address] 51218- 9627 Dec, Bipolar disorder F31.9 ; Posttraumatic stress disorder F43.10 and Borderline personality disorder F60.3 [facility] [id number] [place] [address] 44865- 5877 Nov, [facility] [id number] [place] [address] 90178- 8843 Nov, Insomnia, unspecified type G47.00 [facility] [id number] [place] [address] 53534- 7712 Nov, Bipolar disorder F31.9 ; Posttraumatic stress disorder F43.10 and Borderline personality disorder F60.3 [facility] [address] [place] [address] 10326- 6328 Nov, [facility] [address] [place] [address] 79543- 6263 Nov, [facility] [id number] [place] [address] 82417- 2494 Oct, Bipolar disorder F31.9 ; Posttraumatic stress disorder F43.10 and Borderline personality disorder F60.3 [facility] [id number] [place] [address] 86449- 3060 Oct, [facility] [id number] [place] [address] 72445- 5716 Oct, Essential (primary) hypertension I10 [facility] [id number] [place] [address] 14656- 8309 September, Bipolar 1 disorder F31.9 ; Posttraumatic stress disorder F43.10 and Social anxiety disorder F40.10 [facility] [address] [place] [address] 55399- 6478 September, Bipolar disorder F31.9 ; Posttraumatic stress disorder F43.10 and Borderline personality disorder F60.[address] [id number] [id number] September, Encounter for dental examination and cleaning without abnormal findings Z01.20 [facility] [address] [address]- 4081 September, [facility] [id number] [place] [address] 34433- 9168 September, [facility] [address] [place] [address] 54918- 1677 Aug, [facility] [address] [place] [address] 54605- 5443 Aug, Bipolar disorder F31.9 ; Posttraumatic stress disorder F43.10 and Borderline personality disorder F60.3 [facility] [address], [place] [address]- 6207 Aug, [facility] [address] [place] [address] 85942- 7178 Aug, [facility] [address] [place] [address] 35235- 0527 Aug, [id number] [address] 28 Jul, 2015 Acute nasopharyngitis [common cold] J00 and Other viral agents as the cause of diseases classified elsewhere B97.89 [facility] [id number] [place] [address] 28495- 4307 24 Jul, 2015 Chronic pain G89.29 and Allergic rhinitis J30.9 [facility] [id number] [place] [address] 55889- 0672 24 Jul, 2015 Bipolar 1 disorder F31.9 ; Posttraumatic stress disorder F43.10 and Social anxiety disorder F40.10 [facility] [address] [place] [address] 86428- 3002 16 Jul, 2015 Bipolar 1 disorder F31.9 [facility] [address] [place] [address] 52741- 3151 16 Jul, 2015 Bipolar disorder F31.9 ; Posttraumatic stress disorder F43.10 and Borderline personality disorder F60.3 [facility] [address] [place] [address] 49723- 4627 14 Jul, 2015 [facility] [address] [place] [address] 55169- 6079 14 Jul, 2015 [facility] [id number] [place] [address] 21148- 6354 11 Jul, 2015 [facility] [address] [place] [address] 33561- 4833 10 Jul, 2015 Anxiety F41.9 [facility] [address] [address]- 3657 10 Jul, 2015 Chronic pain G89.29 and Encounter for therapeutic drug level monitoring Z51.81 [facility] [id number] [place] [address] 65607- 0860 09 Jul, 2015 Chronic pain G89.29 and Encounter for therapeutic drug level monitoring Z51.81 [facility] [id number] [place] [address] 93197- 6158 08 Jul, 2015 [facility] [id number] [place] [address] 35409- 2265 Jun, [facility] [id number] [place] [address] 71539- 3325 Jun, [facility] [id number] [place] [address] 40439- 4556 Jun, [facility] [id number] [place] [address] 60542- 0863 Jun, [facility] [id number] [place] [address] 36932- 9195 Jun, High risk medication use V58.69 [facility] [id number] [place] [address] 06145- 8229 Jun, [facility] [address] [place] [address] 17552- 2439 Jun, Bipolar 1 disorder F31.9 ; Overdose T50.901A and Chronic pain G89.29 [facility] [address] [place] [address] 97561- 7360 Jun, Bipolar disorder F31.9 ; Posttraumatic stress disorder F43.10 and Borderline personality disorder F60.3 [facility] [address] [place] [address] 53209- 1807 08 Jun, 2015 [facility] [id number] [place] [address] 86937- 3221 Jun, [facility] [address] [address]- 4752 Jun, Keloid L91.0 [facility] [address] [place] [address] 73291- 5706 Jun, [facility] [address] [place] [address] 51725- 4180 May, [facility] [id number] [place] [address] 16827- 3238 May, [facility] [address] [place] [address] 73269- 9640 May, Pelvic pain R10.2 [facility] [address] [place] [address] 75793- 9638 May, [facility] [id number] [place] [address] 25603- 8390 May, Pain of left thumb M79.645 ; Incisional pain R20.8 ; Pelvic pain R10.2 and Essential hypertension I10 [facility] [address] [place] [address] 24385- 3531 May, [facility] [address], [place] [address]- 7120 May, [address] [id number][place] [id number] May, Dental examination Z01.20 and Necrosis of pulp K04.1 [facility] [address] [address] Apr, [facility] [id number] [place] [id number]- [address] Apr, [facility] [id number] [place] [address]- [address] Apr, [facility] [id number] [place] [address]- [address] Apr, [facility] [place] [facility] [address] [id number] [place] [address] Apr, 2014 [facility] [place] [facility] [address] [id number] [place] [address] Apr, [facility] [place] [facility] [address] [facility] [id number] [place] [address] Apr, [facility] [place] [facility] [address] [id number] [place] [address] Apr, [facility] [place] [facility] [address] [id number] [place] [address] Mar, [facility] [place] [facility] [address] [id number] [place] [address] Mar, [facility] [place] [facility] [address] [id number] [place] [address] Mar, [facility] [place] [facility] [address] [id number], [place] [address] Mar, [facility] [place] [facility] [address] [id number] [address] Feb, [facility] [place] [facility] [address] [id number][place] [address] Feb, [facility] [place] [facility] [address] [id number], [place] [address] Feb, 2014 [facility] [place] [facility] [address] [id number][place] [address] Feb, 2014 [facility] [place] [facility] [address] [id number] [address] Feb, [facility] [place] [facility] [address] [id number], [place] [address] 19 Feb, 2014 [facility] [place] [facility] [address] [facility] [id number][place] [address]12 16 Feb, 2014 [facility] [place] [facility] [id number] [place] [address] 74642- 8781 Feb, Dermatofibroma of left lower leg D23.72 [facility] [id number] [place] [address] 96437- 0718 Feb, Hematochezia 578.1 ; Low back pain M54.5 ; High risk medication use V58.69 ; Cervicalgia M54.2 and Anxiety F41.9 [address] [id number] Feb, Dental examination Z01.20 ; Pulpitis K04.0 and Dental caries, unspecified K02.9 [place] [id number] [place] [id number] Feb, Dental examination Z01.20 [facility] [id number] [place] [address] 38693- 6977 Jan, [facility] [id number] [place] [address] 82682- 4625 Jan, [facility] [id number] [place] [address] 83031- 3247 Jan, [facility] [id number] [place] [address] 19467- 9447 Jan, [facility] [id number] [place] [address] 53134- 8644 Dec, [facility] [id number] [place] [address] 59229- 5067 Dec, [facility] [id number] [place] [address] 41079- 4535 Dec, [facility] [id number] [place] [address] 18590- 4721 Dec, [facility] [id number] [place] [address] 28654- 4078 Dec, [facility] [id number] [place] [address] 59093- 1430 Dec, [facility] [address] [facility] [id number][place] [address]- 4716 Dec, [facility] [address] [id number] [address] 2503 Dec, [facility] [address] [id number] [id number] Nov, Encounter for removal of sutures V58.32 [facility] [address] [facility] [id number], [place] [address]- 1794 Nov, [facility] [address] [id number] [address]- 6941 Nov, [facility] [address] [id number] [address]- 0943 Nov, [facility] [address]00565100[place], [place] [address]- 2549 Nov, [facility] [address] [id number], [place] [address]- 3616 Nov, [facility] [address] [id number], [place] [address]- 2426 Nov, [facility] [address] [id number], [place] [address] 5019 Nov, [facility] [address]00565100[place], [place] [address]- 0799 Nov, Dermatofibroma 216.9 [facility] [address] [facility] [id number], [place] [address]- 0779 Nov, [facility] [address] [facility] [id number], [place] [address]- 9633 Nov, [facility] [address] [facility] [id number], [place] [address]- 8354 Oct, [facility] [address] [id number] [address]- 9397 Oct, Hematochezia 578.1 ; Abscess 682.9 ; GERD (gastroesophageal reflux disease) 530.81 ; Visual disturbance of one eye 368.9 and High risk medication use V58.69 [facility] [address]00565100[place], [place] [address]- 7303 Oct, [facility] [address]00565100[place], [place] [address]- 4189 Oct, [facility] [address]00565100[place], [place] [address] 1539 Oct, [facility] [address]00565100[place], [place] [address]- 6911 September, [facility] [address] [id number] 2463 September, [facility] [address] [id number] 9971 September, [facility] [address]00565100[place], [place] [address]- 9449 September, [facility] [address]00565100[place], [place] [address]- 8562 September, [facility] [address]00565100[place], [place] [address]- 6142 September, Colon cancer screening V76.51 [facility] [address]00565100[place] 6781 September, [facility] [address]00565100[place] 87[place] 1680 Aug, [facility] [address]00565100[place] 2142 Aug, [facility] [address]00565100[place]- 5618 Jul, [facility] [address]00565100[place] 0437 Jul, [facility] [place] [facility] [address] [id number] [place] [address]- 3278 Jul, [facility] [place] [facility] [address] [id number] [place] [address]- 9103 Jul, [facility] [place] [facility] [address] [id number] [place] [address]- 1526 Jun, [facility] [place] [facility] [address] [id number] [place] [address]- 9345 Jun, [facility] [place] [facility] [address] [id number] [place] [address]- 3406 Jun, [facility] [place] [facility] [address] [id number] [place] [address]- 9398 Jun, [facility] [place] [facility] [address] [id number] [place] [address]- 7822 Jun, [facility] [place] [facility] [address] [id number] [place] [address]- 3454 Jun, [facility] [place] [facility] [address] [id number] [place] [address]- 3332 May, [facility] [place] [facility] [address] [id number] [place] [address]- 1799 May, [facility] [place] [facility] [address] [id number] [place] [address]- 2118 May, [facility] [place] [facility] [address] [id number] [place] [address]- 6277 May, [facility] [place] [facility] [address] [id number] [place] [address]- 4807 May, [facility] [place] [facility] [address] [id number] [place] [address]- 5040 May, [facility] [place] [facility] [address] [id number] [place] 4578 May, [facility] [place] [facility] [address] [id number] [place] [address]- 8518 May, [facility] [place] [facility] [address] [id number] [place] [address]- 1762 Apr, [facility] [place] [facility] [address] [id number] [place] [address]- 8045 Apr, [facility] [place] [facility] [address] [id number] [place] [address]- 9263 Apr, [facility] [place] [facility] [address] [id number] [place] [address]- 5026 Apr, [facility] [place] [facility] [address] [id number] [place] [address]- 3333 Apr, [facility] [place] [facility] [address] [id number] [place] [address]- 0781 Apr, [facility] [place] [facility] [address] [id number] [place] [address]- 3459 Apr, [facility] [place] [facility] [address] [id number] [place] [address]- 4009 Apr, [facility] [place] [facility] [address] [id number] [place] [address]- 8172 Mar, [facility] [place] [facility] [address] [id number] [place] [address]- 6332 Mar, [facility] [place] [facility] [address] [id number] [place] [address]- 2777 Mar, [facility] [place] [facility] [address] [id number] [place] [address]- 9659 Mar, [facility] [place] [facility] [address] [id number] [place] [address]- 5756 Mar, [facility] [place] [facility] [address] [id number] [place] [address]- 4323 Mar, [facility] [place] [facility] [address] [id number] [place] [address]- 6129 Mar, [facility] [place] [facility] [address] [id number] [place] [address]- 1535 Mar, [facility] [place] [facility] [address] [id number] [place] [address]- 0112 Mar, [facility] [place] [facility] [address] [id number] [place] [address]- 8722 Mar, [facility] [place] [facility] [address] [id number] [place] [address]- 8990 Feb, [facility] [place] [facility] [address] [id number] [place] [address]- 6429 Feb, [facility] [place] [facility] [address] [id number] [place] [address]- 8127 Jan, [facility] [place] [facility] [address] [id number] [place] [address]- 7397 Jan, [facility] [place] [facility] [address] [id number] [place] [address]- 6445 Jan, [facility] [place] [facility] [address] [id number] [place] [address]- 6134 Jan, [facility] [place] [facility] [address] [id number] [place] [address]- 8370 Dec, [facility] [place] [facility] [address] [id number] [place] [address]- 5157 Dec, [facility] [place] [facility] [address] [id number] [place] [address]- 6458 Dec, [facility] [place] [facility] [address] [id number] [place] [address]- 8562 Dec, [facility] [place] [facility] [address] [id number] [place] [address]- 1976 Dec, [facility] [place] [facility] [address] [id number] [place] [address]- 1320 Dec, [facility] [place] [facility] [address] [id number] [place] [address]- 1335 Nov, [facility] [place] [facility] [address] [id number] [place] [address]- 4580 Nov, [facility] [place] [facility] [address] [id number] [place] [address]- 6339 Oct, [facility] [place] [facility] [address] [id number] [place] [address]- 6169 Oct, [facility] [place] [facility] [address] [id number] [place] [address]- 8288 Oct, [facility] [place] [facility] [address] [id number] [place] [address]- 2492 Oct, [facility] [place] [facility] [address] [id number] [place] [address]- 4542 September, [facility] [place] [facility] [address] [id number] [place] [address]- 9145 September, [facility] [place] [facility] [address] [id number] [place] [address]- 4570 September, [facility] [place] [facility] [address] [id number] [place] [address]- 5537 September, [facility] [place] [facility] [address] [id number] [place] [address]- 9983 September, [facility] [place] [facility] [address] [id number] [place] [address]- 2061 September, [facility] [place] [facility] [address] [id number] [place] [address]- 3467 September, [facility] [place] [facility] [address] [id number] [place] 0300 September, [facility] [place] [facility] [address] [id number] [place] [address]- 6063 Aug, [facility] [place] [facility] [address] [id number] [place] [address]- 2377 Aug, [facility] [place] [facility] [address] [id number] [place] [address]- 6767 Aug, [facility] [place] [facility] [address] [id number] [place] [address]- 1272 Aug, [facility] [place] [facility] [address] [id number] [place] [address]- 2876 Aug, [facility] [place] [facility] [address] [id number] [place] [address]- 8306 Aug, [facility] [place] [facility] [address] [id number] [place] [address]- 1267 Jul, [facility] [place] [facility] [address] [id number] [place] [address]- 1476 Jul, [facility] [place] [facility] [address] [facility] [id number] [place] [address]- 7067 Jul, [facility] [place] [facility] [address] [facility] [id number] [place] [address]- 2259 Jul, [facility] [place] [facility] [address] [id number] [place] [address]- 7637 Jun, [facility] [place] [facility] [address] [id number] [place] [address]- 8982 Jun, [facility] [place] [facility] [address] [facility] [id number] [place] [address]- 0891 Jun, [facility] [place] [facility] [address] [facility] [id number] [place] [address]- 3741 Jun, [facility] [place] [facility] [address] [id number] [place] [address]- 0626 Jun, [facility] [place] [facility] [address] [id number] [place] [address]- 9726 Jun, [facility] [place] [facility] [address] [facility] [id number] [place] [address]- 5886 May, [facility] [place] [facility] [address] [id number] [place] [address]- 5684 May, [facility] [address] [id number] [place] [address]- 1578 May, [facility] [address] [id number] [place] [address]- 0042 May, [facility] [address] [id number] [place] [address]- 1786 May, [facility] [address] [id number] [place] [address]- 2174 May, [facility] [address] [id number] [place] [address]- 2866 May, [facility] [address] [id number] [place] [address]- 9868 May, [facility] [address] [id number] [place] [address]- 9550 Apr, [facility] [address] [place] [id number] Apr, [facility] [address] [id number] [place] [address]- 2762 Apr, [facility] [address] [id number] [place] [address]- 5296 Apr, [facility] [address] [id number] [place] [address]- 5075 Apr, [facility] [address] [id number] [place] [address]- 5962 Apr, [facility] [address] [id number] [place] [address]- 2801 Apr, [facility] [address] [id number] [place] [address]- 3248 05 Apr, 2013 [facility] [address] [id number] [place] [address]- 3917 Apr, [facility] [address] [id number], [place] [address]- 8085 Mar, [facility] [place] [facility] [address] [id number], [place] [address]- 2664 Mar, [facility] [place] [facility] [address] [id number], [place] [address]- 6321 Mar, [facility] [place] [facility] [address] [id number], [place] [address]- 1540 Mar, [facility] [place] [facility] [address] [id number], [place] [address]- 0267 Mar, [facility] [place] [facility] [address] [id number] [place] [address]- 6023 Feb, [facility] [place] [facility] [address] [id number], [place] [address]- 6064 Feb, [facility] [place] [facility] [address] [id number], [place] [address]- 4851 Feb, [facility] [place] [facility] [address] [id number], [place] [address]- 3828 Feb, [facility] [place] [facility] [address] [id number][place] [address]- 2168 Jan, [facility] [place] [facility] [address] [id number], [place] [address]- 4377 Jan, [facility] [place] [facility] [address] [id number], [place] [address]- 8016 Jan, [facility] [place] [facility] [address] [id number], [place] [address]- 7384 Dec, [facility] [place] [facility] [address] [id number], [place] [address]- 8497 Dec, [facility] [place] [facility] [address] [facility] [id number], [place] [address]- 3065 Dec, [facility] [address] [id number][place] [id number] Nov, [facility] [address] [id number][place] [id number] Oct, [facility] [address] [facility] [id number] [place] [address]- 2919 Oct, [facility] [address] [facility] [id number], [place] [address]- 2614 September, [facility] [address] [facility] [id number] [place] [address]- 1108 September, [facility] [address] [facility] [id number], [place] [address]- 2681 September, [facility] [address] [facility] [id number] [place] [address]- 2989 September, [facility] [address] [facility] [id number] [place] [address]- 8396 September, [facility] [address] [id number], [place] [address]- 2813 Jul, [facility] [address] [facility] [id number] [place] [address]- 5853 Jul, [facility] [address] [id number], [place] [address]- 3292 Jul, [facility] [address] [facility] [id number], [place] [address]- 3538 Jul, [facility] [address] [facility] [id number], [place] [address]- 1829 Jun, [facility] [place] [facility] [address] [facility] [id number], [place] [address]- 5876 Jun, [facility] [place] [facility] [address] [facility] [id number][place] [address]- 3302 Jun, [facility] [place] [facility] [address] [facility] [id number], [place] [address]- 0160 Jun, [facility] [place] [facility] [address] [facility] [id number][place] [address]- 3192 May, [facility] [place] [facility] [address] [id number] [place] [address]- 1582 Mar, [facility] [place] [facility] [address] [id number] [place] [address]- 8223 Mar, [facility] [place] [facility] [address] [id number] [place] [address]- 7411 Mar, [facility] [place] [facility] [address] [id number] [place] [address]- 4371 Mar, [facility] [place] [facility] [address] [id number] [place] [address]- 6631 Mar, [facility] [place] [facility] [address] [id number] [place] [address]- 9926 Mar, [facility] [place] [facility] [address] [facility] [id number] [place] [address]- 1732 Mar, [facility] [place] [facility] [address] [facility] [id number] [place] [address]- 8673 Mar, [facility] [place] [facility] [address] [facility] [id number] [place] [address]- 4041 Feb, [facility] [place] [facility] [address] [facility] [id number] [place] [address]- 2541 Feb, [facility] [place] [facility] [address] [facility] [id number], [place] [address]- 8969 Feb, [facility] [place] [facility] [address] [facility] [id number], [place] [address]- 3532 Feb, [facility] [place] [facility] [address] [facility] [id number], [place] [address]- 7316 Feb, [facility] [place] [facility] [address] [facility] [id number] [place] [address]- 0946 Feb, [facility] [place] [facility] [address] [facility] [id number][place] [address] Feb, [facility] [address] [id number] [id number] Jan, [facility] [address] [id number] [place] [id number] Dec, [facility] [address] [id number] [place] [id number] Dec, [facility] [place] [facility] [address] [id number] [place] [address] Nov, [facility] [place] [facility] [address] [id number] [place] [address] Nov, [facility] [place] [facility] [address] [id number] [place] [address] Oct, [facility] [place] [facility] [address] [id number] [place] [address] Jul, [facility] [place] [facility] [address] [id number] [place] [address] Jul, [facility] [place] [facility] [address] [facility] [id number] [place] [address] May, [facility] [place] [facility] [address] [id number] [place] [address] May, [facility] [place] [facility] [address] [id number] [place] [address] Nov, [facility] [place] [facility] [address] [facility] [id number] [place] [address] Mar, [facility] [place] [facility] [address] [id number] [place] [address] Dec, [facility] [place] [facility] [address] [id number] [place] [address] Nov, [facility] [place] [facility] [address] [id number] [place] [address] Aug, [facility] [place] [facility] [address] [id number] [place] [address] Apr, [facility] [place] [facility] [address] [id number] [place] [address] Apr, [facility] [address] [facility] [id number], [place] [address] Mar, [facility] [address] [id number] [address] Feb, [facility] [address] [facility] [id number][place] [address] September, [facility] [address] [id number] [address] Jun, [facility] [address] [facility] [id number][place] [address] Mar, IMMUNIZATIONS No Known Immunizations SOCIAL HISTORY [...] hernia Hospitalization History Went by ambulance to [place] as unresponsive 05/2015 Hospitalization History [place] sent her to [facility] for a psych hold 05/2015
--- OUTSIDE RECORDS SUMMARY | 2018-03-15 11:28 | XMS REPORT ---
Author Author HERBERT MCGOWAN [facility] Address [address] [place] [address] Care Team Providers Care Safety Deposit Supervisor Name Role Phone HERBERT MCGOWAN Unavailable PROBLEMS Type Condition ICD9-CM Code [id number] Code Onset Dates Condition Status SNOMED Code Problem Chronic pain G89.29 Active 14751520 Problem Social anxiety disorder F40.10 Active 34611928 Problem Encounter for dental examination and cleaning without abnormal findings Z01.20 Active 867136424 Problem Essential hypertension I10 Active 72864452 Problem Psoriasis L40.9 Active 3719598 Problem Acquired hypothyroidism E03.9 Active 455268117 Problem Obstructive sleep apnea G47.33 Active 06457484 Problem Morbid obesity, unspecified obesity type E66.01 Active 617003988 Problem Gastro-esophageal reflux disease without esophagitis K21.9 Active 194598197 Problem Pelvic pain R10.2 Active 82509649 Problem Bilateral low back pain with sciatica, sciatica laterality unspecified M54.40 Active 153631380 Problem Borderline personality disorder F60.3 Active 11324250 Problem Bipolar disorder F31.9 Active 35574341 Problem Visual disturbance H53.9 Active 85389081 Problem Overdose T50.901A Active 69138360 Problem Posttraumatic stress disorder F43.10 Active 58066800 Problem Bipolar 1 disorder F31.9 Active 652985224 ALLERGIES Unknown Allergies SOCIAL HISTORY No smoking Hx information available PLAN OF CARE VITAL SIGNS MEDICATIONS Unknown Medications RESULTS No Results PROCEDURES No Known procedures IMMUNIZATIONS No Known Immunizations
--- OUTSIDE RECORDS SUMMARY | 2018-03-15 11:28 | XMS REPORT ---
Author Author HERBERT MCGOWAN [facility] Address [address] [place] [address] Care Team Providers Care Worm Farmer Name Role Phone EHRBERT MCGOWAN Unavailable PROBLEMS Type Condition ICD9-CM Code [id number] Code Onset Dates Condition Status SNOMED Code Problem Chronic pain G89.29 Active 75742657 Problem Social anxiety disorder F40.10 Active 07202364 Problem Encounter for dental examination and cleaning without abnormal findings Z01.20 Active 673584986 Problem Essential hypertension I10 Active 50232629 Problem Psoriasis L40.9 Active 5227461 Problem Acquired hypothyroidism E03.9 Active 165018917 Problem Obstructive sleep apnea G47.33 Active 47534751 Problem Morbid obesity, unspecified obesity type E66.01 Active 516502488 Problem Gastro-esophageal reflux disease without esophagitis K21.9 Active 374066703 Problem Pelvic pain R10.2 Active 64575917 Problem Bilateral low back pain with sciatica, sciatica laterality unspecified M54.40 Active 618343672 Problem Borderline personality disorder F60.3 Active 72639279 Problem Bipolar disorder F31.9 Active 74410064 Problem Visual disturbance H53.9 Active 86200371 Problem Overdose T50.901A Active 74096938 Problem Posttraumatic stress disorder F43.10 Active 77929742 Problem Bipolar 1 disorder F31.9 Active 861572178 ALLERGIES Unknown Allergies SOCIAL HISTORY No smoking Hx information available PLAN OF CARE VITAL SIGNS MEDICATIONS Unknown Medications RESULTS No Results PROCEDURES No Known procedures IMMUNIZATIONS No Known Immunizations
--- OUTSIDE RECORDS SUMMARY | 2018-03-15 11:28 | XMS REPORT ---
Author Author HERBERT MCGOWAN [facility] eClinicalWorks Address Unknown Phone Unavailable Care Team Providers Care Paper Mill Manager Name Role Phone HERBERT MCGOWAN CP Unavailable [...] 611.1 Active Problem Cervicalgia 723.1 Active Problem Urinary tract infection, site not specified 599.0 Active Problem Blood in stool 578.1 Active Problem Dehydration 276.51 Active Problem Abdominal pain, generalized 789.07 Active Problem Hypopotassemia 276.8 Active Problem Unspecified backache 724.5 Active Medications Medication Code System Code Instructions Start Date End Date Status Dosage Dicyclomine HCl [facility] [address]-92 20 MG Orally Four times a day 1 tablet Results No Known Results Summary Purpose eClinicalWorks Submission
--- OUTSIDE RECORDS SUMMARY | 2018-03-15 11:29 | XMS REPORT ---
Author Author HERBERT MCGOWAN Organization eClinicalWorks Address Unknown Phone Unavailable Care Team Providers Care Collection Technician Name Role Phone HERBERT MCGOWAN CP [...] Date End Date Status Dosage Tizanidine HCl [facility] [address]-50 2 MG Orally 2 times a day Feb 18, 2015 1 tablet as needed Results No Known Results Summary Purpose eClinicalWorks Submission
--- OUTSIDE RECORDS SUMMARY | 2018-03-15 11:29 | XMS REPORT ---
Author Author HERBERT MCGOWAN [facility] eClinicalWorks Address Unknown Phone Unavailable Care Team Providers Care Character Actor Name Role Phone HERBERT MCGOWAN CP Unavailable [...] Date End Date Status Dosage Dicyclomine HCl [facility] [address]-84 20 MG Orally Four times a day 1 tablet Results No Known Results Summary Purpose eClinicalWorks Submission
--- OUTSIDE RECORDS SUMMARY | 2018-03-15 11:29 | XMS REPORT ---
Author Author HERBERT MCGOWAN Organization eClinicalWorks Address Unknown Phone Unavailable Care Team Providers Care Software Engineer Backend Name Role Phone HERBERT MCGOWAN CP Unavailable [...] Problem Hypertrophy of breast 611.1 Active Assessment High risk medication use V58.69 Active Problem Esophageal reflux 530.81 Active Problem Screening mammogram for high-risk patient V76.11 Active Medications No Known Medications Procedures Procedure Coding System Code Date No Charge CPT-4 41122 Jun 26, 2015 Results No Known Results Summary Purpose eClinicalWorks Submission
--- OUTSIDE RECORDS SUMMARY | 2018-03-15 11:29 | XMS REPORT ---
Author Author HERBERT MCGOWAN Organization eClinicalWorks Address Unknown Phone Unavailable Care Team Providers Care Neon Sign Worker Name Role Phone HERBERT MCGOWAN CP [...]
--- OUTSIDE RECORDS SUMMARY | 2018-03-15 11:29 | XMS REPORT ---
Author Author HERBERT MCGOWAN [facility] Address [address] [place] [address] Care Team Providers Care Driver Trainee Name Role Phone HERBERT MCGOWAN Unavailable PROBLEMS Type Condition ICD9-CM Code TFM13-VN Code Onset Dates Condition Status SNOMED Code Problem Chronic pain G89.29 Active 81131798 Problem Social anxiety disorder F40.10 Active 10193441 Problem Encounter for dental examination and cleaning without abnormal findings Z01.20 Active 870602955 Problem Essential hypertension I10 Active 45940338 Problem Psoriasis L40.9 Active 1709693 Problem Acquired hypothyroidism E03.9 Active 758916929 Problem Obstructive sleep apnea G47.33 Active 60828685 Problem Morbid obesity, unspecified obesity type E66.01 Active 279623147 Problem Gastro-esophageal reflux disease without esophagitis K21.9 Active 295281645 Problem Pelvic pain R10.2 Active 48653404 Problem Bilateral low back pain with sciatica, sciatica laterality unspecified M54.40 Active 341419944 Problem Borderline personality disorder F60.3 Active 84981034 Problem Bipolar disorder F31.9 Active 38152336 Problem Visual disturbance H53.9 Active 00355561 Problem Overdose T50.901A Active 88492296 Problem Posttraumatic stress disorder F43.10 Active 75076541 Problem Bipolar 1 disorder F31.9 Active 310922136 ALLERGIES Substance Reaction Event Type Date Status [...] CARE Activity Details Follow Up 4 Weeks Reason:diet counseling VITAL SIGNS Height 62 in 2016-06-24 Weight 267.7 lbs 2016-06-24 Temperature 98.5 degrees Fahrenheit 2016-06-24 Heart Rate 96 bpm 2016-06-24 Respiratory Rate 20 2016-06-24 BMI 48.96 kg/m2 2016-06-24 Blood pressure systolic 133 mmHg 2016-06-24 Blood pressure diastolic 89 mmHg 2016-06-24 MEDICATIONS Medication Instructions Dosage Frequency Start Date End Date Duration Status Combivent Respimat 20-100 MCG/ACT Inhalation Four times a day 1 puff 6h Active Cymbalta 60 mg Orally Once a day with Cymbalta 30mg. Total dose is 90mg 1 capsule Active Tizanidine HCl 2 MG Orally 2 times a day 1 tablet as needed 12h Feb, 90 days Active Sumatriptan 5 mg by oral route Once a day 1 tablet 24h Active Creon 72906 UNIT Orally 3 times a day 1 capsule before meals 8h Nov, 90 days Active Loratadine 10 mg Orally 2 times a day 1 tablet 12h September, 90 days Active Lamotrigine 150 MG Orally Once a day 1 tablet 24h Active Levothyroxine Sodium 25 MCG 1 tablet on an empty stomach in the morning Once a day Orally 30 day(s) 30 90 Active Creon 01520 UNIT 1 capsule before meals 3 times a day Orally 90 days 90 Active Protonix 20 mg Orally Once a day 1 tablet 24h 23 Oct, 2014 90 days Active Trulicity 0.75 MG/0.5ML Subcutaneous once weekly 0.5 ml Jun, Jul, 30 day(s) Active Carafate 1 GM Orally 4 times a day 1 tablet on an empty stomach 6h 90 days Active Cymbalta 30 MG Orally Once a day with Cymbalta 60mg. Total dose 90mg 1 capsule along with 60mg Active Contrave 8-90 MG Orally 1 tab twice day 1/2 tab daily at hs for 5 days, 1/2 tab twice a day for 5 days, 1/2 tab in AM and 1 tabat hs for 5 days Jun, Aug, 30 day(s) Active Losartan Potassium-HCTZ 50-12.5 MG Orally Once a day 1 tablet 24h Active Atorvastatin Calcium 20 MG Orally Once a day 1 tablet 24h Active Dicyclomine HCl 20 mg 1 tablet Four times a day Orally 30 days 90 Active Gabapentin 300 MG Orally 3 times a day 1 tablet 8h Active Doxepin HCl 10 mg Orally Once at bedtime for sleep 1 capsule at bedtime September, Active Oxygen 2 L/NC Active RESULTS No Results PROCEDURES No Known [...] hernia Hospitalization History Went by ambulance to [place] as unresponsive 05/2015 Hospitalization History [place] sent her to [facility] for a psych hold 05/2015
--- OUTSIDE RECORDS SUMMARY | 2018-03-15 11:29 | XMS REPORT ---
Author Author CARYL FRANZ Organization [facility] Address [address] [place] [address] Care Team Providers Care Front Desk Specialist Name Role Phone OSEILOWELLA Unavailable PROBLEMS Type Condition ICD9-CM Code [id number] Code Onset Dates Condition Status SNOMED Code Problem Bipolar 1 disorder F31.9 Active 500660825 Problem Social anxiety disorder F40.10 Active 07515777 Problem Encounter for dental examination and cleaning without abnormal findings Z01.20 Active 342754419 Problem Essential hypertension I10 Active 19447664 Problem Psoriasis L40.9 Active 3065148 Problem Acquired hypothyroidism E03.9 Active 569808652 Problem Obstructive sleep apnea G47.33 Active 84039344 Problem Morbid obesity, unspecified obesity type E66.01 Active 317043830 Problem Gastro-esophageal reflux disease without esophagitis K21.9 Active 423270082 Problem Pelvic pain R10.2 Active 04972014 Problem Bilateral low back pain with sciatica, sciatica laterality unspecified M54.40 Active 305706112 Problem Posttraumatic stress disorder F43.10 Active 78728171 Problem Bipolar disorder F31.9 Active 43535450 Problem Visual disturbance H53.9 Active 35791066 Problem Chronic pain G89.29 Active 62390378 Problem Borderline personality disorder F60.3 Active 17256066 Problem Overdose T50.901A Active 00869147 ALLERGIES Substance Reaction Event Type Date Status [...] OF CARE Activity Details Follow Up 4 Months Reason: VITAL SIGNS Height 62 in 2016-04-27 Weight 261.3 lbs 2016-04-27 Heart Rate 92 bpm 2016-04-27 Respiratory Rate 20 2016-04-27 BMI 47.79 kg/m2 2016-04-27 Blood pressure systolic 140 mmHg 2016-04-27 Blood pressure diastolic 90 mmHg 2016-04-27 MEDICATIONS Medication Instructions Dosage Frequency Start Date End Date Duration Status Gabapentin 300 MG Orally 3 times a day 1 tablet 8h Active Doxepin HCl 10 mg Orally Once at bedtime for sleep 1 capsule at bedtime September, Active Atorvastatin Calcium 20 MG Orally Once a day 1 tablet 24h Active Lamotrigine 150 MG Orally Once a day 1 tablet 24h Active Dicyclomine HCl 20 mg Orally Four times a day 1 tablet 6h 30 days Active Levothyroxine Sodium 50 MCG Orally Once a day 1 tablet on an empty stomach in the morning Once a day Orally 30 day(s) 24h Active Protonix 20 mg Orally Once a day 1 tablet 24h Oct, 90 days Active Cymbalta 60 mg Orally Once a day with Cymbalta 30mg. Total dose is 90mg 1 capsule Active Creon 20454 UNIT Orally 3 times a day 1 capsule before meals 8h Nov, 90 days Active Cymbalta 30 MG Orally Once a day with Cymbalta 60mg. Total dose 90mg 1 capsule along with 60mg Active Carafate 1 GM Orally 4 times a day 1 tablet on an empty stomach 6h 90 days Active Combivent Respimat 20-100 MCG/ACT Inhalation Four times a day 1 puff 6h Active Losartan Potassium-HCTZ 50-12.5 MG Orally Once a day 1 tablet 24h Active Loratadine 10 mg Orally 2 times a day 1 tablet 12h September, 90 days Active Sumatriptan 5 mg by oral route Once a day 1 tablet 24h Active Tizanidine HCl 2 MG Orally 2 times a day 1 tablet as needed 12h Feb, 90 days Active RESULTS No Results PROCEDURES Procedure Date Ordered Related Diagnosis Body Site MH Office Visit, Est Pt., Level 4 Apr 27, 2016 IMMUNIZATIONS No Known Immunizations
--- OUTSIDE RECORDS SUMMARY | 2018-03-15 11:30 | XMS REPORT ---
Author Author HERBERT MCGOWAN [facility] eClinicalWorks Address Unknown Phone Unavailable Care Team Providers Care Pole Frame Construction Worker Name Role Phone HERBERT MCGOWAN CP [...]
--- OUTSIDE RECORDS SUMMARY | 2018-03-15 11:30 | XMS REPORT ---
Author Author HERBERT MCGOWAN [facility] [address] Address [address] [place] [address] Care Team Providers Care Staffing Clerk Name Role Phone HERBERT MCGOWAN Unavailable PROBLEMS Type Condition ICD9-CM Code IZO50-VN Code Onset Dates Condition Status SNOMED Code Problem Chronic pain G89.29 Active 24622328 Problem Social anxiety disorder F40.10 Active 40917716 Problem Encounter for dental examination and cleaning without abnormal findings Z01.20 Active 233312212 Problem Essential hypertension I10 Active 81645399 Problem Psoriasis L40.9 Active 1964647 Problem Acquired hypothyroidism E03.9 Active 559087540 Problem Obstructive sleep apnea G47.33 Active 69096450 Problem Morbid obesity, unspecified obesity type E66.01 Active 030960971 Problem Gastro-esophageal reflux disease without esophagitis K21.9 Active 092182204 Problem Pelvic pain R10.2 Active 35536059 Problem Bilateral low back pain with sciatica, sciatica laterality unspecified M54.40 Active 062320947 Problem Borderline personality disorder F60.3 Active 36436856 Problem Bipolar disorder F31.9 Active 42995393 Problem Visual disturbance H53.9 Active 90876169 Problem Overdose T50.901A Active 49543905 Problem Posttraumatic stress disorder F43.10 Active 44311683 Problem Bipolar 1 disorder F31.9 Active 286708293 ALLERGIES Substance Reaction Event Type Date Status [...] Reason:wt mgmt VITAL SIGNS Height 62 in 2016-07-29 Weight 252.4 lbs 2016-07-29 Temperature 98.5 degrees Fahrenheit 2016-07-29 Heart Rate 86 bpm 2016-07-29 Respiratory Rate 22 2016-07-29 BMI 46.16 kg/m2 2016-07-29 Blood pressure systolic 110 mmHg 2016-07-29 Blood pressure diastolic 74 mmHg 2016-07-29 MEDICATIONS Medication Instructions Dosage Frequency Start Date End Date Duration Status Doxepin HCl 10 mg Orally Once at bedtime for sleep 1 capsule at bedtime September, Active Losartan Potassium-HCTZ 50-12.5 MG Orally Once a day 1 tablet 24h Active Loratadine 10 mg Orally 2 times a day 1 tablet 12h September, 90 days Active Gabapentin 300 MG Orally 3 times a day 1 tablet 8h Active Atorvastatin Calcium 20 MG Orally Once a day 1 tablet 24h Active Carafate 1 GM Orally 4 times a day 1 tablet on an empty stomach 6h 90 days Active Tizanidine HCl 2 MG Orally Once a day 1 tablet as needed 24h Feb, Active Combivent Respimat 20-100 MCG/ACT Inhalation Four times a day 1 puff 6h Active Oxygen 2 L/NC Active Levothyroxine Sodium 25 MCG 1 tablet on an empty stomach in the morning Once a day Orally 30 day(s) 30 90 Active Cymbalta 30 MG Orally Once a day with Cymbalta 60mg. Total dose 90mg 1 capsule along with 60mg Active Dicyclomine HCl 20 mg 1 tablet Four times a day Orally 30 days 90 Active Creon 27122 UNIT Orally 3 times a day 1 capsule before meals 8h Nov, 90 days Active Lamotrigine 150 MG Orally Once a day 1 tablet 24h Active Contrave 8-90 MG Orally Twice a day 2 tablets 12h Jun, 30 days Active Cymbalta 60 mg Orally Once a day with Cymbalta 30mg. Total dose is 90mg 1 capsule Active Imitrex 50 mg Orally Once a [...] hernia Hospitalization History Went by ambulance to [place] as unresponsive 05/2015 Hospitalization History [place] sent her to [facility] for a psych hold 05/2015
--- OUTSIDE RECORDS SUMMARY | 2018-03-15 11:32 | XMS REPORT ---
Author Author OREN THURSTON Organization eClinicalWorks Address Unknown Phone Unavailable Care Team Providers Care Rubber Press Operator Name Role Phone OREN THURSTON CP Unavailable Allergies, Adverse Reactions, Alerts Substance [...] Medications Procedures Procedure Coding System Code Date VERTICAL BITEWINGS - 7 TO 8 FILMS CPT-4 D0277 Feb 17, 2015 PROPHYLAXIS - ADULT CPT-4 D1110 Feb 17, 2015 PERIODIC ORAL EXAMINATION CPT-4 D0120 Feb 17, 2015 TOPICAL FLUORIDE VARNISH CPT-4 D1206 Feb 17, 2015 Vital Signs Date/Time: Feb 17, 2015 Blood Pressure Diastolic 72 mmHg Blood Pressure Systolic 111 mmHg Results No Known Results Summary Purpose eClinicalWorks Submission
--- OUTSIDE RECORDS SUMMARY | 2018-03-15 11:32 | XMS REPORT ---
Author Author HERBERT MCGOWAN Organization eClinicalWorks Address Unknown Phone Unavailable Care Team Providers Care Cutter Down Name Role Phone HERBERT MCGOWAN CP Unavailable [...] Start Date End Date Status Dosage Hydrocodone-Acetaminophen [facility] [address]-64 7.5-325 MG 2 times a day July 29, 2014 1 tablet by Oral route PRN Results No Known Results Summary Purpose eClinicalWorks Submission
--- OUTSIDE RECORDS SUMMARY | 2018-03-15 11:32 | XMS REPORT ---
Author Author HERBERT MCGOWAN Organization eClinicalWorks Address Unknown Phone Unavailable Care Team Providers Care Director Of Retail Marketing Name Role Phone HERBERT MCGOWAN CP Unavailable [...] Instructions Start Date End Date Status Dosage Levothyroxine Sodium [facility] [address]-32 25 MCG Orally Once a day Feb 27, 2016 1 tablet on an empty stomach in the morning Results No Known Results Summary Purpose eClinicalWorks Submission
--- OUTSIDE RECORDS SUMMARY | 2018-03-15 11:32 | XMS REPORT ---
Author Author SAMI SUAREZ [facility] Address [address] [place] [address] Care Team Providers Care Patient Companion Name Role Phone SAMI SUAREZ Unavailable PROBLEMS Type Condition ICD9-CM Code FCE05-IK Code Onset Dates Condition Status SNOMED Code Problem Psoriasis L40.9 Active 5497018 Problem Relationship problem with family member Z63.8 Active 936250514 Problem Essential hypertension I10 Active 85491071 Problem Anxiety F41.9 Active 03972917 Problem Visual disturbance H53.9 Active 79326677 Problem Rheumatoid arthritis involving multiple sites with positive rheumatoid factor M05.79 Active 837133541 Problem Bilateral low back pain with sciatica, sciatica laterality unspecified M54.40 Active 269867307 Problem Pelvic pain R10.2 Active 24579880 Problem Other chronic pain G89.29 Active 29000266 Problem Lumbago with sciatica, left side M54.42 Active 834494500 Problem 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 Active 339801924 Problem Blindness of right eye H54.40 Active 950232857 Problem Bipolar disorder F31.9 Active 67283948 Problem Overdose T50.901A Active 99555799 Problem Borderline personality disorder F60.3 Active 72479964 Problem Posttraumatic stress disorder F43.10 Active 35889394 Problem Obstructive sleep apnea G47.33 Active 45214949 Problem Acquired hypothyroidism E03.9 Active 768649006 Problem Chronic pain G89.29 Active 34245381 Problem Gastro-esophageal reflux disease without esophagitis K21.9 Active 200136314 Problem Social anxiety disorder F40.10 Active 10674102 Problem Morbid obesity, unspecified obesity type E66.01 Active 462058017 ALLERGIES No Information ENCOUNTERS Encounter Location Date Diagnosis [facility], [place] [address] [facility] [id number] [address] [address] Nov, [facility], [place] [address], [place] [address] 5496 Nov, [facility], [place] [address], [place] [address] 3082 Nov, [facility], [place] [address], [place] [address] 8763 Nov, [facility], [place] [address], [place] [address] 3367 Nov, Serpiginous choroiditis H31.22 ; Adverse effect of antineoplastic and immunosuppressive drugs, initial encounter T45.1X5A ; Anemia , unspecified D64.9 and BMI 40.0-44.9, adult Z68.41 [facility], [place] [address] [place] [address] 28287- 6988 Nov, Anemia due to other cause, not classified D64.89 [facility], [place] [address] [place] [address] 17384- 8458 Oct, Adverse effect of drug, initial encounter T50.905A and Acute anemia D64.9 [facility], [place] [address] [address] 7110 Oct, Anemia due to other cause, not classified D64.89 ; Dysuria R30.0 and Urinary tract infection without hematuria, site unspecified N39.0 [facility], [place] [address], [place] [address] 1029 Oct, [facility], [place] [address] [place] [address] 37929- 0834 Oct, [facility], [place] [id number] [address] 1304 Oct, Serpiginous choroiditis H31.22 [place] [address] [id number] [id number] Oct, [facility], [place] [address], [place] [address] 5400 Oct, [facility], [place] [address], [place] [address]- 0378 Oct, [facility], [place] [id number] [place] [address] 61257- 8512 Oct, Bipolar disorder F31.9 ; Posttraumatic stress disorder F43.10 and Borderline personality disorder F60.3 [facility], [place] [id number] [place] [address] 08564- 9384 Oct, Rheumatoid arthritis involving multiple sites with positive rheumatoid factor M05.79 ; Serpiginous choroiditis H31.22 and Anxiety F41.9 [facility], [place] [id number] [place] [address] 13667- 6102 Oct, [place] [id number] [place] [address] 51621- 3799 September, Serpiginous choroiditis H31.22 [place] [id number] [place] [address] 54113- 4150 September, Bipolar disorder F31.9 ; Posttraumatic stress disorder F43.10 and Borderline personality disorder F60.3 [facility], [place] [id number] [place] [address] 61611- 1344 Aug, BMI 40.0-44.9, adult Z68.41 ; Bipolar disorder F31.9 ; Posttraumatic stress disorder F43.10 and Social anxiety disorder F40.10 [place] [id number] [place] [address] 53344- 3847 Aug, Bipolar disorder F31.9 ; Posttraumatic stress disorder F43.10 and Borderline personality disorder F60.3 [facility], [place] [address] [place] [address] 33635- 7242 Aug, Serpiginous choroiditis H31.22 [facility], [place] [id number] [place] [address] 31613- 3005 Jul, Bipolar disorder F31.9 ; Posttraumatic stress disorder F43.10 and Borderline personality disorder F60.3 [facility], [place] [id number] [place] [address] 77072- 5610 Jul, [facility], [place] [address] [place] [address] 73561- 8758 Jun, Bipolar disorder F31.9 ; Posttraumatic stress disorder F43.10 and Borderline personality disorder F60.3 [facility], [place] [address] [place] [address] 58596- 3868 Jun, Blindness of right eye H54.40 and Acquired hypothyroidism E03.9 [facility], [place] [id number] [place] [address] 07091- 0561 Jun, [facility], [place] [id number] [place] [address] 22232- 0229 May, Posttraumatic stress disorder F43.10 ; Social anxiety disorder F40.10 and Bipolar disorder F31.9 [facility], [place] [id number] [place] [address] 24151- 4173 May, Bipolar disorder F31.9 ; Posttraumatic stress disorder F43.10 and Borderline personality disorder F60.3 [facility], [place] [address] [place] [address] 04806- 9716 May, [facility], [place] [id number] [place] [address] 91244- 1472 May, [facility], [place] [address] [place] [address] 43481- 1604 Apr, Bipolar disorder F31.9 ; Posttraumatic stress disorder F43.10 and Borderline personality disorder F60.3 [address] [id number] Apr, [facility], [place] [id number] [place] [address] 05464- 6847 Apr, [facility], [place] [address] [place] [address] 15658- 6677 Mar, Hydradenitis L73.2 [facility], [place] [address] [place] [address] 27472- 6547 Mar, Lumbago with sciatica, left side M54.42 ; Other chronic pain G89.29 ; Morbid obesity, unspecified obesity type E66.01 ; Hydradenitis L73.2 and BMI 40.0-44.9, adult Z68.41 [facility], [place] [address] [place] [address] 79006- 5581 Mar, Bipolar disorder F31.9 ; Posttraumatic stress disorder F43.10 and Borderline personality disorder F60.3 [place] [id number] [place] [address] 23187- 9006 Mar, Social anxiety disorder F40.10 ; Bipolar disorder F31.9 and Relationship problem with family member Z63.8 [place] [id number] [place] [address] 94113- 3279 Mar, [address] [id number] [id number] Mar, Dental examination Z01.20 [place] [id number] [place] [address] 16872- 1902 Mar, [place] [id number] [place] [address] 63447- 1318 Feb, Bipolar disorder F31.9 ; Posttraumatic stress disorder F43.10 and Borderline personality disorder F60.3 [facility] [address] [id number] Feb, [place] [id number] [place] [address] 49249- 9671 14 Jan, 2017 Bipolar disorder F31.9 ; Posttraumatic stress disorder F43.10 and Borderline personality disorder F60.3 [facility] [id number] [place] [address] [id number] Jan, [place] [id number] [place] [address] 96461- 4065 Jan, [facility] [id number] [place] [address] [id number] Jan, [place] [address], [place] [address]- 0277 Dec, Bipolar disorder F31.9 ; Posttraumatic stress disorder F43.10 and Borderline personality disorder F60.3 [place] [address], [place] [address]- 9567 Dec, [place] [address], [place] [address]- 5287 Dec, [address] [id number] Dec, [place] [id number] [place] [address] 32146- 5505 Nov, Bipolar 1 disorder F31.9 ; Posttraumatic stress disorder F43.10 and Social anxiety disorder F40.10 [address] [place] [address] 16383- 1923 Nov, Bipolar disorder F31.9 ; Posttraumatic stress disorder F43.10 and Borderline personality disorder F60.3 [place] [address], [place] [address]- 2641 Nov, Morbid obesity, unspecified obesity type E66.01 [address], [place] [address]- 7746 Nov, [address] [id number] [id number] Oct, Encounter for dental examination and cleaning without abnormal findings Z01.20 [place] [address], [place] [address]- 8237 15 Oct, 2016 Morbid obesity, unspecified obesity type E66.01 and Acute seasonal allergic rhinitis due to pollen J30.1 [place] [address] [place] [address] 31811- 7730 08 Oct, 2016 Bipolar disorder F31.9 ; Posttraumatic stress disorder F43.10 and Borderline personality disorder F60.3 [place] [address] [place] [address] 55420- 9382 September, Morbid obesity, unspecified obesity type E66.01 and Psoriasis L40.9 [place] [id number] [place] [address] 639476- 1415 September, Bipolar disorder F31.9 ; Posttraumatic stress disorder F43.10 and Borderline personality disorder F60.3 [place] [id number] [place] [address] 50852- 4661 September, Chronic pain G89.29 [place] [address] 24044- 4446 Aug, Other acute nonsuppurative otitis media of right ear H65.191 and Morbid obesity, unspecified obesity type E66.01 [place] [id number] [place] [address] 41573- 0186 Aug, Bipolar 1 disorder F31.9 ; Posttraumatic stress disorder F43.10 and Social anxiety disorder F40.10 [place] [id number] [place] [address] 58067- 3883 Aug, Bipolar disorder F31.9 ; Posttraumatic stress disorder F43.10 and Borderline personality disorder F60.3 [place] [id number] [place] [address] 01317- 0777 Jul, Morbid obesity due to excess calories E66.01 ; Gastro- esophageal reflux disease without esophagitis K21.9 and Chronic pain G89.29 [place] [id number] [place] [address] 22604- 9896 Jul, Morbid obesity due to excess calories E66.01 [place] [id number] [place] [address] 27313- 4656 Jul, [place] [address] 28900- 4599 Jul, [place] [id number] [place] [address] 15907- 8901 Jul, Morbid obesity due to excess calories E66.01 [place] [address], [place] [address]- 0076 02 Jul, 2016 Bipolar disorder F31.9 ; Posttraumatic stress disorder F43.10 and Borderline personality disorder F60.3 [facility], [place] [address] [address] 4650 16 Jun, 2016 [facility], [place] [id number] [place] [address] 84648 2546 15 Jun, 2016 Morbid obesity due to excess calories E66.01 [facility], [place] [address] [place] [address] 65366- 5997 10 Jun, 2016 [facility], [place] [id number] [place] [address] 83500- 9219 09 Jun, 2016 Morbid obesity, unspecified obesity type E66.01 [facility], [place] [id number] [place] [address] 45750- 0544 03 Jun, 2016 Bipolar disorder F31.9 ; Posttraumatic stress disorder F43.10 and Borderline personality disorder F60.3 [facility], [place] [address] [place] [address] 39050- 5811 03 Jun, 2016 [facility], [place] [address] [place] [address] 05340- 7617 03 Jun, 2016 [facility], [place] [address] [place] [address] 44918- 8249 02 Jun, 2016 Acquired hypothyroidism E03.9 and Morbid obesity due to excess calories E66.01 [facility], [place] [address], [place] [address]- 2450 May, Bipolar disorder F31.9 ; Posttraumatic stress disorder F43.10 and Borderline personality disorder F60.3 [facility], [place] [address] [address]- 5134 Apr, Bipolar 1 disorder F31.9 ; Posttraumatic stress disorder F43.10 and Social anxiety disorder F40.[address] [id number] [id number] 12 Apr, 2016 Encounter for dental examination Z01.20 [facility], [place] [address] [place] [address] 32571- 8833 Apr, [facility], [place] [id number] [place] [address] 52404- 4696 Apr, Acquired hypothyroidism E03.9 [facility], [place] [id number] [place] [address] 190930- 8780 Apr, Acquired hypothyroidism E03.9 [facility], [place] [address] [place] [address] 804436- 0841 Apr, Bipolar disorder F31.9 ; Posttraumatic stress disorder F43.10 and Borderline personality disorder F60.3 [facility], [place] [address] [place] [address] 49696- 3813 Apr, Acquired hypothyroidism E03.[address] [facility] [address] [id number] [id number] Mar, Encounter for dental examination and cleaning without abnormal findings Z01.20 [facility], [place] [address] [place] [address] 06514- 5711 Mar, [facility], [place] [id number] [place] [address] 03703- 5860 Mar, Bipolar disorder F31.9 ; Posttraumatic stress disorder F43.10 and Borderline personality disorder F60.3 [facility], [place] [id number] [place] [address] 60872- 9414 Mar, Essential (primary) hypertension I10 [facility], [place] [id number] [place] [address] 14792- 6011 Feb, [facility], [place] [address] 12638- 8375 Feb, [facility], [place] [id number] [place] [address] 99448- 1836 Feb, Pelvic pain R10.2 ; Lipid screening Z13.220 ; Fatigue, unspecified type R53.83 and Weight gain R63.5 [facility], [place] [address] [place] [address] 18495- 0623 Feb, Bipolar disorder F31.9 ; Posttraumatic stress disorder F43.10 and Borderline personality disorder F60.3 [facility], [place] [address] [place] [address] 89765- 0146 Feb, [facility], [place] [id number] [place] [address] 60015- 8317 Feb, [facility], [place] [address] [place] [address] 60065- 7131 30 Jan, 2016 Obstructive sleep apnea syndrome G47.33 [facility], [place] [address] [place] [address] 11077- 0866 26 Jan, [address] [id number] [id number] 19 Jan, 2016 Dental examination Z01.20 [facility], [place] [id number] [place] [address] 10082- 6447 13 Jan, 2016 Bipolar 1 disorder F31.9 ; Posttraumatic stress disorder F43.10 and Social anxiety disorder F40.10 [facility] [place] [address] [place] [address] 36847- 0441 Jan, Bipolar disorder F31.9 ; Posttraumatic stress disorder F43.10 and Borderline personality disorder F60.3 [facility] [place] [address] [place] [address] 00689- 3760 Jan, Sciatica of left side M54.32 [facility], [place] [address] [place] [address] 97643- 2135 Jan, [facility] [place] [address] [place] [address] 93137- 5478 Dec, [facility], [place] [address] [place] [address] 50910- 9400 Dec, [facility] [place] [address] [place] [address] 99000- 6350 Dec, Bipolar disorder F31.9 ; Posttraumatic stress disorder F43.10 and Borderline personality disorder F60.3 [place] [address] [place] [address] 82211- 9126 Nov, [place] [id number] [place] [address] 40405- 6523 Nov, Insomnia, unspecified type G47.00 [place] [id number] [place] [address] 90477- 1345 Nov, Bipolar disorder F31.9 ; Posttraumatic stress disorder F43.10 and Borderline personality disorder F60.3 [place] [address] [place] [address] 52740- 6214 Nov, [place] [id number] [place] [address] 15483- 9839 Nov, [place] [id number] [place] [address] 89536- 7603 Oct, Bipolar disorder F31.9 ; Posttraumatic stress disorder F43.10 and Borderline personality disorder F60.3 [place] [address] [place] [address] 63843- 7274 Oct, [place] [id number] [place] [address] 42333- 9745 Oct, Essential (primary) hypertension I10 [place] [address] [place] [address] 70022- 4064 September, Bipolar 1 disorder F31.9 ; Posttraumatic stress disorder F43.10 and Social anxiety disorder F40.10 [place] [address] [place] [address] 67058- 7757 September, Bipolar disorder F31.9 ; Posttraumatic stress disorder F43.10 and Borderline personality disorder F60.[address] [place] [id number] [id number] September, Encounter for dental examination and cleaning without abnormal findings Z01.20 [facility] [place] [address], [place] [address]- 0490 September, [facility] [place] [id number] [place] [address] 26007- 4052 September, [place] [id number] [place] [address] 63730- 3701 Aug, [place] [id number] [place] [address] 36976- 4774 Aug, Bipolar disorder F31.9 ; Posttraumatic stress disorder F43.10 and Borderline personality disorder F60.3 [place] [id number] [place] [address] 10092- 7009 Aug, [place] [id number] [place] [address] 43076- 9236 Aug, [place] [id number] [place] [address] 54719- 4135 Aug, [facility] [id number] [place] [address] [id number] Jul, Acute nasopharyngitis [common cold] J00 and Other viral agents as the cause of diseases classified elsewhere B97.89 [place] [address] [place] [address] 94111- 9034 Jul, Chronic pain G89.29 and Allergic rhinitis J30.9 [place] [address] [place] [address] 88005- 4854 Jul, Bipolar 1 disorder F31.9 ; Posttraumatic stress disorder F43.10 and Social anxiety disorder F40.10 [place] [id number] [place] [address] 80567- 6404 Jul, Bipolar 1 disorder F31.9 [place] [address] [place] [address] 90267- 2116 Jul, Bipolar disorder F31.9 ; Posttraumatic stress disorder F43.10 and Borderline personality disorder F60.3 [facility] [place] [address], [place] [address]- 8378 14 Jul, 2015 [facility] [place] [id number] [place] [address] 65432 2546 14 Jul, 2015 [facility], [place] [id number] [place] [address] [id number] 2546 11 Jul, 2015 [facility], [place] [id number] [place] [address] [id number] 2546 10 Jul, 2015 Anxiety F41.9 [facility], [place] [id number] [place] [address] [id number] 254 10 Jul, 2015 Chronic pain G89.29 and Encounter for therapeutic drug level monitoring Z51.81 [facility], [place] [id number] [place] [address] [id number]- [phone] 09 Jul, 2015 Chronic pain G89.29 and Encounter for therapeutic drug level monitoring Z51.81 [facility], [place] [id number] [place] [address] [phone] 08 Jul, 2015 [facility], [place] [id number] [place] [address] [phone] Jun, [facility], [place] [id number] [place] [address] [phone] Jun, [facility], [place] [id number] [place] [address] [id number] 2546 15 Jun, 2015 [facility], [place] [id number] [place] [address] 05629 2546 15 Jun, 2015 [facility], [place] [id number] [place] [address] [phone] Jun, High risk medication use V58.69 [facility], [place] [id number] [place] [address] [id number] 2546 09 Jun, 2015 [facility], [place] [id number] [place] [address] [phone] Jun, Bipolar 1 disorder F31.9 ; Overdose T50.901A and Chronic pain G89.29 [facility], [place] [id number] [place] [address] [phone] Jun, Bipolar disorder F31.9 ; Posttraumatic stress disorder F43.10 and Borderline personality disorder F60.3 [facility], [place] [id number] [place] [address] 20100- 6302 Jun, [facility] [place] [address] [address]- 3069 Jun, [facility] [place] [address] 58757- 6244 Jun, Keloid L91.0 [facility] [place] [id number] [place] [address] 35010- 6515 Jun, [facility] [place] [address] [address]00- 4261 May, [facility] [place] [id number] [place] [address] 69767- 1081 May, [facility] [place] [id number] [place] [address] 42527- 9593 May, Pelvic pain R10.2 [facility] [place] [id number] [place] [address] 15307- 7476 May, [facility] [place] [id number] [place] [address] 72362- 1119 May, Pain of left thumb M79.645 ; Incisional pain R20.8 ; Pelvic pain R10.2 and Essential hypertension I10 [facility] [place] [id number] [place] [address] 65153- 1455 May, [facility] [place] [id number] [place] [address] 49222- 1321 May, [address] [facility] [id number] [id number] May, Dental examination Z01.20 and Necrosis of pulp K04.1 [facility] [id number] [address] Apr, 2014 [facility] [place] [facility] [id number] 1120 Apr, [facility] [id number] [place] [address] 663199- 3713 Apr, [facility] [place] [facility] [address] [id number] 1645 Apr, [facility] [id number] [place] [address] 669366- 4423 Apr, [facility] [id number] 3558 Apr, [facility] [id number] [place] [address] 43246- 1669 Apr, [facility] [id number] 2229 Apr, [facility] [id number], [place] [address]- 0830 Mar, [facility] [id number], [place] [address]- 5199 Mar, [facility] [id number], [place] [address]- 1287 Mar, [facility] [id number], [place] [address]- 6527 Mar, [facility] [id number], [place] [address]- 9086 Feb, [facility] [place] [facility] [address] [id number], [place] [address]- 4152 Feb, [facility] [id number], [place] [address]- 1862 Feb, [facility] [place] [id number], [place] [address]- 8855 Feb, [facility] [place] [id number], [place] [address]- 3913 Feb, [facility] [place] [id number] [address]- 8726 Feb, [facility] [place] [id number] [place] [address] 82226- 1579 Feb, [facility] [place] [id number] [place] [address] 91798- 5679 Feb, Dermatofibroma of left lower leg D23.72 [facility] [place] [id number] [address]- 2305 Feb, Hematochezia 578.1 ; Low back pain M54.5 ; High risk medication use V58.69 ; Cervicalgia M54.2 and Anxiety F41.[address] [id number] [id number] Feb, Dental examination Z01.20 ; Pulpitis K04.0 and Dental caries, unspecified K02.[address] [id number] [id number] Feb, Dental examination Z01.20 [facility] [place] [id number], [place] [address]- 0028 Jan, [facility] [place] [id number], [place] [address]- 3551 Jan, [facility] [place] [id number], [place] [address]- 8419 Jan, [facility] [place] [id number], [place] [address]- 3538 Jan, [facility] [place] [id number], [place] [address]- 2345 Dec, [facility] [place] [address] [id number] [place] [address]- 1645 Dec, [facility] [place] [facility] [address] [id number] [place] [address]- 7637 Dec, [facility] [place] [facility] [address] [id number] [place] [address]- 2048 Dec, [facility] [place] [facility] [address] [id number] [place] [address]- 6404 Dec, [facility] [place] [facility] [address] [id number] [place] [address]- 1498 Dec, [facility] [place] [facility] [address] [id number] [place] [address]- 9997 Dec, [facility] [place] [facility] [address] [id number] [place] [address]- 5444 Dec, [facility] [address] [address] [facility] [id number] [id number] Nov, Encounter for removal of sutures V58.32 [facility] [place] [facility] [address] [id number] [place] [address]- 0143 Nov, [facility] [place] [facility] [address] [id number][place] [address]- 3500 Nov, [facility] [place] [facility] [address] [id number][place] [address]- 7831 Nov, [facility] [place] [facility] [address] [id number] [address]- 2106 Nov, [facility] [place] [facility] [address] [id number] [place] [address]- 0414 Nov, [facility] [place] [facility] [address] [id number] [place] [address]- 0299 Nov, [facility] [place] [facility] [address] [id number] [address]- 1324 Nov, [facility] [place] [facility] [address] [id number][place] [address]- 4175 Nov, Dermatofibroma 216.9 [facility] [place] [id number]- 7683 Nov, [facility] [place] [id number], [place] [address]- 3073 Nov, [facility] [place] [id number] [place] [address] 39841- 0044 Oct, [facility] [place] [id number] [place] [address] 95063- 6985 Oct, Hematochezia 578.1 ; Abscess 682.9 ; GERD (gastroesophageal reflux disease) 530.81 ; Visual disturbance of one eye 368.9 and High risk medication use V58.69 [facility] [place] [id number], [place] [address]- 2660 Oct, [facility] [place] [id number] [place] [address] 60300- 6475 Oct, [facility] [place] [id number], [place] [address]- 8147 Oct, [facility] [place] [id number] [place] [address] 85617- 6250 September, [facility] [place] [id number], [place] [address]- 4661 September, [facility] [place] [id number], [place] [address]- 9655 September, [facility] [place] [id number], [place] [address]- 4375 September, [facility] [place] [id number] [address]- 3066 September, [facility] [place] [id number], [place] [address]- 4670 September, Colon cancer screening V76.51 [facility] [place] [id number] [place] [address], [place] [address]- 1124 September, [facility] [place] [facility] [address] [id number] [place] [address]- 0104 14 Aug, 2014 [facility] [place] [facility] [address] [id number] [place] [address]- 5777 Aug, [facility] [place] [facility] [address] [id number] [place] [address]- 1858 Jul, [facility] [place] [facility] [address] [id number] [place] [address]- 2714 Jul, [facility] [place] [facility] [address] [id number] [place] [address]- 3694 Jul, [facility] [place] [facility] [address] [id number] [place] [address]- 1080 Jul, [facility] [place] [facility] [address] [id number] [place] [address]- 0361 Jun, [facility] [place] [facility] [address] [id number] [place] [address]- 4365 Jun, [facility] [place] [facility] [address] [id number] [place] [address]- 8397 Jun, [facility] [place] [facility] [address] [facility] [id number] [place] [address]- 1745 Jun, [facility] [place] [facility] [address] [id number] [place] [address]- 2489 Jun, [facility] [place] [facility] [address] [facility] [id number] [place] [address]- 0951 Jun, [facility] [place] [facility] [address] [id number] [place] [address]- 3669 May, [facility] [place] [facility] [address] [id number] [place] [address]- 9099 May, [facility] [place] [facility] [address] [facility] [id number] [place] [address]- 7869 May, [facility] [place] [facility] [address] [id number] [place] [address]- 9028 May, [facility] [place] [facility] [address] [id number] [place] [address]- 0808 May, [facility] [place] [facility] [address] [id number] [place] 4831 May, [facility] [place] [facility] [address] [id number] [place] [address]- 2340 May, [facility] [place] [facility] [address] [id number] [place] [address]- 7619 May, [facility] [place] [facility] [address] [id number] [place] [address]- 8835 Apr, [facility] [place] [facility] [address] [id number] [place] [address]- 7137 Apr, [facility] [place] [facility] [address] [id number] [place] [address]- 4584 Apr, [facility] [place] [facility] [address] [id number] [place] [address]- 6323 Apr, [facility] [place] [facility] [address] [id number] [place] [address]- 4298 Apr, [facility] [place] [facility] [address] [id number] [place] [address]- 5799 Apr, [facility] [place] [facility] [address] [id number] [place] [address]- 9642 Apr, [facility] [place] [facility] [address] [id number] [place] [address]- 2050 Apr, [facility] [place] [facility] [address] [id number] [place] [address]- 3746 Mar, [facility] [place] [facility] [address] [id number] [place] [address]- 1148 Mar, [facility] [place] [facility] [address] [id number], [place] [address]- 3620 Mar, [facility] [place] [facility] [address] [id number] [place] [address]- 0078 Mar, [facility] [place] [facility] [address] [id number] [place] [address]- 2670 Mar, [facility] [place] [facility] [address] [id number] [place] [address]- 7042 Mar, [facility] [place] [facility] [address] [id number] [place] [address]- 3074 Mar, [facility] [place] [facility] [address] [id number] [place] [address]- 3717 Mar, [facility] [place] [facility] [address] [id number] [place] [address]- 6427 Mar, [facility] [place] [facility] [address] [id number] [place] [address]- 7971 Mar, [facility] [place] [facility] [address] [id number] [place] [address]- 3521 Feb, [facility] [place] [facility] [address] [id number] [place] [address]- 8026 Feb, [facility] [place] [facility] [address] [facility] [id number] [place] [address]- 0686 Jan, [facility] [place] [facility] [address] [id number] [place] [address]- 7707 Jan, [facility] [place] [facility] [address] [id number], [place] [address]- 0897 Jan, [facility] [place] [facility] [address] [id number] [place] [address]- 8750 Jan, [facility] [place] [facility] [address] [id number] [place] [address]- 7230 Dec, [facility] [place] [facility] [address] [id number] [place] [address]- 7029 Dec, [facility] [place] [facility] [address] [id number] [place] [address]- 2898 Dec, [facility] [place] [facility] [address] [id number] [place] [address]- 8902 Dec, [facility] [place] [facility] [address] [id number] [place] [address]- 0217 Dec, [facility] [place] [facility] [address] [id number] [place] [address]- 1320 Dec, [facility] [place] [facility] [address] [id number] [place] [address]- 4601 Nov, [facility] [place] [facility] [address] [id number] [place] [address]- 8408 Nov, [facility] [place] [facility] [address] [id number] [place] [address]- 2716 Oct, [facility] [place] [facility] [address] [id number] [place] [address]- 1507 Oct, [facility] [place] [facility] [address] [id number] [place] [address]- 2642 Oct, [facility] [place] [facility] [address] [id number] [place] [address]- 8348 Oct, [facility] [place] [facility] [address] [id number] [place] [address]- 9218 September, [facility] [place] [facility] [address] [id number] [place] [address]- 5926 September, [facility] [place] [facility] [address] [id number] [place] [address]- 6388 September, [facility] [place] [facility] [address] [id number] [place] [address]- 1907 September, [facility] [place] [facility] [address] [id number] [place] [address]- 8785 September, [facility] [place] [facility] [address] [id number] [place] [address]- 2392 September, [facility] [place] [facility] [address] [id number] [place] [address]- 9627 September, [facility] [place] [facility] [address] [id number] [place] [address]- 0565 September, [facility] [place] [facility] [address] [id number] [place] [address]- 8145 Aug, [facility] [place] [facility] [address] [id number] [place] [address]- 2692 Aug, [facility] [place] [facility] [address] [id number] [place] [address]- 5860 Aug, [facility] [place] [facility] [address] [id number] [place] [address]- 8596 Aug, [facility] [place] [facility] [address] [id number] [place] [address]- 3214 Aug, [facility] [place] [facility] [address] [id number] [place] [address]- 5430 Aug, [facility] [place] [facility] [address] [id number] [place] [address]- 3475 Jul, [facility] [place] [facility] [address] [id number] [place] [address]- 8072 Jul, [facility] [place] [facility] [address] [id number] [place] [address]- 7295 Jul, [facility] [place] [facility] [address] [id number], [place] [address]- 6655 Jul, [facility] [place] [facility] [address] [id number] [place] [address]- 9578 Jun, [facility] [place] [facility] [address] [id number] [place] [address]- 5306 Jun, [facility] [place] [facility] [address] [facility] [id number] [place] [address]- 4634 Jun, [facility] [place] [facility] [address] [id number] [place] [address]- 4272 Jun, [facility] [address] [id number] [place] [address]- 4520 Jun, [facility] [address] [id number] [place] [address]- 8986 Jun, [facility] [address] [id number] [place] [address]- 1339 May, [facility] [address] [id number] [place] [address]- 2350 May, [facility] [address] [id number] [place] [address]- 2325 May, [facility] [address] [id number] [place] [address]- 0676 May, [facility] [address] [id number] [place] [address]- 4263 May, [facility] [address] [id number] [place] [address]- 7239 May, [facility] [address] [id number] [place] [address]- 3163 May, [facility] [address] [id number] [place] [address]- 4953 May, [facility] [address] [id number] [place] [address]- 7709 Apr, [facility] [address] [place] [id number] Apr, [facility] [address] [id number] [place] [address]- 8393 Apr, [facility] [address] [id number] [place] [address]- 3937 Apr, [facility] [address] [id number] [place] [address]- 1020 Apr, [facility] [address] [id number] [place] [address]- 7100 Apr, [facility] [place] [facility] [address] [id number] [place] [address]- 8601 Apr, [facility] [place] [facility] [address] [id number] [place] [address]- 8884 Apr, [facility] [place] [facility] [address] [id number] [place] [address]- 6949 Apr, [facility] [place] [facility] [address] [id number] [place] [address]- 4558 Mar, [facility] [place] [facility] [address] [id number] [place] [address]- 8144 Mar, [facility] [place] [facility] [address] [id number] [place] [address]- 8045 Mar, [facility] [place] [facility] [address] [id number] [place] [address]- 5977 Mar, [facility] [place] [facility] [address] [id number] [place] [address]- 2839 Mar, [facility] [place] [facility] [address] [id number] [place] [address]- 6557 Feb, [facility] [place] [facility] [address] [id number] [place] [address]- 1003 Feb, [facility] [place] [facility] [address] [id number] [place] [address]- 1860 14 Feb, 2013 [facility] [place] [facility] [address] [id number] [place] [address]- 5192 14 Feb, 2013 [facility] [place] [facility] [address] [id number] [place] [address]- 4320 25 Jan, 2013 [facility] [place] [facility] [address] [id number] [place] [address]- 0960 24 Jan, 2013 [facility] [place] [facility] [address] [id number], [place] [address]- 4976 Jan, [facility] [address] [id number] [place] [address]- 2546 Dec, [facility] [place] [facility] [address] [id number] [place] [address]- 2546 Dec, [facility] [place] [facility] [address] [id number], [place] [address]- 2546 Dec, [facility] [address] [id number] [id number] Nov, [facility] [address] [facility] [id number][place] [id number] Oct, [facility] [address] [id number] [place] [address] Oct, [facility] [address] [facility] [id number], [place] [address] September, [facility] [address] [id number], [place] [address] September, [facility] [address] [id number], [place] [address] September, [facility] [address] [facility] [id number], [place] [address] September, [facility] [address] [facility] [id number], [place] [address] September, [facility] [place] [facility] [address] [id number], [place] [address] Jul, [facility] [place] [facility] [address] [id number], [place] [address] Jul, [facility] [place] [facility] [address] [id number] [place] [address] Jul, [facility] [place] [facility] [address] [id number], [place] [address] Jul, [facility] [place] [facility] [address] [id number], [place] [address] Jun, [facility] [place] [facility] [address] [id number] [place] [address] Jun, [facility] [place] [facility] [address] [id number] [place] [address] Jun, [facility] [place] [facility] [address] [facility] [id number] [place] [address] Jun, [facility] [place] [facility] [address] [id number] [place] [address] May, [facility] [place] [facility] [address] [id number] [place] [address] Mar, [facility] [place] [facility] [address] [id number] [place] [address] Mar, [facility] [address] [id number] [place] [address] Mar, [facility] [place] [facility] [address] [id number] [place] [address] Mar, [facility] [place] [facility] [address] [facility] [id number] [place] [address] Mar, [facility] [place] [facility] [address] [facility] [id number] [place] [address] Mar, [facility] [place] [facility] [address] [id number] [place] [address] Mar, [facility] [place] [facility] [address] [id number], [place] [address] Mar, [facility] [place] [facility] [address] [id number], [place] [address] Feb, [facility] [place] [facility] [address] [id number] [place] [address] Feb, [facility] [place] [facility] [address] [facility] [id number], [place] [address] Feb, [facility] [place] [facility] [address] [id number], [place] [address] Feb, [facility] [place] [facility] [address] [id number] [place] [address] Feb, [facility] [place] [facility] [address] [facility] [id number] [place] [address] Feb, [facility] [place] [facility] [address] [id number] [place] [address] Feb, [facility] [address] [id number] [place] [id number] Jan, [facility] [address] [id number] [place] [id number] Dec, [facility] [address] [facility] [id number] [place] [id number] Dec, [facility] [place] [facility] [address] [id number], [place] [address] Nov, [facility] [place] [facility] [address] [facility] [id number] [place] [address] Nov, [facility] [place] [facility] [address] [id number], [place] [address] Oct, [facility] [place] [facility] [address] [facility] [id number], [place] [address] Jul, [facility] [place] [facility] [address] [id number], [place] [address] Jul, [facility] [place] [facility] [address] [facility] [id number], [place] [address] May, [facility] [place] [facility] [address] [id number] [place] [address] May, [facility] [place] [facility] [address] [facility] [id number] [place] [address] Nov, [facility] [place] [facility] [address] [facility] [id number] [place] [address] Mar, [facility] [place] [facility] [address] [id number], [place] [address] Dec, [facility] [place] [id number], [place] [address] Nov, [facility] [place] [id number], [place] [address] Aug, [facility] [place] [id number], [place] [address] Apr, [facility] [place] [id number], [place] [address] Apr, [facility] [place] [id number], [place] [address] Mar, [facility] [place] [id number], [place] [address] Feb, [facility] [place] [id number], [place] [address] September, [facility] [place] [id number], [place] [address] Jun, [facility] [place] [id number], [place] [address] Mar, IMMUNIZATIONS No Known Immunizations SOCIAL HISTORY Never Assessed REASON FOR VISIT f/u PLAN OF CARE Activity Details Follow Up 3 Weeks Reason: F/U VITAL SIGNS MEDICATIONS Unknown Medications RESULTS No Results PROCEDURES Procedure Date Ordered Result Body Site Psychotherapy, patient &/family, 45 minutes, established patient Jul 11, 2017 INSTRUCTIONS MEDICATIONS ADMINISTERED No Known Medications [...] hernia Hospitalization History Went by ambulance to [place] as unresponsive 05/2015 Hospitalization History [place] sent her to [facility] for a psych hold 05/2015
--- OUTSIDE RECORDS SUMMARY | 2018-03-15 11:32 | XMS REPORT ---
Author Author HERBERT MCGOWAN Organization [employer] Address Unknown Phone Unavailable Care Team Providers Care Securities Broker Name Role Phone HERBERT MCGOWAN CP Unavailable [...] Start Date End Date Status Dosage Hydrocodone-Acetaminophen [facility] [address]-95 7.5-325 MG 2 times a day July 29, 2014 1 tablet by Oral route PRN Results No Known Results Summary Purpose [employer] Submission
--- OUTSIDE RECORDS SUMMARY | 2018-03-15 11:33 | XMS REPORT ---
Author Author HERBERT MCGOWAN Organization [employer] Address Unknown Phone Unavailable Care Team Providers Care Social Problems Specialist Name Role Phone HERBERT MCGOWAN CP [...] Start Date End Date Status Dosage Cymbalta [facility] [address]-11 30 MG Orally Once a day 1 capsule along with 60mg Tizanidine HCl [facility] [address]-99 2 MG Orally 2 times a day Feb 18, 2015 1 tablet as needed Results No Known Results Summary Purpose [employer] Submission
--- OUTSIDE RECORDS SUMMARY | 2018-03-15 11:33 | XMS REPORT ---
Author Author HERBERT MCGOWAN Organization [employer] Address Unknown Phone Unavailable Care Team Providers Care Technical Administrator Name Role Phone HERBERT MCGOWAN CP Unavailable [...]
--- OUTSIDE RECORDS SUMMARY | 2018-03-15 11:33 | XMS REPORT ---
Author Author CARYL FRANZ Organization [facility] Address [address] [place] [address] Care Team Providers Care Gas Meter Checker Name Role Phone OSEI CARYL Unavailable PROBLEMS Type Condition ICD9-CM Code IUI16-KA Code Onset Dates Condition Status SNOMED Code Assessment Bipolar 1 disorder F31.9 13 Jan, 2016 Active 084253948 Problem Dehydration 276.51 Active 10551586 Problem Hypopotassemia 276.8 Active 96117196 Problem Bilateral low back pain with sciatica, sciatica laterality unspecified M54.40 Active 759725876 Problem Urinary tract infection, site not specified 599.0 Active 63198692 Problem Visual disturbance H53.9 Active 58805953 Problem Blood in stool 578.1 Active 006029492 Problem Borderline personality disorder F60.3 Active 65836466 Problem Bipolar disorder F31.9 Active 01008167 Problem Posttraumatic stress disorder F43.10 Active 12082283 Problem Essential (primary) hypertension I10 Active 93885670 Problem Social anxiety disorder F40.10 Active 29389837 Problem Irritable bowel syndrome 564.1 Active 28155716 Problem 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 Active 97869055 Problem Abdominal pain, generalized 789.07 Active 136749438 Problem Overdose T50.901A Active 50481124 Problem Chronic pain G89.29 Active 63148885 Problem Encounter for dental examination and cleaning without abnormal findings Z01.20 Active 706437247 Problem Bipolar 1 disorder F31.9 Active 787277207 Problem Essential hypertension, benign 401.1 Active 5640412 Problem Cervicalgia 723.1 Active 20174987 Problem Nausea alone 787.02 Active 193101554 Problem Esophageal reflux 530.81 Active 063164664 Problem Other dyspnea and respiratory abnormalities 786.09 Active 797568052 Problem Pelvic pain R10.2 Active 72632937 Problem Hypertrophy of breast 611.1 Active 167225086 Problem Screening mammogram for high-risk patient V76.11 Active 52313076 ALLERGIES Unknown Allergies SOCIAL HISTORY No smoking Hx information available PLAN OF CARE VITAL SIGNS Height 62 in 2016-01-27 Weight 253.7 lbs 2016-01-27 Heart Rate 86 bpm 2016-01-27 Respiratory Rate 22 2016-01-27 BMI 46.40 kg/m2 2016-01-27 MEDICATIONS Medication Instructions Dosage Frequency Start Date End Date Duration Status Tizanidine HCl 2 MG Orally 2 times a day 1 tablet as needed 12h Feb, 90 days Active Lidocaine HCl-Epinephrine 10-0.1 % Active Albuterol Sulfate (2.5 MG/3ML) 0.083% Inhalation every 4 hrs 3 ml 4h Active PrednisoLONE Sodium Phosphate 1 % Ophthalmic 4 times a day 1 drop into affected eye 6h Active Cymbalta 60 mg Orally Once a day with Cymbalta 30mg. Total dose is 90mg 1 capsule Active TENS Unit device Use as directed Active Lipitor 20 mg Orally Once a day 1 tablet 24h 90 days Active Vagifem 10 MCG 1 tablet Active Cymbalta 30 MG Orally Once a day with Cymbalta 60mg. Total dose 90mg 1 capsule along with 60mg Active Fish Oil 1000 MG Orally Once a day 1 capsule 24h Active Creon 35672 UNIT Orally 3 times a day 1 capsule before meals 8h Nov, 90 days Active Carafate 1 GM Orally 4 times a day 1 tablet on an empty stomach 6h 90 days Active Doxepin HCl 10 mg Orally Once at bedtime for sleep 1 capsule at bedtime September, Active Lidoderm 5 % Externally Once a day 1 patch to intact skin remove after 12 hours 24h Active Depo-Estradiol 5 MG/ML 1 ml Active Dicyclomine HCl 20 mg Orally Four times a day 1 tablet 6h 30 days Active Neurontin 300 MG Orally 3 times a day 1 capsule 8h September, Active Loratadine 10 mg Orally 2 times a day 1 tablet 12h September, 90 days Active Lamotrigine 150 MG Orally Once a day 1 tablet 24h Active Bentyl 20 MG 1 tablet by Oral route every 6 hours PRN May, Active Imitrex 50 mg Orally Once a day 1 tablet as needed at start of migraine 24h Active Hyzaar 50-12.5 MG Orally Once a day 1 tablet 24h September, 90 days Active Promethazine HCl 25 MG Orally every 6 hours prn 1 tablet as needed Active Protonix 20 mg Orally Once a day 1 tablet 24h 23 Oct, 2014 90 days Active Ipratropium [place] 0.03 % Nasally Twice a day 2 applications in each nostril as needed 12h 28 Jul, 2015 Active Combivent Respimat 20-100 MCG/ACT Inhalation Four times a day 1 puff 6h Active RESULTS No Results PROCEDURES Procedure Date Ordered Related Diagnosis Body Site Office Visit, Est Pt., Level 4 Jan 27, 2016 IMMUNIZATIONS No Known Immunizations
--- OUTSIDE RECORDS SUMMARY | 2018-03-15 11:34 | XMS REPORT ---
Author Author SAMI SUAREZ [facility] Address [address] [place] [address] Care Team Providers Care Melangeur Operator Name Role Phone SAMI SUAREZ Unavailable PROBLEMS Type Condition ICD9-CM Code UBF74-MR Code Onset Dates Condition Status SNOMED Code Problem Acquired hypothyroidism E03.9 Active 458289716 Problem Morbid obesity, unspecified obesity type E66.01 Active 614406955 Problem Gastro-esophageal reflux disease without esophagitis K21.9 Active 561122414 Problem Blindness of right eye H54.40 Active 426188324 Problem Other chronic pain G89.29 Active 33433179 Problem Essential hypertension I10 Active 62477162 Problem Psoriasis L40.9 Active 9085243 Problem Lumbago with sciatica, left side M54.42 Active 393139034 Problem Relationship problem with family member Z63.8 Active 152576792 Problem Visual disturbance H53.9 Active 21174032 Problem Bipolar disorder F31.9 Active 04050238 Problem Pelvic pain R10.2 Active 88635395 Problem Bilateral low back pain with sciatica, sciatica laterality unspecified M54.40 Active 032856088 Problem Chronic pain G89.29 Active 34380745 Problem Overdose T50.901A Active 53282777 Problem Posttraumatic stress disorder F43.10 Active 04174911 Problem Social anxiety disorder F40.10 Active 37037991 Problem Borderline personality disorder F60.3 Active 61490455 Problem Obstructive sleep apnea G47.33 Active [id number] ALLERGIES No Information ENCOUNTERS Encounter Location Date Diagnosis [facility], [place] [id number] [address] Aug, [facility], [place] [id number] [address] 5567 Jul, [facility], [place] [id number] [address] 4[address] Jul, [facility], [place] [address] [place] [address] 75156- 0726 Jun, Bipolar disorder F31.9 ; Posttraumatic stress disorder F43.10 and Borderline personality disorder F60.3 [facility], [place] [address] [place] [address] 52845- 4872 Jun, Blindness of right eye H54.40 and Acquired hypothyroidism E03.9 [facility], [place] [id number] [place] [address] 17607- 3557 Jun, [facility], [place] [id number] [place] [address] 36430- 2159 May, Posttraumatic stress disorder F43.10 ; Social anxiety disorder F40.10 and Bipolar disorder F31.9 [facility], [place] [id number] [place] [address] 96925- 4653 May, Bipolar disorder F31.9 ; Posttraumatic stress disorder F43.10 and Borderline personality disorder F60.3 [facility], [place] [address] [place] [address] 55982- 8823 May, [facility], [place] [id number] [place] [address] 01384- 8326 May, [facility], [place] [address] [place] [address] 48548- 2509 Apr, Bipolar disorder F31.9 ; Posttraumatic stress disorder F43.10 and Borderline personality disorder F60.3 [address] [id number] Apr, [facility], [place] [id number] [place] [address] 57290- 3524 Apr, [facility], [place] [address] [place] [address] 33005- 5134 Mar, Hydradenitis L73.2 [facility], [place] [address] [place] [address] 34552- 9887 Mar, Lumbago with sciatica, left side M54.42 ; Other chronic pain G89.29 ; Morbid obesity, unspecified obesity type E66.01 ; Hydradenitis L73.2 and BMI 40.0-44.9, adult Z68.41 [facility], [place] [address] [place] [address] 70940- 3883 Mar, Bipolar disorder F31.9 ; Posttraumatic stress disorder F43.10 and Borderline personality disorder F60.3 [address] [place] [id number] [place] [address] 11425- 3669 Mar, Social anxiety disorder F40.10 ; Bipolar disorder F31.9 and Relationship problem with family member Z63.8 [place] [id number] [place] [address] 75009- 3083 Mar, [facility] [address] [id number] [id number] Mar, Dental examination Z01.20 [address] [place] [id number] [place] [address] 41088- 9111 Mar, [place] [id number] [place] [address] 29701- 8405 Feb, Bipolar disorder F31.9 ; Posttraumatic stress disorder F43.10 and Borderline personality disorder F60.3 [facility] [id number] [id number] Feb, [place] [id number] [place] [address] 87688- 9078 14 Jan, 2017 Bipolar disorder F31.9 ; Posttraumatic stress disorder F43.10 and Borderline personality disorder F60.[address] [facility] [address] [id number] [id number] Jan, [place] [address] [place] [address] 72990- 2845 Jan, [facility] [id number] [place] [address] [id number] Jan, [place] [address], [place] [address]- 7366 Dec, Bipolar disorder F31.9 ; Posttraumatic stress disorder F43.10 and Borderline personality disorder F60.3 [place] [address], [place] [address] 1925 Dec, [place] [address] [place] [address] 90055- 2386 Dec, [address] [id number] Dec, [place] [address] [place] [address] 38724- 8426 Nov, Bipolar 1 disorder F31.9 ; Posttraumatic stress disorder F43.10 and Social anxiety disorder F40.10 [address] [place] [address] 52501- 9373 Nov, Bipolar disorder F31.9 ; Posttraumatic stress disorder F43.10 and Borderline personality disorder F60.3 [address] [place] [address] 23823- 1908 Nov, Morbid obesity, unspecified obesity type E66.01 [address] [place] [address] 10228- 2510 Nov, [address] [id number] [id number] Oct, Encounter for dental examination and cleaning without abnormal findings Z01.20 [address] [place] [address] 36043- 5921 15 Oct, 2016 Morbid obesity, unspecified obesity type E66.01 and Acute seasonal allergic rhinitis due to pollen J30.1 [address] [place] [address] 93129- 8416 Oct, Bipolar disorder F31.9 ; Posttraumatic stress disorder F43.10 and Borderline personality disorder F60.3 [address] [place] [address] 19742- 3009 September, Morbid obesity, unspecified obesity type E66.01 and Psoriasis L40.9 [place] [id number] [place] [address] 99918- 9357 September, Bipolar disorder F31.9 ; Posttraumatic stress disorder F43.10 and Borderline personality disorder F60.3 [place] [id number] [place] [address] 81852- 2047 September, Chronic pain G89.29 [place] [id number] [place] [address] 76517- 0306 Aug, Other acute nonsuppurative otitis media of right ear H65.191 and Morbid obesity, unspecified obesity type E66.01 [place] [id number] [place] [address] 20831- 1485 Aug, Bipolar 1 disorder F31.9 ; Posttraumatic stress disorder F43.10 and Social anxiety disorder F40.10 [place] [address] 04927- 3545 Aug, Bipolar disorder F31.9 ; Posttraumatic stress disorder F43.10 and Borderline personality disorder F60.3 [place] [id number] [place] [address] 53645- 4391 Jul, Morbid obesity due to excess calories E66.01 ; Gastro- esophageal reflux disease without esophagitis K21.9 and Chronic pain G89.29 [place] [id number] [place] [address] 83523- 9509 Jul, Morbid obesity due to excess calories E66.01 [place] [id number] [place] [address] 50792- 6779 Jul, [place] [id number] [place] [address] 29494- 1436 Jul, [place] [id number] [place] [address] 52378- 7270 Jul, Morbid obesity due to excess calories E66.01 [place] [address], [place] [address]- 3861 Jul, Bipolar disorder F31.9 ; Posttraumatic stress disorder F43.10 and Borderline personality disorder F60.3 [facility], [place] [address], [place] [address]- 6412 16 Jun, 2016 [facility], [place] [id number] [place] [address] 23925- 5479 15 Jun, 2016 Morbid obesity due to excess calories E66.01 [facility], [place] [address] [place] [address] 99228- 8798 Jun, [facility], [place] [id number] [place] [address] 58749- 9500 09 Jun, 2016 Morbid obesity, unspecified obesity type E66.01 [facility], [place] [address] [place] [address] 41122- 0790 03 Jun, 2016 Bipolar disorder F31.9 ; Posttraumatic stress disorder F43.10 and Borderline personality disorder F60.3 [facility], [place] [address], [place] [address]- 3244 Jun, [facility], [place] [address] [place] [address] 92620- 6288 03 Jun, 2016 [facility], [place] [address], [place] [address]- 5569 02 Jun, 2016 Acquired hypothyroidism E03.9 and Morbid obesity due to excess calories E66.01 [facility], [place] [address], [place] [address]- 0954 May, Bipolar disorder F31.9 ; Posttraumatic stress disorder F43.10 and Borderline personality disorder F60.3 [facility], [place] [address], [place] [address]- 6266 Apr, Bipolar 1 disorder F31.9 ; Posttraumatic stress disorder F43.10 and Social anxiety disorder F40.[address] [id number][place] [id number] 12 Apr, 2016 Encounter for dental examination Z01.20 [facility], [place] [address] [place] [address] 81487- 7389 08 Apr, 2016 [facility], [place] [address] [place] [address] 74850- 0573 08 Apr, 2016 Acquired hypothyroidism E03.9 [facility], [place] [id number] [place] [address] 549213- 3555 Apr, Acquired hypothyroidism E03.9 [facility], [place] [id number] [place] [address] 82455- 2673 Apr, Bipolar disorder F31.9 ; Posttraumatic stress disorder F43.10 and Borderline personality disorder F60.3 [facility], [place] [address] [place] [address] 24844- 2170 Apr, Acquired hypothyroidism E03.[address] [id number] [id number] Mar, Encounter for dental examination and cleaning without abnormal findings Z01.20 [facility], [place] [address] [place] [address] 58831- 9530 08 Mar, 2016 [facility], [place] [id number] [place] [address] 34757- 8267 Mar, Bipolar disorder F31.9 ; Posttraumatic stress disorder F43.10 and Borderline personality disorder F60.3 [facility], [place] [address] [place] [address] 40069- 8288 Mar, Essential (primary) hypertension I10 [facility], [place] [address] [place] [address] 34313- 0348 Feb, [facility], [place] [id number] [place] [address] 73387- 0624 Feb, [facility], [place] [address] [place] [address] 67994- 6427 Feb, Pelvic pain R10.2 ; Lipid screening Z13.220 ; Fatigue, unspecified type R53.83 and Weight gain R63.5 [facility], [place] [address], [place] [address]- 6305 Feb, Bipolar disorder F31.9 ; Posttraumatic stress disorder F43.10 and Borderline personality disorder F60.3 [facility], [place] [address] [place] [address] 32669- 7240 Feb, [facility], [place] [id number] [place] [address] 50652- 1554 Feb, [facility], [place] [address] [place] [address] 55037- 9081 30 Jan, 2016 Obstructive sleep apnea syndrome G47.33 [facility], [place] [id number] [place] [address] 67814- 7112 26 Jan, [address] [id number] [id number] 19 Jan, 2016 Dental examination Z01.20 [facility], [place] [address] [place] [address] 44514- 8234 13 Jan, 2016 Bipolar 1 disorder F31.9 ; Posttraumatic stress disorder F43.10 and Social anxiety disorder F40.10 [facility], [place] [address] [place] [address] 05298- 4485 Jan, Bipolar disorder F31.9 ; Posttraumatic stress disorder F43.10 and Borderline personality disorder F60.3 [facility], [place] [address] [place] [address] 79567- 1696 Jan, Sciatica of left side M54.32 [facility], [place] [id number] [place] [address] 49559- 4767 Jan, [facility], [place] [id number] [place] [address] 39863- 3460 Dec, [facility], [place] [id number] [place] [address] 82670- 4691 Dec, [facility], [place] [address] [place] [address]- 0968 Dec, Bipolar disorder F31.9 ; Posttraumatic stress disorder F43.10 and Borderline personality disorder F60.3 [place] [id number] [place] [address] 23305- 3720 Nov, [place] [id number] [place] [address] 70873- 9432 Nov, Insomnia, unspecified type G47.00 [place] [id number] [place] [address] 95364- 1118 Nov, Bipolar disorder F31.9 ; Posttraumatic stress disorder F43.10 and Borderline personality disorder F60.3 [place] [id number] [place] [address] 40976- 8647 Nov, [place] [id number] [place] [address] 87319- 1912 Nov, [place] [id number] [place] [address] 39812- 7482 Oct, Bipolar disorder F31.9 ; Posttraumatic stress disorder F43.10 and Borderline personality disorder F60.3 [place] [id number] [place] [address] 46895- 1516 Oct, [place] [id number] [place] [address] 19100- 5291 Oct, Essential (primary) hypertension I10 [place] [id number] [place] [address] 30582- 9234 September, Bipolar 1 disorder F31.9 ; Posttraumatic stress disorder F43.10 and Social anxiety disorder F40.10 [place] [id number] [place] [address] 24390- 7189 September, Bipolar disorder F31.9 ; Posttraumatic stress disorder F43.10 and Borderline personality disorder F60.[address] [id number] [id number] 18 May, 2016 Encounter for dental examination and cleaning without abnormal findings Z01.20 [facility], [place] [address], [place] [address]- 6262 September, [facility], [place] [id number] [place] [address] 42719- 9820 September, [facility], [place] [id number] [place] [address] 44799- 5180 Aug, [facility], [place] [id number] [place] [address] 99638- 9274 Aug, Bipolar disorder F31.9 ; Posttraumatic stress disorder F43.10 and Borderline personality disorder F60.3 [place] [id number] [place] [address] 99636- 6954 Aug, [place] [id number] [place] [address] 10098- 8695 Aug, [facility], [place] [id number] [place] [address] 89638- 8194 Aug, [facility] [id number] [place] [address] [id number] Jul, Acute nasopharyngitis [common cold] J00 and Other viral agents as the cause of diseases classified elsewhere B97.89 [facility], [place] [address] [place] [address] 04779- 9393 Jul, Chronic pain G89.29 and Allergic rhinitis J30.9 [place] [id number] [place] [address] 45088- 0566 Jul, Bipolar 1 disorder F31.9 ; Posttraumatic stress disorder F43.10 and Social anxiety disorder F40.10 [place] [id number] [place] [address] 52063- 8072 Jul, Bipolar 1 disorder F31.9 [place] [address] [place] [address] 45665- 2835 Jul, Bipolar disorder F31.9 ; Posttraumatic stress disorder F43.10 and Borderline personality disorder F60.3 [facility], [place] [address], [place] [address]- 4455 14 Jul, 2015 [facility], [place] [id number] [place] [address] 01796- 8466 14 Jul, 2015 [facility], [place] [address], [place] [address] 2546 11 Jul, 2015 [facility], [place] [id number] [place] [address] 13814 2546 10 Jul, 2015 Anxiety F41.9 [facility], [place] [address] [place] [address] 49920 254 10 Jul, 2015 Chronic pain G89.29 and Encounter for therapeutic drug level monitoring Z51.81 [facility], [place] [address], [place] [address]- 2150 09 Jul, 2015 Chronic pain G89.29 and Encounter for therapeutic drug level monitoring Z51.81 [facility], [place] [address], [place] [address]- 8229 08 Jul, 2015 [facility], [place] [address] [place] [address] 93935- 4836 Jun, [facility], [place] [address], [place] [address]- 2729 Jun, [facility], [place] [address], [place] [address]- 3096 15 Jun, 2015 [facility], [place] [address], [place] [address] 2546 15 Jun, 2015 [facility], [place] [address], [place] [address]- 9941 Jun, High risk medication use V58.69 [facility], [place] [address], [place] [address]- 2546 Jun, [facility], [place] [address] [place] [address] 13473- 1633 09 Feb, 2016 Bipolar 1 disorder F31.9 ; Overdose T50.901A and Chronic pain G89.29 [facility], [place] [id number] [place] [address] 80678- 1502 Jun, Bipolar disorder F31.9 ; Posttraumatic stress disorder F43.10 and Borderline personality disorder F60.3 [facility] [place] [id number] [place] [address] 32785- 6632 Jun, [facility], [place] [address] 37663- 4356 Jun, [facility] [place] [address] 48729- 8219 Jun, Keloid L91.0 [facility], [place] [id number] [place] [address] 84442- 7694 Jun, [facility], [place] [address] 39979- 6788 May, [facility] [place] [id number] [place] [address] 93185- 1786 May, [facility] [place] [id number] [place] [address] 71866- 0136 May, Pelvic pain R10.2 [facility], [place] [id number] [place] [address] 03998- 4111 May, [facility], [place] [id number] [place] [address] 16710- 6676 May, Pain of left thumb M79.645 ; Incisional pain R20.8 ; Pelvic pain R10.2 and Essential hypertension I10 [facility] [place] [id number] [place] [address] [phone]- [phone] May, [facility] [place] [id number] [place] [address] [phone]- 7069 May, [address] [id number] [id number] May, Dental examination Z01.20 and Necrosis of pulp K04.1 [facility], [place] [id number] [address] [address] Apr[address] [facility] [address] [id number] [address] Apr, [facility] [id number] [place] [address] [id number] Apr, [facility] [address] [facility] [id number] [place] [address] 19859- 2840 Apr, [facility] [id number] [place] [address] [phone]- 7624 Apr, [facility] [id number] [place] [address] 52029- 7433 Apr, [facility] [id number] [place] [address] 97506- 6321 Apr, [facility] [id number] [address] Apr, [facility] [id number] [place] [address] 75630- 5125 Mar, [facility], [place] [id number], [place] [address] Mar, [facility] [id number] [address] Mar, [facility] [address] [id number] [address] Mar, [facility] [id number] [place] [address] 69267- 1811 Feb, [facility] [address] [id number] [address] Feb, [facility] [id number] [place] [address] 07396- 6777 Feb, [facility] [place] [id number], [place] [address] 49[address] Feb, [facility] [place] [address], [place] [address] 4129 Feb, [facility] [place] [id number], [place] [address] 4189 Feb, [facility] [place] [id number] [place] [address] 69112- 4111 Feb, [facility] [place] [address]005[address], [place] [address] 57[address] Feb, Dermatofibroma of left lower leg D23.72 [facility] [place] [id number] [place] [address] 88874- 9167 Feb, Hematochezia 578.1 ; Low back pain M54.5 ; High risk medication use V58.69 ; Cervicalgia M54.2 and Anxiety F41.[address] [id number] [id number] Feb, Dental examination Z01.20 ; Pulpitis K04.0 and Dental caries, unspecified K02.[address] [id number] [id number] Feb, Dental examination Z01.20 [facility] [place] [address]005[address], [place] [address] 4999 Jan, [facility] [place] [address]00565[address], [place] [address] 4219 Jan, [facility] [place] [address], [place] [address] 3758 Jan, [facility] [place] [address]005[address], [place] [address] 3449 Jan, [facility] [place] [id number], [place] [address]- 7529 Dec, [facility] [place] [address] [facility] [id number] [place] [address]- 2662 Dec, [facility] [place] [facility] [address] [id number] [place] [address]- 8193 Dec, [facility] [place] [facility] [address] [id number] [place] [address]- 2938 Dec, [facility] [address] [id number] [place] [address]- 8021 Dec, [facility] [place] [facility] [address] [id number] [place] [address]- 3701 Dec, [facility] [place] [facility] [address] [id number] [place] [address]- 4773 Dec, [facility] [address] [facility] [id number] [place] [address]- 5049 Dec, [facility] [place] [address] [facility] [id number] [id number] Nov, Encounter for removal of sutures V58.32 [facility] [address] [id number] [place] [address] 0244 Nov, [facility] [address] [id number] [place] [address]- 5779 Nov, [facility] [address] [id number], [place] [address] 1585 Nov, [facility] [place] [facility] [address] [id number], [place] [address] 4834 Nov, [facility] [place] [facility] [address] [id number] [place] [address]- 5913 Nov, [facility] [place] [facility] [address] [id number] [place] [address]- 1424 Nov, [facility] [place] [facility] [address] [id number], [place] [address]- 7324 Nov, [facility] [place] [facility] [address] [id number] [place] [address] 8549 Nov, Dermatofibroma 216.9 [facility] [place] [id number] [place] [address] 42686- 4098 Nov, [facility] [place] [id number] [place] [address] 16543- 0903 Nov, [facility] [place] [id number] [place] [address] 21913- 6715 Oct, [facility] [place] [id number] [place] [address] 55999- 3565 Oct, Hematochezia 578.1 ; Abscess 682.9 ; GERD (gastroesophageal reflux disease) 530.81 ; Visual disturbance of one eye 368.9 and High risk medication use V58.69 [facility] [place] [id number] [place] [address] 79500- 1553 Oct, [facility] [place] [id number] [place] [address] 48037- 2626 Oct, [facility] [place] [id number] [place] [address] 16736- 0278 Oct, [facility] [place] [id number] [place] [address] 23419- 7022 September, [facility] [place] [address]00565[address], [place] [address]- 1856 September, [facility] [place] [id number] [place] [address] 38535- 7032 September, [facility] [place] [address]00565[address], [place] [address]- 5094 September, [facility] [place] [id number] [place] [address] 476845- 2732 September, [facility] [place] [address]005[address] 0279 September, Colon cancer screening V76.51 [facility] [place] [id number] [place] [address] 05975- 3532 September, [facility] [place] [facility] [address] [id number] [place] [address]- 1807 Aug, [facility] [place] [facility] [address] [id number] [place] [address]- 2035 Aug, [facility] [place] [facility] [address] [facility] [id number] [place] [address]- 3377 Jul, [facility] [place] [facility] [address] [id number] [place] [address]- 4457 Jul, [facility] [place] [facility] [address] [id number] [place] [address]- 6854 Jul, [facility] [place] [facility] [address] [facility] [id number] [place] [address]- 2092 Jul, [facility] [place] [facility] [address] [facility] [id number] [place] [address]- 9360 Jun, [facility] [place] [facility] [address] [facility] [id number] [place] [address]- 1439 Jun, [facility] [place] [facility] [address] [facility] [id number] [place] [address]- 1896 Jun, [facility] [place] [facility] [address] [facility] [id number] [place] [address]- 6935 Jun, [facility] [place] [facility] [address] [facility] [id number] [place] [address]- 6993 Jun, [facility] [place] [facility] [address] [facility] [id number], [place] [address]- 9410 Jun, [facility] [place] [facility] [address] [id number], [place] [address]- 6164 May, [facility] [place] [facility] [address] [id number] 3087 May, [facility] [place] [facility] [address] [facility] [id number], [place] [address]- 8619 May, [facility] [place] [facility] [address] [id number] [place] [address]- 2365 May, [facility] [place] [facility] [address] [id number] [place] [address]- 4998 May, [facility] [place] [facility] [address] [id number] [place] [address]- 3332 May, [facility] [place] [facility] [address] [id number] [place] [address]- 7626 May, [facility] [place] [facility] [address] [id number] [place] [address]- 9939 May, [facility] [place] [facility] [address] [id number] [place] [address]- 4172 Apr, [facility] [place] [facility] [address] [id number] [place] [address]- 7509 Apr, [facility] [place] [facility] [address] [id number] [place] [address]- 2412 Apr, [facility] [place] [facility] [address] [id number] [place] [address]- 1226 Apr, [facility] [place] [facility] [address] [id number] [place] [address]- 4847 Apr, [facility] [place] [facility] [address] [id number] [place] [address]- 8446 Apr, [facility] [place] [facility] [address] [id number] [place] [address]- 7583 Apr, [facility] [place] [facility] [address] [id number] [place] [address]- 1236 Apr, [facility] [place] [facility] [address] [id number] [place] [address]- 6725 Mar, [facility] [place] [facility] [address] [id number] [place] [address]- 5068 Mar, [facility] [place] [facility] [address] [id number] [place] [address]- 7097 Mar, [facility] [place] [facility] [address] [id number] [place] [address]- 4701 Mar, [facility] [place] [facility] [address] [id number] [place] [address]- 0675 Mar, [facility] [place] [facility] [address] [id number] [place] [address]- 4775 Mar, [facility] [place] [facility] [address] [id number] [place] [address]- 2749 Mar, [facility] [place] [facility] [address] [id number] [place] [address]- 1007 Mar, [facility] [place] [facility] [address] [id number] [place] [address]- 5215 Mar, [facility] [place] [facility] [address] [id number] [place] [address]- 6244 Mar, [facility] [place] [facility] [address] [id number] [place] [address]- 4097 Feb, [facility] [place] [facility] [address] [id number] [place] [address]- 7321 Feb, [facility] [place] [facility] [address] [id number] [place] [address]- 6248 Jan, [facility] [place] [facility] [address] [id number] [place] [address]- 0613 Jan, [facility] [place] [facility] [address] [id number], [place] [address]- 2396 Jan, [facility] [place] [facility] [address] [id number] [place] [address]- 2957 Jan, [facility] [place] [facility] [address] [id number] [place] [address]- 2834 Dec, [facility] [place] [facility] [address] [id number] [place] [address]- 8217 Dec, [facility] [place] [facility] [address] [id number] [place] [address]- 2071 Dec, [facility] [place] [facility] [address] [id number] [place] [address]- 1469 Dec, [facility] [place] [facility] [address] [id number] [place] [address]- 0269 Dec, [facility] [place] [facility] [address] [id number] [place] [address]- 2356 Dec, [facility] [place] [facility] [address] [id number] [place] [address]- 0983 Nov, [facility] [place] [facility] [address] [id number] [place] [address]- 9863 Nov, [facility] [place] [facility] [address] [id number] [place] [address]- 7238 Oct, [facility] [place] [facility] [address] [id number] [place] [address]- 1322 Oct, [facility] [place] [facility] [address] [id number] [place] [address]- 4321 Oct, [facility] [place] [facility] [address] [id number] [place] [address]- 1776 Oct, [facility] [place] [facility] [address] [id number] [place] [address]- 1649 September, [facility] [place] [facility] [address] [id number] [place] [address]- 0638 September, [facility] [place] [facility] [address] [id number] [place] [address]- 0732 September, [facility] [place] [facility] [address] [id number] [place] [address]- 9684 September, [facility] [place] [facility] [address] [id number] [place] [address]- 7893 September, [facility] [place] [facility] [address] [id number] [place] [address]- 5107 September, [facility] [place] [facility] [address] [id number] [place] [address]- 8793 September, [facility] [place] [facility] [address] [id number] [place] [address]- 0042 September, [facility] [place] [facility] [address] [id number] [place] [address]- 2227 Aug, [facility] [place] [facility] [address] [id number] [place] [address]- 6748 Aug, [facility] [place] [facility] [address] [id number] [place] [address]- 9286 Aug, [facility] [place] [facility] [address] [id number] [place] [address]- 9662 Aug, [facility] [place] [facility] [address] [id number] [place] [address]- 2539 Aug, [facility] [place] [facility] [address] [id number] [place] [address]- 7988 Aug, [facility] [place] [facility] [address] [id number] [place] [address]- 1207 Jul, [facility] [place] [facility] [address] [id number] [place] [address]- 0242 Jul, [facility] [place] [facility] [address] [id number] [place] [address]- 1002 Jul, [facility] [place] [facility] [address] [id number], [place] [address]- 8243 Jul, [facility] [place] [facility] [address] [id number] [place] [address]- 8842 Jun, [facility] [place] [facility] [address] [id number] [place] [address]- 9256 Jun, [facility] [place] [facility] [address] [id number] [place] [address]- 0221 Jun, [facility] [place] [facility] [address] [id number] [place] [address]- 9745 Jun, [facility] [address] [id number] [place] [address]- 0572 Jun, [facility] [address] [id number] [place] [address]- 3509 Jun, [facility] [address] [id number] [place] [address]- 3491 May, [facility] [address] [id number] [place] [address]- 8500 May, [facility] [address] [id number] [place] [address]- 7750 May, [facility] [address] [id number] [place] [address]- 9889 May, [facility] [address] [id number] [place] [address]- 9220 May, [facility] [address] [id number] [place] [address]- 9875 May, [facility] [address] [id number] [place] [address]- 7499 May, [facility] [address] [id number] [place] [address]- 5059 May, [facility] [address] [id number] [place] [address]- 0438 Apr, [facility] [place] [id number] Apr, [facility] [address] [id number] [place] [address]- 0292 Apr, [facility] [address] [id number] [place] [address]- 6367 16 Apr, 2013 [facility] [address] [id number] [place] [address]- 4285 Apr, [facility] [place] [facility] [address] [id number] [place] [address]- 2181 13 Apr, 2013 [facility] [place] [facility] [address] [id number] [place] [address]- 8394 05 Apr, 2013 [facility] [place] [facility] [address] [id number] [place] [address]- 4363 05 Apr, 2013 [facility] [place] [facility] [address] [id number] [place] [address]- 1411 Apr, [facility] [place] [facility] [address] [id number] [place] [address]- 1319 Mar, [facility] [place] [facility] [address] [id number] [place] [address]- 6921 Mar, [facility] [place] [facility] [address] [id number] [place] [address]- 4396 Mar, [facility] [place] [facility] [address] [id number] [place] [address]- 9678 Mar, [facility] [place] [facility] [address] [id number] [place] [address]- 7918 Mar, [facility] [place] [facility] [address] [id number] [place] [address]- 9356 Feb, [facility] [place] [facility] [address] [id number] [place] [address]- 4568 Feb, [facility] [place] [facility] [address] [id number] [place] [address]- 7345 14 Feb, 2013 [facility] [place] [facility] [address] [id number] [place] [address]- 8294 14 Feb, 2013 [facility] [place] [facility] [address] [id number] [place] [address]- 1012 25 Jan, 2013 [facility] [place] [facility] [address] [id number] [place] [address]- 3276 24 Jan, 2013 [facility] [place] [facility] [address] [id number] [place] [address]- 5322 Jan, [facility] [place] [facility] [address] [id number] [place] [address]- 2546 Dec, [facility] [place] [facility] [address] [id number] [place] [address]- 2546 Dec, [facility] [place] [facility] [address] [id number] [place] [address]- 2546 Dec, [facility] [place] [address] [id number] [place] [id number] Nov, [facility] [place] [address] [id number] [place] [id number] Oct, [facility] [place] [facility] [address] [id number] [place] [address]- 9736 Oct, [facility] [place] [facility] [address] [id number] [place] [address]- 2546 September, [facility] [place] [facility] [address] [id number] [place] [address]- 2546 September, [facility] [place] [facility] [address] [id number] [place] [address]- 2692 September, [facility] [place] [facility] [address] [id number] [place] [address]- 1976 September, [facility] [place] [facility] [address] [id number] [place] [address]- 1206 September, [facility] [place] [facility] [address] [id number] [place] [address]- 2546 Jul, [facility] [place] [facility] [address] [id number] [place] [address]- 2546 Jul, [facility] [place] [facility] [address] [id number] [place] [address]- 2546 Jul, [facility] [place] [facility] [address] [id number] [place] [address]- 2546 Jul, [facility] [place] [facility] [address] [id number] [place] [address]- 8259 Jun, [facility] [place] [facility] [address] [id number] [place] [address]- 7077 Jun, [facility] [place] [facility] [address] [id number] [place] [address]- 0843 Jun, [facility] [place] [facility] [address] [id number] [place] [address] Jun, [facility] [place] [facility] [address] [id number] [place] [address] May, [facility] [place] [facility] [address] [id number] [place] [address] Mar, [facility] [place] [facility] [address] [id number] [place] [address] Mar, [facility] [place] [facility] [address] [id number] [place] [address] Mar, [facility] [place] [facility] [address] [id number] [place] [address] Mar, [facility] [place] [facility] [address] [id number] [place] [address] Mar, [facility] [place] [facility] [address] [id number] [place] [address] Mar, [facility] [place] [facility] [address] [id number], [place] [address] Mar, [facility] [place] [facility] [address] [id number], [place] [address] Mar, [facility] [place] [facility] [address] [id number] [place] [address] Feb, [facility] [place] [facility] [address] [id number] [place] [address] Feb, [facility] [place] [facility] [address] [id number] [place] [address] Feb, [facility] [place] [facility] [address] [id number], [place] [address] Feb, [facility] [place] [facility] [address] [id number] [place] [address] Feb, [facility] [place] [facility] [address] [id number] [place] [address] Feb, [facility] [place] [facility] [address] [id number], [place] [address] Feb, [facility] [address] [id number] [place] [id number] Jan, [facility] [address] [id number] [place] [id number] Dec, [facility] [address] [facility] [id number] [place] [id number] Dec, [facility] [place] [facility] [address] [facility] [id number], [place] [address] Nov, [facility] [place] [facility] [address] [facility] [id number], [place] [address] Nov, [facility] [place] [facility] [address] [facility] [id number], [place] [address] Oct, [facility] [place] [facility] [address] [facility] [id number], [place] [address] Jul, [facility] [place] [facility] [address] [facility] [id number], [place] [address] Jul, [facility] [place] [facility] [address] [id number], [place] [address] May, [facility] [place] [facility] [address] [id number] [place] [address] May, [facility] [place] [facility] [address] [facility] [id number], [place] [address] Nov, [facility] [place] [facility] [address] [facility] [id number] [place] [address] Mar, [facility] [place] [facility] [id number], [place] [address] Dec, [facility] [place] [id number], [place] [address] Nov, [facility] [place] [id number], [place] [address] Aug, [facility] [place] [id number] [address] [address] Apr, [facility] [place] [id number], [place] [address] Apr, [facility] [place] [id number], [place] [address] Mar, [facility] [place] [id number], [place] [address] Feb, [facility] [place] [address] [id number], [place] [address] September, [facility] [place] [id number], [place] [address] Jun, [facility] [place] [id number], [place] [address] Mar, IMMUNIZATIONS No Known Immunizations SOCIAL HISTORY Never Assessed REASON FOR VISIT f/u PLAN OF CARE Activity Details Follow Up 4 Weeks Reason: F/U VITAL SIGNS MEDICATIONS Unknown Medications RESULTS No Results PROCEDURES Procedure Date Ordered Result Body Site Psychotherapy, patient &/family, 45 minutes, established patient October 21, 2016 INSTRUCTIONS MEDICATIONS ADMINISTERED No Known Medications [...] hernia Hospitalization History Went by ambulance to [facility] as unresponsive 05/2015 Hospitalization History [facility] sent her to [facility] for a psych hold 05/2015
--- OUTSIDE RECORDS SUMMARY | 2018-03-15 11:35 | XMS REPORT ---
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 Active 008521409 Problem Pelvic pain R10.2 Active 58118228 Problem Blindness of right eye H54.40 Active 194586009 Problem Relationship problem with family member Z63.8 Active 664350747 Problem Essential hypertension I10 Active 07940543 Problem Other chronic pain G89.29 Active 23526526 Problem Lumbago with sciatica, left side M54.42 Active 717481960 Problem Bipolar disorder F31.9 Active 66729865 Problem Posttraumatic stress disorder F43.10 Active 43293277 Problem Bilateral low back pain with sciatica, sciatica laterality unspecified M54.40 Active 916674595 Problem Visual disturbance H53.9 Active 94296683 Problem Overdose T50.901A Active 99715528 Problem Social anxiety disorder F40.10 Active 34497711 Problem Borderline personality disorder F60.3 Active 93167892 Problem Obstructive sleep apnea G47.33 Active 94995950 Problem Chronic pain G89.29 Active 04898478 Problem Acquired hypothyroidism E03.9 Active 123266041 ALLERGIES No Information ENCOUNTERS Encounter Location Date Diagnosis [facility] [id number] [address] Nov, [facility] [id number], [place] [address] 0993 Oct, [facility] [id number] [place] [address] 38504- 2670 Oct, [facility] [id number] [place] [address] 00560- 1975 September, Serpiginous choroiditis H31.22 [facility] [id number] [place] [address] 05403- 6793 September, Bipolar disorder F31.9 ; Posttraumatic stress disorder F43.10 and Borderline personality disorder F60.3 [place] [id number] [place] [address] 13236- 0308 Aug, BMI 40.0-44.9, adult Z68.41 ; Bipolar disorder F31.9 ; Posttraumatic stress disorder F43.10 and Social anxiety disorder F40.10 [place] [id number] [place] [address] 29907- 9828 Aug, Bipolar disorder F31.9 ; Posttraumatic stress disorder F43.10 and Borderline personality disorder F60.3 [place] [id number] [place] [address] 43178- 3052 Aug, Serpiginous choroiditis H31.22 [place] [id number] [place] [address] 95097- 1167 Jul, Bipolar disorder F31.9 ; Posttraumatic stress disorder F43.10 and Borderline personality disorder F60.3 [place] [id number] [place] [address] 69920- 8672 Jul, [place] [id number] [place] [address] 62290- 3083 Jun, Bipolar disorder F31.9 ; Posttraumatic stress disorder F43.10 and Borderline personality disorder F60.3 [place] [id number] [place] [address] 55060- 7427 Jun, Blindness of right eye H54.40 and Acquired hypothyroidism E03.9 [place] [id number] [place] [address] 13556- 3941 Jun, [facility] [address], [place] [address] 6021 May, Posttraumatic stress disorder F43.10 ; Social anxiety disorder F40.10 and Bipolar disorder F31.9 [facility] [address] [place] [address] 63213- 5453 May, Bipolar disorder F31.9 ; Posttraumatic stress disorder F43.10 and Borderline personality disorder F60.3 [place] [address] [place] [address] 93243- 9381 May, [facility] [address] [place] [address] 97786- 2431 May, [facility] [id number] [place] [address] 22658- 5127 Apr, Bipolar disorder F31.9 ; Posttraumatic stress disorder F43.10 and Borderline personality disorder F60.3 [address] [id number] Apr, [place] [address] [place] [address] 04891- 6578 Apr, [place] [id number] [place] [address] 15898- 9410 Mar, Hydradenitis L73.2 [place] [address] [place] [address] 83470- 5066 Mar, Lumbago with sciatica, left side M54.42 ; Other chronic pain G89.29 ; Morbid obesity, unspecified obesity type E66.01 ; Hydradenitis L73.2 and BMI 40.0-44.9, adult Z68.41 [place] [id number] [place] [address] 54839- 7302 Mar, Bipolar disorder F31.9 ; Posttraumatic stress disorder F43.10 and Borderline personality disorder F60.3 [place] [address] [place] [address] 77459- 8306 Mar, Social anxiety disorder F40.10 ; Bipolar disorder F31.9 and Relationship problem with family member Z63.8 [facility] [address] [facility] [id number] [address] Mar, [facility] [address] [id number] [id number] Mar, Dental examination Z01.20 [facility] [address] [place] [address] 91820- 4769 Mar, [facility] [id number], [place] [address] 7337 Feb, Bipolar disorder F31.9 ; Posttraumatic stress disorder F43.10 and Borderline personality disorder F60.3 [facility] [id number] [id number] Feb, [facility] [address] [place] [address] 82488- 4586 14 Jan, 2017 Bipolar disorder F31.9 ; Posttraumatic stress disorder F43.10 and Borderline personality disorder F60.3 [facility] [address] [id number][place] [id number] Jan, [facility] [address], [place] [address] 0875 Jan, [facility] [id number] [id number] Jan, [facility] [address], [place] [address] 5655 Dec, Bipolar disorder F31.9 ; Posttraumatic stress disorder F43.10 and Borderline personality disorder F60.3 [facility] [address] [facility] [id number], [place] [address]- 4335 Dec, [facility] [address] [facility] [id number], [place] [address] 9902 Dec, [facility] [address] [facility] [id number] [id number] Dec, [place] [place] [address] [place] [address] 13913- 4658 Nov, Bipolar 1 disorder F31.9 ; Posttraumatic stress disorder F43.10 and Social anxiety disorder F40.10 [place] [address] [place] [address] 68415- 4854 Nov, Bipolar disorder F31.9 ; Posttraumatic stress disorder F43.10 and Borderline personality disorder F60.3 [address] [id number] [place] [address] 63052- 4741 Nov, Morbid obesity, unspecified obesity type E66.01 [address] [address] [id number] [place] [address] 45222- 0359 Nov, [address] [id number] Oct, Encounter for dental examination and cleaning without abnormal findings Z01.20 [place] [id number] [place] [address] 39344- 6422 Oct, Morbid obesity, unspecified obesity type E66.01 and Acute seasonal allergic rhinitis due to pollen J30.1 [place] [address] [id number] [place] [address] 29011- 6141 Oct, Bipolar disorder F31.9 ; Posttraumatic stress disorder F43.10 and Borderline personality disorder F60.3 [place] [id number] [place] [address] 40197- 0687 September, Morbid obesity, unspecified obesity type E66.01 and Psoriasis L40.9 [place] [id number] [place] [address] 32021- 7813 September, Bipolar disorder F31.9 ; Posttraumatic stress disorder F43.10 and Borderline personality disorder F60.3 [place] [id number] [place] [address] 06841- 8378 September, Chronic pain G89.29 [id number] [place] [address] 68713- 1444 Aug, Other acute nonsuppurative otitis media of right ear H65.191 and Morbid obesity, unspecified obesity type E66.01 [place] [id number] [place] [address] 22267- 7704 Aug, Bipolar 1 disorder F31.9 ; Posttraumatic stress disorder F43.10 and Social anxiety disorder F40.10 [place] [address] 65775- 3845 Aug, Bipolar disorder F31.9 ; Posttraumatic stress disorder F43.10 and Borderline personality disorder F60.3 [place] [id number] [place] [address] 75239- 7082 Jul, Morbid obesity due to excess calories E66.01 ; Gastro- esophageal reflux disease without esophagitis K21.9 and Chronic pain G89.29 [place] [id number] [place] [address] 42054- 1314 Jul, Morbid obesity due to excess calories E66.01 [place] [id number] [place] [address] 53655- 3084 Jul, [place] [address] 08187- 9281 Jul, [place] [id number] [place] [address] 92180- 1594 Jul, Morbid obesity due to excess calories E66.01 [place] [id number] [place] [address] 15744- 8193 Jul, Bipolar disorder F31.9 ; Posttraumatic stress disorder F43.10 and Borderline personality disorder F60.3 [place] [id number] [place] [address] 41840- 8452 Jun, [place] [id number] [place] [address] 02839- 1038 Jun, Morbid obesity due to excess calories E66.01 [place] [id number] [place] [address] 54088- 9513 Jun, [facility] [address] [place] [address] 09742- 8084 09 Jun, 2016 Morbid obesity, unspecified obesity type E66.01 [facility] [address] [place] [address] 09558- 8047 03 Jun, 2016 Bipolar disorder F31.9 ; Posttraumatic stress disorder F43.10 and Borderline personality disorder F60.3 [facility] [address] [place] [address] 06514- 5294 Jun, [facility] [id number] [place] [address] 92869- 3598 Jun, [facility] [id number] [place] [address] 04521- 3293 02 Jun, 2016 Acquired hypothyroidism E03.9 and Morbid obesity due to excess calories E66.01 [place] [address] [place] [address] 85495- 2228 May, Bipolar disorder F31.9 ; Posttraumatic stress disorder F43.10 and Borderline personality disorder F60.3 [place] [address] [place] [address] 78208- 0194 Apr, Bipolar 1 disorder F31.9 ; Posttraumatic stress disorder F43.10 and Social anxiety disorder F40.[address] [id number] [address] Apr, Encounter for dental examination Z01.20 [facility] [address] [address]- 6333 Apr, [facility] [id number] [place] [address] 22501- 5318 Apr, Acquired hypothyroidism E03.9 [facility] [address] [place] [address] 32723- 5706 Apr, Acquired hypothyroidism E03.9 [facility] [id number] [place] [address] 26259- 6231 07 Apr, 2016 Bipolar disorder F31.9 ; Posttraumatic stress disorder F43.10 and Borderline personality disorder F60.3 [facility] [id number] [place] [address] 81815- 5240 Apr, Acquired hypothyroidism E03.[address] [facility] [address] [id number] [id number] Mar, Encounter for dental examination and cleaning without abnormal findings Z01.20 [facility] [id number] [place] [address] 49368- 4274 Mar, [facility] [address] 26807- 0608 Mar, Bipolar disorder F31.9 ; Posttraumatic stress disorder F43.10 and Borderline personality disorder F60.3 [place] [id number] [place] [address] 83912- 1475 Mar, Essential (primary) hypertension I10 [facility] [id number] [place] [address] 55502- 4999 Feb, [facility] [id number] [place] [address] 96009- 8338 Feb, [facility] [id number] [place] [address] 35724- 5049 Feb, Pelvic pain R10.2 ; Lipid screening Z13.220 ; Fatigue, unspecified type R53.83 and Weight gain R63.5 [facility] [id number] [place] [address] 43004- 9088 Feb, Bipolar disorder F31.9 ; Posttraumatic stress disorder F43.10 and Borderline personality disorder F60.3 [facility] [id number] [place] [address] 25324- 1422 Feb, [facility] [id number] [place] [address] 46026- 3482 Feb, [facility] [id number] [place] [address] 12531- 1928 30 Jan, 2016 Obstructive sleep apnea syndrome G47.33 [facility] [id number] [place] [address] 99749- 6837 26 Jan, 2016 [facility] [address] [facility] [address] [id number] [id number] 19 Jan, 2016 Dental examination Z01.20 [facility] [id number] [place] [address] 20139- 1204 Jan, Bipolar 1 disorder F31.9 ; Posttraumatic stress disorder F43.10 and Social anxiety disorder F40.10 [place] [id number] [place] [address] 09261- 3845 Jan, Bipolar disorder F31.9 ; Posttraumatic stress disorder F43.10 and Borderline personality disorder F60.3 [facility] [id number] [place] [address] 54946- 5094 Jan, Sciatica of left side M54.32 [facility] [id number] [place] [address] 51391- 7002 Jan, [facility] [id number] [place] [address] 52222- 6703 Dec, [facility] [id number] [place] [address] 64571- 8726 Dec, [facility] [id number] [place] [address] 69202- 1437 Dec, Bipolar disorder F31.9 ; Posttraumatic stress disorder F43.10 and Borderline personality disorder F60.3 [facility] [id number] [place] [address] 40204- 5590 Nov, [facility] [id number] [place] [address] 80366- 0765 Nov, Insomnia, unspecified type G47.00 [facility] [id number] [place] [address] 58188- 6224 Nov, Bipolar disorder F31.9 ; Posttraumatic stress disorder F43.10 and Borderline personality disorder F60.3 [facility] [address] [place] [address] 39142- 6810 Nov, [facility] [address] [place] [address] 04928- 7480 Nov, [facility] [id number] [place] [address] 51225- 9007 Oct, Bipolar disorder F31.9 ; Posttraumatic stress disorder F43.10 and Borderline personality disorder F60.3 [facility] [id number] [place] [address] 12206- 9777 Oct, [facility] [id number] [place] [address] 19117- 0720 Oct, Essential (primary) hypertension I10 [facility] [id number] [place] [address] 87661- 9851 September, Bipolar 1 disorder F31.9 ; Posttraumatic stress disorder F43.10 and Social anxiety disorder F40.10 [facility] [address] [place] [address] 19495- 6484 September, Bipolar disorder F31.9 ; Posttraumatic stress disorder F43.10 and Borderline personality disorder F60.[address] [id number] [address] September, Encounter for dental examination and cleaning without abnormal findings Z01.20 [facility] [address], [place] [address]- 1100 September, [facility] [id number] [place] [address] 91449- 0668 September, [facility] [address] [place] [address] 06003- 3280 Aug, [facility] [address] [place] [address] 87318- 8648 Aug, Bipolar disorder F31.9 ; Posttraumatic stress disorder F43.10 and Borderline personality disorder F60.3 [facility] [address], [place] [address]- 9781 Aug, [facility] [address] [place] [address] 84155- 7599 Aug, [facility] [address] [place] [address] 51392- 5145 Aug, [place] [id number] [id number] 28 Jul, 2015 Acute nasopharyngitis [common cold] J00 and Other viral agents as the cause of diseases classified elsewhere B97.89 [facility] [id number] [place] [address] 14425- 9172 24 Jul, 2015 Chronic pain G89.29 and Allergic rhinitis J30.9 [facility] [id number] [place] [address] 99417- 6557 24 Jul, 2015 Bipolar 1 disorder F31.9 ; Posttraumatic stress disorder F43.10 and Social anxiety disorder F40.10 [facility] [address] [place] [address] 06573- 5968 16 Jul, 2015 Bipolar 1 disorder F31.9 [facility] [address] [place] [address] 77557- 8576 16 Jul, 2015 Bipolar disorder F31.9 ; Posttraumatic stress disorder F43.10 and Borderline personality disorder F60.3 [facility] [address] [place] [address] 82760- 7691 14 Jul, 2015 [facility] [address] [place] [address] 39790- 0514 14 Jul, 2015 [facility] [id number] [place] [address] 15001- 7621 11 Jul, 2015 [facility] [address] [place] [address] 27908- 2014 10 Jul, 2015 Anxiety F41.9 [facility] [address] [address]- 3478 10 Jul, 2015 Chronic pain G89.29 and Encounter for therapeutic drug level monitoring Z51.81 [facility] [id number] [place] [address] 64354- 3254 09 Jul, 2015 Chronic pain G89.29 and Encounter for therapeutic drug level monitoring Z51.81 [facility] [id number] [place] [address] 22058- 6218 08 Jul, 2015 [facility] [id number] [place] [address] 41979- 9301 Jun, [facility] [id number] [place] [address] 07828- 8061 Jun, [facility] [id number] [place] [address] 29045- 0506 Jun, [facility] [id number] [place] [address] 61948- 9901 Jun, [facility] [id number] [place] [address] 28401- 2895 Jun, High risk medication use V58.69 [facility] [id number] [place] [address] 24098- 0695 Jun, [facility] [address] [place] [address] 55915- 3309 Jun, Bipolar 1 disorder F31.9 ; Overdose T50.901A and Chronic pain G89.29 [facility] [address] [place] [address] 51164- 3990 Jun, Bipolar disorder F31.9 ; Posttraumatic stress disorder F43.10 and Borderline personality disorder F60.3 [facility] [address] [place] [address] 07274- 4962 08 Jun, 2015 [facility] [id number] [place] [address] 07699- 1019 Jun, [facility] [address] [address]- 1281 Jun, Keloid L91.0 [facility] [address] [place] [address] 24597- 9625 Jun, [facility] [address] [place] [address] 65453- 7243 May, [facility] [id number] [place] [address] 78368- 9666 May, [facility] [address] [place] [address] 31611- 0028 May, Pelvic pain R10.2 [facility] [address] [place] [address] 01994- 8953 May, [facility] [id number] [place] [address] 75899- 8305 May, Pain of left thumb M79.645 ; Incisional pain R20.8 ; Pelvic pain R10.2 and Essential hypertension I10 [facility] [id number] [place] [address] 54513- 6872 May, [facility] [id number] [address] May, [address] [id number] [id number] May, Dental examination Z01.20 and Necrosis of pulp K04.1 [facility] [address] [address] Apr, [facility] [id number] [place] [address] 80412- 5916 Apr, [facility] [id number] [place] [address] 45236- 1018 Apr, [facility] [id number] [place] [address] 22013- 0619 Apr, [facility] [place] [facility] [address] [id number] [place] [address] Apr, 2014 [facility] [place] [facility] [address] [id number] [place] [address] Apr, [facility] [place] [facility] [address] [facility] [id number] [place] [address] Apr, [facility] [place] [facility] [address] [id number] [place] [address] Apr, [facility] [place] [facility] [address] [id number] [place] [address] Mar, [facility] [place] [facility] [address] [id number] [place] [address] 9644 Mar, [facility] [place] [facility] [address] [id number] [place] [address] 8876 Mar, [facility] [place] [facility] [address] [id number] [address] 3230 Mar, [facility] [place] [facility] [address] [id number], [place] [address] 3518 Feb, [facility] [place] [facility] [address] [id number] [address] 1078 Feb, [facility] [place] [facility] [address] [id number] [address] 3243 Feb, 2014 [facility] [place] [facility] [address] [id number], [place] [address]- 1291 Feb, 2014 [facility] [place] [facility] [address] [id number] [address] 4904 Feb, [facility] [place] [facility] [address] [id number] [address] 5532 19 Feb, 2014 [facility] [place] [facility] [address] [facility] [id number] [address] 8598 16 Feb, 2014 [facility] [place] [facility] [id number] [place] [address]- 3363 Feb, Dermatofibroma of left lower leg D23.72 [facility] [id number] [place] [address] 41153- 7649 Feb, Hematochezia 578.1 ; Low back pain M54.5 ; High risk medication use V58.69 ; Cervicalgia M54.2 and Anxiety F41.9 [address] [id number] Feb, Dental examination Z01.20 ; Pulpitis K04.0 and Dental caries, unspecified K02.9 [place] [id number] [place] [id number] Feb, Dental examination Z01.20 [facility] [id number] [place] [address] 8[address]- 1994 Jan, [facility] [id number] [place] [address] 55970- 3415 Jan, [facility] [id number] [place] [address] 62307- 9728 Jan, [facility] [id number] [place] [address] 11065- 0338 Jan, [facility] [id number] [place] [address] 60126- 3949 Dec, [facility] [id number] [place] [address] 19387- 8262 Dec, [facility] [id number] [place] [address] 27732- 9265 Dec, [facility] [id number] [place] [address] 07248- 9671 Dec, [facility] [id number] [place] [address] 65657- 1001 Dec, [facility] [id number] [place] [address] 68404- 9924 Dec, [facility] [address] [facility] [id number], [place] [address]- 5186 Dec, [facility] [address] [id number], [place] [address]- 2649 Dec, [facility] [address] [id number][place] [id number] Nov, Encounter for removal of sutures V58.32 [facility] [address] [facility] [id number] [address]- 5595 Nov, [facility] [address] [id number], [place] [address]- 0580 Nov, [facility] [address] [id number], [place] [address]- 7564 Nov, [facility] [address]00565100[place], [place] [address]- 0568 Nov, [facility] [address] [id number], [place] [address]- 6232 Nov, [facility] [address] [id number], [place] [address] 1992 Nov, [facility] [address] [id number], [place] [address]- 2247 Nov, [facility] [address]00565100[place], [place] [address]- 9279 Nov, Dermatofibroma 216.9 [facility] [address] [facility] [id number], [place] [address]- 8208 Nov, [facility] [address] [facility] [id number], [place] [address]- 5536 Nov, [facility] [address] [facility] [id number], [place] [address]- 6524 Oct, [facility] [address] [id number], [place] [address]- 9431 Oct, Hematochezia 578.1 ; Abscess 682.9 ; GERD (gastroesophageal reflux disease) 530.81 ; Visual disturbance of one eye 368.9 and High risk medication use V58.69 [facility] [address]00565100[place], [place] [address]- 9453 Oct, [facility] [address]00565100[place], [place] [address]- 0800 Oct, [facility] [address]00565100[place] [address] 1062 Oct, [facility] [address]00565100[place], [place] [address]- 4802 September, [facility] [address] [id number] 5402 September, [facility] [address] [id number] 9319 September, [facility] [address]00565100[place], [place] [address]- 5843 September, [facility] [address]00565100[place], [place] [address]- 7375 September, [facility] [address]00565100[place], [place] [address]- 9871 September, Colon cancer screening V76.51 [facility] [address]00565100[place] 1587 September, [facility] [address]00565100[id number] 2014 Aug, [facility] [address]00565100[place] 0951 Aug, [facility] [address]00565100[place] 2912 Jul, [facility] [address]00565100[place] 6670 Jul, [facility] [place] [facility] [address] [id number] [place] [address]- 4092 Jul, [facility] [place] [facility] [address] [id number] [place] [address]- 8756 Jul, [facility] [place] [facility] [address] [id number] [place] [address]- 3326 Jun, [facility] [place] [facility] [address] [id number] [place] [address]- 0509 Jun, [facility] [place] [facility] [address] [id number] [place] [address]- 4351 Jun, [facility] [place] [facility] [address] [id number] [place] [address]- 6284 Jun, [facility] [place] [facility] [address] [id number] [place] [address]- 5763 Jun, [facility] [place] [facility] [address] [id number] [place] [address]- 0784 Jun, [facility] [place] [facility] [address] [id number] [place] [address]- 5154 May, [facility] [place] [facility] [address] [id number] [place] [address]- 7823 May, [facility] [place] [facility] [address] [id number] [place] [address]- 3126 May, [facility] [place] [facility] [address] [id number] [place] [address]- 5882 May, [facility] [place] [facility] [address] [id number] [place] [address]- 8855 May, [facility] [place] [facility] [address] [id number] [place] [address]- 6446 May, [facility] [place] [facility] [address] [id number] [place] 9687 May, [facility] [place] [facility] [address] [id number] [place] [address]- 9063 May, [facility] [place] [facility] [address] [id number] [place] [address]- 8145 Apr, [facility] [place] [facility] [address] [id number] [place] [address]- 3814 Apr, [facility] [place] [facility] [address] [id number] [place] [address]- 3586 Apr, [facility] [place] [facility] [address] [id number] [place] [address]- 4221 Apr, [facility] [place] [facility] [address] [id number] [place] [address]- 6689 Apr, [facility] [place] [facility] [address] [id number] [place] [address]- 7673 Apr, [facility] [place] [facility] [address] [id number] [place] [address]- 6547 Apr, [facility] [place] [facility] [address] [id number] [place] [address]- 2539 Apr, [facility] [place] [facility] [address] [id number] [place] [address]- 2779 Mar, [facility] [place] [facility] [address] [id number] [place] [address]- 8385 Mar, [facility] [place] [facility] [address] [id number] [place] [address]- 9903 Mar, [facility] [place] [facility] [address] [id number] [place] [address]- 8612 Mar, [facility] [place] [facility] [address] [id number] [place] [address]- 6989 Mar, [facility] [place] [facility] [address] [id number] [place] [address]- 7197 Mar, [facility] [place] [facility] [address] [id number] [place] [address]- 2750 Mar, [facility] [place] [facility] [address] [id number] [place] [address]- 2834 Mar, [facility] [place] [facility] [address] [id number] [place] [address]- 3114 Mar, [facility] [place] [facility] [address] [id number] [place] [address]- 8334 Mar, [facility] [place] [facility] [address] [id number] [place] [address]- 6977 Feb, [facility] [place] [facility] [address] [id number] [place] [address]- 4104 Feb, [facility] [place] [facility] [address] [id number] [place] [address]- 6055 Jan, [facility] [place] [facility] [address] [id number] [place] [address]- 8071 Jan, [facility] [place] [facility] [address] [id number] [place] [address]- 2353 Jan, [facility] [place] [facility] [address] [id number] [place] [address]- 1163 Jan, [facility] [place] [facility] [address] [id number] [place] [address]- 2679 Dec, [facility] [place] [facility] [address] [id number] [place] [address]- 2079 Dec, [facility] [place] [facility] [address] [id number] [place] [address]- 6233 Dec, [facility] [place] [facility] [address] [id number] [place] [address]- 8264 Dec, [facility] [place] [facility] [address] [id number] [place] [address]- 6829 Dec, [facility] [place] [facility] [address] [id number] [place] [address]- 3594 Dec, [facility] [place] [facility] [address] [id number] [place] [address]- 2753 Nov, [facility] [place] [facility] [address] [id number] [place] [address]- 1777 Nov, [facility] [place] [facility] [address] [id number] [place] [address]- 8047 Oct, [facility] [place] [facility] [address] [id number] [place] [address]- 9409 Oct, [facility] [place] [facility] [address] [id number] [place] [address]- 4454 Oct, [facility] [place] [facility] [address] [id number] [place] [address]- 8016 Oct, [facility] [place] [facility] [address] [id number] [place] [address]- 4577 September, [facility] [place] [facility] [address] [id number] [place] [address]- 1323 September, [facility] [place] [facility] [address] [id number] [place] [address]- 5414 September, [facility] [place] [facility] [address] [id number] [place] [address]- 5815 September, [facility] [place] [facility] [address] [id number] [place] [address]- 0149 September, [facility] [place] [facility] [address] [id number] [place] [address]- 3264 September, [facility] [place] [facility] [address] [id number] [place] [address]- 2525 September, [facility] [place] [facility] [address] [id number] [place] 9416 September, [facility] [place] [facility] [address] [id number] [place] [address]- 2160 Aug, [facility] [place] [facility] [address] [id number] [place] [address]- 4548 Aug, [facility] [place] [facility] [address] [id number] [place] [address]- 5179 Aug, [facility] [place] [facility] [address] [id number] [place] [address]- 2758 Aug, [facility] [place] [facility] [address] [id number] [place] [address]- 8366 Aug, [facility] [place] [facility] [address] [id number] [place] [address]- 1206 Aug, [facility] [place] [facility] [address] [id number] [place] [address]- 9097 Jul, [facility] [place] [facility] [address] [id number] [place] [address]- 4988 Jul, [facility] [place] [facility] [address] [facility] [id number] [place] [address]- 6523 Jul, [facility] [place] [facility] [address] [facility] [id number] [place] [address]- 8485 Jul, [facility] [place] [facility] [address] [id number] [place] [address]- 2988 Jun, [facility] [place] [facility] [address] [id number] [place] [address]- 0232 Jun, [facility] [place] [facility] [address] [facility] [id number] [place] [address]- 9612 Jun, [facility] [place] [facility] [address] [facility] [id number] [place] [address]- 0331 Jun, [facility] [place] [facility] [address] [id number] [place] [address]- 4123 Jun, [facility] [place] [facility] [address] [id number] [place] [address]- 8646 Jun, [facility] [place] [facility] [address] [facility] [id number] [place] [address]- 8246 May, [facility] [place] [facility] [address] [id number] [place] [address]- 1945 May, [facility] [address] [id number] [place] [address]- 3186 May, [facility] [address] [id number] [place] [address]- 6096 May, [facility] [address] [id number] [place] [address]- 5317 May, [facility] [address] [id number] [place] [address]- 9625 May, [facility] [address] [id number] [place] [address]- 6886 May, [facility] [address] [id number] [place] [address]- 8147 May, [facility] [address] [id number] [place] [address]- 0968 Apr, [facility] [address] [place] [id number] Apr, [facility] [address] [id number] [place] [address]- 7578 Apr, [facility] [address] [id number] [place] [address]- 2925 Apr, [facility] [address] [id number] [place] [address]- 8107 Apr, [facility] [address] [id number] [place] [address]- 2705 Apr, [facility] [address] [id number] [place] [address]- 9535 Apr, [facility] [address] [id number] [place] [address]- 5577 05 Apr, 2013 [facility] [address] [id number] [place] [address]- 8287 Apr, [facility] [address] [id number], [place] [address]- 6864 Mar, [facility] [place] [facility] [address] [id number], [place] [address]- 4086 Mar, [facility] [place] [facility] [address] [id number], [place] [address]- 0608 Mar, [facility] [place] [facility] [address] [id number], [place] [address]- 4762 Mar, [facility] [place] [facility] [address] [id number], [place] [address]- 7320 Mar, [facility] [place] [facility] [address] [id number] [place] [address]- 8318 Feb, [facility] [place] [facility] [address] [id number], [place] [address]- 7825 Feb, [facility] [place] [facility] [address] [id number], [place] [address]- 7566 Feb, [facility] [place] [facility] [address] [id number], [place] [address]- 4966 Feb, [facility] [place] [facility] [address] [id number], [place] [address]- 8372 Jan, [facility] [place] [facility] [address] [id number], [place] [address]- 4472 Jan, [facility] [place] [facility] [address] [id number], [place] [address]- 1654 Jan, [facility] [place] [facility] [address] [id number], [place] [address]- 7664 Dec, [facility] [place] [facility] [address] [id number], [place] [address]- 3680 Dec, [facility] [place] [facility] [address] [facility] [id number], [place] [address]- 1964 Dec, [facility] [address] [id number] [id number] Nov, [facility] [address] [id number][place] [address] Oct, [facility] [address] [facility] [id number] [place] [address]- 3214 Oct, [facility] [address] [facility] [id number], [place] [address]- 0168 September, [facility] [address] [facility] [id number] [place] [address]- 5211 September, [facility] [address] [facility] [id number], [place] [address]- 5172 September, [facility] [address] [facility] [id number] [place] [address]- 6085 September, [facility] [address] [facility] [id number] [place] [address]- 6414 September, [facility] [address] [id number], [place] [address]- 9649 Jul, [facility] [address] [facility] [id number] [place] [address]- 9868 Jul, [facility] [address] [id number], [place] [address]- 2738 Jul, [facility] [address] [facility] [id number], [place] [address]- 3245 Jul, [facility] [address] [facility] [id number], [place] [address]- 6760 Jun, [facility] [place] [facility] [address] [facility] [id number], [place] [address]- 1598 Jun, [facility] [place] [facility] [address] [facility] [id number], [place] [address]- 4354 Jun, [facility] [place] [facility] [address] [facility] [id number], [place] [address]- 3607 Jun, [facility] [place] [facility] [address] [facility] [id number], [place] [address]- 7050 May, [facility] [place] [facility] [address] [id number] [place] [address]- 9274 Mar, [facility] [place] [facility] [address] [id number] [place] [address]- 3724 Mar, [facility] [place] [facility] [address] [id number] [place] [address]- 8975 Mar, [facility] [place] [facility] [address] [id number] [place] [address]- 5234 Mar, [facility] [place] [facility] [address] [id number] [place] [address]- 2689 Mar, [facility] [place] [facility] [address] [id number] [place] [address]- 2467 Mar, [facility] [place] [facility] [address] [facility] [id number] [place] [address]- 5958 Mar, [facility] [place] [facility] [address] [facility] [id number] [place] [address]- 0538 Mar, [facility] [place] [facility] [address] [facility] [id number] [place] [address] Feb, [facility] [place] [facility] [address] [facility] [id number] [place] [address] Feb, [facility] [place] [facility] [address] [facility] [id number] [address] Feb, [facility] [place] [facility] [address] [facility] [id number], [place] [address] Feb, [facility] [place] [facility] [address] [facility] [id number] [address] Feb, [facility] [place] [facility] [address] [facility] [id number] [place] [address] Feb, [facility] [place] [facility] [address] [facility] [id number], [place] [address] Feb, [facility] [address] [id number] [id number] Jan, [facility] [address] [id number] [place] [id number] Dec, [facility] [address] [id number] [place] [id number] Dec, [facility] [place] [facility] [address] [id number] [place] [address] Nov, [facility] [place] [facility] [address] [id number] [place] [address] Nov, [facility] [place] [facility] [address] [id number] [place] [address] Oct, [facility] [place] [facility] [address] [id number] [place] [address] Jul, [facility] [place] [facility] [address] [id number] [place] [address] Jul, [facility] [place] [facility] [address] [facility] [id number] [place] [address] May, [facility] [place] [facility] [address] [id number] [place] [address] May, [facility] [place] [facility] [address] [id number] [place] [address] Nov, [facility] [place] [facility] [address] [facility] [id number] [place] [address] Mar, [facility] [place] [facility] [address] [id number] [place] [address] Dec, [facility] [place] [facility] [address] [id number] [place] [address] Nov, [facility] [place] [facility] [address] [id number] [place] [address] Aug, [facility] [place] [facility] [address] [id number] [place] [address] Apr, [facility] [place] [facility] [address] [id number] [place] [address] Apr, [facility] [address] [facility] [id number], [place] [address] Mar, [facility] [address] [facility] [id number], [place] [address] Feb, [facility] [address] [facility] [id number] [address] September, [facility] [address] [facility] [id number], [place] [address] Jun, [facility] [address] [facility] [id number], [place] [address] Mar, IMMUNIZATIONS No Known Immunizations SOCIAL HISTORY [...] is 90mg 1 capsule 30 days Active RESULTS No Results PROCEDURES [...] hernia Hospitalization History Went by ambulance to [facility] as unresponsive 05/2015 Hospitalization History [facility] for a psych hold 05/2015
--- OUTSIDE RECORDS SUMMARY | 2018-03-15 11:35 | XMS REPORT ---
Author Author HERBERT MCGOWAN [facility] [employer] Address Unknown Phone Unavailable Care Team Providers Care Director Of Perioperative Services Name Role Phone HERBERT MCGOWAN CP Unavailable [...]
--- OUTSIDE RECORDS SUMMARY | 2018-03-15 11:36 | XMS REPORT ---
Author Author HERBERT MCGOWAN [facility] Address [address] [place] [address] Care Team Providers Care Turbinated Bone Grinder Name Role Phone HERBERT MCGOWAN Unavailable PROBLEMS Type Condition ICD9-CM Code HUE18-II Code Onset Dates Condition Status SNOMED Code Problem Dehydration 276.51 Active 31765387 Problem Hypopotassemia 276.8 Active 41274283 Problem Bilateral low back pain with sciatica, sciatica laterality unspecified M54.40 Active 920775483 Problem Urinary tract infection, site not specified 599.0 Active 85162874 Problem Visual disturbance H53.9 Active 12471851 Problem Blood in stool 578.1 Active 685249839 Problem Borderline personality disorder F60.3 Active 94280976 Problem Bipolar disorder F31.9 Active 73874456 Problem Posttraumatic stress disorder F43.10 Active 91416176 Problem Essential (primary) hypertension I10 Active 36820355 Problem Social anxiety disorder F40.10 Active 30410364 Problem Irritable bowel syndrome 564.1 Active 83007493 Problem 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 Active 86189781 Problem Abdominal pain, generalized 789.07 Active 415672734 Problem Overdose T50.901A Active 73467222 Problem Chronic pain G89.29 Active 67137467 Problem Encounter for dental examination and cleaning without abnormal findings Z01.20 Active 801951285 Problem Bipolar 1 disorder F31.9 Active 837209657 Problem Essential hypertension, benign 401.1 Active 3707180 Problem Cervicalgia 723.1 Active 26429199 Problem Nausea alone 787.02 Active 649270642 Problem Esophageal reflux 530.81 Active 771383692 Problem Other dyspnea and respiratory abnormalities 786.09 Active 236465410 Problem Pelvic pain R10.2 Active 08310285 Problem Hypertrophy of breast 611.1 Active 607833468 Problem Screening mammogram for high-risk patient V76.11 Active 20440426 ALLERGIES Unknown Allergies SOCIAL HISTORY No smoking Hx information available PLAN OF CARE VITAL SIGNS MEDICATIONS Unknown Medications RESULTS No Results PROCEDURES No Known procedures IMMUNIZATIONS No Known Immunizations
--- OUTSIDE RECORDS SUMMARY | 2018-03-15 11:36 | XMS REPORT ---
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 Active 334810938 Problem Pelvic pain R10.2 Active 01956348 Problem Blindness of right eye H54.40 Active 576019316 Problem Relationship problem with family member Z63.8 Active 852684032 Problem Essential hypertension I10 Active 44357749 Problem Other chronic pain G89.29 Active 54365884 Problem Lumbago with sciatica, left side M54.42 Active 263279379 Problem Bipolar disorder F31.9 Active 04029843 Problem Posttraumatic stress disorder F43.10 Active 30310068 Problem Bilateral low back pain with sciatica, sciatica laterality unspecified M54.40 Active 045888777 Problem Visual disturbance H53.9 Active 11004131 Problem Overdose T50.901A Active 71610732 Problem Social anxiety disorder F40.10 Active 28070053 Problem Borderline personality disorder F60.3 Active 24396660 Problem Obstructive sleep apnea G47.33 Active 89590280 Problem Chronic pain G89.29 Active 56829129 Problem Acquired hypothyroidism E03.9 Active 150234502 ALLERGIES No Information ENCOUNTERS Encounter Location Date Diagnosis [facility] [address], [place] [address] Oct, [facility] [address], [place] [address] Aug, [facility] [id number] [place] [address] 49852- 7436 Aug, [facility] [id number] [place] [address] 33240- 8185 Aug, Serpiginous choroiditis H31.22 [facility] [id number] [place] [address] 12351- 5736 Jul, Bipolar disorder F31.9 ; Posttraumatic stress disorder F43.10 and Borderline personality disorder F60.3 [facility] [id number] [place] [address] 50811- 0407 Jul, [place] [address] 31882- 3472 Jun, Bipolar disorder F31.9 ; Posttraumatic stress disorder F43.10 and Borderline personality disorder F60.3 [place] [id number] [place] [address] 78082- 5974 Jun, Blindness of right eye H54.40 and Acquired hypothyroidism E03.9 [facility] [id number] [place] [address] 66014- 2887 Jun, [place] [id number] [place] [address] 70927- 1115 May, Posttraumatic stress disorder F43.10 ; Social anxiety disorder F40.10 and Bipolar disorder F31.9 [place] [id number] [place] [address] 02277- 0698 May, Bipolar disorder F31.9 ; Posttraumatic stress disorder F43.10 and Borderline personality disorder F60.3 [facility] [address] [place] [address] 55295- 9442 May, [facility] [id number] [place] [address] 46809- 4727 May, [facility] [address] [place] [address] 12636- 8705 Apr, Bipolar disorder F31.9 ; Posttraumatic stress disorder F43.10 and Borderline personality disorder F60.3 [facility] [address] [id number] [id number] Apr, [facility] [address] [place] [address] 20752- 8346 Apr, [facility] [address], [place] [address] 1616 Mar, Hydradenitis L73.2 [facility] [address] [place] [address] 15013- 3159 15 Mar, 2017 Lumbago with sciatica, left side M54.42 ; Other chronic pain G89.29 ; Morbid obesity, unspecified obesity type E66.01 ; Hydradenitis L73.2 and BMI 40.0-44.9, adult Z68.41 [facility] [address] [place] [address] 68004- 7170 07 Mar, 2017 Bipolar disorder F31.9 ; Posttraumatic stress disorder F43.10 and Borderline personality disorder F60.3 [facility] [address] [place] [address] 62816- 1078 07 Mar, 2017 Social anxiety disorder F40.10 ; Bipolar disorder F31.9 and Relationship problem with family member Z63.8 [facility] [address] [place] [address] 32170- 4996 06 Mar, [address] [id number] [id number] 06 Mar, 2017 Dental examination Z01.20 [facility] [address], [place] [address] 8847 Mar, [facility] [address] [place] [address] 61669- 1148 Feb, Bipolar disorder F31.9 ; Posttraumatic stress disorder F43.10 and Borderline personality disorder F60.3 [facility] [address] [facility] [id number] [id number] Feb, [facility] [address], [place] [address]- 8663 14 Jan, 2017 Bipolar disorder F31.9 ; Posttraumatic stress disorder F43.10 and Borderline personality disorder F60.3 [facility] [address] [id number] [id number] Jan, [facility] [address], [place] [address]- 8897 Jan, [facility] [address] [place] [id number] Jan, [facility] [id number] [place] [address] 59157- 5631 Dec, Bipolar disorder F31.9 ; Posttraumatic stress disorder F43.10 and Borderline personality disorder F60.3 [facility] [id number] [place] [address] 72585- 4667 Dec, [facility] [id number] [place] [address] 64150- 4185 Dec, [facility] [address] [place] [address] [id number] Dec, [facility] [id number] [place] [address] 95616- 1711 Nov, Bipolar 1 disorder F31.9 ; Posttraumatic stress disorder F43.10 and Social anxiety disorder F40.10 [facility] [address] [place] [address] 00783- 7473 Nov, Bipolar disorder F31.9 ; Posttraumatic stress disorder F43.10 and Borderline personality disorder F60.3 [facility] [address] [place] [address] 14228- 7323 Nov, Morbid obesity, unspecified obesity type E66.01 [facility] [address], [place] [address]- 5465 Nov, [facility] [place] [address] [place], [place] [address] [id number] [id number] Oct, Encounter for dental examination and cleaning without abnormal findings Z01.20 [place] [id number] [place] [address] 98956- 1962 15 Oct, 2016 Morbid obesity, unspecified obesity type E66.01 and Acute seasonal allergic rhinitis due to pollen J30.1 [place] [id number] [place] [address] 28071- 7708 08 Oct, 2016 Bipolar disorder F31.9 ; Posttraumatic stress disorder F43.10 and Borderline personality disorder F60.3 [place] [id number] [place] [address] 37553- 6202 September, Morbid obesity, unspecified obesity type E66.01 and Psoriasis L40.9 [place] [address] 08579- 9845 September, Bipolar disorder F31.9 ; Posttraumatic stress disorder F43.10 and Borderline personality disorder F60.3 [place] [address] 45690- 3900 September, Chronic pain G89.29 [place] [id number] [place] [address] 12085- 2441 Aug, Other acute nonsuppurative otitis media of right ear H65.191 and Morbid obesity, unspecified obesity type E66.01 [place] [id number] [place] [address] 44526- 8313 Aug, Bipolar 1 disorder F31.9 ; Posttraumatic stress disorder F43.10 and Social anxiety disorder F40.10 [place] [id number] [place] [address] 59159- 4840 Aug, Bipolar disorder F31.9 ; Posttraumatic stress disorder F43.10 and Borderline personality disorder F60.3 [place] [id number] [place] [address] 47767- 2108 Jul, Morbid obesity due to excess calories E66.01 ; Gastro- esophageal reflux disease without esophagitis K21.9 and Chronic pain G89.29 [place] [address] [place] [address] 8750 15 Jul, 2016 Morbid obesity due to excess calories E66.01 [facility] [id number] [place] [address] 46997- 9513 06 Jul, 2016 [facility] [address] [place] [address] 54747- 0357 Jul, [facility] [id number] [place] [address] 02929- 8839 Jul, Morbid obesity due to excess calories E66.01 [facility] [address] [place] [address] 70229- 9902 Jul, Bipolar disorder F31.9 ; Posttraumatic stress disorder F43.10 and Borderline personality disorder F60.3 [facility] [id number] [place] [address] 97201- 0979 16 Jun, 2016 [facility] [id number] [place] [address] 32118- 8712 Jun, Morbid obesity due to excess calories E66.01 [facility] [address] [place] [address] 57807- 8158 Jun, [facility] [address] [place] [address] 82040- 3641 Jun, Morbid obesity, unspecified obesity type E66.01 [facility] [address] [place] [address] 09344- 4249 Jun, Bipolar disorder F31.9 ; Posttraumatic stress disorder F43.10 and Borderline personality disorder F60.3 [facility] [address] [place] [address] 10636- 7466 Jun, [facility] [id number] [place] [address] 42109- 6517 Jun, [facility] [address] [place] [address] 32621- 2452 Jun, Acquired hypothyroidism E03.9 and Morbid obesity due to excess calories E66.01 [facility] [address], [place] [address]- 4943 06 May, 2016 Bipolar disorder F31.9 ; Posttraumatic stress disorder F43.10 and Borderline personality disorder F60.3 [facility] [address], [place] [address]- 7090 13 Apr, 2016 Bipolar 1 disorder F31.9 ; Posttraumatic stress disorder F43.10 and Social anxiety disorder F40.[address] [id number] [id number] 12 Apr, 2016 Encounter for dental examination Z01.20 [facility] [address] [place] [address] 60169- 9311 08 Apr, 2016 [facility] [id number] [place] [address] 48291- 6782 08 Apr, 2016 Acquired hypothyroidism E03.9 [facility] [address] [place] [address] 78777- 2950 07 Apr, 2016 Acquired hypothyroidism E03.9 [facility] [address] [place] [address] 46220- 0328 07 Apr, 2016 Bipolar disorder F31.9 ; Posttraumatic stress disorder F43.10 and Borderline personality disorder F60.3 [facility] [address], [place] [address]- 6747 06 Apr, 2016 Acquired hypothyroidism E03.[address] [id number] [id number] 23 Mar, 2016 Encounter for dental examination and cleaning without abnormal findings Z01.20 [facility] [address] [place] [address] 70518- 6247 08 Mar, 2016 [facility] [address] [place] [address] 79225- 6138 08 Mar, 2016 Bipolar disorder F31.9 ; Posttraumatic stress disorder F43.10 and Borderline personality disorder F60.3 [facility] [address] [place] [address] 32526- 9130 Mar, Essential (primary) hypertension I10 [facility] [address] 10507- 3416 Feb, [facility] [id number] [place] [address] 06969- 4430 14 Feb, 2016 [place] [address] 34643- 6289 Feb, Pelvic pain R10.2 ; Lipid screening Z13.220 ; Fatigue, unspecified type R53.83 and Weight gain R63.5 [place] [id number] [place] [address] 49066- 5542 11 Feb, 2016 Bipolar disorder F31.9 ; Posttraumatic stress disorder F43.10 and Borderline personality disorder F60.3 [place] [id number] [place] [address] 66085- 3379 07 Feb, 2016 [facility] [id number] [place] [address] 71350- 8441 05 Feb, 2016 [place] [id number] [place] [address] 85530- 3665 30 Jan, 2016 Obstructive sleep apnea syndrome G47.33 [place] [id number] [place] [address] 02537- 1421 26 Jan, [address] [id number] [id number] 19 Jan, 2016 Dental examination Z01.20 [facility] [address] [place] [address] 10428- 6148 13 Jan, 2016 Bipolar 1 disorder F31.9 ; Posttraumatic stress disorder F43.10 and Social anxiety disorder F40.10 [place] [address] [place] [address] 63479- 0818 13 Jan, 2016 Bipolar disorder F31.9 ; Posttraumatic stress disorder F43.10 and Borderline personality disorder F60.3 [place] [address], [place] [address]- 6691 13 Jan, 2016 Sciatica of left side M54.32 [facility] [id number] [place] [address] 80744- 4566 Jan, [facility] [address], [place] [address]- 9656 Dec, [facility] [id number] [place] [address] 22269- 5976 Dec, [facility] [address] [place] [address] 38183- 5010 Dec, Bipolar disorder F31.9 ; Posttraumatic stress disorder F43.10 and Borderline personality disorder F60.3 [facility] [address], [place] [address]- 2902 Nov, [facility] [id number] [place] [address] 67597- 3123 Nov, Insomnia, unspecified type G47.00 [facility] [address], [place] [address]- 9149 Nov, Bipolar disorder F31.9 ; Posttraumatic stress disorder F43.10 and Borderline personality disorder F60.3 [facility] [address], [place] [address]- 0630 Nov, [facility] [address] [place] [address] 47543- 7046 Nov, [facility] [address], [place] [address]- 7926 Oct, Bipolar disorder F31.9 ; Posttraumatic stress disorder F43.10 and Borderline personality disorder F60.3 [facility] [address], [place] [address]- 7125 Oct, [facility] [address], [place] [address]- 2986 Oct, Essential (primary) hypertension I10 [facility] [address], [place] [address]- 6581 September, Bipolar 1 disorder F31.9 ; Posttraumatic stress disorder F43.10 and Social anxiety disorder F40.10 [facility] [address], [place] [address]- 9983 September, Bipolar disorder F31.9 ; Posttraumatic stress disorder F43.10 and Borderline personality disorder F60.[address] [id number] [id number] September, Encounter for dental examination and cleaning without abnormal findings Z01.20 [facility] [id number] [place] [address] 07085- 2627 September, [facility] [address] [place] [address] 22244- 2002 September, [facility] [id number] [place] [address] 14427- 5271 Aug, [facility] [address] [place] [address] 29838- 8049 Aug, Bipolar disorder F31.9 ; Posttraumatic stress disorder F43.10 and Borderline personality disorder F60.3 [facility] [address], [place] [address]- 2522 Aug, [facility] [address] [place] [address] 07407- 6151 Aug, [facility] [address], [place] [address]- 5250 Aug, [facility] [id number] [address] Jul, Acute nasopharyngitis [common cold] J00 and Other viral agents as the cause of diseases classified elsewhere B97.89 [facility] [address], [place] [address]- 3771 Jul, Chronic pain G89.29 and Allergic rhinitis J30.9 [place] [address], [place] [address]- 8301 24 Jul, 2015 Bipolar 1 disorder F31.9 ; Posttraumatic stress disorder F43.10 and Social anxiety disorder F40.10 [facility] [address], [place] [address] 2546 16 Jul, 2015 Bipolar 1 disorder F31.9 [facility] [address] [place] [address] 61669 2546 16 Jul, 2015 Bipolar disorder F31.9 ; Posttraumatic stress disorder F43.10 and Borderline personality disorder F60.3 [facility] [address] [place] [address] 00278- 9996 14 Jul, 2015 [facility] [id number] [place] [address] 40060- 8676 14 Jul, 2015 [facility] [id number] [place] [address] 86564- 7423 11 Jul, 2015 [facility] [address] [place] [address] 95196 2549 10 Jul, 2015 Anxiety F41.9 [facility] [id number] [place] [address] 63393 2546 10 Jul, 2015 Chronic pain G89.29 and Encounter for therapeutic drug level monitoring Z51.81 [facility] [address], [place] [address] 2546 09 Jul, 2015 Chronic pain G89.29 and Encounter for therapeutic drug level monitoring Z51.81 [facility] [address], [place] [address] 2546 08 Jul, 2015 [facility] [id number] [place] [address] 16175 2546 19 Jun, 2015 [facility] [address], [place] [address]- 2546 19 Jun, 2015 [facility] [id number] [place] [address] 46413- 1835 15 Jun, 2015 [facility] [id number] [place] [address] 98952- 5364 Jun, [facility] [id number] [place] [address] 52106- 1960 Jun, High risk medication use V58.69 [facility] [id number] [place] [address] 83890- 4992 Jun, [facility] [id number] [place] [address] 58644- 4674 Jun, Bipolar 1 disorder F31.9 ; Overdose T50.901A and Chronic pain G89.29 [facility] [id number] [place] [address] 61296- 6862 Jun, Bipolar disorder F31.9 ; Posttraumatic stress disorder F43.10 and Borderline personality disorder F60.3 [facility] [id number] [place] [address] 85956- 8574 Jun, [facility] [id number] [place] [address] 70410- 5760 Jun, [facility] [id number] [place] [address] 09034- 9769 Jun, Keloid L91.0 [facility] [id number] [place] [address] 87109- 1075 Jun, [facility] [id number] [place] [address] 69741- 9919 May, [facility] [id number] [place] [address] 87770- 6017 May, [facility] [id number] [place] [address] 22000- 2697 May, Pelvic pain R10.2 [facility] [id number] [place] [address] 60090- 1540 May, [facility] [address], [place] [address]- 8384 May, Pain of left thumb M79.645 ; Incisional pain R20.8 ; Pelvic pain R10.2 and Essential hypertension I10 [facility] [address], [place] [address]- 3336 May, [facility] [id number] [place] [address] 81660- 3425 May, [address] [id number] [id number] May, Dental examination Z01.20 and Necrosis of pulp K04.1 [facility] [address] [place] [address] 79206- 4810 Apr, [facility] [id number] [place] [address] 42702- 3836 Apr, [facility] [id number] [place] [address] 69361- 5746 Apr, [facility] [address] [place] [address] 87160- 8905 Apr, [facility] [address] [place] [address] 82227- 1488 Apr, [facility] [address], [place] [address]- 3433 Apr, [facility] [address], [place] [address]- 9162 Apr, [facility] [address] [place] [address] 83814- 5800 Apr, [facility] [id number] [place] [address] 02673- 3071 Mar, [facility] [address], [place] [address]- 1993 Mar, [facility] [address] [address]- 8374 Mar, [facility] [address], [place] [address]- 7894 Mar, [facility] [address], [place] [address]- 9337 Feb, [facility] [address], [place] [address]- 4557 Feb, [facility] [address] [address]- 7774 Feb, [facility] [address] [place] [address] 07888- 5886 Feb, [facility] [id number] [place] [address] 23902- 4937 Feb, [facility] [address] [place] [address] 90943- 1996 Feb, [facility] [address], [place] [address]- 9404 Feb, [facility] [address] [place] [address] 79057- 5228 Feb, Dermatofibroma of left lower leg D23.72 [facility] [facility] [address]005[address], [place] [address] Feb, Hematochezia 578.1 ; Low back pain M54.5 ; High risk medication use V58.69 ; Cervicalgia M54.2 and Anxiety F41.9 [facility] [address] [id number] [id number] Feb, Dental examination Z01.20 ; Pulpitis K04.0 and Dental caries, unspecified K02.9 [facility] [address] [id number] [id number] Feb, Dental examination Z01.20 [facility] [address], [place] [address] Jan, [facility] [address] [id number] [place] [address] Jan, [facility] [address] [id number], [place] [address] Jan, [facility] [address] [id number] [place] [address] Jan, [facility] [address] [id number], [place] [address] Dec, [facility] [address] [id number] [place] [address] Dec, [facility] [address] [id number], [place] [address] Dec, [facility] [address] [id number], [place] [address] 65[address] Dec, [facility] [address] [id number], [place] [address] Dec, [facility] [address] [id number], [place] [address] Dec, [facility] [address] [id number], [place] [address] Dec, [facility] [address] [id number], [place] [address] Dec, [facility] [place] [id number] [id number] Nov, Encounter for removal of sutures V58.32 [facility] [address] [id number], [place] [address] Nov, [facility] [address] [id number], [place] [address] Nov, [facility] [address] [id number], [place] [address] Nov, [facility] [address], [place] [address] Nov, [facility] [address], [place] [address] Nov, [facility] [address], [place] [address] 270[address] Nov, [facility] [address], [place] [address] 1407 Nov, [facility] [address], [place] [address] Nov, Dermatofibroma 216.9 [facility] [id number] [place] [address] Nov, [facility] [address], [place] [address] Nov, [facility] [address], [place] [address] Oct, [facility] [address] [id number], [place] [address] Oct, Hematochezia 578.1 ; Abscess 682.9 ; GERD (gastroesophageal reflux disease) 530.81 ; Visual disturbance of one eye 368.9 and High risk medication use V58.69 [facility] [address] [id number], [place] [address] Oct, [facility] [address], [place] [address] Oct, [facility] [address], [place] [address] 69[address] Oct, [facility] [address] [id number], [place] [address] 0862 September, [facility] [address] [id number], [place] [address] 7437 September, [facility] [address] [id number] [place] [address]- [address] September, [facility] [address] [id number] [place] [address]- 4261 September, [facility] [place] [facility] [address] [id number] [place] [address] 9289 September, [facility] [place] [facility] [address] [facility] [id number] [place] [address] 2455 September, Colon cancer screening V76.51 [facility] [place] [facility] [address] [id number] [place] [address]- 6988 September, [facility] [place] [facility] [address] [facility] [id number] [place] [address]- 9867 Aug, [facility] [place] [facility] [address] [facility] [id number] [place] [address]- 3672 Aug, [facility] [place] [facility] [address] [facility] [id number] [place] [address]- 2755 Jul, [facility] [place] [facility] [address] [facility] [id number] [place] [address]- 4162 Jul, [facility] [place] [facility] [address] [facility] [id number] [place] [address]- 4084 Jul, [facility] [place] [facility] [address] [facility] [id number] [place] [address]- 0223 Jul, [facility] [place] [facility] [address] [facility] [id number], [place] [address]- 5917 Jun, [facility] [place] [facility] [address] [facility] [id number] [place] [address]- 5373 Jun, [facility] [place] [facility] [address] [facility] [id number] [place] [address]- 5234 Jun, [facility] [place] [facility] [address] [facility] [id number] [place] [address]- 1285 Jun, [facility] [place] [facility] [address] [id number], [place] [address]- 5486 Jun, [facility] [address] [id number] [place] [address]- 9480 Jun, [facility] [place] [facility] [address] [id number] [place] [address]- 0983 May, [facility] [place] [facility] [address] [id number] [place] [address]- 9764 May, [facility] [place] [facility] [address] [id number] [place] [address]- 9329 May, [facility] [place] [facility] [address] [id number] [place] [address]- 2917 May, [facility] [place] [facility] [address] [id number] [place] [address]- 7487 May, [facility] [address] [id number] [place] [address]- 3059 May, [facility] [place] [facility] [address] [id number] [place] [address]- 7730 May, [facility] [place] [facility] [address] [id number] [place] [address]- 4325 May, [facility] [place] [facility] [address] [facility] [id number] [place] [address]- 4953 Apr, [facility] [place] [facility] [address] [id number] [place] [address]- 9313 Apr, [facility] [place] [facility] [address] [id number] [place] [address]- 1378 Apr, [facility] [place] [facility] [address] [id number] [place] [address]- 9656 Apr, [facility] [place] [facility] [address] [id number] [place] [address]- 0102 Apr, [facility] [place] [facility] [address] [id number] [place] [address]- 0151 Apr, [facility] [place] [facility] [address] [id number] [place] [address]- 7943 Apr, [facility] [place] [facility] [address] [id number] [place] [address]- 5266 Apr, [facility] [place] [facility] [address] [id number] [place] [address]- 9121 Mar, [facility] [place] [facility] [address] [id number] [place] [address]- 0695 Mar, [facility] [place] [facility] [address] [id number] [place] [address]- 0315 Mar, [facility] [place] [facility] [address] [id number] [place] [address]- 6029 Mar, [facility] [place] [facility] [address] [id number] [place] [address]- 5984 Mar, [facility] [place] [facility] [address] [id number] [place] [address]- 5656 Mar, [facility] [place] [facility] [address] [id number] [place] [address]- 5583 Mar, [facility] [place] [facility] [address] [id number] [place] [address]- 9618 Mar, [facility] [place] [facility] [address] [id number] [place] [address]- 4064 Mar, [facility] [place] [facility] [address] [id number] [place] [address]- 8477 Mar, [facility] [place] [facility] [address] [id number] [place] [address]- 0398 Feb, [facility] [place] [facility] [address] [id number] [place] [address]- 8343 Feb, [facility] [place] [facility] [address] [id number] [place] [address]- 7027 Jan, [facility] [place] [facility] [address] [id number] [place] [address]- 1967 Jan, [facility] [place] [facility] [address] [id number] [place] [address]- 6214 Jan, [facility] [place] [facility] [address] [id number] [place] [address]- 1534 Jan, [facility] [place] [facility] [address] [id number] [place] [address]- 6031 Dec, [facility] [place] [facility] [address] [id number] [place] [address]- 8973 Dec, [facility] [place] [facility] [address] [id number] [place] [address]- 0566 Dec, [facility] [place] [facility] [address] [id number] [place] [address]- 5878 Dec, [facility] [place] [facility] [address] [id number] [place] [address]- 9999 Dec, [facility] [place] [facility] [address] [id number] [place] [address]- 2316 Dec, [facility] [place] [facility] [address] [id number] [place] [address]- 1839 Nov, [facility] [place] [facility] [address] [id number] [place] [address]- 0627 Nov, [facility] [place] [facility] [address] [id number] [place] [address]- 0225 Oct, [facility] [place] [facility] [address] [id number] [place] [address]- 5434 Oct, [facility] [place] [facility] [address] [id number] [place] [address]- 1598 Oct, [facility] [place] [facility] [address] [id number] [place] [address]- 2343 Oct, [facility] [place] [facility] [address] [id number] [place] [address]- 2542 September, [facility] [place] [facility] [address] [id number] [place] [address]- 7091 September, [facility] [address] [id number] [place] [address]- 8653 September, [facility] [place] [facility] [address] [id number] [place] [address]- 1107 September, [facility] [place] [facility] [address] [id number] [place] [address]- 9732 September, [facility] [place] [facility] [address] [id number] [place] [address]- 9255 September, [facility] [place] [facility] [address] [id number] [place] 1980 September, [facility] [place] [facility] [address] [id number] [place] [address]- 6213 September, [facility] [address] [id number] [place] [address]- 8670 Aug, [facility] [place] [facility] [address] [id number] [place] [address]- 5463 Aug, [facility] [place] [facility] [address] [id number] [place] [address]- 1495 Aug, [facility] [place] [facility] [address] [id number] [place] [address]- 3382 Aug, [facility] [place] [facility] [address] [id number] [place] [address]- 6293 Aug, [facility] [place] [facility] [address] [id number] [place] [address]- 2355 Aug, [facility] [place] [facility] [address] [id number] [place] [address]- 4992 Jul, [facility] [place] [facility] [address] [id number] [place] [address] Jul, [facility] [place] [facility] [address] [id number] [place] [address]- 9837 Jul, [facility] [place] [facility] [address] [id number] [place] [address]- 1168 Jul, [facility] [place] [facility] [address] [id number] [place] [address]- 9706 Jun, [facility] [place] [facility] [address] [id number] [place] [address]- 3176 Jun, [facility] [place] [facility] [address] [id number] [place] [address]- 7686 Jun, [facility] [place] [facility] [address] [id number] [place] [address]- 9451 Jun, [facility] [place] [facility] [address] [id number] [place] [address]- 3836 Jun, [facility] [place] [facility] [address] [id number] [place] [address]- 0937 Jun, [facility] [place] [facility] [address] [id number] [place] [address]- 5528 May, [facility] [place] [facility] [address] [id number] [place] [address]- 9936 May, [facility] [place] [facility] [address] [id number] [place] [address]- 8692 May, [facility] [place] [facility] [address] [id number] [place] [address]- 5611 May, [facility] [place] [facility] [address] [id number] [place] [address]- 0001 May, [facility] [place] [facility] [address] [id number] [place] [address]- 0161 May, [facility] [place] [facility] [address] [id number] [place] [address]- 0115 May, [facility] [place] [facility] [address] [id number] [place] [address]- 3598 May, [facility] [place] [facility] [address] [id number], [place] [address]- 5170 16 Apr, 2013 [address] [facility] [address] [place] [id number] 16 Apr, 2013 [facility] [address] [id number] [place] [address]- 6405 16 Apr, 2013 [facility] [address] [id number] [place] [address] Apr, [facility] [address] [id number] [place] [address]- 0759 Apr, [facility] [address] [id number] [place] [address]- 8846 Apr, [facility] [address] [id number] [place] [address]- 7569 Apr, [facility] [address] [id number] [place] [address]- 1526 Apr, [facility] [address] [id number] [place] [address]- 1800 Apr, [facility] [address] [id number], [place] [address]- 2692 Mar, [facility] [address] [id number] [place] [address]- 0240 Mar, [facility] [address] [id number], [place] [address]- 6759 Mar, [facility] [place] [facility] [address] [id number], [place] [address]- 2527 Mar, [facility] [place] [facility] [address] [id number], [place] [address]- 9161 Mar, [facility] [place] [facility] [address] [id number], [place] [address]- 0044 Feb, [facility] [place] [facility] [address] [id number], [place] [address]- 4452 Feb, [facility] [address] [id number] [place] [address]- 0755 14 Feb, 2013 [facility] [address] [id number] [place] [address]- 4579 14 Feb, 2013 [facility] [place] [facility] [address] [id number] [place] [address]- 8139 Jan, [facility] [place] [facility] [address] [id number] [place] [address]- 5992 24 Jan, 2013 [facility] [place] [facility] [address] [id number] [place] [address]- 8195 Jan, [facility] [address] [id number] [place] [address]- 0814 Dec, [facility] [place] [facility] [address] [id number] [place] [address]- 2556 Dec, [facility] [address] [id number] [place] [address]- 2334 Dec, [facility] [address] [id number] [id number] Nov, [facility] [address] [facility] [address] [id number] [address] Oct, [facility] [address] [id number] [place] [address]- 4298 Oct, [facility] [address] [id number] [place] [address]- 2860 September, [facility] [place] [facility] [address] [id number] [place] [address]- 7672 September, [facility] [place] [facility] [address] [id number] [place] [address]- 1228 September, [facility] [place] [facility] [address] [id number] [place] [address]- 5654 September, [facility] [place] [facility] [address] [id number] [place] [address]- 9566 September, [facility] [place] [facility] [address] [id number] [place] [address]- 2419 Jul, [facility] [address] [id number] [place] [address]- 8771 Jul, [facility] [place] [facility] [address] [id number] [place] [address]- 7786 Jul, [facility] [place] [facility] [address] [id number] [place] [address]- 9396 Jul, [facility] [place] [facility] [address] [id number] [place] [address]- 5684 Jun, [facility] [place] [facility] [address] [id number] [place] [address]- 0606 Jun, [facility] [place] [facility] [address] [id number] [place] [address]- 8865 Jun, [facility] [place] [facility] [address] [id number] [place] [address]- 7176 Jun, [facility] [address] [id number] [place] [address]- 0060 May, [facility] [address] [id number] [place] [address]- 1095 Mar, [facility] [address] [id number] [place] [address]- 3009 Mar, [facility] [place] [facility] [address] [id number] [place] [address]- 5462 Mar, [facility] [place] [facility] [address] [id number] [place] [address]- 2542 Mar, [facility] [place] [facility] [address] [id number] [place] [address]- 4917 Mar, [facility] [place] [facility] [address] [id number] [place] [address]- 2544 Mar, [facility] [place] [facility] [address] [id number] [place] [address]- 2542 Mar, [facility] [place] [facility] [address] [facility] [id number] [place] [address]- 3756 Mar, [facility] [place] [facility] [address] [facility] [id number] [place] [address]- 1626 Feb, [facility] [place] [facility] [address] [facility] [id number] [place] [address]- 1756 Feb, [facility] [place] [facility] [address] [facility] [id number] [place] [address]- 4411 Feb, [facility] [place] [facility] [address] [facility] [id number] [place] [address]- 6052 Feb, [facility] [place] [facility] [address] [facility] [id number] [place] [address]- 0986 Feb, [facility] [place] [facility] [address] [facility] [id number] [place] [address]- 9176 Feb, [facility] [place] [facility] [address] [facility] [id number], [place] [address]- 1806 Feb, [facility] [address] [id number][place] [id number] Jan, [facility] [address] [facility] [address] [id number][place] [address] Dec, [facility] [address] [facility] [id number][place] [id number] Dec, [facility] [place] [facility] [address] [facility] [id number], [place] [address]- 2546 Nov, [facility] [place] [facility] [address] [facility] [id number], [place] [address] Nov, [facility] [address] [facility] [id number][place] [address] Oct, [facility] [address] [facility] [id number], [place] [address] Jul, [facility] [address] [facility] [id number], [place] [address] Jul, [facility] [address] [facility] [id number], [place] [address] May, [facility] [address] [facility] [id number], [place] [address] May, [facility] [address] [id number], [place] [address] Nov, [facility] [address] [facility] [id number], [place] [address] Mar, [facility] [address] [facility] [id number], [place] [address] Dec, [facility] [address] [facility] [id number], [place] [address] Nov, [facility] [id number], [place] [address] Aug, [facility] [id number], [place] [address] Apr, [facility] [address]65[address], [place] [address] Apr, [facility] [address] [id number], [place] [address] Mar, [facility] [address] [id number], [place] [address] Feb, [facility] [address] [id number], [place] [address] September, [facility] [address] [id number], [place] [address] Jun, [facility] [address] [id number], [place] [address] Mar, IMMUNIZATIONS No Known Immunizations SOCIAL HISTORY Never Assessed REASON FOR VISIT Weight check Yas LIU PLAN OF CARE VITAL SIGNS Height 62 in 2017-01-19 Weight 230 lbs 2017-01-19 BMI 42.06 kg/m2 2017-01-19 MEDICATIONS Unknown Medications RESULTS No Results PROCEDURES [...] hernia Hospitalization History Went by ambulance to [facility] as unresponsive 05/2015 Hospitalization History [facility] sent her to [facility] for a psych hold 05/2015
--- OUTSIDE RECORDS SUMMARY | 2018-03-15 11:37 | XMS REPORT ---
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 Active 228388495 Problem Pelvic pain R10.2 Active 71094564 Problem Blindness of right eye H54.40 Active 292463477 Problem Relationship problem with family member Z63.8 Active 161576910 Problem Essential hypertension I10 Active 39548063 Problem Other chronic pain G89.29 Active 77202536 Problem Lumbago with sciatica, left side M54.42 Active 381751112 Problem Bipolar disorder F31.9 Active 84183284 Problem Posttraumatic stress disorder F43.10 Active 47694011 Problem Bilateral low back pain with sciatica, sciatica laterality unspecified M54.40 Active 468873241 Problem Visual disturbance H53.9 Active 90252799 Problem Overdose T50.901A Active 14147253 Problem Social anxiety disorder F40.10 Active 95005919 Problem Borderline personality disorder F60.3 Active 99250189 Problem Obstructive sleep apnea G47.33 Active 26542311 Problem Chronic pain G89.29 Active 78303406 Problem Acquired hypothyroidism E03.9 Active 703846528 ALLERGIES No Information ENCOUNTERS Encounter Location Date Diagnosis [facility] [address] [facility] [id number], [place] [address] Nov, [facility] [address] [facility] [id number], [place] [address] 47[address] Oct, [facility] [address] [place] [address] 47978- 6513 Oct, [facility] [id number] [place] [address] 70599- 4278 September, [facility] [id number] [place] [address] 08687- 8681 Aug, BMI 40.0-44.9, adult Z68.41 ; Bipolar disorder F31.9 ; Posttraumatic stress disorder F43.10 and Social anxiety disorder F40.10 [facility] [id number] [place] [address] 99625- 2137 Aug, Bipolar disorder F31.9 ; Posttraumatic stress disorder F43.10 and Borderline personality disorder F60.3 [facility] [id number] [place] [address] 72465- 4352 Aug, Serpiginous 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 [facility] [address] 63615- 2718 Jul, Bipolar disorder F31.9 ; Posttraumatic stress disorder F43.10 and Borderline personality disorder F60.3 [facility] [id number] [place] [address] 76570- 0497 Jul, [facility] [id number] [place] [address] 53774- 1134 Jun, Bipolar disorder F31.9 ; Posttraumatic stress disorder F43.10 and Borderline personality disorder F60.3 [facility] [place] [id number] [place] [address] 64209- 7820 Jun, Blindness of right eye H54.40 and Acquired hypothyroidism E03.9 [facility] [id number] [place] [address] 42002- 3243 Jun, [facility] [id number] [place] [address] 75956- 6615 May, Posttraumatic stress disorder F43.10 ; Social anxiety disorder F40.10 and Bipolar disorder F31.9 [facility] [address], [place] [address] 3724 May, Bipolar disorder F31.9 ; Posttraumatic stress disorder F43.10 and Borderline personality disorder F60.3 [facility] [address] [place] [address] 57814- 1585 May, [facility] [address] [place] [address] 04252- 2689 May, [facility] [id number] [place] [address] 63931- 4680 Apr, Bipolar disorder F31.9 ; Posttraumatic stress disorder F43.10 and Borderline personality disorder F60.3 [address] [place] [id number] Apr, [facility] [address] [place] [address] 06504- 4210 Apr, [place] [id number] [place] [address] 26011- 7144 Mar, Hydradenitis L73.2 [place] [id number] [place] [address] 49213- 8415 Mar, Lumbago with sciatica, left side M54.42 ; Other chronic pain G89.29 ; Morbid obesity, unspecified obesity type E66.01 ; Hydradenitis L73.2 and BMI 40.0-44.9, adult Z68.41 [facility] [address] [place] [address] 79036- 5684 Mar, Bipolar disorder F31.9 ; Posttraumatic stress disorder F43.10 and Borderline personality disorder F60.3 [place] [id number] [place] [address] 27358- 7398 Mar, Social anxiety disorder F40.10 ; Bipolar disorder F31.9 and Relationship problem with family member Z63.8 [facility] [address] [place] [id number] [place] [address] 49690- 3014 Mar, [facility] [address] [id number] [id number] Mar, Dental examination Z01.20 [facility] [address], [place] [address] 5325 Mar, [facility] [address], [place] [address] 9596 Feb, Bipolar disorder F31.9 ; Posttraumatic stress disorder F43.10 and Borderline personality disorder F60.3 [facility] [address] [facility] [id number] [id number] Feb, [facility] [address] [place] [address] 81543- 0171 Jan, Bipolar disorder F31.9 ; Posttraumatic stress disorder F43.10 and Borderline personality disorder F60.3 [facility] [address] [id number] [id number] Jan, [facility] [address], [place] [address]- 8800 Jan, [facility] [address] [id number] Jan, [facility] [address], [place] [address]- 1067 Dec, Bipolar disorder F31.9 ; Posttraumatic stress disorder F43.10 and Borderline personality disorder F60.3 [facility] [address], [place] [address]- 1609 Dec, [facility] [address] [facility] [id number], [place] [address]- 6507 Dec, [facility] [address] [facility] [id number] [id number] Dec, [facility] [address] [id number], [place] [address]- 9678 Nov, Bipolar 1 disorder F31.9 ; Posttraumatic stress disorder F43.10 and Social anxiety disorder F40.10 [facility] [id number] [place] [address] 81421- 5605 Nov, Bipolar disorder F31.9 ; Posttraumatic stress disorder F43.10 and Borderline personality disorder F60.3 [facility] [place] [id number] [place] [address] 65594- 0852 Nov, Morbid obesity, unspecified obesity type E66.01 [facility] [id number] [place] [address] 32302- 6467 Nov, [address] [id number] Oct, Encounter for dental examination and cleaning without abnormal findings Z01.20 [facility] [address] 35945- 6840 Oct, Morbid obesity, unspecified obesity type E66.01 and Acute seasonal allergic rhinitis due to pollen J30.1 [facility] [address] 89686- 6095 Oct, Bipolar disorder F31.9 ; Posttraumatic stress disorder F43.10 and Borderline personality disorder F60.3 [facility] [place] [address] 18358- 7090 September, Morbid obesity, unspecified obesity type E66.01 and Psoriasis L40.9 [facility] [place] [id number] [place] [address] 31946- 6872 September, Bipolar disorder F31.9 ; Posttraumatic stress disorder F43.10 and Borderline personality disorder F60.3 [facility] [place] [id number] [place] [address] 46834- 0470 September, Chronic pain G89.29 [place] [facility] [address] 94385- 1354 Aug, Other acute nonsuppurative otitis media of right ear H65.191 and Morbid obesity, unspecified obesity type E66.01 [facility] [id number] [place] [address] 27290- 9149 Aug, Bipolar 1 disorder F31.9 ; Posttraumatic stress disorder F43.10 and Social anxiety disorder F40.10 [facility] [id number] [place] [address] 89718- 8509 Aug, Bipolar disorder F31.9 ; Posttraumatic stress disorder F43.10 and Borderline personality disorder F60.3 [facility] [id number] [place] [address] 82687- 2493 Jul, Morbid obesity due to excess calories E66.01 ; Gastro- esophageal reflux disease without esophagitis K21.9 and Chronic pain G89.29 [facility] [id number] [place] [address] 72346- 1695 Jul, Morbid obesity due to excess calories E66.01 [facility] [id number] [place] [address] 49651- 8784 Jul, [facility] [address] 65299- 2923 Jul, [facility] [id number] [place] [address] 98288- 4239 Jul, Morbid obesity due to excess calories E66.01 [facility] [id number] [place] [address] 35330- 9583 Jul, Bipolar disorder F31.9 ; Posttraumatic stress disorder F43.10 and Borderline personality disorder F60.3 [facility] [id number] [place] [address] 15854- 6732 Jun, [facility] [id number] [place] [address] 44825- 2756 Jun, Morbid obesity due to excess calories E66.01 [facility] [id number] [place] [address] 52537- 1862 Jun, [facility] [id number] [place] [address] 45587- 8044 Jun, Morbid obesity, unspecified obesity type E66.01 [facility] [address], [place] [address]- 6448 Jun, Bipolar disorder F31.9 ; Posttraumatic stress disorder F43.10 and Borderline personality disorder F60.3 [facility] [address], [place] [address]- 1649 Jun, [facility] [address] [place] [address] 92613- 7637 Jun, [facility] [address] [place] [address] 73890- 5831 02 Jun, 2016 Acquired hypothyroidism E03.9 and Morbid obesity due to excess calories E66.01 [place] [place] [id number] [place] [address] 90751- 6072 May, Bipolar disorder F31.9 ; Posttraumatic stress disorder F43.10 and Borderline personality disorder F60.3 [facility] [place] [address] [place] [address] 83895- 8625 Apr, Bipolar 1 disorder F31.9 ; Posttraumatic stress disorder F43.10 and Social anxiety disorder F40.[address] [place] [address] [id number] [id number] Apr, Encounter for dental examination Z01.20 [facility] [address] [place] [address] 72819- 5146 Apr, [facility] [address] [place] [address] 57721- 5214 Apr, Acquired hypothyroidism E03.9 [facility] [address] [place] [address] 63341- 1761 Apr, Acquired hypothyroidism E03.9 [facility] [address] [place] [address] 30816- 1004 Apr, Bipolar disorder F31.9 ; Posttraumatic stress disorder F43.10 and Borderline personality disorder F60.3 [facility] [address] [place] [address] 04724- 7941 Apr, Acquired hypothyroidism E03.9 [facility] [address] [id number] [id number] Mar, Encounter for dental examination and cleaning without abnormal findings Z01.20 [facility] [address] [place] [address] 44296- 0250 08 Mar, 2016 [facility] [address] [id number] [place] [address] 56611- 5219 Mar, Bipolar disorder F31.9 ; Posttraumatic stress disorder F43.10 and Borderline personality disorder F60.3 [place] [id number] [place] [address] 25976- 2708 Mar, Essential (primary) hypertension I10 [facility] [id number] [place] [address] 63525- 2297 Feb, [facility] [id number] [place] [address] 55659- 7865 Feb, [facility] [address] [address] [id number] [place] [address] 91918- 1787 Feb, Pelvic pain R10.2 ; Lipid screening Z13.220 ; Fatigue, unspecified type R53.83 and Weight gain R63.5 [place] [address] [place] [address] 37959- 9511 Feb, Bipolar disorder F31.9 ; Posttraumatic stress disorder F43.10 and Borderline personality disorder F60.3 [facility] [address] [place] [address] 34428- 1431 Feb, [facility] [id number] [place] [address] 77179- 4317 Feb, [facility] [address] [address] [id number] [place] [address] 01483- 4908 30 Jan, 2016 Obstructive sleep apnea syndrome G47.33 [facility] [id number] [place] [address] 21788- 1333 Jan, [facility] [address] [id number] [id number] Jan, Dental examination Z01.20 [facility] [address] [place] [address] 67341- 2786 Jan, Bipolar 1 disorder F31.9 ; Posttraumatic stress disorder F43.10 and Social anxiety disorder F40.10 [facility] [id number] [place] [address] 80763- 8789 Jan, Bipolar disorder F31.9 ; Posttraumatic stress disorder F43.10 and Borderline personality disorder F60.3 [facility] [address] [id number] [place] [address] 95515- 4296 Jan, Sciatica of left side M54.32 [facility] [id number] [place] [address] 11727- 5947 Jan, [facility] [id number] [place] [address] 29820- 5093 Dec, [facility] [address] [place] [address] 80734- 1886 Dec, [facility] [id number] [place] [address] [id number]- 2360 Dec, Bipolar disorder F31.9 ; Posttraumatic stress disorder F43.10 and Borderline personality disorder F60.3 [facility] [address] [place] [address] 77710- 2130 Nov, [facility] [address] [place] [address] 07384- 2549 Nov, Insomnia, unspecified type G47.00 [facility] [id number] [place] [address] 72802- 0045 Nov, Bipolar disorder F31.9 ; Posttraumatic stress disorder F43.10 and Borderline personality disorder F60.3 [facility] [address] [place] [address] 86136- 7033 Nov, [facility] [address], [place] [address]- 2113 Nov, [facility] [address] [place] [address] 53071- 4542 Oct, Bipolar disorder F31.9 ; Posttraumatic stress disorder F43.10 and Borderline personality disorder F60.3 [facility] [address], [place] [address]- 7749 Oct, [facility] [address] [place] [address] 78001- 8393 Oct, Essential (primary) hypertension I10 [facility] [address] [place] [id number] [place] [address] 80239- 0797 September, Bipolar 1 disorder F31.9 ; Posttraumatic stress disorder F43.10 and Social anxiety disorder F40.10 [facility] [address] [place] [address] 60750- 2042 September, Bipolar disorder F31.9 ; Posttraumatic stress disorder F43.10 and Borderline personality disorder F60.[address] [place] [address] [id number] [id number] September, Encounter for dental examination and cleaning without abnormal findings Z01.20 [facility] [address], [place] [address]- 2544 September, [facility] [address], [place] [address]- 4560 September, [facility] [address], [place] [address]- 8541 Aug, [facility] [address] [place] [address] 75452- 2517 Aug, Bipolar disorder F31.9 ; Posttraumatic stress disorder F43.10 and Borderline personality disorder F60.3 [facility] [address], [place] [address]- 1058 Aug, [facility] [address] [id number] [address]- 4985 08 Aug, 2015 [facility] [address], [place] [address]- 2579 Aug, [facility] [id number] [id number] Jul, Acute nasopharyngitis [common cold] J00 and Other viral agents as the cause of diseases classified elsewhere B97.89 [facility] [address] [id number] [place] [address] 37067- 4586 24 Jul, 2015 Chronic pain G89.29 and Allergic rhinitis J30.9 [place] [id number] [place] [address] 62629- 4519 24 Jul, 2015 Bipolar 1 disorder F31.9 ; Posttraumatic stress disorder F43.10 and Social anxiety disorder F40.10 [place] [id number] [place] [address] 62747- 4711 16 Jul, 2015 Bipolar 1 disorder F31.9 [place] [id number] [place] [address] 26357- 8823 16 Jul, 2015 Bipolar disorder F31.9 ; Posttraumatic stress disorder F43.10 and Borderline personality disorder F60.3 [place] [address] [place] [address] 70050- 0051 14 Jul, 2015 [place] [address] [place] [address] 50551- 7764 14 Jul, 2015 [place] [id number] [place] [address] 75232- 0315 11 Jul, 2015 [facility] [address] [place] [address] 58089- 9103 10 Jul, 2015 Anxiety F41.9 [place] [id number] [place] [address] 39500- 8929 10 Jul, 2015 Chronic pain G89.29 and Encounter for therapeutic drug level monitoring Z51.81 [place] [id number] [place] [address] 08217- 1173 Jul, Chronic pain G89.29 and Encounter for therapeutic drug level monitoring Z51.81 [facility] [id number] [place] [address] 46901- 3409 Jul, [facility] [id number] [place] [address] 75192- 1645 Jun, [facility] [id number] [place] [address] 44674- 6155 Jun, [facility] [id number] [place] [address] 32718- 4900 Jun, [facility] [id number] [place] [address] 33079- 6778 Jun, [facility] [id number] [place] [address] 50208- 4538 Jun, High risk medication use V58.69 [facility] [id number] [place] [address] 06598- 8828 Jun, [facility] [id number] [place] [address] 57343- 7408 Jun, Bipolar 1 disorder F31.9 ; Overdose T50.901A and Chronic pain G89.29 [facility] [id number] [place] [address] 22015- 0628 Jun, Bipolar disorder F31.9 ; Posttraumatic stress disorder F43.10 and Borderline personality disorder F60.3 [facility] [address] [place] [address] 30482- 4280 Jun, [facility] [id number] [place] [address] 41200- 0980 Jun, [facility] [address] [place] [address] 69346- 6854 Jun, Keloid L91.0 [facility] [id number] [place] [address] 43171- 4270 Jun, [facility] [address] [place] [address] 60301- 0138 May, [facility] [address] [place] [address] 02962- 2202 May, [facility] [address] [place] [address] 87720- 9177 May, Pelvic pain R10.2 [facility] [id number] [place] [address] 84555- 6894 May, [facility] [id number] [place] [address] 01801- 4934 May, Pain of left thumb M79.645 ; Incisional pain R20.8 ; Pelvic pain R10.2 and Essential hypertension I10 [facility] [address] [place] [address] 01533- 5924 May, [facility] [address] [place] [address] 95964- 6635 May, [address] [address] May, Dental examination Z01.20 and Necrosis of pulp K04.1 [facility] [address] [place] [address] 24137- 0850 Apr, [facility] [address] [place] [address] 16136- 3209 Apr, [facility] [address] [place] [address] 91956- 8561 Apr, [facility] [id number] [place] [address] 55019- 2685 Apr, [facility] [address] [place] [address] 74330- 8686 Apr, [facility] [address] [place] [address] 99342- 5026 Apr, [facility] [address] [facility] [id number], [place] [address]- 1839 Apr, [facility] [address] [facility] [id number], [place] [address]- 3562 Apr, [facility] [address] [facility] [id number], [place] [address]- 6573 Mar, [facility] [address] [facility] [id number], [place] [address]- 2107 Mar, [facility] [address] [facility] [id number], [place] [address]- 6502 Mar, [facility] [address] [facility] [id number][place]- 4583 Mar, [facility] [address] [facility] [id number], [place] [address]- 1924 Feb, [facility] [address] [facility] [id number], [place] [address]- 2869 Feb, [facility] [address] [facility] [id number], [place] [address] Feb, [facility] [address] [facility] [id number], [place] [address] Feb, 2014 [facility] [address] [facility] [id number], [place] [address] Feb, [facility] [address] [facility] [id number], [place] [address] Feb, [facility] [address] [facility] [id number][place] [id number] Feb, 2014 [facility] [address] [id number] [address] Feb, 2014 Dermatofibroma of left lower leg D23.72 [facility] [address] [facility] [id number], [place] [address] Oct, 2015 Hematochezia 578.1 ; Low back pain M54.5 ; High risk medication use V58.69 ; Cervicalgia M54.2 and Anxiety F41.9 [facility] [address] [id number][place] [id number] Feb, Dental examination Z01.20 ; Pulpitis K04.0 and Dental caries, unspecified K02.9 [facility] [address] [address] [id number] [id number] Feb, Dental examination Z01.20 [facility] [address] [facility] [id number], [place] [address] Jan, [facility] [address] [facility] [id number] [place] [address] 64343- 4006 Jan, [facility] [id number] [place] [address] 42497- 5084 Jan, [facility] [id number] [place] [address] 31907- 3758 Jan, [facility] [id number] [place] [address] 32171- 1005 Dec, [facility] [id number] [place] [address] 88708- 3205 Dec, [facility] [address] [id number], [place] [address] 0174 Dec, [facility] [id number] [place] [address] 48508- 6664 Dec, [facility] [address] [id number], [place] [address] 2061 Dec, [facility] [id number] [place] [address] 23970- 7590 Dec, [facility] [address] [id number], [place] [address] 0134 Dec, [facility] [id number] [place] [address] 76316- 0872 Dec, [facility] [address] [id number] [id number] Nov, Encounter for removal of sutures V58.32 [facility] [address]65[address], [place] [address] 8218 Nov, [facility] [address]65[address], [place] [address] 5057 Nov, [facility] [address]65[address], [place] [address] 9020 Nov, [facility] [id number] [place] [address] 94794- 8879 Nov, [facility] [address], [place] [address]- 4523 Nov, [facility] [address]65100[place], [place] [address]- 5145 Nov, [facility] [address]65[address], [place] [address]- 7180 Nov, [facility] [address]65[address], [place] [address]- 0606 Nov, Dermatofibroma 216.9 [facility] [address]65[address], [place] [address] 9832 Nov, [facility] [address]65[address], [place] [address]- 2692 Nov, [facility] [address] [id number], [place] [address] 8489 Oct, [facility] [address]65[address], [place] [address]- 6845 Oct, Hematochezia 578.1 ; Abscess 682.9 ; GERD (gastroesophageal reflux disease) 530.81 ; Visual disturbance of one eye 368.9 and High risk medication use V58.69 [facility] [address]65[address], [place] [address]- 0683 Oct, [facility] [address] [id number] [place] [address]- 3235 Oct, [facility] [address] [id number] [place] [address]- 7040 Oct, [facility] [address] [id number] [place] 1586 September, [facility] [address] [id number] [place] [address]- 7902 September, [facility] [address] [id number] [place] 5647 September, [facility] [address] [id number] [place] 8671 September, [facility] [address] [facility] [id number] [place] 4843 September, [facility] [address] [facility] [id number] [place] [address]- 0815 September, Colon cancer screening V76.51 [facility] [address] [id number] [place] [address]- 5308 September, [facility] [address] [facility] [id number] [place] 3651 Aug, [facility] [address] [id number] [place] [address]- 7919 Aug, [facility] [address] [id number] [place] [address]- 3742 Jul, [facility] [place] [facility] [address] [id number] [place] [address]- 8933 Jul, [facility] [address] [facility] [id number] [place] [address]- 7097 16 Jul, 2014 [facility] [address] [facility] [id number] [place] [address]- 5514 Jul, [facility] [place] [facility] [address] [id number] [place] [address]- 3235 Jun, [facility] [place] [facility] [address] [id number] [place] [address]- 2070 Jun, [facility] [place] [facility] [address] [id number] [place] [address]- 6812 Jun, [facility] [place] [facility] [address] [id number] [place] [address]- 1813 Jun, [facility] [place] [facility] [address] [id number] [place] [address]- 2100 Jun, [facility] [place] [facility] [address] [id number] [place] [address]- 7356 Jun, [facility] [place] [facility] [address] [id number] [place] [address]- 3477 May, [facility] [place] [facility] [address] [id number], [place] [address]- 2887 May, [facility] [place] [facility] [address] [id number] [place] [address]- 3109 May, [facility] [place] [facility] [address] [id number] [place] [address]- 0847 May, [facility] [place] [facility] [address] [id number], [place] [address]- 6910 May, [facility] [place] [facility] [address] [id number], [place] [address]- 5435 May, [facility] [place] [facility] [address] [id number] [place] [address]- 0029 May, [facility] [place] [facility] [address] [id number], [place] [address]- 9072 May, [facility] [place] [facility] [address] [id number] [place] [address]- 4924 Apr, [facility] [place] [facility] [address] [id number] [place] [address]- 4817 Apr, [facility] [place] [facility] [address] [id number] [place] [address]- 0072 Apr, [facility] [place] [facility] [address] [id number] [place] [address]- 2998 Apr, [facility] [place] [facility] [address] [id number] [place] [address]- 2053 Apr, [facility] [place] [facility] [address] [id number] [place] [address]- 5619 Apr, [facility] [place] [facility] [address] [id number] [place] [address]- 7179 Apr, [facility] [place] [facility] [address] [id number] [place] [address]- 1459 Apr, [facility] [place] [facility] [address] [id number] [place] [address]- 6109 Mar, [facility] [place] [facility] [address] [id number] [place] [address]- 7556 Mar, [facility] [place] [facility] [address] [id number] [place] [address]- 0498 Mar, [facility] [place] [facility] [address] [id number] [place] [address]- 4235 Mar, [facility] [place] [facility] [address] [id number] [place] [address]- 1414 Mar, [facility] [place] [facility] [address] [id number] [place] [address]- 8871 Mar, [facility] [place] [facility] [address] [id number] [place] [address]- 4288 Mar, [facility] [place] [facility] [address] [id number] [place] [address]- 0242 Mar, [facility] [place] [facility] [address] [id number] [place] [address]- 6784 Mar, [facility] [place] [facility] [address] [id number] [place] [address]- 9062 Mar, [facility] [place] [facility] [address] [id number] [place] [address]- 2408 Feb, [facility] [place] [facility] [address] [id number] [place] [address]- 0597 Feb, [facility] [place] [facility] [address] [id number] [place] [address]- 4658 Jan, [facility] [place] [facility] [address] [id number] [place] [address]- 6869 Jan, [facility] [place] [facility] [address] [id number] [place] [address]- 4732 Jan, [facility] [place] [facility] [address] [id number] [place] [address]- 4695 Jan, [facility] [place] [facility] [address] [id number] [place] [address]- 8261 Dec, [facility] [place] [facility] [address] [id number] [place] [address]- 0653 Dec, [facility] [place] [facility] [address] [id number] [place] [address]- 4167 Dec, [facility] [place] [facility] [address] [id number] [place] [address]- 3040 Dec, [facility] [place] [facility] [address] [id number] [place] [address]- 6667 Dec, [facility] [place] [facility] [address] [id number] [place] [address]- 4030 Dec, [facility] [place] [facility] [address] [id number] [place] [address]- 2016 Nov, [facility] [place] [facility] [address] [id number] [place] [address]- 9274 Nov, [facility] [place] [facility] [address] [id number] [place] [address]- 3976 Oct, [facility] [place] [facility] [address] [id number] [place] [address]- 5866 Oct, [facility] [place] [facility] [address] [id number] [place] [address]- 5395 Oct, [facility] [place] [facility] [address] [id number] [place] [address]- 8653 Oct, [facility] [place] [facility] [address] [id number] [place] [address]- 5048 September, [facility] [place] [facility] [address] [id number] [place] [address]- 5776 September, [facility] [place] [facility] [address] [id number] [place] [address]- 9044 September, [facility] [place] [facility] [address] [id number] [place] [address]- 9544 September, [facility] [place] [facility] [address] [id number] [place] [address]- 2581 September, [facility] [place] [facility] [address] [id number] [place] [address]- 9816 September, [facility] [place] [facility] [address] [id number] [place] [address]- 2249 September, [facility] [place] [facility] [address] [id number] [place] [address]- 7589 September, [facility] [place] [facility] [address] [id number] [place] [address]- 9515 Aug, [facility] [place] [facility] [address] [id number] [place] [address]- 8274 Aug, [facility] [place] [facility] [address] [id number] [place] [address]- 0041 Aug, [facility] [place] [facility] [address] [id number] [place] [address]- 3394 Aug, [facility] [place] [facility] [address] [id number] [place] [address]- 2476 Aug, [facility] [place] [facility] [address] [id number] [place] [address]- 8310 Aug, [facility] [place] [facility] [address] [id number] [place] [address]- 7506 Jul, [facility] [place] [facility] [address] [id number] [place] [address]- 3661 Jul, [facility] [place] [facility] [address] [id number] [place] [address]- 5435 Jul, [facility] [place] [facility] [address] [id number] [place] [address]- 3659 Jul, [facility] [place] [facility] [address] [id number] [place] [address]- 9123 Jun, [facility] [place] [facility] [address] [id number] [place] [address]- 1668 Jun, [facility] [place] [facility] [address] [id number] [place] [address]- 9898 Jun, [facility] [place] [facility] [address] [id number] [place] [address]- 0916 Jun, [facility] [place] [facility] [address] [facility] [id number] [place] [address]- 0869 Jun, [facility] [place] [facility] [address] [id number] [place] [address]- 7135 Jun, [facility] [place] [facility] [address] [id number] [place] [address]- 0854 May, [facility] [place] [facility] [address] [id number] [place] [address]- 5109 May, [facility] [place] [facility] [address] [id number] [place] [address]- 4864 May, [facility] [place] [facility] [address] [id number] [place] [address]- 7784 May, [facility] [address] [id number] [place] [address]- 5775 May, [facility] [address] [id number] [place] [address]- 1806 May, [facility] [address] [facility] [id number] [place] [address]- 2462 May, [facility] [address] [id number] [place] [address]- 0791 May, [facility] [address] [id number] [place] [address]- 0750 Apr, [facility] [place] [address] [place] [id number] Apr, [facility] [address] [id number] [place] [address]- 5654 Apr, [facility] [address] [id number], [place] [address]- 0710 Apr, [facility] [address] [id number], [place] [address]- 1083 Apr, [facility] [address] [id number], [place] [address]- 1266 Apr, [facility] [address] [id number], [place] [address]- 1922 Apr, [facility] [address] [id number], [place] [address]- 4879 05 Apr, 2013 [facility] [address] [id number], [place] [address]- 8727 Apr, [facility] [address] [id number], [place] [address]- 3849 Mar, [facility] [address] [id number], [place] [address]- 3589 Mar, [facility] [address] [id number], [place] [address]- 4955 Mar, [facility] [place] [facility] [address] [id number] [place] [address]- 0253 Mar, [facility] [place] [facility] [address] [id number], [place] [address]- 0221 Mar, [facility] [place] [facility] [address] [facility] [id number] [place] [address]- 5744 Feb, [facility] [place] [facility] [address] [id number] [place] [address]- 6411 Feb, [facility] [place] [facility] [address] [id number] [place] [address]- 4442 Feb, [facility] [place] [facility] [address] [id number] [place] [address]- 8217 Feb, [facility] [place] [facility] [address] [facility] [id number], [place] [address]- 5636 Jan, [facility] [place] [facility] [address] [id number], [place] [address]- 9051 Jan, [facility] [place] [facility] [address] [facility] [id number], [place] [address]- 5922 Jan, [facility] [place] [facility] [address] [facility] [id number], [place] [address]- 5245 Dec, [facility] [place] [facility] [address] [facility] [id number], [place] [address]- 5595 Dec, [facility] [place] [facility] [address] [facility] [id number], [place] [address]- 1577 Dec, [facility] [address] [id number] [address] Nov, [facility] [address] [id number][place] [address] Oct, [facility] [place] [facility] [address] [facility] [id number], [place] [address]- 9339 Oct, [facility] [place] [facility] [address] [id number] [place] [address]- 2273 September, [facility] [address] [id number] [place] [address]- 3990 September, [facility] [address] [id number] [place] [address]- 0892 September, [facility] [address] [id number] [place] [address]- 8606 September, [facility] [address] [id number] [place] [address]- 9911 September, [facility] [address] [id number] [place] [address]- 2596 Jul, [facility] [address] [id number] [place] [address]- 2966 Jul, [facility] [address] [id number] [place] [address]- 4412 Jul, [facility] [address] [id number] [place] [address]- 2990 Jul, [facility] [address] [id number] [place] [address]- 0551 Jun, [facility] [address] [id number] [place] [address]- 0941 Jun, [facility] [address] [id number] [place] [address]- 1441 Jun, [facility] [address] [id number] [place] [address]- 6531 Jun, [facility] [address] [id number] [place] [address]- 9974 May, [facility] [address] [id number] [place] [address]- 3364 Mar, [facility] [address] [id number] [place] [address]- 9631 Mar, [facility] [place] [facility] [address] [id number] [place] [address]- 5623 Mar, [facility] [place] [facility] [address] [id number] [place] [address]- 8747 Mar, [facility] [place] [facility] [address] [facility] [id number] [place] [address]- 7754 Mar, [facility] [place] [facility] [address] [id number] [place] [address]- 1731 Mar, [facility] [place] [facility] [address] [id number] [place] [address]- 6966 Mar, [facility] [place] [facility] [address] [id number] [place] [address]- 1206 Mar, [facility] [place] [facility] [address] [facility] [id number] [place] [address]- 5413 Feb, [facility] [place] [facility] [address] [facility] [id number], [place] [address]- 4366 Feb, [facility] [place] [facility] [address] [facility] [id number] [place] [address]- 3208 Feb, [facility] [place] [facility] [address] [facility] [id number], [place] [address]- 3355 Feb, [facility] [place] [facility] [address] [facility] [id number], [place] [address]- 2822 Feb, [facility] [place] [facility] [address] [facility] [id number], [place] [address]- 5949 Feb, [facility] [place] [facility] [address] [facility] [id number], [place] [address]- 7053 Feb, [facility] [address] [id number][place] [address] Jan, [facility] [address] [id number][place] [address] Dec, [facility] [address] [id number][place] [address] Dec, [facility] [place] [facility] [address] [id number] [place] [address]- 1719 30 Nov, 2011 [facility] [place] [facility] [address] [id number] [place] [address]- 5633 Nov, [facility] [place] [facility] [address] [id number] [place] [address]- 6576 Oct, [facility] [place] [facility] [address] [id number] [place] [address]- 3148 Jul, [facility] [place] [facility] [address] [id number] [place] [address]- 0763 Jul, [facility] [place] [facility] [address] [id number] [place] [address]- 5354 May, [facility] [place] [facility] [address] [id number] [place] [address]- 9201 May, [facility] [address] [id number] [place] [address]- 1026 Nov, [facility] [place] [facility] [address] [id number] [place] [address]- 8878 Mar, [facility] [place] [facility] [address] [id number] [place] [address]- 2863 Dec, [facility] [place] [facility] [address] [id number] [place] [address]- 4255 Nov, [facility] [place] [facility] [address] [id number] [place] [address]- 4744 Aug, [facility] [place] [facility] [address] [id number] [place] [address]- 8919 Apr, [facility] [place] [facility] [address] [id number] [place] [address]- 9989 Apr, [facility] [place] [facility] [address] [id number] [place] [address] Mar, [facility] [place] [facility] [address] [id number] [place] [address] Feb, [facility] [address] [facility] [id number] [place] [address] September, [facility] [address] [facility] [id number] [place] [address] Jun, [facility] [address] [facility] [id number] [place] [address] Mar, IMMUNIZATIONS No Known Immunizations SOCIAL HISTORY Never Assessed REASON FOR VISIT f/u PLAN OF CARE Activity Details Follow Up 4 Weeks Reason: F/U VITAL SIGNS MEDICATIONS Unknown Medications RESULTS No Results PROCEDURES Procedure Date Ordered Result Body Site Psychotherapy, patient &/family, 45 minutes, established patient Jan 27, 2017 INSTRUCTIONS MEDICATIONS ADMINISTERED No Known Medications [...] hernia Hospitalization History Went by ambulance to [facility] as unresponsive 05/2015 Hospitalization History [facility] sent her to [facility] for a psych hold 05/2015
--- OUTSIDE RECORDS SUMMARY | 2018-03-15 11:38 | XMS REPORT ---
Author Author HERBERT MCGOWAN [facility] Address [address] [place] [address] Care Team Providers Care Field Service Analyst Name Role Phone HERBERT MCGOWAN Unavailable PROBLEMS Type Condition ICD9-CM Code [id number] Code Onset Dates Condition Status SNOMED Code Problem Dehydration 276.51 Active 76380209 Problem Hypopotassemia 276.8 Active 18958628 Problem Bilateral low back pain with sciatica, sciatica laterality unspecified M54.40 Active 037057782 Problem Urinary tract infection, site not specified 599.0 Active 36295499 Problem Visual disturbance H53.9 Active 65877003 Problem Blood in stool 578.1 Active 073106210 Problem Borderline personality disorder F60.3 Active 48578614 Problem Bipolar disorder F31.9 Active 28162347 Problem Posttraumatic stress disorder F43.10 Active 05219482 Problem Essential (primary) hypertension I10 Active 96881640 Problem Social anxiety disorder F40.10 Active 59230662 Problem Irritable bowel syndrome 564.1 Active 21615558 Problem 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 Active 96923994 Problem Abdominal pain, generalized 789.07 Active 074555118 Problem Overdose T50.901A Active 33864338 Problem Chronic pain G89.29 Active 87559771 Problem Encounter for dental examination and cleaning without abnormal findings Z01.20 Active 594219315 Problem Bipolar 1 disorder F31.9 Active 367892030 Problem Essential hypertension, benign 401.1 Active 9794586 Problem Cervicalgia 723.1 Active 76014735 Problem Nausea alone 787.02 Active 717017143 Problem Esophageal reflux 530.81 Active 459656924 Problem Other dyspnea and respiratory abnormalities 786.09 Active 478865122 Problem Pelvic pain R10.2 Active 88725003 Problem Hypertrophy of breast 611.1 Active 658713433 Problem Screening mammogram for high-risk patient V76.11 Active 78113313 ALLERGIES Unknown Allergies SOCIAL HISTORY No smoking Hx information available PLAN OF CARE VITAL SIGNS MEDICATIONS Medication Instructions Dosage Frequency Start Date End Date Duration Status Neurontin 300 MG Orally 3 times a day 1 capsule 8h September, Active Combivent Respimat 20-100 MCG/ACT Inhalation Four times a day 1 puff 6h Active RESULTS No Results PROCEDURES No Known procedures IMMUNIZATIONS No Known Immunizations
--- OUTSIDE RECORDS SUMMARY | 2018-03-15 11:38 | XMS REPORT ---
Author Author HERBERT MCGOWAN [facility] Address [address] [place] [address] Care Team Providers Care Oil Deliverer Name Role Phone HERBERT MCGOWAN Unavailable PROBLEMS Type Condition ICD9-CM Code [id number] Code Onset Dates Condition Status SNOMED Code Problem Chronic pain G89.29 Active 27689499 Problem Social anxiety disorder F40.10 Active 43495845 Problem Encounter for dental examination and cleaning without abnormal findings Z01.20 Active 505701214 Problem Essential hypertension I10 Active 82935532 Problem Psoriasis L40.9 Active 2760928 Problem Acquired hypothyroidism E03.9 Active 915982657 Problem Obstructive sleep apnea G47.33 Active 11062374 Problem Morbid obesity, unspecified obesity type E66.01 Active 794102201 Problem Gastro-esophageal reflux disease without esophagitis K21.9 Active 423351245 Problem Pelvic pain R10.2 Active 29904892 Problem Bilateral low back pain with sciatica, sciatica laterality unspecified M54.40 Active 158130907 Problem Borderline personality disorder F60.3 Active 97555727 Problem Bipolar disorder F31.9 Active 37744081 Problem Visual disturbance H53.9 Active 99923144 Problem Overdose T50.901A Active 10341363 Problem Posttraumatic stress disorder F43.10 Active 77250600 Problem Bipolar 1 disorder F31.9 Active 026496299 ALLERGIES No Information SOCIAL HISTORY Never Assessed [...] hernia Hospitalization History Went by ambulance to [facility] as unresponsive 05/2015 Hospitalization History [facility] sent her to [facility] for a psych hold 05/2015
--- OUTSIDE RECORDS SUMMARY | 2018-03-15 11:38 | XMS REPORT ---
Author Author HERBERT MCGOWAN [facility] [place] eClinicalWorks Address Unknown Phone Unavailable Care Team Providers Care Talent Acquisition Program Manager Name Role Phone HERBERT MCGOWAN CP [...] Status Dosage Hydrocodone-Acetaminophen [facility] [address]-22 7.5-325 MG July 29, 2014 1 tablet by Oral route 3 times per day PRN Results No Known Results Summary Purpose eClinicalWorks Submission
--- OUTSIDE RECORDS SUMMARY | 2018-03-15 11:38 | XMS REPORT ---
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 Active 841651020 Problem Pelvic pain R10.2 Active 92773869 Problem Blindness of right eye H54.40 Active 299599904 Problem Relationship problem with family member Z63.8 Active 129125144 Problem Essential hypertension I10 Active 36276303 Problem Other chronic pain G89.29 Active 00444049 Problem Lumbago with sciatica, left side M54.42 Active 140582653 Problem Bipolar disorder F31.9 Active 96123963 Problem Posttraumatic stress disorder F43.10 Active 49346284 Problem Bilateral low back pain with sciatica, sciatica laterality unspecified M54.40 Active 418374271 Problem Visual disturbance H53.9 Active 49897162 Problem Overdose T50.901A Active 81630264 Problem Social anxiety disorder F40.10 Active 90094216 Problem Borderline personality disorder F60.3 Active 37510680 Problem Obstructive sleep apnea G47.33 Active 19529345 Problem Chronic pain G89.29 Active 92730159 Problem Acquired hypothyroidism E03.9 Active 097958010 ALLERGIES No Information ENCOUNTERS Encounter Location Date Diagnosis [facility] [id number], [place] [address] Oct, [facility] [id number], [place] [address] 24 Aug, 2017 [facility] [id number] [place] [address] 08126- 9052 Aug, [facility] [id number] [place] [address] 39909- 8807 Aug, Serpiginous choroiditis H31.22 [facility] [id number] [place] [address] 22084- 8446 Jul, Bipolar disorder F31.9 ; Posttraumatic stress disorder F43.10 and Borderline personality disorder F60.3 [facility] [id number] [place] [address] 83167- 4901 Jul, [place] [address] [address]61- 2060 Jun, Bipolar disorder F31.9 ; Posttraumatic stress disorder F43.10 and Borderline personality disorder F60.3 [place] [id number] [place] [address] 60526- 5449 Jun, Blindness of right eye H54.40 and Acquired hypothyroidism E03.9 [facility] [id number] [place] [address] 36844- 7886 Jun, [place] [id number] [place] [address] 39924- 3756 May, Posttraumatic stress disorder F43.10 ; Social anxiety disorder F40.10 and Bipolar disorder F31.9 [facility] [id number] [place] [address] 63396- 6202 May, Bipolar disorder F31.9 ; Posttraumatic stress disorder F43.10 and Borderline personality disorder F60.3 [facility] [id number] [place] [address] 15259- 4939 May, [facility] [id number] [place] [address] 00984- 5164 May, [facility] [address] [place] [address] 61454- 0583 Apr, Bipolar disorder F31.9 ; Posttraumatic stress disorder F43.10 and Borderline personality disorder F60.3 [facility] [address] [facility] [id number] [id number] Apr, [facility] [id number] [place] [address] 15996- 6964 Apr, [facility] [id number] [place] [address] 94320- 7270 Mar, Hydradenitis L73.2 [facility] [id number] [place] [address] 29594- 9434 15 Mar, 2017 Lumbago with sciatica, left side M54.42 ; Other chronic pain G89.29 ; Morbid obesity, unspecified obesity type E66.01 ; Hydradenitis L73.2 and BMI 40.0-44.9, adult Z68.41 [facility] [address] [place] [address] 29683- 3322 07 Mar, 2017 Bipolar disorder F31.9 ; Posttraumatic stress disorder F43.10 and Borderline personality disorder F60.3 [facility] [address] [place] [address] 13530- 2177 07 Mar, 2017 Social anxiety disorder F40.10 ; Bipolar disorder F31.9 and Relationship problem with family member Z63.8 [facility] [address] [place] [address] 85872- 4615 06 Mar, [address] [id number] [id number] 06 Mar, 2017 Dental examination Z01.20 [facility] [address], [place] [address] 3556 Mar, [facility] [address] [place] [address] 01265- 2912 Feb, Bipolar disorder F31.9 ; Posttraumatic stress disorder F43.10 and Borderline personality disorder F60.3 [facility] [address] [id number] [id number] Feb, [facility] [address], [place] [address] 5225 14 Jan, 2017 Bipolar disorder F31.9 ; Posttraumatic stress disorder F43.10 and Borderline personality disorder F60.3 [facility] [address] [id number] [id number] Jan, [facility] [address], [place] [address] 9377 Jan, [facility] [address] [place] [address] [id number] Jan, [facility] [id number] [place] [address] 66283- 6018 Dec, Bipolar disorder F31.9 ; Posttraumatic stress disorder F43.10 and Borderline personality disorder F60.3 [facility] [id number] [place] [address] 31002- 7344 Dec, [facility] [id number] [place] [address] 76745- 1681 Dec, [facility] [address] [place] [address] [id number] Dec, [facility] [address] [place] [address] 50780- 6339 Nov, Bipolar 1 disorder F31.9 ; Posttraumatic stress disorder F43.10 and Social anxiety disorder F40.10 [facility] [address] [place] [address] 41158- 7108 Nov, Bipolar disorder F31.9 ; Posttraumatic stress disorder F43.10 and Borderline personality disorder F60.3 [facility] [address], [place] [address] 2176 Nov, Morbid obesity, unspecified obesity type E66.01 [facility] [address], [place] [address] 4206 Nov, [facility] [address] [place], [place] [address] [id number] [id number] Oct, Encounter for dental examination and cleaning without abnormal findings Z01.20 [place] [id number] [place] [address] 92742- 7017 15 Oct, 2016 Morbid obesity, unspecified obesity type E66.01 and Acute seasonal allergic rhinitis due to pollen J30.1 [place] [id number] [place] [address] 16183- 8166 08 Oct, 2016 Bipolar disorder F31.9 ; Posttraumatic stress disorder F43.10 and Borderline personality disorder F60.3 [place] [id number] [place] [address] 22467- 3200 September, Morbid obesity, unspecified obesity type E66.01 and Psoriasis L40.9 [place] [address] 73595- 7316 September, Bipolar disorder F31.9 ; Posttraumatic stress disorder F43.10 and Borderline personality disorder F60.3 [place] [address] 49876- 2230 September, Chronic pain G89.29 [place] [id number] [place] [address] 25335- 8572 Aug, Other acute nonsuppurative otitis media of right ear H65.191 and Morbid obesity, unspecified obesity type E66.01 [place] [id number] [place] [address] 52059- 7350 Aug, Bipolar 1 disorder F31.9 ; Posttraumatic stress disorder F43.10 and Social anxiety disorder F40.10 [place] [id number] [place] [address] 50673- 4502 Aug, Bipolar disorder F31.9 ; Posttraumatic stress disorder F43.10 and Borderline personality disorder F60.3 [place] [id number] [place] [address] 51290- 7154 Jul, Morbid obesity due to excess calories E66.01 ; Gastro- esophageal reflux disease without esophagitis K21.9 and Chronic pain G89.29 [place] [address] [address] 6162 15 Jul, 2016 Morbid obesity due to excess calories E66.01 [facility] [id number] [place] [address] 65618- 4696 Jul, [facility] [address] [place] [address] 75605- 5615 Jul, [facility] [id number] [place] [address] 48129- 2359 Jul, Morbid obesity due to excess calories E66.01 [facility] [address] [place] [address] 64457- 2193 Jul, Bipolar disorder F31.9 ; Posttraumatic stress disorder F43.10 and Borderline personality disorder F60.3 [facility] [address] [place] [address] 64001- 3013 Jun, [facility] [id number] [place] [address] 26471- 2672 Jun, Morbid obesity due to excess calories E66.01 [facility] [address] [place] [address] 02796- 1015 Jun, [facility] [address] [place] [address] 24094- 9997 Jun, Morbid obesity, unspecified obesity type E66.01 [facility] [address] [place] [address] 19497- 0875 Jun, Bipolar disorder F31.9 ; Posttraumatic stress disorder F43.10 and Borderline personality disorder F60.3 [facility] [address] [place] [address] 29583- 1573 Jun, [facility] [id number] [place] [address] 97189- 4950 Jun, [facility] [address] [place] [address] 68180- 5831 Jun, Acquired hypothyroidism E03.9 and Morbid obesity due to excess calories E66.01 [facility] [address], [place] [address]- 7936 May, Bipolar disorder F31.9 ; Posttraumatic stress disorder F43.10 and Borderline personality disorder F60.3 [facility] [address] [place] [address] 68582- 7106 13 Apr, 2016 Bipolar 1 disorder F31.9 ; Posttraumatic stress disorder F43.10 and Social anxiety disorder F40.[address] [id number][place] [id number] 12 Apr, 2016 Encounter for dental examination Z01.20 [facility] [address] [place] [address] 59475- 0869 08 Apr, 2016 [facility] [id number] [place] [address] 26493- 4428 08 Apr, 2016 Acquired hypothyroidism E03.9 [facility] [address] [place] [address] 06205- 7376 07 Apr, 2016 Acquired hypothyroidism E03.9 [facility] [id number] [place] [address] 95642- 1082 07 Apr, 2016 Bipolar disorder F31.9 ; Posttraumatic stress disorder F43.10 and Borderline personality disorder F60.3 [facility] [address] [place] [address] 61161- 4251 06 Apr, 2016 Acquired hypothyroidism E03.[address] [id number][place] [id number] 23 Mar, 2016 Encounter for dental examination and cleaning without abnormal findings Z01.20 [facility] [id number] [place] [address] 34132- 8252 08 Mar, 2016 [facility] [address] [place] [address] 98209- 1973 08 Mar, 2016 Bipolar disorder F31.9 ; Posttraumatic stress disorder F43.10 and Borderline personality disorder F60.3 [facility] [address] [place] [address] 85341- 9288 Mar, Essential (primary) hypertension I10 [facility] [address] 50539- 8752 Feb, [facility] [id number] [place] [address] 52537- 3764 14 Feb, 2016 [place] [address] 35171- 2416 Feb, Pelvic pain R10.2 ; Lipid screening Z13.220 ; Fatigue, unspecified type R53.83 and Weight gain R63.5 [place] [id number] [place] [address] 66027- 8040 11 Feb, 2016 Bipolar disorder F31.9 ; Posttraumatic stress disorder F43.10 and Borderline personality disorder F60.3 [place] [id number] [place] [address] 16429- 5543 Feb, [facility] [id number] [place] [address] 02894- 8337 05 Feb, 2016 [place] [id number] [place] [address] 73622- 7999 30 Jan, 2016 Obstructive sleep apnea syndrome G47.33 [place] [id number] [place] [address] 33960- 9036 26 Jan, [address] [id number] [id number] 19 Jan, 2016 Dental examination Z01.20 [facility] [address] [place] [address] 83030- 4761 13 Jan, 2016 Bipolar 1 disorder F31.9 ; Posttraumatic stress disorder F43.10 and Social anxiety disorder F40.10 [place] [address] [place] [address] 64972- 4333 13 Jan, 2016 Bipolar disorder F31.9 ; Posttraumatic stress disorder F43.10 and Borderline personality disorder F60.3 [place] [address], [place] [address]- 0696 13 Jan, 2016 Sciatica of left side M54.32 [facility] [address] [place] [address] 22155- 8516 Jan, [facility] [address], [place] [address]- 7126 Dec, [facility] [id number] [place] [address] 23729- 4956 Dec, [facility] [address] [place] [address] 97873- 2434 Dec, Bipolar disorder F31.9 ; Posttraumatic stress disorder F43.10 and Borderline personality disorder F60.3 [facility] [address] [place] [address] 84311- 9833 Nov, [facility] [id number] [place] [address] 82851- 7525 Nov, Insomnia, unspecified type G47.00 [facility] [address] [place] [address] 56338- 0345 Nov, Bipolar disorder F31.9 ; Posttraumatic stress disorder F43.10 and Borderline personality disorder F60.3 [facility] [address], [place] [address]- 4081 Nov, [facility] [address] [place] [address] 99589- 5426 Nov, [facility] [address], [place] [address]- 2543 Oct, Bipolar disorder F31.9 ; Posttraumatic stress disorder F43.10 and Borderline personality disorder F60.3 [facility] [address], [place] [address]- 4681 Oct, [facility] [address], [place] [address]- 8636 Oct, Essential (primary) hypertension I10 [facility] [address], [place] [address]- 4681 September, Bipolar 1 disorder F31.9 ; Posttraumatic stress disorder F43.10 and Social anxiety disorder F40.10 [facility] [address], [place] [address]- 8737 September, Bipolar disorder F31.9 ; Posttraumatic stress disorder F43.10 and Borderline personality disorder F60.[address] [id number][place] [id number] September, Encounter for dental examination and cleaning without abnormal findings Z01.20 [facility] [id number] [place] [address] 67636- 1899 September, [facility] [address] [place] [address] 84501- 2516 September, [facility] [id number] [place] [address] 93957- 1445 Aug, [facility] [id number] [place] [address] 14347- 5618 Aug, Bipolar disorder F31.9 ; Posttraumatic stress disorder F43.10 and Borderline personality disorder F60.3 [facility] [address], [place] [address]- 9861 Aug, [facility] [id number] [place] [address] 03242- 5976 Aug, [facility] [address] [place] [address] 70883- 2840 Aug, [facility] [id number] [place] [address] [id number] Jul, Acute nasopharyngitis [common cold] J00 and Other viral agents as the cause of diseases classified elsewhere B97.89 [facility] [address] [place] [address] 77488- 7508 Jul, Chronic pain G89.29 and Allergic rhinitis J30.9 [facility] [address], [place] [address] 2546 24 Jul, 2015 Bipolar 1 disorder F31.9 ; Posttraumatic stress disorder F43.10 and Social anxiety disorder F40.10 [facility] [address], [place] [address] 2546 16 Jul, 2015 Bipolar 1 disorder F31.9 [facility] [address] [place] [address] 44213 2546 16 Jul, 2015 Bipolar disorder F31.9 ; Posttraumatic stress disorder F43.10 and Borderline personality disorder F60.3 [facility] [id number] [place] [address] 03876 2546 14 Jul, 2015 [facility] [id number] [place] [address] 82700 2546 14 Jul, 2015 [facility] [id number] [place] [address] 88275 2546 11 Jul, 2015 [facility] [address] [place] [address] 62494 2546 10 Jul, 2015 Anxiety F41.9 [facility] [id number] [place] [address] 26268 2546 10 Jul, 2015 Chronic pain G89.29 and Encounter for therapeutic drug level monitoring Z51.81 [facility] [address] [place] [address] 43700 2546 09 Jul, 2015 Chronic pain G89.29 and Encounter for therapeutic drug level monitoring Z51.81 [facility] [address], [place] [address] 2546 08 Jul, 2015 [facility] [id number] [place] [address] 76480 2546 19 Jun, 2015 [facility] [address], [place] [address] 2546 19 Jun, 2015 [facility] [id number] [place] [address] 94849- 7127 Jun, [facility] [id number] [place] [address] 40216- 3355 Jun, [facility] [id number] [place] [address] 16684- 7477 Jun, High risk medication use V58.69 [facility] [id number] [place] [address] 92788- 7320 Jun, [facility] [id number] [place] [address] 81338- 3452 Jun, Bipolar 1 disorder F31.9 ; Overdose T50.901A and Chronic pain G89.29 [facility] [id number] [place] [address] 15875- 3097 Jun, Bipolar disorder F31.9 ; Posttraumatic stress disorder F43.10 and Borderline personality disorder F60.3 [facility] [id number] [place] [address] 26366- 6787 Jun, [facility] [id number] [place] [address] 14740- 9245 Jun, [facility] [id number] [place] [address] 76977- 9698 Jun, Keloid L91.0 [facility] [id number] [place] [address] 89256- 8439 Jun, [facility] [id number] [place] [address] 80188- 8004 May, [facility] [id number] [place] [address] 17450- 6626 May, [facility] [id number] [place] [address] 10762- 1912 May, Pelvic pain R10.2 [facility] [id number] [place] [address] 18201- 1344 May, [facility] [address], [place] [address]- 9478 May, Pain of left thumb M79.645 ; Incisional pain R20.8 ; Pelvic pain R10.2 and Essential hypertension I10 [facility] [address], [place] [address]- 7084 May, [facility] [id number] [place] [address] 52781- 0964 May, [address] [id number][place] [id number] May, Dental examination Z01.20 and Necrosis of pulp K04.1 [facility] [address] [place] [address] 84643- 0032 Apr, [facility] [id number] [place] [address] 92285- 5539 Apr, [facility] [id number] [place] [address] 20166- 6585 Apr, [facility] [id number] [place] [address]8699- 8723 Apr, [facility] [id number] [place] [address] 28054- 4049 Apr, [facility] [id number] [address] Apr, [facility] [id number] [address] Apr, [facility] [id number] [place] [address] Apr, [facility] [id number] [place] [address] 08618- 5393 Mar, [facility] [id number] [address] Mar, [facility] [id number] [address] Mar, [facility] [id number] [place] [address] Mar, [facility] [id number] [place] [address] Feb, [facility] [id number] [address] Feb, [facility] [id number] [place] [address] Feb, [facility] [id number] [place] [address] 78743- 4205 Feb, [facility] [id number] [place] [address] 09594- 8120 Feb, [facility] [id number] [place] [address] 72799- 0003 Feb, [facility] [id number] [place] [address] Feb, [facility] [id number] [place] [address] Feb, Dermatofibroma of left lower leg D23.72 [facility] [id number] [place] [address] Feb, Hematochezia 578.1 ; Low back pain M54.5 ; High risk medication use V58.69 ; Cervicalgia M54.2 and Anxiety F41.9 [facility] [address] [id number] [id number] Feb, Dental examination Z01.20 ; Pulpitis K04.0 and Dental caries, unspecified K02.9 [facility] [address] [id number] [id number] Feb, Dental examination Z01.20 [facility] [id number], [place] [address] Jan, [facility] [address] [id number] [place] [address] Jan, [facility] [address] [id number], [place] [address] Jan, [facility] [address] [id number], [place] [address] Jan, [facility] [address] [id number], [place] [address] Dec, [facility] [address] [id number] [place] [address] 7626 Dec, [facility] [address] [id number], [place] [address] Dec, [facility] [address] [id number], [place] [address] Dec, [facility] [address] [id number], [place] [address] Dec, [facility] [address] [id number], [place] [address] Dec, [facility] [address] [facility] [id number], [place] [address] Dec, [facility] [address] [id number], [place] [address] Dec, [facility] [address] [id number] [id number] Nov, Encounter for removal of sutures V58.32 [facility] [address] [id number], [place] [address] Nov, [facility] [address] [id number], [place] [address] 7[address] Nov, [facility] [address] [id number], [place] [address]33 Nov, [facility] [address] [id number], [place] [address] Nov, [facility] [id number], [place] [address] 6[address] Nov, [facility] [id number], [place] [address] 5[address] Nov, [facility] [address]65[address], [place] [address] 6774 Nov, [facility] [id number], [place] [address]60 Nov, Dermatofibroma 216.9 [facility] [address]00565100[place], [place] [address] 5940 Nov, [facility] [address], [place] [address] 97[address] Nov, [facility] [address]00565100[place], [place] [address] 24[address] Oct, [facility] [address] [id number], [place] [address] Oct, Hematochezia 578.1 ; Abscess 682.9 ; GERD (gastroesophageal reflux disease) 530.81 ; Visual disturbance of one eye 368.9 and High risk medication use V58.69 [facility] [address] [id number], [place] [address] 9810 Oct, [facility] [address], [place] [address] 4413 Oct, [facility] [address], [place] [address] 2160 Oct, [facility] [address] [id number], [place] [address] 9064 September, [facility] [address] [id number], [place] [address] 7627 September, [facility] [id number] [place] [address]- 2238 September, [facility] [address] [facility] [id number] [place] [address]- 5510 September, [facility] [place] [facility] [address] [facility] [id number] [place] [address]- 7615 September, [facility] [address] [facility] [id number] [place] [address]- 9691 September, Colon cancer screening V76.51 [facility] [place] [facility] [address] [id number] [place] [address]- 6216 September, [facility] [place] [facility] [address] [facility] [id number] [place] [address]- 4714 Aug, [facility] [place] [facility] [address] [facility] [id number] [place] [address]- 0997 Aug, [facility] [place] [facility] [address] [facility] [id number] [place] [address]- 0821 Jul, [facility] [place] [facility] [address] [facility] [id number] [place] [address]- 0767 Jul, [facility] [place] [facility] [address] [facility] [id number], [place] [address]- 8660 Jul, [facility] [place] [facility] [address] [id number] [place] [address]- 2078 Jul, [facility] [place] [facility] [address] [facility] [id number], [place] [address]- 5[address] Jun, [facility] [place] [facility] [address] [facility] [id number] [place] [address]- 7326 Jun, [facility] [place] [facility] [address] [facility] [id number] [place] [address]- 0452 Jun, [facility] [place] [facility] [address] [facility] [id number] [place] [address]- 1563 Jun, [facility] [place] [facility] [address] [id number], [place] [address] 0490 Jun, [facility] [address] [id number] [place] [address]- 7169 Jun, [facility] [place] [facility] [address] [id number] [place] [address]- 1335 May, [facility] [place] [facility] [address] [id number] [place] [address]- 7072 May, [facility] [place] [facility] [address] [id number] [place] [address]- 0762 May, [facility] [place] [facility] [address] [id number] [place] [address]- 7253 May, [facility] [address] [id number] [place] [address]- 9808 May, [facility] [address] [id number] [place] [address]- 6515 May, [facility] [address] [id number] [place] [address]- 5947 May, [facility] [address] [id number] [place] [address]- 8936 May, [facility] [address] [facility] [id number] [place] [address]- 3890 Apr, [facility] [address] [id number] [place] [address]- 1459 Apr, [facility] [place] [facility] [address] [id number], [place] [address]- 1062 Apr, [facility] [place] [facility] [address] [id number] [place] [address]- 8478 Apr, [facility] [place] [facility] [address] [id number] [place] [address]- 6215 Apr, [facility] [place] [facility] [address] [id number] [place] [address]- 1422 Apr, [facility] [place] [facility] [address] [id number] [place] 5202 Apr, [facility] [place] [facility] [address] [id number] [place] [address]- 9160 Apr, [facility] [place] [facility] [address] [id number] [place] [address]- 3555 Mar, [facility] [place] [facility] [address] [id number] [place] [address]- 4452 Mar, [facility] [place] [facility] [address] [id number] [place] [address]- 9357 Mar, [facility] [place] [facility] [address] [id number] [place] [address]- 6546 Mar, [facility] [place] [facility] [address] [id number] [place] [address]- 9326 Mar, [facility] [place] [facility] [address] [id number] [place] [address]- 1758 Mar, [facility] [place] [facility] [address] [id number] [place] [address]- 5027 Mar, [facility] [place] [facility] [address] [id number] [place] [address]- 5097 Mar, [facility] [place] [facility] [address] [id number] [place] [address]- 6045 Mar, [facility] [place] [facility] [address] [id number] [place] [address]- 6945 Mar, [facility] [place] [facility] [address] [id number] [place] [address]- 7627 Feb, [facility] [place] [facility] [address] [id number] [place] [address]- 2749 Feb, [facility] [place] [facility] [address] [id number] [place] [address]- 2949 Jan, [facility] [place] [facility] [address] [id number] [place] [address]- 6186 Jan, [facility] [place] [facility] [address] [id number] [place] [address]- 9975 Jan, [facility] [place] [facility] [address] [id number] [place] [address]- 4255 Jan, [facility] [place] [facility] [address] [id number] [place] [address]- 2896 Dec, [facility] [place] [facility] [address] [id number] [place] [address]- 1192 Dec, [facility] [place] [facility] [address] [id number] [place] [address]- 4790 Dec, [facility] [place] [facility] [address] [id number] [place] [address]- 3519 Dec, [facility] [place] [facility] [address] [id number] [place] [address]- 4705 Dec, [facility] [place] [facility] [address] [id number] [place] [address]- 1389 Dec, [facility] [place] [facility] [address] [id number] [place] [address]- 6195 Nov, [facility] [place] [facility] [address] [id number] [place] [address]- 8808 Nov, [facility] [place] [facility] [address] [id number] [place] [address]- 4919 Oct, [facility] [place] [facility] [address] [id number] [place] [address]- 6466 Oct, [facility] [place] [facility] [address] [id number] [place] [address]- 8064 Oct, [facility] [place] [facility] [address] [id number] [place] [address]- 4923 Oct, [facility] [place] [facility] [address] [id number] [place] [address]- 0243 September, [facility] [place] [facility] [address] [id number] [place] [address]- 3886 September, [facility] [place] [facility] [address] [id number] [place] [address]- 2504 September, [facility] [place] [facility] [address] [id number] [place] [address]- 1200 September, [facility] [place] [facility] [address] [id number] [place] 7749 September, [facility] [place] [facility] [address] [id number] [place] [address]- 9383 September, [facility] [place] [facility] [address] [id number] [place] 3603 September, [facility] [place] [facility] [address] [id number] [place] [address]- 5662 September, [facility] [place] [facility] [address] [id number] [place] [address]- 1129 Aug, [facility] [place] [facility] [address] [id number] [place] [address]- 5453 Aug, [facility] [place] [facility] [address] [id number] [place] [address]- 3088 Aug, [facility] [place] [facility] [address] [id number] [place] [address]- 2252 Aug, [facility] [place] [facility] [address] [id number] [place] [address]- 4954 Aug, [facility] [place] [facility] [address] [id number] [place] [address]- 5807 Aug, [facility] [place] [facility] [address] [id number] [place] [address]- 4684 Jul, [facility] [place] [facility] [address] [id number] [place] 9618 Jul, [facility] [place] [facility] [address] [id number] [place] [address]- 9148 Jul, [facility] [place] [facility] [address] [id number] [place] [address]- 3506 Jul, [facility] [place] [facility] [address] [id number] [place] [address]- 2228 Jun, [facility] [place] [facility] [address] [id number] [place] [address]- 9413 Jun, [facility] [place] [facility] [address] [id number] [place] [address]- 4762 Jun, [facility] [place] [facility] [address] [id number] [place] [address]- 6530 Jun, [facility] [place] [facility] [address] [id number] [place] [address]- 4292 Jun, [facility] [place] [facility] [address] [id number] [place] [address]- 3007 Jun, [facility] [place] [facility] [address] [id number] [place] [address]- 2678 May, [facility] [place] [facility] [address] [id number] [place] [address]- 5263 May, [facility] [place] [facility] [address] [id number] [place] [address]- 5540 May, [facility] [place] [facility] [address] [id number] [place] [address]- 3083 May, [facility] [place] [facility] [address] [id number] [place] [address]- 6624 May, [facility] [place] [facility] [address] [id number] [place] [address]- 8795 May, [facility] [place] [facility] [address] [id number] [place] [address]- 3108 May, [facility] [place] [facility] [address] [id number] [place] [address]- 7691 May, [facility] [place] [facility] [address] [id number] [place] [address]- 2801 16 Apr, 2013 [facility] [address] [place] [id number] 16 Apr, 2013 [facility] [address] [id number] [place] [address]- 8903 16 Apr, 2013 [facility] [address] [id number] [place] [address]- 5892 16 Apr, 2013 [facility] [address] [id number] [place] [address]- 5961 Apr, [facility] [address] [id number] [place] [address]- 5506 Apr, [facility] [address] [id number] [place] [address]- 5415 05 Apr, 2013 [facility] [address] [id number] [place] [address]- 4053 Apr, [facility] [address] [id number] [place] [address]- 2256 Apr, [facility] [address] [id number] [place] [address]- 0609 Mar, [facility] [address] [id number] [place] [address]- 2127 Mar, [facility] [address] [id number], [place] [address]- 4223 Mar, [facility] [place] [facility] [address] [id number], [place] [address]- 4236 Mar, [facility] [place] [facility] [address] [id number], [place] [address]- 3287 Mar, [facility] [place] [facility] [address] [id number], [place] [address]- 4263 Feb, [facility] [place] [facility] [address] [id number] [place] [address]- 0997 Feb, [facility] [place] [facility] [address] [id number] [place] [address]- 9366 14 Feb, 2013 [facility] [address] [id number] [place] [address]- 8868 14 Feb, 2013 [facility] [address] [id number] [place] [address]- 4289 Jan, [facility] [address] [id number] [place] [address]- 1997 24 Jan, 2013 [facility] [address] [id number] [place] [address]- 7278 Jan, [facility] [address] [id number] [place] [address]- 8868 Dec, [facility] [address] [id number] [place] [address]- 3184 Dec, [facility] [address] [id number] [place] [address]- 5866 Dec, [facility] [address] [facility] [id number] [id number] Nov, [facility] [address] [facility] [address] [id number] [address] Oct, [facility] [address] [id number] [place] [address]- 3858 Oct, [facility] [address] [id number] [place] [address]- 2573 September, [facility] [address] [id number] [place] [address]- 4717 September, [facility] [place] [facility] [address] [id number] [place] [address]- 4094 September, [facility] [place] [facility] [address] [id number] [place] [address]- 0796 September, [facility] [place] [facility] [address] [id number] [place] [address]- 3916 September, [facility] [place] [facility] [address] [id number] [place] [address]- 6693 Jul, [facility] [address] [id number] [place] [address]- 9708 Jul, [facility] [place] [facility] [address] [id number] [place] [address]- 7546 Jul, [facility] [address] [id number] [place] [address]- 5356 Jul, [facility] [place] [facility] [address] [id number] [place] [address]- 9080 Jun, [facility] [place] [facility] [address] [id number] [place] [address]- 6243 Jun, [facility] [place] [facility] [address] [id number] [place] [address]- 6895 Jun, [facility] [place] [facility] [address] [id number] [place] [address]- 6595 Jun, [facility] [address] [id number] [place] [address]- 6926 May, [facility] [address] [id number] [place] [address]- 7115 Mar, [facility] [address] [id number] [place] [address]- 4681 Mar, [facility] [address] [id number] [place] [address]- 9534 Mar, [facility] [place] [facility] [address] [id number] [place] [address]- 9507 Mar, [facility] [place] [facility] [address] [id number] [place] [address]- 2717 Mar, [facility] [place] [facility] [address] [id number] [place] [address]- 6041 Mar, [facility] [place] [facility] [address] [id number] [place] [address]- 2540 Mar, [facility] [place] [facility] [address] [facility] [id number] [place] [address]- 2546 Mar, [facility] [place] [facility] [address] [facility] [id number] [place] [address]- 4716 Feb, [facility] [place] [facility] [address] [facility] [id number] [place] [address] 2546 Feb, [facility] [place] [facility] [address] [facility] [id number] [place] [address]- 7536 Feb, [facility] [place] [facility] [address] [facility] [id number] [place] [address]- 2746 Feb, [facility] [place] [facility] [address] [facility] [id number] [place] [address]- 6386 Feb, [facility] [place] [facility] [address] [facility] [id number] [place] [address]- 2546 Feb, [facility] [place] [facility] [address] [facility] [id number], [place] [address]- 9736 Feb, [facility] [address] [id number] [id number] Jan, [facility] [address] [facility] [address] [id number] [place] [id number] Dec, [facility] [address] [facility] [id number] [address] Dec, [facility] [place] [facility] [address] [facility] [id number], [place] [address]- 2546 Nov, [facility] [place] [facility] [address] [facility] [id number], [place] [address]- 2546 Nov, [facility] [place] [facility] [address] [facility] [id number], [place] [address]- 2546 Oct, [facility] [place] [facility] [address] [facility] [id number], [place] [address]- 2546 Jul, [facility] [place] [facility] [address] [facility] [id number], [place] [address]- 9709 Jul, [facility] [address]005[address], [place] [address]- 2781 May, [facility] [address]00565[place], [place] [address]- 3726 May, [facility] [address]00565[place], [place] [address]- 5330 Nov, [facility] [address], [place] [address] Mar, [facility] [address] [facility] [id number] [address] Dec, [facility] [id number] [place] [address] Nov, [facility] [id number] [place] [address] Aug, [facility] [id number] [place] [address] Apr, [facility] [id number] [place] [address] Apr, [facility] [id number], [place] [address] Mar, [facility] [id number], [place] [address] Feb, [facility] [id number], [place] [address] September, [facility] [id number], [place] [address] Jun, [facility] [id number], [place] [address] Mar, IMMUNIZATIONS No Known Immunizations SOCIAL HISTORY Never Assessed REASON FOR VISIT Reschedule PLAN OF CARE VITAL SIGNS MEDICATIONS Unknown [...] hernia Hospitalization History Went by ambulance to [place] as unresponsive 05/2015 Hospitalization History [place] sent her to [facility] for a psych hold 05/2015
[2018-03-15] MEDS ORDERED: ESTR1TAB24 PO (11:41)
[2018-03-15] MEDS ORDERED: GABA-488 PO (11:41)
[2018-03-15] MEDS ORDERED: LAMO200T2 PO (11:41)
[2018-03-15] MEDS ORDERED: DULO60CA58 PO (11:41)
[2018-03-15] MEDS ORDERED: LEVO25TA5 PO (11:41)
[2018-03-15] MEDS ORDERED: LOSA1TAB20 PO (11:41)
[2018-03-15] MEDS ORDERED: NALT1TAB PO (11:41)
--- OUTSIDE RECORDS SUMMARY | 2018-03-15 11:41 | XMS REPORT | Continuity of Care Document ---
Author Author [facility] [place] Address Unknown Phone Unavailable Allergies Active Description Code Type Severity Reaction Onset Reported/Identified Relationship to Patient Clinical Status Yes TAPE TAPE Unknown N/A 04/13/2007 Yes aspirin Drug Allergy N/A N/A 07/03/2008 Yes codeine Drug Allergy N/A N/A 07/03/2008 Yes IVP Dye OA N/A N/ A 07/03/2008 Yes strawberries Food Allergy N/ A N/A 07/03/2008 Yes Tape OA N/A N/A 07/03/2008 Yes tomatoes Food Allergy N/A N/A 07/03/2008 Yes aspirin Drug Allergy 07/03/2008 Yes codeine Drug Allergy 07/03/2008 Yes IVP Dye OA 07/03/2008 Yes strawberries Food Allergy 07/03/2008 Yes Tape OA 07/03/2008 Yes tomatoes Food Allergy 07/03/2008 Yes TOMATOES TOMATOES Unknown N/A 05/24/2011 Yes iopamidol [id number] Drug Allergy Moderate CHEST PAIN 10/13/2011 Yes aspirin [id number] Drug Allergy Mild ABDOMINAL PAIN 10/13/2011 Yes codeine [id number] Drug Allergy Mild SEDATION 10/13/2011 Yes IVP DYE IVP DYE Unknown N/A 06/05/2015 Yes strawberry [id number] Drug Allergy Unknown N/A 06/05/2015 Yes tomato [id number] Drug Allergy Unknown N/A 06/06/2015 Medications There is no data. Problems Date Dx Coded Attending Type Code Diagnosis Diagnosed By 04/14/1439 STEFANIE RICHARDSON MD Ot T50.905A ADVERSE EFFECT OF UNSP DRUG/MEDS/BIOL ZIMMERMAN 04/02/2008 HERBERT MCGOWAN APRN 250.00 DIABETES MELLITUS 04/02/2008 HERBERT MCGOWAN APRN 724.5 BACKACHE UNSPECIFIED 04/02/2008 HERBERT MCGOWAN APRN 782.1 RASH 04/02/2008 KIM DDS, DEEPIKA F 250.00 Diabetes Mellitus 04/02/2008 KIM DDS, DEEPIKA F 724.5 Backache Unspecified 04/02/2008 KIM DDS, DEEPIKA F 782.1 Rash 04/02/2008 JUAN M HERNANDEZ HERBERT S 250.00 Diabetes Mellitus 04/02/2008 ANNAMARIE MCGOWAN APRNNDA S 724.5 Backache Unspecified 04/02/2008 JUAN M HERNANDEZ, HERBERT S 782.1 Rash 04/02/2008 KIM DDS, DEEPIKA F 250.00 Diabetes Mellitus 04/02/2008 KIM DDS, DEEPIKA F 724.5 Backache Unspecified 04/02/2008 KIM DDS, DEEPIKA F 782.1 Rash 04/02/2008 250.00 Diabetes Mellitus 04/02/2008 724.5 Backache Unspecified 04/02/2008 782.1 Rash 04/02/2008 250.00 Diabetes Mellitus 04/02/2008 724.5 Backache Unspecified 04/02/2008 782.1 Rash 04/02/2008 250.00 Diabetes Mellitus 04/02/2008 724.5 Backache Unspecified 04/02/2008 782.1 Rash 04/02/2008 250.00 Diabetes Mellitus 04/02/2008 724.5 Backache Unspecified 04/02/2008 782.1 Rash 04/02/2008 250.00 Diabetes Mellitus 04/02/2008 724.5 Backache Unspecified 04/02/2008 782.1 Rash 04/02/2008 250.00 Diabetes Mellitus 04/02/2008 724.5 Backache Unspecified 04/02/2008 782.1 Rash 04/02/2008 JERMAIN KATHLEEN MD 250.00 Diabetes Mellitus 04/02/2008 JERMAIN KATHLEEN MD 724.5 Backache Unspecified 04/02/2008 JERMAIN KATHLEEN MD 782.1 Rash 04/02/2008 JUAN M HERNANDEZ, HERBERT S 250.00 Diabetes Mellitus 04/02/2008 JUAN M HERNANDEZ, HERBERT S 724.5 Backache Unspecified 04/02/2008 ANNAMARIE MCGOWAN APRNNDA S 782.1 Rash 04/02/2008 ESTEFANIA PHAN, AYALA N 250.00 Diabetes Mellitus 04/02/2008 ESTEFANIA PHAN, AYALA N 724.5 Backache Unspecified 04/02/2008 ESTEFANIA PHAN, AYALA N 782.1 Rash 04/02/2008 ESTEFANIA PHAN, AYALA N 250.00 Diabetes Mellitus 04/02/2008 ESTEFANIA PHAN, AYALA N 724.5 Backache Unspecified 04/02/2008 ESTEFANIA PHAN, AYLAA N 782.1 Rash 04/02/2008 JUAN M VÁSQUEZN, HERBERT S 250.00 Diabetes Mellitus 04/02/2008 JUAN M VÁSQUEZN, HERBERT S 724.5 Backache Unspecified 04/02/2008 JUAN M HERNANDEZ, HERBERT S 782.1 Rash 04/02/2008 JUAN M HERNANDEZ, HERBERT S 250.00 Diabetes Mellitus 04/02/2008 JUAN M HERNANDEZ, HERBERT S 724.5 Backache Unspecified 04/02/2008 JUAN M HERNANDEZ, HERBERT S 782.1 Rash 04/02/2008 CHRIS DDS, LISA B 250.00 Diabetes Mellitus 04/02/2008 CHRIS DDS, LISA B 724.5 Backache Unspecified 04/02/2008 CHRIS DDS, LISA B 782.1 Rash 04/02/2008 ANALIA DDS, LINDA M 250.00 Diabetes Mellitus 04/02/2008 ANALIA DDS, LINDA M 724.5 Backache Unspecified 04/02/2008 ANALIA DDS, LINDA M 782.1 Rash 04/02/2008 JUAN M VÁSQUEZN, HERBERT S 250.00 Diabetes Mellitus 04/02/2008 JUAN M VÁSQUEZN, HERBERT S 724.5 Backache Unspecified 04/02/2008 JUAN M HERNANDEZ, HERBERT S 782.1 Rash 04/02/2008 JUAN M VÁSQUEZN, HERBERT S 250.00 Diabetes Mellitus 04/02/2008 JUAN M HERNANDEZ, HERBERT S 724.5 Backache Unspecified 04/02/2008 JUAN M HERNANDEZ, HERBERT S 782.1 Rash 04/02/2008 JUAN M PSYCHOLOGICAL SCIENCE PROFESSOR, HERBERT S 250.00 Diabetes Mellitus 04/02/2008 JUAN M VÁSQUEZN, HERBERT S 724.5 Backache Unspecified 04/02/2008 JUAN M VÁSQUEZN, HERBERT S 782.1 Rash 04/02/2008 CHRIS DDS, LISA B 250.00 Diabetes Mellitus 04/02/2008 CHRIS DDS, LISA B 724.5 Backache Unspecified 04/02/2008 CHRIS DDS, LISA B 782.1 Rash 04/02/2008 JUAN M VÁSQUEZN, HERBERT S 250.00 Diabetes Mellitus 04/02/2008 JUAN M HERNANDEZ, HERBERT S 724.5 Backache Unspecified 04/02/2008 JUAN M PSYCHOLOGICAL SCIENCE PROFESSOR, HERBERT S 782.1 Rash 04/02/2008 JUAN M VÁSQUEZN, HERBERT S 250.00 Diabetes Mellitus 04/02/2008 JUAN M HERNANDEZ, HERBERT S 724.5 Backache Unspecified 04/02/2008 JUAN M HERNANDEZ, HERBERT S 782.1 Rash 04/02/2008 ANALIA DDS, LINDA M 250.00 Diabetes Mellitus 04/02/2008 ANALIA DDS, LINDA M 724.5 Backache Unspecified 04/02/2008 ANALIA DDS, LINDA M 782.1 Rash 07/03/2008 ANNAMARIE MCGOWAN APRNNDA S 724.2 lower back pain 07/03/2008 KIM DDS, DEEPIKA F 724.2 lower back pain 07/03/2008 ANNAMARIE MCGOWAN APRNNDA S 724.2 lower back pain 07/03/2008 KIM DDS, DEEPIKA F 724.2 lower back pain 07/03/2008 724.2 lower back pain 07/03/2008 724.2 lower back pain 07/03/2008 724.2 lower back pain 07/03/2008 724.2 lower back pain 07/03/2008 724.2 lower back pain 07/03/2008 724.2 lower back pain 07/03/2008 FRANNIE PHAN, JREMAIN 724.2 lower back pain 07/03/2008 ANNAMARIE MCGOWAN APRNNDA S 724.2 lower back pain 07/03/2008 ESTEFANIA PHAN, AYALA N 724.2 lower back pain 07/03/2008 ESTEFANIA PHAN, AYALA N 724.2 lower back pain 07/03/2008 JUAN M PSYCHOLOGICAL SCIENCE PROFESSOR, HERBERT S 724.2 lower back pain 07/03/2008 JUAN M PSYCHOLOGICAL SCIENCE PROFESSOR, HERBERT S 724.2 lower back pain 07/03/2008 CHRIS DDS, LISA B 724.2 lower back pain 07/03/2008 ANALIA DDS, LINDA M 724.2 lower back pain 07/03/2008 JUAN M PSYCHOLOGICAL SCIENCE PROFESSOR, HERBERT S 724.2 lower back pain 07/03/2008 JUAN M PSYCHOLOGICAL SCIENCE PROFESSOR, HERBERT S 724.2 LOWER BACK PAIN 07/03/2008 JUAN M VÁSQUEZN, HERBERT S 724.2 LOWER BACK PAIN 07/03/2008 CHRIS DDS, LISA B 724.2 LOWER BACK PAIN 07/03/2008 JUAN M HERNANDEZ, HERBERT S 724.2 LOWER BACK PAIN 07/03/2008 JUAN M HERNANDEZ, HERBERT S 724.2 LOWER BACK PAIN 07/03/2008 ANALIA DDS, LINDA M 724.2 LOWER BACK PAIN 09/30/2008 JUAN M HERNANDEZ, HERBERT S 277.7 DYSMETABOLIC SYNDROME X 09/30/2008 KIM DDS, DEEPIKA F 277.7 DYSMETABOLIC SYNDROME X 09/30/2008 JUAN M HERNANDEZ, HERBERT S 277.7 DYSMETABOLIC SYNDROME X 09/30/2008 KIM CHRISTOPHERS, DEEPIKA F 277.7 DYSMETABOLIC SYNDROME X 09/30/2008 277.7 DYSMETABOLIC SYNDROME X 09/30/2008 277.7 DYSMETABOLIC SYNDROME X 09/30/2008 277.7 DYSMETABOLIC SYNDROME X 09/30/2008 277.7 DYSMETABOLIC SYNDROME X 09/30/2008 277.7 DYSMETABOLIC SYNDROME X 09/30/2008 277.7 DYSMETABOLIC SYNDROME X 09/30/2008 FRANNIE PHAN, JERMAIN 277.7 DYSMETABOLIC SYNDROME X 09/30/2008 JUAN M HERNANDEZ, HERBERT S 277.7 DYSMETABOLIC SYNDROME X 09/30/2008 AYALA MAC MD 277.7 DYSMETABOLIC SYNDROME X 09/30/2008 AYALA MAC MD N 277.7 DYSMETABOLIC SYNDROME X 09/30/2008 JUAN M PSYCHOLOGICAL SCIENCE PROFESSOR, HERBERT S 277.7 DYSMETABOLIC SYNDROME X 09/30/2008 JUAN M PSYCHOLOGICAL SCIENCE PROFESSOR, HERBERT S 277.7 DYSMETABOLIC SYNDROME X 09/30/2008 CHRIS DDS, LISA B 277.7 DYSMETABOLIC SYNDROME X 09/30/2008 ANALIA DDS, LINDA M 277.7 DYSMETABOLIC SYNDROME X 09/30/2008 JUAN M PSYCHOLOGICAL SCIENCE PROFESSOR, HERBERT S 277.7 DYSMETABOLIC SYNDROME X 09/30/2008 JUAN M PSYCHOLOGICAL SCIENCE PROFESSOR, HERBERT S 277.7 DYSMETABOLIC SYNDROME X 09/30/2008 JUAN M PSYCHOLOGICAL SCIENCE PROFESSOR, HERBERT S 277.7 DYSMETABOLIC SYNDROME X 09/30/2008 CHRIS DDS, LISA B 277.7 DYSMETABOLIC SYNDROME X 09/30/2008 JUAN M PSYCHOLOGICAL SCIENCE PROFESSOR, HERBERT S 277.7 DYSMETABOLIC SYNDROME X 09/30/2008 JUAN M PSYCHOLOGICAL SCIENCE PROFESSOR, HERBERT S 277.7 DYSMETABOLIC SYNDROME X 09/30/2008 ANALIA DDS, LINDA M 277.7 DYSMETABOLIC SYNDROME X 11/21/2008 JUAN M HERNANDEZ, HERBERT S V72.3 GYNECOLOGICAL EXAMINATION 11/21/2008 KIM DDS, DEEPIKA F V72.3 GYNECOLOGICAL EXAMINATION 11/21/2008 ANNAMARIE MCGOWAN APRNNDA S V72.3 GYNECOLOGICAL EXAMINATION 11/21/2008 KIM DDS, DEEPIKA F V72.3 GYNECOLOGICAL EXAMINATION 11/21/2008 V72.3 GYNECOLOGICAL EXAMINATION 11/21/2008 V72.3 GYNECOLOGICAL EXAMINATION 11/21/2008 V72.3 GYNECOLOGICAL EXAMINATION 11/21/2008 V72.3 GYNECOLOGICAL EXAMINATION 11/21/2008 V72.3 GYNECOLOGICAL EXAMINATION 11/21/2008 V72.3 GYNECOLOGICAL EXAMINATION 11/21/2008 JERMAIN KATHLEEN MD V72.3 GYNECOLOGICAL EXAMINATION 11/21/2008 LAURI MCGOWAN APRNA S V72.3 GYNECOLOGICAL EXAMINATION 11/21/2008 AYALA MAC MD V72.3 GYNECOLOGICAL EXAMINATION 11/21/2008 ESTEFANIA PHAN, AYALA Sahu V72.3 GYNECOLOGICAL EXAMINATION 11/21/2008 JUAN M PSYCHOLOGICAL SCIENCE PROFESSOR, HERBERT S V72.3 GYNECOLOGICAL EXAMINATION 11/21/2008 JUAN M PSYCHOLOGICAL SCIENCE PROFESSOR, HERBERT S V72.3 GYNECOLOGICAL EXAMINATION 11/21/2008 CHRIS DDS, LISA B V72.3 GYNECOLOGICAL EXAMINATION 11/21/2008 ANALIA DDS, LINDA M V72.3 GYNECOLOGICAL EXAMINATION 11/21/2008 JUAN M PSYCHOLOGICAL SCIENCE PROFESSOR, HERBERT S V72.3 GYNECOLOGICAL EXAMINATION 11/21/2008 JUAN M PSYCHOLOGICAL SCIENCE PROFESSOR, HERBERT S V72.3 GYNECOLOGICAL EXAMINATION 11/21/2008 JUAN M PSYCHOLOGICAL SCIENCE PROFESSOR, HERBERT S V72.3 GYNECOLOGICAL EXAMINATION 11/21/2008 CHRIS DDS, LISA B V72.3 GYNECOLOGICAL EXAMINATION 11/21/2008 JUAN M PSYCHOLOGICAL SCIENCE PROFESSOR, HERBERT S V72.3 GYNECOLOGICAL EXAMINATION 11/21/2008 JUAN M PSYCHOLOGICAL SCIENCE PROFESSOR, HERBERT S V72.3 GYNECOLOGICAL EXAMINATION 11/21/2008 ANALIA DDS, LINDA M V72.3 GYNECOLOGICAL EXAMINATION 03/11/2009 JUAN M PSYCHOLOGICAL SCIENCE PROFESSOR, HERBERT S 719.47 PAIN IN JOINT, ANKLE AND FOOT 03/11/2009 KIM DDS, DEEPIKA F 719.47 Pain In Joint, Ankle And Foot 03/11/2009 JUAN M PSYCHOLOGICAL SCIENCE PROFESSOR, HERBERT S 719.47 Pain In Joint, Ankle And Foot 03/11/2009 KIM DDS, DEEPIKA F 719.47 Pain In Joint, Ankle And Foot 03/11/2009 719.47 Pain In Joint , Ankle And Foot 03/11/2009 719.47 Pain In Joint , Ankle And Foot 03/11/2009 719.47 Pain In Joint , Ankle And Foot 03/11/2009 719.47 Pain In Joint , Ankle And Foot 03/11/2009 719.47 Pain In Joint , Ankle And Foot 03/11/2009 719.47 Pain In Joint , Ankle And Foot 03/11/2009 FRANNIE PHAN, JERMAIN 719.47 Pain In Joint, Ankle And Foot 03/11/2009 JUAN M PSYCHOLOGICAL SCIENCE PROFESSOR, HERBERT S 719.47 Pain In Joint, Ankle And Foot 03/11/2009 AYALA MAC MD N 719.47 Pain In Joint, Ankle And Foot 03/11/2009 AYALA MAC MD N 719.47 Pain In Joint, Ankle And Foot 03/11/2009 ANNAMARIE MCGOWAN APRNNDA S 719.47 Pain In Joint, Ankle And Foot 03/11/2009 JUAN M HERNANDEZ HERBERT S 719.47 Pain In Joint, Ankle And Foot 03/11/2009 CHRIS CHRISTOPHERS, LISA B 719.47 Pain In Joint, Ankle And Foot 03/11/2009 LINDA HELMS DDS M 719.47 Pain In Joint, Ankle And Foot 03/11/2009 ANNAMARIE MCGOWAN APRNNDA S 719.47 Pain In Joint, Ankle And Foot 03/11/2009 JUAN M HERNANDEZ, HERBERT S 719.47 Pain In Joint, Ankle And Foot 03/11/2009 JUAN M HERNANDEZ HERBERT S 719.47 Pain In Joint, Ankle And Foot 03/11/2009 CHRIS CHRISTOPHERS, LISA B 719.47 Pain In Joint, Ankle And Foot 03/11/2009 JUAN M HERNANDEZ, HERBERT S 719.47 Pain In Joint, Ankle And Foot 03/11/2009 JUAN M HERNANDEZ HERBERT S 719.47 Pain In Joint, Ankle And Foot 03/11/2009 ANALIA CHEN, LINDA M 719.47 Pain In Joint, Ankle And Foot 11/27/2009 ANNAMARIE MCGOWAN APRNNDA S 309.81 POSTTRAUMATIC STRESS DISORDER 11/27/2009 DEEPIKA ALVAREZ DDS F 309.81 POSTTRAUMATIC STRESS DISORDER 11/27/2009 ANNAMARIE MCGOWAN APRNNDA S 309.81 POSTTRAUMATIC STRESS DISORDER 11/27/2009 DEEPIKA ALVAREZ DDS F 309.81 POSTTRAUMATIC STRESS DISORDER 11/27/2009 309.81 POSTTRAUMATIC STRESS DISORDER 11/27/2009 309.81 POSTTRAUMATIC STRESS DISORDER 11/27/2009 309.81 POSTTRAUMATIC STRESS DISORDER 11/27/2009 309.81 POSTTRAUMATIC STRESS DISORDER 11/27/2009 309.81 POSTTRAUMATIC STRESS DISORDER 11/27/2009 309.81 POSTTRAUMATIC STRESS DISORDER 11/27/2009 FRANNIE PHAN, JERMAIN 309.81 POSTTRAUMATIC STRESS DISORDER 11/27/2009 JUAN M PSYCHOLOGICAL SCIENCE PROFESSOR, HERBERT S 309.81 POSTTRAUMATIC STRESS DISORDER 11/27/2009 AYALA MAC MD N 309.81 POSTTRAUMATIC STRESS DISORDER 11/27/2009 AYALA MAC MD N 309.81 POSTTRAUMATIC STRESS DISORDER 11/27/2009 JUAN M HERNANDEZ, HERBERT S 309.81 POSTTRAUMATIC STRESS DISORDER 11/27/2009 JUAN M HERNANDEZ, HERBERT S 309.81 POSTTRAUMATIC STRESS DISORDER 11/27/2009 [facility] DDS, LISA B 309.81 POSTTRAUMATIC STRESS DISORDER 11/27/2009 ANALIA DDS, LINDA M 309.81 POSTTRAUMATIC STRESS DISORDER 11/27/2009 JUAN M HERNANDEZ HERBERT S 309.81 POSTTRAUMATIC STRESS DISORDER 11/27/2009 JUAN M HERNANDEZ HERBERT S 309.81 POSTTRAUMATIC STRESS DISORDER 11/27/2009 JUAN M HERNANDEZ, HERBERT S 309.81 POSTTRAUMATIC STRESS DISORDER 11/27/2009 CHRIS DDS, LISA B 309.81 POSTTRAUMATIC STRESS DISORDER 11/27/2009 JUAN M HERNANDEZ, HERBERT S 309.81 POSTTRAUMATIC STRESS DISORDER 11/27/2009 JUAN M HERNANDEZ, HERBERT S 309.81 POSTTRAUMATIC STRESS DISORDER 11/27/2009 ANALIA DDS, LINDA M 309.81 POSTTRAUMATIC STRESS DISORDER 04/14/2010 LAURI MCGOWAN APRNA S 682.5 CELLULITIS AND ABSCESS OF BUTTOCK 04/14/2010 KIM DDS, DEEPIKA F 682.5 Cellulitis And Abscess Of Buttock 04/14/2010 LAURI MCGOWAN APRNA S 682.5 Cellulitis And Abscess Of Buttock 04/14/2010 KIM DDS, DEEPIKA F 682.5 Cellulitis And Abscess Of Buttock 04/14/2010 682.5 Cellulitis And Abscess Of Buttock 04/14/2010 682.5 Cellulitis And Abscess Of Buttock 04/14/2010 682.5 Cellulitis And Abscess Of Buttock 04/14/2010 682.5 Cellulitis And Abscess Of Buttock 04/14/2010 682.5 Cellulitis And Abscess Of Buttock 04/14/2010 682.5 Cellulitis And Abscess Of Buttock 04/14/2010 JERMAIN KATHLEEN MD 682.5 Cellulitis And Abscess Of Buttock 04/14/2010 JUAN M PSYCHOLOGICAL SCIENCE PROFESSOR, HERBERT S 682.5 Cellulitis And Abscess Of Buttock 04/14/2010 AYALA MAC MD N 682.5 Cellulitis And Abscess Of Buttock 04/14/2010 AYALA MAC MD N 682.5 Cellulitis And Abscess Of Buttock 04/14/2010 JUAN M PSYCHOLOGICAL SCIENCE PROFESSOR, HERBERT S 682.5 Cellulitis And Abscess Of Buttock 04/14/2010 JUAN M PSYCHOLOGICAL SCIENCE PROFESSOR, HERBERT S 682.5 Cellulitis And Abscess Of Buttock 04/14/2010 CHRIS DDS, LISA B 682.5 Cellulitis And Abscess Of Buttock 04/14/2010 ANALIA DDS, LINDA M 682.5 Cellulitis And Abscess Of Buttock 04/14/2010 JUAN M PSYCHOLOGICAL SCIENCE PROFESSOR, HERBERT S 682.5 Cellulitis And Abscess Of Buttock 04/14/2010 JUAN M PSYCHOLOGICAL SCIENCE PROFESSOR, HERBERT S 682.5 Cellulitis And Abscess Of Buttock 04/14/2010 JUAN M PSYCHOLOGICAL SCIENCE PROFESSOR, HERBERT S 682.5 Cellulitis And Abscess Of Buttock 04/14/2010 CHRIS DDS, LISA B 682.5 Cellulitis And Abscess Of Buttock 04/14/2010 JUAN M PSYCHOLOGICAL SCIENCE PROFESSOR, HERBERT S 682.5 Cellulitis And Abscess Of Buttock 04/14/2010 JUAN M PSYCHOLOGICAL SCIENCE PROFESSOR, HERBERT S 682.5 Cellulitis And Abscess Of Buttock 04/14/2010 ANALIA DDS, LINDA M 682.5 Cellulitis And Abscess Of Buttock 07/13/2010 JUAN M PSYCHOLOGICAL SCIENCE PROFESSOR, HERBERT S 686.9 UNSPECIFIED LOCAL INFECTION OF SKIN AND SUBCUTANEOUS TISSUE 07/13/2010 KIM DDS, DEEPIKA F 686.9 Unspecified Local Infection Of Skin And Subcutaneous Tissue 07/13/2010 JUAN M PSYCHOLOGICAL SCIENCE PROFESSOR, HERBERT S 686.9 Unspecified Local Infection Of Skin And Subcutaneous Tissue 07/13/2010 KIM DDS, DEEPIKA F 686.9 Unspecified Local Infection Of Skin And Subcutaneous Tissue 07/13/2010 686.9 Unspecified Local Infection Of Skin And Subcutaneous Tissue 07/13/2010 686.9 Unspecified Local Infection Of Skin And Subcutaneous Tissue 07/13/2010 686.9 Unspecified Local Infection Of Skin And Subcutaneous Tissue 07/13/2010 686.9 Unspecified Local Infection Of Skin And Subcutaneous Tissue 07/13/2010 686.9 Unspecified Local Infection Of Skin And Subcutaneous Tissue 07/13/2010 686.9 Unspecified Local Infection Of Skin And Subcutaneous Tissue 07/13/2010 JERMANI KATHLEEN MD 686.9 Unspecified Local Infection Of Skin And Subcutaneous Tissue 07/13/2010 ANNAMARIE MCGOWAN APRNNDA S 686.9 Unspecified Local Infection Of Skin And Subcutaneous Tissue 07/13/2010 AYALA MAC MD 686.9 Unspecified Local Infection Of Skin And Subcutaneous Tissue 07/13/2010 AYALA MAC MD 686.9 Unspecified Local Infection Of Skin And Subcutaneous Tissue 07/13/2010 JUAN M HERNANDEZ HERBERT S 686.9 Unspecified Local Infection Of Skin And Subcutaneous Tissue 07/13/2010 JUAN M HERNANDEZ HERBERT S 686.9 Unspecified Local Infection Of Skin And Subcutaneous Tissue 07/13/2010 CHRIS DDS, LISA B 686.9 Unspecified Local Infection Of Skin And Subcutaneous Tissue 07/13/2010 ANALIA DDS, LINDA M 686.9 Unspecified Local Infection Of Skin And Subcutaneous Tissue 07/13/2010 JUAN M HERNANDEZ, HERBERT S 686.9 Unspecified Local Infection Of Skin And Subcutaneous Tissue 07/13/2010 JUAN M PSYCHOLOGICAL SCIENCE PROFESSOR, HERBERT S 686.9 Unspecified Local Infection Of Skin And Subcutaneous Tissue 07/13/2010 JUAN M HERNANDEZ, HERBERT S 686.9 Unspecified Local Infection Of Skin And Subcutaneous Tissue 07/13/2010 CHRIS DDS, LISA B 686.9 Unspecified Local Infection Of Skin And Subcutaneous Tissue 07/13/2010 JUAN M PSYCHOLOGICAL SCIENCE PROFESSOR, HERBERT S 686.9 Unspecified Local Infection Of Skin And Subcutaneous Tissue 07/13/2010 JUAN M PSYCHOLOGICAL SCIENCE PROFESSOR, HERBERT S 686.9 Unspecified Local Infection Of Skin And Subcutaneous Tissue 07/13/2010 ANALIA DDS, LINDA M 686.9 Unspecified Local Infection Of Skin And Subcutaneous Tissue 11/24/2010 JUAN M HERNANDEZ HERBERT S 616.10 VAGINITIS VULVOVAGINITIS UNSPECIFIED 11/24/2010 JUAN M PSYCHOLOGICAL SCIENCE PROFESSOR, HERBERT S 786.52 PAINFUL RESPIRATION 11/24/2010 KIM DDS, DEEPIKA F 616.10 Vaginitis Vulvovaginitis Unspecified 11/24/2010 KIM DDS, DEEPIKA F 786.52 Painful Respiration 11/24/2010 JUAN M PSYCHOLOGICAL SCIENCE PROFESSOR, HERBERT S 616.10 Vaginitis Vulvovaginitis Unspecified 11/24/2010 JUAN M PSYCHOLOGICAL SCIENCE PROFESSOR, HERBERT S 786.52 Painful Respiration 11/24/2010 KIM DDS, DEEPIKA F 616.10 Vaginitis Vulvovaginitis Unspecified 11/24/2010 KIM DDS, DEEPIKA F 786.52 Painful Respiration 11/24/2010 616.10 Vaginitis Vulvovaginitis Unspecified 11/24/2010 786.52 Painful Respiration 11/24/2010 616.10 Vaginitis Vulvovaginitis Unspecified 11/24/2010 786.52 Painful Respiration 11/24/2010 616.10 Vaginitis Vulvovaginitis Unspecified 11/24/2010 786.52 Painful Respiration 11/24/2010 616.10 Vaginitis Vulvovaginitis Unspecified 11/24/2010 786.52 Painful Respiration 11/24/2010 616.10 Vaginitis Vulvovaginitis Unspecified 11/24/2010 786.52 Painful Respiration 11/24/2010 616.10 Vaginitis Vulvovaginitis Unspecified 11/24/2010 786.52 Painful Respiration 11/24/2010 JERMAIN KATHLEEN MD 616.10 Vaginitis Vulvovaginitis Unspecified 11/24/2010 JERMAIN KATHLEEN MD 786.52 Painful Respiration 11/24/2010 JUAN M HERNANDEZ, HERBERT S 616.10 Vaginitis Vulvovaginitis Unspecified 11/24/2010 JUAN M HERNANDEZ, HERBERT S 786.52 Painful Respiration 11/24/2010 AYALA MAC MD N 616.10 Vaginitis Vulvovaginitis Unspecified 11/24/2010 AYALA MAC MD N 786.52 Painful Respiration 11/24/2010 AYALA MAC MD N 616.10 Vaginitis Vulvovaginitis Unspecified 11/24/2010 ESTEFANIA PHAN, AYALA N 786.52 Painful Respiration 11/24/2010 JUAN M PSYCHOLOGICAL SCIENCE PROFESSOR, HERBERT S 616.10 Vaginitis Vulvovaginitis Unspecified 11/24/2010 JUAN M PSYCHOLOGICAL SCIENCE PROFESSOR, HERBERT S 786.52 Painful Respiration 11/24/2010 JUAN M PSYCHOLOGICAL SCIENCE PROFESSOR, HERBERT S 616.10 Vaginitis Vulvovaginitis Unspecified 11/24/2010 JUAN M PSYCHOLOGICAL SCIENCE PROFESSOR, HERBERT S 786.52 Painful Respiration 11/24/2010 CHRIS DDS, LISA B 616.10 Vaginitis Vulvovaginitis Unspecified 11/24/2010 CHRIS DDS, LISA B 786.52 Painful Respiration 11/24/2010 ANALIA DDS, LINDA M 616.10 Vaginitis Vulvovaginitis Unspecified 11/24/2010 ANALIA DDS, LINDA M 786.52 Painful Respiration 11/24/2010 JUAN M HERNANDEZ, HERBERT S 616.10 Vaginitis Vulvovaginitis Unspecified 11/24/2010 JUAN M PSYCHOLOGICAL SCIENCE PROFESSOR, HERBERT S 786.52 Painful Respiration 11/24/2010 JUAN M PSYCHOLOGICAL SCIENCE PROFESSOR, HERBERT S 616.10 Vaginitis Vulvovaginitis Unspecified 11/24/2010 JUAN M PSYCHOLOGICAL SCIENCE PROFESSOR, HERBERT S 786.52 Painful Respiration 11/24/2010 JUAN M PSYCHOLOGICAL SCIENCE PROFESSOR, HERBERT S 616.10 Vaginitis Vulvovaginitis Unspecified 11/24/2010 JUAN M PSYCHOLOGICAL SCIENCE PROFESSOR, HERBERT S 786.52 Painful Respiration 11/24/2010 CHRIS DDS, LISA B 616.10 Vaginitis Vulvovaginitis Unspecified 11/24/2010 CHRIS DDS, LISA B 786.52 Painful Respiration 11/24/2010 JUAN M PSYCHOLOGICAL SCIENCE PROFESSOR, HERBERT S 616.10 Vaginitis Vulvovaginitis Unspecified 11/24/2010 JUAN M PSYCHOLOGICAL SCIENCE PROFESSOR, HERBERT S 786.52 Painful Respiration 11/24/2010 JUAN M PSYCHOLOGICAL SCIENCE PROFESSOR, HERBERT S 616.10 Vaginitis Vulvovaginitis Unspecified 11/24/2010 JUAN M PSYCHOLOGICAL SCIENCE PROFESSOR, HERBERT S 786.52 Painful Respiration 11/24/2010 ANALIA DDS, LINDA M 616.10 Vaginitis Vulvovaginitis Unspecified 11/24/2010 ANALIA DDS, LINDA M 786.52 Painful Respiration 12/08/2010 JUAN M VÁSQUEZN, HERBERT S 078.11 CONDYLOMA ACUMINATUM 12/08/2010 KIM DDS, DEEPIKA F 078.11 Condyloma Acuminatum 12/08/2010 JUAN M VÁSQUEZN, HERBERT S 078.11 Condyloma Acuminatum 12/08/2010 KIM DDS, DEEPIKA F 078.11 Condyloma Acuminatum 12/08/2010 078.11 Condyloma Acuminatum 12/08/2010 078.11 Condyloma Acuminatum 12/08/2010 078.11 Condyloma Acuminatum 12/08/2010 078.11 Condyloma Acuminatum 12/08/2010 078.11 Condyloma Acuminatum 12/08/2010 078.11 Condyloma Acuminatum 12/08/2010 FRANNIE PHAN, JERMAIN 078.11 Condyloma Acuminatum 12/08/2010 JUAN M HERNANDEZ, HERBERT S 078.11 Condyloma Acuminatum 12/08/2010 ESTEFANIA PHAN, AYALA N 078.11 Condyloma Acuminatum 12/08/2010 ESTEFANIA PHAN, AYALA N 078.11 Condyloma Acuminatum 12/08/2010 JUAN M HERNANDEZ, HERBERT S 078.11 Condyloma Acuminatum 12/08/2010 JUAN M HERNANDEZ, HERBERT S 078.11 Condyloma Acuminatum 12/08/2010 CHRIS DDS, LISA B 078.11 Condyloma Acuminatum 12/08/2010 ANALIA DDS, LINDA M 078.11 Condyloma Acuminatum 12/08/2010 JUAN M HERNANDEZ, HERBERT S 078.11 Condyloma Acuminatum 12/08/2010 JUAN M HERNANDEZ, HERBERT S 078.11 Condyloma Acuminatum 12/08/2010 JUAN M HERNANDEZ, HERBERT S 078.11 Condyloma Acuminatum 12/08/2010 CHRIS DDS, LISA B 078.11 Condyloma Acuminatum 12/08/2010 JUAN M PSYCHOLOGICAL SCIENCE PROFESSOR, HERBERT S 078.11 Condyloma Acuminatum 12/08/2010 JUAN M PSYCHOLOGICAL SCIENCE PROFESSOR, HERBERT S 078.11 Condyloma Acuminatum 12/08/2010 ANALIA DDS, LINDA M 078.11 Condyloma Acuminatum 01/04/2011 JUAN M PSYCHOLOGICAL SCIENCE PROFESSOR, HERBERT S V76.10 BREAST SCREENING, UNSPECIFIED 01/04/2011 KIM DDS, DEEPIKA F V76.10 Breast Screening, Unspecified 01/04/2011 JUAN M PSYCHOLOGICAL SCIENCE PROFESSOR, HERBERT S V76.10 Breast Screening, Unspecified 01/04/2011 KIM DDS, DEEPIKA F V76.10 Breast Screening, Unspecified 01/04/2011 V76.10 Breast Screening, Unspecified 01/04/2011 V76.10 Breast Screening, Unspecified 01/04/2011 V76.10 Breast Screening, Unspecified 01/04/2011 V76.10 Breast Screening, Unspecified 01/04/2011 V76.10 Breast Screening, Unspecified 01/04/2011 V76.10 Breast Screening, Unspecified 01/04/2011 FRANNIE PHAN, JERMAIN V76.10 Breast Screening, Unspecified 01/04/2011 JUAN M PSYCHOLOGICAL SCIENCE PROFESSOR, HERBERT S V76.10 Breast Screening, Unspecified 01/04/2011 AYALA MAC MD V76.10 Breast Screening, Unspecified 01/04/2011 AYALA MAC MD V76.10 Breast Screening, Unspecified 01/04/2011 JUAN M PSYCHOLOGICAL SCIENCE PROFESSOR, HERBERT S V76.10 Breast Screening, Unspecified 01/04/2011 JUAN M PSYCHOLOGICAL SCIENCE PROFESSOR, HERBERT S V76.10 Breast Screening, Unspecified 01/04/2011 CHRIS DDS, LISA B V76.10 Breast Screening, Unspecified 01/04/2011 ANALIA DDS, LINDA M V76.10 Breast Screening, Unspecified 01/04/2011 JUAN M PSYCHOLOGICAL SCIENCE PROFESSOR, HERBERT S V76.10 Breast Screening, Unspecified 01/04/2011 JUAN M PSYCHOLOGICAL SCIENCE PROFESSOR, HERBERT S V76.10 Breast Screening, Unspecified 01/04/2011 JUAN M PSYCHOLOGICAL SCIENCE PROFESSOR, HERBERT S V76.10 Breast Screening, Unspecified 01/04/2011 CHRIS DDS, LISA B V76.10 Breast Screening, Unspecified 01/04/2011 JUAN M PSYCHOLOGICAL SCIENCE PROFESSOR, HERBERT S V76.10 Breast Screening, Unspecified 01/04/2011 JUAN M HERNANDEZ, HERBERT S V76.10 Breast Screening, Unspecified 01/04/2011 ANALIA DDS, LINDA M V76.10 Breast Screening, Unspecified 06/01/2011 Ot 078.11 CONDYLOMA ACUMINATUM 07/27/2011 JUAN M HERNANDEZ, HERBERT S 401.1 BENIGN ESSENTIAL HYPERTENSION 07/27/2011 KIM DDS, DEEPIKA F 401.1 BENIGN ESSENTIAL HYPERTENSION 07/27/2011 JUAN M HERNANDEZ, HERBERT S 401.1 BENIGN ESSENTIAL HYPERTENSION 07/27/2011 KIM DDS, DEEPIKA F 401.1 BENIGN ESSENTIAL HYPERTENSION 07/27/2011 401.1 BENIGN ESSENTIAL HYPERTENSION 07/27/2011 401.1 BENIGN ESSENTIAL HYPERTENSION 07/27/2011 401.1 BENIGN ESSENTIAL HYPERTENSION 07/27/2011 401.1 BENIGN ESSENTIAL HYPERTENSION 07/27/2011 401.1 BENIGN ESSENTIAL HYPERTENSION 07/27/2011 401.1 BENIGN ESSENTIAL HYPERTENSION 07/27/2011 JERMAIN KATHLEEN MD 401.1 BENIGN ESSENTIAL HYPERTENSION 07/27/2011 JUAN M HERNANDEZ, HERBERT S 401.1 BENIGN ESSENTIAL HYPERTENSION 07/27/2011 AYALA MAC MD 401.1 BENIGN ESSENTIAL HYPERTENSION 07/27/2011 AYALA MAC MD N 401.1 BENIGN ESSENTIAL HYPERTENSION 07/27/2011 JUAN M HERNANDEZ, HERBERT S 401.1 BENIGN ESSENTIAL HYPERTENSION 07/27/2011 JUAN M HERNANDEZ, HERBERT S 401.1 BENIGN ESSENTIAL HYPERTENSION 07/27/2011 CHRIS CHRISTOPHERS, LISA B 401.1 BENIGN ESSENTIAL HYPERTENSION 07/27/2011 ANALIA DDS, LINDA M 401.1 BENIGN ESSENTIAL HYPERTENSION 07/27/2011 JUAN M HERNANDEZ, HERBERT S 401.1 BENIGN ESSENTIAL HYPERTENSION 07/27/2011 JUAN M HERNANDEZ, HERBERT S 401.1 BENIGN ESSENTIAL HYPERTENSION 07/27/2011 HERBERT MCGOWAN APRN 401.1 BENIGN ESSENTIAL HYPERTENSION 07/27/2011 CHRIS CHRISTOPHERS, LISA B 401.1 BENIGN ESSENTIAL HYPERTENSION 07/27/2011 HERBERT MCGOWAN APRN S 401.1 BENIGN ESSENTIAL HYPERTENSION 07/27/2011 HERBERT MCGOWAN APRN S 401.1 BENIGN ESSENTIAL HYPERTENSION 07/27/2011 ANALIA DDS, LINDA [place] 401.1 BENIGN ESSENTIAL HYPERTENSION 10/12/2011 Ot 562.10 DIVERTICULOSIS COLON (W/O MENT OF HEMORR 10/12/2011 Ot 789.04 ABDOMINAL PAIN, LEFT LOWER QUADRANT 10/16/2011 Ot 272.4 HYPERLIPIDEMIA NEC/NOS 10/16/2011 Ot 285.9 ANEMIA NOS 10/16/2011 Ot 309.81 POSTTRAUMATIC STRESS DISORDER 10/16/2011 Ot 311 DEPRESSIVE DISORDER NEC 10/16/2011 Ot 346.90 MIGRAINE UNSPECIFIED W/O INTRACT MGRN W/ 10/16/2011 Ot 401.9 HYPERTENSION NOS 10/16/2011 Ot 493.90 ASTHMA, UNSPECIFIED 10/16/2011 Ot 530.81 ESOPHAGEAL REFLUX 10/16/2011 Ot 562.10 DIVERTICULOSIS COLON (W/O MENT OF HEMORR 10/16/2011 Ot 564.00 UNSPEC CONSTIPATION 10/16/2011 Ot 714.0 RHEUMATOID ARTHRITIS 10/16/2011 Ot 715.90 OSTEOARTHROS NOS-UNSPEC 10/16/2011 Ot 787.01 NAUSEA WITH VOMITING 10/16/2011 Ot 789.04 ABDOMINAL PAIN, LEFT LOWER QUADRANT 10/16/2011 Ot 790.29 OTHER ABNORMAL GLUCOSE 10/16/2011 Ot 790.4 ELEV TRANSAMINASE/LDH 10/16/2011 Ot V11.8 HX-MENTAL DISORDER NEC 10/16/2011 Ot V45.77 ACQRD ABSENCE OF GENITAL ORGANS 11/15/2011 HERBERT MCGOWAN APRN 786.09 RESPIRATORY ABNORMALITY OTHER 11/15/2011 KIM DDS, DEEPIKA F 786.09 Respiratory Abnormality Other 11/15/2011 HERBERT MCGOWAN APRN 786.09 Respiratory Abnormality Other 11/15/2011 KIM DDS, DEEPIKA F 786.09 Respiratory Abnormality Other 11/15/2011 786.09 Respiratory Abnormality Other 11/15/2011 786.09 Respiratory Abnormality Other 11/15/2011 786.09 Respiratory Abnormality Other 11/15/2011 786.09 Respiratory Abnormality Other 11/15/2011 786.09 Respiratory Abnormality Other 11/15/2011 786.09 Respiratory Abnormality Other 11/15/2011 JERMAIN KATHLEEN MD 786.09 Respiratory Abnormality Other 11/15/2011 JUAN M HERNANDEZ HERBERT S 786.09 Respiratory Abnormality Other 11/15/2011 ESTEFANIA PHAN, AYALA N 786.09 Respiratory Abnormality Other 11/15/2011 ESTEFANIA PHAN, AYALA Sahu 786.09 Respiratory Abnormality Other 11/15/2011 JUAN M HERNANDEZ, HERBERT S 786.09 Respiratory Abnormality Other 11/15/2011 JUAN M HERNANDEZ, HERBERT S 786.09 Respiratory Abnormality Other 11/15/2011 CHRIS DDS, LISA B 786.09 Respiratory Abnormality Other 11/15/2011 ANALIA DDS, LINDA M 786.09 Respiratory Abnormality Other 11/15/2011 JUAN M HERNANDEZ HERBERT S 786.09 Respiratory Abnormality Other 11/15/2011 ANNAMARIE MCGOWAN APRNNDA S 786.09 Respiratory Abnormality Other 11/15/2011 JUAN M HERNANDEZ, HERBERT S 786.09 Respiratory Abnormality Other 11/15/2011 CHRIS DDS, LISA B 786.09 Respiratory Abnormality Other 11/15/2011 JUAN M HERNANDEZ HERBERT S 786.09 Respiratory Abnormality Other 11/15/2011 JUAN M HERNANDEZ, HERBERT S 786.09 Respiratory Abnormality Other 11/15/2011 ANALIA DDS, LINDA M 786.09 Respiratory Abnormality Other 12/19/2011 Ot 723.4 BRACHIAL NEURITIS NOS 12/19/2011 Ot 782.0 SKIN SENSATION DISTURB 12/29/2011 ANNAMARIE MCGOWAN APRNNDA S 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 12/29/2011 KIM DDS, DEPEIKA F 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 12/29/2011 ANNAMARIE MCGOWAN APRNNDA S 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 12/29/2011 KIM DDS, DEEPIKA F 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 12/29/2011 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 12/29/2011 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 12/29/2011 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 12/29/2011 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 12/29/2011 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 12/29/2011 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 12/29/2011 JERMAIN KATHLEEN MD 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 12/29/2011 JUAN M HERNANDEZ, HERBERT S 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 12/29/2011 ESTEFANIA PHAN, AYALA N 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 12/29/2011 AYALA MAC MD N 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 12/29/2011 JUAN M HERNANDEZ, HERBERT S 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 12/29/2011 JUAN M HERNANDEZ, HERBERT S 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 12/29/2011 CHRIS DDS, LISA B 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 12/29/2011 ANALIA DDS, LINDA M 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 12/29/2011 JUAN M HERNANDEZ, HERBERT S 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 12/29/2011 JUAN M PSYCHOLOGICAL SCIENCE PROFESSOR, HERBERT S 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 12/29/2011 JUAN M HERNANDEZ, HERBERT S 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 12/29/2011 CHRIS DDS, LISA B 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 12/29/2011 JUAN M PSYCHOLOGICAL SCIENCE PROFESSOR, HERBERT S 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 12/29/2011 JUAN M HERNANDEZ, HERBERT S 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 12/29/2011 ANALIA DDS, LINDA M 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 06/26/2012 JUAN M HERNANDEZ HERBERT S V76.11 SCREENING MAMMOGRAM FOR HIGH-RISK PATIENT 06/26/2012 KIM CHRISTOPHERS, DEEPIKA F V76.11 SCREENING MAMMOGRAM FOR HIGH-RISK PATIENT 06/26/2012 V76.11 SCREENING MAMMOGRAM FOR HIGH-RISK PATIENT 06/26/2012 V76.11 SCREENING MAMMOGRAM FOR HIGH-RISK PATIENT 06/26/2012 V76.11 SCREENING MAMMOGRAM FOR HIGH-RISK PATIENT 06/26/2012 V76.11 SCREENING MAMMOGRAM FOR HIGH-RISK PATIENT 06/26/2012 V76.11 SCREENING MAMMOGRAM FOR HIGH-RISK PATIENT 06/26/2012 V76.11 SCREENING MAMMOGRAM FOR HIGH-RISK PATIENT 06/26/2012 JERMAIN KATHLEEN MD V76.11 SCREENING MAMMOGRAM FOR HIGH-RISK PATIENT 06/26/2012 JUAN MPAPO HERNANDEZ, HERBERT S V76.11 SCREENING MAMMOGRAM FOR HIGH-RISK PATIENT 06/26/2012 ESTEFANIA PHAN, AYALA Sahu V76.11 SCREENING MAMMOGRAM FOR HIGH-RISK PATIENT 06/26/2012 AYALA MAC MD V76.11 SCREENING MAMMOGRAM FOR HIGH-RISK PATIENT 06/26/2012 JUAN M PSYCHOLOGICAL SCIENCE PROFESSOR, HERBERT S V76.11 SCREENING MAMMOGRAM FOR HIGH-RISK PATIENT 06/26/2012 JUAN M PSYCHOLOGICAL SCIENCE PROFESSOR, HERBERT S V76.11 SCREENING MAMMOGRAM FOR HIGH-RISK PATIENT 06/26/2012 CHRIS CHRISTOPHERS, LISA B V76.11 SCREENING MAMMOGRAM FOR HIGH-RISK PATIENT 06/26/2012 ANALIA CHRISTOPHERS, LINDA M V76.11 SCREENING MAMMOGRAM FOR HIGH-RISK PATIENT 06/26/2012 JUAN M PSYCHOLOGICAL SCIENCE PROFESSOR, HERBERT S V76.11 SCREENING MAMMOGRAM FOR HIGH-RISK PATIENT 06/26/2012 JUAN M PSYCHOLOGICAL SCIENCE PROFESSOR, HERBERT S V76.11 SCREENING MAMMOGRAM FOR HIGH-RISK PATIENT 06/26/2012 JUAN M PSYCHOLOGICAL SCIENCE PROFESSOR, HERBERT S V76.11 SCREENING MAMMOGRAM FOR HIGH-RISK PATIENT 06/26/2012 CHRIS CHRISTOPHERS, LISA B V76.11 SCREENING MAMMOGRAM FOR HIGH-RISK PATIENT 06/26/2012 JUAN M PSYCHOLOGICAL SCIENCE PROFESSOR, HERBERT S V76.11 SCREENING MAMMOGRAM FOR HIGH-RISK PATIENT 06/26/2012 JUAN M PSYCHOLOGICAL SCIENCE PROFESSOR, HERBERT S V76.11 SCREENING MAMMOGRAM FOR HIGH-RISK PATIENT 06/26/2012 ANALIA DDLINDA Fonseca V76.11 SCREENING MAMMOGRAM FOR HIGH-RISK PATIENT 11/10/2012 276.51 DEHYDRATION 11/10/2012 276.8 HYPOKALEMIA 11/10/2012 599.0 URINARY TRACT INFECTION 11/10/2012 276.51 DEHYDRATION 11/10/2012 276.8 HYPOKALEMIA 11/10/2012 599.0 URINARY TRACT INFECTION 11/10/2012 276.51 DEHYDRATION 11/10/2012 276.8 HYPOKALEMIA 11/10/2012 599.0 URINARY TRACT INFECTION 11/10/2012 276.51 DEHYDRATION 11/10/2012 276.8 HYPOKALEMIA 11/10/2012 599.0 URINARY TRACT INFECTION 11/10/2012 JERMAIN KATHLEEN MD 276.51 DEHYDRATION 11/10/2012 JERMAIN KATHLEEN MD 276.8 HYPOKALEMIA 11/10/2012 JERMAIN KATHLEEN MD 599.0 URINARY TRACT INFECTION 11/10/2012 JUAN M HERNANDEZ HERBERT S 276.51 DEHYDRATION 11/10/2012 JUAN M HERNANDEZ HERBERT S 276.8 HYPOKALEMIA 11/10/2012 ANNAMARIE MCGOWAN APRNNDA S 599.0 URINARY TRACT INFECTION 11/10/2012 ESTEFANIA PHAN, AYALA N 276.51 DEHYDRATION 11/10/2012 ESTEFANIA PHAN, AYALA N 276.8 HYPOKALEMIA 11/10/2012 ESTEFANIA PHAN, AYALA N 599.0 URINARY TRACT INFECTION 11/10/2012 ESTEFANIA PHAN, AYALA N 276.51 DEHYDRATION 11/10/2012 ESTEFANIA PHAN, AYALA N 276.8 HYPOKALEMIA 11/10/2012 ESTEFANIA PHAN, AYALA N 599.0 URINARY TRACT INFECTION 11/10/2012 JUAN M HERNANDEZ HERBERT S 276.51 DEHYDRATION 11/10/2012 JUAN M HERNANDEZ, HERBERT S 276.8 HYPOKALEMIA 11/10/2012 JUAN M HERNANDEZ HERBERT S 599.0 URINARY TRACT INFECTION 11/10/2012 JUAN M HERNANDEZ, HERBERT S 276.51 DEHYDRATION 11/10/2012 JUAN M HERNANDEZ, HERBERT S 276.8 HYPOKALEMIA 11/10/2012 JUAN M HERNANDEZ HERBERT S 599.0 URINARY TRACT INFECTION 11/10/2012 CHRIS DDS, LISA B 276.51 DEHYDRATION 11/10/2012 CHRIS DDS, LISA B 276.8 HYPOKALEMIA 11/10/2012 CHRIS DDS, LISA B 599.0 URINARY TRACT INFECTION 11/10/2012 ANALIA DDS, LINDA M 276.51 DEHYDRATION 11/10/2012 ANALIA DDS, LINDA M 276.8 HYPOKALEMIA 11/10/2012 ANALIA DDS, LINDA M 599.0 URINARY TRACT INFECTION 11/10/2012 JUAN M PSYCHOLOGICAL SCIENCE PROFESSOR, HERBERT S 276.51 DEHYDRATION 11/10/2012 JUAN M PSYCHOLOGICAL SCIENCE PROFESSOR, HERBERT S 276.8 HYPOKALEMIA 11/10/2012 JUAN M PSYCHOLOGICAL SCIENCE PROFESSOR, HERBERT S 599.0 URINARY TRACT INFECTION 11/10/2012 JUAN M PSYCHOLOGICAL SCIENCE PROFESSOR, HERBERT S 276.51 DEHYDRATION 11/10/2012 JUAN M PSYCHOLOGICAL SCIENCE PROFESSOR, HERBERT S 276.8 HYPOKALEMIA 11/10/2012 JUAN M PSYCHOLOGICAL SCIENCE PROFESSOR, HERBERT S 599.0 URINARY TRACT INFECTION 11/10/2012 JUAN M PSYCHOLOGICAL SCIENCE PROFESSOR, HERBERT S 276.51 DEHYDRATION 11/10/2012 JUAN M PSYCHOLOGICAL SCIENCE PROFESSOR, HERBERT S 276.8 HYPOKALEMIA 11/10/2012 JUAN M PSYCHOLOGICAL SCIENCE PROFESSOR, HERBERT S 599.0 URINARY TRACT INFECTION 11/10/2012 CHRIS DDS, LISA B 276.51 DEHYDRATION 11/10/2012 [facility] DDS, LISA B 276.8 HYPOKALEMIA 11/10/2012 [facility] DDS, LISA B 599.0 URINARY TRACT INFECTION 11/10/2012 JUAN M PSYCHOLOGICAL SCIENCE PROFESSOR, HERBERT S 276.51 DEHYDRATION 11/10/2012 JUAN M PSYCHOLOGICAL SCIENCE PROFESSOR, HERBERT S 276.8 HYPOKALEMIA 11/10/2012 JUAN M PSYCHOLOGICAL SCIENCE PROFESSOR, HERBERT S 599.0 URINARY TRACT INFECTION 11/10/2012 JUAN M PSYCHOLOGICAL SCIENCE PROFESSOR, HERBERT S 276.51 DEHYDRATION 11/10/2012 JUAN M PSYCHOLOGICAL SCIENCE PROFESSOR, HERBERT S 276.8 HYPOKALEMIA 11/10/2012 JUAN M PSYCHOLOGICAL SCIENCE PROFESSOR, HERBERT S 599.0 URINARY TRACT INFECTION 11/10/2012 ANALIA DDS, LINDA M 276.51 DEHYDRATION 11/10/2012 ANALIA DDSLINDA M 276.8 HYPOKALEMIA 11/10/2012 ANALIA CHRISTOPHERLINDA Fonseca 599.0 URINARY TRACT INFECTION 03/18/2013 EMILEE RODRÍGUEZ MD Ot 250.00 DIAB GENNA WO COMPL, TYPE II OR UNSPEC TY 03/18/2013 EMILEE RODRÍGUEZ MD Ot 272.4 HYPERLIPIDEMIA NEC/NOS 03/18/2013 EMILEE RODRÍGUEZ MD Ot 275.2 DIS MAGNESIUM METABOLISM 03/18/2013 EMILEE RODRÍGUEZ MD Ot 276.8 HYPOPOTASSEMIA 03/18/2013 EMILEE RODRÍGUEZ MD Ot 309.81 POSTTRAUMATIC STRESS DISORDER 03/18/2013 EMILEE RODRÍGUEZ MD Ot 338.29 OTHER CHRONIC PAIN 03/18/2013 EMILEE RODRÍGUEZ MD Ot 401.9 HYPERTENSION NOS 03/18/2013 EMILEE RODRÍGUEZ MD Ot 493.90 ASTHMA, UNSPECIFIED 03/18/2013 EMILEE RODRÍGUEZ MD Ot 530.81 ESOPHAGEAL REFLUX 03/18/2013 EMILEE RODRÍGUEZ MD Ot 564.1 IRRITABLE BOWEL SYNDROME 03/18/2013 EMILEE RODRÍGUEZ MD Ot 714.0 RHEUMATOID ARTHRITIS 03/18/2013 EMILEE RODRÍGUEZ MD Ot 722.6 DISC DEGENERATION NOS 03/18/2013 EMILEE RDORÍGUEZ MD Ot 733.00 OSTEOPOROSIS NOS 03/18/2013 EMILEE RODRÍGUEZ MD Ot 786.09 RESPIRATORY ABNORM NEC 03/18/2013 EMILEE RODRÍGUEZ MD Ot 786.59 CHEST PAIN NEC 03/18/2013 EMILEE RODRÍGUEZ MD Ot 787.03 VOMITING ALONE 03/18/2013 EMILEE RODRÍGUEZ MD Ot 789.06 ABDOMINAL PAIN, EPIGASTRIC 03/18/2013 EMILEE RODRÍGUEZ MD Ot V15.81 HX OF PAST NONCOMPLIANCE 03/28/2013 HERBERT MCGOWAN APRN S 530.81 GERD 03/28/2013 HERBERT MCGOWAN APRN S 564.1 IRRITABLE BOWEL SYNDROME 03/28/2013 HERBERT MCGOWAN APRN S 787.02 NAUSEA ALONE 03/28/2013 AYALA MAC MD 530.81 GERD 03/28/2013 AYALA MAC MD N 564.1 IRRITABLE BOWEL SYNDROME 03/28/2013 ESTEFANIA PHAN, AYALA N 787.02 NAUSEA ALONE 03/28/2013 ESTEFANIA PHAN, AYALA N 530.81 GERD 03/28/2013 AYALA MAC MD N 564.1 IRRITABLE BOWEL SYNDROME 03/28/2013 ESTEFANIA PHAN, AYALA N 787.02 NAUSEA ALONE 03/28/2013 JUAN M HERNANDEZ HERBERT S 530.81 GERD 03/28/2013 JUAN M HERNANDEZ HERBERT S 564.1 IRRITABLE BOWEL SYNDROME 03/28/2013 JUAN M HERNANDEZ, HERBERT S 787.02 NAUSEA ALONE 03/28/2013 JUAN M HERNANDEZ HERBERT S 530.81 GERD 03/28/2013 JUAN M HERNANDEZ HERBERT S 564.1 IRRITABLE BOWEL SYNDROME 03/28/2013 JUAN M HERNANDEZ, HERBERT S 787.02 NAUSEA ALONE 03/28/2013 CHRIS DDS, LISA B 530.81 GERD 03/28/2013 CHRIS DDS, LISA B 564.1 IRRITABLE BOWEL SYNDROME 03/28/2013 CHRIS DDS, LISA B 787.02 NAUSEA ALONE 03/28/2013 ANALIA DDS, LINDA M 530.81 GERD 03/28/2013 ANALIA DDS, LINDA M 564.1 IRRITABLE BOWEL SYNDROME 03/28/2013 ANALIA DDS, LINDA M 787.02 NAUSEA ALONE 03/28/2013 JUAN M HERNANDEZ HERBERT S 530.81 GERD 03/28/2013 JUAN M HERNANDEZ, HERBERT S 564.1 IRRITABLE BOWEL SYNDROME 03/28/2013 JUAN M HERNANDEZ, HERBERT S 787.02 NAUSEA ALONE 03/28/2013 JUAN MPAPO HERNANDEZ, HERBERT S 530.81 GERD 03/28/2013 JUAN MPAPO HERNANDEZ, HERBERT S 564.1 IRRITABLE BOWEL SYNDROME 03/28/2013 JUAN M HERNANDEZ HERBERT S 787.02 NAUSEA ALONE 03/28/2013 JUAN MPAPO HERNANDEZ, HERBERT S 530.81 GERD 03/28/2013 JUAN M HERNANDEZ HERBERT S 564.1 IRRITABLE BOWEL SYNDROME 03/28/2013 JUAN M PSYCHOLOGICAL SCIENCE PROFESSOR, HERBERT S 787.02 NAUSEA ALONE 03/28/2013 CHRIS DDS, LISA B 530.81 GERD 03/28/2013 CHRIS DDS, LISA B 564.1 IRRITABLE BOWEL SYNDROME 03/28/2013 CHRIS DDS, LISA B 787.02 NAUSEA ALONE 03/28/2013 JUAN M PSYCHOLOGICAL SCIENCE PROFESSOR, HERBERT S 530.81 GERD 03/28/2013 JUAN M PSYCHOLOGICAL SCIENCE PROFESSOR, HERBERT S 564.1 IRRITABLE BOWEL SYNDROME 03/28/2013 JUAN M PSYCHOLOGICAL SCIENCE PROFESSOR, HERBERT S 787.02 NAUSEA ALONE 03/28/2013 JUAN M PSYCHOLOGICAL SCIENCE PROFESSOR, HERBERT S 530.81 GERD 03/28/2013 JUAN M PSYCHOLOGICAL SCIENCE PROFESSOR, HERBERT S 564.1 IRRITABLE BOWEL SYNDROME 03/28/2013 JUAN M PSYCHOLOGICAL SCIENCE PROFESSOR, HERBERT S 787.02 NAUSEA ALONE 03/28/2013 ANALIA DDS, LINDA M 530.81 GERD 03/28/2013 ANALIA DDS, LINDA M 564.1 IRRITABLE BOWEL SYNDROME 03/28/2013 ANALIA DDS, LINDA M 787.02 NAUSEA ALONE 06/06/2013 JUAN M VÁSQUEZN, HERBERT S 789.07 ABDOMINAL PAIN GENERALIZED 06/06/2013 JUAN M PSYCHOLOGICAL SCIENCE PROFESSOR, HERBERT S 789.07 ABDOMINAL PAIN GENERALIZED 06/06/2013 CHRIS DDS, LISA B 789.07 ABDOMINAL PAIN GENERALIZED 06/06/2013 ANALIA DDS, LINDA M 789.07 ABDOMINAL PAIN GENERALIZED 06/06/2013 JUAN M PSYCHOLOGICAL SCIENCE PROFESSOR, HERBERT S 789.07 ABDOMINAL PAIN GENERALIZED 06/06/2013 JUAN M PSYCHOLOGICAL SCIENCE PROFESSOR, HERBERT S 789.07 ABDOMINAL PAIN GENERALIZED 06/06/2013 JUAN M PSYCHOLOGICAL SCIENCE PROFESSOR, HERBERT S 789.07 ABDOMINAL PAIN GENERALIZED 06/06/2013 CHRIS DDS, LISA B 789.07 ABDOMINAL PAIN GENERALIZED 06/06/2013 JUAN M PSYCHOLOGICAL SCIENCE PROFESSOR, HERBERT S 789.07 ABDOMINAL PAIN GENERALIZED 06/06/2013 JUAN M PSYCHOLOGICAL SCIENCE PROFESSOR, HERBERT S 789.07 ABDOMINAL PAIN GENERALIZED 06/06/2013 ANALIA DDS, LINDA M 789.07 ABDOMINAL PAIN GENERALIZED 09/24/2013 JUAN M PSYCHOLOGICAL SCIENCE PROFESSOR, HERBERT S 611.1 HYPERTROPHY OF BREAST 09/24/2013 JUAN M PSYCHOLOGICAL SCIENCE PROFESSOR, HERBERT S 723.1 CERVICALGIA 09/24/2013 JUAN M PSYCHOLOGICAL SCIENCE PROFESSOR, HERBERT S 611.1 HYPERTROPHY OF BREAST 09/24/2013 JUAN M PSYCHOLOGICAL SCIENCE PROFESSOR, HERBERT S 723.1 CERVICALGIA 09/24/2013 JUAN M PSYCHOLOGICAL SCIENCE PROFESSOR, HERBERT S 611.1 HYPERTROPHY OF BREAST 09/24/2013 JUAN M PSYCHOLOGICAL SCIENCE PROFESSOR, HERBERT S 723.1 CERVICALGIA 09/24/2013 CHRIS DDS, LISA B 611.1 HYPERTROPHY OF BREAST 09/24/2013 CHRIS DDS, LISA B 723.1 CERVICALGIA 09/24/2013 JUAN M PSYCHOLOGICAL SCIENCE PROFESSOR, HERBERT S 611.1 HYPERTROPHY OF BREAST 09/24/2013 JUAN M PSYCHOLOGICAL SCIENCE PROFESSOR, HERBERT S 723.1 CERVICALGIA 09/24/2013 JUAN M PSYCHOLOGICAL SCIENCE PROFESSOR, HERBERT S 611.1 HYPERTROPHY OF BREAST 09/24/2013 JUAN M PSYCHOLOGICAL SCIENCE PROFESSOR, HERBERT S 723.1 CERVICALGIA 09/24/2013 ANALIA DDS, LINDA M 611.1 HYPERTROPHY OF BREAST 09/24/2013 ANALIA DDS, LINDA M 723.1 CERVICALGIA 12/31/2013 JUAN M HERNANDEZ, HERBERT S 724.5 BACKACHE UNSPECIFIED 12/31/2013 JUAN M HERNANDEZ, HERBERT S 250.00 DIABETES II CONTROLLED (UNCOMPLICATED) 12/31/2013 JUAN M PSYCHOLOGICAL SCIENCE PROFESSOR, HERBERT S 724.5 BACKACHE UNSPECIFIED 12/31/2013 CHRIS DDS, LISA B 250.00 DIABETES II CONTROLLED (UNCOMPLICATED) 12/31/2013 CHRIS DDS, LISA B 724.5 BACKACHE UNSPECIFIED 12/31/2013 JUAN M HERNANDEZ, HERBERT S 250.00 DIABETES II CONTROLLED (UNCOMPLICATED) 12/31/2013 JUAN M PSYCHOLOGICAL SCIENCE PROFESSOR, HERBERT S 724.5 BACKACHE UNSPECIFIED 12/31/2013 JUAN M HERNANDEZ, HERBERT S 250.00 DIABETES II CONTROLLED (UNCOMPLICATED) 12/31/2013 HERBERT MCGOWAN APRN S 724.5 BACKACHE UNSPECIFIED 12/31/2013 ANALIA CHENLINDA 250.00 DIABETES II CONTROLLED (UNCOMPLICATED) 12/31/2013 ANALIA CHENLINDA 724.5 BACKACHE UNSPECIFIED 04/18/2014 VICKIE HURLEY Ot 250.00 04/18/2014 MARY EARL, VICKIE Villasenor Ot 272.4 04/18/2014 MARY EARL, VICKIE K Ot 278.00 04/18/2014 MARY EARL, VICKIE K Ot 401.9 04/18/2014 MARY EARL, VICKIE K Ot 493.90 04/18/2014 VICKIE HURLEY Ot 530.81 04/18/2014 VICKIE HURLEY Ot 786.09 07/10/2014 JUAN M HERNANDEZHERBERT 578.1 BLOOD IN STOOL 07/10/2014 ANALIA CHRISTOPHERLINDA Fonseca 578.1 BLOOD IN STOOL 08/08/2014 Ot 610.0 08/26/2014 Ot 272.4 08/26/2014 Ot 401.9 08/26/2014 Ot 414.01 08/26/2014 Ot 272.4 08/26/2014 Ot V76.12 08/26/2014 Ot 272.4 08/26/2014 Ot 397.0 08/26/2014 Ot 401.9 08/26/2014 Ot 424.0 08/26/2014 Ot 786.09 08/26/2014 Ot 786.50 08/26/2014 Ot V58.69 08/26/2014 Ot 272.4 08/26/2014 Ot V76.12 08/26/2014 Ot 078.11 08/26/2014 Ot V72.81 08/26/2014 Ot V74.8 08/26/2014 Ot 272.4 08/26/2014 Ot 272.4 08/26/2014 Ot 272.4 08/26/2014 Ot 793.89 08/26/2014 Ot V76.12 08/26/2014 Ot 793.89 08/26/2014 Ot 272.4 08/26/2014 CONNER SIM DO Ot 611.72 08/26/2014 CONNER SIM DO Ot 793.80 08/26/2014 MARCOS PHAN, EMILEE Garza Ot 272.4 08/26/2014 MARCOS PHAN, EMILEE Garza Ot 414.01 08/26/2014 VALENZUELA LEVI CELESTE D Ot 530.11 08/26/2014 VALENZUELA LEVI CELESTE D Ot 535.50 08/26/2014 VALENZUELA LEVI CELESTE D Ot 553.3 08/26/2014 VALENZUELA LEVI CELESTE D Ot 558.9 08/26/2014 VALENZUELA LEVI CELESTE D Ot V72.84 08/26/2014 CONNER SIM DO Ot 793.89 08/26/2014 VICKIE HURLEY Ot 250.00 08/26/2014 VICKIE HURLEY Ot 272.4 08/26/2014 VICKIE HURLEY Ot 278.00 08/26/2014 VICKIE HURLEY Ot 401.9 08/26/2014 VICKIE HURLEY Ot 493.90 08/26/2014 VICKIE HURLEY Ot 530.81 08/26/2014 VICKIE HURLEY Ot 786.09 08/26/2014 Ot 610.0 03/26/2015 Ot V76.12 03/26/2015 Ot 272.4 03/26/2015 Ot 397.0 03/26/2015 Ot 401.9 03/26/2015 Ot 424.0 03/26/2015 Ot 786.09 03/26/2015 Ot 786.50 03/26/2015 Ot V58.69 03/26/2015 Ot 272.4 03/26/2015 Ot V76.12 03/26/2015 Ot 078.11 03/26/2015 Ot V72.81 03/26/2015 Ot V74.8 03/26/2015 Ot 272.4 03/26/2015 Ot 272.4 03/26/2015 Ot 272.4 03/26/2015 Ot 793.89 03/26/2015 Ot V76.12 03/26/2015 Ot 793.89 03/26/2015 Ot 272.4 03/26/2015 CONNER SIM DO Ot 611.72 03/26/2015 CONNER SIM DO Ot 793.80 03/26/2015 MARCOS PHAN, EMILEE Garza Ot 272.4 03/26/2015 EMILEE RODRÍGUEZ MD Ot 414.01 03/26/2015 VALENZUELALEVI STRICKLAND DO D Ot 530.11 03/26/2015 VALENZUELALEVI STRICKLAND DO D Ot 535.50 03/26/2015 VALENZUELALEVI STRICKLAND DO D Ot 553.3 03/26/2015 VALENZUELALEVI STRICKLAND DO D Ot 558.9 03/26/2015 LEVI VALENZUELA DO D Ot V72.84 03/26/2015 CONNER SIM DO Ot 793.89 03/26/2015 MARY EARL, VICKIE Villasenor Ot 250.00 03/26/2015 MARY EARL, VICKIE Villasenor Ot 272.4 03/26/2015 MARY EARL, VICKIE Villasenor Ot 278.00 03/26/2015 MARY EARL, VICKIE Villasenor Ot 401.9 03/26/2015 MARY EARL, VICKIE Villasenor Ot 493.90 03/26/2015 MARY EARL, VICKIE Villasenor Ot 530.81 03/26/2015 MARY EARL, VICKIE Villasenor Ot 786.09 03/26/2015 Ot 610.0 04/07/2015 VICKIE HURLEY Ot E78.5 06/10/2015 AYALA MAC MD Ot E78.5 HYPERLIPIDEMIA, UNSPECIFIED 06/10/2015 AYALA MAC MD Ot E87.6 HYPOKALEMIA 06/10/2015 AYALA MAC MD Ot F32.9 MAJOR DEPRESSIVE DISORDER, SINGLE EPISOD 06/10/2015 AYALA MAC MD Ot F41.0 PANIC DISORDER WITHOUT AGORAPHOBIA 06/10/2015 AYALA MAC MD Ot F43.10 POST-TRAUMATIC STRESS DISORDER, UNSPECIF 06/10/2015 AYALA MAC MD Ot G89.29 OTHER CHRONIC PAIN 06/10/2015 AYALA MAC MD Ot I10 ESSENTIAL (PRIMARY) HYPERTENSION 06/10/2015 AYALA MAC MD Ot J45.909 UNSPECIFIED ASTHMA, UNCOMPLICATED 06/10/2015 AYALA MAC MD Ot K21.9 GASTRO-ESOPHAGEAL REFLUX DISEASE WITHOUT 06/10/2015 ESTEFANIA PHAN, AYALA Sahu Ot K58.9 IRRITABLE BOWEL SYNDROME WITHOUT DIARRHE 06/10/2015 ESTEFANIA PHAN, AYALA N Ot N17.9 ACUTE KIDNEY FAILURE, UNSPECIFIED 06/10/2015 ESTEFANIA PHAN, AYALA N Ot T42.6X1A POISONING BY OTH ANTIEPLPTC AND SED-HYPN 06/18/2015 HERBERT MCGOWAN Ot R10.2 06/26/2015 ESTEFANIA PHAN, AYALA N Ot E78.5 06/26/2015 ESTEFANIA PHAN, AYALA N Ot E87.6 06/26/2015 ESTEFANIA PHAN, AYALA N Ot F32.9 06/26/2015 ESTEFANIA PHAN, AYALA N Ot F41.0 06/26/2015 ESTEFANIA PHAN, AYALA N Ot F43.10 06/26/2015 ESTEFANIA PHAN, AYALA N Ot G89.29 06/26/2015 ESTEFANIA PHAN, AYALA N Ot I10 06/26/2015 ESTEFANIA PHAN, AYALA N Ot J45.909 06/26/2015 ESTEFANIA PHAN, AYALA N Ot K21.9 06/26/2015 AYALA MAC MD N Ot K58.9 06/26/2015 ESTEFANIA PHAN, AYALA N Ot N17.9 06/26/2015 ESTEFANIA PHAN, AYALA N Ot T42.6X1A 08/04/2015 CONNER SIM DO Ot Z12.31 02/04/2016 HERBERT MCGOWAN Ot G47.19 OTHER HYPERSOMNIA 02/04/2016 HERBERT MCGOWAN Ot G47.19 OTHER HYPERSOMNIA 02/09/2016 Ot V76.12 OTH SCREEN MAMMO-MALIGN NEOPLASM OF ARABELLA 02/09/2016 Ot 078.11 CONDYLOMA ACUMINATUM 02/09/2016 Ot V72.81 EXAM-PRE- OPERATIVE CARDIOVASCULAR 02/09/2016 Ot V74.8 SCREEN- BACTERIAL DIS NEC 02/09/2016 Ot 272.4 HYPERLIPIDEMIA NEC/NOS 02/09/2016 Ot 272.4 HYPERLIPIDEMIA NEC/NOS 02/09/2016 Ot 272.4 HYPERLIPIDEMIA NEC/NOS 02/09/2016 Ot 793.89 OTH (ABN) FINDINGS ON RADIOLOGICAL EXAMI 02/09/2016 Ot V76.12 OTH SCREEN MAMMO-MALIGN NEOPLASM OF [place] 02/09/2016 Ot 793.89 OTH (ABN) FINDINGS ON RADIOLOGICAL EXAMI 02/09/2016 Ot 272.4 HYPERLIPIDEMIA NEC/NOS 02/09/2016 CONNER SIM DO Ot 611.72 LUMP OR MASS IN BREAST 02/09/2016 CONNER SIM DO Ot 793.80 UNSPEC ABNORMAL MAMMOGRAM 02/09/2016 EMILEE RODRÍGUEZ MD Ot 272.4 HYPERLIPIDEMIA NEC/NOS 02/09/2016 EMILEE RODRÍGUEZ MD Ot 414.01 CORONARY ATHEROSCLEROSIS OF [place] CORON 02/09/2016 LEVI VALENZUELA DO Ot 530.11 REFLUX ESOPHAGITIS 02/09/2016 LEVI VALENZUELA DO Ot 535.50 UNSP GASTRITIS GASTRODUODENITIS W/O ME 02/09/2016 LEVI VALENZUELA DO Ot 553.3 DIAPHRAGMATIC HERNIA 02/09/2016 LEVI VALENZUELA DO Ot 558.9 NONINF GASTROENTERIT NEC 02/09/2016 LEVI VALENZUELA DO Ot V72.84 EXAM PRE-OPERATIVE NOS 02/09/2016 CONNER SIM DO Ot 793.89 OTH (ABN) FINDINGS ON RADIOLOGICAL EXAMI 02/09/2016 VICKIE HURLEY Ot 250.00 DIAB GENNA WO COMPL, TYPE II OR UNSPEC TY 02/09/2016 VICKIE HURLEY Ot 272.4 HYPERLIPIDEMIA NEC/NOS 02/09/2016 VICKIE HURLEY Ot 278.00 OBESITY, NOS 02/09/2016 VICKIE HURLEY Ot 401.9 HYPERTENSION NOS 02/09/2016 VICKIE HURLEY Ot 493.90 ASTHMA, UNSPECIFIED 02/09/2016 VICKIE HURLEY Ot 530.81 ESOPHAGEAL REFLUX 02/09/2016 VICKIE HURLEY Ot 786.09 RESPIRATORY ABNORM NEC 02/09/2016 Ot 610.0 SOLITARY CYST OF BREAST 02/09/2016 VICKIE HURLEY Ot E78.5 HYPERLIPIDEMIA, UNSPECIFIED 02/09/2016 JUAN M, HERBERT [employer] Ot R10.2 PELVIC AND PERINEAL PAIN 02/09/2016 SIMCONNER Gutierrez DO Ot Z12.31 ENCNTR SCREEN MAMMOGRAM FOR MALIGNANT NE 07/26/2016 SIMCONNER Gutierrez DO Ot N63 UNSPECIFIED LUMP IN BREAST 08/06/2016 SIMCONNER Gutierrez DO Ot N63 UNSPECIFIED LUMP IN BREAST 11/03/2016 EMILEE RODRÍGUEZ MD Ot E11.9 TYPE 2 DIABETES MELLITUS WITHOUT COMPLIC 11/03/2016 EMILEE RODRÍGUEZ MD Ot E78.4 OTHER HYPERLIPIDEMIA 11/03/2016 EMILEE RODRÍGUEZ MD Ot I10 ESSENTIAL (PRIMARY) HYPERTENSION 12/10/2016 VICKIE HURLEY Ot E11.9 TYPE 2 DIABETES MELLITUS WITHOUT COMPLIC 12/10/2016 VICKIE HURLEY Ot E78.4 OTHER HYPERLIPIDEMIA 12/10/2016 VICKIE HURLEY Ot I10 ESSENTIAL (PRIMARY) HYPERTENSION 12/10/2016 VICKIE HURLEY Ot R07.89 OTHER CHEST PAIN 05/19/2017 RANDAL FELIZ MD, Ot 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 07/12/2017 CONNER SIM DO Ot Z12.31 ENCNTR SCREEN MAMMOGRAM FOR MALIGNANT NE 07/28/2017 CONNER SIM DO Ot Z12.31 ENCNTR SCREEN MAMMOGRAM FOR MALIGNANT NE 11/01/2017 RANDAL FELIZ MD, Ot D89.89 OTH DISRD INVOLVING THE IMMUNE MECHANISM 11/01/2017 RANDAL FELIZ MD, Ot 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 11/06/2017 RANDAL FELIZ MD, Ot D89.89 OTH DISRD INVOLVING THE IMMUNE MECHANISM 11/06/2017 RANDAL FELIZ MD, Ot 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 11/10/2017 STEFANIE RICHARDSON MD Ot T50.905A ADVERSE EFFECT OF UNSP DRUG/MEDS/BIOL ZIMMERMAN 11/10/2017 STEFANIE RICHARDSON MD Ot T50.905A ADVERSE EFFECT OF UNSP DRUG/MEDS/BIOL ZIMMERMAN 11/17/2017 RANDAL FELIZ MD, Ot D89.89 OTH DISRD INVOLVING THE IMMUNE MECHANISM 11/17/2017 FELIZ MD, RANDAL M Ot 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 03/06/2018 CONNER SIM DO Ot 611.72 LUMP OR MASS IN BREAST 03/06/2018 CONNER SIM DO Ot 793.80 UNSPEC ABNORMAL MAMMOGRAM 03/06/2018 EMILEE RODRÍGUEZ MD Ot 272.4 HYPERLIPIDEMIA NEC/NOS 03/06/2018 EMILEE RODRÍGUEZ MD Ot 414.01 CORONARY ATHEROSCLEROSIS OF [place] CORON 03/06/2018 LEVI VALENZUELA DO Ot 530.11 REFLUX ESOPHAGITIS 03/06/2018 LEVI VALENZUELA DO Ot 535.50 UNSP GASTRITIS GASTRODUODENITIS W/O ME 03/06/2018 LEVI VALENZUELA DO Ot 553.3 DIAPHRAGMATIC HERNIA 03/06/2018 LEVI VALENZUELA DO Ot 558.9 NONINF GASTROENTERIT NEC 03/06/2018 LEVI VALENZUELA DO Ot V72.84 EXAM PRE-OPERATIVE NOS 03/06/2018 CONNER SIM DO Ot 793.89 OTH (ABN) FINDINGS ON RADIOLOGICAL EXAMI 03/06/2018 VICKIE HURLEY Ot 250.00 DIAB GENNA WO COMPL, TYPE II OR UNSPEC TY 03/06/2018 VICKIE HURLEY Ot 272.4 HYPERLIPIDEMIA NEC/NOS 03/06/2018 VICKIE HURLEY Ot 278.00 OBESITY, NOS 03/06/2018 VICKIE HURLEY Ot 401.9 HYPERTENSION NOS 03/06/2018 VICKIE HURLEY Ot 493.90 ASTHMA, UNSPECIFIED 03/06/2018 VICKIE HURLEY Ot 530.81 ESOPHAGEAL REFLUX 03/06/2018 VICKIE HURLEY Ot 786.09 RESPIRATORY ABNORM NEC 03/06/2018 Ot 610.0 SOLITARY CYST OF BREAST 03/06/2018 VICKIE HURLEY Ot E78.5 HYPERLIPIDEMIA, UNSPECIFIED 03/06/2018 HERBERT MCGOWAN Ot R10.2 PELVIC AND PERINEAL PAIN 03/06/2018 CONNER SIM DO Ot Z12.31 ENCNTR SCREEN MAMMOGRAM FOR MALIGNANT NE 03/06/2018 CONNER SIM DO Ot N63 UNSPECIFIED LUMP IN BREAST 03/06/2018 MARCOS PHAN, EMILEE Garza Ot E11.9 TYPE 2 DIABETES MELLITUS WITHOUT COMPLIC 03/06/2018 EMILEE RODRÍGUEZ MD Ot E78.4 OTHER HYPERLIPIDEMIA 03/06/2018 EMILEE RODRÍGUEZ MD Ot I10 ESSENTIAL (PRIMARY) HYPERTENSION 03/06/2018 VICKIE HURLEY Ot E11.9 TYPE 2 DIABETES MELLITUS WITHOUT COMPLIC 03/06/2018 VICKIE HURLEY Ot E78.4 OTHER HYPERLIPIDEMIA 03/06/2018 VICKIE HURLEY Ot I10 ESSENTIAL (PRIMARY) HYPERTENSION 03/06/2018 VICKIE HURLEY Ot R07.89 OTHER CHEST PAIN 03/06/2018 RANDAL FELIZ MD, Ot 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 03/06/2018 CONNER SIM DO Ot Z12.31 ENCNTR SCREEN MAMMOGRAM FOR MALIGNANT NE 03/06/2018 RANDAL FELIZ MD, Ot D89.89 OTH DISRD INVOLVING THE IMMUNE MECHANISM 03/06/2018 RANDAL FELIZ MD, Ot 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 03/09/2018 VICKIE HURLEY Ot E11.9 TYPE 2 DIABETES MELLITUS WITHOUT COMPLIC 03/09/2018 VICKIE HURLEY Ot I10 ESSENTIAL (PRIMARY) HYPERTENSION 03/09/2018 VICKIE HURLEY Ot K21.9 GASTRO-ESOPHAGEAL REFLUX DISEASE WITHOUT 03/09/2018 VICKIE HURLEY Ot M06.9 RHEUMATOID ARTHRITIS, UNSPECIFIED 03/10/2018 VICKIE HURLEY Ot E11.9 TYPE 2 DIABETES MELLITUS WITHOUT COMPLIC 03/10/2018 VICKIE HURLEY Ot I10 ESSENTIAL (PRIMARY) HYPERTENSION 03/10/2018 VICKIE HURLEY Ot K21.9 GASTRO-ESOPHAGEAL REFLUX DISEASE WITHOUT 03/10/2018 VICKIE HURLEY Ot M06.9 RHEUMATOID ARTHRITIS, UNSPECIFIED Procedures Code Description [place] [address] A1C (IN-HOUSE) 02/23/2012 49037 MICRO ALBUMIN-IN HOUSE 06/08/2012 53508 A1C (IN-HOUSE) 06/08/2012 08268 ROUTINE VENIPUNCTURE 11/10/2012 06088 UA LONG DIP 11/10/2012 62305 CMP 11/10/2012 [id number] GFR CALC (RESULT ONLY) 11/10/2012 34679 A1C (IN-HOUSE) 01/01/2013 46969 MICRO ALBUMIN-IN HOUSE 01/01/2013 32202 US BREAST ULTRASOUND, RIGHT 06/06/2013 77539 MAMMOGRAM DX, ELIJAH 06/06/2013 99836 URINE DRUG SCREEN (IN-HOUSE ) 06/06/2013 10055 [facility] 09/26/2013 90421 A1C (IN-HOUSE) 12/31/2013 65184 [facility] 01/03/2014 33485 [facility] 04/01/2014 35822 [facility] 07/10/2014 Results Test Result Range Comp. Metabolic Panel (14) - 02/24/16 11:02 Glucose, Serum 99 mg/dL 65-99 BUN 11 mg/dL 6-24 Creatinine, Serum 0.83 mg/dL 0.57-1.00 eGFR If NonAfricn Am 83 mL/min/1.73 >59 eGFR If Africn Am 96 mL/min/1.73 >59 BUN/Creatinine Ratio 13 9-23 Sodium, Serum 141 mmol/L 134-144 Potassium, Serum 3.5 mmol/L 3.5-5.2 Chloride, Serum 95 mmol/L 97-108 Carbon Dioxide, Total 29 mmol/L 18-29 Calcium, Serum 9.0 mg/dL 8.7-10.2 Protein, Total, Serum 6.8 g/dL 6.0-8.5 Albumin, Serum 4.2 g/dL 3.5-5.5 Globulin, Total 2.6 g/dL 1.5-4.5 A/G Ratio 1.6 1.1-2.5 Bilirubin, Total 0.3 mg/dL 0.0-1.2 Alkaline Phosphatase, S 81 IU/L 39-117 AST (SGOT) 27 IU/L 0-40 ALT (SGPT) 23 IU/L 0-32 Lipid Panel - 02/24/16 11:02 Cholesterol, Total 146 mg/dL 100-199 Triglycerides 119 mg/dL 0-149 HDL Cholesterol 46 mg/dL >39 VLDL Cholesterol Kenneth 24 mg/dL 5-40 LDL Cholesterol Calc 76 mg/dL 0-99 TSH - 02/24/16 11:02 TSH 4.960 uIU/mL 0.450-4.500 Insulin - 02/24/16 11:02 Insulin 19.8 uIU/mL 2.6-24.9 TSH - 04/21/16 13:44 TSH 4.930 uIU/mL 0.450-4.500 TSH - 06/17/16 11:51 TSH 3.110 uIU/mL 0.450-4.500 Serum Treponema pallidum antibody detection by immunofluorescence - 05/03/17 16 :10 Serum Treponema pallidum antibody assay by immunofluorescence (units/volume) Non Reactive Non Reactive Serum reagin antibody assay (units/volume) by RPR - 05/03/17 16:10 Serum reagin antibody assay (units/volume) by RPR Non Reactive NRG QUANTIFERON-TB GOLD - 05/03/17 16:10 QuantiFERON-TB test Negative Negative Mitogen stimulated gamma interferon [units/volume] corrected for background in blood 0.12 [iU]/mL 0.00-7.99 Mitogen stimulated gamma interferon [units/volume] in blood > [iU]/ mL 0.50-10.00 Qualitative QuantiFERON-TB gold in tube test <0.00 0.00- 0.34 TSH - 07/11/17 13:02 TSH 3.29 mIU/L NRG CBC - 09/29/17 13:54 WHITE BLOOD CELL COUNT 5.9 Thousand/uL 3.8-10.8 RED BLOOD CELL COUNT 4.05 Million/uL 3.80-5.10 HEMOGLOBIN 13.1 g/dL 11.7-15.5 HEMATOCRIT 38.5 % 35.0-45.0 MCV 95.1 fL 80.0-100.0 MCH 32.3 pg 27.0-33.0 MCHC 34.0 g/dL 32.0-36.0 RDW 13.9 % 11.0-15.0 PLATELET COUNT 164 Thousand/uL 140-400 MPV 10.0 fL 7.5-12.5 DIFFERENTIAL, MANUAL - 09/29/17 13:54 ABSOLUTE NEUTROPHILS 2891 cells/uL 7502-3102 ABSOLUTE MONOCYTES 118 cells/uL 200-950 ABSOLUTE EOSINOPHILS 118 cells/uL 15-500 ABSOLUTE BASOPHILS 118 cells/uL 0-200 NEUTROPHILS 49 % NRG LYMPHOCYTES 45 % NRG MONOCYTES 2 % NRG EOSINOPHILS 2 % NRG BASOPHILS 2 % NRG ABSOLUTE LYMPHOCYTES 2655 cells/uL 850-3900 PLATELET ESTIMATION ADEQUATE ADEQUATE CBC MORPHOLOGY NORMAL NOTE NRG CBC - 10/24/17 10:21 WHITE BLOOD CELL COUNT 1.8 Thousand/uL 3.8-10.8 RED BLOOD CELL COUNT 3.39 Million/uL 3.80-5.10 HEMOGLOBIN 10.9 g/dL 11.7-15.5 HEMATOCRIT 31.8 % 35.0-45.0 MCV 93.8 fL 80.0-100.0 MCH 32.2 pg 27.0-33.0 MCHC 34.3 g/dL 32.0-36.0 RDW 14.8 % 11.0-15.0 PLATELET COUNT 83 Thousand/uL 140-400 MPV 9.9 fL 7.5-12.5 ABSOLUTE NEUTROPHILS 815 cells/uL 7841-5662 ABSOLUTE LYMPHOCYTES 934 cells/uL 850-3900 ABSOLUTE MONOCYTES 40 cells/uL 200-950 ABSOLUTE EOSINOPHILS 11 cells/uL 15-500 ABSOLUTE BASOPHILS 0 cells/uL 0-200 NEUTROPHILS 45.3 % NRG LYMPHOCYTES 51.9 % NRG MONOCYTES 2.2 % NRG EOSINOPHILS 0.6 % NRG BASOPHILS 0.0 % NRG CBC - 11/03/17 15:45 WHITE BLOOD CELL COUNT 1.9 Thousand/uL 3.8-10.8 RED BLOOD CELL COUNT 2.73 Million/uL 3.80-5.10 HEMOGLOBIN 8.7 g/dL 11.7-15.5 HEMATOCRIT 25.5 % 35.0-45.0 MCV 93.4 fL 80.0-100.0 MCH 31.9 pg 27.0-33.0 MCHC 34.1 g/dL 32.0-36.0 RDW 14.8 % 11.0-15.0 PLATELET COUNT 82 Thousand/uL 140-400 MPV 10.5 fL 7.5-12.5 ABSOLUTE NEUTROPHILS 597 cells/uL 9050-1318 ABSOLUTE LYMPHOCYTES 1203 cells/uL 850-3900 ABSOLUTE MONOCYTES 101 cells/uL 200-950 ABSOLUTE EOSINOPHILS 0 cells/uL 15-500 ABSOLUTE BASOPHILS 0 cells/uL 0-200 NEUTROPHILS 31.4 % NRG LYMPHOCYTES 63.3 % NRG MONOCYTES 5.3 % NRG EOSINOPHILS 0.0 % NRG BASOPHILS 0.0 % NRG RED CELLS LEUKO REDUCED AS1 - 11/09/17 16:37 RED CELLS LEUKO REDUCED AS1 TRANSFUSED 11/10/17 1159 NRG Blood type T Indirect antibody screen panel - 11/09/17 16:37 ABO+Rh group OP NRG Transfusion band number [id number] NRG Blood group antibody screen NEGATIVE NRG CBC - 11/17/17 10:09 WHITE BLOOD CELL COUNT 6.3 Thousand/uL 3.8-10.8 RED BLOOD CELL COUNT 2.81 Million/uL 3.80-5.10 HEMOGLOBIN 9.5 g/dL 11.7-15.5 HEMATOCRIT 27.1 % 35.0-45.0 MCV 96.4 fL 80.0-100.0 MCH 33.8 pg 27.0-33.0 MCHC 35.1 g/dL 32.0-36.0 RDW 19.0 % 11.0-15.0 PLATELET COUNT 233 Thousand/uL 140-400 MPV 9.7 fL 7.5-12.5 ABSOLUTE NEUTROPHILS 3371 cells/uL 7977-5311 ABSOLUTE LYMPHOCYTES 2300 cells/uL 850-3900 ABSOLUTE MONOCYTES 599 cells/uL 200-950 ABSOLUTE EOSINOPHILS 13 cells/uL 15-500 ABSOLUTE BASOPHILS 19 cells/uL 0-200 NEUTROPHILS 53.5 % NRG LYMPHOCYTES 36.5 % NRG MONOCYTES 9.5 % NRG EOSINOPHILS 0.2 % NRG BASOPHILS 0.3 % NRG CBC MORPHOLOGY - 12/07/17 14:30 CBC MORPHOLOGY NORMAL CBC - 01/12/18 13:01 WHITE BLOOD CELL COUNT 8.4 Thousand/uL 3.8-10.8 RED BLOOD CELL COUNT 2.93 Million/uL 3.80-5.10 HEMOGLOBIN 11.1 g/dL 11.7-15.5 HEMATOCRIT 33.1 % 35.0-45.0 MCV 113.0 fL 80.0-100.0 MCH 37.9 pg 27.0-33.0 MCHC 33.5 g/dL 32.0-36.0 RDW 15.7 % 11.0-15.0 PLATELET COUNT 246 Thousand/uL 140-400 MPV 9.3 fL 7.5-12.5 ABSOLUTE NEUTROPHILS 6628 cells/uL 4216-3780 ABSOLUTE LYMPHOCYTES 1403 cells/uL 850-3900 ABSOLUTE MONOCYTES 328 cells/uL 200-950 ABSOLUTE EOSINOPHILS 8 cells/uL 15-500 ABSOLUTE BASOPHILS 34 cells/uL 0-200 NEUTROPHILS 78.9 % NRG LYMPHOCYTES 16.7 % NRG MONOCYTES 3.9 % NRG EOSINOPHILS 0.1 % NRG BASOPHILS 0.4 % NRG Encounters ACCT No. Visit Date/Time Discharge Status Pt. Type Provider Facility Loc./Unit Complaint [id number] 08/13/2014 13:27:00 08/13/2014 23:59:59 CLS Outpatient ANALIA CHENLINDA [id number] 07/10/2014 13:21:00 07/10/2014 23:59:59 CLS Outpatient HERBERT MCGOWAN APRN [id number] 03/27/2014 14:49:00 03/27/2014 23:59:59 CLS Outpatient HERBERT MCGOWAN APRN [id number] 02/19/2014 13:12:00 02/19/2014 23:59:59 CLS Outpatient LISA PEREZ DDS [id number] 12/31/2013 10:39:00 12/31/2013 23:59:59 CLS Outpatient HERBERT MCGOWAN APRN [id number] 12/31/2013 10:39:00 12/31/2013 23:59:59 CLS Outpatient HERBERT MCGOWAN APRN S [id number] 09/24/2013 12:12:00 09/24/2013 23:59:59 CLS Outpatient HERBERT MCGOWAN APRN S [id number] 08/16/2013 12:45:00 08/16/2013 23:59:59 CLS Outpatient ANALIA CHENLINDA [id number] 07/30/2013 00:00:00 07/30/2013 23:59:59 CLS Outpatient CHRIS LISA CHEN [id number] 06/06/2013 08:45:00 06/06/2013 23:59:59 CLS Outpatient HERBERT MCGOWAN APRN S [id number] 06/06/2013 08:45:00 06/06/2013 23:59:59 CLS Outpatient HERBERT MCGOWAN APRN S [id number] 04/30/2013 09:16:00 04/30/2013 23:59:59 CLS Outpatient AYALA MAC MD [id number] 04/14/2013 00:00:00 04/14/2013 23:59:59 CLS Outpatient AYALA MAC MD [id number] 03/28/2013 11:08:00 03/28/2013 23:59:59 CLS Outpatient JUAN M VÁSQUEZNHERBERT [id number] 01/01/2013 14:42:00 01/01/2013 23:59:59 CLS Outpatient JERMAIN KATHLEEN MD [id number] 06/13/2012 10:03:00 06/13/2012 23:59:59 CLS Outpatient KIM CANDIDEEPKIA Fonseca [id number] 06/08/2012 11:09:00 06/08/2012 23:59:59 CLS Outpatient JUAN M VÁSQUEZNHERBERT Marian [id number] 04/18/2012 11:43:00 04/18/2012 23:59:59 CLS Outpatient KIM CHENDEEPIKA [id number] 02/23/2012 15:17:00 02/23/2012 23:59:59 CLS Outpatient JUAN M VÁSQUEZNHERBERT S [id number] 01/12/2013 10:45:00 Document Registration [id number] 01/01/2013 14:42:00 Document Registration [id number] 11/22/2012 16:22:00 Document Registration [id number] 11/10/2012 10:49:00 Document Registration [id number] 09/28/2012 10:15:00 Document Registration [id number] 09/28/2012 10:15:00 Document Registration [id number] 02/25/2016 18:06:00 Document Registration [id number] 12/20/2017 10:00:00 12/20/2017 23:59:59 CLS Outpatient JUAN M VÁSQUEZNHERBERT [facility] [id number] 01/12/2018 12:40:00 Document Registration [id number] 12/07/2017 13:40:00 Document Registration [id number] 11/17/2017 10:00:00 Document Registration [id number] 11/03/2017 15:40:00 Document Registration [id number] 10/24/2017 08:40:00 Document Registration [id number] 09/29/2017 13:40:00 Document Registration [id number] 07/11/2017 11:00:00 Document Registration [id number] 06/18/2016 08:06:00 Document Registration [id number] 04/22/2016 10:06:00 Document Registration [id number] 03/08/2018 06:41:00 03/08/2018 23:59:59 CLS Outpatient VICKIE HURLEY [facility] CARD HTN [id number] 03/07/2018 08:39:00 03/07/2018 23:59:59 CLS Outpatient VICKIE HURLEY [facility] CARD HTN [id number] 11/10/2017 07:35:00 11/10/2017 14:40:00 DIS Outpatient STEFANIE RICHARDSON MD [facility] SDC TYPE AND CROSS,BLOOD TRANSFUSION [id number] 10/31/2017 11:26:00 10/31/2017 23:59:59 CLS Outpatient RANDAL FELIZ MD [facility] RAD CENTRAL CHOROIDAL ATROPHY [id number] 07/11/2017 09:29:00 07/11/2017 23:59:59 CLS Outpatient CONNER SIM DO [facility] RAD SCREENING [id number] 05/03/2017 15:40:00 05/03/2017 23:59:59 CLS Outpatient RANDAL FELIZ MD [facility] RAD H31.22 [id number] 11/23/2016 11:31:00 11/23/2016 23:59:59 CLS Outpatient VICKIE HURLEY [facility] LAB E87.6 R07.89 I10 E78.4 [id number] 10/21/2016 09:31:00 10/21/2016 23:59:59 CLS Outpatient EMILEE RODRÍGUEZ MD [facility] LAB E11.9 I10 E78.4 [id number] 07/23/2016 09:10:00 07/23/2016 23:59:59 CLS Outpatient CONNER SIM DO [facility] RAD BREAST NODULE [id number] 02/03/2016 19:33:00 02/04/2016 06:48:00 DIS Outpatient HERBERT MCGOWAN [facility] SLEEP EXCESSIVE DAYTIME SLEEPINESS, MOOD DISORDER [id number] 07/18/2015 10:56:00 07/18/2015 23:59:59 CLS Outpatient CONNER SIM DO [facility] RAD SCREENING [id number] 06/05/2015 13:25:00 06/10/2015 17:15:00 DIS Inpatient AYALA MAC MD [facility] 4TH HYPOKALEMIA AMS [id number] 06/03/2015 14:09:00 06/03/2015 23:59:59 CLS Outpatient HERBERT MCGOWAN [facility] RAD PELVIC PAIN [id number] 03/26/2015 09:33:00 03/26/2015 23:59:59 CLS Outpatient VICKIE HURLEY [facility] LAB HYPERLIPIDEMIA [id number] 03/29/2014 09:51:00 03/29/2014 23:59:59 CLS Outpatient VICKIE HURLEY [facility] LAB GERD,DIABETES ,ASTHMA,DYSPNEA,HTN,HYPERLIPIDEMIA,OB [id number] 06/06/2013 12:13:00 06/06/2013 23:59:59 CLS Outpatient CONNER SIM DO [facility] RAD SIX MONTH F/U [id number] 05/29/2013 12:24:00 05/29/2013 23:59:59 CLS Outpatient LEVI VALENZUELA DO [facility] SDC ANEMIA/BLOOD IN STOOL [id number] 05/23/2013 07:12:00 05/23/2013 23:59:59 CLS Outpatient LEVI VALENZUELA DO [facility] PREOP NAUSEA/BLOOD IN STOOL [id number] 03/17/2013 10:58:00 03/18/2013 13:00:00 DIS Inpatient EMILEE RODRÍGUEZ MD [facility] CSD CHEST PAIN [id number] 02/09/2013 10:21:00 02/09/2013 23:59:59 CLS Outpatient EMILEE RODRÍGUEZ MD [facility] LAB HYPERLIPADEMIA [id number] 11/03/2012 07:54:00 11/03/2012 23:59:59 CLS Outpatient CONNER SIM DO [facility] RAD ABN MAMMO, RT BREAST MASS [id number] 07/10/2014 09:51:00 Document Registration [id number] 07/31/2012 08:48:00 Document Registration [id number] 06/21/2012 12:15:00 Document Registration [id number] 06/05/2012 09:07:00 Document Registration [id number] 05/01/2012 13:13:00 Document Registration [id number] 12/19/2011 21:49:00 Document Registration [id number] 11/05/2011 08:25:00 Document Registration [id number] 10/13/2011 15:30:00 Document Registration [id number] 10/12/2011 11:38:00 Document Registration [id number] 06/01/2011 06:00:00 Document Registration [id number] 05/24/2011 13:39:00 Document Registration [id number] 04/30/2011 09:56:00 Document Registration [id number] 01/14/2011 09:51:00 Document Registration [id number] 06/23/2010 11:00:00 Document Registration [id number] 06/23/2010 10:54:00 Document Registration [id number] 03/11/2010 14:38:00 Document Registration [id number] 01/02/2010 10:08:00 Document Registration [id number] 09/01/2009 12:48:00 Document Registration [id number] 03/11/2009 09:39:00 Document Registration
[2018-03-15] MEDS ORDERED: ESTR10TA VG (11:44)
[2018-03-15] MEDS ORDERED: SUMA50TA2 PO (11:46)
[2018-03-15] MEDS ORDERED: FLU QUADRIvalent (5+ YOA) 2018-2019 (AFLURIA) 0.5 ML IM ONE (12:00)
--- NOTE | 2018-03-15 13:16 | Cardiac Procedure Note-CS/ASA ---
Pre-Procedure Note Pre-Op Procedure Note H&P Reviewed The H&P was reviewed, patient examined and no changes noted. Date H&P Reviewed: Mar 15, 2018 Time H&P Reviewed: 13:15 Conscious Sedation Pre-Proced Time 13:15 ASA Score 3 For ASA 3 and 4: Consider anesthesia and medical clearance. Also, for patients with a history of failed moderate sedation consider anesthesia. Airway Lungs Heart ASA score ASA 1: a normal healthy patient ASA 2: a patient with a mild systemic disease (mid diabetes, controlled hypertension, obesity x ASA 3: a patient with a severe systemic disease that limits activity (angina , COPD, prior Myocardial infarction) ASA 4: a patient with an incapacitating disease that is a constant threat to life (CHF, renal failure) ASA 5: a moribund patient not expected to survive 24 hrs. (ruptured aneurysm) ASA 6: a declared brain patient whose organs are being harvested. For emergent operations, add the letter E after the classification Mallampati Classification Grade 3 Sedation Plan Analgesia, Amnesia, Plan communicated to team members, Discussed options with patient/fam, Discussed risks with patient/fam The patient is an appropriate candidate to undergo the planned procedure, sedation, and anesthesia. The patient immediately re-assessed prior to indication. EMILEE RODRÍGUEZ MD Mar 15, 2018 13:16
[2018-03-15] MEDS ORDERED: MIDAZOLAM 5 MG/5 ML (VERSED) VIAL ONE (13:20)
[2018-03-15] MEDS ORDERED: fentaNYL INJECTION 100 MCG/2 ML AMP ONE ×2 (13:20→13:57)
[2018-03-15] MEDS ORDERED: VERAPAMIL 5 MG/2 ML (CALAN) VIAL IV ONE (13:21)
[2018-03-15] MEDS ORDERED: NITRO DRIP 25000 MCG/D5W 250 ML IV ONE (13:21)
[2018-03-15] MEDS ORDERED: HEParin 1000 UNIT/ML (10ML VIAL) FOR BOLUS ONE (13:21)
[2018-03-15] MEDS ORDERED: methylPREDNISolone 125 MG (Solu-MEDROL) VIAL ONE (13:30)
[2018-03-15] MEDS ORDERED: diphenhydrAMINE 50 MG/ML INJ (BENADRYL) ONE (13:30)
[2018-03-15] MEDS ORDERED: MIDAZOLAM 2 MG/2 ML (VERSED) VIAL ONE ×2 (13:58→14:04)
--- NOTE | 2018-03-15 14:25 | Cardiac Cath Report ---
Cardiac Cath Report Physician (s)/Functional Analyst (s) Physician EMILEE RODRÍGUEZ MD Pre-Procedure Diagnosis Pre-Procedure Diagnosis: Coronary artery disease Post-Procedure Note Procedure Start Date: Mar 15, 2018 Name of Procedure: Left heart catheterization Findings/Procedure Note PROCEDURE NOTE: After explaining the procedure to the patient, all pros and cons were explained , all questions were answered. The patient signed the consent and then she was placed on the cardiac catheterization laboratory. Groin was prepped SL fashion local anesthesia was used. I was unable to access the right radial artery, Sheath placed in the right femoral artery. Tracy right and left catheter were used to access the coronary system. Pigtail was used to access the left ventricular cavity. Left ventriculogram was not done, pressure was measured At the end of the procedure the sheath was removed. Closure device FINDINGS: Hemodynamics LV 160/18, end-diastolic pressure of 18 Aorta 167/92 mean of 123 ANATOMY: Left Main is free of obstructive disease Left Anterior Descending is tortuous with mild disease nonobstructive disease Left Circumflex is free of obstructive disease Right Coronory Artery has mild disease nonobstructive disease CONCLUSION: 1. Mild coronary artery disease nonobstructive disease 2. Mildly elevated left ventricular end-diastolic pressure DISCUSSION AND RECOMMENDATION: Medical therapy is recommended Anesthesia Type: Conscious Sedation Estimated blood loss (mL): 25 ml Contrast Amount: 25 ml Total Radiation Dose: 314 mGy Post-Procedure Diagnosis Post-operative diagnosis: Chest pain Coronary artery disease Hypertension Hyperlipidemia EMILEE RODRÍGUEZ MD Mar 15, 2018 2:25 pm
[2018-03-15] MEDS ORDERED: PATIENT MAY USE OWN MEDS, ALL PO SCH (14:30)
[2018-03-15 14:45] VITALS: BP 134/84
[2018-03-15 15:00] VITALS: BP 133/82
[2018-03-15 15:15] VITALS: BP 143/83
[2018-03-15 15:30] VITALS: BP 127/80
[2018-03-15 15:45] VITALS: BP 128/79
--- NOTE | 2018-03-15 18:21 | Discharge Inst-Post CATH ---
Discharge Inst-CATH Post Cardiac Cath D/C Inst Follow Up/Plan Appointment with Dr Feng's office in 2-4 weeks CARDIAC CATH DISCHARGE INSTRUCTIONS *Hold Metformin for 48 hours post heart cath. ACTIVITY * Go Home directly and rest. * Limit activity of the leg (or wrist if it was used) for 7 days including aerobics, swimming, jogging, bicycling, etc. * Restrict stair-climbing for 7 days if possible, if not, climb up with your non -cath leg, then bring together on the same step. * Avoid lifting, pushing, pulling or excessive movement of the affected extremity for 7 days. * Customary sexual activity may be resumed after 2 days-use caution not to use a position that strains or causes pain to the affected extremity. * No driving for 24 hours. * NO SMOKING. * Avoid straining for bowel movements for 7 days. * Gentle walking on level ground is allowed. * Returning to work will depend on the type of procedure and the results. Your doctor will discuss this with you. CALL YOUR DOCTOR FOR ANY OF THE FOLLOWING: *If bleeding from the puncture site occurs- Apply gentle pressure to site with clean cloth and call your doctor or EMS. * If a knot or lump forms under the skin, increases in size, or causes pain. * If bruising appears to be worsening or moving further down your leg instead of disappearing. * Temperature above 101 F. CARE OF YOUR GROIN INCISION; * Bruising or purple discoloration of the skin near the puncture site is common. * You may shower only, no bathtub bathing for 5 days. Be careful to avoid slipping as your leg may feel stiff. * If a closure device was used on your femoral artery, please see the attached guide regarding care of the device and your leg. * Leave the dressing on, until removed by office staff. CARE OF YOUR WRIST INCISION; * Bruising or purple discoloration of the skin near the puncture site is common. * You may shower. * DO NOT submerge wrist. * Leave dressing on, until removed by office staff.. EMILEE FENG MD Mar 15, 2018 18:21
== END 2018-03-15 19:28 | disposition home or self-care (01) ==
LOC: CATH 10:32 → ICU 14:36 → CATH 19:28
PROVIDERS: ATTEND Internal Medicine Cardiovascular Disease
DX: R07.9 Chest pain, unspecified (principal); I25.10 Atherosclerotic heart disease of native coronary artery without angina pectoris; I10 Essential (primary) hypertension; E78.5 Hyperlipidemia, unspecified; E11.9 Type 2 diabetes mellitus without complications; F31.9 Bipolar disorder, unspecified; K21.9 Gastro-esophageal reflux disease without esophagitis; J45.909 Unspecified asthma, uncomplicated; Z79.899 Other long term (current) drug therapy; E66.8 Other obesity; M25.511 Pain in right shoulder; M25.512 Pain in left shoulder; M54.2 Cervicalgia; Z68.41 Body mass index [BMI] 40.0-44.9, adult
CPT/HCPCS: 36415; 71045; 80053; 80061; 85027; 85610; 85730; 87081; 93458

== ENCOUNTER → 2018-08-15 | Outpatient (CLI) | payer MEDICAID ==
[~2018-08-15] MED LIST changes: +ESTR1TAB24 PO; +GABA-488 PO; +LAMO200T2 PO; +LEVO25TA5 PO; +LOSA50TA63 PO; -LOSA50TA7 PO; +NALT1TAB PO; +SUMA50TA2 PO
--- NOTE | 2018-08-15 16:42 | Diagnostic Imaging Report ---
INDICATION: Routine screening. COMPARISON: 07/11/2017 and 07/23/2016. TECHNIQUE: 2D and 3D bilateral screening mammography was performed with CAD. FINDINGS: Scattered fibroglandular densities are identified bilaterally. There are benign calcifications in both breasts. Benign nodular densities in both breasts also are noted and appear stable. No new mass or malignant appearing microcalcifications are seen. The axillae are unremarkable. IMPRESSION: No mammographic features suspicious for malignancy are identified. ACR BI-RADS Category 2: Benign findings. Result letter will be mailed to the patient. Note: At least 10% of breast cancer is not imaged by mammography. Dictated by: Dictated on workstation # [id number]
== END ==
LOC: RAD 10:33
PROVIDERS: ATTEND Obstetrics & Gynecology
DX: Z12.31 Encounter for screening mammogram for malignant neoplasm of breast (principal)
CPT/HCPCS: 77067

== ENCOUNTER 2019-01-02 06:24 | Outpatient (CLI) | payer MEDICAID ==
[~2019-01-02] VITALS: Ht 154.9 cm; Wt 98.9 kg
[~2019-01-02 06:24] MED LIST changes: -DULO30CA48 PO; +DULO30CA49 PO; -DULO60CA58 PO; +DULO60CA59 PO; -TIZA2TAB3 PO; +TIZA2TAB4 PO
== END 2019-01-02 12:36 | disposition home or self-care (01) ==
LOC: PREOP 06:24
PROVIDERS: ATTEND Surgery
DX: Z01.818 Encounter for other preprocedural examination (principal)

== ENCOUNTER 2019-01-09 07:36 | Day surgery (SDC) | payer MEDICAID ==
[~2019-01-09] VITALS: Ht 154.9 cm; Wt 98.9 kg
[2019-01-09] MEDS ORDERED: LACTATED RINGERS 1,000 ML IV ONE (07:58)
[2019-01-09 08:00] VITALS: BP 134/74
[2019-01-09] MEDS ORDERED: LACTATED RINGERS 1,000 ML IV PRN (08:00)
[2019-01-09] MEDS ORDERED: HURRICAINE EXT TUBE (BENZOCAINE) XX PRN (08:00)
--- NOTE | 2019-01-09 09:08 | Progress Note-Pre Operative ---
Pre-Operative Progress Note H&P Reviewed The H&P was reviewed, patient examined and no changes noted. Date Seen by Provider: Jan 09, 2019 Time Seen by Provider: 09:08 Date H&P Reviewed: Jan 09, 2019 Time H&P Reviewed: 09:08 Pre-Operative Diagnosis: melana gerd ibs LEVI VALENZUELA DO Jan 09, 2019 09:08
[2019-01-09] MEDS ORDERED: PROPOFOL INJECTION 50 ML IV ONE ×2 (09:35→09:55)
[2019-01-09 10:20] VITALS: BP 98/65
[2019-01-09] MEDS ORDERED: HURRICAINE EXT TUBE (BENZOCAINE) ONE (10:20)
--- NOTE | 2019-01-09 10:22 | Progress Note-Post Operative ---
Post-Operative Progess Note Surgeon (s)/Sharepoint Solutions Developer (s) Surgeon LEVI VALENZUELA DO Sharepoint Solutions Developer: n/a Pre-Operative Diagnosis melana gerd ibs Post-Operative Diagnosis slight gastritis, normal colon Procedure & Operative Findings Date of Procedure 01/09/19 Procedure Performed/Findings EGD with biopsy antrum and GE junction, colonoscopy Anesthesia Type per custom feed mill operator Estimated Blood Loss Estimated blood loss (mL): none Specimens/Packing Specimens Removed antrum, GE junction LEVI VALENZUELA DO Jan 09, 2019 10:22
[2019-01-09] MEDS ORDERED: OMEP20TA7 PO (10:24)
[2019-01-09 10:25] VITALS: BP_SYST 103; BP_DIAS 60; BP_DIAS 69
--- NOTE | 2019-01-09 10:26 | Discharge Inst-Simple/Standard ---
Discharge Inst-Standard Discharge Medications New, Converted or Re-Newed RX: Other (over the counter) Patient Instructions/Follow Up Plan of Care/Instructions/FU: 2 weeks alonso Activity as Tolerated: Yes Discharge Diet: Regular Diet LEVI VALENZUELA DO Jan 09, 2019 10:26
[2019-01-09 10:55] VITALS: BP 112/86
[2019-01-09 11:10] VITALS: BP 112/86
--- NOTE | 2019-01-09 13:55 | OPERATIVE REPORT ---
DATE OF SERVICE: 01/09/2019 PREOPERATIVE DIAGNOSES: Melena, gastroesophageal reflux disease, irritable bowel syndrome. POSTOPERATIVE DIAGNOSES: Slight gastritis, normal colon. PROCEDURE: EGD with biopsy of the antrum and GE junction. Colonoscopy. SURGEON: Levi Pretty DO ANESTHESIA: Per BLOCK SAW OPERATOR. ESTIMATED BLOOD LOSS: None. COMPLICATIONS: None. INDICATIONS: The patient is a 53-year-old female with known GERD and IBS. She understands risks and benefits of procedure and wished to proceed with procedure. Consent was signed in the chart. DESCRIPTION OF PROCEDURE: The patient was taken to the endoscopy suite, placed in the left lateral recumbent position. Timeout was performed. Scope was inserted in mouth, down the esophagus, stomach and into the duodenum without difficulty. There were no polyps, masses or ulcerations within the duodenum. Scope was slowly retracted back into the stomach where it was further insufflated. Slight gastritis appearance. Biopsy of the antrum was obtained. Scope was retroflexed noting no other pathology. Scope was returned to its normal position, slowly withdrawn to the distal esophagus. There were no polyps, masses or ulcerations present and biopsy of the GE junction was obtained. Scope was then slowly retracted back until completely removed, noting no other pathology. Digital rectal exam was performed. There were no palpable polyps, masses or ulcerations. Scope was inserted into the rectum and advanced all the way to the cecum with minimal difficulty. Prep was adequate. Scope was then slowly retracted back. There were no polyps, masses or ulcerations within the cecum, ascending, transverse, descending and sigmoid colon. Once in the rectum, scope was retroflexed noting no other pathology. Scope was returned to its normal position, slowly withdrawn until completely removed. The patient tolerated procedure well without any complications. She was taken to recovery room in stable condition. RECOMMENDATIONS: The patient was recommended omeprazole 20 mg daily [id number]. She will follow up on biopsies in 2 weeks to discuss pathology results. The patient will need repeat colonoscopy in 10 years unless family history of colon cancer, which would then be 5 years or personal history of colon polyps, which would then be 5 years. Any issues before that will be seen at that time. Job ID: [id number] DocumentID: [id number] Dictated Date: 01/09/2019 10:30:07 Digital Production Manager Date: 01/09/2019 13:54:39 Dictated By: LEVI PRETTY DO [facility]
--- NOTE | 2019-01-09 15:30 | Anesthesia-General Post-Op ---
MAC Patient Condition Mental Status/LOC: Same as Preop Cardiovascular: Satisfactory Nausea/Vomiting: Absent Respiratory: Satisfactory Pain: Controlled Complications: Absent Post Op Complications Complications None Follow Up Care/Instructions Patient Instructions None needed. Anesthesiology Discharge Order Discharge Order Patient was seen after the procedure and she was doing well, no complaints, stable vital signs, no apparent adverse anesthesia problems. RIAN BOGGS DO Jan 09, 2019 15:30
== END 2019-01-09 11:45 | disposition home or self-care (01) ==
LOC: ENDO 07:36
PROVIDERS: ATTEND Surgery
DX: K29.70 Gastritis, unspecified, without bleeding (principal); K21.9 Gastro-esophageal reflux disease without esophagitis; K92.1 Melena; K58.9 Irritable bowel syndrome, unspecified; I25.119 Atherosclerotic heart disease of native coronary artery with unspecified angina pectoris; I10 Essential (primary) hypertension; J45.909 Unspecified asthma, uncomplicated; G43.911 Migraine, unspecified, intractable, with status migrainosus; F31.9 Bipolar disorder, unspecified; E11.9 Type 2 diabetes mellitus without complications; E78.5 Hyperlipidemia, unspecified; E07.9 Disorder of thyroid, unspecified; M19.90 Unspecified osteoarthritis, unspecified site; H31.8 Other specified disorders of choroid; Z88.6 Allergy status to analgesic agent; Z91.041 Radiographic dye allergy status; Z91.013 Allergy to seafood; Z99.89 Dependence on other enabling machines and devices; Z88.2 Allergy status to sulfonamides; Z91.018 Allergy to other foods; Z88.8 Allergy status to other drugs, medicaments and biological substances; Z91.048 Other nonmedicinal substance allergy status; Z79.899 Other long term (current) drug therapy; Z85.820 Personal history of malignant melanoma of skin
CPT/HCPCS: 88305

== ENCOUNTER 2019-06-23 15:26 | Emergency (ER) | payer MEDICAID ==
[~2019-06-23] VITALS: Ht 154 cm; Wt 96.0 kg
[~2019-06-23 15:26] MED LIST changes: -LAMO200T2 PO; +LAMO200T5 PO; +OMEP20TA7 PO
[2019-06-23] MEDS ORDERED: IBUPROFEN 800 MG (MOTRIN) TAB PO STA (15:53)
--- NOTE | 2019-06-23 16:48 | ED Lower Extremity ---
General Chief Complaint: Lower Extremity Stated Complaint: R LEG PAIN Nursing Triage Note: STATES SHE FELL OFF HER PORCH HURTING HER RIGHT LEG. Nursing Sepsis Screen: No Definite Risk History of Present Illness Date Seen by Provider: Jun 23, 2019 Time Seen by Provider: 15:35 Initial Comments 53-year-old female reports she was stepping up on to the porch of her daughter's home when she felt and heard a pop in the back of her right leg. Since then she's been having pain and difficulty bearing weight on it. She denies any previous history of injuries to her right lower extremity. She has vision problems, chronically and is supposed to use a cane or walker. However the patient does not like to use these. No pain medication prior to arrival. Onset: just prior to arrival Severity: mild Pain/Injury Location: right thigh Method of Injury: twisted Allergies and Home Medications Allergies Coded Allergies: iopamidol (Unverified Allergy, Intermediate, CHEST PAIN, 01/02/19) aspirin (Unverified Allergy, Mild, ABDOMINAL PAIN, 01/02/19) codeine (Unverified Allergy, Mild, SEDATION, 01/02/19) strawberry (Unverified Allergy, Unknown, 01/02/19) tomato (Unverified Allergy, Unknown, 01/02/19) FROM UNCODED ALLERGIES Uncoded Allergies: IVP DYE (Allergy, Unknown, 06/05/15) TAPE (Allergy, Unknown, 04/13/07) Home Medications Albuterol Sulfate 2.5 Mg/3 Ml Vial.neb, 2.5 MG IH Q4H PRN for COUGH, (Reported) Albuterol/Ipratropium 4 Gm Aero, 2 PUFF IH QID PRN for SHORTNESS OF BREATH, (Reported) Atorvastatin Calcium 20 Mg Tablet, 20 MG PO DAILY, (Reported) Dicyclomine HCl 20 Mg Tablet, 20 MG PO QID PRN for MUSCLE CRAMPS, (Reported) Duloxetine HCl 60 Mg Capsule.dr, 120 MG PO DAILY, (Reported) Estradiol 1 Mg Tablet, 1 MG PO DAILY, (Reported) Estradiol 10 Mcg Tablet, 10 MCG VG tuesday and , (Reported) Gabapentin 300 Mg Capsule, 300 MG PO TID, (Reported) Lamotrigine 200 Mg Tablet, 200 MG PO DAILY, (Reported) Lipase/Protease/Amylase 1 Each Capsule.dr, 12,000 UNITS PO TID, (Reported) TAKES BEFORE MEALS Loratadine 10 Mg Tablet, 10 MG PO BID, (Reported) Losartan/Hydrochlorothiazide 1 Each Tablet, 1 EACH PO DAILY, (Reported) Naltrexone HCl/Bupropion HCl 1 Each Tablet.er, 1 EACH PO DAILY, (Reported) Omeprazole 20 Mg Tablet.dr, 20 MG PO DAILY Prescribed by: LEVI VALENZUELA on 01/09/19 1024 Promethazine HCl 25 Mg Tablet, 25 MG PO Q6H PRN for NAUSEA/VOMITING, (Reported) Sucralfate 1 Gm Tablet, 1 GM PO QID, (Reported) Sumatriptan Succinate 50 Mg Tablet, 50 MG PO PRN PRN for MIGRAINE, (Reported) Tizanidine HCl 2 Mg Tablet, 2 MG PO BID PRN for MUSCLE SPASMS, (Reported) Patient Home Medication List Home Medication List Reviewed: Yes Review of Systems Constitutional: no symptoms reported, see HPI Musculoskeletal: see HPI, muscle pain (right hamstring) All Other Systems Reviewed Negative Unless Noted: Yes Past Uhaageg-Xyvrxd-Poshuz Hx Past Med/Social Hx: Reviewed Nursing Past Med/Soc Hx Patient Social History Alcohol Use: Denies Use Recreational Drug Use: No Smoking Status: Never a Smoker 2nd Hand Smoke Exposure: No Recent Foreign Travel: No Contact w/Someone Who Travel: No Recent Infectious Disease Expo: No Recent Hopitalizations: No Seasonal Allergies Seasonal Allergies: Yes Past Medical History Surgeries: Yes (carpal tunnel, t&a, d&c and 1 ) Adenoidectomy, Section, Hysterectomy, Tonsillectomy Respiratory: Yes (does breathing treaments, wears 2l o2 at night) Asthma Currently Using CPAP: No Currently Using BIPAP: No Cardiac: Yes Angina, Hypertension Neurological: Yes Headaches /Migraines Reproductive Disorders: Yes (ENDOMETRIOSIS) 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 Sexually Transmitted Disease: Yes (GENITAL WARTS) HIV/AIDS: No Genitourinary: No Gastrointestinal: Yes Gastroesophageal Reflux, Diverticulosis, Irritable Bowel Musculoskeletal: Yes (DEGENERATIVE JOINT DISEASE/RHEUMATOID ARTHRITIS) Degenerate Disk Disease, Osteoporosis, Arthritis, Back Injury, Chronic Back Pain Endocrine: No HEENT: No Loss of Vision: Denies Hearing Impairment: Denies Cancer: No Psychosocial: Yes (PTSD) PTSD, Bipolar Integumentary: Yes Eczema Blood Disorders: No Adverse Reaction/Blood Tranf: No Family Medical History Abdominal aortic aneurysm 03 FATHER Family history: Arthritis 03 FATHER Family history: Asthma 03 FATHER Family history: Cardiovascular disease 03 FATHER 03 MOTHER Family history: Diabetes mellitus 03 FATHER 03 MOTHER Family history: Hypertension 03 FATHER 03 MOTHER Family history: Osteoporosis 03 FATHER History of - respiratory disease 03 FATHER No Pertinent Family Hx Physical Exam Vital Signs Vital Signs - First Documented 06/23/19 15:30 Temp 36.9 Pulse 95 Resp 16 B/P (MAP) 102/67 (79) Pulse Ox 93 O2 Delivery Room Air Capillary Refill : Less Than 3 Seconds Height, Weight, BMI Height: 5'1.00" Weight: 218lbs. 0.0oz. 98.393529va; 40.00 BMI Method:Stated General Appearance: WD/WN, no apparent distress Cardiovascular: normal peripheral pulses, regular rate, rhythm Respiratory: chest non-tender, lungs clear, normal breath sounds Gastrointestinal: normal bowel sounds, non tender, soft Hips: bilateral hip non-tender, bilateral hip normal inspection, bilateral hip normal range of motion Legs: bilateral leg normal inspection, bilateral leg no evidence of injury; right leg pain (hamstring), right leg soft tissue tenderness (hamstring) Neurologic/Tendon: normal sensation, normal motor functions, normal tendon functions Neurologic/Psychiatric: no motor/sensory deficits, alert, normal mood/affect, oriented x 3 Progress/Results/Core Measures Results/Orders My Orders Orders - FITO BUTTERFIELD Femur, Right, 2 Views (06/23/19 15:53) Ibuprofen Tablet (Motrin Tablet) (06/23/19 15:53) Vital Signs/I&O 06/23/19 06/23/19 15:30 16:53 Temp 36.9 36.9 Pulse 95 95 Resp 16 16 B/P (MAP) 102/67 (79) 102/67 (79) Pulse Ox 93 93 O2 Delivery Room Air Blood Pressure Mean: 79 Diagnostic Imaging Diagonstic Imaging: Xray Plain Films/CT/US/NM/MRI: leg Comments NAME: GUIDO JACOBO REC#: [id number] PT STATUS: DEP ER : 1965 PHYSICIAN: FITO BUTTERFIELD ADMIT DATE: 06/23/19/ER Draft Date of Exam:02/08/20 FEMUR, RIGHT, 2 VIEWS INDICATION: Right thigh pain, injury. EXAMINATION: Right femur, 06/23/2019. FINDINGS: Four views of the right femur. No fracture. No dislocation. Joint spaces appear preserved. IMPRESSION: No acute abnormality. If pain persists or patient cannot bear weight, further imaging recommended. Dictated on workstation # [id number] Dict: 06/23/19 1640 Trans: 06/23/19 1723 [facility] [id number] Interpreted by: KARLI MACIAS MD Electronically signed by: Reviewed: Reviewed by Me Departure Impression Primary Impression: Right hamstring muscle strain Qualified Codes: S76.311A - Strain of muscle, fascia and tendon of the posterior muscle group at thigh level, right thigh, initial encounter Disposition: HOME, SELF-CARE Condition: Improved Departure-Patient Inst. Decision time for Depature: 16:40 Referrals: LAINEY DAILY DO (PCP) Primary Care Physician HERBERT MCGOWAN (Family) Primary Care Physician Patient Instructions: Hamstring Muscle Strain (DC) Add. Discharge Instructions: Leonardo wrap to hamstring. Alternate heat and ice to your hamstring. Use a walker or cane at all times for ambulation. You may alternate between Tylenol 650 mg and ibuprofen 600 mg every 4 hours for pain. Follow-up with your primary care provider if symptoms are not improving or worsen. Return to the emergency department for new, urgent health care needs. All discharge instructions reviewed with patient and/or family. Voiced understanding. FITO BUTTERFIELD Jun 23, 2019 16:48
[2019-06-23 16:53] VITALS: BP 102/67
--- NOTE | 2019-06-23 17:24 | Diagnostic Imaging Report ---
INDICATION: Right thigh pain, injury. EXAMINATION: Right femur, 06/23/2019. FINDINGS: Four views of the right femur. No fracture. No dislocation. Joint spaces appear preserved. IMPRESSION: No acute abnormality. If pain persists or patient cannot bear weight, further imaging recommended. Dictated by: Dictated on workstation # [id number]
== END 2019-06-23 16:53 | disposition home or self-care (01) ==
LOC: EDUNIT# 15:26 → ER 15:28
DX: S76.311A Strain of muscle, fascia and tendon of the posterior muscle group at thigh level, right thigh, initial encounter (principal); J45.909 Unspecified asthma, uncomplicated; I10 Essential (primary) hypertension; K21.9 Gastro-esophageal reflux disease without esophagitis; F31.9 Bipolar disorder, unspecified; G43.909 Migraine, unspecified, not intractable, without status migrainosus; Z82.49 Family history of ischemic heart disease and other diseases of the circulatory system; Z88.6 Allergy status to analgesic agent; Z88.5 Allergy status to narcotic agent; Z88.8 Allergy status to other drugs, medicaments and biological substances; Z79.52 Long term (current) use of systemic steroids; Z91.041 Radiographic dye allergy status; W17.89XA Other fall from one level to another, initial encounter; Y92.009 Unspecified place in unspecified non-institutional (private) residence as the place of occurrence of the external cause
CPT/HCPCS: 73552

== ENCOUNTER 2020-01-11 05:41 | Outpatient (RCR) | payer MEDICAID ==
[~2020-01-11] VITALS: Ht 154.9 cm; Wt 107.3 kg
[~2020-01-11 05:41] MED LIST changes: +AMLO5TAB9 PO; +DOXE10CA29 PO; +GABA300C PO; +HYDR25TA4 PO; +LEVO50TA6 PO; +OMEP20CA18 PO; +POTA-51 PO; -TIZA2TAB4 PO; +TIZA2TAB7 PO
[2020-01-15] MEDS ORDERED: PANT40TA2 PO (10:24)
== END 2020-01-11 11:34 | disposition home or self-care (01) ==
LOC: PREOP 05:41
PROVIDERS: ATTEND Surgery
DX: Z01.812 Encounter for preprocedural laboratory examination (principal); Z20.828 Contact with and (suspected) exposure to other viral communicable diseases
CPT/HCPCS: 87635

== ENCOUNTER 2020-01-15 08:56 | Day surgery (SDC) | payer MEDICAID ==
[~2020-01-15] VITALS: Ht 154.9 cm; Wt 107.3 kg
[2020-01-15] MEDS ORDERED: LACTATED RINGERS 1,000 ML IV ONE (09:00)
[2020-01-15] MEDS ORDERED: LACTATED RINGERS 1,000 ML IV STA (09:05)
[2020-01-15] MEDS ORDERED: HURRICAINE EXT TUBE (BENZOCAINE) XX PRN (09:15)
[2020-01-15 09:17] VITALS: BP 127/43
--- NOTE | 2020-01-15 09:24 | Progress Note-Pre Operative ---
Pre-Operative Progress Note H&P Reviewed The H&P was reviewed, patient examined and no changes noted. Date Seen by Provider: Jan 15, 2020 Time Seen by Provider: 09:24 Date H&P Reviewed: Jan 15, 2020 Time H&P Reviewed: 09:24 Pre-Operative Diagnosis: epigastric abd pain, gerd LEVI VALENZUELA DO Jan 15, 2020 09:24
[2020-01-15] MEDS ORDERED: HURRICAINE EXT TUBE (BENZOCAINE) ONE (09:26)
[2020-01-15] MEDS ORDERED: MIDAZOLAM 2 MG/2 ML (VERSED) VIAL ONE (09:43)
[2020-01-15] MEDS ORDERED: PROPOFOL INJECTION 50 ML IV ONE (09:44)
[2020-01-15 10:10] VITALS: BP 149/71
[2020-01-15 10:15] VITALS: BP 161/84
[2020-01-15 10:20] VITALS: BP_SYST 136; BP_SYST 148; BP_DIAS 68; BP_DIAS 78
--- NOTE | 2020-01-15 10:23 | Progress Note-Post Operative ---
Post-Operative Progess Note Surgeon (s)/Prototype Assembler Electronics (s) Surgeon LEVI VALENZUELA DO Prototype Assembler Electronics: na Pre-Operative Diagnosis epigastric abd pain, gerd Post-Operative Diagnosis hiatal hernia Procedure & Operative Findings Date of Procedure 01/15/20 Procedure Performed/Findings egd c biopsies Anesthesia Type per flotation operator Estimated Blood Loss Estimated blood loss (mL): none Specimens/Packing Specimens Removed antrum, ge LEVI VALENZUELA DO Jan 15, 2020 10:23
[2020-01-15] MEDS ORDERED: PANT40TA2 PO (10:24)
--- NOTE | 2020-01-15 10:24 | Discharge Inst-Simple/Standard ---
Discharge Inst-Standard Discharge Medications New, Converted or Re-Newed RX: Transmitted to Pharmacy Patient Instructions/Follow Up Plan of Care/Instructions/FU: 3 weeks Sukhwinder Activity as Tolerated: Yes Discharge Diet: Regular Diet LEVI VALENZUELA DO Jan 15, 2020 10:24
[2020-01-15 10:50] VITALS: BP 136/72
[2020-01-15 11:00] VITALS: BP 136/72
--- NOTE | 2020-01-15 11:18 | Anesthesia-General Post-Op ---
MAC Patient Condition Mental Status/LOC: Same as Preop Cardiovascular: Satisfactory Nausea/Vomiting: Absent Respiratory: Satisfactory Pain: Controlled Complications: Absent Post Op Complications Complications None Follow Up Care/Instructions Patient Instructions None needed. Anesthesiology Discharge Order Discharge Order Patient is doing well, no complaints, stable vital signs, no apparent adverse anesthesia problems. No complications reported per nursing. HECTOR WARE CRNA Jan 15, 2020 11:18
--- NOTE | 2020-01-15 13:33 | OPERATIVE REPORT ---
DATE OF SERVICE: 01/15/2020 PREOPERATIVE DIAGNOSES: Epigastric abdominal pain, gastroesophageal reflux disease. POSTOPERATIVE DIAGNOSIS: Hiatal hernia. PROCEDURE: EGD with biopsies. SURGEON: Levi Pretty DO ANESTHESIA: Per WASHERETTE MACHINE OPERATOR. ESTIMATED BLOOD LOSS: None. COMPLICATIONS: None. SPECIMENS: Antrum and GE junction. INDICATIONS: The patient is a 54-year-old female with epigastric abdominal pain and GERD symptoms. She understands risks and benefits of procedure and wished to proceed with procedure. Consent was signed in the chart. DESCRIPTION OF PROCEDURE: The patient was taken to the endoscopy suite, placed in left lateral recumbent position. Timeout was performed. Scope was inserted in mouth, down the esophagus, stomach and into the duodenum without difficulty. There were no polyps, masses or ulcerations within the duodenum. Scope was slowly retracted back into the stomach where further insufflated. Biopsy of the antrum was obtained. No polyps, masses or ulcerations. Scope was retroflexed noting a sliding hiatal hernia. Scope was then returned, no other pathology noted. Scope was returned to its normal position, slowly withdrawn to distal esophagus. Biopsy of the GE junction was obtained. Scope was then slowly retracted back to completely remove noting no other pathology. The patient tolerated procedure well without any complications. She was taken to recovery room in stable condition. RECOMMENDATIONS: The patient will stop omeprazole and be placed on Protonix 40 mg daily. We will have her follow up in the office in 3 weeks to discuss symptoms and at that time and also pathology. Further recommendations pending biopsy results and symptoms. Job ID: [id number] DocumentID: [id number] Dictated Date: 01/15/2020 10:27:06 Steward/Stewardess Wine Date: 01/15/2020 13:32:40 Dictated By: LEVI PRETTY DO
== END 2020-01-15 11:00 | disposition home or self-care (01) ==
LOC: ENDO 08:56
PROVIDERS: ATTEND Surgery
DX: K44.9 Diaphragmatic hernia without obstruction or gangrene (principal); K21.9 Gastro-esophageal reflux disease without esophagitis; K29.50 Unspecified chronic gastritis without bleeding; K20.9 Esophagitis, unspecified; E11.9 Type 2 diabetes mellitus without complications; E78.5 Hyperlipidemia, unspecified; I10 Essential (primary) hypertension; J45.909 Unspecified asthma, uncomplicated; M06.9 Rheumatoid arthritis, unspecified; I20.9 Angina pectoris, unspecified; M81.0 Age-related osteoporosis without current pathological fracture; M19.91 Primary osteoarthritis, unspecified site; K58.9 Irritable bowel syndrome, unspecified; M54.9 Dorsalgia, unspecified; G89.29 Other chronic pain; Z85.828 Personal history of other malignant neoplasm of skin; Z79.899 Other long term (current) drug therapy; Z79.890 Hormone replacement therapy; Z91.018 Allergy to other foods; Z91.013 Allergy to seafood; Z91.048 Other nonmedicinal substance allergy status; Z88.2 Allergy status to sulfonamides; Z88.5 Allergy status to narcotic agent; Z87.19 Personal history of other diseases of the digestive system

== ENCOUNTER → 2020-03-14 | Outpatient (CLI) | payer MEDICAID ==
[~2020-03-14] MED LIST changes: +AMLO-250 PO; -AMLO5TAB9 PO; +PANT20TA18 PO; -PANT20TA3 PO; +PANT40TA2 PO
--- NOTE | 2020-03-17 09:30 | Diagnostic Imaging Report ---
INDICATION: Routine screening. Comparison is made with prior mammogram from 08/15/2018 and 07/11/2017. 2-D and 3-D bilateral screening mammography was performed with CAD. Scattered fibroglandular densities are identified bilaterally. There are benign calcifications scattered throughout both breasts. Benign nodules in both breasts are stable. No new mass or malignant appearing microcalcifications are seen. Axillae are unremarkable. IMPRESSION: BI-RADS Category 2 No mammographic features suspicious for malignancy are identified. Dictated by: Dictated on workstation # [id number]
== END ==
LOC: RAD 12:45
PROVIDERS: ATTEND Nurse Practitioner Community Health
DX: Z12.31 Encounter for screening mammogram for malignant neoplasm of breast (principal)
CPT/HCPCS: 77063; 77067

== ENCOUNTER → 2021-03-26 | Outpatient (CLI) | payer MEDICAID ==
[~2021-03-26] MED LIST changes: +TIZA-169 PO; -TIZA2TAB7 PO
--- NOTE | 2021-03-26 15:47 | Diagnostic Imaging Report ---
INDICATION: Routine screening. COMPARISON is made with prior mammograms from 03/14/2020 and 08/15/2018. 2-D and 3-D bilateral screening mammography was performed with CAD. Scattered fibroglandular densities are identified bilaterally. Intraparenchymal lymph node in the outer right breast is stable. There are scattered benign calcifications in both breasts. No spiculated mass or malignant-appearing microcalcifications are seen. The axillae are unremarkable. IMPRESSION: BI-RADS Category 2 No mammographic features suspicious for malignancy are identified. ACR BI-RADS Category 2: Benign findings. Result letter will be mailed to the patient. Note: At least 10% of breast cancer is not imaged by mammography. Dictated by: Dictated on workstation # [id number]
== END ==
LOC: RAD 10:30
PROVIDERS: ATTEND Nurse Practitioner Family
DX: Z12.31 Encounter for screening mammogram for malignant neoplasm of breast (principal)
CPT/HCPCS: 77063; 77067

== ENCOUNTER 2021-05-26 11:51 | Emergency (ER) | payer MEDICAID ==
[~2021-05-26] VITALS: Ht 154 cm; Wt 104.0 kg
[~2021-05-26 11:51] MED LIST changes: +CYCL10TA25 PO; +DICY20TA PO; -DICY20TA10 PO
--- NOTE | 2021-05-26 12:16 | ED General ---
General Stated Complaint: COVID +,SOB,HAYES, Source of Information: Patient Exam Limitations: No Limitations History of Present Illness Date Seen by Provider: May 26, 2021 Time Seen by Provider: 12:02 Initial Comments Patient is a 55-year-old female who presents to the emergency department with a chief complaint COVID positive x5 days, generalized weakness, cannot recall the last time she urinated. Patient complains of lower abdominal pain. She states she is not COVID vaccinated. Her daughter tested positive a week or so ago and is now COVID-negative. Patient states she lives alone. Has a myriad of past m edical history including autoimmune disease/Sjogren's syndrome. Follows at . Also sees a practitioner at [facility] in [place]. Has had cough productive of sputum. Diarrhea "like water". No dysuria as she has not urinated in a significant amount of time she states. Feels short of breath. Hoarse. mild sore throat. Has mild headache. All other review of systems reviewed and negative except as stated. Timing/Duration: 1 Week Severity: Moderate Associated Systoms: Cough, Headaches, Loss of Appetite, Malaise, Shortness of Air, Weakness Allergies and Home Medications Allergies Coded Allergies: iopamidol (Unverified Allergy, Intermediate, CHEST PAIN, 01/02/19) aspirin (Unverified Allergy, Mild, ABDOMINAL PAIN, 01/02/19) codeine (Unverified Allergy, Mild, SEDATION, 01/02/19) strawberry (Unverified Allergy, Unknown, 01/02/19) tomato (Unverified Allergy, Unknown, 01/02/19) FROM UNCODED ALLERGIES Uncoded Allergies: IVP DYE (Allergy, Unknown, 06/05/15) TAPE (Allergy, Unknown, 04/13/07) Patient Home Medication List Home Medication List Reviewed: Yes Albuterol Sulfate (Albuterol Sulfate) 2.5 Mg/3 Ml Vial.neb, 2.5 MG IH Q4H PRN for COUGH, (Reported) Entered as Reported by: MARIAH MERCER on 06/05/15 1606 Albuterol/Ipratropium (Combivent Respimat Inhal [place]) 4 Gm Aero, 2 PUFF IH QID PRN for SHORTNESS OF BREATH, (Reported) Entered as Reported by: MARIAH MERCER on 06/05/15 1432 Amlodipine Besylate (Amlodipine Besylate) Unknown Strength Tablet, 1 TAB PO DAILY, (Reported) Entered as Reported by: REJI PERALES on 01/10/20 1552 Atorvastatin Calcium (Atorvastatin Calcium) 20 Mg Tablet, 20 MG PO DAILY, (Reported) Entered as Reported by: MARIAH MERCER on 06/05/15 1432 Dexamethasone (Decadron) 6 Mg Tablet, 6 MG PO DAILY Prescribed by: GUIDO FRAGOSO on 05/26/21 1434 Dicyclomine HCl (Dicyclomine HCl) 20 Mg Tablet, 20 MG PO QID PRN for MUSCLE CRAMPS, (Reported) Entered as Reported by: MARIAH MERCER on 06/05/15 1524 Doxepin HCl (Doxepin HCl) 10 Mg Capsule, 10 MG PO DAILY, (Reported) Entered as Reported by: REJI PERALES on 01/10/20 1552 Duloxetine HCl (Duloxetine HCl) 60 Mg Capsule., 120 MG PO DAILY, (Reported) Entered as Reported by: KODY KOHLI on 03/15/18 1141 Estradiol (Estradiol Tablet) 1 Mg Tablet, 1 MG PO DAILY, (Reported) Entered as Reported by: KODY KOHLI on 03/15/18 1141 Estradiol (Vagifem) 10 Mcg Tablet, 10 MCG VG tuesday and , (Reported) Entered as Reported by: KODY KOHLI on 03/15/18 114 Gabapentin (Neurontin) 300 Mg Capsule, 300 MG PO TID, (Reported) Entered as Reported by: REJI PERALES on 01/10/20 155 Hydrochlorothiazide (Hydrochlorothiazide) Unknown Strength Tablet, 1 TAB PO DAILY, (Reported) Entered as Reported by: REJI PERALES on 01/10/20 155 Lamotrigine (Lamotrigine) 200 Mg Tablet, 200 MG PO DAILY, (Reported) Entered as Reported by: KODY KOHLI on 03/15/18 114 Levothyroxine Sodium (Levothyroxine Sodium) 50 Mcg Tablet, 50 MCG PO DAILY, (Reported) Entered as Reported by: REJI PERALES on 01/10/20 1552 Lipase/Protease/Amylase (Creon 12,000 Units Capsule) 1 Each Capsule.dr, 12,000 UNITS PO TID, (Reported) Entered as Reported by: MARIAH MERCER on 06/05/15 1432 Loratadine (Loratadine) 10 Mg Tablet, 10 MG PO BID, (Reported) Entered as Reported by: MARIAH MERCER on 06/05/15 1432 Losartan Potassium (Losartan Potassium) Unknown Strength Tablet, 1 TAB PO DAILY, (Reported) Entered as Reported by: REJI PERALES on 01/10/20 1552 Naltrexone HCl/Bupropion HCl (Contrave ER 8-90 mg Tablet) 1 Each Tablet.er, 1 EACH PO DAILY, (Reported) Entered as Reported by: KODY KOHLI on 03/15/18 1141 Omeprazole (Omeprazole) 20 Mg Capsule.dr, 20 MG PO DAILY, (Reported) Entered as Reported by: REJI PERALES on 01/10/20 1552 Pantoprazole Sodium (Protonix) 40 Mg Tablet.dr, 40 MG PO DAILY Prescribed by: LEVI VALENZUELA on 01/15/20 1024 Potassium Chloride (Potassium Chloride) 20 Meq Tablet.er, 20 MEQ PO BID, (Reported) Entered as Reported by: REJI PERALES on 01/10/20 1552 Sumatriptan Succinate (Sumatriptan Succinate) 50 Mg Tablet, 50 MG PO PRN PRN for MIGRAINE, (Reported) Entered as Reported by: KODY KOHLI on 03/15/18 1146 Tizanidine HCl (Tizanidine HCl) 2 Mg Tablet, 2 MG PO BID PRN for MUSCLE SPASMS, (Reported) Entered as Reported by: MARIAH MERCER on 06/05/15 1524 Review of Systems Review of Systems Constitutional: see HPI EENTM: hoarseness, throat pain Respiratory: cough, phlegm, short of breath Cardiovascular: no symptoms reported Gastrointestinal: abdominal pain Genitourinary: decreased output : No Musculoskeletal: no symptoms reported Skin: no symptoms reported Psychiatric/Neurological: Headache All Other Systems Reviewed Negative Unless Noted: Yes Past Hihvudb-Erqkom-Jkrglg Hx Seasonal Allergies Seasonal Allergies: Yes Past Medical History Surgeries: Yes (carpal tunnel, t&a, d&c and 1 ) Adenoidectomy, Section, Hysterectomy, Tonsillectomy Respiratory: Yes (does breathing treaments, wears 2l o2 at night) Asthma Currently Using CPAP: No Currently Using BIPAP: No Cardiac: Yes Angina, Hypertension Neurological: Yes Headaches /Migraines Reproductive Disorders: Yes (ENDOMETRIOSIS) [employer] History: Hysterectomy Sexually Transmitted Disease: Yes (GENITAL WARTS) HIV/AIDS: No Genitourinary: No Gastrointestinal: Yes Gastroesophageal Reflux, Diverticulosis, Irritable Bowel Musculoskeletal: Yes (DEGENERATIVE JOINT DISEASE/RHEUMATOID ARTHRITIS) Degenerate Disk Disease, Osteoporosis, Arthritis, Back Injury, Chronic Back Pain Endocrine: No HEENT: Yes (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) Loss of Vision: Bilateral Hearing Impairment: Denies Cancer: No Psychosocial: Yes (PTSD) PTSD, Bipolar Integumentary: Yes Eczema Blood Disorders: No Adverse Reaction/Blood Tranf: No Family Medical History Abdominal aortic aneurysm 03 FATHER Family history: Arthritis 03 FATHER Family history: Asthma 03 FATHER Family history: Cardiovascular disease 03 FATHER 03 MOTHER Family history: Diabetes mellitus 03 FATHER 03 MOTHER Family history: Hypertension 03 FATHER 03 MOTHER Family history: Osteoporosis 03 FATHER History of - respiratory disease 03 FATHER No Pertinent Family Hx Physical Exam Vital Signs Vital Signs - First Documented 05/26/21 12:00 Temp 36.6 Pulse 75 Resp 20 B/P (MAP) 131/88 (102) Pulse Ox 94 O2 Delivery Room Air Capillary Refill : Height, Weight, BMI Height: 5'1.00" Weight: 218lbs. 0.0oz. 98.071383kl; 44.71 BMI Method:Stated General Appearance: No Apparent Distress, WD/WN Eyes: Bilateral Eye Normal Inspection, Bilateral Eye PERRL, Bilateral Eye EOMI HEENT: PERRL/EOMI, Pharynx Normal Neck: Normal Inspection Respiratory: Lungs Clear (room air sats 94-95%), Normal Breath Sounds, No Accessory Muscle Use, No Respiratory Distress Cardiovascular: Regular Rate, Rhythm, Normal Peripheral Pulses Gastrointestinal: Soft, Tenderness (suprapubic tenderness) Extremity: Normal Capillary Refill, Normal Inspection, Normal Range of Motion, Non Tender, No Calf Tenderness, No Pedal Edema Neurologic/Psychiatric: Alert, Oriented x3, No Motor/Sensory Deficits, Normal Mood/Affect Skin: Normal Color, Warm/Dry Progress/Results/Core Measures Suspected Sepsis SIRS Temperature: Pulse: Respiratory Rate: Laboratory Tests 05/26/21 12:10: White Blood Count 3.3L Blood Pressure / Mean: Laboratory Tests 05/26/21 12:10: Creatinine 1.11, Platelet Count 191 Results/Orders Lab Results Laboratory Tests Test 05/26/21 12:10 05/26/21 12:15 Range/Units White Blood Count 3.3 L 4.3-11.0 10^3/uL Red Blood Count 4.50 3.80-5.11 10^6/uL Hemoglobin 14.3 11.5-16.0 g/dL Hematocrit 42 35-52 % Mean Corpuscular Volume 92 80-99 fL Mean Corpuscular Hemoglobin 32 25-34 pg Mean Corpuscular Hemoglobin Concent 35 32-36 g/dL Red Cell Distribution Width 13.4 10.0-14.5 % Platelet Count 191 130-400 10^3/uL Mean Platelet Volume 11.8 9.0-12.2 fL Immature Granulocyte % (Auto) 0 % Neutrophils (%) (Auto) 32 L 42-75 % Lymphocytes (%) (Auto) 58 H 12-44 % Monocytes (%) (Auto) 9 0-12 % Eosinophils (%) (Auto) 1 0-10 % Basophils (%) (Auto) 1 0-10 % Neutrophils # (Auto) 1.0 L 1.8-7.8 10^3/uL Lymphocytes # (Auto) 1.9 1.0-4.0 10^3/uL Monocytes # (Auto) 0.3 0.0-1.0 10^3/uL Eosinophils # (Auto) 0.0 0.0-0.3 10^3/uL Basophils # (Auto) 0.0 0.0-0.1 10^3/uL Immature Granulocyte # (Auto) 0.0 0.0-0.1 10^3/uL D-Dimer 0.42 0.00-0.49 UG/ML Sodium Level 143 135-145 MMOL/L Potassium Level 3.0 L 3.6-5.0 MMOL/L Chloride Level 97 L 98-107 MMOL/L Carbon Dioxide Level 32 21-32 MMOL/L Anion Gap 14 5-14 MMOL/L Blood Urea Nitrogen 18 7-18 MG/DL Creatinine 1.11 0.60-1.30 MG/DL Estimat Glomerular Filtration Rate 51 BUN/Creatinine Ratio 16 Glucose Level 124 H 70-105 MG/DL Calcium Level 8.8 8.5-10.1 MG/DL C-Reactive Protein High Sensitivity 0.62 H 0.00-0.50 MG/DL Procalcitonin 0.03 <0.10 NG/ML Urine Color YELLOW Urine Clarity CLEAR Urine pH 6.0 5-9 Urine Specific [place] >=1.030 1.016-1.022 Urine Protein 1+ H NEGATIVE Urine Glucose (UA) NEGATIVE NEGATIVE Urine Ketones NEGATIVE NEGATIVE Urine Nitrite NEGATIVE NEGATIVE Urine Bilirubin NEGATIVE NEGATIVE Urine Urobilinogen 0.2 < = 1.0 MG/DL Urine Leukocyte Esterase NEGATIVE NEGATIVE Urine RBC (Auto) NEGATIVE NEGATIVE Urine RBC NONE /HPF Urine WBC NONE /HPF Urine Crystals PRESENT H /LPF Urine Amorphous Sediment FEW LALO URATES H /LPF Urine Bacteria TRACE /HPF Urine Casts PRESENT /LPF Urine Hyaline Casts 0-2 H /LPF Urine Mucus MODERATE H /LPF Urine Culture Indicated NO My Orders Orders - GUIDO FRAGOSO MD Chest 1 View, Ap/Pa Only (05/26/21 12:08) Ed Iv/Invasive Line Start (05/26/21 12:11) Covid-19 External Lab Results (05/26/21 12:11) Cbc With Automated Diff (05/26/21 12:11) Basic Metabolic Panel (05/26/21 12:11) Ua Culture If Indicated (05/26/21 12:11) Isolation Central Supply Req (05/26/21 12:11) Fibrin Degradation Products (05/26/21 13:31) Hs C Reactive Protein (05/26/21 13:31) Procalcitonin (Pct) (05/26/21 13:31) Dexamethasone Injection (Decadron Inje (05/26/21 14:34) Vital Signs/I&O 05/26/21 05/26/21 12:00 14:45 Temp 36.6 Pulse 75 72 Resp 20 16 B/P (MAP) 131/88 (102) 122/72 Pulse Ox 94 94 O2 Delivery Room Air Room Air Capillary Refill : Progress Note #1: Time: 13:53 Progress Note Notified by patient's nurse Rachel that she got significantly hypoxic down into the low 80s when she got up to the bedside commode. She does wear 2 L of oxygen at night and as needed during the day. 2 L was placed. Progress Note #2: Time: 14:26 Progress Note Patient reassessed, resting comfortably on her left side, initially when I went in the room her oxygen saturations were 89%. With a good pleth,, the patient is not on nasal cannula oxygen and as she was talking her sats improved to 94%. I discussed with her discharge to home. She states she feels comfortable going home. She has a care worker that is at her house 3 or 4 hours at a time daily. She also has a daughter who can come and visit her and bring her things she might need. Advised her that we will start her on some steroids. First dose of Decadron 6 mg given in her IV prior to discharge. She has all of her inhalers and medications at home. I advised her to come back if she checks her oxygen and it is consistently below 90 in spite of turning up her oxygen at home to a max of 4. Patient verbalizes understanding of her discharge intstructions and is comfortable with the plan of care. Diagnostic Imaging Diagonstic Imaging: Xray Plain Films/CT/US/NM/MRI: chest Comments [facility]. [place], [place] NAME: GUIDO JACOBO MED REC#: [id number] PT STATUS: REG ER : 1965 PHYSICIAN: GUIDO FRAGOSO MD ADMIT DATE: 05/26/21/ER Draft Date of Exam:05/26/21 CHEST 1 VIEW, AP/PA ONLY INDICATION: COVID , shortness of breath COMPARISON: 03/15/2018. FINDINGS: Body habitus limits radiographic sensitivity. There is hazy pulmonary opacity bilaterally greater left than right as a new finding from prior. Given the history presumed to reflect interstitial infiltrates owing to COVID. No failure pattern, effusion or pneumothorax. IMPRESSION: Limited by body habitus, bilateral interstitial infiltrates greater left are suspected and would be compatible with COVID pneumonia. Report was faxed to [facility] by phylicia at 12:21PM. Dictated on workstation # [id number] Dict: 05/26/21 1217 Trans: 05/26/21 1221 PHYLICIA [id number] Interpreted by: WILLIAM HAUSER Electronically signed by: Departure Impression Primary Impression: Pneumonia due to COVID-19 virus Disposition: HOME, SELF-CARE Condition: Stable Departure-Patient Inst. Decision time for Depature: 14:31 Referrals: LAINEY DAILY DO (PCP) Primary Care Physician HERBERT MCGOWAN (Family) Primary Care Physician Patient Instructions: COVID-19 ED Add. Discharge Instructions: Drink plenty of fluids to stay well-hydrated, water, Gatorade, fitness griffith. Continue to take your prescribed medications as directed. You will be on oral steroids, 1 dose once a day for the next 5 days starting tomorrow. Tylenol or ibuprofen as needed for headache, body aches. Always take these medications with food. Use your home oxygen as needed, if you have to increase your oxygen to 4 and your oxygen levels are dipping below 90% you need to come back to the emergency department. Return to the emergency room for any other new, concerning or emergent complaints. Follow-up with your primary care physician in 2 weeks. Scripts Dexamethasone (Decadron) 6 Mg Tablet 6 MG PO DAILY for 5 Days, #5 TAB starting on 05/27/21 Prov: GUIDO FRAGOSO MD 05/26/21 Copy Copies To 1: LAINEY DAILY KATHRYN M MD May 26, 2021 12:16
--- NOTE | 2021-05-26 12:21 | Diagnostic Imaging Report ---
INDICATION: COVID , shortness of breath COMPARISON: 03/15/2018. FINDINGS: Body habitus limits radiographic sensitivity. There is hazy pulmonary opacity bilaterally greater left than right as a new finding from prior. Given the history presumed to reflect interstitial infiltrates owing to COVID. No failure pattern, effusion or pneumothorax. IMPRESSION: Limited by body habitus, bilateral interstitial infiltrates greater left are suspected and would be compatible with COVID pneumonia. Report was faxed to [facility] by gucci at 12:21PM. Dictated by: Dictated on workstation # [id number]
[2021-05-26 12:28] LABS: BILIRUBIN,URINE NEGATIVE (NEGATIVE); CLARITY,URINE CLEAR; COLOR,URINE YELLOW; GLUCOSE, URINE (UA) NEGATIVE (NEGATIVE); KETONES,URINE NEGATIVE (NEGATIVE); LEUKOCYTE ESTERASE ,URINE NEGATIVE (NEGATIVE); NITRITE,URINE NEGATIVE (NEGATIVE); PROTEIN,URINE 1+ (NEGATIVE)
[2021-05-26 12:28] LABS: BASOPHILS % (AUTO) 1 % (0-10); EOSINOPHILS % (AUTO) 1 % (0-10); HEMATOCRIT 42 % (35-52); HEMOGLOBIN 14.3 g/dL (11.5-16.0); LYMPHOCYTES # (AUTO) 1.9 10^3/uL (1.0-4.0); LYMPHOCYTES % (AUTO) 58 % (12-44); MEAN CORPUSCULAR HEMOGLOBIN 32 pg (25-34); MEAN CORPUSCULAR HGB CONC 35 g/dL (32-36); MEAN CORPUSCULAR VOLUME 92 fL (80-99); MEAN PLATELET VOLUME 11.8 fL (9.0-12.2); MONOCYTES # (AUTO) 0.3 10^3/uL (0.0-1.0); MONOCYTES % (AUTO) 9 % (0-12); NEUTROPHILS % (AUTO) 32 % (42-75); PLATELET COUNT 191 10^3/uL (130-400); WHITE BLOOD COUNT 3.3 10^3/uL (4.3-11.0)
[2021-05-26 12:44] LABS: CALCIUM 8.8 MG/DL (8.5-10.1)
[2021-05-26 12:49] LABS: CREATININE SERUM 1.11 MG/DL (0.60-1.30)
[2021-05-26 13:02] LABS: AMORPHOUS SEDIMENT,UR FEW AMOR URATES /LPF; BACTERIA,URINE TRACE /HPF; HYALINE CASTS, URINE 0-2 /LPF
[2021-05-26] MEDS ORDERED: DEXA6TAB6 PO (14:34)
[2021-05-26 14:45] VITALS: BP 122/72
== END 2021-05-26 14:45 | disposition home or self-care (01) ==
LOC: EDUNIT# 11:51 → ER 11:52
DX: U07.1 COVID-19 (principal); J12.82 Pneumonia due to coronavirus disease 2019; I10 Essential (primary) hypertension; F31.9 Bipolar disorder, unspecified; F43.10 Post-traumatic stress disorder, unspecified; K21.9 Gastro-esophageal reflux disease without esophagitis; G43.909 Migraine, unspecified, not intractable, without status migrainosus; J45.909 Unspecified asthma, uncomplicated; Z79.890 Hormone replacement therapy; Z79.899 Other long term (current) drug therapy; Z88.8 Allergy status to other drugs, medicaments and biological substances
CPT/HCPCS: 36415; 51701; 71045; 80048; 81000; 84145; 85025; 85379; 86141; 96374

== ENCOUNTER → 2022-07-16 | Outpatient (CLI) | payer MEDICAID ==
[~2022-07-16] MED LIST changes: +DEXA6TAB6 PO; +OMEP20TA56 PO; -OMEP20TA7 PO
--- NOTE | 2022-07-16 17:07 | Diagnostic Imaging Report ---
EXAMINATION: US Thyroid. TECHNIQUE: Multiple real-time grayscale images were obtained of the thyroid in various projections. HISTORY: THYROID DISEASE COMPARISON: None available. FINDINGS: The right lobe of the thyroid measures 3.2 x 0.7 x 1.1 cm. The left lobe of the thyroid measures 3.2 x 1.0 x 1.4 cm. The isthmus measures 0.2 cm. The size and echogenicity of the thyroid is normal. There is a benign mixed cystic and solid nodule measuring 8 x 7 x 4 mm in the left lobe of the thyroid. IMPRESSION: 1. No suspicious thyroid nodule. Dictated by: Dictated on workstation # [id number]
== END ==
LOC: RAD 11:00
PROVIDERS: ATTEND Internal Medicine
DX: E07.9 Disorder of thyroid, unspecified (principal)
CPT/HCPCS: 76536

== ENCOUNTER → 2022-08-06 | Outpatient (CLI) | payer MEDICAID ==
--- NOTE | 2022-08-06 14:24 | Diagnostic Imaging Report ---
Indication: Elevated serum immunoglobulin free light chains. Findings: Two-view whole-body skeletal survey performed. No cervical thoracic or lumbar compression deformity or other fracture pattern. There is no suspicious lytic lesion within the axial or appendicular skeleton. No site of suspicious bony production. Some benign calcified granulomatous disease in the azygos region present. The lungs clear. The bowel gas pattern normal. Arthritic changes to the shoulders and knees with no acute-appearing osseous pathology. Impression: No suspicious lytic or sclerotic bone lesion. No fracture identified. Dictated by: Dictated on workstation # [id number]
== END ==
LOC: RAD 13:11
DX: R76.8 Other specified abnormal immunological findings in serum (principal)
CPT/HCPCS: 77075

== ENCOUNTER → 2022-11-22 | Outpatient (CLI) | payer MEDICAID ==
[~2022-11-22] MED LIST changes: +POTA-330 PO; -POTA-51 PO
--- NOTE | 2022-11-22 13:11 | Diagnostic Imaging Report ---
INDICATION: Routine screening. COMPARISON: 03/26/2021 and 03/14/2020. TECHNIQUE: 2D and 3D bilateral screening mammography was performed with CAD. FINDINGS: Scattered fibroglandular densities are identified bilaterally. Benign nodules in both breasts appear stable. No spiculated mass or malignant appearing microcalcifications are identified. The axillae are unremarkable. IMPRESSION: No mammographic features suspicious for malignancy are identified. ACR BI-RADS Category 2: Benign findings. Result letter will be mailed to the patient. Note: At least 10% of breast cancer is not imaged by mammography. Dictated by: Dictated on workstation # [id number]
== END ==
LOC: RAD 10:08
PROVIDERS: ATTEND Physician Assistant
DX: Z12.31 Encounter for screening mammogram for malignant neoplasm of breast (principal)
CPT/HCPCS: 77063; 77067

== ENCOUNTER → 2023-01-03 | Outpatient (CLI) | payer MEDICAID ==
[2023-01-03 09:10] LABS: BASOPHILS # (AUTO) 0.1 10^3/uL (0.0-0.1); BASOPHILS % (AUTO) 1 % (0-10); EOSINOPHILS # (AUTO) 0.4 10^3/uL (0.0-0.3); EOSINOPHILS % (AUTO) 4 % (0-10); HEMATOCRIT 39 % (35-52); HEMOGLOBIN 13.1 g/dL (11.5-16.0); LYMPHOCYTES # (AUTO) 2.7 10^3/uL (1.0-4.0); LYMPHOCYTES % (AUTO) 31 % (12-44); MEAN CORPUSCULAR HEMOGLOBIN 31 pg (25-34); MEAN CORPUSCULAR HGB CONC 34 g/dL (32-36); MEAN CORPUSCULAR VOLUME 92 fL (80-99); MEAN PLATELET VOLUME 10.3 fL (9.0-12.2); MONOCYTES # (AUTO) 0.6 10^3/uL (0.0-1.0); MONOCYTES % (AUTO) 8 % (0-12); NEUTROPHILS # (AUTO) 4.8 10^3/uL (1.8-7.8); NEUTROPHILS % (AUTO) 56 % (42-75); PLATELET COUNT 246 10^3/uL (130-400); WHITE BLOOD COUNT 8.5 10^3/uL (4.3-11.0)
[2023-01-03 09:20] LABS: CLARITY,URINE CLEAR; COLOR,URINE YELLOW
[2023-01-03 09:21] LABS: BILIRUBIN,URINE NEGATIVE (NEGATIVE); GLUCOSE, URINE (UA) NEGATIVE (NEGATIVE); KETONES,URINE NEGATIVE (NEGATIVE); LEUKOCYTE ESTERASE ,URINE NEGATIVE (NEGATIVE); NITRITE,URINE NEGATIVE (NEGATIVE); PROTEIN,URINE NEGATIVE (NEGATIVE)
[2023-01-03 09:28] LABS: AMORPHOUS SEDIMENT,UR RARE AMOR URATES /LPF
[2023-01-03 09:32] LABS: WBC,URINE RARE /HPF
[2023-01-03 09:33] LABS: BILIRUBIN,TOTAL 0.4 MG/DL (0.1-1.0); CALCIUM 8.4 MG/DL (8.5-10.1); CREATININE SERUM 0.89 MG/DL (0.60-1.30); TOTAL PROTEIN 6.8 GM/DL (6.4-8.2)
[2023-01-03 09:33] LABS: BACTERIA,URINE MODERATE /HPF
[2023-01-03 09:35] LABS: ERYTHROCYTE SEDIMENTATION RATE 21 MM/HR (0-30)
--- NOTE | 2023-01-03 17:57 | Diagnostic Imaging Report ---
US SOFT TISSUE HEAD NECK [id number] INDICATION: Posterior cervical lymphadenopathy and neck pain. COMPARISON: None available. TECHNIQUE: Targeted ultrasound was performed in the posterior aspect of the neck with grayscale and color Doppler imaging. FINDINGS: On both sides of the posterior neck, there are a few normal-appearing lymph nodes all measuring less than a centimeter in maximal size and having no cortical thickening. Additionally, all the lymph nodes maintain a normal echogenic hilum. No enlarged lymph nodes. No mass or fluid collection. IMPRESSION: 1. No cervical lymphadenopathy or mass in the posterior aspect of the neck. 2. There are multiple normal-appearing bilateral cervical lymph nodes. Dictated by: Dictated on workstation # [id number]
== END ==
LOC: RAD 08:43
DX: M35.00 Sjogren syndrome, unspecified (principal); H53.8 Other visual disturbances; R59.1 Generalized enlarged lymph nodes; M54.2 Cervicalgia
CPT/HCPCS: 36415; 76536; 80053; 81000; 82570; 83516; 84156; 85025; 85652; 86141; 86160; 87088

== ENCOUNTER → 2023-01-03 | Outpatient (CLI) | payer MEDICAID | LOC: CARD 08:42 | PROVIDERS: ATTEND Physician Assistant | DX: I10 Essential (primary) hypertension (principal) | CPT/HCPCS: 93306 ==

== ENCOUNTER → 2023-02-16 | Outpatient (CLI) | payer MEDICAID ==
[~2023-02-16] MED LIST changes: +BUPR150T24 PO; +CATHETER FLUSH 10 ML SYR IVP PRN; +KETO15CR2 TP; +NF-PILO5T PO; +REGADENOSON 0.4 MG/5 ML SYR IV ONE
[2023-02-16 13:00] VITALS: BP 148/49
--- NOTE | 2023-02-16 16:02 | Cardiology Stress Test Report ---
Stress Test Report Date of Procedure/Referring: Date of Procedure: Feb 16, 2023 PCP Carl Gonzales Admitting Physician Admitting Physician: Attending Physician: Geovanna Martinez Baseline Heart Rate: 67 Baseline Blood Pressure: Blood Pressure Systolic: 148 Blood Pressure Diastolic: 49 Baseline Vitals Vital Signs Date Time Temp Pulse Resp B/P (MAP) Pulse Ox O2 Delivery O2 Flow Rate FiO2 02/16/23 13:00 67 148/49 (82) Baseline EKG: Baseline EKG: NSR Summary After explaining the procedure to the patient, she signed a consent and then brought to the stress nuclear laboratory. Patient received 0.4 mg Lexiscan for stress test, ECG, heart rate and blood pressure were monitored continuously. Resting and stress dose of radio tracer were injected, imaging was acquired and reviewed in short axis, horizontal long axis and vertical long axis views. TID: 1.04 SSS: 12 SDS: 8 EF: 70 Patient tolerated Lexiscan well Breast attenuation with reversible ischemia involving the anterior wall and anterolateral wall Normal left ventricular size, ejection fraction 70% Copy Copies To 1: [facility]/EMILEE RAMON MD Feb 16, 2023 16:02
== END ==
LOC: CARD 11:18
PROVIDERS: ATTEND Physician Assistant
DX: I10 Essential (primary) hypertension (principal)
CPT/HCPCS: 78452; 93017; A9502

== ENCOUNTER 2023-02-23 10:37 | Day surgery (SDC) | payer MEDICAID ==
[~2023-02-23] VITALS: Ht 153.7 cm; Wt 103.4 kg
[2023-02-23] VITALS (12 sets, daily range): BP systolic 110–185; BP diastolic 71–119
[~2023-02-23 10:37] MED LIST changes: -BUPR150T24 PO; -CATHETER FLUSH 10 ML SYR IVP PRN; -KETO15CR2 TP; -NF-PILO5T PO; -REGADENOSON 0.4 MG/5 ML SYR IV ONE
[2023-02-23] MEDS ORDERED: HEParin (CATH LAB) 2,000 ML IV ONE (10:52)
[2023-02-23] MEDS ORDERED: NS IV 1000 ML 1,000 ML ONE (10:52)
[2023-02-23] MEDS ORDERED: LIDOCAINE 1% INJ 20 ML VIAL ONE (10:52)
[2023-02-23] MEDS ORDERED: NS IV 1000 ML 1,000 ML IV SCH ×2 (11:00→13:15)
[2023-02-23 11:15] LABS: HEMATOCRIT 41 % (35-52); HEMOGLOBIN 14.1 g/dL (11.5-16.0); MEAN CORPUSCULAR HEMOGLOBIN 31 pg (25-34); MEAN CORPUSCULAR HGB CONC 35 g/dL (32-36); MEAN CORPUSCULAR VOLUME 91 fL (80-99); PLATELET COUNT 294 10^3/uL (130-400); WHITE BLOOD COUNT 8.2 10^3/uL (4.3-11.0)
--- NOTE | 2023-02-23 11:22 | Diagnostic Imaging Report ---
INDICATION: Respiratory distress. Study compared 05/26/2021. FINDINGS: Lungs are clear. Benign calcified granulomatous nodes at the azygos chronic. No suspicious mass, edema or pneumonia. IMPRESSION: No acute finding. Dictated by: Dictated on workstation # [id number]
[2023-02-23 11:27] LABS: COLOR,URINE YELLOW
[2023-02-23 11:28] LABS: BILIRUBIN,URINE 1+ (NEGATIVE); CLARITY,URINE CLEAR; GLUCOSE, URINE (UA) NEGATIVE (NEGATIVE); KETONES,URINE TRACE (NEGATIVE); LEUKOCYTE ESTERASE ,URINE NEGATIVE (NEGATIVE); NITRITE,URINE NEGATIVE (NEGATIVE); PROTEIN,URINE 1+ (NEGATIVE)
[2023-02-23 11:29] LABS: BACTERIA,URINE MODERATE /HPF; PROTHROMBIN TIME PATIENT 13.4 SEC (12.2-14.7)
[2023-02-23] MEDS ORDERED: BUPR150T24 PO (11:35)
[2023-02-23] MEDS ORDERED: IPRA4AER IH (11:35)
[2023-02-23] MEDS ORDERED: DICY20TA PO (11:35)
[2023-02-23] MEDS ORDERED: AMLO-250 PO (11:35)
[2023-02-23] MEDS ORDERED: NF-PILO5T PO (11:36)
[2023-02-23] MEDS ORDERED: DULO60CA59 PO (11:36)
[2023-02-23] MEDS ORDERED: HYDR25TA4 PO (11:36)
[2023-02-23] MEDS ORDERED: KETO15CR2 TP (11:36)
[2023-02-23 11:37] LABS: ALBUMIN 4.3 GM/DL (3.2-4.5); BILIRUBIN,TOTAL 0.5 MG/DL (0.1-1.0); CALCIUM 9.5 MG/DL (8.5-10.1); CREATININE SERUM 1.06 MG/DL (0.60-1.30); POTASSIUM 3.1 MMOL/L (3.6-5.0)
[2023-02-23] MEDS ORDERED: DOXE10CA29 PO (11:38)
--- NOTE | 2023-02-23 12:03 | Cardiac Procedure Note-CS/ASA ---
Pre-Procedure Note Pre-Op Procedure Note Date of Available H&P: Feb 17, 2023 Date H&P Reviewed: Feb 23, 2023 Time H&P Reviewed: 12:03 History & Physical: H&P Reviewed, Patient Examed, No changes noted Pre-Operative Diagnosis: CAD Moderate Sedation PreProcedure Time 12:03 ASA Score 3 Airway Lungs Heart ASA score ASA 1: a normal healthy patient ASA 2: a patient with a mild systemic disease (mid diabetes, controlled hypertension, obesity ASA 3: a patient with a severe systemic disease that limits activity (angina, COPD, prior Myocardial infarction) ASA 4: a patient with an incapacitating disease that is a constant threat to life (CHF, renal failure) ASA 5: a moribund patient not expected to survive 24 hrs. (ruptured aneurysm) ASA 6: a declared brain- patient whose organs are being harvested. For emergent operations, add the letter E after the classification Mallampati Classification Grade 3 Sedation Plan Analgesia, Amnesia, Plan communicated to team members, Discussed options with patient/fam, Discussed risks with patient/fam The patient is an appropriate candidate to undergo the planned procedure, sedation, and anesthesia. The patient immediately re-assessed prior to indication. EMILEE RODRÍGUEZ MD Feb 23, 2023 12:03
[2023-02-23] MEDS ORDERED: diphenhydrAMINE INJ 50 MG/ML VIAL ONE (12:09)
[2023-02-23] MEDS ORDERED: VERAPAMIL 5 MG/2 ML (CALAN) VIAL IV ONE (12:09)
[2023-02-23] MEDS ORDERED: MIDAZOLAM INJ 5 MG/5 ML VIAL ONE (12:09)
[2023-02-23] MEDS ORDERED: NITRO DRIP 25000 MCG/D5W 0 ML IV ONE (12:09)
[2023-02-23] MEDS ORDERED: methylPREDNISolone INJ 125 MG VIAL ONE (12:09)
[2023-02-23] MEDS ORDERED: HEParin 1000 UNIT/ML (10ML VIAL) FOR BOLUS ONE (12:09)
[2023-02-23] MEDS ORDERED: fentaNYL INJECTION 100 MCG/2 ML VIAL ONE (12:09)
--- NOTE | 2023-02-23 13:06 | Discharge Inst-Post CATH ---
Discharge Inst-CATH/EP Problems Reviewed?: Yes Post Cardiac Cath/EP D/C Inst Follow Up/Plan Appointment with Dr. Feng's office in 4 weeks <b>CARDIAC CATH/EP PROCEDURE DISCHARGE INSTRUCTIONS</b> ACTIVITY * Go Home directly and rest. * Limit activity of the leg (or wrist if it was used) for 7 days including aerobics, swimming, jogging, bicycling, etc. * Restrict stair-climbing for 7 days if possible, if not, climb up with your non-cath leg, then bring together on the same step. * Avoid lifting, pushing, pulling or excessive movement of the affected extremity for 7 days. * Customary sexual activity may be resumed after 2 days-use caution not to use a position that strains or causes pain to the affected extremity. * No driving for 24 hours. * NO SMOKING. * Avoid straining for bowel movements for 7 days. * Gentle walking on level ground is allowed. * Returning to work will depend on the type of procedure and the results. Your doctor will discuss this with you. CALL YOUR DOCTOR FOR ANY OF THE FOLLOWING: *If bleeding from the puncture site occurs- Apply gentle pressure to site with clean cloth and call your doctor or EMS. * If a knot or lump forms under the skin, increases in size, or causes pain. * If bruising appears to be worsening or moving further down your leg instead of disappearing. * Temperature above 101 F. CARE OF YOUR GROIN INCISION; * Bruising or purple discoloration of the skin near the puncture site is common. * You may shower only, no bathtub bathing for 5 days. Be careful to avoid slipping as your leg may feel stiff. * If a closure device was used on your femoral artery, please see the attached guide regarding care of the device and your leg. * Leave dressing on FOR 24 hours. CARE OF YOUR WRIST INCISION; * Bruising or purple discoloration of the skin near the puncture site is common. * You may shower. * DO NOT submerge wrist. * Leave dressing on FOR 24 hours. EMILEE FENG MD Feb 23, 2023 13:06
--- NOTE | 2023-02-23 13:09 | Cardiac Cath Report ---
Cardiac Cath Report Physician (s)/Fruit Farmer (s) Physician EMILEE RODRÍGUEZ MD Pre-Procedure Diagnosis Pre-Procedure Diagnosis: CAD Post-Procedure Note Procedure Start Date: Feb 23, 2023 Name of Procedure: Left heart catheterization Findings/Procedure Note PROCEDURE NOTE: 57-year-old lady with history of hypertension, hyperlipidemia, has been having chest pain, had an abnormal stress test, scheduled for cardiac catheterization possible PTCA. After explaining the procedure to the patient, all pros and cons were explained, all questions were answered. The patient signed the consent and then she was placed in the cardiac catheterization laboratory. Groin was prepped in SL fashion local anesthesia was used. Sheath placed in the right femoral artery, Tracy left catheter was advanced to the left coronary system, angiogram done, Tracy right was prolapsed to the left ventricular cavity, pressure was measured, pullback LV to aorta was done, engage the right coronary artery and angiogram was done. At the end of the procedure the sheath was removed. Closure device was deployed FINDINGS: Hemodynamics LV 135/14, end-diastolic pressure of 14 Aorta 135/88 mean of 110 ANATOMY: Left Main is free of obstructive disease Left Anterior Descending is tortuous artery with no obstructive disease Left Circumflex is dominant artery with no obstructive disease Right Coronary Artery is moderate in size no obstructive disease LV Gram was not done, pressure was measured CONCLUSION: Nonobstructive disease in the coronary system Slightly tortuous LAD with small vessel disease distally Normal left ventricular end-diastolic pressure DISCUSSION AND RECOMMENDATION: No intervention is warranted, medical therapy is recommended Anesthesia Type: Conscious Sedation Estimated blood loss (mL): 10 ml Contrast Amount: 28 ml Total Radiation Dose: 516 mGy Post-Procedure Diagnosis Post-operative diagnosis: Chest pain Coronary artery disease Hypertension Hyperlipidemia EMILEE RODRÍGUEZ MD Feb 23, 2023 13:09
[2023-02-23] MEDS ORDERED: PATIENT MAY USE OWN MEDS, ALL PO SCH (13:15)
== END 2023-02-23 17:50 | disposition home or self-care (01) ==
LOC: CATH 10:37 → EDSTATUS 13:00 → SDC 13:38 → CATH 13:38 → SDC 17:50
PROVIDERS: ATTEND Internal Medicine Cardiovascular Disease
DX: I25.10 Atherosclerotic heart disease of native coronary artery without angina pectoris (principal); I10 Essential (primary) hypertension; I77.1 Stricture of artery; G89.29 Other chronic pain; M25.512 Pain in left shoulder; M25.511 Pain in right shoulder; M54.2 Cervicalgia; K21.9 Gastro-esophageal reflux disease without esophagitis; I65.23 Occlusion and stenosis of bilateral carotid arteries; E87.6 Hypokalemia; E11.9 Type 2 diabetes mellitus without complications; D89.89 Other specified disorders involving the immune mechanism, not elsewhere classified; J45.909 Unspecified asthma, uncomplicated; E66.09 Other obesity due to excess calories; E78.2 Mixed hyperlipidemia; Z28.310 Unvaccinated for COVID-19; Z68.41 Body mass index [BMI] 40.0-44.9, adult; Z79.84 Long term (current) use of oral hypoglycemic drugs; Z79.899 Other long term (current) drug therapy
CPT/HCPCS: 71045; 80053; 81000; 85027; 85610; 85730; 87081; 87088; 93005; 93458; C1760; C1894; 36415